=== PATIENT | male | born 1940 | race Hispanic/Latino ===

== ENCOUNTER 2017-01-18 06:10 | Day surgery (SDC) | payer BC, MEDICARE ==
[2017-01-18 06:11] VITALS: BMI 34.8
[2017-01-18] MEDS ORDERED: Phenylephrine 10 mg/ml Inj ONE (06:24)
[2017-01-18] MEDS ORDERED: Lidocaine 2% Inj (20ml) ONE (06:24)
[2017-01-18] MEDS ORDERED: Iodixanol 320 MG/ML 200 ML BOTTLE IV ONE ×2 (06:25→09:28)
[2017-01-18] MEDS ORDERED: Nitroglycerin 50mg in D5W 50 MG/250 ML BOTTLE IV ONE (06:25)
[2017-01-18] MEDS ORDERED: Iodixanol 320 MG/ML 100 ML BOTTLE IV ONE (06:25)
--- NOTE | 2017-01-18 06:29 | ED PDOC ---
Arrival/HPI - General Chief Complaint: Lower Extremity Problem/Injury Time Seen by Provider: 01/18/17 06:22 - History of Present Illness Narrative History of Present Illness (Text): 01/18/17 06:25 This is a 77 year old male with PMHx DM, ESRD on HD, PVD who came in sent by Dr. Womack for elective vascular procedure on his right lower extremity. Patient has been complaining of right leg pain for an unspecified amount of time. Patient currently denies subjective fevers, chills, chest pain, SOB, abdominal pain, dysuria. (Dayron Epps) Past Medical History - Provider Review Nursing Documentation Reviewed: Yes - Cardiac Hx Hypertension: Yes - Pulmonary Hx Chronic Obstructive Pulmonary Disease (COPD): Yes (IN THE PAST) - Neurological Hx Neurological Disorder: No - HEENT Hx HEENT Disorder: Yes Hx Cataracts: Yes Other/Comment: double vision to the left eye that is patched for saftey - Renal Hx Renal Disorder: Yes - Endocrine/Metabolic Hx Diabetes Mellitus Type 2: Yes - Hematological/Oncological Hx Blood Disorders: No - Integumentary Hx Dermatological Disorder: Yes (swollen left hand) - Musculoskeletal/Rheumatological Hx Musculoskeletal Disorders: Yes Hx Back Pain: Yes (LUMBAR) Hx Osteoarthritis: Yes - Gastrointestinal Hx Gastrointestinal Disorders: No - Genitourinary/Gynecological Hx Genitourinary Disorders: Yes Hx Prostate Problems: Yes - Psychiatric Hx Psychophysiologic Disorder: No Hx Substance Use: No - Surgical History Hx Cataract Extraction: Yes (RT.EYE) Hx Vascular Surgery: Yes (A/V FISTULA LEFT ARM) Hx Vascular Access Device: Yes (DIALYSIS ACCESS) - Anesthesia Hx Anesthesia: Yes Hx Anesthesia Reactions: No Hx Malignant Hyperthermia: No - Suicidal Assessment Feels Threatened In Home Enviroment: No Family/Social History - Physician Review Nursing Documentation Reviewed: Yes Family/Social History: No Known Family HX Smoking Status: Never Smoked Hx Alcohol Use: Yes (occasional) Hx Substance Use: No Allergies/Home Meds Allergies/Adverse Reactions: Allergies No Known Allergies Allergy (Verified 09/28/16 07:38) Home Medications: Home Meds Medication Instructions Recorded Confirmed Aspirin [Aspirin EC] 325 mg PO DAILY 01/18/17 01/18/17 Atorvastatin [Lipitor] 40 mg PO HS 01/18/17 01/18/17 Calcium Acetate [Phoslo] 667 mg PO TID 01/18/17 01/18/17 Carvedilol [Coreg] 25 mg PO BID 01/18/17 01/18/17 Cholecalciferol (Vitamin D3) 400 unit PO DAILY 01/18/17 01/18/17 [Vitamin D-400] Donepezil [Aricept] 10 mg PO HS 01/18/17 01/18/17 Hydralazine HCl 100 mg PO BID 01/18/17 01/18/17 Losartan [Cozaar] 100 mg PO DAILY 01/18/17 01/18/17 Memantine [Namenda] 5 mg PO DAILY 01/18/17 01/18/17 [place]-3 Fatty Acids/Fish Oil [Fish 1,000 mg PO BID 01/18/17 01/18/17 Oil 1,000 mg Capsule] Tamsulosin [Flomax] 0.4 mg PO DAILY 01/18/17 01/18/17 amLODIPine [Norvasc] 10 mg PO DAILY 01/18/17 01/18/17 Review of Systems - Review of Systems Constitutional: Normal. absent: Fevers Eyes: Normal ENT: Normal Respiratory: Normal. absent: SOB Cardiovascular: Normal. absent: Chest Pain Gastrointestinal: Normal. absent: Abdominal Pain Genitourinary Male: Normal. absent: Dysuria Musculoskeletal: Other (right leg pain) Skin: Normal Neurological: Normal Endocrine: Normal Hemo/Lymphatic: Normal Psychiatric: Normal Physical Exam Vital Signs Reviewed: Yes Temperature: Afebrile Blood Pressure: Normal Pulse: Bradycardic Respiratory Rate: Normal Appearance: Positive for: Comfortable Pain Distress: None Mental Status: Positive for: Alert and Oriented X 3 - Systems Exam Head: Present: Atraumatic, Normocephalic Pupils: Present: PERRL Extroacular Muscles: Present: EOMI Conjunctiva: Present: Normal Mouth: Present: Moist Mucous Membranes Neck: Present: Normal Range of Motion Respiratory/Chest: Present: Clear to Auscultation, Good Air Exchange. No: Accessory Muscle Use Cardiovascular: Present: Normal S1, S2 Abdomen: Present: Distention, Normal Bowel Sounds. No: Tenderness Upper Extremity: Present: Edema. No: NORMAL PULSES (diminished) Lower Extremity: Present: Edema (pitting), Other (amputation of left third toe) . No: CALF TENDERNESS, NORMAL PULSES (diminished) Neurological: Present: GCS=15, CN II-XII Intact Skin: Present: Warm, Dry. No: Rashes Medical Decision Making - EKG Interpretation Interpreted by ED Physician: Yes Type: 12 lead EKG ED Course and Treatment: 01/18/17 06:32 CBC, CMP, Coags, Portable CXR, EKG 01/18/17 06:52 EKG showed sinus bradycardia with rate 46 with prolonged VT interval and prolonged QTc 01/18/17 07:13 Dr. Womack contacted and requested admission to same day surgery. (Dayron Epps) - Lab Interpretations Lab Results: 01/18/17 06:30 01/18/17 06:30 Lab Results 01/18/17 06:30: Sodium 142, Potassium 4.3, Chloride 100, Carbon Dioxide 28, Anion Gap 18, BUN 59 H, Creatinine 6.1 H, Est GFR ( Amer) 11, Est GFR ( Non-Af Amer) 9, Random Glucose 140 H, Calcium 8.4, Total Bilirubin 0.6, AST 23, ALT 27, Alkaline Phosphatase 70, Total Protein 6.6, Albumin 3.8, Globulin 2.8, Albumin/Globulin Ratio 1.4 01/18/17 06:30: PT 11.7, INR 1.08, APTT 31.0 H 01/18/17 06:30: WBC 6.1 D, RBC 3.48 L, Hgb 9.8 L, Hct 30.7 L, MCV 88.2, MCH 28.2, MCHC 31.9, RDW 15.7 H, Plt Count 137, MPV 11.4 H, Gran % 64.1, Lymph % ( Auto) 23.7, [place] % (Auto) 9.7 H, Eos % (Auto) 2.0, Baso % (Auto) 0.5, Gran # 3.89, Lymph # 1.4, [place] # 0.6, Eos # 0.1, Baso # 0.03 - RAD Interpretation Radiology Orders: 01/18/17 06:23 CHEST PORTABLE [RAD] Stat 01/18/17 07:10 CAR PERIPHERAL VASCULAR ORDER [VASCULAR] Stat - Medication Orders Current Medication Orders: Ondansetron HCl (Zofran Inj) 4 mg IVP ONCE PRN PRN Reason: Nausea/Vomiting Oxycodone/Acetaminophen (Percocet 5/325 Mg Tab) 1 tab PO Q4H PRN PRN Reason: Pain, moderate (4-7) Stop: 01/21/17 12:20 Discontinued Medications Atropine Sulfate (Atropine) Confirm Administered Dose 1 mg .ROUTE .STK-MED ONE Stop: 01/18/17 06:25 Fentanyl (Fentanyl) Confirm Administered Dose 100 mcg .ROUTE .STK-MED ONE Stop: 01/18/17 07:08 Fentanyl (Fentanyl) Confirm Administered Dose 100 mcg .ROUTE .STK-MED ONE Stop: 01/18/17 07:39 Fentanyl (Fentanyl) Confirm Administered Dose 100 mcg .ROUTE .STK-MED ONE Stop: 01/18/17 09:37 Fentanyl (Fentanyl) Confirm Administered Dose 100 mcg .ROUTE .STK-MED ONE Stop: 01/18/17 11:25 Heparin Sodium (Porcine) (Heparin) Confirm Administered Dose 10,000 units .ROUTE .STK-MED ONE Stop: 01/18/17 06:25 Heparin Sodium (Porcine) (Heparin) Confirm Administered Dose 10,000 units .ROUTE .STK-MED ONE Stop: 01/18/17 10:55 Home Med (*Refrigerator Open) Confirm Administered Dose 1 unit XX .STK-MED ONE Stop: 01/18/17 13:25 Home Med (*Refrigerator Open) Confirm Administered Dose 1 unit XX .STK-MED ONE Stop: 01/18/17 13:28 Nitroglycerin/Dextrose (Nitroglycerin 50 Mg/250 Ml D5w) Confirm Administered Dose 50 mg in 250 mls @ ud IV .STK-MED ONE Stop: 01/18/17 06:26 Heparin Sodium (Porcine) (Heparin 1000 Units/500 Ml Ns) Confirm Administered Dose 1,500 mls @ ud IV .STK-MED ONE Stop: 01/18/17 06:26 Heparin Sodium (Porcine) (Heparin 1000 Units/500 Ml Ns) Confirm Administered Dose 500 mls @ ud IV .STK-MED ONE Stop: 01/18/17 08:24 Iodixanol (Visipaque 320 Mg/Ml 100 Ml) Confirm Administered Dose 200 ml IV .STK- MED ONE Stop: 01/18/17 06:26 Iodixanol (Visipaque 320 Mg/Ml 200 Ml) Confirm Administered Dose 200 ml IV .STK- MED ONE Stop: 01/18/17 06:26 Iodixanol (Visipaque 320 Mg/Ml 200 Ml) Confirm Administered Dose 200 ml IV .STK- MED ONE Stop: 01/18/17 09:29 Lidocaine HCl (Lidocaine 2% 20ml Vial) Confirm Administered Dose 20 ml .ROUTE .STK-MED ONE Stop: 01/18/17 06:25 Midazolam HCl (Versed Inj) Confirm Administered Dose 2 mg .ROUTE .STK-MED ONE Stop: 01/18/17 07:07 Midazolam HCl (Versed Inj) Confirm Administered Dose 2 mg .ROUTE .STK-MED ONE Stop: 01/18/17 07:38 Midazolam HCl (Versed Inj) Confirm Administered Dose 2 mg .ROUTE .STK-MED ONE Stop: 01/18/17 09:37 Phenylephrine HCl (Phenylephrine Inj) Confirm Administered Dose 10 mg .ROUTE .STK-MED ONE Stop: 01/18/17 06:25 Verapamil HCl (Verapamil Inj) Confirm Administered Dose 5 mg IVP .STK-MED ONE Stop: 01/18/17 11:32 Disposition/Present on Arrival - Present on Arrival Any Indicators Present on Arrival: No History of DVT/PE: No History of Uncontrolled Diabetes: Yes Urinary Catheter: No History of Decub. Ulcer: No History Surgical Site Infection Following: None - Disposition Have Diagnosis and Disposition been Completed?: Yes Disposition Time: 06:45 - Disposition Diagnosis: Peripheral vascular disease Disposition: HOME/ ROUTINE Patient Problems: Current Active Problems Problem Status Onset Peripheral vascular disease Acute Condition: FAIR
[2017-01-18] MEDS ORDERED: Sodium Chloride 0.9% 1,000 ML IV SCH (06:30)
[2017-01-18 06:59] LABS: INR 1.08 (0.93-1.08)
[2017-01-18 07:03] LABS: ALB/GLOB RATIO 1.4 (1.1-1.8); BILIRUBIN,TOTAL 0.6 mg/dL (0.2-1.3); CALCIUM 8.4 mg/dL (8.4-10.5); POTASSIUM 4.3 mmol/L (3.6-5.0); TOTAL PROTEIN 6.6 g/dL (5.8-8.3)
[2017-01-18] MEDS ORDERED: Midazolam 2 MG/2 ML VIAL ONE ×3 (07:06→09:36)
[2017-01-18 07:09] LABS: BASO # 0.03 K/mm3 (0.0-2.0); BASO % 0.5 % (0.0-3.0); EOS # 0.1 (0.0-0.7); GRAN # 3.89 (1.4-6.5); GRAN % 64.1 % (50.0-68.0); HEMATOCRIT 30.7 % (42.0-52.0); LYMPH # 1.4 (1.2-3.4); LYMPH % 23.7 % (22.0-35.0); MEAN CELL VOLUME 88.2 fl (80.0-105.0); MEAN CORPUSCULAR HEMOGLOBIN 28.2 pg (25.0-35.0); MEAN CORPUSCULAR HGB CONC 31.9 g/dl (31.0-37.0); MEAN PLATELET VOLUME 11.4 fl (7.0-11.0); MONO # 0.6 (0.1-0.6); MONO % 9.7 % (1.0-6.0); RED CELL DISTRIBUTION WIDTH 15.7 % (11.5-14.5); WHITE BLOOD COUNT 6.1 10^3/ul (4.5-11.0)
--- NOTE | 2017-01-18 08:47 | RAD ---
HISTORY: pre op COMPARISON: 05/12/2014 FINDINGS: LUNGS: No active pulmonary disease. PLEURA: No significant pleural effusion identified, no pneumothorax apparent. CARDIOVASCULAR: Mild cardiomegaly. Mild vascular congestion OSSEOUS STRUCTURES: No significant abnormalities. VISUALIZED UPPER ABDOMEN: Normal. OTHER FINDINGS: None. IMPRESSION: Mild vascular congestion
--- NOTE | 2017-01-18 10:48 | CARD ---
APPROVED REPORT EKG Measurement Heart [id number] <Conclusion> Sinus Rythm. Progressive Prolongation of [place] Interval with successive Beats Suggestive of [place] Type I Block. Septal infarct, age undetermined Prolonged QT
[2017-01-18] MEDS ORDERED: Oxycodone/Acetaminophen 5/325 mg Tab PO PRN (12:19)
[2017-01-18 14:46] VITALS: O2SAT 94
[2017-01-18 19:52] VITALS: BP 127/50; PULSE 60; RESP 20; TEMP 98
--- NOTE | 2017-01-18 21:40 | VASCULAR ---
PROCEDURE: 1. Abdominal aortogram and bilateral lower extremity runoff with right selective views. 2. Distal right posterior tibial artery angioplasty. HISTORY: Severe peripheral vascular disease. End-stage renal disease. Digital gangrene right foot. PHYSICIAN(S): Yong Womack M.D. TECHNIQUE: The relative risks and indications of the procedure were explained to the patient and consent obtained. The patient was placed supine on the arteriogram table and the left groin prepped and draped in the usual sterile fashion. Conscious sedation and monitoring were provided throughout the procedure by a nurse. Via a left common femoral artery approach, a 5 [place] sheath was placed in the left groin. Through the sheath and over a guidewire, a 5 [place] flush catheter was placed in the abdominal aorta at the level of the renal arteries and a PA DSA abdominal aortogram performed. The catheter was pulled down to the aortic bifurcation and bilateral oblique DSA pelvic arteriograms performed. Overlapping bilateral lower extremity DSA arteriograms were obtained from the inguinal ligaments to the ankles. A 0.035 angled Glidewire was advanced over the bifurcation and placed in the distal right SFA.. With some difficulty, a 6 [place] 65 cm sheath was placed in the proximal right SFA. Heparin 5000 units IV and nitroglycerin in 250 mcg aliquots were given. The short segment occlusion of the terminal right posterior tibial artery was crossed rather easily with an angled Glidewire. Unfortunately there was 2nd tandem lesion in the plantar arch that was very difficult across due to calcification and tortuosity. Various 0.014 and 0 0.018 guidewire were attempted. Finally a a 0.018 the- 18 guidewire was placed in the plantar arch. The distal left posterior tibial artery was dilated with 3.0 and 3.5 mm balloons. Plantar arch was dilated with 2.5 mm balloons. A good angiographic result was obtained and no stent was placed. Completion angiograms were obtained. The sheath was removed hemostasis obtained. The patient tolerated the procedure well. FINDINGS: Extensive vascular calcification is present. The main renal arteries are patent. The nephrograms are not opacified, consistent with the patient's history for dialysis. The infrarenal abdominal aorta is patent. Aortic bifurcation is patent. The common and external iliac arteries are very tortuous and widely patent. Slow antegrade flow is seen. The internal iliac arteries are patent bilaterally. Right lower extremity: The right common femoral artery is patent with posterior calcification.. The right profunda femoral artery is patent. The right superficial femoral artery is calcified and patent without a radiographically significant stenosis.. The right popliteal artery is calcified and patent. There is severe right trifurcation and tibial occlusive disease. The right anterior tibial and peroneal arteries are occluded proximally. The right posterior tibial artery is the predominant supply to the foot. Is a short segment occlusion of the distal right posterior tibial artery. There is severe right pedal occlusive disease. The dorsalis pedis artery is not opacified. Collaterals are present. Left lower extremity: Left common femoral artery is patent with posterior plaque.. The left profunda femoral artery is patent. The left superficial femoral artery is calcified and patent.. The left popliteal artery is patent. There is severe left tibial occlusive disease. There is a proximal take-off to the left anterior tibial artery. The left posterior tibial and peroneal arteries are occluded proximally. There is severe diffuse disease of the mid and distal left anterior tibial artery. IMPRESSION: 1.Severe bilateral tibial and pedal occlusive disease. 2. Successful terminal right posterior tibial artery angioplasty.
--- NOTE | 2017-01-19 22:19 | CON ---
DATE: 01/18/2017 REASON FOR CONSULTATION: End-stage renal disease, need for dialysis, status post angiogram requiring a lot of dye. HISTORY OF PRESENTING ILLNESS: A 77-year-old male, previously unknown to me, is seen in the same-day surgery section. The patient recently had an angiogram to evaluate for peripheral vascular disease, because of gangrene of his right toe. He was found to have severe bilateral tibial and pedal occlusive disease. He had successful terminal right posterior tibial artery angioplasty. The patient denies any chest pain, shortness of breath at present. He denies any abdominal pain. He denies any nausea, vomiting. He denies any chest tightness. His blood pressure is 145/85. He appears comfortable. PAST MEDICAL AND SURGICAL HISTORY: Longstanding hypertension; peripheral artery disease; end-stage renal disease, hemodialysis Sunday, and Sunday for the last 3 years; AV fistula, no history of diabetes. FAMILY HISTORY: Diabetes in both parents. SOCIAL HISTORY: Ex-smoker, no alcohol use, no IV drug abuse. ALLERGIES: NO KNOWN DRUG ALLERGIES. MEDICATIONS AT HOME: Hydralazine 100 b.i.d., PhosLo, losartan 100 daily, Coreg 25 b.i.d., amlodipine 10 mg daily, Namenda, Aricept, Lipitor, aspirin, Flomax. REVIEW OF SYSTEMS: All systems are reviewed, pertinent positives as mentioned in the history of presenting illness, rest unremarkable. PHYSICAL EXAMINATION: GENERAL EXAMINATION: Elderly male lying in bed in the same-day surgery. VITAL SIGNS: Blood pressure 145/54, heart rate 51, respiratory rate 18, temperature 97.2. HEENT: Normocephalic, atraumatic. NECK: Supple, no JVD. LUNGS: Bilateral equal entry, bilaterally equal expansion, no rales. CARDIAC: S1, S2, regular rhythm, no murmur, no rub. ABDOMEN: Obese, distended, soft, nontender, bowel sounds present. EXTREMITIES: Dressing of the right foot. LABORATORY DATA: WBC 6.1, hemoglobin 9.8, hematocrit 30.7, platelets 137. Sodium 142, potassium 4.3, chloride 100, CO2 of 28, BUN 59, creatinine 6.1, glucose 140, calcium 8.4, AST 23, ALT 27. ASSESSMENT AND PLAN: 1. Peripheral arterial disease, status post angiogram, status post angioplasty of the right foot. 2. Hypertension. 3. End-stage renal disease. 4. Anemia of chronic kidney disease. 5. Hypocalcemia. 6. Secondary hyperparathyroidism. PLAN: Dialysis today. The patient is on dialysis on Sunday, and Sunday. He has received a large dose of dye. Recommend dialysis prior to discharge, 4 hours, potassium 2, calcium 2.5. Ultrafiltration to drive rate. Case discussed with dialysis staff. Thank you for the courtesy of this consultation. Yadira Fox MD
== END 2017-01-18 21:30 | disposition home or self-care (01) ==
LOC: ED 06:10 → SDSVAS 07:12
PROVIDERS: ATTEND Radiology Vascular & Interventional Radiology
DX: E11.52 Type 2 diabetes mellitus with diabetic peripheral angiopathy with gangrene (principal); N18.6 End stage renal disease; I12.0 Hypertensive chronic kidney disease with stage 5 chronic kidney disease or end stage renal disease; E11.22 Type 2 diabetes mellitus with diabetic chronic kidney disease; Z99.2 Dependence on renal dialysis; Z79.82 Long term (current) use of aspirin; Z87.891 Personal history of nicotine dependence
CPT/HCPCS: 37228; 71010; 75625; 75716; 80053; 85025; 85610; 85730; 93005; 99152; 99153; 99283; C1725 ×9; C1760 ×3; C1769 ×10; C1887 ×2; C1894 ×2; J1644 ×2; J2250; J2405; J3010; J7030; Q9967

== ENCOUNTER 2017-07-04 14:22 | Inpatient (IN) | payer MEDICARE, BC ==
[2017-07-04 14:30] VITALS: BMI 40.7
--- NOTE | 2017-07-04 14:44 | ED PDOC ---
Arrival/HPI - General Chief Complaint: Shortness Of Breath Time Seen by Provider: 07/04/17 14:29 Historian: Patient, Spouse () - Critical Care Critical Care Minutes: 30 minutes - History of Present Illness Narrative History of Present Illness (Text): 07/04/17 14:25 A 77 year old male, whose past medical history includes renal failure (dialysis session T/Th/Sun, last session yesterday), diabetes, hypertension, and hyperlipidemia, is brought in by ambulance and accompanied by , presents to the emergency department for shortness of breath. Patient's reports yesterday patient began experiencing sore throat and throat pain. Due to these issues, patient had difficulty swallowing and was unable to takes his medications. Patient's states she called PMD and was directed to the ER. Patient denies any chest pain, fever, or any other complaints at this time. Patient at this time is currently unable to speak clearly. Patient on 88% room air. Respiratory team called for respiratory BiPAP. PMD: Dr. Itz Martines Symptom Onset: Sudden Symptom Course: Unchanged Past Medical History - Provider Review Nursing Documentation Reviewed: Yes - Infectious Disease Hx of Infectious Diseases: None - Cardiac Hx Cardiac Disorders: Yes Hx Hypertension: Yes - Pulmonary Hx Respiratory Disorders: Yes Hx Chronic Obstructive Pulmonary Disease (COPD): Yes (IN THE PAST) - Neurological Hx Neurological Disorder: No - HEENT Hx HEENT Disorder: Yes Hx Cataracts: Yes Other/Comment: double vision to the left eye that is patched for saftey - Renal Hx Renal Disorder: Yes Type of Dialysis Access: L upper arm Date of Last Dialysis Treatment: 07/03/17 - Endocrine/Metabolic Hx Endocrine Disorders: Yes Hx Diabetes Mellitus Type 2: Yes - Hematological/Oncological Hx Blood Disorders: No - Integumentary Hx Dermatological Disorder: Yes (swollen left hand) - Musculoskeletal/Rheumatological Hx Musculoskeletal Disorders: Yes Hx Back Pain: Yes (LUMBAR) Hx Osteoarthritis: Yes Other/Comment: neuropathy - Gastrointestinal Hx Gastrointestinal Disorders: No - Genitourinary/Gynecological Hx Genitourinary Disorders: Yes Hx Prostate Problems: Yes - Psychiatric Hx Psychophysiologic Disorder: No Hx Substance Use: No - Surgical History Hx Cataract Extraction: Yes (RT.EYE) Hx Vascular Surgery: Yes (A/V FISTULA LEFT ARM) Hx Vascular Access Device: Yes (DIALYSIS ACCESS) - Anesthesia Hx Anesthesia: Yes Hx Anesthesia Reactions: No Hx Malignant Hyperthermia: No - Suicidal Assessment Feels Threatened In Home Enviroment: No Family/Social History - Physician Review Nursing Documentation Reviewed: Yes Family/Social History: No Known Family HX Smoking Status: Never Smoked Hx Alcohol Use: Yes (occasional) Hx Substance Use: No Allergies/Home Meds Allergies/Adverse Reactions: Allergies No Known Allergies Allergy (Verified 07/04/17 14:29) Home Medications: Home Meds Medication Instructions Recorded Confirmed Aspirin [Aspirin EC] 325 mg PO DAILY 01/18/17 07/04/17 Atorvastatin [Lipitor] 40 mg PO HS 01/18/17 07/04/17 Calcium Acetate [Phoslo] 667 mg PO TID 01/18/17 07/04/17 Carvedilol [Coreg] 25 mg PO BID 01/18/17 07/04/17 Cholecalciferol (Vitamin D3) 400 unit PO DAILY 01/18/17 07/04/17 [Vitamin D-400] Donepezil [Aricept] 10 mg PO HS 01/18/17 07/04/17 Hydralazine HCl 100 mg PO BID 01/18/17 07/04/17 Losartan [Cozaar] 100 mg PO DAILY 01/18/17 07/04/17 Memantine [Namenda] 5 mg PO DAILY 01/18/17 07/04/17 [place]-3 Fatty Acids/Fish Oil [Fish 1,000 mg PO BID 01/18/17 07/04/17 Oil 1,000 mg Capsule] Tamsulosin [Flomax] 0.4 mg PO DAILY 01/18/17 07/04/17 amLODIPine [Norvasc] 10 mg PO DAILY 01/18/17 07/04/17 Insulin Glargine,Hum.rec.anlog 0 units SQ DAILY 07/04/17 07/04/17 [Luis Hilton] Review of Systems - Review of Systems Constitutional: absent: Fevers ENT: Sore Throat, Other (throat pain) Respiratory: SOB (patient's believes patient is experiencing shortness of breath) Cardiovascular: absent: Chest Pain (according to patient) Physical Exam Vital Signs Reviewed: Yes Vital Signs Temp Pulse Resp BP Pulse Ox 07/04/17 15:57 58 L 22 150/52 L 98 07/04/17 15:04 99.9 F H 07/04/17 14:37 178/100 H 07/04/17 14:32 81 20 170/100 H 88 L Blood Pressure: Hypertensive Pulse: Regular Respiratory Rate: Tachypneic Appearance: Positive for: Other (obese and drowsy) Pain Distress: None Mental Status: Positive for: Alert and Oriented X 3 - Systems Exam Mouth: Present: Normal Tounge (no tongue swelling noted) Pharnyx: Present: Normal. No: TONSILS ENLARGED, Peritonsilar Swelling, Other ( no visible swelling noted) Respiratory/Chest: Present: Rales (bilaterally), Rhonchi (bilaterally) Lower Extremity: No: Edema Skin: Present: Warm Medical Decision Making ED Course and Treatment: 07/04/17 14:30 Impression: 77 year old male brought in by ambulance for shortness of breath. Physical exam shows patient is tachypneic, obese and drowsy; rales and rhonchi bilaterally; negative lower extremity edema; normal throat exam (no visible swelling noted); normal tongue (no swelling noted). Differential Diagnosis included but are not limited to: CHF vs. Renal Fluid Overflow rule out Pneumonia vs. Influenza. Plan: -- EKG -- Chest X-ray -- Labs -- Lasix -- Venous Blood Gas -- Blood Culture -- Urine Culture -- Urinalysis -- Rapid Flu Test -- BiPAP Procedure -- Nasal Cannula O2 -- Reassess and disposition Prior Visits: Notes and results from previous visits were reviewed. Patient was last seen in the emergency department on Progress Notes: EKG: Ordered, reviewed, and independently interpreted the EKG. Rate : 69 BPM Rhythm : NSR Interpretation : PACs, Q-wave inferior leads. Comparison : No previous EKG for comparison. CXR Patient Name / ID : JULIENNE ANDERSON N / [id number] LUNGS: There is a dense alveolar infiltrate in the right lower lobe. There is also vascular congestion IMPRESSION: Right lower lobe pneumonia 07/04/17 16:00 Patient improving with BiPAP but still having symptoms. CXR showed RLL PNA and some vascular congestion. Treated with broad spectrum antibiotics with Zosyn and Vancomycin IV. Case discussed with Dr. Cleaning ICU, who will accept the patient to his service. CT head ordered that he will follow up. CT will be done prior to arrival to ICU. Case discussed with Dr. Whitman who recommended Dr. Duran for Cardiology. Dr. Fox was consulted for Renal as well. She came to evaluate patient and stated most likely will need DUF (dry ultra filtration). Family is at bedside and I explained plan for admission with them to the ICU. Patient was explained this as well. He is easily arousable to voice commands and tells me he is feeling better with BiPAP. - Critical Care Critical Care Minutes: 60 minutes - Lab Interpretations Lab Results: 07/04/17 14:30 07/04/17 14:30 Lab Results 07/04/17 15:45: pCO2 42, pO2 135.0 H, HCO3 30.6 H, ABG pH 7.47 H, ABG Total CO2 31.9 H, ABG O2 Saturation 97.9, ABG O2 Content 14.9 L, ABG Base Excess 6.3 H, ABG Hemoglobin 10.9 L, ABG Carboxyhemoglobin 1.5, POC ABG HHb (Measured) 2.1, ABG Methemoglobin 0.7, ABG O2 Capacity 15.2 L, Hgb O2 Saturation 95.7, FiO2 40.0 07/04/17 14:45: Influenza Typ A,B (EIA) Negative for flu a/b 07/04/17 14:32: POC Glucose (mg/dL) 85 07/04/17 14:30: Sodium 145, Chloride 99, Potassium 4.3, Carbon Dioxide 29, Anion Gap 21 H, BUN 42 H, Creatinine 5.7 H, Est GFR ( Amer) 12, Est GFR ( Non-Af Amer) 10, Random Glucose 100, Calcium 9.3, Phosphorus 3.5, Magnesium 2.1 , Total Bilirubin 0.9, AST 33, ALT 29, Alkaline Phosphatase 87, Lactate Dehydrogenase 592, Total Creatine Kinase 481 H, CK-MB (CK-2) 2.7, CK-MB (CK-2) % Cancelled, Troponin I 0.07 D, NT-Pro-B Natriuret Pep 24949 H, Total Protein 7.6, Albumin 4.3, Globulin 3.4, Albumin/Globulin Ratio 1.3 07/04/17 14:30: pO2 62 H, VBG pH 7.43, VBG pCO2 48.0, VBG HCO3 31.9 H, VBG Total CO2 33.4 H, VBG O2 Sat (Calc) 92.3 H, VBG Base Excess 6.4 H, VBG Potassium 4.3, Sodium 139.0, Chloride 102.0, Glucose 100, Lactate 1.2, FiO2 21.0 , Venous Blood Potassium 4.3 07/04/17 14:30: PT 13.3 H, INR 1.16 H, APTT 34.8 07/04/17 14:30: WBC 13.3 H D, RBC 4.33, Hgb 12.0 L D, Hct 38.5 L, MCV 88.9, MCH 27.7, MCHC 31.2, RDW 17.4 H, Plt Count 148, MPV 12.2 H, Gran % 85.9 H, Lymph % ( Auto) 7.4 L, [place] % (Auto) 6.5 H, Eos % (Auto) 0.0 L, Baso % (Auto) 0.2, Gran # 11.43 H, Lymph # (Auto) 1.0 L, [place] # (Auto) 0.9 H, Eos # (Auto) 0.0, Baso # ( Auto) 0.02 - RAD Interpretation Radiology Orders: 07/04/17 14:30 CHEST PORTABLE [RAD] Stat - Medication Orders Current Medication Orders: Acetylcysteine (Acetylcysteine 20%) 4 ml IH [id number] JERE Amlodipine Besylate (Norvasc) 10 mg PO DAILY JERE Aspirin (Ecotrin) 325 mg PO DAILY JERE Atorvastatin Calcium (Lipitor) 40 mg PO HS JERE Calcium Acetate (Phoslo) 667 mg PO TID JERE Carvedilol (Coreg) 25 mg PO BID JERE Donepezil HCl (Aricept) 10 mg PO HS JERE Heparin Sodium (Porcine) (Heparin) 5,000 units SC Q8H JERE PRN Reason: Protocol Last Admin: 07/04/17 16:58 Dose: 5,000 units Subcutaneous Administrations Document 07/04/17 16:58 [email or web address] (Rec: 07/04/17 16:58 [email or web address] [id number]) Injection Site MAR Injection Site Right Abdomen Charges for Administration # of Subcutaneous Administrations 1 Vancomycin HCl (Vancomycin 1gm) 1 gm in 250 mls @ 167 mls/hr IVPB STAT STA PRN Reason: Protocol Stop: 07/04/17 17:18 Nitroglycerin/Dextrose (Nitroglycerin 50 Mg/250 Ml D5w) 50 mg in 250 mls @ 1.5 mls/hr IV .Q24H PRN; Protocol; 5 MCG/MIN PRN Reason: BPS above 140 Doxycycline Hyclate 100 mg/ (Sodium Chloride) 100 mls @ 100 mls/hr IVPB Q12 JERE PRN Reason: Protocol Insulin Human Lispro (Humalog Low) 0 units SC AC JERE PRN Reason: Protocol Levalbuterol HCl (Xopenex) 0.63 mg IH [id number] JERE Losartan Potassium (Cozaar) 100 mg PO DAILY JERE Memantine (Namenda) 5 mg PO DAILY JERE Methylprednisolone (Solu-Medrol) 20 mg IVP Q12 JERE Non-Formulary Medication (Hydralazine Hcl [Hydralazine Hcl]) 100 mg PO BID JERE Non-Formulary Medication ([place]-3 Fatty Acids/Fish Oil [Fish Oil 1,000 Mg Capsule]) 1,000 mg PO BID JERE Pantoprazole Sodium (Protonix Inj) 40 mg IVP DAILY JERE Tamsulosin HCl (Flomax) 0.4 mg PO DAILY [facility] Vitamin D (Vitamin D 400 Intl Units Tab) intlu PO DAILY JERE Discontinued Medications Furosemide (Lasix) 40 mg IVP STAT STA Stop: 07/04/17 14:30 Last Admin: 07/04/17 14:37 Dose: 40 mg MAR Blood Pressure Document 07/04/17 14:37 [facility] (Rec: 07/04/17 14:38 [id number] Blood Pressure Blood Pressure (100/60-150/90) 178/100 IVP Administration Document 07/04/17 14:37 [facility] (Rec: 07/04/17 14:38 [id number]) Charges for Administration # of IVP Administrations 1 Piperacillin Sod/Tazobactam Sod (Zosyn 4.5 Gm In Ns 100ml) 4.5 gm in 100 mls @ 200 mls/hr IVPB STAT STA PRN Reason: Protocol Stop: 07/04/17 15:42 Last Admin: 07/04/17 16:58 Dose: 200 mls/hr eMAR Start Stop Document 07/04/17 16:58 [email or web address] (Rec: 07/04/17 16:58 [email or web address] [id number]) Intravenous Solution Start Date 02/28/18 Start Time 16:58 End Date 07/04/17 Nitroglycerin (Nitro-Bid 2% Oint) 1 ea TOP STAT STA Stop: 07/04/17 14:46 Last Admin: 07/04/17 14:50 Dose: 1 ea - Scribe Statement The provider has reviewed the documentation as recorded by the Jorgitoibe Yuli Patel Provider Scribe Attestation: All medical record entries made by the Scribe were at my direction and personally dictated by me. I have reviewed the chart and agree that the record accurately reflects my personal performance of the history, physical exam, medical decision making, and the department course for this patient. I have also personally directed, reviewed, and agree with the discharge instructions and disposition. Disposition/Present on Arrival - Present on Arrival Any Indicators Present on Arrival: Yes History of DVT/PE: No History of Uncontrolled Diabetes: Yes Urinary Catheter: No History of Decub. Ulcer: No History Surgical Site Infection Following: None - Disposition Have Diagnosis and Disposition been Completed?: Yes Diagnosis: End stage renal disease, Pneumonia, CHF (congestive heart failure) Disposition Time: 16:00 Patient Plan: Admission, ICU Condition: CRITICAL
[2017-07-04 14:45] LABS: BASO # 0.02 K/mm3 (0.0-2.0); BASO % 0.2 % (0.0-3.0); GRAN # 11.43 (1.4-6.5); GRAN % 85.9 % (50.0-68.0); LYMPH % 7.4 % (22.0-35.0); MEAN CELL VOLUME 88.9 fl (80.0-105.0); MEAN CORPUSCULAR HEMOGLOBIN 27.7 pg (25.0-35.0); MEAN CORPUSCULAR HGB CONC 31.2 g/dl (31.0-37.0); MEAN PLATELET VOLUME 12.2 fl (7.0-11.0); MONO # 0.9 (0.1-0.6); MONO % 6.5 % (1.0-6.0); RBC 4.33 10^6/uL (3.5-6.1); RED CELL DISTRIBUTION WIDTH 17.4 % (11.5-14.5); WHITE BLOOD COUNT 13.3 10^3/ul (4.5-11.0)
[2017-07-04] MEDS ORDERED: Nitroglycerin 2% Ointment Foilpak UD TOP STA (14:45)
[2017-07-04 14:46] LABS: VENOUS BLOOD GAS BASE EXCESS 6.4 mmol/L (0.0-2.0); VENOUS BLOOD GAS PO2 62 mm/Hg (30-55); VENOUS BLOOD PH 7.43 (7.32-7.43)
[2017-07-04 14:56] LABS: INR 1.16 (0.93-1.08); PARTIAL THROMBOPLASTIN TIME 34.8 Seconds (25.1-36.5); PROTHROMBIN TIME 13.3 SECONDS (9.4-12.5)
[2017-07-04 15:09] LABS: TROPONIN I 0.07 ng/mL
--- NOTE | 2017-07-04 15:10 | RAD ---
HISTORY: sob and cough r/o pna COMPARISON: 01/18/2017 FINDINGS: LUNGS: There is a dense alveolar infiltrate in the right lower lobe. There is also vascular congestion PLEURA: No significant pleural effusion identified, no pneumothorax apparent. CARDIOVASCULAR: Normal. OSSEOUS STRUCTURES: No significant abnormalities. VISUALIZED UPPER ABDOMEN: Normal. OTHER FINDINGS: None. IMPRESSION: Right lower lobe pneumonia
[2017-07-04] MEDS ORDERED: Piperacill/Tazo 4.5gm in NS 4.5 GM/100 ML BAG IVPB STA (15:13)
[2017-07-04 15:34] LABS: ALB/GLOB RATIO 1.3 (1.1-1.8); ALBUMIN 4.3 g/dL (3.0-4.8); CALCIUM 9.3 mg/dL (8.4-10.5); MAGNESIUM 2.1 mg/dL (1.7-2.2)
[2017-07-04 15:39] LABS: CK-MB 2.7 ng/mL (0.0-3.6)
[2017-07-04] MEDS ORDERED: Vancomycin 1gm in NS 250ml 1 GM/250 ML BAG IVPB STA (15:49)
[2017-07-04 15:51] LABS: ARTERIAL BLOOD GAS HCO3 30.6 mmol/L (21-28); ARTERIAL BLOOD GAS HEMOGLOBIN 10.9 g/dL (11.7-17.4); ARTERIAL BLOOD GAS O2 CAPACITY 15.2 mL/dl (16-24); ARTERIAL BLOOD GAS O2 CONTENT 14.9 ML/dl (15-23); ARTERIAL BLOOD GAS O2 SAT 97.9 % (95-98); ARTERIAL BLOOD GAS PCO2 42 mm/Hg (35-45); ARTERIAL BLOOD GAS PH 7.47 (7.35-7.45); ARTERIAL BLOOD GAS TCO2 31.9 mmol.L (22-28)
[2017-07-04] MEDS ORDERED: Nitroglycerin 50mg in D5W 50 MG/250 ML BOTTLE IV PRN (15:58)
[2017-07-04 17:02] LABS: ARTERIAL BLOOD GAS HCO3 30.5 mmol/L (21-28); ARTERIAL BLOOD GAS O2 SAT 96.7 % (95-98); ARTERIAL BLOOD GAS PCO2 40 mm/Hg (35-45); ARTERIAL BLOOD GAS PH 7.49 (7.35-7.45); ARTERIAL BLOOD GAS TCO2 31.7 mmol.L (22-28)
[2017-07-04] MEDS ORDERED: Non Formulary Medication (Hydralazine Hcl [Hydralazine Hcl] 100 MG) PO SCH (18:00)
[2017-07-04] MEDS ORDERED: Oseltamivir 6 MG/ML PO ONE (18:15)
--- NOTE | 2017-07-04 18:56 | CT ---
PROCEDURE: CT HEAD WITHOUT CONTRAST. HISTORY: ams r/o cva COMPARISON: None available. TECHNIQUE: Axial computed tomography images were obtained through the head/brain without intravenous contrast. Radiation dose: Total exam DLP = 1049.93 mGy-cm. This CT exam was performed using one or more of the following dose reduction techniques: Automated exposure control, adjustment of the mA and/or kV according to patient size, and/or use of iterative reconstruction technique. FINDINGS: HEMORRHAGE: No intracranial hemorrhage. BRAIN: No mass effect or edema. Probable old infarct involving left basal ganglia and will radiata. No evidence of acute infarct. Moderate periventricular white matter lucency consistent with chronic microvascular ischemic change. Mild diffuse atrophy VENTRICLES: Unremarkable. No hydrocephalus. CALVARIUM: Unremarkable. PARANASAL SINUSES: Unremarkable as visualized. No significant inflammatory changes. MASTOID AIR CELLS: Unremarkable as visualized. No inflammatory changes. OTHER FINDINGS: None. IMPRESSION: No evidence of acute infarct. No intracranial mass or hemorrhage. 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 Age related atrophy and chronic white matter ischemic change.
--- NOTE | 2017-07-04 19:06 | CT ---
PROCEDURE: CT Chest without contrast HISTORY: PNEUMONIA/CHF COMPARISON: None. TECHNIQUE: Contiguous axial images were obtained through the chest without intravenous contrast enhancement. Sagittal and coronal reconstructions were performed. Radiation dose (DLP): 852.54 mGy-cm. This CT exam was performed using one or more of the following dose reduction techniques: Automated exposure control, adjustment of the mA and/or kV according to patient size, and/or use of iterative reconstruction technique. FINDINGS: LUNGS: Extensive centrilobular pulmonary emphysema. Extensive right lower lobe consolidation. Patchy right middle lobe consolidation. There is probable subsegmental atelectasis in the left lower lobe. No pulmonary mass identified. MEDIASTINUM: Unremarkable thoracic aorta. No aneurysm. Cardiomegaly. Mitral annular calcification. No pericardial effusion. Dilated main pulmonary artery to approximately 3.4 cm diameter. No lymphadenopathy. PLEURA: Nonspecific dependent pleural thickening both lower lobes. No pleural effusion or pneumothorax. BONES: Mild thoracic dextroscoliosis. No acute fracture. UPPER ABDOMEN: Grossly unremarkable. OTHER FINDINGS: None. IMPRESSION: Multi lobar infiltrates, most extensive in the right lower lobe. Extensive centrilobular pulmonary emphysema. Cardiomegaly.
--- NOTE | 2017-07-04 19:19 | CP.PCM.HP ---
History of Present Illness - History of Present Illness History of Present Illness: Chief Complaint: Dysphagia, sore throat, cough HPI: Patient is a 77 yo man with PMH of ESRD on Sunday//Sunday hemodialysis, IDDM, CVA with mild expressive aphasia?, presenting to ED via EMS for respiratory distress. History obtained per the pts daughter secondary to respiratory distress. Patient was complaining of difficulty swallowing, sore throat, and cough worsening for two days. Yesterday evening, she stated patient said his throat was sore to the point he didn't want to eat dinner. He has a hx of mild chronic cough for years; however, 3 weeks ago he had a mild URI with productive cough. His was being treated for URI with antibiotics at that time. He took some cough syrup for this and had good resolution of symptoms 2 weeks ago. Patient's decided to leave work early to check on him, which is when she found him in bed shaking due to chills. She called EMS. EMS came to house, patient's O2 saturation was 77%, placed on nonrebreather, O2 sat went to 88% and was brought to the ED where he was placed on BiPAP which brought his O2 sat to ~94%. The pts daughter denies any recent issues with confusion, falls, headache, chest pain, dyspnea, or fever. No changes in his recent functional status. The pt has been on schedule with dialysis. 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 No EtOH. Lives with . FHx: hx of diabetes in mother and father. Daughter states that patient had kidney issues since he was a child. CT neck: Mild diffuse thickening of epiglottis and aryepiglottic folds, prominent pharyngeal vessel, cervical adenopathy, sinus disease CT chest:multi lobar infiltrates mainly in right lower lobe, extensive centrilobular pulmonary emphysema. cardiomegaly CT head:no acute infarct, probably old infarct of left basal ganglia/will radiata. Age related atrophy and chronic white matter ischemic change PEx: General: ill-appearing man with respiratory distress. On Bipap machine. HOB at 20 degrees. AOX3. Following commands. HEENT: normocephalic, atraumatic. No perioral cyanosis. Raspy voice. Mouth: tongue protrudes midline. Edentulous. No drooling noted. Marked marcoglossia. 1x3cm white plaque over L lateral aspect of tongue. Tongue hyperkeratotic in appearance. Pharynx: marked soft tissue swelling and hyperemia. Uvula swelling. Palette symmetrical. Unable to visualize posterior oropharynx. Neck: Trachea midline. Marked inspiratory and expiratory stridor on auscultation. Lungs: No accessory m. use. Transmitter breath sounds and stridor. Breath sounds diminished at bases bilaterally. Rhonchi present at R lung base. Diminished breath sounds at L lung base. Cardiac: Distant heart sounds. Abdomen: Abdominal diastasis noted. Abdomen soft, NT, ND. Normal active bowel sounds. Lower extremity: R DP pulse not palpable. Faint DP pulse palpated on L. 2+ pitting edema over LEs bilaterally. MSK: L foot s/p amputation of 3rd digit. Bandages present over chronic wounds 2nd and 4th digits. Neuro: pt follows commands. Moves extremities across midline spontaneously. Able to reposition himself in bed without difficulty. Present on Admission - Present on Admission Any Indicators Present on Admission: No Review of Systems - Review of Systems Review of Systems: Limited as patient is having difficult speaking Past Patient History - Infectious Disease Hx of Infectious Diseases: None - Past Medical History & Family History Past Medical History?: Yes - Past Social History Smoking Status: Never Smoked - CARDIAC Hx Cardiac Disorders: Yes Hx Hypertension: Yes - PULMONARY Hx Respiratory Disorders: Yes Hx Chronic Obstructive Pulmonary Disease (COPD): Yes (IN THE PAST) - NEUROLOGICAL Hx Neurological Disorder: No - HEENT Hx HEENT Problems: Yes Hx Cataracts: Yes Other/Comment: double vision to the left eye that is patched for saftey - RENAL Hx Chronic Kidney Disease: Yes Type of Dialysis Access: L upper arm Date of Last Dialysis Treatment: 07/03/17 - ENDOCRINE/METABOLIC Hx Endocrine Disorders: Yes Hx Diabetes Mellitus Type 2: Yes - HEMATOLOGICAL/ONCOLOGICAL Hx Blood Disorders: No - INTEGUMENTARY Hx Dermatological Problems: Yes (swollen left hand) - MUSCULOSKELETAL/RHEUMATOLOGICAL Hx Musculoskeletal Disorders: Yes Hx Back Pain: Yes (LUMBAR) Hx Osteoarthritis: Yes Other/Comment: neuropathy - GASTROINTESTINAL Hx Gastrointestinal Disorders: No - GENITOURINARY/GYNECOLOGICAL Hx Genitourinary Disorders: Yes Hx Prostate Problems: Yes - PSYCHIATRIC Hx Psychophysiologic Disorder: No Hx Substance Use: No - SURGICAL HISTORY Hx Cataract Extraction: Yes (RT.EYE) Hx Vascular Surgery: Yes (A/V FISTULA LEFT ARM) Hx Vascular Access Device: Yes (DIALYSIS ACCESS) - ANESTHESIA Hx Anesthesia: Yes Hx Anesthesia Reactions: No Hx Malignant Hyperthermia: No Meds Allergies/Adverse Reactions: Allergies Allergy/AdvReac Type Severity Reaction Status Date / Time No Known Allergies Allergy Verified 07/04/17 14:29 Results - Vital Signs Recent Vital Signs: Last Vital Signs Temp 99.9 F H 07/04/17 15:04 Pulse 62 07/04/17 18:20 Resp 18 07/04/17 18:20 BP 150/52 L 07/04/17 15:57 Pulse Ox 99 07/04/17 18:20 - Labs Result Diagrams: 07/05/17 05:30 07/04/17 14:30 Labs: Laboratory Results - last 24 hr 07/04/17 16:57 pCO2 40 pO2 82.0 HCO3 30.5 H ABG pH 7.49 H ABG Total CO2 31.7 H ABG O2 Saturation 96.7 ABG Base Excess 6.6 H ABG Potassium 4.0 Sodium 140.0 Chloride 106.0 Glucose 100 Lactate 0.8 FiO2 40.0 Pressure Support 5 Inspiratory BiPAP 10 Arterial Blood Potassium 4.0 Assessment & Plan - Assessment and Plan (Free Text) Assessment: Patient is a 77 yo man with PMH of ESRD on Sunday//Sunday hemodialysis, IDDM, CVA with mild expressive aphasia?, presenting to ED via EMS for respiratory distress found to have pneumonia and epiglottic/aryepiglottic swelling. Plan: Dyspnea secondary to epiglottic thickening -Patient currently on high flow oxygen with O2 sat ~95% -Xopenex, mucomyst -Admitted to ICU; doxycycline started as well as methlyprednisolone, nitroglycerin -Infectious disease consulted, merrem started -ENT consulted -Strep pneumo,legionella, ordered -MRSA screen -Urine, blood, sputum cultures ordered -Echocardiogram ordered -Aspiration precautions -Speech and swallow eval IDDM -Consistent carb diet -ISS-low -fingerstick qHS HTN -continue home Cozaar and norvasc -hydralazine Hyperlipidemia -continue lipitor ESRD -Nephrology consulted -continue calcium acetate Dementia -continue memantine, donepezil BPH -continue flomax DVT/GI ppx: Heparin/Protonix Case discussed and reviewed with Dr. Whitman
--- NOTE | 2017-07-04 19:54 | CT ---
EXAM: CT Neck Without Intravenous Contrast EXAM DATE/TIME: 07/04/2017 6:16 PM CLINICAL HISTORY: 77 years old, male; Signs and symptoms; Dysphagia / difficulty swallowing; Additional info: Dysphagia, hypoxia TECHNIQUE: Axial computed tomography images of the neck without intravenous contrast. All CT scans at this facility use one or more dose reduction techniques, viz.: automated exposure control; ma/kV adjustment per patient size (including targeted exams where dose is matched to indication; i.e. head); or iterative reconstruction technique. Coronal and sagittal reformatted images were created and reviewed. COMPARISON: There are no prior studies for comparison. FINDINGS: Brain: No acute abnormalities are seen in visualized portion of the brain. There are atrophic changes. Sinuses: There is partial opacification of the right maxillary sinus. There is minimal mucoperiosteal thickening in the left maxillary sinus. There is mucoperiosteal thickening in the frontal sinuses. Ears and mastoids: Middle ears and mastoids are unremarkable Orbits: There are no acute orbital abnormalities. Dental: There is streak artifact from dental fillings. Tonsils and adenoids: There is mild prominence of the pharyngeal tonsils. Adenoids and lingual tonsils are unremarkable. Deep facial spaces: Parapharyngeal spaces are symmetric. There is no retropharyngeal soft tissue swelling. Salivary glands: Parotid and submandibular glands are unremarkable. Airway: Motion limits evaluation of the airway. There is mucosal debris in the airway. There is no upper airway obstruction. There is thickening of the epiglottis and aryepiglottic folds. Subglottic trachea is unremarkable Thyroid: Thyroid is not optimally demonstrated. Vascular: There are vascular calcifications. Nodes: There is shotty cervical adenopathy bilaterally. Lung apices: There are centrilobular emphysematous changes at the lung apices. Motion limits evaluation. Bony structures: Bony structures are osteopenic. There degenerative changes in the spine. No acute fractures are visualized. IMPRESSION: Mild diffuse thickening of the epiglottis and aryepiglottic folds; prominent pharyngeal vessel; shotty cervical adenopathy; sinus disease Additional nonemergent findings as described above.
[2017-07-04] MEDS: Acetylcysteine 20% Inhal Soln (4ml) IH SCH (21:31)
[2017-07-04] MEDS: Levalbuterol 0.63 MG/3 ML Inhal Soln UD IH SCH (21:32)
[2017-07-04] MEDS ORDERED: Meropenem 500 MG in Sodium Chloride 0.9% 50 ML IVPB SCH (22:00)
[2017-07-04] MEDS: Aspirin 325 mg EC Tablets PO SCH (22:36)
[2017-07-04] MEDS: MethylPREDNISolone 40 mg Vial IVP SCH (22:36)
--- NOTE | 2017-07-05 02:44 | CON ---
DATE: 07/04/2017 HISTORY OF PRESENT ILLNESS: This is a 77-year-old gentleman with history of hypertension, diabetes, and end-stage renal disease on dialysis three times a week who presented with 2-day history of cough, chills, rigors, and increased difficulty breathing. As per , patient had some sputum with his cough which was [id number] amount and was beige in color. Even though patient did have some "shakiness," denies that the patient had a fever. Patient had dialysis session yesterday, which according to , he tolerated well in the morning. His mental status also continued to deteriorate and he was brought into ER for further management and evaluation. No fever, no chills, no sweats. No nausea, no vomiting, no constipation. PAST MEDICAL HISTORY: Hypertension, diabetes, end-stage renal disease on dialysis. ALLERGIES: NKDA. FAMILY HISTORY: Noncontributory. SOCIAL HISTORY: Patient is ex-smoker. He quit about 30 years ago, however, used to smoke for many years prior to that. No alcohol or illicit drug abuse. MEDICATION AT HOME: Norvasc, Flomax, Namenda, losartan, hydralazine, Aricept, vitamin D, Coreg, PhosLo, Lipitor, aspirin. REVIEW OF SYSTEMS: Review of 12-organ system other than mentioned in history of present illness is negative. PHYSICAL EXAMINATION: VITAL SIGNS: Blood pressure 150/52, heart rate 58 (beta-blockers were held), temperature 99.9, blood pressure initially 178/100 but then dropped down to 150/52. Patient is on BiPAP 10/5 with FiO2 40% with oxygen saturation 94%. HEENT: Head and neck atraumatic. LUNGS: Clear to auscultation bilaterally except for right basilar area where a few crackles were heard on auscultation. No wheezes, no rhonchi. ABDOMEN: Soft, nontender, nondistended. HEART: Regular rate and rhythm. S1, S2 distant. MUSCULOSKELETAL: Trace bilateral pedal and ankle edema. NEUROLOGICAL: Patient was seen moving all extremities spontaneously. SKIN: Moist. PSYCHIATRIC: Patient is lethargic, however, easily arousable. LABORATORY DATA: WBC 13.3, hemoglobin 12, platelet count 148. Sodium 145, potassium 4.3, chloride 99, carbon dioxide 29, BUN 42, creatinine 5.7, glucose 85. ProBNP 22,200. Troponin 0.07. CPK 481. AST 33, ALT 29, total bilirubin 0.9, phosphorus 3.5, magnesium 2.1. INR 1.16. Influenza rapid test is negative. ABG showed 7.47/42/135 (on FiO2 60%, since then FiO2 went down to 40%). Lactic acid 1.2, glucose 100. Chest x-ray showed dense right lower lobe infiltrate, mild vascular congestion, which appears to be at baseline compared with the chest x-ray performed in January last year. EKG, normal sinus rhythm. ASSESSMENT AND PLAN: This is a 77-year-old gentleman with what appears to be severe community-acquired pneumonia in the setting of underlying diabetes, hypertension, and end-stage renal disease and hypoxemic respiratory insufficiency (oxygen saturation 88% on room air). At present time, I will switch him from BiPAP to high-flow oxygen to maintain oxygen saturation more than 90% and I will continue with oxygen flow of 60 liters per minute. Patient on broad-spectrum antibiotics including vancomycin, doxycycline, and Zosyn. As the patient has severe community-acquired pneumonia, I will start him on low-dose steroids, Solu-Medrol 4 mg IV q.12. I will also order CRP. We will see if patient has some urine for Legionella and streptococcal urine antigen analysis. We will send blood culture and procalcitonin. Nephrology consult and ID consult were requested. We will continue with deep venous thrombosis and gastrointestinal prophylaxis. Head of bed elevated 135 degrees. Most likely, patient's altered mental status relates to toxic metabolic encephalopathy (septic encephalopathy). However, patient most likely has vasculopathy due to his hypertension and diabetes as well as history of previous stroke, so I will order CAT scan of the head to rule out acute intracranial pathology as well. Patient will be going to intensive care unit for further management and monitoring. Low threshold for intubation. Mo Cleaning MD
[2017-07-05] MEDS: Levalbuterol 0.63 MG/3 ML Inhal Soln UD IH SCH ×4 (03:11→20:13)
[2017-07-05] MEDS: Acetylcysteine 20% Inhal Soln (4ml) IH SCH ×4 (03:11→20:13)
--- NOTE | 2017-07-05 04:40 | HP ---
DATE OF EXAM: 07/04/2017 HISTORY OF PRESENT ILLNESS: The patient is a 77-year-old male brought into the [facility] emergency room by EMS, [facility], for shortness of breath for 2-3 days and cough and cold, congestion for 2-3 days according to the patient's . The patient was found to be hypoxic by the EMS on room air with O2 sat of 77%. The patient was placed on non-rebreather mask. Pulse ox went to 88% in the emergency room. The patient was complaining of shortness of breath and coughing for the last 2-3 days. According to the ER physician evaluation, the patient was brought into the [facility] emergency room by the ambulance, accompanied by the , complaining of shortness of breath with sore throat, cough, throat pain, difficulty swallowing, coughing and shortness of breath. REVIEW OF SYSTEMS: A 13-system review was done, pertinent positives and negatives dictated above. CODE STATUS: Full code. LIVING WILL ADVANCE DIRECTIVE: None. ALLERGIES: NONE. Height is 5 feet 7 inches. Weight is 260. BMI is 41. HOME MEDICATION: Norvasc 10 mg daily, Flomax 0.4 mg daily, omega 3 fatty acids 1000 mg twice a day, Namenda 5 mg daily, Cozaar 100 mg daily, Toujeo SoloStar subcu daily - dose unknown, hydralazine 100 mg twice a day, Aricept 10 mg daily, vitamin D 400 units daily, Coreg 25 mg twice a day, PhosLo 667 mg three times a day, Lipitor 40 mg daily, aspirin 325 mg daily. SOCIAL HISTORY: Positive for social alcohol use. Denies alcohol. Denies any communicable transmissible disease. OCCUPATIONAL HISTORY: Disabled male. FAMILY HISTORY: Positive for diabetes, hypertension. PAST MEDICAL AND SURGICAL HISTORY: History of hypertension, history of peripheral vascular disease, history of end-stage renal disease - hemodialysis dependent with left upper extremity AV fistula, history of hyperlipidemia, history of insulin-requiring diabetes mellitus, history of prostatic hypertrophy, history of bilateral cataract surgery, history of lumbar spine herniated disc, history of occasional alcohol use, history of chronic obstructive pulmonary disease, history of left foot third toe amputation, history of dementia, history of hypovitaminosis D, history of secondary hyperparathyroidism, history of hypercholesterolemia, nonhealing left foot diabetic ulceration, history of gangrene, history of anemia, history of uncontrolled diabetes mellitus with hyperglycemia, history of left foot Escherichia coli vancomycin-resistant Enterococcus faecium, coagulase-negative Staphylococcus left foot toes and possible osteomyelitis, history of Pseudomonas aeruginosa urinary tract infection, 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 Yong Womack in 01/2017, history of cardiomegaly, history of bilateral tibial occlusive disease, history of subtle bilateral superficial femoral artery occlusive disease, history of obesity with elevated body mass index, history of 69% proximal right internal carotid artery stenosis, history of less than 40% stenosis of the left carotid system, history of atherosclerotic calcified noncalcified plaque of the right proximal internal carotid artery, distal right posterior tibial artery angioplasty, history of severe peripheral vascular disease, history of severe bilateral tibial and pedal occlusive disease, history of Mobitz type 1 block, history of age indeterminate septal infarct, history of incomplete right bundle-branch block, history of hypertriglyceridemia, left foot fifth toe ischemic ulceration, history of left hand fifth finger ischemic ulceration, history of left upper extremity brachial to brachial artery bypass using reverse cephalic with cephalic vein, history of revision of the AV fistula of the left upper extremity, history of left upper extremity brachiobasilic fistula. REVIEW OF SYSTEMS: A 13-system review was positive for sore throat, coughing, shortness of breath, congestion. The patient was seen in the stretcher on BiPAP, tachypneic. The patient's blood pressure was elevated. The patient appears to be obese with elevated body mass index and drowsy, but arousable. PHYSICAL EXAMINATION: GENERAL: The patient is in the emergency room, bed 7. Upon arrival, the patient was placed on BiPAP by the EMS and by the ER physician. The patient was seen in the emergency room by the ER physician. The patient was seen lying in the stretcher. The patient is on BiPAP presently. The patient has a left eye patch for diplopia and cataract. The patient has a left upper extremity AV fistula. VITAL SIGNS: The patient's T-max is 99.9. Telemetry shows sinus rhythm, heart rate 81, 62, blood pressure initially 170/100, 178/100, 150/52, respirations 18-23, BiPAP O2 sat is 99%. HEENT: Head examination normocephalic, atraumatic. HEENT examination shows positive pharyngeal erythema, tonsillar enlargement noted. [place] conjunctivae, anicteric sclerae. No oropharyngeal lesion. Questionable soft carotid bruit. CHEST: Kyphosis. LUNGS: Shows positive crepitus, crackles, rhonchi, occasional wheezing. CARDIOVASCULAR: Shows S1, S2, regular rhythm. Positive systolic murmur, left sternal border, right second intercostal space, left second intercostal space. ABDOMEN: Soft. Positive bowel sound. GENITALIA: Male. EXTREMITIES: Shows positive left upper extremity AV fistula, positive thrill. Positive left eye patch noted. The patient has some swelling of the left hand. Lower extremity examination shows trace swelling, no pitting edema. Positive left foot third toe amputation noted. DIAGNOSTICS: WBC 13.3, hemoglobin/hematocrit 12 and 38.5, platelets 148. Granulocytes 86% segs. ESR 60. PT/PTT 13.3 and 38.4. ABG was done on 40% FIO2, pH of 7.47, pCO2 of 42, pO2 135, bicarb 31, saturation of 97% on 40%. Repeat ABG was done on 40% again; pH of 7.49, pCO2 40, pO2 82, bicarb 31, saturation 97%. VBG shows a lactic acid of 1.2. The patient was put on BiPAP 10/5. Sodium 145, potassium 4.3, chloride 99, CO2 29, anion gap 21, BUN 42, creatinine 5.7, GFR 10, glucose 85, calcium 9.3, phosphorus 3.5, magnesium 2.1. LFTs shows normal. CPK 481. Troponin is 0.07. BNP 22,200. Influenza was negative. The patient had a CT of the head done; official results are pending. Chest x-ray was done in the emergency room, a portable film, which shows right lower lobe, right middle lobe dense consolidation versus pneumonia and possible pleural effusion. The patient had a CAT scan of the head done, the results of which are pending. EKG was done, the results were not available. The patient was evaluated by Dr. Hodge. EKG shows sinus rhythm with inferior Q-waves, PACs. The patient was placed on BiPAP in the emergency room. The patient was given Lasix 40 mg IV by the ER physician. Nitro paste 1 inch was placed. The patient was given Tamiflu 30 mg. The patient was given vancomycin 1 g IV. The patient was given Zosyn 4.5 g IV in the emergency room and the patient was consulted. The patient was asked to be evaluated by apple turner by the ER physician. IMPRESSION: 1. Questionable and possible impending bilevel positive airway pressure-requiring and dependent respiratory failure with hypoxemia. 2. Possible healthcare-associated versus community-acquired right lower lobe consolidation, pneumonia, alveolar infiltrate with some congestive heart failure. 3. Uncontrolled accelerated hypertension. 4. End-stage renal disease, hemodialysis dependent, via the left upper extremity arteriovenous fistula. 5. Questionable possible sepsis. 6. Leukocytosis with granulocytosis. 7. Normocytic anemia. 8. Elevated erythrocyte sedimentation rate of 60. 9. Hypoxemia. 10. Elevated CPK, etiology undetermined. 11. Indeterminate troponin. 12. Questionable acute systolic versus diastolic congestive heart failure with elevated BNP. 13. History of hypertension. 14. History of prostate hypertrophy. 15. History of hyperlipidemia, hypertriglyceridemia. 16. History of dementia. 17. History of insulin-requiring diabetes mellitus. 18. History of hypovitaminosis D. 19. History of secondary hyperparathyroidism and hyperphosphatemia. PLAN: At this time, the patient was seen and evaluated in the emergency room by the ER physician and apple turner. The patient has been admitted to intensive care unit. The patient has been ordered serial labs in the morning. Serial cardiac enzymes ordered. Intact PTH ordered, CBC ordered. Blood, sputum cultures ordered. Consultations; Infectious Disease, Nephrology, Cardiology. The patient has been ordered Legionella titers. Procalcitonin level ordered. Current medications; Mucomyst nebulizer 20% 4 mL q.6h., hydralazine 100 mg twice a day, Aricept 10 mg at bedtime, Coreg 25 mg twice a day, Cozaar 100 mg daily, doxycycline 100 mg IV q. 12, aspirin 325 daily, Flomax 0.4 mg daily, heparin 5000 subcu q. 8, Humalog low-dose sliding scale coverage a.c., Lipitor 40 mg daily. The patient was started on meropenem 500 mg IV q. 12 after discussing the case with Infectious Diseases. Namenda 5 mg daily. The patient was started on nitroglycerin drip in the emergency room at 5 mcg/kg/min for uncontrolled hypertension. The patient is resumed on Norvasc 10 mg daily, omega 3 fish oil 1000 mg twice a day, PhosLo 667 mg three times a day, Protonix 40 mg IV daily. The patient is also started on Solu-Medrol 20 mg IV q. 12 for possible suspicion of acute exacerbation of chronic obstructive pulmonary disease. The patient was given Tamiflu suspension 30 mg. The patient was started on vitamin D 400 units daily. The patient was started on Xopenex nebulizer 0.63 mg every 6 hours. The patient was given vancomycin 1 g in the ER. Zosyn 4.5 g was ordered in the ER. The patient has been ordered a CAT scan of the chest. The patient was ordered a CAT scan of the head. The patient has been ordered echo with Doppler, EKG. The patient has been ordered physical therapy, occupational therapy, ambulation therapy. In addition, because of the patient's sore throat and tonsillar hypertrophy, we have ordered swallow evaluation and treatment. The patient was seen in stretcher #7 in the emergency room. At present, the patient's condition is critical. Prognosis is guarded. Family aware. Time spent in the entire management, more than 1 hour 55 minutes. Dictated and electronically signed, not read. Oleg Whitman MD
[2017-07-05 06:19] LABS: BASO # 0.01 K/mm3 (0.0-2.0); BASO % 0.1 % (0.0-3.0); GRAN # 9.21 (1.4-6.5); GRAN % 88.4 % (50.0-68.0); LYMPH # 0.7 (1.2-3.4); MEAN CELL VOLUME 88.9 fl (80.0-105.0); MEAN CORPUSCULAR HEMOGLOBIN 26.6 pg (25.0-35.0); MEAN PLATELET VOLUME 11.4 fl (7.0-11.0); MONO # 0.5 (0.1-0.6); MONO % 4.5 % (1.0-6.0); RBC 4.13 10^6/uL (3.5-6.1); RED CELL DISTRIBUTION WIDTH 17.5 % (11.5-14.5); WHITE BLOOD COUNT 10.4 10^3/ul (4.5-11.0)
--- NOTE | 2017-07-05 06:59 | CP.CCUPN ---
<MckenzieruthEsmer perez - Last Filed: 07/05/17 09:31> CCU Subjective - Physician Review Subjective (Free Text): 07/05/17 09:06 Patient is a 77 y/o admitted due to severe CAP, was hypoxeic on room air. Patient was stable all night on high flow on fio2 of 40%. This AM patient was saturating 95% off of the high flow. Patient states he's feeling much better. Denies cp, states the sob has improved. No nausea, vomiting or diarrhea. Critical Care Time Spent (in minutes): 45 CCU Objective - Vital Signs / Intake & Output Vital Signs (Last 4 hours): Vital Signs Temp Pulse Resp Pulse Ox 07/05/17 06:00 69 07/05/17 04:48 28 H 07/05/17 04:00 97.5 F L 69 28 H 95 Intake and Output (Last 8hrs): Intake & Output 07/04/17 07/04/17 07/05/17 14:59 22:59 06:59 Other: Voiding Method Urinal - Physical Exam Head: Positive for: Atraumatic, Normocephalic Pupils: Positive for: PERRL Extroacular Muscles: Positive for: EOMI Conjunctiva: Positive for: Normal Mouth: Positive for: Normal Tounge (no tongue swelling noted) Pharnyx: Positive for: Normal. Negative for: TONSILS ENLARGED, Peritonsilar Swelling, Other (no visible swelling noted) Respiratory/Chest: Positive for: Rhonchi (bilaterally). Negative for: Clear to Auscultation, Good Air Exchange, Respiratory Distress, Accessory Muscle Use, Wheezes, Decreased Breath Sounds, Rales, Retracting, Tachypneic Cardiovascular: Positive for: Regular Rate and Rhythm, Murmurs, Normal S1, S2. Negative for: Tachycardic, Bradycardic Abdomen: Positive for: Distention, Normal Bowel Sounds. Negative for: Tenderness, Peritoneal Signs, Rebound Back: Positive for: Normal Inspection Upper Extremity: Positive for: Normal Inspection Lower Extremity: Negative for: Edema Neurological: Positive for: GCS=15, CN II-XII Intact, Speech Normal Skin: Positive for: Warm, Dry, Normal Color Psychiatric: Positive for: Alert, Oriented x 3, Normal Insight, Normal Concentration - Medications Active Medications: Active Medications Generic Name Dose Route Start Last Admin Trade Name Freq PRN Reason Stop Dose Admin Acetylcysteine 4 ml 07/04/17 18:00 07/05/17 03:11 Acetylcysteine 20% IH 4 ml [id number] JERE Administration Amlodipine Besylate 10 mg 07/05/17 10:00 Norvasc PO DAILY JERE Aspirin 325 mg 07/04/17 17:15 07/04/17 22:36 Ecotrin PO 325 mg DAILY JERE Administration Atorvastatin Calcium 40 mg 07/04/17 22:00 07/04/17 22:37 Lipitor PO 40 mg HS JERE Administration Calcium Acetate 667 mg 07/04/17 18:00 07/04/17 23:41 Phoslo PO Not Given TID JERE Carvedilol 25 mg 07/04/17 18:00 07/05/17 06:17 Coreg PO Not Given BID JERE Donepezil HCl 10 mg 07/04/17 22:00 07/04/17 22:37 Aricept PO 10 mg HS JERE Administration Heparin Sodium (Porcine) 5,000 units 07/04/17 16:00 07/04/17 23:28 Heparin SC 5,000 units Q8H JERE Administration Protocol Hydralazine HCl 100 mg 07/04/17 18:00 07/04/17 23:42 Apresoline PO 100 mg BID JERE Administration Nitroglycerin/Dextrose 50 mg in 250 mls @ 1.5 mls/hr 07/04/17 15:58 Nitroglycerin 50 Mg/250 Ml D5w IV .Q24H PRN BPS above 140 Protocol 5 MCG/MIN Doxycycline Hyclate 100 mg/ 100 mls @ 100 mls/hr 07/04/17 22:00 07/04/17 22: 36 Sodium Chloride IVPB 100 mls/hr Q12 JERE Administration Protocol Meropenem 500 mg/ Sodium 50 mls @ 100 mls/hr 07/04/17 22:00 07/04/17 22:36 Chloride IVPB 07/11/17 22:01 100 mls/hr Q12 JERE Administration Protocol Insulin Human Lispro 0 units 07/05/17 07:30 Humalog Low SC AC JERE Protocol Levalbuterol HCl 0.63 mg 07/04/17 18:00 07/05/17 03:11 Xopenex IH 0.63 mg [id number] JERE Administration Losartan Potassium 100 mg 07/04/17 17:15 07/05/17 06:18 Cozaar PO Not Given DAILY JERE Memantine 5 mg 07/04/17 17:15 07/04/17 22:37 Namenda PO 5 mg DAILY JERE Administration Methylprednisolone 20 mg 07/04/17 22:00 07/04/17 22:36 Solu-Medrol IVP 20 mg Q12 JERE Administration Akcnl-7-Tsmy Ethyl Esters 1 gm 07/05/17 10:00 Lovaza PO BID JERE Pantoprazole Sodium 40 mg 07/05/17 10:00 Protonix Inj IVP DAILY JERE Tamsulosin HCl 0.4 mg 07/04/17 17:15 07/04/17 22:37 Flomax PO 0.4 mg DAILY JERE Administration Vitamin D 400 intlu 07/05/17 10:00 Vitamin D 400 Intl Units Tab PO DAILY JERE - Patient Studies Lab Studies: Lab Studies 07/05/17 07/05/17 07/04/17 Range/Units 05:30 02:15 22:10 WBC 10.4 D (4.5-11.0) 10^3/ul RBC 4.13 (3.5-6.1) 10^6/uL Hgb 11.0 L (14.0-18.0) g/dL Hct 36.7 L (42.0-52.0) % MCV 88.9 (80.0-105.0) fl MCH 26.6 (25.0-35.0) pg MCHC 30.0 L (31.0-37.0) g/dl RDW 17.5 H (11.5-14.5) % Plt Count 128 (120.0-450.0) 10^3/uL MPV 11.4 H (7.0-11.0) fl Gran % 88.4 H (50.0-68.0) % Lymph % (Auto) 7.0 L (22.0-35.0) % [place] % (Auto) 4.5 (1.0-6.0) % Eos % (Auto) 0.0 L (1.5-5.0) % Baso % (Auto) 0.1 (0.0-3.0) % Gran # 9.21 H (1.4-6.5) Lymph # (Auto) 0.7 L (1.2-3.4) [place] # (Auto) 0.5 (0.1-0.6) Eos # (Auto) 0.0 (0.0-0.7) Baso # (Auto) 0.01 (0.0-2.0) K/mm3 pCO2 (35-45) mm/Hg pO2 (80-100) mm/Hg HCO3 (21-28) mmol/L ABG pH (7.35-7.45) ABG Total CO2 (22-28) mmol.L ABG O2 Saturation (95-98) % ABG Base Excess (-2.0-3.0) mmol/L ABG Potassium (3.6-5.2) mmol/L Sodium (132-148) mmol/L Chloride (98-107) mmol/L Glucose (75-110) mg/dl Lactate (0.7-2.1) mmol/L FiO2 % Pressure Support Inspiratory BiPAP POC Glucose (mg/dL) (65-110) mg/dL Troponin I 0.11 0.11 D ng/mL Arterial Blood Potassium (3.6-5.2) mmol/L 07/04/17 07/04/17 Range/Units 21:53 16:57 WBC (4.5-11.0) 10^3/ul RBC (3.5-6.1) 10^6/uL Hgb (14.0-18.0) g/dL Hct (42.0-52.0) % MCV (80.0-105.0) fl MCH (25.0-35.0) pg MCHC (31.0-37.0) g/dl RDW (11.5-14.5) % Plt Count (120.0-450.0) 10^3/uL MPV (7.0-11.0) fl Gran % (50.0-68.0) % Lymph % (Auto) (22.0-35.0) % [place] % (Auto) (1.0-6.0) % Eos % (Auto) (1.5-5.0) % Baso % (Auto) (0.0-3.0) % Gran # (1.4-6.5) Lymph # (Auto) (1.2-3.4) [place] # (Auto) (0.1-0.6) Eos # (Auto) (0.0-0.7) Baso # (Auto) (0.0-2.0) K/mm3 pCO2 40 (35-45) mm/Hg pO2 82.0 (80-100) mm/Hg HCO3 30.5 H (21-28) mmol/L ABG pH 7.49 H (7.35-7.45) ABG Total CO2 31.7 H (22-28) mmol.L ABG O2 Saturation 96.7 (95-98) % ABG Base Excess 6.6 H (-2.0-3.0) mmol/L ABG Potassium 4.0 (3.6-5.2) mmol/L Sodium 140.0 (132-148) mmol/L Chloride 106.0 (98-107) mmol/L Glucose 100 (75-110) mg/dl Lactate 0.8 (0.7-2.1) mmol/L FiO2 40.0 % Pressure Support 5 Inspiratory BiPAP 10 POC Glucose (mg/dL) 92 (65-110) mg/dL Troponin I ng/mL Arterial Blood Potassium 4.0 (3.6-5.2) mmol/L Laboratory Results - last 24 hr 07/04/17 07/04/17 07/04/17 16:57 21:53 22:10 WBC RBC Hgb Hct MCV MCH MCHC RDW Plt Count MPV Gran % Lymph % (Auto) [place] % (Auto) Eos % (Auto) Baso % (Auto) Gran # Lymph # (Auto) [place] # (Auto) Eos # (Auto) Baso # (Auto) pCO2 40 pO2 82.0 HCO3 30.5 H ABG pH 7.49 H ABG Total CO2 31.7 H ABG O2 Saturation 96.7 ABG Base Excess 6.6 H ABG Potassium 4.0 Sodium 140.0 Chloride 106.0 Glucose 100 Lactate 0.8 FiO2 40.0 Pressure Support 5 Inspiratory BiPAP 10 POC Glucose (mg/dL) 92 Troponin I 0.11 D Arterial Blood Potassium 4.0 07/05/17 07/05/17 02:15 05:30 WBC 10.4 D RBC 4.13 Hgb 11.0 L Hct 36.7 L MCV 88.9 MCH 26.6 MCHC 30.0 L RDW 17.5 H Plt Count 128 MPV 11.4 H Gran % 88.4 H Lymph % (Auto) 7.0 L [place] % (Auto) 4.5 Eos % (Auto) 0.0 L Baso % (Auto) 0.1 Gran # 9.21 H Lymph # (Auto) 0.7 L [place] # (Auto) 0.5 Eos # (Auto) 0.0 Baso # (Auto) 0.01 pCO2 pO2 HCO3 ABG pH ABG Total CO2 ABG O2 Saturation ABG Base Excess ABG Potassium Sodium Chloride Glucose Lactate FiO2 Pressure Support Inspiratory BiPAP POC Glucose (mg/dL) Troponin I 0.11 Arterial Blood Potassium EKG/Cardiology Studies: Cardiology / EKG Studies 07/05/17 07:00 EKG [ELECTROCARDIOGRAM] DAILY Comment: Reason For Exam: CNF 07/06/17 07:00 EKG [ELECTROCARDIOGRAM] DAILY Comment: Reason For Exam: CNF Fingerstick Blood Sugar Results: 127 Results Reviewed to Date: Yes Critical Care Progress Note - Prophylaxis GI Prophylaxis GI: PPI - Prophylaxis DVT Prophylaxis DVT: Heparin SQ - Nutrition Nutrition: Nutrition Category Date Time Status Consistent Carbohydrate [DIET] Diets 07/04/17 Breakfast Ordered Assessment/Plan - Assessment and Plan (Free Text) Assessment: Patient is a 77 y/o with pmh of ESRD on Sunday//Sunday hemodialysis, IDDM, CVA with mild expressive aphasia? tobacco abuse, copd, admitted with severe community acquired pneumonia and epiglotitis. Patient was hypoxec on room air, was stable on high flow all night. Patient is currently on nasal cannula and is saturating above 90s. Plan: Neuro: stable at baseline, on namenda and aricept. Pulm: severe community acquired pneumonia with epiglottis with underlying emphysema - Continue with abx, tamiflu, and bronchodilators. - Continue with solu-medrol - head of bed elevation above 35 degrees. Cardio- keep map above 65%, on po bp meds for h/o htn. pro-bnp elevated likely underlying chf, pending echo, however, no clinical signs of fluid overload. On asa and Lipitor. ID: CAP- on doxy and merrem, and zyvox. leukocytosis trended down, and afebrile. pending cultures. Endo: h/o dm, on insulin sliding scale, and fingersticks achs. Maintain euglycemia Renal: ESRD- HD today, on phoslo, nephrology following. Heme: stable, continue to monitor. Gi: diabetic diet, ppi for gi prophylaxis. DVT prophylaxis: heparin sc. Patient seen, examined and case discussed with the iso coordinator. - Date & Time Date: 07/05/17 Time: 10:20 <AdrianPapito - Last Filed: 07/05/17 10:39> CCU Objective - Vital Signs / Intake & Output Vital Signs (Last 4 hours): Vital Signs Pulse Resp 07/05/17 10:26 59 L 07/05/17 07:44 28 H Intake and Output (Last 8hrs): Intake & Output 07/04/17 07/05/17 07/05/17 22:59 06:59 14:59 Intake Total 350 Balance 350 Intake: IV 200 Right Antecubital 200 Oral 150 Other: Voiding Method Urinal - Medications Active Medications: Active Medications Generic Name Dose Route Start Last Admin Trade Name Freq PRN Reason Stop Dose Admin Acetylcysteine 4 ml 07/04/17 18:00 07/05/17 07:36 Acetylcysteine 20% IH 4 ml [id number] JERE Administration Amlodipine Besylate 10 mg 07/05/17 10:00 07/05/17 10:26 Norvasc PO Not Given DAILY JERE Aspirin 325 mg 07/04/17 17:15 07/05/17 10:26 Ecotrin PO 325 mg DAILY JERE Administration Atorvastatin Calcium 40 mg 07/04/17 22:00 07/04/17 22:37 Lipitor PO 40 mg HS JERE Administration Calcium Acetate 667 mg 07/04/17 18:00 07/05/17 10:26 Phoslo PO 667 mg TID JERE Administration Carvedilol 25 mg 07/04/17 18:00 07/05/17 10:26 Coreg PO Not Given BID JERE Donepezil HCl 10 mg 07/04/17 22:00 07/04/17 22:37 Aricept PO 10 mg HS JERE Administration Heparin Sodium (Porcine) 5,000 units 07/04/17 16:00 07/05/17 10:29 Heparin SC 5,000 units Q8H JERE Administration Protocol Hydralazine HCl 100 mg 07/04/17 18:00 07/05/17 10:27 Apresoline PO Not Given BID JERE Nitroglycerin/Dextrose 50 mg in 250 mls @ 1.5 mls/hr 07/04/17 15:58 Nitroglycerin 50 Mg/250 Ml D5w IV .Q24H PRN BPS above 140 Protocol 5 MCG/MIN Doxycycline Hyclate 100 mg/ 100 mls @ 100 mls/hr 07/04/17 22:00 07/05/17 10: 24 Sodium Chloride IVPB 100 mls/hr Q12 JERE Administration Protocol Meropenem 500 mg/ Sodium 50 mls @ 100 mls/hr 07/05/17 18:00 Chloride IVPB 07/11/17 22:01 1800 JERE Protocol Linezolid 600 mg in 300 mls @ 200 mls/hr 07/05/17 10:00 07/05/17 10:23 Zyvox 600mg/300ml D5w IVPB 07/12/17 10:01 200 mls/hr Q12 JERE Administration Protocol Insulin Human Lispro 0 units 07/05/17 07:30 Humalog Low SC AC JERE Protocol Levalbuterol HCl 0.63 mg 07/04/17 18:00 07/05/17 07:37 Xopenex IH 0.63 mg [id number] JERE Administration Losartan Potassium 100 mg 07/04/17 17:15 07/05/17 10:24 Cozaar PO 100 mg DAILY JERE Administration Memantine 5 mg 07/04/17 17:15 07/05/17 10:25 Namenda PO 5 mg DAILY JERE Administration Methylprednisolone 20 mg 07/04/17 22:00 07/05/17 10:24 Solu-Medrol IVP 20 mg Q12 JERE Administration Ncevl-2-Nmbb Ethyl Esters 1 gm 07/05/17 10:00 07/05/17 10:27 Lovaza PO Not Given BID JERE Oseltamivir Phosphate 30 mg 07/05/17 10:00 Tamiflu Susp PO DAILY JERE Protocol Pantoprazole Sodium 40 mg 07/05/17 10:00 07/05/17 10:24 Protonix Inj IVP 40 mg DAILY JERE Administration Tamsulosin HCl 0.4 mg 07/04/17 17:15 07/05/17 10:26 Flomax PO 0.4 mg DAILY JERE Administration Vitamin D 400 intlu 07/05/17 10:00 07/05/17 10:26 Vitamin D 400 Intl Units Tab PO 400 intlu DAILY JERE Administration - Patient Studies Lab Studies: Lab Studies 07/05/17 07/05/17 07/05/17 Range/Units 05:30 05:30 02:15 WBC 10.4 D (4.5-11.0) 10^3/ul RBC 4.13 (3.5-6.1) 10^6/uL Hgb 11.0 L (14.0-18.0) g/dL Hct 36.7 L (42.0-52.0) % MCV 88.9 (80.0-105.0) fl MCH 26.6 (25.0-35.0) pg MCHC 30.0 L (31.0-37.0) g/dl RDW 17.5 H (11.5-14.5) % Plt Count 128 (120.0-450.0) 10^3/uL MPV 11.4 H (7.0-11.0) fl Gran % 88.4 H (50.0-68.0) % Lymph % (Auto) 7.0 L (22.0-35.0) % [place] % (Auto) 4.5 (1.0-6.0) % Eos % (Auto) 0.0 L (1.5-5.0) % Baso % (Auto) 0.1 (0.0-3.0) % Gran # 9.21 H (1.4-6.5) Lymph # (Auto) 0.7 L (1.2-3.4) [place] # (Auto) 0.5 (0.1-0.6) Eos # (Auto) 0.0 (0.0-0.7) Baso # (Auto) 0.01 (0.0-2.0) K/mm3 pCO2 (35-45) mm/Hg pO2 (80-100) mm/Hg HCO3 (21-28) mmol/L ABG pH (7.35-7.45) ABG Total CO2 (22-28) mmol.L ABG O2 Saturation (95-98) % ABG Base Excess (-2.0-3.0) mmol/L ABG Potassium (3.6-5.2) mmol/L Sodium 143 (132-148) mmol/L Chloride 100 (98-107) mmol/L Glucose (75-110) mg/dl Lactate (0.7-2.1) mmol/L FiO2 % Pressure Support Inspiratory BiPAP Potassium 4.6 (3.6-5.0) mmol/L Carbon Dioxide 29 (21-33) mmol/L Anion Gap 19 (10-20) BUN 58 H (7-21) mg/dL Creatinine 7.1 H (0.8-1.5) mg/dl Est GFR ( Amer) 9 Est GFR (Non-Af Amer) 8 POC Glucose (mg/dL) (65-110) mg/dL Random Glucose 180 H (70-110) mg/dL Calcium 8.9 (8.4-10.5) mg/dL Phosphorus 5.9 H (2.5-4.5) mg/dL Magnesium 2.2 (1.7-2.2) mg/dL Total Bilirubin 1.0 (0.2-1.3) mg/dL Direct Bilirubin 0.7 H (0.0-0.4) mg/dL AST 32 (17-59) U/L ALT 25 (7-56) U/L Alkaline Phosphatase 78 (38-126) U/L Troponin I 0.11 ng/mL Total Protein 7.0 (5.8-8.3) g/dL Albumin 3.6 (3.0-4.8) g/dL Globulin 3.4 gm/dL Albumin/Globulin Ratio 1.1 (1.1-1.8) Triglycerides 119 (35-160) mg/dL Cholesterol 104 L (130-200) mg/dL LDL Cholesterol Direct 37 (0-129) mg/dL HDL Cholesterol 30 (29-60) mg/dL Arterial Blood Potassium (3.6-5.2) mmol/L 07/04/17 07/04/17 07/04/17 Range/Units 22:10 21:53 16:57 WBC (4.5-11.0) 10^3/ul RBC (3.5-6.1) 10^6/uL Hgb (14.0-18.0) g/dL Hct (42.0-52.0) % MCV (80.0-105.0) fl MCH (25.0-35.0) pg MCHC (31.0-37.0) g/dl RDW (11.5-14.5) % Plt Count (120.0-450.0) 10^3/uL MPV (7.0-11.0) fl Gran % (50.0-68.0) % Lymph % (Auto) (22.0-35.0) % [place] % (Auto) (1.0-6.0) % Eos % (Auto) (1.5-5.0) % Baso % (Auto) (0.0-3.0) % Gran # (1.4-6.5) Lymph # (Auto) (1.2-3.4) [place] # (Auto) (0.1-0.6) Eos # (Auto) (0.0-0.7) Baso # (Auto) (0.0-2.0) K/mm3 pCO2 40 (35-45) mm/Hg pO2 82.0 (80-100) mm/Hg HCO3 30.5 H (21-28) mmol/L ABG pH 7.49 H (7.35-7.45) ABG Total CO2 31.7 H (22-28) mmol.L ABG O2 Saturation 96.7 (95-98) % ABG Base Excess 6.6 H (-2.0-3.0) mmol/L ABG Potassium 4.0 (3.6-5.2) mmol/L Sodium 140.0 (132-148) mmol/L Chloride 106.0 (98-107) mmol/L Glucose 100 (75-110) mg/dl Lactate 0.8 (0.7-2.1) mmol/L FiO2 40.0 % Pressure Support 5 Inspiratory BiPAP 10 Potassium (3.6-5.0) mmol/L Carbon Dioxide (21-33) mmol/L Anion Gap (10-20) BUN (7-21) mg/dL Creatinine (0.8-1.5) mg/dl Est GFR ( Amer) Est GFR (Non-Af Amer) POC Glucose (mg/dL) 92 (65-110) mg/dL Random Glucose (70-110) mg/dL Calcium (8.4-10.5) mg/dL Phosphorus (2.5-4.5) mg/dL Magnesium (1.7-2.2) mg/dL Total Bilirubin (0.2-1.3) mg/dL Direct Bilirubin (0.0-0.4) mg/dL AST (17-59) U/L ALT (7-56) U/L Alkaline Phosphatase (38-126) U/L Troponin I 0.11 D ng/mL Total Protein (5.8-8.3) g/dL Albumin (3.0-4.8) g/dL Globulin gm/dL Albumin/Globulin Ratio (1.1-1.8) Triglycerides (35-160) mg/dL Cholesterol (130-200) mg/dL LDL Cholesterol Direct (0-129) mg/dL HDL Cholesterol (29-60) mg/dL Arterial Blood Potassium 4.0 (3.6-5.2) mmol/L Laboratory Results - last 24 hr 07/04/17 07/04/17 07/04/17 16:57 21:53 22:10 WBC RBC Hgb Hct MCV MCH MCHC RDW Plt Count MPV Gran % Lymph % (Auto) [place] % (Auto) Eos % (Auto) Baso % (Auto) Gran # Lymph # (Auto) [place] # (Auto) Eos # (Auto) Baso # (Auto) pCO2 40 pO2 82.0 HCO3 30.5 H ABG pH 7.49 H ABG Total CO2 31.7 H ABG O2 Saturation 96.7 ABG Base Excess 6.6 H ABG Potassium 4.0 Sodium 140.0 Chloride 106.0 Glucose 100 Lactate 0.8 FiO2 40.0 Pressure Support 5 Inspiratory BiPAP 10 Potassium Carbon Dioxide Anion Gap BUN Creatinine Est GFR ( Amer) Est GFR (Non-Af Amer) POC Glucose (mg/dL) 92 Random Glucose Calcium Phosphorus Magnesium Total Bilirubin Direct Bilirubin AST ALT Alkaline Phosphatase Troponin I 0.11 D Total Protein Albumin Globulin Albumin/Globulin Ratio Triglycerides Cholesterol LDL Cholesterol Direct HDL Cholesterol Arterial Blood Potassium 4.0 07/05/17 07/05/17 07/05/17 02:15 05:30 05:30 WBC 10.4 D RBC 4.13 Hgb 11.0 L Hct 36.7 L MCV 88.9 MCH 26.6 MCHC 30.0 L RDW 17.5 H Plt Count 128 MPV 11.4 H Gran % 88.4 H Lymph % (Auto) 7.0 L [place] % (Auto) 4.5 Eos % (Auto) 0.0 L Baso % (Auto) 0.1 Gran # 9.21 H Lymph # (Auto) 0.7 L [place] # (Auto) 0.5 Eos # (Auto) 0.0 Baso # (Auto) 0.01 pCO2 pO2 HCO3 ABG pH ABG Total CO2 ABG O2 Saturation ABG Base Excess ABG Potassium Sodium 143 Chloride 100 Glucose Lactate FiO2 Pressure Support Inspiratory BiPAP Potassium 4.6 Carbon Dioxide 29 Anion Gap 19 BUN 58 H Creatinine 7.1 H Est GFR ( Amer) 9 Est GFR (Non-Af Amer) 8 POC Glucose (mg/dL) Random Glucose 180 H Calcium 8.9 Phosphorus 5.9 H Magnesium 2.2 Total Bilirubin 1.0 Direct Bilirubin 0.7 H AST 32 ALT 25 Alkaline Phosphatase 78 Troponin I 0.11 Total Protein 7.0 Albumin 3.6 Globulin 3.4 Albumin/Globulin Ratio 1.1 Triglycerides 119 Cholesterol 104 L LDL Cholesterol Direct 37 HDL Cholesterol 30 Arterial Blood Potassium EKG/Cardiology Studies: Cardiology / EKG Studies 07/05/17 07:00 EKG [ELECTROCARDIOGRAM] DAILY Comment: Reason For Exam: CNF 07/06/17 07:00 EKG [ELECTROCARDIOGRAM] DAILY Comment: Reason For Exam: F Critical Care Progress Note - Nutrition Nutrition: Nutrition Category Date Time Status Consistent Carbohydrate [DIET] Diets 07/04/17 Breakfast Ordered Assessment/Plan - Assessment and Plan (Free Text) Plan: Patient seen and examined on rounds with resident, agree with note with following additions/exceptions: Patient is 77yo male with PMhx of ESRD on HD, IDDM, CVA, COPD/Emphysema, former smoker, admitted with severe CAP, epiglotitis, and hypoxia, now titrated off high flow O2, on 3LNC, tolerating it well sat 93%. Currently afebrile, HD stable comfortable in NAD. CAP, severe Hypoxia ESRD COPD Dementia Recommend: - supp o2 as needed, goal sat >90%, duonebs PRN, monitor resp status closely - broad spectrum antibiotics as per ID - follow up UCx, BCx, Procal, Urine Lg/Strep - BP control - HD as per Renal - monitor HH - keep NPO for now - ENT eval - GI ppx - DVT ppx - Monitor in MICU
--- NOTE | 2017-07-05 07:06 | CP.PCM.CON ---
<Gavi Soriano - Last Filed: 07/05/17 06:50> History of Present Illness - History of Present Illness History of Present Illness: ENT consult note for Dr. Robles Consulted for: Upper airway swelling Patient is a 77M who was brought in to the ER by family for respiratory distress. Patient had a "cold" 2 weeks ago but did not receive antibiotics. 2 days ago patient had a sore throat and developed worsening hoarseness and dyspnea. Upon ER presentation he had stridor, was coughing up thick green- yellow secretions, and was satting 77% on RA. Exam in ER showed tongue and tonsilar swelling with concern for impending acute loss of airway patency. Patient was admitted to the ICU, placed on high-flow O2 and his saturation improved to 94-98%. Solumedrol and antibiotics were administered. ENT was consulted to be on standby for possible emergent airway intervention. CT of the neck showed soft tissue swelling and mild epiglottitis but airway was patent. Overnight patient has improved with decreased pharyngeal swelling, and is satting 95% on 50% FiO2 and 60LPM high flow. Denies any SOB, choking sensation, fevers or chills, or cough Review of Systems - Review of Systems All systems: reviewed and no additional remarkable complaints except (as per HPI ) Past Patient History - Infectious Disease Hx of Infectious Diseases: None - Past Medical History & Family History Past Medical History?: Yes Past Family History: Reviewed and not pertinent - Past Social History Smoking Status: Never Smoked Home Situation {Lives}: With Family - CARDIAC Hx Cardiac Disorders: Yes Hx Hypertension: Yes - PULMONARY Hx Respiratory Disorders: Yes Hx Chronic Obstructive Pulmonary Disease (COPD): Yes (IN THE PAST) - NEUROLOGICAL Hx Neurological Disorder: No - HEENT Hx HEENT Problems: Yes Hx Cataracts: Yes Other/Comment: double vision to the left eye that is patched for saftey - RENAL Hx Chronic Kidney Disease: Yes Type of Dialysis Access: L upper arm Date of Last Dialysis Treatment: 07/03/17 - ENDOCRINE/METABOLIC Hx Endocrine Disorders: Yes Hx Diabetes Mellitus Type 2: Yes - HEMATOLOGICAL/ONCOLOGICAL Hx Blood Disorders: No - INTEGUMENTARY Hx Dermatological Problems: Yes (swollen left hand) - MUSCULOSKELETAL/RHEUMATOLOGICAL Hx Musculoskeletal Disorders: Yes Hx Back Pain: Yes (LUMBAR) Hx Osteoarthritis: Yes Other/Comment: neuropathy - GASTROINTESTINAL Hx Gastrointestinal Disorders: No - GENITOURINARY/GYNECOLOGICAL Hx Genitourinary Disorders: Yes Hx Prostate Problems: Yes - PSYCHIATRIC Hx Psychophysiologic Disorder: No Hx Substance Use: No - SURGICAL HISTORY Hx Cataract Extraction: Yes (RT.EYE) Hx Vascular Surgery: Yes (A/V FISTULA LEFT ARM) Hx Vascular Access Device: Yes (DIALYSIS ACCESS) - ANESTHESIA Hx Anesthesia: Yes Hx Anesthesia Reactions: No Hx Malignant Hyperthermia: No Meds Allergies/Adverse Reactions: Allergies Allergy/AdvReac Type Severity Reaction Status Date / Time No Known Allergies Allergy Verified 07/04/17 14:29 - Medications Medications: Current Medications Acetylcysteine (Acetylcysteine 20%) 4 ml IH [id number] [facility] Last Admin: 07/05/17 03:11 Dose: 4 ml Amlodipine Besylate (Norvasc) 10 mg PO DAILY [facility] Aspirin (Ecotrin) 325 mg PO DAILY [facility] Last Admin: 07/04/17 22:36 Dose: 325 mg Atorvastatin Calcium (Lipitor) 40 mg PO HS [facility] Last Admin: 07/04/17 22:37 Dose: 40 mg Calcium Acetate (Phoslo) 667 mg PO TID [facility] Last Admin: 07/04/17 23:41 Dose: Not Given Carvedilol (Coreg) 25 mg PO BID [facility] Last Admin: 07/05/17 06:17 Dose: Not Given Donepezil HCl (Aricept) 10 mg PO HS [facility] Last Admin: 07/04/17 22:37 Dose: 10 mg Heparin Sodium (Porcine) (Heparin) 5,000 units SC Q8H [facility] PRN Reason: Protocol Last Admin: 07/04/17 23:28 Dose: 5,000 units Hydralazine HCl (Apresoline) 100 mg PO BID [facility] Last Admin: 07/04/17 23:42 Dose: 100 mg Nitroglycerin/Dextrose (Nitroglycerin 50 Mg/250 Ml D5w) 50 mg in 250 mls @ 1.5 mls/hr IV .Q24H PRN; Protocol; 5 MCG/MIN PRN Reason: BPS above 140 Doxycycline Hyclate 100 mg/ (Sodium Chloride) 100 mls @ 100 mls/hr IVPB Q12 [facility] PRN Reason: Protocol Last Admin: 07/04/17 22:36 Dose: 100 mls/hr Meropenem 500 mg/ Sodium (Chloride) 50 mls @ 100 mls/hr IVPB Q12 [facility] PRN Reason: Protocol Stop: 07/11/17 22:01 Last Admin: 07/04/17 22:36 Dose: 100 mls/hr Insulin Human Lispro (Humalog Low) 0 units SC AC [facility] PRN Reason: Protocol Levalbuterol HCl (Xopenex) 0.63 mg IH [id number] [facility] Last Admin: 07/05/17 03:11 Dose: 0.63 mg Losartan Potassium (Cozaar) 100 mg PO DAILY [facility] Last Admin: 07/05/17 06:18 Dose: Not Given Memantine (Namenda) 5 mg PO DAILY [facility] Last Admin: 07/04/17 22:37 Dose: 5 mg Methylprednisolone (Solu-Medrol) 20 mg IVP Q12 [facility] Last Admin: 07/04/17 22:36 Dose: 20 mg [id number] Ethyl Esters (Lovaza) 1 gm PO BID [facility] Pantoprazole Sodium (Protonix Inj) 40 mg IVP DAILY [facility] Tamsulosin HCl (Flomax) 0.4 mg PO DAILY [facility] Last Admin: 07/04/17 22:37 Dose: 0.4 mg Vitamin D (Vitamin D 400 Intl Units Tab) 400 intlu PO DAILY [facility] Physical Exam - Constitutional Appears: Non-toxic, No Acute Distress - Head Exam Head Exam: ATRAUMATIC, NORMOCEPHALIC - Eye Exam Eye Exam: Normal appearance. absent: Conjunctival injection, Scleral icterus - ENT Exam ENT Exam: Mucous Membranes Moist Additional comments: Multiple ulcers and thrush on the tongue, yellow plaque lesions on the posterior pharynx, moderate erythema of the pharyngeal soft tissues, patent airway with a mallampati score of I - Respiratory Exam Respiratory Exam: Rhonchi, Wheezes. absent: Accessory Muscle Use, Respiratory Distress - Cardiovascular Exam Cardiovascular Exam: RRR - GI/Abdominal Exam GI & Abdominal Exam: Soft. absent: Distended - Neurological Exam Neurological exam: Alert, Oriented x3 - Psychiatric Exam Psychiatric exam: Normal Affect, Normal Mood - Skin Skin Exam: Dry, Normal Color, Warm Results - Vital Signs Recent Vital Signs: Last Vital Signs Temp 97.5 F L 07/05/17 04:00 Pulse 69 07/05/17 06:00 Resp 28 H 07/05/17 04:48 BP 131/43 L 07/05/17 02:00 Pulse Ox 95 07/05/17 04:00 - Labs Result Diagrams: 07/05/17 05:30 07/04/17 14:30 Labs: Laboratory Results - last 24 hr 07/04/17 07/04/17 07/04/17 16:57 21:53 22:10 WBC RBC Hgb Hct MCV MCH MCHC RDW Plt Count MPV Gran % Lymph % (Auto) [place] % (Auto) Eos % (Auto) Baso % (Auto) Gran # Lymph # (Auto) [place] # (Auto) Eos # (Auto) Baso # (Auto) pCO2 40 pO2 82.0 HCO3 30.5 H ABG pH 7.49 H ABG Total CO2 31.7 H ABG O2 Saturation 96.7 ABG Base Excess 6.6 H ABG Potassium 4.0 Sodium 140.0 Chloride 106.0 Glucose 100 Lactate 0.8 FiO2 40.0 Pressure Support 5 Inspiratory BiPAP 10 POC Glucose (mg/dL) 92 Troponin I 0.11 D Arterial Blood Potassium 4.0 07/05/17 07/05/17 02:15 05:30 WBC 10.4 D RBC 4.13 Hgb 11.0 L Hct 36.7 L MCV 88.9 MCH 26.6 MCHC 30.0 L RDW 17.5 H Plt Count 128 MPV 11.4 H Gran % 88.4 H Lymph % (Auto) 7.0 L [place] % (Auto) 4.5 Eos % (Auto) 0.0 L Baso % (Auto) 0.1 Gran # 9.21 H Lymph # (Auto) 0.7 L [place] # (Auto) 0.5 Eos # (Auto) 0.0 Baso # (Auto) 0.01 pCO2 pO2 HCO3 ABG pH ABG Total CO2 ABG O2 Saturation ABG Base Excess ABG Potassium Sodium Chloride Glucose Lactate FiO2 Pressure Support Inspiratory BiPAP POC Glucose (mg/dL) Troponin I 0.11 Arterial Blood Potassium Assessment & Plan - Assessment and Plan (Free Text) Assessment: 77M with acute respiratory distress d/t epiglottitis vs URI vs pneumonia Plan: -No emergent ENT intervention indicated at this time--patient is satting well on high flow and physical exam improved since last night -Continue antibiotics and steroids per ID and ICU/primary care -F/U sputum culture -Continue to monitor closely Discussed with Dr. Robles, further recs per him Gavi Soriano, PGY2 <Geovanny Robles Chetan - Last Filed: 07/05/17 13:31> Review of Systems - Constitutional Constitutional: As Per HPI, Lethargy, Malaise - EENT Eyes: As Per HPI Ears: As Per HPI Nose/Mouth/Throat: As Per HPI - Cardiovascular Cardiovascular: As Per HPI - Respiratory Respiratory: As Per HPI - Gastrointestinal Gastrointestinal: As Per HPI - Genitourinary Genitourinary: As Per HPI - Integumentary Integumentary: As Per HPI - Neurological Neurological: As Per HPI - Psychiatric Psychiatric: As Per HPI - Endocrine Endocrine: As Per HPI - Hematologic/Lymphatic Hematologic: As Per HPI Past Patient History - Past Social History Smoking Status: Former Smoker Meds - Medications Medications: Current Medications Acetylcysteine (Acetylcysteine 20%) 4 ml IH [id number] [facility] Last Admin: 07/05/17 12:59 Dose: 4 ml Amlodipine Besylate (Norvasc) 10 mg PO DAILY [facility] Last Admin: 07/05/17 10:26 Dose: Not Given Aspirin (Ecotrin) 325 mg PO DAILY [facility] Last Admin: 07/05/17 10:26 Dose: 325 mg Atorvastatin Calcium (Lipitor) 40 mg PO HS [facility] Last Admin: 07/04/17 22:37 Dose: 40 mg Benzonatate (Tessalon Perles) 200 mg PO TID [facility] Last Admin: 07/05/17 11:24 Dose: 200 mg Calcium Acetate (Phoslo) 667 mg PO TID [facility] Last Admin: 07/05/17 10:26 Dose: 667 mg Carvedilol (Coreg) 25 mg PO BID [facility] Last Admin: 07/05/17 10:26 Dose: Not Given Donepezil HCl (Aricept) 10 mg PO HS [facility] Last Admin: 07/04/17 22:37 Dose: 10 mg Heparin Sodium (Porcine) (Heparin) 5,000 units SC Q8H [facility] PRN Reason: Protocol Last Admin: 07/05/17 10:29 Dose: 5,000 units Hydralazine HCl (Apresoline) 100 mg PO BID [facility] Last Admin: 07/05/17 10:27 Dose: Not Given Nitroglycerin/Dextrose (Nitroglycerin 50 Mg/250 Ml D5w) 50 mg in 250 mls @ 1.5 mls/hr IV .Q24H PRN; Protocol; 5 MCG/MIN PRN Reason: BPS above 140 Doxycycline Hyclate 100 mg/ (Sodium Chloride) 100 mls @ 100 mls/hr IVPB Q12 [facility] PRN Reason: Protocol Last Admin: 07/05/17 10:24 Dose: 100 mls/hr Meropenem 500 mg/ Sodium (Chloride) 50 mls @ 100 mls/hr IVPB 1800 [facility] PRN Reason: Protocol Stop: 07/11/17 22:01 Linezolid (Zyvox 600mg/300ml D5w) 600 mg in 300 mls @ 200 mls/hr IVPB Q12 [facility] PRN Reason: Protocol Stop: 07/12/17 10:01 Last Admin: 07/05/17 10:23 Dose: 200 mls/hr Insulin Human Lispro (Humalog Low) 0 units SC ACHS [facility] PRN Reason: Protocol Levalbuterol HCl (Xopenex) 0.63 mg IH [id number] [facility] Last Admin: 07/05/17 12:59 Dose: 0.63 mg Losartan Potassium (Cozaar) 100 mg PO DAILY [facility] Last Admin: 07/05/17 10:24 Dose: 100 mg Memantine (Namenda) 5 mg PO DAILY [facility] Last Admin: 07/05/17 10:25 Dose: 5 mg Methylprednisolone (Solu-Medrol) 20 mg IVP Q12 [facility] Last Admin: 07/05/17 10:24 Dose: 20 mg Nystatin (Nystatin Oral Susp) 5 ml PO QID [facility] [id number] Ethyl Esters (Lovaza) 1 gm PO BID [facility] Last Admin: 07/05/17 10:27 Dose: Not Given Oseltamivir Phosphate (Tamiflu Susp) 30 mg PO DAILY [facility] PRN Reason: Protocol Last Admin: 07/05/17 10:57 Dose: 30 mg Pantoprazole Sodium (Protonix Ec Tab) 40 mg PO ACB [facility] Tamsulosin HCl (Flomax) 0.4 mg PO DAILY [facility] Last Admin: 07/05/17 10:26 Dose: 0.4 mg Vitamin D (Vitamin D 400 Intl Units Tab) 400 intlu PO DAILY [facility] Last Admin: 07/05/17 10:26 Dose: 400 intlu Physical Exam - ENT Exam Additional comments: Tongue plaque thick white mcclure Flexible fiberoptic laryngoscopy Procedure performed. Exam indicated for patient's anatomy and gag reflex would not tolerate a mirror exam. The fiberoptic scope was inserted into the patient's left nasal passage and advanced to the nasopharynx and further into the supraglottic region: Findings are: Oropharynx: marked erythema with thick plaque back of tongue Supraglottis: marked erythema with thick plaque back of tongue Glottic: Maite and erythema with inflammation, normal vocal cord movement no paralysis Hypopharynx: moderate erythema with maite Airway patent and stable. No obstruction - Neck Exam Neck exam: Positive for: Tenderness. Negative for: Full Rom, Lymphadenopathy, Meningismus, Normal Inspection, Thyromegaly Results - Vital Signs Recent Vital Signs: Last Vital Signs Temp 97.5 F L 07/05/17 04:00 Pulse 55 L 07/05/17 11:50 Resp 47 H 07/05/17 11:50 BP 159/56 H 07/05/17 11:01 Pulse Ox 97 07/05/17 11:50 - Labs Result Diagrams: 07/05/17 05:30 07/05/17 05:30 Labs: Laboratory Results - last 24 hr 07/04/17 07/04/17 07/04/17 16:57 21:53 22:10 WBC RBC Hgb Hct MCV MCH MCHC RDW Plt Count MPV Gran % Lymph % (Auto) [place] % (Auto) Eos % (Auto) Baso % (Auto) Gran # Lymph # (Auto) [place] # (Auto) Eos # (Auto) Baso # (Auto) pCO2 40 pO2 82.0 HCO3 30.5 H ABG pH 7.49 H ABG Total CO2 31.7 H ABG O2 Saturation 96.7 ABG Base Excess 6.6 H ABG Potassium 4.0 Sodium 140.0 Chloride 106.0 Glucose 100 Lactate 0.8 FiO2 40.0 Pressure Support 5 Inspiratory BiPAP 10 Potassium Carbon Dioxide Anion Gap BUN Creatinine Est GFR ( Amer) Est GFR (Non-Af Amer) POC Glucose (mg/dL) 92 Random Glucose Hemoglobin A1c Calcium Phosphorus Magnesium Total Bilirubin Direct Bilirubin AST ALT Alkaline Phosphatase Troponin I 0.11 D Total Protein Albumin Globulin Albumin/Globulin Ratio Triglycerides Cholesterol LDL Cholesterol Direct HDL Cholesterol Arterial Blood Potassium 4.0 07/05/17 07/05/17 07/05/17 02:15 05:30 05:30 WBC 10.4 D RBC 4.13 Hgb 11.0 L Hct 36.7 L MCV 88.9 MCH 26.6 MCHC 30.0 L RDW 17.5 H Plt Count 128 MPV 11.4 H Gran % 88.4 H Lymph % (Auto) 7.0 L [place] % (Auto) 4.5 Eos % (Auto) 0.0 L Baso % (Auto) 0.1 Gran # 9.21 H Lymph # (Auto) 0.7 L [place] # (Auto) 0.5 Eos # (Auto) 0.0 Baso # (Auto) 0.01 pCO2 pO2 HCO3 ABG pH ABG Total CO2 ABG O2 Saturation ABG Base Excess ABG Potassium Sodium 143 Chloride 100 Glucose Lactate FiO2 Pressure Support Inspiratory BiPAP Potassium 4.6 Carbon Dioxide 29 Anion Gap 19 BUN 58 H Creatinine 7.1 H Est GFR ( Amer) 9 Est GFR (Non-Af Amer) 8 POC Glucose (mg/dL) Random Glucose 180 H Hemoglobin A1c Calcium 8.9 Phosphorus 5.9 H Magnesium 2.2 Total Bilirubin 1.0 Direct Bilirubin 0.7 H AST 32 ALT 25 Alkaline Phosphatase 78 Troponin I 0.11 Total Protein 7.0 Albumin 3.6 Globulin 3.4 Albumin/Globulin Ratio 1.1 Triglycerides 119 Cholesterol 104 L LDL Cholesterol Direct 37 HDL Cholesterol 30 Arterial Blood Potassium 07/05/17 07/05/17 07/05/17 05:30 07:58 11:20 WBC RBC Hgb Hct MCV MCH MCHC RDW Plt Count MPV Gran % Lymph % (Auto) [place] % (Auto) Eos % (Auto) Baso % (Auto) Gran # Lymph # (Auto) [place] # (Auto) Eos # (Auto) Baso # (Auto) pCO2 pO2 HCO3 ABG pH ABG Total CO2 ABG O2 Saturation ABG Base Excess ABG Potassium Sodium Chloride Glucose Lactate FiO2 Pressure Support Inspiratory BiPAP Potassium Carbon Dioxide Anion Gap BUN Creatinine Est GFR ( Amer) Est GFR (Non-Af Amer) POC Glucose (mg/dL) 184 H 222 H Random Glucose Hemoglobin A1c 6.6 H Calcium Phosphorus Magnesium Total Bilirubin Direct Bilirubin AST ALT Alkaline Phosphatase Troponin I Total Protein Albumin Globulin Albumin/Globulin Ratio Triglycerides Cholesterol LDL Cholesterol Direct HDL Cholesterol Arterial Blood Potassium Assessment & Plan (1) Oropharyngeal candidiasis Status: Acute (2) Other voice and resonance disorders Status: Acute (3) Oropharyngeal dysphagia Status: Acute (4) Acute pharyngitis due to other specified organisms Status: Acute (5) Pneumonia Status: Acute (6) Cough Status: Acute - Assessment and Plan (Free Text) Assessment: Patient seen and examined, Agree with resident exam, Impression and Plan. Fiberoptic laryngoscopy performed airway patent and stable.Note of Maite throughout mouth and larynx-treatment will be needed. Discussed with nurse to let ICU attending manage treatment. Your medical management of pneumonia ( antibiotic management) Further Diagnosis: oropharyngeal dysphagia laryngeal and oral candidiasis other voice and resonance disorders/dysphonia Acute laryngitis/pharyngitis throat pain pneumonia respiratory disorder Geovanny Robles DO Otolaryngology - Date & Time Date: 07/05/17 Time: 13:26
[2017-07-05 07:07] LABS: ALB/GLOB RATIO 1.1 (1.1-1.8); ALBUMIN 3.6 g/dL (3.0-4.8); BILIRUBIN,DIRECT 0.7 mg/dL (0.0-0.4); CALCIUM 8.9 mg/dL (8.4-10.5); MAGNESIUM 2.2 mg/dL (1.7-2.2)
[2017-07-05] MEDS ORDERED: Insulin Lispro (humaLOG) LOW Coverage SC SCH (07:30)
--- NOTE | 2017-07-05 09:26 | CP.PCM.CON ---
History of Present Illness - History of Present Illness History of Present Illness: 77 year old male with PMH of ESRD on HD, DM, HTN, morbid obesity with BMI 41, dyslipidemia, COPD, cataracts, chronic low back pain was brought in to [facility] because of worsening shortness of breath. He started having it about a week ago but it worsened a day prior to admission, accompanied by more cough, rhinorrhea , muscle aches in the arms. He was also complaining pain on swallowing and sore throat. He denies having fever or chills, no nausea or vomiting, no headache or dizziness, no chest pain, no abdominal pain, no diarrhea, no dysuria, no dysphagia. In the ED, CT chest was done which shows pneumonia, and CT neck was also done which shows sinus disease as well as inflammation of the epiglottis. Infectious diseases consult is requested to further evaluate and manage. Review of Systems - Review of Systems All systems: reviewed and no additional remarkable complaints except (as per HPI ) Past Patient History - Infectious Disease Hx of Infectious Diseases: None - Past Medical History & Family History Past Medical History?: Yes - Past Social History Smoking Status: Never Smoked - CARDIAC Hx Cardiac Disorders: Yes Hx Hypertension: Yes - PULMONARY Hx Respiratory Disorders: Yes Hx Chronic Obstructive Pulmonary Disease (COPD): Yes (IN THE PAST) - NEUROLOGICAL Hx Neurological Disorder: No - HEENT Hx HEENT Problems: Yes Hx Cataracts: Yes Other/Comment: double vision to the left eye that is patched for saftey - RENAL Hx Chronic Kidney Disease: Yes Type of Dialysis Access: L upper arm Date of Last Dialysis Treatment: 07/03/17 - ENDOCRINE/METABOLIC Hx Endocrine Disorders: Yes Hx Diabetes Mellitus Type 2: Yes - HEMATOLOGICAL/ONCOLOGICAL Hx Blood Disorders: No - INTEGUMENTARY Hx Dermatological Problems: Yes (swollen left hand) - MUSCULOSKELETAL/RHEUMATOLOGICAL Hx Musculoskeletal Disorders: Yes Hx Back Pain: Yes (LUMBAR) Hx Osteoarthritis: Yes Other/Comment: neuropathy - GASTROINTESTINAL Hx Gastrointestinal Disorders: No - GENITOURINARY/GYNECOLOGICAL Hx Genitourinary Disorders: Yes Hx Prostate Problems: Yes - PSYCHIATRIC Hx Psychophysiologic Disorder: No Hx Substance Use: No - SURGICAL HISTORY Hx Cataract Extraction: Yes (RT.EYE) Hx Vascular Surgery: Yes (A/V FISTULA LEFT ARM) Hx Vascular Access Device: Yes (DIALYSIS ACCESS) - ANESTHESIA Hx Anesthesia: Yes Hx Anesthesia Reactions: No Hx Malignant Hyperthermia: No Meds Allergies/Adverse Reactions: Allergies Allergy/AdvReac Type Severity Reaction Status Date / Time No Known Allergies Allergy Verified 07/04/17 14:29 - Medications Medications: Current Medications Acetylcysteine (Acetylcysteine 20%) 4 ml IH [id number] Amlodipine Besylate (Norvasc) 10 mg PO DAILY [facility] Aspirin (Ecotrin) 325 mg PO DAILY [facility] Atorvastatin Calcium (Lipitor) 40 mg PO HS [facility] Calcium Acetate (Phoslo) 667 mg PO TID [facility] Carvedilol (Coreg) 25 mg PO BID [facility] Donepezil HCl (Aricept) 10 mg PO HS [facility] Heparin Sodium (Porcine) (Heparin) 5,000 units SC Q8H [facility] PRN Reason: Protocol Last Admin: 07/04/17 16:58 Dose: 5,000 units Hydralazine HCl (Apresoline) 100 mg PO BID [facility] Nitroglycerin/Dextrose (Nitroglycerin 50 Mg/250 Ml D5w) 50 mg in 250 mls @ 1.5 mls/hr IV .Q24H PRN; Protocol; 5 MCG/MIN PRN Reason: BPS above 140 Doxycycline Hyclate 100 mg/ (Sodium Chloride) 100 mls @ 100 mls/hr IVPB Q12 [facility] PRN Reason: Protocol Insulin Human Lispro (Humalog Low) 0 units SC AC [facility] PRN Reason: Protocol Levalbuterol HCl (Xopenex) 0.63 mg IH [id number] [facility] Losartan Potassium (Cozaar) 100 mg PO DAILY [facility] Memantine (Namenda) 5 mg PO DAILY [facility] Methylprednisolone (Solu-Medrol) 20 mg IVP Q12 [facility] Non-Formulary Medication ([place]-3 Fatty Acids/Fish Oil [Fish Oil 1,000 Mg Capsule]) 1,000 mg PO BID [facility] Pantoprazole Sodium (Protonix Inj) 40 mg IVP DAILY [facility] Tamsulosin HCl (Flomax) 0.4 mg PO DAILY [facility] Vitamin D (Vitamin D 400 Intl Units Tab) 400 intlu PO DAILY [facility] Physical Exam - Constitutional Appears: Chronically Ill, Other (on high flow oxygen) - Head Exam Head Exam: NORMAL INSPECTION - ENT Exam ENT Exam: Mucous Membranes Moist - Neck Exam Neck exam: Negative for: Lymphadenopathy, Meningismus - Respiratory Exam Respiratory Exam: Decreased Breath Sounds, Rales (scattered) - Cardiovascular Exam Cardiovascular Exam: +S1, +S2 - GI/Abdominal Exam GI & Abdominal Exam: Soft. absent: Tenderness Results - Vital Signs Recent Vital Signs: Last Vital Signs Temp 99.9 F H 07/04/17 15:04 Pulse 62 07/04/17 18:20 Resp 18 07/04/17 18:20 BP 150/52 L 07/04/17 15:57 Pulse Ox 99 07/04/17 18:20 - Labs Result Diagrams: 07/05/17 05:30 07/05/17 05:30 Labs: Laboratory Results - last 24 hr 07/04/17 16:57 pCO2 40 pO2 82.0 HCO3 30.5 H ABG pH 7.49 H ABG Total CO2 31.7 H ABG O2 Saturation 96.7 ABG Base Excess 6.6 H ABG Potassium 4.0 Sodium 140.0 Chloride 106.0 Glucose 100 Lactate 0.8 FiO2 40.0 Pressure Support 5 Inspiratory BiPAP 10 Arterial Blood Potassium 4.0 Assessment & Plan - Assessment and Plan (Free Text) Plan: Assessment Severe sepsis due to healthcare-associated pneumonia as well as epiglottitis, R/ O Influenza in this patient also presenting with flu-like illness ESRD on HD DM HTN morbid obesity with BMI 41 dyslipidemia COPD cataracts chronic low back pain Plan Started the patient on Zyvox, Merrem, Doxycycline and started renally-adjusted Tamiflu (patient has negative rapid flu test but presented with flu-like illness ); follow up sputum cx, blood cx, PCT; reviewed CT neck, CXR will monitor clinically
--- NOTE | 2017-07-05 09:54 | CARD ---
APPROVED REPORT EKG Measurement Heart [id number] <Conclusion> Sinus rhythm with 1st degree AV block Prolonged QT Abnormal ECG
[2017-07-05] MEDS: Linezolid 600 mg in D5W 300 ml 600 MG/300 ML BAG IVPB SCH ×2 (10:23→21:59)
[2017-07-05] MEDS: MethylPREDNISolone 40 mg Vial IVP SCH ×2 (10:24→22:00)
[2017-07-05] MEDS: Cholecalciferol 400 Intl Units Tab PO SCH (10:26)
[2017-07-05] MEDS: Aspirin 325 mg EC Tablets PO SCH (10:26)
[2017-07-05] MEDS: Omega-3-Acid Ethyl Esters 1 GM Cap PO SCH ×2 (10:27→18:42)
[2017-07-05] MEDS: Oseltamivir 6 MG/ML PO SCH (10:57)
[2017-07-05] MEDS ORDERED: Insulin Lispro 1 UNITS/0.01 ML SC ONE (12:36)
--- NOTE | 2017-07-05 12:38 | CARD ---
APPROVED REPORT EKG Measurement Heart [id number] <Conclusion> Sinus rhythm with premature atrial complexes
[2017-07-05] MEDS: Nystatin 100,000 Units/ml Oral Susp 5 ml UD PO SCH ×3 (14:19→22:01)
--- NOTE | 2017-07-05 15:17 | CP.PCM.CON ---
History of Present Illness - History of Present Illness History of Present Illness: 77 year old male with PMHx of DM, HTN, ESRD on HD, dyslipidemia, COPD, cataracts , chronic low back pain admitted for worsening shortness of breathe. Podiatry was consulted for evaluation of the bilaterally LE. Patient is known to Dr. Maher and see her in the wound care clinic for continue treatment of right foot ulceration. Patient reports that he banged both of his foot on the side of the beds. Patient currently denies pain to his lower extremity. Patient denies n /v/cp/f/ or chills. Patient reports shortness of breathe. 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 SH: former smoker, denies drinking alcohol or illicit drug use ALL: NKDA MEDS: see meds list FH: mother and father- DM Past Patient History - Infectious Disease Hx of Infectious Diseases: None - Past Medical History & Family History Past Medical History?: Yes - Past Social History Smoking Status: Former Smoker - CARDIAC Hx Cardiac Disorders: Yes Hx Hypertension: Yes - PULMONARY Hx Respiratory Disorders: Yes Hx Chronic Obstructive Pulmonary Disease (COPD): Yes (IN THE PAST) - NEUROLOGICAL Hx Neurological Disorder: No - HEENT Hx HEENT Problems: Yes Hx Cataracts: Yes Other/Comment: double vision to the left eye that is patched for saftey - RENAL Hx Chronic Kidney Disease: Yes Type of Dialysis Access: L upper arm Date of Last Dialysis Treatment: 07/03/17 - ENDOCRINE/METABOLIC Hx Endocrine Disorders: Yes Hx Diabetes Mellitus Type 2: Yes - HEMATOLOGICAL/ONCOLOGICAL Hx Blood Disorders: No - INTEGUMENTARY Hx Dermatological Problems: Yes (swollen left hand) - MUSCULOSKELETAL/RHEUMATOLOGICAL Hx Musculoskeletal Disorders: Yes Hx Back Pain: Yes (LUMBAR) Hx Osteoarthritis: Yes Other/Comment: neuropathy - GASTROINTESTINAL Hx Gastrointestinal Disorders: No - GENITOURINARY/GYNECOLOGICAL Hx Genitourinary Disorders: Yes Hx Prostate Problems: Yes - PSYCHIATRIC Hx Psychophysiologic Disorder: No Hx Substance Use: No - SURGICAL HISTORY Hx Cataract Extraction: Yes (RT.EYE) Hx Vascular Surgery: Yes (A/V FISTULA LEFT ARM) Hx Vascular Access Device: Yes (DIALYSIS ACCESS) - ANESTHESIA Hx Anesthesia: Yes Hx Anesthesia Reactions: No Hx Malignant Hyperthermia: No Meds Allergies/Adverse Reactions: Allergies Allergy/AdvReac Type Severity Reaction Status Date / Time No Known Allergies Allergy Verified 07/04/17 14:29 - Medications Medications: Current Medications Acetylcysteine (Acetylcysteine 20%) 4 ml IH [id number] [facility] Last Admin: 07/05/17 12:59 Dose: 4 ml Amlodipine Besylate (Norvasc) 10 mg PO DAILY [facility] Last Admin: 07/05/17 10:26 Dose: Not Given Aspirin (Ecotrin) 325 mg PO DAILY [facility] Last Admin: 07/05/17 10:26 Dose: 325 mg Atorvastatin Calcium (Lipitor) 40 mg PO HS [facility] Last Admin: 07/04/17 22:37 Dose: 40 mg Benzonatate (Tessalon Perles) 200 mg PO TID [facility] Last Admin: 07/05/17 11:24 Dose: 200 mg Calcium Acetate (Phoslo) 667 mg PO TID [facility] Last Admin: 07/05/17 14:19 Dose: 667 mg Carvedilol (Coreg) 25 mg PO BID [facility] Last Admin: 07/05/17 10:26 Dose: Not Given Donepezil HCl (Aricept) 10 mg PO HS [facility] Last Admin: 07/04/17 22:37 Dose: 10 mg Heparin Sodium (Porcine) (Heparin) 5,000 units SC Q8H [facility] PRN Reason: Protocol Last Admin: 07/05/17 10:29 Dose: 5,000 units Hydralazine HCl (Apresoline) 100 mg PO BID [facility] Last Admin: 07/05/17 10:27 Dose: Not Given Doxycycline Hyclate 100 mg/ (Sodium Chloride) 100 mls @ 100 mls/hr IVPB Q12 [facility] PRN Reason: Protocol Last Admin: 07/05/17 10:24 Dose: 100 mls/hr Meropenem 500 mg/ Sodium (Chloride) 50 mls @ 100 mls/hr IVPB 1800 [facility] PRN Reason: Protocol Stop: 07/11/17 22:01 Linezolid (Zyvox 600mg/300ml D5w) 600 mg in 300 mls @ 200 mls/hr IVPB Q12 [facility] PRN Reason: Protocol Stop: 07/12/17 10:01 Last Admin: 07/05/17 10:23 Dose: 200 mls/hr Insulin Human Lispro (Humalog Low) 0 units SC ACHS [facility] PRN Reason: Protocol Levalbuterol HCl (Xopenex) 0.63 mg IH [id number] [facility] Last Admin: 07/05/17 12:59 Dose: 0.63 mg Losartan Potassium (Cozaar) 100 mg PO DAILY [facility] Last Admin: 07/05/17 10:24 Dose: 100 mg Memantine (Namenda) 5 mg PO DAILY [facility] Last Admin: 07/05/17 10:25 Dose: 5 mg Methylprednisolone (Solu-Medrol) 20 mg IVP Q12 [facility] Last Admin: 07/05/17 10:24 Dose: 20 mg Nystatin (Nystatin Oral Susp) 5 ml PO QID [facility] Last Admin: 07/05/17 14:19 Dose: 5 ml [id number] Ethyl Esters (Lovaza) 1 gm PO BID [facility] Last Admin: 07/05/17 10:27 Dose: Not Given Oseltamivir Phosphate (Tamiflu Susp) 30 mg PO DAILY [facility] PRN Reason: Protocol Last Admin: 07/05/17 10:57 Dose: 30 mg Pantoprazole Sodium (Protonix Ec Tab) 40 mg PO ACB [facility] Tamsulosin HCl (Flomax) 0.4 mg PO DAILY [facility] Last Admin: 07/05/17 10:26 Dose: 0.4 mg Vitamin D (Vitamin D 400 Intl Units Tab) 400 intlu PO DAILY [facility] Last Admin: 07/05/17 10:26 Dose: 400 intlu Physical Exam - Constitutional Appears: Well, Non-toxic, No Acute Distress - Extremities Exam Additional comments: VASCULAR: DP/PT pulses 1/4 bilaterally, ECOLOGY PROFESSOR< 3 seconds, skin temperature is WNL NEUROLOGIC: Protective sensation and gross sensation decreased ORTHOPEDIC: Negative pain on palpation to the left lower extremity DERMATOLOGICAL: Ulceration on medial aspect of the right hallux measuring approximately .5 x .5 x .1 cm with wound base mainly fibrotic, no erythema, no tunneling, no undermining, no probe to bone, no drainage, no odor noted. Tiny scab/necrotic ulceration noted to the dorsum of the 4th right digit measuring approximately .2 x .2 cm with no erythema, no tunneling, no undermining, no probe to bone, no drainage, no odor noted. Tiny scab noted to the dorsum of the 2nd left digit measuring approximately .1x .1 cm with no erythema, no tunneling, no undermining, no probe to bone, no drainage, no odor noted. - Neurological Exam Neurological exam: Alert - Psychiatric Exam Psychiatric exam: Normal Affect, Normal Mood Results - Vital Signs Recent Vital Signs: Last Vital Signs Temp 97.5 F L 07/05/17 04:00 Pulse 55 L 07/05/17 11:50 Resp 47 H 07/05/17 11:50 BP 159/56 H 07/05/17 11:01 Pulse Ox 97 07/05/17 11:50 - Labs Result Diagrams: 07/05/17 05:30 07/05/17 05:30 Labs: Laboratory Results - last 24 hr 07/04/17 07/04/17 07/04/17 16:57 21:53 22:10 WBC RBC Hgb Hct MCV MCH MCHC RDW Plt Count MPV Gran % Lymph % (Auto) [place] % (Auto) Eos % (Auto) Baso % (Auto) Gran # Lymph # (Auto) [place] # (Auto) Eos # (Auto) Baso # (Auto) pCO2 40 pO2 82.0 HCO3 30.5 H ABG pH 7.49 H ABG Total CO2 31.7 H ABG O2 Saturation 96.7 ABG Base Excess 6.6 H ABG Potassium 4.0 Sodium 140.0 Chloride 106.0 Glucose 100 Lactate 0.8 FiO2 40.0 Pressure Support 5 Inspiratory BiPAP 10 Potassium Carbon Dioxide Anion Gap BUN Creatinine Est GFR ( Amer) Est GFR (Non-Af Amer) POC Glucose (mg/dL) 92 Random Glucose Hemoglobin A1c Calcium Phosphorus Magnesium Total Bilirubin Direct Bilirubin AST ALT Alkaline Phosphatase Troponin I 0.11 D Total Protein Albumin Globulin Albumin/Globulin Ratio Triglycerides Cholesterol LDL Cholesterol Direct HDL Cholesterol Arterial Blood Potassium 4.0 07/05/17 07/05/17 07/05/17 02:15 05:30 05:30 WBC 10.4 D RBC 4.13 Hgb 11.0 L Hct 36.7 L MCV 88.9 MCH 26.6 MCHC 30.0 L RDW 17.5 H Plt Count 128 MPV 11.4 H Gran % 88.4 H Lymph % (Auto) 7.0 L [place] % (Auto) 4.5 Eos % (Auto) 0.0 L Baso % (Auto) 0.1 Gran # 9.21 H Lymph # (Auto) 0.7 L [place] # (Auto) 0.5 Eos # (Auto) 0.0 Baso # (Auto) 0.01 pCO2 pO2 HCO3 ABG pH ABG Total CO2 ABG O2 Saturation ABG Base Excess ABG Potassium Sodium 143 Chloride 100 Glucose Lactate FiO2 Pressure Support Inspiratory BiPAP Potassium 4.6 Carbon Dioxide 29 Anion Gap 19 BUN 58 H Creatinine 7.1 H Est GFR ( Amer) 9 Est GFR (Non-Af Amer) 8 POC Glucose (mg/dL) Random Glucose 180 H Hemoglobin A1c Calcium 8.9 Phosphorus 5.9 H Magnesium 2.2 Total Bilirubin 1.0 Direct Bilirubin 0.7 H AST 32 ALT 25 Alkaline Phosphatase 78 Troponin I 0.11 Total Protein 7.0 Albumin 3.6 Globulin 3.4 Albumin/Globulin Ratio 1.1 Triglycerides 119 Cholesterol 104 L LDL Cholesterol Direct 37 HDL Cholesterol 30 Arterial Blood Potassium 07/05/17 07/05/17 07/05/17 05:30 07:58 11:20 WBC RBC Hgb Hct MCV MCH MCHC RDW Plt Count MPV Gran % Lymph % (Auto) [place] % (Auto) Eos % (Auto) Baso % (Auto) Gran # Lymph # (Auto) [place] # (Auto) Eos # (Auto) Baso # (Auto) pCO2 pO2 HCO3 ABG pH ABG Total CO2 ABG O2 Saturation ABG Base Excess ABG Potassium Sodium Chloride Glucose Lactate FiO2 Pressure Support Inspiratory BiPAP Potassium Carbon Dioxide Anion Gap BUN Creatinine Est GFR ( Amer) Est GFR (Non-Af Amer) POC Glucose (mg/dL) 184 H 222 H Random Glucose Hemoglobin A1c 6.6 H Calcium Phosphorus Magnesium Total Bilirubin Direct Bilirubin AST ALT Alkaline Phosphatase Troponin I Total Protein Albumin Globulin Albumin/Globulin Ratio Triglycerides Cholesterol LDL Cholesterol Direct HDL Cholesterol Arterial Blood Potassium Assessment & Plan - Assessment and Plan (Free Text) Assessment: 77 year old male with PMHx of DM, HTN, ESRD on HD, dyslipidemia, COPD, cataracts , chronic low back pain for bilaterally foot wounds Plan: Patient examined and evaluated Discussed plan in detail with attending Dr. Maher Labs, chart, vitals reviewed- Cleansed ulceration with saline solution and optifoam applied Will continue to follow patient while in house Thank you for allowing us to take part in patient's care Upon discharge patient will continue to follow up with Dr. Maher in the wound care clinic within 1 week
--- NOTE | 2017-07-05 15:35 | CON ---
DATE: 07/04/2017 REASON FOR CONSULTATION: Shortness of breath, altered mental status, cough, elevated BNP. HISTORY OF PRESENTING ILLNESS: A 77-year-old male, previously known to me from a prior consultation in January. The patient was brought to the emergency room by family members because of cough and increasing shortness of breath. The patient had a full dialysis treatment yesterday. He has been having cough for 2-3 days prior to presentation. Some chills. Some rigors. Progressive shortness of breath, altered mental status, lethargy. Also reportedly, the patient had some moderate beige-color sputum. In the emergency room, he was found to be hypoxic. Lethargic. There is no history of fever. No history of nausea, vomiting or diarrhea. Initial vital signs showed blood pressure of 150/52, heart rate of 58 and a temperature of 99.9. His WBC count was 13.2. Elevated BNP of 22,000. Chest x-ray revealed a right lower lobe infiltrate. Consultation was requested for possible extra dialysis treatment. PAST MEDICAL AND SURGICAL HISTORY: NIDDM, hypertension, obesity, end-stage renal disease, dementia, anemia of chronic kidney disease. FAMILY HISTORY: Noncontributory. SOCIAL HISTORY: Ex-smoker, quit 30 years ago, no alcohol, no IV drug abuse. ALLERGIES: NO KNOWN DRUG ALLERGIES. MEDICATIONS AT HOME: Amlodipine, Flomax, Namenda, losartan, hydralazine, Aricept, vitamin D, Coreg, PhosLo, Lipitor, aspirin. REVIEW OF SYSTEMS: Currently, the patient is lethargic, but arousable. He is following simple commands. He denies any chest pain. He complains of cough. He complains of shortness of breath. He denies any abdominal pain, nausea, vomiting, diarrhea. All other systems are reviewed and unremarkable. PHYSICAL EXAMINATION: GENERAL: Obese elderly male lying in bed in the emergency room. VITAL SIGNS: Blood pressure 150/52, heart rate 58, respiratory rate 24, temperature 99.9. HEENT: Normocephalic, atraumatic, positive pallor, no icterus. NECK: Supple, no JVD. LUNGS: Bilateral equal air entry, left side clear to auscultation, right side decreased breath sounds, positive crackles. CARDIAC: S1 and S2, regular rate and rhythm, no murmur, no rub. ABDOMEN: Obese, distended, soft, nontender, bowel sounds present. EXTREMITIES: Trace lower extremity edema, no clubbing, no cyanosis. SKIN: Normal color, no rash. INTAKE AND OUTPUT: Not charted. LABORATORY DATA: WBC 13.3, hemoglobin 12, hematocrit 38.5, platelets 148, polys 86%. Blood gas ABG, pH of 7.47, pCO2 of 30, pO2 of 135. This is on 40% oxygen. Sodium 145, potassium 4.3, chloride 99, CO2 of 29, BUN 42, creatinine 5.7, glucose 100, calcium 9.3, phosphorus 3.5, magnesium 2.1, total CPK is 481. Troponin 0.07. BNP 22,000, albumin 4.3, globulin 3.4. Chest x-ray: Right lower lobe pneumonia. ASSESSMENT: 1. Respiratory distress, hypoxia, low-grade fever, leukocytosis, right lower lobe pneumonia. 2. Altered mental status. 3. Impending sepsis. 4. Mild volume overload. 5. History of kiv-nrafnuj-iybetvnmg diabetes mellitus. 6. History of hypertension. 7. History of end-stage renal disease. 8. No evidence of anemia at present. 9. No evidence of hyperphosphatemia. PLAN: 1. In light of the patient's respiratory distress, elevated BNP, we will arrange for urgent ultrafiltration. We will send him for DUF for 2 hours to remove 2 kg. 2. Panculture. 3. Start empiric antibiotics to cover for community-acquired pneumonia. 4. Close monitoring in the ICU. 5. Monitor fingersticks and continue insulin coverage. 6. Continue antihypertensives with parameters. 7. Case discussed with Dr. Cleaning at length. 8. Case discussed with ER physician. 9. Case discussed with dialysis staff. 10. More than 35 minutes was that in the care of this critically ill patient. Yadira Fox MD
--- NOTE | 2017-07-05 16:30 | PN ---
DATE: 07/05/2017 LOCATION: The patient is seen in ICU bed 6. SUBJECTIVE: The patient is out of bed to chair today. Overnight nurse's notes were reviewed. The patient was found to be alert, awake, responsive. The patient was not short of breath. The patient was given high-flow oxygen overnight. The patient has productive cough with suctioning required. The patient is seen sitting up in the chair in ICU bed 6. The patient is alert, awake, responsive. The patient appears to be comfortable. Overnight nurse's notes were reviewed, which mention difficulty expectoration, productive cough. OBJECTIVE: VITAL SIGNS: T-max in the last 24-12 hours 99.9. Telemetry shows heart rate averaging 55, 60, 64. Telemetry shows sinus rhythm. Blood pressure in the last 12-24 hours 160/61, 151/102 down to 163/78, 152/45, 130/49, 131/43. Respirations 28, 23, 26, 28. The patient is tachypneic. The patient was placed on FiO2 of 50%, 60 liters high-flow oxygen with oxygen saturation around low 90s. The patient was placed on high-flow oxygen, 50% FiO2 at 60 liters per minute. The patient was placed on high-flow oxygen continuous 50% FiO2, 60 liters per minute. HEENT: The patient's head examination normocephalic, atraumatic. HEENT examination shows pinkish pale conjunctivae. Dry oral mucosa. NECK: No neck rigidity. CHEST: Kyphosis. LUNGS: Shows positive rhonchi, creps, crackles in upper lung [place] anterior-posterior bilaterally. With questionable decreased breath sound at the bases. ABDOMEN: Slightly protuberant. Positive bowel sound. GENITALIA: Male. EXTREMITIES: Shows positive left upper extremity AV fistula, positive surgical scar. Trace swelling of the lower extremity noted. MUSCULOSKELETAL: Examination shows a body mass index of 40.7. Gait examination is not tested. DIAGNOSTICS: From today, WBC 10.4, hemoglobin/hematocrit 11 and 37, platelets 128. Granulocytes 88. ESR 60. PT/PTT 13.3/34.8. Sodium 143, potassium 4.6, chloride 100, CO2 of 29, anion gap 19, BUN 58, creatinine 7.1, GFR 9, glucose 180, uric acid was 5.1, calcium 8.9, phosphorus 5.9, magnesium 2.2. LFTs are normal. Troponin is 0.11, indeterminate range. Cholesterol is 104, triglyceride 119, LDL 37, HDL 30. Procalcitonin level is 1.51, which is elevated. Influenza serology negative. The patient had a CT of the soft tissue of the neck. CT chest, CT soft tissue of the neck, CT head, chest x-ray, and EKG all reviewed. IMPRESSION AND PLAN: 1. BiPAP requiring hypoxic respiratory failure, slow resolving. 2. Severe sepsis secondary to healthcare-associated bilateral multilobar pneumonia and epiglottitis. 3. Questionable tonsillar hypertrophy. 4. End-stage renal disease, hemodialysis dependent via the left upper extremity arteriovenous fistula three times a week. 5. Insulin-requiring diabetes mellitus. 6. Morbid obesity with elevated body mass index of 41. 7. Cough. 8. Acute exacerbation of chronic obstructive pulmonary disease. 9. 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 10. Chronic microvascular ischemic disease of the brain with cerebral cortical atrophy of the brain. 11. Extensive centrilobular pulmonary emphysema with right lower lobe consolidation and right middle lobe consolidation. 12. Left lower lobe atelectasis versus infiltrate. 13. Cardiomegaly. 14. Mitral annular calcification. 15. Dilated main pulmonary artery 3.4-cm diameter. 16. Thoracic dextroscoliosis. 17. Right maxillary sinus partial opacification and left maxillary sinus mucoperiosteal thickening and frontal sinus mucoperiosteal thickening. 18. . 19. Possible epiglottitis with diffuse thickening of the epiglottis and aryepiglottic fold and shotty cervical lymphadenopathy. 20. Centrilobular emphysema of the pulmonary apices. 21. Tachypnea. 22. Low grade fever. 23. Hypertension. 24. Hypoxemia. 25. Leukocytosis with granulocytosis. 26. Elevated erythrocyte sedimentation rate of 60. 27. Normocytic anemia. 28. Hyperprocalcitonemia. 29. Questionable systolic versus diastolic congestive heart failure with elevated BNP of greater than 22,000. 30. Hypoxemia with BiPAP requiring and high-flow oxygen requiring hypoxic respiratory failure. 31. Deconditioning. 32. History of peripheral vascular disease. 33. History of prostate hypertrophy, hyperlipidemia, hypertriglyceridemia, history of dementia, history of hypovitaminosis D, history of secondary hyperparathyroidism with hyperphosphatemia. PLAN: At this time, the patient has been ordered serial labs. The patient's strep pneumoniae is ordered, results pending. Blood, sputum, urine cultures are ordered, results pending. CURRENT CONSULTATIONS: 1. Infectious Disease. 2. Nephrology. 3. Cardiology. 4. Podiatry. The patient's case referred for diabetic education, TCU evaluation. Legionella antigen ordered, results pending. CURRENT MEDICATIONS: Mucomyst 20% nebulizer treatment 4 mL with Xopenex nebulizer treatment every 6 hours ordered. The patient is on hydralazine 100 mg twice a day. Aricept 10 mg h.s. Coreg 25 twice a day, Cozaar 100 mg daily. Doxycycline 100 mg IV q.12. Ecotrin 325 mg daily. Flomax 0.4 mg daily, heparin 5000 subcu q.8, low-dose Humalog sliding scale coverage a.c., Lipitor 40 mg daily, Lovaza 1 g twice a day, meropenem 500 IV daily, Namenda 5 mg daily. The patient is on nitroglycerin drip as per the [employer]) order. Norvasc 10 mg daily, PhosLo 667 mg three times a day, Protonix 40 mg IV daily, Solu-Medrol 20 mg IV q.12. The patient was started on Tamiflu 30 mg daily. The patient was started on Tessalon Perles 200 three times a day for coughing. Cholecalciferol 400 units daily, Xopenex 0.63 mg every 6 hours. The patient was started on Zyvox 600 mg IV q.12. Chest PT ordered. The patient was ordered repeat EKG, echo with Doppler ordered. Consistent carbohydrate diet ordered. The patient has been ordered out of bed, RAIZA stockings, SCDs, occupational therapy, speech therapy, swallow evaluation and therapy ordered. At present, the patient is to be continued on above therapeutic interventions and the patient will be considered for transfer out of the ICU when the patient is stable, not hypoxic and when the patient's overall cardiac, pulmonary status and clinical status is stable and after the patient is cleared by all subspecialty and when the patient is cleared by all subspecialty for transfer out of the ICU. Dictated and electronically signed, not read. Oleg Whitman MD
[2017-07-05] MEDS ORDERED: Meropenem 500 MG in Sodium Chloride 0.9% 50 ML IVPB SCH (18:00)
[2017-07-05] MEDS: Insulin Lispro (humaLOG) LOW Coverage SC SCH ×2 (18:50→22:05)
--- NOTE | 2017-07-05 19:57 | PN ---
DATE: 07/05/2017 SUBJECTIVE: The patient is seen in the ICU. He is sitting in chair. He is eating lunch. He still has bad cough. He is awake. He denies any fevers. He denies any chills. He denies any abdominal pain. He denies any nausea or vomiting. PHYSICAL EXAMINATION: GENERAL: Obese elderly male sitting in chair. VITAL SIGNS: Blood pressure 159/56, heart rate 47, respiratory rate , temperature 97.5, T-max 99.9. HEENT: Normocephalic, atraumatic, positive pallor. NECK: Supple, no JVD. LUNGS: Bilateral equal air entry, bilateral equal expansion, left side clear, right side crackles. CARDIAC: S1, S2. Regular rate and rhythm, no murmur, no rub. ABDOMEN: Obese, distended, soft, nontender, bowel sounds present. EXTREMITIES: Trace lower extremity edema. INTAKE AND OUTPUT: Not charted, but patient had ultrafiltration done yesterday and 3 kg was removed. LABORATORY DATA: WBC 10, hemoglobin 11, hematocrit 36.7, platelets 128. Sodium 143, potassium 4.6, chloride 100, CO2 of 29, BUN 58, creatinine 7.1, glucose 180, calcium 8.9, phosphorus 5.9, magnesium 2.2. Hemoglobin A1c 6.6. Albumin 3.6. Troponin 0.11. Blood cultures, no growth. Sputum culture no growth. Soft tissue of the neck CT, diffuse thickening of the epiglottis and aryepiglottic folds, prominent pharyngeal vessel, shotty cervical lymphadenopathy, sinus disease. CT of the chest, multilobar infiltrates, most extensive in the right lower lobe, extensive centrilobular pulmonary emphysema. CURRENT MEDICATIONS: Mucomyst 100 b.i.d., Aricept, Coreg 25 b.i.d., Cozaar 100, doxycycline 100 q. 12, Ecotrin 325, Flomax 0.4, heparin 5000, Lipitor 40, Lovaza, meropenem 500 q. 12, Namenda 5, amlodipine 10, nystatin, PhosLo, Protonix, Solu-Medrol 20 IV q. 12, Tamiflu, Tessalon Perles, vitamin D, Xopenex, Zyvox. ASSESSMENT: 1. Acute respiratory distress, stridor, airway compromise. 2. Multilobar pneumonia. 3. Status post hypoxemia. 4. Morbid obesity. 5. Iqx-dmguawj-mhvzovuae diabetes mellitus. 6. Hypertension. 7. End-stage renal disease. 8. Secondary hyperparathyroidism. 9. Anemia of chronic disease. PLAN: 1. The patient was urgently ultrafiltrated yesterday. He had 2 hours of ultrafiltration with removal of 3 kg. 2. Clinically, the patient is much improved today. He is on IV antibiotics, IV steroids, he was treated with high-flow oxygen. 3. The patient will receive dialysis again today, we will try to remove another 2 kg. 4. Continue antibiotics as per ID recommendations. 5. ENT followup. 6. Continue to follow up in the ICU. 7. Case discussed with ICU staff at length, case discussed with dialysis staff. More than 35 minutes was spent in the care of this critically ill patient. Yadira Fox MD
--- NOTE | 2017-07-05 22:34 | CON ---
DATE: 07/05/2017 CARDIOLOGY CONSULTATION HISTORY OF PRESENT ILLNESS: The patient is a 77-year-old male who presents with shortness of breath. PAST MEDICAL HISTORY: Includes end-stage renal disease in which he has been on dialysis for 4 years. He suffers from diabetes mellitus, hypertension and hyperlipidemia. He has documented peripheral vascular disease. He denies previous cardiac history. He may suffer from COPD from his former smoking. He denies chest pain. After dialysis yesterday, the patient's breathing is much improved. SOCIAL HISTORY: The patient stopped smoking several years ago. REVIEW OF SYSTEMS: Fourteen-point review of systems was reviewed in detail. Other than dyspnea, there is no chest pain, no edema, no cardiac symptomatology. PHYSICAL EXAMINATION: VITAL SIGNS: Blood pressure is 159/56, the heart rate is in the 50s. NECK: Negative JVD. LUNGS: Bilateral rhonchi. HEART: Reveals S1 and S2. EXTREMITIES: Without edema. EKG shows normal sinus rhythm with nonspecific ST-T changes. LABORATORY DATA: Hemoglobin is 11. Chemistries, glucose is 180. Troponins of 0.11 with a BUN and creatinine 58 and 7.1. IMPRESSION: 1. Acute systolic congestive heart failure. 2. End-stage renal disease. 3. Diabetes mellitus. 4. Hypertension. 5. Hypercholesterolemia. 6. Dyspnea. Given these findings, I have ordered an echocardiogram to evaluate his LV function. The patient's breathing is much improved. He will likely need another dialysis soon. Yong Duran MD
[2017-07-06] MEDS: Acetylcysteine 20% Inhal Soln (4ml) IH SCH ×4 (03:43→19:42)
[2017-07-06] MEDS: Levalbuterol 0.63 MG/3 ML Inhal Soln UD IH SCH ×4 (03:43→19:43)
[2017-07-06 05:53] LABS: BASO # 0.01 K/mm3 (0.0-2.0); BASO % 0.1 % (0.0-3.0); GRAN # 9.83 (1.4-6.5); GRAN % 89.8 % (50.0-68.0); HEMOGLOBIN 10.3 g/dL (14.0-18.0); LYMPH # 0.6 (1.2-3.4); LYMPH % 5.2 % (22.0-35.0); MEAN CELL VOLUME 87.8 fl (80.0-105.0); MEAN CORPUSCULAR HEMOGLOBIN 27.3 pg (25.0-35.0); MEAN CORPUSCULAR HGB CONC 31.1 g/dl (31.0-37.0); MONO # 0.5 (0.1-0.6); MONO % 4.9 % (1.0-6.0); RBC 3.77 10^6/uL (3.5-6.1); RED CELL DISTRIBUTION WIDTH 17.1 % (11.5-14.5)
[2017-07-06 06:33] LABS: ALB/GLOB RATIO 1.1 (1.1-1.8); BILIRUBIN,DIRECT 0.7 mg/dL (0.0-0.4); CALCIUM 7.9 mg/dL (8.4-10.5); MAGNESIUM 1.9 mg/dL (1.7-2.2)
[2017-07-06] MEDS: Insulin Lispro (humaLOG) LOW Coverage SC SCH ×4 (07:30→22:16)
[2017-07-06] MEDS: Pantoprazole 40 mg EC Tab PO SCH (08:00)
--- NOTE | 2017-07-06 08:01 | CP.CCUPN ---
<Esmer Willingham - Last Filed: 07/06/17 09:30> CCU Subjective - Physician Review Subjective (Free Text): 07/06/17 07:58 No acute overnight events. Patient stable all night, saturating 96-98 on nasal cannula. Patient with no complaints this morning, denies pain, denies cp, sob, nausea, vomiting or diarrhea. Critical Care Time Spent (in minutes): 45 CCU Objective - Vital Signs / Intake & Output Vital Signs (Last 4 hours): Vital Signs Temp Pulse Resp BP Pulse Ox 07/06/17 06:40 57 L 33 H 97 07/06/17 06:30 58 L 23 143/68 95 07/06/17 06:25 56 L 26 H 149/37 L 94 L 07/06/17 06:20 54 L 25 H 95 07/06/17 06:10 55 L 26 H 96 07/06/17 06:00 54 L 28 H 96 07/06/17 05:50 56 L 30 H 96 07/06/17 05:40 64 94 L 07/06/17 05:30 54 L 34 H 93 L 07/06/17 05:20 55 L 26 H 94 L 07/06/17 05:10 56 L 29 H 92 L 07/06/17 05:00 67 28 H 138/58 L 93 L 07/06/17 04:57 60 30 H 07/06/17 04:50 55 L 20 07/06/17 04:49 56 L 28 H 07/06/17 04:48 56 L 07/06/17 04:47 56 L 27 H 07/06/17 04:46 58 L 28 H 07/06/17 04:45 57 L 17 07/06/17 04:44 55 L 38 H 07/06/17 04:43 55 L 30 H 07/06/17 04:42 57 L 30 H 07/06/17 04:41 55 L 18 07/06/17 04:40 56 L 27 H 07/06/17 04:39 55 L 19 07/06/17 04:38 57 L 24 07/06/17 04:37 56 L 63 H 07/06/17 04:36 57 L 31 H 07/06/17 04:35 58 L 19 07/06/17 04:34 59 L 32 H 07/06/17 04:30 55 L 24 38 L 07/06/17 04:20 56 L 28 H 92 L 07/06/17 04:14 57 L 29 H 07/06/17 04:13 57 L 29 H 07/06/17 04:12 59 L 23 07/06/17 04:10 58 L 19 85 L 07/06/17 04:00 98.5 F 143/44 L 96 Intake and Output (Last 8hrs): Intake & Output 07/05/17 07/06/17 07/06/17 22:59 06:59 14:59 Intake Total 1228 400 Output Total 4000 Balance -2772 400 Intake: IV 420 400 Right Antecubital 420 400 Oral 808 Output: Other 4000 Other: # Bowel Movements 0 - Physical Exam Head: Positive for: Atraumatic, Normocephalic Pupils: Positive for: PERRL Extroacular Muscles: Positive for: EOMI Conjunctiva: Positive for: Normal Mouth: Positive for: Normal Tounge (no tongue swelling noted) Pharnyx: Positive for: Normal, EXUDATE, TONSILS ENLARGED, Peritonsilar Swelling Respiratory/Chest: Positive for: Rhonchi (bilaterally- improving.). Negative for: Clear to Auscultation, Good Air Exchange, Respiratory Distress, Accessory Muscle Use, Wheezes, Decreased Breath Sounds, Rales, Retracting, Tachypneic Cardiovascular: Positive for: Regular Rate and Rhythm, Murmurs, Normal S1, S2. Negative for: Tachycardic, Bradycardic Abdomen: Positive for: Normal Bowel Sounds. Negative for: Tenderness, Distention (obese), Peritoneal Signs, Rebound Back: Positive for: Normal Inspection Upper Extremity: Positive for: Normal Inspection Lower Extremity: Negative for: Edema Neurological: Positive for: GCS=15, CN II-XII Intact, Speech Normal Skin: Positive for: Warm, Dry, Normal Color Psychiatric: Positive for: Alert, Oriented x 3, Normal Insight, Normal Concentration - Medications Active Medications: Active Medications Generic Name Dose Route Start Last Admin Trade Name Freq PRN Reason Stop Dose Admin Acetylcysteine 4 ml 07/04/17 18:00 07/06/17 07:27 Acetylcysteine 20% IH 4 ml [id number] JERE Administration Amlodipine Besylate 10 mg 07/05/17 10:00 07/05/17 10:26 Norvasc PO Not Given DAILY JERE Aspirin 325 mg 07/04/17 17:15 07/05/17 10:26 Ecotrin PO 325 mg DAILY JERE Administration Atorvastatin Calcium 40 mg 07/04/17 22:00 07/05/17 22:00 Lipitor PO 40 mg HS JERE Administration Benzonatate 200 mg 07/05/17 11:00 07/05/17 18:46 Tessalon Perles PO 200 mg TID JERE Administration Calcium Acetate 667 mg 07/04/17 18:00 07/05/17 18:46 Phoslo PO 667 mg TID JERE Administration Carvedilol 25 mg 07/04/17 18:00 07/05/17 18:42 Coreg PO Not Given BID JERE Donepezil HCl 10 mg 07/04/17 22:00 07/05/17 22:01 Aricept PO 10 mg HS JERE Administration Heparin Sodium (Porcine) 5,000 units 07/04/17 16:00 07/06/17 01:00 Heparin SC 5,000 units Q8H JERE Administration Protocol Hydralazine HCl 100 mg 07/04/17 18:00 07/05/17 18:46 Apresoline PO 100 mg BID JERE Administration Doxycycline Hyclate 100 mg/ 100 mls @ 100 mls/hr 07/04/17 22:00 07/05/17 21: 59 Sodium Chloride IVPB 100 mls/hr Q12 JERE Administration Protocol Meropenem 500 mg/ Sodium 50 mls @ 100 mls/hr 07/05/17 18:00 07/05/17 18:43 Chloride IVPB 07/11/17 22:01 100 mls/hr 1800 JERE Administration Protocol Linezolid 600 mg in 300 mls @ 200 mls/hr 07/05/17 10:00 07/05/17 21:59 Zyvox 600mg/300ml D5w IVPB 07/12/17 10:01 200 mls/hr Q12 JERE Administration Protocol Insulin Human Lispro 0 units 07/05/17 16:30 07/05/17 22:05 Humalog Low SC 1 units ACHS JERE Administration Protocol Levalbuterol HCl 0.63 mg 07/04/17 18:00 07/06/17 07:26 Xopenex IH 0.63 mg [id number] JERE Administration Losartan Potassium 100 mg 07/04/17 17:15 03/01/18 10:24 Cozaar PO 100 mg DAILY JERE Administration Memantine 5 mg 07/04/17 17:15 07/05/17 10:25 Namenda PO 5 mg DAILY JERE Administration Methylprednisolone 20 mg 07/04/17 22:00 07/05/17 22:00 Solu-Medrol IVP 20 mg Q12 JERE Administration Nystatin 5 ml 07/05/17 14:00 07/05/17 22:01 Nystatin Oral Susp PO 5 ml QID JERE Administration [id number] Ethyl Esters 1 gm 07/05/17 10:00 07/05/17 18:42 Lovaza PO Not Given BID JERE Oseltamivir Phosphate 30 mg 07/05/17 10:00 07/05/17 10:57 Tamiflu Susp PO 30 mg DAILY JERE Administration Protocol Pantoprazole Sodium 40 mg 07/06/17 07:30 Protonix Ec Tab PO ACB JERE Tamsulosin HCl 0.4 mg 07/04/17 17:15 07/05/17 10:26 Flomax PO 0.4 mg DAILY JERE Administration Vitamin D 400 intlu 07/05/17 10:00 07/05/17 10:26 Vitamin D 400 Intl Units Tab PO 400 intlu DAILY JERE Administration - Patient Studies Lab Studies: Microbiology Studies 07/04/17 23:15 Gram Stain - Preliminary Sputum Lab Studies 07/06/17 07/06/17 07/06/17 Range/Units 07:30 05:29 04:50 WBC 11.0 (4.5-11.0) 10^3/ul RBC 3.77 (3.5-6.1) 10^6/uL Hgb 10.3 L (14.0-18.0) g/dL Hct 33.1 L (42.0-52.0) % MCV 87.8 (80.0-105.0) fl MCH 27.3 (25.0-35.0) pg MCHC 31.1 (31.0-37.0) g/dl RDW 17.1 H (11.5-14.5) % Plt Count 140 (120.0-450.0) 10^3/uL MPV 12.0 H (7.0-11.0) fl Gran % 89.8 H (50.0-68.0) % Lymph % (Auto) 5.2 L (22.0-35.0) % Marion % (Auto) 4.9 (1.0-6.0) % Eos % (Auto) 0.0 L (1.5-5.0) % Baso % (Auto) 0.1 (0.0-3.0) % Gran # 9.83 H (1.4-6.5) Lymph # (Auto) 0.6 L (1.2-3.4) Marion # (Auto) 0.5 (0.1-0.6) Eos # (Auto) 0.0 (0.0-0.7) Baso # (Auto) 0.01 (0.0-2.0) K/mm3 Sodium 138 (132-148) mmol/L Potassium 4.5 (3.6-5.0) mmol/L Chloride 101 (98-107) mmol/L Carbon Dioxide 25 (21-33) mmol/L Anion Gap 17 (10-20) BUN 49 H (7-21) mg/dL Creatinine 4.3 H (0.8-1.5) mg/dl Est GFR ( Amer) 16 Est GFR (Non-Af Amer) 13 POC Glucose (mg/dL) 214 H (65-110) mg/dL Random Glucose 202 H (70-110) mg/dL Hemoglobin A1c (4.2-6.5) % Calcium 7.9 L (8.4-10.5) mg/dL Phosphorus 4.8 H (2.5-4.5) mg/dL Magnesium 1.9 (1.7-2.2) mg/dL Total Bilirubin 0.8 (0.2-1.3) mg/dL Direct Bilirubin 0.7 H (0.0-0.4) mg/dL AST 30 (17-59) U/L ALT 23 (7-56) U/L Alkaline Phosphatase 62 (38-126) U/L Total Protein 5.7 L (5.8-8.3) g/dL Albumin 3.0 (3.0-4.8) g/dL Globulin 2.7 gm/dL Albumin/Globulin Ratio 1.1 (1.1-1.8) 07/05/17 07/05/17 07/05/17 Range/Units 21:50 16:01 11:20 WBC (4.5-11.0) 10^3/ul RBC (3.5-6.1) 10^6/uL Hgb (14.0-18.0) g/dL Hct (42.0-52.0) % MCV (80.0-105.0) fl MCH (25.0-35.0) pg MCHC (31.0-37.0) g/dl RDW (11.5-14.5) % Plt Count (120.0-450.0) 10^3/uL MPV (7.0-11.0) fl Gran % (50.0-68.0) % Lymph % (Auto) (22.0-35.0) % Marion % (Auto) (1.0-6.0) % Eos % (Auto) (1.5-5.0) % Baso % (Auto) (0.0-3.0) % Gran # (1.4-6.5) Lymph # (Auto) (1.2-3.4) Marion # (Auto) (0.1-0.6) Eos # (Auto) (0.0-0.7) Baso # (Auto) (0.0-2.0) K/mm3 Sodium (132-148) mmol/L Potassium (3.6-5.0) mmol/L Chloride (98-107) mmol/L Carbon Dioxide (21-33) mmol/L Anion Gap (10-20) BUN (7-21) mg/dL Creatinine (0.8-1.5) mg/dl Est GFR ( Amer) Est GFR (Non-Af Amer) POC Glucose (mg/dL) 197 H 223 H 222 H (65-110) mg/dL Random Glucose (70-110) mg/dL Hemoglobin A1c (4.2-6.5) % Calcium (8.4-10.5) mg/dL Phosphorus (2.5-4.5) mg/dL Magnesium (1.7-2.2) mg/dL Total Bilirubin (0.2-1.3) mg/dL Direct Bilirubin (0.0-0.4) mg/dL AST (17-59) U/L ALT (7-56) U/L Alkaline Phosphatase (38-126) U/L Total Protein (5.8-8.3) g/dL Albumin (3.0-4.8) g/dL Globulin gm/dL Albumin/Globulin Ratio (1.1-1.8) 07/05/17 07/05/17 Range/Units 07:58 05:30 WBC (4.5-11.0) 10^3/ul RBC (3.5-6.1) 10^6/uL Hgb (14.0-18.0) g/dL Hct (42.0-52.0) % MCV (80.0-105.0) fl MCH (25.0-35.0) pg MCHC (31.0-37.0) g/dl RDW (11.5-14.5) % Plt Count (120.0-450.0) 10^3/uL MPV (7.0-11.0) fl Gran % (50.0-68.0) % Lymph % (Auto) (22.0-35.0) % Marion % (Auto) (1.0-6.0) % Eos % (Auto) (1.5-5.0) % Baso % (Auto) (0.0-3.0) % Gran # (1.4-6.5) Lymph # (Auto) (1.2-3.4) Marion # (Auto) (0.1-0.6) Eos # (Auto) (0.0-0.7) Baso # (Auto) (0.0-2.0) K/mm3 Sodium (132-148) mmol/L Potassium (3.6-5.0) mmol/L Chloride (98-107) mmol/L Carbon Dioxide (21-33) mmol/L Anion Gap (10-20) BUN (7-21) mg/dL Creatinine (0.8-1.5) mg/dl Est GFR ( Amer) Est GFR (Non-Af Amer) POC Glucose (mg/dL) 184 H (65-110) mg/dL Random Glucose (70-110) mg/dL Hemoglobin A1c 6.6 H (4.2-6.5) % Calcium (8.4-10.5) mg/dL Phosphorus (2.5-4.5) mg/dL Magnesium (1.7-2.2) mg/dL Total Bilirubin (0.2-1.3) mg/dL Direct Bilirubin (0.0-0.4) mg/dL AST (17-59) U/L ALT (7-56) U/L Alkaline Phosphatase (38-126) U/L Total Protein (5.8-8.3) g/dL Albumin (3.0-4.8) g/dL Globulin gm/dL Albumin/Globulin Ratio (1.1-1.8) Laboratory Results - last 24 hr 07/05/17 07/05/17 07/05/17 05:30 07:58 11:20 WBC RBC Hgb Hct MCV MCH MCHC RDW Plt Count MPV Gran % Lymph % (Auto) Marion % (Auto) Eos % (Auto) Baso % (Auto) Gran # Lymph # (Auto) Marion # (Auto) Eos # (Auto) Baso # (Auto) Sodium Potassium Chloride Carbon Dioxide Anion Gap BUN Creatinine Est GFR ( Amer) Est GFR (Non-Af Amer) POC Glucose (mg/dL) 184 H 222 H Random Glucose Hemoglobin A1c 6.6 H Calcium Phosphorus Magnesium Total Bilirubin Direct Bilirubin AST ALT Alkaline Phosphatase Total Protein Albumin Globulin Albumin/Globulin Ratio 07/05/17 07/05/17 07/06/17 16:01 21:50 04:50 WBC 11.0 RBC 3.77 Hgb 10.3 L Hct 33.1 L MCV 87.8 MCH 27.3 MCHC 31.1 RDW 17.1 H Plt Count 140 MPV 12.0 H Gran % 89.8 H Lymph % (Auto) 5.2 L Marion % (Auto) 4.9 Eos % (Auto) 0.0 L Baso % (Auto) 0.1 Gran # 9.83 H Lymph # (Auto) 0.6 L Marion # (Auto) 0.5 Eos # (Auto) 0.0 Baso # (Auto) 0.01 Sodium Potassium Chloride Carbon Dioxide Anion Gap BUN Creatinine Est GFR ( Amer) Est GFR (Non-Af Amer) POC Glucose (mg/dL) 223 H 197 H Random Glucose Hemoglobin A1c Calcium Phosphorus Magnesium Total Bilirubin Direct Bilirubin AST ALT Alkaline Phosphatase Total Protein Albumin Globulin Albumin/Globulin Ratio 07/06/17 07/06/17 05:29 07:30 WBC RBC Hgb Hct MCV MCH MCHC RDW Plt Count MPV Gran % Lymph % (Auto) Marion % (Auto) Eos % (Auto) Baso % (Auto) Gran # Lymph # (Auto) Marion # (Auto) Eos # (Auto) Baso # (Auto) Sodium 138 Potassium 4.5 Chloride 101 Carbon Dioxide 25 Anion Gap 17 BUN 49 H Creatinine 4.3 H Est GFR ( Amer) 16 Est GFR (Non-Af Amer) 13 POC Glucose (mg/dL) 214 H Random Glucose 202 H Hemoglobin A1c Calcium 7.9 L Phosphorus 4.8 H Magnesium 1.9 Total Bilirubin 0.8 Direct Bilirubin 0.7 H AST 30 ALT 23 Alkaline Phosphatase 62 Total Protein 5.7 L Albumin 3.0 Globulin 2.7 Albumin/Globulin Ratio 1.1 EKG/Cardiology Studies: Cardiology / EKG Studies 07/05/17 07:00 EKG [ELECTROCARDIOGRAM] DAILY Comment: Reason For Exam: CNF 07/06/17 07:00 EKG [ELECTROCARDIOGRAM] DAILY Comment: Reason For Exam: CNF Fingerstick Blood Sugar Results: 197 Results Reviewed to Date: Yes Critical Care Progress Note - Nutrition Nutrition: Nutrition Category Date Time Status Consistent Carbohydrate [DIET] Diets 07/04/17 Breakfast Ordered Assessment/Plan - Assessment and Plan (Free Text) Assessment: Patient is a 77 y/o with pmh of ESRD on Sunday//Sunday hemodialysis, IDDM, CVA with mild expressive aphasia? tobacco abuse, copd, admitted with severe community acquired pneumonia and epiglotitis. Patient was hypoxic on room air, was stable on high flow all night. Patient is currently on nasal cannula and is saturating around 96-98%. Plan: Neuro: stable at baseline, on namenda and aricept. Pulm: severe community acquired pneumonia with epiglottis with underlying emphysema - Continue with abx, tamiflu, and bronchodilators. - Continue with solu-medrol tapering dose - head of bed elevation above 35 degrees. - ENT saw patient, no intervention at this time. Cardio-Underlying chf, echo ordered, cardiology following. keep map above 65%, on po bp meds for h/o htn. On asa and Lipitor. Episode of bradycardia on tele monitor- hold coreg. ID: CAP- on doxy and merrem, and zyvox. leukocytosis trended down, and afebrile. So far no growth on the cultures. Also on tamiflu for possible influenza. Endo: h/o dm, on insulin sliding scale, and fingersticks achs. Maintain euglycemia Renal: ESRD- s/p HD yesterday, on phoslo, nephrology following. Heme: stable, continue to monitor. Gi: diabetic diet, ppi for gi prophylaxis. DVT prophylaxis: heparin sc. Dispo- transfer patient to tele. Patient seen, examined and case discussed with the construction quality control manager. - Date & Time Date: 07/06/17 Time: 08:05 <Papito Campbell - Last Filed: 07/06/17 10:01> CCU Objective - Vital Signs / Intake & Output Vital Signs (Last 4 hours): Vital Signs Pulse Resp BP Pulse Ox 07/06/17 06:40 57 L 33 H 97 07/06/17 06:30 58 L 23 143/68 95 07/06/17 06:25 56 L 26 H 149/37 L 94 L 07/06/17 06:20 54 L 25 H 95 07/06/17 06:10 55 L 26 H 96 07/06/17 06:00 54 L 28 H 96 Intake and Output (Last 8hrs): Intake & Output 07/05/17 07/06/17 07/06/17 22:59 06:59 14:59 Intake Total 1228 400 Output Total 4000 Balance -2772 400 Intake: IV 420 400 Right Antecubital 420 400 Oral 808 Output: Other 4000 Other: # Bowel Movements 0 - Medications Active Medications: Active Medications Generic Name Dose Route Start Last Admin Trade Name Freq PRN Reason Stop Dose Admin Acetylcysteine 4 ml 07/04/17 18:00 07/06/17 07:27 Acetylcysteine 20% IH 4 ml [id number] JERE Administration Amlodipine Besylate 10 mg 07/05/17 10:00 07/05/17 10:26 Norvasc PO Not Given DAILY JERE Aspirin 325 mg 07/04/17 17:15 07/05/17 10:26 Ecotrin PO 325 mg DAILY JERE Administration Atorvastatin Calcium 40 mg 07/04/17 22:00 07/05/17 22:00 Lipitor PO 40 mg HS JERE Administration Benzonatate 200 mg 07/05/17 11:00 07/05/17 18:46 Tessalon Perles PO 200 mg TID JERE Administration Calcium Acetate 667 mg 07/04/17 18:00 07/05/17 18:46 Phoslo PO 667 mg TID JERE Administration Carvedilol 25 mg 07/04/17 18:00 07/05/17 18:42 Coreg PO Not Given BID JERE Donepezil HCl 10 mg 07/04/17 22:00 07/05/17 22:01 Aricept PO 10 mg HS JERE Administration Heparin Sodium (Porcine) 5,000 units 07/04/17 16:00 07/06/17 01:00 Heparin SC 5,000 units Q8H JERE Administration Protocol Hydralazine HCl 100 mg 07/04/17 18:00 07/05/17 18:46 Apresoline PO 100 mg BID JERE Administration Doxycycline Hyclate 100 mg/ 100 mls @ 100 mls/hr 07/04/17 22:00 07/05/17 21: 59 Sodium Chloride IVPB 100 mls/hr Q12 JERE Administration Protocol Linezolid 600 mg in 300 mls @ 200 mls/hr 07/05/17 10:00 07/05/17 21:59 Zyvox 600mg/300ml D5w IVPB 07/12/17 10:01 200 mls/hr Q12 JERE Administration Protocol Meropenem 500 mg/ Sodium 50 mls @ 100 mls/hr 07/06/17 10:00 Chloride IVPB 07/11/17 22:01 Q12 JERE Protocol Insulin Human Lispro 0 units 07/05/17 16:30 07/05/17 22:05 Humalog Low SC 1 units ACHS JERE Administration Protocol Levalbuterol HCl 0.63 mg 07/04/17 18:00 07/06/17 07:26 Xopenex IH 0.63 mg [id number] JERE Administration Losartan Potassium 100 mg 07/04/17 17:15 07/05/17 10:24 Cozaar PO 100 mg DAILY JERE Administration Memantine 5 mg 07/04/17 17:15 07/05/17 10:25 Namenda PO 5 mg DAILY JERE Administration Methylprednisolone 20 mg 07/06/17 10:00 Solu-Medrol IVP DAILY JERE Nystatin 5 ml 07/05/17 14:00 07/05/17 22:01 Nystatin Oral Susp PO 5 ml QID JERE Administration Ibcsu-8-Nrar Ethyl Esters 1 gm 07/05/17 10:00 07/05/17 18:42 Lovaza PO Not Given BID JERE Oseltamivir Phosphate 30 mg 07/05/17 10:00 07/05/17 10:57 Tamiflu Susp PO 30 mg DAILY JERE Administration Protocol Pantoprazole Sodium 40 mg 07/06/17 07:30 Protonix Ec Tab PO ACB JERE Tamsulosin HCl 0.4 mg 07/04/17 17:15 07/05/17 10:26 Flomax PO 0.4 mg DAILY JERE Administration Vitamin D 400 intlu 07/05/17 10:00 07/05/17 10:26 Vitamin D 400 Intl Units Tab PO 400 intlu DAILY JERE Administration - Patient Studies Lab Studies: Microbiology Studies 07/04/17 23:15 Gram Stain - Final Sputum Sputum Culture - Final NORMAL ORAL RYAN Lab Studies 07/06/17 07/06/17 07/06/17 Range/Units 07:30 05:29 04:50 WBC 11.0 (4.5-11.0) 10^3/ul RBC 3.77 (3.5-6.1) 10^6/uL Hgb 10.3 L (14.0-18.0) g/dL Hct 33.1 L (42.0-52.0) % MCV 87.8 (80.0-105.0) fl MCH 27.3 (25.0-35.0) pg MCHC 31.1 (31.0-37.0) g/dl RDW 17.1 H (11.5-14.5) % Plt Count 140 (120.0-450.0) 10^3/uL MPV 12.0 H (7.0-11.0) fl Gran % 89.8 H (50.0-68.0) % Lymph % (Auto) 5.2 L (22.0-35.0) % Marion % (Auto) 4.9 (1.0-6.0) % Eos % (Auto) 0.0 L (1.5-5.0) % Baso % (Auto) 0.1 (0.0-3.0) % Gran # 9.83 H (1.4-6.5) Lymph # (Auto) 0.6 L (1.2-3.4) Marion # (Auto) 0.5 (0.1-0.6) Eos # (Auto) 0.0 (0.0-0.7) Baso # (Auto) 0.01 (0.0-2.0) K/mm3 Sodium 138 (132-148) mmol/L Potassium 4.5 (3.6-5.0) mmol/L Chloride 101 (98-107) mmol/L Carbon Dioxide 25 (21-33) mmol/L Anion Gap 17 (10-20) BUN 49 H (7-21) mg/dL Creatinine 4.3 H (0.8-1.5) mg/dl Est GFR ( Amer) 16 Est GFR (Non-Af Amer) 13 POC Glucose (mg/dL) 214 H (65-110) mg/dL Random Glucose 202 H (70-110) mg/dL Hemoglobin A1c (4.2-6.5) % Calcium 7.9 L (8.4-10.5) mg/dL Phosphorus 4.8 H (2.5-4.5) mg/dL Magnesium 1.9 (1.7-2.2) mg/dL Total Bilirubin 0.8 (0.2-1.3) mg/dL Direct Bilirubin 0.7 H (0.0-0.4) mg/dL AST 30 (17-59) U/L ALT 23 (7-56) U/L Alkaline Phosphatase 62 (38-126) U/L Total Protein 5.7 L (5.8-8.3) g/dL Albumin 3.0 (3.0-4.8) g/dL Globulin 2.7 gm/dL Albumin/Globulin Ratio 1.1 (1.1-1.8) 07/05/17 07/05/17 07/05/17 Range/Units 21:50 16:01 11:20 WBC (4.5-11.0) 10^3/ul RBC (3.5-6.1) 10^6/uL Hgb (14.0-18.0) g/dL Hct (42.0-52.0) % MCV (80.0-105.0) fl MCH (25.0-35.0) pg MCHC (31.0-37.0) g/dl RDW (11.5-14.5) % Plt Count (120.0-450.0) 10^3/uL MPV (7.0-11.0) fl Gran % (50.0-68.0) % Lymph % (Auto) (22.0-35.0) % Marion % (Auto) (1.0-6.0) % Eos % (Auto) (1.5-5.0) % Baso % (Auto) (0.0-3.0) % Gran # (1.4-6.5) Lymph # (Auto) (1.2-3.4) Marion # (Auto) (0.1-0.6) Eos # (Auto) (0.0-0.7) Baso # (Auto) (0.0-2.0) K/mm3 Sodium (132-148) mmol/L Potassium (3.6-5.0) mmol/L Chloride (98-107) mmol/L Carbon Dioxide (21-33) mmol/L Anion Gap (10-20) BUN (7-21) mg/dL Creatinine (0.8-1.5) mg/dl Est GFR ( Amer) Est GFR (Non-Af Amer) POC Glucose (mg/dL) 197 H 223 H 222 H (65-110) mg/dL Random Glucose (70-110) mg/dL Hemoglobin A1c (4.2-6.5) % Calcium (8.4-10.5) mg/dL Phosphorus (2.5-4.5) mg/dL Magnesium (1.7-2.2) mg/dL Total Bilirubin (0.2-1.3) mg/dL Direct Bilirubin (0.0-0.4) mg/dL AST (17-59) U/L ALT (7-56) U/L Alkaline Phosphatase (38-126) U/L Total Protein (5.8-8.3) g/dL Albumin (3.0-4.8) g/dL Globulin gm/dL Albumin/Globulin Ratio (1.1-1.8) 07/05/17 07/05/17 Range/Units 07:58 05:30 WBC (4.5-11.0) 10^3/ul RBC (3.5-6.1) 10^6/uL Hgb (14.0-18.0) g/dL Hct (42.0-52.0) % MCV (80.0-105.0) fl MCH (25.0-35.0) pg MCHC (31.0-37.0) g/dl RDW (11.5-14.5) % Plt Count (120.0-450.0) 10^3/uL MPV (7.0-11.0) fl Gran % (50.0-68.0) % Lymph % (Auto) (22.0-35.0) % Marion % (Auto) (1.0-6.0) % Eos % (Auto) (1.5-5.0) % Baso % (Auto) (0.0-3.0) % Gran # (1.4-6.5) Lymph # (Auto) (1.2-3.4) Marion # (Auto) (0.1-0.6) Eos # (Auto) (0.0-0.7) Baso # (Auto) (0.0-2.0) K/mm3 Sodium (132-148) mmol/L Potassium (3.6-5.0) mmol/L Chloride (98-107) mmol/L Carbon Dioxide (21-33) mmol/L Anion Gap (10-20) BUN (7-21) mg/dL Creatinine (0.8-1.5) mg/dl Est GFR ( Amer) Est GFR (Non-Af Amer) POC Glucose (mg/dL) 184 H (65-110) mg/dL Random Glucose (70-110) mg/dL Hemoglobin A1c 6.6 H (4.2-6.5) % Calcium (8.4-10.5) mg/dL Phosphorus (2.5-4.5) mg/dL Magnesium (1.7-2.2) mg/dL Total Bilirubin (0.2-1.3) mg/dL Direct Bilirubin (0.0-0.4) mg/dL AST (17-59) U/L ALT (7-56) U/L Alkaline Phosphatase (38-126) U/L Total Protein (5.8-8.3) g/dL Albumin (3.0-4.8) g/dL Globulin gm/dL Albumin/Globulin Ratio (1.1-1.8) Laboratory Results - last 24 hr 07/05/17 07/05/17 07/05/17 05:30 07:58 11:20 WBC RBC Hgb Hct MCV MCH MCHC RDW Plt Count MPV Gran % Lymph % (Auto) Marion % (Auto) Eos % (Auto) Baso % (Auto) Gran # Lymph # (Auto) Marion # (Auto) Eos # (Auto) Baso # (Auto) Sodium Potassium Chloride Carbon Dioxide Anion Gap BUN Creatinine Est GFR ( Amer) Est GFR (Non-Af Amer) POC Glucose (mg/dL) 184 H 222 H Random Glucose Hemoglobin A1c 6.6 H Calcium Phosphorus Magnesium Total Bilirubin Direct Bilirubin AST ALT Alkaline Phosphatase Total Protein Albumin Globulin Albumin/Globulin Ratio 07/05/17 07/05/17 07/06/17 16:01 21:50 04:50 WBC 11.0 RBC 3.77 Hgb 10.3 L Hct 33.1 L MCV 87.8 MCH 27.3 MCHC 31.1 RDW 17.1 H Plt Count 140 MPV 12.0 H Gran % 89.8 H Lymph % (Auto) 5.2 L Marion % (Auto) 4.9 Eos % (Auto) 0.0 L Baso % (Auto) 0.1 Gran # 9.83 H Lymph # (Auto) 0.6 L Marion # (Auto) 0.5 Eos # (Auto) 0.0 Baso # (Auto) 0.01 Sodium Potassium Chloride Carbon Dioxide Anion Gap BUN Creatinine Est GFR ( Amer) Est GFR (Non-Af Amer) POC Glucose (mg/dL) 223 H 197 H Random Glucose Hemoglobin A1c Calcium Phosphorus Magnesium Total Bilirubin Direct Bilirubin AST ALT Alkaline Phosphatase Total Protein Albumin Globulin Albumin/Globulin Ratio 07/06/17 07/06/17 05:29 07:30 WBC RBC Hgb Hct MCV MCH MCHC RDW Plt Count MPV Gran % Lymph % (Auto) Marion % (Auto) Eos % (Auto) Baso % (Auto) Gran # Lymph # (Auto) Marion # (Auto) Eos # (Auto) Baso # (Auto) Sodium 138 Potassium 4.5 Chloride 101 Carbon Dioxide 25 Anion Gap 17 BUN 49 H Creatinine 4.3 H Est GFR ( Amer) 16 Est GFR (Non-Af Amer) 13 POC Glucose (mg/dL) 214 H Random Glucose 202 H Hemoglobin A1c Calcium 7.9 L Phosphorus 4.8 H Magnesium 1.9 Total Bilirubin 0.8 Direct Bilirubin 0.7 H AST 30 ALT 23 Alkaline Phosphatase 62 Total Protein 5.7 L Albumin 3.0 Globulin 2.7 Albumin/Globulin Ratio 1.1 EKG/Cardiology Studies: Cardiology / EKG Studies 07/06/17 07:00 EKG [ELECTROCARDIOGRAM] DAILY Comment: Reason For Exam: CNF Critical Care Progress Note - Nutrition Nutrition: Nutrition Category Date Time Status Consistent Carbohydrate [DIET] Diets 07/04/17 Breakfast Ordered Assessment/Plan - Assessment and Plan (Free Text) Plan: Patient seen and examined on rounds with resident, agree with note with following additions/exceptions: Patient is 77yo male with PMhx of ESRD on HD, IDDM, CVA, COPD/Emphysema, former smoker, admitted with severe CAP, epiglotitis, and hypoxia, now on 3LNC, tolerating it well sat 96%. Currently afebrile, HD stable comfortable in NAD. Had HD yesterday, tolerated it well. STABLE. CAP, severe Hypoxia, resolved ESRD COPD Dementia Recommend: - supp o2 as needed, goal sat >90%, duonebs PRN - broad spectrum antibiotics as per ID - follow up UCx, BCx, Procal, Urine Lg/Strep - BP control - HD as per Renal - monitor HH - GI ppx - DVT ppx - stable, transfer to telemetry
--- NOTE | 2017-07-06 08:39 | CP.PCM.PN ---
Subjective - Date & Time of Evaluation Date of Evaluation: 07/06/17 Time of Evaluation: 07:45 - Subjective Subjective: (covering for Dr. Whitman) Patient is seen this morning in the intensive care unit bed 6. He is awake and lying in bed. Objective - Vital Signs/Intake and Output Vital Signs (last 24 hours): Temp Pulse Resp BP Pulse Ox 98.5 F 57 L 33 H 143/68 97 07/06/17 04:00 07/06/17 06:40 07/06/17 06:40 07/06/17 06:30 07/06/17 06:40 Intake and Output: 07/06/17 07/06/17 06:59 18:59 Intake Total 400 Output Total 2000 Balance -1600 - Medications Medications: Current Medications Acetylcysteine (Acetylcysteine 20%) 4 ml IH [id number] [facility] Last Admin: 07/06/17 07:27 Dose: 4 ml Amlodipine Besylate (Norvasc) 10 mg PO DAILY [facility] Last Admin: 07/05/17 10:26 Dose: Not Given Aspirin (Ecotrin) 325 mg PO DAILY [facility] Last Admin: 07/05/17 10:26 Dose: 325 mg Atorvastatin Calcium (Lipitor) 40 mg PO HS [facility] Last Admin: 07/05/17 22:00 Dose: 40 mg Benzonatate (Tessalon Perles) 200 mg PO TID [facility] Last Admin: 07/05/17 18:46 Dose: 200 mg Calcium Acetate (Phoslo) 667 mg PO TID [facility] Last Admin: 07/05/17 18:46 Dose: 667 mg Carvedilol (Coreg) 25 mg PO BID [facility] Last Admin: 07/05/17 18:42 Dose: Not Given Donepezil HCl (Aricept) 10 mg PO HS [facility] Last Admin: 07/05/17 22:01 Dose: 10 mg Heparin Sodium (Porcine) (Heparin) 5,000 units SC Q8H [facility] PRN Reason: Protocol Last Admin: 07/06/17 01:00 Dose: 5,000 units Hydralazine HCl (Apresoline) 100 mg PO BID [facility] Last Admin: 07/05/17 18:46 Dose: 100 mg Doxycycline Hyclate 100 mg/ (Sodium Chloride) 100 mls @ 100 mls/hr IVPB Q12 [facility] PRN Reason: Protocol Last Admin: 07/05/17 21:59 Dose: 100 mls/hr Meropenem 500 mg/ Sodium (Chloride) 50 mls @ 100 mls/hr IVPB 1800 [facility] PRN Reason: Protocol Stop: 07/11/17 22:01 Last Admin: 07/05/17 18:43 Dose: 100 mls/hr Linezolid (Zyvox 600mg/300ml D5w) 600 mg in 300 mls @ 200 mls/hr IVPB Q12 [facility] PRN Reason: Protocol Stop: 07/12/17 10:01 Last Admin: 07/05/17 21:59 Dose: 200 mls/hr Insulin Human Lispro (Humalog Low) 0 units SC ACHS [facility] PRN Reason: Protocol Last Admin: 07/05/17 22:05 Dose: 1 units Levalbuterol HCl (Xopenex) 0.63 mg IH [id number] [facility] Last Admin: 07/06/17 07:26 Dose: 0.63 mg Losartan Potassium (Cozaar) 100 mg PO DAILY [facility] Last Admin: 07/05/17 10:24 Dose: 100 mg Memantine (Namenda) 5 mg PO DAILY [facility] Last Admin: 07/05/17 10:25 Dose: 5 mg Methylprednisolone (Solu-Medrol) 20 mg IVP Q12 [facility] Last Admin: 07/05/17 22:00 Dose: 20 mg Nystatin (Nystatin Oral Susp) 5 ml PO QID [facility] Last Admin: 07/05/17 22:01 Dose: 5 ml Gjdlb-8-[id number] Ethyl Esters (Lovaza) 1 gm PO BID [facility] Last Admin: 07/05/17 18:42 Dose: Not Given Oseltamivir Phosphate (Tamiflu Susp) 30 mg PO DAILY [facility] PRN Reason: Protocol Last Admin: 07/05/17 10:57 Dose: 30 mg Pantoprazole Sodium (Protonix Ec Tab) 40 mg PO ACB [facility] Tamsulosin HCl (Flomax) 0.4 mg PO DAILY [facility] Last Admin: 07/05/17 10:26 Dose: 0.4 mg Vitamin D (Vitamin D 400 Intl Units Tab) 400 intlu PO DAILY [facility] Last Admin: 07/05/17 10:26 Dose: 400 intlu - Labs Labs: 07/06/17 04:50 07/06/17 05:29 PT 13.3 SECONDS (9.4-12.5) H 07/04/17 14:30 INR 1.16 (0.93-1.08) H 07/04/17 14:30 APTT 34.8 Seconds (25.1-36.5) 07/04/17 14:30 - Constitutional Appears: No Acute Distress - Head Exam Head Exam: ATRAUMATIC, NORMOCEPHALIC - Respiratory Exam Respiratory Exam: Decreased Breath Sounds - Cardiovascular Exam Cardiovascular Exam: +S1, +S2 - GI/Abdominal Exam GI & Abdominal Exam: Soft, Normal Bowel Sounds - Neurological Exam Neurological Exam: Alert, Awake Assessment and Plan - Assessment and Plan (Free Text) Assessment: Hypoxic respiratory failure sepsis secondary to multilobar pneumonia end stage renal disease morbid obesity hypertension hyperlipidemia diabetes mellitus Plan: Patient is on IV antibiotics for pneumonia and nystatin for oral thrush. He is on dialysis as per nephrology. Nephrology, cardiology, infectious disease, ENT are on the case
--- NOTE | 2017-07-06 09:50 | CP.PCM.PN ---
<Carin Mcdowell - Last Filed: 07/06/17 09:46> Subjective - Date & Time of Evaluation Date of Evaluation: 07/06/17 Time of Evaluation: 09:47 - Subjective Subjective: ENT: not for Dr. Robles Patient doing well this am. Tolerating diet w/o tightness of pain in throat. Denies respiratory difficulty. Objective - Vital Signs/Intake and Output Vital Signs (last 24 hours): Temp Pulse Resp BP Pulse Ox 98.5 F 57 L 33 H 143/68 97 07/06/17 04:00 07/06/17 06:40 07/06/17 06:40 07/06/17 06:30 07/06/17 06:40 Intake and Output: 07/06/17 07/06/17 06:59 18:59 Intake Total 400 Output Total 2000 Balance -1600 - Medications Medications: Current Medications Acetylcysteine (Acetylcysteine 20%) 4 ml IH [id number] [facility] Last Admin: 07/06/17 07:27 Dose: 4 ml Amlodipine Besylate (Norvasc) 10 mg PO DAILY [facility] Last Admin: 07/05/17 10:26 Dose: Not Given Aspirin (Ecotrin) 325 mg PO DAILY [facility] Last Admin: 07/05/17 10:26 Dose: 325 mg Atorvastatin Calcium (Lipitor) 40 mg PO HS [facility] Last Admin: 07/05/17 22:00 Dose: 40 mg Benzonatate (Tessalon Perles) 200 mg PO TID [facility] Last Admin: 07/05/17 18:46 Dose: 200 mg Calcium Acetate (Phoslo) 667 mg PO TID [facility] Last Admin: 07/05/17 18:46 Dose: 667 mg Carvedilol (Coreg) 25 mg PO BID [facility] Last Admin: 07/05/17 18:42 Dose: Not Given Donepezil HCl (Aricept) 10 mg PO HS [facility] Last Admin: 07/05/17 22:01 Dose: 10 mg Heparin Sodium (Porcine) (Heparin) 5,000 units SC Q8H [facility] PRN Reason: Protocol Last Admin: 07/06/17 01:00 Dose: 5,000 units Hydralazine HCl (Apresoline) 100 mg PO BID [facility] Last Admin: 07/05/17 18:46 Dose: 100 mg Doxycycline Hyclate 100 mg/ (Sodium Chloride) 100 mls @ 100 mls/hr IVPB Q12 [facility] PRN Reason: Protocol Last Admin: 07/05/17 21:59 Dose: 100 mls/hr Linezolid (Zyvox 600mg/300ml D5w) 600 mg in 300 mls @ 200 mls/hr IVPB Q12 [facility] PRN Reason: Protocol Stop: 07/12/17 10:01 Last Admin: 07/05/17 21:59 Dose: 200 mls/hr Meropenem 500 mg/ Sodium (Chloride) 50 mls @ 100 mls/hr IVPB Q12 [facility] PRN Reason: Protocol Stop: 07/11/17 22:01 Insulin Human Lispro (Humalog Low) 0 units SC ACHS [facility] PRN Reason: Protocol Last Admin: 07/05/17 22:05 Dose: 1 units Levalbuterol HCl (Xopenex) 0.63 mg IH [id number] [facility] Last Admin: 07/06/17 07:26 Dose: 0.63 mg Losartan Potassium (Cozaar) 100 mg PO DAILY [facility] Last Admin: 07/05/17 10:24 Dose: 100 mg Memantine (Namenda) 5 mg PO DAILY [facility] Last Admin: 07/05/17 10:25 Dose: 5 mg Methylprednisolone (Solu-Medrol) 20 mg IVP DAILY [facility] Nystatin (Nystatin Oral Susp) 5 ml PO QID [facility] Last Admin: 07/05/17 22:01 Dose: 5 ml Whcnj-1-Nzcw Ethyl Esters (Lovaza) 1 gm PO BID [facility] Last Admin: 07/05/17 18:42 Dose: Not Given Oseltamivir Phosphate (Tamiflu Susp) 30 mg PO DAILY [facility] PRN Reason: Protocol Last Admin: 07/05/17 10:57 Dose: 30 mg Pantoprazole Sodium (Protonix Ec Tab) 40 mg PO ACB [facility] Tamsulosin HCl (Flomax) 0.4 mg PO DAILY [facility] Last Admin: 07/05/17 10:26 Dose: 0.4 mg Vitamin D (Vitamin D 400 Intl Units Tab) 400 intlu PO DAILY [facility] Last Admin: 07/05/17 10:26 Dose: 400 intlu - Labs Labs: 07/06/17 04:50 07/06/17 05:29 PT 13.3 SECONDS (9.4-12.5) H 02/28/18 14:30 INR 1.16 (0.93-1.08) H 07/04/17 14:30 APTT 34.8 Seconds (25.1-36.5) 07/04/17 14:30 - Constitutional Appears: No Acute Distress - Head Exam Head Exam: ATRAUMATIC, NORMOCEPHALIC - Eye Exam Eye Exam: EOMI, Normal appearance - ENT Exam ENT Exam: Mucous Membranes Moist Additional comments: white plaque in oropharynx. Tongue swelling significantly decreased - Respiratory Exam Respiratory Exam: NORMAL BREATHING PATTERN. absent: Accessory Muscle Use, Respiratory Distress - Cardiovascular Exam Cardiovascular Exam: REGULAR RHYTHM. absent: Tachycardia Assessment and Plan - Assessment and Plan (Free Text) Assessment: 77 y/o male w/ oral candidiasis Plan: -cont abx treatment -airway intact w/o evidence of obstruction -no further intervention from ENT at this time -further recs per Dr. Margaret Maciel PGY3 <Geovanny Robles F - Last Filed: 07/06/17 13:19> Objective - Vital Signs/Intake and Output Vital Signs (last 24 hours): Temp Pulse Resp BP Pulse Ox 98.5 F 58 L 33 H 149/59 L 97 07/06/17 04:00 07/06/17 11:07 07/06/17 06:40 07/06/17 11:07 07/06/17 06:40 Intake and Output: 07/06/17 07/06/17 06:59 18:59 Intake Total 400 Output Total 2000 Balance -1600 - Medications Medications: Current Medications Acetylcysteine (Acetylcysteine 20%) 4 ml IH [id number] [facility] Last Admin: 07/06/17 07:27 Dose: 4 ml Amlodipine Besylate (Norvasc) 10 mg PO DAILY [facility] Last Admin: 07/06/17 11:07 Dose: 10 mg Aspirin (Ecotrin) 325 mg PO DAILY [facility] Last Admin: 07/06/17 11:08 Dose: 325 mg Atorvastatin Calcium (Lipitor) 40 mg PO HS [facility] Last Admin: 07/05/17 22:00 Dose: 40 mg Benzonatate (Tessalon Perles) 200 mg PO TID [facility] Last Admin: 07/06/17 11:06 Dose: 200 mg Calcium Acetate (Phoslo) 667 mg PO TID [facility] Last Admin: 07/06/17 11:08 Dose: 667 mg Carvedilol (Coreg) 25 mg PO BID [facility] Last Admin: 07/05/17 18:42 Dose: Not Given Donepezil HCl (Aricept) 10 mg PO HS [facility] Last Admin: 07/05/17 22:01 Dose: 10 mg Heparin Sodium (Porcine) (Heparin) 5,000 units SC Q8H [facility] PRN Reason: Protocol Last Admin: 07/06/17 11:05 Dose: 5,000 units Hydralazine HCl (Apresoline) 100 mg PO BID [facility] Last Admin: 07/06/17 11:07 Dose: 100 mg Doxycycline Hyclate 100 mg/ (Sodium Chloride) 100 mls @ 100 mls/hr IVPB Q12 [facility] PRN Reason: Protocol Last Admin: 07/06/17 11:04 Dose: 100 mls/hr Linezolid (Zyvox 600mg/300ml D5w) 600 mg in 300 mls @ 200 mls/hr IVPB Q12 [facility] PRN Reason: Protocol Stop: 07/12/17 10:01 Last Admin: 07/06/17 11:09 Dose: 200 mls/hr Meropenem 500 mg/ Sodium (Chloride) 50 mls @ 100 mls/hr IVPB Q12 [facility] PRN Reason: Protocol Stop: 07/11/17 22:01 Last Admin: 07/06/17 11:04 Dose: 100 mls/hr Insulin Human Lispro (Humalog Low) 0 units SC ACHS [facility] PRN Reason: Protocol Last Admin: 07/06/17 11:38 Dose: 3 units Levalbuterol HCl (Xopenex) 0.63 mg IH [id number] [facility] Last Admin: 07/06/17 07:26 Dose: 0.63 mg Losartan Potassium (Cozaar) 100 mg PO DAILY [facility] Last Admin: 07/06/17 11:08 Dose: 100 mg Memantine (Namenda) 5 mg PO DAILY [facility] Last Admin: 07/06/17 11:06 Dose: 5 mg Methylprednisolone (Solu-Medrol) 20 mg IVP DAILY [facility] Last Admin: 07/06/17 11:05 Dose: 20 mg Nystatin (Nystatin Oral Susp) 5 ml PO QID [facility] Last Admin: 07/06/17 11:06 Dose: 5 ml Njoiu-7-Axou Ethyl Esters (Lovaza) 1 gm PO BID [facility] Last Admin: 07/06/17 11:07 Dose: 1 gm Oseltamivir Phosphate (Tamiflu Susp) 30 mg PO DAILY [facility] PRN Reason: Protocol Last Admin: 07/05/17 10:57 Dose: 30 mg Pantoprazole Sodium (Protonix Ec Tab) 40 mg PO ACB [facility] Last Admin: 07/06/17 08:00 Dose: 40 mg Tamsulosin HCl (Flomax) 0.4 mg PO DAILY [facility] Last Admin: 07/06/17 10:35 Dose: 0.4 mg Vitamin D (Vitamin D 400 Intl Units Tab) 400 intlu PO DAILY [facility] Last Admin: 07/06/17 11:07 Dose: 400 intlu - Labs Labs: 07/06/17 04:50 07/06/17 05:29 PT 13.3 SECONDS (9.4-12.5) H 07/04/17 14:30 INR 1.16 (0.93-1.08) H 07/04/17 14:30 APTT 34.8 Seconds (25.1-36.5) 07/04/17 14:30 Assessment and Plan (1) Oropharyngeal candidiasis Status: Acute (2) Other voice and resonance disorders Status: Acute (3) Oropharyngeal dysphagia Status: Acute (4) Acute pharyngitis due to other specified organisms Status: Acute (5) Pneumonia Status: Acute (6) Cough Status: Acute - Assessment and Plan (Free Text) Plan: Patient seen and examined by me. I agree with the resident assessment and plan. Dysphonia and dysphagia improving. Continue with medical treatment. Follow.
--- NOTE | 2017-07-06 09:51 | CARD ---
APPROVED REPORT EKG Measurement Heart [id number] <Conclusion> Sinus bradycardia Possible Left atrial enlargement Nonspecific T wave abnormality Prolonged QT Abnormal ECG
[2017-07-06] MEDS: Meropenem 500 MG in Sodium Chloride 0.9% 50 ML IVPB SCH ×2 (11:04→22:17)
[2017-07-06] MEDS: MethylPREDNISolone 40 mg Vial IVP SCH (11:05)
[2017-07-06] MEDS: Nystatin 100,000 Units/ml Oral Susp 5 ml UD PO SCH ×4 (11:06→22:17)
[2017-07-06] MEDS: Cholecalciferol 400 Intl Units Tab PO SCH (11:07)
[2017-07-06] MEDS: Omega-3-Acid Ethyl Esters 1 GM Cap PO SCH ×2 (11:07→17:11)
[2017-07-06] MEDS: Aspirin 325 mg EC Tablets PO SCH (11:08)
[2017-07-06] MEDS: Linezolid 600 mg in D5W 300 ml 600 MG/300 ML BAG IVPB SCH ×2 (11:09→22:20)
[2017-07-06] MEDS: Oseltamivir 6 MG/ML PO SCH (11:11)
--- NOTE | 2017-07-06 13:08 | CARD ---
APPROVED REPORT EXAM: Two-dimensional and M-mode echocardiogram with Doppler and color Doppler. INDICATION Congestive Heart Failure 2D DIMENSIONS Left Atrium (2D)5.5 (1.6-4.0cm)IVSd1.7 (0.7-1.1cm) LVDd5.4 (3.9-5.9cm)PWd1.7 (0.7-1.1cm) LVDs3.8 (2.5-4.0cm)FS (%) 30.9 % LVEF (%)58.0 (>50%) M-Mode DIMENSIONS Aortic Root3.70 (2.2-3.7cm)Aortic Cusp Exc.2.30 (1.5-2.0cm) Aortic Valve AoV Peak Miwkmell368.0cm/Sonia Peak GR.12mmHg Mitral Valve MV E Ouwudzto205.0cm/sMV A Deuknsnj397.0cm/sE/A ratio0.8 TDI Lateral E' Peak V7.90cm/sMedial E' Peak V4.78cm/sE/Lateral E'15.2 E/Medial E'25.1 Pulmonary Valve PV Peak Uajlsoys56.1cm/sPV Peak Grad.3mmHg Tricuspid Valve TR Peak Jobyrxbl010ni/sRAP [id number] Peak Gr.43mmHg [id number] LEFT VENTRICLE There is moderate concentric left ventricular hypertrophy. The left ventricular function is normal. The left ventricular ejection fraction is within the normal range. RIGHT VENTRICLE The right ventricle is normal size. ATRIA The left atrium is mildly dilated. The right atrium is mildly dilated. AORTIC VALVE The aortic valve is thickened but opens well. MITRAL VALVE The mitral valve is thickened but opens well. Mitral annular calcification is mild to moderate. TRICUSPID VALVE The tricuspid valve leaflets are thickened , but open well. There is mild tricuspid regurgitation. There is moderate pulmonary hypertension. PULMONIC VALVE The pulmonic valve is mildly thickened. PERICARDIAL EFFUSION There is no pericardial effusion. <Conclusion> LVH with good LV function Dilated LA and RA Mild TR Moderate pulmonary hypertension
--- NOTE | 2017-07-06 13:22 | CP.PCM.PN ---
<Johnie Stoner - Last Filed: 07/06/17 13:15> Subjective - Date & Time of Evaluation Date of Evaluation: 07/06/17 Time of Evaluation: 13:15 - Subjective Subjective: Podiatry Progress Note- Dr. Gleason 77 year old male with PMHx of DM, HTN, ESRD on HD, dyslipidemia, COPD, cataracts , chronic low back pain seen and evaluated for bilaterally foot ulceration. Patient is seen resting in bed, in NAD, and AA0x3. Patient denies acute overnight events. Patient denies n/v/sob/cp/chills or f. No other pedal complaints at this time. Objective - Vital Signs/Intake and Output Vital Signs (last 24 hours): Temp Pulse Resp BP Pulse Ox 98.5 F 58 L 33 H 149/59 L 97 07/06/17 04:00 07/06/17 11:07 07/06/17 06:40 07/06/17 11:07 07/06/17 06:40 Intake and Output: 07/06/17 07/06/17 06:59 18:59 Intake Total 400 Output Total 2000 Balance -1600 - Medications Medications: Current Medications Acetylcysteine (Acetylcysteine 20%) 4 ml IH [id number] [facility] Last Admin: 07/06/17 07:27 Dose: 4 ml Amlodipine Besylate (Norvasc) 10 mg PO DAILY [facility] Last Admin: 07/06/17 11:07 Dose: 10 mg Aspirin (Ecotrin) 325 mg PO DAILY [facility] Last Admin: 07/06/17 11:08 Dose: 325 mg Atorvastatin Calcium (Lipitor) 40 mg PO [facility] Last Admin: 07/05/17 22:00 Dose: 40 mg Benzonatate (Tessalon Perles) 200 mg PO TID [facility] Last Admin: 07/06/17 11:06 Dose: 200 mg Calcium Acetate (Phoslo) 667 mg PO TID [facility] Last Admin: 07/06/17 11:08 Dose: 667 mg Carvedilol (Coreg) 25 mg PO BID [facility] Last Admin: 07/05/17 18:42 Dose: Not Given Donepezil HCl (Aricept) 10 mg PO HS [facility] Last Admin: 07/05/17 22:01 Dose: 10 mg Heparin Sodium (Porcine) (Heparin) 5,000 units SC Q8H [facility] PRN Reason: Protocol Last Admin: 07/06/17 11:05 Dose: 5,000 units Hydralazine HCl (Apresoline) 100 mg PO BID [facility] Last Admin: 07/06/17 11:07 Dose: 100 mg Doxycycline Hyclate 100 mg/ (Sodium Chloride) 100 mls @ 100 mls/hr IVPB Q12 [facility] PRN Reason: Protocol Last Admin: 07/06/17 11:04 Dose: 100 mls/hr Linezolid (Zyvox 600mg/300ml D5w) 600 mg in 300 mls @ 200 mls/hr IVPB Q12 [facility] PRN Reason: Protocol Stop: 07/12/17 10:01 Last Admin: 07/06/17 11:09 Dose: 200 mls/hr Meropenem 500 mg/ Sodium (Chloride) 50 mls @ 100 mls/hr IVPB Q12 [facility] PRN Reason: Protocol Stop: 07/11/17 22:01 Last Admin: 07/06/17 11:04 Dose: 100 mls/hr Insulin Human Lispro (Humalog Low) 0 units SC ACHS [facility] PRN Reason: Protocol Last Admin: 07/06/17 11:38 Dose: 3 units Levalbuterol HCl (Xopenex) 0.63 mg IH [id number] [facility] Last Admin: 07/06/17 07:26 Dose: 0.63 mg Losartan Potassium (Cozaar) 100 mg PO DAILY [facility] Last Admin: 07/06/17 11:08 Dose: 100 mg Memantine (Namenda) 5 mg PO DAILY [facility] Last Admin: 07/06/17 11:06 Dose: 5 mg Methylprednisolone (Solu-Medrol) 20 mg IVP DAILY [facility] Last Admin: 07/06/17 11:05 Dose: 20 mg Nystatin (Nystatin Oral Susp) 5 ml PO QID [facility] Last Admin: 07/06/17 11:06 Dose: 5 ml Tuvhh-5-Yzwi Ethyl Esters (Lovaza) 1 gm PO BID [facility] Last Admin: 07/06/17 11:07 Dose: 1 gm Oseltamivir Phosphate (Tamiflu Susp) 30 mg PO DAILY [facility] PRN Reason: Protocol Last Admin: 07/05/17 10:57 Dose: 30 mg Pantoprazole Sodium (Protonix Ec Tab) 40 mg PO ACB [facility] Last Admin: 07/06/17 08:00 Dose: 40 mg Tamsulosin HCl (Flomax) 0.4 mg PO DAILY [facility] Last Admin: 07/06/17 10:35 Dose: 0.4 mg Vitamin D (Vitamin D 400 Intl Units Tab) 400 intlu PO DAILY [facility] Last Admin: 07/06/17 11:07 Dose: 400 intlu - Labs Labs: 07/06/17 04:50 07/06/17 05:29 PT 13.3 SECONDS (9.4-12.5) H 07/04/17 14:30 INR 1.16 (0.93-1.08) H 07/04/17 14:30 APTT 34.8 Seconds (25.1-36.5) 07/04/17 14:30 - Constitutional Appears: Well, Non-toxic, No Acute Distress - Extremities Exam Extremities Exam: absent: Calf Tenderness Additional comments: VASCULAR: DP/PT pulses 1/4 bilaterally, KIDNEY TRIMMER< 3 seconds, skin temperature is WNL NEUROLOGIC: Protective sensation and gross sensation decreased ORTHOPEDIC: Negative pain on palpation to the left lower extremity DERMATOLOGICAL: Ulceration on medial aspect of the right hallux measuring approximately .5 x .5 x .1 cm with wound base mainly fibrotic, no erythema, no tunneling, no undermining, no probe to bone, no drainage, no odor noted. Tiny scab/necrotic ulceration noted to the dorsum of the 4th right digit measuring approximately .2 x .2 cm with no erythema, no tunneling, no undermining, no probe to bone, no drainage, no odor noted. Tiny scab noted to the dorsum of the 2nd left digit measuring approximately .1x .1 cm with no erythema, no tunneling, no undermining, no probe to bone, no drainage, no odor noted. - Neurological Exam Neurological Exam: Alert, Awake, Oriented x3 - Psychiatric Exam Psychiatric exam: Normal Affect, Normal Mood Assessment and Plan - Assessment and Plan (Free Text) Assessment: 77 year old male with PMHx of DM, HTN, ESRD on HD, dyslipidemia, COPD, cataracts , chronic low back pain for bilaterally foot wounds Plan: Patient examined and evaluated Discussed plan in detail with attending Dr. Gleason Labs, chart, vitals reviewed Cleansed ulceration with saline solution Hydrogel applied to right hallux ulceration. Optifoam applied ulceration and abrasion Will continue to follow patient while in house Upon discharge patient will continue to follow up with Dr. Maher in the wound care clinic within 1 week <Jose Gleason - Last Filed: 07/06/17 16:51> Objective - Vital Signs/Intake and Output Vital Signs (last 24 hours): Temp Pulse Resp BP Pulse Ox 98.5 F 58 L 33 H 149/59 L 97 07/06/17 04:00 07/06/17 11:07 07/06/17 06:40 07/06/17 11:07 07/06/17 06:40 Intake and Output: 07/06/17 07/06/17 06:59 18:59 Intake Total 400 Output Total 2000 Balance -1600 - Medications Medications: Current Medications Acetylcysteine (Acetylcysteine 20%) 4 ml IH [id number] [facility] Last Admin: 07/06/17 13:35 Dose: 4 ml Amlodipine Besylate (Norvasc) 10 mg PO DAILY [facility] Last Admin: 07/06/17 11:07 Dose: 10 mg Aspirin (Ecotrin) 325 mg PO DAILY [facility] Last Admin: 07/06/17 11:08 Dose: 325 mg Atorvastatin Calcium (Lipitor) 40 mg PO HS [facility] Last Admin: 07/05/17 22:00 Dose: 40 mg Benzonatate (Tessalon Perles) 200 mg PO TID [facility] Last Admin: 07/06/17 15:08 Dose: 200 mg Calcium Acetate (Phoslo) 667 mg PO TID [facility] Last Admin: 07/06/17 15:08 Dose: 667 mg Carvedilol (Coreg) 25 mg PO BID [facility] Last Admin: 07/05/17 18:42 Dose: Not Given Donepezil HCl (Aricept) 10 mg PO HS [facility] Last Admin: 07/05/17 22:01 Dose: 10 mg Heparin Sodium (Porcine) (Heparin) 5,000 units SC Q8H [facility] PRN Reason: Protocol Last Admin: 07/06/17 11:05 Dose: 5,000 units Hydralazine HCl (Apresoline) 100 mg PO BID [facility] Last Admin: 07/06/17 11:07 Dose: 100 mg Doxycycline Hyclate 100 mg/ (Sodium Chloride) 100 mls @ 100 mls/hr IVPB Q12 [facility] PRN Reason: Protocol Last Admin: 07/06/17 11:04 Dose: 100 mls/hr Linezolid (Zyvox 600mg/300ml D5w) 600 mg in 300 mls @ 200 mls/hr IVPB Q12 [facility] PRN Reason: Protocol Stop: 07/12/17 10:01 Last Admin: 07/06/17 11:09 Dose: 200 mls/hr Meropenem 500 mg/ Sodium (Chloride) 50 mls @ 100 mls/hr IVPB Q12 [facility] PRN Reason: Protocol Stop: 07/11/17 22:01 Last Admin: 07/06/17 11:04 Dose: 100 mls/hr Insulin Human Lispro (Humalog Low) 0 units SC ACHS [facility] PRN Reason: Protocol Last Admin: 07/06/17 11:38 Dose: 3 units Levalbuterol HCl (Xopenex) 0.63 mg IH [id number] [facility] Last Admin: 07/06/17 13:35 Dose: 0.63 mg Losartan Potassium (Cozaar) 100 mg PO DAILY [facility] Last Admin: 07/06/17 11:08 Dose: 100 mg Memantine (Namenda) 5 mg PO DAILY [facility] Last Admin: 07/06/17 11:06 Dose: 5 mg Methylprednisolone (Solu-Medrol) 20 mg IVP DAILY [facility] Last Admin: 07/06/17 11:05 Dose: 20 mg Nystatin (Nystatin Oral Susp) 5 ml PO QID [facility] Last Admin: 07/06/17 15:08 Dose: 5 ml Aqwda-0-Mkhe Ethyl Esters (Lovaza) 1 gm PO BID [facility] Last Admin: 07/06/17 11:07 Dose: 1 gm Oseltamivir Phosphate (Tamiflu Susp) 30 mg PO DAILY [facility] PRN Reason: Protocol Last Admin: 07/06/17 11:11 Dose: 30 mg Pantoprazole Sodium (Protonix Ec Tab) 40 mg PO ACB [facility] Last Admin: 07/06/17 08:00 Dose: 40 mg Tamsulosin HCl (Flomax) 0.4 mg PO DAILY [facility] Last Admin: 07/06/17 10:35 Dose: 0.4 mg Vitamin D (Vitamin D 400 Intl Units Tab) 400 intlu PO DAILY [facility] Last Admin: 07/06/17 11:07 Dose: 400 intlu - Labs Labs: 07/06/17 04:50 07/06/17 05:29 PT 13.3 SECONDS (9.4-12.5) H 07/04/17 14:30 INR 1.16 (0.93-1.08) H 07/04/17 14:30 APTT 34.8 Seconds (25.1-36.5) 07/04/17 14:30 Attending/Attestation - Attestation I have personally seen and examined this patient.: Yes I have fully participated in the care of the patient.: Yes I have reviewed all pertinent clinical information, including history, physical exam and plan: Yes
--- NOTE | 2017-07-06 14:43 | PN ---
DATE: 07/06/2017 CARDIOLOGY FOLLOWUP SUBJECTIVE: The patient is in the ICU in a chair. He is comfortable with pulse oximetry is excellent. PHYSICAL EXAMINATION: VITAL SIGNS: Blood pressure is 149/60 with heart rates in the 50s. NECK: Negative JVD. LUNGS: Bilateral rhonchi. HEART: Reveals S1, S2. EXTREMITIES: Without edema. LABORATORY DATA: Hemoglobin is 10.3. Chemistries: BUN and creatinine are 49 and 4.3, glucose is 202. Echocardiogram reveals normal LV function with LVH. There is moderate pulmonary hypertension. IMPRESSION: 1. Status post congestive heart failure. 2. End-stage renal disease. 3. Anemia. 4. Peripheral vascular disease. 5. Left ventricular hypertrophy with good left ventricular systolic function. 6. Diabetes mellitus. 7. Pulmonary hypertension. PLAN: Given these findings, the patient is doing much improved. I agree with transferring the patient to telemetry and beginning physical therapy. Yong Duran MD
--- NOTE | 2017-07-06 17:42 | CP.PCM.PN ---
Subjective - Date & Time of Evaluation Date of Evaluation: 07/06/17 Time of Evaluation: 09:30 - Subjective Subjective: Feeling better, breathing better, no pain in the throat, no dysphagia, no diarrhea.. Objective - Vital Signs/Intake and Output Vital Signs (last 24 hours): Temp Pulse Resp BP Pulse Ox 97.5 F L 69 28 H 131/43 L 95 07/05/17 04:00 07/05/17 06:00 07/05/17 07:44 07/05/17 02:00 07/05/17 04:00 Intake and Output: 07/05/17 07/05/17 06:59 18:59 Intake Total 350 Balance 350 - Medications Medications: Current Medications Acetylcysteine (Acetylcysteine 20%) 4 ml IH [id number] [facility] Last Admin: 07/05/17 07:36 Dose: 4 ml Amlodipine Besylate (Norvasc) 10 mg PO DAILY [facility] Aspirin (Ecotrin) 325 mg PO DAILY [facility] Last Admin: 07/04/17 22:36 Dose: 325 mg Atorvastatin Calcium (Lipitor) 40 mg PO HS [facility] Last Admin: 07/04/17 22:37 Dose: 40 mg Calcium Acetate (Phoslo) 667 mg PO TID [facility] Last Admin: 07/04/17 23:41 Dose: Not Given Carvedilol (Coreg) 25 mg PO BID [facility] Last Admin: 07/05/17 06:17 Dose: Not Given Donepezil HCl (Aricept) 10 mg PO HS [facility] Last Admin: 07/04/17 22:37 Dose: 10 mg Heparin Sodium (Porcine) (Heparin) 5,000 units SC Q8H [facility] PRN Reason: Protocol Last Admin: 07/04/17 23:28 Dose: 5,000 units Hydralazine HCl (Apresoline) 100 mg PO BID [facility] Last Admin: 07/04/17 23:42 Dose: 100 mg Nitroglycerin/Dextrose (Nitroglycerin 50 Mg/250 Ml D5w) 50 mg in 250 mls @ 1.5 mls/hr IV .Q24H PRN; Protocol; 5 MCG/MIN PRN Reason: BPS above 140 Doxycycline Hyclate 100 mg/ (Sodium Chloride) 100 mls @ 100 mls/hr IVPB Q12 [facility] PRN Reason: Protocol Last Admin: 07/04/17 22:36 Dose: 100 mls/hr Meropenem 500 mg/ Sodium (Chloride) 50 mls @ 100 mls/hr IVPB 1800 [facility] PRN Reason: Protocol Stop: 07/11/17 22:01 Linezolid (Zyvox 600mg/300ml D5w) 600 mg in 300 mls @ 200 mls/hr IVPB Q12 [facility] PRN Reason: Protocol Stop: 07/12/17 10:01 Insulin Human Lispro (Humalog Low) 0 units SC AC [facility] PRN Reason: Protocol Levalbuterol HCl (Xopenex) 0.63 mg IH [id number] [facility] Last Admin: 07/05/17 07:37 Dose: 0.63 mg Losartan Potassium (Cozaar) 100 mg PO DAILY [facility] Last Admin: 07/05/17 06:18 Dose: Not Given Memantine (Namenda) 5 mg PO DAILY [facility] Last Admin: 07/04/17 22:37 Dose: 5 mg Methylprednisolone (Solu-Medrol) 20 mg IVP Q12 [facility] Last Admin: 07/04/17 22:36 Dose: 20 mg [id number] Ethyl Esters (Lovaza) 1 gm PO BID [facility] Oseltamivir Phosphate (Tamiflu Susp) 30 mg PO DAILY [facility] PRN Reason: Protocol Pantoprazole Sodium (Protonix Inj) 40 mg IVP DAILY [facility] Tamsulosin HCl (Flomax) 0.4 mg PO DAILY [facility] Last Admin: 07/04/17 22:37 Dose: 0.4 mg Vitamin D (Vitamin D 400 Intl Units Tab) 400 intlu PO DAILY [facility] - Labs Labs: 07/05/17 05:30 07/05/17 05:30 PT 13.3 SECONDS (9.4-12.5) H 07/04/17 14:30 INR 1.16 (0.93-1.08) H 07/04/17 14:30 APTT 34.8 Seconds (25.1-36.5) 07/04/17 14:30 - Constitutional Appears: Chronically Ill - Head Exam Head Exam: NORMAL INSPECTION - Neck Exam Neck Exam: absent: Meningismus - Respiratory Exam Respiratory Exam: Decreased Breath Sounds - Cardiovascular Exam Cardiovascular Exam: +S1, +S2 - GI/Abdominal Exam GI & Abdominal Exam: Soft. absent: Tenderness Assessment and Plan - Assessment and Plan (Free Text) Plan: Assessment Severe sepsis due to healthcare-associated pneumonia as well as epiglottitis, R/ O Influenza in this patient also presenting with flu-like illness ESRD on HD DM HTN morbid obesity with BMI 41 dyslipidemia COPD cataracts chronic low back pain Plan continue Zyvox, Merrem, Doxycycline day 2 and Tamiflu day 2; blood cx have been negative x [address] neck, CXR will continue to monitor clinically
--- NOTE | 2017-07-06 18:35 | PN ---
DATE: 07/06/2017 SUBJECTIVE: The patient is seen in the ICU. He is sitting in chair. He is receiving a nebulizer treatment. He is awake. He is alert. He is comfortable. He reports some cough. He complains of some shortness of breath. He denies any chest tightness. He denies any palpitations. PHYSICAL EXAMINATION: GENERAL: Obese, elderly male, sitting in chair. VITAL SIGNS: Blood pressure 149/59, heart rate 58, respiratory rate 33, temperature 98.5. HEENT: Normocephalic, atraumatic, positive pallor. NECK: Supple, no JVD. LUNGS: Bilateral equal air entry, bilateral equal expansion, crackles right side. CARDIAC: S1, S2, regular rate and rhythm. No murmur, no rub. ABDOMEN: Obese, distended, soft, nontender, bowel sounds present. EXTREMITIES: Trace lower extremity edema. INTAKE AND OUTPUT: 1620/4000, on dialysis yesterday. LABORATORY DATA: WBC 11, hemoglobin 10, hematocrit 33, platelets 140. Sodium 138, potassium 4.5, chloride 101, CO2 of 25 BUN 49, creatinine 4.3, glucose 202, calcium 7.9, phosphorus 4.8, magnesium 1.9, AST 30, ALT 23. Cultures no growth so far. Echocardiogram, left ventricular hypertrophy with good left ventricular function, dilated RA, mild TR, moderate pulmonary hypertension. CURRENT MEDICATIONS: Mucomyst, Apresoline 100 b.i.d.; Aricept; Coreg 25 b.i.d., on hold; Cozaar 100 daily; doxycycline 100 q. 12; aspirin; Flomax; insulin; Lipitor; Lovaza; meropenem; Namenda; amlodipine; nystatin; PhosLo; Protonix; Solu-Medrol; Tamiflu; Xopenex; Zyvox. ASSESSMENT: 1. Altered mental status in the setting of pneumonia, respiratory failure, sepsis, resolved. 2. Status post decompensated congestive heart failure. 3. Right lower lobe pneumonia. 4. Xlq-ptsynou-kqwavepkr diabetes mellitus. 5. Hypertension. 6. Left ventricular hypertrophy, moderate pulmonary hypertension. 7. End-stage renal disease. 8. Anemia of chronic disease. 9. Secondary hyperparathyroidism. PLAN: 1. Continue antibiotics to cover for community-acquired pneumonia. 2. Maintain euglycemia, continue to monitor fingersticks. 3. Taper steroids as feasible. 4. Continue phosphate binders. 5. Continue current antihypertensive regimen, avoid hypotension. 6. Advance diet. 7. Next dialysis tomorrow. 8. Case discussed with ICU staff, case discussed with ICU nurses, case discussed with dialysis staff. More than 35 minutes spent in the care of this critically ill patient. Yadira Fox MD
[2017-07-07] MEDS: Acetylcysteine 20% Inhal Soln (4ml) IH SCH ×4 (01:12→21:11)
[2017-07-07] MEDS: Levalbuterol 0.63 MG/3 ML Inhal Soln UD IH SCH ×4 (01:12→21:12)
[2017-07-07 07:13] LABS: GRAN # 7.6 (1.4-6.5); GRAN % 82.9 % (50.0-68.0); HEMOGLOBIN 10.4 g/dL (14.0-18.0); LYMPH # 0.9 (1.2-3.4); MEAN CELL VOLUME 85.1 fl (80.0-105.0); MEAN CORPUSCULAR HEMOGLOBIN 26.7 pg (25.0-35.0); MEAN CORPUSCULAR HGB CONC 31.3 g/dl (31.0-37.0); MEAN PLATELET VOLUME 11.8 fl (7.0-11.0); MONO # 0.7 (0.1-0.6); MONO % 7.1 % (1.0-6.0); RBC 3.9 10^6/uL (3.5-6.1); RED CELL DISTRIBUTION WIDTH 16.9 % (11.5-14.5); WHITE BLOOD COUNT 9.2 10^3/ul (4.5-11.0)
[2017-07-07 07:31] LABS: ALB/GLOB RATIO 1.1 (1.1-1.8); ALBUMIN 3.4 g/dL (3.0-4.8); BILIRUBIN,DIRECT 0.7 mg/dL (0.0-0.4); CALCIUM 8.7 mg/dL (8.4-10.5); MAGNESIUM 2.3 mg/dL (1.7-2.2)
[2017-07-07] MEDS: Insulin Lispro (humaLOG) LOW Coverage SC SCH ×4 (08:31→21:22)
[2017-07-07] MEDS: Pantoprazole 40 mg EC Tab PO SCH (08:31)
[2017-07-07] MEDS: Nystatin 100,000 Units/ml Oral Susp 5 ml UD PO SCH ×4 (10:10→21:23)
[2017-07-07] MEDS: Omega-3-Acid Ethyl Esters 1 GM Cap PO SCH ×2 (10:10→19:10)
[2017-07-07 11:06] LABS: GRAN # 8.24 (1.4-6.5); GRAN % 81.9 % (50.0-68.0); HEMOGLOBIN 10.4 g/dL (14.0-18.0); LYMPH # 0.9 (1.2-3.4); LYMPH % 9.2 % (22.0-35.0); MEAN CELL VOLUME 84.8 fl (80.0-105.0); MEAN CORPUSCULAR HEMOGLOBIN 27.2 pg (25.0-35.0); MEAN CORPUSCULAR HGB CONC 32.1 g/dl (31.0-37.0); MEAN PLATELET VOLUME 11.2 fl (7.0-11.0); MONO # 0.9 (0.1-0.6); MONO % 8.9 % (1.0-6.0); RBC 3.82 10^6/uL (3.5-6.1); RED CELL DISTRIBUTION WIDTH 16.9 % (11.5-14.5); WHITE BLOOD COUNT 10.1 10^3/ul (4.5-11.0)
[2017-07-07 11:13] LABS: ALB/GLOB RATIO 1.1 (1.1-1.8); ALBUMIN 3.5 g/dL (3.0-4.8); CALCIUM 8.7 mg/dL (8.4-10.5); MAGNESIUM 2.2 mg/dL (1.7-2.2)
--- NOTE | 2017-07-07 14:56 | PN ---
DATE: 07/07/2017 SUBJECTIVE: The patient is seen lying in bed in the dialysis unit. He is awake, he is alert, he is comfortable. PHYSICAL EXAMINATION: GENERAL: Obese, elderly male, seen in the dialysis unit. VITAL SIGNS: Blood pressure 144/70, heart rate 56, respiratory rate 20, temperature 97.7. HEENT: Normocephalic, atraumatic. NECK: Supple, no JVD. LUNGS: Bilateral equal air entry, no rales. CARDIAC: S1 and S2, regular rate and rhythm, no murmur, no rub. ABDOMEN: Obese, distended, soft, nontender, bowel sounds present. EXTREMITIES: Trace lower extremity edema. INTAKE AND OUTPUT: Not charted. LABORATORY DATA: WBC 9, hemoglobin 10, hematocrit 33, and platelets 174. Sodium 135, potassium 4.5, chloride 94, CO2 of 24. BUN 89, creatinine 6.9. Glucose 253. Calcium 8.7, phosphorus 5.7, magnesium 2.3. Albumin 3.4. CURRENT MEDICATIONS: Mucomyst, hydralazine, Aricept, Coreg, Cozaar 100, doxycycline 100 q.12., Ecotrin, Flomax, heparin, Lipitor, Lovaza, meropenem 500 q.12, Namenda 5, amlodipine 10, PhosLo 667 p.o. t.i.d. Solu-Medrol, Tamiflu, Tessalon Perles, Xopenex, and Zyvox. ASSESSMENT: 1. Altered mental status, resolved. 2. Respiratory failure, much improved. 3. Right lower lobe pneumonia. 4. Possible influenza. 5. Bxy-wgozfxx-oqmdjwxdd diabetes mellitus. 6. End-stage renal disease. 7. Hypertension. PLAN: 1. Continue Tamiflu empirically. 2. Continue antibiotics for pneumonia. 3. Stable dialysis. 4. Continue phosphate binders. 5. Continue to monitor in telemetry Yadira Fox MD
[2017-07-07] MEDS: Meropenem 500 MG in Sodium Chloride 0.9% 50 ML IVPB SCH ×2 (16:09→21:22)
[2017-07-07] MEDS: Oseltamivir 6 MG/ML PO SCH (16:10)
[2017-07-07] MEDS: Linezolid 600 mg in D5W 300 ml 600 MG/300 ML BAG IVPB SCH ×2 (16:12→21:21)
[2017-07-07] MEDS: MethylPREDNISolone 40 mg Vial IVP SCH (16:13)
[2017-07-07] MEDS: Cholecalciferol 400 Intl Units Tab PO SCH (16:18)
[2017-07-07] MEDS: Aspirin 325 mg EC Tablets PO SCH (16:20)
--- NOTE | 2017-07-07 17:05 | CP.PCM.PN ---
Subjective - Date & Time of Evaluation Date of Evaluation: 07/07/17 Time of Evaluation: 17:00 - Subjective Subjective: Patient continues to improve. Patient has improved voice quality and improved dysphagia. He still has a cough and thick mucus. Objective - Vital Signs/Intake and Output Vital Signs (last 24 hours): Temp Pulse Resp BP Pulse Ox 97.7 F 56 L 20 144/70 95 07/07/17 06:39 07/07/17 06:39 07/07/17 06:39 07/07/17 06:39 07/07/17 06:39 Intake and Output: 07/07/17 07/07/17 06:59 18:59 Intake Total 570 480 Output Total 0 Balance 570 480 - Medications Medications: Current Medications Acetylcysteine (Acetylcysteine 20%) 4 ml IH [id number] [facility] Last Admin: 07/07/17 13:28 Dose: Not Given Amlodipine Besylate (Norvasc) 10 mg PO DAILY [facility] Last Admin: 07/06/17 11:07 Dose: 10 mg Aspirin (Ecotrin) 325 mg PO DAILY [facility] Last Admin: 07/06/17 11:08 Dose: 325 mg Atorvastatin Calcium (Lipitor) 40 mg PO [facility] Last Admin: 07/06/17 22:17 Dose: 40 mg Benzonatate (Tessalon Perles) 200 mg PO TID [facility] Last Admin: 07/07/17 10:11 Dose: Not Given Calcium Acetate (Phoslo) 667 mg PO TID [facility] Last Admin: 07/07/17 10:11 Dose: Not Given Carvedilol (Coreg) 25 mg PO BID [facility] Last Admin: 07/05/17 18:42 Dose: Not Given Donepezil HCl (Aricept) 10 mg PO HS [facility] Last Admin: 07/06/17 22:17 Dose: 10 mg Heparin Sodium (Porcine) (Heparin) 5,000 units SC Q8H [facility] PRN Reason: Protocol Last Admin: 07/07/17 08:28 Dose: 5,000 units Hydralazine HCl (Apresoline) 100 mg PO BID [facility] Last Admin: 07/07/17 10:09 Dose: Not Given Doxycycline Hyclate 100 mg/ (Sodium Chloride) 100 mls @ 100 mls/hr IVPB Q12 [facility] PRN Reason: Protocol Last Admin: 07/06/17 22:19 Dose: 100 mls/hr Linezolid (Zyvox 600mg/300ml D5w) 600 mg in 300 mls @ 200 mls/hr IVPB Q12 [facility] PRN Reason: Protocol Stop: 07/12/17 10:01 Last Admin: 07/06/17 22:20 Dose: 200 mls/hr Meropenem 500 mg/ Sodium (Chloride) 50 mls @ 100 mls/hr IVPB Q12 [facility] PRN Reason: Protocol Stop: 07/11/17 22:01 Last Admin: 07/06/17 22:17 Dose: 100 mls/hr Insulin Human Lispro (Humalog Low) 0 units SC ACHS [facility] Last Admin: 07/07/17 08:31 Dose: 3 units Levalbuterol HCl (Xopenex) 0.63 mg IH [id number] [facility] Last Admin: 07/07/17 13:29 Dose: Not Given Losartan Potassium (Cozaar) 100 mg PO DAILY [facility] Last Admin: 07/06/17 11:08 Dose: 100 mg Memantine (Namenda) 5 mg PO DAILY [facility] Last Admin: 07/06/17 11:06 Dose: 5 mg Methylprednisolone (Solu-Medrol) 20 mg IVP DAILY [facility] Last Admin: 07/06/17 11:05 Dose: 20 mg Nystatin (Nystatin Oral Susp) 5 ml PO QID [facility] Last Admin: 07/07/17 10:10 Dose: Not Given [id number] Ethyl Esters (Lovaza) 1 gm PO BID [facility] Last Admin: 07/07/17 10:10 Dose: Not Given Oseltamivir Phosphate (Tamiflu Susp) 30 mg PO DAILY [facility] PRN Reason: Protocol Last Admin: 07/06/17 11:11 Dose: 30 mg Pantoprazole Sodium (Protonix Ec Tab) 40 mg PO ACB [facility] Last Admin: 07/07/17 08:31 Dose: 40 mg Tamsulosin HCl (Flomax) 0.4 mg PO DAILY [facility] Last Admin: 07/06/17 10:35 Dose: 0.4 mg Vitamin D (Vitamin D 400 Intl Units Tab) 400 intlu PO DAILY [facility] Last Admin: 07/06/17 11:07 Dose: 400 intlu - Labs Labs: 07/07/17 10:50 07/07/17 10:50 PT 13.3 SECONDS (9.4-12.5) H 07/04/17 14:30 INR 1.16 (0.93-1.08) H 07/04/17 14:30 APTT 34.8 Seconds (25.1-36.5) 07/04/17 14:30 - Constitutional Appears: Well, Non-toxic, No Acute Distress - Head Exam Head Exam: ATRAUMATIC, NORMAL INSPECTION, NORMOCEPHALIC - Eye Exam Eye Exam: EOMI, Normal appearance, PERRL - ENT Exam ENT Exam: Mucous Membranes Dry, Mucous Membranes Moist, Normal Exam, Normal External Ear Exam, Normal Oropharynx, TM's Normal Bilaterally Additional comments: Improved oral thrush and decreased erythema of throat - Respiratory Exam Respiratory Exam: NORMAL BREATHING PATTERN - Extremities Exam Extremities Exam: Normal Inspection - Neurological Exam Neurological Exam: Alert, Awake, Oriented x3 - Psychiatric Exam Psychiatric exam: Normal Affect, Normal Mood - Skin Skin Exam: Normal Color Assessment and Plan (1) Oropharyngeal candidiasis Status: Acute (2) Other voice and resonance disorders Status: Acute (3) Oropharyngeal dysphagia Status: Acute (4) Acute pharyngitis due to other specified organisms Status: Acute (5) Pneumonia Status: Acute (6) Cough Status: Acute - Assessment and Plan (Free Text) Assessment: above problems/assessment Plan: Continue your medical management (medical treatment). Agree with current therapy. Will monitor
--- NOTE | 2017-07-07 22:05 | CP.PCM.PN ---
Subjective - Date & Time of Evaluation Date of Evaluation: 07/07/17 Time of Evaluation: 08:30 - Subjective Subjective: (covering for Dr. Whitman) Patient has been transferred out of the ICU to the telemetry floor yesterday. His breathing has improved. Objective - Vital Signs/Intake and Output Vital Signs (last 24 hours): Temp Pulse Resp BP Pulse Ox 97.7 F 56 L 20 144/70 95 07/07/17 06:39 07/07/17 06:39 07/07/17 06:39 07/07/17 06:39 07/07/17 06:39 Intake and Output: 07/07/17 07/07/17 06:59 18:59 Intake Total 570 120 Output Total 0 Balance 570 120 - Medications Medications: Current Medications Acetylcysteine (Acetylcysteine 20%) 4 ml IH [id number] [facility] Last Admin: 07/07/17 07:31 Dose: 4 ml Amlodipine Besylate (Norvasc) 10 mg PO DAILY [facility] Last Admin: 07/06/17 11:07 Dose: 10 mg Aspirin (Ecotrin) 325 mg PO DAILY [facility] Last Admin: 07/06/17 11:08 Dose: 325 mg Atorvastatin Calcium (Lipitor) 40 mg PO HS [facility] Last Admin: 07/06/17 22:17 Dose: 40 mg Benzonatate (Tessalon Perles) 200 mg PO TID [facility] Last Admin: 07/06/17 17:11 Dose: 200 mg Calcium Acetate (Phoslo) 667 mg PO TID [facility] Last Admin: 07/06/17 17:12 Dose: 667 mg Carvedilol (Coreg) 25 mg PO BID [facility] Last Admin: 07/05/17 18:42 Dose: Not Given Donepezil HCl (Aricept) 10 mg PO HS [facility] Last Admin: 07/06/17 22:17 Dose: 10 mg Heparin Sodium (Porcine) (Heparin) 5,000 units SC Q8H [facility] PRN Reason: Protocol Last Admin: 07/07/17 08:28 Dose: 5,000 units Hydralazine HCl (Apresoline) 100 mg PO BID [facility] Last Admin: 07/06/17 17:12 Dose: 100 mg Doxycycline Hyclate 100 mg/ (Sodium Chloride) 100 mls @ 100 mls/hr IVPB Q12 [facility] PRN Reason: Protocol Last Admin: 07/06/17 22:19 Dose: 100 mls/hr Linezolid (Zyvox 600mg/300ml D5w) 600 mg in 300 mls @ 200 mls/hr IVPB Q12 [facility] PRN Reason: Protocol Stop: 07/12/17 10:01 Last Admin: 07/06/17 22:20 Dose: 200 mls/hr Meropenem 500 mg/ Sodium (Chloride) 50 mls @ 100 mls/hr IVPB Q12 [facility] PRN Reason: Protocol Stop: 07/11/17 22:01 Last Admin: 07/06/17 22:17 Dose: 100 mls/hr Insulin Human Lispro (Humalog Low) 0 units SC ACHS [facility] Last Admin: 07/07/17 08:31 Dose: 3 units Levalbuterol HCl (Xopenex) 0.63 mg IH [id number] [facility] Last Admin: 07/07/17 07:31 Dose: 0.63 mg Losartan Potassium (Cozaar) 100 mg PO DAILY [facility] Last Admin: 07/06/17 11:08 Dose: 100 mg Memantine (Namenda) 5 mg PO DAILY [facility] Last Admin: 07/06/17 11:06 Dose: 5 mg Methylprednisolone (Solu-Medrol) 20 mg IVP DAILY [facility] Last Admin: 07/06/17 11:05 Dose: 20 mg Nystatin (Nystatin Oral Susp) 5 ml PO QID [facility] Last Admin: 07/06/17 22:17 Dose: 5 ml Pjfsu-[id number] Ethyl Esters (Lovaza) 1 gm PO BID [facility] Last Admin: 07/06/17 17:11 Dose: 1 gm Oseltamivir Phosphate (Tamiflu Susp) 30 mg PO DAILY [facility] PRN Reason: Protocol Last Admin: 07/06/17 11:11 Dose: 30 mg Pantoprazole Sodium (Protonix Ec Tab) 40 mg PO ACB [facility] Last Admin: 07/07/17 08:31 Dose: 40 mg Tamsulosin HCl (Flomax) 0.4 mg PO DAILY [facility] Last Admin: 07/06/17 10:35 Dose: 0.4 mg Vitamin D (Vitamin D 400 Intl Units Tab) 400 intlu PO DAILY [facility] Last Admin: 07/06/17 11:07 Dose: 400 intlu - Labs Labs: 07/07/17 05:20 07/07/17 05:20 PT 13.3 SECONDS (9.4-12.5) H 07/04/17 14:30 INR 1.16 (0.93-1.08) H 07/04/17 14:30 APTT 34.8 Seconds (25.1-36.5) 07/04/17 14:30 - Constitutional Appears: No Acute Distress - Head Exam Head Exam: ATRAUMATIC, NORMOCEPHALIC - Cardiovascular Exam Cardiovascular Exam: +S1, +S2 - GI/Abdominal Exam GI & Abdominal Exam: Soft, Normal Bowel Sounds - Neurological Exam Neurological Exam: Alert, Awake Assessment and Plan - Assessment and Plan (Free Text) Assessment: Sepsis pneumonia HTN Diabetes mellitus ESRD on HD Plan: Patient has been transferred out of the ICU to the telemetry floor. He is on IV antibiotics as per infectious disease for pneumonia. Patient is receiving dialysis as per nephrology. Patient has history of heart failure. Fluid removed during dialysis.
[2017-07-08] MEDS: Acetylcysteine 20% Inhal Soln (4ml) IH SCH ×4 (04:09→21:10)
[2017-07-08] MEDS: Levalbuterol 0.63 MG/3 ML Inhal Soln UD IH SCH ×4 (04:10→21:10)
[2017-07-08 07:00] LABS: BASO # 0.01 K/mm3 (0.0-2.0); BASO % 0.1 % (0.0-3.0); GRAN # 5.72 (1.4-6.5); GRAN % 76.8 % (50.0-68.0); HEMOGLOBIN 10.6 g/dL (14.0-18.0); MEAN CELL VOLUME 86.4 fl (80.0-105.0); MEAN CORPUSCULAR HEMOGLOBIN 26.8 pg (25.0-35.0); MEAN PLATELET VOLUME 11.9 fl (7.0-11.0); MONO # 0.8 (0.1-0.6); MONO % 10.1 % (1.0-6.0); RBC 3.96 10^6/uL (3.5-6.1); RED CELL DISTRIBUTION WIDTH 16.6 % (11.5-14.5); WHITE BLOOD COUNT 7.5 10^3/ul (4.5-11.0)
[2017-07-08 07:31] LABS: ALBUMIN 3.2 g/dL (3.0-4.8); BILIRUBIN,DIRECT 0.6 mg/dL (0.0-0.4); CALCIUM 8.8 mg/dL (8.4-10.5); MAGNESIUM 2.2 mg/dL (1.7-2.2)
[2017-07-08] MEDS: Insulin Lispro (humaLOG) LOW Coverage SC SCH (08:06)
[2017-07-08] MEDS: Pantoprazole 40 mg EC Tab PO SCH (08:32)
--- NOTE | 2017-07-08 09:17 | CP.PCM.PN ---
Subjective - Date & Time of Evaluation Date of Evaluation: 07/08/17 Time of Evaluation: 08:45 - Subjective Subjective: (covering for Dr. Whitman) Patient is seen this morning. He is sitting up in bed and eating breakfast. He says he feels better. Denies shortness of breath. Objective - Vital Signs/Intake and Output Vital Signs (last 24 hours): Temp Pulse Resp BP Pulse Ox 99.0 F 59 L 20 148/50 L 95 07/08/17 06:00 07/08/17 06:00 07/08/17 06:00 07/08/17 06:00 07/08/17 06:00 Intake and Output: 07/08/17 07/08/17 06:59 18:59 Intake Total 570 Balance 570 - Medications Medications: Current Medications Acetylcysteine (Acetylcysteine 20%) 4 ml IH [id number] [facility] Last Admin: 07/08/17 07:40 Dose: 4 ml Amlodipine Besylate (Norvasc) 10 mg PO DAILY [facility] Last Admin: 07/07/17 16:19 Dose: 10 mg Aspirin (Ecotrin) 325 mg PO DAILY [facility] Last Admin: 07/07/17 16:20 Dose: 325 mg Atorvastatin Calcium (Lipitor) 40 mg PO HS [facility] Last Admin: 07/07/17 21:22 Dose: 40 mg Benzonatate (Tessalon Perles) 200 mg PO TID [facility] Last Admin: 07/07/17 19:10 Dose: 200 mg Calcium Acetate (Phoslo) 667 mg PO TID [facility] Last Admin: 07/07/17 19:10 Dose: 667 mg Carvedilol (Coreg) 25 mg PO BID [facility] Last Admin: 07/05/17 18:42 Dose: Not Given Donepezil HCl (Aricept) 10 mg PO HS [facility] Last Admin: 07/07/17 21:22 Dose: 10 mg Heparin Sodium (Porcine) (Heparin) 5,000 units SC Q8H [facility] PRN Reason: Protocol Last Admin: 07/08/17 08:06 Dose: 5,000 units Hydralazine HCl (Apresoline) 100 mg PO BID [facility] Last Admin: 07/07/17 19:09 Dose: 100 mg Doxycycline Hyclate 100 mg/ (Sodium Chloride) 100 mls @ 100 mls/hr IVPB Q12 [facility] PRN Reason: Protocol Last Admin: 07/07/17 21:21 Dose: 100 mls/hr Linezolid (Zyvox 600mg/300ml D5w) 600 mg in 300 mls @ 200 mls/hr IVPB Q12 [facility] PRN Reason: Protocol Stop: 07/12/17 10:01 Last Admin: 07/07/17 21:21 Dose: 200 mls/hr Meropenem 500 mg/ Sodium (Chloride) 50 mls @ 100 mls/hr IVPB Q12 [facility] PRN Reason: Protocol Stop: 07/11/17 22:01 Last Admin: 07/07/17 21:22 Dose: 100 mls/hr Insulin Human Lispro (Humalog Low) 0 units SC ACHS [facility] Last Admin: 07/08/17 08:06 Dose: 3 units Levalbuterol HCl (Xopenex) 0.63 mg IH [id number] [facility] Last Admin: 07/08/17 07:40 Dose: 0.63 mg Losartan Potassium (Cozaar) 100 mg PO DAILY [facility] Last Admin: 07/07/17 16:22 Dose: 100 mg Memantine (Namenda) 5 mg PO DAILY [facility] Last Admin: 07/07/17 16:20 Dose: 5 mg Methylprednisolone (Solu-Medrol) 20 mg IVP DAILY [facility] Last Admin: 07/07/17 16:13 Dose: 20 mg Nystatin (Nystatin Oral Susp) 5 ml PO QID [facility] Last Admin: 07/07/17 21:23 Dose: 5 ml Iztij-7-[id number] Ethyl Esters (Lovaza) 1 gm PO BID [facility] Last Admin: 07/07/17 19:10 Dose: 1 gm Oseltamivir Phosphate (Tamiflu Susp) 30 mg PO DAILY [facility] PRN Reason: Protocol Last Admin: 07/07/17 16:10 Dose: 30 mg Pantoprazole Sodium (Protonix Ec Tab) 40 mg PO ACB [facility] Last Admin: 07/08/17 08:32 Dose: 40 mg Tamsulosin HCl (Flomax) 0.4 mg PO DAILY [facility] Last Admin: 07/07/17 16:19 Dose: 0.4 mg Vitamin D (Vitamin D 400 Intl Units Tab) 400 intlu PO DAILY [facility] Last Admin: 07/07/17 16:18 Dose: 400 intlu - Labs Labs: 07/08/17 06:30 07/08/17 06:30 PT 13.3 SECONDS (9.4-12.5) H 07/04/17 14:30 INR 1.16 (0.93-1.08) H 07/04/17 14:30 APTT 34.8 Seconds (25.1-36.5) 07/04/17 14:30 - Constitutional Appears: No Acute Distress - Head Exam Head Exam: ATRAUMATIC, NORMOCEPHALIC - Respiratory Exam Respiratory Exam: Decreased Breath Sounds, NORMAL BREATHING PATTERN - Cardiovascular Exam Cardiovascular Exam: +S1, +S2 - GI/Abdominal Exam GI & Abdominal Exam: Soft, Normal Bowel Sounds. absent: Tenderness - Neurological Exam Neurological Exam: Alert, Awake Assessment and Plan - Assessment and Plan (Free Text) Assessment: s/p hypoxic respiratory failure Pneumonia ESRD on HD Diabetes mellitus COPD Plan: Patient is improving. Patient's blood sugars are running in the high 200s to 300s. We will increase his coverage to high dose. He is on Solumedrol, respiratory treatments and IV antibiotics for COPD with pneumonia. continue Meropenem and Doxycycline as per infectious disease.
[2017-07-08] MEDS: Nystatin 100,000 Units/ml Oral Susp 5 ml UD PO SCH ×4 (10:15→21:23)
[2017-07-08] MEDS: Oseltamivir 6 MG/ML PO SCH (10:15)
[2017-07-08] MEDS: MethylPREDNISolone 40 mg Vial IVP SCH (10:15)
[2017-07-08] MEDS: Omega-3-Acid Ethyl Esters 1 GM Cap PO SCH ×2 (10:16→17:22)
[2017-07-08] MEDS: Cholecalciferol 400 Intl Units Tab PO SCH (10:17)
[2017-07-08] MEDS: Meropenem 500 MG in Sodium Chloride 0.9% 50 ML IVPB SCH ×2 (10:17→21:27)
[2017-07-08] MEDS: Aspirin 325 mg EC Tablets PO SCH (10:17)
[2017-07-08] MEDS: Insulin Reg-HIGH-Coverage SC SCH ×3 (11:55→22:11)
[2017-07-08] MEDS: Linezolid 600 mg in D5W 300 ml 600 MG/300 ML BAG IVPB SCH ×2 (14:01→21:23)
--- NOTE | 2017-07-08 16:26 | CP.PCM.PN ---
Subjective - Date & Time of Evaluation Date of Evaluation: 07/08/17 Time of Evaluation: 09:50 - Subjective Subjective: Comfortable, no fevers. Objective - Vital Signs/Intake and Output Vital Signs (last 24 hours): Temp Pulse Resp BP Pulse Ox 98.5 F 84 33 H 152/73 H 97 07/06/17 04:00 07/06/17 17:12 07/06/17 06:40 07/06/17 17:12 07/06/17 06:40 Intake and Output: 07/06/17 07/06/17 06:59 18:59 Intake Total 400 Output Total 1999 Balance -1600 - Medications Medications: Current Medications Acetylcysteine (Acetylcysteine 20%) 4 ml IH [id number] [facility] Last Admin: 07/06/17 13:35 Dose: 4 ml Amlodipine Besylate (Norvasc) 10 mg PO DAILY [facility] Last Admin: 07/06/17 11:07 Dose: 10 mg Aspirin (Ecotrin) 325 mg PO DAILY [facility] Last Admin: 07/06/17 11:08 Dose: 325 mg Atorvastatin Calcium (Lipitor) 40 mg PO [facility] Last Admin: 07/05/17 22:00 Dose: 40 mg Benzonatate (Tessalon Perles) 200 mg PO TID [facility] Last Admin: 07/06/17 17:11 Dose: 200 mg Calcium Acetate (Phoslo) 667 mg PO TID [facility] Last Admin: 07/06/17 17:12 Dose: 667 mg Carvedilol (Coreg) 25 mg PO BID [facility] Last Admin: 07/05/17 18:42 Dose: Not Given Donepezil HCl (Aricept) 10 mg PO [facility] Last Admin: 07/05/17 22:01 Dose: 10 mg Heparin Sodium (Porcine) (Heparin) 5,000 units SC Q8H [facility] PRN Reason: Protocol Last Admin: 07/06/17 17:15 Dose: 5,000 units Hydralazine HCl (Apresoline) 100 mg PO BID [facility] Last Admin: 07/06/17 17:12 Dose: 100 mg Doxycycline Hyclate 100 mg/ (Sodium Chloride) 100 mls @ 100 mls/hr IVPB Q12 [facility] PRN Reason: Protocol Last Admin: 07/06/17 11:04 Dose: 100 mls/hr Linezolid (Zyvox 600mg/300ml D5w) 600 mg in 300 mls @ 200 mls/hr IVPB Q12 [facility] PRN Reason: Protocol Stop: 07/12/17 10:01 Last Admin: 07/06/17 11:09 Dose: 200 mls/hr Meropenem 500 mg/ Sodium (Chloride) 50 mls @ 100 mls/hr IVPB Q12 [facility] PRN Reason: Protocol Stop: 07/11/17 22:01 Last Admin: 07/06/17 11:04 Dose: 100 mls/hr Insulin Human Lispro (Humalog Low) 0 units SC ACHS [facility] PRN Reason: Protocol Last Admin: 07/06/17 17:22 Dose: 3 units Levalbuterol HCl (Xopenex) 0.63 mg IH [id number] [facility] Last Admin: 07/06/17 13:35 Dose: 0.63 mg Losartan Potassium (Cozaar) 100 mg PO DAILY [facility] Last Admin: 07/06/17 11:08 Dose: 100 mg Memantine (Namenda) 5 mg PO DAILY [facility] Last Admin: 07/06/17 11:06 Dose: 5 mg Methylprednisolone (Solu-Medrol) 20 mg IVP DAILY [facility] Last Admin: 07/06/17 11:05 Dose: 20 mg Nystatin (Nystatin Oral Susp) 5 ml PO QID [facility] Last Admin: 07/06/17 17:11 Dose: 5 ml Jxhpm-4-Ebig Ethyl Esters (Lovaza) 1 gm PO BID [facility] Last Admin: 07/06/17 17:11 Dose: 1 gm Oseltamivir Phosphate (Tamiflu Susp) 30 mg PO DAILY [facility] PRN Reason: Protocol Last Admin: 07/06/17 11:11 Dose: 30 mg Pantoprazole Sodium (Protonix Ec Tab) 40 mg PO ACB [facility] Last Admin: 07/06/17 08:00 Dose: 40 mg Tamsulosin HCl (Flomax) 0.4 mg PO DAILY [facility] Last Admin: 07/06/17 10:35 Dose: 0.4 mg Vitamin D (Vitamin D 400 Intl Units Tab) 400 intlu PO DAILY [facility] Last Admin: 07/06/17 11:07 Dose: 400 intlu - Labs Labs: 07/06/17 04:50 07/06/17 05:29 PT 13.3 SECONDS (9.4-12.5) H 07/04/17 14:30 INR 1.16 (0.93-1.08) H 07/04/17 14:30 APTT 34.8 Seconds (25.1-36.5) 07/04/17 14:30 - Constitutional Appears: Chronically Ill - Head Exam Head Exam: NORMAL INSPECTION - ENT Exam ENT Exam: Mucous Membranes Moist - Neck Exam Neck Exam: absent: Meningismus - Respiratory Exam Respiratory Exam: Decreased Breath Sounds - Cardiovascular Exam Cardiovascular Exam: +S1, +S2 - GI/Abdominal Exam GI & Abdominal Exam: Soft. absent: Tenderness Assessment and Plan - Assessment and Plan (Free Text) Plan: Assessment Severe sepsis due to healthcare-associated pneumonia as well as epiglottitis, R/ O Influenza in this patient also presenting with flu-like illness ESRD on HD DM HTN morbid obesity with BMI 41 dyslipidemia COPD cataracts chronic low back pain Plan continue Zyvox, Merrem, Doxycycline day 4 and Tamiflu day 4; blood cx have been negative reviewed CT neck, CXR will continue to monitor clinically
--- NOTE | 2017-07-08 17:06 | CP.PCM.PN ---
Subjective - Date & Time of Evaluation Date of Evaluation: 07/08/17 Time of Evaluation: 13:20 - Subjective Subjective: Podiatry Progress Note- Dr. Gleason 77 year old male with PMHx of DM, HTN, ESRD on HD, dyslipidemia, COPD, cataracts , chronic low back pain seen and evaluated for right hallux ulceration and bilaterally digital abrasions. Patient is seen resting in bed, with present. Patient denies acute overnight events. Patient denies n/v/sob/cp/ chills or f. No other pedal complaints at this time. Objective - Vital Signs/Intake and Output Vital Signs (last 24 hours): Temp Pulse Resp BP Pulse Ox 97.5 F L 59 L 16 125/83 95 07/08/17 12:00 07/08/17 12:00 07/08/17 12:00 07/08/17 12:00 07/08/17 06:00 Intake and Output: 07/08/17 07/08/17 06:59 18:59 Intake Total 570 Balance 570 - Medications Medications: Current Medications Acetylcysteine (Acetylcysteine 20%) 4 ml IH [id number] [facility] Last Admin: 07/08/17 13:38 Dose: 4 ml Amlodipine Besylate (Norvasc) 10 mg PO DAILY [facility] Last Admin: 07/08/17 10:16 Dose: 10 mg Aspirin (Ecotrin) 325 mg PO DAILY [facility] Last Admin: 07/08/17 10:17 Dose: 325 mg Atorvastatin Calcium (Lipitor) 40 mg PO HS [facility] Last Admin: 07/07/17 21:22 Dose: 40 mg Benzonatate (Tessalon Perles) 200 mg PO TID [facility] Last Admin: 07/08/17 14:01 Dose: 200 mg Calcium Acetate (Phoslo) 667 mg PO TID [facility] Last Admin: 07/08/17 14:01 Dose: 667 mg Carvedilol (Coreg) 25 mg PO BID [facility] Last Admin: 07/05/17 18:42 Dose: Not Given Donepezil HCl (Aricept) 10 mg PO HS [facility] Last Admin: 07/07/17 21:22 Dose: 10 mg Heparin Sodium (Porcine) (Heparin) 5,000 units SC Q8H [facility] PRN Reason: Protocol Last Admin: 07/08/17 08:06 Dose: 5,000 units Hydralazine HCl (Apresoline) 100 mg PO BID [facility] Last Admin: 07/08/17 10:16 Dose: 100 mg Doxycycline Hyclate 100 mg/ (Sodium Chloride) 100 mls @ 100 mls/hr IVPB Q12 [facility] PRN Reason: Protocol Last Admin: 07/08/17 10:20 Dose: 100 mls/hr Linezolid (Zyvox 600mg/300ml D5w) 600 mg in 300 mls @ 200 mls/hr IVPB Q12 [facility] PRN Reason: Protocol Stop: 07/12/17 10:01 Last Admin: 07/08/17 14:01 Dose: 200 mls/hr Meropenem 500 mg/ Sodium (Chloride) 50 mls @ 100 mls/hr IVPB Q12 [facility] PRN Reason: Protocol Stop: 07/11/17 22:01 Last Admin: 07/08/17 10:17 Dose: 100 mls/hr Insulin Human Regular (Humulin R High) 0 units SC ACHS [facility] PRN Reason: Protocol Last Admin: 07/08/17 11:55 Dose: 7 units Levalbuterol HCl (Xopenex) 0.63 mg IH [id number] [facility] Last Admin: 07/08/17 13:38 Dose: 0.63 mg Losartan Potassium (Cozaar) 100 mg PO DAILY [facility] Last Admin: 07/08/17 10:17 Dose: 100 mg Memantine (Namenda) 5 mg PO DAILY [facility] Last Admin: 07/08/17 10:16 Dose: 5 mg Methylprednisolone (Solu-Medrol) 20 mg IVP DAILY [facility] Last Admin: 07/08/17 10:15 Dose: 20 mg Nystatin (Nystatin Oral Susp) 5 ml PO QID [facility] Last Admin: 07/08/17 13:56 Dose: 5 ml [id number]-5-[id number] Ethyl Esters (Lovaza) 1 gm PO BID [facility] Last Admin: 07/08/17 10:16 Dose: 1 gm Oseltamivir Phosphate (Tamiflu Susp) 30 mg PO DAILY [facility] PRN Reason: Protocol Last Admin: 07/08/17 10:15 Dose: 30 mg Pantoprazole Sodium (Protonix Ec Tab) 40 mg PO ACB [facility] Last Admin: 07/08/17 08:32 Dose: 40 mg Tamsulosin HCl (Flomax) 0.4 mg PO DAILY [facility] Last Admin: 07/08/17 10:17 Dose: 0.4 mg Vitamin D (Vitamin D 400 Intl Units Tab) 400 intlu PO DAILY [facility] Last Admin: 07/08/17 10:17 Dose: 400 intlu - Labs Labs: 07/08/17 06:30 07/08/17 06:30 PT 13.3 SECONDS (9.4-12.5) H 07/04/17 14:30 INR 1.16 (0.93-1.08) H 07/04/17 14:30 APTT 34.8 Seconds (25.1-36.5) 07/04/17 14:30 - Constitutional Appears: Non-toxic, No Acute Distress - Extremities Exam Additional comments: VASCULAR: DP/PT pulses 1/4 bilaterally, HEEL GUMMER< 3 seconds, skin temperature is WNL NEUROLOGIC: Protective sensation and gross sensation decreased ORTHOPEDIC: Negative pain on palpation to the left lower extremity DERMATOLOGICAL: Superficial ulceration undergoing re-epithelialization on medial aspect of the right hallux measuring approximately .5 x .5 x .1 cm. No erythema, no tunneling , no undermining, no probe to bone, no drainage, no odor noted. Tiny scab/necrotic ulceration noted to the dorsum of the 4th right digit measuring approximately .2 x .2 cm with no erythema, no tunneling, no undermining, no probe to bone, no drainage, no odor noted. Tiny scab noted to the dorsum of the 2nd left digit measuring approximately .1x .1 cm with no erythema, no tunneling, no undermining, no probe to bone, no drainage, no odor noted. - Neurological Exam Neurological Exam: Alert, Awake, Oriented x3 - Psychiatric Exam Psychiatric exam: Normal Affect, Normal Mood Assessment and Plan - Assessment and Plan (Free Text) Assessment: 77 year old male with PMHx of DM, HTN, ESRD on HD, dyslipidemia, COPD, cataracts , chronic low back pain for bilaterally foot wounds Plan: Patient examined and evaluated Discussed plan in detail with attending Dr. Gleason Labs, chart, vitals reviewed Cleansed ulceration with saline solution Hydrogel applied to right hallux ulceration. Optifoam applied ulceration and abrasion Will continue to follow patient while in house Upon discharge patient will continue to follow up with Dr. Maher in the wound care clinic within 1 week
--- NOTE | 2017-07-08 17:45 | PN ---
DATE: 07/08/2017 SUBJECTIVE: Patient is seen lying in bed. He is awake, he is alert, he is comfortable. He denies any pain. Denies any shortness of breath. He does have some cough. He does have some phlegm. PHYSICAL EXAMINATION: GENERAL: Obese elderly male, lying in bed. VITAL SIGNS: Blood pressure 125/83, heart rate 59, respiratory rate 18, temperature 97.5. HEENT: Normocephalic, atraumatic, positive pallor. NECK: Supple, no JVD. LUNGS: Bilateral equal air entry, crackles right base. CARDIAC: S1, S2. Regular rate and rhythm. No murmur, no rub. ABDOMEN: Obese, distended, soft, nontender, bowel sounds present. EXTREMITIES: No lower extremity edema. INTAKE AND OUTPUT: Not charted. LABORATORY DATA: WBC 7.5, hemoglobin 10.6, hematocrit 34, platelets 173. Sodium 137, potassium 3.9, chloride 94, CO2 of 30, BUN 64, creatinine 5.2, glucose 59. Calcium, not checked. MEDICATIONS: List reviewed. ASSESSMENT: 1. Right lower lobe pneumonia. 2. Status post respiratory failure. 3. Status post decompensated congestive heart failure. 4. Morbid obesity. 5. End-stage renal disease. 6. Poorly controlled diabetes. 7. Hypertension. PLAN: 1. Continue antibiotics. 2. Next dialysis on Sunday. 3. Monitor fingersticks and try to maintain euglycemia. 4. Physical therapy. 5. Discharge planning. Yadira Fox MD
[2017-07-09] MEDS: Levalbuterol 0.63 MG/3 ML Inhal Soln UD IH SCH ×3 (02:35→13:22)
[2017-07-09] MEDS: Acetylcysteine 20% Inhal Soln (4ml) IH SCH ×3 (02:35→13:22)
[2017-07-09 08:20] LABS: BASO # 0.01 K/mm3 (0.0-2.0); BASO % 0.1 % (0.0-3.0); EOS % 0.4 % (1.5-5.0); GRAN # 6.55 (1.4-6.5); HEMOGLOBIN 10.6 g/dL (14.0-18.0); LYMPH # 1.8 (1.2-3.4); LYMPH % 19.2 % (22.0-35.0); MEAN CELL VOLUME 85.4 fl (80.0-105.0); MEAN CORPUSCULAR HEMOGLOBIN 26.7 pg (25.0-35.0); MEAN CORPUSCULAR HGB CONC 31.3 g/dl (31.0-37.0); MEAN PLATELET VOLUME 10.2 fl (7.0-11.0); MONO # 0.9 (0.1-0.6); MONO % 9.3 % (1.0-6.0); RBC 3.97 10^6/uL (3.5-6.1); RED CELL DISTRIBUTION WIDTH 16.6 % (11.5-14.5); WHITE BLOOD COUNT 9.2 10^3/ul (4.5-11.0)
[2017-07-09] MEDS: Pantoprazole 40 mg EC Tab PO SCH (08:23)
[2017-07-09] MEDS: Insulin Reg-HIGH-Coverage SC SCH ×3 (08:23→18:34)
[2017-07-09 08:30] LABS: ALB/GLOB RATIO 1.1 (1.1-1.8); ALBUMIN 3.2 g/dL (3.0-4.8); CALCIUM 8.5 mg/dL (8.4-10.5)
[2017-07-09] MEDS ORDERED: Fluconazole IV 200mg/100 ml NS 100 MG in Premixed IV 1 EA IVPB SCH (10:15)
[2017-07-09 10:23] LABS: MAGNESIUM 2.4 mg/dL (1.7-2.2)
--- NOTE | 2017-07-09 10:32 | CP.PCM.PN ---
Subjective - Date & Time of Evaluation Date of Evaluation: 07/09/17 Time of Evaluation: 10:29 - Subjective Subjective: Patient seen and examined at bedside. Patient states breathing is improved this morning. No acute events overnight. Denies chest pain, shortness of breath, nausea, vomiting, diarrhea, fever, chills. Objective - Vital Signs/Intake and Output Vital Signs (last 24 hours): Temp Pulse Resp BP Pulse Ox 98.2 F 58 L 18 119/43 L 90 L 07/08/17 23:54 07/09/17 05:47 07/08/17 23:54 07/08/17 23:54 07/08/17 23:54 Intake and Output: 07/09/17 07/09/17 06:59 18:59 Intake Total 450 240 Balance 450 240 - Medications Medications: Current Medications Acetylcysteine (Acetylcysteine 20%) 4 ml IH [id number] [facility] Last Admin: 07/09/17 08:11 Dose: 4 ml Amlodipine Besylate (Norvasc) 10 mg PO DAILY [facility] Last Admin: 07/08/17 10:16 Dose: 10 mg Aspirin (Ecotrin) 325 mg PO DAILY [facility] Last Admin: 07/08/17 10:17 Dose: 325 mg Atorvastatin Calcium (Lipitor) 40 mg PO HS [facility] Last Admin: 07/08/17 21:23 Dose: 40 mg Benzonatate (Tessalon Perles) 200 mg PO TID [facility] Last Admin: 07/08/17 17:22 Dose: 200 mg Calcium Acetate (Phoslo) 667 mg PO TID [facility] Last Admin: 07/08/17 17:22 Dose: 667 mg Carvedilol (Coreg) 25 mg PO BID [facility] Last Admin: 07/05/17 18:42 Dose: Not Given Donepezil HCl (Aricept) 10 mg PO HS [facility] Last Admin: 07/08/17 21:23 Dose: 10 mg Doxycycline Hyclate (Doryx) 100 mg PO Q12 [facility] Heparin Sodium (Porcine) (Heparin) 5,000 units SC Q8H [facility] PRN Reason: Protocol Last Admin: 07/09/17 08:23 Dose: 5,000 units Hydralazine HCl (Apresoline) 100 mg PO BID [facility] Last Admin: 07/08/17 17:22 Dose: 100 mg Linezolid (Zyvox 600mg/300ml D5w) 600 mg in 300 mls @ 200 mls/hr IVPB Q12 [facility] PRN Reason: Protocol Stop: 07/12/17 10:01 Last Admin: 07/08/17 21:23 Dose: 200 mls/hr Meropenem 500 mg/ Sodium (Chloride) 50 mls @ 100 mls/hr IVPB Q12 [facility] PRN Reason: Protocol Stop: 07/11/17 22:01 Last Admin: 07/08/17 21:27 Dose: 100 mls/hr Fluconazole 100 mg/ (Miscellaneous) 50 mls @ 100 mls/hr IVPB DAILY [facility] PRN Reason: Protocol Insulin Human Regular (Humulin R High) 0 units SC ACHS [facility] PRN Reason: Protocol Last Admin: 07/09/17 08:23 Dose: 4 units Levalbuterol HCl (Xopenex) 0.63 mg IH [id number] [facility] Last Admin: 07/09/17 08:11 Dose: 0.63 mg Losartan Potassium (Cozaar) 100 mg PO DAILY [facility] Last Admin: 07/08/17 10:17 Dose: 100 mg Memantine (Namenda) 5 mg PO DAILY [facility] Last Admin: 07/08/17 10:16 Dose: 5 mg Methylprednisolone (Solu-Medrol) 20 mg IVP DAILY [facility] Last Admin: 07/08/17 10:15 Dose: 20 mg Nystatin (Nystatin Oral Susp) 5 ml PO QID [facility] Last Admin: 07/08/17 21:23 Dose: 5 ml [id number]-5-[id number] Ethyl Esters (Lovaza) 1 gm PO BID [facility] Last Admin: 07/08/17 17:22 Dose: 1 gm Oseltamivir Phosphate (Tamiflu Susp) 30 mg PO DAILY [facility] PRN Reason: Protocol Last Admin: 07/08/17 10:15 Dose: 30 mg Pantoprazole Sodium (Protonix Ec Tab) 40 mg PO ACB [facility] Last Admin: 07/09/17 08:23 Dose: 40 mg Tamsulosin HCl (Flomax) 0.4 mg PO DAILY [facility] Last Admin: 07/08/17 10:17 Dose: 0.4 mg Vitamin D (Vitamin D 400 Intl Units Tab) 400 intlu PO DAILY [facility] Last Admin: 07/08/17 10:17 Dose: 400 intlu - Labs Labs: 07/09/17 08:00 07/09/17 08:00 PT 13.3 SECONDS (9.4-12.5) H 07/04/17 14:30 INR 1.16 (0.93-1.08) H 07/04/17 14:30 APTT 34.8 Seconds (25.1-36.5) 07/04/17 14:30 - Constitutional Appears: Non-toxic, No Acute Distress - Head Exam Head Exam: ATRAUMATIC, NORMAL INSPECTION, NORMOCEPHALIC - ENT Exam ENT Exam: Mucous Membranes Moist, Normal Exam - Respiratory Exam Respiratory Exam: Decreased Breath Sounds, NORMAL BREATHING PATTERN. absent: Rales, Rhonchi, Wheezes - Cardiovascular Exam Cardiovascular Exam: RRR, +S1, +S2 - GI/Abdominal Exam GI & Abdominal Exam: Soft, Normal Bowel Sounds. absent: Tenderness - Extremities Exam Extremities Exam: absent: Calf Tenderness, Pedal Edema Additional comments: Wounds bandaged - Neurological Exam Neurological Exam: Alert, Awake, Oriented x3 - Psychiatric Exam Psychiatric exam: Normal Affect, Normal Mood - Skin Skin Exam: Intact, Normal Color, Warm Assessment and Plan - Assessment and Plan (Free Text) Plan: 77 y/o with PMH of ESRD on Sunday//Sunday hemodialysis, IDDM, CVA, tobacco abuse, COPD, presents with severe community acquired pneumonia and epiglottitis. Patient currently stable and will be continued on Zyvox, Merrem, Doxycycline, and Tamiflu as per ID. No surgical intervention as per ENT. Will continue Dialysis, with next session tomorrow. He is also being followed by podiatry, who is treating his healing lower extremity wounds. Patient is currently being evaluated for TCU. Will continue to monitor closely. Bao, PGY-2
[2017-07-09] MEDS: Aspirin 325 mg EC Tablets PO SCH (10:45)
[2017-07-09] MEDS: MethylPREDNISolone 40 mg Vial IVP SCH (10:46)
[2017-07-09] MEDS: Oseltamivir 6 MG/ML PO SCH (10:46)
[2017-07-09] MEDS: Nystatin 100,000 Units/ml Oral Susp 5 ml UD PO SCH ×3 (10:46→18:35)
[2017-07-09] MEDS: Omega-3-Acid Ethyl Esters 1 GM Cap PO SCH ×2 (10:46→18:36)
[2017-07-09] MEDS: Meropenem 500 MG in Sodium Chloride 0.9% 50 ML IVPB SCH (10:46)
[2017-07-09] MEDS: Linezolid 600 mg in D5W 300 ml 600 MG/300 ML BAG IVPB SCH (10:47)
[2017-07-09] MEDS: Cholecalciferol 400 Intl Units Tab PO SCH (10:47)
--- NOTE | 2017-07-09 12:44 | PN ---
DATE: 07/09/2017 SUBJECTIVE: The patient is seen in the dialysis unit. He is awake, he is alert, he is comfortable. PHYSICAL EXAMINATION: VITAL SIGNS: Blood pressure 119/43, heart rate 57, respiratory rate 18 and temperature 98.2. HEENT: Normocephalic, atraumatic. No pallor. NECK: Supple. No JVD. LUNGS: Bilateral equal air entry, bilateral equal expansion. CARDIAC: S1, S2, regular rate and rhythm. No murmur, no rub. ABDOMEN: Obese, distended, soft, nontender, bowel sounds present. EXTREMITIES: No lower extremity edema. LABORATORY DATA: WBC 9.2, hemoglobin 10.6, hematocrit 34 and platelets 160. Sodium 139, potassium 3.9, chloride 96, CO2 of 26, BUN 93, creatinine 7.1, glucose 222, calcium 8.5, phosphorus 5.4, magnesium 2.4, albumin 3.2. Cultures all negative. MEDICATIONS: List reviewed. ASSESSMENT: 1. End-stage renal disease, dialysis today because patient is shifting his dialysis schedule. 2. Right lower lobe pneumonia. 3. Status post decompensated congestive heart failure, now compensated. 4. Severe hypertension. 5. Morbid obesity. 6. [id number] diabetes mellitus. PLAN: 1. Dialysis today. 2. Continue antibiotics for pneumonia. 3. Continue current antihypertensives. 4. Monitor fingerstick. 5. Continue phosphate binders. Yadira Fox MD
--- NOTE | 2017-07-09 14:48 | CP.PCM.PN ---
Subjective - Date & Time of Evaluation Date of Evaluation: 07/09/17 Time of Evaluation: 09:50 - Subjective Subjective: No fevers, not in distress. Objective - Vital Signs/Intake and Output Vital Signs (last 24 hours): Temp Pulse Resp BP Pulse Ox 97.5 F L 59 L 16 125/83 95 07/08/17 12:00 07/08/17 12:00 07/08/17 12:00 07/08/17 12:00 07/08/17 06:00 Intake and Output: 07/08/17 07/08/17 06:59 18:59 Intake Total 570 Balance 570 - Medications Medications: Current Medications Acetylcysteine (Acetylcysteine 20%) 4 ml IH [id number] [facility] Last Admin: 07/08/17 13:38 Dose: 4 ml Amlodipine Besylate (Norvasc) 10 mg PO DAILY [facility] Last Admin: 07/08/17 10:16 Dose: 10 mg Aspirin (Ecotrin) 325 mg PO DAILY [facility] Last Admin: 07/08/17 10:17 Dose: 325 mg Atorvastatin Calcium (Lipitor) 40 mg PO [facility] Last Admin: 07/07/17 21:22 Dose: 40 mg Benzonatate (Tessalon Perles) 200 mg PO TID [facility] Last Admin: 07/08/17 14:01 Dose: 200 mg Calcium Acetate (Phoslo) 667 mg PO TID [facility] Last Admin: 07/08/17 14:01 Dose: 667 mg Carvedilol (Coreg) 25 mg PO BID [facility] Last Admin: 07/05/17 18:42 Dose: Not Given Donepezil HCl (Aricept) 10 mg PO [facility] Last Admin: 07/07/17 21:22 Dose: 10 mg Heparin Sodium (Porcine) (Heparin) 5,000 units SC Q8H [facility] PRN Reason: Protocol Last Admin: 07/08/17 08:06 Dose: 5,000 units Hydralazine HCl (Apresoline) 100 mg PO BID [facility] Last Admin: 07/08/17 10:16 Dose: 100 mg Doxycycline Hyclate 100 mg/ (Sodium Chloride) 100 mls @ 100 mls/hr IVPB Q12 [facility] PRN Reason: Protocol Last Admin: 07/08/17 10:20 Dose: 100 mls/hr Linezolid (Zyvox 600mg/300ml D5w) 600 mg in 300 mls @ 200 mls/hr IVPB Q12 [facility] PRN Reason: Protocol Stop: 07/12/17 10:01 Last Admin: 07/08/17 14:01 Dose: 200 mls/hr Meropenem 500 mg/ Sodium (Chloride) 50 mls @ 100 mls/hr IVPB Q12 [facility] PRN Reason: Protocol Stop: 07/11/17 22:01 Last Admin: 07/08/17 10:17 Dose: 100 mls/hr Insulin Human Regular (Humulin R High) 0 units SC ACHS [facility] PRN Reason: Protocol Last Admin: 07/08/17 11:55 Dose: 7 units Levalbuterol HCl (Xopenex) 0.63 mg IH [id number] [facility] Last Admin: 07/08/17 13:38 Dose: 0.63 mg Losartan Potassium (Cozaar) 100 mg PO DAILY [facility] Last Admin: 07/08/17 10:17 Dose: 100 mg Memantine (Namenda) 5 mg PO DAILY [facility] Last Admin: 07/08/17 10:16 Dose: 5 mg Methylprednisolone (Solu-Medrol) 20 mg IVP DAILY [facility] Last Admin: 07/08/17 10:15 Dose: 20 mg Nystatin (Nystatin Oral Susp) 5 ml PO QID [facility] Last Admin: 07/08/17 13:56 Dose: 5 ml [id number]-6-Usmb Ethyl Esters (Lovaza) 1 gm PO BID [facility] Last Admin: 07/08/17 10:16 Dose: 1 gm Oseltamivir Phosphate (Tamiflu Susp) 30 mg PO DAILY [facility] PRN Reason: Protocol Last Admin: 07/08/17 10:15 Dose: 30 mg Pantoprazole Sodium (Protonix Ec Tab) 40 mg PO ACB [facility] Last Admin: 07/08/17 08:32 Dose: 40 mg Tamsulosin HCl (Flomax) 0.4 mg PO DAILY [facility] Last Admin: 07/08/17 10:17 Dose: 0.4 mg Vitamin D (Vitamin D 400 Intl Units Tab) 400 intlu PO DAILY [facility] Last Admin: 07/08/17 10:17 Dose: 400 intlu - Labs Labs: 07/08/17 06:30 07/08/17 06:30 PT 13.3 SECONDS (9.4-12.5) H 07/04/17 14:30 INR 1.16 (0.93-1.08) H 07/04/17 14:30 APTT 34.8 Seconds (25.1-36.5) 07/04/17 14:30 - Constitutional Appears: Chronically Ill - Head Exam Head Exam: NORMAL INSPECTION - Neck Exam Neck Exam: absent: Meningismus - Respiratory Exam Respiratory Exam: Decreased Breath Sounds - Cardiovascular Exam Cardiovascular Exam: +S1, +S2 - GI/Abdominal Exam GI & Abdominal Exam: Soft. absent: Tenderness Assessment and Plan - Assessment and Plan (Free Text) Plan: Assessment Severe sepsis due to healthcare-associated pneumonia as well as epiglottitis with oropahryngeal candidiasis, R/O Influenza in this patient also presenting with flu-like illness ESRD on HD DM HTN morbid obesity with BMI 41 dyslipidemia COPD cataracts chronic low back pain Plan on Zyvox, Merrem, Doxycycline day 6 as well as Diflucan - complete 7 days of therapy; blood cx have been negative; white plaques consistent with Elke noted on scoping of the epiglottis area by ENT reviewed CT neck, CXR will continue to monitor clinically
--- NOTE | 2017-07-09 14:49 | PN ---
DATE: 07/09/2017 CARDIOLOGY FOLLOWUP SUBJECTIVE: The patient is without shortness of breath, without chest pain. PHYSICAL EXAMINATION VITAL SIGNS: Blood pressure is 119/43, the heart rates in the 50s. NECK: Negative JVD. LUNGS: Without rales. HEART: Reveals S1 and S2. EXTREMITIES: Without change. LABORATORY DATA: Hemoglobin is 10.6. Chemistries: Potassium is 3.9. IMPRESSION: 1. Status post congestive heart failure. 2. End-stage renal disease. 3. Pulmonary hypertension. 4. Peripheral vascular disease. 5. Diabetes mellitus. 6. Left ventricular hypertrophy with good left ventricular systolic function. PLAN: Given these findings, the patient is going for dialysis today. He remains hemodynamically stable at this time. Yong Duran MD
[2017-07-09 16:19] VITALS: O2SAT 96
[2017-07-09 17:51] VITALS: PULSE 63; RESP 20; TEMP 98.2
[2017-07-09 18:44] VITALS: BP 129/59
--- NOTE | 2017-07-09 19:00 | RAD ---
HISTORY: CHF/PNEUMONIA COMPARISON: 07/04/2017 TECHNIQUE: Chest PA and lateral FINDINGS: LUNGS: Resolution of right lower lobe infiltrate. PLEURA: No significant pleural effusion identified. No pneumothorax apparent. CARDIOVASCULAR: No radiographic findings to suggest acute or significant cardiovascular disease. OSSEOUS STRUCTURES: No significant abnormalities. VISUALIZED UPPER ABDOMEN: Normal. OTHER FINDINGS: None. IMPRESSION: No active disease. Resolved extensive infiltrates primarily affecting right lower lobe
--- NOTE | 2017-07-10 07:55 | DS ---
FINAL PROGRESS NOTE AND DISCHARGE SUMMARY HISTORY OF PRESENT ILLNESS: Patient is seen in hemodialysis. Patient is seen lying in the bed. Patient is alert, awake, responsive. Overnight nurse's notes were reviewed. No adverse events were documented. Patient is seen undergoing dialysis at present. According to the social services aide, patient has been also accepted to TCU. PHYSICAL EXAMINATION: VITAL SIGNS: T-max 98.2. Heart rate 63 and 68. Telemetry shows sinus rhythm, sinus bradycardia. Blood pressure is 128/59, 130/55, 135/79. Respiration 20. O2 sat is 96, 95, 98. HEENT: Patient's head examination normocephalic, atraumatic. HEENT examination shows pinkish pale conjunctivae. Anicteric sclerae. No oropharyngeal lesion. No neck rigidity. Questionable soft carotid bruit. CHEST: Kyphosis. LUNGS: Shows occasional rhonchi upper lung [place]. CARDIOVASCULAR: Shows S1 and S2. Positive systolic murmur left sternal border, right second intercostal space, left second intercostal space. ABDOMEN: Soft. Positive bowel sound. GENITALIA: Male. RECTAL: Examination is deferred. EXTREMITIES: Shows positive left upper extremity AV fistula, positive dialysis catheter. Positive surgical scar healed of the left upper extremity. Lower extremity shows no pitting edema, no calf tenderness, no Homans' sign. NEUROLOGIC: Patient is alert, awake, responsive. MUSCULOSKELETAL: Shows a body mass index of 36. Gait examination is not tested. DIAGNOSTICS: On 07/09, WBC 9.2, hemoglobin/hematocrit 10.6 and 34, platelets 160. Granulocytes 71. Sodium 139, potassium 3.9, chloride 96, CO2 26, anion gap 21, BUN 93, creatinine 7.1, GFR 9, fingerstick blood sugar 222, 219, 152, 167, 213. Random glucose 222. Hemoglobin A1c 6.6, phosphorus 5.4, magnesium 2.4. Influenza, Legionella serologies negative. Blood cultures, sputum cultures, MRSA cultures nondetected. Patient underwent a repeat chest x-ray for evaluation of CHF and pneumonia. PA and lateral was done, which shows resolution of the right lower lobe pneumonia and infiltrate. Resolved right lower lobe pneumonia. Patient's echocardiogram, EKG all were reviewed. FINAL IMPRESSION, PLAN AND DISCHARGE DIAGNOSES: 1. Deconditioning. 2. Gait dysfunction. 3. Severe sepsis due to healthcare-associated pneumonia and epiglottitis with oropharyngeal candidiasis. 4. Resolving right lower lobe healthcare-associated pneumonia. 5. Morbid obesity. 6. End-stage renal disease, hemodialysis dependent three times a week via the left upper extremity AV fistula. 7. Obesity with elevated body mass index of 36. 8. Sinus bradycardia. 9. Low-grade fever. 10. History of hypertension. 11. Status post uncontrolled hypertension. 12. Normocytic anemia. 13. Granulocytosis. 14. Elevated erythrocyte sedimentation rate of 60. 15. Hypoxemia. 16. Insulin-requiring diabetes mellitus with hemoglobin A1c of 6.6. 17. Secondary hyperparathyroidism with elevated parathyroid hormone of 120. 18. Indeterminate troponin. 19. Elevated C-reactive protein of greater than 15. 20. Hyperprocalcitoninemia. 21. Increased anion gap metabolic acidosis. 22. Congestive heart failure with elevated brain natriuretic peptide. 23. Hyperglycemia. 24. Probable left basal ganglia left will radiata old chronic infarct. 25. 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 26. Resolved right lower lobe pneumonia. 27. Oral candidiasis. 28. Right maxillary sinus partial opacification and minimal left maxillary sinus mucoperiosteal thickening and frontal sinus mucoperiosteal thickening. 29. Tonsillar hypertrophy. 30. Shotty cervical lymphadenopathy, bilateral. 31. Osteopenia. 32. Degenerative joint disease. 33. Epiglottitis. 34. Extensive centrilobular pulmonary emphysema. 35. Right lower lobe extensive consolidation and right middle lobe consolidation and left lower lobe subsegmental atelectasis. 36. Possible pulmonary arterial hypertension with dilated main pulmonary artery. 37. Left ventricular ejection fraction of 58%. 38. Pulmonary arterial hypertension with right ventricular systolic pressure of 53 mmHg. 39. Left ventricular hypertrophy. 40. Moderate mitral annular calcification. 41. Tricuspid regurgitation with [id number] pulmonary arterial hypertension. 42. Mildly dilated left and right atrium. Patient is to be discharged to TCU. DISCHARGE MEDICATIONS: Patient's discharge medications will be: 1. Mucomyst nebulizer 20% 4 mL q. 6 hours with Xopenex nebulizer 0.63 mg every 6 hours. 2. Hydralazine 100 mg twice a day. 3. Aricept 10 mg daily. 4. Coreg decreased to 12.5 mg twice a day. 5. Cozaar 100 mg daily. 6. Doxycycline 100 mg p.o. q. 12. 7. Cozaar 100 mg daily. 8. Ecotrin 81 mg p.o. daily. 9. Flomax 0.4 mg daily. 10. Diflucan 100 mg IV daily. 11. Heparin 5000 units subcu q. 8. 12. Humulin regular insulin high-dose sliding scale coverage a.c. and at bedtime. 13. Lipitor 40 mg daily. 14. Lovaza 1 g twice a day. 15. Meropenem 500 mg IV q. 12. 16. Namenda 5 mg daily. 17. Norvasc 10 mg daily. 18. Mycelex Kami 10 mg five times a day swish and swallow. 19. PhosLo 667 mg three times a day. 20. Protonix 40 mg daily. 21. Prednisone 20 mg daily. 22. Tamiflu suspension 30 mg daily for total of 5 days. 23. Tessalon Perles 200 three times a day. 24. Vitamin D 400 International Units daily. 25. Zyvox 600 mg IV q. 12. The patient will be transferred to TCU under Dr. Whitman's service. Patient will be continued on above medications as dictated above. Patient will be continued on all the above medications, which are dictated above. Patient will be continued on IV antibiotics. Patient will be discharged to Transitional Care Unit with the above medications with continuation of the medical consults and subspecialty consults. Dictated and electronically signed, not read. Oleg Whitman MD
== END 2017-07-09 20:45 | DRG 871 ==
LOC: ED 14:22 → ERH 16:00 → ICU 18:50 → 2RNO 07-06 18:06
PROVIDERS: ADMIT Internal Medicine; ATTEND Internal Medicine
PROC: 5A1D70Z Performance of Urinary Filtration, Intermittent, Less than 6 Hours Per Day (ICD-10-PCS; principal; 2017-07-04)
PROC: 5A1D70Z Performance of Urinary Filtration, Intermittent, Less than 6 Hours Per Day (ICD-10-PCS; 2017-07-05)
PROC: 3E0F7GC Introduction of Other Therapeutic Substance into Respiratory Tract, Via Natural or Artificial Opening (ICD-10-PCS; 2017-07-05)
PROC: 5A1D70Z Performance of Urinary Filtration, Intermittent, Less than 6 Hours Per Day (ICD-10-PCS; 2017-07-06)
PROC: 5A1D70Z Performance of Urinary Filtration, Intermittent, Less than 6 Hours Per Day (ICD-10-PCS; 2017-07-09)
DX: A41.9 Sepsis, unspecified organism (principal); J18.9 Pneumonia, unspecified organism; J96.91 Respiratory failure, unspecified with hypoxia; I13.2 Hypertensive heart and chronic kidney disease with heart failure and with stage 5 chronic kidney disease, or end stage renal disease; N18.6 End stage renal disease; E11.22 Type 2 diabetes mellitus with diabetic chronic kidney disease; B37.0 Candidal stomatitis; E11.51 Type 2 diabetes mellitus with diabetic peripheral angiopathy without gangrene; E66.01 Morbid (severe) obesity due to excess calories; I27.21 Secondary pulmonary arterial hypertension; I50.21 Acute systolic (congestive) heart failure; J05.10 Acute epiglottitis without obstruction; J44.0 Chronic obstructive pulmonary disease with (acute) lower respiratory infection; N25.81 Secondary hyperparathyroidism of renal origin; J44.1 Chronic obstructive pulmonary disease with (acute) exacerbation; J98.11 Atelectasis; E87.2 Acidosis; M41.9 Scoliosis, unspecified; R13.12 Dysphagia, oropharyngeal phase; F03.90 Unspecified dementia, unspecified severity, without behavioral disturbance, psychotic disturbance, mood disturbance, and anxiety; R65.20 Severe sepsis without septic shock; Y95 Nosocomial condition; N40.0 Benign prostatic hyperplasia without lower urinary tract symptoms; E55.9 Vitamin D deficiency, unspecified; E78.1 Pure hyperglyceridemia; J35.1 Hypertrophy of tonsils; E11.36 Type 2 diabetes mellitus with diabetic cataract; D63.1 Anemia in chronic kidney disease; E78.00 Pure hypercholesterolemia, unspecified; E11.621 Type 2 diabetes mellitus with foot ulcer; G89.29 Other chronic pain; M54.5 Low back pain; Z99.2 Dependence on renal dialysis; R49.8 Other voice and resonance disorders; E11.65 Type 2 diabetes mellitus with hyperglycemia; R59.0 Localized enlarged lymph nodes; R26.9 Unspecified abnormalities of gait and mobility; I36.1 Nonrheumatic tricuspid (valve) insufficiency; L97.519 Non-pressure chronic ulcer of other part of right foot with unspecified severity; Z79.4 Long term (current) use of insulin; Z68.36 Body mass index [BMI] 36.0-36.9, adult; Z86.73 Personal history of transient ischemic attack (TIA), and cerebral infarction without residual deficits; Z87.891 Personal history of nicotine dependence

== ENCOUNTER 2017-07-09 20:45 | Inpatient (IN) | payer OTHER, BC ==
[2017-07-09 21:20] VITALS: BMI 34.9
[2017-07-09] MEDS: Insulin Reg-HIGH-Coverage SC SCH (22:43)
[2017-07-10] MEDS ORDERED: Influenza Vaccine 60 mcg/0.5 mL SYR (4YR UP) IM ONE (02:17)
[2017-07-10] MEDS ORDERED: Pneumococcal 23-Valent Vaccine IM ONE (02:17)
[2017-07-10] MEDS: Acetylcysteine 20% Inhal Soln (4ml) IH SCH ×5 (03:10→19:58)
[2017-07-10] MEDS: Levalbuterol 0.63 MG/3 ML Inhal Soln UD IH PRN ×2 (03:10→07:27)
[2017-07-10] MEDS: Pantoprazole 40 mg EC Tab PO SCH (05:15)
[2017-07-10] MEDS ORDERED: Meropenem 500 MG in Sodium Chloride 0.9% 50 ML IVPB SCH (06:00)
[2017-07-10] MEDS ORDERED: Linezolid 600 mg in D5W 300 ml 600 MG/300 ML BAG IVPB SCH (06:00)
[2017-07-10] MEDS: Insulin Reg-HIGH-Coverage SC SCH ×4 (06:30→22:20)
[2017-07-10 07:24] LABS: BASO # 0.01 K/mm3 (0.0-2.0); BASO % 0.1 % (0.0-3.0); EOS # 0.3 (0.0-0.7); EOS % 2.6 % (1.5-5.0); GRAN # 6.89 (1.4-6.5); GRAN % 67.6 % (50.0-68.0); LYMPH % 19.3 % (22.0-35.0); MEAN CELL VOLUME 85.8 fl (80.0-105.0); MEAN CORPUSCULAR HGB CONC 31.4 g/dl (31.0-37.0); MEAN PLATELET VOLUME 10.5 fl (7.0-11.0); MONO # 1.1 (0.1-0.6); MONO % 10.4 % (1.0-6.0); RBC 4.08 10^6/uL (3.5-6.1); RED CELL DISTRIBUTION WIDTH 17.1 % (11.5-14.5); WHITE BLOOD COUNT 10.2 10^3/ul (4.5-11.0)
[2017-07-10 07:43] LABS: ALB/GLOB RATIO 1.1 (1.1-1.8); ALBUMIN 3.2 g/dL (3.0-4.8); BILIRUBIN,DIRECT 0.6 mg/dL (0.0-0.4); CALCIUM 8.5 mg/dL (8.4-10.5)
[2017-07-10] MEDS: Aspirin 325 mg EC Tablets PO SCH (08:20)
[2017-07-10] MEDS: Fluconazole IV 200mg/100 ml NS 100 MG in Premixed IV 1 EA IVPB SCH (09:58)
[2017-07-10] MEDS: Omega-3-Acid Ethyl Esters 1 GM Cap PO SCH ×2 (09:59→17:22)
[2017-07-10] MEDS ORDERED: Cholecalciferol 400 Intl Units Tab PO SCH (10:00)
[2017-07-10] MEDS: Oseltamivir 6 MG/ML PO SCH (10:47)
--- NOTE | 2017-07-10 11:08 | CP.PCM.HP ---
History of Present Illness - History of Present Illness History of Present Illness: 77 y/o with PMH of ESRD on Sunday//Sunday hemodialysis, IDDM, CVA, tobacco abuse, COPD presented to the hospital with shortness of breath and dysphagia, found to have CAP and epiglottic swelling. Patient was treated on the floors with broad spectrum antibiotics for his pneumonia. Patient was evaluated by ENT and they determined patient was not a candidate for surgery at this time. Patient clinically improved and will be transferred to the TCU for care. Patient evaluated today and has no complaints, although he does admit to occasional bowel incontinence. Denies chest pain, shortness of breath, nausea, vomiting, fever, chills. 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 No EtOH. Lives with . FHx: DM with mother and father Medications: Reviewed, as per MAR Allergies: NKDA Present on Admission - Present on Admission Any Indicators Present on Admission: No Review of Systems - Review of Systems Review of Systems: 12 point ROS as per HPI, otherwise negative Past Patient History - Infectious Disease Hx of Infectious Diseases: None - Past Medical History & Family History Past Medical History?: Yes - Past Social History Smoking Status: Former Smoker - CARDIAC Hx Cardiac Disorders: Yes Hx Hypertension: Yes - PULMONARY Hx Respiratory Disorders: Yes Hx Chronic Obstructive Pulmonary Disease (COPD): Yes (IN THE PAST) - NEUROLOGICAL Hx Neurological Disorder: No - HEENT Hx HEENT Problems: Yes Hx Cataracts: Yes Other/Comment: double vision to the left eye that is patched for saftey - RENAL Hx Chronic Kidney Disease: Yes Date of Last Dialysis Treatment: 07/03/17 - ENDOCRINE/METABOLIC Hx Endocrine Disorders: Yes Hx Diabetes Mellitus Type 2: Yes - HEMATOLOGICAL/ONCOLOGICAL Hx Blood Disorders: No - INTEGUMENTARY Hx Dermatological Problems: Yes (swollen left hand) - MUSCULOSKELETAL/RHEUMATOLOGICAL Hx Falls: No - GASTROINTESTINAL Hx Gastrointestinal Disorders: No - GENITOURINARY/GYNECOLOGICAL Hx Genitourinary Disorders: Yes Hx Reproductive Disorders: No - PSYCHIATRIC Hx Psychophysiologic Disorder: No Hx Substance Use: No - SURGICAL HISTORY Hx Cataract Extraction: Yes (RT.EYE) Hx Vascular Surgery: Yes (A/V FISTULA LEFT ARM) Hx Vascular Access Device: Yes (DIALYSIS ACCESS) - ANESTHESIA Hx Anesthesia: Yes Hx Anesthesia Reactions: No Hx Malignant Hyperthermia: No Meds Allergies/Adverse Reactions: Allergies Allergy/AdvReac Type Severity Reaction Status Date / Time No Known Allergies Allergy Verified 07/09/17 21:18 Physical Exam - Constitutional Appears: Non-toxic, No Acute Distress - Head Exam Head Exam: ATRAUMATIC, NORMAL INSPECTION, NORMOCEPHALIC - ENT Exam ENT Exam: Mucous Membranes Moist, Normal Exam - Respiratory Exam Respiratory Exam: Clear to Auscultation Bilateral, NORMAL BREATHING PATTERN. absent: Rales, Rhonchi, Wheezes - Cardiovascular Exam Cardiovascular Exam: RRR, +S1, +S2 - GI/Abdominal Exam GI & Abdominal Exam: Normal Bowel Sounds, Soft. absent: Tenderness - Extremities Exam Extremities exam: Positive for: full ROM, normal inspection, pedal edema (Trace b/l). Negative for: calf tenderness - Neurological Exam Neurological exam: Alert, Oriented x3 - Psychiatric Exam Psychiatric exam: Normal Affect, Normal Mood - Skin Skin Exam: Intact, Normal Color, Warm Results - Vital Signs Recent Vital Signs: Last Vital Signs Temp 98.6 F 07/10/17 01:55 Pulse 74 07/10/17 09:57 Resp 18 07/10/17 01:55 BP 123/59 L 07/10/17 10:00 Pulse Ox - Labs Result Diagrams: 07/10/17 06:30 07/10/17 06:30 Labs: Laboratory Results - last 24 hr 07/10/17 07/10/17 07/10/17 06:15 06:30 06:30 WBC 10.2 RBC 4.08 Hgb 11.0 L Hct 35.0 L MCV 85.8 MCH 27.0 MCHC 31.4 RDW 17.1 H Plt Count 178 MPV 10.5 Gran % 67.6 Lymph % (Auto) 19.3 L Lawrence % (Auto) 10.4 H Eos % (Auto) 2.6 Baso % (Auto) 0.1 Gran # 6.89 H Lymph # (Auto) 2.0 Lawrence # (Auto) 1.1 H Eos # (Auto) 0.3 Baso # (Auto) 0.01 Sodium 138 Potassium 4.0 Chloride 99 Carbon Dioxide 27 Anion Gap 16 BUN 70 H Creatinine 6.4 H Est GFR ( Amer) 10 Est GFR (Non-Af Amer) 8 POC Glucose (mg/dL) 170 H Random Glucose 203 H Calcium 8.5 Total Bilirubin 0.6 Direct Bilirubin 0.6 H AST 28 ALT 35 Alkaline Phosphatase 69 Total Protein 6.2 Albumin 3.2 Globulin 3.0 Albumin/Globulin Ratio 1.1 Assessment & Plan - Assessment and Plan (Free Text) Plan: 77 y/o with PMH of ESRD on Sunday//Sunday hemodialysis, IDDM, CVA, tobacco abuse, COPD presents with severe community acquired pneumonia and epiglottitis. Patient has been transferred to TCU due to deconditioning and will continue to work with physical therapy. Patient currently stable and will be continued on Doxycycline, Flucanozole, and Tamiflu. No surgical intervention as per ENT. Patient is scheduled to undergo dialysis today. He is also being followed by podiatry, who is treating his healing lower extremity wounds. Awaiting c. diff stool studies. Will continue current medical regimen and monitor closely. Bao, PGY-2
[2017-07-10] MEDS: Levalbuterol 0.63 MG/3 ML Inhal Soln UD IH SCH ×3 (11:29→19:58)
--- NOTE | 2017-07-10 12:07 | CP.PCM.CON ---
<Johnie Stoner - Last Filed: 07/10/17 13:40> History of Present Illness - History of Present Illness History of Present Illness: Podiatry Consult Note- Dr. Gleason 77 year old male with PMHx of DM, HTN, ESRD on HD, dyslipidemia, COPD, cataracts , chronic low back pain seen and evaluated for bilaterally lower extremity ulcerations. Podiatry is continuing to see patient in TCU from the floors. Patient currently denies pain to his lower extremity. Patient denies n/v/cp/f/ or chills. Patient reports improved shortness of breathe. 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 SH: former smoker, denies drinking alcohol or illicit drug use ALL: NKDA MEDS: see meds list FH: mother and father- DM Past Patient History - Infectious Disease Hx of Infectious Diseases: None - Past Medical History & Family History Past Medical History?: Yes - Past Social History Smoking Status: Former Smoker - CARDIAC Hx Cardiac Disorders: Yes Hx Hypertension: Yes - PULMONARY Hx Respiratory Disorders: Yes Hx Chronic Obstructive Pulmonary Disease (COPD): Yes (IN THE PAST) - NEUROLOGICAL Hx Neurological Disorder: No - HEENT Hx HEENT Problems: Yes Hx Cataracts: Yes Other/Comment: double vision to the left eye that is patched for saftey - RENAL Hx Chronic Kidney Disease: Yes Date of Last Dialysis Treatment: 07/03/17 - ENDOCRINE/METABOLIC Hx Endocrine Disorders: Yes Hx Diabetes Mellitus Type 2: Yes - HEMATOLOGICAL/ONCOLOGICAL Hx Blood Disorders: No - INTEGUMENTARY Hx Dermatological Problems: Yes (swollen left hand) - MUSCULOSKELETAL/RHEUMATOLOGICAL Hx Falls: No - GASTROINTESTINAL Hx Gastrointestinal Disorders: No - GENITOURINARY/GYNECOLOGICAL Hx Genitourinary Disorders: Yes Hx Reproductive Disorders: No - PSYCHIATRIC Hx Psychophysiologic Disorder: No Hx Substance Use: No - SURGICAL HISTORY Hx Cataract Extraction: Yes (RT.EYE) Hx Vascular Surgery: Yes (A/V FISTULA LEFT ARM) Hx Vascular Access Device: Yes (DIALYSIS ACCESS) - ANESTHESIA Hx Anesthesia: Yes Hx Anesthesia Reactions: No Hx Malignant Hyperthermia: No Meds Allergies/Adverse Reactions: Allergies Allergy/AdvReac Type Severity Reaction Status Date / Time No Known Allergies Allergy Verified 07/09/17 21:18 - Medications Medications: Current Medications Acetylcysteine (Acetylcysteine 20%) 4 ml IH [id number] [facility] Last Admin: 07/10/17 11:29 Dose: 4 ml Amlodipine Besylate (Norvasc) 10 mg PO DAILY [facility] PRN Reason: Protocol Last Admin: 07/10/17 10:00 Dose: 10 mg Aspirin (Ecotrin) 325 mg PO 0800 [facility] PRN Reason: Protocol Last Admin: 07/10/17 08:20 Dose: 325 mg Atorvastatin Calcium (Lipitor) 40 mg PO HS [facility] PRN Reason: Protocol Last Admin: 07/09/17 22:44 Dose: 40 mg Benzonatate (Tessalon Perles) 200 mg PO TID [facility] Last Admin: 07/10/17 10:01 Dose: 200 mg Calcium Acetate (Phoslo) 667 mg PO WM [facility] PRN Reason: Protocol Last Admin: 07/10/17 11:57 Dose: 667 mg Carvedilol (Coreg) 12.5 mg PO 0800,1800 [facility] Last Admin: 07/10/17 08:20 Dose: 12.5 mg Clotrimazole (Mycelex Kami) 10 mg MT 5XD [facility] Last Admin: 07/10/17 09:59 Dose: 10 mg Donepezil HCl (Aricept) 10 mg PO HS [facility] Last Admin: 07/09/17 22:42 Dose: 10 mg Doxycycline Hyclate (Doryx) 100 mg PO Q12 [facility] PRN Reason: Protocol Last Admin: 07/10/17 09:58 Dose: 100 mg Heparin Sodium (Porcine) (Heparin) 5,000 units SC Q8 [facility] PRN Reason: Protocol Last Admin: 07/10/17 06:29 Dose: Not Given Hydralazine HCl (Apresoline) 100 mg PO BID [facility] Last Admin: 07/10/17 09:57 Dose: 100 mg Fluconazole 100 mg/ (Miscellaneous) 50 mls @ 100 mls/hr IVPB DAILY [facility] PRN Reason: Protocol Last Admin: 07/10/17 09:58 Dose: 100 mls/hr Insulin Human Regular (Humulin R High) 0 units SC ACHS [facility] PRN Reason: Protocol Last Admin: 07/10/17 11:58 Dose: 4 units Levalbuterol HCl (Xopenex) 0.63 mg IH [id number] [facility] Last Admin: 07/10/17 11:29 Dose: 0.63 mg Losartan Potassium (Cozaar) 100 mg PO DAILY [facility] Last Admin: 07/10/17 09:58 Dose: 100 mg Memantine (Namenda) 5 mg PO DAILY [facility] Last Admin: 07/10/17 10:00 Dose: 5 mg [id number]-[id number] Ethyl Esters (Lovaza) 1 gm PO BID [facility] Last Admin: 07/10/17 09:59 Dose: 1 gm Oseltamivir Phosphate (Tamiflu Susp) 30 mg PO DAILY [facility] PRN Reason: Protocol Last Admin: 07/10/17 10:47 Dose: 30 mg Pantoprazole Sodium (Protonix Ec Tab) 40 mg PO 0600 [facility] Last Admin: 07/10/17 05:15 Dose: 40 mg Prednisone (Prednisone Tab) 20 mg PO DAILY [facility] Last Admin: 07/10/17 10:00 Dose: 20 mg Tamsulosin HCl (Flomax) 0.4 mg PO QPM [facility] Vitamin D (Vitamin D 400 Intl Units Tab) 400 intlu PO DAILY [facility] PRN Reason: Protocol Last Admin: 07/10/17 10:01 Dose: 400 intlu Physical Exam - Constitutional Appears: Well, Non-toxic, No Acute Distress - Extremities Exam Extremities exam: Negative for: calf tenderness Additional comments: VASCULAR: DP/PT pulses 1/4 bilaterally, [employer]< 3 seconds, skin temperature is WNL NEUROLOGIC: Protective sensation and gross sensation decreased ORTHOPEDIC: Negative pain on palpation to the left lower extremity DERMATOLOGICAL: Ulceration on medial aspect of the right hallux measuring approximately .5 x .5 x .1 cm with wound base mainly fibrotic, no erythema, no tunneling, no undermining, no probe to bone, no drainage, no odor noted. Tiny scab/necrotic ulceration noted to the dorsum of the 4th right digit measuring approximately .2 x .2 cm with no erythema, no tunneling, no undermining, no probe to bone, no drainage, no odor noted. Tiny scab noted to the dorsum of the 2nd left digit measuring approximately .1x .1 cm with no erythema, no tunneling, no undermining, no probe to bone, no drainage, no odor noted. - Neurological Exam Neurological exam: Alert, Oriented x3 - Psychiatric Exam Psychiatric exam: Normal Affect, Normal Mood Results - Vital Signs Recent Vital Signs: Last Vital Signs Temp 98.6 F 07/10/17 01:55 Pulse 74 07/10/17 09:57 Resp 18 07/10/17 01:55 BP 123/59 L 07/10/17 10:00 Pulse Ox - Labs Result Diagrams: 07/10/17 06:30 07/10/17 06:30 Labs: Laboratory Results - last 24 hr 07/10/17 07/10/17 07/10/17 06:15 06:30 06:30 WBC 10.2 RBC 4.08 Hgb 11.0 L Hct 35.0 L MCV 85.8 MCH 27.0 MCHC 31.4 RDW 17.1 H Plt Count 178 MPV 10.5 Gran % 67.6 Lymph % (Auto) 19.3 L [place] % (Auto) 10.4 H Eos % (Auto) 2.6 Baso % (Auto) 0.1 Gran # 6.89 H Lymph # (Auto) 2.0 [place] # (Auto) 1.1 H Eos # (Auto) 0.3 Baso # (Auto) 0.01 Sodium 138 Potassium 4.0 Chloride 99 Carbon Dioxide 27 Anion Gap 16 BUN 70 H Creatinine 6.4 H Est GFR ( Amer) 10 Est GFR (Non-Af Amer) 8 POC Glucose (mg/dL) 170 H Random Glucose 203 H Calcium 8.5 Total Bilirubin 0.6 Direct Bilirubin 0.6 H AST 28 ALT 35 Alkaline Phosphatase 69 Total Protein 6.2 Albumin 3.2 Globulin 3.0 Albumin/Globulin Ratio 1.1 Prostate Specific Ag 07/10/17 07/10/17 06:30 11:33 WBC RBC Hgb Hct MCV MCH MCHC RDW Plt Count MPV Gran % Lymph % (Auto) [place] % (Auto) Eos % (Auto) Baso % (Auto) Gran # Lymph # (Auto) [place] # (Auto) Eos # (Auto) Baso # (Auto) Sodium Potassium Chloride Carbon Dioxide Anion Gap BUN Creatinine Est GFR ( Amer) Est GFR (Non-Af Amer) POC Glucose (mg/dL) 210 H Random Glucose Calcium Total Bilirubin Direct Bilirubin AST ALT Alkaline Phosphatase Total Protein Albumin Globulin Albumin/Globulin Ratio Prostate Specific Ag 0.8 Assessment & Plan - Assessment and Plan (Free Text) Assessment: 77 year old male with PMHx of DM, HTN, ESRD on HD, dyslipidemia, COPD, cataracts , chronic low back pain for bilaterally foot wounds Plan: Patient examined and evaluated Discussed plan in detail with attending Dr. Gleason Labs, chart, vitals reviewed- absent leukocytosis, afebrile Cleansed ulceration with saline solution and optifoam applied Will continue to follow patient while in house Thank you for allowing us to take part in patient's care Upon discharge patient will continue to follow up with Dr. Maher in the wound care clinic within 1 week <Jose Gleason - Last Filed: 07/10/17 16:21> Meds - Medications Medications: Current Medications Acetylcysteine (Acetylcysteine 20%) 4 ml IH [id number] [facility] Last Admin: 07/10/17 13:22 Dose: 4 ml Amlodipine Besylate (Norvasc) 10 mg PO DAILY [facility] PRN Reason: Protocol Last Admin: 07/10/17 10:00 Dose: 10 mg Aspirin (Ecotrin) 325 mg PO 0800 [facility] PRN Reason: Protocol Last Admin: 07/10/17 08:20 Dose: 325 mg Atorvastatin Calcium (Lipitor) 40 mg PO HS [facility] PRN Reason: Protocol Last Admin: 07/09/17 22:44 Dose: 40 mg Benzonatate (Tessalon Perles) 200 mg PO TID [facility] Last Admin: 07/10/17 14:21 Dose: 200 mg Calcium Acetate (Phoslo) 667 mg PO WM [facility] PRN Reason: Protocol Last Admin: 07/10/17 11:57 Dose: 667 mg Carvedilol (Coreg) 12.5 mg PO 0800,1800 [facility] Last Admin: 07/10/17 08:20 Dose: 12.5 mg Clotrimazole (Mycelex Kami) 10 mg MT 5XD [facility] Last Admin: 07/10/17 14:21 Dose: 10 mg Donepezil HCl (Aricept) 10 mg PO HS [facility] Last Admin: 07/09/17 22:42 Dose: 10 mg Doxycycline Hyclate (Doryx) 100 mg PO Q12 [facility] PRN Reason: Protocol Last Admin: 07/10/17 09:58 Dose: 100 mg Heparin Sodium (Porcine) (Heparin) 5,000 units SC Q8 [facility] PRN Reason: Protocol Last Admin: 07/10/17 14:21 Dose: 5,000 units Hydralazine HCl (Apresoline) 100 mg PO BID [facility] Last Admin: 07/10/17 09:57 Dose: 100 mg Fluconazole 100 mg/ (Miscellaneous) 50 mls @ 100 mls/hr IVPB DAILY [facility] PRN Reason: Protocol Last Admin: 07/10/17 09:58 Dose: 100 mls/hr Insulin Human Regular (Humulin R High) 0 units SC ACHS [facility] PRN Reason: Protocol Last Admin: 07/10/17 11:58 Dose: 4 units Levalbuterol HCl (Xopenex) 0.63 mg IH [id number] [facility] Last Admin: 07/10/17 13:22 Dose: 0.63 mg Losartan Potassium (Cozaar) 100 mg PO DAILY [facility] Last Admin: 07/10/17 09:58 Dose: 100 mg Memantine (Namenda) 5 mg PO DAILY [facility] Last Admin: 07/10/17 10:00 Dose: 5 mg [id number] Ethyl Esters (Lovaza) 1 gm PO BID [facility] Last Admin: 07/10/17 09:59 Dose: 1 gm Oseltamivir Phosphate (Tamiflu Susp) 30 mg PO DAILY [facility] PRN Reason: Protocol Last Admin: 07/10/17 10:47 Dose: 30 mg Pantoprazole Sodium (Protonix Ec Tab) 40 mg PO 0600 [facility] Last Admin: 07/10/17 05:15 Dose: 40 mg Prednisone (Prednisone Tab) 20 mg PO DAILY [facility] Last Admin: 07/10/17 10:00 Dose: 20 mg Tamsulosin HCl (Flomax) 0.4 mg PO QPM [facility] Vitamin D (Vitamin D 400 Intl Units Tab) 400 intlu PO DAILY [facility] PRN Reason: Protocol Last Admin: 07/10/17 10:01 Dose: 400 intlu Results - Vital Signs Recent Vital Signs: Last Vital Signs Temp 98.6 F 07/10/17 01:55 Pulse 74 07/10/17 09:57 Resp 18 07/10/17 01:55 BP 123/59 L 07/10/17 10:00 Pulse Ox - Labs Result Diagrams: 07/10/17 06:30 07/10/17 06:30 Labs: Laboratory Results - last 24 hr 07/10/17 07/10/17 07/10/17 06:15 06:30 06:30 WBC 10.2 RBC 4.08 Hgb 11.0 L Hct 35.0 L MCV 85.8 MCH 27.0 MCHC 31.4 RDW 17.1 H Plt Count 178 MPV 10.5 Gran % 67.6 Lymph % (Auto) 19.3 L [place] % (Auto) 10.4 H Eos % (Auto) 2.6 Baso % (Auto) 0.1 Gran # 6.89 H Lymph # (Auto) 2.0 [place] # (Auto) 1.1 H Eos # (Auto) 0.3 Baso # (Auto) 0.01 Sodium 138 Potassium 4.0 Chloride 99 Carbon Dioxide 27 Anion Gap 16 BUN 70 H Creatinine 6.4 H Est GFR ( Amer) 10 Est GFR (Non-Af Amer) 8 POC Glucose (mg/dL) 170 H Random Glucose 203 H Calcium 8.5 Total Bilirubin 0.6 Direct Bilirubin 0.6 H AST 28 ALT 35 Alkaline Phosphatase 69 Total Protein 6.2 Albumin 3.2 Globulin 3.0 Albumin/Globulin Ratio 1.1 Prostate Specific Ag 07/10/17 07/10/17 06:30 11:33 WBC RBC Hgb Hct MCV MCH MCHC RDW Plt Count MPV Gran % Lymph % (Auto) [place] % (Auto) Eos % (Auto) Baso % (Auto) Gran # Lymph # (Auto) [place] # (Auto) Eos # (Auto) Baso # (Auto) Sodium Potassium Chloride Carbon Dioxide Anion Gap BUN Creatinine Est GFR ( Amer) Est GFR (Non-Af Amer) POC Glucose (mg/dL) 210 H Random Glucose Calcium Total Bilirubin Direct Bilirubin AST ALT Alkaline Phosphatase Total Protein Albumin Globulin Albumin/Globulin Ratio Prostate Specific Ag 0.8 Attending/Attestation - Attestation I have personally seen and examined this patient.: Yes I have fully participated in the care of the patient.: Yes I have reviewed all pertinent clinical information: Yes
--- NOTE | 2017-07-10 17:15 | PN ---
DATE: 07/10/2017 SUBJECTIVE: The patient is a 77-year-old male who is presently n.p.o. He is sitting at his bedside comfortably without complaints. The ears, nose and throat within normal limits. Positive gag was noted. On exam, the patient is pending a swallow study, which is not seen in chart at this time. The patient will continue to be n.p.o. pending followup swallow study. Recommendation for GI consult as well. Rodo Carrillo DO MTDDorys
[2017-07-10] MEDS ORDERED: Ergocalciferol 50,000 Intl Units Cap PO SCH (17:45)
--- NOTE | 2017-07-10 20:12 | HP ---
HISTORY OF PRESENT ILLNESS: The patient is now admitted to Transitional Care Unit. Patient was admitted to acute care service from 07/04/2017 to 07/09/2017. Patient is now admitted to TCU. Patient is seen and examined in room 313, bed 2. Please refer to the history and physical examination and discharge summary for patient's further detail. Patient is seen lying in the bed in room 313. PHYSICAL EXAMINATION: VITAL SIGNS: T-max 98.6; heart rate 69, 74; blood pressure 118/56, 156/88, 123/59; respirations 18; O2 saturation not documented. HEENT: Head examination, normocephalic, atraumatic. HEENT examination shows pink conjunctivae. Anicteric sclerae. No oropharyngeal lesion. NECK: No neck rigidity. Questionable soft carotid bruit. CHEST: Kyphosis. LUNGS: Shows occasional rhonchi in the upper lung [place] anteriorly. CARDIOVASCULAR: S1, S2, regular rhythm. Questionable systolic murmur, left sternal border, right second intercostal space, left second intercostal space. ABDOMEN: Soft. Positive bowel sounds. GENITALIA: Male. RECTAL: Deferred. EXTREMITIES: Shows left upper extremity AV fistula, positive thrill. Positive left foot toe amputation. MUSCULOSKELETAL: Shows a body mass index of 35. NEUROLOGIC: Patient is alert, awake, responsive, is able to move upper and lower extremities without assistance. Gait examination not tested. DIAGNOSTICS: On 07/10/2017, WBC 10.2, hemoglobin and hematocrit 11 and 35.0, platelet 178. Sodium 138, potassium 4.0, chloride 99, CO2 of 27, anion gap 16, BUN 70, creatinine 6.4, GFR 10, glucose 170, calcium 8.5. LFTs are normal. IMPRESSION: 1. Deconditioning. 2. Gait dysfunction. 3. Severe sepsis secondary to healthcare associated pneumonia, epiglottitis and oropharyngeal candidiasis. 4. Resolving right lower lobe healthcare-associated pneumonia. 5. Morbid obesity. 6. End-stage renal disease, hemodialysis dependent, 3 times a week via the left upper extremity arteriovenous fistula. 7. Obesity with elevated body mass index of 35. 8. Sinus bradycardia. 9. Hypertension. 10. Anemia. 11. Hypoxemia. 12. Insulin requiring diabetes mellitus. 13. Secondary hyperparathyroidism. 14. Dementia. 15. Prostatic hypertrophy. 16. Hyperlipidemia. 17. Hypertriglyceridemia. 18. Hypovitaminosis D. CURRENT CONSULTATIONS: 1. Infectious Disease. 2. Nephrology. 3. Cardiology. 4. Podiatry with diabetic education. PLAN: At this time, patient is admitted to Transitional Care Unit. At this time, patient is to be resumed on 1. Mucomyst 20% 4 mL q. 6 hours. 2. Hydralazine 100 mg twice a day. 3. Aricept 10 mg at bedtime. 4. Coreg 12.5 twice a day. 5. Cozaar 100 mg daily. 6. Diflucan 200 mg IV daily. 7. Doxycycline 100 mg p.o. q. 12. 8. Aspirin 325 daily. 9. Flomax 0.4 mg daily. 10. Heparin 5000 subcu q. 8. 11. Regular insulin high-dose sliding scale coverage before meals and at bedtime. 12. Lipitor 40 mg daily. 13. Lovaza 1 g twice a day. 14. Mycelex Kami 10 mg 3 five times a day. 15. Namenda 5 mg daily. 16. Norvasc 10 mg daily. 17. PhosLo 667 mg with meals. 18. Prednisone 20 mg daily. 19. Protonix 40 mg daily. 20. Tamiflu suspension 30 mg daily. 21. Tessalon Perles 200 three times a day. 22. Vitamin D 400 International Unit daily. 23. Xopenex nebulizer 0.63 mg round the clock. Patient is to be continued on the above therapeutic intervention with physical therapy, occupational therapy, ambulation therapy, gait training. Patient will be continued on TCU stay. Patient has been ordered out of bed to chair. Physical therapy, Occupational therapy ordered. Dictated and electronically signed, not read. Oleg Whitman MD
--- NOTE | 2017-07-10 22:22 | PN ---
DATE: SUBJECTIVE: The patient is currently seen in the TCU. He is currently sitting up in a chair, eating dinner. He appears to be in no acute distress. The patient is scheduled for dialysis tomorrow. He is on a Sunday, Sunday, Sunday dialysis schedule. The [place] [facility] [facility]. MEDICATIONS: Medication list reviewed. The patient is currently on acetylcysteine, Apresoline, Aricept, Coreg, losartan, doxycycline, Ecotrin, Flomax, fluconazole, subcutaneous heparin, insulin, Lipitor, Lovaza, Mycelex Kami, Namenda, Norvasc, PhosLo, prednisone, Protonix, Tamiflu, Tessalon Perles, vitamin D, and Xopenex. PHYSICAL EXAMINATION: VITAL SIGNS: Blood pressure is 103/59, temperature 98.9, respiratory rate is 20 with a pulse of 59, pulse ox is 94%. HEENT: Shows him to be normocephalic, atraumatic. Conjunctivae are pink. Sclerae are nonicteric. NECK: Supple. No neck vein distention. CHEST: Clear to auscultation and percussion. No rales, rhonchi, or wheezing. CARDIOVASCULAR: Shows a regular rate and rhythm without audible murmurs, rubs, or gallops. ABDOMEN: Soft. Bowel sounds normal. Mild obesity. No rebound or guarding. EXTREMITIES: Show no lower extremity edema. No cyanosis or clubbing. Positive left upper extremity AV fistula. LABORATORY DATA: CBC showed a white blood cell count of 10.2, hemoglobin of 11.0 with a platelet count of 178,000. Chemistries today showed normal electrolytes, BUN 70 with a creatinine of 6.4, glucose is 203. Calcium is 8.5. No phosphorus available for comment. PSA is 0.8. Vitamin D 25-hydroxy level is low at 17.2. ASSESSMENT: 1. End-stage renal disease. The patient will continue three times a week dialysis as per schedule. The patient is scheduled for dialysis tomorrow morning. 2. Right lower lobe pneumonia. The patient is completing a course of antibiotic therapy. 3. Status post congestive heart failure. The patient appears to be euvolemic. No edema and chest exam is normal. 4. History of hypertension. Blood pressure controlled on present medication. 5. History of yhl-umhgtvy-atzygvozb diabetes mellitus, currently on insulin. 6. Past history of a cerebrovascular accident. 7. History of dementia, currently on medications. 8. History of secondary hyperparathyroidism with vitamin D deficiency. The patient will continue binder therapy. We will check a phosphorus level with dialysis tomorrow and the patient was started on ergocalciferol 50,000 units a week. PLAN: 1. Hemodialysis tomorrow as per schedule. 2. Continue antibiotic therapy. 3. Continue to monitor glucose in the TCU. 4. Continue rehabilitation in the TCU. The patient anticipates being in the TCU for another week. Dustin Thomas MD MTDD
[2017-07-11] MEDS: Acetylcysteine 20% Inhal Soln (4ml) IH SCH ×4 (01:29→21:00)
[2017-07-11] MEDS: Levalbuterol 0.63 MG/3 ML Inhal Soln UD IH SCH ×4 (01:29→21:00)
--- NOTE | 2017-07-11 02:27 | CON ---
DATE: 07/10/2017 LOCATION: The patient is seen in room 313. CHIEF COMPLAINT: Weakness for several days. HISTORY OF PRESENT ILLNESS: This is a 77-year-old male with a history of end-stage renal disease on hemodialysis, diabetes mellitus, hypertension, morbid obesity with a BMI of 41, COPD, history of chronic low back pain and history of cataract admitted to the Acute Care with severe sepsis with healthcare-associated pneumonia as well as epiglottitis. He has been treated on Zyvox, meropenem, doxycycline, Diflucan, today is day #7, transferred to Transitional Care. PAST MEDICAL HISTORY: Significant for diabetes, hypertension, COPD, cataracts, end-stage renal disease on hemodialysis, morbid obesity with a BMI of 41 and chronic obstructive lung disease. PAST SURGICAL HISTORY: Significant for right eye surgery, lumbar disk surgery, dialysis catheter access, vascular access. ALLERGIES: PATIENT HAS NO KNOWN ALLERGIES. MEDICATIONS: Reviewed which include Coreg, calcium, atorvastatin, aspirin, amlodipine, Flomax, omega-3, losartan, insulin, and hydralazine. REVIEW OF SYSTEMS: Reveals the patient has no fevers or chills. No nausea or vomiting. No chest pain. He is in room 313 comfortably. PHYSICAL EXAMINATION: GENERAL: Patient is seen earlier this morning in bed in no acute distress. VITAL SIGNS: Temperature of 98, blood pressure is 150/60, respiratory rate of 18, heart rate of 69. HEENT: Unremarkable. NECK: Supple. LUNGS: Have decreased breath sounds. HEART: Normal S1, S2. ABDOMEN: Soft. LABORATORY DATA: Reveals white count of 10,000, hemoglobin of 11, platelets of 178, coagulation is noted. Chemistry reveals the patient has a BUN of 70, creatinine of 6.4, PSA is 0.8, procalcitonin is 1.51. Serology reveals influenza is negative. Urine for Legionella antigen is negative. Microbiology reveals blood cultures are negative and MRSA is not detected. Flu cultures no Salmonella, no Shigella, no Campylobacter. Sputum cultures, normal oral wilfrid. Nasal MRSA is not detected. Blood cultures have been negative. ASSESSMENT AND PLAN: A 77-year-old male with end-stage renal disease on hemodialysis, diabetes, hypertension, morbid obesity with a BMI of 41, chronic obstructive lung disease, chronic low back pain, cataract, admitted to the Acute Care with severe sepsis, healthcare-associated pneumonia, epiglottitis and currently on Diflucan, doxycycline, prednisone, Tamiflu. Had completed seven days, today is day #7, had completed meropenem and Zyvox. Can discontinue doxycycline after today's last dose and the Diflucan. Patient had a chest x-ray yesterday, resolution of right lower lobe infiltrate, had an elevated procalcitonin and today's creatinine of 6.4. We will discontinue Diflucan and doxycycline after today's last dose. Review of the Tamiflu revealed the patient to have received it on 07/04, 07/05, and restarted on 07/10. We will follow with you. Long Lance MD
[2017-07-11] MEDS: Pantoprazole 40 mg EC Tab PO SCH (06:21)
[2017-07-11] MEDS: Insulin Reg-HIGH-Coverage SC SCH ×4 (06:45→22:57)
[2017-07-11] MEDS: Aspirin 325 mg EC Tablets PO SCH (08:27)
[2017-07-11] MEDS: Fluconazole IV 200mg/100 ml NS 100 MG in Premixed IV 1 EA IVPB SCH (11:02)
[2017-07-11] MEDS: Omega-3-Acid Ethyl Esters 1 GM Cap PO SCH ×2 (11:03→17:16)
[2017-07-11 12:02] LABS: BASO # 0.01 K/mm3 (0.0-2.0); BASO % 0.1 % (0.0-3.0); EOS # 0.1 (0.0-0.7); EOS % 1.6 % (1.5-5.0); GRAN # 4.85 (1.4-6.5); GRAN % 66.7 % (50.0-68.0); HEMOGLOBIN 10.4 g/dL (14.0-18.0); LYMPH # 1.7 (1.2-3.4); LYMPH % 22.9 % (22.0-35.0); MEAN CELL VOLUME 83.9 fl (80.0-105.0); MEAN CORPUSCULAR HEMOGLOBIN 27.4 pg (25.0-35.0); MEAN CORPUSCULAR HGB CONC 32.6 g/dl (31.0-37.0); MEAN PLATELET VOLUME 10.4 fl (7.0-11.0); MONO # 0.6 (0.1-0.6); MONO % 8.7 % (1.0-6.0); RBC 3.8 10^6/uL (3.5-6.1); WHITE BLOOD COUNT 7.3 10^3/ul (4.5-11.0)
[2017-07-11] MEDS: Oseltamivir 6 MG/ML PO SCH (12:10)
[2017-07-11 12:43] LABS: ALB/GLOB RATIO 1.1 (1.1-1.8); ALBUMIN 3.1 g/dL (3.0-4.8); CALCIUM 8.5 mg/dL (8.4-10.5)
--- NOTE | 2017-07-11 13:14 | PN ---
DATE: 07/11/2017 SUBJECTIVE: The patient is seen sitting in chair. He is awake. He is alert. He is comfortable. He does not appear to be in any kind of distress. PHYSICAL EXAMINATION: VITAL SIGNS: Blood pressure 132/51, heart rate 60, respiratory rate 20, temperature 98.9. HEENT: Normocephalic, atraumatic. NECK: Supple, no JVD. LUNGS: Bilateral equal air entry, no rales. CARDIAC: S1 and S2, regular rate and rhythm, no murmur, no rub. ABDOMEN: Obese, distended, soft, nontender, bowel sounds present. EXTREMITIES: No lower extremity edema. MEDICATIONS: List reviewed. ASSESSMENT: 1. Non-insulin dependent diabetes mellitus. 2. Hypertension. 3. End-stage renal disease. 4. Status post right lower lobe pneumonia. 5. Anemia of chronic kidney disease. PLAN: 1. Dialysis today. 2. Continue antihypertensives. 3. Monitor fingersticks and maintain euglycemia. 4. Physical therapy. Yadira Fox MD
--- NOTE | 2017-07-11 13:40 | PN ---
DATE: 07/11/2017 SUBJECTIVE: The patient was seen lying in the bed again in room 313, bed 1. The patient was made to sit up. Overnight nurse's notes were reviewed. The patient slept without any adverse events documented. PHYSICAL EXAMINATION: VITAL SIGNS: T-max 98.9; heart rate 59, 60, 74; blood pressure 132/51; respiration 20; O2 sat 94% on room air. HEENT: Head examination normocephalic, atraumatic. HEENT examination shows pinkish conjunctivae. Anicteric sclerae. No oropharyngeal lesion. No neck rigidity. Questionable soft carotid bruit. CHEST: Kyphosis. LUNGS: Shows occasional rhonchi, upper lung quezada. CARDIOVASCULAR: S1, S2. Regular rhythm. Positive systolic murmur, left sternal border, right second intercostal space, right second intercostal space. LUNGS: Shows positive rhonchi. Upper lung quezada. ABDOMEN: Soft. Positive bowel sounds. No hepatosplenomegaly noted. No guarding. No rigidity. No rebound tenderness. GENITALIA: Male. RECTAL: Deferred. EXTREMITY: Shows positive left upper extremity AV fistula, positive thrill. Lower extremity shows no pitting edema, no calf tenderness, no Homans' sign. MUSCULOSKELETAL: Shows a body weight of 223. BMI of 35. NEUROLOGIC: The patient is alert, awake, responsive. Is able to sit up from the lying position and stand up from the sitting position. DIAGNOSTICS: From 07/10/2017 reviewed. Fingerstick blood sugar 226, 318, 210. IMPRESSION AND PLAN: 1. Deconditioning. 2. Gait dysfunction. 3. Hypertension. 4. Bradycardia. 5. Normocytic anemia. 6. Status post bilevel positive airway pressure requiring respiratory failure with hypoxemia. 7. Healthcare versus community-acquired multilobar pneumonia. 8. Hypertension. 9. Normocytic anemia. 10. Insulin-requiring diabetes mellitus. 11. End-stage renal disease, hemodialysis dependent 3 times a week via the left upper extremity fistula. 12. Hypovitaminosis D. 13. History of dementia. 14. Secondary hyperparathyroidism. 15. End-stage renal disease, hemodialysis dependent. 16. Dementia. 17. Secondary hyperparathyroidism. 18. Hypovitaminosis D. 19. Severe sepsis. 20. Healthcare-associated pneumonia and epiglottitis. 21. Oral candidiasis. 22. Prostatic hypertrophy. 23. Hyperlipidemia. 24. Triglyceridemia. 25. Dementia. 26. Hypertension. Plan at this time, the patient is to be continued on above therapeutic intervention. The patient will be continued on TCU stay with physical therapy, occupational therapy, ambulation therapy, gait training. CURRENT CONSULTATION: 1. Infectious Disease. 2. Nephrology. 3. Cardiology. 4. Podiatry. The patient is on following medications: 1. Mucomyst nebulizer 20% 4 mL q. 6 hours. 2. Hydralazine 100 mg twice a day. 3. Aricept 10 mg at bedtime. 4. Coreg 12.5 twice a day. 5. Cozaar 100 mg daily. 6. Diflucan 200 mg IV daily. 7. Doxycycline 100 mg p.o. q. 12. 8. Drisdol 50,000 units weekly. 9. Ecotrin 325 mg daily. 10. Flomax 0.4 mg daily. 11. Heparin 5000 units subcu q. 8. 12. Humulin R high-dose sliding scale coverage before meals and at bedtime. 13. Lipitor 40 mg at bedtime. 14. Lovaza 1 g twice a day. 15. Mycelex Kami is 10 mg 5 times a day. 16. Namenda 5 mg daily. 17. Norvasc 10 mg daily. 18. PhosLo 667 mg with meals. 19. Prednisone 20 mg daily. 20. Protonix 40 mg daily. 21. Tamiflu 30 mg daily. 22. Tessalon Perles 200 three times a day. 23. Xopenex 0.63 mg every 6 hours. Chest PT q. 6 hours. Oxygen 2 L continuous. Consistent carbohydrate diet. Out of bed, fingerstick blood sugar, RAIZA stockings, SCDs, occupational therapy, physical therapy. Dictated and electronically signed, not read. Oleg Whitman MD
[2017-07-11] MEDS ORDERED: Fluconazole IV 200mg/100 ml NS 100 MG in Premixed IV 1 EA IVPB SCH (22:00)
--- NOTE | 2017-07-12 01:27 | PN ---
DATE: SUBJECTIVE: The patient is seen in bed, in no acute distress, nontoxic. Patient was seen early this morning in room 313. PHYSICAL EXAMINATION: VITAL SIGNS: Temperature is 97, blood pressure is 118/50, respiratory rate of 16. HEENT: Unremarkable. NECK: Supple. LUNGS: Have decreased breath sounds. HEART: Normal S1 and S2. ABDOMEN: Soft. LABORATORY DATA: Reveals the patient's white count of 7.3, hemoglobin of 10, BUN of 101, creatinine is 8.7. ASSESSMENT AND PLAN: A 77-year-old male with end-stage renal disease, on hemodialysis, diabetes, hypertension, morbid obesity, body mass index of 41, chronic obstructive lung disease, chronic low back pain, cataract, admitted to acute care with severe sepsis, healthcare-associated pneumonia, epiglottitis; currently on Diflucan, doxycycline, prednisone, Tamiflu; had completed 7 days of meropenem and Zyvox, and on the 7th day of doxycycline and Diflucan. We will discontinue both and discontinue the intravenous fluconazole fluconazole intravenously and p.o. is the same, just patient needs to be restarted p.o. Long Lance MD
[2017-07-12] MEDS: Acetylcysteine 20% Inhal Soln (4ml) IH SCH ×4 (01:51→20:31)
[2017-07-12] MEDS: Levalbuterol 0.63 MG/3 ML Inhal Soln UD IH SCH ×4 (01:51→20:31)
[2017-07-12] MEDS: Pantoprazole 40 mg EC Tab PO SCH (05:58)
[2017-07-12] MEDS: Insulin Reg-HIGH-Coverage SC SCH ×4 (06:50→21:19)
[2017-07-12] MEDS: Aspirin 325 mg EC Tablets PO SCH (08:38)
[2017-07-12] MEDS: Omega-3-Acid Ethyl Esters 1 GM Cap PO SCH ×2 (09:26→17:37)
[2017-07-12] MEDS: Oseltamivir 6 MG/ML PO SCH (09:26)
--- NOTE | 2017-07-12 11:18 | CP.PCM.PN ---
Subjective - Date & Time of Evaluation Date of Evaluation: 07/12/17 Time of Evaluation: 09:00 - Subjective Subjective: Medicine Note for Dr. Whitman Patient seen and examined at bedside. No acute event overnight. Patient states he is breathing much better. He is tolerating diet. He is having BMs. Denies fever/chills, chest pain, SOB, abdominal pain, nausea/vomiting, diarrhea. Objective - Vital Signs/Intake and Output Vital Signs (last 24 hours): Temp Pulse Resp BP Pulse Ox 97.9 F 56 L 20 127/57 L 93 L 07/11/17 16:00 07/12/17 09:24 07/11/17 16:00 07/12/17 09:26 07/11/17 16:00 Intake and Output: 07/12/17 07/12/17 06:59 18:59 Intake Total 320 Output Total 450 Balance -130 - Medications Medications: Current Medications Acetylcysteine (Acetylcysteine 20%) 4 ml IH [id number] [facility] Last Admin: 07/12/17 07:08 Dose: 4 ml Amlodipine Besylate (Norvasc) 10 mg PO DAILY [facility] PRN Reason: Protocol Last Admin: 07/12/17 09:26 Dose: 10 mg Aspirin (Ecotrin) 325 mg PO 0800 [facility] PRN Reason: Protocol Last Admin: 07/12/17 08:38 Dose: 325 mg Atorvastatin Calcium (Lipitor) 40 mg PO HS [facility] PRN Reason: Protocol Last Admin: 07/11/17 21:52 Dose: 40 mg Benzonatate (Tessalon Perles) 200 mg PO TID [facility] Last Admin: 07/12/17 09:27 Dose: 200 mg Calcium Acetate (Phoslo) 667 mg PO WM [facility] PRN Reason: Protocol Last Admin: 07/12/17 08:38 Dose: 667 mg Carvedilol (Coreg) 12.5 mg PO 0800,1800 [facility] Last Admin: 07/12/17 08:38 Dose: 12.5 mg Clotrimazole (Mycelex Kami) 10 mg MT 5XD [facility] Last Admin: 07/12/17 09:26 Dose: 10 mg Donepezil HCl (Aricept) 10 mg PO HS [facility] Last Admin: 07/11/17 21:53 Dose: 10 mg Ergocalciferol (Drisdol 50,000 Intl Units Cap) 1 cap PO Q7D [facility] Heparin Sodium (Porcine) (Heparin) 5,000 units SC Q8 [facility] PRN Reason: Protocol Last Admin: 07/12/17 05:58 Dose: 5,000 units Hydralazine HCl (Apresoline) 100 mg PO BID [facility] Last Admin: 07/12/17 09:24 Dose: 100 mg Insulin Human NPH (Humulin N) 5 units SC ACB [facility] Insulin Human NPH (Humulin N) 5 units SC DAILY@1745 [facility] Insulin Human Regular (Humulin R High) 0 units SC ACHS [facility] PRN Reason: Protocol Last Admin: 07/12/17 06:50 Dose: 7 units Levalbuterol HCl (Xopenex) 0.63 mg IH [id number] [facility] Last Admin: 07/12/17 07:08 Dose: 0.63 mg Losartan Potassium (Cozaar) 100 mg PO DAILY [facility] Last Admin: 07/12/17 09:25 Dose: 100 mg Memantine (Namenda) 5 mg PO DAILY [facility] Last Admin: 07/12/17 09:26 Dose: 5 mg Enzkq-7-[id number] Ethyl Esters (Lovaza) 1 gm PO BID [facility] Last Admin: 07/12/17 09:26 Dose: 1 gm Oseltamivir Phosphate (Tamiflu Susp) 30 mg PO DAILY [facility] PRN Reason: Protocol Last Admin: 07/12/17 09:26 Dose: 30 mg Pantoprazole Sodium (Protonix Ec Tab) 40 mg PO 0600 [facility] Last Admin: 07/12/17 05:58 Dose: 40 mg Prednisone (Prednisone Tab) 10 mg PO 0800 [facility] Tamsulosin HCl (Flomax) 0.4 mg PO QPM [facility] Last Admin: 07/11/17 17:16 Dose: 0.4 mg - Labs Labs: 07/11/17 11:40 07/11/17 11:40 - Constitutional Appears: No Acute Distress - Head Exam Head Exam: ATRAUMATIC, NORMOCEPHALIC - Eye Exam Eye Exam: Normal appearance - ENT Exam ENT Exam: Mucous Membranes Moist - Respiratory Exam Respiratory Exam: Decreased Breath Sounds (upper lung field). absent: Accessory Muscle Use, Respiratory Distress - Cardiovascular Exam Cardiovascular Exam: REGULAR RHYTHM, +S1, +S2 - GI/Abdominal Exam GI & Abdominal Exam: Distended, Soft. absent: Firm, Guarding, Rigid, Tenderness , Rebound - Extremities Exam Extremities Exam: Normal Capillary Refill - Neurological Exam Neurological Exam: Alert, Awake, CN II-XII Intact - Psychiatric Exam Psychiatric exam: Normal Affect, Normal Mood - Skin Skin Exam: Dry, Intact, Normal Color, Warm Assessment and Plan - Assessment and Plan (Free Text) Plan: 77 M with PMH of ESRD on HD Sunday//Sunday, IDDM, CVA, tobacco abuse , COPD presents with severe community acquired pneumonia and epiglottitis. Patient is in TCU due to deconditioning. Continue physical therapy. Patient currently stable and will be continued on Doxycycline, Flucanozole, and Tamiflu. No surgical intervention as per ENT. Dialysis as per Nephro. Followed by podiatry for healing lower extremity wounds. Awaiting c. diff stool studies.
--- NOTE | 2017-07-12 13:46 | PN ---
DATE: 07/12/2017 SUBJECTIVE: The patient is seen in room 313, bed 1. The patient is seen again lying in the bed. The patient was again encouraged to be out of bed to chair and be active, but the patient continues to be lying in the bed in the morning. PHYSICAL EXAMINATION: VITAL SIGNS: T-max 98.9-97.9; pulse 56, 56, 64, 81; blood pressure 127/57, 118/50; respiration is 20-18; O2 sat is 93%, 96%. HEENT: Head examination normocephalic, atraumatic. HEENT examination shows pinkish pale conjunctivae. Anicteric sclerae. No oropharyngeal lesion. No neck rigidity. CHEST: Kyphosis. LUNGS: Shows positive rhonchi, upper lung quezada bilaterally. Anteriorly. CARDIOVASCULAR: S1, S2. Regular rhythm. Positive systolic murmur, left sternal border, left second intercostal space. ABDOMEN: Soft. Positive bowel sounds. No hepatosplenomegaly noted. No guarding. No rigidity. No rebound tenderness. GENITALIA: Male. RECTAL: Deferred. EXTREMITY: Shows positive left upper extremity fistula, positive thrill. Lower extremity shows no pitting edema. No calf tenderness. No Homans' sign. NEUROLOGIC: The patient is alert, awake, responsive. Cranial nerves II through XII grossly intact. Gait examination is not tested. VASCULAR: Shows palpable pulses of the lower extremity. DIAGNOSTICS: On 07/11/2017, WBC 7.3, hemoglobin and hematocrit 10.4 and 32, platelets 148. Normal differential. Sodium 136, potassium 4.0, chloride 96, CO2 of 22, anion gap 22, BUN 101, creatinine 8.7, GFR 6, fingerstick blood sugar 273. Phosphorus 3.6, magnesium 2.3. IMPRESSION AND PLAN: 1. Deconditioning. 2. Gait dysfunction. 3. Questionable poor compliance. 4. Hypertension. 5. Asymptomatic bradycardia. 6. Normocytic anemia. 7. Anemia of chronic kidney disease. 8. End-stage renal disease, hemodialysis dependent. 9. Insulin-requiring diabetes mellitus. 10. Uncontrolled insulin-requiring diabetes mellitus with hyperglycemia. 11. Hyperphosphatemia. 12. Hypovitaminosis D. 13. Severe sepsis with multilobar healthcare-associated pneumonia with epiglottitis and oropharyngeal candidiasis. 14. Dementia. 15. Prostatic hypertrophy. 16. Hypertriglyceridemia. 17. Oropharyngeal candidiasis. 18. Hyperphosphatemia. Plan at this time, the patient has been ordered physical therapy, occupational therapy, ambulation therapy, gait training, out of bed to chair. The patient has current consultation; 1. Infectious Disease. 2. Nephrology. 3. Cardiology. 4. Podiatry. CURRENT MEDICATIONS: 1. Mucomyst nebulizer 20% 4 mL q. 6 hours. 2. Hydralazine 100 mg twice a day. 3. Aricept 10 mg at bedtime. 4. Coreg 12.5 mg twice a day. 5. Losartan/Cozaar 100 mg daily. 6. Drisdol 50,000 units weekly. 7. Aspirin 325 mg p.o. daily. 8. Flomax 0.4 mg daily. 9. Heparin 5000 subcu q. 8. 10. Regular insulin high-dose sliding scale coverage before meals and at bedtime. 11. Lipitor 40 mg at bedtime. 12. Lovaza 1 g twice a day. 13. Mycelex Troches 10 mg five times a day. 14. Namenda 5 mg daily. 15. Norvasc 10 mg daily. 16. PhosLo 667 mg with meals. 17. Prednisone 20 mg daily, which will be decreased. Prednisone is decreased to 10 mg daily slow tapering. 18. The patient is on Protonix 40 mg daily. 19. Tamiflu 30 mg daily. 20. Tessalon Perles 200 three times a day. 21. Xopenex nebulizer 0.63 mg every 6 hours. 22. Oxygen 2 L continuous nasal cannula, humidified continuous. The patient's fingerstick blood sugar has been averaging and running around mid to high 200s. The patient will be added basal insulin in addition to bolus insulin. The patient will be ordered basal insulin in addition to the bolus insulin. The patient will be continued on fingerstick blood sugar. The patient's case is also referred to special educator. special educator evaluation is still missing. The patient will be continued on the above therapeutic intervention and close followup. At present, the patient is to be continued on Transitional Care Unit with continuation of dialysis, continuation of physical therapy, occupational therapy, ambulation therapy, gait training. Dictated and electronically signed, not read. Oleg J Carlos, MD [facility] # [id number]
--- NOTE | 2017-07-12 13:58 | PN ---
DATE: SUBJECTIVE: The patient is currently seen sitting up in chair in the TCU, eating lunch. He appears to be in no acute distress. He remains on a Sunday, Sunday, Sunday dialysis schedule. The patient chronically dialyzes at [facility] on [facility]. MEDICATIONS: Medication list reviewed. The patient is currently on acetylcysteine, Apresoline, Aricept, Coreg, Cozaar, vitamin D, Ecotrin, Flomax, heparin, insulin, Lipitor, Lovaza, Mycelex Kami, Namenda, Norvasc, PhosLo, prednisone, Protonix, Tamiflu, Tessalon Perles and Xopenex. OBJECTIVE: VITAL SIGNS: Blood pressure 114/50, temperature 97.4, respiratory rate 18 with a pulse of 67. HEENT: Exam shows him to be normocephalic, atraumatic. Conjunctivae are pink. Sclerae are nonicteric. NECK: Supple. No neck vein distention. CHEST: Clear to auscultation and percussion. No rales, rhonchi or wheezing. CARDIOVASCULAR: Regular rate and rhythm without audible murmurs, rubs or gallops. ABDOMEN: Soft. Bowel sounds normal. Mild obesity. No rebound or guarding. EXTREMITIES: Show no lower extremity edema with the feet on the floor sitting in a chair. No cyanosis or clubbing. He does have a left upper extremity AV fistula. Positive thrill. Positive bruit. LABORATORY DATA AND IMAGING: Labs were done yesterday predialysis. CBC: White blood cell count 7.3, hemoglobin 10.4 with a platelet count of 148,000. Chemistries were acceptable. BUN 101 and creatinine 8.7, consistent with end-stage renal disease. Glucose was 284. Calcium was 8.5 with a phosphorus of 6.6. Magnesium is 2.3. Liver enzymes are normal. ASSESSMENT: 1. End-stage renal disease. The patient will continue Sunday, Sunday, Sunday dialysis. He will upon discharge transition back to [facility] on [facility]. 2. Right lower lobe pneumonia. The patient has completed a course of antibiotic therapy. 3. Status post congestive heart failure. He appears to be euvolemic. No edema in his lower extremity and chest exam is normal. 4. History of hypertension. Blood pressure is controlled on present medical therapy. 5. History of [id number]-[id number] diabetes mellitus, currently on insulin with plus/minus acceptable blood pressure control. 6. Past history of a cerebrovascular accident, currently stable. 7. History of dementia, on medication. 8. History of secondary hyperparathyroidism with vitamin D deficiency. The patient will continue on ergocalciferol and I will increase his PhosLo to 2 tablets with each meal because his phosphorus level was 6.6 on 3 tablets a day. PLAN: 1. Hemodialysis Sunday, Sunday and Sunday. 2. Completed a course of antibiotic therapy for pneumonia. 3. Continue rehabilitation and exercise in the TCU. 4. Continue to monitor glucose and adjust medications accordingly. 5. Increase PhosLo and continue all dietary restrictions. Dustin Thomas MD
--- NOTE | 2017-07-12 14:09 | CP.PCM.PN ---
Subjective - Date & Time of Evaluation Date of Evaluation: 07/12/17 Time of Evaluation: 12:30 - Subjective Subjective: Podiatry Progress Note- Dr. Maher 77 y.o male seen and evaluated for bilateral lower extremity ulcerations. Patient is seen resting comfortably in bed, in NAD, and AA0x3. Patient denies acute overnight events. Denies n/v/sob/cp/chills or f. Objective - Vital Signs/Intake and Output Vital Signs (last 24 hours): Temp Pulse Resp BP Pulse Ox 97.4 F L 67 18 114/50 L 93 L 07/12/17 11:42 07/12/17 11:42 07/12/17 11:42 07/12/17 11:42 07/12/17 11:42 Intake and Output: 07/12/17 07/12/17 06:59 18:59 Intake Total 320 Output Total 450 Balance -130 - Medications Medications: Current Medications Acetylcysteine (Acetylcysteine 20%) 4 ml IH [id number] [facility] Last Admin: 07/12/17 13:17 Dose: 4 ml Amlodipine Besylate (Norvasc) 10 mg PO DAILY [facility] PRN Reason: Protocol Last Admin: 07/12/17 09:26 Dose: 10 mg Aspirin (Ecotrin) 325 mg PO 0800 [facility] PRN Reason: Protocol Last Admin: 07/12/17 08:38 Dose: 325 mg Atorvastatin Calcium (Lipitor) 40 mg PO HS [facility] PRN Reason: Protocol Last Admin: 07/11/17 21:52 Dose: 40 mg Benzonatate (Tessalon Perles) 200 mg PO TID [facility] Last Admin: 07/12/17 13:52 Dose: 200 mg Calcium Acetate (Phoslo) 1,334 mg PO WM [facility] PRN Reason: Protocol Carvedilol (Coreg) 12.5 mg PO 0800,1800 [facility] Last Admin: 07/12/17 08:38 Dose: 12.5 mg Clotrimazole (Mycelex Kami) 10 mg MT 5XD [facility] Last Admin: 07/12/17 13:52 Dose: 10 mg Donepezil HCl (Aricept) 10 mg PO HS [facility] Last Admin: 07/11/17 21:53 Dose: 10 mg Ergocalciferol (Drisdol 50,000 Intl Units Cap) 1 cap PO Q7D [facility] Heparin Sodium (Porcine) (Heparin) 5,000 units SC Q8 [facility] PRN Reason: Protocol Last Admin: 07/12/17 13:52 Dose: 5,000 units Hydralazine HCl (Apresoline) 100 mg PO BID [facility] Last Admin: 07/12/17 09:24 Dose: 100 mg Insulin Human NPH (Humulin N) 5 units SC ACB [facility] Insulin Human NPH (Humulin N) 5 units SC DAILY@1745 [facility] Insulin Human Regular (Humulin R High) 0 units SC ACHS [facility] PRN Reason: Protocol Last Admin: 07/12/17 12:34 Dose: 7 units Levalbuterol HCl (Xopenex) 0.63 mg IH [id number] [facility] Last Admin: 07/12/17 13:16 Dose: 0.63 mg Losartan Potassium (Cozaar) 100 mg PO DAILY [facility] Last Admin: 07/12/17 09:25 Dose: 100 mg Memantine (Namenda) 5 mg PO DAILY [facility] Last Admin: 07/12/17 09:26 Dose: 5 mg [id number] Ethyl Esters (Lovaza) 1 gm PO BID [facility] Last Admin: 07/12/17 09:26 Dose: 1 gm Oseltamivir Phosphate (Tamiflu Susp) 30 mg PO DAILY [facility] PRN Reason: Protocol Last Admin: 07/12/17 09:26 Dose: 30 mg Pantoprazole Sodium (Protonix Ec Tab) 40 mg PO 0600 [facility] Last Admin: 07/12/17 05:58 Dose: 40 mg Prednisone (Prednisone Tab) 10 mg PO 0800 [facility] Tamsulosin HCl (Flomax) 0.4 mg PO QPM [facility] Last Admin: 07/11/17 17:16 Dose: 0.4 mg - Labs Labs: 07/11/17 11:40 07/11/17 11:40 - Constitutional Appears: Well, Non-toxic, No Acute Distress - Extremities Exam Extremities Exam: absent: Calf Tenderness Additional comments: VASCULAR: DP/PT pulses 1/4 bilaterally, DAYTIME BABYSITTER< 3 seconds, skin temperature is WNL NEUROLOGIC: Protective sensation and gross sensation decreased ORTHOPEDIC: Negative pain on palpation to the left lower extremity DERMATOLOGICAL: Ulceration on medial aspect of the right hallux measuring approximately .5 x .5 x .1 cm with wound base mainly fibrotic, no erythema, no tunneling, no undermining, no probe to bone, no drainage, no odor noted. Tiny scab/necrotic ulceration noted to the dorsum of the 4th right digit measuring approximately .2 x .2 cm with no erythema, no tunneling, no undermining, no probe to bone, no drainage, no odor noted. Tiny scab noted to the dorsum of the 2nd left digit measuring approximately .1x .1 cm with no erythema, no tunneling, no undermining, no probe to bone, no drainage, no odor noted. - Psychiatric Exam Psychiatric exam: Normal Affect, Normal Mood Assessment and Plan - Assessment and Plan (Free Text) Assessment: 77 year old male with PMHx of DM, HTN, ESRD on HD, dyslipidemia, COPD, cataracts , chronic low back pain for bilaterally foot wounds Plan: Patient examined and evaluated Discussed plan in detail with attending Dr. Maher Labs, chart, vitals reviewed- absent leukocytosis, afebrile Cleansed ulceration with saline and maxosorb with optifoam applied Will order iodosorb, will use tomorrow with dressing change Will order surgical shoe Patient may WBAT in surgical shoe Will continue to follow patient while in house Thank you for allowing us to take part in patient's care Upon discharge patient will continue to follow up with Dr. Maher in the wound care clinic within 1 week
[2017-07-12] MEDS: Insulin Human NPH 1 UNITS/0.01 ML SC SCH (18:15)
--- NOTE | 2017-07-12 21:43 | PN ---
DATE: 07/12/2017 SUBJECTIVE: The patient is in bed, no fevers and chills. PHYSICAL EXAMINATION: VITAL SIGNS: On exam, temperature is 97, blood pressure is 114/50, respiratory rate of 18, heart rate of 67. HEENT: Unremarkable. NECK: Supple. LUNGS: Have decreased breath sounds. HEART: Normal S1, S2. ABDOMEN: Soft. LABORATORY EXAMINATION: Reveals a white count of 7.3, hemoglobin of 10, platelets of 148. Chemistries reveal creatinine is 8.7. Review of orders reveals the patient to be off of antibiotics and the patient is on is still on Tamiflu. ASSESSMENT AND PLAN: This is a 77-year-old male with end-stage renal disease, on hemodialysis; diabetes; hypertension; morbid obesity; BMI of 41; chronic obstructive lung disease; chronic low back pain; cataract; admitted to the acute care with the diagnoses of severe sepsis, healthcare-associated pneumonia, epiglottitis, and has completed Diflucan therapy, doxycycline therapy, currently on Tamiflu, would complete 5 days of Tamiflu. The patient's influenza serology was negative. The patient is at risk for developing new nosocomial infections. Long Lance MD
[2017-07-13] MEDS: Acetylcysteine 20% Inhal Soln (4ml) IH SCH ×4 (02:00→19:59)
[2017-07-13] MEDS: Levalbuterol 0.63 MG/3 ML Inhal Soln UD IH SCH ×4 (02:00→20:00)
[2017-07-13] MEDS: Pantoprazole 40 mg EC Tab PO SCH (05:54)
[2017-07-13] MEDS: Aspirin 325 mg EC Tablets PO SCH (08:05)
[2017-07-13] MEDS: Insulin Reg-HIGH-Coverage SC SCH ×4 (08:06→21:50)
[2017-07-13] MEDS: Insulin Human NPH 1 UNITS/0.01 ML SC SCH ×2 (08:21→18:09)
[2017-07-13] MEDS: Omega-3-Acid Ethyl Esters 1 GM Cap PO SCH ×2 (09:14→18:11)
[2017-07-13] MEDS: Oseltamivir 6 MG/ML PO SCH (12:24)
--- NOTE | 2017-07-13 12:47 | PN ---
DATE: LOCATION: The patient is in the Transitional Care Unit, [facility] in [place], room 313, bed 1. SUBJECTIVE: The patient is seen this morning, sitting up in the bed and eating his breakfast. The patient was originally admitted to the hospital with a deconditioned state. The patient has history of getting renal dialysis for chronic renal failure. The patient also has a history of hypertension, diabetes mellitus, dementia. The patient has a history of gastric disorder, osteoporosis and chronic obstructive lung disease. PHYSICAL EXAMINATION: VITAL SIGNS: This morning, the patient's pulse is 56, blood pressure is 176/55, respirations 16, the patient's O2 sat is 97% on room air. HEENT: The patient's head is normocephalic. NECK: The thyroid is not enlarged clinically. The carotid pulses are present. LUNGS: Trachea central. Breath sounds are vesicular. Right-sided crepitations heard and rhonchi. HEART: Normal sinus rhythm. ABDOMEN: Soft. Liver and spleen not palpable. HOME HEALTH ASSISTANT: The patient has no focal deficits at this time. He is able to communicate and answering questions. LABORATORY DATA: The patient's blood work, the hemoglobin is 10.4. The patient's white count is within normal limits. Chemistry: The patient's blood sugar today is 280. The patient is on insulin coverage and medication to control the diabetes and diet. MEDICATIONS: The patient's list of medication is that the patient is on multiple medications. The list consists of hydralazine 100 mg b.i.d. for blood pressure. The patient is on Aricept for dementia, Namenda for dementia, Coreg 12.5 mg b.i.d. The patient is on losartan 100 mg daily, aspirin 325 mg daily, Flomax 0.4 mg daily, heparin subcutaneous for prophylaxis, insulin coverage for diabetes. The patient is on Lipitor 40 mg daily. The patient is on amlodipine 10 mg daily, prednisone 10 mg daily, pantoprazole 40 mg daily and the patient is also getting Lovaza, which he takes for cerebrocardiac condition and his coronary heart disease. ASSESSMENT AND PLAN: He will get physical therapy. He is here for deconditioning and we will give him all his medications and all the consultants will come and see the patient regarding their speciality. Renal dialysis will be on schedule. Edel Grewal MD [facility] # [phone] KRISTI
[2017-07-13 13:29] LABS: BASO # 0.01 K/mm3 (0.0-2.0); BASO % 0.1 % (0.0-3.0); EOS # 0.1 (0.0-0.7); EOS % 0.9 % (1.5-5.0); GRAN # 6.74 (1.4-6.5); HEMOGLOBIN 10.5 g/dL (14.0-18.0); LYMPH # 1.3 (1.2-3.4); LYMPH % 15.1 % (22.0-35.0); MEAN CELL VOLUME 83.7 fl (80.0-105.0); MEAN CORPUSCULAR HEMOGLOBIN 27.2 pg (25.0-35.0); MEAN CORPUSCULAR HGB CONC 32.5 g/dl (31.0-37.0); MEAN PLATELET VOLUME 10.2 fl (7.0-11.0); MONO # 0.3 (0.1-0.6); MONO % 3.9 % (1.0-6.0); RBC 3.86 10^6/uL (3.5-6.1); RED CELL DISTRIBUTION WIDTH 17.4 % (11.5-14.5); WHITE BLOOD COUNT 8.4 10^3/ul (4.5-11.0)
[2017-07-13 13:48] LABS: ALB/GLOB RATIO 1.1 (1.1-1.8); ALBUMIN 3.2 g/dL (3.0-4.8); CALCIUM 8.2 mg/dL (8.4-10.5)
[2017-07-13] MEDS ORDERED: CADEXOMER IODINE 0.9% GEL 10G TOP ONE (14:15)
--- NOTE | 2017-07-13 16:04 | CP.PCM.PN ---
Subjective - Date & Time of Evaluation Date of Evaluation: 07/13/17 Time of Evaluation: 11:40 - Subjective Subjective: Comfortable on a chair, no SOB at rest, no fevers, not in distress. Objective - Vital Signs/Intake and Output Vital Signs (last 24 hours): Temp Pulse Resp BP Pulse Ox 98.2 F 56 L 20 176/65 H 95 07/12/17 17:21 07/13/17 08:04 07/12/17 17:21 07/13/17 09:15 07/12/17 17:21 Intake and Output: 07/13/17 07/13/17 06:59 18:59 Intake Total 420 Output Total 500 Balance -80 - Medications Medications: Current Medications Acetylcysteine (Acetylcysteine 20%) 4 ml IH [id number] [facility] Last Admin: 07/13/17 07:15 Dose: 4 ml Amlodipine Besylate (Norvasc) 10 mg PO DAILY [facility] PRN Reason: Protocol Last Admin: 07/13/17 09:15 Dose: 10 mg Aspirin (Ecotrin) 325 mg PO 0800 [facility] PRN Reason: Protocol Last Admin: 07/13/17 08:05 Dose: 325 mg Atorvastatin Calcium (Lipitor) 40 mg PO HS [facility] PRN Reason: Protocol Last Admin: 07/12/17 21:14 Dose: 40 mg Benzonatate (Tessalon Perles) 200 mg PO TID [facility] Last Admin: 07/13/17 09:15 Dose: 200 mg Cadexomer Iodine (Iodosorb) 1 gm TOP ONCE ONE Stop: 07/13/17 14:16 Calcium Acetate (Phoslo) 1,334 mg PO WM [facility] PRN Reason: Protocol Last Admin: 07/13/17 08:08 Dose: 1,334 mg Carvedilol (Coreg) 12.5 mg PO 0800,1800 [facility] Last Admin: 07/13/17 08:04 Dose: 12.5 mg Clotrimazole (Mycelex Kami) 10 mg MT 5XD [facility] Last Admin: 07/13/17 09:14 Dose: 10 mg Donepezil HCl (Aricept) 10 mg PO HS [facility] Last Admin: 07/12/17 21:14 Dose: 10 mg Ergocalciferol (Drisdol 50,000 Intl Units Cap) 1 cap PO Q7D [facility] Heparin Sodium (Porcine) (Heparin) 5,000 units SC Q8 [facility] PRN Reason: Protocol Last Admin: 07/13/17 05:54 Dose: 5,000 units Hydralazine HCl (Apresoline) 100 mg PO BID [facility] Last Admin: 07/12/17 17:35 Dose: Not Given Insulin Human NPH (Humulin N) 5 units SC ACB [facility] Last Admin: 07/13/17 08:21 Dose: 5 units Insulin Human NPH (Humulin N) 5 units SC DAILY@1745 [facility] Last Admin: 07/12/17 18:15 Dose: 5 units Insulin Human Regular (Humulin R High) 0 units SC ACHS [facility] PRN Reason: Protocol Last Admin: 07/13/17 08:06 Dose: 7 units Levalbuterol HCl (Xopenex) 0.63 mg IH [id number] [facility] Last Admin: 07/13/17 07:15 Dose: 0.63 mg Losartan Potassium (Cozaar) 100 mg PO DAILY [facility] Last Admin: 07/13/17 09:14 Dose: 100 mg Memantine (Namenda) 5 mg PO DAILY [facility] Last Admin: 07/13/17 09:14 Dose: 5 mg Bemdv-5-Dzso Ethyl Esters (Lovaza) 1 gm PO BID [facility] Last Admin: 07/13/17 09:14 Dose: 1 gm Oseltamivir Phosphate (Tamiflu Susp) 30 mg PO DAILY [facility] PRN Reason: Protocol Last Admin: 07/12/17 09:26 Dose: 30 mg Pantoprazole Sodium (Protonix Ec Tab) 40 mg PO 0600 [facility] Last Admin: 07/13/17 05:54 Dose: 40 mg Prednisone (Prednisone Tab) 10 mg PO 0800 [facility] Last Admin: 07/13/17 08:09 Dose: 10 mg Tamsulosin HCl (Flomax) 0.4 mg PO QPM [facility] Last Admin: 07/12/17 17:37 Dose: 0.4 mg - Labs Labs: 07/11/17 11:40 07/11/17 11:40 - Constitutional Appears: Chronically Ill - Head Exam Head Exam: NORMAL INSPECTION - Neck Exam Neck Exam: absent: Meningismus - Respiratory Exam Respiratory Exam: Decreased Breath Sounds - Cardiovascular Exam Cardiovascular Exam: +S1, +S2 - GI/Abdominal Exam GI & Abdominal Exam: Soft. absent: Tenderness Assessment and Plan - Assessment and Plan (Free Text) Plan: Assessment S/P severe sepsis due to healthcare-associated pneumonia as well as epiglottitis with oropahryngeal candidiasis, R/O Influenza ESRD on HD DM HTN morbid obesity with BMI 41 dyslipidemia COPD cataracts chronic low back pain Plan on Tamiflu day 4 - complete 5 days
--- NOTE | 2017-07-13 16:31 | CP.PCM.PN ---
<Johnie Stoner - Last Filed: 07/13/17 16:28> Subjective - Date & Time of Evaluation Date of Evaluation: 07/13/17 Time of Evaluation: 12:00 - Subjective Subjective: Podiatry Progress Note- Dr. Gleason 77 y.o male seen and evaluated for bilateral lower extremity ulcerations. Patient is seen resting comfortably in bed, in NAD, and AA0x3. Patient denies acute overnight events. Denies n/v/sob/cp/chills or f. Objective - Vital Signs/Intake and Output Vital Signs (last 24 hours): Temp Pulse Resp BP Pulse Ox 98.1 F 58 L 18 148/56 L 94 L 07/13/17 12:00 07/13/17 12:03 07/13/17 12:00 07/13/17 12:00 07/13/17 12:03 Intake and Output: 07/13/17 07/13/17 06:59 18:59 Intake Total 420 Output Total 500 Balance -80 - Medications Medications: Current Medications Acetylcysteine (Acetylcysteine 20%) 4 ml IH [id number] [facility] Last Admin: 07/13/17 13:10 Dose: Not Given Amlodipine Besylate (Norvasc) 10 mg PO DAILY [facility] PRN Reason: Protocol Last Admin: 07/13/17 09:15 Dose: 10 mg Aspirin (Ecotrin) 325 mg PO 0800 [facility] PRN Reason: Protocol Last Admin: 07/13/17 08:05 Dose: 325 mg Atorvastatin Calcium (Lipitor) 40 mg PO HS [facility] PRN Reason: Protocol Last Admin: 07/12/17 21:14 Dose: 40 mg Benzonatate (Tessalon Perles) 200 mg PO TID [facility] Last Admin: 07/13/17 13:43 Dose: Not Given Calcium Acetate (Phoslo) 1,334 mg PO WM [facility] PRN Reason: Protocol Last Admin: 07/13/17 13:43 Dose: Not Given Carvedilol (Coreg) 12.5 mg PO 0800,1800 [facility] Last Admin: 07/13/17 08:04 Dose: 12.5 mg Clotrimazole (Mycelex Kami) 10 mg MT 5XD [facility] Last Admin: 07/13/17 13:42 Dose: Not Given Donepezil HCl (Aricept) 10 mg PO HS [facility] Last Admin: 07/12/17 21:14 Dose: 10 mg Ergocalciferol (Drisdol 50,000 Intl Units Cap) 1 cap PO Q7D [facility] Heparin Sodium (Porcine) (Heparin) 5,000 units SC Q8 [facility] PRN Reason: Protocol Last Admin: 07/13/17 13:42 Dose: Not Given Hydralazine HCl (Apresoline) 100 mg PO BID [facility] Last Admin: 07/13/17 10:22 Dose: Not Given Insulin Human NPH (Humulin N) 5 units SC ACB [facility] Last Admin: 07/13/17 08:21 Dose: 5 units Insulin Human NPH (Humulin N) 5 units SC DAILY@1745 [facility] Last Admin: 07/12/17 18:15 Dose: 5 units Insulin Human Regular (Humulin R High) 0 units SC ACHS [facility] PRN Reason: Protocol Last Admin: 07/13/17 12:25 Dose: 7 units Levalbuterol HCl (Xopenex) 0.63 mg IH [id number] [facility] Last Admin: 07/13/17 13:10 Dose: Not Given Losartan Potassium (Cozaar) 100 mg PO DAILY [facility] Last Admin: 07/13/17 09:14 Dose: 100 mg Memantine (Namenda) 5 mg PO DAILY [facility] Last Admin: 07/13/17 09:14 Dose: 5 mg Mlhwj-5-Yqha Ethyl Esters (Lovaza) 1 gm PO BID [facility] Last Admin: 07/13/17 09:14 Dose: 1 gm Oseltamivir Phosphate (Tamiflu Susp) 30 mg PO DAILY [facility] PRN Reason: Protocol Last Admin: 07/13/17 12:24 Dose: 30 mg Pantoprazole Sodium (Protonix Ec Tab) 40 mg PO 0600 [facility] Last Admin: 07/13/17 05:54 Dose: 40 mg Prednisone (Prednisone Tab) 10 mg PO 0800 [facility] Last Admin: 07/13/17 08:09 Dose: 10 mg Tamsulosin HCl (Flomax) 0.4 mg PO QPM [facility] Last Admin: 07/12/17 17:37 Dose: 0.4 mg - Labs Labs: 07/13/17 13:26 07/13/17 13:26 - Constitutional Appears: Well, Non-toxic, No Acute Distress - Extremities Exam Extremities Exam: absent: Calf Tenderness - Neurological Exam Neurological Exam: Alert, Awake, Oriented x3 - Psychiatric Exam Psychiatric exam: Normal Affect, Normal Mood Assessment and Plan - Assessment and Plan (Free Text) Assessment: 77 year old male with PMHx of DM, HTN, ESRD on HD, dyslipidemia, COPD, cataracts , chronic low back pain for bilaterally foot wounds Plan: Patient examined and evaluated Discussed plan in detail with attending Dr. Gleason Labs, chart, vitals reviewed- absent leukocytosis, afebrile Cleansed ulceration with saline and dressed with iodosorb Patient may WBAT in surgical shoe Will continue to follow patient while in house Upon discharge patient will continue to follow up with Dr. Gleason/Nika in the wound care clinic in 1 week <Jose Gleason - Last Filed: 07/13/17 17:55> Objective - Vital Signs/Intake and Output Vital Signs (last 24 hours): Temp Pulse Resp BP Pulse Ox 98.1 F 58 L 18 148/56 L 94 L 07/13/17 12:00 07/13/17 12:03 07/13/17 12:00 07/13/17 12:00 07/13/17 12:03 Intake and Output: 07/13/17 07/13/17 06:59 18:59 Intake Total 420 Output Total 500 Balance -80 - Medications Medications: Current Medications Acetylcysteine (Acetylcysteine 20%) 4 ml IH [id number] [facility] Last Admin: 07/13/17 13:10 Dose: Not Given Amlodipine Besylate (Norvasc) 10 mg PO DAILY [facility] PRN Reason: Protocol Last Admin: 07/13/17 09:15 Dose: 10 mg Aspirin (Ecotrin) 325 mg PO 0800 [facility] PRN Reason: Protocol Last Admin: 07/13/17 08:05 Dose: 325 mg Atorvastatin Calcium (Lipitor) 40 mg PO HS [facility] PRN Reason: Protocol Last Admin: 07/12/17 21:14 Dose: 40 mg Benzonatate (Tessalon Perles) 200 mg PO TID [facility] Last Admin: 07/13/17 13:43 Dose: Not Given Calcium Acetate (Phoslo) 1,334 mg PO WM [facility] PRN Reason: Protocol Last Admin: 07/13/17 13:43 Dose: Not Given Carvedilol (Coreg) 12.5 mg PO 0800,1800 [facility] Last Admin: 07/13/17 08:04 Dose: 12.5 mg Clotrimazole (Mycelex Kami) 10 mg MT 5XD [facility] Last Admin: 07/13/17 13:42 Dose: Not Given Donepezil HCl (Aricept) 10 mg PO HS [facility] Last Admin: 07/12/17 21:14 Dose: 10 mg Ergocalciferol (Drisdol 50,000 Intl Units Cap) 1 cap PO Q7D [facility] Heparin Sodium (Porcine) (Heparin) 5,000 units SC Q8 [facility] PRN Reason: Protocol Last Admin: 07/13/17 13:42 Dose: Not Given Hydralazine HCl (Apresoline) 100 mg PO BID [facility] Last Admin: 07/13/17 10:22 Dose: Not Given Insulin Human NPH (Humulin N) 5 units SC ACB [facility] Last Admin: 07/13/17 08:21 Dose: 5 units Insulin Human NPH (Humulin N) 5 units SC DAILY@1745 [facility] Last Admin: 07/12/17 18:15 Dose: 5 units Insulin Human Regular (Humulin R High) 0 units SC ACHS [facility] PRN Reason: Protocol Last Admin: 07/13/17 12:25 Dose: 7 units Levalbuterol HCl (Xopenex) 0.63 mg IH [id number] [facility] Last Admin: 07/13/17 13:10 Dose: Not Given Losartan Potassium (Cozaar) 100 mg PO DAILY [facility] Last Admin: 07/13/17 09:14 Dose: 100 mg Memantine (Namenda) 5 mg PO DAILY [facility] Last Admin: 07/13/17 09:14 Dose: 5 mg Kwdjf-4-Woyk Ethyl Esters (Lovaza) 1 gm PO BID [facility] Last Admin: 07/13/17 09:14 Dose: 1 gm Oseltamivir Phosphate (Tamiflu Susp) 30 mg PO DAILY [facility] PRN Reason: Protocol Last Admin: 07/13/17 12:24 Dose: 30 mg Pantoprazole Sodium (Protonix Ec Tab) 40 mg PO 0600 [facility] Last Admin: 07/13/17 05:54 Dose: 40 mg Prednisone (Prednisone Tab) 10 mg PO 0800 [facility] Last Admin: 07/13/17 08:09 Dose: 10 mg Tamsulosin HCl (Flomax) 0.4 mg PO QPM [facility] Last Admin: 07/12/17 17:37 Dose: 0.4 mg - Labs Labs: 07/13/17 13:26 07/13/17 13:26 Attending/Attestation - Attestation I have personally seen and examined this patient.: Yes I have fully participated in the care of the patient.: Yes I have reviewed all pertinent clinical information, including history, physical exam and plan: Yes
[2017-07-14] MEDS: Levalbuterol 0.63 MG/3 ML Inhal Soln UD IH SCH ×4 (01:37→19:51)
[2017-07-14] MEDS: Acetylcysteine 20% Inhal Soln (4ml) IH SCH ×4 (01:37→19:51)
[2017-07-14] MEDS: Pantoprazole 40 mg EC Tab PO SCH (05:40)
[2017-07-14] MEDS: Insulin Reg-HIGH-Coverage SC SCH ×4 (06:40→21:44)
[2017-07-14] MEDS: Insulin Human NPH 1 UNITS/0.01 ML SC SCH ×2 (06:41→17:07)
[2017-07-14] MEDS: Aspirin 325 mg EC Tablets PO SCH (08:29)
--- NOTE | 2017-07-14 09:57 | CP.PCM.PN ---
<Chris Howell - Last Filed: 07/14/17 09:53> Subjective - Date & Time of Evaluation Date of Evaluation: 07/14/17 Time of Evaluation: 09:53 - Subjective Subjective: Podiatry Progress Note- Dr. Gleason/Dr. Maher 77 y.o male seen and evaluated for bilateral lower extremity ulcerations. Patient is seen resting comfortably in bed, in NAD, and AA0x3. Patient denies acute overnight events. Denies n/v/sob/cp/chills or f. Denies of any other pedal complains at this time. Objective - Vital Signs/Intake and Output Vital Signs (last 24 hours): Temp Pulse Resp BP Pulse Ox 98.1 F 53 L 18 151/58 H 94 L 07/13/17 12:00 07/14/17 08:28 07/13/17 12:00 07/14/17 08:28 07/13/17 12:03 Intake and Output: 07/14/17 07/14/17 06:59 18:59 Intake Total 420 Output Total 150 Balance 270 - Medications Medications: Current Medications Acetylcysteine (Acetylcysteine 20%) 4 ml IH [id number] [facility] Last Admin: 07/14/17 07:17 Dose: 4 ml Amlodipine Besylate (Norvasc) 10 mg PO DAILY [facility] PRN Reason: Protocol Last Admin: 07/13/17 09:15 Dose: 10 mg Aspirin (Ecotrin) 325 mg PO 0800 [facility] PRN Reason: Protocol Last Admin: 07/14/17 08:29 Dose: 325 mg Atorvastatin Calcium (Lipitor) 40 mg PO HS [facility] PRN Reason: Protocol Last Admin: 07/13/17 22:45 Dose: 40 mg Benzonatate (Tessalon Perles) 200 mg PO TID [facility] Last Admin: 07/13/17 18:12 Dose: 200 mg Calcium Acetate (Phoslo) 1,334 mg PO WM [facility] PRN Reason: Protocol Last Admin: 07/14/17 08:29 Dose: 1,334 mg Carvedilol (Coreg) 12.5 mg PO 0800,1800 [facility] Last Admin: 07/14/17 08:28 Dose: 12.5 mg Clotrimazole (Mycelex Kami) 10 mg MT 5XD [facility] Last Admin: 07/14/17 05:40 Dose: 10 mg Donepezil HCl (Aricept) 10 mg PO HS [facility] Last Admin: 07/13/17 21:48 Dose: 10 mg Ergocalciferol (Drisdol 50,000 Intl Units Cap) 1 cap PO Q7D [facility] Heparin Sodium (Porcine) (Heparin) 5,000 units SC Q8 [facility] PRN Reason: Protocol Last Admin: 07/14/17 05:38 Dose: 5,000 units Hydralazine HCl (Apresoline) 100 mg PO BID [facility] Last Admin: 07/13/17 18:10 Dose: 100 mg Insulin Human NPH (Humulin N) 5 units SC ACB [facility] Last Admin: 07/14/17 06:41 Dose: 5 units Insulin Human NPH (Humulin N) 5 units SC DAILY@1745 [facility] Last Admin: 07/13/17 18:09 Dose: 5 units Insulin Human Regular (Humulin R High) 0 units SC ACHS [facility] PRN Reason: Protocol Last Admin: 07/14/17 06:40 Dose: 7 units Levalbuterol HCl (Xopenex) 0.63 mg IH [id number] [facility] Last Admin: 07/14/17 07:17 Dose: 0.63 mg Losartan Potassium (Cozaar) 100 mg PO DAILY [facility] Last Admin: 07/13/17 09:14 Dose: 100 mg Memantine (Namenda) 5 mg PO DAILY [facility] Last Admin: 07/13/17 09:14 Dose: 5 mg Uqkey-0-Tuls Ethyl Esters (Lovaza) 1 gm PO BID [facility] Last Admin: 07/13/17 18:11 Dose: 1 gm Oseltamivir Phosphate (Tamiflu Susp) 30 mg PO DAILY [facility] PRN Reason: Protocol Last Admin: 07/13/17 12:24 Dose: 30 mg Pantoprazole Sodium (Protonix Ec Tab) 40 mg PO 0600 [facility] Last Admin: 07/14/17 05:40 Dose: 40 mg Prednisone (Prednisone Tab) 10 mg PO 0800 [facility] Last Admin: 07/14/17 08:29 Dose: 10 mg Tamsulosin HCl (Flomax) 0.4 mg PO QPM [facility] Last Admin: 07/13/17 18:11 Dose: 0.4 mg - Labs Labs: 07/13/17 13:26 07/13/17 13:26 - Constitutional Appears: Well, Non-toxic, No Acute Distress - Extremities Exam Additional comments: VASCULAR: DP/PT pulses 1/4 bilaterally, PROCESS SPECIALIST< 3 seconds, skin temperature is WNL NEUROLOGIC: Protective sensation and gross sensation decreased ORTHOPEDIC: Negative pain on palpation to the left lower extremity DERMATOLOGICAL: Ulceration on medial aspect of the right hallux measuring approximately .5 x .5 x .1 cm with wound base mainly fibrotic, no erythema, no tunneling, no undermining, no probe to bone, no drainage, no odor noted. Tiny scab/necrotic ulceration noted to the dorsum of the 4th right digit measuring approximately .2 x .2 cm with no erythema, no tunneling, no undermining, no probe to bone, no drainage, no odor noted. Tiny scab noted to the dorsum of the 2nd left digit measuring approximately .1x .1 cm with no erythema, no tunneling, no undermining, no probe to bone, no drainage, no odor noted. - Neurological Exam Neurological Exam: Alert, Awake, Oriented x3 - Psychiatric Exam Psychiatric exam: Normal Affect, Normal Mood Assessment and Plan - Assessment and Plan (Free Text) Assessment: 77 year old male with PMHx of DM, HTN, ESRD on HD, dyslipidemia, COPD, cataracts , chronic low back pain for bilaterally foot wounds Plan: Patient examined and evaluated at bedside with attending Dr. Gleason Labs, chart, vitals reviewed- absent leukocytosis, afebrile Cleansed ulceration with saline and maxosorb with optifoam applied Will order iodosorb, will use tomorrow with dressing change Will order surgical shoe Patient may WBAT in surgical shoe Will continue to follow patient while in house Upon discharge patient will continue to follow up with Dr. Maher in the wound care clinic within 1 week <Jose Gleason - Last Filed: 07/14/17 10:20> Objective - Vital Signs/Intake and Output Vital Signs (last 24 hours): Temp Pulse Resp BP Pulse Ox 98.1 F 53 L 18 151/58 H 94 L 07/13/17 12:00 07/14/17 08:28 07/13/17 12:00 07/14/17 08:28 07/13/17 12:03 Intake and Output: 07/14/17 07/14/17 06:59 18:59 Intake Total 420 Output Total 150 Balance 270 - Medications Medications: Current Medications Acetylcysteine (Acetylcysteine 20%) 4 ml IH [id number] [facility] Last Admin: 07/14/17 07:17 Dose: 4 ml Amlodipine Besylate (Norvasc) 10 mg PO DAILY [facility] PRN Reason: Protocol Last Admin: 07/13/17 09:15 Dose: 10 mg Aspirin (Ecotrin) 325 mg PO 0800 [facility] PRN Reason: Protocol Last Admin: 07/14/17 08:29 Dose: 325 mg Atorvastatin Calcium (Lipitor) 40 mg PO HS [facility] PRN Reason: Protocol Last Admin: 07/13/17 22:45 Dose: 40 mg Benzonatate (Tessalon Perles) 200 mg PO TID [facility] Last Admin: 07/13/17 18:12 Dose: 200 mg Calcium Acetate (Phoslo) 1,334 mg PO WM [facility] PRN Reason: Protocol Last Admin: 07/14/17 08:29 Dose: 1,334 mg Carvedilol (Coreg) 12.5 mg PO 0800,1800 [facility] Last Admin: 07/14/17 08:28 Dose: 12.5 mg Clotrimazole (Mycelex Kami) 10 mg MT 5XD [facility] Last Admin: 07/14/17 05:40 Dose: 10 mg Donepezil HCl (Aricept) 10 mg PO HS [facility] Last Admin: 07/13/17 21:48 Dose: 10 mg Ergocalciferol (Drisdol 50,000 Intl Units Cap) 1 cap PO Q7D [facility] Heparin Sodium (Porcine) (Heparin) 5,000 units SC Q8 [facility] PRN Reason: Protocol Last Admin: 07/14/17 05:38 Dose: 5,000 units Hydralazine HCl (Apresoline) 100 mg PO BID [facility] Last Admin: 07/13/17 18:10 Dose: 100 mg Insulin Human NPH (Humulin N) 5 units SC ACB [facility] Last Admin: 07/14/17 06:41 Dose: 5 units Insulin Human NPH (Humulin N) 5 units SC DAILY@1745 [facility] Last Admin: 07/13/17 18:09 Dose: 5 units Insulin Human Regular (Humulin R High) 0 units SC ACHS [facility] PRN Reason: Protocol Last Admin: 07/14/17 06:40 Dose: 7 units Levalbuterol HCl (Xopenex) 0.63 mg IH [id number] [facility] Last Admin: 07/14/17 07:17 Dose: 0.63 mg Losartan Potassium (Cozaar) 100 mg PO DAILY [facility] Last Admin: 07/13/17 09:14 Dose: 100 mg Memantine (Namenda) 5 mg PO DAILY [facility] Last Admin: 07/13/17 09:14 Dose: 5 mg Eiher-9-Eiok Ethyl Esters (Lovaza) 1 gm PO BID [facility] Last Admin: 07/13/17 18:11 Dose: 1 gm Oseltamivir Phosphate (Tamiflu Susp) 30 mg PO DAILY [facility] PRN Reason: Protocol Last Admin: 07/13/17 12:24 Dose: 30 mg Pantoprazole Sodium (Protonix Ec Tab) 40 mg PO 0600 [facility] Last Admin: 07/14/17 05:40 Dose: 40 mg Prednisone (Prednisone Tab) 10 mg PO 0800 [facility] Last Admin: 07/14/17 08:29 Dose: 10 mg Tamsulosin HCl (Flomax) 0.4 mg PO QPM [facility] Last Admin: 07/13/17 18:11 Dose: 0.4 mg - Labs Labs: 07/13/17 13:26 07/13/17 13:26 Attending/Attestation - Attestation I have personally seen and examined this patient.: Yes I have fully participated in the care of the patient.: Yes I have reviewed all pertinent clinical information, including history, physical exam and plan: Yes
[2017-07-14] MEDS: Omega-3-Acid Ethyl Esters 1 GM Cap PO SCH ×2 (10:37→17:08)
[2017-07-14] MEDS: Oseltamivir 6 MG/ML PO SCH (10:40)
--- NOTE | 2017-07-14 11:01 | PN ---
DATE: SUBJECTIVE: The patient is currently seen comfortable, lying supine in bed in the TCU. He had an uneventful dialysis yesterday. The patient will likely return mid next week back to [facility] on [facility] for chronic dialysis. MEDICATIONS: Medication list reviewed. The patient is on acetylcysteine, hydralazine, Aricept, Coreg, losartan, vitamin D, Ecotrin, Flomax, heparin, insulin, Lipitor, Lovaza, Mycelex Kami, Namenda, Norvasc, PhosLo, prednisone, Protonix, Tamiflu, Tessalon Perles and Xopenex. OBJECTIVE: VITAL SIGNS: Blood pressure 151/58, pulse 53, temperature 98.1, respiratory rate is 18. HEENT: Exam shows him to be normocephalic, atraumatic. Conjunctivae are pink. Sclerae nonicteric. NECK: Supple. No neck vein distention. CHEST: Clear to auscultation and percussion. No rales, rhonchi or wheezing noted. CARDIOVASCULAR: Shows a regular rate and rhythm without audible murmurs, rubs or gallops. ABDOMEN: Soft. Bowel sounds are normal. Mild obesity. No rebound or guarding. EXTREMITIES: Show no lower extremity edema. No cyanosis or clubbing. The patient has a working left upper extremity AV fistula. Positive thrill. Positive bruit. LABORATORY DATA AND IMAGING: Done predialysis yesterday, CBC, white blood cell count was 8.4 with a hemoglobin of 10.5, platelet count is normal at 145,000. Chemistries: Electrolytes are normal. CO2 of 20. BUN 107 with a creatinine of 9.4. Random glucose is 277. Calcium is 8.2, phosphorus 6.4 with a magnesium of 2.2. ASSESSMENT: 1. End-stage renal disease. The patient will continue Sunday, Sunday, Sunday dialysis. He will likely be transferred back to [facility] (formerly [facility] mid next week to continue outpatient dialysis. 2. Right lower lobe pneumonia. The patient has completed a course of antibiotic therapy. 3. Status post congestive heart failure. He appears to be euvolemic. No edema of his lower extremity and chest exam is clear. 4. History of hypertension. Blood pressure controlled on present medical therapy. 5. History of pjv-origzew-lzqmxyjte diabetes mellitus, currently on insulin with fair glucose control. 6. Past history of a cerebrovascular accident, currently stable. 7. History of dementia, stable on medication. 8. History of secondary hyperparathyroidism with vitamin D deficiency. The patient will continue ergocalciferol and he will remain on a higher dose of PhosLo to help lower his phosphorus level. PLAN: 1. Hemodialysis Sunday, Sunday and Sunday. Next dialysis is scheduled for 07/16/2017. 2. Continue rehabilitation and exercise in the TCU. 3. Continue to monitor glucose and adjust medications accordingly. 4. Continue vitamin D supplement and PhosLo and the patient should adhere to all dietary restrictions. Dustin Thomas MD
--- NOTE | 2017-07-14 13:55 | PN ---
DATE: The patient is seen in Transitional Care Unit, [facility] in [place]. The patient is in room 313, bed 1. SUBJECTIVE: The patient was admitted to the Transitional Care Unit after being treated for respiratory infection and the patient was in the Intensive Care Unit. Subsequently, the patient was transferred to the medical floor and now, he is admitted to Transitional Care Unit for deconditioning, continued medical treatment. PAST MEDICAL HISTORY: The patient's past history is significant. The patient has coronary artery disease. The patient has history of diabetes mellitus, dementia. The patient has history of chronic lung disease. MEDICATIONS: Consist of DuoNeb. The patient gets Mucomyst with respiratory treatments on and off. The patient is on hydralazine 100 mg daily b.i.d. The patient is on donepezil, which is Aricept, 10 mg once daily; Coreg 12.5 mg b.i.d. The patient is on losartan 100 mg daily, aspirin 325 mg daily, Flomax 0.4 mg daily, heparin coverage for prevention of DVT and embolism. The patient is on insulin coverage for diabetes, Lipitor 40 mg daily. The patient is on Lovaza 1 g b.i.d. The patient is also on Namenda 5 mg daily, amlodipine 10 mg daily. The patient is on PhosLo, prednisone 10 mg daily. The patient is on pantoprazole 40 mg daily. Tamiflu will be discontinued. The patient had flu at the time of admission. The patient also gets Tessalon Perles for cough. PHYSICAL EXAMINATION: GENERAL: Patient is awake, seemed to be answering all questions even though the patient is getting Namenda and Aricept at this time; maybe the medications are helping his mental state. VITAL SIGNS: His pulse is 75, blood pressure 180/52. He has erratic blood pressure. The patient is also getting renal dialysis 3 times a week. LUNGS: Bilateral occasional crepitations seen. HEART: Normal sinus rhythm. ABDOMEN: Soft, distended. LABORATORY DATA: Blood work: Hemoglobin 10.5. Chemistry: The patient's creatinine is 9.4, BUN is 107. The patient's blood sugar is 286 today. His blood pressure is elevated. We will keep an eye on his blood pressure and also his sugar, which is covered with insulin. continue physical therapy. Edel Grewal MD [facility] # [id number] KRISTI
--- NOTE | 2017-07-14 17:41 | PN ---
DATE: 07/14/2017 SUBJECTIVE: The patient is in bed, in no acute distress, nontoxic. PHYSICAL EXAMINATION: VITAL SIGNS: Temperature is 98, blood pressure is 104/60, respiratory rate of 16. HEENT: Unremarkable. NECK: Supple. LUNGS: Have decreased breath sounds. HEART: Normal S1, S2. ABDOMEN: Soft, nontender. LABORATORY DATA: Reveals a white count of 8.4, hemoglobin of 10, and platelets of 145. Chemistries reveal a BUN of 107, creatinine of 9.4. Review of orders reveals the patient is off of antibiotics. ASSESSMENT AND PLAN: A 77-year-old male seen earlier this morning in room 313, status post severe sepsis due to healthcare-associated pneumonia as well as epiglottitis and oropharyngeal candidiasis; end-stage renal disease, on hemodialysis; diabetes; hypertension; morbid obesity with body mass index of 41; dyslipidemia; chronic obstructive lung disease; on day #5 of Tamiflu. We will discontinue Tamiflu after today's last dose. We will follow with you. Long Lance MD
[2017-07-15] MEDS: Levalbuterol 0.63 MG/3 ML Inhal Soln UD IH SCH ×4 (01:15→20:33)
[2017-07-15] MEDS: Acetylcysteine 20% Inhal Soln (4ml) IH SCH ×4 (01:15→20:33)
[2017-07-15] MEDS: Pantoprazole 40 mg EC Tab PO SCH (06:08)
[2017-07-15] MEDS: Insulin Human NPH 1 UNITS/0.01 ML SC SCH ×2 (07:01→17:04)
[2017-07-15] MEDS: Insulin Reg-HIGH-Coverage SC SCH ×4 (07:02→21:45)
[2017-07-15] MEDS: Aspirin 325 mg EC Tablets PO SCH (08:43)
[2017-07-15] MEDS: Omega-3-Acid Ethyl Esters 1 GM Cap PO SCH ×2 (10:20→17:02)
--- NOTE | 2017-07-15 11:55 | PN ---
DATE: SUBJECTIVE: The patient is in the Transitional Care Unit in [place]. The patient was admitted with respiratory infection and he was in the ICU for a short period of time. The patient has past history of hypertension, atherosclerotic heart disease, dementia. The patient has history of renal failure. He is on renal dialysis on Mondays, Wednesdays and Fridays. The patient is seen this morning, sitting up having his breakfast. The patient is comfortable and responds to all questions. PHYSICAL EXAMINATION VITAL SIGNS: Pulse is 68. Blood pressure apparently is not correct what is being recorded, we will have to follow up on that. The patient's blood pressure is always elevated. According to this chart, the patient's blood pressure is very low. I reviewed the patient's blood pressure, which has to be retaken. LUNGS: Clinically clear. HEART: Normal sinus rhythm. ABDOMEN: Soft, nontender. CENTRAL NERVOUS SYSTEM: The patient has mild dementia and he has no focal deficits. He is very noncompliant with diet. His family brings food for him. His blood sugar is fluctuating at high levels. MEDICATIONS: Consist of respiratory treatment with Mucomyst. The patient gets hydralazine 100 mg b.i.d., Aricept 10 mg daily. The patient gets Namenda 5 mg daily, Coreg 12.5 mg b.i.d., losartan 100 mg daily. The patient is on Flomax 0.4 mg daily, aspirin 325 mg daily. The patient is on heparin for prophylaxis, insulin coverage for diabetes and Lipitor 40 mg for atherosclerotic heart disease and the patient also has history of antifungal infection. Infectious Disease has been consulted and placed the patient on Mycelex troches for fungal infection. Patient is on Amlodipine 10 mg daily for blood pressure. The patient is on multiple medications for blood pressure. He has a cut-off on the number based on his systolic pressure. We will continue current management. His diet is diabetic, 2 g sodium, heart-healthy diet. Edel Grewal MD KRISTI
[2017-07-15] MEDS: Oseltamivir 6 MG/ML PO SCH (12:07)
--- NOTE | 2017-07-15 14:16 | CP.PCM.PN ---
Subjective - Date & Time of Evaluation Date of Evaluation: 07/15/17 Time of Evaluation: 14:12 - Subjective Subjective: Podiatry Progress Note- Dr. Gleason/Dr. Maher 77 y.o male seen and evaluated for bilateral lower extremity ulcerations. Patient is seen with his family at bedside. Patient is seen resting comfortably in a chair, in NAD, and AA0x3. Patient denies acute overnight events. Denies n/v /sob/cp/chills or f. Denies of any other pedal complains at this time. Objective - Vital Signs/Intake and Output Vital Signs (last 24 hours): Temp Pulse Resp BP Pulse Ox 97.7 F 54 L 16 129/54 L 100 07/14/17 17:31 07/15/17 10:19 07/14/17 17:31 07/15/17 10:20 07/14/17 17:31 - Medications Medications: Current Medications Acetylcysteine (Acetylcysteine 20%) 4 ml IH [id number] [facility] Last Admin: 07/15/17 13:20 Dose: 4 ml Amlodipine Besylate (Norvasc) 10 mg PO DAILY [facility] PRN Reason: Protocol Last Admin: 07/15/17 10:20 Dose: 10 mg Aspirin (Ecotrin) 325 mg PO 0800 [facility] PRN Reason: Protocol Last Admin: 07/15/17 08:43 Dose: 325 mg Atorvastatin Calcium (Lipitor) 40 mg PO HS [facility] PRN Reason: Protocol Last Admin: 07/14/17 21:43 Dose: 40 mg Benzonatate (Tessalon Perles) 200 mg PO TID [facility] Last Admin: 07/15/17 13:33 Dose: 200 mg Calcium Acetate (Phoslo) 1,334 mg PO WM [facility] PRN Reason: Protocol Last Admin: 07/15/17 12:07 Dose: 1,334 mg Carvedilol (Coreg) 12.5 mg PO 0800,1800 [facility] Last Admin: 07/15/17 08:42 Dose: 12.5 mg Clotrimazole (Mycelex Kami) 10 mg MT 5XD [facility] Last Admin: 07/15/17 13:33 Dose: 10 mg Donepezil HCl (Aricept) 10 mg PO HS [facility] Last Admin: 07/14/17 21:43 Dose: 10 mg Ergocalciferol (Drisdol 50,000 Intl Units Cap) 1 cap PO Q7D [facility] Heparin Sodium (Porcine) (Heparin) 5,000 units SC Q8 [facility] PRN Reason: Protocol Last Admin: 07/15/17 13:32 Dose: 5,000 units Hydralazine HCl (Apresoline) 100 mg PO BID [facility] Last Admin: 07/15/17 10:19 Dose: Not Given Insulin Human NPH (Humulin N) 5 units SC ACB [facility] Last Admin: 07/15/17 07:01 Dose: 5 units Insulin Human NPH (Humulin N) 5 units SC DAILY@1745 [facility] Last Admin: 07/14/17 17:07 Dose: 5 units Insulin Human Regular (Humulin R High) 0 units SC ACHS [facility] PRN Reason: Protocol Last Admin: 07/15/17 12:06 Dose: 4 units Levalbuterol HCl (Xopenex) 0.63 mg IH [id number] [facility] Last Admin: 07/15/17 13:20 Dose: 0.63 mg Losartan Potassium (Cozaar) 100 mg PO DAILY [facility] Last Admin: 07/15/17 10:20 Dose: 100 mg Memantine (Namenda) 5 mg PO DAILY [facility] Last Admin: 07/15/17 10:20 Dose: 5 mg Xbimn-1-Guqb Ethyl Esters (Lovaza) 1 gm PO BID [facility] Last Admin: 07/15/17 10:20 Dose: 1 gm Pantoprazole Sodium (Protonix Ec Tab) 40 mg PO 0600 [facility] Last Admin: 07/15/17 06:08 Dose: 40 mg Prednisone (Prednisone Tab) 10 mg PO 0800 [facility] Last Admin: 07/15/17 08:41 Dose: 10 mg Tamsulosin HCl (Flomax) 0.4 mg PO QPM [facility] Last Admin: 07/14/17 17:04 Dose: 0.4 mg - Labs Labs: 07/13/17 13:26 07/13/17 13:26 - Constitutional Appears: Well, Non-toxic, No Acute Distress - Extremities Exam Additional comments: VASCULAR: DP/PT pulses 1/4 bilaterally, OXYGEN THERAPY TECHNICIAN< 3 seconds, skin temperature is WNL NEUROLOGIC: Protective sensation and gross sensation decreased ORTHOPEDIC: Negative pain on palpation to the left lower extremity DERMATOLOGICAL: Ulceration on medial aspect of the right hallux measuring approximately .5 x .5 x .1 cm with wound base mainly fibrotic, no erythema, no tunneling, no undermining, no probe to bone, no drainage, no odor noted. Tiny scab/necrotic ulceration noted to the dorsum of the 4th right digit measuring approximately .2 x .2 cm with no erythema, no tunneling, no undermining, no probe to bone, no drainage, no odor noted. Tiny scab noted to the dorsum of the 2nd left digit measuring approximately .1x .1 cm with no erythema, no tunneling, no undermining, no probe to bone, no drainage, no odor noted. - Neurological Exam Neurological Exam: Alert, Awake, Oriented x3 - Psychiatric Exam Psychiatric exam: Normal Affect, Normal Mood Assessment and Plan - Assessment and Plan (Free Text) Assessment: 77 year old male with PMHx of DM, HTN, ESRD on HD, dyslipidemia, COPD, cataracts , chronic low back pain for bilaterally foot wounds Plan: Patient examined and evaluated at bedside Discussed plan with Dr. Maher Labs, chart, vitals reviewed- absent leukocytosis, afebrile Cleansed ulceration with saline and dressing applied using iodosorb with optifoam Patient may WBAT in surgical shoe Will continue to follow patient while in house Upon discharge patient will continue to follow up with Dr. Maher in the wound care clinic within 1 week
--- NOTE | 2017-07-15 16:23 | PN ---
DATE: 07/15/2017 SUBJECTIVE: The patient is in bed, in no acute distress, nontoxic. PHYSICAL EXAMINATION: VITAL SIGNS: Temperature is 97, blood pressure is 120/40, respiratory rate of 18. HEENT: Unremarkable. NECK: Supple. LUNGS: Have decreased breath sounds. HEART: Normal S1, S2. ABDOMEN: Soft, nontender. LABORATORY DATA: Reveals a white count of 8, hemoglobin of 10, platelets of 145. Chemistries reveals a BUN of 107, creatinine is 9.4. ASSESSMENT AND PLAN: A 77-year-old who was seen early this morning in room 313, status post severe sepsis with healthcare-associated pneumonia as well as epiglottitis and oropharyngeal candidiasis, end-stage renal disease, on hemodialysis, hypertension, morbid obesity, body mass index of 41, dyslipidemia, currently now off of antibiotics. The patient has completed 5 days of Tamiflu and patient is at risk for developing nosocomial infections, currently off of antibiotics. The patient is on prednisone. Will follow closely with you. . Long Lance MD
[2017-07-15] MEDS: Insulin Detemir 100 units/ml Vial (Levemir) SC SCH (21:46)
[2017-07-16] MEDS: Levalbuterol 0.63 MG/3 ML Inhal Soln UD IH SCH ×4 (01:17→20:10)
[2017-07-16] MEDS: Acetylcysteine 20% Inhal Soln (4ml) IH SCH ×4 (01:17→20:09)
[2017-07-16] MEDS: Pantoprazole 40 mg EC Tab PO SCH (05:42)
[2017-07-16] MEDS: Insulin Reg-HIGH-Coverage SC SCH ×4 (06:58→21:58)
[2017-07-16] MEDS: Insulin Human NPH 1 UNITS/0.01 ML SC SCH ×2 (07:02→18:00)
--- NOTE | 2017-07-16 07:53 | CP.PCM.PN ---
Subjective - Date & Time of Evaluation Date of Evaluation: 07/16/17 Time of Evaluation: 07:40 - Subjective Subjective: Medicine Note for Dr. Whitman Patient seen and examined at bedside. No acute event overnight. Patient has no complaints. He is tolerating diet and having BMs. Denies SOB, fever/chills, chest pain, abd pain, nausea/vomiting, diarrhea. Objective - Vital Signs/Intake and Output Vital Signs (last 24 hours): Temp Pulse Resp BP Pulse Ox 97.5 F L 51 L 20 143/53 L 95 07/15/17 17:32 07/15/17 17:32 07/15/17 17:32 07/15/17 17:32 07/15/17 17:32 - Medications Medications: Current Medications Acetylcysteine (Acetylcysteine 20%) 4 ml IH [id number] [facility] Last Admin: 07/16/17 07:13 Dose: 4 ml Amlodipine Besylate (Norvasc) 10 mg PO DAILY [facility] PRN Reason: Protocol Last Admin: 07/15/17 10:20 Dose: 10 mg Aspirin (Ecotrin) 325 mg PO 0800 [facility] PRN Reason: Protocol Last Admin: 07/15/17 08:43 Dose: 325 mg Atorvastatin Calcium (Lipitor) 40 mg PO HS [facility] PRN Reason: Protocol Last Admin: 07/15/17 21:26 Dose: 40 mg Benzonatate (Tessalon Perles) 200 mg PO TID [facility] Last Admin: 07/15/17 17:06 Dose: 200 mg Calcium Acetate (Phoslo) 1,334 mg PO WM [facility] PRN Reason: Protocol Last Admin: 07/15/17 17:06 Dose: 1,334 mg Carvedilol (Coreg) 12.5 mg PO 0800,1800 [facility] Last Admin: 07/15/17 17:02 Dose: 12.5 mg Clotrimazole (Mycelex Kami) 10 mg MT 5XD [facility] Last Admin: 07/16/17 05:42 Dose: 10 mg Donepezil HCl (Aricept) 10 mg PO HS [facility] Last Admin: 07/15/17 21:26 Dose: 10 mg Ergocalciferol (Drisdol 50,000 Intl Units Cap) 1 cap PO Q7D [facility] Heparin Sodium (Porcine) (Heparin) 5,000 units SC Q8 [facility] PRN Reason: Protocol Last Admin: 07/16/17 05:41 Dose: 5,000 units Hydralazine HCl (Apresoline) 100 mg PO BID [facility] Last Admin: 07/15/17 17:00 Dose: 100 mg Insulin Detemir (Levemir) 10 unit SC Q12 [facility] Last Admin: 07/15/17 21:46 Dose: 10 unit Insulin Human NPH (Humulin N) 5 units SC ACB [facility] Last Admin: 07/16/17 07:02 Dose: 5 units Insulin Human NPH (Humulin N) 5 units SC DAILY@1745 [facility] Last Admin: 07/15/17 17:04 Dose: 5 units Insulin Human Regular (Humulin R High) 0 units SC ACHS [facility] PRN Reason: Protocol Last Admin: 07/16/17 06:58 Dose: 2 units Levalbuterol HCl (Xopenex) 0.63 mg IH [id number] [facility] Last Admin: 07/16/17 07:13 Dose: 0.63 mg Losartan Potassium (Cozaar) 100 mg PO DAILY [facility] Last Admin: 07/15/17 10:20 Dose: 100 mg Memantine (Namenda) 5 mg PO DAILY [facility] Last Admin: 07/15/17 10:20 Dose: 5 mg Deoln-4-Xesr Ethyl Esters (Lovaza) 1 gm PO BID [facility] Last Admin: 07/15/17 17:02 Dose: 1 gm Pantoprazole Sodium (Protonix Ec Tab) 40 mg PO 0600 [facility] Last Admin: 07/16/17 05:42 Dose: 40 mg Prednisone (Prednisone Tab) 10 mg PO 0800 [facility] Last Admin: 07/15/17 08:41 Dose: 10 mg Tamsulosin HCl (Flomax) 0.4 mg PO QPM [facility] Last Admin: 07/15/17 17:03 Dose: 0.4 mg - Labs Labs: 07/13/17 13:26 07/13/17 13:26 - Constitutional Appears: No Acute Distress - Head Exam Head Exam: ATRAUMATIC, NORMOCEPHALIC - Eye Exam Eye Exam: Normal appearance - ENT Exam ENT Exam: Mucous Membranes Moist - Respiratory Exam Respiratory Exam: Decreased Breath Sounds, NORMAL BREATHING PATTERN - Cardiovascular Exam Cardiovascular Exam: REGULAR RHYTHM, +S1, +S2 - GI/Abdominal Exam GI & Abdominal Exam: Soft. absent: Tenderness - Neurological Exam Neurological Exam: Alert, Awake - Psychiatric Exam Psychiatric exam: Normal Affect, Normal Mood - Skin Skin Exam: Dry, Warm Assessment and Plan - Assessment and Plan (Free Text) Plan: 77 M with PMH of ESRD on HD Sunday//Sunday, IDDM, CVA, tobacco abuse , COPD presents with severe community acquired pneumonia and epiglottitis. Patient is still in TCU. Continuing physical therapy. Patient currently stable. IV ABX and Tamiflu have been discontinued. Dialysis as per Nephro. Will get CXR PA/lateral to evaluate lung quezada. Patient will likely be discharged tomorrow. Zuhair Cabral PGY1
[2017-07-16] MEDS: Aspirin 325 mg EC Tablets PO SCH (08:17)
[2017-07-16] MEDS: Omega-3-Acid Ethyl Esters 1 GM Cap PO SCH ×2 (10:32→18:00)
[2017-07-16] MEDS: Insulin Detemir 100 units/ml Vial (Levemir) SC SCH ×2 (10:38→21:36)
--- NOTE | 2017-07-16 10:51 | PN ---
DATE: 07/13/2017 SUBJECTIVE: The patient is seen in the dialysis unit. He is awake, he is alert, he is comfortable. He denies any pain. PHYSICAL EXAMINATION: GENERAL: Obese elderly male sitting in chair. VITAL SIGNS: Blood pressure 121/51, heart rate 58, respiratory rate 18, temperature 98. HEENT: Normocephalic and atraumatic. NECK: Supple, no JVD. LUNGS: Bilateral equal air entry. EXTREMITIES: No lower extremity edema. LABORATORY DATA: WBC 8.4, hemoglobin 10.5, hematocrit 32, platelets 145. Sodium 138, potassium 4.6, chloride 99, CO2 of 20, BUN 107, creatinine 9.4, glucose 277, calcium 8.2, phosphorus 6.4, magnesium 2.2. ASSESSMENT: 1. End-stage renal disease. 2. Hgo-hqtvrnl-mexhaldum diabetes mellitus. 3. Hypertension. 4. Status post pneumonia. 5. Anemia of chronic kidney disease. 6. Hyperphosphatemia. PLAN: 1. Stable dialysis. 2. Continue phosphate binders. 3. Follow a 2 g sodium renal diet. 4. Physical therapy. Yadira Fox MD
--- NOTE | 2017-07-16 13:02 | RAD ---
HISTORY: recent pneumonia, worsening exam COMPARISON: 07/09/2017 TECHNIQUE: Chest PA and lateral FINDINGS: LUNGS: No active pulmonary disease. PLEURA: No significant pleural effusion identified. No pneumothorax apparent. CARDIOVASCULAR: Mild vascular congestion unchanged OSSEOUS STRUCTURES: No significant abnormalities. VISUALIZED UPPER ABDOMEN: Normal. OTHER FINDINGS: None. IMPRESSION: No active disease.
--- NOTE | 2017-07-16 15:12 | PN ---
DATE: 07/16/2017 SUBJECTIVE: The patient was seen lying in the room 313, bed 1. The patient is very resistant to be out of bed to chair. The patient was encouraged to be out of bed to chair as much as possible and ambulate. Overnight nurse's notes were reviewed. The patient was found by the nurses to be alert, awake, oriented x3 without any adverse events. PHYSICAL EXAMINATION: VITAL SIGNS: T-max is 97.8; pulse 77; blood pressure 138/84, 159/56; respiration 18; O2 sat 95%. HEENT: Head examination normocephalic, atraumatic. HEENT examination shows pinkish pale conjunctivae. Anicteric sclerae. Questionable macroglossia. NECK: Short and supple. No jugular venous distention. CHEST: Kyphosis. LUNGS: Shows questionable rhonchi at the right base. CARDIOVASCULAR: S1, S2. Regular rhythm. Questionable soft systolic murmur, left sternal border, right second intercostal space, left second intercostal space. ABDOMEN: Slightly protuberant. Positive bowel sound. No hepatosplenomegaly noted. No costovertebral angle tenderness noted. GENITALIA: Male. RECTAL: Deferred. EXTREMITY: Shows positive left upper extremity AV fistula, positive thrill. Lower extremity shows toe amputation of the left foot. NEUROLOGIC: Gait examination is not tested. MUSCULOSKELETAL: shows a body mass index of 34. DIAGNOSTICS: None from today. Fingerstick blood sugar 238, 197, 289, 289, 230, 281, 433, 273, 286, 284. All of which have been elevated. The patient's last lab data from 07/13/2017 was reviewed. Blood cultures negative. The patient has been seen over the weekend by Dr. Grewal WHO has been covering me, Nephrology, Infectious Disease. Their recommendations were noted. IMPRESSION AND PLAN: 1. Deconditioning. 2. Gait dysfunction. 3. Severe sepsis secondary to healthcare-associated pneumonia with epiglottitis and oropharyngeal candidiasis. 4. End-stage renal disease, hemodialysis dependent three times a week via the left upper extremity fistula. 5. Morbid obesity with elevated body mass index of 34. 6. Questionable and possible sleep apnea. 7. History of snoring. 8. Normocytic anemia. 9. Granulocytosis. 10. Hypovitaminosis D. 11. Persistent hyperglycemia and uncontrolled insulin-requiring diabetes mellitus with hyperglycemia. 12. Hypertension. 13. Dementia. 14. Prostatic hypertrophy. 15. Dyslipidemia. 16. Hypertriglyceridemia. 17. Gastroesophageal reflux. Plan at this time, the patient is to be continued on Transitional Care Unit with aggressive physical therapy, occupational therapy, gait training, ambulation. The patient was encouraged to be out of bed to chair during the day most of the time. The patient is on Mucomyst 20% 4 mL q. 6 hours, hydralazine 100 mg twice a day, Aricept 10 mg daily, Coreg 12.5 mg twice a day, losartan or Cozaar 100 mg daily, Drisdol 50,000 weekly, Ecotrin 325 mg daily, Flomax 0.4 mg daily, heparin 5000 subcu q. 8, NPH 5 units with breakfast and 5 units with dinner. The patient is on Humulin R sliding scale coverage high-dose. The patient is started on Levemir 10 units q. 12 hours because the patient's Toujeo insulin is not available here, so the patient is started on Levemir 20 units q. 12 hours, Lipitor 40 mg daily, Lovaza 1 g twice a day, Mycelex Troches 10 mg five times a day, Namenda 5 mg daily, Norvasc 10 mg daily, PhosLo 34 mg with meals. Next, the patient's prednisone is discontinued. Protonix 40 mg daily, Tessalon Perles 200 three times a day, Xopenex 0.63 mg every 6 hours. The patient has been ordered a repeat chest x-ray PA and lateral because today's clinical examination shows some crepitations and crackles, right more than the left. The patient is on chest PT, oxygen, physical therapy, ambulation therapy. The patient will be continued on Transitional Care Unit till completion of the stay. The patient's case will be referred to Emergency Services Dispatcher upon discharge. Dictated and electronically signed, not read. Oleg Whitman MD
--- NOTE | 2017-07-16 18:24 | PN ---
DATE: SUBJECTIVE: The patient is currently seen sitting at the side of his bed. He is preparing to go to dialysis today. He has completed a course of antibiotic therapy for his right lower lobe pneumonia. The patient is scheduled for discharge from the TCU tomorrow. MEDICATIONS: Medication list reviewed. The patient is on acetylcysteine, Apresoline, Aricept, Coreg, losartan, vitamin D, Ecotrin, Flomax, heparin, insulin, Lipitor, Lovaza, Mycelex Kami, Namenda, Norvasc, PhosLo, Protonix, Tessalon Perles and Xopenex. OBJECTIVE: VITAL SIGNS: Blood pressure is 138/84, temperature 97.6, respiratory rate 18 with a pulse of 77. HEENT: Shows him to be normocephalic, atraumatic. Conjunctivae are pink. Sclerae are nonicteric. NECK: Supple. No neck vein distention. CHEST: Clear to auscultation and percussion. No rales, rhonchi or wheezing. CARDIOVASCULAR: Regular rate and rhythm without audible murmurs, rubs or gallops. ABDOMEN: Soft. Bowel sounds normal. Moderate obesity. No rebound or guarding. EXTREMITIES: Show a working left upper extremity AV fistula. No lower extremity edema. No cyanosis or clubbing. LABORATORY DATA AND IMAGING: No labs done over the weekend. His next set of labs will be with dialysis today. Last glucose was 238. ASSESSMENT: 1. End-stage renal disease. Patient will continue Sunday, Sunday and Sunday dialysis. He will likely be discharged tomorrow with transfer back to [facility] on [facility] for next Sunday. 2. Right lower lobe pneumonia, treated successfully with antibiotic therapy. 3. History of congestive heart failure. The patient appears to be euvolemic. No edema and chest is clear. 4. History of hypertension. Blood pressure controlled on current medical therapy. 5. History of kxr-bceterx-wqfizpecf diabetes mellitus, currently on insulin with fair control. 6. Past history of cerebrovascular accident. 7. History of dementia, currently stable on medication. 8. History of secondary hyperparathyroidism with vitamin D deficiency. The patient will continue vitamin D therapy along with PhosLo at the higher dose to lower his phosphorus level into the normal range. PLAN: 1. Hemodialysis today. The patient will be leaving shortly from the TCU. 2. Complete his course of rehabilitation and exercise in the TCU by tomorrow. 3. Continue to monitor sugars. 4. Continue all present medications for secondary hyperparathyroidism. Dustin Thomas MD
[2017-07-16 21:03] LABS: BASO # 0.02 K/mm3 (0.0-2.0); BASO % 0.2 % (0.0-3.0); EOS # 0.1 (0.0-0.7); EOS % 0.7 % (1.5-5.0); GRAN # 6.99 (1.4-6.5); GRAN % 77.3 % (50.0-68.0); HEMOGLOBIN 10.3 g/dL (14.0-18.0); LYMPH # 1.6 (1.2-3.4); LYMPH % 17.2 % (22.0-35.0); MEAN CORPUSCULAR HEMOGLOBIN 27.2 pg (25.0-35.0); MEAN PLATELET VOLUME 11.2 fl (7.0-11.0); MONO # 0.4 (0.1-0.6); MONO % 4.6 % (1.0-6.0); RBC 3.79 10^6/uL (3.5-6.1); WHITE BLOOD COUNT 9.1 10^3/ul (4.5-11.0)
[2017-07-16 21:27] LABS: ALB/GLOB RATIO 1.1 (1.1-1.8); CALCIUM 8.2 mg/dL (8.4-10.5)
[2017-07-17] MEDS: Levalbuterol 0.63 MG/3 ML Inhal Soln UD IH SCH ×3 (01:27→13:44)
[2017-07-17] MEDS: Acetylcysteine 20% Inhal Soln (4ml) IH SCH ×3 (01:27→13:44)
[2017-07-17] MEDS: Pantoprazole 40 mg EC Tab PO SCH (05:59)
[2017-07-17] MEDS: Insulin Reg-HIGH-Coverage SC SCH ×2 (06:36→12:13)
[2017-07-17] MEDS: Insulin Human NPH 1 UNITS/0.01 ML SC SCH (06:36)
[2017-07-17] MEDS: Aspirin 325 mg EC Tablets PO SCH (08:22)
[2017-07-17 10:10] VITALS: PULSE 53; RESP 20; TEMP 97.8; O2SAT 96
[2017-07-17] MEDS: Omega-3-Acid Ethyl Esters 1 GM Cap PO SCH (10:24)
[2017-07-17 10:55] VITALS: BP 174/54
[2017-07-17] MEDS: Insulin Detemir 100 units/ml Vial (Levemir) SC SCH (11:00)
--- NOTE | 2017-07-17 14:14 | PN ---
DATE: SUBJECTIVE: The patient is currently seen completing his lunch in the TCU. He will likely be discharged to home later today. He had an uneventful dialysis yesterday. He had completed a course of antibiotic therapy for his right lower lobe pneumonia. MEDICATIONS: The patient is currently on acetylcysteine inhalation therapy, Apresoline, Aricept, Coreg, losartan, vitamin D, Ecotrin, Flomax, heparin, insulin, Lipitor, Lovaza, Mycelex Kami, Namenda, Norvasc, PhosLo, Protonix, Tessalon Perles and Xopenex inhalation therapy. OBJECTIVE: VITAL SIGNS: Blood pressure is 174/54, temperature is 97.8, respiratory rate is 20 with pulse of 53. HEENT: Exam shows him to be normocephalic, atraumatic. Conjunctivae pink. Sclerae nonicteric. NECK: Supple. No neck vein distention. CHEST: Clear to auscultation and percussion. No rales, rhonchi or wheezing. CARDIOVASCULAR: Shows a regular rate and rhythm without audible murmurs, rubs or gallops. ABDOMEN: Soft. Bowel sounds normal. Moderate obesity. No distention. No rebound or guarding. EXTREMITIES: Show a working left upper extremity AV fistula. No lower extremity edema. No cyanosis or clubbing. LABORATORY DATA AND IMAGING: Predialysis labs done yesterday. CBC: White blood cell count 9.1, hemoglobin IS stable AT 10.3, platelet count is 117,000. Chemistry showed normal electrolytes. BUN 56, creatinine 5.8. Glucose is 197. Calcium 8.2, but IT corrects to normal for an albumin of 3.0. Phosphorus 3.7 with a magnesium of 1.9. ASSESSMENT: 1. End-stage renal disease. The patient will likely be discharged later today and resume dialysis at [facility] on [facility] tomorrow. 2. Right lower lobe pneumonia, successfully treated with the antibiotic therapy. 3. History of congestive heart failure. The patient appears to be euvolemic. No edema in his lower extremity and chest is clear. 4. History of hypertension. Blood pressure control is acceptable. Mild elevation of systolic blood pressure. The patient will continue current medications and as necessary will have medications adjusted and titrated in the outpatient setting. 5. History of Yis-eiyutie-lkdufblis diabetes mellitus. The patient has been treated with insulin. 6. Past history of a cerebrovascular accident. 7. History of dementia, currently stable on medication. 8. History of secondary hyperparathyroidism with a normal calcium and phosphorus level. The patient will continue vitamin D therapy along with PhosLo, binder therapy. PLAN: 1. Agree with discharge home today. 2. Cautioned the patient about all dietary restrictions. 3. Informed the patient that he might need adjustment of his blood pressure medication in the outpatient setting. 4. The patient encouraged to continue to monitor sugars in the outpatient setting. 5. Continue present dietary restrictions and current medications. Dustin Thomas MD
--- NOTE | 2017-07-17 16:45 | PN ---
DATE: SUBJECTIVE: A 77-year-old diabetic male seen at bedside for continued evaluation and management of a right hallux diabetic ulceration. The patient is resting comfortably, offers no new complaints, being discharged today. The patient is fully aware that he is going to be followed at the wound center weekly and we have arranged visiting nurses to come to his home twice weekly for dressing changes. PHYSICAL EXAMINATION: VITAL SIGNS: Reveal temperature of 97.8, pulse rate of 53, blood pressure of 146/59, respiratory rate of 20. EXTREMITIES: Weakly palpable pedal pulses noted bilaterally. Capillary filling time is delayed x10. Skin temperature is within normal limits bilaterally. The patient is unable to detect 5.07 g monofilament wire testing bilaterally. There is a full-thickness ulceration located at the medial aspect of the right hallux at the IPJ that measures approximately 0.5 x 0.5 x 0.1 cm. Base of the ulceration is primarily fibrotic, but there is some granulation tissue starting to emerge. There is no edema, no erythema. There is serous drainage only, no purulence to suggest underlying abscess formation. No probing to bone to suggest osteomyelitis. LABORATORY DATA: Reveal white count of 9.1, hemoglobin of 10.3, hematocrit to 32.2, platelet count of 117. ASSESSMENT: A 77-year-old diabetic male on hemodialysis 3 days a week with end-stage renal disease, seen for a now right hallux ulceration. PLAN: The patient's foot was examined. His wound was cleansed with normal sterile saline and application of Iodosorb and a dry sterile dressing was applied. The patient was reminded that he must follow up at the wound center weekly with Dr. Maher or myself and the patient agreed. He is to wear the surgical shoe at all times when ambulating. The patient will have visiting nurses come to his house to change his dressings. He was told to take the Iodosorb cream at bedside home with him, which he will do. Jose Gleason DPM [facility]ITAL[facility]ory[facility]
--- NOTE | 2017-07-18 07:19 | DS ---
FINAL PROGRESS NOTE AND DISCHARGE SUMMARY HISTORY OF PRESENT ILLNESS: Patient is seen in room 313, bed 1, today for the first time. Patient is seen sitting up in the bed. Patient is alert, awake, responsive. Patient appears to be comfortable. Patient was seen by the social work therapist. Patient's case was referred to the social work therapist. Patient's and the patient met with the social work therapist yesterday regarding the discharge planning. Patient's case was referred to [facility]. According to the social work therapist, patient was seen by the patient's nurse, patient was found to be alert, awake, responsive. No overnight adverse events documented. PHYSICAL EXAMINATION: VITAL SIGNS: T-max 97.8; pulse 53, 54, 58; blood pressure 174/54, 146/59, 152/54; respiration 20; O2 sat 96%. HEENT: Head: Examination normocephalic, atraumatic. HEENT examination shows pinkish pale conjunctivae. Anicteric sclerae. No oropharyngeal lesion. No neck rigidity. Macroglossia noted. No jugular venous distention. Soft carotid bruit. CHEST: Kyphosis. LUNGS: Shows occasional upper lung rhonchi. No rales, crackles or wheezing. Questionable decreased breath sound at the left base. CARDIOVASCULAR: S1, S2, regular rhythm. Positive systolic murmur left sternal border, right second intercostal space, left second intercostal space. ABDOMEN: Soft. Positive bowel sounds. No hepatosplenomegaly appreciated. GENITALIA: Male. RECTAL: Examination is deferred. No costovertebral angle tenderness. EXTREMITIES: Upper extremity shows positive left upper extremity AV fistula, positive thrill. Lower extremity shows positive toe amputation. No pitting edema, no calf tenderness, no Homans' sign. NEUROLOGIC: Patient is alert, awake, responsive, follows command. Moves upper and lower extremities without assistance. Gait examination is not tested. VASCULAR: Palpable pulses. DIAGNOSTICS: From 07/16, sodium 137; potassium 3.9; chloride 97; CO2 29; anion gap 15; BUN 56; creatinine 5.8; GFR 11; glucose 238, 139, 197, 218, 101; calcium 8.2; phosphorus 3.7; magnesium 1.9. LFTs are normal. Vitamin D 17.2. PSA is normal. WBC 9.1, hemoglobin/hematocrit 10.3 and 32.2, platelet 117. Microbiology, blood bank cultures are negative. Patient had a chest x-ray done yesterday, which shows no pneumonia, no congestive heart failure, no active disease. FINAL IMPRESSION, PLAN AND DISCHARGE DIAGNOSES: 1. Gait dysfunction. 2. Deconditioning. 3. Status post respiratory failure. 4. Obesity with elevated body mass index. 5. Macroglossia. 6. Oropharyngeal candidiasis. 7. Right hallux superficial ulceration. 8. End-stage renal disease, hemodialysis dependent via the left upper extremity arteriovenous fistula three times a week. 9. Hypertension. 10. Insulin-requiring diabetes mellitus. 11. Dementia. 12. Secondary hyperparathyroidism. 13. Hypovitaminosis D. 14. Prostatic hypertrophy. 15. Dyslipidemia. 16. Hypertriglyceridemia. 17. Normocytic anemia. 18. Granulocytosis. 19. Relative thrombocytopenia. Patient is to be discharged home today after completion of Transitional Care Unit. Patient is discharged home with referrals to [facility]. Patient will be discharged home. DISCHARGE MEDICATIONS: 1. Aspirin 325 mg daily. 2. Lipitor 40 mg daily. 3. Tessalon Perles 200 three times a day. 4. PhosLo 1334 mg three times a day. 5. Coreg decreased to 12.5 mg twice a day. 6. Mycelex Troches 10 mg five times a day. 7. Aricept 10 mg at bedtime. 8. Drisdol 50,000 units weekly. 9. Hydralazine 100 mg twice a day. 10 . Toujeo SoloStar 35 units subcu daily. 11. Xopenex nebulizer 0.63 mg every 6 hours. 12. Cozaar 100 mg daily. 13. Namenda 5 mg twice a day. 14. Lovaza 1000 mg twice a day. 15. Protonix 40 mg daily. 16. Flomax 0.4 mg daily. 17. Norvasc 10 mg daily. Patient is discharged home. Discharge followup with Dr. Maher, discharge followup with Dr. Whitman, discharge followup with Dr. Martines, discharge followup with Dr. Thomas. Patient is to be discharged home after completion of the TCU with discharge medications as per updated ambulatory list plus new script. No smoking, no driving. No alcohol was advised. Patient was advised to follow up with Dr. Whitman within 1 week. The patient's case referred to [facility] for discharge planning. Patient's home care referral was made to [facility], which was explained to the patient and the patient's . Time spent in the entire discharge process, more than 45 minutes. Dictated and electronically signed, not read. Oleg Whitman MD
== END 2017-07-17 16:58 | disposition home health service (06) | DRG 91 ==
LOC: TRCU 20:45
PROVIDERS: ADMIT Internal Medicine; ATTEND Internal Medicine
PROC: 3E03329 Introduction of Other Anti-infective into Peripheral Vein, Percutaneous Approach (ICD-10-PCS; 2017-07-09)
PROC: F07Z9FZ Gait Training/Functional Ambulation Treatment using Assistive, Adaptive, Supportive or Protective Equipment (ICD-10-PCS; principal; 2017-07-11)
PROC: F07Z5ZZ Bed Mobility Treatment (ICD-10-PCS; 2017-07-11)
PROC: F07L6ZZ Therapeutic Exercise Treatment of Musculoskeletal System - Lower Back / Lower Extremity (ICD-10-PCS; 2017-07-11)
PROC: 5A1D70Z Performance of Urinary Filtration, Intermittent, Less than 6 Hours Per Day (ICD-10-PCS; 2017-07-11)
PROC: F08Z1FZ Dressing Techniques Treatment using Assistive, Adaptive, Supportive or Protective Equipment (ICD-10-PCS; 2017-07-12)
PROC: 5A1D70Z Performance of Urinary Filtration, Intermittent, Less than 6 Hours Per Day (ICD-10-PCS; 2017-07-13)
PROC: 5A1D70Z Performance of Urinary Filtration, Intermittent, Less than 6 Hours Per Day (ICD-10-PCS; 2017-07-16)
DX: R26.9 Unspecified abnormalities of gait and mobility (principal); J18.9 Pneumonia, unspecified organism; N18.6 End stage renal disease; I13.2 Hypertensive heart and chronic kidney disease with heart failure and with stage 5 chronic kidney disease, or end stage renal disease; J44.0 Chronic obstructive pulmonary disease with (acute) lower respiratory infection; B37.0 Candidal stomatitis; J05.10 Acute epiglottitis without obstruction; Z68.41 Body mass index [BMI] 40.0-44.9, adult; N25.81 Secondary hyperparathyroidism of renal origin; E11.22 Type 2 diabetes mellitus with diabetic chronic kidney disease; D69.6 Thrombocytopenia, unspecified; E11.36 Type 2 diabetes mellitus with diabetic cataract; E11.621 Type 2 diabetes mellitus with foot ulcer; E11.65 Type 2 diabetes mellitus with hyperglycemia; F03.90 Unspecified dementia, unspecified severity, without behavioral disturbance, psychotic disturbance, mood disturbance, and anxiety; E55.9 Vitamin D deficiency, unspecified; N40.0 Benign prostatic hyperplasia without lower urinary tract symptoms; E78.1 Pure hyperglyceridemia; L97.519 Non-pressure chronic ulcer of other part of right foot with unspecified severity; I50.9 Heart failure, unspecified; D63.1 Anemia in chronic kidney disease; E83.39 Other disorders of phosphorus metabolism; M81.0 Age-related osteoporosis without current pathological fracture; I25.10 Atherosclerotic heart disease of native coronary artery without angina pectoris; E66.01 Morbid (severe) obesity due to excess calories; M54.5 Low back pain; K21.9 Gastro-esophageal reflux disease without esophagitis; Z79.2 Long term (current) use of antibiotics; Z79.4 Long term (current) use of insulin; Z91.11 Patient's noncompliance with dietary regimen; Z86.73 Personal history of transient ischemic attack (TIA), and cerebral infarction without residual deficits; Z87.891 Personal history of nicotine dependence

== ENCOUNTER 2017-11-08 12:54 | Emergency (ER) | payer MEDICARE, BC ==
[2017-11-08 12:55] VITALS: BMI 34.4
[2017-11-08] MEDS ORDERED: Vancomycin 1gm in NS 250ml 1 GM/250 ML BAG IVPB STA (14:42)
[2017-11-08] MEDS ORDERED: Morphine 2 mg/ml ISec IVP STA (14:43)
[2017-11-08 14:44] VITALS: RESP 20
--- NOTE | 2017-11-08 14:49 | ED PDOC ---
Arrival/HPI - General Chief Complaint: Lower Extremity Problem/Injury Time Seen by Provider: 11/08/17 14:37 - History of Present Illness Narrative History of Present Illness (Text): 77 y/o M c PMHx ESRD due tomorrow, DM p/w L foot infected ulcers with spreading erythema and pain. Patient went to [facility] today and was seen by Dr. Maher who recommended patient be admitted and sent to ED. Patient denies fever, chills, nausea, vomiting, dyspnea, chest pain, abdominal pain. Past Medical History - Infectious Disease Hx of Infectious Diseases: None - Cardiac Hx Congestive Heart Failure: Yes Hx Hypertension: Yes - Pulmonary Hx Chronic Obstructive Pulmonary Disease (COPD): Yes - Neurological HX Cerebrovascular Accident: Yes - HEENT Hx HEENT Disorder: Yes Hx Cataracts: Yes Other/Comment: double vision to the left eye that is patched for saftey - Renal Hx Renal Failure: Yes (ESRD/ hemo 3 days) - Endocrine/Metabolic Hx Diabetes Mellitus Type 2: Yes - Hematological/Oncological Hx Blood Disorders: No - Integumentary Hx Dermatological Disorder: Yes (swollen left hand) - Musculoskeletal/Rheumatological Hx Falls: No - Gastrointestinal Hx Gastrointestinal Disorders: No - Genitourinary/Gynecological Hx Genitourinary Disorders: Yes Hx Reproductive Disorders: No - Psychiatric Hx Psychophysiologic Disorder: No Hx Substance Use: No - Surgical History Hx Cataract Extraction: Yes (RT.EYE) Hx Vascular Surgery: Yes (A/V FISTULA LEFT ARM) Hx Vascular Access Device: Yes (DIALYSIS ACCESS) - Anesthesia Hx Anesthesia: Yes Hx Anesthesia Reactions: No Hx Malignant Hyperthermia: No - Suicidal Assessment Feels Threatened In Home Enviroment: No Family/Social History Family/Social History: No Known Family HX Smoking Status: Former Smoker Hx Alcohol Use: Yes (occasional) Hx Substance Use: No Allergies/Home Meds Allergies/Adverse Reactions: Allergies No Known Allergies Allergy (Verified 07/09/17 21:18) Review of Systems - Physician Review All systems were reviewed & negative as marked: Yes - Review of Systems Constitutional: absent: Fevers Respiratory: absent: SOB Cardiovascular: absent: Chest Pain Physical Exam Vital Signs Temp Pulse Resp BP Pulse Ox 11/08/17 16:05 97.0 F L 57 L 20 137/62 98 11/08/17 14:24 98.9 F 60 20 115/50 L 94 L - Systems Exam Head: Present: Normocephalic Pupils: Present: PERRL Mouth: Present: Moist Mucous Membranes Neck: No: MIDLINE TENDERNESS Respiratory/Chest: Present: Clear to Auscultation Cardiovascular: Present: Regular Rate and Rhythm Abdomen: No: Tenderness Back: No: CVA Tenderness Upper Extremity: Present: NORMAL PULSES Lower Extremity: Present: Tenderness (L foot, dressing C/D/I) Neurological: Present: GCS=15 Psychiatric: Present: Alert Medical Decision Making ED Course and Treatment: Vancomycin initiated for diabetic skin structure infection. Will require transfer to [facility] for further treatment while obtaining inpatient dialysis. 11/08/17 14:57 EKG reviewed, shows Sinus rhythm [address] elevations. No T wave inversions. 11/08/17 16:25 CXR reviewed, shows: LUNGS: The lungs are well inflated. There is moderate pulmonary venous congestion. No focal consolidation. PLEURA: No significant pleural effusion identified, no pneumothorax apparent. CARDIOVASCULAR: There is moderate cardiomegaly. Atherosclerotic aortic arch calcifications are present. OSSEOUS STRUCTURES: No significant abnormalities. VISUALIZED UPPER ABDOMEN: Normal. OTHER FINDINGS: None. IMPRESSION: Moderate cardiomegaly and pulmonary venous congestion. No acute findings. - Lab Interpretations Lab Results: 11/08/17 15:12 11/08/17 15:12 Lab Results 11/08/17 15:40: Blood Type O POSITIVE, Antibody Screen Negative, BBK History Checked Patient has bt 11/08/17 15:12: Sodium 146, Potassium 4.0, Chloride 96 L, Carbon Dioxide 35 H, Anion Gap 19, BUN 47 H, Creatinine 6.4 H, Est GFR ( Amer) 10, Est GFR ( Non-Af Amer) 8, Random Glucose 74, Calcium 8.4, Total Bilirubin 0.7, AST 26, ALT 29, Alkaline Phosphatase 84, Total Protein 6.6, Albumin 3.6, Globulin 3.0, Albumin/Globulin Ratio 1.2 11/08/17 15:12: PT 13.0 H, INR 1.14 H, APTT 38.1 H 11/08/17 15:12: WBC 7.4, RBC 2.83 L, Hgb 8.2 L D, Hct 25.6 L, MCV 90.5 D, MCH 29.0, MCHC 32.0, RDW 14.7 H, Plt Count 175, MPV 10.5, Gran % 60.2, Lymph % (Auto ) 29.6, Becker % (Auto) 7.5 H, Eos % (Auto) 2.4, Baso % (Auto) 0.3, Gran # 4.47, Lymph # (Auto) 2.2, Becker # (Auto) 0.6, Eos # (Auto) 0.2, Baso # (Auto) 0.02, ESR 87 H - RAD Interpretation Radiology Orders: 11/08/17 14:42 CHEST PORTABLE [RAD] Stat FOOT LEFT 3 VIEWS ROUTINE [RAD] Stat - Medication Orders Current Medication Orders: Discontinued Medications Vancomycin HCl (Vancomycin 1gm) 1 gm in 250 mls @ 167 mls/hr IVPB STAT STA PRN Reason: Protocol Stop: 11/08/17 16:11 Last Admin: 11/08/17 15:28 Dose: 167 mls/hr eMAR Start Stop Document 11/08/17 15:28 OCS (Rec: 11/08/17 15:28 [id number] Intravenous Solution Start Date 11/08/17 Start Time 15:28 End Date 11/08/17 End time 16:58 Total Infusion Time 90 Morphine Sulfate (Morphine) 2 mg IVP STAT STA Stop: 11/08/17 14:44 Last Admin: 11/08/17 15:28 Dose: 2 mg MAR Pain Assessment Document 11/08/17 15:28 OCS (Rec: 11/08/17 15:28 [id number]) Pain Reassessment Is this a pain reassessment? No Sleep Is patient sleeping during reassessment? No Presence of Pain Presence of Pain Yes Pain Scale Used Pain Scale Used Numeric Location Left, Right or Bilateral Left Pain Location Body Site Foot Description Description Constant Intensity of Pain at present 10 Pain Behavior Irritability Facial Grimacing Aggravating Factors ADL's IVP Administration Document 11/08/17 15:28 OCS (Rec: 11/08/17 15:28 [id number]) Charges for Administration # of IVP Administrations 1 Disposition/Present on Arrival - Present on Arrival Any Indicators Present on Arrival: Yes History of DVT/PE: No History of Uncontrolled Diabetes: Yes Urinary Catheter: No History of Decub. Ulcer: No History Surgical Site Infection Following: None - Disposition Have Diagnosis and Disposition been Completed?: Yes Diagnosis: Diabetic foot infection, ESRD (end stage renal disease) Disposition: Transfer [facility] Disposition Time: 15:56 Patient Plan: Transfer To Condition: [facility] Forms: [employer] (Austrian)
[2017-11-08 15:35] LABS: BASO # 0.02 K/mm3 (0.0-2.0); BASO % 0.3 % (0.0-3.0); EOS # 0.2 (0.0-0.7); EOS % 2.4 % (1.5-5.0); GRAN # 4.47 (1.4-6.5); GRAN % 60.2 % (50.0-68.0); HEMOGLOBIN 8.2 g/dL (14.0-18.0); LYMPH # 2.2 (1.2-3.4); LYMPH % 29.6 % (22.0-35.0); MEAN CELL VOLUME 90.5 fl (80.0-105.0); MEAN PLATELET VOLUME 10.5 fl (7.0-11.0); MONO # 0.6 (0.1-0.6); MONO % 7.5 % (1.0-6.0); RBC 2.83 10^6/uL (3.5-6.1); RED CELL DISTRIBUTION WIDTH 14.7 % (11.5-14.5); WHITE BLOOD COUNT 7.4 10^3/ul (4.5-11.0)
[2017-11-08 15:44] LABS: ALB/GLOB RATIO 1.2 (1.1-1.8); ALBUMIN 3.6 g/dL (3.0-4.8); CALCIUM 8.4 mg/dL (8.4-10.5)
[2017-11-08] MEDS ORDERED: Piperacill/Tazo 4.5gm in NS 4.5 GM/100 ML BAG IVPB STA (15:45)
[2017-11-08 15:48] LABS: INR 1.14 (0.93-1.08); PARTIAL THROMBOPLASTIN TIME 38.1 Seconds (25.1-36.5)
[2017-11-08 16:08] VITALS: BP 137/62; PULSE 57; TEMP 97; O2SAT 98
--- NOTE | 2017-11-08 16:23 | RAD ---
HISTORY: r/o PNA COMPARISON: 07/16/2017. FINDINGS: LUNGS: The lungs are well inflated. There is moderate pulmonary venous congestion. No focal consolidation. PLEURA: No significant pleural effusion identified, no pneumothorax apparent. CARDIOVASCULAR: There is moderate cardiomegaly. Atherosclerotic aortic arch calcifications are present. OSSEOUS STRUCTURES: No significant abnormalities. VISUALIZED UPPER ABDOMEN: Normal. OTHER FINDINGS: None. IMPRESSION: Moderate cardiomegaly and pulmonary venous congestion. No acute findings.
--- NOTE | 2017-11-09 09:00 | CARD ---
APPROVED REPORT EKG Measurement Heart [id number] [place] [id number] <Conclusion> Sinus bradycardia with 1st degree AV block Septal infarct, age undetermined NSSTW changes Prolonged QT
--- NOTE | 2017-11-09 12:37 | RAD ---
PROCEDURE: Left Foot Radiographs. HISTORY: toe ulcers/erythema COMPARISON: 10/25/2017 FINDINGS: BONES: Transverse fracture proximal 5th proximal phalangeal diaphysis is again noted. No definite callus appreciated. No other fracture identified. Status post amputation of 3rd digit at the level of the distal 3rd metatarsal diaphysis. No osseous erosion or periosteal reaction appreciated. JOINTS: Normal. SOFT TISSUES: Vascular calcification noted. OTHER FINDINGS: None. IMPRESSION: Fracture 5th proximal phalanx without definite callus formation. Amputation distal 3rd metatarsal.
== END 2017-11-08 16:51 | disposition short-term general hospital (02) ==
LOC: ED 12:54
DX: E11.621 Type 2 diabetes mellitus with foot ulcer (principal); L97.529 Non-pressure chronic ulcer of other part of left foot with unspecified severity; I12.0 Hypertensive chronic kidney disease with stage 5 chronic kidney disease or end stage renal disease; N18.6 End stage renal disease; Z99.2 Dependence on renal dialysis; I50.9 Heart failure, unspecified; Z87.891 Personal history of nicotine dependence
CPT/HCPCS: 71045; 73630; 80053; 82948; 85025; 85610; 85651; 85730; 86140; 86850; 86900; 87040; 93005; 96365; 96375; 99284; J2270

== ENCOUNTER 2017-11-25 08:17 | Inpatient (IN) | payer MEDICARE, BC ==
[2017-11-25] MEDS ORDERED: Piperacill/Tazo 4.5gm in NS 4.5 GM/100 ML BAG IVPB STA (08:20)
[2017-11-25] MEDS ORDERED: Sodium Chloride 0.9% 500 ML IV STA (08:23)
--- NOTE | 2017-11-25 08:34 | ED PDOC ---
Arrival/HPI - General Time Seen by Provider: 11/25/17 08:20 Historian: EMS - History of Present Illness Narrative History of Present Illness (Text): 11/25/17 08:06 80 year old male, with past medical history of CVA, insulin dependent diabetes, hypertension, hyperlipidemia, dementia, BPH and ESRD on hemodialysis (M/W/F), presents to the Emergency department via EMS for evaluation of tremors and lethargy since this morning. As per EMS, patient woke up with tremors and expressed worsening lethargy from baseline and was brought to the Emergency department for evaluation. EMS reports warm to touch skin but was unable to obtain any other history. Upon arrival to the Emergency department, patient appears lethargic and only responds to verbal stimuli. HPI and ROS limited due to patient's limited response. PMD: Dr. Martines Outpt cardio: Dr. Wilson Time/Duration: Prior to Arrival Symptom Onset: Gradual Activities at Onset: Light Context: Home Past Medical History - Provider Review Nursing Documentation Reviewed: Yes - Infectious Disease Hx of Infectious Diseases: None - Cardiac Hx Congestive Heart Failure: Yes Hx Hypertension: Yes - Pulmonary Hx Chronic Obstructive Pulmonary Disease (COPD): Yes - Neurological HX Cerebrovascular Accident: Yes - HEENT Hx HEENT Disorder: Yes Hx Cataracts: Yes Other/Comment: double vision/decreased vision to the left eye;decreased hearing - Renal Hx Renal Disorder: Yes - Endocrine/Metabolic Hx Diabetes Mellitus Type 2: Yes - Hematological/Oncological Hx Blood Disorders: No - Integumentary Hx Dermatological Disorder: Yes (swollen left hand) - Musculoskeletal/Rheumatological Hx Falls: No - Gastrointestinal Hx Gastrointestinal Disorders: No - Genitourinary/Gynecological Hx Genitourinary Disorders: Yes Hx Reproductive Disorders: No - Psychiatric Hx Substance Use: No - Surgical History Hx Cataract Extraction: Yes (RT.EYE) Hx Vascular Surgery: Yes (A/V FISTULA LEFT ARM) Hx Vascular Access Device: Yes (DIALYSIS ACCESS) - Anesthesia Hx Anesthesia: Yes Hx Anesthesia Reactions: No Hx Malignant Hyperthermia: No - Suicidal Assessment Feels Threatened In Home Enviroment: No Family/Social History - Physician Review Nursing Documentation Reviewed: Yes Family/Social History: No Known Family HX Smoking Status: Former Smoker Hx Alcohol Use: Yes Hx Substance Use: No Allergies/Home Meds Allergies/Adverse Reactions: Allergies No Known Allergies Allergy (Verified 11/08/17 17:26) Review of Systems - Review of Systems Systems not reviewed;Unavailable: Altered Mental Status Constitutional: Fevers, Other (Lethargy) Neurological: Other (Tremor) Physical Exam Vital Signs Reviewed: Yes Vital Signs Temp Pulse Resp BP Pulse Ox 11/25/17 08:18 100.9 F H 55 L 20 161/71 H 86 L Temperature: Febrile Blood Pressure: Hypertensive Pulse: Bradycardic Respiratory Rate: Normal Appearance: Positive for: Well-Appearing Pain Distress: None Mental Status: Positive for: Lethargic Finger Stick Blood Glucose: 155 - Systems Exam Head: Present: Atraumatic, Normocephalic Pupils: Present: Other (Reactive and 1mm ) Extroacular Muscles: Present: EOMI Conjunctiva: Present: Normal Mouth: Present: Dry Respiratory/Chest: Present: Clear to Auscultation, Good Air Exchange. No: Respiratory Distress, Accessory Muscle Use Cardiovascular: Present: Regular Rate and Rhythm, Normal S1, S2. No: Murmurs Abdomen: No: Tenderness, Distention, Peritoneal Signs Upper Extremity: Present: Normal Inspection, Other (left av graft intact, clean , no erythema or discharge). No: Cyanosis, Edema Lower Extremity: Present: Edema (lower extremity trace non-pitting edema ) Neurological: Present: GCS=15, CN II-XII Intact Skin: Present: Warm, Dry, Normal Color. No: Rashes Psychiatric: Present: Alert (responds to verbal stimuli), Lethargic Medical Decision Making ED Course and Treatment: 11/25/17 08:16 Impression: 80 year old male presents to the Emergency department for evaluation of lethargy and tremor. Differential Diagnosis included but are not limited to: AMS secondary to sepsis vs. electrolyte abnormality less likely CVA Plan: -- VBG -- CT of Head -- EKG -- Labs -- Chest X-ray -- IV Fluids -- Tylenol -- Blood Culture -- Urine Culture -- Urinalysis -- Reassess and disposition Prior Visits: Notes and results from previous visits were reviewed. Progress Notes: 11/25/17 08:16 EKG: Ordered, reviewed, and independently interpreted the EKG. Rate : 59 BPM Rhythm : Sinus bradycardia Interpretation : No ST-segment elevations or depressions, no T-wave inversions. Q waves V1 and V2. 11/25/17 08:54 and daughter present at bedside. As per family, patient is on IV antibiotics for left foot infection and receives vancomycin during dialysis. Family informs patient normally does not verbally express much secondary to history of CVA. Family informs patient is expressing increased somnolence from baseline and a cough. 11/25/17 08:[address] Espino, Podiatry Resident, who is aware and agrees with Emergency department management plan and will evaluate patient at bedside. 11/25/17 09:42 CT of head reviewed by radiologist, shows: No acute intracranial abnormality. Moderate chronic microangiopathic changes and mild age-related global parenchymal volume loss. Old lacunar infarctions in the left basal ganglia and will radiata. 11/25/17 09:42 Chest X-ray reviewed, shows bilateral infiltrate. Possible fluid overload versus pneumonia. 11/25/17 09:47 Patient treated empirically with broad spectrum antibiotics. Lactic Acid normal. Hemodynamically stable. He only received 100ml NS which was then discontinued while treating with antibiotics. He is more aware and talking at baseline as per family 11/25/17 09:[address] Meza, hospitalist vitreo retinal surgeon, who is aware and agrees with Emergency department management plan, accepts patient admission for further observation. - Lab Interpretations Lab Results: 11/25/17 08:15 11/25/17 08:15 Lab Results 11/25/17 08:15: TSH 3rd Generation 4.89 H 11/25/17 08:15: Sodium 144, Chloride 100, Potassium 4.0, Carbon Dioxide 30, Anion Gap 19, BUN 44 H, Creatinine 6.5 H, Est GFR ( Amer) 10, Est GFR ( Non-Af Amer) 8, Random Glucose 150 H, Calcium 8.3 L, Phosphorus 3.8, Magnesium 1.8, Total Bilirubin 0.6, AST 23, ALT 20, Alkaline Phosphatase 78, Troponin I 0.04 D, NT-Pro-B Natriuret Pep 48701 H, Total Protein 6.9, Albumin 3.9, Globulin 3.1, Albumin/Globulin Ratio 1.3 11/25/17 08:15: pO2 64 H, VBG pH 7.43, VBG pCO2 53.0, VBG HCO3 35.2 H, VBG Total CO2 36.8 H, VBG O2 Sat (Calc) 89.4 H, VBG Base Excess 9.1 H, VBG Potassium 4.0, Sodium 143.0, Chloride 105.0, Glucose 160 H, Lactate 1.7, FiO2 21.0, Venous Blood Potassium 4.0 11/25/17 08:15: PT 12.5, INR 1.09 H, APTT 35.1 11/25/17 08:15: WBC 15.3 H D, RBC 3.17 L, Hgb 9.0 L, Hct 29.3 L, MCV 92.4, MCH 28.4, MCHC 30.7 L, RDW 17.4 H, Plt Count 186, MPV 11.1 H, Gran % 87.6 H, Lymph % (Auto) 8.2 L, [place] % (Auto) 3.5, Eos % (Auto) 0.6 L, Baso % (Auto) 0.1, Gran # 13.42 H, Lymph # (Auto) 1.3, [place] # (Auto) 0.5, Eos # (Auto) 0.1, Baso # (Auto ) 0.02 - RAD Interpretation Radiology Orders: 11/25/17 08:20 CHEST PORTABLE [RAD] Stat 11/25/17 08:24 HEAD W/O CONTRAST [CT] Stat 11/25/17 09:10 FOOT LEFT 3 VIEWS ROUTINE [RAD] Stat Aircraft Restorer: Radiologist - EKG Interpretation Interpreted by ED Physician: Yes Type: 12 lead EKG - Medication Orders Current Medication Orders: Vancomycin HCl (Vancomycin 1gm) 1 gm in 250 mls @ 167 mls/hr IVPB STAT STA PRN Reason: Protocol Stop: 11/25/17 10:40 Last Admin: 11/25/17 09:43 Dose: 167 mls/hr eMAR Start Stop Document 11/25/17 09:43 CASSIE (Rec: 11/25/17 09:43 [id number]) Intravenous Solution Start Date 11/25/17 Start Time 09:43 Discontinued Medications Acetaminophen (Tylenol 650 Mg Supp) 650 mg RC STAT STA Stop: 11/25/17 08:24 Last Admin: 11/25/17 08:58 Dose: Sodium Chloride (Sodium Chloride 0.9%) 500 mls @ 999 mls/hr IV .Q31M STA Stop: 11/25/17 08:53 Last Admin: 11/25/17 08:46 Dose: 999 mls/hr eMAR Start Stop Document 11/25/17 08:46 CASSIE (Rec: 11/25/17 08:47 [email or web address] [id number]) Intravenous Solution Start Date 11/25/17 Start Time 08:46 End Date 11/25/17 End time 09:00 Total Infusion Time 14 Piperacillin Sod/Tazobactam Sod (Zosyn 4.5 Gm In Ns 100ml) 4.5 gm in 100 mls @ 200 mls/hr IVPB STAT STA PRN Reason: Protocol Stop: 11/25/17 08:49 Last Admin: 11/25/17 08:45 Dose: 200 mls/hr eMAR Start Stop Document 11/25/17 08:45 CASSIE (Rec: 11/25/17 08:58 [email or web address] [id number]) Intravenous Solution Start Date 11/25/17 Start Time 08:45 - Scribe Statement The provider has reviewed the documentation as recorded by the Scribe Fei Roe. All medical record entries made by the Scribe were at my direction and personally dictated by me. I have reviewed the chart and agree that the record accurately reflects my personal performance of the history, physical exam, medical decision making, and the department course for this patient. I have also personally directed, reviewed, and agree with the discharge instructions and disposition. Disposition/Present on Arrival - Present on Arrival Any Indicators Present on Arrival: No History of DVT/PE: No History of Uncontrolled Diabetes: No Urinary Catheter: No History Surgical Site Infection Following: None - Disposition Have Diagnosis and Disposition been Completed?: Yes Diagnosis: Diabetic foot infection, CHF (congestive heart failure), Pneumonia, Sepsis Disposition: HOSPITALIZED Disposition Time: 09:56 Patient Plan: Admission Condition: GUARDED Discharge Instructions (ExitCare): Heart Failure (ED), Sepsis (ED)
[2017-11-25 08:39] LABS: BASO # 0.02 K/mm3 (0.0-2.0); BASO % 0.1 % (0.0-3.0); EOS # 0.1 (0.0-0.7); EOS % 0.6 % (1.5-5.0); GRAN # 13.42 (1.4-6.5); GRAN % 87.6 % (50.0-68.0); LYMPH # 1.3 (1.2-3.4); LYMPH % 8.2 % (22.0-35.0); MEAN CELL VOLUME 92.4 fl (80.0-105.0); MEAN CORPUSCULAR HEMOGLOBIN 28.4 pg (25.0-35.0); MEAN CORPUSCULAR HGB CONC 30.7 g/dl (31.0-37.0); MEAN PLATELET VOLUME 11.1 fl (7.0-11.0); MONO # 0.5 (0.1-0.6); MONO % 3.5 % (1.0-6.0); RBC 3.17 10^6/uL (3.5-6.1); RED CELL DISTRIBUTION WIDTH 17.4 % (11.5-14.5); WHITE BLOOD COUNT 15.3 10^3/ul (4.5-11.0)
[2017-11-25 08:40] LABS: VENOUS BLOOD GAS BASE EXCESS 9.1 mmol/L (0.0-2.0); VENOUS BLOOD GAS PO2 64 mm/Hg (30-55); VENOUS BLOOD PH 7.43 (7.32-7.43)
[2017-11-25 08:49] LABS: INR 1.09 (0.93-1.08); PARTIAL THROMBOPLASTIN TIME 35.1 Seconds (25.1-36.5); PROTHROMBIN TIME 12.5 SECONDS (9.4-12.5)
[2017-11-25 08:59] LABS: TROPONIN I 0.04 ng/mL
[2017-11-25 09:01] LABS: ALB/GLOB RATIO 1.3 (1.1-1.8); ALBUMIN 3.9 g/dL (3.0-4.8); CALCIUM 8.3 mg/dL (8.4-10.5)
[2017-11-25] MEDS ORDERED: Vancomycin 1gm in NS 250ml 1 GM/250 ML BAG IVPB STA (09:11)
--- NOTE | 2017-11-25 09:35 | CT ---
Date of service: 11/25/2017 PROCEDURE: CT HEAD WITHOUT CONTRAST. HISTORY: Altered mental status COMPARISON: 07/04/2017. TECHNIQUE: Axial computed tomography images were obtained through the head/brain without intravenous contrast. Radiation dose: Total exam DLP = 932.45 mGy-cm. This CT exam was performed using one or more of the following dose reduction techniques: Automated exposure control, adjustment of the mA and/or kV according to patient size, and/or use of iterative reconstruction technique. FINDINGS: HEMORRHAGE: No intracranial hemorrhage. BRAIN: There are old lacunar infarctions in the left basal ganglia and will radiata. There are moderate chronic microangiopathic changes. There is no mass, mass effect or abnormal extra-axial fluid collection. There are coarse atherosclerotic calcifications in the cavernous carotid arteries. VENTRICLES: There is moderate age-related global parenchymal volume loss and proportionate enlargement of the ventricles and cortical sulci. CALVARIUM: The skull base and calvarium are normal. PARANASAL SINUSES: Chronic maxillary and left frontal sinusitis. Retention cyst/ polyp in the right maxillary sinus. MASTOID AIR CELLS: Predominantly clear. OTHER FINDINGS: None. IMPRESSION: No acute intracranial abnormality. Moderate chronic microangiopathic changes and mild age-related global parenchymal volume loss. Old lacunar infarctions in the left basal ganglia and will radiata.
--- NOTE | 2017-11-25 10:14 | RAD ---
Date of service: 11/25/2017 PROCEDURE: Left Foot Radiographs. HISTORY: r/o osteomyelitis COMPARISON: None. FINDINGS: BONES: Status post surgical amputation of the 3rd toe. There is an age indeterminate fracture in the base of the proximal phalanx of the little toe. There is diffuse bone demineralization. There is no bone destruction. JOINTS: There is mild degenerative osteoarthrosis in the 1st MTP joint. SOFT TISSUES: Normal. OTHER FINDINGS: There are atherosclerotic vascular calcifications. IMPRESSION: Status post surgical amputation of the 3rd toe. No radiographic evidence for osteomyelitis. Age indeterminate fracture in the base of the proximal phalanx of the 5th toe.
--- NOTE | 2017-11-25 10:25 | RAD ---
Date of service: 11/25/2017 HISTORY: Sepsis Patient COMPARISON: 11/08/2017 FINDINGS: LUNGS: There are low lung volumes. There is mild pulmonary venous congestion. There are reticular nodular opacities in both lower lobes. PLEURA: No significant pleural effusion identified, no pneumothorax apparent. CARDIOVASCULAR: Persistent mild cardiomegaly. OSSEOUS STRUCTURES: No significant abnormalities. VISUALIZED UPPER ABDOMEN: Normal. OTHER FINDINGS: None. IMPRESSION: Reticular nodular opacities in the lower lobes could represent atypical pneumonitis or interstitial edema. Also noted is mild pulmonary venous congestion.
--- NOTE | 2017-11-25 13:38 | CP.PCM.HP ---
<RlAbelino - Last Filed: 11/25/17 15:29> History of Present Illness - History of Present Illness History of Present Illness: Medicine H/P, Dr Susana Shine, PGY - 2, IM CC: Subjective fevers HPI: 77 year old male with PMHx significant ESRD on HD MWF, insulin dependent diabetes mellitus, HTN, who presents to the ED for fevers and generalized fatigue. Patient was recently seen at [facility] for Osteomyelitis and was told to get vanco at his MWF dialysis sessions for six weeks. Today, patient has been febrile and has had a mild cough but no shortness of breath. CXR in ED was positive for possible pneumonitis or pna. Patient himself denies any complaints besides cough, feeling sleepy and wanting to go home. Review of Systems: 12 point ROS Obtained and negative except as per HPI PMD: Dr. Martines Outpt cardio: Dr. Wilson Podiatry: Dr. Becker/ Dr. Maher Allergies: NKDA Social History: Quit smoking 40 years ago; social alcohol; denies illicits PMHx: ESRD on HD MWF, IDDM, HLD, Dementia, BPH, HTN, GERD PSHx: L UE AVF, L hand 5th digit amputation following ischemia from AVF complication, L 3rd toe amputation 2017 Home Meds: Reviewed, as per MAR Family History: Non-contributory Present on Admission - Present on Admission Any Indicators Present on Admission: No Past Patient History - Infectious Disease Hx of Infectious Diseases: None - Past Medical History & Family History Past Medical History?: Yes - Past Social History Smoking Status: Former Smoker - CARDIAC Hx Congestive Heart Failure: Yes Hx Hypertension: Yes - PULMONARY Hx Chronic Obstructive Pulmonary Disease (COPD): Yes - NEUROLOGICAL HX Cerebrovascular Accident: Yes - HEENT Hx HEENT Problems: Yes Hx Cataracts: Yes Other/Comment: double vision/decreased vision to the left eye;decreased hearing - RENAL Hx Chronic Kidney Disease: Yes - ENDOCRINE/METABOLIC Hx Diabetes Mellitus Type 2: Yes - HEMATOLOGICAL/ONCOLOGICAL Hx Blood Disorders: No - INTEGUMENTARY Hx Dermatological Problems: Yes (swollen left hand) - MUSCULOSKELETAL/RHEUMATOLOGICAL Hx Falls: No - GASTROINTESTINAL Hx Gastrointestinal Disorders: No - GENITOURINARY/GYNECOLOGICAL Hx Genitourinary Disorders: Yes Hx Reproductive Disorders: No - PSYCHIATRIC Hx Substance Use: No - SURGICAL HISTORY Hx Cataract Extraction: Yes (RT.EYE) Hx Vascular Surgery: Yes (A/V FISTULA LEFT ARM) Hx Vascular Access Device: Yes (DIALYSIS ACCESS) - ANESTHESIA Hx Anesthesia: Yes Hx Anesthesia Reactions: No Hx Malignant Hyperthermia: No Meds Allergies/Adverse Reactions: Allergies Allergy/AdvReac Type Severity Reaction Status Date / Time No Known Allergies Allergy Verified 11/25/17 12:06 Physical Exam - Constitutional Appears: Well (Dialysis catheter A/V fistula on left arm - c/d without erythema) - Head Exam Head Exam: ATRAUMATIC, NORMAL INSPECTION, NORMOCEPHALIC - Eye Exam Eye Exam: EOMI, Normal appearance, PERRL Pupil Exam: NORMAL ACCOMODATION, PERRL - ENT Exam ENT Exam: Mucous Membranes Moist, Normal Exam - Neck Exam Neck exam: Positive for: Normal Inspection - Respiratory Exam Respiratory Exam: Decreased Breath Sounds, Clear to Auscultation Bilateral, NORMAL BREATHING PATTERN - Cardiovascular Exam Cardiovascular Exam: REGULAR RHYTHM - GI/Abdominal Exam GI & Abdominal Exam: Normal Bowel Sounds, Soft. absent: Tenderness - Extremities Exam Extremities exam: Positive for: normal inspection - Back Exam Back exam: NORMAL INSPECTION - Neurological Exam Neurological exam: Alert, CN II-XII Intact, Normal Gait, Oriented x3, Reflexes Normal - Psychiatric Exam Psychiatric exam: Normal Affect, Normal Mood - Skin Skin Exam: Dry, Intact, Normal Color, Warm Results - Vital Signs Recent Vital Signs: Last Vital Signs Temp 98.9 F 11/25/17 12:00 Pulse 63 11/25/17 12:00 Resp 18 11/25/17 12:00 BP 156/56 H 11/25/17 12:00 Pulse Ox 94 L 11/25/17 10:34 - Labs Result Diagrams: 11/25/17 08:15 11/25/17 08:15 Assessment & Plan - Assessment and Plan (Free Text) Assessment: 77 year old male with pertinent medical history of recent osteomyelitis, ESRD on HD MWF, IDDM, HLD, Dementia, BPH, HTN, GERD is presenting for generalized fatigue and fevers. Patient is septic with leukocytosis, fever, and source of infection in foot and/or in lungs. Lactic acid is negative, and there are no signs of end organ damage reflecting severe sepsis. Plan Sepsis, likely 2/2 Osteomyelitis VS PNA VS Dialysis AV Fistula - ID Consult - Dr. Boghosian - Merrem renally dosed Left foot infected ulcers - Podiatry consulted - Patient getting vanc at dialysis MWF - Duplex checked at [facility], do not need repeat right now ESRD on HD, [facility] - Lars Coleman - Dr. Fox on consult Hx HTN - Continue home norvasc 10mg PO daily, carvedilol 25mg PO BID, Hydralazine 100mg BID on MWF (dialysis days) Hydralazine 100mg TID on Tues/Thurs/Sat/Sun ( NON-dialysis days), losartan 100mg daily NOT on dialysis days (Tu/Thurs/ Sat/ Sun) Hx Diabetes - Accuchecks ACHS - RISS low, Home lantus 10 U HS - Consistent carb/renal dialysis/HH diet Hx Diabetic neuropathy gabapentin 100mg HS Hx BPH flomax 0.4mg daily Hx HLD - Continue lovaza, home med atorvastatin 40mg HS, home ASA 325 Dementia memantine 5mg daily donepezil 10mg HS Prophylaxis protonix 40mg PO daily heparin 5000u sc q12h <Opal Meza - Last Filed: 11/25/17 18:34> Results - Vital Signs Recent Vital Signs: Last Vital Signs Temp 99.3 F 11/25/17 17:53 Pulse 58 L 11/25/17 17:53 Resp 18 11/25/17 17:53 BP 164/63 H 11/25/17 17:53 Pulse Ox 94 L 11/25/17 17:53 - Labs Result Diagrams: 11/25/17 08:15 11/25/17 08:15 Attending/Attestation - Attestation I have personally seen and examined this patient.: Yes I have fully participated in the care of the patient.: Yes I have reviewed all pertinent clinical information: Yes Notes (Text): 11/25/17 18:26 77 year old male with past medical history of ESRD on HD (MWF), hypertension, diabetes and recent osteomyelitis on vancomycin during dialysis who was brought in by family for weakness and subjective fevers. In ER he was found to have fever 100.9 and leukocytosis 15.3. CXR shows reticular nodular opacities in the lower lobes which could represent atypical pneumonitis or interstitial edema and mild pulmonary venous congestion. Foot xray shows s/p surgical amputation of the 3rd toe with no radiographic evidence of osteomyelitis. Will request podiatry and ID evaluation. Nephrology also requested for hemodialysis. Continue with antibiotics while awaiting cultures. UA/Ucx pending as well. Continue with home medications for hypertension except for coreg for now secondary to sinus bradycardia. He is on insulin ss and levemir for diabetes. Family is at bedside and questions were answered. Opal Meza MD Hospitalist.
[2017-11-25 14:24] VITALS: BMI 33.7
[2017-11-25] MEDS ORDERED: Pneumococcal 23-Valent Vaccine IM ONE (14:24)
--- NOTE | 2017-11-25 18:04 | CP.PCM.CON ---
History of Present Illness - History of Present Illness History of Present Illness: Podiatry Consult Note: Dr. Maher 77 year old male with PMHx of IDDM, HTN, HLD, BPH, Dementia, GERD and ESRD was evaluated at bedside for left foot superficial ulcerations on the dorsal aspect of the left toes x4. Patient is seen in the ED along with his and daughter. Patient presents to the ED for tremors and lethargy since the morning. Patient reports of subjective fever yesterday and had temperature reading around 100. States that ulcerations started in mid October. Reports that when he took his shoes off, he noticed blisters on his toes which popped by themselves. States he had just seen Dr. Maher last week and nurse has been coming to his house to do dressing changes. Denies of having any N/V/SOB/CP/ headache. Denies of any other pedal complains at this time. PMHx: ESRD, IDDM, HLD, Dementia, BPH, HTN, GERD PSHx: left UE AVF, left hand 5th digit amputation following ischemia from AVF complication, left third toe amputation 2016 Allergies: N.K.D.A Review of Systems - Constitutional Constitutional: As Per HPI Past Patient History - Infectious Disease Hx of Infectious Diseases: None - Past Medical History & Family History Past Medical History?: Yes - Past Social History Smoking Status: Former Smoker - CARDIAC Hx Congestive Heart Failure: Yes Hx Hypertension: Yes - PULMONARY Hx Chronic Obstructive Pulmonary Disease (COPD): Yes - NEUROLOGICAL HX Cerebrovascular Accident: Yes - HEENT Hx HEENT Problems: Yes Hx Cataracts: Yes Other/Comment: double vision/decreased vision to the left eye;decreased hearing - RENAL Hx Chronic Kidney Disease: Yes - ENDOCRINE/METABOLIC Hx Diabetes Mellitus Type 2: Yes - HEMATOLOGICAL/ONCOLOGICAL Hx Blood Disorders: No - INTEGUMENTARY Hx Dermatological Problems: Yes (swollen left hand) - MUSCULOSKELETAL/RHEUMATOLOGICAL Hx Falls: No - GASTROINTESTINAL Hx Gastrointestinal Disorders: No - GENITOURINARY/GYNECOLOGICAL Hx Genitourinary Disorders: Yes Hx Reproductive Disorders: No - PSYCHIATRIC Hx Substance Use: No - SURGICAL HISTORY Hx Cataract Extraction: Yes (RT.EYE) Hx Vascular Surgery: Yes (A/V FISTULA LEFT ARM) Hx Vascular Access Device: Yes (DIALYSIS ACCESS) - ANESTHESIA Hx Anesthesia: Yes Hx Anesthesia Reactions: No Hx Malignant Hyperthermia: No Meds Allergies/Adverse Reactions: Allergies Allergy/AdvReac Type Severity Reaction Status Date / Time No Known Allergies Allergy Verified 11/25/17 12:06 - Medications Medications: Current Medications Amlodipine Besylate (Norvasc) 10 mg PO DAILY [facility] Aspirin (Aspirin) 325 mg PO DAILY [facility] Atorvastatin Calcium (Lipitor) 40 mg PO HS [facility] Calcium Acetate (Phoslo) 667 mg PO TID [facility] Last Admin: 11/25/17 16:13 Dose: Not Given Calcium Acetate (Phoslo) 1,334 mg PO WM [facility] Carvedilol (Coreg) 25 mg PO 08,1999 [facility] Donepezil HCl (Aricept) 10 mg PO HS [facility] Doxazosin Mesylate (Cardura) 2 mg PO BID [facility] Gabapentin (Neurontin) 100 mg PO HS [facility] PRN Reason: Protocol Heparin Sodium (Porcine) (Heparin) 5,000 units SC Q12 [facility] PRN Reason: Protocol Hydralazine HCl (Apresoline) 100 mg PO BID [facility] Meropenem 250 mg/ Sodium (Chloride) 100 mls @ 100 mls/hr IVPB Q12H [facility] PRN Reason: Protocol Stop: 12/04/17 22:01 Insulin Detemir (Levemir) 5 unit SC ACBHS [facility] Insulin Human Regular (Humulin R Low) 0 units SC ACHS [facility] PRN Reason: Protocol Lactobacillus Acidophilus (Bacid Acidophilus) 1 cap PO BID [facility] Losartan Potassium (Cozaar) 100 mg PO DAILY [facility] Memantine (Namenda) 5 mg PO DAILY [facility] [id number] Ethyl Esters (Lovaza) 1 gm PO BID [facility] Pantoprazole Sodium (Protonix Ec Tab) 40 mg PO DAILY [facility] Tamsulosin HCl (Flomax) 0.4 mg PO DAILY [facility] Physical Exam - Constitutional Appears: Well, Non-toxic, No Acute Distress - Head Exam Head Exam: ATRAUMATIC, NORMOCEPHALIC - Extremities Exam Additional comments: Bilateral LE focused Exam: VASC: DP/PT pulses are very faintly palpable 1/4 bilaterally, Cap refill time slightly delayed > 3 sec, skin temperature: warm to cool from proximal to distal , mild non-pitting edema noted on the dorsum of the left foot DERM: Superficial epidermal lysis at the site of the previous bullae with hyperpigmented changes on the dorsum of the left 5th digit, wound bed is completely ischemic on the dorsum of the 5th digit - dry, no active drainage, no malodor, no tunneling or tracking, no purulent drainage, localized erythema noted at the dorsum of the left forefoot Macerated superficial ulceration noted on the left dorsal 4th digit measuring approx 1cm x 1cm, no tunneling, no undermining, no probe to bone, no drainage, no odor noted. Small superficial ulceration noted to the dorsum of the 2nd left digit measuring approximately .1x .1 cm with no erythema, no tunneling, no undermining , no probe to bone, no drainage, no odor noted. No clinical signs of infection noted on the left foot. NEURO: Protective sensation and gross sensation decreased ORTHO: Pain present during palpation of the digits particularly the 5th digit Results - Vital Signs Recent Vital Signs: Last Vital Signs Temp 99.3 F 11/25/17 17:53 Pulse 58 L 11/25/17 17:53 Resp 18 11/25/17 17:53 BP 164/63 H 11/25/17 17:53 Pulse Ox 94 L 11/25/17 17:53 - Labs Result Diagrams: 11/25/17 08:15 11/25/17 08:15 Assessment & Plan - Assessment and Plan (Free Text) Assessment: 77 year old male with PMHx of IDDM, HTN, HLD, BPH, Dementia, GERD and ESRD was evaluated in the ED for superficial non-infected ulcerations on the dorsal aspect of the digits of the left foot x4. Plan: Patient seen and evaluated Discussed plan with attending Dr. Maher Labs, vitals and charts reviewed - afebrile, 15.3 Wound cultures not taken as the ulcers are very superficial. X-rays of left foot ordered/reviewed - Periosteal reaction with cortical break at the proximal phalanx of the left 5th digit - no subcutaneous emphysema noted Foot cleansed with saline and dressed with xeroform and DSD Arterial duplex ordered Thank you for the podiatry consult and allowing to take part in patient care Podiatry to follow patient while in-house
[2017-11-25] MEDS: Insulin Reg-LOW-Coverage SC SCH ×2 (18:10→21:57)
[2017-11-25] MEDS: Lactobacillus Acidophilus 500 MU Cap PO SCH (18:22)
[2017-11-25] MEDS: Omega-3-Acid Ethyl Esters 1 GM Cap PO SCH (18:22)
[2017-11-25] MEDS: Insulin Detemir 100 units/ml Vial (Levemir) SC SCH (21:58)
--- NOTE | 2017-11-26 00:43 | CON ---
DATE: 11/25/2017 LOCATION: The patient was seen in room 272, bed 2. CHIEF COMPLAINT: Left foot infection times several days. HISTORY OF PRESENT ILLNESS: A 77-year-old male with obesity with a BMI of 33 with end-stage renal disease, on hemodialysis; hypertension; diabetes; history of morbid obesity with BMI of 41 with chronic obstructive lung disease; chronic low back pain; history of VRE in a bone culture in 2017; history of E. Coli, which is pansensitive; left foot infection in the past who is now admitted with diagnoses of sepsis and left foot infection. Infectious Disease consultation requested. REVIEW OF SYSTEMS: Reveals the patient has had fevers. He is short of breath. He has no cough. No abdominal pain, diarrhea or constipation. No bright red blood per rectum. No melena. A 12-point review of system is noted were negative with the exception of the HPI. PAST MEDICAL HISTORY: Significant for history of diabetes mellitus, hypertension, chronic obstructive lung disease, end-stage renal disease, on hemodialysis, chronic back pain, VRE in a bone culture in 2017, sensitive E. Coli and left foot infection. PAST SURGICAL HISTORY: Significant for left AV fistula, right eye surgery and a lumbar disc surgery. ALLERGIES: THE PATIENT HAS NO KNOWN ALLERGIES TO ANY ANTIBIOTICS. MEDICATIONS AT HOME: Include hydralazine, amlodipine, Flomax, omega, Protonix, losartan, atorvastatin, Lipitor and aspirin. PHYSICAL EXAMINATION: The patient is in bed, appearing weak and with a temperature of 100.9, heart rate of 67, blood pressure is 160/70, respiratory rate of 20. O2 saturation of 86% on room air and a BMI of 33. HEENT: Unremarkable. NECK: Supple. LUNGS: Have decreased breath sounds. HEART: Normal S1, S2. ABDOMEN: Soft, nontender. No organomegaly. No rebound or guarding. No masses. EXTREMITIES: Examination of the left foot reveals significant erythema and edema and the patient's left fifth toe is gangrenous. Rest of the foot is erythematous and hot. Pulses are intact. LABORATORY EXAMINATION: Reveals a white count of 15,300, hemoglobin of 9, platelets of 186. Coagulation is noted. Blood gases are reviewed. BUN of 44, creatinine of 6.5. The BNP is over 18,000 and microbiology is pending. The patient had an x-ray of the foot, which reveals surgical amputation of the third toe. No evidence of osteomyelitis. The patient had a CT scan of the head, which is reported to be negative and the patient also had a chest x-ray, which is consistent with congestion. Emergency room chart is reviewed. history and physical examination is reviewed. 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 We will treat the patient with intermittent vancomycin and meropenem and podiatric consultation, vascular evaluation. Procalcitonin has been ordered. Cultures have been ordered, blood in urine and no drainage from the left foot wound. I would be hesitant to use piperacillin/tazobactam in this patient because of a high sodium load and the patient with a history of congestive heart failure. We will make further recommendation, must rule out underlying peripheral vascular arterial disease and osteomyelitis. Should have imaging and we will follow closely with you. Long Lance MD
[2017-11-26] MEDS ORDERED: Albuterol-Ipratrop 3 mg / 0.5 (3 ml) UD IH STA (01:00)
[2017-11-26] MEDS ORDERED: Albuterol-Ipratrop 3 mg / 0.5 (3 ml) UD IH PRN (01:16)
[2017-11-26 01:20] LABS: ARTERIAL BLOOD GAS HCO3 29.8 mmol/L (21-28); ARTERIAL BLOOD GAS O2 SAT 93.3 % (95-98); ARTERIAL BLOOD GAS PCO2 41 mm/Hg (35-45); ARTERIAL BLOOD GAS PH 7.47 (7.35-7.45); ARTERIAL BLOOD GAS TCO2 31.1 mmol.L (22-28)
[2017-11-26] MEDS: Albuterol-Ipratrop 3 mg / 0.5 (3 ml) UD IH SCH ×4 (01:37→20:10)
[2017-11-26] MEDS ORDERED: Glucagon Recombinant 1 mg Inj IV STA (02:22)
[2017-11-26] MEDS ORDERED: DOPamine 400mg/250ml D5W 400 MG/250 ML BAG IV PRN (02:40)
--- NOTE | 2017-11-26 03:00 | CP.PCM.CON ---
<Yariel Varela - Last Filed: 11/26/17 02:29> History of Present Illness - History of Present Illness History of Present Illness: ICU Consult Note - Toni Varela, PGY2 CC: Frequent periods of asystole on monitor Patient is a 77 yo M with PMH of ESRD on HD MWF, CVA, IDDM, HTN, HLD, demential , BPH, and GERD [place] [facility] [place] of worsening tremors , fever, and lethargy. In the ED, patient was also found to have possible pneumonitis vs. pneumonia on imaging. Patient was admitted for sepsis 2/2 osteomyelitis vs. pneumonia. Of note, patient was recently treated at [facility] for osteomyelitis of the left foot and was eventually discharged and instructed to receive vancomycin during his MWF HD sessions for six weeks. ICU was consulted due to frequent periods of asystole noted on monitor. Frequent pauses were appreciated on rhythm strip, reaching a maximum of ~7 seconds and HR in the 30's. Prior EKG's were reviewed, many of which showed sinus bradycardia. Patient was asymptomatic on examination and offered no complaints at this time. Patient denied CP, palpitations, SOB, n/v/d, abdominal pain, fever , chills, BAEZA, or dizziness. PMD: Miqbel Cardio: Hupart PMH: ESRD on HD MWF, CVA, IDDM, HTN, HLD, demential, BPH, and GERD Surg: LUE AVF, L hand 5th digit amputation following ischemia from AVF complication, L 3rd toe amputation 2016 All: NKDA SH: Former smoker, quit 40 yrs ago; social EtOH use; denied illicit drug use FHx: Non-contributory Medications: reviewed as per [facility] Review of Systems - Review of Systems All systems: reviewed and no additional remarkable complaints except (12 point ROS reviewed and is negative other than what is stated in HPI.) Past Patient History - Infectious Disease Hx of Infectious Diseases: None - Past Medical History & Family History Past Medical History?: Yes - Past Social History Smoking Status: Former Smoker - CARDIAC Hx Congestive Heart Failure: Yes Hx Hypertension: Yes - PULMONARY Hx Chronic Obstructive Pulmonary Disease (COPD): Yes - NEUROLOGICAL HX Cerebrovascular Accident: Yes - HEENT Hx HEENT Problems: Yes Hx Cataracts: Yes Other/Comment: double vision/decreased vision to the left eye;decreased hearing - RENAL Hx Chronic Kidney Disease: Yes - ENDOCRINE/METABOLIC Hx Diabetes Mellitus Type 2: Yes - HEMATOLOGICAL/ONCOLOGICAL Hx Blood Disorders: No - INTEGUMENTARY Hx Dermatological Problems: Yes (swollen left hand) - MUSCULOSKELETAL/RHEUMATOLOGICAL Hx Falls: No - GASTROINTESTINAL Hx Gastrointestinal Disorders: No - GENITOURINARY/GYNECOLOGICAL Hx Genitourinary Disorders: Yes Hx Reproductive Disorders: No - PSYCHIATRIC Hx Substance Use: No - SURGICAL HISTORY Hx Cataract Extraction: Yes (RT.EYE) Hx Vascular Surgery: Yes (A/V FISTULA LEFT ARM) Hx Vascular Access Device: Yes (DIALYSIS ACCESS) - ANESTHESIA Hx Anesthesia: Yes Hx Anesthesia Reactions: No Hx Malignant Hyperthermia: No Meds Allergies/Adverse Reactions: Allergies Allergy/AdvReac Type Severity Reaction Status Date / Time No Known Allergies Allergy Verified 11/25/17 12:06 - Medications Medications: Current Medications Albuterol/Ipratropium (Duoneb 3 Mg/0.5 Mg (3 Ml) Ud) 3 ml IH [id number] [facility] Last Admin: 11/26/17 01:37 Dose: Not Given Albuterol/Ipratropium (Duoneb 3 Mg/0.5 Mg (3 Ml) Ud) 3 ml IH Q2H PRN PRN Reason: Wheezing Amlodipine Besylate (Norvasc) 10 mg PO DAILY [facility] Aspirin (Aspirin) 325 mg PO DAILY [facility] Last Admin: 11/25/17 18:22 Dose: 325 mg Atorvastatin Calcium (Lipitor) 40 mg PO HS [facility] Last Admin: 11/25/17 21:57 Dose: 40 mg Calcium Acetate (Phoslo) 667 mg PO TID [facility] Last Admin: 11/25/17 18:22 Dose: 667 mg Carvedilol (Coreg) 25 mg PO 0800,1999 [facility] Donepezil HCl (Aricept) 10 mg PO HS [facility] Last Admin: 11/25/17 21:57 Dose: 10 mg Doxazosin Mesylate (Cardura) 2 mg PO BID [facility] Last Admin: 11/25/17 18:26 Dose: 2 mg Gabapentin (Neurontin) 100 mg PO HS [facility] PRN Reason: Protocol Last Admin: 11/25/17 21:57 Dose: 100 mg Glucagon (Glucagen Diagnostic Kit) 1 mg IV STAT STA Stop: 11/26/17 02:23 Heparin Sodium (Porcine) (Heparin) 5,000 units SC Q12 [facility] PRN Reason: Protocol Last Admin: 11/25/17 21:57 Dose: 5,000 units Hydralazine HCl (Apresoline) 100 mg PO BID [facility] Last Admin: 11/25/17 20:09 Dose: 100 mg Meropenem 250 mg/ Sodium (Chloride) 100 mls @ 100 mls/hr IVPB Q12H [facility] PRN Reason: Protocol Stop: 12/04/17 22:01 Last Admin: 11/25/17 21:58 Dose: 100 mls/hr Dopamine HCl 800 mg/ Dextrose 270 mls @ 11.11 mls/hr IV .Q24H PRN; Protocol; 5 MCG/KG/MIN PRN Reason: TITRATE PER MD ORDER Insulin Detemir (Levemir) 5 unit SC ACBHS [facility] Last Admin: 11/25/17 21:58 Dose: 5 units Insulin Human Regular (Humulin R Low) 0 units SC ACHS [facility] PRN Reason: Protocol Last Admin: 11/25/17 21:57 Dose: Not Given Lactobacillus Acidophilus (Bacid Acidophilus) 1 cap PO BID [facility] Last Admin: 11/25/17 18:22 Dose: 1 cap Losartan Potassium (Cozaar) 100 mg PO DAILY [facility] Memantine (Namenda) 5 mg PO DAILY [facility] [id number] Ethyl Esters (Lovaza) 1 gm PO BID [facility] Last Admin: 11/25/17 18:22 Dose: 1 gm Pantoprazole Sodium (Protonix Ec Tab) 40 mg PO DAILY [facility] Tamsulosin HCl (Flomax) 0.4 mg PO DAILY [facility] Physical Exam - Constitutional Appears: No Acute Distress - Head Exam Head Exam: NORMAL INSPECTION - Eye Exam Eye Exam: Normal appearance Pupil Exam: NORMAL ACCOMODATION - ENT Exam ENT Exam: Mucous Membranes Moist - Neck Exam Neck exam: Positive for: Normal Inspection - Respiratory Exam Respiratory Exam: Clear to Auscultation Bilateral. absent: Rales, Wheezes - Cardiovascular Exam Cardiovascular Exam: Bradycardia, REGULAR RHYTHM, +S1, +S2. absent: Diastolic murmur, Gallop, Rubs, Systolic Murmur - GI/Abdominal Exam GI & Abdominal Exam: Soft. absent: Distended, Guarding, Rebound, Tenderness - Extremities Exam Extremities exam: Positive for: pedal pulses present (diminished b/l 1/4) Additional comments: AVF on LUE with palpable thrill and audible bruits; no erythema, discharge, or lesion. - Back Exam Back exam: NORMAL INSPECTION - Neurological Exam Neurological exam: Alert, CN II-XII Intact, Oriented x3 - Psychiatric Exam Psychiatric exam: Normal Affect, Normal Mood - Skin Skin Exam: Warm Additional comments: ulcer noted on left 5th toe, macerated ulcer on left dorsal 4th toe ~1 cm Results - Vital Signs Recent Vital Signs: Last Vital Signs Temp 99.2 F 11/26/17 00:01 Pulse 37 L 11/26/17 02:00 Resp 19 11/26/17 00:01 BP 153/54 H 11/26/17 01:18 Pulse Ox 96 11/26/17 00:01 - Labs Result Diagrams: 11/25/17 08:15 11/25/17 08:15 Labs: Laboratory Results - last 24 hr 11/26/17 11/26/17 01:10 01:15 pCO2 41 pO2 71.0 L HCO3 29.8 H ABG pH 7.47 H ABG Total CO2 31.1 H ABG O2 Saturation 93.3 L ABG Base Excess 5.6 H ABG Potassium 3.6 Sodium 142.0 Chloride 108.0 H Glucose 72 L Lactate 0.7 FiO2 28.0 Troponin I 0.07 D Arterial Blood Potassium 3.6 Assessment & Plan - Assessment and Plan (Free Text) Assessment: 77 yo M with PMH of ESRD on HD MWF, CVA, IDDM, HTN, HLD, demential, BPH, and GERD [place] [facility] [place] to sepsis likely 2/2 osteomyelitis vs pneumonia. Patient will be transferred to ICU for close monitoring and evaluation due to multiple periods of asystole noted on monitor. Plan: Neuro: - AOx3 - Head CT showed no acute intracranial abnormality - Cont Memantine and Donepezil due to h/o dementia - Maintain normothermia CV: - EKG showed sinus bradycardia with PAC's at rate of 50, QTc 486 - Echo on 11/12/17 showed EF of 65-70% - LE arterial duplex ordered - Dopamine gtt - Glucagon 1 gm IVP once - ASA ordered - Coreg held - Norvasc 10mg PO daily - Hydralazine 100mg BID on MWF - Hydralazine 100mg TID on TThSaSu - losartan on TThSaSu - Maintain MAP > 65 - Cardiology consulted Pulm: - CXR showed reticular nodular opacities in the lower lobes that could represent atypical pneumonitis or interstitial edema - Duoneb clara and prn ordered - Maintain O2 sat > 92% GI: - Protonix for GI ppx - Renal diet Nephro: - HD MWF - Cont Phoslo - Maintain euvolemia - Monitor electrolytes and replete as needed - Nephro consulted Heme: - LE venous duplex on 11/08/17 negative for DVT - Heparin for DVT ppx Endo: - Levemir 5 units ACBHS - Accuchecks ACHS - Gabapentin for diabetic neuropathy - Maintain euvolemia ID: - Cont Merrem, renally dosed - Cultures pending - ID consulted - Podiatry consulted Dispo: Patient will be transferred to ICU for close monitoring. Patient given glucagon to reverse effects of BB and placed on dopamine gtt. Patient seen and discussed in detail with Dr. Alexander. Toni Varela, PGY2 <Johann Alexander P - Last Filed: 11/26/17 06:21> Meds - Medications Medications: Current Medications Albuterol/Ipratropium (Duoneb 3 Mg/0.5 Mg (3 Ml) Ud) 3 ml IH [id number] [facility] Last Admin: 11/26/17 01:37 Dose: Not Given Albuterol/Ipratropium (Duoneb 3 Mg/0.5 Mg (3 Ml) Ud) 3 ml IH Q2H PRN PRN Reason: Wheezing Amlodipine Besylate (Norvasc) 10 mg PO DAILY [facility] Aspirin (Aspirin) 325 mg PO DAILY [facility] Last Admin: 11/25/17 18:22 Dose: 325 mg Atorvastatin Calcium (Lipitor) 40 mg PO HS [facility] Last Admin: 11/25/17 21:57 Dose: 40 mg Calcium Acetate (Phoslo) 667 mg PO TID [facility] Last Admin: 11/25/17 18:22 Dose: 667 mg Carvedilol (Coreg) 25 mg PO 0800,1999 [facility] Donepezil HCl (Aricept) 10 mg PO HS [facility] Last Admin: 11/25/17 21:57 Dose: 10 mg Doxazosin Mesylate (Cardura) 2 mg PO BID [facility] Last Admin: 11/25/17 18:26 Dose: 2 mg Gabapentin (Neurontin) 100 mg PO HS [facility] PRN Reason: Protocol Last Admin: 11/25/17 21:57 Dose: 100 mg Heparin Sodium (Porcine) (Heparin) 5,000 units SC Q12 [facility] PRN Reason: Protocol Last Admin: 11/25/17 21:57 Dose: 5,000 units Hydralazine HCl (Apresoline) 100 mg PO BID [facility] Last Admin: 11/25/17 20:09 Dose: 100 mg Meropenem 250 mg/ Sodium (Chloride) 100 mls @ 100 mls/hr IVPB Q12H [facility] PRN Reason: Protocol Stop: 12/04/17 22:01 Last Admin: 11/25/17 21:58 Dose: 100 mls/hr Dopamine HCl/Dextrose (Dopamine 400mg/250ml D5w) 400 mg in 250 mls @ 20.582 mls /hr IV .Q12H9M PRN; Protocol; 5 MCG/KG/MIN PRN Reason: TITRATE PER MD ORDER Last Admin: 11/26/17 03:00 Dose: 5 mcg/kg/min, 20.582 mls/hr Insulin Detemir (Levemir) 5 unit SC ACBHS [facility] Last Admin: 11/25/17 21:58 Dose: 5 units Insulin Human Regular (Humulin R Low) 0 units SC ACHS [facility] PRN Reason: Protocol Last Admin: 11/25/17 21:57 Dose: Not Given Lactobacillus Acidophilus (Bacid Acidophilus) 1 cap PO BID [facility] Last Admin: 11/25/17 18:22 Dose: 1 cap Losartan Potassium (Cozaar) 100 mg PO DAILY [facility] Memantine (Namenda) 5 mg PO DAILY [facility] [id number] Ethyl Esters (Lovaza) 1 gm PO BID [facility] Last Admin: 11/25/17 18:22 Dose: 1 gm Pantoprazole Sodium (Protonix Ec Tab) 40 mg PO DAILY [facility] Tamsulosin HCl (Flomax) 0.4 mg PO DAILY [facility] Results - Vital Signs Recent Vital Signs: Last Vital Signs Temp 97.4 F L 11/26/17 04:20 Pulse 54 L 11/26/17 04:20 Resp 48 H 11/26/17 04:10 BP 127/42 L 11/26/17 04:00 Pulse Ox 88 L 11/26/17 04:20 - Labs Result Diagrams: 11/26/17 01:15 11/25/17 08:15 Labs: Laboratory Results - last 24 hr 11/26/17 11/26/17 11/26/17 01:10 01:15 01:15 WBC RBC Hgb Hct MCV MCH MCHC RDW Plt Count MPV pCO2 41 pO2 71.0 L HCO3 29.8 H ABG pH 7.47 H ABG Total CO2 31.1 H ABG O2 Saturation 93.3 L ABG Base Excess 5.6 H ABG Potassium 3.6 Sodium 142.0 Chloride 108.0 H Glucose 72 L Lactate 0.7 FiO2 28.0 Troponin I 0.07 D Thyroxine (T4) 5.3 L Arterial Blood Potassium 3.6 11/26/17 01:15 WBC 10.7 D RBC 2.81 L Hgb 7.9 L Hct 26.5 L MCV 94.3 MCH 28.1 MCHC 29.8 L RDW 17.9 H Plt Count 161 MPV 10.9 pCO2 pO2 HCO3 ABG pH ABG Total CO2 ABG O2 Saturation ABG Base Excess ABG Potassium Sodium Chloride Glucose Lactate FiO2 Troponin I Thyroxine (T4) Arterial Blood Potassium Attending/Attestation - Attestation I have personally seen and examined this patient.: Yes I have fully participated in the care of the patient.: Yes I have reviewed all pertinent clinical information: Yes Notes (Text): 11/26/17 06:17 Bradycrdia and frequent pauses, while patient was a sleep, patient was not symptomatic, frequency every 2-3 min as long as 7.3 seconds, rhythm sinus dillon with 1st degree av block, some time IVR during pause. History of exposure beta june within a day. Admitted with OM, fever, wbc, h/o dm, pvd, left foot om/ ischemia, esrd on hd, maintaining spo2 on 2lit of nc. Plan Low dose dopamine labs If bradycardia persist few days then may be a candidate for assessing CAD/ pacemaker. See orders for detail.
[2017-11-26 05:48] LABS: HEMOGLOBIN 7.9 g/dL (14.0-18.0); MEAN CELL VOLUME 94.3 fl (80.0-105.0); MEAN CORPUSCULAR HEMOGLOBIN 28.1 pg (25.0-35.0); MEAN CORPUSCULAR HGB CONC 29.8 g/dl (31.0-37.0); MEAN PLATELET VOLUME 10.9 fl (7.0-11.0); RBC 2.81 10^6/uL (3.5-6.1); RED CELL DISTRIBUTION WIDTH 17.9 % (11.5-14.5); WHITE BLOOD COUNT 10.7 10^3/ul (4.5-11.0)
[2017-11-26 06:55] LABS: FREE T4 1.17 ng/dL (0.78-2.19)
[2017-11-26 07:18] LABS: ALB/GLOB RATIO 1.1 (1.1-1.8); ALBUMIN 3.1 g/dL (3.0-4.8); CALCIUM 7.8 mg/dL (8.4-10.5)
[2017-11-26 07:40] LABS: T3 0.55 ng/mL (0.97-1.69)
--- NOTE | 2017-11-26 07:58 | CARD ---
APPROVED REPORT Date of service: 11/25/2017 EKG Measurement Heart [id number] <Conclusion> Sinus bradycardia with premature atrial complexes Prolonged QT Abnormal ECG
[2017-11-26] MEDS: Insulin Detemir 100 units/ml Vial (Levemir) SC SCH ×2 (08:17→21:55)
[2017-11-26] MEDS: Insulin Reg-LOW-Coverage SC SCH ×4 (08:22→21:54)
--- NOTE | 2017-11-26 09:21 | CARD ---
APPROVED REPORT Date of service: 11/25/2017 EKG Measurement Heart [id number] <Conclusion> Sinus bradycardia with 1st degree AV block Nonspecific T wave abnormality Prolonged QT Abnormal ECG
[2017-11-26] MEDS: Lactobacillus Acidophilus 500 MU Cap PO SCH ×2 (09:36→19:53)
[2017-11-26] MEDS: Omega-3-Acid Ethyl Esters 1 GM Cap PO SCH ×2 (09:37→19:55)
--- NOTE | 2017-11-26 11:56 | CP.PCM.PN ---
Subjective - Date & Time of Evaluation Date of Evaluation: 11/26/17 Time of Evaluation: 11:00 - Subjective Subjective: Podiatry Progress Note- Dr. Maher 77 y.o male seen and evaluated at bedside with attending Dr. Maher for left foot ulcerations. Patient is seen resting comfortably in bed, in NAD, and AA0x3. Patient reports pain to the left foot. Denies nausea, fever, shortness of breath, chest pains or chills. Reports feeling the same as when he was admitted. Objective - Vital Signs/Intake and Output Vital Signs (last 24 hours): Temp Pulse Resp BP Pulse Ox 97.4 F L 69 17 134/38 L 95 11/26/17 04:20 11/26/17 09:34 11/26/17 09:30 11/26/17 09:34 11/26/17 09:30 Intake and Output: 11/26/17 11/26/17 06:59 18:59 Intake Total 80 Output Total 0 Balance 80 - Medications Medications: Current Medications Albuterol/Ipratropium (Duoneb 3 Mg/0.5 Mg (3 Ml) Ud) 3 ml IH [id number] [facility] Last Admin: 11/26/17 07:11 Dose: 3 ml Albuterol/Ipratropium (Duoneb 3 Mg/0.5 Mg (3 Ml) Ud) 3 ml IH Q2H PRN PRN Reason: Wheezing Amlodipine Besylate (Norvasc) 10 mg PO DAILY [facility] Aspirin (Aspirin) 325 mg PO DAILY [facility] Last Admin: 11/25/17 18:22 Dose: 325 mg Atorvastatin Calcium (Lipitor) 40 mg PO HS [facility] Last Admin: 11/25/17 21:57 Dose: 40 mg Calcium Acetate (Phoslo) 667 mg PO TID [facility] Last Admin: 11/26/17 09:37 Dose: Not Given Carvedilol (Coreg) 25 mg PO 0800,1999 [facility] Donepezil HCl (Aricept) 10 mg PO HS [facility] Last Admin: 11/25/17 21:57 Dose: 10 mg Doxazosin Mesylate (Cardura) 2 mg PO BID [facility] Last Admin: 11/26/17 09:36 Dose: Not Given Gabapentin (Neurontin) 100 mg PO HS [facility] PRN Reason: Protocol Last Admin: 11/25/17 21:57 Dose: 100 mg Heparin Sodium (Porcine) (Heparin) 5,000 units SC Q12 [facility] PRN Reason: Protocol Last Admin: 11/26/17 09:37 Dose: Not Given Hydralazine HCl (Apresoline) 100 mg PO BID [facility] Last Admin: 11/26/17 09:34 Dose: Not Given Meropenem 250 mg/ Sodium (Chloride) 100 mls @ 100 mls/hr IVPB Q12H [facility] PRN Reason: Protocol Stop: 12/04/17 22:01 Last Admin: 11/26/17 10:17 Dose: 100 mls/hr Dopamine HCl/Dextrose (Dopamine 400mg/250ml D5w) 400 mg in 250 mls @ 20.582 mls /hr IV .Q12H9M PRN; Protocol; 5 MCG/KG/MIN PRN Reason: TITRATE PER MD ORDER Last Admin: 11/26/17 03:00 Dose: 5 mcg/kg/min, 20.582 mls/hr Insulin Detemir (Levemir) 5 unit SC ACBHS [facility] Last Admin: 11/26/17 08:17 Dose: Not Given Insulin Human Regular (Humulin R Low) 0 units SC ACHS [facility] PRN Reason: Protocol Last Admin: 11/26/17 08:22 Dose: Not Given Lactobacillus Acidophilus (Bacid Acidophilus) 1 cap PO BID [facility] Last Admin: 11/26/17 09:36 Dose: Not Given Losartan Potassium (Cozaar) 100 mg PO DAILY [facility] Last Admin: 11/26/17 09:36 Dose: Not Given Memantine (Namenda) 5 mg PO DAILY [facility] [id number] Ethyl Esters (Lovaza) 1 gm PO BID [facility] Last Admin: 11/26/17 09:37 Dose: Not Given Pantoprazole Sodium (Protonix Ec Tab) 40 mg PO DAILY [facility] Tamsulosin HCl (Flomax) 0.4 mg PO DAILY [facility] - Labs Labs: 11/26/17 01:15 11/26/17 01:15 PT 12.5 SECONDS (9.4-12.5) 11/25/17 08:15 INR 1.09 (0.93-1.08) H 11/25/17 08:15 APTT 35.1 Seconds (25.1-36.5) 11/25/17 08:15 - Constitutional Appears: Well, Non-toxic, No Acute Distress - Extremities Exam Extremities Exam: absent: Calf Tenderness Additional comments: Bilateral LE focused Exam: VASC: DP/PT pulses are very faintly palpable 1/4 bilaterally, Cap refill time slightly delayed > 3 sec, skin temperature: warm to cool from proximal to distal , mild non-pitting edema noted on the dorsum of the left foot DERM: Ulceration on the dorsum of the 5th digi measuring approximately 2 cm x 3 cm with wound bed completely necrotic, unstageable depth dry, no active drainage , no malodor, no tunneling or tracking, no purulent drainage, localized erythema noted at the dorsum of the left forefoot, no clinical signs of infection Superficial ulcerations noted to dorsum of digits 1-4 with wound base being 100 % fibrotic. All wounds are negative for drainage, malodor, tunneling, tracking, undermining, erythema or clinical signs of infection NEURO: Protective sensation and gross sensation diminished ORTHO: Pain present during palpation of the digits particularly the 5th digit - Psychiatric Exam Psychiatric exam: Normal Affect, Normal Mood Assessment and Plan - Assessment and Plan (Free Text) Assessment: 77 year old male with PMHx of IDDM, HTN, HLD, BPH, Dementia, GERD and ESRD was evaluated in the ED for superficial non-infected ulcerations on the dorsal aspect of the digits 1-4, and unstageable necrotic ulceration to 5th digit- all left foot. Plan: Patient seen and evaluated Discussed plan with attending Dr. Mhaer Labs, vitals and charts reviewed - afebrile, WBC=10.7 trended down No wound cultures needed at this time- no clinical signs of infection to left foot X-rays of left foot ordered/reviewed - Periosteal reaction with cortical break at the proximal phalanx of the left 5th digit - no subcutaneous emphysema noted Foot cleansed with betadine, and dressed 5th digit necrotic tissue with dsd and paper toe -Necrotic ulceration of 5th digit will likely need debridement pending Arterial duplex/ABIs to assess blood flow to the digits Arterial duplex/ABIs cancelled at this time while in ICU -Will hold off on the debridement of left 5th digit Arterial doppler performed at bedside- posterior tibial artery, anterior tibial artery, and perforating artery at the level of ankle joint is strongly monophasic Please dispense multipodus boots, to be worn at all times while in bed Podiatry to follow patient while in-house
[2017-11-26] MEDS ORDERED: Lidocaine 2% Inj (20ml) ONE (12:28)
--- NOTE | 2017-11-26 12:40 | CP.CCUPN ---
<Dioni Godwin - Last Filed: 11/26/17 13:38> CCU Subjective - Physician Review Subjective (Free Text): Dioni Godwin, PGY1 Critical Care Progress Note for Dr. Sauceda Patient was examined at bedside this morning. He denied chest pain, shortness of breath, palpitations, abdominal pain, extremity pain, nausea, vomiting, diarrhea. Patient had spoke to network pricing consultant in regards to pacemaker placement this morning. Patient will also receive dialysis later this afternoon. A Full 12 point ROS was conducted and unremarkable except as stated above. CCU Objective - Vital Signs / Intake & Output Vital Signs (Last 4 hours): Vital Signs Pulse Resp BP Pulse Ox 11/26/17 09:34 69 134/38 L 11/26/17 09:30 54 L 17 95 11/26/17 09:20 54 L 32 H 92 L 11/26/17 09:10 67 37 H 94 L 11/26/17 09:00 81 43 H 134/38 L 96 11/26/17 08:50 59 L 61 H 97 11/26/17 08:40 54 L 22 93 L Intake and Output (Last 8hrs): Intake & Output 11/25/17 11/26/17 11/26/17 22:59 06:59 14:59 Intake Total 80 Output Total 0 Balance 80 Intake: IV 80 Right Antecubital 80 Output: Urine 0 Urine, Voided 0 - Physical Exam Head: Positive for: Atraumatic, Normocephalic Pupils: Positive for: Other (Reactive and 1mm ) Extroacular Muscles: Positive for: EOMI Conjunctiva: Positive for: Normal Mouth: Positive for: Dry. Negative for: Moist Mucous Membranes Respiratory/Chest: Positive for: Clear to Auscultation, Good Air Exchange. Negative for: Respiratory Distress, Accessory Muscle Use, Wheezes, Rales, Rhonchi Cardiovascular: Positive for: Regular Rate and Rhythm, Normal S1, S2. Negative for: Murmurs Abdomen: Positive for: Normal Bowel Sounds. Negative for: Tenderness, Distention, Peritoneal Signs, Rebound, Guarding Upper Extremity: Positive for: Normal Inspection, Normal ROM, NORMAL PULSES, Other (left AV graft intact). 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 Negative for: CALF TENDERNESS Neurological: Positive for: GCS=15 Skin: Positive for: Warm, Dry, Normal Color. Negative for: Rashes Psychiatric: Positive for: Alert, Oriented x 3 - Medications Active Medications: Active Medications Generic Name Dose Route Start Last Admin Trade Name Freq PRN Reason Stop Dose Admin Albuterol/Ipratropium 3 ml 11/26/17 02:00 11/26/17 07:11 Duoneb 3 Mg/0.5 Mg (3 Ml) Ud IH 3 ml [id number] JERE Administration Albuterol/Ipratropium 3 ml 11/26/17 01:16 Duoneb 3 Mg/0.5 Mg (3 Ml) Ud IH Q2H PRN Wheezing Amlodipine Besylate 10 mg 11/26/17 10:00 Norvasc PO DAILY JERE Aspirin 325 mg 11/25/17 11:15 11/25/17 18:22 Aspirin PO 325 mg DAILY JERE Administration Atorvastatin Calcium 40 mg 11/25/17 22:00 11/25/17 21:57 Lipitor PO 40 mg HS JERE Administration Calcium Acetate 667 mg 11/25/17 14:00 11/26/17 09:37 Phoslo PO Not Given TID JERE Carvedilol 25 mg 11/25/17 16:12 Coreg PO 08,1999 [facility] Donepezil HCl 10 mg 11/25/17 22:00 11/25/17 21:57 Aricept PO 10 mg HS JERE Administration Doxazosin Mesylate 2 mg 11/25/17 18:00 11/26/17 09:36 Cardura PO Not Given BID JERE Gabapentin 100 mg 11/25/17 22:00 11/25/17 21:57 Neurontin PO 100 mg HS JERE Administration Protocol Heparin Sodium (Porcine) 5,000 units 11/25/17 22:00 11/26/17 09:37 Heparin SC Not Given Q12 JERE Protocol Hydralazine HCl 100 mg 11/25/17 18:00 11/26/17 09:34 Apresoline PO Not Given BID JERE Meropenem 250 mg/ Sodium 100 mls @ 100 mls/hr 11/25/17 22:00 11/26/17 10:17 Chloride IVPB 12/04/17 22:01 100 mls/hr Q12H JERE Administration Protocol Dopamine HCl/Dextrose 400 mg in 250 mls @ 20.582 mls/hr 11/26/17 02:40 03:00 Dopamine 400mg/250ml D5w IV 5 mcg/kg/min .Q12H9M PRN 20.582 mls/hr TITRATE PER MD ORDER Administration Protocol 5 MCG/KG/MIN Insulin Detemir 5 unit 11/25/17 22:00 11/26/17 08:17 Levemir SC Not Given ACBHS [facility] Insulin Human Regular 0 units 11/25/17 16:30 11/26/17 08:22 Humulin R Low SC Not Given ACHS [facility] Protocol Lactobacillus Acidophilus 1 cap 11/25/17 18:00 11/26/17 09:36 Bacid Acidophilus PO Not Given BID JERE Losartan Potassium 100 mg 11/26/17 10:00 11/26/17 09:36 Cozaar PO Not Given DAILY JERE Memantine 5 mg 11/26/17 10:00 Namenda PO DAILY [facility] [id number] Ethyl Esters 1 gm 11/25/17 18:00 11/26/17 09:37 Lovaza PO Not Given BID JERE Pantoprazole Sodium 40 mg 11/26/17 10:00 Protonix Ec Tab PO DAILY [facility] Tamsulosin HCl 0.4 mg 11/26/17 10:00 Flomax PO DAILY JERE - Patient Studies Lab Studies: Lab Studies 11/26/17 11/26/17 11/26/17 Range/Units 11:18 08:00 07:30 WBC (4.5-11.0) 10^3/ul RBC (3.5-6.1) 10^6/uL Hgb (14.0-18.0) g/dL Hct (42.0-52.0) % MCV (80.0-105.0) fl MCH (25.0-35.0) pg MCHC (31.0-37.0) g/dl RDW (11.5-14.5) % Plt Count (120.0-450.0) 10^3/uL MPV (7.0-11.0) fl pCO2 (35-45) mm/Hg pO2 (80-100) mm/Hg HCO3 (21-28) mmol/L ABG pH (7.35-7.45) ABG Total CO2 (22-28) mmol.L ABG O2 Saturation (95-98) % ABG Base Excess (-2.0-3.0) mmol/L ABG Potassium (3.6-5.2) mmol/L Sodium (132-148) mmol/L Chloride (98-107) mmol/L Glucose (75-110) mg/dl Lactate (0.7-2.1) mmol/L FiO2 % Potassium (3.6-5.0) mmol/L Carbon Dioxide (21-33) mmol/L Anion Gap (10-20) BUN (7-21) mg/dL Creatinine (0.8-1.5) mg/dl Est GFR ( Amer) Est GFR (Non-Af Amer) POC Glucose (mg/dL) 112 H 107 (65-110) mg/dL Random Glucose (70-110) mg/dL Calcium (8.4-10.5) mg/dL Phosphorus (2.5-4.5) mg/dL Magnesium (1.7-2.2) mg/dL Total Bilirubin (0.2-1.3) mg/dL AST (17-59) U/L ALT (7-56) U/L Alkaline Phosphatase (38-126) U/L Troponin I ng/mL Total Protein (5.8-8.3) g/dL Albumin (3.0-4.8) g/dL Globulin gm/dL Albumin/Globulin Ratio (1.1-1.8) Free T4 (0.78-2.19) ng/dL Thyroxine (T4) (5.5-11.0) ug/dL Total T3 (0.97-1.69) ng/mL Arterial Blood Potassium (3.6-5.2) mmol/L Blood Type O POSITIVE Antibody Screen Negative BBK History Checked Patient has bt 11/26/17 11/26/17 11/26/17 Range/Units 01:15 01:15 01:15 WBC 10.7 D (4.5-11.0) 10^3/ul RBC 2.81 L (3.5-6.1) 10^6/uL Hgb 7.9 L (14.0-18.0) g/dL Hct 26.5 L (42.0-52.0) % MCV 94.3 (80.0-105.0) fl MCH 28.1 (25.0-35.0) pg MCHC 29.8 L (31.0-37.0) g/dl RDW 17.9 H (11.5-14.5) % Plt Count 161 (120.0-450.0) 10^3/uL MPV 10.9 (7.0-11.0) fl pCO2 (35-45) mm/Hg pO2 (80-100) mm/Hg HCO3 (21-28) mmol/L ABG pH (7.35-7.45) ABG Total CO2 (22-28) mmol.L ABG O2 Saturation (95-98) % ABG Base Excess (-2.0-3.0) mmol/L ABG Potassium (3.6-5.2) mmol/L Sodium 145 (132-148) mmol/L Chloride 102 (98-107) mmol/L Glucose (75-110) mg/dl Lactate (0.7-2.1) mmol/L FiO2 % Potassium 3.9 (3.6-5.0) mmol/L Carbon Dioxide 30 (21-33) mmol/L Anion Gap 17 (10-20) BUN 50 H (7-21) mg/dL Creatinine 7.7 H* (0.8-1.5) mg/dl Est GFR ( Amer) 8 Est GFR (Non-Af Amer) 7 POC Glucose (mg/dL) (65-110) mg/dL Random Glucose 74 (70-110) mg/dL Calcium 7.8 L (8.4-10.5) mg/dL Phosphorus 5.3 H (2.5-4.5) mg/dL Magnesium 1.8 (1.7-2.2) mg/dL Total Bilirubin 0.6 (0.2-1.3) mg/dL AST 21 (17-59) U/L ALT 21 (7-56) U/L Alkaline Phosphatase 63 (38-126) U/L Troponin I ng/mL Total Protein 5.8 (5.8-8.3) g/dL Albumin 3.1 (3.0-4.8) g/dL Globulin 2.7 gm/dL Albumin/Globulin Ratio 1.1 (1.1-1.8) Free T4 1.17 (0.78-2.19) ng/dL Thyroxine (T4) (5.5-11.0) ug/dL Total T3 0.55 L (0.97-1.69) ng/mL Arterial Blood Potassium (3.6-5.2) mmol/L Blood Type Antibody Screen BBK History Checked 11/26/17 11/26/17 11/26/17 Range/Units 01:15 01:15 01:10 WBC (4.5-11.0) 10^3/ul RBC (3.5-6.1) 10^6/uL Hgb (14.0-18.0) g/dL Hct (42.0-52.0) % MCV (80.0-105.0) fl MCH (25.0-35.0) pg MCHC (31.0-37.0) g/dl RDW (11.5-14.5) % Plt Count (120.0-450.0) 10^3/uL MPV (7.0-11.0) fl pCO2 41 (35-45) mm/Hg pO2 71.0 L (80-100) mm/Hg HCO3 29.8 H (21-28) mmol/L ABG pH 7.47 H (7.35-7.45) ABG Total CO2 31.1 H (22-28) mmol.L ABG O2 Saturation 93.3 L (95-98) % ABG Base Excess 5.6 H (-2.0-3.0) mmol/L ABG Potassium 3.6 (3.6-5.2) mmol/L Sodium 142.0 (132-148) mmol/L Chloride 108.0 H (98-107) mmol/L Glucose 72 L (75-110) mg/dl Lactate 0.7 (0.7-2.1) mmol/L FiO2 28.0 % Potassium (3.6-5.0) mmol/L Carbon Dioxide (21-33) mmol/L Anion Gap (10-20) BUN (7-21) mg/dL Creatinine (0.8-1.5) mg/dl Est GFR ( Amer) Est GFR (Non-Af Amer) POC Glucose (mg/dL) (65-110) mg/dL Random Glucose (70-110) mg/dL Calcium (8.4-10.5) mg/dL Phosphorus (2.5-4.5) mg/dL Magnesium (1.7-2.2) mg/dL Total Bilirubin (0.2-1.3) mg/dL AST (17-59) U/L ALT (7-56) U/L Alkaline Phosphatase (38-126) U/L Troponin I 0.07 D ng/mL Total Protein (5.8-8.3) g/dL Albumin (3.0-4.8) g/dL Globulin gm/dL Albumin/Globulin Ratio (1.1-1.8) Free T4 (0.78-2.19) ng/dL Thyroxine (T4) 5.3 L (5.5-11.0) ug/dL Total T3 (0.97-1.69) ng/mL Arterial Blood Potassium 3.6 (3.6-5.2) mmol/L Blood Type Antibody Screen BBK History Checked 11/25/17 11/25/17 Range/Units 21:30 18:09 WBC (4.5-11.0) 10^3/ul RBC (3.5-6.1) 10^6/uL Hgb (14.0-18.0) g/dL Hct (42.0-52.0) % MCV (80.0-105.0) fl MCH (25.0-35.0) pg MCHC (31.0-37.0) g/dl RDW (11.5-14.5) % Plt Count (120.0-450.0) 10^3/uL MPV (7.0-11.0) fl pCO2 (35-45) mm/Hg pO2 (80-100) mm/Hg HCO3 (21-28) mmol/L ABG pH (7.35-7.45) ABG Total CO2 (22-28) mmol.L ABG O2 Saturation (95-98) % ABG Base Excess (-2.0-3.0) mmol/L ABG Potassium (3.6-5.2) mmol/L Sodium (132-148) mmol/L Chloride (98-107) mmol/L Glucose (75-110) mg/dl Lactate (0.7-2.1) mmol/L FiO2 % Potassium (3.6-5.0) mmol/L Carbon Dioxide (21-33) mmol/L Anion Gap (10-20) BUN (7-21) mg/dL Creatinine (0.8-1.5) mg/dl Est GFR ( Amer) Est GFR (Non-Af Amer) POC Glucose (mg/dL) 121 H 126 H (65-110) mg/dL Random Glucose (70-110) mg/dL Calcium (8.4-10.5) mg/dL Phosphorus (2.5-4.5) mg/dL Magnesium (1.7-2.2) mg/dL Total Bilirubin (0.2-1.3) mg/dL AST (17-59) U/L ALT (7-56) U/L Alkaline Phosphatase (38-126) U/L Troponin I ng/mL Total Protein (5.8-8.3) g/dL Albumin (3.0-4.8) g/dL Globulin gm/dL Albumin/Globulin Ratio (1.1-1.8) Free T4 (0.78-2.19) ng/dL Thyroxine (T4) (5.5-11.0) ug/dL Total T3 (0.97-1.69) ng/mL Arterial Blood Potassium (3.6-5.2) mmol/L Blood Type Antibody Screen BBK History Checked Laboratory Results - last 24 hr 11/25/17 11/25/17 11/26/17 18:09 21:30 01:10 WBC RBC Hgb Hct MCV MCH MCHC RDW Plt Count MPV pCO2 41 pO2 71.0 L HCO3 29.8 H ABG pH 7.47 H ABG Total CO2 31.1 H ABG O2 Saturation 93.3 L ABG Base Excess 5.6 H ABG Potassium 3.6 Sodium 142.0 Chloride 108.0 H Glucose 72 L Lactate 0.7 FiO2 28.0 Potassium Carbon Dioxide Anion Gap BUN Creatinine Est GFR ( Amer) Est GFR (Non-Af Amer) POC Glucose (mg/dL) 126 H 121 H Random Glucose Calcium Phosphorus Magnesium Total Bilirubin AST ALT Alkaline Phosphatase Troponin I Total Protein Albumin Globulin Albumin/Globulin Ratio Free T4 Thyroxine (T4) Total T3 Arterial Blood Potassium 3.6 Blood Type Antibody Screen BBK History Checked 11/26/17 11/26/17 11/26/17 01:15 01:15 01:15 WBC 10.7 D RBC 2.81 L Hgb 7.9 L Hct 26.5 L MCV 94.3 MCH 28.1 MCHC 29.8 L RDW 17.9 H Plt Count 161 MPV 10.9 pCO2 pO2 HCO3 ABG pH ABG Total CO2 ABG O2 Saturation ABG Base Excess ABG Potassium Sodium Chloride Glucose Lactate FiO2 Potassium Carbon Dioxide Anion Gap BUN Creatinine Est GFR ( Amer) Est GFR (Non-Af Amer) POC Glucose (mg/dL) Random Glucose Calcium Phosphorus Magnesium Total Bilirubin AST ALT Alkaline Phosphatase Troponin I 0.07 D Total Protein Albumin Globulin Albumin/Globulin Ratio Free T4 Thyroxine (T4) 5.3 L Total T3 Arterial Blood Potassium Blood Type Antibody Screen BBK History Checked 11/26/17 11/26/17 11/26/17 01:15 01:15 07:30 WBC RBC Hgb Hct MCV MCH MCHC RDW Plt Count MPV pCO2 pO2 HCO3 ABG pH ABG Total CO2 ABG O2 Saturation ABG Base Excess ABG Potassium Sodium 145 Chloride 102 Glucose Lactate FiO2 Potassium 3.9 Carbon Dioxide 30 Anion Gap 17 BUN 50 H Creatinine 7.7 H* Est GFR ( Amer) 8 Est GFR (Non-Af Amer) 7 POC Glucose (mg/dL) 107 Random Glucose 74 Calcium 7.8 L Phosphorus 5.3 H Magnesium 1.8 Total Bilirubin 0.6 AST 21 ALT 21 Alkaline Phosphatase 63 Troponin I Total Protein 5.8 Albumin 3.1 Globulin 2.7 Albumin/Globulin Ratio 1.1 Free T4 1.17 Thyroxine (T4) Total T3 0.55 L Arterial Blood Potassium Blood Type Antibody Screen BBK History Checked 11/26/17 11/26/17 08:00 11:18 WBC RBC Hgb Hct MCV MCH MCHC RDW Plt Count MPV pCO2 pO2 HCO3 ABG pH ABG Total CO2 ABG O2 Saturation ABG Base Excess ABG Potassium Sodium Chloride Glucose Lactate FiO2 Potassium Carbon Dioxide Anion Gap BUN Creatinine Est GFR ( Amer) Est GFR (Non-Af Amer) POC Glucose (mg/dL) 112 H Random Glucose Calcium Phosphorus Magnesium Total Bilirubin AST ALT Alkaline Phosphatase Troponin I Total Protein Albumin Globulin Albumin/Globulin Ratio Free T4 Thyroxine (T4) Total T3 Arterial Blood Potassium Blood Type O POSITIVE Antibody Screen Negative BBK History Checked Patient has bt EKG/Cardiology Studies: Cardiology / EKG Studies 11/25/17 13:47 EKG [ELECTROCARDIOGRAM] Stat Comment: Reason For Exam: Multiple pauses and bradycardia 11/25/17 22:57 EKG [ELECTROCARDIOGRAM] Stat Comment: Reason For Exam: multiple pauses PRE OP:: N Does Patient Have a Pacemaker?: No Fingerstick Blood Sugar Results: 107 Review of Systems - Review of Systems All systems: reviewed and no additional remarkable complaints except (as per HPI ) Critical Care Progress Note - Extremities/Vascular Does the Patient have a Central Venous Catheter?: No Does the Patient need a Central Venous Catheter?: No Does the Patient have a Ariza Catheter?: No Does the Patient need a Ariza Catheter?: No - Prophylaxis GI Prophylaxis GI: PPI - Prophylaxis DVT Prophylaxis DVT: Heparin SQ - Nutrition Nutrition: Nutrition Category Date Time Status Renal Diet [DIET] Diets 11/25/17 Lunch Ordered Assessment/Plan - Assessment and Plan (Free Text) Assessment: Patient is a 77 y/o M with PMH of ESRD on HD (MWF), CVA, IDDM, HTN, HLD, dementia, BPH, and GERD who [place] [facility] of worsening tremors , fever, and lethargy. In the ED, patient was found to have possible pneumonitis vs. pneumonia. Patient was admitted for sepsis 2/2 osteomyelitis vs. pneumonia. Patient was recently treated for osteomyleitis at [facility]. During hospital course, patient was found to have frequent periods of asystole noted on monitor. Frequent pauses were present, with max of 7 seconds and bradycardia, HR in 30s. However, patient has been asymptomatic. Cardiology, ID, podiatry, and nephrology are following the case. ICU was consulted for monitoring of episodes of asystole. Plan: Neuro: - AAOx3 - Head CT (11/25): showed no acute intracranial abnormality - Maintain normothermia Cardio: - Plan for pacemaker today, as per cardiology; d/w family and patient - currently on dopamine gtt - d/c norvasc - ECHO (11/12/17): EG 65-70% - Cardiology consulted, appreciated recs Pulm: - Maintain SaO2 > 92% - CXR (11/25): reticular nodular opacities in lower lobes that could represent atypical pneumonitis or interstitial edema GI: - GI ppx - Renal diet Renal: - Plan for Hemodialysis this afternoon (Schedule is MWF) - Current BUN/Cr is 50/7.7 - replete lytes as needed - Nephro consulted Heme: - Heparin SC for DVT ppx - LE venous duplex on 11/08/17 negative for DVT Endo: - Maintain euglycemia - Malena ESCALERA ID: - f/u cultures - c/w antibiotics - ID consulted, recs appreciated - Podiatry consulted Dispo: Patient is being monitored in the ICU. Plan for Pacemaker today and HD later in the afternoon. Case was discussed and reviewed with Attending Physician Dr. Sauceda. <Tor Sauceda - Last Filed: 11/26/17 14:07> CCU Objective - Vital Signs / Intake & Output Vital Signs (Last 4 hours): Vital Signs Pulse Resp BP Pulse Ox 11/26/17 12:00 57 L 22 132/48 L 97 11/26/17 11:50 55 L 20 95 11/26/17 11:40 61 43 H 80 L 11/26/17 11:30 80 44 H 93 L 11/26/17 11:20 63 19 94 L 11/26/17 11:10 54 L 31 H 94 L 11/26/17 11:00 56 L 36 H 137/52 L 95 11/26/17 10:50 59 L 30 H 96 11/26/17 10:40 66 38 H 93 L 11/26/17 10:30 84 19 93 L 11/26/17 10:20 57 L 26 H 96 11/26/17 10:10 55 L 17 98 Intake and Output (Last 8hrs): Intake & Output 11/25/17 11/26/17 11/26/17 22:59 06:59 14:59 Intake Total 80 Output Total 0 Balance 80 Intake: IV 80 Right Antecubital 80 Output: Urine 0 Urine, Voided 0 - Medications Active Medications: Active Medications Generic Name Dose Route Start Last Admin Trade Name Freq PRN Reason Stop Dose Admin Albuterol/Ipratropium 3 ml 11/26/17 02:00 11/26/17 13:45 Duoneb 3 Mg/0.5 Mg (3 Ml) Ud IH Not Given [id number] JERE Albuterol/Ipratropium 3 ml 11/26/17 01:16 Duoneb 3 Mg/0.5 Mg (3 Ml) Ud IH Q2H PRN Wheezing Amlodipine Besylate 10 mg 11/26/17 10:00 Norvasc PO DAILY JERE Aspirin 325 mg 11/25/17 11:15 11/25/17 18:22 Aspirin PO 325 mg DAILY JERE Administration Atorvastatin Calcium 40 mg 11/25/17 22:00 11/25/17 21:57 Lipitor PO 40 mg HS JERE Administration Calcium Acetate 667 mg 11/25/17 14:00 11/26/17 09:37 Phoslo PO Not Given TID JERE Carvedilol 25 mg 11/25/17 16:12 Coreg PO 08,1999 [facility] Donepezil HCl 10 mg 11/25/17 22:00 11/25/17 21:57 Aricept PO 10 mg HS JERE Administration Doxazosin Mesylate 2 mg 11/25/17 18:00 11/26/17 09:36 Cardura PO Not Given BID [facility] Gabapentin 100 mg 11/25/17 22:00 11/25/17 21:57 Neurontin PO 100 mg HS JERE Administration Protocol Heparin Sodium (Porcine) 5,000 units 11/25/17 22:00 11/26/17 09:37 Heparin SC Not Given Q12 [facility] Protocol Hydralazine HCl 100 mg 11/25/17 18:00 11/26/17 09:34 Apresoline PO Not Given BID JERE Meropenem 250 mg/ Sodium 100 mls @ 100 mls/hr 11/25/17 22:00 11/26/17 10:17 Chloride IVPB 12/04/17 22:01 100 mls/hr Q12H JERE Administration Protocol Dopamine HCl/Dextrose 400 mg in 250 mls @ 20.582 mls/hr 11/26/17 02:40 03:00 Dopamine 400mg/250ml D5w IV 5 mcg/kg/min .Q12H9M PRN 20.582 mls/hr TITRATE PER MD ORDER Administration Protocol 5 MCG/KG/MIN Insulin Detemir 5 unit 11/25/17 22:00 11/26/17 08:17 Levemir SC Not Given ACBHS [facility] Insulin Human Regular 0 units 11/25/17 16:30 11/26/17 08:22 Humulin R Low SC Not Given ACHS [facility] Protocol Lactobacillus Acidophilus 1 cap 11/25/17 18:00 11/26/17 09:36 Bacid Acidophilus PO Not Given BID [facility] Losartan Potassium 100 mg 11/26/17 10:00 07/23/18 09:36 Cozaar PO Not Given DAILY JERE Memantine 5 mg 11/26/17 10:00 Namenda PO DAILY JERE Iuxet-0-Cmcj Ethyl Esters 1 gm 11/25/17 18:00 11/26/17 09:37 Lovaza PO Not Given BID JERE Pantoprazole Sodium 40 mg 11/26/17 10:00 Protonix Ec Tab PO DAILY JERE Tamsulosin HCl 0.4 mg 11/26/17 10:00 Flomax PO DAILY JERE - Patient Studies Lab Studies: Lab Studies 11/26/17 11/26/17 11/26/17 Range/Units 11:18 08:00 07:30 WBC (4.5-11.0) 10^3/ul RBC (3.5-6.1) 10^6/uL Hgb (14.0-18.0) g/dL Hct (42.0-52.0) % MCV (80.0-105.0) fl MCH (25.0-35.0) pg MCHC (31.0-37.0) g/dl RDW (11.5-14.5) % Plt Count (120.0-450.0) 10^3/uL MPV (7.0-11.0) fl pCO2 (35-45) mm/Hg pO2 (80-100) mm/Hg HCO3 (21-28) mmol/L ABG pH (7.35-7.45) ABG Total CO2 (22-28) mmol.L ABG O2 Saturation (95-98) % ABG Base Excess (-2.0-3.0) mmol/L ABG Potassium (3.6-5.2) mmol/L Sodium (132-148) mmol/L Chloride (98-107) mmol/L Glucose (75-110) mg/dl Lactate (0.7-2.1) mmol/L FiO2 % Potassium (3.6-5.0) mmol/L Carbon Dioxide (21-33) mmol/L Anion Gap (10-20) BUN (7-21) mg/dL Creatinine (0.8-1.5) mg/dl Est GFR ( Amer) Est GFR (Non-Af Amer) POC Glucose (mg/dL) 112 H 107 (65-110) mg/dL Random Glucose (70-110) mg/dL Calcium (8.4-10.5) mg/dL Phosphorus (2.5-4.5) mg/dL Magnesium (1.7-2.2) mg/dL Total Bilirubin (0.2-1.3) mg/dL AST (17-59) U/L ALT (7-56) U/L Alkaline Phosphatase (38-126) U/L Troponin I ng/mL Total Protein (5.8-8.3) g/dL Albumin (3.0-4.8) g/dL Globulin gm/dL Albumin/Globulin Ratio (1.1-1.8) Free T4 (0.78-2.19) ng/dL Thyroxine (T4) (5.5-11.0) ug/dL Total T3 (0.97-1.69) ng/mL Arterial Blood Potassium (3.6-5.2) mmol/L Blood Type O POSITIVE Antibody Screen Negative Crossmatch See Detail BBK History Checked Patient has bt 11/26/17 11/26/17 11/26/17 Range/Units 01:15 01:15 01:15 WBC 10.7 D (4.5-11.0) 10^3/ul RBC 2.81 L (3.5-6.1) 10^6/uL Hgb 7.9 L (14.0-18.0) g/dL Hct 26.5 L (42.0-52.0) % MCV 94.3 (80.0-105.0) fl MCH 28.1 (25.0-35.0) pg MCHC 29.8 L (31.0-37.0) g/dl RDW 17.9 H (11.5-14.5) % Plt Count 161 (120.0-450.0) 10^3/uL MPV 10.9 (7.0-11.0) fl pCO2 (35-45) mm/Hg pO2 (80-100) mm/Hg HCO3 (21-28) mmol/L ABG pH (7.35-7.45) ABG Total CO2 (22-28) mmol.L ABG O2 Saturation (95-98) % ABG Base Excess (-2.0-3.0) mmol/L ABG Potassium (3.6-5.2) mmol/L Sodium 145 (132-148) mmol/L Chloride 102 (98-107) mmol/L Glucose (75-110) mg/dl Lactate (0.7-2.1) mmol/L FiO2 % Potassium 3.9 (3.6-5.0) mmol/L Carbon Dioxide 30 (21-33) mmol/L Anion Gap 17 (10-20) BUN 50 H (7-21) mg/dL Creatinine 7.7 H* (0.8-1.5) mg/dl Est GFR ( Amer) 8 Est GFR (Non-Af Amer) 7 POC Glucose (mg/dL) (65-110) mg/dL Random Glucose 74 (70-110) mg/dL Calcium 7.8 L (8.4-10.5) mg/dL Phosphorus 5.3 H (2.5-4.5) mg/dL Magnesium 1.8 (1.7-2.2) mg/dL Total Bilirubin 0.6 (0.2-1.3) mg/dL AST 21 (17-59) U/L ALT 21 (7-56) U/L Alkaline Phosphatase 63 (38-126) U/L Troponin I ng/mL Total Protein 5.8 (5.8-8.3) g/dL Albumin 3.1 (3.0-4.8) g/dL Globulin 2.7 gm/dL Albumin/Globulin Ratio 1.1 (1.1-1.8) Free T4 1.17 (0.78-2.19) ng/dL Thyroxine (T4) (5.5-11.0) ug/dL Total T3 0.55 L (0.97-1.69) ng/mL Arterial Blood Potassium (3.6-5.2) mmol/L Blood Type Antibody Screen Crossmatch BBK History Checked 11/26/17 11/26/17 11/26/17 Range/Units 01:15 01:15 01:10 WBC (4.5-11.0) 10^3/ul RBC (3.5-6.1) 10^6/uL Hgb (14.0-18.0) g/dL Hct (42.0-52.0) % MCV (80.0-105.0) fl MCH (25.0-35.0) pg MCHC (31.0-37.0) g/dl RDW (11.5-14.5) % Plt Count (120.0-450.0) 10^3/uL MPV (7.0-11.0) fl pCO2 41 (35-45) mm/Hg pO2 71.0 L (80-100) mm/Hg HCO3 29.8 H (21-28) mmol/L ABG pH 7.47 H (7.35-7.45) ABG Total CO2 31.1 H (22-28) mmol.L ABG O2 Saturation 93.3 L (95-98) % ABG Base Excess 5.6 H (-2.0-3.0) mmol/L ABG Potassium 3.6 (3.6-5.2) mmol/L Sodium 142.0 (132-148) mmol/L Chloride 108.0 H (98-107) mmol/L Glucose 72 L (75-110) mg/dl Lactate 0.7 (0.7-2.1) mmol/L FiO2 28.0 % Potassium (3.6-5.0) mmol/L Carbon Dioxide (21-33) mmol/L Anion Gap (10-20) BUN (7-21) mg/dL Creatinine (0.8-1.5) mg/dl Est GFR ( Amer) Est GFR (Non-Af Amer) POC Glucose (mg/dL) (65-110) mg/dL Random Glucose (70-110) mg/dL Calcium (8.4-10.5) mg/dL Phosphorus (2.5-4.5) mg/dL Magnesium (1.7-2.2) mg/dL Total Bilirubin (0.2-1.3) mg/dL AST (17-59) U/L ALT (7-56) U/L Alkaline Phosphatase (38-126) U/L Troponin I 0.07 D ng/mL Total Protein (5.8-8.3) g/dL Albumin (3.0-4.8) g/dL Globulin gm/dL Albumin/Globulin Ratio (1.1-1.8) Free T4 (0.78-2.19) ng/dL Thyroxine (T4) 5.3 L (5.5-11.0) ug/dL Total T3 (0.97-1.69) ng/mL Arterial Blood Potassium 3.6 (3.6-5.2) mmol/L Blood Type Antibody Screen Crossmatch BBK History Checked 11/25/17 11/25/17 Range/Units 21:30 18:09 WBC (4.5-11.0) 10^3/ul RBC (3.5-6.1) 10^6/uL Hgb (14.0-18.0) g/dL Hct (42.0-52.0) % MCV (80.0-105.0) fl MCH (25.0-35.0) pg MCHC (31.0-37.0) g/dl RDW (11.5-14.5) % Plt Count (120.0-450.0) 10^3/uL MPV (7.0-11.0) fl pCO2 (35-45) mm/Hg pO2 (80-100) mm/Hg HCO3 (21-28) mmol/L ABG pH (7.35-7.45) ABG Total CO2 (22-28) mmol.L ABG O2 Saturation (95-98) % ABG Base Excess (-2.0-3.0) mmol/L ABG Potassium (3.6-5.2) mmol/L Sodium (132-148) mmol/L Chloride (98-107) mmol/L Glucose (75-110) mg/dl Lactate (0.7-2.1) mmol/L FiO2 % Potassium (3.6-5.0) mmol/L Carbon Dioxide (21-33) mmol/L Anion Gap (10-20) BUN (7-21) mg/dL Creatinine (0.8-1.5) mg/dl Est GFR ( Amer) Est GFR (Non-Af Amer) POC Glucose (mg/dL) 121 H 126 H (65-110) mg/dL Random Glucose (70-110) mg/dL Calcium (8.4-10.5) mg/dL Phosphorus (2.5-4.5) mg/dL Magnesium (1.7-2.2) mg/dL Total Bilirubin (0.2-1.3) mg/dL AST (17-59) U/L ALT (7-56) U/L Alkaline Phosphatase (38-126) U/L Troponin I ng/mL Total Protein (5.8-8.3) g/dL Albumin (3.0-4.8) g/dL Globulin gm/dL Albumin/Globulin Ratio (1.1-1.8) Free T4 (0.78-2.19) ng/dL Thyroxine (T4) (5.5-11.0) ug/dL Total T3 (0.97-1.69) ng/mL Arterial Blood Potassium (3.6-5.2) mmol/L Blood Type Antibody Screen Crossmatch BBK History Checked Laboratory Results - last 24 hr 11/25/17 11/25/17 11/26/17 18:09 21:30 01:10 WBC RBC Hgb Hct MCV MCH MCHC RDW Plt Count MPV pCO2 41 pO2 71.0 L HCO3 29.8 H ABG pH 7.47 H ABG Total CO2 31.1 H ABG O2 Saturation 93.3 L ABG Base Excess 5.6 H ABG Potassium 3.6 Sodium 142.0 Chloride 108.0 H Glucose 72 L Lactate 0.7 FiO2 28.0 Potassium Carbon Dioxide Anion Gap BUN Creatinine Est GFR ( Amer) Est GFR (Non-Af Amer) POC Glucose (mg/dL) 126 H 121 H Random Glucose Calcium Phosphorus Magnesium Total Bilirubin AST ALT Alkaline Phosphatase Troponin I Total Protein Albumin Globulin Albumin/Globulin Ratio Free T4 Thyroxine (T4) Total T3 Arterial Blood Potassium 3.6 Blood Type Antibody Screen Crossmatch BBK History Checked 11/26/17 11/26/17 11/26/17 01:15 01:15 01:15 WBC 10.7 D RBC 2.81 L Hgb 7.9 L Hct 26.5 L MCV 94.3 MCH 28.1 MCHC 29.8 L RDW 17.9 H Plt Count 161 MPV 10.9 pCO2 pO2 HCO3 ABG pH ABG Total CO2 ABG O2 Saturation ABG Base Excess ABG Potassium Sodium Chloride Glucose Lactate FiO2 Potassium Carbon Dioxide Anion Gap BUN Creatinine Est GFR ( Amer) Est GFR (Non-Af Amer) POC Glucose (mg/dL) Random Glucose Calcium Phosphorus Magnesium Total Bilirubin AST ALT Alkaline Phosphatase Troponin I 0.07 D Total Protein Albumin Globulin Albumin/Globulin Ratio Free T4 Thyroxine (T4) 5.3 L Total T3 Arterial Blood Potassium Blood Type Antibody Screen Crossmatch BBK History Checked 11/26/17 11/26/17 11/26/17 01:15 01:15 07:30 WBC RBC Hgb Hct MCV MCH MCHC RDW Plt Count MPV pCO2 pO2 HCO3 ABG pH ABG Total CO2 ABG O2 Saturation ABG Base Excess ABG Potassium Sodium 145 Chloride 102 Glucose Lactate FiO2 Potassium 3.9 Carbon Dioxide 30 Anion Gap 17 BUN 50 H Creatinine 7.7 H* Est GFR ( Amer) 8 Est GFR (Non-Af Amer) 7 POC Glucose (mg/dL) 107 Random Glucose 74 Calcium 7.8 L Phosphorus 5.3 H Magnesium 1.8 Total Bilirubin 0.6 AST 21 ALT 21 Alkaline Phosphatase 63 Troponin I Total Protein 5.8 Albumin 3.1 Globulin 2.7 Albumin/Globulin Ratio 1.1 Free T4 1.17 Thyroxine (T4) Total T3 0.55 L Arterial Blood Potassium Blood Type Antibody Screen Crossmatch BBK History Checked 11/26/17 11/26/17 08:00 11:18 WBC RBC Hgb Hct MCV MCH MCHC RDW Plt Count MPV pCO2 pO2 HCO3 ABG pH ABG Total CO2 ABG O2 Saturation ABG Base Excess ABG Potassium Sodium Chloride Glucose Lactate FiO2 Potassium Carbon Dioxide Anion Gap BUN Creatinine Est GFR ( Amer) Est GFR (Non-Af Amer) POC Glucose (mg/dL) 112 H Random Glucose Calcium Phosphorus Magnesium Total Bilirubin AST ALT Alkaline Phosphatase Troponin I Total Protein Albumin Globulin Albumin/Globulin Ratio Free T4 Thyroxine (T4) Total T3 Arterial Blood Potassium Blood Type O POSITIVE Antibody Screen Negative Crossmatch See Detail BBK History Checked Patient has bt EKG/Cardiology Studies: Cardiology / EKG Studies 11/25/17 13:47 EKG [ELECTROCARDIOGRAM] Stat Comment: Reason For Exam: Multiple pauses and bradycardia 11/25/17 22:57 EKG [ELECTROCARDIOGRAM] Stat Comment: Reason For Exam: multiple pauses PRE OP:: N Does Patient Have a Pacemaker?: No Critical Care Progress Note - Nutrition Nutrition: Nutrition Category Date Time Status Renal Diet [DIET] Diets 11/25/17 Lunch Ordered Attending/Attestation - Attestation I have personally seen and examined this patient.: Yes I have fully participated in the care of the patient.: Yes I have reviewed all pertinent clinical information: Yes Notes (Text): 11/26/17 14:03 The patient was seen and examined at the bedside. Patient care was discussed with resident Medical records, lab studies, and imaging were reviewed and management issues were discussed and formulated. Last 24H events reviewed. Agree with above treatment plans as outlined in 's note with addition of the following: Bradycardia with sinus pauses \ Sepsis \ OM \ Cellulitis \ ESRD on HD \ COPD \ DM 2 \ HTN \ -hemodynamic monitoring to maintain MAP>65 -on external pacing leads and dopamine drip -cardiology team to insert PPM today -hold all BBlockers and Ca+ blockers at this time -o2 supplementation to maintain Spo2>90 Pao2>60; currently comfortable on NC -nebs PRN -continue broad spectrum Abx as per ID team and f\u cultures -f\u Bun\Cr and U\o; HD and volume removal as per renal team -PO diet and aspiration precautions -ISS and BGM monitoring -podiatry team f\u -DVT \ PUD prophylaxis CCM time 31min
[2017-11-26] MEDS ORDERED: Midazolam 2 MG/2 ML VIAL ONE (12:47)
[2017-11-26] MEDS ORDERED: Iodixanol 320 MG/ML 100 ML BOTTLE IV ONE (13:10)
--- NOTE | 2017-11-26 13:41 | CP.PCM.PN ---
Subjective - Date & Time of Evaluation Date of Evaluation: 11/26/17 Time of Evaluation: 10:10 - Subjective Subjective: Patient is feeling better, no fevers, still with left foot pain, no diarrhea, no nausea. Objective - Vital Signs/Intake and Output Vital Signs (last 24 hours): Temp Pulse Resp BP Pulse Ox 97.4 F L 69 17 134/38 L 95 11/26/17 04:20 11/26/17 09:34 11/26/17 09:30 11/26/17 09:34 11/26/17 09:30 Intake and Output: 11/26/17 11/26/17 06:59 18:59 Intake Total 80 Output Total 0 Balance 80 - Medications Medications: Current Medications Albuterol/Ipratropium (Duoneb 3 Mg/0.5 Mg (3 Ml) Ud) 3 ml IH [id number] [facility] Last Admin: 11/26/17 07:11 Dose: 3 ml Albuterol/Ipratropium (Duoneb 3 Mg/0.5 Mg (3 Ml) Ud) 3 ml IH Q2H PRN PRN Reason: Wheezing Amlodipine Besylate (Norvasc) 10 mg PO DAILY [facility] Aspirin (Aspirin) 325 mg PO DAILY [facility] Last Admin: 11/25/17 18:22 Dose: 325 mg Atorvastatin Calcium (Lipitor) 40 mg PO HS [facility] Last Admin: 11/25/17 21:57 Dose: 40 mg Calcium Acetate (Phoslo) 667 mg PO TID [facility] Last Admin: 11/26/17 09:37 Dose: Not Given Carvedilol (Coreg) 25 mg PO 0800,1999 [facility] Donepezil HCl (Aricept) 10 mg PO HS [facility] Last Admin: 11/25/17 21:57 Dose: 10 mg Doxazosin Mesylate (Cardura) 2 mg PO BID [facility] Last Admin: 11/26/17 09:36 Dose: Not Given Gabapentin (Neurontin) 100 mg PO HS [facility] PRN Reason: Protocol Last Admin: 11/25/17 21:57 Dose: 100 mg Heparin Sodium (Porcine) (Heparin) 5,000 units SC Q12 [facility] PRN Reason: Protocol Last Admin: 11/26/17 09:37 Dose: Not Given Hydralazine HCl (Apresoline) 100 mg PO BID [facility] Last Admin: 11/26/17 09:34 Dose: Not Given Meropenem 250 mg/ Sodium (Chloride) 100 mls @ 100 mls/hr IVPB Q12H [facility] PRN Reason: Protocol Stop: 12/04/17 22:01 Last Admin: 11/25/17 21:58 Dose: 100 mls/hr Dopamine HCl/Dextrose (Dopamine 400mg/250ml D5w) 400 mg in 250 mls @ 20.582 mls /hr IV .Q12H9M PRN; Protocol; 5 MCG/KG/MIN PRN Reason: TITRATE PER MD ORDER Last Admin: 11/26/17 03:00 Dose: 5 mcg/kg/min, 20.582 mls/hr Insulin Detemir (Levemir) 5 unit SC ACBHS [facility] Last Admin: 11/26/17 08:17 Dose: Not Given Insulin Human Regular (Humulin R Low) 0 units SC ACHS [facility] PRN Reason: Protocol Last Admin: 11/26/17 08:22 Dose: Not Given Lactobacillus Acidophilus (Bacid Acidophilus) 1 cap PO BID [facility] Last Admin: 11/26/17 09:36 Dose: Not Given Losartan Potassium (Cozaar) 100 mg PO DAILY [facility] Last Admin: 11/26/17 09:36 Dose: Not Given Memantine (Namenda) 5 mg PO DAILY [facility] Oajug-1-Gpks Ethyl Esters (Lovaza) 1 gm PO BID [facility] Last Admin: 11/26/17 09:37 Dose: Not Given Pantoprazole Sodium (Protonix Ec Tab) 40 mg PO DAILY [facility] Tamsulosin HCl (Flomax) 0.4 mg PO DAILY [facility] - Labs Labs: 11/26/17 01:15 11/26/17 01:15 PT 12.5 SECONDS (9.4-12.5) 11/25/17 08:15 INR 1.09 (0.93-1.08) H 11/25/17 08:15 APTT 35.1 Seconds (25.1-36.5) 11/25/17 08:15 - Constitutional Appears: Chronically Ill - Head Exam Head Exam: NORMAL INSPECTION - Respiratory Exam Respiratory Exam: Decreased Breath Sounds - Cardiovascular Exam Cardiovascular Exam: +S1, +S2 - GI/Abdominal Exam GI & Abdominal Exam: Soft. absent: Tenderness - Extremities Exam Additional comments: left foot with dressings in place Assessment and Plan - Assessment and Plan (Free Text) Plan: Assessment severe sepsis due to left foot cellulitis with left 5th toe gangrene history of severe sepsis due to healthcare-associated pneumonia as well as epiglottitis with oropahryngeal candidiasis ESRD on HD DM HTN morbid obesity with BMI 41 dyslipidemia COPD cataracts chronic low back pain Plan continue intermittent Vancomycin and Merrem (day 2) pending wound cx and further plans of Podiatry
--- NOTE | 2017-11-26 14:57 | RAD ---
Date of service: 11/26/2017 HISTORY: Post Pacemaker, R/o Pneumothorax COMPARISON: No prior. FINDINGS: LUNGS: No active pulmonary disease. PLEURA: No significant pleural effusion identified, no pneumothorax apparent. CARDIOVASCULAR: Mild cardiomegaly. Single lead pacemaker OSSEOUS STRUCTURES: No significant abnormalities. VISUALIZED UPPER ABDOMEN: Normal. OTHER FINDINGS: None. IMPRESSION: No active disease.
--- NOTE | 2017-11-26 15:07 | CARD ---
APPROVED REPORT Date of service: 11/26/2017 HISTORY The Patient is a 77 year-old male with a history of HTN, ESRD, T2DM admitted to Telemetry with weakness , Lethargy, sepsis, and negative Blood C& S,and Multiple pauses from 12:20 Am to 3;30 am each 7-8 seconds PROCEDURES Insertion Single Chamber Ventricle Pacemaker INDICATIONS Sinus Arrest Multiple Pauses 7-8 seconds CONSCIOUS SEDATION AGENTS Versed Fentanyl IMPLANTED DEVICES Medtronic [id number]... Ventricular Lead ... MRI safe Pulse generator MICHELLE XT SR MRI safe OPERATIVE NOTE The patient was brought to the Cardiac Catheterization Laboratory in a fasting state and was prepped and draped in a sterile manner. The subcutaneous pocket was formed via blunt dissection, Percutaneous venous access was achieved and an introducer sheath was inserted into the Lt Subclavian vein. Through the introducer sheath, the ventricular lead wire was postitioned in the right ventricular apex utilizing fluoroscopic guidance. The ventricular was advanced over the wire under fluoroscopic guidance and positioned in the right ventricle. Capturing and sensing thresholds were verified. PPm was placed in Right pectoral region B/c pt has AV fistula in Left arm for dialysis THE VENTRICULAR ELECTRODE PARAMETERS R WAVE 6.0 THRESHOLD0.5 RESISTANCE 735 The ventricular lead was then secured using silk 0. The subcutaneous pocket was irrigated with Betadine. The ventricular lead was attached to the appropriate receptacle on the pulse generator and set screws firmly tightened to insure adequate contact and stability. The lead and pulse generator were placed into the subcutaneous pocket. Sharp and sponge counts were confirmed to be correct. At this time the pocket was closed subcutaneously with a vicryl 2.0 and the skin was closed with a Vicryl 4.0 .The operative site was dressed in sterile fashion. The patient tolerated the procedure well and was transferred to the floor in stable condition. COMPLICATIONS The patient tolerated the procedure well and there were no complications associated with the procedure. CONCLUSION Successful Implantation of VVIR ( MRI SAFE, pt can have MRI with this ppm), Arrangement has been made for F/u in ppm clinic in [facility]. CC; Dr. Driscoll
[2017-11-26] MEDS: Pantoprazole 40 mg EC Tab PO SCH (15:14)
--- NOTE | 2017-11-26 15:40 | CP.PCM.PN ---
<Ez Nuñez - Last Filed: 11/26/17 16:50> Subjective - Date & Time of Evaluation Date of Evaluation: 11/26/17 Time of Evaluation: 06:25 - Subjective Subjective: Ez Nuñez PGY-1 Progress Note for Hospitalist Service Patient seen and examined at bedside. Patient responded appropriately and denied any acute events overnight. Denies shortness of breath, CP and dizziness at this time. Objective - Vital Signs/Intake and Output Vital Signs (last 24 hours): Temp Pulse Resp BP Pulse Ox 97.5 F L 57 L 22 132/48 L 97 11/26/17 08:00 11/26/17 12:00 11/26/17 12:00 11/26/17 12:00 11/26/17 12:00 Intake and Output: 11/26/17 11/26/17 06:59 18:59 Intake Total 80 Output Total 0 Balance 80 - Medications Medications: Current Medications Albuterol/Ipratropium (Duoneb 3 Mg/0.5 Mg (3 Ml) Ud) 3 ml IH [id number] [facility] Last Admin: 11/26/17 13:45 Dose: Not Given Albuterol/Ipratropium (Duoneb 3 Mg/0.5 Mg (3 Ml) Ud) 3 ml IH Q2H PRN PRN Reason: Wheezing Amlodipine Besylate (Norvasc) 10 mg PO DAILY [facility] Aspirin (Aspirin) 325 mg PO DAILY [facility] Last Admin: 11/26/17 15:14 Dose: 325 mg Atorvastatin Calcium (Lipitor) 40 mg PO HS [facility] Last Admin: 11/25/17 21:57 Dose: 40 mg Calcium Acetate (Phoslo) 667 mg PO TID [facility] Last Admin: 11/26/17 15:14 Dose: 667 mg Carvedilol (Coreg) 6.25 mg PO 0800,1999 [facility] Cephalexin Monohydrate (Keflex) 250 mg PO TID [facility] PRN Reason: Protocol Stop: 11/30/17 23:59 Donepezil HCl (Aricept) 10 mg PO HS [facility] Last Admin: 11/25/17 21:57 Dose: 10 mg Doxazosin Mesylate (Cardura) 2 mg PO BID [facility] Last Admin: 11/26/17 09:36 Dose: Not Given Gabapentin (Neurontin) 100 mg PO [facility] PRN Reason: Protocol Last Admin: 11/25/17 21:57 Dose: 100 mg Heparin Sodium (Porcine) (Heparin) 5,000 units SC Q12 [facility] PRN Reason: Protocol Last Admin: 11/26/17 09:37 Dose: Not Given Hydralazine HCl (Apresoline) 100 mg PO BID [facility] Meropenem 250 mg/ Sodium (Chloride) 100 mls @ 100 mls/hr IVPB Q12H [facility] PRN Reason: Protocol Stop: 12/04/17 22:01 Last Admin: 11/26/17 10:17 Dose: 100 mls/hr Insulin Detemir (Levemir) 5 unit SC ACBHS [facility] Last Admin: 11/26/17 08:17 Dose: Not Given Insulin Human Regular (Humulin R Low) 0 units SC ACHS [facility] PRN Reason: Protocol Last Admin: 11/26/17 08:22 Dose: Not Given Lactobacillus Acidophilus (Bacid Acidophilus) 1 cap PO BID [facility] Last Admin: 11/26/17 09:36 Dose: Not Given Losartan Potassium (Cozaar) 100 mg PO DAILY [facility] Last Admin: 11/26/17 09:36 Dose: Not Given Memantine (Namenda) 5 mg PO DAILY [facility] Last Admin: 11/26/17 15:14 Dose: 5 mg Quhau-9-Csez Ethyl Esters (Lovaza) 1 gm PO BID [facility] Last Admin: 11/26/17 09:37 Dose: Not Given Pantoprazole Sodium (Protonix Ec Tab) 40 mg PO DAILY [facility] Last Admin: 11/26/17 15:14 Dose: 40 mg Tamsulosin HCl (Flomax) 0.4 mg PO DAILY [facility] Last Admin: 11/26/17 15:14 Dose: 0.4 mg - Labs Labs: 11/26/17 01:15 11/26/17 01:15 PT 12.5 SECONDS (9.4-12.5) 11/25/17 08:15 INR 1.09 (0.93-1.08) H 11/25/17 08:15 APTT 35.1 Seconds (25.1-36.5) 11/25/17 08:15 - Constitutional Appears: Well, Non-toxic, No Acute Distress - Head Exam Head Exam: ATRAUMATIC, NORMAL INSPECTION, NORMOCEPHALIC - Eye Exam Eye Exam: EOMI, Normal appearance - ENT Exam ENT Exam: Mucous Membranes Moist - Neck Exam Neck Exam: Full ROM - Respiratory Exam Respiratory Exam: Clear to Ausculation Bilateral, NORMAL BREATHING PATTERN. absent: Rales, Rhonchi, Wheezes - Cardiovascular Exam Cardiovascular Exam: RRR, +S1, +S2 Additional comments: cutaneously paced at 70 bpm - GI/Abdominal Exam GI & Abdominal Exam: Normal Bowel Sounds. absent: Guarding, Tenderness Additional comments: obese - Neurological Exam Neurological Exam: Alert, Awake, Oriented x3 - Psychiatric Exam Psychiatric exam: Normal Affect, Normal Mood - Skin Skin Exam: Dry, Intact, Normal Color, Warm Assessment and Plan - Assessment and Plan (Free Text) Assessment: Mr. Dangelo is a 77 year old male with pertinent medical history of recent osteomyelitis, ESRD on HD MWF, IDDM, HLD, Dementia, BPH, HTN, GERD who presented with generalized fatigue and subjective fevers. Patient was found to be septic with leukocytosis and fever of 100.9 on arrival. Patient was admitted for sepsis work up, ruling out foot vs. lung vs dialysis AV fistula as source of infection. Patient subsequently transferred to ICU after multiple episodes of several second pauses of asystole overnight. Carvedilol was discontinued, dopamine given. Plan is for single ventricle pacemaker placement today. Plan: SIRS of Unknown Source, likely 2/2 Osteomyelitis vs PNA vs Dialysis AV Fistula 2/4 Tachypnea, Febrile on admission, unknown source CXR significant for reticular nodular opacities in the lower lobes - ? atypical pneumonitis vs interstitial edema. Mild pulmonary venous congestion. Repeat CXR showed no active disease. ID Consult - Dr. Lance, f/u blood and urine cultures ordered Merrem renally dosed 250 mg BID Per ID, continue intermittent vanc and meropenem (day 2) pending wound culture. Appreciate further recommendations Asystole, possible 2/2 to beta june use vs heart block Patient had multiple episodes of asystole, lasting as long as 7 seconds last night Carvedilol discontinued, dopamine 5 drip administered Transferred to ICU, Cardiology consulted Patient to undergo cardiac cath with implantation of MRI safe single chamber ventricle pacemaker today, followed by HD Left foot infected ulcers Podiatry consulted (Dr. Espino), pt left foot cleansed with saline and dressed with xeroform and DSD Patient getting vanc after dialysis MWF Duplex checked at [facility] [place] Necrotic ulceration of 5th digit will likely need debridement but will currently hold off per podiatry will f/u on arterial duplex studies ESRD on HD, MWF Continue with [facility] Dr. on consult Hx Diabetes Cont Accuchecks ACHS RISS low, cont Home lantus 10 U HS Consistent carb/renal dialysis/HH diet f/u a1c Cont. gabapentin 100mg HS for neuropathy Hx BPH Cont. flomax 0.4mg daily Hx HLD Continue lovaza, home med atorvastatin 40mg HS, home ASA 325 f/u lipid panel Dementia Cont. memantine 5mg daily Cont. donepezil 10mg HS Prophylaxis Cont. protonix 40mg PO daily Cont. heparin 5000u sc q12h Patient seen, case reviewed, and plan agreed upon with Dr. Meza. Ez Nuñez, PGY-1 <Opal Meza - Last Filed: 11/26/17 17:35> Objective - Vital Signs/Intake and Output Vital Signs (last 24 hours): Temp Pulse Resp BP Pulse Ox 97 F L 60 20 129/80 97 11/26/17 17:04 11/26/17 17:04 11/26/17 17:04 11/26/17 17:04 11/26/17 12:00 Intake and Output: 11/26/17 11/26/17 06:59 18:59 Intake Total 80 300 Output Total 0 Balance 80 300 - Medications Medications: Current Medications Albuterol/Ipratropium (Duoneb 3 Mg/0.5 Mg (3 Ml) Ud) 3 ml IH [id number] [facility] Last Admin: 11/26/17 13:45 Dose: Not Given Albuterol/Ipratropium (Duoneb 3 Mg/0.5 Mg (3 Ml) Ud) 3 ml IH Q2H PRN PRN Reason: Wheezing Amlodipine Besylate (Norvasc) 10 mg PO DAILY [facility] Aspirin (Aspirin) 325 mg PO DAILY [facility] Last Admin: 11/26/17 15:14 Dose: 325 mg Atorvastatin Calcium (Lipitor) 40 mg PO HS [facility] Last Admin: 11/25/17 21:57 Dose: 40 mg Calcium Acetate (Phoslo) 667 mg PO TID [facility] Last Admin: 11/26/17 15:14 Dose: 667 mg Carvedilol (Coreg) 6.25 mg PO 0800,1999 [facility] Cephalexin Monohydrate (Keflex) 250 mg PO TID [facility] PRN Reason: Protocol Stop: 11/30/17 23:59 Donepezil HCl (Aricept) 10 mg PO HS [facility] Last Admin: 11/25/17 21:57 Dose: 10 mg Doxazosin Mesylate (Cardura) 2 mg PO BID [facility] Last Admin: 11/26/17 09:36 Dose: Not Given Gabapentin (Neurontin) 100 mg PO HS [facility] PRN Reason: Protocol Last Admin: 11/25/17 21:57 Dose: 100 mg Heparin Sodium (Porcine) (Heparin) 5,000 units SC Q12 [facility] PRN Reason: Protocol Last Admin: 11/26/17 09:37 Dose: Not Given Hydralazine HCl (Apresoline) 100 mg PO BID [facility] Meropenem 250 mg/ Sodium (Chloride) 100 mls @ 100 mls/hr IVPB Q12H [facility] PRN Reason: Protocol Stop: 12/04/17 22:01 Last Admin: 11/26/17 10:17 Dose: 100 mls/hr Insulin Detemir (Levemir) 5 unit SC [facility] Last Admin: 11/26/17 08:17 Dose: Not Given Insulin Human Regular (Humulin R Low) 0 units SC [facility] PRN Reason: Protocol Last Admin: 11/26/17 16:30 Dose: Not Given Lactobacillus Acidophilus (Bacid Acidophilus) 1 cap PO BID [facility] Last Admin: 11/26/17 09:36 Dose: Not Given Losartan Potassium (Cozaar) 100 mg PO DAILY [facility] Last Admin: 11/26/17 09:36 Dose: Not Given Memantine (Namenda) 5 mg PO DAILY [facility] Last Admin: 11/26/17 15:14 Dose: 5 mg [id number]-[id number] Ethyl Esters (Lovaza) 1 gm PO BID [facility] Last Admin: 11/26/17 09:37 Dose: Not Given Pantoprazole Sodium (Protonix Ec Tab) 40 mg PO DAILY [facility] Last Admin: 11/26/17 15:14 Dose: 40 mg Tamsulosin HCl (Flomax) 0.4 mg PO DAILY [facility] Last Admin: 11/26/17 15:14 Dose: 0.4 mg - Labs Labs: 11/26/17 01:15 11/26/17 01:15 PT 12.5 SECONDS (9.4-12.5) 11/25/17 08:15 INR 1.09 (0.93-1.08) H 11/25/17 08:15 APTT 35.1 Seconds (25.1-36.5) 11/25/17 08:15 Attending/Attestation - Attestation I have personally seen and examined this patient.: Yes I have fully participated in the care of the patient.: Yes I have reviewed all pertinent clinical information, including history, physical exam and plan: Yes Notes (Text): 11/26/17 17:31 77 year old male with past medical history of ESRD on HD (MWF), hypertension, diabetes and recent osteomyelitis on vancomycin during dialysis who was brought in by family for weakness and subjective fevers. In ER he was found to have fever 100.9 and leukocytosis 15.3. CXR shows reticular nodular opacities in the lower lobes which could represent atypical pneumonitis or interstitial edema and mild pulmonary venous congestion. Foot xray shows s/p surgical amputation of the 3rd toe with no radiographic evidence of osteomyelitis. He was started on iv antibiotics. ID and podiatry are following. Nephrology also following for hemodialysis. He is on insulin ss and levemir for diabetes. He was transferred to ICU overnight due to bradycardia and pauses. Metoprolol was held. Cardiology evaluation was appreciated and patient is s/p PPM. Opal Meza MD Hospitalist.
--- NOTE | 2017-11-26 19:07 | CARD ---
APPROVED REPORT Date of service: 11/26/2017 EKG Measurement Heart [id number] <Conclusion> Demand pacemaker, interpretation is based on intrinsic rhythm Sinus rhythm Left axis deviation Inferior infarct, age undetermined Abnormal ECG
--- NOTE | 2017-11-26 19:14 | CON ---
DATE: 11/26/2017 REASON FOR CONSULTATION: Bradycardia, severe anemia, ESRD. HISTORY OF PRESENTING ILLNESS: A 77-year-old male known to me from outpatient hemodialysis. The patient was admitted yesterday because he was not feeling right. He was feeling that he had a fever at home. He also complained of some cough. At the time of presentation to the emergency room, he had some cough, but no shortness of breath. Chest x-ray was done in the emergency room which showed possible pneumonia. The patient was admitted to the floor. On the floor, he became bradycardic. He was transferred to the ICU. Currently seen in the ICU. He is lying in bed. He is awake. He is alert. He is oriented x3. He denies any chest pain at present. He denies any shortness of breath. He denies any abdominal pain. He is scheduled for a pacemaker. He is currently receiving temporary pacing. 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 SOCIAL HISTORY: Ex-smoker, no alcohol use, no IV drug abuse. ALLERGIES: NO KNOWN DRUG ALLERGIES. MEDICATIONS AT HOME: Hydralazine, amlodipine, Flomax, losartan, Lipitor, aspirin, vancomycin on dialysis. REVIEW OF SYSTEMS: All systems are reviewed, pertinent positives as mentioned in history of presenting illness, rest unremarkable. PHYSICAL EXAMINATION: GENERAL: Obese elderly male, lying in bed in the ICU. VITAL SIGNS: Blood pressure 132/48, heart rate 57, respiratory rate 20, temperature 97.5, T-max is 100.9. HEENT: Normocephalic, atraumatic, positive pallor. NECK: Supple, no JVD. LUNGS: Bilateral equal air entry, bilateral equal expansion, no rales. CARDIAC: S1 and S2, regular rate and rhythm, no murmur, no rub. ABDOMEN: Obese, distended, soft, nontender, bowel sounds present. EXTREMITIES: Dressing of the right foot. INTAKE AND OUTPUT: Not charted. LABORATORY DATA: WBC 10.7, hemoglobin 7.9, hematocrit 27, platelets 161. Sodium 145, potassium 3.9, chloride 102, CO2 30, BUN 50, creatinine 7.7, glucose 74, calcium 7.8, phosphorus 5.3, magnesium 1.8, albumin 3.1, thyroxine 5.3. Blood cultures no growth. CURRENT MEDICATIONS: Hydralazine 100 b.i.d., Aricept, aspirin, Cardura 2 mg b.i.d., Coreg 6.25 b.i.d., Cozaar 100, DuoNeb, Flomax, insulin, Keflex 250 t.i.d., Levemir, meropenem 250 every 12, Namenda 5, gabapentin 100, amlodipine 10, PhosLo, Protonix. ASSESSMENT AND PLAN: 1. Fevers/pneumonia. 2. Severe anemia. 3. Symptomatic bradycardia. 4. Noninsulin-dependent diabetes mellitus. 5. Hypertension. 6. Osteomyelitis of the foot. 7. Phjeg-cy-bvwulfi anemia. 8. Chronic obstructive pulmonary disease. 9. (?) coronary artery disease. PLAN: 1. The patient is scheduled for permanent pacemaker placement. 2. The patient will receive dialysis post pacemaker placement. 3. Will arrange for 1 unit of blood transfusion on dialysis. 4. Check stool occults. 5. Check iron stores. 6. Consider GI evaluation. 7. Continue antibiotics as per ID recommendations. 8.. Case discussed with multiple consultants regarding this critically ill patient. More than 35 minutes spent in the care of this critically ill patient. Yadira Fox MD
--- NOTE | 2017-11-26 21:39 | CON ---
DATE: 11/26/2017 REASON FOR CONSULTATION AND FOLLOWUP: Multiple pauses started at 12 midnight from 7 to 8 seconds till 3:00 a.m. Patient is currently on external pacemaker and dopamine. BRIEF MEDICAL HISTORY AND HISTORY OF PRESENT ILLNESS: A 77-year-old male with past medical history significant for end-stage renal disease, on dialysis, Sunday, Sunday and Sunday; insulin-dependent diabetes; hypertension, presented with fever, generalized fatigue. Patient was recently seen in [facility] with osteomyelitis and was told to get vanco, Sunday, Sunday and Sunday during the dialysis for 6 weeks. Yesterday, the patient admitted to the floor 2R with shortness of breath, chest x-ray possible and pneumonia. Patient came yesterday with fever, weak, lethargic, maximum temperature of 100.9. So far, the blood cultures are negative after 24 hours. Last night, patient has mentioned a multiple pauses started at 12:30 a.m. until 3:30 with the patient moved to the ICU on dopamine and external pacemaker with multiple pauses. Patient was on the bed, remains asymptomatic. PAST MEDICAL HISTORY: History of diabetes, hypertension, hyperlipidemia, end-stage renal disease on dialysis, osteomyelitis of the foot and the patient was started on vancomycin Sunday, Sunday and Sunday and recently discharged from [facility]. SOCIAL HISTORY: Quit smoking 40 years ago. Drinks socially. Denies any history of substance abuse. Goes to Dr. Wilson, the ski topper. PREVIOUS CARDIAC WORKUP: As follows: Patient had echocardiography on 11/12/2017 at [facility] read by Dr. Villanueva, is mild concentric LVH, ventricular function is normal. Ejection fraction of 65%-70%. Tricuspid valve structure appears normal. No Doppler obtained. No mitral valve regurgitation noted or mitral valve prolapse noted. Dated 11/12/2017, read by Dr. Villanueva. REVIEW OF SYSTEMS: As per HPI. PHYSICAL EXAMINATION: VITAL SIGNS: Heart rate 69, external pacing, V paced rhythm, blood pressure 134/38. HEENT: PERRLA. Extraocular muscles intact. NECK: Supple. No carotid bruit or thyromegaly. CHEST: Clear to auscultation. HEART: S1 and S2 regular. ABDOMEN: Soft. EXTREMITIES: Clubbing and cyanosis negative. LABORATORY DATA: Blood workup as follows: WBC 10.7, hemoglobin 7.9, hematocrit 26.5, platelet count 161. Chemistries show sodium 145, potassium 3.9, chloride 102, carbon dioxide 30, anion gap 17, BUN 15, creatinine 7.7. IMPRESSION: Patient presented with fever, sepsis before. Blood culture so far is negative. Sinus multiple long pauses more than 7 to 8 seconds pause, started around at 12 to 12:30 a.m. until 4:00 a.m. Patient has an external pacer and on dopamine, hemodynamically stable. WBC count went down and blood culture remains negative for 24 hours, discussed with the family. We will proceed for pacemaker. Discussed with , Faizan Dangelo, telephone number [phone] as well as daughter, Alicia, [phone] Risks, benefits, alternatives were discussed. Agreeable to proceed for pacemaker. Further recommendation depending upon the pacemaker. Thank you, Dr. Meza, for providing us the opportunity in taking care of the patient, Shakeel Dangelo. Itz Whalen MD
[2017-11-27] MEDS: Albuterol-Ipratrop 3 mg / 0.5 (3 ml) UD IH SCH ×4 (01:05→19:14)
[2017-11-27 06:20] LABS: HEMOGLOBIN 9.2 g/dL (14.0-18.0); MEAN CORPUSCULAR HEMOGLOBIN 27.9 pg (25.0-35.0); MEAN CORPUSCULAR HGB CONC 30.9 g/dl (31.0-37.0); MEAN PLATELET VOLUME 10.9 fl (7.0-11.0); RBC 3.3 10^6/uL (3.5-6.1); RED CELL DISTRIBUTION WIDTH 17.3 % (11.5-14.5); WHITE BLOOD COUNT 7.8 10^3/ul (4.5-11.0)
[2017-11-27 06:35] LABS: MEAN CELL VOLUME 90.3 fl (80.0-105.0)
[2017-11-27 06:46] LABS: ALB/GLOB RATIO 1.2 (1.1-1.8); ALBUMIN 3.4 g/dL (3.0-4.8)
[2017-11-27 07:22] LABS: IRON 33 ug/dL (45-180)
[2017-11-27 07:32] LABS: % IRON SATURATION 16 % (20-55); TOTAL IRON BINDING CAPACITY 202 ug/dL (261-462)
[2017-11-27] MEDS: Insulin Reg-LOW-Coverage SC SCH ×3 (10:07→17:33)
[2017-11-27] MEDS: Pantoprazole 40 mg EC Tab PO SCH (10:23)
[2017-11-27] MEDS: Omega-3-Acid Ethyl Esters 1 GM Cap PO SCH ×2 (10:23→17:34)
[2017-11-27] MEDS: Insulin Detemir 100 units/ml Vial (Levemir) SC SCH ×2 (10:25→22:00)
[2017-11-27] MEDS: Lactobacillus Acidophilus 500 MU Cap PO SCH ×2 (10:29→17:34)
--- NOTE | 2017-11-27 11:05 | RAD ---
Date of service: 11/27/2017 HISTORY: S/p PPM R/o Pneumothorax COMPARISON: 11/26/2017 TECHNIQUE: Chest PA and lateral FINDINGS: LUNGS: Right basilar opacity new since prior. Possible pneumonia. Followup advised. PLEURA: Hazy opacity at both costophrenic angles may reflect small pleural effusions. CARDIOVASCULAR: Permanent pacemaker. No congestive change. OSSEOUS STRUCTURES: No significant abnormalities. VISUALIZED UPPER ABDOMEN: Normal. OTHER FINDINGS: None. IMPRESSION: Right basilar opacity. Possible pneumonia. Hazy opacity at both costophrenic angles may reflect small pleural effusions.
--- NOTE | 2017-11-27 14:05 | CP.PCM.PN ---
<Ez Nuñez - Last Filed: 11/27/17 16:09> Subjective - Date & Time of Evaluation Date of Evaluation: 11/27/17 Time of Evaluation: 06:00 - Subjective Subjective: Ez Nuñez PGY-1 Progress Note for Hospitalist Service Patient seen and evaluated at bedside. Patient denies shortness of breath and states no residual pain from pacemaker placement yesterday. Objective - Vital Signs/Intake and Output Vital Signs (last 24 hours): Temp Pulse Resp BP Pulse Ox 97.6 F 61 21 111/55 L 97 11/27/17 11:30 11/27/17 12:09 11/27/17 12:00 11/27/17 12:00 11/27/17 12:00 Intake and Output: 11/27/17 11/27/17 06:59 18:59 Intake Total 350 Output Total 270 Balance 80 - Medications Medications: Current Medications Albuterol/Ipratropium (Duoneb 3 Mg/0.5 Mg (3 Ml) Ud) 3 ml IH [id number] [facility] Last Admin: 11/27/17 07:27 Dose: 3 ml Albuterol/Ipratropium (Duoneb 3 Mg/0.5 Mg (3 Ml) Ud) 3 ml IH Q2H PRN PRN Reason: Wheezing Amlodipine Besylate (Norvasc) 10 mg PO DAILY [facility] Aspirin (Aspirin) 325 mg PO DAILY [facility] Last Admin: 11/27/17 10:23 Dose: 325 mg Atorvastatin Calcium (Lipitor) 40 mg PO HS [facility] Last Admin: 11/26/17 21:42 Dose: 40 mg Calcium Acetate (Phoslo) 667 mg PO TID [facility] Last Admin: 11/27/17 10:23 Dose: 667 mg Carvedilol (Coreg) 6.25 mg PO 0800,1999 [facility] Last Admin: 11/27/17 10:23 Dose: 6.25 mg Cephalexin Monohydrate (Keflex) 250 mg PO TID [facility] PRN Reason: Protocol Stop: 11/30/17 23:59 Last Admin: 11/27/17 10:26 Dose: 250 mg Clonidine HCl (Catapres) 0.1 mg PO BID PRN PRN Reason: For SBP>160 & OR diastolic>100 Darbepoetin Preet (Aranesp) 100 mcg IV ONCE ONE Stop: 11/28/17 06:01 Donepezil HCl (Aricept) 10 mg PO HS [facility] Last Admin: 11/26/17 21:42 Dose: 10 mg Doxazosin Mesylate (Cardura) 2 mg PO BID [facility] Last Admin: 11/27/17 10:23 Dose: 2 mg Gabapentin (Neurontin) 100 mg PO HS [facility] PRN Reason: Protocol Last Admin: 11/26/17 21:43 Dose: 100 mg Heparin Sodium (Porcine) (Heparin) 5,000 units SC Q12 [facility] PRN Reason: Protocol Last Admin: 11/27/17 10:23 Dose: 5,000 units Hydralazine HCl (Apresoline) 100 mg PO BID [facility] Last Admin: 11/27/17 10:26 Dose: 100 mg Meropenem 250 mg/ Sodium (Chloride) 100 mls @ 100 mls/hr IVPB Q12H [facility] PRN Reason: Protocol Stop: 12/04/17 22:01 Last Admin: 11/27/17 10:26 Dose: 100 mls/hr Iron Sucrose 100 mg/ Sodium (Chloride) 105 mls @ 210 mls/hr IVPB MWF ONE Stop: 11/28/17 06:29 Insulin Detemir (Levemir) 5 unit SC ACBHS [facility] Last Admin: 11/27/17 10:25 Dose: 5 units Insulin Human Regular (Humulin R Low) 0 units SC ACHS [facility] PRN Reason: Protocol Last Admin: 11/27/17 12:26 Dose: Not Given Lactobacillus Acidophilus (Bacid Acidophilus) 1 cap PO BID [facility] Last Admin: 11/27/17 10:29 Dose: 1 cap Losartan Potassium (Cozaar) 100 mg PO DAILY [facility] Last Admin: 11/27/17 10:23 Dose: 100 mg Memantine (Namenda) 5 mg PO DAILY [facility] Last Admin: 11/27/17 10:23 Dose: 5 mg Mylxo-2-Dhpr Ethyl Esters (Lovaza) 1 gm PO BID [facility] Last Admin: 11/27/17 10:23 Dose: 1 gm Pantoprazole Sodium (Protonix Ec Tab) 40 mg PO DAILY [facility] Last Admin: 11/27/17 10:23 Dose: 40 mg Tamsulosin HCl (Flomax) 0.4 mg PO DAILY [facility] Last Admin: 11/27/17 10:23 Dose: 0.4 mg - Labs Labs: 11/27/17 05:45 11/27/17 05:45 PT 12.5 SECONDS (9.4-12.5) 11/25/17 08:15 INR 1.09 (0.93-1.08) H 11/25/17 08:15 APTT 35.1 Seconds (25.1-36.5) 11/25/17 08:15 - Constitutional Appears: Well, Non-toxic - Head Exam Head Exam: ATRAUMATIC, NORMAL INSPECTION, NORMOCEPHALIC - Eye Exam Eye Exam: EOMI, Normal appearance, PERRL Pupil Exam: NORMAL ACCOMODATION - ENT Exam ENT Exam: Mucous Membranes Moist - Neck Exam Neck Exam: Full ROM, Normal Inspection - Respiratory Exam Respiratory Exam: Wheezes, NORMAL BREATHING PATTERN. absent: Rales, Rhonchi, Respiratory Distress - Cardiovascular Exam Cardiovascular Exam: RRR, +S1, +S2 Additional comments: Pacemaker in upper R chest without overlying erythema - GI/Abdominal Exam GI & Abdominal Exam: Soft. absent: Guarding, Tenderness, Rebound - Extremities Exam Additional comments: Left 5th toe eschar noted. No exudate. Wrapping dry. - Neurological Exam Neurological Exam: Alert, Awake, Oriented x3 - Psychiatric Exam Psychiatric exam: Normal Affect, Normal Mood - Skin Skin Exam: Normal Color, Warm Assessment and Plan - Assessment and Plan (Free Text) Assessment: Assessment: Mr. Dangelo is a 77 year old male with pertinent medical history of recent osteomyelitis, ESRD on HD MWF, IDDM, HLD, Dementia, BPH, HTN, GERD who presented with generalized fatigue and subjective fevers. Patient was found to be septic with leukocytosis and fever of 100.9 on arrival. Patient was admitted for sepsis work up, ruling out foot vs. lung vs dialysis AV fistula as source of infection. Patient subsequently transferred to ICU after multiple episodes of several second pauses of asystole overnight. Carvedilol was discontinued, dopamine given. Single ventricle pacemaker placement yesterday without issue, followed by HD. Plan: SIRS of Unknown Source, likely 2/2 Osteomyelitis vs PNA vs Dialysis AV Fistula 2/4 Tachypnea, Febrile on admission, unknown source CXR significant for reticular nodular opacities in the lower lobes - ? atypical pneumonitis vs interstitial edema. Mild pulmonary venous congestion. Repeat CXR today shows Right basilar opacity, possible PNA, and possible small pleural effusions at both costophrenic angles ID Consult - Dr. Lance, f/u blood and urine cultures Per ID, continue intermittent vanc and meropenem (day 3) pending wound culture. Currently on Merrem renally dosed 250 mg BID. Appreciate further recommendations regarding transitioning Meropenem to PO option based on bone scan Asystole, possible 2/2 to beta june use vs heart block - resolved Patient had multiple episodes of asystole, lasting as long as 7 seconds on . Pacemaker placed yesterday without issue. VSS. Carvedilol 6.25 resumed, dopamine drip discontinued. Cardiology consult - Dr. Whalen Left foot infected ulcers Podiatry consulted (Dr. Espino), pt left foot cleansed with saline and dressed with xeroform and DSD Patient getting vanc after dialysis MWF Necrotic ulceration of 5th digit will likely need debridement but will currently hold off per podiatry. F/U Bone scan to rule out active O/M No discharge noted today from left 5th toe. 1 unit PRBC transfused yesterday. Hgb stable today 9.2 Arterial duplex studies- posterior tibial artery, anterior tibial artery, and perforating artery at ankle level is strongly monophasic f/u physical therapy recommendations ESRD on HD, MWF Continue with Lars Coleman Dr. on consult Appreciate recommendations regarding intermittent Vancomycin use Hx Diabetes Cont Accuchecks ACHS RISS low, cont Home lantus 10 U HS Consistent carb/renal dialysis/HH diet f/u a1c Cont. gabapentin 100mg HS for neuropathy Hx BPH Cont. flomax 0.4mg daily Hx HLD Continue lovaza, home med atorvastatin 40mg HS, home ASA 325 f/u lipid panel Dementia Cont. memantine 5mg daily Cont. donepezil 10mg HS Prophylaxis Cont. protonix 40mg PO daily Cont. heparin 5000u sc q12h Disposition: Will consider downgrade to telemetry. Patient seen, case reviewed, and plan agreed upon with Dr. Zhong. Ez Nuñez, PGY-1 <Itz Zhong - Last Filed: 12/01/17 11:15> Objective - Vital Signs/Intake and Output Vital Signs (last 24 hours): Temp Pulse Resp BP Pulse Ox 97.3 F L 67 19 131/46 L 95 11/29/17 08:20 11/29/17 08:20 11/29/17 08:20 11/29/17 08:20 11/29/17 08:20 Intake and Output: 11/29/17 11/29/17 06:59 18:59 Intake Total 360 Balance 360 - Medications Medications: Current Medications Albuterol/Ipratropium (Duoneb 3 Mg/0.5 Mg (3 Ml) Ud) 3 ml IH [id number] [facility] Last Admin: 11/29/17 13:28 Dose: 3 ml Albuterol/Ipratropium (Duoneb 3 Mg/0.5 Mg (3 Ml) Ud) 3 ml IH Q2H PRN PRN Reason: Wheezing Amlodipine Besylate (Norvasc) 10 mg PO DAILY [facility] Aspirin (Aspirin) 325 mg PO DAILY [facility] Last Admin: 11/29/17 11:12 Dose: 325 mg Atorvastatin Calcium (Lipitor) 40 mg PO HS [facility] Last Admin: 11/28/17 22:12 Dose: 40 mg Calcium Acetate (Phoslo) 1,334 mg PO TID [facility] Last Admin: 11/29/17 11:12 Dose: 1,334 mg Carvedilol (Coreg) 6.25 mg PO 799,1999 [facility] Last Admin: 11/29/17 08:25 Dose: Not Given Clonidine HCl (Catapres) 0.1 mg PO BID PRN PRN Reason: For SBP>160 & OR diastolic>100 Collagenase (Santyl) 0 gm TOP DAILY [facility] Donepezil HCl (Aricept) 10 mg PO HS [facility] Last Admin: 11/28/17 22:12 Dose: 10 mg Doxazosin Mesylate (Cardura) 2 mg PO BID [facility] Last Admin: 11/29/17 11:13 Dose: 2 mg Gabapentin (Neurontin) 100 mg PO HS [facility] PRN Reason: Protocol Last Admin: 11/28/17 22:12 Dose: 100 mg Heparin Sodium (Porcine) (Heparin) 5,000 units SC Q12 [facility] PRN Reason: Protocol Last Admin: 11/29/17 11:11 Dose: 5,000 units Hydralazine HCl (Apresoline) 100 mg PO BID [facility] Last Admin: 11/29/17 11:13 Dose: 100 mg Meropenem 250 mg/ Sodium (Chloride) 100 mls @ 100 mls/hr IVPB Q12H [facility] PRN Reason: Protocol Stop: 12/04/17 22:01 Last Admin: 11/29/17 11:13 Dose: 100 mls/hr Vancomycin HCl (Vancomycin 1gm) 1 gm in 250 mls @ 167 mls/hr IVPB QOTHERDAY [facility] PRN Reason: Protocol Stop: 11/30/17 23:59 Last Admin: 11/28/17 12:02 Dose: 167 mls/hr Insulin Detemir (Levemir) 5 unit SC ACBHS [facility] Last Admin: 11/29/17 08:15 Dose: Not Given Insulin Human Regular (Humulin R Low) 0 units SC ACHS [facility] PRN Reason: Protocol Last Admin: 11/29/17 08:15 Dose: Not Given Lactobacillus Acidophilus (Bacid Acidophilus) 1 cap PO BID [facility] Last Admin: 11/29/17 11:12 Dose: 1 cap Losartan Potassium (Cozaar) 100 mg PO DAILY [facility] Last Admin: 11/29/17 11:13 Dose: 100 mg Memantine (Namenda) 5 mg PO DAILY [facility] Last Admin: 11/29/17 11:13 Dose: 5 mg [id number] Ethyl Esters (Lovaza) 1 gm PO BID [facility] Last Admin: 11/29/17 11:12 Dose: 1 gm Pantoprazole Sodium (Protonix Ec Tab) 40 mg PO DAILY [facility] Last Admin: 11/29/17 11:12 Dose: 40 mg Tamsulosin HCl (Flomax) 0.4 mg PO DAILY [facility] Last Admin: 11/29/17 11:12 Dose: 0.4 mg - Labs Labs: 11/29/17 07:30 11/29/17 07:30 PT 12.5 SECONDS (9.4-12.5) 11/25/17 08:15 INR 1.09 (0.93-1.08) H 11/25/17 08:15 APTT 35.1 Seconds (25.1-36.5) 11/25/17 08:15 Attending/Attestation - Attestation I have personally seen and examined this patient.: Yes I have fully participated in the care of the patient.: Yes I have reviewed all pertinent clinical information, including history, physical exam and plan: Yes Notes (Text): 12/01/17 11:13 Medical record note made by the resident after discussion with my direction and input after the patient was personally seen and examined by me. I have reviewed the chart and agree that the record accurately reflects by personal performance of the history, physical exam, data review, and medical decision-making, in the course for the patient. I have also personally directed the plan of care. 77 year old male with PMH of ESRD on HD , hypertension, diabetes and recent osteomyelitis on vancomycin during dialysis was admitted with weakness , fever 100.9 and leukocytosis 15.3. CXR shows reticular nodular opacities in the lower lobes which could represent atypical pneumonitis or interstitial edema and mild pulmonary venous congestion. Foot x-ray shows s/p surgical amputation of the 3rd toe with no radiographic evidence of osteomyelitis. He was started on iv antibiotics Meropenedm in addition to vancomycin. He was transferred to ICU due to bradycardia ,prolinged sinus pauses and is SP pacemaker. Patient bone scan is negative for osteomyelitis .Patient underwent debridement of wound on 11/29/17, on IV antibiotics as per ID.Patient is afebrile, will likely need to go [facility], ESRD on maintainace hemodialysis. Prognosis is guarded.
--- NOTE | 2017-11-27 14:32 | PN ---
DATE: 11/27/2017 REASON FOR CONSULTATION AND FOLLOWUP: Multiple pauses, started 12:00 at midnight, 7 to 8 seconds, until 3:00 a.m., status post permanent pacemaker. SUBJECTIVE: Patient denies chest pain, shortness of breath, or any palpitation. OBJECTIVE: GENERAL: Not in apparent distress. VITAL SIGNS: Temperature afebrile, heart rate 62, blood pressure 148/103. HEENT: PERRLA. Extraocular muscles intact. NECK: Supple. No carotid bruit or thyromegaly. CHEST: Clear to auscultation. HEART: S1, S2 regular. ABDOMEN: Soft. EXTREMITIES: Clubbing and cyanosis negative. LABORATORY DATA: WBC 7.8, hemoglobin 9.8, hematocrit 29.3, platelet count 153. Chemistry showed sodium 141, potassium 3.7, chloride 96, carbon dioxide 33, anion gap 16, BUN 37, creatinine 5.9. IMPRESSION: Sick sinus syndrome, sinusitis, multiple pauses, 7 to 8 seconds from 12:30 a.m. till 3:00 a.m., status post permanent pacemaker; history of end-stage renal disease on dialysis; hypertension. RECOMMENDATIONS: Continue right arm insulin for next 24 hours, continue dialysis, aggressive blood pressure control. We will put p.r.n. 100 mg of hydralazine, we will put 0.1 mg of clonidine for high blood pressure, continue atorvastatin, continue amlodipine. Patient had recently an echo on 11/12/2017 at [facility], read by Dr. Villanueva, mild concentric LVH, ejection fraction of 65%-70%. Tricuspid valve structure appears normal. No Doppler obtained. No mitral valve regurgitation noted. Dated 11/12/2017, read by Dr. Villanueva. Recommendation upon discharge. Patient will be followed by Dr. Wilson. Discussed with , Faizan. Thank you, Dr. Meza, for providing us the opportunity in taking care of the patient, Shakeel Dangelo. Patient is okayed to be transferred to telemetry. Itz Whalen MD
--- NOTE | 2017-11-27 16:24 | CP.PCM.PN ---
<Johnie Stoner - Last Filed: 11/27/17 16:21> Subjective - Date & Time of Evaluation Date of Evaluation: 11/27/17 Time of Evaluation: 16:21 - Subjective Subjective: Podiatry Progress Note- Dr. Gleason 77 y.o male seen and evaluated at bedside with attending Dr. Gleason for left foot ulcerations. Patient is seen resting comfortably in bed, in NAD. Family member seen at bedside during visitation. Patient appears to be asleep during visitation. Patient reports pain to the left foot. Denies nausea, fever, shortness of breath, chest pains or chills. Objective - Vital Signs/Intake and Output Vital Signs (last 24 hours): Temp Pulse Resp BP Pulse Ox 97.6 F 61 21 111/55 L 97 11/27/17 11:30 11/27/17 14:00 11/27/17 12:00 11/27/17 12:00 11/27/17 12:00 Intake and Output: 11/27/17 11/27/17 06:59 18:59 Intake Total 350 400 Output Total 270 Balance 80 400 - Medications Medications: Current Medications Albuterol/Ipratropium (Duoneb 3 Mg/0.5 Mg (3 Ml) Ud) 3 ml IH [id number] [facility] Last Admin: 11/27/17 14:11 Dose: 3 ml Albuterol/Ipratropium (Duoneb 3 Mg/0.5 Mg (3 Ml) Ud) 3 ml IH Q2H PRN PRN Reason: Wheezing Amlodipine Besylate (Norvasc) 10 mg PO DAILY [facility] Aspirin (Aspirin) 325 mg PO DAILY [facility] Last Admin: 11/27/17 10:23 Dose: 325 mg Atorvastatin Calcium (Lipitor) 40 mg PO HS [facility] Last Admin: 11/26/17 21:42 Dose: 40 mg Calcium Acetate (Phoslo) 667 mg PO TID [facility] Last Admin: 11/27/17 13:53 Dose: Not Given Carvedilol (Coreg) 6.25 mg PO 799,1999 [facility] Last Admin: 11/27/17 10:23 Dose: 6.25 mg Clonidine HCl (Catapres) 0.1 mg PO BID PRN PRN Reason: For SBP>160 & OR diastolic>100 Darbepoetin Preet (Aranesp) 100 mcg IV ONCE ONE Stop: 11/28/17 06:01 Donepezil HCl (Aricept) 10 mg PO HS [facility] Last Admin: 11/26/17 21:42 Dose: 10 mg Doxazosin Mesylate (Cardura) 2 mg PO BID [facility] Last Admin: 11/27/17 10:23 Dose: 2 mg Gabapentin (Neurontin) 100 mg PO HS [facility] PRN Reason: Protocol Last Admin: 11/26/17 21:43 Dose: 100 mg Heparin Sodium (Porcine) (Heparin) 5,000 units SC Q12 [facility] PRN Reason: Protocol Last Admin: 11/27/17 10:23 Dose: 5,000 units Hydralazine HCl (Apresoline) 100 mg PO BID [facility] Last Admin: 11/27/17 10:26 Dose: 100 mg Meropenem 250 mg/ Sodium (Chloride) 100 mls @ 100 mls/hr IVPB Q12H [facility] PRN Reason: Protocol Stop: 12/04/17 22:01 Last Admin: 11/27/17 10:26 Dose: 100 mls/hr Iron Sucrose 100 mg/ Sodium (Chloride) 105 mls @ 210 mls/hr IVPB MWF ONE Stop: 11/28/17 06:29 Insulin Detemir (Levemir) 5 unit SC ACBHS [facility] Last Admin: 11/27/17 10:25 Dose: 5 units Insulin Human Regular (Humulin R Low) 0 units SC ACHS [facility] PRN Reason: Protocol Last Admin: 11/27/17 12:26 Dose: Not Given Lactobacillus Acidophilus (Bacid Acidophilus) 1 cap PO BID [facility] Last Admin: 11/27/17 10:29 Dose: 1 cap Losartan Potassium (Cozaar) 100 mg PO DAILY [facility] Last Admin: 11/27/17 10:23 Dose: 100 mg Memantine (Namenda) 5 mg PO DAILY [facility] Last Admin: 11/27/17 10:23 Dose: 5 mg [id number] Ethyl Esters (Lovaza) 1 gm PO BID [facility] Last Admin: 11/27/17 10:23 Dose: 1 gm Pantoprazole Sodium (Protonix Ec Tab) 40 mg PO DAILY [facility] Last Admin: 11/27/17 10:23 Dose: 40 mg Tamsulosin HCl (Flomax) 0.4 mg PO DAILY [facility] Last Admin: 11/27/17 10:23 Dose: 0.4 mg - Labs Labs: 11/27/17 05:45 11/27/17 05:45 PT 12.5 SECONDS (9.4-12.5) 11/25/17 08:15 INR 1.09 (0.93-1.08) H 11/25/17 08:15 APTT 35.1 Seconds (25.1-36.5) 11/25/17 08:15 - Constitutional Appears: Well, Non-toxic, No Acute Distress - Extremities Exam Extremities Exam: absent: Calf Tenderness Additional comments: Bilateral LE focused Exam: VASC: DP/PT pulses are very faintly palpable 1/4 bilaterally, Cap refill time slightly delayed > 3 sec, skin temperature: warm to cool from proximal to distal , mild non-pitting edema noted on the dorsum of the left foot DERM: Ulceration on the dorsum of the 5th digi measuring approximately 2 cm x 3 cm with wound bed completely necrotic, unstageable depth dry, no active drainage , no malodor, no tunneling or tracking, no purulent drainage, localized erythema noted at the dorsum of the left forefoot, no clinical signs of infection Superficial ulcerations noted to dorsum of digits 1-4 with wound base being 100 % fibrotic. All wounds are negative for drainage, malodor, tunneling, tracking, undermining, erythema or clinical signs of infection Right foot blister noted to the dorsum of the 5th digit with serous drainage noted. No clinical signs of infection NEURO: Protective sensation and gross sensation diminished ORTHO: Pain present during palpation of the digits particularly the 5th digit - Psychiatric Exam Psychiatric exam: Normal Affect, Normal Mood Assessment and Plan - Assessment and Plan (Free Text) Assessment: 77 year old male with PMHx of IDDM, HTN, HLD, BPH, Dementia, GERD and ESRD was evaluated in the ED for superficial non-infected ulcerations on the dorsal aspect of the digits 1-4, and unstageable necrotic ulceration to 5th digit- all left foot. Right foot with 5th digit serous filled blister Plan: Patient seen and evaluated Discussed plan with attending Dr. Gleason Labs, vitals and charts reviewed - afebrile, WBC=7.8 No wound cultures needed at this time- no clinical signs of infection to left foot X-rays of left foot ordered/reviewed - Periosteal reaction with cortical break at the proximal phalanx of the left 5th digit - no subcutaneous emphysema noted Left foot painted with betadine, and forefoot with dsd and papertape -Necrotic ulceration of 5th digit will likely need debridement pending Arterial duplex/ABIs to assess blood flow to the digits Right foot 5th digit blister lanced after betadine prep, dressed with dsd and papertape Arterial duplex/ABIs ordered Arterial doppler performed at bedside- posterior tibial artery, anterior tibial artery, and perforating artery at the level of ankle joint is strongly monophasic Please dispense multipodus boots, to be worn at all times while in bed Podiatry to follow patient while in-house <Jose Gleason - Last Filed: 11/28/17 16:07> Objective - Vital Signs/Intake and Output Vital Signs (last 24 hours): Temp Pulse Resp BP Pulse Ox 98.4 F 60 20 146/60 96 11/28/17 06:00 11/28/17 13:50 11/28/17 06:00 11/28/17 13:50 11/28/17 06:00 Intake and Output: 11/28/17 11/28/17 06:59 18:59 Intake Total 480 Output Total 100 Balance 380 - Medications Medications: Current Medications Albuterol/Ipratropium (Duoneb 3 Mg/0.5 Mg (3 Ml) Ud) 3 ml IH [id number] [facility] Last Admin: 11/28/17 13:36 Dose: 3 ml Albuterol/Ipratropium (Duoneb 3 Mg/0.5 Mg (3 Ml) Ud) 3 ml IH Q2H PRN PRN Reason: Wheezing Amlodipine Besylate (Norvasc) 10 mg PO DAILY [facility] Aspirin (Aspirin) 325 mg PO DAILY [facility] Last Admin: 11/28/17 13:35 Dose: 325 mg Atorvastatin Calcium (Lipitor) 40 mg PO HS [facility] Last Admin: 11/27/17 21:57 Dose: 40 mg Calcium Acetate (Phoslo) 667 mg PO TID [facility] Last Admin: 11/28/17 13:47 Dose: Not Given Carvedilol (Coreg) 6.25 mg PO 0800,2000 [facility] Last Admin: 11/28/17 13:50 Dose: 6.25 mg Clonidine HCl (Catapres) 0.1 mg PO BID PRN PRN Reason: For SBP>160 & OR diastolic>100 Donepezil HCl (Aricept) 10 mg PO HS [facility] Last Admin: 11/27/17 21:59 Dose: 10 mg Doxazosin Mesylate (Cardura) 2 mg PO BID [facility] Last Admin: 11/28/17 13:48 Dose: 2 mg Gabapentin (Neurontin) 100 mg PO HS [facility] PRN Reason: Protocol Last Admin: 11/27/17 21:58 Dose: 100 mg Heparin Sodium (Porcine) (Heparin) 5,000 units SC Q12 [facility] PRN Reason: Protocol Last Admin: 11/28/17 13:36 Dose: 5,000 units Hydralazine HCl (Apresoline) 100 mg PO BID [facility] Last Admin: 11/28/17 13:35 Dose: 100 mg Meropenem 250 mg/ Sodium (Chloride) 100 mls @ 100 mls/hr IVPB Q12H [facility] PRN Reason: Protocol Stop: 12/04/17 22:01 Last Admin: 11/28/17 13:46 Dose: 100 mls/hr Vancomycin HCl (Vancomycin 1gm) 1 gm in 250 mls @ 167 mls/hr IVPB QOTHERDAY [facility] PRN Reason: Protocol Last Admin: 11/28/17 12:02 Dose: 167 mls/hr Insulin Detemir (Levemir) 5 unit SC ACBHS [facility] Last Admin: 11/28/17 07:30 Dose: Not Given Insulin Human Regular (Humulin R Low) 0 units SC ACHS [facility] PRN Reason: Protocol Last Admin: 11/28/17 11:30 Dose: Not Given Lactobacillus Acidophilus (Bacid Acidophilus) 1 cap PO BID [facility] Last Admin: 11/28/17 13:35 Dose: 1 cap Losartan Potassium (Cozaar) 100 mg PO DAILY [facility] Last Admin: 11/28/17 13:35 Dose: 100 mg Memantine (Namenda) 5 mg PO DAILY [facility] Last Admin: 11/28/17 13:35 Dose: 5 mg Fbkht-4-Vija Ethyl Esters (Lovaza) 1 gm PO BID [facility] Last Admin: 11/28/17 13:36 Dose: 1 gm Pantoprazole Sodium (Protonix Ec Tab) 40 mg PO DAILY [facility] Last Admin: 11/28/17 13:35 Dose: 40 mg Tamsulosin HCl (Flomax) 0.4 mg PO DAILY [facility] Last Admin: 11/28/17 13:35 Dose: 0.4 mg - Labs Labs: 11/28/17 06:40 11/28/17 06:40 PT 12.5 SECONDS (9.4-12.5) 11/25/17 08:15 INR 1.09 (0.93-1.08) H 11/25/17 08:15 APTT 35.1 Seconds (25.1-36.5) 11/25/17 08:15 Attending/Attestation - Attestation I have personally seen and examined this patient.: Yes I have fully participated in the care of the patient.: Yes I have reviewed all pertinent clinical information, including history, physical exam and plan: Yes
--- NOTE | 2017-11-27 17:17 | US ---
PROCEDURE: Lower extremity BEATRIZ exam HISTORY: Peripheral vascular disease. 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 Diabetes. Previous smoking. PHYSICIAN(S): Yong Womack MD. FINDINGS: The waveforms are somewhat limited by artifact The resting BEATRIZ's are likely inaccurate due to calcified vessels: Right, 1.12 and left, 1.2 The high thigh pressures and waveforms are relatively normal. The calf PVR waveforms augment normally. The calf PVR waveforms are relatively normal and symmetric The ankle and metatarsal waveforms are moderately blunted bilaterally. This is consistent with bilateral tibial disease. IMPRESSION: 1. Limited exam. 2. Bilateral tibial disease. 3. If clinically indicated, further evaluation with MRA with gadolinium runoff, CTA runoff, or conventional arteriography can be considered
[2017-11-28] MEDS: Albuterol-Ipratrop 3 mg / 0.5 (3 ml) UD IH SCH ×4 (05:06→20:15)
[2017-11-28] MEDS ORDERED: Darbepoetin Alfa 60 mcg/ml Inj IV ONE (06:00)
[2017-11-28 07:08] LABS: HEMOGLOBIN 9.7 g/dL (14.0-18.0); MEAN CELL VOLUME 89.7 fl (80.0-105.0); MEAN CORPUSCULAR HEMOGLOBIN 27.8 pg (25.0-35.0); MEAN PLATELET VOLUME 10.9 fl (7.0-11.0); RBC 3.49 10^6/uL (3.5-6.1); WHITE BLOOD COUNT 5.2 10^3/ul (4.5-11.0)
[2017-11-28] MEDS: Insulin Reg-LOW-Coverage SC SCH ×5 (07:20→22:13)
[2017-11-28 07:29] LABS: ALB/GLOB RATIO 1.1 (1.1-1.8); ALBUMIN 3.4 g/dL (3.0-4.8); CALCIUM 8.1 mg/dL (8.4-10.5)
[2017-11-28] MEDS: Insulin Detemir 100 units/ml Vial (Levemir) SC SCH ×2 (07:30→22:13)
--- NOTE | 2017-11-28 08:32 | PN ---
DATE: 11/27/2017 SUBJECTIVE: The patient is currently seen, having been transferred from the CCU to [facility]. He appears comfortable. He remains on IV antibiotic therapy for osteomyelitis of his foot and possible pneumonia. The patient was initially in the ICU for symptomatic bradycardia. He is status post placement of a permanent pacemaker done on 11/26/2017, by Dr. Whalen. MEDICATIONS: Medication list reviewed. The patient is currently on hydralazine, Aricept, aspirin, Bacid, Cardura, clonidine, Coreg, Cozaar, DuoNeb, Flomax, subcu heparin, sliding scale insulin, Keflex, Levemir, Lipitor, Lovaza, meropenem, Namenda, Neurontin, PhosLo, and Protonix. OBJECTIVE: INTAKE/OUTPUT: Intake is 1103, output is 2770. VITAL SIGNS: Blood pressure 111/55, pulse 61, temperature is 97.6 with a respiratory rate of 21, pulse ox is 97%. HEENT: Show him to be normocephalic, atraumatic. Conjunctivae are pale. Sclerae are nonicteric. NECK: Supple. No neck vein distention. CHEST: Clear to auscultation and percussion. No rales, rhonchi, or wheezing. CARDIOVASCULAR: Shows a permanent pacemaker in place. Normal S1, S2. No audible murmurs. No rubs or gallops. ABDOMEN: Soft. Mild distention. Bowel sounds present. No rebound or guarding. EXTREMITIES: Show dressing of his foot on the right side with a working AV fistula in the left upper extremity. LABORATORY DATA AND IMAGING: X-ray of the left foot showed amputation of the third toe with no radiographic evidence of osteomyelitis. He does have an age indeterminate fracture on the base of the proximal phalanx of the left fifth toe. No evidence for osteomyelitis. Labs: CBC: White blood cell count 7.8 down from 15.3, hemoglobin 9.2 with a platelet count of 153,000. Chemistries done today showed a BUN of 37 with a creatinine of 5.9. Calcium 8, phosphorus 5.1 with a magnesium of 1.9. Iron saturations were 16%. Ferritin was 245. Cholesterol was 126 with an albumin of 3.4. TSH level was mildly elevated at 4.89 with a normal free T4 level. Microbiology blood cultures are negative at 48 hours. The patient is status post transfusion of 1 unit of packed red blood cells. ASSESSMENT: 1. End-stage renal disease. The patient will continue Sunday, Sunday, and Sunday dialysis as per routine. He dialyzes normally at [facility] in [place]. 2. History of hypertension. Blood pressure controlled on present medical therapy. No change in current regimen. 3. History of [id number] diabetes mellitus, on sliding scale insulin. Glucose control is acceptable. 4. History of secondary hyperparathyroidism. Phosphorus level was 5.1 with a calcium of 8, corrects to a calcium level of 8.4. 5. Anemia. 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 6. History of symptomatic bradycardia, status post placement of permanent pacemaker. 7. Possible history of coronary artery disease. 8. Cellulitis of the left fifth toe with gangrenous changes, on antibiotic therapy. 9. Chronic obstructive pulmonary disease, currently stable. PLAN: 1. Continue antibiotic therapy as noted above. The patient is being treated for both a possible pneumonia and cellulitis of the left foot fifth toe. 2. If blood cultures remain negative, the patient may receive IV Venofer on dialysis with increase of Aranesp dose up to a maximum of 100 mcg a week. 3. Continue local wound care for his left fifth toe. 4. Continue sliding scale insulin with close monitoring of his sugar levels. 5. Hemodialysis tomorrow as per routine Sunday, Sunday, Sunday. Dustin Thomas MD
--- NOTE | 2017-11-28 10:30 | PN ---
DATE: 11/28/2017 REASON FOR THE CONSULTATION: Followup multiple pauses, status post permanent pacemaker, postop followup. PHYSICAL EXAMINATION: VITAL SIGNS: Temperature afebrile, heart rate 60, blood pressure 133/88. HEENT: PERRLA. Extraocular muscles intact. NECK: Supple. No carotid bruit. No thyromegaly. CHEST: Clear to auscultation. HEART: S1 and S2 regular. ABDOMEN: Soft. EXTREMITIES: Clubbing and cyanosis negative. LABORATORY DATA: Blood workup as follows; WBC is 5.8, hemoglobin , hematocrit 31.3, platelet count 162. Chemistry shows sodium 141, potassium 3.9, chloride 90, carbon dioxide 30, anion gap of 17, BUN 50, creatinine 7.7. IMPRESSION: A 77-year-old male with past medical history significant for end-stage renal disease, on dialysis; diabetes; hypertension; hyperlipidemia. Admitted with possible pneumonia, sepsis, found to be multiple pauses between 12:30 a.m. to 3:00 a.m., status post permanent pacemaker. So far, the blood culture remains negative. Peripheral artery disease, hypertension, hyperlipidemia, status post permanent pacemaker. RECOMMENDATION: Resume back Coreg, increase to 12.5 because of the hypertension; aspirin. Continue hydralazine p.r.n. Discontinue telemetry. Upon discharge, the patient would be followed up with Dr. Wilson. We will follow. Arrangement has been made for followup in the pacemaker clinic. We will send this report to Dr. Wilson. Itz Whalen MD
[2017-11-28] MEDS: Vancomycin 1gm in NS 250ml 1 GM/250 ML BAG IVPB SCH (12:02)
[2017-11-28] MEDS: Lactobacillus Acidophilus 500 MU Cap PO SCH ×2 (13:35→18:52)
[2017-11-28] MEDS: Pantoprazole 40 mg EC Tab PO SCH (13:35)
[2017-11-28] MEDS: Omega-3-Acid Ethyl Esters 1 GM Cap PO SCH ×2 (13:36→18:51)
[2017-11-28] MEDS ORDERED: Vancomycin 500mg in NS 500 MG/100 ML BAG IVPB SCH (14:00)
--- NOTE | 2017-11-28 14:50 | CP.PCM.PN ---
<Ez Nuñez - Last Filed: 11/28/17 16:30> Subjective - Date & Time of Evaluation Date of Evaluation: 11/28/17 Time of Evaluation: 06:45 - Subjective Subjective: Ez Nuñez PGY-1 Progress Note for Hospitalist Service Patient seen and evaluated at bedside. No acute events overnight. Denies pain in foot, chest pain, shortness of breath, and abdominal pain. Objective - Vital Signs/Intake and Output Vital Signs (last 24 hours): Temp Pulse Resp BP Pulse Ox 98.4 F 60 20 146/60 96 11/28/17 06:00 11/28/17 13:50 11/28/17 06:00 11/28/17 13:50 11/28/17 06:00 Intake and Output: 11/28/17 11/28/17 06:59 18:59 Intake Total 480 Output Total 100 Balance 380 - Medications Medications: Current Medications Albuterol/Ipratropium (Duoneb 3 Mg/0.5 Mg (3 Ml) Ud) 3 ml IH [id number] [facility] Last Admin: 11/28/17 13:36 Dose: 3 ml Albuterol/Ipratropium (Duoneb 3 Mg/0.5 Mg (3 Ml) Ud) 3 ml IH Q2H PRN PRN Reason: Wheezing Amlodipine Besylate (Norvasc) 10 mg PO DAILY [facility] Aspirin (Aspirin) 325 mg PO DAILY [facility] Last Admin: 11/28/17 13:35 Dose: 325 mg Atorvastatin Calcium (Lipitor) 40 mg PO HS [facility] Last Admin: 11/27/17 21:57 Dose: 40 mg Calcium Acetate (Phoslo) 667 mg PO TID [facility] Last Admin: 11/28/17 13:47 Dose: Not Given Carvedilol (Coreg) 6.25 mg PO 0800,1999 [facility] Last Admin: 11/28/17 13:50 Dose: 6.25 mg Clonidine HCl (Catapres) 0.1 mg PO BID PRN PRN Reason: For SBP>160 & OR diastolic>100 Donepezil HCl (Aricept) 10 mg PO HS [facility] Last Admin: 11/27/17 21:59 Dose: 10 mg Doxazosin Mesylate (Cardura) 2 mg PO BID [facility] Last Admin: 11/28/17 13:48 Dose: 2 mg Gabapentin (Neurontin) 100 mg PO HS [facility] PRN Reason: Protocol Last Admin: 11/27/17 21:58 Dose: 100 mg Heparin Sodium (Porcine) (Heparin) 5,000 units SC Q12 [facility] PRN Reason: Protocol Last Admin: 11/28/17 13:36 Dose: 5,000 units Hydralazine HCl (Apresoline) 100 mg PO BID [facility] Last Admin: 11/28/17 13:35 Dose: 100 mg Meropenem 250 mg/ Sodium (Chloride) 100 mls @ 100 mls/hr IVPB Q12H [facility] PRN Reason: Protocol Stop: 12/04/17 22:01 Last Admin: 11/28/17 13:46 Dose: 100 mls/hr Vancomycin HCl (Vancomycin 1gm) 1 gm in 250 mls @ 167 mls/hr IVPB QOTHERDAY [facility] PRN Reason: Protocol Last Admin: 11/28/17 12:02 Dose: 167 mls/hr Insulin Detemir (Levemir) 5 unit SC ACBHS [facility] Last Admin: 11/28/17 07:30 Dose: Not Given Insulin Human Regular (Humulin R Low) 0 units SC ACHS [facility] PRN Reason: Protocol Last Admin: 11/28/17 11:30 Dose: Not Given Lactobacillus Acidophilus (Bacid Acidophilus) 1 cap PO BID [facility] Last Admin: 11/28/17 13:35 Dose: 1 cap Losartan Potassium (Cozaar) 100 mg PO DAILY [facility] Last Admin: 11/28/17 13:35 Dose: 100 mg Memantine (Namenda) 5 mg PO DAILY [facility] Last Admin: 11/28/17 13:35 Dose: 5 mg Knaoo-5-Uydg Ethyl Esters (Lovaza) 1 gm PO BID [facility] Last Admin: 11/28/17 13:36 Dose: 1 gm Pantoprazole Sodium (Protonix Ec Tab) 40 mg PO DAILY [facility] Last Admin: 11/28/17 13:35 Dose: 40 mg Tamsulosin HCl (Flomax) 0.4 mg PO DAILY [facility] Last Admin: 11/28/17 13:35 Dose: 0.4 mg - Labs Labs: 11/28/17 06:40 11/28/17 06:40 PT 12.5 SECONDS (9.4-12.5) 11/25/17 08:15 INR 1.09 (0.93-1.08) H 11/25/17 08:15 APTT 35.1 Seconds (25.1-36.5) 11/25/17 08:15 - Constitutional Appears: Well, No Acute Distress - Head Exam Head Exam: ATRAUMATIC, NORMAL INSPECTION, NORMOCEPHALIC - Eye Exam Eye Exam: EOMI, Normal appearance, PERRL - ENT Exam ENT Exam: Mucous Membranes Moist - Neck Exam Neck Exam: Normal Inspection - Respiratory Exam Respiratory Exam: Decreased Breath Sounds, NORMAL BREATHING PATTERN. absent: Respiratory Distress - Cardiovascular Exam Cardiovascular Exam: RRR, +S1, +S2 Additional comments: Pacemaker in R upper chest. Overlying Skin intact. - Extremities Exam Additional comments: Bruit present in AV fistula in L upper arm - Neurological Exam Neurological Exam: Alert, Awake, Oriented x3 - Psychiatric Exam Psychiatric exam: Normal Affect, Normal Mood - Skin Skin Exam: Dry, Intact, Normal Color, Warm Assessment and Plan - Assessment and Plan (Free Text) Assessment: Assessment: Mr. Dangelo is a 77 year old male with pertinent medical history of recent osteomyelitis, ESRD on HD MWF, IDDM, HLD, Dementia, BPH, HTN, GERD who presented with generalized fatigue and subjective fevers. Patient was found to be septic with leukocytosis and fever of 100.9 on arrival. Patient was admitted for sepsis work up, ruling out foot vs. lung vs dialysis AV fistula as source of infection. Patient subsequently transferred to ICU after multiple episodes of several second pauses of asystole overnight. Carvedilol was discontinued, dopamine given. Single ventricle pacemaker placement without issue, followed by HD. Patient placed on telemetry. Plan: SIRS of Unknown Source, likely 2/2 Osteomyelitis vs PNA vs Dialysis AV Fistula 2/4 Tachypnea, Febrile on admission, unknown source CXR significant for reticular nodular opacities in the lower lobes - ? atypical pneumonitis vs interstitial edema. Mild pulmonary venous congestion. Repeat CXR today shows Right basilar opacity, possible PNA, and possible small pleural effusions at both costophrenic angles ID Consult - Dr. Lance, f/u blood and urine cultures Per ID, continue intermittent vanc and meropenem (day 4) pending wound culture. Currently on Merrem renally dosed 250 mg BID. Appreciate further recommendations regarding transitioning Meropenem to PO option based on bone scan Asystole, possible 2/2 to beta june use vs heart block - resolved Patient had multiple episodes of asystole, lasting as long as 7 seconds on . Pacemaker placed 11/26 without issue. VSS. Carvedilol increased to 12.5, and continue hydralazine 100 prn per cardio recs Cardiology consult - Dr. Whalen Left foot infected ulcers Podiatry consulted (Dr. Espino) Patient getting vanc after dialysis MWF Necrotic ulceration of 5th digit may need debridement - currently on hold per podiatry. No discharge noted today from left 5th toe. F/U Bone scan to rule out active O/M 1 unit PRBC transfused yesterday. Received darbopoeitin 100 mcg this morning. Hgb stable today 9.7 Arterial doppler studies- posterior tibial artery, anterior tibial artery, and perforating artery at ankle level is strongly monophasic Arterial duplex studies show bilateral tibial disease. Pulse palpable on posterior tibial and dorsalis pedis on Left foot. Will consider imaging study per podiatry recs f/u physical therapy recommendations ESRD on HD, MWF Continue with Lars Coleman Dr. on consult Received 1 gm Vancomycin with HD today Hx Diabetes Cont Accuchecks ACHS RISS low, cont Home lantus 10 U HS Consistent carb/renal dialysis/HH diet f/u a1c Cont. gabapentin 100mg HS for neuropathy Hx BPH Cont. flomax 0.4mg daily Hx HLD Continue lovaza, home med atorvastatin 40mg HS, home ASA 325 f/u lipid panel Dementia Cont. memantine 5mg daily Cont. donepezil 10mg HS Prophylaxis Cont. protonix 40mg PO daily Cont. heparin 5000u sc q12h Disposition: Cardio recommending off telemetry. Patient will f/u with Dr. Wilson in the pacemaker clinic upon discharge. F/u PT evaluation for placement once discharged. Patient seen, case reviewed, and plan agreed upon with Dr. Zhong. Ez Nuñez, PGY-1 <Itz Zhong - Last Filed: 12/01/17 11:16> Objective - Vital Signs/Intake and Output Vital Signs (last 24 hours): Temp Pulse Resp BP Pulse Ox 97.9 F 63 20 116/60 96 12/01/17 08:10 12/01/17 08:10 12/01/17 08:10 12/01/17 10:10 12/01/17 08:10 Intake and Output: 12/01/17 12/01/17 06:59 18:59 Intake Total 100 Output Total 250 Balance -150 - Medications Medications: Current Medications Albuterol/Ipratropium (Duoneb 3 Mg/0.5 Mg (3 Ml) Ud) 3 ml IH [id number] [facility] Last Admin: 12/01/17 08:17 Dose: 3 ml Albuterol/Ipratropium (Duoneb 3 Mg/0.5 Mg (3 Ml) Ud) 3 ml IH Q2H PRN PRN Reason: Wheezing Amlodipine Besylate (Norvasc) 10 mg PO DAILY [facility] Aspirin (Aspirin) 325 mg PO DAILY [facility] Last Admin: 12/01/17 10:04 Dose: 325 mg Atorvastatin Calcium (Lipitor) 40 mg PO HS [facility] Last Admin: 11/30/17 21:47 Dose: 40 mg Calcium Acetate (Phoslo) 1,334 mg PO TID [facility] Last Admin: 12/01/17 10:05 Dose: 1,334 mg Carvedilol (Coreg) 6.25 mg PO 799,1999 [facility] Last Admin: 12/01/17 10:10 Dose: 6.25 mg Clonidine HCl (Catapres) 0.1 mg PO BID PRN PRN Reason: For SBP>160 & OR diastolic>100 Collagenase (Santyl) 0 gm TOP DAILY [facility] Last Admin: 12/01/17 10:06 Dose: 1 applic Donepezil HCl (Aricept) 10 mg PO HS [facility] Last Admin: 11/30/17 21:47 Dose: 10 mg Doxazosin Mesylate (Cardura) 2 mg PO BID [facility] Last Admin: 12/01/17 10:10 Dose: 2 mg Gabapentin (Neurontin) 100 mg PO HS [facility] PRN Reason: Protocol Last Admin: 11/30/17 21:47 Dose: 100 mg Heparin Sodium (Porcine) (Heparin) 5,000 units SC Q12 [facility] PRN Reason: Protocol Last Admin: 12/01/17 10:09 Dose: 5,000 units Hydralazine HCl (Apresoline) 100 mg PO BID [facility] Last Admin: 12/01/17 10:04 Dose: Not Given Meropenem 250 mg/ Sodium (Chloride) 100 mls @ 100 mls/hr IVPB Q12H [facility] PRN Reason: Protocol Stop: 12/04/17 22:01 Last Admin: 12/01/17 10:07 Dose: 100 mls/hr Insulin Detemir (Levemir) 5 unit SC ACBHS [facility] Last Admin: 12/01/17 07:08 Dose: 5 units Insulin Human Regular (Humulin R Low) 0 units SC [facility] PRN Reason: Protocol Last Admin: 12/01/17 08:04 Dose: Not Given Lactobacillus Acidophilus (Bacid Acidophilus) 1 cap PO BID [facility] Last Admin: 12/01/17 10:11 Dose: 1 cap Losartan Potassium (Cozaar) 100 mg PO DAILY [facility] Last Admin: 12/01/17 10:14 Dose: 100 mg Memantine (Namenda) 5 mg PO DAILY [facility] Last Admin: 12/01/17 10:07 Dose: 5 mg [id number] Ethyl Esters (Lovaza) 1 gm PO BID [facility] Last Admin: 12/01/17 10:07 Dose: 1 gm Pantoprazole Sodium (Protonix Ec Tab) 40 mg PO DAILY [facility] Last Admin: 12/01/17 10:05 Dose: 40 mg Tamsulosin HCl (Flomax) 0.4 mg PO DAILY [facility] Last Admin: 12/01/17 10:09 Dose: 0.4 mg - Labs Labs: 11/30/17 06:00 11/30/17 06:00 PT 12.5 SECONDS (9.4-12.5) 11/25/17 08:15 INR 1.09 (0.93-1.08) H 11/25/17 08:15 APTT 35.1 Seconds (25.1-36.5) 11/25/17 08:15 Attending/Attestation - Attestation I have personally seen and examined this patient.: Yes I have fully participated in the care of the patient.: Yes I have reviewed all pertinent clinical information, including history, physical exam and plan: Yes Notes (Text): 12/01/17 11:15 Medical record note made by the resident after discussion with my direction and input after the patient was personally seen and examined by me. I have reviewed the chart and agree that the record accurately reflects by personal performance of the history, physical exam, data review, and medical decision-making, in the course for the patient. I have also personally directed the plan of care.
--- NOTE | 2017-11-28 17:18 | CP.PCM.PN ---
Subjective - Date & Time of Evaluation Date of Evaluation: 11/28/17 Time of Evaluation: 16:59 - Subjective Subjective: Podiatry Progress Note- Dr. Gleason/Dr. Maher 77 y.o male seen and evaluated at bedside with attending Dr. Maher for bilateral foot ulcerations including left 5th digit necrotic tissue. Patient is seen resting comfortably in bed, in NAD. Patient reports pain to the left foot. Denies nausea, fever, shortness of breath, chest pains or chills. Objective - Vital Signs/Intake and Output Vital Signs (last 24 hours): Temp Pulse Resp BP Pulse Ox 98.4 F 60 20 146/60 96 11/28/17 06:00 11/28/17 13:50 11/28/17 06:00 11/28/17 13:50 11/28/17 06:00 Intake and Output: 11/28/17 11/28/17 06:59 18:59 Intake Total 480 Output Total 100 Balance 380 - Medications Medications: Current Medications Albuterol/Ipratropium (Duoneb 3 Mg/0.5 Mg (3 Ml) Ud) 3 ml IH [id number] [facility] Last Admin: 11/28/17 13:36 Dose: 3 ml Albuterol/Ipratropium (Duoneb 3 Mg/0.5 Mg (3 Ml) Ud) 3 ml IH Q2H PRN PRN Reason: Wheezing Amlodipine Besylate (Norvasc) 10 mg PO DAILY [facility] Aspirin (Aspirin) 325 mg PO DAILY [facility] Last Admin: 11/28/17 13:35 Dose: 325 mg Atorvastatin Calcium (Lipitor) 40 mg PO HS [facility] Last Admin: 11/27/17 21:57 Dose: 40 mg Calcium Acetate (Phoslo) 1,334 mg PO TID [facility] Carvedilol (Coreg) 6.25 mg PO 0800,1999 [facility] Last Admin: 11/28/17 13:50 Dose: 6.25 mg Clonidine HCl (Catapres) 0.1 mg PO BID PRN PRN Reason: For SBP>160 & OR diastolic>100 Donepezil HCl (Aricept) 10 mg PO HS [facility] Last Admin: 11/27/17 21:59 Dose: 10 mg Doxazosin Mesylate (Cardura) 2 mg PO BID [facility] Last Admin: 11/28/17 13:48 Dose: 2 mg Gabapentin (Neurontin) 100 mg PO HS [facility] PRN Reason: Protocol Last Admin: 11/27/17 21:58 Dose: 100 mg Heparin Sodium (Porcine) (Heparin) 5,000 units SC Q12 [facility] PRN Reason: Protocol Last Admin: 11/28/17 13:36 Dose: 5,000 units Hydralazine HCl (Apresoline) 100 mg PO BID [facility] Last Admin: 11/28/17 13:35 Dose: 100 mg Meropenem 250 mg/ Sodium (Chloride) 100 mls @ 100 mls/hr IVPB Q12H [facility] PRN Reason: Protocol Stop: 12/04/17 22:01 Last Admin: 11/28/17 13:46 Dose: 100 mls/hr Vancomycin HCl (Vancomycin 1gm) 1 gm in 250 mls @ 167 mls/hr IVPB QOTHERDAY [facility] PRN Reason: Protocol Last Admin: 11/28/17 12:02 Dose: 167 mls/hr Insulin Detemir (Levemir) 5 unit SC ACBHS [facility] Last Admin: 11/28/17 07:30 Dose: Not Given Insulin Human Regular (Humulin R Low) 0 units SC ACHS [facility] PRN Reason: Protocol Last Admin: 11/28/17 16:36 Dose: Not Given Lactobacillus Acidophilus (Bacid Acidophilus) 1 cap PO BID [facility] Last Admin: 11/28/17 13:35 Dose: 1 cap Losartan Potassium (Cozaar) 100 mg PO DAILY [facility] Last Admin: 11/28/17 13:35 Dose: 100 mg Memantine (Namenda) 5 mg PO DAILY [facility] Last Admin: 11/28/17 13:35 Dose: 5 mg [id number] Ethyl Esters (Lovaza) 1 gm PO BID [facility] Last Admin: 11/28/17 13:36 Dose: 1 gm Pantoprazole Sodium (Protonix Ec Tab) 40 mg PO DAILY [facility] Last Admin: 11/28/17 13:35 Dose: 40 mg Tamsulosin HCl (Flomax) 0.4 mg PO DAILY [facility] Last Admin: 11/28/17 13:35 Dose: 0.4 mg - Labs Labs: 11/28/17 06:40 11/28/17 06:40 PT 12.5 SECONDS (9.4-12.5) 11/25/17 08:15 INR 1.09 (0.93-1.08) H 11/25/17 08:15 APTT 35.1 Seconds (25.1-36.5) 11/25/17 08:15 - Constitutional Appears: Well, Non-toxic, No Acute Distress - Extremities Exam Extremities Exam: absent: Calf Tenderness Additional comments: Bilateral LE focused Exam: VASC: DP/PT pulses are very faintly palpable 1/4 bilaterally, Cap refill time slightly delayed > 3 sec, skin temperature: warm to cool from proximal to distal , mild non-pitting edema noted on the dorsum of the left foot DERM: Ulceration on the dorsum of the 5th digi measuring approximately 2 cm x 3 cm with wound bed completely necrotic, unstageable depth dry, no active drainage , no malodor, no tunneling or tracking, no purulent drainage, localized erythema noted at the dorsum of the left forefoot, no clinical signs of infection Superficial ulcerations noted to dorsum of digits 1-4 with wound base being 100 % fibrotic. All wounds are negative for drainage, malodor, tunneling, tracking, undermining, erythema or clinical signs of infection Right foot blister noted to the dorsum of the 5th digit with serous drainage noted. No clinical signs of infection NEURO: Protective sensation and gross sensation diminished ORTHO: Pain present during palpation of the digits particularly the 5th digit - Neurological Exam Neurological Exam: Alert, Awake, Oriented x3 - Psychiatric Exam Psychiatric exam: Normal Affect, Normal Mood Assessment and Plan - Assessment and Plan (Free Text) Assessment: 77 year old male with PMHx of IDDM, HTN, HLD, BPH, Dementia, GERD and ESRD was evaluated in the ED for superficial non-infected ulcerations on the dorsal aspect of the digits 1-4, and unstageable necrotic ulceration to 5th digit- all left foot. Right foot with 5th digit serous filled blister Plan: Patient seen and evaluated Discussed plan with attending Dr. Maher Labs, vitals and charts reviewed - afebrile, WBC=5.2 No wound cultures needed at this time- no clinical signs of infection to left foot X-rays of left foot ordered/reviewed - Periosteal reaction with cortical break at the proximal phalanx of the left 5th digit - no subcutaneous emphysema noted Right foot 5th digit blister lanced after betadine prep, dressed with dsd and papertape Arterial duplex/ABIs- likely calcified vessels Right 1.12, Left 1.2 Left foot painted with betadine, and forefoot. Attempted to debride left 5th digit necrotic tissue however too painful for patient to tolerate. Patient request to be done tomorrow. Tomorrow will try to debride again in AM. Will order 1%lidocaine plain to give local anesthesia to site prior to debridement. Will give Dilaudid and Ativan prior to starting debridement as well Discussed the plan with patient. Explained all the benefits, risks, alternatives , and complications. Patient understands and agrees Please dispense multipodus boots, to be worn at all times while in bed Podiatry to follow patient while in-house
--- NOTE | 2017-11-28 18:33 | CARD ---
APPROVED REPORT Date of service: 11/28/2017 EKG Measurement Heart [id number] <Conclusion> Sinus rhythm with 1st degree AV block Possible Left atrial enlargement Anterior infarct, age undetermined Abnormal ECG
--- NOTE | 2017-11-28 20:52 | PN ---
DATE: 11/28/2017 SUBJECTIVE: The patient is seen lying in bed. He is awake, he is alert. He is just coming back from dialysis. He seems a little disoriented. PHYSICAL EXAMINATION: GENERAL: Elderly male lying in bed. VITAL SIGNS: Blood pressure 146/60, heart rate 60, respiratory rate 18, and temperature 98.6. HEENT: Normocephalic, atraumatic, positive pallor. NECK: Supple, no JVD. LUNGS: Bilateral equal air entry, bilateral equal expansion, no rales. CARDIAC: S1 and S2, regular rate and rhythm, no murmur, no rub. ABDOMEN: Obese, distended, soft, nontender, bowel sounds present. EXTREMITIES: Trace lower extremity edema. INTAKE AND OUTPUT: 1120/100 LABORATORY DATA: WBC 5, hemoglobin 9.7, hematocrit 31, and platelets 162. Sodium 141, potassium 3.9, chloride 98, CO2 of 30. BUN 50, creatinine 7.7. Glucose 79. Calcium 8.1, phosphorus 5.8 magnesium 2.1. AST 19, ALT 14. CURRENT MEDICATIONS: Hydralazine 100 b.i.d., Aricept 10, aspirin 325, Cardura 2 mg t.i.d., clonidine 0.1 b.i.d., Coreg 6.25 b.i.d., losartan 100, Flomax 0.4, Lipitor 40, Merrem 250 every 12 hours, Namenda 5, gabapentin, amlodipine 10, PhosLo 667 t.i.d. ASSESSMENT AND PLAN: 1. Symptomatic bradycardia/pauses, now status post permanent pacemaker. 2. Multilobar pneumonia. 3. End-stage renal disease. 4. Anemia of chronic kidney disease. 5. Dementia. 6. Yvh-vbzmlcg-pefacvhip diabetes mellitus. 7. Hypertension. 8. Hyperlipidemia. PLAN: 1. Stable dialysis. 2. Increase phosphate binders. 3. Continue Coreg 12.5 b.i.d. 4. Discharge plan. Yadira Fox MD
--- NOTE | 2017-11-28 22:40 | PN ---
DATE: 11/28/2017 SUBJECTIVE: The patient is seen early this morning. No fevers, no chills. No nausea, no vomiting. PHYSICAL EXAMINATION: VITAL SIGNS: Temperature is 98, blood pressure is 120/70, respiratory rate of 16. HEENT: Unremarkable. NECK: Supple. LUNGS: Have decreased breath sounds. HEART: Normal S1, S2. ABDOMEN: Soft, nontender. EXTREMITIES: Examination of foot is noted. LABORATORY DATA: Reveals the patient's white count of 3.6, hemoglobin of 9. Chemistries are noted. BUN of 50, creatinine of 7.1. Microbiology reveals the blood cultures are negative, nasal MRSA screen . The patient is scheduled for a bone scan. Medications include vancomycin and meropenem. ASSESSMENT AND PLAN: This is a 77-year-old male who was seen earlier today with severe sepsis, left foot cellulitis, left fifth toe gangrene, must rule out underlying osteomyelitis. The patient with underlying peripheral artery disease, diabetes, hypertension, morbid obesity, on intermittent vancomycin and meropenem, day #4. Awaiting for bone scan and podiatric input and vascular input. Long Lance MD
--- NOTE | 2017-11-29 01:30 | PN ---
DATE: 11/27/2017 SUBJECTIVE: The patient was seen. No fevers, no chills. No nausea, no vomiting. PHYSICAL EXAMINATION: VITAL SIGNS: Temperature 98, blood pressure 120/80, respiratory rate 18. HEENT: Unremarkable. NECK: Supple. LUNGS: Decreased breath sounds. HEART: Normal S1 and S2. ABDOMEN: Soft, nontender. LABORATORY DATA: Reviewed. Examination of foot is noted. ASSESSMENT AND PLAN: This is a 77-year-old male, who was seen on 11/27/2017, with severe sepsis, left foot cellulitis, left fifth toe gangrene. The patient with end-stage renal disease, on hemodialysis; diabetes, hypertension, on intermittent vancomycin, meropenem, day #3, we will continue with the present course. Long Lance MD
[2017-11-29] MEDS: Albuterol-Ipratrop 3 mg / 0.5 (3 ml) UD IH SCH ×4 (02:26→20:01)
[2017-11-29] MEDS ORDERED: Lidocaine 1% Inj (20ml) IJ ONE ×2 (06:00→11:45)
[2017-11-29 08:08] LABS: HEMOGLOBIN 9.5 g/dL (14.0-18.0); MEAN CELL VOLUME 89.3 fl (80.0-105.0); MEAN CORPUSCULAR HEMOGLOBIN 28.3 pg (25.0-35.0); MEAN CORPUSCULAR HGB CONC 31.7 g/dl (31.0-37.0); MEAN PLATELET VOLUME 10.7 fl (7.0-11.0); RBC 3.36 10^6/uL (3.5-6.1); RED CELL DISTRIBUTION WIDTH 16.5 % (11.5-14.5); WHITE BLOOD COUNT 4.5 10^3/ul (4.5-11.0)
[2017-11-29] MEDS: Insulin Detemir 100 units/ml Vial (Levemir) SC SCH ×2 (08:15→21:30)
[2017-11-29] MEDS: Insulin Reg-LOW-Coverage SC SCH ×4 (08:15→21:30)
[2017-11-29 08:16] LABS: ALB/GLOB RATIO 1.1 (1.1-1.8); ALBUMIN 3.3 g/dL (3.0-4.8); CALCIUM 8.1 mg/dL (8.4-10.5)
[2017-11-29] MEDS: Omega-3-Acid Ethyl Esters 1 GM Cap PO SCH ×2 (11:12→17:44)
[2017-11-29] MEDS: Pantoprazole 40 mg EC Tab PO SCH (11:12)
[2017-11-29] MEDS: Lactobacillus Acidophilus 500 MU Cap PO SCH ×2 (11:12→17:44)
--- NOTE | 2017-11-29 11:15 | CP.PCM.PN ---
Subjective - Date & Time of Evaluation Date of Evaluation: 11/29/17 Time of Evaluation: 06:50 - Subjective Subjective: Awake, denies chest pain, denies shortness of breath Reason for consultation and follow up: Status post pacemaker for multiple pauses , history of ESRD, hypertension, peripheral artery disease,hyperlipidemia. Seen and examined by me and Dr. Whalen Objective - Vital Signs/Intake and Output Vital Signs (last 24 hours): Temp Pulse Resp BP Pulse Ox 97.3 F L 67 19 131/46 L 95 11/29/17 08:20 11/29/17 08:20 11/29/17 08:20 11/29/17 08:20 11/29/17 08:20 Intake and Output: 11/29/17 11/29/17 06:59 18:59 Intake Total 360 Balance 360 - Medications Medications: Current Medications Albuterol/Ipratropium (Duoneb 3 Mg/0.5 Mg (3 Ml) Ud) 3 ml IH [id number] [facility] Last Admin: 11/29/17 07:38 Dose: 3 ml Albuterol/Ipratropium (Duoneb 3 Mg/0.5 Mg (3 Ml) Ud) 3 ml IH Q2H PRN PRN Reason: Wheezing Amlodipine Besylate (Norvasc) 10 mg PO DAILY [facility] Aspirin (Aspirin) 325 mg PO DAILY [facility] Last Admin: 11/28/17 13:35 Dose: 325 mg Atorvastatin Calcium (Lipitor) 40 mg PO HS [facility] Last Admin: 11/28/17 22:12 Dose: 40 mg Calcium Acetate (Phoslo) 1,334 mg PO TID [facility] Last Admin: 11/28/17 18:51 Dose: 1,334 mg Carvedilol (Coreg) 6.25 mg PO 799,1999 [facility] Last Admin: 11/28/17 22:21 Dose: 6.25 mg Clonidine HCl (Catapres) 0.1 mg PO BID PRN PRN Reason: For SBP>160 & OR diastolic>100 Donepezil HCl (Aricept) 10 mg PO HS [facility] Last Admin: 11/28/17 22:12 Dose: 10 mg Doxazosin Mesylate (Cardura) 2 mg PO BID [facility] Last Admin: 11/28/17 18:50 Dose: 2 mg Gabapentin (Neurontin) 100 mg PO [facility] PRN Reason: Protocol Last Admin: 11/28/17 22:12 Dose: 100 mg Heparin Sodium (Porcine) (Heparin) 5,000 units SC Q12 [facility] PRN Reason: Protocol Last Admin: 11/28/17 22:12 Dose: 5,000 units Hydralazine HCl (Apresoline) 100 mg PO BID [facility] Last Admin: 11/28/17 18:50 Dose: 100 mg Meropenem 250 mg/ Sodium (Chloride) 100 mls @ 100 mls/hr IVPB Q12H [facility] PRN Reason: Protocol Stop: 12/04/17 22:01 Last Admin: 11/28/17 22:12 Dose: 100 mls/hr Vancomycin HCl (Vancomycin 1gm) 1 gm in 250 mls @ 167 mls/hr IVPB QOTHERDAY [facility] PRN Reason: Protocol Stop: 11/30/17 23:59 Last Admin: 11/28/17 12:02 Dose: 167 mls/hr Insulin Detemir (Levemir) 5 unit SC ACBHS [facility] Last Admin: 11/28/17 22:13 Dose: Not Given Insulin Human Regular (Humulin R Low) 0 units SC ACHS [facility] PRN Reason: Protocol Last Admin: 11/28/17 22:13 Dose: Not Given Lactobacillus Acidophilus (Bacid Acidophilus) 1 cap PO BID [facility] Last Admin: 11/28/17 18:52 Dose: 1 cap Losartan Potassium (Cozaar) 100 mg PO DAILY [facility] Last Admin: 11/28/17 13:35 Dose: 100 mg Memantine (Namenda) 5 mg PO DAILY [facility] Last Admin: 11/28/17 13:35 Dose: 5 mg Llphg-4-Yjcg Ethyl Esters (Lovaza) 1 gm PO BID [facility] Last Admin: 11/28/17 18:51 Dose: 1 gm Pantoprazole Sodium (Protonix Ec Tab) 40 mg PO DAILY [facility] Last Admin: 11/28/17 13:35 Dose: 40 mg Tamsulosin HCl (Flomax) 0.4 mg PO DAILY [facility] Last Admin: 11/28/17 13:35 Dose: 0.4 mg - Labs Labs: 11/29/17 07:30 11/29/17 07:30 PT 12.5 SECONDS (9.4-12.5) 11/25/17 08:15 INR 1.09 (0.93-1.08) H 11/25/17 08:15 APTT 35.1 Seconds (25.1-36.5) 11/25/17 08:15 - Constitutional Appears: No Acute Distress - Eye Exam Eye Exam: Normal appearance - ENT Exam ENT Exam: Mucous Membranes Moist - Respiratory Exam Respiratory Exam: Decreased Breath Sounds, NORMAL BREATHING PATTERN - Cardiovascular Exam Cardiovascular Exam: +S1, +S2 Additional comments: Telemetry NSR PPM - GI/Abdominal Exam GI & Abdominal Exam: Soft, Normal Bowel Sounds - Exam Additional comments: ESRD,hemodialysis MWF - Extremities Exam Additional comments: Left arm AV shunt positive bruit - Neurological Exam Neurological Exam: Alert, Awake, Oriented x3 - Psychiatric Exam Psychiatric exam: Normal Affect - Skin Skin Exam: Intact, Warm Assessment and Plan - Assessment and Plan (Free Text) Assessment: A 77 year old male who came in to the ER due to generalized fatigue. History of hypertension, ESRD, on hemodialysis MWF. left AV shunt. 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 Cardiac consult was called due to multiple pauses on EKG. PPM was inserted. He was in ICU and now transferred to telemetry. Plan: Cardiac status stable Stable heart rate and blood pressure Will discontinue telemetry On ASa 325 mg daily,Norvasc 10 mg daily,Coreg 6.25 mg BID, Catapres 0.1 mg BID PRN, Cardura 2 mg BID, Heparin 5000 units SQ, Hydralazine 100mg BID, Cozaar 100 mg daily,Flomax 0.4 mg daily. On IV antibiotics per ID Continue current treatment Continue current medications Will follow up Plan and treatment discussed with Dr. Whalen
[2017-11-29] MEDS ORDERED: HYDROmorphone 1 mg/ml ISec IVP STA (11:34)
--- NOTE | 2017-11-29 12:18 | CP.PCM.PN ---
<Ez Nuñez - Last Filed: 11/29/17 16:38> Subjective - Date & Time of Evaluation Date of Evaluation: 11/29/17 Time of Evaluation: 07:00 - Subjective Subjective: Ez Nuñez PGY-1 Progress Note for Hospitalist Service Patient seen and evaluated at bedside. No acute events overnight. Patient underwent HD yesterday with one asymptomatic hypotensive episode that resolved. Admits to some pain in Left foot. Denies CP, SOB, Abdominal pain, dysuria and diarrhea. Objective - Vital Signs/Intake and Output Vital Signs (last 24 hours): Temp Pulse Resp BP Pulse Ox 97.3 F L 67 19 131/46 L 95 11/29/17 08:20 11/29/17 08:20 11/29/17 08:20 11/29/17 08:20 11/29/17 08:20 Intake and Output: 11/29/17 11/29/17 06:59 18:59 Intake Total 360 Balance 360 - Medications Medications: Current Medications Albuterol/Ipratropium (Duoneb 3 Mg/0.5 Mg (3 Ml) Ud) 3 ml IH [id number] [facility] Last Admin: 11/29/17 07:38 Dose: 3 ml Albuterol/Ipratropium (Duoneb 3 Mg/0.5 Mg (3 Ml) Ud) 3 ml IH Q2H PRN PRN Reason: Wheezing Amlodipine Besylate (Norvasc) 10 mg PO DAILY [facility] Aspirin (Aspirin) 325 mg PO DAILY [facility] Last Admin: 11/29/17 11:12 Dose: 325 mg Atorvastatin Calcium (Lipitor) 40 mg PO HS [facility] Last Admin: 11/28/17 22:12 Dose: 40 mg Calcium Acetate (Phoslo) 1,334 mg PO TID [facility] Last Admin: 11/29/17 11:12 Dose: 1,334 mg Carvedilol (Coreg) 6.25 mg PO 0800,1999 [facility] Last Admin: 11/29/17 08:25 Dose: Not Given Clonidine HCl (Catapres) 0.1 mg PO BID PRN PRN Reason: For SBP>160 & OR diastolic>100 Donepezil HCl (Aricept) 10 mg PO HS [facility] Last Admin: 11/28/17 22:12 Dose: 10 mg Doxazosin Mesylate (Cardura) 2 mg PO BID [facility] Last Admin: 11/29/17 11:13 Dose: 2 mg Gabapentin (Neurontin) 100 mg PO HS [facility] PRN Reason: Protocol Last Admin: 11/28/17 22:12 Dose: 100 mg Heparin Sodium (Porcine) (Heparin) 5,000 units SC Q12 [facility] PRN Reason: Protocol Last Admin: 11/29/17 11:11 Dose: 5,000 units Hydralazine HCl (Apresoline) 100 mg PO BID [facility] Last Admin: 11/29/17 11:13 Dose: 100 mg Meropenem 250 mg/ Sodium (Chloride) 100 mls @ 100 mls/hr IVPB Q12H [facility] PRN Reason: Protocol Stop: 12/04/17 22:01 Last Admin: 11/29/17 11:13 Dose: 100 mls/hr Vancomycin HCl (Vancomycin 1gm) 1 gm in 250 mls @ 167 mls/hr IVPB QOTHERDAY [facility] PRN Reason: Protocol Stop: 11/30/17 23:59 Last Admin: 11/28/17 12:02 Dose: 167 mls/hr Insulin Detemir (Levemir) 5 unit SC ACBHS [facility] Last Admin: 11/29/17 08:15 Dose: Not Given Insulin Human Regular (Humulin R Low) 0 units SC ACHS [facility] PRN Reason: Protocol Last Admin: 11/29/17 08:15 Dose: Not Given Lactobacillus Acidophilus (Bacid Acidophilus) 1 cap PO BID [facility] Last Admin: 11/29/17 11:12 Dose: 1 cap Losartan Potassium (Cozaar) 100 mg PO DAILY [facility] Last Admin: 11/29/17 11:13 Dose: 100 mg Memantine (Namenda) 5 mg PO DAILY [facility] Last Admin: 11/29/17 11:13 Dose: 5 mg Ramwy-5-Koao Ethyl Esters (Lovaza) 1 gm PO BID [facility] Last Admin: 11/29/17 11:12 Dose: 1 gm Pantoprazole Sodium (Protonix Ec Tab) 40 mg PO DAILY [facility] Last Admin: 11/29/17 11:12 Dose: 40 mg Tamsulosin HCl (Flomax) 0.4 mg PO DAILY [facility] Last Admin: 11/29/17 11:12 Dose: 0.4 mg - Labs Labs: 11/29/17 07:30 11/29/17 07:30 PT 12.5 SECONDS (9.4-12.5) 11/25/17 08:15 INR 1.09 (0.93-1.08) H 11/25/17 08:15 APTT 35.1 Seconds (25.1-36.5) 11/25/17 08:15 - Constitutional Appears: Well, No Acute Distress - Head Exam Head Exam: ATRAUMATIC, NORMAL INSPECTION, NORMOCEPHALIC - Eye Exam Eye Exam: EOMI, Normal appearance - ENT Exam ENT Exam: Mucous Membranes Moist - Respiratory Exam Respiratory Exam: Clear to Ausculation Bilateral, Wheezes, NORMAL BREATHING PATTERN. absent: Rales, Rhonchi, Respiratory Distress - Cardiovascular Exam Cardiovascular Exam: RRR, +S1, +S2 Additional comments: Pacemaker in place in R upper chest. Overlying skin dry and intact without discharge. - GI/Abdominal Exam GI & Abdominal Exam: Soft, Normal Bowel Sounds. absent: Guarding, Tenderness, Rebound - Extremities Exam Additional comments: L 5th toe unwrapped. 2+ Dorsalis pedis and anterior tibial pulses appreciated with ultrasound aid. - Neurological Exam Neurological Exam: Alert, Awake, Oriented x3 - Skin Skin Exam: Dry, Intact, Normal Color, Warm Assessment and Plan - Assessment and Plan (Free Text) Assessment: Assessment: Mr. Dangelo is a 77 year old male with pertinent medical history of recent osteomyelitis, ESRD on HD MWF, IDDM, HLD, Dementia, BPH, HTN, GERD who presented with generalized fatigue and subjective fevers. Patient was found to be septic with leukocytosis and fever of 100.9 on arrival. Patient was admitted for sepsis work up, ruling out foot vs. lung vs dialysis AV fistula as source of infection. Patient subsequently transferred to ICU after multiple episodes of several second pauses of asystole overnight. Carvedilol was discontinued, dopamine given. Single ventricle pacemaker placement without issue, followed by HD. Patient transferred from telemetry. Plan: SIRS of Unknown Source, likely 2/2 Osteomyelitis vs PNA vs Dialysis AV Fistula 2/4 Tachypnea, Febrile on admission, unknown source. VSS CXR significant for reticular nodular opacities in the lower lobes - ? atypical pneumonitis vs interstitial edema. Mild pulmonary venous congestion. Repeat CXR today shows Right basilar opacity, possible PNA, and possible small pleural effusions at both costophrenic angles ID Consult - Dr. Lance, f/u blood and urine cultures Per ID, continue intermittent vanc and meropenem (day 5) pending wound culture. Currently on Merrem renally dosed 250 mg BID. Appreciate further recommendations regarding antibiotics Asystole, possible 2/2 to beta june use vs heart block - resolved Patient had multiple episodes of asystole, lasting as long as 7 seconds on . Pacemaker placed 11/26 without issue. VSS. Carvedilol increased to 12.5, and continue hydralazine 100 prn per cardio recs Cardiology consult - Dr. Whalen Left foot infected ulcers Podiatry consulted (Dr. Espino) Patient getting vanc after dialysis MWF Necrotic ulceration of 5th digit debridement scheduled for today- will f/u podiatry recs Bone scan negative for O/M Arterial doppler studies- posterior tibial artery, anterior tibial artery, and perforating artery at ankle level is strongly monophasic Arterial duplex studies show bilateral tibial disease. Pulse palpable on posterior tibial and dorsalis pedis on Left foot. Will consider imaging study per podiatry recs ESRD on HD, MWF Continue with Lars Coleman Dr. on consult Received 1 gm Vancomycin with HD yesterday Continue coreg 12.[address] Fox Hx Diabetes Cont Accuchecks ACHS RISS low, cont Home lantus 10 U HS Consistent carb/renal dialysis/HH diet f/u a1c Cont. gabapentin 100mg HS for neuropathy Hx BPH Cont. flomax 0.4mg daily Hx HLD Continue lovaza, home med atorvastatin 40mg HS, home ASA 325 f/u lipid panel Dementia Cont. memantine 5mg daily Cont. donepezil 10mg HS Prophylaxis Cont. protonix 40mg PO daily Cont. heparin 5000u sc q12h Disposition: PT recommends TCU discharge with evaluation 3-5 times per week for 2 weeks. Patient will f/u with Dr. Wilson in the pacemaker clinic upon discharge. Patient seen, case reviewed, and plan agreed upon with Dr. Zhong. Ez Nuñez, PGY-1 <Itz Zhong - Last Filed: 12/01/17 11:17> Objective - Vital Signs/Intake and Output Vital Signs (last 24 hours): Temp Pulse Resp BP Pulse Ox 97.9 F 63 20 116/60 96 12/01/17 08:10 12/01/17 08:10 12/01/17 08:10 12/01/17 10:10 12/01/17 08:10 Intake and Output: 12/01/17 12/01/17 06:59 18:59 Intake Total 100 Output Total 250 Balance -150 - Medications Medications: Current Medications Albuterol/Ipratropium (Duoneb 3 Mg/0.5 Mg (3 Ml) Ud) 3 ml IH [id number] [facility] Last Admin: 12/01/17 08:17 Dose: 3 ml Albuterol/Ipratropium (Duoneb 3 Mg/0.5 Mg (3 Ml) Ud) 3 ml IH Q2H PRN PRN Reason: Wheezing Amlodipine Besylate (Norvasc) 10 mg PO DAILY [facility] Aspirin (Aspirin) 325 mg PO DAILY [facility] Last Admin: 12/01/17 10:04 Dose: 325 mg Atorvastatin Calcium (Lipitor) 40 mg PO HS [facility] Last Admin: 11/30/17 21:47 Dose: 40 mg Calcium Acetate (Phoslo) 1,334 mg PO TID [facility] Last Admin: 12/01/17 10:05 Dose: 1,334 mg Carvedilol (Coreg) 6.25 mg PO 08,1999 [facility] Last Admin: 12/01/17 10:10 Dose: 6.25 mg Clonidine HCl (Catapres) 0.1 mg PO BID PRN PRN Reason: For SBP>160 & OR diastolic>100 Collagenase (Santyl) 0 gm TOP DAILY [facility] Last Admin: 12/01/17 10:06 Dose: 1 applic Donepezil HCl (Aricept) 10 mg PO HS [facility] Last Admin: 11/30/17 21:47 Dose: 10 mg Doxazosin Mesylate (Cardura) 2 mg PO BID [facility] Last Admin: 12/01/17 10:10 Dose: 2 mg Gabapentin (Neurontin) 100 mg PO HS [facility] PRN Reason: Protocol Last Admin: 11/30/17 21:47 Dose: 100 mg Heparin Sodium (Porcine) (Heparin) 5,000 units SC Q12 [facility] PRN Reason: Protocol Last Admin: 12/01/17 10:09 Dose: 5,000 units Hydralazine HCl (Apresoline) 100 mg PO BID [facility] Last Admin: 12/01/17 10:04 Dose: Not Given Meropenem 250 mg/ Sodium (Chloride) 100 mls @ 100 mls/hr IVPB Q12H [facility] PRN Reason: Protocol Stop: 12/04/17 22:01 Last Admin: 12/01/17 10:07 Dose: 100 mls/hr Insulin Detemir (Levemir) 5 unit SC ACBHS [facility] Last Admin: 12/01/17 07:08 Dose: 5 units Insulin Human Regular (Humulin R Low) 0 units SC ACHS [facility] PRN Reason: Protocol Last Admin: 12/01/17 08:04 Dose: Not Given Lactobacillus Acidophilus (Bacid Acidophilus) 1 cap PO BID [facility] Last Admin: 12/01/17 10:11 Dose: 1 cap Losartan Potassium (Cozaar) 100 mg PO DAILY [facility] Last Admin: 12/01/17 10:14 Dose: 100 mg Memantine (Namenda) 5 mg PO DAILY [facility] Last Admin: 12/01/17 10:07 Dose: 5 mg Czqkr-1-Nktz Ethyl Esters (Lovaza) 1 gm PO BID [facility] Last Admin: 12/01/17 10:07 Dose: 1 gm Pantoprazole Sodium (Protonix Ec Tab) 40 mg PO DAILY [facility] Last Admin: 12/01/17 10:05 Dose: 40 mg Tamsulosin HCl (Flomax) 0.4 mg PO DAILY [facility] Last Admin: 12/01/17 10:09 Dose: 0.4 mg - Labs Labs: 11/30/17 06:00 11/30/17 06:00 PT 12.5 SECONDS (9.4-12.5) 11/25/17 08:15 INR 1.09 (0.93-1.08) H 11/25/17 08:15 APTT 35.1 Seconds (25.1-36.5) 11/25/17 08:15 Attending/Attestation - Attestation I have personally seen and examined this patient.: Yes I have fully participated in the care of the patient.: Yes I have reviewed all pertinent clinical information, including history, physical exam and plan: Yes Notes (Text): 12/01/17 11:16 Medical record note made by the resident after discussion with my direction and input after the patient was personally seen and examined by me. I have reviewed the chart and agree that the record accurately reflects by personal performance of the history, physical exam, data review, and medical decision-making, in the course for the patient. I have also personally directed the plan of care.
--- NOTE | 2017-11-29 12:33 | CP.PCM.PN ---
Subjective - Date & Time of Evaluation Date of Evaluation: 11/29/17 Time of Evaluation: 10:00 - Subjective Subjective: Comfortable, no fevers. Non-toxic. Objective - Vital Signs/Intake and Output Vital Signs (last 24 hours): Temp Pulse Resp BP Pulse Ox 97.3 F L 67 19 131/46 L 95 11/29/17 08:20 11/29/17 08:20 11/29/17 08:20 11/29/17 08:20 11/29/17 08:20 Intake and Output: 11/29/17 11/29/17 06:59 18:59 Intake Total 360 Balance 360 - Medications Medications: Current Medications Albuterol/Ipratropium (Duoneb 3 Mg/0.5 Mg (3 Ml) Ud) 3 ml IH [id number] [facility] Last Admin: 11/29/17 07:38 Dose: 3 ml Albuterol/Ipratropium (Duoneb 3 Mg/0.5 Mg (3 Ml) Ud) 3 ml IH Q2H PRN PRN Reason: Wheezing Amlodipine Besylate (Norvasc) 10 mg PO DAILY [facility] Aspirin (Aspirin) 325 mg PO DAILY [facility] Last Admin: 11/29/17 11:12 Dose: 325 mg Atorvastatin Calcium (Lipitor) 40 mg PO HS [facility] Last Admin: 11/28/17 22:12 Dose: 40 mg Calcium Acetate (Phoslo) 1,334 mg PO TID [facility] Last Admin: 11/29/17 11:12 Dose: 1,334 mg Carvedilol (Coreg) 6.25 mg PO 0800,1999 [facility] Last Admin: 11/29/17 08:25 Dose: Not Given Clonidine HCl (Catapres) 0.1 mg PO BID PRN PRN Reason: For SBP>160 & OR diastolic>100 Donepezil HCl (Aricept) 10 mg PO HS [facility] Last Admin: 11/28/17 22:12 Dose: 10 mg Doxazosin Mesylate (Cardura) 2 mg PO BID [facility] Last Admin: 11/29/17 11:13 Dose: 2 mg Gabapentin (Neurontin) 100 mg PO HS [facility] PRN Reason: Protocol Last Admin: 11/28/17 22:12 Dose: 100 mg Heparin Sodium (Porcine) (Heparin) 5,000 units SC Q12 [facility] PRN Reason: Protocol Last Admin: 11/29/17 11:11 Dose: 5,000 units Hydralazine HCl (Apresoline) 100 mg PO BID [facility] Last Admin: 11/29/17 11:13 Dose: 100 mg Meropenem 250 mg/ Sodium (Chloride) 100 mls @ 100 mls/hr IVPB Q12H [facility] PRN Reason: Protocol Stop: 12/04/17 22:01 Last Admin: 11/29/17 11:13 Dose: 100 mls/hr Vancomycin HCl (Vancomycin 1gm) 1 gm in 250 mls @ 167 mls/hr IVPB QOTHERDAY [facility] PRN Reason: Protocol Stop: 11/30/17 23:59 Last Admin: 11/28/17 12:02 Dose: 167 mls/hr Insulin Detemir (Levemir) 5 unit SC ACBHS [facility] Last Admin: 11/29/17 08:15 Dose: Not Given Insulin Human Regular (Humulin R Low) 0 units SC ACHS [facility] PRN Reason: Protocol Last Admin: 11/29/17 08:15 Dose: Not Given Lactobacillus Acidophilus (Bacid Acidophilus) 1 cap PO BID [facility] Last Admin: 11/29/17 11:12 Dose: 1 cap Losartan Potassium (Cozaar) 100 mg PO DAILY [facility] Last Admin: 11/29/17 11:13 Dose: 100 mg Memantine (Namenda) 5 mg PO DAILY [facility] Last Admin: 11/29/17 11:13 Dose: 5 mg Uduhc-4-Sbpl Ethyl Esters (Lovaza) 1 gm PO BID [facility] Last Admin: 11/29/17 11:12 Dose: 1 gm Pantoprazole Sodium (Protonix Ec Tab) 40 mg PO DAILY [facility] Last Admin: 11/29/17 11:12 Dose: 40 mg Tamsulosin HCl (Flomax) 0.4 mg PO DAILY [facility] Last Admin: 11/29/17 11:12 Dose: 0.4 mg - Labs Labs: 11/29/17 07:30 11/29/17 07:30 PT 12.5 SECONDS (9.4-12.5) 11/25/17 08:15 INR 1.09 (0.93-1.08) H 11/25/17 08:15 APTT 35.1 Seconds (25.1-36.5) 11/25/17 08:15 - Constitutional Appears: Chronically Ill - Head Exam Head Exam: NORMAL INSPECTION - Respiratory Exam Respiratory Exam: Decreased Breath Sounds - Cardiovascular Exam Cardiovascular Exam: +S1, +S2 - GI/Abdominal Exam GI & Abdominal Exam: Soft. absent: Tenderness Assessment and Plan - Assessment and Plan (Free Text) Plan: Assessment severe sepsis due to left foot cellulitis with left 5th toe gangrene history of severe sepsis due to healthcare-associated pneumonia as well as epiglottitis with oropahryngeal candidiasis ESRD on HD DM HTN morbid obesity with BMI 41 dyslipidemia COPD cataracts chronic low back pain Plan continue intermittent Vancomycin and Merrem (day 5) pending wound cx and further plans of Podiatry (for debridement tomorrow)
--- NOTE | 2017-11-29 12:51 | CP.PCM.PN ---
<Johnie Stoner - Last Filed: 11/29/17 12:41> Subjective - Date & Time of Evaluation Date of Evaluation: 11/29/17 Time of Evaluation: 12:30 - Subjective Subjective: Podiatry Progress Note- Dr. Gleason/Dr. Maher 77 y.o male seen and evaluated at bedside with attending Dr. Maher for bilateral foot ulcerations including left 5th digit necrotic tissue. Patient is seen resting comfortably in bed, in NAD. Patient reports pain to the left foot. Denies nausea, fever, shortness of breath, chest pains or chills. Objective - Vital Signs/Intake and Output Vital Signs (last 24 hours): Temp Pulse Resp BP Pulse Ox 97.3 F L 67 19 131/46 L 95 11/29/17 08:20 11/29/17 08:20 11/29/17 08:20 11/29/17 08:20 11/29/17 08:20 Intake and Output: 11/29/17 11/29/17 06:59 18:59 Intake Total 360 Balance 360 - Medications Medications: Current Medications Albuterol/Ipratropium (Duoneb 3 Mg/0.5 Mg (3 Ml) Ud) 3 ml IH [id number] [facility] Last Admin: 11/29/17 07:38 Dose: 3 ml Albuterol/Ipratropium (Duoneb 3 Mg/0.5 Mg (3 Ml) Ud) 3 ml IH Q2H PRN PRN Reason: Wheezing Amlodipine Besylate (Norvasc) 10 mg PO DAILY [facility] Aspirin (Aspirin) 325 mg PO DAILY [facility] Last Admin: 11/29/17 11:12 Dose: 325 mg Atorvastatin Calcium (Lipitor) 40 mg PO HS [facility] Last Admin: 11/28/17 22:12 Dose: 40 mg Calcium Acetate (Phoslo) 1,334 mg PO TID [facility] Last Admin: 11/29/17 11:12 Dose: 1,334 mg Carvedilol (Coreg) 6.25 mg PO 799,1999 [facility] Last Admin: 11/29/17 08:25 Dose: Not Given Clonidine HCl (Catapres) 0.1 mg PO BID PRN PRN Reason: For SBP>160 & OR diastolic>100 Donepezil HCl (Aricept) 10 mg PO HS [facility] Last Admin: 11/28/17 22:12 Dose: 10 mg Doxazosin Mesylate (Cardura) 2 mg PO BID [facility] Last Admin: 11/29/17 11:13 Dose: 2 mg Gabapentin (Neurontin) 100 mg PO HS [facility] PRN Reason: Protocol Last Admin: 11/28/17 22:12 Dose: 100 mg Heparin Sodium (Porcine) (Heparin) 5,000 units SC Q12 [facility] PRN Reason: Protocol Last Admin: 11/29/17 11:11 Dose: 5,000 units Hydralazine HCl (Apresoline) 100 mg PO BID [facility] Last Admin: 11/29/17 11:13 Dose: 100 mg Meropenem 250 mg/ Sodium (Chloride) 100 mls @ 100 mls/hr IVPB Q12H [facility] PRN Reason: Protocol Stop: 12/04/17 22:01 Last Admin: 11/29/17 11:13 Dose: 100 mls/hr Vancomycin HCl (Vancomycin 1gm) 1 gm in 250 mls @ 167 mls/hr IVPB QOTHERDAY [facility] PRN Reason: Protocol Stop: 11/30/17 23:59 Last Admin: 11/28/17 12:02 Dose: 167 mls/hr Insulin Detemir (Levemir) 5 unit SC ACBHS [facility] Last Admin: 11/29/17 08:15 Dose: Not Given Insulin Human Regular (Humulin R Low) 0 units SC ACHS [facility] PRN Reason: Protocol Last Admin: 11/29/17 08:15 Dose: Not Given Lactobacillus Acidophilus (Bacid Acidophilus) 1 cap PO BID [facility] Last Admin: 11/29/17 11:12 Dose: 1 cap Losartan Potassium (Cozaar) 100 mg PO DAILY [facility] Last Admin: 11/29/17 11:13 Dose: 100 mg Memantine (Namenda) 5 mg PO DAILY [facility] Last Admin: 11/29/17 11:13 Dose: 5 mg [id number]-3-[id number] Ethyl Esters (Lovaza) 1 gm PO BID [facility] Last Admin: 11/29/17 11:12 Dose: 1 gm Pantoprazole Sodium (Protonix Ec Tab) 40 mg PO DAILY [facility] Last Admin: 11/29/17 11:12 Dose: 40 mg Tamsulosin HCl (Flomax) 0.4 mg PO DAILY [facility] Last Admin: 11/29/17 11:12 Dose: 0.4 mg - Labs Labs: 11/29/17 07:30 11/29/17 07:30 PT 12.5 SECONDS (9.4-12.5) 11/25/17 08:15 INR 1.09 (0.93-1.08) H 11/25/17 08:15 APTT 35.1 Seconds (25.1-36.5) 11/25/17 08:15 - Constitutional Appears: Well, Non-toxic, No Acute Distress - Extremities Exam Extremities Exam: absent: Calf Tenderness Additional comments: Bilateral LE focused Exam: VASC: DP/PT pulses are very faintly palpable 1/4 bilaterally, Cap refill time slightly delayed > 3 sec, skin temperature: warm to cool from proximal to distal , mild non-pitting edema noted on the dorsum of the left foot DERM: Ulceration on the dorsum of the 5th digi measuring approximately 2 cm x 3 cm with wound bed completely necrotic, unstageable depth dry, no active drainage , no malodor, no tunneling or tracking, no purulent drainage, localized erythema noted at the dorsum of the left forefoot, no clinical signs of infection Superficial ulcerations noted to dorsum of digits 1,2, and 4 with wound base being 100% fibrotic. All wounds are negative for drainage, malodor, tunneling, tracking, undermining, erythema or clinical signs of infection Right foot blister noted to the dorsum of the 5th digit with serous drainage noted. No clinical signs of infection NEURO: Protective sensation and gross sensation diminished ORTHO: Pain present during palpation of the digits particularly the 5th digit - Neurological Exam Neurological Exam: Alert, Awake, Oriented x3 - Psychiatric Exam Psychiatric exam: Normal Affect, Normal Mood Assessment and Plan - Assessment and Plan (Free Text) Assessment: 77 year old male with PMHx of IDDM, HTN, HLD, BPH, Dementia, GERD and ESRD was evaluated for 1) s/p excisional debridement of 5th digit necrotic tissue probe to bone with clinical diagnosis of osteomyelitis of left 5th digit 2) superficial non-infected ulcerations on the dorsal aspect of the digits 1,2,4 left foot 3) right foot with 5th digit superficial ulceration Plan: Patient seen and evaluated Discussed plan with attending Dr. Maher Labs, vitals and charts reviewed - afebrile, WBC=4.5 X-rays of left foot ordered/reviewed - Periosteal reaction with cortical break at the proximal phalanx of the left 5th digit - no subcutaneous emphysema noted Arterial duplex/ABIs- likely calcified vessels Right 1.12, Left 1.2 Discussed the plan with patient. Explained all the benefits, risks, alternatives , and complications. Patient understands and consented to debridement of all nonviable soft tissue to the left foot including necrotic soft tissue. All questions/concerns addressed. Patient given 1mg Dilaudid IV prior to procedure. Left foot painted with betadine in a sterile fashion to the left forefoot. Total of 3cc of 1% lidocaine plain give in a local block fashion to the left 5th digit. After local anesthesia is achieved, next using a #15 blade and a pickup, the necrotic tissue located on the dorsum of the left 5th digit was excisionally debrided through skin, down to the level of subcutaneous layer. Majority of the necrotic and fibrotic tissue removed from the wound base until healthier granular and fibrotic tissue appeared. It was noted that there is minimal soft tissue coverage with probing to bone noted to the central wound. During this time, decision was made that patient clinically has osteomyelitis of left 5th digit. Will need 4-6 weeks of abx. Abx per ID recommendations. Cleanse ulceration with saline solution, dressed with xeroform, dsd, and kerlix. Patient tolerated the prodecure well. Neurovascular status intact to the left foot s/p debridement. Post debridement measurements 2.5 cm x 3 cm x .2 cm. Patient may WBAT in surgical shoe Will order Santyl to be applied tomorrow. Please dispense multipodus boots, to be worn at all times while in bed Podiatry to follow patient while in-house <Lizbeth Maher - Last Filed: 12/01/17 16:46> Objective - Vital Signs/Intake and Output Vital Signs (last 24 hours): Temp Pulse Resp BP Pulse Ox 97.9 F 63 20 116/60 96 12/01/17 08:10 12/01/17 08:10 12/01/17 08:10 12/01/17 10:10 12/01/17 08:10 Intake and Output: 12/01/17 12/01/17 06:59 18:59 Intake Total 100 Output Total 250 Balance -150 - Medications Medications: Current Medications Albuterol/Ipratropium (Duoneb 3 Mg/0.5 Mg (3 Ml) Ud) 3 ml IH [id number] [facility] Last Admin: 12/01/17 14:10 Dose: 3 ml Albuterol/Ipratropium (Duoneb 3 Mg/0.5 Mg (3 Ml) Ud) 3 ml IH Q2H PRN PRN Reason: Wheezing Amlodipine Besylate (Norvasc) 10 mg PO DAILY [facility] Aspirin (Aspirin) 325 mg PO DAILY [facility] Last Admin: 12/01/17 10:04 Dose: 325 mg Atorvastatin Calcium (Lipitor) 40 mg PO HS [facility] Last Admin: 11/30/17 21:47 Dose: 40 mg Calcium Acetate (Phoslo) 1,334 mg PO TID [facility] Last Admin: 12/01/17 13:25 Dose: 1,334 mg Carvedilol (Coreg) 6.25 mg PO 799,1999 [facility] Last Admin: 12/01/17 10:10 Dose: 6.25 mg Clonidine HCl (Catapres) 0.1 mg PO BID PRN PRN Reason: For SBP>160 & OR diastolic>100 Collagenase (Santyl) 0 gm TOP DAILY [facility] Last Admin: 12/01/17 10:06 Dose: 1 applic Donepezil HCl (Aricept) 10 mg PO HS [facility] Last Admin: 11/30/17 21:47 Dose: 10 mg Gabapentin (Neurontin) 100 mg PO HS [facility] PRN Reason: Protocol Last Admin: 11/30/17 21:47 Dose: 100 mg Heparin Sodium (Porcine) (Heparin) 5,000 units SC Q12 [facility] PRN Reason: Protocol Last Admin: 12/01/17 10:09 Dose: 5,000 units Hydralazine HCl (Apresoline) 100 mg PO BID [facility] Last Admin: 12/01/17 10:04 Dose: Not Given Meropenem 250 mg/ Sodium (Chloride) 100 mls @ 100 mls/hr IVPB Q12H [facility] PRN Reason: Protocol Stop: 12/04/17 22:01 Last Admin: 12/01/17 10:07 Dose: 100 mls/hr Insulin Detemir (Levemir) [facility] Last Admin: 12/01/17 07:08 Dose: 5 units Insulin Human Regular (Humulin R Low) 0 units SC ACHS [facility] PRN Reason: Protocol Last Admin: 12/01/17 08:04 Dose: Not Given Lactobacillus Acidophilus (Bacid Acidophilus) 1 cap PO BID [facility] Last Admin: 12/01/17 10:11 Dose: 1 cap Losartan Potassium (Cozaar) 100 mg PO DAILY [facility] Last Admin: 12/01/17 10:14 Dose: 100 mg Memantine (Namenda) 5 mg PO DAILY [facility] Last Admin: 12/01/17 10:07 Dose: 5 mg Hlyxi-6-[id number] Ethyl Esters (Lovaza) 1 gm PO BID [facility] Last Admin: 12/01/17 10:07 Dose: 1 gm Pantoprazole Sodium (Protonix Ec Tab) 40 mg PO DAILY [facility] Last Admin: 12/01/17 10:05 Dose: 40 mg Tamsulosin HCl (Flomax) 0.4 mg PO DAILY [facility] Last Admin: 12/01/17 10:09 Dose: 0.4 mg - Labs Labs: 11/30/17 06:00 11/30/17 06:00 PT 12.5 SECONDS (9.4-12.5) 11/25/17 08:15 INR 1.09 (0.93-1.08) H 11/25/17 08:15 APTT 35.1 Seconds (25.1-36.5) 11/25/17 08:15 Attending/Attestation - Attestation I have personally seen and examined this patient.: Yes I have fully participated in the care of the patient.: Yes I have reviewed all pertinent clinical information, including history, physical exam and plan: Yes
--- NOTE | 2017-11-29 15:39 | NM ---
Date of service: 11/29/2017 PROCEDURE: Three-phase bone scan HISTORY: Osteomyelitis suspected left foot COMPARISON: 11/25/2017 left foot radiographs. Summary of findings on the comparison examination: Surgical amputation 3rd toe. Age indeterminate fracture 5th digit. TECHNIQUE: Following administration of 22.6 miCu of Tc MDP multiplanar whole body images were obtained. FINDINGS: Flow component: Increase flow with tube both 8. Findings are more diffuse in the right foot and more focal lateral aspect left foot. Blood pool component: Vague increased accumulation of lateral aspect left foot at the level of the 4th and 5th digits. Delayed images at 3:00: No significant retention of radionuclide left foot. Other findings: Extensive degenerative changes right foot. IMPRESSION: Negative study for acute osseous process. Findings consistent with lower extremity cellulitis noted bilaterally. Posttraumatic/degenerative changes more prominent ankle and foot than the left.
--- NOTE | 2017-11-29 18:01 | PN ---
DATE: 11/29/2017 SUBJECTIVE: The patient is seen sitting in bed. He is awake, he is alert, and he is comfortable. He denies any pain. He denies any shortness of breath. PHYSICAL EXAMINATION: GENERAL: Elderly male sitting in bed. VITAL SIGNS: Blood pressure 131/46, heart rate 67, respiratory rate 19, and temperature 97.3. HEENT: Normocephalic, atraumatic, positive pallor. NECK: Supple, no JVD. LUNGS: Bilateral equal air entry, bilateral equal expansion. CARDIAC: S1 and S2, regular rate and rhythm, no murmur, no rub. ABDOMEN: Obese, distended, soft, nontender, bowel sounds present. EXTREMITIES: No lower extremity edema. INTAKE AND OUTPUT: Not charted. LABORATORY DATA: Hemoglobin 9.5. Sodium 139, potassium 4.2, chloride 97, CO2 of 30. BUN 30, creatinine 5.6. Glucose 103. Calcium 8.1, phosphorus 4.3, and magnesium 2. CURRENT MEDICATIONS: Hydralazine 100 b.i.d., Aricept, aspirin, Cardura 2 mg b.i.d., clonidine, Coreg 6.25 b.i.d., losartan 100, Flomax 0.4, heparin, Lipitor, meropenem 250 every 12 hours, Namenda 5, amlodipine 10, PhosLo 2 tablets t.i.d., Protonix, and vancomycin 1 g every other day. ASSESSMENT: 1. Multilobar pneumonia. 2. Symptomatic bradycardia with pauses, status post pacemaker placement. 3. Bilateral lower extremity cellulitis. 4. Negative bone scan for osteomyelitis. 5. End-stage renal disease. 6. Anemia of chronic kidney disease. 7. Ila-pfovxlz-pctjslprs diabetes mellitus. 8. Hypertension. 9. Secondary hyperparathyroidism. PLAN: 1. Continue antibiotics. 2. Dialysis tomorrow. 3. Continue cardiac medications as per Cardiology. 4. Discharge planning? Yadira Fox MD
[2017-11-30] MEDS: Albuterol-Ipratrop 3 mg / 0.5 (3 ml) UD IH SCH ×4 (02:00→20:10)
[2017-11-30 06:38] LABS: HEMOGLOBIN 9.9 g/dL (14.0-18.0); MEAN CELL VOLUME 89.7 fl (80.0-105.0); MEAN CORPUSCULAR HEMOGLOBIN 27.5 pg (25.0-35.0); MEAN CORPUSCULAR HGB CONC 30.7 g/dl (31.0-37.0); RBC 3.6 10^6/uL (3.5-6.1); RED CELL DISTRIBUTION WIDTH 16.7 % (11.5-14.5)
[2017-11-30 06:49] LABS: ALB/GLOB RATIO 1.2 (1.1-1.8); ALBUMIN 3.3 g/dL (3.0-4.8); CALCIUM 8.3 mg/dL (8.4-10.5)
--- NOTE | 2017-11-30 07:11 | CP.PCM.PN ---
Subjective - Date & Time of Evaluation Date of Evaluation: 11/30/17 Time of Evaluation: 06:10 - Subjective Subjective: Easily awaken, sleeping, denies chest pain, denies shortness of breath Reason for consultation and follow up: Status post pacemaker for multiple pauses , history of ESRD, hypertension, peripheral artery disease,hyperlipidemia. Seen and examined by me and Dr. Whalen Objective - Vital Signs/Intake and Output Vital Signs (last 24 hours): Temp Pulse Resp BP Pulse Ox 97.9 F 64 20 125/58 L 94 L 11/30/17 06:00 11/30/17 06:00 11/30/17 06:00 11/30/17 06:00 11/30/17 06:00 Intake and Output: 11/30/17 11/30/17 06:59 18:59 Intake Total 340 Output Total 1 Balance 339 - Medications Medications: Current Medications Albuterol/Ipratropium (Duoneb 3 Mg/0.5 Mg (3 Ml) Ud) 3 ml IH [id number] [facility] Last Admin: 11/29/17 20:01 Dose: 3 ml Albuterol/Ipratropium (Duoneb 3 Mg/0.5 Mg (3 Ml) Ud) 3 ml IH Q2H PRN PRN Reason: Wheezing Amlodipine Besylate (Norvasc) 10 mg PO DAILY [facility] Aspirin (Aspirin) 325 mg PO DAILY [facility] Last Admin: 11/29/17 11:12 Dose: 325 mg Atorvastatin Calcium (Lipitor) 40 mg PO HS [facility] Last Admin: 11/29/17 21:45 Dose: 40 mg Calcium Acetate (Phoslo) 1,334 mg PO TID [facility] Last Admin: 11/29/17 17:48 Dose: 1,334 mg Carvedilol (Coreg) 6.25 mg PO 799,1999 [facility] Last Admin: 11/29/17 21:45 Dose: Not Given Clonidine HCl (Catapres) 0.1 mg PO BID PRN PRN Reason: For SBP>160 & OR diastolic>100 Collagenase (Santyl) 0 gm TOP DAILY [facility] Donepezil HCl (Aricept) 10 mg PO HS [facility] Last Admin: 11/29/17 21:45 Dose: 10 mg Doxazosin Mesylate (Cardura) 2 mg PO BID [facility] Last Admin: 11/29/17 17:48 Dose: 2 mg Gabapentin (Neurontin) 100 mg PO HS [facility] PRN Reason: Protocol Last Admin: 11/29/17 21:45 Dose: 100 mg Heparin Sodium (Porcine) (Heparin) 5,000 units SC Q12 [facility] PRN Reason: Protocol Last Admin: 11/29/17 21:44 Dose: 5,000 units Hydralazine HCl (Apresoline) 100 mg PO BID [facility] Last Admin: 11/29/17 17:44 Dose: 100 mg Meropenem 250 mg/ Sodium (Chloride) 100 mls @ 100 mls/hr IVPB Q12H [facility] PRN Reason: Protocol Stop: 12/04/17 22:01 Last Admin: 11/29/17 21:44 Dose: 100 mls/hr Vancomycin HCl (Vancomycin 1gm) 1 gm in 250 mls @ 167 mls/hr IVPB QOTHERDAY [facility] PRN Reason: Protocol Stop: 11/30/17 23:59 Last Admin: 11/28/17 12:02 Dose: 167 mls/hr Insulin Detemir (Levemir) 5 unit SC ACBHS [facility] Last Admin: 11/29/17 21:30 Dose: Not Given Insulin Human Regular (Humulin R Low) 0 units SC ACHS [facility] PRN Reason: Protocol Last Admin: 11/29/17 21:30 Dose: Not Given Lactobacillus Acidophilus (Bacid Acidophilus) 1 cap PO BID [facility] Last Admin: 11/29/17 17:44 Dose: 1 cap Losartan Potassium (Cozaar) 100 mg PO DAILY [facility] Last Admin: 11/29/17 11:13 Dose: 100 mg Memantine (Namenda) 5 mg PO DAILY [facility] Last Admin: 11/29/17 11:13 Dose: 5 mg [id number]-7-[id number] Ethyl Esters (Lovaza) 1 gm PO BID [facility] Last Admin: 11/29/17 17:44 Dose: 1 gm Pantoprazole Sodium (Protonix Ec Tab) 40 mg PO DAILY [facility] Last Admin: 11/29/17 11:12 Dose: 40 mg Tamsulosin HCl (Flomax) 0.4 mg PO DAILY [facility] Last Admin: 11/29/17 11:12 Dose: 0.4 mg - Labs Labs: 11/30/17 06:00 11/30/17 06:00 PT 12.5 SECONDS (9.4-12.5) 11/25/17 08:15 INR 1.09 (0.93-1.08) H 11/25/17 08:15 APTT 35.1 Seconds (25.1-36.5) 11/25/17 08:15 - Constitutional Appears: No Acute Distress - Head Exam Head Exam: NORMOCEPHALIC - ENT Exam ENT Exam: Mucous Membranes Moist - Respiratory Exam Respiratory Exam: Decreased Breath Sounds, NORMAL BREATHING PATTERN Additional comments: nasal cannula - Cardiovascular Exam Cardiovascular Exam: REGULAR RHYTHM, +S1, +S2 Additional comments: PPM - GI/Abdominal Exam GI & Abdominal Exam: Soft, Normal Bowel Sounds - Exam Additional comments: Hemodialysis 3x a week (MWF) - Extremities Exam Extremities Exam: Normal Capillary Refill Additional comments: Left AV shunt positive bruit - Neurological Exam Neurological Exam: Alert, Awake, Oriented x3 Additional comments: periods of confusion - Psychiatric Exam Psychiatric exam: Normal Affect - Skin Skin Exam: Intact, Warm Assessment and Plan - Assessment and Plan (Free Text) Assessment: 77 year old male who came in to the ER due to generalized fatigue. History of hypertension, ESRD, on hemodialysis MWF. left AV shunt. 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 Cardiac consult was called due to multiple pauses on EKG. PPM was inserted. He was in ICU and now transferred to telemetry. Plan: Periods of confusion For hemodialysis today Cardiac status stable Stable heart rate and blood pressure On ASA 325 mg daily,Norvasc 10 mg daily,Coreg 6.25 mg BID, Catapres 0.1 mg BID PRN, Cardura 2 mg BID, Heparin 5000 units SQ, Hydralazine 100mg BID, Cozaar 100 mg daily,Flomax 0.4 mg daily. On IV antibiotics per ID Continue current treatment Continue current medications Will follow up Plan and treatment discussed with Dr. Whalen
[2017-11-30] MEDS: Insulin Reg-LOW-Coverage SC SCH ×4 (07:38→22:05)
[2017-11-30] MEDS: Insulin Detemir 100 units/ml Vial (Levemir) SC SCH ×2 (07:39→22:06)
--- NOTE | 2017-11-30 10:00 | PN ---
DATE: 11/30/2017 SUBJECTIVE: The patient is seen lying in bed. He is awake, he is alert, he is comfortable. He does not appear to be in any kind of distress. PHYSICAL EXAMINATION: VITAL SIGNS: Blood pressure 125/58, heart rate 64, respiratory rate 20, temperature 97.9. HEENT: Normocephalic, atraumatic, positive pallor. NECK: Supple, no JVD. LUNGS: Bilateral equal air entry, bilateral equal expansion, no rales. CARDIAC: S1, S2, regular rate and rhythm, no murmur, no rub. ABDOMEN: Obese, distended, soft, nontender, bowel sounds present. EXTREMITIES: No lower extremity edema. INTAKE AND OUTPUT: Not charted. LABORATORY DATA: WBC 6, hemoglobin 9.9, hematocrit 32, platelets 172. Sodium 139, potassium 4.2, chloride 96, CO2 of 30, BUN 40, creatinine 7.5, glucose 182, calcium 8.3, phosphorus 5.7, magnesium 2.1. CURRENT MEDICATIONS: Hydralazine 100 b.i.d., Aricept, aspirin, Cardura 2 mg b.i.d., clonidine 0.1 b.i.d., Coreg 6.25 b.i.d., losartan 100, Flomax, insulin, vancomycin 1 g every other day. ASSESSMENT AND PLAN: 1. Symptomatic bradycardia with multiple pauses, status post pacemaker placement. 2. Non-insulin dependent diabetes mellitus. 3. Hypertension. 4. End-stage renal disease. 5. Peripheral arterial disease. 6. Hyperlipidemia. 7. Cellulitis of the lower extremities. PLAN 1. Dialysis today. 2. Continue antibiotics for cellulitis. 3. Discharge planning. 4. Subacute rehab?. Yadira Fox MD
[2017-11-30] MEDS: Lactobacillus Acidophilus 500 MU Cap PO SCH ×2 (10:05→17:44)
[2017-11-30] MEDS: Omega-3-Acid Ethyl Esters 1 GM Cap PO SCH ×2 (10:05→17:44)
--- NOTE | 2017-11-30 12:58 | CP.PCM.PN ---
<Ez Nuñez - Last Filed: 11/30/17 12:55> Subjective - Date & Time of Evaluation Date of Evaluation: 11/30/17 Time of Evaluation: 07:00 - Subjective Subjective: Ez Nuñez PGY-1 Progress Note for Hospitalist Service Patient seen and evaluated at bedside. No acute complaints overnight. Reports minimal foot pain after debridement yesterday. Denies CP, SOB, abdominal pain, and changes in bowel habits. Objective - Vital Signs/Intake and Output Vital Signs (last 24 hours): Temp Pulse Resp BP Pulse Ox 97.9 F 64 20 125/58 L 94 L 11/30/17 06:00 11/30/17 06:00 11/30/17 06:00 11/30/17 06:00 11/30/17 06:00 Intake and Output: 11/30/17 11/30/17 06:59 18:59 Intake Total 340 Output Total 1 Balance 339 - Medications Medications: Current Medications Albuterol/Ipratropium (Duoneb 3 Mg/0.5 Mg (3 Ml) Ud) 3 ml IH [id number] [facility] Last Admin: 11/30/17 07:29 Dose: 3 ml Albuterol/Ipratropium (Duoneb 3 Mg/0.5 Mg (3 Ml) Ud) 3 ml IH Q2H PRN PRN Reason: Wheezing Amlodipine Besylate (Norvasc) 10 mg PO DAILY [facility] Aspirin (Aspirin) 325 mg PO DAILY [facility] Last Admin: 11/29/17 11:12 Dose: 325 mg Atorvastatin Calcium (Lipitor) 40 mg PO HS [facility] Last Admin: 11/29/17 21:45 Dose: 40 mg Calcium Acetate (Phoslo) 1,334 mg PO TID [facility] Last Admin: 11/30/17 10:06 Dose: Not Given Carvedilol (Coreg) 6.25 mg PO 0800,1999 [facility] Last Admin: 11/30/17 10:05 Dose: Not Given Clonidine HCl (Catapres) 0.1 mg PO BID PRN PRN Reason: For SBP>160 & OR diastolic>100 Collagenase (Santyl) 0 gm TOP DAILY [facility] Donepezil HCl (Aricept) 10 mg PO HS [facility] Last Admin: 11/29/17 21:45 Dose: 10 mg Doxazosin Mesylate (Cardura) 2 mg PO BID [facility] Last Admin: 11/30/17 10:05 Dose: Not Given Gabapentin (Neurontin) 100 mg PO HS [facility]ERE PRN Reason: Protocol Last Admin: 11/29/17 21:45 Dose: 100 mg Heparin Sodium (Porcine) (Heparin) 5,000 units SC Q12 JERE PRN Reason: Protocol Last Admin: 11/30/17 10:05 Dose: Not Given Hydralazine HCl (Apresoline) 100 mg PO BID [facility] Last Admin: 11/30/17 10:04 Dose: Not Given Meropenem 250 mg/ Sodium (Chloride) 100 mls @ 100 mls/hr IVPB Q12H [facility]ERE PRN Reason: Protocol Stop: 12/04/17 22:01 Last Admin: 11/29/17 21:44 Dose: 100 mls/hr Vancomycin HCl (Vancomycin 1gm) 1 gm in 250 mls @ 167 mls/hr IVPB QOTHERDAY JERE PRN Reason: Protocol Stop: 11/30/17 23:59 Last Admin: 11/28/17 12:02 Dose: 167 mls/hr Insulin Detemir (Levemir) 5 unit SC ACBHS [facility] Last Admin: 11/30/17 07:39 Dose: Not Given Insulin Human Regular (Humulin R Low) 0 units SC ACHS JERE PRN Reason: Protocol Last Admin: 11/30/17 07:38 Dose: Not Given Lactobacillus Acidophilus (Bacid Acidophilus) 1 cap PO BID [facility] Last Admin: 11/30/17 10:05 Dose: Not Given Losartan Potassium (Cozaar) 100 mg PO DAILY [facility] Last Admin: 11/29/17 11:13 Dose: 100 mg Memantine (Namenda) 5 mg PO DAILY [facility] Last Admin: 11/29/17 11:13 Dose: 5 mg [id number]-[id number] Ethyl Esters (Lovaza) 1 gm PO BID [facility] Last Admin: 11/30/17 10:05 Dose: Not Given Pantoprazole Sodium (Protonix Ec Tab) 40 mg PO DAILY [facility] Last Admin: 11/29/17 11:12 Dose: 40 mg Tamsulosin HCl (Flomax) 0.4 mg PO DAILY [facility] Last Admin: 11/29/17 11:12 Dose: 0.4 mg - Labs Labs: 11/30/17 06:00 11/30/17 06:00 PT 12.5 SECONDS (9.4-12.5) 11/25/17 08:15 INR 1.09 (0.93-1.08) H 11/25/17 08:15 APTT 35.1 Seconds (25.1-36.5) 11/25/17 08:15 - Constitutional Appears: Well, No Acute Distress - Head Exam Head Exam: ATRAUMATIC, NORMAL INSPECTION, NORMOCEPHALIC - Eye Exam Eye Exam: EOMI, Normal appearance - ENT Exam ENT Exam: Mucous Membranes Moist - Respiratory Exam Respiratory Exam: Clear to Ausculation Bilateral, Wheezes, NORMAL BREATHING PATTERN. absent: Rales, Rhonchi, Respiratory Distress - Cardiovascular Exam Cardiovascular Exam: RRR, +S1, +S2 Additional comments: Pacemaker in place in R upper chest. Overlying skin dry and intact without discharge. - GI/Abdominal Exam GI & Abdominal Exam: Soft, Normal Bowel Sounds. absent: Guarding, Tenderness, Rebound - Extremities Exam Additional comments: L 5th toe wrapped. 1+ Dorsalis pedis and anterior tibial pulses appreciated with ultrasound aid. - Neurological Exam Neurological Exam: Alert, Awake, Oriented x3 - Skin Skin Exam: Dry, Intact, Normal Color, Warm Assessment and Plan - Assessment and Plan (Free Text) Assessment: Assessment: Mr. Dangelo is a 77 year old male with pertinent medical history of recent osteomyelitis, ESRD on HD MWF, IDDM, HLD, Dementia, BPH, HTN, GERD who presented with generalized fatigue and subjective fevers. Patient was found to be septic with leukocytosis and fever of 100.9 on arrival. Patient was admitted for sepsis work up, ruling out foot vs. lung vs dialysis AV fistula as source of infection. Patient subsequently transferred to ICU after multiple episodes of several second pauses of asystole overnight. Single ventricle pacemaker placement without issue, followed by HD. Patient transferred from telemetry. Plan: SIRS of Unknown Source, likely 2/2 Osteomyelitis vs PNA vs Dialysis AV Fistula 2/4 Tachypnea, Febrile on admission, unknown source. VSS CXR significant for reticular nodular opacities in the lower lobes - ? atypical pneumonitis vs interstitial edema. Mild pulmonary venous congestion. Repeat CXR today shows Right basilar opacity, possible PNA, and possible small pleural effusions at both costophrenic angles ID Consult - Dr. Lance, f/u blood and urine cultures Per ID, continue intermittent vanc and meropenem (day 6) pending wound culture. Currently on Merrem renally dosed 250 mg BID. Appreciate further recommendations regarding antibiotics per podiatry recommendations Asystole, possible 2/2 to beta june use vs heart block - resolved Patient had multiple episodes of asystole, lasting as long as 7 seconds on . Pacemaker placed 11/26 without issue. VSS. Carvedilol at 6.25, and continue hydralazine 100 prn per cardio recs Cardiology consult - Dr. Whalen Left foot infected ulcers Podiatry consulted (Dr. Espino) Patient getting vanc after dialysis MWF Necrotic ulceration of 5th digit debridement scheduled for today- will f/u podiatry recs Bone scan negative for O/M Arterial doppler studies- posterior tibial artery, anterior tibial artery, and perforating artery at ankle level is strongly monophasic Arterial duplex studies show bilateral tibial disease. Pulse palpable on posterior tibial and dorsalis pedis on Left foot. Will consider imaging study per podiatry recs ESRD on HD, MWF Continue with Phosziyad Fxo on consult Received 1 gm Vancomycin with HD today Continue coreg 12.[address] Fox Hx Diabetes Cont Accuchecks ACHS RISS low, cont Home lantus 10 U HS Consistent carb/renal dialysis/HH diet f/u a1c Cont. gabapentin 100mg HS for neuropathy Hx BPH Cont. flomax 0.4mg daily Hx HLD Continue lovaza, home med atorvastatin 40mg HS, home ASA 325 f/u lipid panel Dementia Cont. memantine 5mg daily Cont. donepezil 10mg HS Prophylaxis Cont. protonix 40mg PO daily Cont. heparin 5000u sc q12h Disposition: PT recommends TCU discharge with evaluation 3-5 times per week for 2 weeks. Would appreciate onsite case manager input regarding further care. Patient will f/u with Dr. Wilson in the pacemaker clinic upon discharge. Patient seen, case reviewed, and plan agreed upon with Dr. Zhong. Ez Nuñez, PGY-1 <Itz Zhong - Last Filed: 12/01/17 11:12> Objective - Vital Signs/Intake and Output Vital Signs (last 24 hours): Temp Pulse Resp BP Pulse Ox 97.9 F 63 20 116/60 96 12/01/17 08:10 12/01/17 08:10 12/01/17 08:10 12/01/17 10:10 12/01/17 08:10 Intake and Output: 12/01/17 12/01/17 06:59 18:59 Intake Total 100 Output Total 250 Balance -150 - Medications Medications: Current Medications Albuterol/Ipratropium (Duoneb 3 Mg/0.5 Mg (3 Ml) Ud) 3 ml IH [id number] [facility] Last Admin: 12/01/17 08:17 Dose: 3 ml Albuterol/Ipratropium (Duoneb 3 Mg/0.5 Mg (3 Ml) Ud) 3 ml IH Q2H PRN PRN Reason: Wheezing Amlodipine Besylate (Norvasc) 10 mg PO DAILY [facility] Aspirin (Aspirin) 325 mg PO DAILY [facility] Last Admin: 12/01/17 10:04 Dose: 325 mg Atorvastatin Calcium (Lipitor) 40 mg PO HS [facility] Last Admin: 11/30/17 21:47 Dose: 40 mg Calcium Acetate (Phoslo) 1,334 mg PO TID [facility] Last Admin: 12/01/17 10:05 Dose: 1,334 mg Carvedilol (Coreg) 6.25 mg PO 799,1999 [facility] Last Admin: 12/01/17 10:10 Dose: 6.25 mg Clonidine HCl (Catapres) 0.1 mg PO BID PRN PRN Reason: For SBP>160 & OR diastolic>100 Collagenase (Santyl) 0 gm TOP DAILY [facility] Last Admin: 12/01/17 10:06 Dose: 1 applic Donepezil HCl (Aricept) 10 mg PO HS [facility] Last Admin: 11/30/17 21:47 Dose: 10 mg Doxazosin Mesylate (Cardura) 2 mg PO BID [facility] Last Admin: 12/01/17 10:10 Dose: 2 mg Gabapentin (Neurontin) 100 mg PO HS [facility] PRN Reason: Protocol Last Admin: 11/30/17 21:47 Dose: 100 mg Heparin Sodium (Porcine) (Heparin) 5,000 units SC Q12 JERE PRN Reason: Protocol Last Admin: 12/01/17 10:09 Dose: 5,000 units Hydralazine HCl (Apresoline) 100 mg PO BID [facility] Last Admin: 12/01/17 10:04 Dose: Not Given Meropenem 250 mg/ Sodium (Chloride) 100 mls @ 100 mls/hr IVPB Q12H [facility] PRN Reason: Protocol Stop: 12/04/17 22:01 Last Admin: 12/01/17 10:07 Dose: 100 mls/hr Insulin Detemir (Levemir) 5 unit SC ACBHS [facility] Last Admin: 12/01/17 07:08 Dose: 5 units Insulin Human Regular (Humulin R Low) 0 units SC ACHS JERE PRN Reason: Protocol Last Admin: 12/01/17 08:04 Dose: Not Given Lactobacillus Acidophilus (Bacid Acidophilus) 1 cap PO BID [facility] Last Admin: 12/01/17 10:11 Dose: 1 cap Losartan Potassium (Cozaar) 100 mg PO DAILY [facility] Last Admin: 12/01/17 10:14 Dose: 100 mg Memantine (Namenda) 5 mg PO DAILY [facility] Last Admin: 12/01/17 10:07 Dose: 5 mg [id number] Ethyl Esters (Lovaza) 1 gm PO BID [facility] Last Admin: 12/01/17 10:07 Dose: 1 gm Pantoprazole Sodium (Protonix Ec Tab) 40 mg PO DAILY [facility] Last Admin: 12/01/17 10:05 Dose: 40 mg Tamsulosin HCl (Flomax) 0.4 mg PO DAILY [facility] Last Admin: 12/01/17 10:09 Dose: 0.4 mg - Labs Labs: 11/30/17 06:00 11/30/17 06:00 PT 12.5 SECONDS (9.4-12.5) 11/25/17 08:15 INR 1.09 (0.93-1.08) H 11/25/17 08:15 APTT 35.1 Seconds (25.1-36.5) 11/25/17 08:15 Attending/Attestation - Attestation I have personally seen and examined this patient.: Yes I have fully participated in the care of the patient.: Yes I have reviewed all pertinent clinical information, including history, physical exam and plan: Yes Notes (Text): 12/01/17 11:11 Medical record note made by the resident after discussion with my direction and input after the patient was personally seen and examined by me. I have reviewed the chart and agree that the record accurately reflects by personal performance of the history, physical exam, data review, and medical decision-making, in the course for the patient. I have also personally directed the plan of care. 77 year old male with past medical history of ESRD on HD , hypertension, diabetes and recent osteomyelitis on vancomycin during dialysis was admitted with weakness , fever 100.9 and leukocytosis 15.3. CXR shows reticular nodular opacities in the lower lobes which could represent atypical pneumonitis or interstitial edema and mild pulmonary venous congestion. Foot x-ray shows s/ p surgical amputation of the 3rd toe with no radiographic evidence of osteomyelitis. He was started on iv antibiotics. He was transferred to ICU due to bradycardia ,prolinged sinus pauses and is SP pacemaker. Patient bone scan is negative for osteomyelitis .Patient underwent debridement of wound on , on IV antibiotics as per ID.Patient is afebrile, will likely need to go [facility] , Prognosis is guarded.
[2017-11-30] MEDS: Vancomycin 1gm in NS 250ml 1 GM/250 ML BAG IVPB SCH (13:18)
[2017-11-30] MEDS: Pantoprazole 40 mg EC Tab PO SCH (14:13)
[2017-11-30] MEDS: Collagenase 250 Units/gm Ointment(30 gm) TOP SCH (14:15)
--- NOTE | 2017-11-30 15:09 | CP.PCM.PN ---
Subjective - Date & Time of Evaluation Date of Evaluation: 11/30/17 Time of Evaluation: 10:00 - Subjective Subjective: For dialysis today, no fevers. Objective - Vital Signs/Intake and Output Vital Signs (last 24 hours): Temp Pulse Resp BP Pulse Ox 97.9 F 64 20 125/58 L 94 L 11/30/17 06:00 11/30/17 06:00 11/30/17 06:00 11/30/17 06:00 11/30/17 06:00 Intake and Output: 11/30/17 11/30/17 06:59 18:59 Intake Total 340 Output Total 1 Balance 339 - Medications Medications: Current Medications Albuterol/Ipratropium (Duoneb 3 Mg/0.5 Mg (3 Ml) Ud) 3 ml IH [id number] [facility] Last Admin: 11/30/17 07:29 Dose: 3 ml Albuterol/Ipratropium (Duoneb 3 Mg/0.5 Mg (3 Ml) Ud) 3 ml IH Q2H PRN PRN Reason: Wheezing Amlodipine Besylate (Norvasc) 10 mg PO DAILY [facility] Aspirin (Aspirin) 325 mg PO DAILY [facility] Last Admin: 11/29/17 11:12 Dose: 325 mg Atorvastatin Calcium (Lipitor) 40 mg PO HS [facility] Last Admin: 11/29/17 21:45 Dose: 40 mg Calcium Acetate (Phoslo) 1,334 mg PO TID [facility] Last Admin: 11/30/17 10:06 Dose: Not Given Carvedilol (Coreg) 6.25 mg PO 0800,1999 [facility] Last Admin: 11/30/17 10:05 Dose: Not Given Clonidine HCl (Catapres) 0.1 mg PO BID PRN PRN Reason: For SBP>160 & OR diastolic>100 Collagenase (Santyl) 0 gm TOP DAILY [facility] Donepezil HCl (Aricept) 10 mg PO HS [facility] Last Admin: 11/29/17 21:45 Dose: 10 mg Doxazosin Mesylate (Cardura) 2 mg PO BID [facility] Last Admin: 11/30/17 10:05 Dose: Not Given Gabapentin (Neurontin) 100 mg PO HS [facility] PRN Reason: Protocol Last Admin: 11/29/17 21:45 Dose: 100 mg Heparin Sodium (Porcine) (Heparin) 5,000 units SC Q12 [facility]ERE PRN Reason: Protocol Last Admin: 11/30/17 10:05 Dose: Not Given Hydralazine HCl (Apresoline) 100 mg PO BID [facility] Last Admin: 11/30/17 10:04 Dose: Not Given Meropenem 250 mg/ Sodium (Chloride) 100 mls @ 100 mls/hr IVPB Q12H [facility] PRN Reason: Protocol Stop: 12/04/17 22:01 Last Admin: 11/29/17 21:44 Dose: 100 mls/hr Vancomycin HCl (Vancomycin 1gm) 1 gm in 250 mls @ 167 mls/hr IVPB QOTHERDAY [facility] PRN Reason: Protocol Stop: 11/30/17 23:59 Last Admin: 11/28/17 12:02 Dose: 167 mls/hr Insulin Detemir (Levemir) 5 unit SC ACBHS [facility] Last Admin: 11/30/17 07:39 Dose: Not Given Insulin Human Regular (Humulin R Low) 0 units SC ACHS [facility] PRN Reason: Protocol Last Admin: 11/30/17 07:38 Dose: Not Given Lactobacillus Acidophilus (Bacid Acidophilus) 1 cap PO BID [facility] Last Admin: 11/30/17 10:05 Dose: Not Given Losartan Potassium (Cozaar) 100 mg PO DAILY [facility] Last Admin: 11/29/17 11:13 Dose: 100 mg Memantine (Namenda) 5 mg PO DAILY [facility] Last Admin: 11/29/17 11:13 Dose: 5 mg [id number] Ethyl Esters (Lovaza) 1 gm PO BID [facility] Last Admin: 11/30/17 10:05 Dose: Not Given Pantoprazole Sodium (Protonix Ec Tab) 40 mg PO DAILY [facility] Last Admin: 11/29/17 11:12 Dose: 40 mg Tamsulosin HCl (Flomax) 0.4 mg PO DAILY [facility] Last Admin: 11/29/17 11:12 Dose: 0.4 mg - Labs Labs: 11/30/17 06:00 11/30/17 06:00 PT 12.5 SECONDS (9.4-12.5) 11/25/17 08:15 INR 1.09 (0.93-1.08) H 11/25/17 08:15 APTT 35.1 Seconds (25.1-36.5) 11/25/17 08:15 - Constitutional Appears: Chronically Ill - Head Exam Head Exam: NORMAL INSPECTION - Respiratory Exam Respiratory Exam: Decreased Breath Sounds - Cardiovascular Exam Cardiovascular Exam: +S1, +S2 - GI/Abdominal Exam GI & Abdominal Exam: Soft. absent: Tenderness Assessment and Plan - Assessment and Plan (Free Text) Plan: Assessment severe sepsis due to left foot cellulitis with left 5th toe gangrene history of severe sepsis due to healthcare-associated pneumonia as well as epiglottitis with oropahryngeal candidiasis ESRD on HD DM HTN morbid obesity with BMI 41 dyslipidemia COPD cataracts chronic low back pain Plan continue intermittent Vancomycin and Merrem (day 6) pending wound cx and further plans of Podiatry (planned for debridement) - bone scan does not show osteomyelitis
--- NOTE | 2017-12-01 00:11 | CP.PCM.PN ---
<Johnie Stoner - Last Filed: 12/01/17 00:22> Subjective - Date & Time of Evaluation Date of Evaluation: 11/30/17 Time of Evaluation: 15:30 - Subjective Subjective: Podiatry Progress Note- Dr. Gleason/Dr. Maher 77 y.o male seen and evaluated at bedside with for bilateral foot ulcerations including left 5th digit necrotic tissue. Patient is seen resting comfortably in bed, in NAD, AA0x3. Patient reports pain to the left foot. Worse with pressure. Reports he is tolerating pain well. Denies any increase in pain after debridement of necrotic 5th digit ulceration yesterday at bedside. Patient reports he worked with physical therapy too and was able to ambulate. Denies nausea, fever, shortness of breath, chest pains or chills. No other pedal complains Objective - Vital Signs/Intake and Output Vital Signs (last 24 hours): Temp Pulse Resp BP Pulse Ox 98.0 F 60 19 121/69 94 L 11/30/17 17:25 11/30/17 21:48 11/30/17 17:25 11/30/17 21:48 11/30/17 17:25 Intake and Output: 11/30/17 12/01/17 18:59 06:59 Intake Total 0 Output Total 250 Balance -250 - Medications Medications: Current Medications Albuterol/Ipratropium (Duoneb 3 Mg/0.5 Mg (3 Ml) Ud) 3 ml IH [id number] [facility] Last Admin: 11/30/17 20:10 Dose: 3 ml Albuterol/Ipratropium (Duoneb 3 Mg/0.5 Mg (3 Ml) Ud) 3 ml IH Q2H PRN PRN Reason: Wheezing Amlodipine Besylate (Norvasc) 10 mg PO DAILY [facility] Aspirin (Aspirin) 325 mg PO DAILY [facility] Last Admin: 11/30/17 14:12 Dose: 325 mg Atorvastatin Calcium (Lipitor) 40 mg PO HS [facility] Last Admin: 11/30/17 21:47 Dose: 40 mg Calcium Acetate (Phoslo) 1,334 mg PO TID [facility] Last Admin: 11/30/17 17:44 Dose: 1,334 mg Carvedilol (Coreg) 6.25 mg PO 0800,1999 [facility] Last Admin: 11/30/17 21:48 Dose: Not Given Clonidine HCl (Catapres) 0.1 mg PO BID PRN PRN Reason: For SBP>160 & OR diastolic>100 Collagenase (Santyl) 0 gm TOP DAILY [facility] Last Admin: 11/30/17 14:15 Dose: Not Given Donepezil HCl (Aricept) 10 mg PO HS [facility] Last Admin: 11/30/17 21:47 Dose: 10 mg Doxazosin Mesylate (Cardura) 2 mg PO BID [facility] Last Admin: 11/30/17 17:44 Dose: 2 mg Gabapentin (Neurontin) 100 mg PO HS [facility] PRN Reason: Protocol Last Admin: 11/30/17 21:47 Dose: 100 mg Heparin Sodium (Porcine) (Heparin) 5,000 units SC Q12 [facility] PRN Reason: Protocol Last Admin: 11/30/17 21:49 Dose: 5,000 units Hydralazine HCl (Apresoline) 100 mg PO BID [facility] Last Admin: 11/30/17 17:44 Dose: 100 mg Meropenem 250 mg/ Sodium (Chloride) 100 mls @ 100 mls/hr IVPB Q12H [facility] PRN Reason: Protocol Stop: 12/04/17 22:01 Last Admin: 11/30/17 21:47 Dose: 100 mls/hr Insulin Detemir (Levemir) 5 unit SC ACBHS [facility] Last Admin: 11/30/17 22:06 Dose: Not Given Insulin Human Regular (Humulin R Low) 0 units SC ACHS [facility] PRN Reason: Protocol Last Admin: 11/30/17 22:05 Dose: Not Given Lactobacillus Acidophilus (Bacid Acidophilus) 1 cap PO BID [facility] Last Admin: 11/30/17 17:44 Dose: 1 cap Losartan Potassium (Cozaar) 100 mg PO DAILY [facility] Last Admin: 11/30/17 14:13 Dose: 100 mg Memantine (Namenda) 5 mg PO DAILY [facility] Last Admin: 11/30/17 14:13 Dose: 5 mg [id number] Ethyl Esters (Lovaza) 1 gm PO BID [facility] Last Admin: 11/30/17 17:44 Dose: 1 gm Pantoprazole Sodium (Protonix Ec Tab) 40 mg PO DAILY [facility] Last Admin: 11/30/17 14:13 Dose: 40 mg Tamsulosin HCl (Flomax) 0.4 mg PO DAILY [facility] Last Admin: 11/30/17 14:13 Dose: 0.4 mg - Labs Labs: 11/30/17 06:00 11/30/17 06:00 PT 12.5 SECONDS (9.4-12.5) 11/25/17 08:15 INR 1.09 (0.93-1.08) H 11/25/17 08:15 APTT 35.1 Seconds (25.1-36.5) 11/25/17 08:15 - Constitutional Appears: Well, Non-toxic, No Acute Distress - Extremities Exam Extremities Exam: absent: Calf Tenderness Additional comments: Bilateral LE focused Exam: VASC: DP/PT pulses are very faintly palpable 1/4 bilaterally, Cap refill time slightly delayed > 3 sec, skin temperature: warm to cool from proximal to distal , mild non-pitting edema noted on the dorsum of the left foot DERM: Ulceration on the dorsum of the 5th digit measuring approximately 2 cm x 3 cm x .2 with wound bed mixture of fibrotic and granular tissue, mild serous sangious drainage, localized erythema noted at the dorsum of the left forefoot, probe to bone with likely osteomyelitis of 5th digit, no malodor, no tunneling or tracking, no purulent drainage, Superficial ulcerations noted to dorsum of digits 1,2, and 4 with wound base being 100% fibrotic. All wounds are negative for drainage, malodor, tunneling, tracking, undermining, erythema or clinical signs of infection Right foot ulceration noted to the dorsum of the 5th digit measuring approximately .5 cm x .5cm x .1, superficial, wound base granular, no clinical signs of infection NEURO: Protective sensation and gross sensation diminished ORTHO: Pain present during palpation of the digits particularly the 5th digit - Neurological Exam Neurological Exam: Alert, Awake, Oriented x3 - Psychiatric Exam Psychiatric exam: Normal Affect, Normal Mood Assessment and Plan - Assessment and Plan (Free Text) Assessment: 77 year old male with PMHx of IDDM, HTN, HLD, BPH, Dementia, GERD and ESRD was evaluated for 1) s/p excisional debridement of 5th digit necrotic tissue probe to bone with clinical diagnosis of osteomyelitis of left 5th digit 2) superficial non-infected ulcerations on the dorsal aspect of the digits 1,2,4 left foot 3) right foot with 5th digit superficial ulceration Plan: Patient seen and evaluated Discussed plan with attendings and Dr. Maher Labs, vitals and charts reviewed - afebrile, WBC=6.0 X-rays of left foot reviewed - Periosteal reaction with cortical break at the proximal phalanx of the left 5th digit, no subcutaneous emphysema noted Arterial duplex/ABIs- likely calcified vessels Right 1.12, Left 1.2 Patient clinically has osteomyelitis of left 5th digit Will need 4-6 weeks of abx. Abx per ID recommendations. Wound culture taken of left 5th digit- pending Cleanse ulceration with saline solution, dressed with xeroform, dsd, and kerlix. Santyl not a bedside. Will apply Santyl tomorrow to ulceration. Patient may WBAT in surgical shoe c/w physical therapy c/w multipodus boots, to be worn at all times while in bed Podiatry to follow patient while in-house <Jose Gleason - Last Filed: 12/01/17 08:15> Objective - Vital Signs/Intake and Output Vital Signs (last 24 hours): Temp Pulse Resp BP Pulse Ox 97.9 F 63 20 116/62 96 12/01/17 08:10 12/01/17 08:10 12/01/17 08:10 12/01/17 08:10 12/01/17 08:10 Intake and Output: 12/01/17 12/01/17 06:59 18:59 Intake Total 100 Output Total 250 Balance -150 - Medications Medications: Current Medications Albuterol/Ipratropium (Duoneb 3 Mg/0.5 Mg (3 Ml) Ud) 3 ml IH [id number] [facility] Last Admin: 12/01/17 01:50 Dose: 3 ml Albuterol/Ipratropium (Duoneb 3 Mg/0.5 Mg (3 Ml) Ud) 3 ml IH Q2H PRN PRN Reason: Wheezing Amlodipine Besylate (Norvasc) 10 mg PO DAILY [facility] Aspirin (Aspirin) 325 mg PO DAILY [facility] Last Admin: 11/30/17 14:12 Dose: 325 mg Atorvastatin Calcium (Lipitor) 40 mg PO HS [facility] Last Admin: 11/30/17 21:47 Dose: 40 mg Calcium Acetate (Phoslo) 1,334 mg PO TID [facility] Last Admin: 11/30/17 17:44 Dose: 1,334 mg Carvedilol (Coreg) 6.25 mg PO 799,1999 [facility] Last Admin: 11/30/17 21:48 Dose: Not Given Clonidine HCl (Catapres) 0.1 mg PO BID PRN PRN Reason: For SBP>160 & OR diastolic>100 Collagenase (Santyl) 0 gm TOP DAILY [facility] Last Admin: 11/30/17 14:15 Dose: Not Given Donepezil HCl (Aricept) 10 mg PO HS [facility] Last Admin: 11/30/17 21:47 Dose: 10 mg Doxazosin Mesylate (Cardura) 2 mg PO BID [facility] Last Admin: 11/30/17 17:44 Dose: 2 mg Gabapentin (Neurontin) 100 mg PO HS [facility] PRN Reason: Protocol Last Admin: 11/30/17 21:47 Dose: 100 mg Heparin Sodium (Porcine) (Heparin) 5,000 units SC Q12 [facility] PRN Reason: Protocol Last Admin: 11/30/17 21:49 Dose: 5,000 units Hydralazine HCl (Apresoline) 100 mg PO BID [facility] Last Admin: 11/30/17 17:44 Dose: 100 mg Meropenem 250 mg/ Sodium (Chloride) 100 mls @ 100 mls/hr IVPB Q12H [facility] PRN Reason: Protocol Stop: 12/04/17 22:01 Last Admin: 11/30/17 21:47 Dose: 100 mls/hr Insulin Detemir (Levemir) 5 unit SC ACBHS [facility] Last Admin: 11/30/17 22:06 Dose: Not Given Insulin Human Regular (Humulin R Low) 0 units SC ACHS [facility] PRN Reason: Protocol Last Admin: 12/01/17 08:04 Dose: Not Given Lactobacillus Acidophilus (Bacid Acidophilus) 1 cap PO BID [facility] Last Admin: 11/30/17 17:44 Dose: 1 cap Losartan Potassium (Cozaar) 100 mg PO DAILY [facility] Last Admin: 11/30/17 14:13 Dose: 100 mg Memantine (Namenda) 5 mg PO DAILY [facility] Last Admin: 11/30/17 14:13 Dose: 5 mg [id number] Ethyl Esters (Lovaza) 1 gm PO BID [facility] Last Admin: 11/30/17 17:44 Dose: 1 gm Pantoprazole Sodium (Protonix Ec Tab) 40 mg PO DAILY [facility] Last Admin: 11/30/17 14:13 Dose: 40 mg Tamsulosin HCl (Flomax) 0.4 mg PO DAILY [facility] Last Admin: 11/30/17 14:13 Dose: 0.4 mg - Labs Labs: 11/30/17 06:00 11/30/17 06:00 PT 12.5 SECONDS (9.4-12.5) 11/25/17 08:15 INR 1.09 (0.93-1.08) H 11/25/17 08:15 APTT 35.1 Seconds (25.1-36.5) 11/25/17 08:15 Attending/Attestation - Attestation I have personally seen and examined this patient.: Yes I have fully participated in the care of the patient.: Yes I have reviewed all pertinent clinical information, including history, physical exam and plan: Yes
[2017-12-01] MEDS: Albuterol-Ipratrop 3 mg / 0.5 (3 ml) UD IH SCH ×4 (01:50→20:43)
[2017-12-01] MEDS: Insulin Detemir 100 units/ml Vial (Levemir) SC SCH ×2 (07:08→21:48)
--- NOTE | 2017-12-01 07:38 | CP.PCM.PN ---
Subjective - Date & Time of Evaluation Date of Evaluation: 12/01/17 Time of Evaluation: 07:10 - Subjective Subjective: Awake,lying in bed, denies chest pain, denies shortness of breath Reason for consultation and follow up: Status post pacemaker for multiple pauses , history of ESRD, hypertension, peripheral artery disease,hyperlipidemia. Seen and examined by me and Dr. Mckeon Objective - Vital Signs/Intake and Output Vital Signs (last 24 hours): Temp Pulse Resp BP Pulse Ox 98.0 F 60 19 121/69 94 L 11/30/17 17:25 11/30/17 21:48 11/30/17 17:25 11/30/17 21:48 11/30/17 17:25 Intake and Output: 12/01/17 12/01/17 06:59 18:59 Intake Total 100 Output Total 250 Balance -150 - Medications Medications: Current Medications Albuterol/Ipratropium (Duoneb 3 Mg/0.5 Mg (3 Ml) Ud) 3 ml IH [id number] [facility] Last Admin: 12/01/17 01:50 Dose: 3 ml Albuterol/Ipratropium (Duoneb 3 Mg/0.5 Mg (3 Ml) Ud) 3 ml IH Q2H PRN PRN Reason: Wheezing Amlodipine Besylate (Norvasc) 10 mg PO DAILY [facility] Aspirin (Aspirin) 325 mg PO DAILY [facility] Last Admin: 11/30/17 14:12 Dose: 325 mg Atorvastatin Calcium (Lipitor) 40 mg PO HS [facility] Last Admin: 11/30/17 21:47 Dose: 40 mg Calcium Acetate (Phoslo) 1,334 mg PO TID [facility] Last Admin: 11/30/17 17:44 Dose: 1,334 mg Carvedilol (Coreg) 6.25 mg PO 799,1999 [facility] Last Admin: 11/30/17 21:48 Dose: Not Given Clonidine HCl (Catapres) 0.1 mg PO BID PRN PRN Reason: For SBP>160 & OR diastolic>100 Collagenase (Santyl) 0 gm TOP DAILY [facility] Last Admin: 11/30/17 14:15 Dose: Not Given Donepezil HCl (Aricept) 10 mg PO HS [facility] Last Admin: 11/30/17 21:47 Dose: 10 mg Doxazosin Mesylate (Cardura) 2 mg PO BID [facility] Last Admin: 11/30/17 17:44 Dose: 2 mg Gabapentin (Neurontin) 100 mg PO HS [facility] PRN Reason: Protocol Last Admin: 11/30/17 21:47 Dose: 100 mg Heparin Sodium (Porcine) (Heparin) 5,000 units SC Q12 [facility] PRN Reason: Protocol Last Admin: 11/30/17 21:49 Dose: 5,000 units Hydralazine HCl (Apresoline) 100 mg PO BID [facility] Last Admin: 11/30/17 17:44 Dose: 100 mg Meropenem 250 mg/ Sodium (Chloride) 100 mls @ 100 mls/hr IVPB Q12H [facility] PRN Reason: Protocol Stop: 12/04/17 22:01 Last Admin: 11/30/17 21:47 Dose: 100 mls/hr Insulin Detemir (Levemir) 5 unit SC ACBHS [facility] Last Admin: 11/30/17 22:06 Dose: Not Given Insulin Human Regular (Humulin R Low) 0 units SC ACHS [facility] PRN Reason: Protocol Last Admin: 11/30/17 22:05 Dose: Not Given Lactobacillus Acidophilus (Bacid Acidophilus) 1 cap PO BID [facility] Last Admin: 11/30/17 17:44 Dose: 1 cap Losartan Potassium (Cozaar) 100 mg PO DAILY [facility] Last Admin: 11/30/17 14:13 Dose: 100 mg Memantine (Namenda) 5 mg PO DAILY [facility] Last Admin: 11/30/17 14:13 Dose: 5 mg [id number] Ethyl Esters (Lovaza) 1 gm PO BID [facility] Last Admin: 11/30/17 17:44 Dose: 1 gm Pantoprazole Sodium (Protonix Ec Tab) 40 mg PO DAILY [facility] Last Admin: 11/30/17 14:13 Dose: 40 mg Tamsulosin HCl (Flomax) 0.4 mg PO DAILY [facility] Last Admin: 11/30/17 14:13 Dose: 0.4 mg - Labs Labs: 11/30/17 06:00 11/30/17 06:00 PT 12.5 SECONDS (9.4-12.5) 11/25/17 08:15 INR 1.09 (0.93-1.08) H 11/25/17 08:15 APTT 35.1 Seconds (25.1-36.5) 11/25/17 08:15 - Constitutional Appears: No Acute Distress - Eye Exam Eye Exam: Normal appearance - ENT Exam ENT Exam: Mucous Membranes Moist - Respiratory Exam Respiratory Exam: Decreased Breath Sounds, NORMAL BREATHING PATTERN - Cardiovascular Exam Cardiovascular Exam: +S1, +S2 Additional comments: PPM - GI/Abdominal Exam GI & Abdominal Exam: Soft, Normal Bowel Sounds - Exam Additional comments: Hemodialysis 3x a week (MWF) - Extremities Exam Additional comments: left AV shunt + bruit/thrill left foot wrapped kerlix - Neurological Exam Neurological Exam: Alert, Awake, Oriented x3 - Psychiatric Exam Psychiatric exam: Normal Affect - Skin Skin Exam: Intact, Warm Assessment and Plan - Assessment and Plan (Free Text) Assessment: 77 year old male who came in to the ER due to generalized fatigue. History of hypertension, ESRD, on hemodialysis MWF. left AV shunt. 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 Cardiac consult was called due to multiple pauses on EKG. PPM was inserted. He was in ICU and now transferred to telemetry. Plan: Cardiac status stable Stable heart rate and blood pressure On ASA 325 mg daily,Norvasc 10 mg daily,Coreg 6.25 mg BID, Catapres 0.1 mg BID PRN, Cardura 2 mg BID, Heparin 5000 units SQ, Hydralazine 100mg BID, Cozaar 100 mg daily,Flomax 0.4 mg daily. On IV antibiotics per ID (leg cellulitis Continue current treatment Continue current medications On hemodialysis (MWF) Will follow up Plan and treatment discussed with Dr. Mckeon
[2017-12-01] MEDS: Insulin Reg-LOW-Coverage SC SCH ×4 (08:04→22:00)
[2017-12-01] MEDS: Pantoprazole 40 mg EC Tab PO SCH (10:05)
[2017-12-01] MEDS: Collagenase 250 Units/gm Ointment(30 gm) TOP SCH (10:06)
[2017-12-01] MEDS: Omega-3-Acid Ethyl Esters 1 GM Cap PO SCH ×2 (10:07→17:59)
[2017-12-01] MEDS: Lactobacillus Acidophilus 500 MU Cap PO SCH ×2 (10:11→17:58)
--- NOTE | 2017-12-01 11:07 | CP.PCM.PN ---
<Marisa Eng - Last Filed: 12/01/17 11:17> Subjective - Date & Time of Evaluation Date of Evaluation: 12/01/17 Time of Evaluation: 11:03 - Subjective Subjective: Podiatry Progress Note for Dr. Gleason 77 yo male seen and evaluated for left superficial ulcerations on the dorsal aspect of the digits 1,2,4 and ulceration to left 5th digit with (+) probe to bone. Patient reports pain to the left foot and is worse when there is pressure on it. Denies any other pedal complaints at this time. Denies N/V/F/SOB/CP/C. Objective - Vital Signs/Intake and Output Vital Signs (last 24 hours): Temp Pulse Resp BP Pulse Ox 97.9 F 63 20 116/60 96 12/01/17 08:10 12/01/17 08:10 12/01/17 08:10 12/01/17 10:10 12/01/17 08:10 Intake and Output: 12/01/17 12/01/17 06:59 18:59 Intake Total 100 Output Total 250 Balance -150 - Medications Medications: Current Medications Albuterol/Ipratropium (Duoneb 3 Mg/0.5 Mg (3 Ml) Ud) 3 ml IH [id number] [facility] Last Admin: 12/01/17 08:17 Dose: 3 ml Albuterol/Ipratropium (Duoneb 3 Mg/0.5 Mg (3 Ml) Ud) 3 ml IH Q2H PRN PRN Reason: Wheezing Amlodipine Besylate (Norvasc) 10 mg PO DAILY [facility] Aspirin (Aspirin) 325 mg PO DAILY [facility] Last Admin: 12/01/17 10:04 Dose: 325 mg Atorvastatin Calcium (Lipitor) 40 mg PO HS [facility] Last Admin: 11/30/17 21:47 Dose: 40 mg Calcium Acetate (Phoslo) 1,334 mg PO TID [facility] Last Admin: 12/01/17 10:05 Dose: 1,334 mg Carvedilol (Coreg) 6.25 mg PO 0800,1999 [facility] Last Admin: 12/01/17 10:10 Dose: 6.25 mg Clonidine HCl (Catapres) 0.1 mg PO BID PRN PRN Reason: For SBP>160 & OR diastolic>100 Collagenase (Santyl) 0 gm TOP DAILY [facility] Last Admin: 12/01/17 10:06 Dose: 1 applic Donepezil HCl (Aricept) 10 mg PO HS [facility] Last Admin: 11/30/17 21:47 Dose: 10 mg Doxazosin Mesylate (Cardura) 2 mg PO BID [facility] Last Admin: 12/01/17 10:10 Dose: 2 mg Gabapentin (Neurontin) 100 mg PO HS [facility] PRN Reason: Protocol Last Admin: 11/30/17 21:47 Dose: 100 mg Heparin Sodium (Porcine) (Heparin) 5,000 units SC Q12 [facility] PRN Reason: Protocol Last Admin: 12/01/17 10:09 Dose: 5,000 units Hydralazine HCl (Apresoline) 100 mg PO BID [facility] Last Admin: 12/01/17 10:04 Dose: Not Given Meropenem 250 mg/ Sodium (Chloride) 100 mls @ 100 mls/hr IVPB Q12H [facility] PRN Reason: Protocol Stop: 12/04/17 22:01 Last Admin: 12/01/17 10:07 Dose: 100 mls/hr Insulin Detemir (Levemir) 5 unit SC ACBHS [facility] Last Admin: 12/01/17 07:08 Dose: 5 units Insulin Human Regular (Humulin R Low) 0 units SC ACHS [facility] PRN Reason: Protocol Last Admin: 12/01/17 08:04 Dose: Not Given Lactobacillus Acidophilus (Bacid Acidophilus) 1 cap PO BID [facility] Last Admin: 12/01/17 10:11 Dose: 1 cap Losartan Potassium (Cozaar) 100 mg PO DAILY [facility] Last Admin: 12/01/17 10:14 Dose: 100 mg Memantine (Namenda) 5 mg PO DAILY [facility] Last Admin: 12/01/17 10:07 Dose: 5 mg Zohpo-4-Hgtw Ethyl Esters (Lovaza) 1 gm PO BID [facility] Last Admin: 12/01/17 10:07 Dose: 1 gm Pantoprazole Sodium (Protonix Ec Tab) 40 mg PO DAILY [facility] Last Admin: 12/01/17 10:05 Dose: 40 mg Tamsulosin HCl (Flomax) 0.4 mg PO DAILY [facility] Last Admin: 12/01/17 10:09 Dose: 0.4 mg - Labs Labs: 11/30/17 06:00 11/30/17 06:00 PT 12.5 SECONDS (9.4-12.5) 11/25/17 08:15 INR 1.09 (0.93-1.08) H 11/25/17 08:15 APTT 35.1 Seconds (25.1-36.5) 11/25/17 08:15 - Constitutional Appears: Well, Non-toxic, No Acute Distress - Head Exam Head Exam: ATRAUMATIC, NORMOCEPHALIC - Extremities Exam Additional comments: VASC: DP/PT pulses 1/4 bilaterally, Capillary refill time > 3 sec, skin temperature warm to cool bilaterally, mild brawny edema noted on the dorsum of the left foot ORTHO: Pain upon palpation of the dorsal apsect of left digits. Pain upon palpation greatest to the left 5th digit. 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 NEURO: Gross and protective sensation diminished DERM: Ulceration on the dorsum of the left 5th digit measuring approximately 2 cm x 3 cm x .2 with fibrotic and granular base, mild serous drainage, localized erythema noted at the dorsum of the left forefoot, probe to bone of 5th digit, no malodor, no tunneling or tracking, no purulent drainage. Additional superficial ulcerations noted to dorsum of digits 1, 2,and 4 with fibrotic base ; negative for drainage, malodor, tunneling, tracking, undermining, erythema or any clinical signs of infection. Right foot ulceration noted to the dorsum of the 5th digit measuring approximately .5 cm x .5cm x .1, superficial, wound base granular, no clinical signs of infection - Neurological Exam Neurological Exam: Alert, Awake, Oriented x3 - Psychiatric Exam Psychiatric exam: Normal Affect, Normal Mood Assessment and Plan - Assessment and Plan (Free Text) Assessment: 77 year old male seen and evaluated for left superficial ulcerations on the dorsal aspect of the digits 1,2,4 and ulceration to left 5th digit with (+) probe to bone. Plan: Patient seen and evaluated with Dr. Gleason Labs, vitals and charts reviewed X-rays of left foot reviewed; Periosteal reaction with cortical break at the proximal phalanx of the left 5th digit, no subcutaneous emphysema noted Arterial duplex/BEATRIZ; Right 1.12, Left 1.2 Nuclear Bone Scan reviewed: negative for acute osseous process (12/01/17) Wound culture taken of left 5th digit- negative for MRSA Cleansed left foot ulcerations with saline solution. Dressed left 5th digit with santyl, DSD, and Kerlix. Patient may WBAT in surgical shoe Patient to continue with physical therapy Patient to wear multipodus boots at all times while in bed Podiatry to follow patient while in-house <Jose Gleason - Last Filed: 12/04/17 12:12> Objective - Vital Signs/Intake and Output Vital Signs (last 24 hours): Temp Pulse Resp BP Pulse Ox 98.9 F 79 20 180/65 H 91 L 12/04/17 08:10 12/04/17 11:07 12/04/17 08:10 12/04/17 11:07 12/04/17 08:10 Intake and Output: 12/04/17 12/04/17 06:59 18:59 Intake Total 0 Balance 0 - Medications Medications: Current Medications Albuterol/Ipratropium (Duoneb 3 Mg/0.5 Mg (3 Ml) Ud) 3 ml IH [id number] [facility] Last Admin: 12/04/17 07:26 Dose: 3 ml Albuterol/Ipratropium (Duoneb 3 Mg/0.5 Mg (3 Ml) Ud) 3 ml IH Q2H PRN PRN Reason: Wheezing Amlodipine Besylate (Norvasc) 10 mg PO DAILY [facility] Aspirin (Aspirin) 325 mg PO DAILY [facility] Last Admin: 12/04/17 11:06 Dose: 325 mg Atorvastatin Calcium (Lipitor) 40 mg PO HS [facility] Last Admin: 12/03/17 22:02 Dose: 40 mg Calcium Acetate (Phoslo) 1,334 mg PO TID [facility] Last Admin: 12/04/17 11:06 Dose: 1,334 mg Carvedilol (Coreg) 6.25 mg PO 0800,1999 [facility] Last Admin: 12/04/17 11:07 Dose: 6.25 mg Clonidine HCl (Catapres) 0.1 mg PO BID PRN PRN Reason: For SBP>160 & OR diastolic>100 Collagenase (Santyl) 0 gm TOP DAILY [facility] Last Admin: 12/04/17 11:31 Dose: 1 applic Donepezil HCl (Aricept) 10 mg PO HS [facility] Last Admin: 12/03/17 22:03 Dose: 10 mg Gabapentin (Neurontin) 100 mg PO HS [facility] PRN Reason: Protocol Last Admin: 12/03/17 22:04 Dose: 100 mg Heparin Sodium (Porcine) (Heparin) 5,000 units SC Q12 [facility] PRN Reason: Protocol Last Admin: 12/04/17 11:09 Dose: 5,000 units Hydralazine HCl (Apresoline) 100 mg PO BID [facility] Last Admin: 12/04/17 11:07 Dose: 100 mg Meropenem 250 mg/ Sodium (Chloride) 100 mls @ 100 mls/hr IVPB Q12H [facility] PRN Reason: Protocol Stop: 12/04/17 22:01 Last Admin: 12/04/17 11:22 Dose: 100 mls/hr Insulin Detemir (Levemir) 5 unit SC ACBHS [facility] Last Admin: 12/04/17 11:09 Dose: 5 units Insulin Human Regular (Humulin R Low) 0 units SC ACHS [facility] PRN Reason: Protocol Last Admin: 12/04/17 08:28 Dose: Not Given Lactobacillus Acidophilus (Bacid Acidophilus) 1 cap PO BID [facility] Last Admin: 12/04/17 11:07 Dose: 1 cap Losartan Potassium (Cozaar) 100 mg PO DAILY [facility] Last Admin: 12/04/17 11:06 Dose: 100 mg Memantine (Namenda) 5 mg PO DAILY [facility] Last Admin: 12/04/17 11:07 Dose: 5 mg Tdrwd-1-Mlfl Ethyl Esters (Lovaza) 1 gm PO BID [facility] Last Admin: 12/04/17 11:07 Dose: 1 gm Pantoprazole Sodium (Protonix Ec Tab) 40 mg PO DAILY [facility] Last Admin: 12/04/17 11:07 Dose: 40 mg Tamsulosin HCl (Flomax) 0.4 mg PO DAILY [facility] Last Admin: 12/04/17 11:07 Dose: 0.4 mg - Labs Labs: 12/04/17 06:00 12/04/17 06:00 PT 12.5 SECONDS (9.4-12.5) 11/25/17 08:15 INR 1.09 (0.93-1.08) H 11/25/17 08:15 APTT 35.1 Seconds (25.1-36.5) 11/25/17 08:15 Attending/Attestation - Attestation I have personally seen and examined this patient.: Yes I have fully participated in the care of the patient.: Yes I have reviewed all pertinent clinical information, including history, physical exam and plan: Yes
--- NOTE | 2017-12-01 12:41 | CP.PCM.PN ---
<Grayson Wilson - Last Filed: 12/01/17 12:38> Subjective - Date & Time of Evaluation Date of Evaluation: 12/01/17 Time of Evaluation: 08:50 - Subjective Subjective: Grayson Wilson DO PGY-1, [employer] Medicine Progress Note Pt seen and examined at bedside, denies any acute complaints currently. Pain only with moving L foot s/p debridement. Objective - Vital Signs/Intake and Output Vital Signs (last 24 hours): Temp Pulse Resp BP Pulse Ox 97.9 F 63 20 116/60 96 12/01/17 08:10 12/01/17 08:10 12/01/17 08:10 12/01/17 10:10 12/01/17 08:10 Intake and Output: 12/01/17 12/01/17 06:59 18:59 Intake Total 100 Output Total 250 Balance -150 - Medications Medications: Current Medications Albuterol/Ipratropium (Duoneb 3 Mg/0.5 Mg (3 Ml) Ud) 3 ml IH [id number] [facility] Last Admin: 12/01/17 08:17 Dose: 3 ml Albuterol/Ipratropium (Duoneb 3 Mg/0.5 Mg (3 Ml) Ud) 3 ml IH Q2H PRN PRN Reason: Wheezing Amlodipine Besylate (Norvasc) 10 mg PO DAILY [facility] Aspirin (Aspirin) 325 mg PO DAILY [facility] Last Admin: 12/01/17 10:04 Dose: 325 mg Atorvastatin Calcium (Lipitor) 40 mg PO HS [facility] Last Admin: 11/30/17 21:47 Dose: 40 mg Calcium Acetate (Phoslo) 1,334 mg PO TID [facility] Last Admin: 12/01/17 10:05 Dose: 1,334 mg Carvedilol (Coreg) 6.25 mg PO 0800,1999 [facility] Last Admin: 12/01/17 10:10 Dose: 6.25 mg Clonidine HCl (Catapres) 0.1 mg PO BID PRN PRN Reason: For SBP>160 & OR diastolic>100 Collagenase (Santyl) 0 gm TOP DAILY [facility] Last Admin: 12/01/17 10:06 Dose: 1 applic Donepezil HCl (Aricept) 10 mg PO HS [facility] Last Admin: 11/30/17 21:47 Dose: 10 mg Doxazosin Mesylate (Cardura) 2 mg PO BID [facility] Last Admin: 12/01/17 10:10 Dose: 2 mg Gabapentin (Neurontin) 100 mg PO HS [facility] PRN Reason: Protocol Last Admin: 11/30/17 21:47 Dose: 100 mg Heparin Sodium (Porcine) (Heparin) 5,000 units SC Q12 [facility] PRN Reason: Protocol Last Admin: 12/01/17 10:09 Dose: 5,000 units Hydralazine HCl (Apresoline) 100 mg PO BID [facility] Last Admin: 12/01/17 10:04 Dose: Not Given Meropenem 250 mg/ Sodium (Chloride) 100 mls @ 100 mls/hr IVPB Q12H [facility] PRN Reason: Protocol Stop: 12/04/17 22:01 Last Admin: 12/01/17 10:07 Dose: 100 mls/hr Insulin Detemir (Levemir) 5 unit SC ACBHS [facility] Last Admin: 12/01/17 07:08 Dose: 5 units Insulin Human Regular (Humulin R Low) 0 units SC ACHS [facility] PRN Reason: Protocol Last Admin: 12/01/17 08:04 Dose: Not Given Lactobacillus Acidophilus (Bacid Acidophilus) 1 cap PO BID [facility] Last Admin: 12/01/17 10:11 Dose: 1 cap Losartan Potassium (Cozaar) 100 mg PO DAILY [facility] Last Admin: 12/01/17 10:14 Dose: 100 mg Memantine (Namenda) 5 mg PO DAILY [facility] Last Admin: 12/01/17 10:07 Dose: 5 mg Pzlng-4-Oybh Ethyl Esters (Lovaza) 1 gm PO BID [facility] Last Admin: 12/01/17 10:07 Dose: 1 gm Pantoprazole Sodium (Protonix Ec Tab) 40 mg PO DAILY [facility] Last Admin: 12/01/17 10:05 Dose: 40 mg Tamsulosin HCl (Flomax) 0.4 mg PO DAILY [facility] Last Admin: 12/01/17 10:09 Dose: 0.4 mg - Labs Labs: 11/30/17 06:00 11/30/17 06:00 PT 12.5 SECONDS (9.4-12.5) 11/25/17 08:15 INR 1.09 (0.93-1.08) H 11/25/17 08:15 APTT 35.1 Seconds (25.1-36.5) 11/25/17 08:15 - Constitutional Appears: Non-toxic, No Acute Distress - Head Exam Head Exam: ATRAUMATIC, NORMAL INSPECTION, NORMOCEPHALIC - Eye Exam Eye Exam: EOMI, Normal appearance, PERRL - ENT Exam ENT Exam: Mucous Membranes Moist, Normal Oropharynx - Neck Exam Neck Exam: Full ROM, Normal Inspection - Respiratory Exam Respiratory Exam: Clear to Ausculation Bilateral, NORMAL BREATHING PATTERN - Cardiovascular Exam Cardiovascular Exam: REGULAR RHYTHM, +S1, +S2 - GI/Abdominal Exam GI & Abdominal Exam: Soft, Normal Bowel Sounds - Extremities Exam Extremities Exam: Normal Capillary Refill Additional comments: L fifth toe wrapped in gauze dressing - Back Exam Back Exam: NORMAL INSPECTION - Neurological Exam Neurological Exam: Alert, Awake, CN II-XII Intact - Psychiatric Exam Psychiatric exam: Normal Affect, Normal Mood - Skin Skin Exam: Dry, Intact, Normal Color, Warm Assessment and Plan - Assessment and Plan (Free Text) Assessment: 77 year old male with pertinent medical history of recent osteomyelitis, ESRD on HD MWF, IDDM, HLD, Dementia, BPH, HTN, GERD who presented with generalized fatigue and subjective fevers. Patient was found to be septic with leukocytosis and fever of 100.9 on arrival. Patient was admitted for sepsis work up, ruling out foot vs. lung vs dialysis AV fistula as source of infection. Patient subsequently transferred to ICU after multiple episodes of several second pauses of asystole overnight. Single ventricle pacemaker placement without issue, followed by HD. Patient transferred from telemetry. Plan: SIRS of Unknown Source, likely 2/2 Osteomyelitis vs PNA vs Dialysis AV Fistula 2/4 Tachypnea, Febrile on admission, unknown source. VSS CXR significant for reticular nodular opacities in the lower lobes - ? atypical pneumonitis vs interstitial edema. Mild pulmonary venous congestion. Repeat CXR today shows Right basilar opacity, possible PNA, and possible small pleural effusions at both costophrenic angles ID Consult - Dr. Lance, f/u blood and urine cultures Per ID, continue intermittent vanc and meropenem (day 7) pending wound culture. Currently on Merrem renally dosed 250 mg BID. Appreciate further recommendations regarding antibiotics per podiatry recommendations Asystole, possible 2/2 to beta june use vs heart block - resolved Patient had multiple episodes of asystole, lasting as long as 7 seconds on . Pacemaker placed 11/26 without issue. VSS. Carvedilol at 6.25, and continue hydralazine 100 prn per cardio recs Cardiology consult - Dr. Whalen Left foot infected ulcers Podiatry consulted (Dr. Espino) Patient getting vanc after dialysis MWF S/p debridement of Necrotic ulceration of 5th digit POD#2 - will f/u podiatry recs Bone scan negative for O/M Arterial doppler studies- posterior tibial artery, anterior tibial artery, and perforating artery at ankle level is strongly monophasic Arterial duplex studies show bilateral tibial disease. Pulse palpable on posterior tibial and dorsalis pedis on Left foot. Will consider imaging study per podiatry recs ESRD on HD, MWF Continue with Lars Fox on consult Continue coreg 12.[address] Fox Hx Diabetes Cont Accuchecks ACHS RISS low, cont Home lantus 10 U HS Consistent carb/renal dialysis/HH diet f/u a1c Cont. gabapentin 100mg HS for neuropathy Hx BPH Cont. flomax 0.4mg daily Hx HLD Continue lovaza, home med atorvastatin 40mg HS, home ASA 325 f/u lipid panel Dementia Cont. memantine 5mg daily Cont. donepezil 10mg HS Prophylaxis Cont. protonix 40mg PO daily Cont. heparin 5000u sc q12h Disposition: PT recommends TCU discharge with evaluation 3-5 times per week for 2 weeks. Would appreciate case maker input regarding further care. Patient will f/u with Dr. Wilson in the pacemaker clinic upon discharge. Grayson Wilson DO PGY-1, [employer] Pager #[phone] <Itz Zhong - Last Filed: 12/01/17 14:18> Objective - Vital Signs/Intake and Output Vital Signs (last 24 hours): Temp Pulse Resp BP Pulse Ox 97.9 F 63 20 116/60 96 12/01/17 08:10 12/01/17 08:10 12/01/17 08:10 12/01/17 10:10 12/01/17 08:10 Intake and Output: 12/01/17 12/01/17 06:59 18:59 Intake Total 100 Output Total 250 Balance -150 - Medications Medications: Current Medications Albuterol/Ipratropium (Duoneb 3 Mg/0.5 Mg (3 Ml) Ud) 3 ml IH [id number] [facility] Last Admin: 12/01/17 14:10 Dose: 3 ml Albuterol/Ipratropium (Duoneb 3 Mg/0.5 Mg (3 Ml) Ud) 3 ml IH Q2H PRN PRN Reason: Wheezing Amlodipine Besylate (Norvasc) 10 mg PO DAILY [facility] Aspirin (Aspirin) 325 mg PO DAILY [facility] Last Admin: 12/01/17 10:04 Dose: 325 mg Atorvastatin Calcium (Lipitor) 40 mg PO HS [facility] Last Admin: 11/30/17 21:47 Dose: 40 mg Calcium Acetate (Phoslo) 1,334 mg PO TID [facility] Last Admin: 12/01/17 13:25 Dose: 1,334 mg Carvedilol (Coreg) 6.25 mg PO 799,1999 [facility] Last Admin: 12/01/17 10:10 Dose: 6.25 mg Clonidine HCl (Catapres) 0.1 mg PO BID PRN PRN Reason: For SBP>160 & OR diastolic>100 Collagenase (Santyl) 0 gm TOP DAILY [facility] Last Admin: 12/01/17 10:06 Dose: 1 applic Donepezil HCl (Aricept) 10 mg PO HS [facility] Last Admin: 11/30/17 21:47 Dose: 10 mg Doxazosin Mesylate (Cardura) 2 mg PO BID [facility] Last Admin: 12/01/17 10:10 Dose: 2 mg Gabapentin (Neurontin) 100 mg PO HS [facility] PRN Reason: Protocol Last Admin: 11/30/17 21:47 Dose: 100 mg Heparin Sodium (Porcine) (Heparin) 5,000 units SC Q12 [facility] PRN Reason: Protocol Last Admin: 12/01/17 10:09 Dose: 5,000 units Hydralazine HCl (Apresoline) 100 mg PO BID [facility] Last Admin: 12/01/17 10:04 Dose: Not Given Meropenem 250 mg/ Sodium (Chloride) 100 mls @ 100 mls/hr IVPB Q12H [facility] PRN Reason: Protocol Stop: 12/04/17 22:01 Last Admin: 12/01/17 10:07 Dose: 100 mls/hr Insulin Detemir (Levemir) 5 unit SC ACBHS [facility] Last Admin: 12/01/17 07:08 Dose: 5 units Insulin Human Regular (Humulin R Low) 0 units SC ACHS [facility] PRN Reason: Protocol Last Admin: 12/01/17 08:04 Dose: Not Given Lactobacillus Acidophilus (Bacid Acidophilus) 1 cap PO BID [facility] Last Admin: 12/01/17 10:11 Dose: 1 cap Losartan Potassium (Cozaar) 100 mg PO DAILY [facility] Last Admin: 12/01/17 10:14 Dose: 100 mg Memantine (Namenda) 5 mg PO DAILY [facility] Last Admin: 12/01/17 10:07 Dose: 5 mg Jqqmz-3-Ktho Ethyl Esters (Lovaza) 1 gm PO BID [facility] Last Admin: 12/01/17 10:07 Dose: 1 gm Pantoprazole Sodium (Protonix Ec Tab) 40 mg PO DAILY [facility] Last Admin: 12/01/17 10:05 Dose: 40 mg Tamsulosin HCl (Flomax) 0.4 mg PO DAILY [facility] Last Admin: 12/01/17 10:09 Dose: 0.4 mg - Labs Labs: 11/30/17 06:00 11/30/17 06:00 PT 12.5 SECONDS (9.4-12.5) 11/25/17 08:15 INR 1.09 (0.93-1.08) H 11/25/17 08:15 APTT 35.1 Seconds (25.1-36.5) 11/25/17 08:15 Attending/Attestation - Attestation I have personally seen and examined this patient.: Yes I have fully participated in the care of the patient.: Yes I have reviewed all pertinent clinical information, including history, physical exam and plan: Yes Notes (Text): 12/01/17 14:18 Medical record note made by the resident after discussion with my direction and input after the patient was personally seen and examined by me. I have reviewed the chart and agree that the record accurately reflects by personal performance of the history, physical exam, data review, and medical decision-making, in the course for the patient. I have also personally directed the plan of care.
--- NOTE | 2017-12-01 14:00 | PN ---
DATE: 12/01/2017 SUBJECTIVE: The patient is in bed, in no acute distress, nontoxic. He was seen earlier this morning in room 367, bed 1. No fevers and chills. PHYSICAL EXAMINATION: VITAL SIGNS: Temperature is 98, blood pressure is 116/60, respiratory rate of 20, and heart rate of 63. HEENT: Unremarkable. NECK: Supple. LUNGS: Decreased breath sounds. HEART: Normal S1, S2. ABDOMEN: Soft, nontender. LABORATORY EXAMINATION: Reveals a white count of 6, hemoglobin of 9, hematocrit of 29, and platelets of 172. The chemistries are BUN of 40, creatinine of 7.5. Microbiology reveals the blood cultures had no growth. ASSESSMENT AND PLAN: A 77-year-old male with severe sepsis due to left foot cellulitis and left fifth toe gangrene; also history of severe sepsis with healthcare-associated pneumonia; esophagitis; end-stage renal disease, on hemodialysis; diabetes mellitus; morbid obesity with a body mass index of 41; dyslipidemia; chronic obstructive pulmonary disease; cataract; chronic pain; on intermittent vancomycin day #7 of antibiotics and cultures were negative. Bone scan is reported to be negative for osteomyelitis. Dr. Gleason's note is reviewed from today and probable necrotic tissue probe to bone with clinical diagnosis of osteomyelitis and recommend 4 to 6 weeks of antibiotics because of clinical diagnosis of osteomyelitis. We will follow with you. Long Lance MD
--- NOTE | 2017-12-01 18:17 | PN ---
DATE: 12/01/2017 SUBJECTIVE: The patient is seen lying in bed. He is awake, he is alert, he is comfortable. He denies any pain. He denies any shortness of breath. PHYSICAL EXAMINATION: GENERAL: Elderly male lying in bed. VITAL SIGNS: Blood pressure 116/60, heart rate 63, respiratory rate 20, and temperature 97.9. HEENT: Normocephalic, atraumatic. NECK: Supple, no JVD. LUNGS: Bilateral equal air entry, bilateral equal expansion. CARDIAC: S1 and S2, regular rate and rhythm, no murmur, no rub. ABDOMEN: Obese, distended, soft, nontender, bowel sounds present. EXTREMITIES: No lower extremity edema. INTAKE AND OUTPUT: 100/250 LABORATORY DATA WBC 6, hemoglobin 9.9, hematocrit 32, and platelets 172. No new chemistry. MEDICATIONS: List reviewed including hydralazine, Aricept, Cardura, Catapres, Coreg, and Cozaar. ASSESSMENT: 1. Status post bradycardia/pauses, pacemaker placement. 2. Cellulitis of the lower extremities. 3. Tlj-nsrdugn-[id number] diabetes mellitus. 4. Hypertension. 5. End-stage renal disease. 6. Anemia of chronic kidney disease. PLAN: 1. Blood pressure is running low, we will discontinue Cardura. 2. Continue Cozaar. 3. Continue Coreg. 4. Monitor fingerstick. 5. Discharge planning. Yadira Fox MD
[2017-12-02] MEDS: Albuterol-Ipratrop 3 mg / 0.5 (3 ml) UD IH SCH ×4 (01:06→20:35)
[2017-12-02 08:02] VITALS: RESP 20
[2017-12-02] MEDS: Insulin Reg-LOW-Coverage SC SCH ×4 (08:06→22:25)
--- NOTE | 2017-12-02 08:20 | CP.PCM.PN ---
Subjective - Date & Time of Evaluation Date of Evaluation: 12/02/17 Time of Evaluation: 08:18 - Subjective Subjective: Podiatry Progress Note for Dr. Maher 77 yo male seen and evaluated at bedside for left superficial ulcerations on the dorsal aspect of the digits 1,2,4 and ulceration to left 5th digit. He is s /p 3 days for debridement of left 5th digit. He is resting comfortably and denies any acute overnight events. He denies any pain today, yet does experience pain when anything rubs against his left foot. Denies any other pedal complaints at this time. Denies N/V/F/SOB/CP/C. Objective - Vital Signs/Intake and Output Vital Signs (last 24 hours): Temp Pulse Resp BP Pulse Ox 98.4 F 69 20 146/64 95 12/02/17 08:01 12/02/17 08:01 12/02/17 08:01 12/02/17 08:01 12/02/17 08:01 Intake and Output: 12/02/17 12/02/17 06:59 18:59 Intake Total 480 Output Total 250 Balance 230 - Medications Medications: Current Medications Albuterol/Ipratropium (Duoneb 3 Mg/0.5 Mg (3 Ml) Ud) 3 ml IH [id number] [facility] Last Admin: 12/02/17 07:49 Dose: 3 ml Albuterol/Ipratropium (Duoneb 3 Mg/0.5 Mg (3 Ml) Ud) 3 ml IH Q2H PRN PRN Reason: Wheezing Amlodipine Besylate (Norvasc) 10 mg PO DAILY [facility] Aspirin (Aspirin) 325 mg PO DAILY [facility] Last Admin: 12/01/17 10:04 Dose: 325 mg Atorvastatin Calcium (Lipitor) 40 mg PO HS [facility] Last Admin: 12/01/17 21:36 Dose: 40 mg Calcium Acetate (Phoslo) 1,334 mg PO TID [facility] Last Admin: 12/01/17 17:59 Dose: 1,334 mg Carvedilol (Coreg) 6.25 mg PO 799,1999 [facility] Last Admin: 12/01/17 21:36 Dose: 6.25 mg Clonidine HCl (Catapres) 0.1 mg PO BID PRN PRN Reason: For SBP>160 & OR diastolic>100 Collagenase (Santyl) 0 gm TOP DAILY [facility] Last Admin: 12/01/17 10:06 Dose: 1 applic Donepezil HCl (Aricept) 10 mg PO HS [facility] Last Admin: 12/01/17 21:36 Dose: 10 mg Gabapentin (Neurontin) 100 mg PO HS [facility] PRN Reason: Protocol Last Admin: 12/01/17 21:36 Dose: 100 mg Heparin Sodium (Porcine) (Heparin) 5,000 units SC Q12 [facility] PRN Reason: Protocol Last Admin: 12/01/17 21:37 Dose: 5,000 units Hydralazine HCl (Apresoline) 100 mg PO BID [facility] Last Admin: 12/01/17 17:58 Dose: 100 mg Meropenem 250 mg/ Sodium (Chloride) 100 mls @ 100 mls/hr IVPB Q12H [facility] PRN Reason: Protocol Stop: 12/04/17 22:01 Last Admin: 12/01/17 21:37 Dose: 100 mls/hr Insulin Detemir (Levemir) 5 unit SC ACBHS [facility] Last Admin: 12/01/17 21:48 Dose: 5 units Insulin Human Regular (Humulin R Low) 0 units SC ACHS [facility] PRN Reason: Protocol Last Admin: 12/01/17 22:00 Dose: Not Given Lactobacillus Acidophilus (Bacid Acidophilus) 1 cap PO BID [facility] Last Admin: 12/01/17 17:58 Dose: 1 cap Losartan Potassium (Cozaar) 100 mg PO DAILY [facility] Last Admin: 12/01/17 10:14 Dose: 100 mg Memantine (Namenda) 5 mg PO DAILY [facility] Last Admin: 12/01/17 10:07 Dose: 5 mg [id number] Ethyl Esters (Lovaza) 1 gm PO BID [facility] Last Admin: 12/01/17 17:59 Dose: 1 gm Pantoprazole Sodium (Protonix Ec Tab) 40 mg PO DAILY [facility] Last Admin: 12/01/17 10:05 Dose: 40 mg Tamsulosin HCl (Flomax) 0.4 mg PO DAILY [facility] Last Admin: 12/01/17 10:09 Dose: 0.4 mg - Labs Labs: 11/30/17 06:00 11/30/17 06:00 PT 12.5 SECONDS (9.4-12.5) 11/25/17 08:15 INR 1.09 (0.93-1.08) H 11/25/17 08:15 APTT 35.1 Seconds (25.1-36.5) 11/25/17 08:15 - Constitutional Appears: Well, Non-toxic, No Acute Distress - Head Exam Head Exam: ATRAUMATIC, NORMOCEPHALIC - Extremities Exam Additional comments: Left lower extremity focused exam: VASC: DP/PT pulses 1/4, Capillary refill time > 3 sec, skin temperature warm to cool, mild brawny edema noted on the dorsum of the left foot ORTHO: Pain upon palpation of the dorsal apsect of left digits. Pain upon palpation greatest to the left 5th digit. 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 MMT 5 /5 to left. NEURO: Gross and protective sensation diminished DERM: Ulceration on the dorsum of the left 5th digit measuring approximately 2 cm x 3 cm x .2 with fibrotic and granular base, mild serous drainage, localized erythema noted at the dorsum of the left forefoot, probe to bone of 5th digit, no malodor, no tunneling or tracking, no purulent drainage. Additional superficial ulcerations noted to dorsum of digits 1, 2,and 4 with fibrotic base ; negative for drainage, malodor, tunneling, tracking, undermining, erythema or any clinical signs of infection. Right foot ulceration noted to the dorsum of the 5th digit measuring approximately .5 cm x .5cm x .1, superficial, wound base granular, no clinical signs of infection - Neurological Exam Neurological Exam: Alert, Awake, Oriented x3 - Psychiatric Exam Psychiatric exam: Normal Affect, Normal Mood Assessment and Plan - Assessment and Plan (Free Text) Assessment: 77 yo male seen and evaluated for left superficial ulcerations on the dorsal aspect of the digits 1,2,4 and ulceration to left 5th digit. Plan: Patient seen and evaluated at bedside Discussed with Dr. Maher Labs, vitals and charts reviewed; afebrile (12/02/17), absent leukocytosis () X-rays of left foot reviewed; Periosteal reaction with cortical break at the proximal phalanx of the left 5th digit, no subcutaneous emphysema noted Arterial duplex/BEATRIZ; Right 1.12, Left 1.2 Nuclear Bone Scan reviewed: negative for acute osseous process (12/01/17) Wound culture taken of left 5th digit- negative for MRSA Left foot ulcerations cleansed with saline solution Dressed left 5th digit with santyl, xeroform, DSD, and Kerlix. Patient may WBAT in surgical shoe Patient to continue with physical therapy Patient to wear multipodus boots at all times while in bed Podiatry to follow patient while in-house
--- NOTE | 2017-12-02 08:40 | CP.PCM.PN ---
Subjective - Date & Time of Evaluation Date of Evaluation: 12/02/17 Time of Evaluation: 06:35 - Subjective Subjective: lying in bed,awake, denies chest pain, denies shortness of breath,wanted to go home Reason for consultation and follow up: Status post pacemaker for multiple pauses , history of ESRD, hypertension, peripheral artery disease,hyperlipidemia. Seen and examined by me and Dr. Mckeon Objective - Vital Signs/Intake and Output Vital Signs (last 24 hours): Temp Pulse Resp BP Pulse Ox 98.4 F 69 20 146/64 95 12/02/17 08:01 12/02/17 08:01 12/02/17 08:01 12/02/17 08:01 12/02/17 08:01 Intake and Output: 12/02/17 12/02/17 06:59 18:59 Intake Total 480 Output Total 250 Balance 230 - Medications Medications: Current Medications Albuterol/Ipratropium (Duoneb 3 Mg/0.5 Mg (3 Ml) Ud) 3 ml IH [id number] [facility] Last Admin: 12/02/17 07:49 Dose: 3 ml Albuterol/Ipratropium (Duoneb 3 Mg/0.5 Mg (3 Ml) Ud) 3 ml IH Q2H PRN PRN Reason: Wheezing Amlodipine Besylate (Norvasc) 10 mg PO DAILY [facility] Aspirin (Aspirin) 325 mg PO DAILY [facility] Last Admin: 12/01/17 10:04 Dose: 325 mg Atorvastatin Calcium (Lipitor) 40 mg PO HS [facility] Last Admin: 12/01/17 21:36 Dose: 40 mg Calcium Acetate (Phoslo) 1,334 mg PO TID [facility] Last Admin: 12/01/17 17:59 Dose: 1,334 mg Carvedilol (Coreg) 6.25 mg PO 0800,1999 [facility] Last Admin: 12/01/17 21:36 Dose: 6.25 mg Clonidine HCl (Catapres) 0.1 mg PO BID PRN PRN Reason: For SBP>160 & OR diastolic>100 Collagenase (Santyl) 0 gm TOP DAILY [facility] Last Admin: 12/01/17 10:06 Dose: 1 applic Donepezil HCl (Aricept) 10 mg PO HS [facility] Last Admin: 12/01/17 21:36 Dose: 10 mg Gabapentin (Neurontin) 100 mg PO [facility] PRN Reason: Protocol Last Admin: 12/01/17 21:36 Dose: 100 mg Heparin Sodium (Porcine) (Heparin) 5,000 units SC Q12 [facility] PRN Reason: Protocol Last Admin: 12/01/17 21:37 Dose: 5,000 units Hydralazine HCl (Apresoline) 100 mg PO BID [facility] Last Admin: 12/01/17 17:58 Dose: 100 mg Meropenem 250 mg/ Sodium (Chloride) 100 mls @ 100 mls/hr IVPB Q12H [facility] PRN Reason: Protocol Stop: 12/04/17 22:01 Last Admin: 12/01/17 21:37 Dose: 100 mls/hr Insulin Detemir (Levemir) 5 unit SC ACBHS [facility] Last Admin: 12/01/17 21:48 Dose: 5 units Insulin Human Regular (Humulin R Low) 0 units SC ACHS [facility] PRN Reason: Protocol Last Admin: 12/01/17 22:00 Dose: Not Given Lactobacillus Acidophilus (Bacid Acidophilus) 1 cap PO BID [facility] Last Admin: 12/01/17 17:58 Dose: 1 cap Losartan Potassium (Cozaar) 100 mg PO DAILY [facility] Last Admin: 12/01/17 10:14 Dose: 100 mg Memantine (Namenda) 5 mg PO DAILY [facility] Last Admin: 12/01/17 10:07 Dose: 5 mg [id number]-[id number] Ethyl Esters (Lovaza) 1 gm PO BID [facility] Last Admin: 12/01/17 17:59 Dose: 1 gm Pantoprazole Sodium (Protonix Ec Tab) 40 mg PO DAILY [facility] Last Admin: 12/01/17 10:05 Dose: 40 mg Tamsulosin HCl (Flomax) 0.4 mg PO DAILY [facility] Last Admin: 12/01/17 10:09 Dose: 0.4 mg - Labs Labs: 11/30/17 06:00 11/30/17 06:00 PT 12.5 SECONDS (9.4-12.5) 11/25/17 08:15 INR 1.09 (0.93-1.08) H 11/25/17 08:15 APTT 35.1 Seconds (25.1-36.5) 11/25/17 08:15 - Constitutional Appears: No Acute Distress - Eye Exam Eye Exam: Normal appearance - ENT Exam ENT Exam: Mucous Membranes Moist - Respiratory Exam Respiratory Exam: Decreased Breath Sounds, Clear to Ausculation Bilateral, NORMAL BREATHING PATTERN - Cardiovascular Exam Cardiovascular Exam: +S1, +S2 Additional comments: PPM - GI/Abdominal Exam GI & Abdominal Exam: Soft, Normal Bowel Sounds - Exam Additional comments: hemodialysis three times a week - Extremities Exam Extremities Exam: Normal Capillary Refill Additional comments: Left AV shunt- positive bruit/thrill - Neurological Exam Neurological Exam: Alert, Awake, Oriented x3 - Psychiatric Exam Psychiatric exam: Normal Affect - Skin Skin Exam: Dry, Warm Assessment and Plan - Assessment and Plan (Free Text) Assessment: 77 year old male who came in to the ER due to generalized fatigue. History of hypertension, ESRD, on hemodialysis MWF. left AV shunt. 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 Cardiac consult was called due to multiple pauses on EKG. PPM was inserted. He was in ICU and now transferred to telemetry. Plan: Wanted to go home Cardiac status stable Stable heart rate and blood pressure On ASA 325 mg daily,Norvasc 10 mg daily,Coreg 6.25 mg BID, Catapres 0.1 mg BID PRN, Cardura 2 mg BID, Heparin 5000 units SQ, Hydralazine 100mg BID, Cozaar 100 mg daily,Flomax 0.4 mg daily. On IV antibiotics per ID (leg cellulitis) On hemodialysis (MWF) Continue current treatment Continue current medications Will follow up Plan and treatment discussed with Dr. Mckeon
[2017-12-02] MEDS ORDERED: Vancomycin 1gm in NS 250ml 1 GM/250 ML BAG IVPB STA (09:26)
[2017-12-02] MEDS: Lactobacillus Acidophilus 500 MU Cap PO SCH ×2 (10:03→17:33)
[2017-12-02] MEDS: Omega-3-Acid Ethyl Esters 1 GM Cap PO SCH ×2 (10:07→17:34)
[2017-12-02] MEDS: Pantoprazole 40 mg EC Tab PO SCH (10:10)
[2017-12-02] MEDS: Collagenase 250 Units/gm Ointment(30 gm) TOP SCH (10:11)
[2017-12-02] MEDS: Insulin Detemir 100 units/ml Vial (Levemir) SC SCH ×2 (11:07→22:14)
--- NOTE | 2017-12-02 11:33 | PN ---
DATE: 12/02/2017 SUBJECTIVE: The patient is in bed, in no acute distress, nontoxic. PHYSICAL EXAMINATION VITAL SIGNS: Temperature is 98, blood pressure is 120/70, respiratory rate of 16. HEENT: Unremarkable. NECK: Supple. LUNGS: Have decreased breath sounds. HEART: Normal S1 and S2. ABDOMEN: Soft. LABORATORY DATA: Reveals a white count of 6, hemoglobin of 9. Chemistries revealed a creatinine of 7.5 and microbiology reveals the left foot culture is a gram-positive cocci, further identification and sensitivity is pending, it is a light growth. Review of orders reveals the patient to be on meropenem. The patient is also on intermittent vancomycin. ASSESSMENT AND PLAN: A 77-year-old male with severe sepsis due to left foot cellulitis, left fifth toe gangrene, also with a history of severe sepsis and healthcare-associated pneumonia, esophagitis, end-stage renal disease on hemodialysis and the patient with diabetes mellitus and morbid obesity with a body mass index of 41 and dyslipidemia, chronic obstructive lung disease and cataract. We will give another dose of vancomycin, today is day #8 of vancomycin and meropenem since the bone scan is negative; however, Dr. Gleason's note that this is a necrotic tissue probing to bone by definition of clinical diagnosis of osteomyelitis. We will need 4-6 weeks of antibiotics and weekly CBC, SMA-18, sed rate, C-reactive protein and vancomycin random levels. Awaiting for the identification of gram-positive cocci from the left foot. Long Lance MD
--- NOTE | 2017-12-02 11:49 | CP.PCM.PN ---
<Ez Nuñez - Last Filed: 12/02/17 11:44> Subjective - Date & Time of Evaluation Date of Evaluation: 12/02/17 Time of Evaluation: 08:00 - Subjective Subjective: Ez Nuñez PGY-1 Progress Note for Hospitalist Service Patient seen and evaluated at bedside. Patient reported no acute events overnight. Slept well. Denies CP, palpitations, shortness of breath, abdominal pain, and foot pain at this time. Last BM yesterday. Objective - Vital Signs/Intake and Output Vital Signs (last 24 hours): Temp Pulse Resp BP Pulse Ox 98.4 F 69 20 146/64 95 12/02/17 08:01 12/02/17 08:01 12/02/17 08:01 12/02/17 10:01 12/02/17 08:01 Intake and Output: 12/02/17 12/02/17 06:59 18:59 Intake Total 480 Output Total 250 Balance 230 - Medications Medications: Current Medications Albuterol/Ipratropium (Duoneb 3 Mg/0.5 Mg (3 Ml) Ud) 3 ml IH [id number] [facility] Last Admin: 12/02/17 07:49 Dose: 3 ml Albuterol/Ipratropium (Duoneb 3 Mg/0.5 Mg (3 Ml) Ud) 3 ml IH Q2H PRN PRN Reason: Wheezing Amlodipine Besylate (Norvasc) 10 mg PO DAILY [facility] Aspirin (Aspirin) 325 mg PO DAILY [facility] Last Admin: 12/02/17 10:03 Dose: 325 mg Atorvastatin Calcium (Lipitor) 40 mg PO HS [facility] Last Admin: 12/01/17 21:36 Dose: 40 mg Calcium Acetate (Phoslo) 1,334 mg PO TID [facility] Last Admin: 12/02/17 10:09 Dose: 1,334 mg Carvedilol (Coreg) 6.25 mg PO 0800,1999 [facility] Last Admin: 12/02/17 08:04 Dose: 6.25 mg Clonidine HCl (Catapres) 0.1 mg PO BID PRN PRN Reason: For SBP>160 & OR diastolic>100 Collagenase (Santyl) 0 gm TOP DAILY [facility] Last Admin: 12/02/17 10:11 Dose: 1 applic Donepezil HCl (Aricept) 10 mg PO [facility] Last Admin: 12/01/17 21:36 Dose: 10 mg Gabapentin (Neurontin) 100 mg PO HS [facility] PRN Reason: Protocol Last Admin: 12/01/17 21:36 Dose: 100 mg Heparin Sodium (Porcine) (Heparin) 5,000 units SC Q12 [facility] PRN Reason: Protocol Last Admin: 12/02/17 10:05 Dose: 5,000 units Hydralazine HCl (Apresoline) 100 mg PO BID [facility] Last Admin: 12/02/17 10:01 Dose: 100 mg Meropenem 250 mg/ Sodium (Chloride) 100 mls @ 100 mls/hr IVPB Q12H [facility] PRN Reason: Protocol Stop: 12/04/17 22:01 Last Admin: 12/02/17 10:08 Dose: 100 mls/hr Insulin Detemir (Levemir) 5 unit SC ACBHS [facility] Last Admin: 12/02/17 11:07 Dose: 5 units Insulin Human Regular (Humulin R Low) 0 units SC ACHS [facility] PRN Reason: Protocol Last Admin: 12/02/17 08:06 Dose: Not Given Lactobacillus Acidophilus (Bacid Acidophilus) 1 cap PO BID [facility] Last Admin: 12/02/17 10:03 Dose: 1 cap Losartan Potassium (Cozaar) 100 mg PO DAILY [facility] Last Admin: 12/02/17 10:05 Dose: 100 mg Memantine (Namenda) 5 mg PO DAILY [facility] Last Admin: 12/02/17 10:08 Dose: 5 mg [id number] Ethyl Esters (Lovaza) 1 gm PO BID [facility] Last Admin: 12/02/17 10:07 Dose: 1 gm Pantoprazole Sodium (Protonix Ec Tab) 40 mg PO DAILY [facility] Last Admin: 12/02/17 10:10 Dose: 40 mg Tamsulosin HCl (Flomax) 0.4 mg PO DAILY [facility] Last Admin: 12/02/17 10:05 Dose: 0.4 mg - Labs Labs: 11/30/17 06:00 11/30/17 06:00 PT 12.5 SECONDS (9.4-12.5) 11/25/17 08:15 INR 1.09 (0.93-1.08) H 11/25/17 08:15 APTT 35.1 Seconds (25.1-36.5) 11/25/17 08:15 - Constitutional Appears: Non-toxic, No Acute Distress - Head Exam Head Exam: ATRAUMATIC, NORMAL INSPECTION, NORMOCEPHALIC - Eye Exam Eye Exam: EOMI, Normal appearance, PERRL - ENT Exam ENT Exam: Mucous Membranes Moist, Normal Oropharynx - Neck Exam Neck Exam: Full ROM, Normal Inspection - Respiratory Exam Respiratory Exam: Clear to Ausculation Bilateral, NORMAL BREATHING PATTERN - Cardiovascular Exam Cardiovascular Exam: REGULAR RHYTHM, +S1, +S2 A[address]. - GI/Abdominal Exam GI & Abdominal Exam: Soft, Normal Bowel Sounds - Extremities Exam Extremities Exam: Normal Capillary Refill Additional comments: L foot wrapped in gauze dressing. No discharge appreciated through dressing - Back Exam Back Exam: NORMAL INSPECTION - Neurological Exam Neurological Exam: Alert, Awake, CN II-XII Intact - Psychiatric Exam Psychiatric exam: Normal Affect, Normal Mood - Skin Skin Exam: Dry, Intact, Normal Color, Warm Assessment and Plan - Assessment and Plan (Free Text) Assessment: Assessment: 77 year old male with pertinent medical history of recent osteomyelitis, ESRD on HD MWF, IDDM, HLD, Dementia, BPH, HTN, GERD who presented with generalized fatigue and subjective fevers. Patient was found to be septic with leukocytosis and fever of 100.9 on arrival. Patient was admitted for sepsis work up, ruling out foot vs. lung vs dialysis AV fistula as source of infection. Patient subsequently transferred to ICU after multiple episodes of several second pauses of asystole overnight. Single ventricle pacemaker placement without issue, followed by HD. Patient transferred from ICU and currently on med-surg floors. Plan: SIRS of Unknown Source, likely 2/2 Osteomyelitis vs PNA vs Dialysis AV Fistula 2/4 Tachypnea, Febrile on admission, unknown source. VSS CXR significant for reticular nodular opacities in the lower lobes - ? atypical pneumonitis vs interstitial edema. Mild pulmonary venous congestion. Repeat CXR showed Right basilar opacity, possible PNA, and possible small pleural effusions at both costophrenic angles ID Consult - Dr. Lance wound culture positive for gram + cocci (prelim) f/u final read blood culture 2/2 neg day 8 Currently on Merrem renally dosed 250 mg BID. Vanc 1 gm given this AM. Awaiting ID recs regarding continuing merem and/or vanc ID Recommends 4-6 weeks of ABx with weekly CBC, CMP, sed rate, CRP and vanc levels. F/u results in AM Asystole, possible 2/2 to beta june use vs heart block - resolved Patient had multiple episodes of asystole, lasting as long as 7 seconds on . Pacemaker placed 11/26 without issue. VSS. Carvedilol at 6.25, and continue hydralazine 100 prn per cardio recs Cardiology consult - Dr. Whalen Left foot infected ulcers Podiatry consulted (Dr. Espino) Patient getting vanc after dialysis MWF S/p debridement of Necrotic ulceration of 5th digit POD#4 - will f/u podiatry recs Bone scan negative for O/M Arterial doppler studies- posterior tibial artery, anterior tibial artery, and perforating artery at ankle level is strongly monophasic Arterial duplex studies show bilateral tibial disease. Pulse palpable on posterior tibial and dorsalis pedis on Left foot. ESRD on HD, MWF Continue with Lars Fox on consult Continue coreg 12.[address] Fox Hx Diabetes Cont Accuchecks ACHS RISS low, cont Home lantus 10 U HS Consistent carb/renal dialysis/HH diet f/u a1c Cont. gabapentin 100mg HS for neuropathy Hx BPH Cont. flomax 0.4mg daily Hx HLD Continue lovaza, home med atorvastatin 40mg HS, home ASA 325 f/u lipid panel Dementia Cont. memantine 5mg daily Cont. donepezil 10mg HS Prophylaxis Cont. protonix 40mg PO daily Cont. heparin 5000u sc q12h Disposition: Not candidate for TCU. F/u case management regarding [facility] vs home placement. Appreciate PT recs since no longer candidate for TCU Patient will f/u with Dr. Wilson in the pacemaker clinic upon discharge. Patient seen, case reviewed and plan discussed with Dr. Zhong. Ez Nuñez, PGY-1 <Itz Zhong - Last Filed: 12/02/17 14:38> Objective - Vital Signs/Intake and Output Vital Signs (last 24 hours): Temp Pulse Resp BP Pulse Ox 98.4 F 69 20 146/64 95 12/02/17 08:01 12/02/17 08:01 12/02/17 08:01 12/02/17 10:01 12/02/17 08:01 Intake and Output: 12/02/17 12/02/17 06:59 18:59 Intake Total 480 Output Total 250 Balance 230 - Medications Medications: Current Medications Albuterol/Ipratropium (Duoneb 3 Mg/0.5 Mg (3 Ml) Ud) 3 ml IH [id number] [facility] Last Admin: 12/02/17 13:20 Dose: 3 ml Albuterol/Ipratropium (Duoneb 3 Mg/0.5 Mg (3 Ml) Ud) 3 ml IH Q2H PRN PRN Reason: Wheezing Amlodipine Besylate (Norvasc) 10 mg PO DAILY [facility] Aspirin (Aspirin) 325 mg PO DAILY [facility] Last Admin: 12/02/17 10:03 Dose: 325 mg Atorvastatin Calcium (Lipitor) 40 mg PO HS [facility] Last Admin: 12/01/17 21:36 Dose: 40 mg Calcium Acetate (Phoslo) 1,334 mg PO TID [facility] Last Admin: 12/02/17 14:17 Dose: 1,334 mg Carvedilol (Coreg) 6.25 mg PO 799,1999 [facility] Last Admin: 12/02/17 08:04 Dose: 6.25 mg Clonidine HCl (Catapres) 0.1 mg PO BID PRN PRN Reason: For SBP>160 & OR diastolic>100 Collagenase (Santyl) 0 gm TOP DAILY [facility] Last Admin: 12/02/17 10:11 Dose: 1 applic Donepezil HCl (Aricept) 10 mg PO HS [facility] Last Admin: 12/01/17 21:36 Dose: 10 mg Gabapentin (Neurontin) 100 mg PO HS [facility] PRN Reason: Protocol Last Admin: 12/01/17 21:36 Dose: 100 mg Heparin Sodium (Porcine) (Heparin) 5,000 units SC Q12 [facility] PRN Reason: Protocol Last Admin: 12/02/17 10:05 Dose: 5,000 units Hydralazine HCl (Apresoline) 100 mg PO BID [facility] Last Admin: 12/02/17 10:01 Dose: 100 mg Meropenem 250 mg/ Sodium (Chloride) 100 mls @ 100 mls/hr IVPB Q12H [facility] PRN Reason: Protocol Stop: 12/04/17 22:01 Last Admin: 12/02/17 10:08 Dose: 100 mls/hr Insulin Detemir (Levemir) 5 unit SC ACBHS [facility] Last Admin: 12/02/17 11:07 Dose: 5 units Insulin Human Regular (Humulin R Low) 0 units SC ACHS [facility] PRN Reason: Protocol Last Admin: 12/02/17 08:06 Dose: Not Given Lactobacillus Acidophilus (Bacid Acidophilus) 1 cap PO BID [facility] Last Admin: 12/02/17 10:03 Dose: 1 cap Losartan Potassium (Cozaar) 100 mg PO DAILY [facility] Last Admin: 12/02/17 10:05 Dose: 100 mg Memantine (Namenda) 5 mg PO DAILY [facility] Last Admin: 12/02/17 10:08 Dose: 5 mg [id number]-6-[id number] Ethyl Esters (Lovaza) 1 gm PO BID [facility] Last Admin: 12/02/17 10:07 Dose: 1 gm Pantoprazole Sodium (Protonix Ec Tab) 40 mg PO DAILY [facility] Last Admin: 12/02/17 10:10 Dose: 40 mg Tamsulosin HCl (Flomax) 0.4 mg PO DAILY [facility] Last Admin: 12/02/17 10:05 Dose: 0.4 mg - Labs Labs: 11/30/17 06:00 11/30/17 06:00 PT 12.5 SECONDS (9.4-12.5) 11/25/17 08:15 INR 1.09 (0.93-1.08) H 11/25/17 08:15 APTT 35.1 Seconds (25.1-36.5) 11/25/17 08:15 Attending/Attestation - Attestation I have personally seen and examined this patient.: Yes I have fully participated in the care of the patient.: Yes I have reviewed all pertinent clinical information, including history, physical exam and plan: Yes Notes (Text): 12/02/17 14:36 Medical record note made by the resident after discussion with my direction and input after the patient was personally seen and examined by me. I have reviewed the chart and agree that the record accurately reflects by personal performance of the history, physical exam, data review, and medical decision-making, in the course for the patient. I have also personally directed the plan of care. 77 year old male with past medical history of ESRD on HD , hypertension, diabetes and recent osteomyelitis on vancomycin during dialysis was admitted with weakness , fever 100.9 and leukocytosis 15.3. CXR shows reticular nodular opacities in the lower lobes which could represent atypical pneumonitis or interstitial edema and mild pulmonary venous congestion. Foot x-ray shows s/ p surgical amputation of the 3rd toe with no radiographic evidence of osteomyelitis. He was started on iv antibiotics. He was transferred to ICU due to bradycardia ,prolonged sinus pauses and is SP pacemaker. Patient bone scan is negative for osteomyelitis .Patient underwent debridement of wound on 11/29/17, on IV antibiotics as per ID.Patient is afebrile, Wound cultures are growing gram positive cocci. Patient was evaluated by Physical therapy and has recommended TCU but patient has been refused by TCU, will consult case management regarding disposition. Prognosis is guarded.
--- NOTE | 2017-12-02 14:24 | PN ---
DATE: 12/02/2017 SUBJECTIVE: The patient is seen lying in bed. He is awake, he is alert, he is comfortable. PHYSICAL EXAMINATION: GENERAL: Obese elderly male, lying in bed. VITAL SIGNS: Blood pressure 146/64, heart rate 69, respiratory rate 18, and temperature 98.4. HEENT: Normocephalic, atraumatic, positive pallor. NECK: Supple, no JVD. LUNGS: Bilateral equal air entry, bilateral equal expansion. CARDIAC: S1 and S2, regular rate and rhythm, no murmur, no rub. ABDOMEN: Obese, distended, soft, nontender, bowel sounds present. EXTREMITIES: No lower extremity edema. INTAKE AND OUTPUT: Not charted. LABORATORY DATA: WBC 6, hemoglobin 9.9, hematocrit 32, and platelets 172. Sodium 139, potassium 4.2, chloride 96, CO2 of 30. BUN 40, creatinine 7.5. Glucose 182. MEDICATIONS: List reviewed. ASSESSMENT: 1. Status post bradycardia/pauses, permanent pacemaker placement. 2. Lower extremity cellulitis. 3. Multilobar pneumonia. 4. [id number] diabetes mellitus. 5. Hypertension. 6. End-stage renal disease. PLAN: 1. Continue antibiotics as per ID recommendations. 2. Dialysis tomorrow. 3. Continue fingerstick monitoring and insulin coverage. 4. Continue current antihypertensives. 5. Discharge . Yadira Fox MD
[2017-12-03] MEDS: Albuterol-Ipratrop 3 mg / 0.5 (3 ml) UD IH SCH ×4 (02:00→19:57)
[2017-12-03 06:24] LABS: BASO # 0.01 K/mm3 (0.0-2.0); BASO % 0.2 % (0.0-3.0); EOS # 0.2 (0.0-0.7); EOS % 3.4 % (1.5-5.0); GRAN # 3.8 (1.4-6.5); HEMOGLOBIN 9.3 g/dL (14.0-18.0); LYMPH # 1.5 (1.2-3.4); LYMPH % 25.5 % (22.0-35.0); MEAN CELL VOLUME 89.9 fl (80.0-105.0); MEAN CORPUSCULAR HEMOGLOBIN 27.5 pg (25.0-35.0); MEAN CORPUSCULAR HGB CONC 30.6 g/dl (31.0-37.0); MEAN PLATELET VOLUME 10.7 fl (7.0-11.0); MONO # 0.4 (0.1-0.6); MONO % 6.9 % (1.0-6.0); RBC 3.38 10^6/uL (3.5-6.1); RED CELL DISTRIBUTION WIDTH 16.8 % (11.5-14.5); WHITE BLOOD COUNT 5.9 10^3/ul (4.5-11.0)
--- NOTE | 2017-12-03 07:18 | CP.PCM.PN ---
Subjective - Date & Time of Evaluation Date of Evaluation: 12/03/17 Time of Evaluation: 06:25 - Subjective Subjective: Awake, denies chest pain, denies shortness of breath Reason for consultation and follow up: Status post pacemaker for multiple pauses , history of ESRD, hypertension, peripheral artery disease,hyperlipidemia. Seen and examined by me and Dr. Whalen Objective - Vital Signs/Intake and Output Vital Signs (last 24 hours): Temp Pulse Resp BP Pulse Ox 97.8 F 73 20 147/62 93 L 12/02/17 18:00 12/02/17 20:48 12/02/17 18:00 12/02/17 20:48 12/02/17 18:00 Intake and Output: 12/03/17 12/03/17 06:59 18:59 Intake Total 120 Output Total 850 Balance -730 - Medications Medications: Current Medications Albuterol/Ipratropium (Duoneb 3 Mg/0.5 Mg (3 Ml) Ud) 3 ml IH [id number] [facility] Last Admin: 12/03/17 02:00 Dose: 3 ml Albuterol/Ipratropium (Duoneb 3 Mg/0.5 Mg (3 Ml) Ud) 3 ml IH Q2H PRN PRN Reason: Wheezing Amlodipine Besylate (Norvasc) 10 mg PO DAILY [facility] Aspirin (Aspirin) 325 mg PO DAILY [facility] Last Admin: 12/02/17 10:03 Dose: 325 mg Atorvastatin Calcium (Lipitor) 40 mg PO HS [facility] Last Admin: 12/02/17 22:14 Dose: 40 mg Calcium Acetate (Phoslo) 1,334 mg PO TID [facility] Last Admin: 12/02/17 17:34 Dose: 1,334 mg Carvedilol (Coreg) 6.25 mg PO 799,1999 [facility] Last Admin: 12/02/17 20:48 Dose: 6.25 mg Clonidine HCl (Catapres) 0.1 mg PO BID PRN PRN Reason: For SBP>160 & OR diastolic>100 Collagenase (Santyl) 0 gm TOP DAILY [facility] Last Admin: 12/02/17 10:11 Dose: 1 applic Donepezil HCl (Aricept) 10 mg PO HS [facility] Last Admin: 12/02/17 22:13 Dose: 10 mg Gabapentin (Neurontin) 100 mg PO [facility] PRN Reason: Protocol Last Admin: 12/02/17 22:14 Dose: 100 mg Heparin Sodium (Porcine) (Heparin) 5,000 units SC Q12 [facility] PRN Reason: Protocol Last Admin: 12/02/17 22:14 Dose: 5,000 units Hydralazine HCl (Apresoline) 100 mg PO BID [facility] Last Admin: 12/02/17 17:33 Dose: 100 mg Meropenem 250 mg/ Sodium (Chloride) 100 mls @ 100 mls/hr IVPB Q12H [facility] PRN Reason: Protocol Stop: 12/04/17 22:01 Last Admin: 12/02/17 22:37 Dose: 100 mls/hr Insulin Detemir (Levemir) 5 unit SC ACBHS [facility] Last Admin: 12/02/17 22:14 Dose: 5 units Insulin Human Regular (Humulin R Low) 0 units SC ACHS [facility] PRN Reason: Protocol Last Admin: 12/02/17 22:25 Dose: Not Given Lactobacillus Acidophilus (Bacid Acidophilus) 1 cap PO BID [facility] Last Admin: 12/02/17 17:33 Dose: 1 cap Losartan Potassium (Cozaar) 100 mg PO DAILY [facility] Last Admin: 12/02/17 10:05 Dose: 100 mg Memantine (Namenda) 5 mg PO DAILY [facility] Last Admin: 12/02/17 10:08 Dose: 5 mg Bzxie-5-Rfmq Ethyl Esters (Lovaza) 1 gm PO BID [facility] Last Admin: 12/02/17 17:34 Dose: 1 gm Pantoprazole Sodium (Protonix Ec Tab) 40 mg PO DAILY [facility] Last Admin: 12/02/17 10:10 Dose: 40 mg Tamsulosin HCl (Flomax) 0.4 mg PO DAILY [facility] Last Admin: 12/02/17 10:05 Dose: 0.4 mg - Labs Labs: 11/30/17 06:00 11/30/17 06:00 PT 12.5 SECONDS (9.4-12.5) 11/25/17 08:15 INR 1.09 (0.93-1.08) H 11/25/17 08:15 APTT 35.1 Seconds (25.1-36.5) 11/25/17 08:15 - Constitutional Appears: No Acute Distress - Eye Exam Eye Exam: Normal appearance - Respiratory Exam Respiratory Exam: Decreased Breath Sounds, NORMAL BREATHING PATTERN - Cardiovascular Exam Cardiovascular Exam: +S1, +S2 Additional comments: PPM - GI/Abdominal Exam GI & Abdominal Exam: Soft, Normal Bowel Sounds - Exam Additional comments: hemodialysis 3x a week - Extremities Exam Additional comments: left foot cellulitis left AV shunt +bruit/thrill - Neurological Exam Neurological Exam: Alert, Awake, Oriented x3 - Psychiatric Exam Psychiatric exam: Normal Affect - Skin Skin Exam: Dry, Warm Assessment and Plan - Assessment and Plan (Free Text) Assessment: 77 year old male who came in to the ER due to generalized fatigue. History of hypertension, ESRD, on hemodialysis MWF. left AV shunt. 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 Cardiac consult was called due to multiple pauses on EKG. PPM was inserted. He was in ICU and now transferred to telemetry.On IV antibiotics per ID (leg cellulitis). Plan: Clinically improved from baseline Cardiac status stable Stable heart rate and blood pressure On ASA 325 mg daily,Norvasc 10 mg daily,Coreg 6.25 mg BID, Catapres 0.1 mg BID PRN, Cardura 2 mg BID, Heparin 5000 units SQ, Hydralazine 100mg BID, Cozaar 100 mg daily,Flomax 0.4 mg daily. On IV antibiotics per ID (left foot cellulitis) On hemodialysis (MWF) Continue current treatment Continue current medications Will follow up Plan and treatment discussed with Dr. Whalen
[2017-12-03 07:27] LABS: ALB/GLOB RATIO 1.2 (1.1-1.8); ALBUMIN 3.5 g/dL (3.0-4.8); CALCIUM 8.5 mg/dL (8.4-10.5)
[2017-12-03] MEDS: Insulin Reg-LOW-Coverage SC SCH ×3 (08:34→15:39)
[2017-12-03] MEDS: Insulin Detemir 100 units/ml Vial (Levemir) SC SCH ×2 (09:16→22:02)
[2017-12-03] MEDS: Collagenase 250 Units/gm Ointment(30 gm) TOP SCH (10:23)
[2017-12-03] MEDS: Pantoprazole 40 mg EC Tab PO SCH (10:24)
[2017-12-03] MEDS: Lactobacillus Acidophilus 500 MU Cap PO SCH ×2 (10:46→18:00)
[2017-12-03] MEDS: Omega-3-Acid Ethyl Esters 1 GM Cap PO SCH ×2 (10:47→18:00)
--- NOTE | 2017-12-03 11:12 | CARD ---
APPROVED REPORT Date of service: 11/25/2017 EKG Measurement Heart [id number] <Conclusion> Sinus bradycardia Septal infarct, age undetermined Abnormal ECG
--- NOTE | 2017-12-03 13:02 | CP.PCM.PN ---
<Ez Nuñez - Last Filed: 12/03/17 13:53> Subjective - Date & Time of Evaluation Date of Evaluation: 12/03/17 Time of Evaluation: 08:00 - Subjective Subjective: Ez Nuñez PGY-1 Progress Note for Hospitalist Service Patient seen and evaluated at bedside. No acute complaints overnight. Patient denies chest pain, palpitations, shortness of breath, abdominal pain, and changes in bowel habits. Objective - Vital Signs/Intake and Output Vital Signs (last 24 hours): Temp Pulse Resp BP Pulse Ox 98 F 67 20 172/68 H 93 L 12/03/17 08:03 12/03/17 09:18 12/03/17 08:03 12/03/17 09:18 12/03/17 08:03 Intake and Output: 12/03/17 12/03/17 06:59 18:59 Intake Total 120 Output Total 850 Balance -730 - Medications Medications: Current Medications Albuterol/Ipratropium (Duoneb 3 Mg/0.5 Mg (3 Ml) Ud) 3 ml IH [id number] Last Admin: 12/03/17 07:43 Dose: 3 ml Albuterol/Ipratropium (Duoneb 3 Mg/0.5 Mg (3 Ml) Ud) 3 ml IH Q2H PRN PRN Reason: Wheezing Amlodipine Besylate (Norvasc) 10 mg PO DAILY [facility] Aspirin (Aspirin) 325 mg PO DAILY [facility] Last Admin: 12/02/17 10:03 Dose: 325 mg Atorvastatin Calcium (Lipitor) 40 mg PO HS [facility] Last Admin: 12/02/17 22:14 Dose: 40 mg Calcium Acetate (Phoslo) 1,334 mg PO TID [facility] Last Admin: 12/03/17 10:24 Dose: 1,334 mg Carvedilol (Coreg) 6.25 mg PO 08,1999 [facility] Last Admin: 12/03/17 09:18 Dose: 6.25 mg Clonidine HCl (Catapres) 0.1 mg PO BID PRN PRN Reason: For SBP>160 & OR diastolic>100 Collagenase (Santyl) 0 gm TOP DAILY [facility] Last Admin: 12/03/17 10:23 Dose: 1 applic Donepezil HCl (Aricept) 10 mg PO HS [facility] Last Admin: 12/02/17 22:13 Dose: 10 mg Gabapentin (Neurontin) 100 mg PO HS [facility] PRN Reason: Protocol Last Admin: 12/02/17 22:14 Dose: 100 mg Heparin Sodium (Porcine) (Heparin) 5,000 units SC Q12 [facility] PRN Reason: Protocol Last Admin: 12/03/17 09:18 Dose: 5,000 units Hydralazine HCl (Apresoline) 100 mg PO BID [facility] Last Admin: 12/03/17 10:45 Dose: Not Given Meropenem 250 mg/ Sodium (Chloride) 100 mls @ 100 mls/hr IVPB Q12H [facility] PRN Reason: Protocol Stop: 12/04/17 22:01 Last Admin: 12/03/17 10:17 Dose: 100 mls/hr Insulin Detemir (Levemir) 5 unit SC [facility] Last Admin: 12/03/17 09:16 Dose: 5 units Insulin Human Regular (Humulin R Low) 0 units SC ACHS [facility] PRN Reason: Protocol Last Admin: 12/03/17 11:44 Dose: Not Given Lactobacillus Acidophilus (Bacid Acidophilus) 1 cap PO BID [facility] Last Admin: 12/03/17 10:46 Dose: 1 cap Losartan Potassium (Cozaar) 100 mg PO DAILY [facility] Last Admin: 12/03/17 10:46 Dose: Not Given Memantine (Namenda) 5 mg PO DAILY [facility] Last Admin: 12/03/17 10:17 Dose: 5 mg Lpbtj-9-Rrzl Ethyl Esters (Lovaza) 1 gm PO BID [facility] Last Admin: 12/03/17 10:47 Dose: Not Given Pantoprazole Sodium (Protonix Ec Tab) 40 mg PO DAILY [facility] Last Admin: 12/03/17 10:24 Dose: 40 mg Tamsulosin HCl (Flomax) 0.4 mg PO DAILY [facility] Last Admin: 12/03/17 10:46 Dose: 0.4 mg - Labs Labs: 12/03/17 05:50 12/03/17 05:50 PT 12.5 SECONDS (9.4-12.5) 11/25/17 08:15 INR 1.09 (0.93-1.08) H 11/25/17 08:15 APTT 35.1 Seconds (25.1-36.5) 11/25/17 08:15 - Constitutional Appears: Non-toxic, No Acute Distress - Head Exam Head Exam: ATRAUMATIC, NORMAL INSPECTION, NORMOCEPHALIC - Eye Exam Eye Exam: EOMI, Normal appearance, PERRL - ENT Exam ENT Exam: Mucous Membranes Moist, Normal Oropharynx - Neck Exam Neck Exam: Full ROM, Normal Inspection - Respiratory Exam Respiratory Exam: Clear to Ausculation Bilateral, NORMAL BREATHING PATTERN - Cardiovascular Exam Cardiovascular Exam: REGULAR RHYTHM, +S1, +S2 A[address]. - GI/Abdominal Exam GI & Abdominal Exam: Soft, Normal Bowel Sounds - Extremities Exam Extremities Exam: Normal Capillary Refill Additional comments: L foot wrapped in gauze dressing. No discharge appreciated through dressing - Back Exam Back Exam: NORMAL INSPECTION - Neurological Exam Neurological Exam: Alert, Awake, CN II-XII Intact - Psychiatric Exam Psychiatric exam: Normal Affect, Normal Mood - Skin Skin Exam: Dry, Intact, Normal Color, Warm Assessment and Plan - Assessment and Plan (Free Text) Assessment: Assessment: 77 year old male with pertinent medical history of recent osteomyelitis, ESRD on HD MWF, IDDM, HLD, Dementia, BPH, HTN, GERD who presented with generalized fatigue and subjective fevers. Patient was found to be septic with leukocytosis and fever of 100.9 on arrival. Patient was admitted for sepsis work up, ruling out foot vs. lung vs dialysis AV fistula as source of infection. Patient subsequently transferred to ICU after multiple episodes of several second pauses of asystole. Single ventricle pacemaker placement without issue, followed by HD. Patient transferred from ICU and currently on med-surg floors. Plan: SIRS of Unknown Source, likely 2/2 Osteomyelitis vs PNA vs Dialysis AV Fistula 2/4 Tachypnea, Febrile on admission, unknown source. VSS currently CXR significant for reticular nodular opacities in the lower lobes - ? atypical pneumonitis vs interstitial edema. Mild pulmonary venous congestion. Repeat CXR showed Right basilar opacity, possible PNA, and possible small pleural effusions at both costophrenic angles ID Consult - Dr. Lance wound culture positive for MSSA. Appreciate ABx recs blood culture 2/2 neg after 5 days Currently on Merrem renally dosed 250 mg BID. Vanc 1 gm given yesterday. ID Recommends 4-6 weeks of Vanc and meropenem with weekly CBC, CMP, esr, CRP and vanc levels. F/u PICC line placement Asystole, possible 2/2 to beta june use vs heart block - resolved Patient had multiple episodes of asystole, lasting as long as 7 seconds on . Pacemaker placed 11/26 without issue. VSS. Carvedilol at 6.25, and continue hydralazine 100 prn per cardio recs Cardiology consult - Dr. Whalen Left foot infected ulcers Podiatry consulted (Dr. Espino) Patient getting vanc during dialysis MWF S/p debridement of Necrotic ulceration of 5th digit - will f/u podiatry recs Bone scan negative for O/M Arterial doppler studies- posterior tibial artery, anterior tibial artery, and perforating artery at ankle level is strongly monophasic Arterial duplex studies show bilateral tibial disease. Pulse palpable on posterior tibial and dorsalis pedis on Left foot. ESRD on HD, MWF Continue with Lars Fox on consult HD to be done this afternoon Continue coreg 12.[address] Fox Hx Diabetes Cont Accuchecks ACHS RISS low, cont Home lantus 10 U HS Consistent carb/renal dialysis/HH diet f/u a1c Cont. gabapentin 100mg HS for neuropathy Hx BPH Cont. flomax 0.4mg daily Hx HLD Continue lovaza, home med atorvastatin 40mg HS, home ASA 325 f/u lipid panel Dementia Cont. memantine 5mg daily Cont. donepezil 10mg HS Prophylaxis Cont. protonix 40mg PO daily Cont. heparin 5000u sc q12h Disposition: Not candidate for TCU. F/u case management regarding [facility] vs home placement. Appreciate PT recs since no longer candidate for TCU Patient will f/u with Dr. Wilson in the pacemaker clinic upon discharge. Patient seen, case reviewed and plan discussed with Dr. Meza. Ez Nuñez, PGY-1 <Opal Meza - Last Filed: 12/03/17 17:29> Objective - Vital Signs/Intake and Output Vital Signs (last 24 hours): Temp Pulse Resp BP Pulse Ox 98 F 77 20 161/69 H 93 L 12/03/17 08:03 12/03/17 12:09 12/03/17 08:03 12/03/17 12:09 12/03/17 08:03 Intake and Output: 12/03/17 12/03/17 06:59 18:59 Intake Total 120 Output Total 850 Balance -730 - Medications Medications: Current Medications Albuterol/Ipratropium (Duoneb 3 Mg/0.5 Mg (3 Ml) Ud) 3 ml IH [id number] Last Admin: 12/03/17 13:29 Dose: 3 ml Albuterol/Ipratropium (Duoneb 3 Mg/0.5 Mg (3 Ml) Ud) 3 ml IH Q2H PRN PRN Reason: Wheezing Amlodipine Besylate (Norvasc) 10 mg PO DAILY [facility] Aspirin (Aspirin) 325 mg PO DAILY [facility] Last Admin: 12/03/17 14:18 Dose: Not Given Atorvastatin Calcium (Lipitor) 40 mg PO HS [facility] Last Admin: 12/02/17 22:14 Dose: 40 mg Calcium Acetate (Phoslo) 1,334 mg PO TID [facility] Last Admin: 12/03/17 14:08 Dose: 1,334 mg Carvedilol (Coreg) 6.25 mg PO 0800,1999 [facility] Last Admin: 12/03/17 09:18 Dose: 6.25 mg Clonidine HCl (Catapres) 0.1 mg PO BID PRN PRN Reason: For SBP>160 & OR diastolic>100 Collagenase (Santyl) 0 gm TOP DAILY [facility] Last Admin: 12/03/17 10:23 Dose: 1 applic Donepezil HCl (Aricept) 10 mg PO HS [facility] Last Admin: 12/02/17 22:13 Dose: 10 mg Gabapentin (Neurontin) 100 mg PO HS [facility] PRN Reason: Protocol Last Admin: 12/02/17 22:14 Dose: 100 mg Heparin Sodium (Porcine) (Heparin) 5,000 units SC Q12 [facility] PRN Reason: Protocol Last Admin: 12/03/17 09:18 Dose: 5,000 units Hydralazine HCl (Apresoline) 100 mg PO BID [facility] Last Admin: 12/03/17 10:45 Dose: Not Given Meropenem 250 mg/ Sodium (Chloride) 100 mls @ 100 mls/hr IVPB Q12H [facility] PRN Reason: Protocol Stop: 12/04/17 22:01 Last Admin: 12/03/17 10:17 Dose: 100 mls/hr Insulin Detemir (Levemir) 5 unit SC [facility] Last Admin: 12/03/17 09:16 Dose: 5 units Insulin Human Regular (Humulin R Low) 0 units SC ACHS [facility] PRN Reason: Protocol Last Admin: 12/03/17 15:39 Dose: Not Given Lactobacillus Acidophilus (Bacid Acidophilus) 1 cap PO BID [facility] Last Admin: 12/03/17 10:46 Dose: 1 cap Losartan Potassium (Cozaar) 100 mg PO DAILY [facility] Last Admin: 12/03/17 10:46 Dose: Not Given Memantine (Namenda) 5 mg PO DAILY [facility] Last Admin: 12/03/17 10:17 Dose: 5 mg Lounx-8-[id number] Ethyl Esters (Lovaza) 1 gm PO BID [facility] Last Admin: 12/03/17 10:47 Dose: Not Given Pantoprazole Sodium (Protonix Ec Tab) 40 mg PO DAILY [facility] Last Admin: 12/03/17 10:24 Dose: 40 mg Tamsulosin HCl (Flomax) 0.4 mg PO DAILY [facility] Last Admin: 12/03/17 10:46 Dose: 0.4 mg - Labs Labs: 12/03/17 05:50 12/03/17 05:50 PT 12.5 SECONDS (9.4-12.5) 11/25/17 08:15 INR 1.09 (0.93-1.08) H 11/25/17 08:15 APTT 35.1 Seconds (25.1-36.5) 11/25/17 08:15 Attending/Attestation - Attestation I have personally seen and examined this patient.: Yes I have fully participated in the care of the patient.: Yes I have reviewed all pertinent clinical information, including history, physical exam and plan: Yes Notes (Text): 12/03/17 17:21 77 year old male with past medical history of ESRD on HD, hypertension, diabetes and recent osteomyelitis on vancomycin during dialysis who presented with fever and leukocytosis. CXR showed reticular nodular opacities in the lower lobes which could represent atypical pneumonitis or interstitial edema and mild pulmonary venous congestion. Foot xray and bone scan was negative for osteomyelitis, however clinical suspicioun for osteomyelitis per podiatry. Continue with iv antibiotics per ID and wound care as per podiatry. Patient is s/p debridement last week. Wound culture is growing Staph Aureus. Will request for picc line as patient will need 4-6 weeks of antibiotics as per ID. D/c planning to [facility] vs home with home services. He also had pacemaker placement since admission due to bradycardia with prolonged sinus pauses. Opal Meza MD Hospitalist.
[2017-12-03] MEDS ORDERED: Darbepoetin Alfa 60 mcg/ml Inj IVP ONE (13:57)
--- NOTE | 2017-12-03 14:08 | CP.PCM.PN ---
Subjective - Date & Time of Evaluation Date of Evaluation: 12/03/17 Time of Evaluation: 14:04 - Subjective Subjective: Podiatry Progress Note for Dr. Maher 77 yo male seen and evaluated at bedside for left superficial ulcerations on the dorsal aspect of the digits 1,2,4 and ulceration to left 5th digit. He is 3 days s/p debridement of left 5th digit. He is resting comfortably and denies any acute overnight events. He states that he is only in pain when his left fourth and fifth digits are touched. Denies any other pedal complaints at this time. Denies N/V/F/C/CP/SOB/D/posterior calf pain when squeezed. Objective - Vital Signs/Intake and Output Vital Signs (last 24 hours): Temp Pulse Resp BP Pulse Ox 98 F 77 20 161/69 H 93 L 12/03/17 08:03 12/03/17 12:09 12/03/17 08:03 12/03/17 12:09 12/03/17 08:03 Intake and Output: 12/03/17 12/03/17 06:59 18:59 Intake Total 120 Output Total 850 Balance -730 - Medications Medications: Current Medications Albuterol/Ipratropium (Duoneb 3 Mg/0.5 Mg (3 Ml) Ud) 3 ml IH [id number] [facility] Last Admin: 12/03/17 13:29 Dose: 3 ml Albuterol/Ipratropium (Duoneb 3 Mg/0.5 Mg (3 Ml) Ud) 3 ml IH Q2H PRN PRN Reason: Wheezing Amlodipine Besylate (Norvasc) 10 mg PO DAILY [facility] Aspirin (Aspirin) 325 mg PO DAILY [facility] Last Admin: 12/02/17 10:03 Dose: 325 mg Atorvastatin Calcium (Lipitor) 40 mg PO HS [facility] Last Admin: 12/02/17 22:14 Dose: 40 mg Calcium Acetate (Phoslo) 1,334 mg PO TID [facility] Last Admin: 12/03/17 10:24 Dose: 1,334 mg Carvedilol (Coreg) 6.25 mg PO 08,1999 [facility] Last Admin: 12/03/17 09:18 Dose: 6.25 mg Clonidine HCl (Catapres) 0.1 mg PO BID PRN PRN Reason: For SBP>160 & OR diastolic>100 Collagenase (Santyl) 0 gm TOP DAILY [facility] Last Admin: 12/03/17 10:23 Dose: 1 applic Donepezil HCl (Aricept) 10 mg PO HS [facility] Last Admin: 12/02/17 22:13 Dose: 10 mg Gabapentin (Neurontin) 100 mg PO HS [facility] PRN Reason: Protocol Last Admin: 12/02/17 22:14 Dose: 100 mg Heparin Sodium (Porcine) (Heparin) 5,000 units SC Q12 [facility] PRN Reason: Protocol Last Admin: 12/03/17 09:18 Dose: 5,000 units Hydralazine HCl (Apresoline) 100 mg PO BID [facility] Last Admin: 12/03/17 10:45 Dose: Not Given Meropenem 250 mg/ Sodium (Chloride) 100 mls @ 100 mls/hr IVPB Q12H [facility] PRN Reason: Protocol Stop: 12/04/17 22:01 Last Admin: 12/03/17 10:17 Dose: 100 mls/hr Insulin Detemir (Levemir) 5 unit SC ACBHS [facility] Last Admin: 12/03/17 09:16 Dose: 5 units Insulin Human Regular (Humulin R Low) 0 units SC ACHS [facility] PRN Reason: Protocol Last Admin: 12/03/17 11:44 Dose: Not Given Lactobacillus Acidophilus (Bacid Acidophilus) 1 cap PO BID [facility] Last Admin: 12/03/17 10:46 Dose: 1 cap Losartan Potassium (Cozaar) 100 mg PO DAILY [facility] Last Admin: 12/03/17 10:46 Dose: Not Given Memantine (Namenda) 5 mg PO DAILY [facility] Last Admin: 12/03/17 10:17 Dose: 5 mg [id number]-6-Mdjg Ethyl Esters (Lovaza) 1 gm PO BID [facility] Last Admin: 12/03/17 10:47 Dose: Not Given Pantoprazole Sodium (Protonix Ec Tab) 40 mg PO DAILY [facility] Last Admin: 12/03/17 10:24 Dose: 40 mg Tamsulosin HCl (Flomax) 0.4 mg PO DAILY [facility] Last Admin: 12/03/17 10:46 Dose: 0.4 mg - Labs Labs: 12/03/17 05:50 12/03/17 05:50 PT 12.5 SECONDS (9.4-12.5) 11/25/17 08:15 INR 1.09 (0.93-1.08) H 11/25/17 08:15 APTT 35.1 Seconds (25.1-36.5) 11/25/17 08:15 - Constitutional Appears: Well, Non-toxic, No Acute Distress - Extremities Exam Additional comments: Left lower extremity focused exam: VASC: DP/PT pulses 1/4, Capillary refill time > 3 sec, skin temperature warm to cool, mild brawny edema noted on the dorsum of the left foot ORTHO: Pain upon palpation of the dorsal apsect of left digits, worst at fifth digit. 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 MMT 5/5 to left. NEURO: Gross and protective sensation grossly diminished b/l DERM: Ulceration on the dorsum of the left 5th digit measuring approximately 2 cm x 3 cm x .2 with fibrotic and granular base, mild serous drainage, localized erythema noted at the dorsum of the left forefoot, probe to bone of 5th digit, no malodor, no tunneling or tracking, no purulent drainage. Additional superficial ulcerations noted to dorsum of digits 1, 2,and 4 with fibrotic base ; negative for drainage, malodor, tunneling, tracking, undermining, erythema or any clinical signs of infection. Right foot ulceration noted to the dorsum of the 5th digit measuring approximately .5 cm x .5cm x .1, superficial, wound base granular, no clinical signs of infection - Neurological Exam Neurological Exam: Alert, Awake, Oriented x3 - Psychiatric Exam Psychiatric exam: Normal Affect, Normal Mood Assessment and Plan - Assessment and Plan (Free Text) Assessment: 77 yo male seen and evaluated for left superficial ulcerations on the dorsal aspect of the digits 1,2,4 and ulceration to left 5th digit. Plan: Patient seen and evaluated with attending Dr. Maher Afebrile, absent leukocytosis L foot wound cx: GP Cocci Continue IV abx per ID Bone scan negative for OM of left foot Wounds on second and third digit left open to air Wounds on fourth and fifth digits dressed with xeroform, gauze, and kerlix No plan for surgical intervention at this time Podiatry will continue to follow while patient in house
--- NOTE | 2017-12-03 16:34 | PN ---
DATE: 12/03/2017 SUBJECTIVE: The patient is seen lying in bed. He is awake, he is alert, he is comfortable. He denies any pain. He denies any shortness of breath. PHYSICAL EXAMINATION GENERAL: Obese elderly male lying in bed. VITAL SIGNS: Blood pressure 161/69, heart rate 77, respiratory rate 20, temperature 98. HEENT: Normocephalic, atraumatic, positive pallor. NECK: Supple, no JVD. LUNGS: Bilateral equal air entry, no rales. CARDIAC: S1 and S2. Regular rate and rhythm. No murmur, no rub. ABDOMEN: Obese, distended, soft, nontender, bowel sounds present. EXTREMITIES: Dressing of the left foot. INTAKE AND OUTPUT: 1360/1250. LABORATORY DATA: WBC 5.9, hemoglobin 9.3. Sodium 141, potassium 4.7, chloride 99, CO2 of 28, BUN 51, creatinine 8.4, glucose 122, calcium 8.5, phosphorus 6, magnesium 2.1. C-reactive protein 20. Left foot gram stain staph aureus. CURRENT MEDICATIONS: Hydralazine 100 b.i.d., Aricept, aspirin, Catapres, Coreg 6.25 b.i.d., Cozaar 100, DuoNeb, Flomax, heparin, insulin, meropenem 250 every 12 hours, Namenda, Neurontin, amlodipine, PhosLo, Protonix. ASSESSMENT: 1. Status post bradycardia/pauses, pacemaker placement. 2. Cellulitis. 3. End-stage renal disease. 4. Hypertension. 5. Hyperlipidemia. 6. Non-insulin dependant diabetes mellitus. 7. Peripheral arterial disease. PLAN: 1. Dialysis today. 2. Continue antibiotics as per ID recommendations. 3. Aranesp 60 mcg on dialysis today. Wound care. Yadira Fox MD
--- NOTE | 2017-12-03 17:15 | CP.PCM.PN ---
Subjective - Date & Time of Evaluation Date of Evaluation: 12/03/17 Time of Evaluation: 12:45 - Subjective Subjective: No fevers, not in distress. Improved pain in the left foot, no nausea. Objective - Vital Signs/Intake and Output Vital Signs (last 24 hours): Temp Pulse Resp BP Pulse Ox 98 F 67 20 172/68 H 93 L 12/03/17 08:03 12/03/17 09:18 12/03/17 08:03 12/03/17 09:18 12/03/17 08:03 Intake and Output: 12/03/17 12/03/17 06:59 18:59 Intake Total 120 Output Total 850 Balance -730 - Medications Medications: Current Medications Albuterol/Ipratropium (Duoneb 3 Mg/0.5 Mg (3 Ml) Ud) 3 ml IH [id number] [facility] Last Admin: 12/03/17 07:43 Dose: 3 ml Albuterol/Ipratropium (Duoneb 3 Mg/0.5 Mg (3 Ml) Ud) 3 ml IH Q2H PRN PRN Reason: Wheezing Amlodipine Besylate (Norvasc) 10 mg PO DAILY [facility] Aspirin (Aspirin) 325 mg PO DAILY [facility] Last Admin: 12/02/17 10:03 Dose: 325 mg Atorvastatin Calcium (Lipitor) 40 mg PO HS [facility] Last Admin: 12/02/17 22:14 Dose: 40 mg Calcium Acetate (Phoslo) 1,334 mg PO TID [facility] Last Admin: 12/03/17 10:24 Dose: 1,334 mg Carvedilol (Coreg) 6.25 mg PO 0800,1999 [facility] Last Admin: 12/03/17 09:18 Dose: 6.25 mg Clonidine HCl (Catapres) 0.1 mg PO BID PRN PRN Reason: For SBP>160 & OR diastolic>100 Collagenase (Santyl) 0 gm TOP DAILY [facility] Last Admin: 12/03/17 10:23 Dose: 1 applic Donepezil HCl (Aricept) 10 mg PO HS [facility] Last Admin: 12/02/17 22:13 Dose: 10 mg Gabapentin (Neurontin) 100 mg PO HS [facility] PRN Reason: Protocol Last Admin: 12/02/17 22:14 Dose: 100 mg Heparin Sodium (Porcine) (Heparin) 5,000 units SC Q12 [facility] PRN Reason: Protocol Last Admin: 12/03/17 09:18 Dose: 5,000 units Hydralazine HCl (Apresoline) 100 mg PO BID [facility] Last Admin: 12/03/17 10:45 Dose: Not Given Meropenem 250 mg/ Sodium (Chloride) 100 mls @ 100 mls/hr IVPB Q12H [facility] PRN Reason: Protocol Stop: 12/04/17 22:01 Last Admin: 12/03/17 10:17 Dose: 100 mls/hr Insulin Detemir (Levemir) 5 unit SC ACBHS [facility] Last Admin: 12/03/17 09:16 Dose: 5 units Insulin Human Regular (Humulin R Low) 0 units SC ACHS [facility] PRN Reason: Protocol Last Admin: 12/03/17 08:34 Dose: Not Given Lactobacillus Acidophilus (Bacid Acidophilus) 1 cap PO BID [facility] Last Admin: 12/03/17 10:46 Dose: 1 cap Losartan Potassium (Cozaar) 100 mg PO DAILY [facility] Last Admin: 12/03/17 10:46 Dose: Not Given Memantine (Namenda) 5 mg PO DAILY [facility] Last Admin: 12/02/17 10:08 Dose: 5 mg Xcufm-7-Tspa Ethyl Esters (Lovaza) 1 gm PO BID [facility] Last Admin: 12/03/17 10:47 Dose: Not Given Pantoprazole Sodium (Protonix Ec Tab) 40 mg PO DAILY [facility] Last Admin: 12/03/17 10:24 Dose: 40 mg Tamsulosin HCl (Flomax) 0.4 mg PO DAILY [facility] Last Admin: 12/03/17 10:46 Dose: 0.4 mg - Labs Labs: 12/03/17 05:50 12/03/17 05:50 PT 12.5 SECONDS (9.4-12.5) 11/25/17 08:15 INR 1.09 (0.93-1.08) H 11/25/17 08:15 APTT 35.1 Seconds (25.1-36.5) 11/25/17 08:15 - Constitutional Appears: Chronically Ill - Head Exam Head Exam: NORMAL INSPECTION - Respiratory Exam Respiratory Exam: Decreased Breath Sounds - Cardiovascular Exam Cardiovascular Exam: +S1, +S2 - GI/Abdominal Exam GI & Abdominal Exam: Soft. absent: Tenderness - Extremities Exam Additional comments: left foot with dressings in place Assessment and Plan - Assessment and Plan (Free Text) Plan: Assessment severe sepsis due to left foot cellulitis with left 5th toe gangrene and clinical osteomyelitis history of severe sepsis due to healthcare-associated pneumonia as well as epiglottitis with oropahryngeal candidiasis ESRD on HD DM HTN morbid obesity with BMI 41 dyslipidemia COPD cataracts chronic low back pain Plan continue intermittent Vancomycin and Merrem (day 9) - will need 4-6 weeks of antibiotics with weekly ESR, CRP, CBC, CMP with outpatient follow up with Podiatry will monitor clinically
[2017-12-04] MEDS: Albuterol-Ipratrop 3 mg / 0.5 (3 ml) UD IH SCH ×3 (01:05→13:44)
[2017-12-04] MEDS: Insulin Reg-LOW-Coverage SC SCH ×4 (05:45→17:29)
--- NOTE | 2017-12-04 06:39 | CP.PCM.PN ---
Subjective - Date & Time of Evaluation Date of Evaluation: 12/04/17 Time of Evaluation: 06:15 - Subjective Subjective: Awake, alert, hungry, no distress,denies chest pain, denies shortness of breath Reason for consultation and follow up: Status post pacemaker for multiple pauses , history of ESRD, hypertension, peripheral artery disease,hyperlipidemia. Seen and examined by me and Dr. Whalen Objective - Vital Signs/Intake and Output Vital Signs (last 24 hours): Temp Pulse Resp BP Pulse Ox 98 F 77 20 161/69 H 93 L 12/03/17 08:03 12/03/17 12:09 12/03/17 08:03 12/03/17 12:09 12/03/17 08:03 Intake and Output: 12/03/17 12/04/17 18:59 06:59 Intake Total 980 Output Total 200 Balance 780 - Medications Medications: Current Medications Albuterol/Ipratropium (Duoneb 3 Mg/0.5 Mg (3 Ml) Ud) 3 ml IH [id number] [facility] Last Admin: 12/04/17 01:05 Dose: 3 ml Albuterol/Ipratropium (Duoneb 3 Mg/0.5 Mg (3 Ml) Ud) 3 ml IH Q2H PRN PRN Reason: Wheezing Amlodipine Besylate (Norvasc) 10 mg PO DAILY [facility] Aspirin (Aspirin) 325 mg PO DAILY [facility] Last Admin: 12/03/17 14:18 Dose: Not Given Atorvastatin Calcium (Lipitor) 40 mg PO HS [facility] Last Admin: 12/03/17 22:02 Dose: 40 mg Calcium Acetate (Phoslo) 1,334 mg PO TID [facility] Last Admin: 12/03/17 18:00 Dose: Not Given Carvedilol (Coreg) 6.25 mg PO 0800,1999 [facility] Last Admin: 12/03/17 22:03 Dose: 6.25 mg Clonidine HCl (Catapres) 0.1 mg PO BID PRN PRN Reason: For SBP>160 & OR diastolic>100 Collagenase (Santyl) 0 gm TOP DAILY [facility] Last Admin: 12/03/17 10:23 Dose: 1 applic Donepezil HCl (Aricept) 10 mg PO HS [facility] Last Admin: 12/03/17 22:03 Dose: 10 mg Gabapentin (Neurontin) 100 mg PO [facility] PRN Reason: Protocol Last Admin: 12/03/17 22:04 Dose: 100 mg Heparin Sodium (Porcine) (Heparin) 5,000 units SC Q12 [facility] PRN Reason: Protocol Last Admin: 12/03/17 22:00 Dose: 5,000 units Hydralazine HCl (Apresoline) 100 mg PO BID [facility] Last Admin: 12/03/17 18:00 Dose: Not Given Meropenem 250 mg/ Sodium (Chloride) 100 mls @ 100 mls/hr IVPB Q12H [facility] PRN Reason: Protocol Stop: 12/04/17 22:01 Last Admin: 12/03/17 22:04 Dose: 100 mls/hr Insulin Detemir (Levemir) 5 unit SC ACBHS [facility] Last Admin: 12/03/17 22:02 Dose: 5 units Insulin Human Regular (Humulin R Low) 0 units SC ACHS [facility] PRN Reason: Protocol Last Admin: 12/04/17 05:45 Dose: Not Given Lactobacillus Acidophilus (Bacid Acidophilus) 1 cap PO BID [facility] Last Admin: 12/03/17 18:00 Dose: Not Given Losartan Potassium (Cozaar) 100 mg PO DAILY [facility] Last Admin: 12/03/17 10:46 Dose: Not Given Memantine (Namenda) 5 mg PO DAILY [facility] Last Admin: 12/03/17 10:17 Dose: 5 mg [id number] Ethyl Esters (Lovaza) 1 gm PO BID [facility] Last Admin: 12/03/17 18:00 Dose: Not Given Pantoprazole Sodium (Protonix Ec Tab) 40 mg PO DAILY [facility] Last Admin: 12/03/17 10:24 Dose: 40 mg Tamsulosin HCl (Flomax) 0.4 mg PO DAILY [facility] Last Admin: 12/03/17 10:46 Dose: 0.4 mg - Labs Labs: 12/03/17 05:50 12/03/17 05:50 PT 12.5 SECONDS (9.4-12.5) 11/25/17 08:15 INR 1.09 (0.93-1.08) H 11/25/17 08:15 APTT 35.1 Seconds (25.1-36.5) 11/25/17 08:15 - Constitutional Appears: No Acute Distress - Eye Exam Eye Exam: Normal appearance - ENT Exam ENT Exam: Mucous Membranes Moist - Respiratory Exam Respiratory Exam: Decreased Breath Sounds, Clear to Ausculation Bilateral, NORMAL BREATHING PATTERN - Cardiovascular Exam Cardiovascular Exam: REGULAR RHYTHM, +S1, +S2 Additional comments: PPM - GI/Abdominal Exam GI & Abdominal Exam: Soft, Normal Bowel Sounds - Exam Additional comments: hemodialysis 3 x a week - Extremities Exam Additional comments: left AV shunt positive bruit/thrill left foot with wrapped with kerlix - Neurological Exam Neurological Exam: Alert, Awake, Oriented x3 - Psychiatric Exam Psychiatric exam: Normal Affect - Skin Skin Exam: Dry, Warm Assessment and Plan - Assessment and Plan (Free Text) Assessment: 77 year old male who came in to the ER due to generalized fatigue. History of hypertension, ESRD, on hemodialysis MWF. left AV shunt. 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 Cardiac consult was called due to multiple pauses on EKG. PPM was inserted. He was in ICU and now transferred to telemetry.On IV antibiotics per ID (leg cellulitis). Plan: Cardiac status stable Stable heart rate and blood pressure On ASA 325 mg daily,Norvasc 10 mg daily,Coreg 6.25 mg BID, Catapres 0.1 mg BID PRN, Cardura 2 mg BID, Heparin 5000 units SQ, Hydralazine 100mg BID, Cozaar 100 mg daily,Flomax 0.4 mg daily. On IV antibiotics per ID (left foot cellulitis) Podiatry on consult On hemodialysis (MWF) Continue current treatment Continue current medications Will follow up Plan and treatment discussed with Dr. Whalen
[2017-12-04 06:46] LABS: BASO # 0.02 K/mm3 (0.0-2.0); BASO % 0.4 % (0.0-3.0); EOS # 0.2 (0.0-0.7); EOS % 3.9 % (1.5-5.0); GRAN # 3.2 (1.4-6.5); GRAN % 59.6 % (50.0-68.0); HEMOGLOBIN 9.7 g/dL (14.0-18.0); LYMPH # 1.5 (1.2-3.4); LYMPH % 27.9 % (22.0-35.0); MEAN CELL VOLUME 89.5 fl (80.0-105.0); MEAN CORPUSCULAR HEMOGLOBIN 27.5 pg (25.0-35.0); MEAN CORPUSCULAR HGB CONC 30.7 g/dl (31.0-37.0); MEAN PLATELET VOLUME 10.6 fl (7.0-11.0); MONO # 0.4 (0.1-0.6); MONO % 8.2 % (1.0-6.0); RBC 3.53 10^6/uL (3.5-6.1); RED CELL DISTRIBUTION WIDTH 16.8 % (11.5-14.5); WHITE BLOOD COUNT 5.4 10^3/ul (4.5-11.0)
[2017-12-04 07:12] LABS: ALB/GLOB RATIO 1.2 (1.1-1.8); ALBUMIN 3.5 g/dL (3.0-4.8); CALCIUM 8.8 mg/dL (8.4-10.5)
[2017-12-04 08:11] VITALS: TEMP 98.9
[2017-12-04] MEDS: Lactobacillus Acidophilus 500 MU Cap PO SCH ×2 (11:07→18:07)
[2017-12-04] MEDS: Pantoprazole 40 mg EC Tab PO SCH (11:07)
[2017-12-04] MEDS: Omega-3-Acid Ethyl Esters 1 GM Cap PO SCH ×2 (11:07→18:08)
[2017-12-04] MEDS: Insulin Detemir 100 units/ml Vial (Levemir) SC SCH (11:09)
[2017-12-04] MEDS: Collagenase 250 Units/gm Ointment(30 gm) TOP SCH (11:31)
--- NOTE | 2017-12-04 13:47 | PN ---
Copied To: Dustin Thomas MD Attending MD: DATE: 12/04/2017 SUBJECTIVE: The patient is currently seen lying comfortable in bed on 3R. He was found to have a line placed for outpatient antibiotics. 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 He has only received 9 days of meropenem. He will also continue receiving IV vancomycin post dialysis. The patient was also treated for a possible pneumonia. The patient is scheduled for discharge today. He has been seen by the liaison planner, the visiting nurse and he is all set for home antibiotic therapy. MEDICATIONS: Medication list reviewed. The patient is currently on Apresoline, Aricept, aspirin, Lactobacillus, clonidine, Coreg, losartan, DuoNeb, Flomax, heparin, insulin, Lipitor, Lovaza, meropenem, Namenda, Neurontin, Norvasc, PhosLo, Protonix, Santyl and IV vancomycin post dialysis. INTAKE/OUTPUT: Intake is 1360, output is 1250 plus dialysis. OBJECTIVE: VITAL SIGNS: Blood pressure is ranging from 161-180 systolic, diastolics ranging from 65-69. Temperature 98.9, respiratory rate 20 with a pulse of 79. HEENT: Shows him to be normocephalic, atraumatic. Conjunctivae are pale. Sclerae are nonicteric. NECK: Supple. No neck vein distention. CHEST: Clear to auscultation and percussion with no rales, rhonchi or wheezing. CARDIOVASCULAR: Shows a permanent pacemaker in place. Normal S1, S2. No audible murmurs, rubs or gallops. ABDOMEN: Soft. No distention. Bowel sounds normal. No rebound or guarding. EXTREMITIES: Working AV fistula in left upper extremity. The patient will have a line placed in his right upper extremity. He has a dressing over his right foot . LABORATORY DATA AND IMAGING: CBC from today, white blood cell count is 5.4, hemoglobin 9.7, stable. Platelet count is 156,000. Chemistries showed normal electrolytes. Today's BUN is 24 with a creatinine of 5.5. Last calcium was 8.8. Last phosphorus was 3.7 with a magnesium of 2. Liver enzymes are normal. Albumin is 3.5 and stable. Microbiology, left foot is positive for Staph aureus. MSSA. Blood cultures are negative at 5 days. Blood bank, the patient is status post transfusion of 1 unit of packed red blood cells. ASSESSMENT AND PLAN: 1. End-stage renal disease. The patient will continue Sunday, Sunday, Sunday dialysis. He will return to [facility] for continued dialysis and receive IV vancomycin post dialysis as per Infectious Disease. 2. History of hypertension. Blood pressure control is suboptimal. We will continue to adjust medications in the outpatient setting and continue to bring the patient down to his dry weight. 3. History of non-insulin dependent diabetes mellitus on sliding scale insulin. Glucose control is acceptable. 4. History of secondary hyperparathyroidism. Calcium, phosphorus levels are acceptable. 5. History of anemia. Hemoglobin stable in the 9-10 range. 6. Status post symptomatic bradycardia, status post placement of a permanent pacemaker. 7. History of coronary artery disease, currently stable. 8. History of cellulitis of the left fifth toe with gangrenous changes, continuing on antibiotic therapy for possible clinical osteomyelitis. 9. History of chronic obstructive pulmonary disease, currently stable. PLAN: 1. From a renal standpoint, the patient is okay for discharge. 2. The patient will be followed by my partner, Dr. Fox. He returns for Sunday, Sunday, Sunday dialysis at [facility] at [facility], [facility]. 3. Continue duration of antibiotics as per Infectious Disease. 4. Continue local wound care. 5. Continue to monitor sugars closely. 6. Continue medications for secondary hyperparathyroidism. Dustin Thomas MD
--- NOTE | 2017-12-04 16:03 | CP.PCM.PN ---
<Ry Almendarez - Last Filed: 12/04/17 15:59> Subjective - Date & Time of Evaluation Date of Evaluation: 12/04/17 Time of Evaluation: 16:00 - Subjective Subjective: Podiatry Progress Note for Dr. Gleason 77 yo male seen and evaluated at bedside for left superficial ulcerations on the dorsal aspect of the digits 1,2,4 and ulceration to left 5th digit. He is 5 days s/p debridement of left 5th digit. He is resting comfortably and denies any acute overnight events. He states that he is only in pain when his left fourth and fifth digits are touched and overall his level of comfort is improving. Denies any other pedal complaints at this time. Denies N/V/F/C/CP/SOB /D/posterior calf pain when squeezed. Objective - Vital Signs/Intake and Output Vital Signs (last 24 hours): Temp Pulse Resp BP Pulse Ox 98.9 F 79 20 180/65 H 91 L 12/04/17 08:10 12/04/17 11:07 12/04/17 08:10 12/04/17 11:07 12/04/17 08:10 Intake and Output: 12/04/17 12/04/17 06:59 18:59 Intake Total 0 Balance 0 - Medications Medications: Current Medications Albuterol/Ipratropium (Duoneb 3 Mg/0.5 Mg (3 Ml) Ud) 3 ml IH [id number] [facility] Last Admin: 12/04/17 13:44 Dose: 3 ml Albuterol/Ipratropium (Duoneb 3 Mg/0.5 Mg (3 Ml) Ud) 3 ml IH Q2H PRN PRN Reason: Wheezing Amlodipine Besylate (Norvasc) 10 mg PO DAILY [facility] Aspirin (Aspirin) 325 mg PO DAILY [facility] Last Admin: 12/04/17 11:06 Dose: 325 mg Atorvastatin Calcium (Lipitor) 40 mg PO HS [facility] Last Admin: 12/03/17 22:02 Dose: 40 mg Calcium Acetate (Phoslo) 1,334 mg PO TID [facility] Last Admin: 12/04/17 15:13 Dose: 1,334 mg Carvedilol (Coreg) 6.25 mg PO 0800,1999 [facility] Last Admin: 12/04/17 11:07 Dose: 6.25 mg Clonidine HCl (Catapres) 0.1 mg PO BID PRN PRN Reason: For SBP>160 & OR diastolic>100 Collagenase (Santyl) 0 gm TOP DAILY [facility] Last Admin: 12/04/17 11:31 Dose: 1 applic Donepezil HCl (Aricept) 10 mg PO HS [facility] Last Admin: 12/03/17 22:03 Dose: 10 mg Gabapentin (Neurontin) 100 mg PO HS [facility] PRN Reason: Protocol Last Admin: 12/03/17 22:04 Dose: 100 mg Heparin Sodium (Porcine) (Heparin) 5,000 units SC Q12 [facility] PRN Reason: Protocol Last Admin: 12/04/17 11:09 Dose: 5,000 units Hydralazine HCl (Apresoline) 100 mg PO BID [facility] Last Admin: 12/04/17 11:07 Dose: 100 mg Meropenem 250 mg/ Sodium (Chloride) 100 mls @ 100 mls/hr IVPB Q12H [facility] PRN Reason: Protocol Stop: 12/04/17 22:01 Last Admin: 12/04/17 11:22 Dose: 100 mls/hr Insulin Detemir (Levemir) 5 unit SC ACBHS [facility] Last Admin: 12/04/17 11:09 Dose: 5 units Insulin Human Regular (Humulin R Low) 0 units SC ACHS [facility] PRN Reason: Protocol Last Admin: 12/04/17 08:28 Dose: Not Given Lactobacillus Acidophilus (Bacid Acidophilus) 1 cap PO BID [facility] Last Admin: 12/04/17 11:07 Dose: 1 cap Losartan Potassium (Cozaar) 100 mg PO DAILY [facility] Last Admin: 12/04/17 11:06 Dose: 100 mg Memantine (Namenda) 5 mg PO DAILY [facility] Last Admin: 12/04/17 11:07 Dose: 5 mg [id number] Ethyl Esters (Lovaza) 1 gm PO BID [facility] Last Admin: 12/04/17 11:07 Dose: 1 gm Pantoprazole Sodium (Protonix Ec Tab) 40 mg PO DAILY [facility] Last Admin: 12/04/17 11:07 Dose: 40 mg Tamsulosin HCl (Flomax) 0.4 mg PO DAILY [facility] Last Admin: 12/04/17 11:07 Dose: 0.4 mg - Labs Labs: 12/04/17 06:00 12/04/17 06:00 PT 12.5 SECONDS (9.4-12.5) 11/25/17 08:15 INR 1.09 (0.93-1.08) H 11/25/17 08:15 APTT 35.1 Seconds (25.1-36.5) 11/25/17 08:15 - Constitutional Appears: Well, Non-toxic, No Acute Distress - Extremities Exam Additional comments: Left lower extremity focused exam: VASC: DP/PT pulses 1/4, Capillary refill time > 3 sec, skin temperature warm to cool, mild brawny edema noted on the dorsum of the left foot ORTHO: Pain upon palpation of the dorsal apsect of left digits, worst at fifth digit. 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 MMT 5/5 to left. NEURO: Epicritic and protective sensation grossly diminished b/l DERM: Ulceration on the dorsum of the left 5th digit measuring approximately 2 cm x 3 cm x .2 with fibrotic and granular base, mild serous drainage, localized erythema noted at the dorsum of the left forefoot, probe to bone of 5th digit, no malodor, no tunneling or tracking, no purulent drainage. Additional superficial ulcerations noted to dorsum of digits 1, 2,and 4 with fibrotic base ; negative for drainage, malodor, tunneling, tracking, undermining, erythema or any clinical signs of infection. Right foot ulceration noted to the dorsum of the 5th digit measuring approximately .5 cm x .5cm x .1, superficial, wound base granular, no clinical signs of infection noted to any ulceration site - Neurological Exam Neurological Exam: Alert, Awake, Oriented x3 - Psychiatric Exam Psychiatric exam: Normal Affect, Normal Mood Assessment and Plan - Assessment and Plan (Free Text) Assessment: 77 yo male seen and evaluated at bedside for left superficial ulcerations on the dorsal aspect of the digits 1,2,4 and ulceration to left 5th digit. Plan: Patient seen and evaluated with attending Dr. Gleason Afebrile, absent leukocytosis L foot wound cx: GP Cocci Continue IV abx per ID Bone scan negative for OM of left foot Wounds on second and third digit left open to air Wounds on fourth and fifth digits dressed with xeroform, gauze, and kerlix No plan for surgical intervention at this time Podiatry will continue to follow while patient in house <Jose Gleason - Last Filed: 12/05/17 19:04> Objective - Vital Signs/Intake and Output Vital Signs (last 24 hours): Temp Pulse Resp BP Pulse Ox 98.9 F 80 20 182/70 H 92 L 12/04/17 17:30 12/04/17 17:30 12/04/17 17:30 12/04/17 18:08 12/04/17 17:30 - Labs Labs: 12/04/17 06:00 12/04/17 06:00 PT 12.5 SECONDS (9.4-12.5) 11/25/17 08:15 INR 1.09 (0.93-1.08) H 11/25/17 08:15 APTT 35.1 Seconds (25.1-36.5) 11/25/17 08:15 Attending/Attestation - Attestation I have personally seen and examined this patient.: Yes I have fully participated in the care of the patient.: Yes I have reviewed all pertinent clinical information, including history, physical exam and plan: Yes
--- NOTE | 2017-12-04 16:32 | PN ---
Copied To: Long Lance MD Attending MD: Long Lance MD. DATE: 12/04/2017 SUBJECTIVE: The patient is in bed, in no acute distress, nontoxic. PHYSICAL EXAMINATION: VITAL SIGNS: Temperature is 98, blood pressure is 180/60, respiratory rate of 20, heart rate of 88. HEENT: Examination of HEENT is unremarkable. NECK: Supple. LUNGS: Decreased breath sounds. HEART: Normal S1, S2. ABDOMEN: Soft, nontender. No rebound or guarding. No masses. LABORATORY DATA: Laboratory examination reveals the patient has white count of 5.4, hemoglobin of 9, platelets of 156. Chemistries are noted. Creatinine is 5.5. Microbiology is noted with a left foot Staph aureus is pansensitive. ASSESSMENT AND PLAN: A 77-year-old male with severe sepsis due to left foot cellulitis and a left fifth toe gangrene, clinical osteomyelitis. The patient with end-stage renal disease, on hemodialysis; diabetes mellitus and with morbid obesity and hypertension and BMI of 41, chronic obstructive lung disease, dyslipidemia with vancomycin and meropenem day #10. Will need 4-6 weeks of antibiotics with CBC, SMA-18, sed rate, C-reactive protein once weekly. Long Lance MD
[2017-12-04 17:30] VITALS: BP 182/70; PULSE 80; O2SAT 92
--- NOTE | 2017-12-04 18:05 | CP.PCM.DIS ---
Provider - Provider Date of Admission: 11/25/17 09:54 Attending physician: Opal Meza MD Primary care physician: Dr. Martines Consults: Cardio: Koby Nephro: Fox [facility]: [facility] Course - Lab Results Lab Results: Micro Results 11/30/17 22:17 Foot - Left Gram Stain - Final 11/30/17 22:17 Foot - Left Wound Culture - Final Staphylococcus Aureus 11/26/17 03:00 Naris MRSA Culture (Admit) - Final MRSA NOT DETECTED Most Recent Lab Values WBC 5.4 10^3/ul (4.5-11.0) 12/04/17 06:00 RBC 3.53 10^6/uL (3.5-6.1) 12/04/17 06:00 Hgb 9.7 g/dL (14.0-18.0) L 12/04/17 06:00 Hct 31.6 % (42.0-52.0) L 12/04/17 06:00 MCV 89.5 fl (80.0-105.0) 12/04/17 06:00 MCH 27.5 pg (25.0-35.0) 12/04/17 06:00 MCHC 30.7 g/dl (31.0-37.0) L 12/04/17 06:00 RDW 16.8 % (11.5-14.5) H 12/04/17 06:00 Plt Count 156 10^3/uL (120.0-450.0) 12/04/17 06:00 MPV 10.6 fl (7.0-11.0) 12/04/17 06:00 Gran % 59.6 % (50.0-68.0) 12/04/17 06:00 Lymph % (Auto) 27.9 % (22.0-35.0) 12/04/17 06:00 [place] % (Auto) 8.2 % (1.0-6.0) H 12/04/17 06:00 Eos % (Auto) 3.9 % (1.5-5.0) 12/04/17 06:00 Baso % (Auto) 0.4 % (0.0-3.0) 12/04/17 06:00 Gran # 3.20 (1.4-6.5) 12/04/17 06:00 Lymph # (Auto) 1.5 (1.2-3.4) 12/04/17 06:00 [place] # (Auto) 0.4 (0.1-0.6) 12/04/17 06:00 Eos # (Auto) 0.2 (0.0-0.7) 12/04/17 06:00 Baso # (Auto) 0.02 K/mm3 (0.0-2.0) 12/04/17 06:00 ESR 45 mm/hr (0.00-15.0) H 12/03/17 05:50 Retic Count 3.56 % (0.5-1.5) H 11/27/17 05:30 PT 12.5 SECONDS (9.4-12.5) 11/25/17 08:15 INR 1.09 (0.93-1.08) H 11/25/17 08:15 APTT 35.1 Seconds (25.1-36.5) 11/25/17 08:15 pCO2 41 mm/Hg (35-45) 11/26/17 01:10 pO2 71.0 mm/Hg (80-100) L 11/26/17 01:10 HCO3 29.8 mmol/L (21-28) H 11/26/17 01:10 ABG pH 7.47 (7.35-7.45) H 11/26/17 01:10 ABG Total CO2 31.1 mmol.L (22-28) H 11/26/17 01:10 ABG O2 Saturation 93.3 % (95-98) L 11/26/17 01:10 ABG Base Excess 5.6 mmol/L (-2.0-3.0) H 11/26/17 01:10 ABG Potassium 3.6 mmol/L (3.6-5.2) 11/26/17 01:10 VBG pH 7.43 (7.32-7.43) 11/25/17 08:15 VBG pCO2 53.0 (40-60) 11/25/17 08:15 VBG HCO3 35.2 mmol/l (21-28) H 11/25/17 08:15 VBG Total CO2 36.8 mmol.L (22-28) H 11/25/17 08:15 VBG O2 Sat (Calc) 89.4 % (40-65) H 11/25/17 08:15 VBG Base Excess 9.1 mmol/L (0.0-2.0) H 11/25/17 08:15 VBG Potassium 4.0 mmol/L (3.6-5.2) 11/25/17 08:15 Sodium 142.0 mmol/L (132-148) 11/26/17 01:10 Chloride 108.0 mmol/L (98-107) H 11/26/17 01:10 Glucose 72 mg/dl (75-110) L 11/26/17 01:10 Lactate 0.7 mmol/L (0.7-2.1) 11/26/17 01:10 FiO2 28.0 % 11/26/17 01:10 Sodium 142 mmol/L (132-148) 12/04/17 06:00 Potassium 4.0 mmol/L (3.6-5.0) 12/04/17 06:00 Chloride 98 mmol/L (98-107) 12/04/17 06:00 Carbon Dioxide 32 mmol/L (21-33) 12/04/17 06:00 Anion Gap 15 (10-20) 12/04/17 06:00 BUN 24 mg/dL (7-21) H 12/04/17 06:00 Creatinine 5.5 mg/dl (0.8-1.5) H 12/04/17 06:00 Est GFR ( Amer) 12 12/04/17 06:00 Est GFR (Non-Af Amer) 10 12/04/17 06:00 POC Glucose (mg/dL) 128 mg/dL (65-110) H 12/04/17 16:53 Random Glucose 94 mg/dL (70-110) 12/04/17 06:00 Hemoglobin A1c 5.8 % (4.2-6.5) 11/26/17 10:00 Calcium 8.8 mg/dL (8.4-10.5) 12/04/17 06:00 Phosphorus 3.7 mg/dL (2.5-4.5) 12/04/17 09:00 Magnesium 2.0 mg/dL (1.7-2.2) 12/04/17 09:00 Iron 33 ug/dL (45-180) L 11/27/17 05:30 TIBC 202 ug/dL (261-462) L 11/27/17 05:30 % Saturation 16 % (20-55) L 11/27/17 05:30 Ferritin 245.0 ng/mL 11/27/17 05:30 Total Bilirubin 0.4 mg/dL (0.2-1.3) 12/04/17 06:00 AST 22 U/L (17-59) 12/04/17 06:00 ALT 14 U/L (7-56) 12/04/17 06:00 Alkaline Phosphatase 79 U/L (38-126) 12/04/17 06:00 Troponin I 0.07 ng/mL D 11/26/17 01:15 C-Reactive Protein 20.70 mg/L (0.0-9.9) H 12/03/17 05:50 NT-Pro-B Natriuret Pep 42719 pg/mL (0-450) H 11/25/17 08:15 Total Protein 6.4 g/dL (5.8-8.3) 12/04/17 06:00 Albumin 3.5 g/dL (3.0-4.8) 12/04/17 06:00 Globulin 2.9 gm/dL 12/04/17 06:00 Albumin/Globulin Ratio 1.2 (1.1-1.8) 12/04/17 06:00 Triglycerides 127 mg/dL (35-160) 11/27/17 05:45 Cholesterol 126 mg/dL (130-200) L 11/27/17 05:45 LDL Cholesterol Direct 51 mg/dL (0-129) 11/27/17 05:45 HDL Cholesterol 26 mg/dL (29-60) L 11/27/17 05:45 Procalcitonin 0.58 NG/ML (0.19-0.49) H 11/25/17 08:15 Free T4 1.17 ng/dL (0.78-2.19) 11/26/17 01:15 Thyroxine (T4) 5.3 ug/dL (5.5-11.0) L 11/26/17 01:15 Total T3 0.55 ng/mL (0.97-1.69) L 11/26/17 01:15 TSH 3rd Generation 4.89 mIU/mL (0.46-4.68) H 11/25/17 08:15 Arterial Blood Potassium 3.6 mmol/L (3.6-5.2) 11/26/17 01:10 Venous Blood Potassium 4.0 mmol/L (3.6-5.2) 11/25/17 08:15 Stool Occult Blood Negative (NEGATIVE) 12/01/17 17:45 Random Vancomycin 20.1 ug/mL (20-40) 12/03/17 05:50 Blood Type O POSITIVE 11/26/17 08:00 Antibody Screen Negative 11/26/17 08:00 Crossmatch See Detail 11/26/17 08:00 BBK History Checked Patient has bt 11/26/17 08:00 - Hospital Course Hospital Course: This is a 77 year old male with PMH of ESRD (HD MWF), insulin dependent diabetes mellitus, HTN, HLD, Dementia, BPH, and GERD who presented to [facility] for fevers and generalized fatigue, and was found to be septic. He also developed arrhythmic episodes of telemetry concerning for possible asystole (Cardio had already been consulted prior to this). While here, he was also seen by Cardio, Podiatry, ID, and Nephro. As per Cardio, likely sick sinus syndrome, s/p Permanent Pacer, continue current cardiac meds (Aspirin 325mg daily, Norvasc 10mg daily, Coreg 6.25mg BID, Lipitor 40mg, Cardura 2mg BID, Hydralazine 100mg BID, Cozaar 100mg daily), and patient to follow up with his outpatient [facility] (Dr. Wilson). As per Podiatry, likely osteomyelitis, will need prolonged abx, which as per ID was ordered as 1g Vanco qMWF (with dialysis) and Merrem IV BID, both x28 days. Midline for outpatient IV antibiotics was placed as patient refusing KAELA placement, will receive abx at home. To follow up with PMD (Dr. Martines) within 1 week of discharge, to follow up with outpatient EP as above, to continue MWF HD here at [facility]. Prescriptions for home Vanco and Merrem provided, as well as for weekly labs ( ESR, CRP, CBC, CMP, Vanco trough) x4 week as per ID's recs. Reviewed discharge instructions and followup with patient, who expressed understanding and agreement. He was given an opportunity to ask any questions, which were answered to his satisfaction. Patient then discharged to home. Seen, reviewed, and discussed with attending, Dr. Meza. Discharge Exam - Head Exam Head Exam: NORMAL INSPECTION Discharge Plan - Discharge Medications Prescriptions: Meropenem [Merrem IV] 250 mg IVPB Q12H #60 vial Vancomycin/0.9 % Sod Chloride [Vanco 1 Gram/150 ml-0.9% NaCl] 1 gm IV MWF #12 plast..bag - Follow Up Plan Condition: GUARDED Disposition: HOME/ ROUTINE
--- NOTE | 2017-12-04 19:07 | CP.PCM.DIS ---
<zE Nuñez - Last Filed: 12/04/17 19:04> Provider - Provider Date of Admission: 11/25/17 09:54 Attending physician: Opal Meza MD Primary care physician: Dr. Martines Consults: Cardio: Koby Nephro: Dominique ID: Natalio Podiatry: Nika Time Spent in preparation of Discharge (in minutes): 45 Hospital Course - Lab Results Lab Results: Micro Results 11/30/17 22:17 Foot - Left Gram Stain - Final 11/30/17 22:17 Foot - Left Wound Culture - Final Staphylococcus Aureus 11/26/17 03:00 Naris MRSA Culture (Admit) - Final MRSA NOT DETECTED Most Recent Lab Values WBC 5.4 10^3/ul (4.5-11.0) 12/04/17 06:00 RBC 3.53 10^6/uL (3.5-6.1) 12/04/17 06:00 Hgb 9.7 g/dL (14.0-18.0) L 12/04/17 06:00 Hct 31.6 % (42.0-52.0) L 12/04/17 06:00 MCV 89.5 fl (80.0-105.0) 12/04/17 06:00 MCH 27.5 pg (25.0-35.0) 12/04/17 06:00 MCHC 30.7 g/dl (31.0-37.0) L 12/04/17 06:00 RDW 16.8 % (11.5-14.5) H 12/04/17 06:00 Plt Count 156 10^3/uL (120.0-450.0) 12/04/17 06:00 MPV 10.6 fl (7.0-11.0) 12/04/17 06:00 Gran % 59.6 % (50.0-68.0) 12/04/17 06:00 Lymph % (Auto) 27.9 % (22.0-35.0) 12/04/17 06:00 [place] % (Auto) 8.2 % (1.0-6.0) H 12/04/17 06:00 Eos % (Auto) 3.9 % (1.5-5.0) 12/04/17 06:00 Baso % (Auto) 0.4 % (0.0-3.0) 12/04/17 06:00 Gran # 3.20 (1.4-6.5) 12/04/17 06:00 Lymph # (Auto) 1.5 (1.2-3.4) 12/04/17 06:00 [place] # (Auto) 0.4 (0.1-0.6) 12/04/17 06:00 Eos # (Auto) 0.2 (0.0-0.7) 12/04/17 06:00 Baso # (Auto) 0.02 K/mm3 (0.0-2.0) 12/04/17 06:00 ESR 45 mm/hr (0.00-15.0) H 12/03/17 05:50 Retic Count 3.56 % (0.5-1.5) H 11/27/17 05:30 PT 12.5 SECONDS (9.4-12.5) 11/25/17 08:15 INR 1.09 (0.93-1.08) H 11/25/17 08:15 APTT 35.1 Seconds (25.1-36.5) 11/25/17 08:15 pCO2 41 mm/Hg (35-45) 11/26/17 01:10 pO2 71.0 mm/Hg (80-100) L 11/26/17 01:10 HCO3 29.8 mmol/L (21-28) H 11/26/17 01:10 ABG pH 7.47 (7.35-7.45) H 11/26/17 01:10 ABG Total CO2 31.1 mmol.L (22-28) H 11/26/17 01:10 ABG O2 Saturation 93.3 % (95-98) L 11/26/17 01:10 ABG Base Excess 5.6 mmol/L (-2.0-3.0) H 11/26/17 01:10 ABG Potassium 3.6 mmol/L (3.6-5.2) 11/26/17 01:10 VBG pH 7.43 (7.32-7.43) 11/25/17 08:15 VBG pCO2 53.0 (40-60) 11/25/17 08:15 VBG HCO3 35.2 mmol/l (21-28) H 11/25/17 08:15 VBG Total CO2 36.8 mmol.L (22-28) H 11/25/17 08:15 VBG O2 Sat (Calc) 89.4 % (40-65) H 11/25/17 08:15 VBG Base Excess 9.1 mmol/L (0.0-2.0) H 11/25/17 08:15 VBG Potassium 4.0 mmol/L (3.6-5.2) 11/25/17 08:15 Sodium 142.0 mmol/L (132-148) 11/26/17 01:10 Chloride 108.0 mmol/L (98-107) H 11/26/17 01:10 Glucose 72 mg/dl (75-110) L 11/26/17 01:10 Lactate 0.7 mmol/L (0.7-2.1) 11/26/17 01:10 FiO2 28.0 % 11/26/17 01:10 Sodium 142 mmol/L (132-148) 12/04/17 06:00 Potassium 4.0 mmol/L (3.6-5.0) 12/04/17 06:00 Chloride 98 mmol/L (98-107) 12/04/17 06:00 Carbon Dioxide 32 mmol/L (21-33) 12/04/17 06:00 Anion Gap 15 (10-20) 12/04/17 06:00 BUN 24 mg/dL (7-21) H 12/04/17 06:00 Creatinine 5.5 mg/dl (0.8-1.5) H 12/04/17 06:00 Est GFR ( Amer) 12 12/04/17 06:00 Est GFR (Non-Af Amer) 10 12/04/17 06:00 POC Glucose (mg/dL) 128 mg/dL (65-110) H 12/04/17 16:53 Random Glucose 94 mg/dL (70-110) 12/04/17 06:00 Hemoglobin A1c 5.8 % (4.2-6.5) 11/26/17 10:00 Calcium 8.8 mg/dL (8.4-10.5) 12/04/17 06:00 Phosphorus 3.7 mg/dL (2.5-4.5) 12/04/17 09:00 Magnesium 2.0 mg/dL (1.7-2.2) 12/04/17 09:00 Iron 33 ug/dL (45-180) L 11/27/17 05:30 TIBC 202 ug/dL (261-462) L 11/27/17 05:30 % Saturation 16 % (20-55) L 11/27/17 05:30 Ferritin 245.0 ng/mL 11/27/17 05:30 Total Bilirubin 0.4 mg/dL (0.2-1.3) 12/04/17 06:00 AST 22 U/L (17-59) 12/04/17 06:00 ALT 14 U/L (7-56) 12/04/17 06:00 Alkaline Phosphatase 79 U/L (38-126) 12/04/17 06:00 Troponin I 0.07 ng/mL D 11/26/17 01:15 C-Reactive Protein 20.70 mg/L (0.0-9.9) H 12/03/17 05:50 NT-Pro-B Natriuret Pep 29209 pg/mL (0-450) H 11/25/17 08:15 Total Protein 6.4 g/dL (5.8-8.3) 12/04/17 06:00 Albumin 3.5 g/dL (3.0-4.8) 12/04/17 06:00 Globulin 2.9 gm/dL 12/04/17 06:00 Albumin/Globulin Ratio 1.2 (1.1-1.8) 12/04/17 06:00 Triglycerides 127 mg/dL (35-160) 11/27/17 05:45 Cholesterol 126 mg/dL (130-200) L 11/27/17 05:45 LDL Cholesterol Direct 51 mg/dL (0-129) 11/27/17 05:45 HDL Cholesterol 26 mg/dL (29-60) L 11/27/17 05:45 Procalcitonin 0.58 NG/ML (0.19-0.49) H 11/25/17 08:15 Free T4 1.17 ng/dL (0.78-2.19) 11/26/17 01:15 Thyroxine (T4) 5.3 ug/dL (5.5-11.0) L 11/26/17 01:15 Total T3 0.55 ng/mL (0.97-1.69) L 11/26/17 01:15 TSH 3rd Generation 4.89 mIU/mL (0.46-4.68) H 11/25/17 08:15 Arterial Blood Potassium 3.6 mmol/L (3.6-5.2) 11/26/17 01:10 Venous Blood Potassium 4.0 mmol/L (3.6-5.2) 11/25/17 08:15 Stool Occult Blood Negative (NEGATIVE) 12/01/17 17:45 Random Vancomycin 20.1 ug/mL (20-40) 12/03/17 05:50 Blood Type O POSITIVE 11/26/17 08:00 Antibody Screen Negative 11/26/17 08:00 Crossmatch See Detail 11/26/17 08:00 BBK History Checked Patient has bt 11/26/17 08:00 - Hospital Course Hospital Course: Ez Nuñez, PGY-1 Discharge Summary for Hospitalist Service This is a 77 year old male with PMH of ESRD (HD MWF), insulin dependent diabetes mellitus, HTN, HLD, Dementia, BPH, and GERD who presented to [facility] for fevers and generalized fatigue, and was found to be septic. He also developed arrhythmic episodes of telemetry concerning for possible asystole (Cardio had already been consulted prior to this). While here, he was also seen by Cardio, Podiatry, ID, and Nephro. As per Cardio, likely sick sinus syndrome, s/p Permanent Pacer, continue current cardiac meds (Aspirin 325mg daily, Norvasc 10mg daily, Coreg 6.25mg BID, Lipitor 40mg, Cardura 2mg BID, Hydralazine 100mg BID, Cozaar 100mg daily), and patient to follow up with his outpatient [facility] (Dr. Wilson). As per Podiatry, likely osteomyelitis, will need prolonged abx, which as per ID was ordered as 1g Vanco qMWF (with dialysis) and Merrem IV BID, both x28 days. Midline for outpatient IV antibiotics was placed as patient refusing KAELA placement, will receive abx at home. To follow up with PMD (Dr. Martines) within 1 week of discharge, to follow up with outpatient EP as above, to continue MWF HD here at [facility]. Prescriptions for home Vanco and Merrem provided, as well as for weekly labs ( ESR, CRP, CBC, CMP, Vanco trough) x4 week as per ID's recs. Reviewed discharge instructions and followup with patient, who expressed understanding and agreement. He was given an opportunity to ask any questions, which were answered to his satisfaction. Patient then discharged to home. Patient seen, case reviewed, and plan discussed with attending, Dr. Meza. Discharge Exam - Head Exam Head Exam: ATRAUMATIC, NORMAL INSPECTION, NORMOCEPHALIC - Eye Exam Eye Exam: EOMI, Normal appearance Pupil Exam: PERRL - ENT Exam ENT Exam: Mucous Membranes Moist - Neck Exam Neck exam: Normal Inspection - Respiratory Exam Respiratory Exam: Decreased Breath Sounds, NORMAL BREATHING PATTERN. absent: Chest Wall Tenderness, Rales, Rhonchi, Wheezes, Respiratory Distress Additional comments: mild - Cardiovascular Exam Cardiovascular Exam: Tachycardia, RRR, +S1, +S2 Additional comments: permanent pacemaker in place - GI/Abdominal Exam GI & Abdominal Exam: Normal Bowel Sounds, Soft. absent: Guarding, Organomegaly , Rebound, Tenderness - Extremities Exam Extremities exam: pedal edema (trace) Additional comments: L upper arm fistula patent with bruit appreciated L foot wrapped. No erythema or discharge from 5th toe - Neurological Exam Neurological exam: Alert, Oriented x3 - Psychiatric Exam Psychiatric exam: Normal Affect, Normal Mood - Skin Skin Exam: Dry, Intact, Normal Color Discharge Plan - Discharge Medications Prescriptions: Meropenem [Merrem IV] 250 mg IVPB Q12H #60 vial Vancomycin/0.9 % Sod Chloride [Vanco 1 Gram/150 ml-0.9% NaCl] 1 gm IV MWF #12 plast..bag - Follow Up Plan Condition: FAIR Disposition: HOME/ ROUTINE Instructions: Diabetic Foot Ulcer (DC), Pneumonia, Adult (DC), Foot Care for Diabetics, Diabetes in Older Adults, Heart Failure (DC), Heart Failure (GEN), Pacemaker (DC), Pacemaker (GEN), Pulmonary Edema (DC), Pulmonary Edema (GEN), Renal Failure Diet (DC), Sepsis (DC), Ascites (DC), Ascites (GEN) Additional Instructions: 1. Please follow all medications as prescribed. 2. Please follow up with Dr. Martines within one week for follow up. 3. Please follow up with Dr. Wilson in his clinic for pacemaker maintenance. 4. Should symptoms reoccur or worsen, please come to your nearest emergency department. <Opal Meza - Last Filed: 12/05/17 07:47> Provider - Provider Date of Admission: 11/25/17 09:54 Attending physician: Opal Meza MD Hospital Course - Lab Results Lab Results: Micro Results 11/30/17 22:17 Foot - Left Gram Stain - Final 11/30/17 22:17 Foot - Left Wound Culture - Final Staphylococcus Aureus 11/26/17 03:00 Naris MRSA Culture (Admit) - Final MRSA NOT DETECTED Most Recent Lab Values WBC 5.4 10^3/ul (4.5-11.0) 12/04/17 06:00 RBC 3.53 10^6/uL (3.5-6.1) 12/04/17 06:00 Hgb 9.7 g/dL (14.0-18.0) L 12/04/17 06:00 Hct 31.6 % (42.0-52.0) L 12/04/17 06:00 MCV 89.5 fl (80.0-105.0) 12/04/17 06:00 MCH 27.5 pg (25.0-35.0) 12/04/17 06:00 MCHC 30.7 g/dl (31.0-37.0) L 12/04/17 06:00 RDW 16.8 % (11.5-14.5) H 12/04/17 06:00 Plt Count 156 10^3/uL (120.0-450.0) 12/04/17 06:00 MPV 10.6 fl (7.0-11.0) 12/04/17 06:00 Gran % 59.6 % (50.0-68.0) 12/04/17 06:00 Lymph % (Auto) 27.9 % (22.0-35.0) 12/04/17 06:00 [place] % (Auto) 8.2 % (1.0-6.0) H 12/04/17 06:00 Eos % (Auto) 3.9 % (1.5-5.0) 12/04/17 06:00 Baso % (Auto) 0.4 % (0.0-3.0) 12/04/17 06:00 Gran # 3.20 (1.4-6.5) 12/04/17 06:00 Lymph # (Auto) 1.5 (1.2-3.4) 12/04/17 06:00 [place] # (Auto) 0.4 (0.1-0.6) 12/04/17 06:00 Eos # (Auto) 0.2 (0.0-0.7) 12/04/17 06:00 Baso # (Auto) 0.02 K/mm3 (0.0-2.0) 12/04/17 06:00 ESR 45 mm/hr (0.00-15.0) H 12/03/17 05:50 Retic Count 3.56 % (0.5-1.5) H 11/27/17 05:30 PT 12.5 SECONDS (9.4-12.5) 11/25/17 08:15 INR 1.09 (0.93-1.08) H 11/25/17 08:15 APTT 35.1 Seconds (25.1-36.5) 11/25/17 08:15 pCO2 41 mm/Hg (35-45) 11/26/17 01:10 pO2 71.0 mm/Hg (80-100) L 11/26/17 01:10 HCO3 29.8 mmol/L (21-28) H 11/26/17 01:10 ABG pH 7.47 (7.35-7.45) H 11/26/17 01:10 ABG Total CO2 31.1 mmol.L (22-28) H 11/26/17 01:10 ABG O2 Saturation 93.3 % (95-98) L 11/26/17 01:10 ABG Base Excess 5.6 mmol/L (-2.0-3.0) H 11/26/17 01:10 ABG Potassium 3.6 mmol/L (3.6-5.2) 11/26/17 01:10 VBG pH 7.43 (7.32-7.43) 11/25/17 08:15 VBG pCO2 53.0 (40-60) 11/25/17 08:15 VBG HCO3 35.2 mmol/l (21-28) H 11/25/17 08:15 VBG Total CO2 36.8 mmol.L (22-28) H 11/25/17 08:15 VBG O2 Sat (Calc) 89.4 % (40-65) H 11/25/17 08:15 VBG Base Excess 9.1 mmol/L (0.0-2.0) H 11/25/17 08:15 VBG Potassium 4.0 mmol/L (3.6-5.2) 11/25/17 08:15 Sodium 142.0 mmol/L (132-148) 11/26/17 01:10 Chloride 108.0 mmol/L (98-107) H 11/26/17 01:10 Glucose 72 mg/dl (75-110) L 11/26/17 01:10 Lactate 0.7 mmol/L (0.7-2.1) 11/26/17 01:10 FiO2 28.0 % 11/26/17 01:10 Sodium 142 mmol/L (132-148) 12/04/17 06:00 Potassium 4.0 mmol/L (3.6-5.0) 12/04/17 06:00 Chloride 98 mmol/L (98-107) 12/04/17 06:00 Carbon Dioxide 32 mmol/L (21-33) 12/04/17 06:00 Anion Gap 15 (10-20) 12/04/17 06:00 BUN 24 mg/dL (7-21) H 12/04/17 06:00 Creatinine 5.5 mg/dl (0.8-1.5) H 12/04/17 06:00 Est GFR ( Amer) 12 12/04/17 06:00 Est GFR (Non-Af Amer) 10 12/04/17 06:00 POC Glucose (mg/dL) 128 mg/dL (65-110) H 12/04/17 16:53 Random Glucose 94 mg/dL (70-110) 12/04/17 06:00 Hemoglobin A1c 5.8 % (4.2-6.5) 11/26/17 10:00 Calcium 8.8 mg/dL (8.4-10.5) 12/04/17 06:00 Phosphorus 3.7 mg/dL (2.5-4.5) 12/04/17 09:00 Magnesium 2.0 mg/dL (1.7-2.2) 12/04/17 09:00 Iron 33 ug/dL (45-180) L 11/27/17 05:30 TIBC 202 ug/dL (261-462) L 11/27/17 05:30 % Saturation 16 % (20-55) L 11/27/17 05:30 Ferritin 245.0 ng/mL 11/27/17 05:30 Total Bilirubin 0.4 mg/dL (0.2-1.3) 12/04/17 06:00 AST 22 U/L (17-59) 12/04/17 06:00 ALT 14 U/L (7-56) 12/04/17 06:00 Alkaline Phosphatase 79 U/L (38-126) 12/04/17 06:00 Troponin I 0.07 ng/mL D 11/26/17 01:15 C-Reactive Protein 20.70 mg/L (0.0-9.9) H 12/03/17 05:50 NT-Pro-B Natriuret Pep 95365 pg/mL (0-450) H 11/25/17 08:15 Total Protein 6.4 g/dL (5.8-8.3) 12/04/17 06:00 Albumin 3.5 g/dL (3.0-4.8) 12/04/17 06:00 Globulin 2.9 gm/dL 12/04/17 06:00 Albumin/Globulin Ratio 1.2 (1.1-1.8) 12/04/17 06:00 Triglycerides 127 mg/dL (35-160) 11/27/17 05:45 Cholesterol 126 mg/dL (130-200) L 11/27/17 05:45 LDL Cholesterol Direct 51 mg/dL (0-129) 11/27/17 05:45 HDL Cholesterol 26 mg/dL (29-60) L 11/27/17 05:45 Procalcitonin 0.58 NG/ML (0.19-0.49) H 11/25/17 08:15 Free T4 1.17 ng/dL (0.78-2.19) 11/26/17 01:15 Thyroxine (T4) 5.3 ug/dL (5.5-11.0) L 11/26/17 01:15 Total T3 0.55 ng/mL (0.97-1.69) L 11/26/17 01:15 TSH 3rd Generation 4.89 mIU/mL (0.46-4.68) H 11/25/17 08:15 Arterial Blood Potassium 3.6 mmol/L (3.6-5.2) 11/26/17 01:10 Venous Blood Potassium 4.0 mmol/L (3.6-5.2) 11/25/17 08:15 Stool Occult Blood Negative (NEGATIVE) 12/01/17 17:45 Random Vancomycin 20.1 ug/mL (20-40) 12/03/17 05:50 Blood Type O POSITIVE 11/26/17 08:00 Antibody Screen Negative 11/26/17 08:00 Crossmatch See Detail 11/26/17 08:00 BBK History Checked Patient has bt 11/26/17 08:00 Attending/Attestation - Attestation I have personally seen and examined this patient.: Yes I have fully participated in the care of the patient.: Yes I have reviewed all pertinent clinical information, including history, physical exam and plan: Yes Notes (Text): 12/04/17 77 year old male with past medical history of ESRD on HD, hypertension, diabetes and recent osteomyelitis on vancomycin during dialysis who presented with fever and leukocytosis. CXR showed reticular nodular opacities in the lower lobes which could represent atypical pneumonitis or interstitial edema and mild pulmonary venous congestion. Foot xray and bone scan was negative for osteomyelitis, however clinical suspicioun for osteomyelitis per podiatry. He was on iv antibiotics as per ID and wound care as per podiatry. Patient is s/p debridement last week. Wound culture was growing Staph Aureus. ID recommended 4-6 weeks of iv antibiotics so midline was placed today. While in hospital patient was also seen by cardiology and had PPM placement due to bradycardia with prolonged sinus pauses. Patient is discharged home to continue with home infusion iv antibiotics. Recommended to check weekly labs (ESR, CRP, CBC, CMP). Follow up with pmd and podiatry. Follow up with EP/cardiology. Follow up with nephrology for HD. Opal Meza MD Hospitalist.
== END 2017-12-04 18:11 | disposition home or self-care (01) | DRG 853 ==
LOC: ED 08:17 → ERH 09:54 → 2RSO 11:10 → CCU 11-26 02:51 → 2RSO 11-27 13:59 → 3RNO 11-28 17:38
PROVIDERS: ADMIT Internal Medicine; ATTEND Internal Medicine
PROC: 0JH604Z Insertion of Pacemaker, Single Chamber into Chest Subcutaneous Tissue and Fascia, Open Approach (ICD-10-PCS; principal; 2017-11-26)
PROC: 02HK3JZ Insertion of Pacemaker Lead into Right Ventricle, Percutaneous Approach (ICD-10-PCS; 2017-11-26)
PROC: 30233N1 Transfusion of Nonautologous Red Blood Cells into Peripheral Vein, Percutaneous Approach (ICD-10-PCS; 2017-11-26)
PROC: 5A1D70Z Performance of Urinary Filtration, Intermittent, Less than 6 Hours Per Day (ICD-10-PCS; 2017-11-28)
PROC: 0JBR0ZZ Excision of Left Foot Subcutaneous Tissue and Fascia, Open Approach (ICD-10-PCS; 2017-11-29)
PROC: 5A1D70Z Performance of Urinary Filtration, Intermittent, Less than 6 Hours Per Day (ICD-10-PCS; 2017-11-30)
PROC: 5A1D70Z Performance of Urinary Filtration, Intermittent, Less than 6 Hours Per Day (ICD-10-PCS; 2017-12-03)
PROC: 05H533Z Insertion of Infusion Device into Right Subclavian Vein, Percutaneous Approach (ICD-10-PCS; 2017-12-04)
PROC: B54MZZA Ultrasonography of Right Upper Extremity Veins, Guidance (ICD-10-PCS; 2017-12-04)
DX: A41.9 Sepsis, unspecified organism (principal); J18.9 Pneumonia, unspecified organism; N18.6 End stage renal disease; I46.9 Cardiac arrest, cause unspecified; E11.52 Type 2 diabetes mellitus with diabetic peripheral angiopathy with gangrene; I13.2 Hypertensive heart and chronic kidney disease with heart failure and with stage 5 chronic kidney disease, or end stage renal disease; J44.0 Chronic obstructive pulmonary disease with (acute) lower respiratory infection; N25.81 Secondary hyperparathyroidism of renal origin; B37.0 Candidal stomatitis; M86.8X7 Other osteomyelitis, ankle and foot; L03.115 Cellulitis of right lower limb; L03.116 Cellulitis of left lower limb; I45.5 Other specified heart block; E11.22 Type 2 diabetes mellitus with diabetic chronic kidney disease; E11.621 Type 2 diabetes mellitus with foot ulcer; L97.529 Non-pressure chronic ulcer of other part of left foot with unspecified severity; E11.69 Type 2 diabetes mellitus with other specified complication; E11.36 Type 2 diabetes mellitus with diabetic cataract; E11.40 Type 2 diabetes mellitus with diabetic neuropathy, unspecified; L03.032 Cellulitis of left toe; R65.20 Severe sepsis without septic shock; I25.10 Atherosclerotic heart disease of native coronary artery without angina pectoris; I50.9 Heart failure, unspecified; N40.0 Benign prostatic hyperplasia without lower urinary tract symptoms; K21.9 Gastro-esophageal reflux disease without esophagitis; E78.5 Hyperlipidemia, unspecified; D63.1 Anemia in chronic kidney disease; E66.01 Morbid (severe) obesity due to excess calories; F03.90 Unspecified dementia, unspecified severity, without behavioral disturbance, psychotic disturbance, mood disturbance, and anxiety; M54.5 Low back pain; G89.29 Other chronic pain; Z87.891 Personal history of nicotine dependence; Z99.2 Dependence on renal dialysis; Z86.73 Personal history of transient ischemic attack (TIA), and cerebral infarction without residual deficits; Z79.4 Long term (current) use of insulin; Z79.82 Long term (current) use of aspirin; Z89.422 Acquired absence of other left toe(s); Z68.33 Body mass index [BMI] 33.0-33.9, adult

== ENCOUNTER 2018-01-23 10:00 | Inpatient (IN) | payer MEDICARE, BC ==
[2018-01-23] MEDS ORDERED: Sodium Chloride 0.9% 500 ML IV STA (10:23)
[2018-01-23] MEDS ORDERED: Vancomycin 1gm in NS 250ml 1 GM/250 ML BAG IVPB STA ×2 (10:42→10:47)
[2018-01-23] MEDS ORDERED: Piperacillin/Tazobact 3.375 gm 100 ML IVPB STA ×2 (10:42→11:47)
[2018-01-23] MEDS ORDERED: Vancomycin 500 mg Inj IVPB STA (10:50)
--- NOTE | 2018-01-23 10:52 | RAD ---
Date of service: 01/23/2018 HISTORY: Sepsis Patient COMPARISON: 11/27/2017 FINDINGS: LUNGS: No active pulmonary disease. PLEURA: No significant pleural effusion identified, no pneumothorax apparent. CARDIOVASCULAR: Mild cardiomegaly and mild vascular congestion OSSEOUS STRUCTURES: No significant abnormalities. VISUALIZED UPPER ABDOMEN: Normal. OTHER FINDINGS: None. IMPRESSION: Mild cardiomegaly and mild vascular congestion
[2018-01-23 11:10] LABS: BASO # 0.02 K/mm3 (0.0-2.0); BASO % 0.3 % (0.0-3.0); EOS # 0.1 (0.0-0.7); EOS % 1.6 % (1.5-5.0); GRAN # 5.84 (1.4-6.5); GRAN % 73.1 % (50.0-68.0); LYMPH # 1.3 (1.2-3.4); LYMPH % 15.9 % (22.0-35.0); MEAN CELL VOLUME 86.9 fl (80.0-105.0); MEAN CORPUSCULAR HEMOGLOBIN 26.9 pg (25.0-35.0); MEAN CORPUSCULAR HGB CONC 30.9 g/dl (31.0-37.0); MEAN PLATELET VOLUME 10.7 fl (7.0-11.0); MONO # 0.7 (0.1-0.6); MONO % 9.1 % (1.0-6.0); RBC 3.35 10^6/uL (3.5-6.1); RED CELL DISTRIBUTION WIDTH 17.8 % (11.5-14.5)
[2018-01-23 11:13] LABS: VENOUS BLOOD GAS BASE EXCESS 7.2 mmol/L (0.0-2.0); VENOUS BLOOD GAS PO2 67 mm/Hg (30-55); VENOUS BLOOD PH 7.42 (7.32-7.43)
--- NOTE | 2018-01-23 11:16 | ED PDOC ---
Arrival/HPI - General Chief Complaint: Abnormal Skin Integrity Time Seen by Provider: 01/23/18 10:14 Historian: Patient - History of Present Illness Narrative History of Present Illness (Text): 01/23/18 16:26 78-year-old male with a history of CHF diabetes and end-stage renal disease on dialysis presents today sent in by the wound care center for hypotension and a necrotic wound to the left fifth toe. Patient denies any pain. Patient states he is just feeling tired. Patient denies chest pain or shortness of breath. No abdominal pain. No fevers or chills. Patient states he was due for dialysis today but did not have dialysis. Past Medical History - Provider Review Nursing Documentation Reviewed: Yes - Travel History Have you recently traveled outside [place] w/in the past 3 mons?: No - Infectious Disease Hx of Infectious Diseases: None - Cardiac Hx Pacemaker: Yes - Pulmonary Hx Chronic Obstructive Pulmonary Disease (COPD): Yes - Neurological HX Cerebrovascular Accident: Yes - HEENT Hx HEENT Disorder: Yes Hx Cataracts: Yes Other/Comment: double vision/decreased vision to the left eye;decreased hearing - Renal Date of Last Dialysis Treatment: 01/21/18 Hx Renal Failure: Yes (On HD ( MWF)) - Endocrine/Metabolic Hx Diabetes Mellitus Type 2: Yes - Hematological/Oncological Hx Cancer: No - Integumentary Hx Dermatological Disorder: Yes (swollen left hand) - Musculoskeletal/Rheumatological Hx Falls: No - Gastrointestinal Hx Gastrointestinal Disorders: No - Genitourinary/Gynecological Hx Genitourinary Disorders: Yes Hx Reproductive Disorders: No - Psychiatric Hx Psychophysiologic Disorder: No Hx Substance Use: No - Surgical History Hx Mastectomy: No - Anesthesia Hx Anesthesia: Yes Hx Anesthesia Reactions: No Hx Malignant Hyperthermia: No - Suicidal Assessment Feels Threatened In Home Enviroment: No Family/Social History - Physician Review Nursing Documentation Reviewed: Yes Family/Social History: Unknown Family HX Smoking Status: Former Smoker Hx Alcohol Use: No Hx Substance Use: No Allergies/Home Meds Allergies/Adverse Reactions: Allergies No Known Allergies Allergy (Verified 01/23/18 10:11) Review of Systems - Review of Systems Constitutional: Fatigue. absent: Fevers Respiratory: absent: SOB, Cough Cardiovascular: absent: Chest Pain, Palpitations Gastrointestinal: absent: Abdominal Pain, Nausea, Vomiting Musculoskeletal: absent: Arthralgias, Back Pain, Neck Pain Skin: Skin Lesions Neurological: absent: Headache, Dizziness Physical Exam Vital Signs Reviewed: Yes Vital Signs Temp Pulse Resp BP Pulse Ox 01/23/18 13:56 78 18 104/49 L 98 01/23/18 12:31 60 18 98/54 L 95 01/23/18 11:41 70 18 101/54 L 95 01/23/18 11:18 61 20 86/40 L 97 01/23/18 10:02 98.4 F 78 18 104/44 L 95 Temperature: Afebrile Blood Pressure: Hypotensive Pulse: Regular Respiratory Rate: Normal Appearance: Positive for: Well-Appearing, Non-Toxic, Comfortable Pain Distress: None Mental Status: Positive for: Alert and Oriented X 3, Lethargic Finger Stick Blood Glucose: 112 - Systems Exam Head: Present: Atraumatic Mouth: Present: Moist Mucous Membranes Neck: Present: Normal Range of Motion Respiratory/Chest: Present: Good Air Exchange, Rales (at bases bilaterally). No : Respiratory Distress, Accessory Muscle Use, Tachypneic Cardiovascular: Present: Regular Rate and Rhythm. No: Rub, Muffled Abdomen: No: Tenderness, Rebound, Guarding Upper Extremity: Present: Normal ROM Lower Extremity: Present: Other (left foot; there is an superficial ulceration noted to left great toe; there is blueish discoloration to the left 5th toe with dime sized necrotic ulceration to the 5th toe. no erythema to foot or leg. ). No: CALF TENDERNESS, NORMAL PULSES ( no palpable pulses felt in dorasal pedis or posterior tibial bilaterally. ), Normal ROM, Tenderness Neurological: Present: GCS=15 Skin: Present: Warm, Dry, Normal Color Psychiatric: Present: Alert, Oriented x 3 Medical Decision Making ED Course and Treatment: 78-year-old male sent in from wound center with hypotension and left foot infection. pt seen and evaluated by dr. sorenson at [facility]. cbc: wbc; 8.0 Cmp: bun/cr elevated - patient is dialysis patient. Patient was found to be hypotensive with a blood pressure 100/42 in the emergency room the blood pressure decreased to 86/40. Patient was given a 250 mL bolus of fluid which improve the blood pressure to 101/42. Shortly afterwards the blood pressure again decreased to 87/35. An additional 250 mL bolus was given. Given the patient's history of left foot infection the concern would be septic shock although the patient does not have sepsis criteria at this time. Patient was treated with vancomycin and Zosyn IV due to concern for sepsis/ left 5th toe infection. bedside ultrasound does not show pericardial effusion. Recent Echocardiogram was reviewed which showed EF of 65% Patient was not given the 30 mg/kg bolus of fluid as the patient has CHF, renal failure requiring dialysis and has a chest x-ray that shows vascular congestion with rales at the bases bilaterally. 01/23/18 12:[address] 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; accepts admission to ICU for refractory hypotension, shock, left foot infection impression: refractory hypotension, Shock, left foot infection admit to ICU - Lab Interpretations Lab Results: 01/23/18 11:00 01/23/18 11:00 Lab Results 01/23/18 11:45: Total Creatine Kinase 139, Troponin I 0.03 01/23/18 11:00: pO2 67 H, VBG pH 7.42, VBG pCO2 51.0, VBG HCO3 33.1 H, VBG Total CO2 34.7 H, VBG O2 Sat (Calc) 94.1 H, VBG Base Excess 7.2 H, VBG Potassium 4.0, Sodium 138.0, Chloride 102.0, Glucose 105, Lactate 1.4, FiO2 21.0 , Venous Blood Potassium 4.0 01/23/18 11:00: WBC 8.0 D, RBC 3.35 L, Hgb 9.0 L, Hct 29.1 L, MCV 86.9, MCH 26.9, MCHC 30.9 L, RDW 17.8 H, Plt Count 191, MPV 10.7, Gran % 73.1 H, Lymph % ( Auto) 15.9 L, [place] % (Auto) 9.1 H, Eos % (Auto) 1.6, Baso % (Auto) 0.3, Gran # 5.84, Lymph # (Auto) 1.3, [place] # (Auto) 0.7 H, Eos # (Auto) 0.1, Baso # (Auto) 0.02 01/23/18 11:00: Sodium 140, Chloride 98, Potassium 4.0, Carbon Dioxide 27, Anion Gap 19, BUN 62 H, Creatinine 8.2 H* D, Est GFR ( Amer) 8, Est GFR ( Non-Af Amer) 6, Random Glucose 109, Calcium 7.8 L, Phosphorus 5.6 H, Magnesium 1.9, Total Bilirubin 0.8, AST 18, ALT 10, Alkaline Phosphatase 87, Lactate Dehydrogenase 444, Total Creatine Kinase 159, Troponin I 0.03 D, Total Protein 6.6, Albumin 3.6, Globulin 3.0, Albumin/Globulin Ratio 1.2 01/23/18 11:00: PT 13.3 H, INR 1.15, APTT 36.6 H 01/23/18 10:23: POC Glucose (mg/dL) 112 H - RAD Interpretation Radiology Orders: 01/23/18 10:22 CHEST PORTABLE [RAD] Stat 01/23/18 11:55 DUPLEX LOWER EXTRM VEIN BILAT [US] Stat LOWER EXT ART NON-INV COMPL [US] Stat - Medication Orders Current Medication Orders: Acetaminophen (Tylenol 325mg Tab) 650 mg PO Q6 PRN PRN Reason: TEMP>=99.5F Acetaminophen (Tylenol 650 Mg Supp) 650 mg RC Q6H PRN PRN Reason: TEMP>=99.5F Aspirin (Ecotrin) 81 mg PO DAILY [facility] Benzonatate (Tessalon Perles) 200 mg PO TID [facility] Dextrose (Dextrose 50% Inj) 25 ml IV STAT PRN; Protocol PRN Reason: Hypoglycemia Protocol Docusate Sodium (Colace) 100 mg PO TID [facility] Heparin Sodium (Porcine) (Heparin) 5,000 units SC Q8 [facility] PRN Reason: Protocol Doxycycline Hyclate 100 mg/ (Sodium Chloride) 100 mls @ 100 mls/hr IVPB Q12 [facility] PRN Reason: Protocol Dextrose (Dextrose 5% In Water 1000 Ml) 1,000 mls @ 0 mls/hr IV .Q0M PRN; Protocol; Per Protocol PRN Reason: Hypoglycemia Protocol Insulin Human Regular (Humulin R Med) 0 units SC ACHS [facility] PRN Reason: Protocol Levalbuterol HCl (Xopenex) 0.63 mg IH [id number] [facility] Last Admin: 01/23/18 15:02 Dose: 0.63 mg Ondansetron HCl (Zofran Inj) 4 mg IVP Q4H PRN PRN Reason: Nausea/Vomiting Pantoprazole Sodium (Protonix Ec Tab) 40 mg PO 0600 [facility] Discontinued Medications Sodium Chloride (Sodium Chloride 0.9%) 500 mls @ 999 mls/hr IV .Q31M STA Stop: 01/23/18 10:53 Last Admin: 01/23/18 10:23 Dose: 999 mls/hr eMAR Start Stop Document 01/23/18 10:23 GMD (Rec: 01/23/18 12:08 GMD [id number]) Intravenous Solution Start Date 01/23/18 Start Time 10:23 End Date 01/23/18 End time 10:53 Total Infusion Time 30 Vancomycin HCl 1.25 gm/ Sodium (Chloride) 250 mls @ 166.667 mls/hr IVPB ONCE ONE Stop: 01/23/18 12:29 Last Admin: 01/23/18 12:21 Dose: 166.667 mls/hr eMAR Start Stop Document 01/23/18 12:21 GMD (Rec: 01/23/18 12:21 GMD [id number]) Intravenous Solution Start Date 01/23/18 Start Time 12:21 End Date 01/23/18 End time 13:51 Total Infusion Time 90 Piperacillin Sod/Tazobactam Sod (Zosyn 2.25 Gm In 0.9% 100 Ml) 2.25 gm in 100 mls @ 100 mls/hr IVPB STAT STA PRN Reason: Protocol Stop: 01/23/18 12:48 Vancomycin HCl (Vancomycin Inj) 1,250 mg IVPB STAT STA PRN Reason: Protocol Stop: 01/23/18 10:51 Disposition/Present on Arrival - Present on Arrival Any Indicators Present on Arrival: No History of DVT/PE: No History of Uncontrolled Diabetes: No Urinary Catheter: No History of Decub. Ulcer: No History Surgical Site Infection Following: None - Disposition Have Diagnosis and Disposition been Completed?: Yes Diagnosis: Toe gangrene, End stage renal disease, Diabetic foot infection, CKD (chronic kidney disease) requiring chronic dialysis, Shock Disposition: HOSPITALIZED Disposition Time: 12:08 Patient Plan: Admission Patient Problems: Current Active Problems Problem Status Onset CKD (chronic kidney disease) requiring chronic dialysis Acute Diabetic foot infection Acute End stage renal disease Acute Shock Acute Toe gangrene Acute Condition: CRITICAL
[2018-01-23 11:20] LABS: INR 1.15; PARTIAL THROMBOPLASTIN TIME 36.6 Seconds (25.1-36.5); PROTHROMBIN TIME 13.3 SECONDS (9.4-12.5)
[2018-01-23] MEDS ORDERED: Sodium Chloride 0.9% 1,000 ML IV STA (11:20)
[2018-01-23 11:33] LABS: TROPONIN I 0.03 ng/mL
[2018-01-23 11:41] LABS: ALB/GLOB RATIO 1.2 (1.1-1.8); ALBUMIN 3.6 g/dL (3.0-4.8); CALCIUM 7.8 mg/dL (8.4-10.5)
[2018-01-23] MEDS ORDERED: Piperacillin/Tazobact 2.25gm 2.25 GM/100 ML BAG IVPB STA (11:49)
--- NOTE | 2018-01-23 12:51 | CP.PCM.CON ---
<Loir Ledezma - Last Filed: 01/23/18 15:42> History of Present Illness - History of Present Illness History of Present Illness: ICU consult note for Dr. Deluca Consulted for refractory hypotension and shock (unknown cause) Mr. Dangelo is an 78y/o M w/ PMH HTN, COPD, DM, neuropathy, diabetic foot wounds, CHF who presents to [facility] ER from wound care center with hypotension and left foot infection. Patient was previously discharged from [facility] 12/04 to home where he received IV Vanc and Merrem x 28 days per ID recommendations for treatment of osteomyelitis in his left foot. Patient was given 500cc total in ER with minimal blood pressure improvement. Patient otherwise denies BAEZA, CP, SOB , abdominal pain. He does endorse non radiating, constant, dull pain in his left foot. 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, left third toe amputation, denies otherwise Code status: Full code Social: former smoker, denies illicit drugs Review of Systems - Review of Systems All systems: reviewed and no additional remarkable complaints except Review of Systems: as per HPI Past Patient History - Infectious Disease Hx of Infectious Diseases: None - Past Medical History & Family History Past Medical History?: Yes - Past Social History Smoking Status: Former Smoker - CARDIAC Hx Pacemaker: Yes - PULMONARY Hx Chronic Obstructive Pulmonary Disease (COPD): Yes - NEUROLOGICAL HX Cerebrovascular Accident: Yes - HEENT Hx HEENT Problems: Yes Hx Cataracts: Yes Other/Comment: double vision/decreased vision to the left eye;decreased hearing - RENAL Date of Last Dialysis Treatment: 01/21/18 Hx Renal Failure: Yes (On HD ( MWF)) - ENDOCRINE/METABOLIC Hx Diabetes Mellitus Type 2: Yes - HEMATOLOGICAL/ONCOLOGICAL Hx Cancer: No - INTEGUMENTARY Hx Dermatological Problems: Yes (swollen left hand) - MUSCULOSKELETAL/RHEUMATOLOGICAL Hx Falls: No - GASTROINTESTINAL Hx Gastrointestinal Disorders: No - GENITOURINARY/GYNECOLOGICAL Hx Genitourinary Disorders: Yes Hx Reproductive Disorders: No - PSYCHIATRIC Hx Psychophysiologic Disorder: No Hx Substance Use: No - SURGICAL HISTORY Hx Mastectomy: No - ANESTHESIA Hx Anesthesia: Yes Hx Anesthesia Reactions: No Hx Malignant Hyperthermia: No Meds Allergies/Adverse Reactions: Allergies Allergy/AdvReac Type Severity Reaction Status Date / Time No Known Allergies Allergy Verified 01/23/18 10:11 - Medications Medications: Current Medications Acetaminophen (Tylenol 325mg Tab) 650 mg PO Q6 PRN PRN Reason: TEMP>=99.5F Acetaminophen (Tylenol 650 Mg Supp) 650 mg RC Q6H PRN PRN Reason: TEMP>=99.5F Aspirin (Ecotrin) 81 mg PO DAILY [facility] Benzonatate (Tessalon Perles) 200 mg PO TID [facility] Docusate Sodium (Colace) 100 mg PO TID [facility] Doxycycline Hyclate 100 mg/ (Sodium Chloride) 100 mls @ 100 mls/hr IVPB Q12 [facility] PRN Reason: Protocol Levalbuterol HCl (Xopenex) 0.63 mg IH [id number] [facility] Ondansetron HCl (Zofran Inj) 4 mg IVP Q4H PRN PRN Reason: Nausea/Vomiting Pantoprazole Sodium (Protonix Ec Tab) 40 mg PO 0600 [facility] Physical Exam - Constitutional Appears: Non-toxic - Head Exam Head Exam: ATRAUMATIC, NORMOCEPHALIC - Eye Exam Eye Exam: EOMI, Normal appearance Pupil Exam: PERRL - ENT Exam ENT Exam: Mucous Membranes Moist - Respiratory Exam Respiratory Exam: Rales (inferior lobes bilaterally). absent: Accessory Muscle Use, Wheezes, Respiratory Distress - Cardiovascular Exam Cardiovascular Exam: REGULAR RHYTHM - GI/Abdominal Exam GI & Abdominal Exam: Distended, Soft. absent: Guarding, Rigid, Tenderness - Extremities Exam Extremities exam: Positive for: tenderness. Negative for: calf tenderness, pedal edema Additional comments: left foot wound inspected; left fifth toe is erythematous and swollen with a 1cm x 0.5 cm black eschar, left 4th toe has a small superficial injury to the superior aspect of the toe near the nail, third toe has been amputated, well healed scar noted, second toe erythematous and scaling skin, first toe erythematous with superficial injury to the skin just proximal to the nail bed, lateral edge of foot is erythematous and tender - Neurological Exam Neurological exam: Alert, CN II-XII Intact, Oriented x3 - Psychiatric Exam Psychiatric exam: Normal Affect, Normal Mood - Skin Additional comments: left foot wound inspected; left fifth toe is erythematous and swollen with a 1cm x 0.5 cm black eschar, left 4th toe has a small superficial injury to the superior aspect of the toe near the nail, third toe has been amputated, well healed scar noted, second toe erythematous and scaling skin, first toe erythematous with superficial injury to the skin just proximal to the nail bed, lateral edge of foot is erythematous and tender Results - Vital Signs Recent Vital Signs: Last Vital Signs Temp 98.4 F 01/23/18 10:02 Pulse 60 01/23/18 12:31 Resp 18 01/23/18 12:31 BP 98/54 L 01/23/18 12:31 Pulse Ox 95 01/23/18 12:31 - Labs Result Diagrams: 01/23/18 11:00 01/23/18 11:00 Assessment & Plan - Assessment and Plan (Free Text) Assessment: 78 yr old male PMH HTN, CHF, ESRD (HHD), recent admission for osteomyelitis ( treated with IV merrem and Vanc) with hypotension and left toe wound. Patient received 500 cc bolus in ED with minimal improvement of his BP. He is alert and oriented on interview in the ED. Blood, urine and wound cultures ordered. Sepsis is considered due to left foot wound and history of osteomyelitis. CXR shows cardiomegaly and vascular congestion but no pulmonary effusion. EF on ECHO in November 61%. BNP >03505. Patient to have dialysis today, will remove additional fluid. No source of Hemorrhage identified no gross bleeding. Patient on numerous BP meds at home may consider poor clearance of home meds for cause of hypotension. patient neuro-intact with no falls; neurogenic shock unlikely. LE US negative and no right heart strain on EKG makes obstructive shock 2/2 PE unlikely. Patient to be admitted to the ICU. Plan: Neuro: - AOx3 - moves all extremities spontaneously past midline - no gross deficits, no aphasia or dysarthria - denies falls or head injury - continue to monitor Cardio: - BNP 44860, previous [id number] - PMH CHF, PAD EF 65% - Will need pressors if unable to maintain BP for dialysis - Hold home BP meds in setting of hypotension - hypotension persistent despite 500cc bolus in ED - remove additional fluid during dialysis decrease CHF exacerbation - cxr shows vascular congestion and mild cardiomegaly, no pulmonary edema or effusion noted Pulm: - hx of CHF - mild bilateral rales inferiorly - CXR shows no signs of pna/infiltrate - EKG shows no right heart strain - sat >90% on RA, maintain O2>90% GI: - denies abdominal pain - abdomen soft nontender, no guarding - LFTS show no abnormalities - GI ppx protonix Renal: -ESRD on dialysis - fistula in left hand, palpable thrill - K 4, Phos 5.6 - BUN/Cr 62/8.2, baseline Cr approximately 6 - receiving dialysis today Endo: - maintain normoglycemia - ACHS BS checks - sliding scale insulin - continue to monitor Heme: - hgb/hct 02/02 - no signs of active bleeding - will continue to monitor ID - patient completed 28 days IV Merrem and vanc last month at home after admission in November - given Vanc and Zosyn in ED - blood cx (2), urine cx (1), wound cx (1); will follow results - WBC 8, mild Granulocytosis 73% - cxr negative for infectious signs - UA pending - ID Dr. Lance consulted, recs appreciated - no leukocystosis, afebrile - left foot wound inspected; left fifth toe is erythematous and swollen with a 1cm x 0.5 cm black eschar, left 4th toe has a small superficial injury to the superior aspect of the toe near the nail, third toe has been amputated, well healed scar noted, second toe erythematous and scaling skin, first toe erythematous with superficial injury to the skin just proximal to the nail bed, lateral edge of foot is erythematous and tender GI ppx: Protonix DVT ppx: SCDs and heparin - Date & Time Date: 01/23/18 Time: 12:30 <Wilton Deluca - Last Filed: 01/23/18 17:13> Meds - Medications Medications: Current Medications Acetaminophen (Tylenol 325mg Tab) 650 mg PO Q6 PRN PRN Reason: TEMP>=99.5F Acetaminophen (Tylenol 650 Mg Supp) 650 mg RC Q6H PRN PRN Reason: TEMP>=99.5F Aspirin (Ecotrin) 81 mg PO DAILY [facility] Benzonatate (Tessalon Perles) 200 mg PO TID [facility] Darbepoetin Preet (Aranesp) 100 mcg IVP ONCE ONE Stop: 01/24/18 06:01 Dextrose (Dextrose 50% Inj) 25 ml IV STAT PRN; Protocol PRN Reason: Hypoglycemia Protocol Docusate Sodium (Colace) 100 mg PO TID [facility] Heparin Sodium (Porcine) (Heparin) 5,000 units SC Q8 [facility] PRN Reason: Protocol Doxycycline Hyclate 100 mg/ (Sodium Chloride) 100 mls @ 100 mls/hr IVPB Q12 [facility] PRN Reason: Protocol Dextrose (Dextrose 5% In Water 1000 Ml) 1,000 mls @ 0 mls/hr IV .Q0M PRN; Protocol; Per Protocol PRN Reason: Hypoglycemia Protocol Meropenem 500 mg/ Sodium (Chloride) 50 mls @ 100 mls/hr IVPB Q12 [facility] PRN Reason: Protocol Stop: 01/30/18 22:01 Insulin Human Regular (Humulin R Med) 0 units SC ACHS [facility] PRN Reason: Protocol Levalbuterol HCl (Xopenex) 0.63 mg IH [id number] [facility] Last Admin: 01/23/18 15:02 Dose: 0.63 mg Ondansetron HCl (Zofran Inj) 4 mg IVP Q4H PRN PRN Reason: Nausea/Vomiting Pantoprazole Sodium (Protonix Ec Tab) 40 mg PO 0600 [facility] Results - Vital Signs Recent Vital Signs: Last Vital Signs Temp 97.8 F 01/23/18 16:29 Pulse 60 01/23/18 16:29 Resp 20 01/23/18 16:29 BP 104/37 L 01/23/18 16:29 Pulse Ox 99 01/23/18 15:22 - Labs Result Diagrams: 01/23/18 11:00 01/23/18 11:00 Labs: Laboratory Results - last 24 hr 01/23/18 01/23/18 01/23/18 12:30 13:20 16:10 Total Creatine Kinase 135 Troponin I 0.03 C-React Prot High Sens > 15.00 H NT-Pro-B Natriuret Pep 17014 H Addendum Addendum: 01/23/18 17:13 ICU Attending Addendum: Patient seen and examined. Case reviewed on round with housestaff. Agree with resident note above with the following additions/exceptions: 78M with hx of HTN, CHF, ESRD (HD), recent admission for osteomyelitis (treated with IV merrem and Vanc) admitted with hypotension. Unclear why his BP is low. He is on several anti-HTN meds at home, possibly med induced. No signs of shock (normal lac, no end organ damage). No leukocytosis. Possible source would be toe. Will empirically tx for sepsis while awaiting cultures abx as per ID He may be volume overloaded however I would expect some more pulm edema on CXR and more pulm symptoms which he does not have He did not get worse with gentle hydration, in face BP slightly improved For HD today hold home anti-hypertensives if BP drops, start levophed as pressor rest of care above Wilton Deluca MD Director Of Quality Control Crtical Care TIme: 30 mins
--- NOTE | 2018-01-23 14:23 | CP.PCM.HP ---
<Ry Faria - Last Filed: 01/23/18 21:43> History of Present Illness - History of Present Illness History of Present Illness: Ry Faria PGY2 IM H&P Note for Dr. Whitman cc: hypotension noted in wound clinic Mr. Dangelo is an 78-year-old male with a PMH of ESRD on HD (MWF), DM 2 (on insulin), HTN, multiple sinus arrest pauses (7-8 seconds) s/p ventricular permanent pacemaker placement (11/2017), severe occlusive PVD s/p amputation of third toe of left foot, diabetic foot ulcer, osteomyelitis of the left fifth toe , obesity, COPD, and HLD who presents to the ED from the wound clinic for hypotension. The patient follows up closely with Dr. Maher for his foot ulcers and PVD, and during an appointment for his diabetic ulcer on the left fifth toe, the patient was noted to be hypotensive per ED triage note. Patient has multiple prior admissions for PVD/diabetic infected foot ulcers. The patient denies feeling ill over the past few weeks, and denies any fever/chills , nausea/vomiting/diarrhea, chest pain or shortness of breath, headaches, dizziness, changes in vision/hearing, weakness, changes in appetite. 12 point ROS was reviewed and is otherwise unremarkable. In ED, BP was in range of 86-104/40-54, and the patient was given 500 cc bolus, vancomycin and Zosyn. Patient is afebrile with no leukocytosis or bandemia and does not meet criteria for sepsis. Echocardiogram from 11/2017 showed EF 65%, with mild concentric LVH. PMD: Dr. Martines Outpt cardio: Dr. Wilson Podiatry: Dr. Becker/ Dr. Maher PMH: as above PSH: left UE AVF, left hand 5th digit amputation following ischemia from AVF complication, left third toe amputation 2016 Meds: as per MAR Allergies: NKDA SHx: former tobacco user, denies EtOH or illicit drug use FHx: non-contributory Present on Admission - Present on Admission Any Indicators Present on Admission: No Review of Systems - Review of Systems All systems: reviewed and no additional remarkable complaints except (as per HPI ) Past Patient History - Infectious Disease Hx of Infectious Diseases: None - Past Medical History & Family History Past Medical History?: Yes Past Family History: Reviewed and not pertinent - Past Social History Smoking Status: Former Smoker Alcohol: None Drugs: Denies Home Situation {Lives}: With Family - CARDIAC Hx Cardia Arrhythmia: Yes (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) Hx Circulatory Problems: Yes (PVD) Hx Congestive Heart Failure: No Hx Heart Attack: No Hx Pacemaker: Yes Hx Peripheral Vascular Disease: Yes - PULMONARY Hx Chronic Obstructive Pulmonary Disease (COPD): Yes - NEUROLOGICAL Hx Neurological Disorder: No - HEENT Hx HEENT Problems: Yes Hx Cataracts: Yes Other/Comment: double vision/decreased vision to the left eye;decreased hearing - RENAL Hx Dialysis: Yes Date of Last Dialysis Treatment: 01/21/18 Hx Renal Failure: Yes (On HD ( MWF)) - ENDOCRINE/METABOLIC Hx Diabetes Mellitus Type 2: Yes - HEMATOLOGICAL/ONCOLOGICAL Hx Anemia: Yes Hx Cancer: No - INTEGUMENTARY Hx Cellulitis: Yes - MUSCULOSKELETAL/RHEUMATOLOGICAL Hx Falls: No Hx Osteomyelitis: Yes - GASTROINTESTINAL Hx Gastrointestinal Disorders: No - GENITOURINARY/GYNECOLOGICAL Hx Genitourinary Disorders: No Hx Reproductive Disorders: No - PSYCHIATRIC Hx Psychophysiologic Disorder: No Hx Substance Use: No - SURGICAL HISTORY Hx Amputation: Yes Hx Mastectomy: No - ANESTHESIA Hx Anesthesia: Yes Hx Anesthesia Reactions: No Hx Malignant Hyperthermia: No Meds Allergies/Adverse Reactions: Allergies Allergy/AdvReac Type Severity Reaction Status Date / Time No Known Allergies Allergy Verified 01/23/18 10:11 Physical Exam - Constitutional Appears: Well, Non-toxic, No Acute Distress - Head Exam Head Exam: ATRAUMATIC, NORMAL INSPECTION - Eye Exam Eye Exam: EOMI, Normal appearance, PERRL - ENT Exam ENT Exam: Mucous Membranes Moist, Normal Exam - Respiratory Exam Respiratory Exam: Wheezes (mild), NORMAL BREATHING PATTERN. absent: Rales, Rhonchi, Respiratory Distress - Cardiovascular Exam Cardiovascular Exam: RRR, +S1, +S2 - GI/Abdominal Exam GI & Abdominal Exam: Normal Bowel Sounds, Soft. absent: Distended, Tenderness - Extremities Exam Extremities exam: Positive for: full ROM, pedal pulses present (DP: 1+ LLE, 2+ RLE; PT: 1+ LLE, 2+ RLE manually). Negative for: pedal edema Additional comments: left fifth toe lesion s/p amputation third toe - Back Exam Back exam: NORMAL INSPECTION - Neurological Exam Neurological exam: Alert, Oriented x3 - Psychiatric Exam Psychiatric exam: Normal Mood - Skin Skin Exam: Warm Additional comments: as above Results - Vital Signs Recent Vital Signs: Last Vital Signs Temp 98.4 F 01/23/18 10:02 Pulse 78 01/23/18 13:56 Resp 18 01/23/18 13:56 BP 104/49 L 01/23/18 13:56 Pulse Ox 98 01/23/18 13:56 - Labs Result Diagrams: 01/23/18 11:00 01/23/18 11:00 Labs: Laboratory Results - last 24 hr 01/23/18 13:20 NT-Pro-B Natriuret Pep 80150 H Assessment & Plan - Assessment and Plan (Free Text) Assessment: 78-year-old male with a PMH of ESRD on HD (MWF), DM 2 (on insulin), HTN, 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 Vitals from prior visits were reviewed, the patient's current BP is lower than baseline. Patient does not currently meet criteria for sepsis. CXR showed mild cardiomegaly and mild vascular congestion but no evidence of obstructive cause of shock. EKG was done and the patient is being paced, with no ST segment or T-wave changes as cause of possible cardiogenic [place] [address], and Cr is also elevated, however patient has not received dialysis today yet. Plan: 1. Hypotension, r/o sepsis due to infected L 5th toe - Transferred to ICU for close monitoring - Monitor fluid status given elevated BNP - Blood cultures 2, urine and wound cultures ordered to r/o infectious cause - Procalcitonin ordered - Started on doxycycline empirically - LE bilateral arterial and venous duplex ordered - Trend troponin to r/o cardiogenic cause - Cardiology consulted, recs appreciated - ID consulted, recs appreciated - Podiatry clinical science consultant, recs appreciated 2. History of sinus arrest, S/P pacemaker - Cardiology consulted 3. History of DM 2 - Consistent carbohydrate diet - Start ISS - Accucheck ACHS 4. History of ESRD on HD - Nephrology consulted for dialysis (MWF) - Monitor electrolytes and manage appropriately 5. History of COPD - Xopenex - Teswillon Ruma 6. PPX - Protonix for GI ppx - SCD's for DVT ppx Case was reviewed and discussed with attending, Dr. J Carlos Faria PGY2 <J CarlosOleg U - Last Filed: 01/24/18 17:04> Results - Vital Signs Recent Vital Signs: Last Vital Signs Temp 98.3 F 01/24/18 12:00 Pulse 63 01/24/18 14:45 Resp 12 01/24/18 14:45 BP 112/39 L 01/24/18 14:45 Pulse Ox 79 L 01/24/18 14:45 - Labs Result Diagrams: 01/24/18 05:45 01/24/18 05:45 Labs: Laboratory Results - last 24 hr 01/23/18 01/23/18 01/23/18 12:30 17:20 20:23 WBC RBC Hgb Hct MCV MCH MCHC RDW Plt Count MPV Gran % Lymph % (Auto) Coles % (Auto) Eos % (Auto) Baso % (Auto) Gran # Lymph # (Auto) Coles # (Auto) Eos # (Auto) Baso # (Auto) ESR APTT Sodium Potassium Chloride Carbon Dioxide Anion Gap BUN Creatinine Est GFR ( Amer) Est GFR (Non-Af Amer) POC Glucose (mg/dL) 87 Random Glucose Hemoglobin A1c Calcium Phosphorus Magnesium Total Bilirubin Direct Bilirubin AST ALT Alkaline Phosphatase Total Creatine Kinase 118 Troponin I 0.03 C-React Prot High Sens Total Protein Albumin Globulin Albumin/Globulin Ratio Triglycerides Cholesterol LDL Cholesterol Direct HDL Cholesterol Procalcitonin 0.30 01/23/18 01/24/18 01/24/18 22:12 05:45 05:45 WBC 7.5 RBC 3.44 L Hgb 9.1 L Hct 29.8 L MCV 86.6 MCH 26.5 MCHC 30.5 L RDW 17.9 H Plt Count 199 MPV 11.2 H Gran % 78.0 H Lymph % (Auto) 15.1 L Coles % (Auto) 4.9 Eos % (Auto) 1.7 Baso % (Auto) 0.3 Gran # 5.87 Lymph # (Auto) 1.1 L Coles # (Auto) 0.4 Eos # (Auto) 0.1 Baso # (Auto) 0.02 ESR APTT Sodium 143 Potassium 4.1 Chloride 100 Carbon Dioxide 26 Anion Gap 21 H BUN 60 H Creatinine 8.1 H* Est GFR ( Amer) 8 Est GFR (Non-Af Amer) 6 POC Glucose (mg/dL) 114 H Random Glucose 76 Hemoglobin A1c Calcium 7.8 L Phosphorus 6.0 H Magnesium 1.8 Total Bilirubin 0.4 Direct Bilirubin 0.4 AST 19 ALT 16 Alkaline Phosphatase 89 Total Creatine Kinase Troponin I C-React Prot High Sens Total Protein 6.5 Albumin 3.4 Globulin 3.2 Albumin/Globulin Ratio 1.1 Triglycerides 101 Cholesterol 92 L LDL Cholesterol Direct 42 HDL Cholesterol 17 L Procalcitonin 01/24/18 01/24/18 01/24/18 05:45 05:45 07:34 WBC RBC Hgb Hct MCV MCH MCHC RDW Plt Count MPV Gran % Lymph % (Auto) Coles % (Auto) Eos % (Auto) Baso % (Auto) Gran # Lymph # (Auto) Coles # (Auto) Eos # (Auto) Baso # (Auto) ESR APTT 35.9 Sodium Potassium Chloride Carbon Dioxide Anion Gap BUN Creatinine Est GFR ( Amer) Est GFR (Non-Af Amer) POC Glucose (mg/dL) 64 L Random Glucose Hemoglobin A1c 6.0 Calcium Phosphorus Magnesium Total Bilirubin Direct Bilirubin AST ALT Alkaline Phosphatase Total Creatine Kinase Troponin I C-React Prot High Sens Total Protein Albumin Globulin Albumin/Globulin Ratio Triglycerides Cholesterol LDL Cholesterol Direct HDL Cholesterol Procalcitonin 01/24/18 01/24/18 01/24/18 09:00 09:00 11:30 WBC RBC Hgb Hct MCV MCH MCHC RDW Plt Count MPV Gran % Lymph % (Auto) Coles % (Auto) Eos % (Auto) Baso % (Auto) Gran # Lymph # (Auto) Coles # (Auto) Eos # (Auto) Baso # (Auto) ESR 57 H APTT Sodium Potassium Chloride Carbon Dioxide Anion Gap BUN Creatinine Est GFR ( Amer) Est GFR (Non-Af Amer) POC Glucose (mg/dL) 137 H Random Glucose Hemoglobin A1c Calcium Phosphorus Magnesium Total Bilirubin Direct Bilirubin AST ALT Alkaline Phosphatase Total Creatine Kinase Troponin I C-React Prot High Sens > 15.00 H Total Protein Albumin Globulin Albumin/Globulin Ratio Triglycerides Cholesterol LDL Cholesterol Direct HDL Cholesterol Procalcitonin Attending/Attestation - Attestation I have personally seen and examined this patient.: Yes I have fully participated in the care of the patient.: Yes I have reviewed all pertinent clinical information: Yes Notes (Text): Please see/read my dictated notes.
[2018-01-23 14:41] LABS: TROPONIN I 0.03 ng/mL
[2018-01-23] MEDS: Levalbuterol 1.25 MG/3 ML Inhal Soln UD IH SCH ×2 (15:02→20:00)
[2018-01-23] MEDS ORDERED: Dextrose 50% SYRINGE Inj (50 ml) IV PRN (15:48)
[2018-01-23 16:51] LABS: TROPONIN I 0.03 ng/mL
[2018-01-23 16:55] VITALS: BMI 32.8
[2018-01-23] MEDS: Insulin Reg-MEDIUM-Coverage SC SCH ×2 (17:26→22:14)
--- NOTE | 2018-01-23 19:16 | CP.PCM.CON ---
<Lico Matias - Last Filed: 01/23/18 19:21> History of Present Illness - History of Present Illness History of Present Illness: Podiatry consult notes for attending Dr. Maher 78 Y/O male Patient with PMHx of IDDM, HTN, HLD, BPH, Dementia, GERD and ESRD, multiple sinus arrests and pacemaker placement November 2017 was evaluated at bedside for an ulcer of the left 5th digit . Patient was sitting in his bed at the visit time. Patient states that today he was at the wound care center for f ollowing up his left 5th toe ulcer. Patient states that he was hypotensive and was sent to the ED. Patient states that he was treated for his left foot ulcer since long time. he states that he had left 3rd toe amputation in 2016. Patient denies any recent F/N/V/C or SOB. Patient denies any other pedal complaint at this time. PMHx: ESRD, IDDM, HLD, Dementia, BPH, HTN, GERD, multiple sinus arrests and pacemaker placement November 2017 PSHx: left UE AVF, left hand 5th digit amputation following ischemia from AVF complication, left third toe amputation 2016. Pacemaker placement November 2017. Allergies: N.K.D.A Social Hx: former tobacco user, denies EtOH or illicit drug use Review of Systems - Review of Systems Review of Systems: As Per HPI Past Patient History - Infectious Disease Hx of Infectious Diseases: None - Past Medical History & Family History Past Medical History?: Yes - Past Social History Smoking Status: Former Smoker - CARDIAC Hx Cardiac Disorders: Yes Hx Congestive Heart Failure: Yes Hx Peripheral Vascular Disease: Yes Other/Comment: Pacemaker - PULMONARY Hx Respiratory Disorders: Yes Other/Comment: COPD - NEUROLOGICAL Hx Neurological Disorder: Yes - HEENT Other/Comment: double vision/decreased vision to the left eye;decreased hearing - RENAL Hx Dialysis: Yes Date of Last Dialysis Treatment: 01/21/18 Hx Renal Failure: Yes (On HD ( MWF)) - ENDOCRINE/METABOLIC Hx Endocrine Disorders: Yes Hx Diabetes Mellitus Type 2: Yes - HEMATOLOGICAL/ONCOLOGICAL Hx Blood Disorders: Yes Hx Anemia: Yes Hx Cancer: No - INTEGUMENTARY Hx Cellulitis: Yes - MUSCULOSKELETAL/RHEUMATOLOGICAL Hx Musculoskeletal Disorders: Yes Hx Osteomyelitis: Yes (Left foot) - GASTROINTESTINAL Hx Gastrointestinal Disorders: No - GENITOURINARY/GYNECOLOGICAL Hx Genitourinary Disorders: Yes Hx Reproductive Disorders: No - PSYCHIATRIC Hx Psychophysiologic Disorder: No - SURGICAL HISTORY Hx Surgeries: Yes Other/Comment: amputation left foot, 3rd digit. Left Arm AV shunt - ANESTHESIA Hx Anesthesia: Yes Hx Anesthesia Reactions: No Hx Malignant Hyperthermia: No Meds Allergies/Adverse Reactions: Allergies Allergy/AdvReac Type Severity Reaction Status Date / Time No Known Allergies Allergy Verified 01/23/18 10:11 - Medications Medications: Current Medications Acetaminophen (Tylenol 325mg Tab) 650 mg PO Q6 PRN PRN Reason: TEMP>=99.5F Acetaminophen (Tylenol 650 Mg Supp) 650 mg RC Q6H PRN PRN Reason: TEMP>=99.5F Aspirin (Ecotrin) 81 mg PO DAILY [facility] Last Admin: 01/23/18 17:25 Dose: 81 mg Benzonatate (Tessalon Perles) 200 mg PO TID [facility] Last Admin: 01/23/18 18:17 Dose: Not Given Darbepoetin Preet (Aranesp) 100 mcg IVP ONCE ONE Stop: 01/24/18 06:01 Dextrose (Dextrose 50% Inj) 25 ml IV STAT PRN; Protocol PRN Reason: Hypoglycemia Protocol Docusate Sodium (Colace) 100 mg PO TID [facility] Last Admin: 01/23/18 17:28 Dose: 100 mg Heparin Sodium (Porcine) (Heparin) 5,000 units SC Q8 [facility] PRN Reason: Protocol Last Admin: 01/23/18 17:25 Dose: 5,000 units Doxycycline Hyclate 100 mg/ (Sodium Chloride) 100 mls @ 100 mls/hr IVPB Q12 [facility] PRN Reason: Protocol Last Admin: 01/23/18 18:04 Dose: 100 mls/hr Dextrose (Dextrose 5% In Water 1000 Ml) 1,000 mls @ 0 mls/hr IV .Q0M PRN; Protocol; Per Protocol PRN Reason: Hypoglycemia Protocol Meropenem 500 mg/ Sodium (Chloride) 50 mls @ 100 mls/hr IVPB Q12 [facility] PRN Reason: Protocol Stop: 01/30/18 22:01 Insulin Human Regular (Humulin R Med) 0 units SC ACHS [facility] PRN Reason: Protocol Last Admin: 01/23/18 17:26 Dose: Not Given Levalbuterol HCl (Xopenex) 0.63 mg IH [id number] [facility] Last Admin: 01/23/18 15:02 Dose: 0.63 mg Ondansetron HCl (Zofran Inj) 4 mg IVP Q4H PRN PRN Reason: Nausea/Vomiting Pantoprazole Sodium (Protonix Ec Tab) 40 mg PO 0600 [facility] Physical Exam - Constitutional Appears: Non-toxic - Head Exam Head Exam: ATRAUMATIC, NORMOCEPHALIC - Extremities Exam Additional comments: Bilateral LE focused Exam: Vasc: DP/PT pulses are faintly palpable 1/4 bilaterally, Cap refill time < 3 sec in all digits, skin temperature gradient: warm to cool from proximal to distal. Neuro: Protective sensation diminished. Gross sensation intact b/l. DERM: Ulceration on the dorsum of the 5th digit measuring approximately 1.5 cm x 3 cm with wound bed completely necrotic, covered by dry black eschar, no active drainage, no malodor, no tunneling or tracking, no purulent drainage, No erythema noted at the dorsum of the left forefoot, no clinical signs of infection. An area of ecchymosis noted on the dorsum of the 1st left digit. MSK: Painon palpation of the digits particularly the 5th digit. Muscle power intact 5/5 in all groups. - Neurological Exam Neurological exam: Alert, Oriented x3 - Psychiatric Exam Psychiatric exam: Normal Affect Results - Vital Signs Recent Vital Signs: Last Vital Signs Temp 97.8 F 01/23/18 16:29 Pulse 64 01/23/18 18:10 Resp 25 H 01/23/18 18:10 BP 112/38 L 01/23/18 18:00 Pulse Ox 93 L 01/23/18 18:10 - Labs Result Diagrams: 01/23/18 11:00 01/23/18 11:00 Labs: Laboratory Results - last 24 hr 01/23/18 01/23/18 01/23/18 12:30 13:20 16:10 Total Creatine Kinase 135 Troponin I 0.03 C-React Prot High Sens > 15.00 H NT-Pro-B Natriuret Pep 32480 H Assessment & Plan - Assessment and Plan (Free Text) Assessment: 78 Y/O M patient seen and evaluated at the bedside for gangrenous left 5th digit Plan: Patient seen and evaluated at the bed side with Dr. Maher Plan discussed in detials with attending Dr. Maher Chart, Labs and vitals reviewed; Afebrile, WBCs 8.0 LE arterial duplex: BEATRIZ R 1.14. Left foot x-ray ordered. Ulcer dressed using DSD Wound culture collected and sent to the lab. ID is on board. Podiatry will follow up the patient while in house. - Date & Time Date: 01/23/18 Time: 18:58 <BryanjenniferisaiasLizbeth Brooks - Last Filed: 02/03/18 17:55> Meds - Medications Medications: Current Medications Acetaminophen (Tylenol 325mg Tab) 650 mg PO Q6 PRN PRN Reason: TEMP>=99.5F Last Admin: 01/29/18 21:21 Dose: 650 mg Acetaminophen (Tylenol 650 Mg Supp) 650 mg RC Q6H PRN PRN Reason: TEMP>=99.5F Amlodipine Besylate (Norvasc) 10 mg PO DAILY [facility] Last Admin: 02/03/18 10:31 Dose: 10 mg Aspirin (Aspirin) 325 mg PO DAILY [facility] Last Admin: 02/02/18 15:56 Dose: Not Given Atorvastatin Calcium (Lipitor) 40 mg PO HS [facility] Last Admin: 02/02/18 21:49 Dose: 40 mg Benzonatate (Tessalon Perles) 200 mg PO TID [facility] Last Admin: 02/03/18 15:29 Dose: 200 mg Calcium Acetate (Phoslo) 667 mg PO TID [facility] Last Admin: 02/03/18 15:29 Dose: 667 mg Carvedilol (Coreg) 25 mg PO BID [facility] Last Admin: 02/03/18 10:32 Dose: 25 mg Darbepoetin Preet (Aranesp) 40 mcg IVP ONCE ONE Stop: 02/04/18 06:01 Dextrose (Dextrose 50% Inj) 25 ml IV STAT PRN; Protocol PRN Reason: Hypoglycemia Protocol Docusate Sodium (Colace) 100 mg PO TID [facility] Last Admin: 02/03/18 15:29 Dose: 100 mg Donepezil HCl (Aricept) 10 mg PO HS [facility] Last Admin: 02/02/18 21:48 Dose: 10 mg Doxazosin Mesylate (Cardura) 2 mg PO BID [facility] Last Admin: 02/03/18 10:32 Dose: 2 mg Gabapentin (Neurontin) 100 mg PO HS [facility]; Protocol Last Admin: 02/02/18 21:48 Dose: 100 mg Hydralazine HCl (Apresoline) 100 mg PO BID [facility] Last Admin: 02/03/18 10:30 Dose: 100 mg Dextrose (Dextrose 5% In Water 1000 Ml) 1,000 mls @ 0 mls/hr IV .Q0M PRN; Protocol PRN Reason: Hypoglycemia Protocol Meropenem 250 mg/ Sodium (Chloride) 100 mls @ 100 mls/hr IVPB Q12H [facility]; Protocol Stop: 02/08/18 19:31 Last Admin: 02/03/18 10:34 Dose: 100 mls/hr Insulin Human Regular (Humulin R Med) 0 units SC ACHS [facility]; Protocol Last Admin: 02/03/18 17:21 Dose: Not Given Levalbuterol HCl (Xopenex) 0.63 mg IH [id number] [facility] Last Admin: 02/03/18 16:27 Dose: 0.63 mg Lidocaine (Lidoderm) 1 ea TD DAILY [facility] Last Admin: 02/03/18 10:34 Dose: 1 ea Losartan Potassium (Cozaar) 100 mg PO DAILY [facility] Last Admin: 02/03/18 10:31 Dose: 100 mg Memantine (Namenda) 5 mg PO BID [facility] Last Admin: 02/03/18 10:31 Dose: 5 mg [id number] Ethyl Esters (Lovaza) 1 gm PO BID [facility] Last Admin: 02/03/18 10:31 Dose: 1 gm Ondansetron HCl (Zofran Inj) 4 mg IVP Q4H PRN PRN Reason: Nausea/Vomiting Pantoprazole Sodium (Protonix Ec Tab) 40 mg PO 0600 [facility] Last Admin: 02/03/18 05:48 Dose: 40 mg Tamsulosin HCl (Flomax) 0.4 mg PO DAILY [facility] Last Admin: 02/03/18 10:31 Dose: 0.4 mg Tramadol HCl (Ultram) 50 mg PO TID PRN PRN Reason: Pain, moderate (4-7) Last Admin: 02/03/18 10:31 Dose: 50 mg Results - Vital Signs Recent Vital Signs: Last Vital Signs Temp 98 F 02/03/18 14:24 Pulse 66 02/03/18 14:24 Resp 20 02/03/18 14:24 BP 128/56 L 02/03/18 14:24 Pulse Ox 94 L 02/03/18 14:24 - Labs Result Diagrams: 02/02/18 10:00 02/02/18 10:00 Labs: Laboratory Results - last 24 hr 02/02/18 02/03/18 02/03/18 21:27 07:16 11:27 POC Glucose (mg/dL) 159 H 189 H 186 H 02/03/18 16:10 POC Glucose (mg/dL) 149 H Attending/Attestation - Attestation I have personally seen and examined this patient.: Yes I have fully participated in the care of the patient.: Yes I have reviewed all pertinent clinical information: Yes
--- NOTE | 2018-01-23 19:39 | US ---
PROCEDURE: Lower extremity BEATRIZ exam HISTORY: Severe peripheral vascular disease. Left 5th toe gangrene. End-stage renal disease. Diabetes. Previous smoker. PHYSICIAN(S): Yong Womack MD. FINDINGS: The resting ABIs are inaccurate due to calcification. The high thigh pressures and waveforms are relatively normal. The calf PVR waveforms augment normally. No significant gradients are noted across the thighs. The ankle and metatarsal waveforms are moderately to severely blunted, greater on the left than the right. The findings are consistent with bilateral trifurcation and tibial occlusive disease IMPRESSION: 1. Bilateral tibial occlusive disease, greater on the left than the right.
--- NOTE | 2018-01-23 19:42 | US ---
HISTORY: Leg pain and swelling. Evaluate for DVT PHYSICIAN(S): Yong Womack MD. TECHNIQUE: Duplex sonography and color-flow Doppler with graded compression were used to evaluate the deep venous systems of both lower extremities. FINDINGS: The visualized deep venous systems of both lower extremities are sonographically normal and compressible. Normal wave forms and augmentation are seen. There is no sonographic evidence for deep venous thrombosis in the visualized segments of both lower extremities. IMPRESSION: No sonographic evidence for deep venous thrombosis in the visualized segments of both lower extremities.
--- NOTE | 2018-01-23 20:48 | CON ---
DATE: 01/23/2018 REASON FOR CONSULTATION: Low blood pressure, fatigue, ESRD. HISTORY OF PRESENT ILLNESS: An 78-year-old male known to me from outpatient hemodialysis. The patient was presented to the Emergency Room this morning with complaints of fatigue, weakness.. He also reported a nonhealing ulcer on his left fifth toe. In the Emergency Room, he was found to be hypotensive. Initial blood pressure was 104/44. Repeat blood pressure was 86/40. The patient was found to be afebrile. He was found to be somewhat lethargic. The patient received a bolus of 250 mL of normal saline in the Emergency Room. There was no improvement in the blood pressure. He got another bolus of 250 mL of saline, but the blood pressure was 87/35. The patient was evaluated by ICU. He has been accepted to the ICU. So, he is currently going to the ICU. He is awake, he is alert, but he is lethargic. He denies any chest pain. He denies any shortness of breath. He denies any pain in his foot. 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 FAMILY HISTORY: Hypertension and diabetes. SOCIAL HISTORY: Ex-smoker, no alcohol use, no IV drug abuse. ALLERGIES: NO KNOWN DRUG ALLERGIES. MEDICATIONS: Hydralazine 100 b.i.d., amlodipine 10, vancomycin 1 g Sunday, Sunday and Sunday, Flomax, Protonix 40, Namenda 5, losartan 100, insulin, gabapentin, Cardura, Aricept, Coreg, PhosLo, Lipitor, and aspirin. REVIEW OF SYSTEMS: All systems are reviewed, pertinent positives as mentioned in the history presenting illness, rest unremarkable. PHYSICAL EXAMINATION: GENERAL: Elderly male, lying in bed, in no acute distress. VITAL SIGNS: Blood pressure 104/49, heart rate 64, respiratory rate 18, temperature 98.4. HEENT: Normocephalic, atraumatic, positive pallor. NECK: Supple, no JVD. LUNGS: Bilateral equal air entry, bilateral distant breath sounds, bilateral rhonchi, no rales appreciated. CARDIAC: S1 and S2, regular rate and rhythm, positive murmur, no rub. ABDOMEN: Obese, distended, soft, nontender, bowel sounds present. EXTREMITIES: Nonhealing ulcer on the left lateral aspect of the fifth toe, ulcer at the medial aspect of the first toe of the left foot, dry skin, 1+ pitting edema. LABORATORY DATA: WBC 8, hemoglobin 9, hematocrit 29, platelets 191. Sodium 140, potassium 4, chloride 98, CO2 of 27, BUN 62, creatinine 8.2, glucose 109, calcium 7.8, phosphorus 5.6, magnesium 1.9. BNP 56,300, albumin 3.6, globulin 3. Chest x-ray. She has mild cardiomegaly and mild vascular congestion. CURRENT MEDICATIONS: Colace 100, doxycycline 100 every 12 inches, Protonix 40, aspirin 81, Tylenol, Xopenex, Zofran, normal saline, vancomycin 1.25 g IV piggyback given in the ER, Zosyn 2.25 g x1 dose given in the ER. ASSESSMENT: 1. Severe sepsis, hypotension. 2. Nonhealing ulcer, diabetic foot ulcer, left fifth toe. 3. Severe peripheral vascular disease. 4. History of osteomyelitis. 5. Hdy-cygqstc-hrmnbyold diabetes mellitus. 6. Coronary artery disease. 7. End-stage renal disease. 8. Anemia of chronic kidney disease. 9. Secondary hyperparathyroidism. 10. Decompensated congestive heart failure? PLAN: 1. Agree with admission to the ICU. Panculture. 2. Agree with empiric antibiotics to cover for possible osteomyelitis. 3. Monitor fingersticks and cover with insulin. 4. Will attempt dry ultrafiltration today and try to remove 1.5 kg. 5. Case is discussed with ICU staff at length, case is discussed with dialysis staff at length, case discussed with ICU residents. More than 35 minutes was spent in the care of this critically ill patient. Yadira Fox MD
[2018-01-23 20:50] LABS: TROPONIN I 0.03 ng/mL
--- NOTE | 2018-01-23 20:52 | CARD ---
APPROVED REPORT Date of service: 01/23/2018 EKG Measurement Heart [id number] <Conclusion> Electronic ventricular pacemaker
[2018-01-23] MEDS: Meropenem 500 MG in Sodium Chloride 0.9% 50 ML IVPB SCH (22:16)
[2018-01-24] MEDS: Levalbuterol 1.25 MG/3 ML Inhal Soln UD IH SCH ×2 (01:56→07:41)
[2018-01-24] MEDS: Pantoprazole 40 mg EC Tab PO SCH (05:16)
[2018-01-24] MEDS ORDERED: Darbepoetin Alfa 100 mcg/ml Inj IVP ONE (06:00)
[2018-01-24 07:06] LABS: ALB/GLOB RATIO 1.1 (1.1-1.8); ALBUMIN 3.4 g/dL (3.0-4.8); BILIRUBIN,DIRECT 0.4 mg/dL (0.0-0.4); CALCIUM 7.8 mg/dL (8.4-10.5)
[2018-01-24 07:10] LABS: BASO # 0.02 K/mm3 (0.0-2.0); BASO % 0.3 % (0.0-3.0); EOS # 0.1 (0.0-0.7); EOS % 1.7 % (1.5-5.0); GRAN # 5.87 (1.4-6.5); HEMOGLOBIN 9.1 g/dL (14.0-18.0); LYMPH # 1.1 (1.2-3.4); LYMPH % 15.1 % (22.0-35.0); MEAN CELL VOLUME 86.6 fl (80.0-105.0); MEAN CORPUSCULAR HEMOGLOBIN 26.5 pg (25.0-35.0); MEAN CORPUSCULAR HGB CONC 30.5 g/dl (31.0-37.0); MEAN PLATELET VOLUME 11.2 fl (7.0-11.0); MONO # 0.4 (0.1-0.6); MONO % 4.9 % (1.0-6.0); RBC 3.44 10^6/uL (3.5-6.1); RED CELL DISTRIBUTION WIDTH 17.9 % (11.5-14.5); WHITE BLOOD COUNT 7.5 10^3/ul (4.5-11.0)
--- NOTE | 2018-01-24 07:34 | CP.CCUPN ---
<Lori Ledezma - Last Filed: 01/24/18 12:08> CCU Subjective - Physician Review Subjective (Free Text): ICU Progress note for Dr. Adrian Ledezma, PGY 1 Patient seen and examined this morning at bedside. NAOE per nursing. Patient is resting comfortably in bed. BP has been stable overnight and he tolerated dialysis last night. 01/24/18 07:32 CCU Objective - Vital Signs / Intake & Output Vital Signs (Last 4 hours): Vital Signs Temp Pulse Resp BP Pulse Ox 01/24/18 07:15 66 103/35 L 81 L 01/24/18 07:10 65 34 H 123/52 L 95 01/24/18 07:00 61 25 H 94 L 01/24/18 06:00 62 25 H 94 L 01/24/18 05:15 53 L 19 129/50 L 92 L 01/24/18 05:00 61 25 H 123/47 L 93 L 01/24/18 04:45 62 24 116/47 L 93 L 01/24/18 04:31 61 26 H 122/50 L 91 L 01/24/18 04:15 97.9 F 67 26 H 117/44 L 91 L 01/24/18 04:00 60 25 H 132/51 L 93 L 01/24/18 03:45 60 24 111/47 L 93 L Intake and Output (Last 8hrs): Intake & Output 01/23/18 01/24/18 01/24/18 22:59 06:59 14:59 Intake Total 200 150 Output Total 1000 Balance 200 -850 Weight 210 lb 261 lb 5.76 oz Intake: IV 200 150 IVPB 200 150 Right Antecubital 0 Oral 0 Tube Feeding 0 TPN/PPN 0 Blood Product 0 Lipid 0 Albumin 0 Other 0 Output: Urine 0 Urine, Voided 0 Stool 0 Urine/Stool Mix 0 Emesis 0 Oral Regurgitation 0 Other 1000 Other: # Voids Urine, Voided 0 # Bowel Movements 0 - Physical Exam Head: Positive for: Atraumatic Mouth: Positive for: Moist Mucous Membranes Neck: Positive for: Normal Range of Motion Respiratory/Chest: Positive for: Good Air Exchange, Rales (at bases bilaterally) . Negative for: Respiratory Distress, Accessory Muscle Use, Tachypneic Cardiovascular: Positive for: Regular Rate and Rhythm. Negative for: Rub, Muffled Abdomen: Negative for: Tenderness, Rebound, Guarding Upper Extremity: Positive for: Normal ROM Lower Extremity: Positive for: Other (left foot; there is an superficial ulceration noted to left great toe; there is blueish discoloration to the left 5th toe with dime sized necrotic ulceration to the 5th toe. no erythema to foot or leg. ). Negative for: CALF TENDERNESS, NORMAL PULSES ( no palpable pulses felt in dorasal pedis or posterior tibial bilaterally. ), Normal ROM, Tenderness Neurological: Positive for: GCS=15 Skin: Positive for: Warm, Dry, Normal Color Psychiatric: Positive for: Alert, Oriented x 3 - Medications Active Medications: Active Medications Generic Name Dose Route Start Last Admin Trade Name Freq PRN Reason Stop Dose Admin Acetaminophen 650 mg 01/23/18 11:44 Tylenol 325mg Tab PO Q6 PRN TEMP>=99.5F Acetaminophen 650 mg 01/23/18 11:44 Tylenol 650 Mg Supp RC Q6H PRN TEMP>=99.5F Aspirin 81 mg 01/23/18 11:45 01/23/18 17:25 Ecotrin PO 81 mg DAILY JERE Administration Benzonatate 200 mg 01/23/18 14:00 01/23/18 18:17 Tessalon Perles PO Not Given TID JERE Dextrose 25 ml 01/23/18 15:48 Dextrose 50% Inj IV STAT PRN Hypoglycemia Protocol Protocol Docusate Sodium 100 mg 01/23/18 14:00 01/23/18 17:28 Colace PO 100 mg TID JEER Administration Heparin Sodium (Porcine) 5,000 units 01/23/18 16:00 01/24/18 05:00 Heparin SC Not Given Q8 JERE Protocol Doxycycline Hyclate 100 mg/ 100 mls @ 100 mls/hr 01/23/18 11:45 01/23/18 22: 16 Sodium Chloride IVPB 100 mls/hr Q12 JERE Administration Protocol Dextrose 1,000 mls @ 0 mls/hr 01/23/18 15:48 Dextrose 5% In Water 1000 Ml IV .Q0M PRN Hypoglycemia Protocol Protocol Per Protocol Meropenem 500 mg/ Sodium 50 mls @ 100 mls/hr 01/23/18 22:00 01/23/18 22:16 Chloride IVPB 01/30/18 22:01 100 mls/hr Q12 JERE Administration Protocol Insulin Human Regular 0 units 01/23/18 16:30 01/23/18 22:14 Humulin R Med SC Not Given ACHS [facility] Protocol Levalbuterol HCl 0.63 mg 01/23/18 14:00 01/24/18 01:56 Xopenex IH 0.63 mg [id number] JERE Administration Ondansetron HCl 4 mg 01/23/18 11:44 Zofran Inj IVP Q4H PRN Nausea/Vomiting Pantoprazole Sodium 40 mg 01/24/18 06:00 01/24/18 05:16 Protonix Ec Tab PO 40 mg 0600 JERE Administration - Patient Studies Lab Studies: Lab Studies 01/24/18 01/24/18 01/24/18 Range/Units 05:45 05:45 05:45 WBC 7.5 (4.5-11.0) 10^3/ul RBC 3.44 L (3.5-6.1) 10^6/uL Hgb 9.1 L (14.0-18.0) g/dL Hct 29.8 L (42.0-52.0) % MCV 86.6 (80.0-105.0) fl MCH 26.5 (25.0-35.0) pg MCHC 30.5 L (31.0-37.0) g/dl RDW 17.9 H (11.5-14.5) % Plt Count 199 (120.0-450.0) 10^3/uL MPV 11.2 H (7.0-11.0) fl Gran % 78.0 H (50.0-68.0) % Lymph % (Auto) 15.1 L (22.0-35.0) % [place] % (Auto) 4.9 (1.0-6.0) % Eos % (Auto) 1.7 (1.5-5.0) % Baso % (Auto) 0.3 (0.0-3.0) % Gran # 5.87 (1.4-6.5) Lymph # (Auto) 1.1 L (1.2-3.4) [place] # (Auto) 0.4 (0.1-0.6) Eos # (Auto) 0.1 (0.0-0.7) Baso # (Auto) 0.02 (0.0-2.0) K/mm3 APTT 35.9 (25.1-36.5) Seconds Sodium 143 (132-148) mmol/L Potassium 4.1 (3.6-5.0) mmol/L Chloride 100 (98-107) mmol/L Carbon Dioxide 26 (21-33) mmol/L Anion Gap 21 H (10-20) BUN 60 H (7-21) mg/dL Creatinine 8.1 H* (0.8-1.5) mg/dl Est GFR ( Amer) 8 Est GFR (Non-Af Amer) 6 POC Glucose (mg/dL) (65-110) mg/dL Random Glucose 76 (70-110) mg/dL Calcium 7.8 L (8.4-10.5) mg/dL Phosphorus 6.0 H (2.5-4.5) mg/dL Magnesium 1.8 (1.7-2.2) mg/dL Total Bilirubin 0.4 (0.2-1.3) mg/dL Direct Bilirubin 0.4 (0.0-0.4) mg/dL AST 19 (17-59) U/L ALT 16 (7-56) U/L Alkaline Phosphatase 89 (38-126) U/L Total Creatine Kinase (35-230) U/L Troponin I ng/mL C-React Prot High Sens (1.00-3.00) mg/L NT-Pro-B Natriuret Pep (0-450) pg/mL Total Protein 6.5 (5.8-8.3) g/dL Albumin 3.4 (3.0-4.8) g/dL Globulin 3.2 gm/dL Albumin/Globulin Ratio 1.1 (1.1-1.8) Triglycerides 101 (35-160) mg/dL Cholesterol 92 L (130-200) mg/dL LDL Cholesterol Direct 42 (0-129) mg/dL HDL Cholesterol 17 L (29-60) mg/dL Procalcitonin (0.19-0.49) NG/ML 01/23/18 01/23/18 01/23/18 Range/Units 22:12 20:23 17:20 WBC (4.5-11.0) 10^3/ul RBC (3.5-6.1) 10^6/uL Hgb (14.0-18.0) g/dL Hct (42.0-52.0) % MCV (80.0-105.0) fl MCH (25.0-35.0) pg MCHC (31.0-37.0) g/dl RDW (11.5-14.5) % Plt Count (120.0-450.0) 10^3/uL MPV (7.0-11.0) fl Gran % (50.0-68.0) % Lymph % (Auto) (22.0-35.0) % [place] % (Auto) (1.0-6.0) % Eos % (Auto) (1.5-5.0) % Baso % (Auto) (0.0-3.0) % Gran # (1.4-6.5) Lymph # (Auto) (1.2-3.4) [place] # (Auto) (0.1-0.6) Eos # (Auto) (0.0-0.7) Baso # (Auto) (0.0-2.0) K/mm3 APTT (25.1-36.5) Seconds Sodium (132-148) mmol/L Potassium (3.6-5.0) mmol/L Chloride (98-107) mmol/L Carbon Dioxide (21-33) mmol/L Anion Gap (10-20) BUN (7-21) mg/dL Creatinine (0.8-1.5) mg/dl Est GFR ( Amer) Est GFR (Non-Af Amer) POC Glucose (mg/dL) 114 H 87 (65-110) mg/dL Random Glucose (70-110) mg/dL Calcium (8.4-10.5) mg/dL Phosphorus (2.5-4.5) mg/dL Magnesium (1.7-2.2) mg/dL Total Bilirubin (0.2-1.3) mg/dL Direct Bilirubin (0.0-0.4) mg/dL AST (17-59) U/L ALT (7-56) U/L Alkaline Phosphatase (38-126) U/L Total Creatine Kinase 118 (35-230) U/L Troponin I 0.03 ng/mL C-React Prot High Sens (1.00-3.00) mg/L NT-Pro-B Natriuret Pep (0-450) pg/mL Total Protein (5.8-8.3) g/dL Albumin (3.0-4.8) g/dL Globulin gm/dL Albumin/Globulin Ratio (1.1-1.8) Triglycerides (35-160) mg/dL Cholesterol (130-200) mg/dL LDL Cholesterol Direct (0-129) mg/dL HDL Cholesterol (29-60) mg/dL Procalcitonin (0.19-0.49) NG/ML 01/23/18 01/23/18 01/23/18 Range/Units 16:10 13:20 12:30 WBC (4.5-11.0) 10^3/ul RBC (3.5-6.1) 10^6/uL Hgb (14.0-18.0) g/dL Hct (42.0-52.0) % MCV (80.0-105.0) fl MCH (25.0-35.0) pg MCHC (31.0-37.0) g/dl RDW (11.5-14.5) % Plt Count (120.0-450.0) 10^3/uL MPV (7.0-11.0) fl Gran % (50.0-68.0) % Lymph % (Auto) (22.0-35.0) % [place] % (Auto) (1.0-6.0) % Eos % (Auto) (1.5-5.0) % Baso % (Auto) (0.0-3.0) % Gran # (1.4-6.5) Lymph # (Auto) (1.2-3.4) [place] # (Auto) (0.1-0.6) Eos # (Auto) (0.0-0.7) Baso # (Auto) (0.0-2.0) K/mm3 APTT (25.1-36.5) Seconds Sodium (132-148) mmol/L Potassium (3.6-5.0) mmol/L Chloride (98-107) mmol/L Carbon Dioxide (21-33) mmol/L Anion Gap (10-20) BUN (7-21) mg/dL Creatinine (0.8-1.5) mg/dl Est GFR ( Amer) Est GFR (Non-Af Amer) POC Glucose (mg/dL) (65-110) mg/dL Random Glucose (70-110) mg/dL Calcium (8.4-10.5) mg/dL Phosphorus (2.5-4.5) mg/dL Magnesium (1.7-2.2) mg/dL Total Bilirubin (0.2-1.3) mg/dL Direct Bilirubin (0.0-0.4) mg/dL AST (17-59) U/L ALT (7-56) U/L Alkaline Phosphatase (38-126) U/L Total Creatine Kinase 135 (35-230) U/L Troponin I 0.03 ng/mL C-React Prot High Sens (1.00-3.00) mg/L NT-Pro-B Natriuret Pep 40362 H (0-450) pg/mL Total Protein (5.8-8.3) g/dL Albumin (3.0-4.8) g/dL Globulin gm/dL Albumin/Globulin Ratio (1.1-1.8) Triglycerides (35-160) mg/dL Cholesterol (130-200) mg/dL LDL Cholesterol Direct (0-129) mg/dL HDL Cholesterol (29-60) mg/dL Procalcitonin 0.30 (0.19-0.49) NG/ML 01/23/18 Range/Units 12:30 WBC (4.5-11.0) 10^3/ul RBC (3.5-6.1) 10^6/uL Hgb (14.0-18.0) g/dL Hct (42.0-52.0) % MCV (80.0-105.0) fl MCH (25.0-35.0) pg MCHC (31.0-37.0) g/dl RDW (11.5-14.5) % Plt Count (120.0-450.0) 10^3/uL MPV (7.0-11.0) fl Gran % (50.0-68.0) % Lymph % (Auto) (22.0-35.0) % [place] % (Auto) (1.0-6.0) % Eos % (Auto) (1.5-5.0) % Baso % (Auto) (0.0-3.0) % Gran # (1.4-6.5) Lymph # (Auto) (1.2-3.4) [place] # (Auto) (0.1-0.6) Eos # (Auto) (0.0-0.7) Baso # (Auto) (0.0-2.0) K/mm3 APTT (25.1-36.5) Seconds Sodium (132-148) mmol/L Potassium (3.6-5.0) mmol/L Chloride (98-107) mmol/L Carbon Dioxide (21-33) mmol/L Anion Gap (10-20) BUN (7-21) mg/dL Creatinine (0.8-1.5) mg/dl Est GFR ( Amer) Est GFR (Non-Af Amer) POC Glucose (mg/dL) (65-110) mg/dL Random Glucose (70-110) mg/dL Calcium (8.4-10.5) mg/dL Phosphorus (2.5-4.5) mg/dL Magnesium (1.7-2.2) mg/dL Total Bilirubin (0.2-1.3) mg/dL Direct Bilirubin (0.0-0.4) mg/dL AST (17-59) U/L ALT (7-56) U/L Alkaline Phosphatase (38-126) U/L Total Creatine Kinase (35-230) U/L Troponin I ng/mL C-React Prot High Sens > 15.00 H (1.00-3.00) mg/L NT-Pro-B Natriuret Pep (0-450) pg/mL Total Protein (5.8-8.3) g/dL Albumin (3.0-4.8) g/dL Globulin gm/dL Albumin/Globulin Ratio (1.1-1.8) Triglycerides (35-160) mg/dL Cholesterol (130-200) mg/dL LDL Cholesterol Direct (0-129) mg/dL HDL Cholesterol (29-60) mg/dL Procalcitonin (0.19-0.49) NG/ML Laboratory Results - last 24 hr 01/23/18 01/23/18 01/23/18 12:30 12:30 13:20 WBC RBC Hgb Hct MCV MCH MCHC RDW Plt Count MPV Gran % Lymph % (Auto) [place] % (Auto) Eos % (Auto) Baso % (Auto) Gran # Lymph # (Auto) [place] # (Auto) Eos # (Auto) Baso # (Auto) APTT Sodium Potassium Chloride Carbon Dioxide Anion Gap BUN Creatinine Est GFR ( Amer) Est GFR (Non-Af Amer) POC Glucose (mg/dL) Random Glucose Calcium Phosphorus Magnesium Total Bilirubin Direct Bilirubin AST ALT Alkaline Phosphatase Total Creatine Kinase Troponin I C-React Prot High Sens > 15.00 H NT-Pro-B Natriuret Pep 40308 H Total Protein Albumin Globulin Albumin/Globulin Ratio Triglycerides Cholesterol LDL Cholesterol Direct HDL Cholesterol Procalcitonin 0.30 01/23/18 01/23/18 01/23/18 16:10 17:20 20:23 WBC RBC Hgb Hct MCV MCH MCHC RDW Plt Count MPV Gran % Lymph % (Auto) [place] % (Auto) Eos % (Auto) Baso % (Auto) Gran # Lymph # (Auto) [place] # (Auto) Eos # (Auto) Baso # (Auto) APTT Sodium Potassium Chloride Carbon Dioxide Anion Gap BUN Creatinine Est GFR ( Amer) Est GFR (Non-Af Amer) POC Glucose (mg/dL) 87 Random Glucose Calcium Phosphorus Magnesium Total Bilirubin Direct Bilirubin AST ALT Alkaline Phosphatase Total Creatine Kinase 135 118 Troponin I 0.03 0.03 C-React Prot High Sens NT-Pro-B Natriuret Pep Total Protein Albumin Globulin Albumin/Globulin Ratio Triglycerides Cholesterol LDL Cholesterol Direct HDL Cholesterol Procalcitonin 01/23/18 01/24/18 01/24/18 22:12 05:45 05:45 WBC 7.5 RBC 3.44 L Hgb 9.1 L Hct 29.8 L MCV 86.6 MCH 26.5 MCHC 30.5 L RDW 17.9 H Plt Count 199 MPV 11.2 H Gran % 78.0 H Lymph % (Auto) 15.1 L [place] % (Auto) 4.9 Eos % (Auto) 1.7 Baso % (Auto) 0.3 Gran # 5.87 Lymph # (Auto) 1.1 L [place] # (Auto) 0.4 Eos # (Auto) 0.1 Baso # (Auto) 0.02 APTT Sodium 143 Potassium 4.1 Chloride 100 Carbon Dioxide 26 Anion Gap 21 H BUN 60 H Creatinine 8.1 H* Est GFR ( Amer) 8 Est GFR (Non-Af Amer) 6 POC Glucose (mg/dL) 114 H Random Glucose 76 Calcium 7.8 L Phosphorus 6.0 H Magnesium 1.8 Total Bilirubin 0.4 Direct Bilirubin 0.4 AST 19 ALT 16 Alkaline Phosphatase 89 Total Creatine Kinase Troponin I C-React Prot High Sens NT-Pro-B Natriuret Pep Total Protein 6.5 Albumin 3.4 Globulin 3.2 Albumin/Globulin Ratio 1.1 Triglycerides 101 Cholesterol 92 L LDL Cholesterol Direct 42 HDL Cholesterol 17 L Procalcitonin 01/24/18 05:45 WBC RBC Hgb Hct MCV MCH MCHC RDW Plt Count MPV Gran % Lymph % (Auto) [place] % (Auto) Eos % (Auto) Baso % (Auto) Gran # Lymph # (Auto) [place] # (Auto) Eos # (Auto) Baso # (Auto) APTT 35.9 Sodium Potassium Chloride Carbon Dioxide Anion Gap BUN Creatinine Est GFR ( Amer) Est GFR (Non-Af Amer) POC Glucose (mg/dL) Random Glucose Calcium Phosphorus Magnesium Total Bilirubin Direct Bilirubin AST ALT Alkaline Phosphatase Total Creatine Kinase Troponin I C-React Prot High Sens NT-Pro-B Natriuret Pep Total Protein Albumin Globulin Albumin/Globulin Ratio Triglycerides Cholesterol LDL Cholesterol Direct HDL Cholesterol Procalcitonin Fingerstick Blood Sugar Results: 114 Assessment/Plan - Assessment and Plan (Free Text) Assessment: 78 yr old male PMH HTN, CHF, ESRD (HHD), recent admission for osteomyelitis ( treated with IV merrem and Vanc) with hypotension and left toe wound. Patient received 500 cc bolus in ED with minimal improvement of his BP. He is alert and oriented on interview in the ED. Blood, urine and wound cultures ordered. Sepsis is considered due to left foot wound and history of osteomyelitis. CXR shows cardiomegaly and vascular congestion but no pulmonary effusion. EF on ECHO in November 61%. BNP >11197. Patient to have dialysis today, will remove additional fluid. No source of Hemorrhage identified no gross bleeding. Patient on numerous BP meds at home may consider poor clearance of home meds for cause of hypotension. patient neuro-intact with no falls; neurogenic shock unlikely. LE US negative and no right heart strain on EKG makes obstructive shock 2/2 PE unlikely. Patient admitted to the ICU. Patient normotensive overnight, mild hypotension during dialysis, did not require pressors. Patient will recieve dialysis again this morning and will be cleared for transfer out of ICU pending CT results. Plan: Neuro: - AOx3 - moves all extremities spontaneously past midline - no gross deficits, no aphasia or dysarthria - denies falls or head injury - continue to monitor Cardio: - BNP 58395, previous [id number] - PMH CHF, PAD EF 65% - Will need pressors if unable to maintain BP for dialysis - Hold home BP meds in setting of hypotension - remove additional fluid during dialysis decrease CHF exacerbation - cxr shows vascular congestion and mild cardiomegaly, no pulmonary edema or effusion noted Pulm: - hx of CHF - lungs cta on exam - CXR shows no signs of pna/infiltrate - EKG shows no right heart strain - sat >90% on RA, maintain O2>90% GI: - denies abdominal pain - abdomen soft nontender, no guarding - LFTS show no abnormalities - GI ppx protonix Renal: - ESRD on dialysis - fistula in left hand, palpable thrill - K 4.1, Phos 6 - BUN/Cr 60/8.1, baseline Cr approximately 6 - receiving dialysis again today Endo: - maintain normoglycemia - ACHS BS checks - sliding scale insulin - continue to monitor Heme: - hgb/hct 9.1/29.8 - no signs of active bleeding - will continue to monitor ID - patient completed 28 days IV Merrem and vanc last month at home after admission in November - given Vanc and Zosyn in ED - blood cx (2), urine cx (1), wound cx (1); will follow results - WBC 7.5, mild Granulocytosis 78% - cxr negative for infectious signs - UA pending - ID Dr. 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 Adrian Ledezma, PGY 1 - Date & Time Date: 01/24/18 Time: 07:15 <Papito Campbell - Last Filed: 01/24/18 14:10> CCU Objective - Vital Signs / Intake & Output Vital Signs (Last 4 hours): Vital Signs Temp 01/24/18 12:00 98.3 F Intake and Output (Last 8hrs): Intake & Output 01/23/18 01/24/18 01/24/18 22:59 06:59 14:59 Intake Total 200 150 Output Total 1000 Balance 200 -850 Weight 210 lb 261 lb 5.76 oz Intake: IV 200 150 IVPB 200 150 Right Antecubital 0 Oral 0 Tube Feeding 0 TPN/PPN 0 Blood Product 0 Lipid 0 Albumin 0 Other 0 Output: Urine 0 Urine, Voided 0 Stool 0 Urine/Stool Mix 0 Emesis 0 Oral Regurgitation 0 Other 1000 Other: # Voids Urine, Voided 0 # Bowel Movements 0 - Medications Active Medications: Active Medications Generic Name Dose Route Start Last Admin Trade Name Freq PRN Reason Stop Dose Admin Acetaminophen 650 mg 01/23/18 11:44 Tylenol 325mg Tab PO Q6 PRN TEMP>=99.5F Acetaminophen 650 mg 01/23/18 11:44 Tylenol 650 Mg Supp RC Q6H PRN TEMP>=99.5F Aspirin 81 mg 01/23/18 11:45 01/24/18 09:46 Ecotrin PO 81 mg DAILY JERE Administration Benzonatate 200 mg 01/23/18 14:00 01/24/18 13:05 Tessalon Perles PO Not Given TID JERE Dextrose 25 ml 01/23/18 15:48 Dextrose 50% Inj IV STAT PRN Hypoglycemia Protocol Protocol Docusate Sodium 100 mg 01/23/18 14:00 01/24/18 13:04 Colace PO Not Given TID JERE Heparin Sodium (Porcine) 5,000 units 01/23/18 16:00 01/24/18 05:00 Heparin SC Not Given Q8 JERE Protocol Doxycycline Hyclate 100 mg/ 100 mls @ 100 mls/hr 01/23/18 11:45 01/24/18 09: 44 Sodium Chloride IVPB 100 mls/hr Q12 JERE Administration Protocol Dextrose 1,000 mls @ 0 mls/hr 01/23/18 15:48 Dextrose 5% In Water 1000 Ml IV .Q0M PRN Hypoglycemia Protocol Protocol Per Protocol Meropenem 500 mg/ Sodium 50 mls @ 100 mls/hr 01/23/18 22:00 01/24/18 09:44 Chloride IVPB 01/30/18 22:01 100 mls/hr Q12 JERE Administration Protocol Insulin Human Regular 0 units 01/23/18 16:30 01/24/18 11:39 Humulin R Med SC Not Given ACHS JERE Protocol Levalbuterol HCl 0.63 mg 01/24/18 13:29 01/24/18 13:32 Xopenex IH 0.63 mg [id number] JERE Administration Ondansetron HCl 4 mg 01/23/18 11:44 Zofran Inj IVP Q4H PRN Nausea/Vomiting Pantoprazole Sodium 40 mg 01/24/18 06:00 01/24/18 05:16 Protonix Ec Tab PO 40 mg 0600 JERE Administration - Patient Studies Lab Studies: Lab Studies 01/24/18 01/24/18 01/24/18 Range/Units 11:30 09:00 09:00 WBC (4.5-11.0) 10^3/ul RBC (3.5-6.1) 10^6/uL Hgb (14.0-18.0) g/dL Hct (42.0-52.0) % MCV (80.0-105.0) fl MCH (25.0-35.0) pg MCHC (31.0-37.0) g/dl RDW (11.5-14.5) % Plt Count (120.0-450.0) 10^3/uL MPV (7.0-11.0) fl Gran % (50.0-68.0) % Lymph % (Auto) (22.0-35.0) % [place] % (Auto) (1.0-6.0) % Eos % (Auto) (1.5-5.0) % Baso % (Auto) (0.0-3.0) % Gran # (1.4-6.5) Lymph # (Auto) (1.2-3.4) [place] # (Auto) (0.1-0.6) Eos # (Auto) (0.0-0.7) Baso # (Auto) (0.0-2.0) K/mm3 ESR 57 H (0.00-15.0) mm/hr APTT (25.1-36.5) Seconds Sodium (132-148) mmol/L Potassium (3.6-5.0) mmol/L Chloride (98-107) mmol/L Carbon Dioxide (21-33) mmol/L Anion Gap (10-20) BUN (7-21) mg/dL Creatinine (0.8-1.5) mg/dl Est GFR ( Amer) Est GFR (Non-Af Amer) POC Glucose (mg/dL) 137 H (65-110) mg/dL Random Glucose (70-110) mg/dL Hemoglobin A1c (4.2-6.5) % Calcium (8.4-10.5) mg/dL Phosphorus (2.5-4.5) mg/dL Magnesium (1.7-2.2) mg/dL Total Bilirubin (0.2-1.3) mg/dL Direct Bilirubin (0.0-0.4) mg/dL AST (17-59) U/L ALT (7-56) U/L Alkaline Phosphatase (38-126) U/L Total Creatine Kinase (35-230) U/L Troponin I ng/mL C-React Prot High Sens > 15.00 H (1.00-3.00) mg/L NT-Pro-B Natriuret Pep (0-450) pg/mL Total Protein (5.8-8.3) g/dL Albumin (3.0-4.8) g/dL Globulin gm/dL Albumin/Globulin Ratio (1.1-1.8) Triglycerides (35-160) mg/dL Cholesterol (130-200) mg/dL LDL Cholesterol Direct (0-129) mg/dL HDL Cholesterol (29-60) mg/dL Procalcitonin (0.19-0.49) NG/ML 01/24/18 01/24/18 01/24/18 Range/Units 07:34 05:45 05:45 WBC (4.5-11.0) 10^3/ul RBC (3.5-6.1) 10^6/uL Hgb (14.0-18.0) g/dL Hct (42.0-52.0) % MCV (80.0-105.0) fl MCH (25.0-35.0) pg MCHC (31.0-37.0) g/dl RDW (11.5-14.5) % Plt Count (120.0-450.0) 10^3/uL MPV (7.0-11.0) fl Gran % (50.0-68.0) % Lymph % (Auto) (22.0-35.0) % [place] % (Auto) (1.0-6.0) % Eos % (Auto) (1.5-5.0) % Baso % (Auto) (0.0-3.0) % Gran # (1.4-6.5) Lymph # (Auto) (1.2-3.4) [place] # (Auto) (0.1-0.6) Eos # (Auto) (0.0-0.7) Baso # (Auto) (0.0-2.0) K/mm3 ESR (0.00-15.0) mm/hr APTT 35.9 (25.1-36.5) Seconds Sodium (132-148) mmol/L Potassium (3.6-5.0) mmol/L Chloride (98-107) mmol/L Carbon Dioxide (21-33) mmol/L Anion Gap (10-20) BUN (7-21) mg/dL Creatinine (0.8-1.5) mg/dl Est GFR ( Amer) Est GFR (Non-Af Amer) POC Glucose (mg/dL) 64 L (65-110) mg/dL Random Glucose (70-110) mg/dL Hemoglobin A1c 6.0 (4.2-6.5) % Calcium (8.4-10.5) mg/dL Phosphorus (2.5-4.5) mg/dL Magnesium (1.7-2.2) mg/dL Total Bilirubin (0.2-1.3) mg/dL Direct Bilirubin (0.0-0.4) mg/dL AST (17-59) U/L ALT (7-56) U/L Alkaline Phosphatase (38-126) U/L Total Creatine Kinase (35-230) U/L Troponin I ng/mL C-React Prot High Sens (1.00-3.00) mg/L NT-Pro-B Natriuret Pep (0-450) pg/mL Total Protein (5.8-8.3) g/dL Albumin (3.0-4.8) g/dL Globulin gm/dL Albumin/Globulin Ratio (1.1-1.8) Triglycerides (35-160) mg/dL Cholesterol (130-200) mg/dL LDL Cholesterol Direct (0-129) mg/dL HDL Cholesterol (29-60) mg/dL Procalcitonin (0.19-0.49) NG/ML 01/24/18 01/24/18 01/23/18 Range/Units 05:45 05:45 22:12 WBC 7.5 (4.5-11.0) 10^3/ul RBC 3.44 L (3.5-6.1) 10^6/uL Hgb 9.1 L (14.0-18.0) g/dL Hct 29.8 L (42.0-52.0) % MCV 86.6 (80.0-105.0) fl MCH 26.5 (25.0-35.0) pg MCHC 30.5 L (31.0-37.0) g/dl RDW 17.9 H (11.5-14.5) % Plt Count 199 (120.0-450.0) 10^3/uL MPV 11.2 H (7.0-11.0) fl Gran % 78.0 H (50.0-68.0) % Lymph % (Auto) 15.1 L (22.0-35.0) % [place] % (Auto) 4.9 (1.0-6.0) % Eos % (Auto) 1.7 (1.5-5.0) % Baso % (Auto) 0.3 (0.0-3.0) % Gran # 5.87 (1.4-6.5) Lymph # (Auto) 1.1 L (1.2-3.4) [place] # (Auto) 0.4 (0.1-0.6) Eos # (Auto) 0.1 (0.0-0.7) Baso # (Auto) 0.02 (0.0-2.0) K/mm3 ESR (0.00-15.0) mm/hr APTT (25.1-36.5) Seconds Sodium 143 (132-148) mmol/L Potassium 4.1 (3.6-5.0) mmol/L Chloride 100 (98-107) mmol/L Carbon Dioxide 26 (21-33) mmol/L Anion Gap 21 H (10-20) BUN 60 H (7-21) mg/dL Creatinine 8.1 H* (0.8-1.5) mg/dl Est GFR ( Amer) 8 Est GFR (Non-Af Amer) 6 POC Glucose (mg/dL) 114 H (65-110) mg/dL Random Glucose 76 (70-110) mg/dL Hemoglobin A1c (4.2-6.5) % Calcium 7.8 L (8.4-10.5) mg/dL Phosphorus 6.0 H (2.5-4.5) mg/dL Magnesium 1.8 (1.7-2.2) mg/dL Total Bilirubin 0.4 (0.2-1.3) mg/dL Direct Bilirubin 0.4 (0.0-0.4) mg/dL AST 19 (17-59) U/L ALT 16 (7-56) U/L Alkaline Phosphatase 89 (38-126) U/L Total Creatine Kinase (35-230) U/L Troponin I ng/mL C-React Prot High Sens (1.00-3.00) mg/L NT-Pro-B Natriuret Pep (0-450) pg/mL Total Protein 6.5 (5.8-8.3) g/dL Albumin 3.4 (3.0-4.8) g/dL Globulin 3.2 gm/dL Albumin/Globulin Ratio 1.1 (1.1-1.8) Triglycerides 101 (35-160) mg/dL Cholesterol 92 L (130-200) mg/dL LDL Cholesterol Direct 42 (0-129) mg/dL HDL Cholesterol 17 L (29-60) mg/dL Procalcitonin (0.19-0.49) NG/ML 01/23/18 01/23/18 01/23/18 Range/Units 20:23 17:20 16:10 WBC (4.5-11.0) 10^3/ul RBC (3.5-6.1) 10^6/uL Hgb (14.0-18.0) g/dL Hct (42.0-52.0) % MCV (80.0-105.0) fl MCH (25.0-35.0) pg MCHC (31.0-37.0) g/dl RDW (11.5-14.5) % Plt Count (120.0-450.0) 10^3/uL MPV (7.0-11.0) fl Gran % (50.0-68.0) % Lymph % (Auto) (22.0-35.0) % [place] % (Auto) (1.0-6.0) % Eos % (Auto) (1.5-5.0) % Baso % (Auto) (0.0-3.0) % Gran # (1.4-6.5) Lymph # (Auto) (1.2-3.4) [place] # (Auto) (0.1-0.6) Eos # (Auto) (0.0-0.7) Baso # (Auto) (0.0-2.0) K/mm3 ESR (0.00-15.0) mm/hr APTT (25.1-36.5) Seconds Sodium (132-148) mmol/L Potassium (3.6-5.0) mmol/L Chloride (98-107) mmol/L Carbon Dioxide (21-33) mmol/L Anion Gap (10-20) BUN (7-21) mg/dL Creatinine (0.8-1.5) mg/dl Est GFR ( Amer) Est GFR (Non-Af Amer) POC Glucose (mg/dL) 87 (65-110) mg/dL Random Glucose (70-110) mg/dL Hemoglobin A1c (4.2-6.5) % Calcium (8.4-10.5) mg/dL Phosphorus (2.5-4.5) mg/dL Magnesium (1.7-2.2) mg/dL Total Bilirubin (0.2-1.3) mg/dL Direct Bilirubin (0.0-0.4) mg/dL AST (17-59) U/L ALT (7-56) U/L Alkaline Phosphatase (38-126) U/L Total Creatine Kinase 118 135 (35-230) U/L Troponin I 0.03 0.03 ng/mL C-React Prot High Sens (1.00-3.00) mg/L NT-Pro-B Natriuret Pep (0-450) pg/mL Total Protein (5.8-8.3) g/dL Albumin (3.0-4.8) g/dL Globulin gm/dL Albumin/Globulin Ratio (1.1-1.8) Triglycerides (35-160) mg/dL Cholesterol (130-200) mg/dL LDL Cholesterol Direct (0-129) mg/dL HDL Cholesterol (29-60) mg/dL Procalcitonin (0.19-0.49) NG/ML 01/23/18 01/23/18 01/23/18 Range/Units 13:20 12:30 12:30 WBC (4.5-11.0) 10^3/ul RBC (3.5-6.1) 10^6/uL Hgb (14.0-18.0) g/dL Hct (42.0-52.0) % MCV (80.0-105.0) fl MCH (25.0-35.0) pg MCHC (31.0-37.0) g/dl RDW (11.5-14.5) % Plt Count (120.0-450.0) 10^3/uL MPV (7.0-11.0) fl Gran % (50.0-68.0) % Lymph % (Auto) (22.0-35.0) % [place] % (Auto) (1.0-6.0) % Eos % (Auto) (1.5-5.0) % Baso % (Auto) (0.0-3.0) % Gran # (1.4-6.5) Lymph # (Auto) (1.2-3.4) [place] # (Auto) (0.1-0.6) Eos # (Auto) (0.0-0.7) Baso # (Auto) (0.0-2.0) K/mm3 ESR (0.00-15.0) mm/hr APTT (25.1-36.5) Seconds Sodium (132-148) mmol/L Potassium (3.6-5.0) mmol/L Chloride (98-107) mmol/L Carbon Dioxide (21-33) mmol/L Anion Gap (10-20) BUN (7-21) mg/dL Creatinine (0.8-1.5) mg/dl Est GFR ( Amer) Est GFR (Non-Af Amer) POC Glucose (mg/dL) (65-110) mg/dL Random Glucose (70-110) mg/dL Hemoglobin A1c (4.2-6.5) % Calcium (8.4-10.5) mg/dL Phosphorus (2.5-4.5) mg/dL Magnesium (1.7-2.2) mg/dL Total Bilirubin (0.2-1.3) mg/dL Direct Bilirubin (0.0-0.4) mg/dL AST (17-59) U/L ALT (7-56) U/L Alkaline Phosphatase (38-126) U/L Total Creatine Kinase (35-230) U/L Troponin I ng/mL C-React Prot High Sens > 15.00 H (1.00-3.00) mg/L NT-Pro-B Natriuret Pep 42290 H (0-450) pg/mL Total Protein (5.8-8.3) g/dL Albumin (3.0-4.8) g/dL Globulin gm/dL Albumin/Globulin Ratio (1.1-1.8) Triglycerides (35-160) mg/dL Cholesterol (130-200) mg/dL LDL Cholesterol Direct (0-129) mg/dL HDL Cholesterol (29-60) mg/dL Procalcitonin 0.30 (0.19-0.49) NG/ML Laboratory Results - last 24 hr 01/23/18 01/23/18 01/23/18 12:30 12:30 13:20 WBC RBC Hgb Hct MCV MCH MCHC RDW Plt Count MPV Gran % Lymph % (Auto) [place] % (Auto) Eos % (Auto) Baso % (Auto) Gran # Lymph # (Auto) [place] # (Auto) Eos # (Auto) Baso # (Auto) ESR APTT Sodium Potassium Chloride Carbon Dioxide Anion Gap BUN Creatinine Est GFR ( Amer) Est GFR (Non-Af Amer) POC Glucose (mg/dL) Random Glucose Hemoglobin A1c Calcium Phosphorus Magnesium Total Bilirubin Direct Bilirubin AST ALT Alkaline Phosphatase Total Creatine Kinase Troponin I C-React Prot High Sens > 15.00 H NT-Pro-B Natriuret Pep 13738 H Total Protein Albumin Globulin Albumin/Globulin Ratio Triglycerides Cholesterol LDL Cholesterol Direct HDL Cholesterol Procalcitonin 0.30 01/23/18 01/23/18 01/23/18 16:10 17:20 20:23 WBC RBC Hgb Hct MCV MCH MCHC RDW Plt Count MPV Gran % Lymph % (Auto) [place] % (Auto) Eos % (Auto) Baso % (Auto) Gran # Lymph # (Auto) [place] # (Auto) Eos # (Auto) Baso # (Auto) ESR APTT Sodium Potassium Chloride Carbon Dioxide Anion Gap BUN Creatinine Est GFR ( Amer) Est GFR (Non-Af Amer) POC Glucose (mg/dL) 87 Random Glucose Hemoglobin A1c Calcium Phosphorus Magnesium Total Bilirubin Direct Bilirubin AST ALT Alkaline Phosphatase Total Creatine Kinase 135 118 Troponin I 0.03 0.03 C-React Prot High Sens NT-Pro-B Natriuret Pep Total Protein Albumin Globulin Albumin/Globulin Ratio Triglycerides Cholesterol LDL Cholesterol Direct HDL Cholesterol Procalcitonin 01/23/18 01/24/18 01/24/18 22:12 05:45 05:45 WBC 7.5 RBC 3.44 L Hgb 9.1 L Hct 29.8 L MCV 86.6 MCH 26.5 MCHC 30.5 L RDW 17.9 H Plt Count 199 MPV 11.2 H Gran % 78.0 H Lymph % (Auto) 15.1 L [place] % (Auto) 4.9 Eos % (Auto) 1.7 Baso % (Auto) 0.3 Gran # 5.87 Lymph # (Auto) 1.1 L [place] # (Auto) 0.4 Eos # (Auto) 0.1 Baso # (Auto) 0.02 ESR APTT Sodium 143 Potassium 4.1 Chloride 100 Carbon Dioxide 26 Anion Gap 21 H BUN 60 H Creatinine 8.1 H* Est GFR ( Amer) 8 Est GFR (Non-Af Amer) 6 POC Glucose (mg/dL) 114 H Random Glucose 76 Hemoglobin A1c Calcium 7.8 L Phosphorus 6.0 H Magnesium 1.8 Total Bilirubin 0.4 Direct Bilirubin 0.4 AST 19 ALT 16 Alkaline Phosphatase 89 Total Creatine Kinase Troponin I C-React Prot High Sens NT-Pro-B Natriuret Pep Total Protein 6.5 Albumin 3.4 Globulin 3.2 Albumin/Globulin Ratio 1.1 Triglycerides 101 Cholesterol 92 L LDL Cholesterol Direct 42 HDL Cholesterol 17 L Procalcitonin 01/24/18 01/24/18 01/24/18 05:45 05:45 07:34 WBC RBC Hgb Hct MCV MCH MCHC RDW Plt Count MPV Gran % Lymph % (Auto) [place] % (Auto) Eos % (Auto) Baso % (Auto) Gran # Lymph # (Auto) [place] # (Auto) Eos # (Auto) Baso # (Auto) ESR APTT 35.9 Sodium Potassium Chloride Carbon Dioxide Anion Gap BUN Creatinine Est GFR ( Amer) Est GFR (Non-Af Amer) POC Glucose (mg/dL) 64 L Random Glucose Hemoglobin A1c 6.0 Calcium Phosphorus Magnesium Total Bilirubin Direct Bilirubin AST ALT Alkaline Phosphatase Total Creatine Kinase Troponin I C-React Prot High Sens NT-Pro-B Natriuret Pep Total Protein Albumin Globulin Albumin/Globulin Ratio Triglycerides Cholesterol LDL Cholesterol Direct HDL Cholesterol Procalcitonin 01/24/18 01/24/18 01/24/18 09:00 09:00 11:30 WBC RBC Hgb Hct MCV MCH MCHC RDW Plt Count MPV Gran % Lymph % (Auto) [place] % (Auto) Eos % (Auto) Baso % (Auto) Gran # Lymph # (Auto) [place] # (Auto) Eos # (Auto) Baso # (Auto) ESR 57 H APTT Sodium Potassium Chloride Carbon Dioxide Anion Gap BUN Creatinine Est GFR ( Amer) Est GFR (Non-Af Amer) POC Glucose (mg/dL) 137 H Random Glucose Hemoglobin A1c Calcium Phosphorus Magnesium Total Bilirubin Direct Bilirubin AST ALT Alkaline Phosphatase Total Creatine Kinase Troponin I C-React Prot High Sens > 15.00 H NT-Pro-B Natriuret Pep Total Protein Albumin Globulin Albumin/Globulin Ratio Triglycerides Cholesterol LDL Cholesterol Direct HDL Cholesterol Procalcitonin Critical Care Progress Note - Nutrition Nutrition: Nutrition Category Date Time Status Liquid Diet [DIET] Diets 01/24/18 Lunch Ordered Assessment/Plan - Assessment and Plan (Free Text) Plan: Patient seen and examined on rounds with resident, agree with note with following additions/exceptions: Patient is 78yo male w/PMH HTN, CHF, ESRD on HD, recent admission for osteomyelitis presented with hypotension and left toe wound. Never required pressors. Currently afebrile, BP stable, comfortable in NAD, SBP 137, doing well, tolerating HD. No overt source of infection on CT C/A/P, possible left lower extremity infection on broad spectrum abx, ID following. No major complaints. Hypotnesion possibly due to poor clearance of BP meds, which have been stopped, and patient has currently stable BP Hypotension, resolved ESRD on HD CHF HTN Recommend: - supp o2 as needed, duonebs PRN - follow up cultures, ID - cont with abx as per ID - hold BP meds - HD as per renal - FS control - GI ppx - DVT ppx - Follow up podiatry - transfer to telemetry, stable
[2018-01-24] MEDS: Insulin Reg-MEDIUM-Coverage SC SCH ×3 (07:36→18:00)
--- NOTE | 2018-01-24 07:43 | HP ---
HISTORY OF PRESENT ILLNESS: The patient is an 78-year-old who was brought to the [facility] Emergency Room from the wound care center where the patient was found to be hypotensive. The patient has been under care in the wound care center for his left foot osteomyelitis, where the patient has been receiving IV meropenem. The patient was brought to the emergency room from the wound care center for evaluation of hypotension. The patient was seen in stretcher #5 in the emergency room. Please refer to the detailed history and physical examination by the medical doctor and the forge hand. The patient was seen and evaluated in stretcher #5. Vital signs, lab data, and diagnostic test results were reviewed. Case management discussed with the medical doctor and the ER staff. IMPRESSION: 1. History of left foot osteomyelitis, status post intravenous antibiotic treatment. 2. End-stage renal disease, hemodialysis dependent. 3. History of hypertension. 4. Persistent refractory hypotension, etiology undetermined. 5. Hypoxemia. 6. Normocytic anemia with granulocytosis. 7. Elevated BNP, etiology undetermined. 8. Elevated C-reactive protein. 9. Peripheral vascular disease of the lower extremity. 10. Bilateral lower extremity venous stasis. 11. Gait dysfunction. 12. Deconditioning. 13. Cardiomegaly with mild pulmonary vascular congestion. 14. History of dementia. 15. History of permanent pacemaker implant. 16. History of prostatic hypertrophy, history of hypertriglyceridemia, history of secondary hyperparathyroidism. 17. Insulin-requiring diabetes mellitus. 18. Sick sinus syndrome. 19. History of left foot toe amputation. 20. Diabetic foot ulcer. 21. Left upper extremity arteriovenous fistula. 22. Left hand finger amputation. 23. History of nicotine dependence. 24. Sepsis. 25. Pneumonia. 26. Pulmonary hypertension with moderate concentric left ventricular hypertrophy. 27. Moderate mitral annular calcification. 28. Moderate pulmonary hypertension with right ventricular systolic pressure of 53 mmHg. 29. History of respiratory failure. 30. Oropharyngeal candidiasis. 31. Macroglossia. 32. Hypovitaminosis D. 33. History of sepsis secondary to healthcare-associated pneumonia, epiglottitis, and oropharyngeal candidiasis. 34. Uncontrolled diabetes mellitus. 35. History of BiPAP-requiring respiratory failure. 36. Obesity. 37. Hyperprocalcitoninemia . 38. Sinusitis. 39. History of chronic obstructive pulmonary disease exacerbation. 40. 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 41. Pulmonary emphysema. PLAN: At this time, the patient will be admitted to [facility] Intensive Care Unit. The patient was seen and examined in the emergency room. The patient was seen and evaluated. The patient's management was extensively discussed with the medical doctor. The patient has been ordered repeat serial labs, hemoglobin A1c, lipid panel, troponin. Repeat CBC, blood cultures, wound cultures have been ordered. CURRENT CONSULTATIONS: 1. Cardiology. 2. Infectious Disease. 3. Nephrology. 4. Podiatry. The patient has been started on broads; the patient was given IV antibiotic, vancomycin, and Zosyn in the emergency room. The patient was given IV fluid boluses. The patient was started on aspirin and meropenem 500 IV every 12 hours. GI prophylaxis and DVT prophylaxis. Nebulizer treatment. Antihypertensive has been held. Noninvasive venous and arterial Doppler ordered. CT of the head, chest, abdomen, and pelvis ordered. Chest PT, oxygen 2 L ordered. The patient will be admitted to intensive care unit. At present, the patient was also seen by the forge hand, Dr. Deluca. Recommendations were noted. At present, further management will be dependent upon the patient's clinical condition, hemodynamic status, and as per the patient's response to therapeutic and diagnostic intervention. The patient may require IV pressor support for hypotension. Time spent in the entire management, treatment, evaluation, and case management discussion is more than 1 hour 55 minutes. Please refer to the detailed history and physical examination by the medical doctor also for other details. Dictated and electronically signed, not read. Oleg Whitman MD [facility]
--- NOTE | 2018-01-24 08:12 | CP.PCM.CON ---
<Sarah Talley - Last Filed: 01/24/18 15:22> History of Present Illness - History of Present Illness History of Present Illness: [id number] ID Consult note for Dr. Singh Reason for consult: hypotension 78yo male PMHx ESRD on HD (MWF), DM 2 (on insulin), HTN, 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 ID consulted for possible sepsis. This AM patient was seen and examined sitting up in chair. Overnight he had received HD which he tolerated and BP was stable. Patient denied acute complaints of fever, chills, headache, dizziness, chest pain, palpitations, SOB , cough, abd pain, nausea, vomiting, bowel/bladder complaints, pain/swelling in his legs b/l. PMHx: ESRD on HD (MWF), DM 2 (on insulin), HTN, multiple sinus arrest pauses (7- 8 seconds) s/p ventricular permanent pacemaker placement (11/2017), severe occlusive PVD s/p amputation of third toe of left foot, diabetic foot ulcer, osteomyelitis of the left fifth toe, obesity, COPD, and HLD PSurgHx: left UE AVF, left hand 5th digit amputation following ischemia from AVF complication, left third toe amputation 2016 Meds: pls see chart ALL: NKDA SocHx: former tobacco user, denies EtOH or illicit drug use FamHx: noncontributory Review of Systems - Review of Systems All systems: reviewed and no additional remarkable complaints except Review of Systems: as per HPI Past Patient History - Infectious Disease Hx of Infectious Diseases: None - Past Medical History & Family History Past Medical History?: Yes Past Family History: Reviewed and not pertinent - Past Social History Smoking Status: Former Smoker Alcohol: None Drugs: Denies Home Situation {Lives}: With Family - CARDIAC Hx Cardia Arrhythmia: Yes (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) Hx Circulatory Problems: Yes (PVD) Hx Congestive Heart Failure: No Hx Heart Attack: No Hx Pacemaker: Yes Hx Peripheral Vascular Disease: Yes - PULMONARY Hx Chronic Obstructive Pulmonary Disease (COPD): Yes - NEUROLOGICAL Hx Neurological Disorder: No - HEENT Hx HEENT Problems: Yes Hx Cataracts: Yes Other/Comment: double vision/decreased vision to the left eye;decreased hearing - RENAL Hx Dialysis: Yes Date of Last Dialysis Treatment: 01/21/18 Hx Renal Failure: Yes (On HD ( MWF)) - ENDOCRINE/METABOLIC Hx Diabetes Mellitus Type 2: Yes - HEMATOLOGICAL/ONCOLOGICAL Hx Anemia: Yes Hx Cancer: No - INTEGUMENTARY Hx Cellulitis: Yes - MUSCULOSKELETAL/RHEUMATOLOGICAL Hx Falls: No Hx Osteomyelitis: Yes - GASTROINTESTINAL Hx Gastrointestinal Disorders: No - GENITOURINARY/GYNECOLOGICAL Hx Genitourinary Disorders: No Hx Reproductive Disorders: No - PSYCHIATRIC Hx Psychophysiologic Disorder: No Hx Substance Use: No - SURGICAL HISTORY Hx Amputation: Yes Hx Mastectomy: No - ANESTHESIA Hx Anesthesia: Yes Hx Anesthesia Reactions: No Hx Malignant Hyperthermia: No Meds Allergies/Adverse Reactions: Allergies Allergy/AdvReac Type Severity Reaction Status Date / Time No Known Allergies Allergy Verified 01/23/18 10:11 - Medications Medications: Current Medications Acetaminophen (Tylenol 325mg Tab) 650 mg PO Q6 PRN PRN Reason: TEMP>=99.5F Acetaminophen (Tylenol 650 Mg Supp) 650 mg RC Q6H PRN PRN Reason: TEMP>=99.5F Aspirin (Ecotrin) [address] [facility] Last Admin: 01/23/18 17:25 Dose: 81 mg Benzonatate (Tessalon Perles) [address] [facility] Last Admin: 01/23/18 18:17 Dose: Not Given Dextrose (Dextrose 50% Inj) 25 ml IV STAT PRN; Protocol PRN Reason: Hypoglycemia Protocol Docusate Sodium (Colace) [address] [facility] Last Admin: 01/23/18 17:28 Dose: 100 mg Heparin Sodium (Porcine) (Heparin) 5,[address] [facility] PRN Reason: Protocol Last Admin: 01/24/18 05:00 Dose: Not Given Doxycycline Hyclate 100 mg/ (Sodium Chloride) 100 mls @ 100 mls/hr IVPB Q12 [facility] PRN Reason: Protocol Last Admin: 01/23/18 22:16 Dose: 100 mls/hr Dextrose (Dextrose 5% In Water 1000 Ml) 1,000 mls @ 0 mls/hr IV .Q0M PRN; Protocol; Per Protocol PRN Reason: Hypoglycemia Protocol Meropenem 500 mg/ Sodium (Chloride) 50 mls @ 100 mls/hr IVPB Q12 [facility] PRN Reason: Protocol Stop: 01/30/18 22:01 Last Admin: 01/23/18 22:16 Dose: 100 mls/hr Insulin Human Regular (Humulin R Med) 0 units SC ACHS [facility] PRN Reason: Protocol Last Admin: 01/24/18 07:36 Dose: Not Given Levalbuterol HCl (Xopenex) 0.[id number] [facility] Last Admin: 01/24/18 07:41 Dose: 0.63 mg Ondansetron HCl (Zofran Inj) 4 mg IVP Q4H PRN PRN Reason: Nausea/Vomiting Pantoprazole Sodium (Protonix Ec Tab) [address] [facility] Last Admin: 01/24/18 05:16 Dose: 40 mg Physical Exam - Constitutional Appears: Non-toxic, No Acute Distress - Head Exam Head Exam: ATRAUMATIC, NORMAL INSPECTION, NORMOCEPHALIC - Eye Exam Eye Exam: EOMI, Normal appearance. absent: Conjunctival injection, Scleral icterus - ENT Exam ENT Exam: Mucous Membranes Moist - Respiratory Exam Respiratory Exam: Wheezes, NORMAL BREATHING PATTERN. absent: Accessory Muscle Use, Rales, Rhonchi, Respiratory Distress - Cardiovascular Exam Cardiovascular Exam: +S1, +S2 - GI/Abdominal Exam GI & Abdominal Exam: Normal Bowel Sounds, Soft. absent: Tenderness - Rectal Exam Rectal Exam: Deferred - Extremities Exam Extremities exam: Negative for: pedal pulses present Additional comments: left 5th toe lesion noted left 3rd toe s/p amputation noted - Neurological Exam Neurological exam: Alert, Oriented x3 - Psychiatric Exam Psychiatric exam: Normal Affect, Normal Mood Results - Vital Signs Recent Vital Signs: Last Vital Signs Temp 97.9 F 01/24/18 04:15 Pulse 66 01/24/18 07:15 Resp 34 H 01/24/18 07:10 BP 103/35 L 01/24/18 07:15 Pulse Ox 81 L 01/24/18 07:15 - Labs Result Diagrams: 01/24/18 05:45 01/24/18 05:45 Labs: Laboratory Results - last 24 hr 01/23/18 01/23/18 01/23/18 12:30 12:30 13:20 WBC RBC Hgb Hct MCV MCH MCHC RDW Plt Count MPV Gran % Lymph % (Auto) Taylor % (Auto) Eos % (Auto) Baso % (Auto) Gran # Lymph # (Auto) Taylor # (Auto) Eos # (Auto) Baso # (Auto) APTT Sodium Potassium Chloride Carbon Dioxide Anion Gap BUN Creatinine Est GFR ( Amer) Est GFR (Non-Af Amer) POC Glucose (mg/dL) Random Glucose Calcium Phosphorus Magnesium Total Bilirubin Direct Bilirubin AST ALT Alkaline Phosphatase Total Creatine Kinase Troponin I C-React Prot High Sens > 15.00 H NT-Pro-B Natriuret Pep 85482 H Total Protein Albumin Globulin Albumin/Globulin Ratio Triglycerides Cholesterol LDL Cholesterol Direct HDL Cholesterol Procalcitonin 0.30 01/23/18 01/23/18 01/23/18 16:10 17:20 20:23 WBC RBC Hgb Hct MCV MCH MCHC RDW Plt Count MPV Gran % Lymph % (Auto) Taylor % (Auto) Eos % (Auto) Baso % (Auto) Gran # Lymph # (Auto) Taylor # (Auto) Eos # (Auto) Baso # (Auto) APTT Sodium Potassium Chloride Carbon Dioxide Anion Gap BUN Creatinine Est GFR ( Amer) Est GFR (Non-Af Amer) POC Glucose (mg/dL) 87 Random Glucose Calcium Phosphorus Magnesium Total Bilirubin Direct Bilirubin AST ALT Alkaline Phosphatase Total Creatine Kinase 135 118 Troponin I 0.03 0.03 C-React Prot High Sens NT-Pro-B Natriuret Pep Total Protein Albumin Globulin Albumin/Globulin Ratio Triglycerides Cholesterol LDL Cholesterol Direct HDL Cholesterol Procalcitonin 01/23/18 01/24/18 01/24/18 22:12 05:45 05:45 WBC 7.5 RBC 3.44 L Hgb 9.1 L Hct 29.8 L MCV 86.6 MCH 26.5 MCHC 30.5 L RDW 17.9 H Plt Count 199 MPV 11.2 H Gran % 78.0 H Lymph % (Auto) 15.1 L Taylor % (Auto) 4.9 Eos % (Auto) 1.7 Baso % (Auto) 0.3 Gran # 5.87 Lymph # (Auto) 1.1 L Taylor # (Auto) 0.4 Eos # (Auto) 0.1 Baso # (Auto) 0.02 APTT Sodium 143 Potassium 4.1 Chloride 100 Carbon Dioxide 26 Anion Gap 21 H BUN 60 H Creatinine 8.1 H* Est GFR ( Amer) 8 Est GFR (Non-Af Amer) 6 POC Glucose (mg/dL) 114 H Random Glucose 76 Calcium 7.8 L Phosphorus 6.0 H Magnesium 1.8 Total Bilirubin 0.4 Direct Bilirubin 0.4 AST 19 ALT 16 Alkaline Phosphatase 89 Total Creatine Kinase Troponin I C-React Prot High Sens NT-Pro-B Natriuret Pep Total Protein 6.5 Albumin 3.4 Globulin 3.2 Albumin/Globulin Ratio 1.1 Triglycerides 101 Cholesterol 92 L LDL Cholesterol Direct 42 HDL Cholesterol 17 L Procalcitonin 01/24/18 01/24/18 05:45 07:34 WBC RBC Hgb Hct MCV MCH MCHC RDW Plt Count MPV Gran % Lymph % (Auto) Taylor % (Auto) Eos % (Auto) Baso % (Auto) Gran # Lymph # (Auto) Taylor # (Auto) Eos # (Auto) Baso # (Auto) APTT 35.9 Sodium Potassium Chloride Carbon Dioxide Anion Gap BUN Creatinine Est GFR ( Amer) Est GFR (Non-Af Amer) POC Glucose (mg/dL) 64 L Random Glucose Calcium Phosphorus Magnesium Total Bilirubin Direct Bilirubin AST ALT Alkaline Phosphatase Total Creatine Kinase Troponin I C-React Prot High Sens NT-Pro-B Natriuret Pep Total Protein Albumin Globulin Albumin/Globulin Ratio Triglycerides Cholesterol LDL Cholesterol Direct HDL Cholesterol Procalcitonin Assessment & Plan - Assessment and Plan (Free Text) Assessment: 78yo male PMHx ESRD on HD (MWF), DM 2 (on insulin), HTN, 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 ID consulted for possible sepsis. Plan: -blood cultrue prelim negative x 2 -f/u wound culture -procalcitonin 0.3 -ESR 57, CRP > 15 -f/u foot x-ray and r/o osteo -continue Doxycycline and Merrem and monitor clinically -continue management as per primary ID will continue to follow Discussed with Dr. Samantha Talley PGY3 <Dameon Singh - Last Filed: 01/24/18 17:39> Meds - Medications Medications: Current Medications Acetaminophen (Tylenol 325mg Tab) 650 mg PO Q6 PRN PRN Reason: TEMP>=99.5F Acetaminophen (Tylenol 650 Mg Supp) 650 mg RC Q6H PRN PRN Reason: TEMP>=99.5F Aspirin (Ecotrin) [address] [facility] Last Admin: 01/24/18 09:46 Dose: 81 mg Benzonatate (Tessalon Perles) [address] [facility] Last Admin: 01/24/18 13:05 Dose: Not Given Dextrose (Dextrose 50% Inj) 25 ml IV STAT PRN; Protocol PRN Reason: Hypoglycemia Protocol Docusate Sodium (Colace) [address] [facility] Last Admin: 01/24/18 13:04 Dose: Not Given Heparin Sodium (Porcine) (Heparin) 5,000 units SC Q8 [facility] PRN Reason: Protocol Last Admin: 01/24/18 05:00 Dose: Not Given Doxycycline Hyclate 100 mg/ (Sodium Chloride) 100 mls @ 100 mls/hr IVPB Q12 [facility] PRN Reason: Protocol Last Admin: 01/24/18 09:44 Dose: 100 mls/hr Dextrose (Dextrose 5% In Water 1000 Ml) 1,000 mls @ 0 mls/hr IV .Q0M PRN; Protocol; Per Protocol PRN Reason: Hypoglycemia Protocol Meropenem 500 mg/ Sodium (Chloride) 50 mls @ 100 mls/hr IVPB Q12 [facility] PRN Reason: Protocol Stop: 01/30/18 22:01 Last Admin: 01/24/18 09:44 Dose: 100 mls/hr Heparin Sodium/Sodium Chloride (Heparin 80109 Units/250ml 1/2 Normal Saline) 25 ,000 units in 250 mls @ 21.339 mls/hr IV .[id number] PRN; Protocol; 18 UNITS/KG/HR PRN Reason: ADJUST RATE PER PROTOCOL Insulin Human Regular (Humulin R Med) [address] [facility] PRN Reason: Protocol Last Admin: 01/24/18 11:39 Dose: Not Given Levalbuterol HCl (Xopenex) 0.[id number] [facility] Last Admin: 01/24/18 13:32 Dose: 0.63 mg Ondansetron HCl (Zofran Inj) 4 mg IVP Q4H PRN PRN Reason: Nausea/Vomiting Pantoprazole Sodium (Protonix Ec Tab) 40 mg PO 0600 [facility] Last Admin: 01/24/18 05:16 Dose: 40 mg Results - Vital Signs Recent Vital Signs: Last Vital Signs Temp 98.3 F 01/24/18 12:00 Pulse 63 01/24/18 14:45 Resp 12 01/24/18 14:45 BP 112/39 L 01/24/18 14:45 Pulse Ox 79 L 01/24/18 14:45 - Labs Result Diagrams: 01/24/18 05:45 01/24/18 05:45 Labs: Laboratory Results - last 24 hr 01/23/18 01/23/18 01/23/18 12:30 17:20 20:23 WBC RBC Hgb Hct MCV MCH MCHC RDW Plt Count MPV Gran % Lymph % (Auto) Taylor % (Auto) Eos % (Auto) Baso % (Auto) Gran # Lymph # (Auto) Taylor # (Auto) Eos # (Auto) Baso # (Auto) ESR APTT Sodium Potassium Chloride Carbon Dioxide Anion Gap BUN Creatinine Est GFR ( Amer) Est GFR (Non-Af Amer) POC Glucose (mg/dL) 87 Random Glucose Hemoglobin A1c Calcium Phosphorus Magnesium Total Bilirubin Direct Bilirubin AST ALT Alkaline Phosphatase Total Creatine Kinase 118 Troponin I 0.03 C-React Prot High Sens Total Protein Albumin Globulin Albumin/Globulin Ratio Triglycerides Cholesterol LDL Cholesterol Direct HDL Cholesterol Procalcitonin 0.30 01/23/18 01/24/18 01/24/18 22:12 05:45 05:45 WBC 7.5 RBC 3.44 L Hgb 9.1 L Hct 29.8 L MCV 86.6 MCH 26.5 MCHC 30.5 L RDW 17.9 H Plt Count 199 MPV 11.2 H Gran % 78.0 H Lymph % (Auto) 15.1 L Taylor % (Auto) 4.9 Eos % (Auto) 1.7 Baso % (Auto) 0.3 Gran # 5.87 Lymph # (Auto) 1.1 L Taylor # (Auto) 0.4 Eos # (Auto) 0.1 Baso # (Auto) 0.02 ESR APTT Sodium 143 Potassium 4.1 Chloride 100 Carbon Dioxide 26 Anion Gap 21 H BUN 60 H Creatinine 8.1 H* Est GFR ( Amer) 8 Est GFR (Non-Af Amer) 6 POC Glucose (mg/dL) 114 H Random Glucose 76 Hemoglobin A1c Calcium 7.8 L Phosphorus 6.0 H Magnesium 1.8 Total Bilirubin 0.4 Direct Bilirubin 0.4 AST 19 ALT 16 Alkaline Phosphatase 89 Total Creatine Kinase Troponin I C-React Prot High Sens Total Protein 6.5 Albumin 3.4 Globulin 3.2 Albumin/Globulin Ratio 1.1 Triglycerides 101 Cholesterol 92 L LDL Cholesterol Direct 42 HDL Cholesterol 17 L Procalcitonin 01/24/18 01/24/18 01/24/18 05:45 05:45 07:34 WBC RBC Hgb Hct MCV MCH MCHC RDW Plt Count MPV Gran % Lymph % (Auto) Taylor % (Auto) Eos % (Auto) Baso % (Auto) Gran # Lymph # (Auto) Taylor # (Auto) Eos # (Auto) Baso # (Auto) ESR APTT 35.9 Sodium Potassium Chloride Carbon Dioxide Anion Gap BUN Creatinine Est GFR ( Amer) Est GFR (Non-Af Amer) POC Glucose (mg/dL) 64 L Random Glucose Hemoglobin A1c 6.0 Calcium Phosphorus Magnesium Total Bilirubin Direct Bilirubin AST ALT Alkaline Phosphatase Total Creatine Kinase Troponin I C-React Prot High Sens Total Protein Albumin Globulin Albumin/Globulin Ratio Triglycerides Cholesterol LDL Cholesterol Direct HDL Cholesterol Procalcitonin 01/24/18 01/24/18 01/24/18 09:00 09:00 11:30 WBC RBC Hgb Hct MCV MCH MCHC RDW Plt Count MPV Gran % Lymph % (Auto) Taylor % (Auto) Eos % (Auto) Baso % (Auto) Gran # Lymph # (Auto) Taylor # (Auto) Eos # (Auto) Baso # (Auto) ESR 57 H APTT Sodium Potassium Chloride Carbon Dioxide Anion Gap BUN Creatinine Est GFR ( Amer) Est GFR (Non-Af Amer) POC Glucose (mg/dL) 137 H Random Glucose Hemoglobin A1c Calcium Phosphorus Magnesium Total Bilirubin Direct Bilirubin AST ALT Alkaline Phosphatase Total Creatine Kinase Troponin I C-React Prot High Sens > 15.00 H Total Protein Albumin Globulin Albumin/Globulin Ratio Triglycerides Cholesterol LDL Cholesterol Direct HDL Cholesterol Procalcitonin Assessment & Plan - Assessment and Plan (Free Text) Plan: Infectious Diseases Attending Physician Addendum Patient seen and examined, discussed with pediatric medical assistant. I have reviewed the pertinent clinical information for the patient, including history of present illness, medical, personal and social histories, lab results and imaging findings. I agree with the above findings, assessment and plan. In addition, we have started the patient on a dose of IV Vancomycin, and started Merrem and Doxycycline for SIRS R/O sepsis. Follow up blood and urine cx. Will discuss with Podiatry regarding his previous foot osteomyelitis.
--- NOTE | 2018-01-24 09:33 | CT ---
Date of service: 01/24/2018 PROCEDURE: CT HEAD WITHOUT CONTRAST. HISTORY: lethargy COMPARISON: 11/25/2017 TECHNIQUE: Axial computed tomography images were obtained through the head/brain without intravenous contrast. Radiation dose: Total exam DLP = 873 mGy-cm. This CT exam was performed using one or more of the following dose reduction techniques: Automated exposure control, adjustment of the mA and/or kV according to patient size, and/or use of iterative reconstruction technique. FINDINGS: HEMORRHAGE: No intracranial hemorrhage. BRAIN: No mass effect or edema. Severe chronic microvascular changes in the periventricular white matter and basal ganglia. Moderate atrophy There are no acute findings VENTRICLES: Unremarkable. No hydrocephalus. CALVARIUM: Unremarkable. PARANASAL SINUSES: Unremarkable as visualized. No significant inflammatory changes. MASTOID AIR CELLS: Unremarkable as visualized. No inflammatory changes. OTHER FINDINGS: None. IMPRESSION: No acute intracranial findings
--- NOTE | 2018-01-24 09:34 | CON ---
DATE: 01/24/2018 CARDIOLOGY CONSULTATION HISTORY: The patient is a 78-year-old male who presented to the Emergency Room for necrotic wound in his lower extremity. He was hypotensive and admitted to the ICU. He denies chest pain. The patient states he sees a tank house operator in [place] and was told he has a very weak heart. PAST MEDICAL HISTORY: Includes diabetes mellitus, CHF as well as end-stage renal disease, treated with dialysis. He suffers from peripheral vascular disease. His last echocardiogram which was done in July of this year revealed good LV function with pulmonary hypertension. He denies chest pain. SOCIAL HISTORY Denies smoking. REVIEW OF SYSTEMS: The 14-point review of systems was reviewed in detail. The patient complains of marked fatigue and intermittent shortness of breath. No angina, no edema in the lower extremities. PHYSICAL EXAMINATION: VITAL SIGNS: Blood pressure is 103/35, heart rate is in the 60s. NECK: Negative JVD. LUNGS: Without rales. HEART: Reveals S1, S2. EXTREMITIES: Without edema. DATA: Laboratories includes an EKG that shows a paced rhythm. Hemoglobin is 9.1. Chemistries: Potassium is 4.1. BUN and creatinine is 80 and 8.1. Troponins are negative. IMPRESSION: 1. Transient hypotension likely due to volume status. 2. End-stage renal disease. 3. Diabetes mellitus. 4. Anemia. 5. Marked fatigue. 6. History of pacemaker placement. 7. The patient has a history of a cardiomyopathy, but none documented here. 7. Pulmonary hypertension. Given these findings, we will obtain an echocardiogram to reevaluate his heart function, which may contribute to his fatigue. The patient is for dialysis today. Yong Duran MD
[2018-01-24] MEDS: Meropenem 500 MG in Sodium Chloride 0.9% 50 ML IVPB SCH ×2 (09:44→23:00)
--- NOTE | 2018-01-24 10:54 | CT ---
Date of service: 01/24/2018 PROCEDURE: CT Chest, Abdomen and Pelvis without intravenous contrast HISTORY: hypotension COMPARISON: 07/04/2017 TECHNIQUE: Radiation dose: Total exam DLP = 1480 mGy-cm. This CT exam was performed using one or more of the following dose reduction techniques: Automated exposure control, adjustment of the mA and/or kV according to patient size, and/or use of iterative reconstruction technique. FINDINGS: CT CHEST WITHOUT CONTRAST: LUNGS: Extensive emphysema seen especially in the upper lobes. Minimal consolidation or atelectasis at the right lung base adjacent to a small effusion MEDIASTINUM: Unremarkable. Normal caliber aorta and pulmonary arterial trunk. Normal size heart. Mitral valve calcification and coronary artery calcification LYMPH NODES: Unremarkable. PLEURA: Unremarkable. No pneumothorax. No pleural fluid. BONES: Unremarkable. OTHER FINDINGS: None. CT ABDOMEN AND PELVIS: LIVER: Unremarkable. No gross lesion or ductal dilatation. GALLBLADDER AND BILE DUCTS: Unremarkable. PANCREAS: Unremarkable. No gross lesion or ductal dilatation. SPLEEN: Unremarkable. ADRENALS: Unremarkable. No mass. KIDNEYS AND URETERS: Unremarkable. No hydronephrosis. No solid mass. VASCULATURE: Unremarkable. No aortic aneurysm. BOWEL: Unremarkable. No obstruction. No gross mural thickening. APPENDIX: Normal appendix. PERITONEUM: Unremarkable. No free fluid. No free air. LYMPH NODES: Unremarkable. No enlarged lymph nodes. BLADDER: Unremarkable. REPRODUCTIVE: Unremarkable. BONES: No acute fracture. OTHER FINDINGS: None. IMPRESSION: No acute findings
--- NOTE | 2018-01-24 11:34 | PN ---
DATE: 01/24/2018 SUBJECTIVE: The patient is seen lying in the stretcher and having CAT scan and x-rays done. The patient is awake, responsive, much more awake and responsive today. The patient does not offer any specific complaint. The patient denies any chest pain, shortness of breath, nausea, diarrhea, constipation. Overnight nurse's notes were reviewed. PHYSICAL EXAMINATION: VITAL SIGNS: T-max is 98.4, 97.9. The patient's telemetry shows ventricular paced rhythm. Respiration 26, 24, 32, 25. Blood pressure has improved in the last 12 hours. The patient's blood pressure has been running around low 100 systolic, 110 systolic, 120 systolic, diastolic has been in 40s and 50s. O2 sat is ranging from 93-91% to 96%. HEENT: The patient's head examination normocephalic, atraumatic. HEENT examination shows pinkish pale conjunctivae. Anicteric sclerae. No oropharyngeal lesion. No neck rigidity. CHEST: Kyphosis. Pacemaker noted, upper chest. CARDIOVASCULAR: S1, S2. Positive systolic murmur, left sternal border, left second intercostal space, right second intercostal space. ABDOMEN: Soft. Protuberant abdomen noted. GENITALIA: Male. Positive left upper extremity AV fistula. Lower extremity shows no pitting edema. MUSCULOSKELETAL: Shows a body mass index of 41. NEUROLOGIC: Gait examination is not tested as the patient is lying in the stretcher. DIAGNOSTICS: On 01/24/2018, WBC 7.5, hemoglobin and hematocrit 9.1 and 29.8, platelet 199, granulocytes 78% segs. ESR is 57. Sodium 143, potassium 4.1, chloride 100, CO2 of 26, anion gap 21, BUN 60, creatinine 8.1, GFR 6, glucose 114 and 76, calcium 7.8, phosphorus 6, magnesium 1.8. LFTs are normal. Troponin all three sets are negative. BNP yesterday was 56,300. C-reactive protein is greater than 15. Procalcitonin level was negative as 0.30. Cholesterol is 92, LDL 42, HDL 17. The patient had a foot x-ray and CT abdomen and pelvis, the results of which are pending. The patient had a CT of the head. The results of which are available. Ultrasound of the lower extremity was done, which was reviewed. The patient had a chest x-ray done yesterday, which was reviewed. EKG shows paced rhythm. IMPRESSION AND PLAN: 1. Severe symptomatic hypotension. 2. Left foot osteomyelitis, status post intravenous antibiotic treatment. 3. Tachypnea. 4. Hypoxemia. 5. Normocytic anemia. 6. Granulocytosis. 7. Elevated erythrocyte sedimentation rate of 57. 8. End-stage renal disease, hemodialysis dependent three times a week via left upper extremity arteriovenous fistula. 9. Hyperphosphatemia and secondary hyperparathyroidism. 10. Elevated C-reactive protein of greater than 15. 11. Questionable congestive heart failure with elevated BNP versus volume overload and fluid overload. 12. 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 13. Bilateral lower extremity peripheral arterial disease with bilateral tibial occlusive disease, left greater than the right. 14. Bilateral lower extremity venous stasis. 15. Questionable congestive heart failure with pulmonary vascular congestion and cardiomegaly. 16. Insulin-requiring diabetes mellitus. 17. Permanent pacemaker implant. 18. Left foot fifth toe diabetic ulceration versus osteomyelitis. 19. Left foot fifth digit gangrene and gangrenous ulcer. 20. Severe peripheral vascular disease. 21. Secondary hyperparathyroidism. 22. History of hypertension, chronic obstructive pulmonary disease. 23. History of questionable poor healing left foot diabetic ulceration and gangrenous diabetic ulceration and osteomyelitis. 24. Status post left foot third toe amputation. 25. Severe emphysema of the upper lobes and right lower lobe atelectasis, consolidation and small pleural effusion. 26. Mitral valve calcification. 27. Deconditioning. 28. Constipation. 1. History of left foot osteomyelitis, status post intravenous antibiotic treatment. 2. End-stage renal disease, hemodialysis dependent. 3. History of hypertension. 4. Persistent refractory hypotension, etiology undetermined. 5. Hypoxemia. 6. Normocytic anemia with granulocytosis. 7. Elevated BNP, etiology undetermined. 8. Elevated C-reactive protein. 9. Peripheral vascular disease of the lower extremity. 10. Bilateral lower extremity venous stasis. 11. Gait dysfunction. 12. Deconditioning. 13. Cardiomegaly with mild pulmonary vascular congestion. 14. History of dementia. 15. History of permanent pacemaker implant. 16. History of prostatic hypertrophy, history of hypertriglyceridemia, history of secondary hyperparathyroidism. 17. Insulin-requiring diabetes mellitus. 18. Sick sinus syndrome. 19. History of left foot toe amputation. 20. Diabetic foot ulcer. 21. Left upper extremity arteriovenous fistula. 22. Left hand finger amputation. 23. History of nicotine dependence. 24. Sepsis. 25. Pneumonia. 26. Pulmonary hypertension with moderate concentric left ventricular hypertrophy. 27. Moderate mitral annular calcification. 28. Moderate pulmonary hypertension with right ventricular systolic pressure of 53 mmHg. 29. History of respiratory failure. 30. Oropharyngeal candidiasis. 31. Macroglossia. 32. Hypovitaminosis D. 33. History of sepsis secondary to healthcare-associated pneumonia, epiglottitis, and oropharyngeal candidiasis. 34. Uncontrolled diabetes mellitus. 35. History of BiPAP-requiring respiratory failure. 36. Obesity. 37. Hyperprocalcitoninemia . 38. Sinusitis. 39. History of chronic obstructive pulmonary disease exacerbation. 40. 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 41. Pulmonary emphysema. Plan at this time, if the patient stays stable and hemodynamic stay stable, the patient will be considered to be transferred out of ICU. The patient has been ordered repeat labs for the morning. Blood cultures, wound cultures, MRSA cultures pending. X-ray was ordered for the left foot by Podiatry. CURRENT CONSULTATION: 1. Cardiology. 2. Infectious Disease. 3. Nephrology. 4. Podiatry. The patient has been ordered TCU evaluation. CURRENT MEDICATIONS: Colace 100 mg three times a day, doxycycline 100 mg IV every 12, Ecotrin 81 mg daily, heparin 5000 subcu every eight, DVT prophylaxis, regular insulin sliding scale coverage before meals and at bedtime, meropenem 500 mg IV every 12, Protonix 40 mg daily, Tessalon Perles 200 three times a day, Tylenol 650 p.o. suppository every 6. The patient received vancomycin 1.25 g in the emergency room yesterday. Xopenex nebulizer is there. The patient is on Zofran 4 IV every 4. The patient received Zosyn 2.25 g yesterday in the ER. The patient is on chest PT, oxygen treatment. Echo with Doppler ordered by Dr. Yong Duran. The patient is on liquid diet for evaluation of femoral angiogram by Dr. Yong Womack. The patient has been ordered fingerstick blood sugar, out of bed. The patient has been seen by Dr. Yong Womack from Interventional Radiology for left lower extremity arteriogram. The patient will be continued on the above therapeutic intervention. The patient's overall prognosis is guarded. Dictated and electronically signed, not read. Oleg Whitman MD MTDDorys
--- NOTE | 2018-01-24 13:06 | CP.PCM.PN ---
Addendum entered and electronically signed by Lico Matias DPM 01/24/18 13:48: Plan: MRI to be considered after patient stabilization. No plans for surgical intervention except after successful revascularization. Original Note: <Lico Matias - Last Filed: 01/24/18 12:57> Subjective - Date & Time of Evaluation Date of Evaluation: 01/24/18 Time of Evaluation: 12:57 - Subjective Subjective: Podiatry consult notes for attending Dr. Maher 78 Y/O male Patient seen and evaluated at bedside for an ulcer of the left 5th digit . Patient was sitting in his bed at the visit time. Patient states that he still doesn't feel well since yesterday. Patient states that he has episodes of pain in his left foot. Patient denies any recent F/N/V/C or SOB. Patient denies any other pedal complaint at this time. Objective - Vital Signs/Intake and Output Vital Signs (last 24 hours): Temp Pulse Resp BP Pulse Ox 98.4 F 62 24 152/52 H 93 L 01/24/18 08:00 01/24/18 10:00 01/24/18 10:00 01/24/18 10:00 01/24/18 10:00 Intake and Output: 01/24/18 01/24/18 06:59 18:59 Intake Total 150 Output Total 1000 Balance -850 - Medications Medications: Current Medications Acetaminophen (Tylenol 325mg Tab) 650 mg PO Q6 PRN PRN Reason: TEMP>=99.5F Acetaminophen (Tylenol 650 Mg Supp) 650 mg RC Q6H PRN PRN Reason: TEMP>=99.5F Aspirin (Ecotrin) 81 mg PO DAILY [facility] Last Admin: 01/24/18 09:46 Dose: 81 mg Benzonatate (Tessalon Perles) 200 mg PO TID [facility] Last Admin: 01/24/18 09:46 Dose: 200 mg Dextrose (Dextrose 50% Inj) 25 ml IV STAT PRN; Protocol PRN Reason: Hypoglycemia Protocol Docusate Sodium (Colace) 100 mg PO TID [facility] Last Admin: 01/24/18 09:46 Dose: 100 mg Heparin Sodium (Porcine) (Heparin) 5,000 units SC Q8 [facility] PRN Reason: Protocol Last Admin: 01/24/18 05:00 Dose: Not Given Doxycycline Hyclate 100 mg/ (Sodium Chloride) 100 mls @ 100 mls/hr IVPB Q12 [facility] PRN Reason: Protocol Last Admin: 01/24/18 09:44 Dose: 100 mls/hr Dextrose (Dextrose 5% In Water 1000 Ml) 1,000 mls @ 0 mls/hr IV .Q0M PRN; Protocol; Per Protocol PRN Reason: Hypoglycemia Protocol Meropenem 500 mg/ Sodium (Chloride) 50 mls @ 100 mls/hr IVPB Q12 [facility] PRN Reason: Protocol Stop: 01/30/18 22:01 Last Admin: 01/24/18 09:44 Dose: 100 mls/hr Insulin Human Regular (Humulin R Med) 0 units SC ACHS [facility] PRN Reason: Protocol Last Admin: 01/24/18 11:39 Dose: Not Given Levalbuterol HCl (Xopenex) 0.63 mg IH [id number] [facility] Last Admin: 01/24/18 07:41 Dose: 0.63 mg Ondansetron HCl (Zofran Inj) 4 mg IVP Q4H PRN PRN Reason: Nausea/Vomiting Pantoprazole Sodium (Protonix Ec Tab) 40 mg PO 0600 [facility] Last Admin: 01/24/18 05:16 Dose: 40 mg - Labs Labs: 01/24/18 05:45 01/24/18 05:45 PT 13.3 SECONDS (9.4-12.5) H 01/23/18 11:00 INR 1.15 01/23/18 11:00 APTT 35.9 Seconds (25.1-36.5) 01/24/18 05:45 - Constitutional Appears: Non-toxic - Head Exam Head Exam: ATRAUMATIC, NORMOCEPHALIC - Extremities Exam Additional comments: Left LE focused Exam: Vasc: DP/PT pulses are not palpable, Cap refill time < 3 sec in all digits, skin temperature gradient: warm to cool from proximal to distal. L 5th digit became dark bluish in color. Dark discoloration noted in all the digits up to the level of the met. shafts. Neuro: Protective sensation diminished. Gross sensation intact. DERM: Ulceration on the dorsum of the 5th digit measuring approximately 1.5 cm x 3 cm with wound bed completely necrotic, covered by dry black eschar, no active drainage, no malodor, no tunneling or tracking, no purulent drainage, No erythema noted at the dorsum of the left forefoot, no clinical signs of infection. An area of ecchymosis noted on the dorsum of the 1st left digit. color changes appears in all the digits (it become darker up to the level of the met. shafts) MSK: Pain on palpation of the digits particularly the 5th digit. Muscle power intact 5/5 in all groups. - Neurological Exam Neurological Exam: Alert, Awake, Oriented x3 Assessment and Plan - Assessment and Plan (Free Text) Assessment: 78 Y/O M patient seen and evaluated at the bedside for gangrenous left 5th digit Plan: Patient seen and evaluated at the bed side with Dr. Maher Plan discussed in details with attending Dr. Maher Chart, Labs and vitals reviewed; Afebrile, WBCs 4.8 LE arterial duplex: BEATRIZ R 1.14. Bilatera sever tibial occlusive disease L > R B/L LE venous Duplex; No DVT. Left foot x-ray ordered. Ulcer dressed using DSD Wound culture collected and sent to the lab. ID is on board. Vascular surgery is on board. Podiatry will continue to follow up the patient while in house. <Lizbeth Maher - Last Filed: 02/03/18 17:51> Objective - Vital Signs/Intake and Output Vital Signs (last 24 hours): Temp Pulse Resp BP Pulse Ox 98 F 66 20 128/56 L 94 L 02/03/18 14:24 02/03/18 14:24 02/03/18 14:24 02/03/18 14:24 02/03/18 14:24 Intake and Output: 02/03/18 02/03/18 06:59 18:59 Intake Total 300 240 Balance 300 240 - Medications Medications: Current Medications Acetaminophen (Tylenol 325mg Tab) 650 mg PO Q6 PRN PRN Reason: TEMP>=99.5F Last Admin: 01/29/18 21:21 Dose: 650 mg Acetaminophen (Tylenol 650 Mg Supp) 650 mg RC Q6H PRN PRN Reason: TEMP>=99.5F Amlodipine Besylate (Norvasc) 10 mg PO DAILY [facility] Last Admin: 02/03/18 10:31 Dose: 10 mg Aspirin (Aspirin) 325 mg PO DAILY [facility] Last Admin: 02/02/18 15:56 Dose: Not Given Atorvastatin Calcium (Lipitor) 40 mg PO HS [facility] Last Admin: 02/02/18 21:49 Dose: 40 mg Benzonatate (Tessalon Perles) 200 mg PO TID [facility] Last Admin: 02/03/18 15:29 Dose: 200 mg Calcium Acetate (Phoslo) 667 mg PO TID [facility] Last Admin: 02/03/18 15:29 Dose: 667 mg Carvedilol (Coreg) 25 mg PO BID [facility] Last Admin: 02/03/18 10:32 Dose: 25 mg Darbepoetin Preet (Aranesp) 40 mcg IVP ONCE ONE Stop: 02/04/18 06:01 Dextrose (Dextrose 50% Inj) 25 ml IV STAT PRN; Protocol PRN Reason: Hypoglycemia Protocol Docusate Sodium (Colace) 100 mg PO TID [facility] Last Admin: 02/03/18 15:29 Dose: 100 mg Donepezil HCl (Aricept) 10 mg PO [facility] Last Admin: 02/02/18 21:48 Dose: 10 mg Doxazosin Mesylate (Cardura) 2 mg PO BID [facility] Last Admin: 02/03/18 10:32 Dose: 2 mg Gabapentin (Neurontin) 100 mg PO HS [facility]; Protocol Last Admin: 02/02/18 21:48 Dose: 100 mg Hydralazine HCl (Apresoline) 100 mg PO BID [facility] Last Admin: 02/03/18 10:30 Dose: 100 mg Dextrose (Dextrose 5% In Water 1000 Ml) 1,000 mls @ 0 mls/hr IV .Q0M PRN; Protocol PRN Reason: Hypoglycemia Protocol Meropenem 250 mg/ Sodium (Chloride) 100 mls @ 100 mls/hr IVPB Q12H [facility]; Protocol Stop: 02/08/18 19:31 Last Admin: 02/03/18 10:34 Dose: 100 mls/hr Insulin Human Regular (Humulin R Med) 0 units SC ACHS [facility]; Protocol Last Admin: 02/03/18 17:21 Dose: Not Given Levalbuterol HCl (Xopenex) 0.63 mg IH [id number] [facility] Last Admin: 02/03/18 16:27 Dose: 0.63 mg Lidocaine (Lidoderm) 1 ea TD DAILY [facility] Last Admin: 09/30/18 10:34 Dose: 1 ea Losartan Potassium (Cozaar) 100 mg PO DAILY [facility] Last Admin: 02/03/18 10:31 Dose: 100 mg Memantine (Namenda) 5 mg PO BID [facility] Last Admin: 02/03/18 10:31 Dose: 5 mg Ahzhg-2-Srip Ethyl Esters (Lovaza) 1 gm PO BID [facility] Last Admin: 02/03/18 10:31 Dose: 1 gm Ondansetron HCl (Zofran Inj) 4 mg IVP Q4H PRN PRN Reason: Nausea/Vomiting Pantoprazole Sodium (Protonix Ec Tab) 40 mg PO 0600 [facility] Last Admin: 02/03/18 05:48 Dose: 40 mg Tamsulosin HCl (Flomax) 0.4 mg PO DAILY [facility] Last Admin: 02/03/18 10:31 Dose: 0.4 mg Tramadol HCl (Ultram) 50 mg PO TID PRN PRN Reason: Pain, moderate (4-7) Last Admin: 02/03/18 10:31 Dose: 50 mg - Labs Labs: 02/02/18 10:00 02/02/18 10:00 PT 12.9 SECONDS (9.4-12.5) H 02/02/18 10:00 INR 1.12 02/02/18 10:00 APTT 37.0 Seconds (25.1-36.5) H 02/02/18 10:00 Attending/Attestation - Attestation I have personally seen and examined this patient.: Yes I have fully participated in the care of the patient.: Yes I have reviewed all pertinent clinical information, including history, physical exam and plan: Yes
[2018-01-24] MEDS: Levalbuterol 0.63 MG/3 ML Inhal Soln UD IH SCH ×2 (13:32→18:35)
[2018-01-24] MEDS ORDERED: Lidocaine PF 2% (5 ml) Inj (For Cardiac Arrhy) ONE (14:54)
[2018-01-24] MEDS ORDERED: Nitroglycerin 50mg in D5W 50 MG/250 ML BOTTLE IV ONE (14:55)
[2018-01-24] MEDS ORDERED: Iodixanol 320 MG/ML 200 ML BOTTLE IV ONE (14:55)
[2018-01-24] MEDS ORDERED: Iodixanol 320 MG/ML 100 ML BOTTLE IV ONE ×2 (14:55→16:51)
[2018-01-24] MEDS ORDERED: Midazolam 2 MG/2 ML VIAL ONE ×2 (15:19→15:45)
[2018-01-24] MEDS ORDERED: DiphenhydrAMINE 50 mg/ml Inj ONE (16:05)
[2018-01-24] MEDS ORDERED: Verapamil 2 ML ONE (16:09)
--- NOTE | 2018-01-24 16:21 | RAD ---
Date of service: 01/24/2018 PROCEDURE: Left Foot Radiographs. HISTORY: To R/O left 5th digit OM COMPARISON: 11/25/2017 FINDINGS: BONES: There is a chronic fracture of the base of the 5th proximal phalanx. No evidence of osteomyelitis JOINTS: Amputation of the 3rd toe SOFT TISSUES: Normal. OTHER FINDINGS: None. IMPRESSION: There is a chronic fracture of the base of the 5th proximal phalanx. No evidence of osteomyelitis
[2018-01-24] MEDS ORDERED: Heparin25000 units/250ml 1/2NS 25,000 UNITS/250 ML BAG IV ONE (17:08)
[2018-01-24] MEDS: Heparin25000 units/250ml 1/2NS 25,000 UNITS/250 ML BAG IV PRN (18:00)
--- NOTE | 2018-01-24 18:40 | VASCULAR ---
PROCEDURE: 1. Abdominal aortogram and bilateral lower extremity runoff with left selective views. 2. Left peroneal artery CS I atherectomy and balloon angioplasty 3. Left anterior tibial artery angioplasty HISTORY: Severe peripheral vascular disease. Gangrene left foot. End-stage renal disease. Diabetes. PHYSICIAN(S): Yong Womack M.D. TECHNIQUE: The relative risks and indications of the procedure were explained to the patient and consent obtained. The patient was placed supine on the arteriogram table and the right groin prepped and draped in the usual sterile fashion. Conscious sedation and monitoring were provided throughout the procedure by a nurse. Via a right common femoral artery approach, a 5 Tajik sheath was placed in the right groin. Through the sheath and over a guidewire, a 5 Tajik flush catheter was placed in the abdominal aorta at the level of the renal arteries and a PA DSA abdominal aortogram performed. The catheter was pulled down to the aortic bifurcation and bilateral oblique DSA pelvic arteriograms performed. Overlapping bilateral lower extremity DSA arteriograms were obtained from the inguinal ligaments to the ankles. A 0.035 angled Glidewire was advanced over the bifurcation and placed in the distal left SFA. A 6 Tajik 90 cm Raabe sheath was placed in the distal left SFA. Heparin 6000 units IV and nitroglycerin in 250 mcg aliquots were given. With some difficulty, the calcified diffuse stenosis in the left peroneal artery were crossed with 0.035 glidewire. Exchange was made for a 0.017 Viper support wire. CS I atherectomy of the left peroneal artery was performed with a 1.25 mm micro jocelyn. Left peroneal artery was then dilated with 3.0/2 0.5 x 210 angioplasty balloon. No stent was required. The guidewire was redirected into the proximal take-off of the left anterior tibial artery. The diffuse severe disease in the left anterior tibial artery was crossed with a 0.035 angled Glidewire and 0.014 confluence a wire. Left anterior tibial artery was dilated with 3.5/3 0.0 x 210 balloon its mid to distal portion and a 3.5 x 120 balloon proximally. A good angiographic result was obtained. No stents were required.. The sheath was removed hemostasis obtained with a Perclose device. The patient tolerated the procedure well. FINDINGS: The renal arteries are atretic consistent with the patient's history for dialysis. There is diffuse vascular calcification noted. The abdominal aorta is widely patent. Aortic bifurcation is patent. The common external iliac arteries are very tortuous but widely patent without radiographically significant stenosis. The infrarenal runoff is normal to the knees bilaterally. The vessels are calcified. There is no radiographically significant stenosis. There is severe bilateral trifurcation and tibial occlusive disease. On the left the posterior tibial artery is chronically occluded. The left peroneal artery is small and calcified with diffuse disease. The left anterior tibial artery is dominant with severe disease in its mid to distal segments. There is severe left pedal occlusive disease. IMPRESSION: 1.Successful left peroneal artery CS I atherectomy and balloon angioplasty 2. Successful left anterior tibial artery angioplasty. 3. Severe left pedal occlusive disease.
--- NOTE | 2018-01-24 20:31 | PN ---
DATE: 01/24/2018 SUBJECTIVE: The patient is seen in the ICU. He is lying in bed. He is awake, he is much more alert today. He had ultrafiltration done yesterday for 1 hour, 1 kilo of fluid was removed. He is currently receiving dialysis. He denies any chest pain. He denies any shortness of breath. He denies any abdominal pain. He does have some pain in his left foot. He is scheduled to go for an arteriogram. PHYSICAL EXAMINATION: GENERAL: Morbidly obese elderly male lying in bed in the ICU. VITAL SIGNS: Blood pressure 112/39, heart rate 60, respiratory rate 20, temperature 98.3. HEENT: Normocephalic, atraumatic, positive pallor. NECK: Supple, no JVD. LUNGS: Bilateral equal air entry, bilateral rhonchi, basilar rales, no other added sounds. CARDIAC: S1 and S2, regular rate and rhythm, no murmur, no rub. ABDOMEN: Obese, distended, soft, nontender, bowel sounds present. EXTREMITIES: A 1+ pitting edema, nonhealing ulcer on the lateral aspect of the left fifth toe, ulcer on the left first toe, dry, scaly skin which is hairless. INTAKE AND OUTPUT: 350/1000 LABORATORY DATA: WBC 7.5, hemoglobin 9.1, hematocrit 29.8, platelets 199. Sodium 143, potassium 4.1, chloride 100, CO2 of 26, BUN 60, creatinine 8.1, glucose 76, A1c 6, calcium 7.8, phosphorus 6, magnesium 1.8. C-reactive protein greater than 15, albumin 3.4, globulin 3.2. Blood cultures, no growth so far. Left foot culture pending. CT of the abdomen, pelvis, and chest showed extensive emphysema in the upper lobes, unremarkable mediastinum, no other findings. No enlarged lymph nodes. No acute findings in the abdomen. Extremity ultrasound: Bilateral tibial disease, greater on the left, no DVT. CURRENT MEDICATIONS: Doxycycline 100 every 12 hours, Ecotrin 81, insulin, meropenem 500 every 12 hours, Protonix, Tylenol, Xopenex, and Zofran. ASSESSMENT: 1. Severe sepsis/profound hypotension, improving, blood pressure is much better today. 2. Severe peripheral vascular disease, bilateral tibial occlusive disease, nonhealing ulcer of the left foot. 3. Iqw-xqlywzn-ftyxowbbz diabetes. 4. History of hypertension. 5. End-stage renal disease. 6. Anemia of chronic kidney disease. 7. Hyperphosphatemia. 8. Coronary artery disease, congestive heart failure. 9. Chronic obstructive pulmonary disease. PLAN: 1. The patient is currently receiving dialysis. He is stable. Blood pressure is holding. We will ultrafiltrate about 1 kg. 2. The patient will receive Aranesp on dialysis. 3. Unable to get iron because of infection. 4. Agree with antibiotics to cover for osteomyelitis. 5. Follow up cultures. 6. Continue to monitor hemodynamic status. 7. ID followup. 8. Case discussed with Dr. Duff clinical radiologist, case discussed with ICU nursing staff, case discussed with ICU residents, case discussed with dialysis staff. More than 35 minutes was spent in the care of this critically ill patient. Yadira Fox MD
--- NOTE | 2018-01-25 03:36 | CP.PCM.PCO ---
<Ry Faria - Last Filed: 01/25/18 03:25> Addendum Addendum: Resident hand alterations seamstress was paged regarding patient having no peripheral IV access and requiring heparin gtt. Multiple nurses from floors have attempted with no success. LUE cannot be utilized due to limb alert. RUE showed multiple prior attempts with no clear vessels seen. LE vessels were also difficult. Right EJ was successfully inserted, but the patient pulled it out again. Right EJ was again attempted twice but patient became agitated and would not agree to further punctures and refused our attempts. The medical team explained to the patient the importance of venous access. Will attempt again later. Ry Faria PGY2 <Omero Syed - Last Filed: 01/25/18 05:39> Attending/Attestation - Attestation I have personally seen and examined this patient.: No I have fully participated in the care of the patient.: No I have reviewed all pertinent clinical information: No
[2018-01-25 06:26] LABS: BASO # 0.02 K/mm3 (0.0-2.0); BASO % 0.3 % (0.0-3.0); EOS # 0.2 (0.0-0.7); EOS % 3.1 % (1.5-5.0); GRAN % 68.4 % (50.0-68.0); HEMOGLOBIN 8.9 g/dL (14.0-18.0); LYMPH % 17.4 % (22.0-35.0); MEAN CELL VOLUME 85.5 fl (80.0-105.0); MEAN CORPUSCULAR HEMOGLOBIN 25.7 pg (25.0-35.0); MEAN CORPUSCULAR HGB CONC 30.1 g/dl (31.0-37.0); MEAN PLATELET VOLUME 10.7 fl (7.0-11.0); MONO # 0.6 (0.1-0.6); MONO % 10.8 % (1.0-6.0); RBC 3.46 10^6/uL (3.5-6.1); RED CELL DISTRIBUTION WIDTH 17.5 % (11.5-14.5); WHITE BLOOD COUNT 5.9 10^3/ul (4.5-11.0)
[2018-01-25] MEDS: Pantoprazole 40 mg EC Tab PO SCH (07:00)
[2018-01-25 07:15] LABS: ALB/GLOB RATIO 1.1 (1.1-1.8); ALBUMIN 3.4 g/dL (3.0-4.8); BILIRUBIN,DIRECT 0.5 mg/dL (0.0-0.4); CALCIUM 7.9 mg/dL (8.4-10.5)
[2018-01-25] MEDS: Insulin Reg-MEDIUM-Coverage SC SCH ×4 (07:30→22:00)
--- NOTE | 2018-01-25 07:59 | CP.PCM.PN ---
<Sarah Talley - Last Filed: 01/25/18 14:21> Subjective - Date & Time of Evaluation Date of Evaluation: 01/25/18 Time of Evaluation: 08:28 - Subjective Subjective: [id number] ID Progress note for Dr. Singh Patient seen and examined at bedside during HD. No acute events overnight as per nursing. Patient denied acute complaints of fever, chills, headache, dizziness, chest pain, palpitations, SOB, cough, abd pain, nausea, vomiting, bowel/bladder complaints, pain/swelling in legs b/l. Objective - Vital Signs/Intake and Output Vital Signs (last 24 hours): Temp Pulse Resp BP Pulse Ox 98 F 64 32 H 114/48 L 93 L 01/25/18 04:00 01/25/18 07:44 01/25/18 07:16 01/25/18 07:16 01/25/18 07:16 Intake and Output: 01/25/18 01/25/18 06:59 18:59 Intake Total 610 150 Output Total 1000 Balance -390 150 - Medications Medications: Current Medications Acetaminophen (Tylenol 325mg Tab) 650 mg PO Q6 PRN PRN Reason: TEMP>=99.5F Acetaminophen (Tylenol 650 Mg Supp) 650 mg RC Q6H PRN PRN Reason: TEMP>=99.5F Aspirin (Ecotrin) 81 mg PO DAILY [facility] Last Admin: 01/24/18 09:46 Dose: 81 mg Benzonatate (Tessalon Perles) 200 mg PO TID [facility] Last Admin: 01/24/18 18:31 Dose: 200 mg Dextrose (Dextrose 50% Inj) 25 ml IV STAT PRN; Protocol PRN Reason: Hypoglycemia Protocol Docusate Sodium (Colace) 100 mg PO TID [facility] Last Admin: 01/24/18 18:31 Dose: 100 mg Heparin Sodium (Porcine) (Heparin) 5,000 units SC Q8 JERE PRN Reason: Protocol Last Admin: 01/24/18 05:00 Dose: Not Given Doxycycline Hyclate 100 mg/ (Sodium Chloride) 100 mls @ 100 mls/hr IVPB Q12 JERE PRN Reason: Protocol Last Admin: 01/24/18 23:00 Dose: 100 mls/hr Dextrose (Dextrose 5% In Water 1000 Ml) 1,000 mls @ 0 mls/hr IV .Q0M PRN; Protocol; Per Protocol PRN Reason: Hypoglycemia Protocol Meropenem 500 mg/ Sodium (Chloride) 50 mls @ 100 mls/hr IVPB Q12 JERE PRN Reason: Protocol Stop: 01/30/18 22:01 Last Admin: 01/24/18 23:00 Dose: 100 mls/hr Heparin Sodium/Sodium Chloride (Heparin 07001 Units/250ml 1/2 Normal Saline) 25 ,000 units in 250 mls @ 21.339 mls/hr IV .[id number] PRN; Protocol; 18 UNITS/KG/HR PRN Reason: ADJUST RATE PER PROTOCOL Last Titration: 01/25/18 07:30 Dose: 18 units/kg/hr, 21.339 mls/hr Insulin Human Regular (Humulin R Med) 0 units SC ACHS JERE PRN Reason: Protocol Last Admin: 01/24/18 18:00 Dose: Not Given Levalbuterol HCl (Xopenex) 0.63 mg IH [id number] [facility] Last Admin: 01/24/18 18:35 Dose: 0.63 mg Ondansetron HCl (Zofran Inj) 4 mg IVP Q4H PRN PRN Reason: Nausea/Vomiting Pantoprazole Sodium (Protonix Ec Tab) 40 mg PO 0600 [facility] Last Admin: 01/25/18 07:00 Dose: 40 mg - Labs Labs: 01/25/18 05:25 01/25/18 05:25 PT 13.3 SECONDS (9.4-12.5) H 01/23/18 11:00 INR 1.15 01/23/18 11:00 APTT 36.2 Seconds (25.1-36.5) 01/25/18 05:25 - Constitutional Appears: Non-toxic, No Acute Distress - Head Exam Head Exam: ATRAUMATIC, NORMAL INSPECTION, NORMOCEPHALIC - Eye Exam Eye Exam: EOMI, Normal appearance, PERRL. absent: Conjunctival injection, Scleral icterus - ENT Exam ENT Exam: Mucous Membranes Moist - Respiratory Exam Respiratory Exam: Clear to Ausculation Bilateral, NORMAL BREATHING PATTERN. absent: Accessory Muscle Use, Rales, Rhonchi, Wheezes, Respiratory Distress - Cardiovascular Exam Cardiovascular Exam: RRR, +S1, +S2 - GI/Abdominal Exam GI & Abdominal Exam: Soft, Normal Bowel Sounds. absent: Tenderness - Rectal Exam Rectal Exam: Deferred - Extremities Exam Extremities Exam: absent: Pedal Edema Additional comments: left 5th toe lesion noted left 3rd toe s/p amputation noted - Neurological Exam Neurological Exam: Alert, Awake, CN II-XII Intact, Oriented x3 - Psychiatric Exam Psychiatric exam: Normal Affect, Normal Mood - Skin Skin Exam: Dry, Warm Assessment and Plan - Assessment and Plan (Free Text) Assessment: 78yo male PMHx ESRD on HD (MWF), DM 2 (on insulin), HTN, 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 ID consulted for possible sepsis Plan: -blood cultrue prelim negative x 2 -Wound culture: gram(-) hailey and gram(+) cocci prelim- f/u final -procalcitonin 0.3 -ESR 57, CRP > 15 -foot x-ray reviewed- no signs of osteo -continue Doxycycline and Merrem and monitor clinically -podiatry reccs noted -continue management as per primary and podiatry -recommend f/u outpatient with podiatry Discussed with Dr. Samantha Talley PGY3 <Dameon Singh - Last Filed: 01/25/18 16:35> Objective - Vital Signs/Intake and Output Vital Signs (last 24 hours): Temp Pulse Resp BP Pulse Ox 98.2 F 67 24 135/55 L 96 01/25/18 11:39 01/25/18 16:01 01/25/18 16:01 01/25/18 16:01 01/25/18 15:00 Intake and Output: 01/25/18 01/25/18 06:59 18:59 Intake Total 610 730 Output Total 1000 Balance -390 730 - Medications Medications: Current Medications Acetaminophen (Tylenol 325mg Tab) 650 mg PO Q6 PRN PRN Reason: TEMP>=99.5F Acetaminophen (Tylenol 650 Mg Supp) 650 mg RC Q6H PRN PRN Reason: TEMP>=99.5F Aspirin (Ecotrin) 81 mg PO DAILY [facility] Last Admin: 01/25/18 08:59 Dose: 81 mg Benzonatate (Tessalon Perles) 200 mg PO TID [facility] Last Admin: 01/25/18 14:28 Dose: 200 mg Clonidine HCl (Catapres) 0.1 mg PO BID [facility] Last Admin: 01/25/18 09:42 Dose: Not Given Dextrose (Dextrose 50% Inj) 25 ml IV STAT PRN; Protocol PRN Reason: Hypoglycemia Protocol Docusate Sodium (Colace) 100 mg PO TID [facility] Last Admin: 01/25/18 14:28 Dose: 100 mg Heparin Sodium (Porcine) (Heparin) 5,000 units SC Q8 JERE PRN Reason: Protocol Last Admin: 01/24/18 05:00 Dose: Not Given Doxycycline Hyclate 100 mg/ (Sodium Chloride) 100 mls @ 100 mls/hr IVPB Q12 JERE PRN Reason: Protocol Last Admin: 01/25/18 08:59 Dose: 100 mls/hr Dextrose (Dextrose 5% In Water 1000 Ml) 1,000 mls @ 0 mls/hr IV .Q0M PRN; Protocol; Per Protocol PRN Reason: Hypoglycemia Protocol Meropenem 500 mg/ Sodium (Chloride) 50 mls @ 100 mls/hr IVPB Q12 JERE PRN Reason: Protocol Stop: 01/30/18 22:01 Last Admin: 01/25/18 08:59 Dose: 100 mls/hr Heparin Sodium/Sodium Chloride (Heparin 15513 Units/250ml 1/2 Normal Saline) 25 ,000 units in 250 mls @ 21.339 mls/hr IV .[id number] PRN; Protocol; 18 UNITS/KG/HR PRN Reason: ADJUST RATE PER PROTOCOL Last Titration: 01/25/18 16:04 Dose: 15 units/kg/hr, 17.783 mls/hr Insulin Human Regular (Humulin R Med) 0 units SC ACHS [facility] PRN Reason: Protocol Last Admin: 01/25/18 11:31 Dose: Not Given Levalbuterol HCl (Xopenex) 0.63 mg IH [id number] [facility] Last Admin: 01/25/18 13:22 Dose: Not Given Ondansetron HCl (Zofran Inj) 4 mg IVP Q4H PRN PRN Reason: Nausea/Vomiting Pantoprazole Sodium (Protonix Ec Tab) 40 mg PO 0600 [facility] Last Admin: 01/25/18 07:00 Dose: 40 mg - Labs Labs: 01/25/18 05:25 01/25/18 05:25 PT 13.3 SECONDS (9.4-12.5) H 01/23/18 11:00 INR 1.15 01/23/18 11:00 APTT 150.4 Seconds (25.1-36.5) H* 01/25/18 14:20 Assessment and Plan - Assessment and Plan (Free Text) Plan: Infectious Diseases Attending Physician Addendum Patient seen and examined, discussed with medical coding manager. I have reviewed the pertinent clinical information for the patient, including history of present illness, medical, personal and social histories, lab results and imaging findings. I agree with the above findings, assessment and plan. In addition, will continue Merrem and Doxycycline day 2 for SIRS probably from overdialysis, no obvious signs of sepsis. Patient does have necrotic left foot toe - will follow up plans of Podiatry especially in light of peripheral arterial disease. Patient completed 4 weeks of antibiotics for osteomyelitis of this toe a month ago.
[2018-01-25] MEDS: Levalbuterol 0.63 MG/3 ML Inhal Soln UD IH SCH ×3 (08:28→20:10)
[2018-01-25] MEDS: Meropenem 500 MG in Sodium Chloride 0.9% 50 ML IVPB SCH ×2 (08:59→21:01)
--- NOTE | 2018-01-25 10:13 | PN ---
DATE: 01/25/2018 CARDIOLOGY FOLLOWUP SUBJECTIVE: The patient is without distress in bed. PHYSICAL EXAMINATION: VITAL SIGNS: Blood pressure varies from 126 to the last reading of 190, heart rate is in the 70s. NECK: Negative JVD. LUNGS: Without rales. HEART: Reveals S1, S2. EXTREMITIES: Without change. LABORATORY DATA: Hemoglobin is 8.9. Chemistries: Potassium is 3.8. IMPRESSION: 1. Transient hypotension. 2. End-stage renal disease. 3. Peripheral vascular disease. 4. Status post anterior tibial angioplasty. 5. Hypertension. 6. Diabetes mellitus. PLAN: Given these findings, if the patient's blood pressure stays elevated, we will start the patient on clonidine. Yong Duran MD
--- NOTE | 2018-01-25 10:20 | CP.CCUPN ---
<Lori Ledezma - Last Filed: 01/25/18 11:21> CCU Subjective - Physician Review Subjective (Free Text): ICU Progress note for Dr. Adrian Ledezma, PGY 1 Patient seen and examined this morning at bedside. Overnight patient lost IV access, numerous people weer unable to obtain peripheral IV and a central line was placed. Patient removed the central line and another attempt was made to place central line to continue heparin drip. Patient was combative and attempt was unsuccessful. Patient refused further intervention and did not recieve Heparin between 3 am and 7:30 am. Risks of not recieving Heparin were clearly explained to the patient who indicated that he understood. This morning a peripheral line was obtained and the patient was restarted on heparin drip. Patient is resting comfortably in bed. BP has been stable overnight and is stable currently while receiving dialysis. DP and PT pulses and dopplerable bilaterally. Patient otherwise denies BAEZA, CP, SOB, abdominal pain, nausea vomiting. 01/25/18 07:13 CCU Objective - Vital Signs / Intake & Output Vital Signs (Last 4 hours): Vital Signs Temp Pulse Resp BP Pulse Ox 01/25/18 09:42 64 111/83 01/25/18 08:00 98.2 F 77 22 126/54 L 94 L 01/25/18 07:44 64 01/25/18 07:16 73 32 H 114/48 L 93 L 01/25/18 07:00 68 25 H 160/53 H 93 L 01/25/18 06:46 64 24 138/119 H 94 L 01/25/18 06:30 65 22 123/34 L 84 L 01/25/18 06:15 88 31 H 127/69 Intake and Output (Last 8hrs): Intake & Output 01/24/18 01/25/18 01/25/18 22:59 06:59 14:59 Intake Total 531 610 620 Output Total 1000 Balance 531 -390 620 Intake: IV 171 210 300 IVPB 150 150 150 heparin 21 60 Oral 360 400 320 Output: Emesis 0 Oral Regurgitation 0 Other 1000 Other: # Bowel Movements 0 0 - Physical Exam Head: Positive for: Atraumatic, Normocephalic Mouth: Positive for: Moist Mucous Membranes Neck: Positive for: Normal Range of Motion Respiratory/Chest: Positive for: Good Air Exchange, Rales (RLL). Negative for: Respiratory Distress, Accessory Muscle Use, Tachypneic Cardiovascular: Positive for: Regular Rate and Rhythm. Negative for: Rub, Muffled Abdomen: Negative for: Tenderness, Peritoneal Signs, Rebound, Guarding Upper Extremity: Positive for: Normal ROM Lower Extremity: Positive for: Other (left foot; there is an superficial ulceration noted to left great toe; there is blueish discoloration to the left 5th toe with dime sized necrotic ulceration to the 5th toe. no erythema to foot or leg. ). Negative for: CALF TENDERNESS, NORMAL PULSES ( no palpable pulses felt in dorasal pedis or posterior tibial bilaterally. ), Normal ROM, Tenderness Neurological: Positive for: GCS=15, Speech Normal Skin: Positive for: Warm, Dry, Normal Color Psychiatric: Positive for: Alert, Oriented x 3 - Medications Active Medications: Active Medications Generic Name Dose Route Start Last Admin Trade Name Freq PRN Reason Stop Dose Admin Acetaminophen 650 mg 01/23/18 11:44 Tylenol 325mg Tab PO Q6 PRN TEMP>=99.5F Acetaminophen 650 mg 01/23/18 11:44 Tylenol 650 Mg Supp RC Q6H PRN TEMP>=99.5F Aspirin 81 mg 01/23/18 11:45 01/25/18 08:59 Ecotrin PO 81 mg DAILY JERE Administration Benzonatate 200 mg 01/23/18 14:00 01/25/18 08:59 Tessalon Perles PO 200 mg TID JERE Administration Clonidine HCl 0.1 mg 01/25/18 10:00 01/25/18 09:42 Catapres PO Not Given BID JERE Dextrose 25 ml 01/23/18 15:48 Dextrose 50% Inj IV STAT PRN Hypoglycemia Protocol Protocol Docusate Sodium 100 mg 01/23/18 14:00 01/25/18 08:59 Colace PO 100 mg TID JERE Administration Heparin Sodium (Porcine) 5,000 units 01/23/18 16:00 01/24/18 05:00 Heparin SC Not Given Q8 JERE Protocol Doxycycline Hyclate 100 mg/ 100 mls @ 100 mls/hr 01/23/18 11:45 01/25/18 08: 59 Sodium Chloride IVPB 100 mls/hr Q12 JERE Administration Protocol Dextrose 1,000 mls @ 0 mls/hr 01/23/18 15:48 Dextrose 5% In Water 1000 Ml IV .Q0M PRN Hypoglycemia Protocol Protocol Per Protocol Meropenem 500 mg/ Sodium 50 mls @ 100 mls/hr 01/23/18 22:00 01/25/18 08:59 Chloride IVPB 01/30/18 22:01 100 mls/hr Q12 JERE Administration Protocol Heparin Sodium/Sodium Chloride 25,000 units in 250 mls @ 21.339 mls/hr 17:35 01/25/18 07:30 Heparin 80601 Units/250ml 1/2 Normal Saline IV 18 units/kg/hr .[id number] PRN 21.339 mls/hr ADJUST RATE PER PROTOCOL Titration Protocol 18 UNITS/KG/HR Insulin Human Regular 0 units 01/23/18 16:30 01/25/18 07:30 Humulin R Med SC Not Given ACHS JERE Protocol Levalbuterol HCl 0.63 mg 01/24/18 13:29 01/25/18 08:28 Xopenex IH 0.63 mg [id number] JERE Administration Ondansetron HCl 4 mg 01/23/18 11:44 Zofran Inj IVP Q4H PRN Nausea/Vomiting Pantoprazole Sodium 40 mg 01/24/18 06:00 01/25/18 07:00 Protonix Ec Tab PO 40 mg 0600 [facility] Administration - Patient Studies Lab Studies: Microbiology Studies 01/23/18 18:34 Gram Stain - Preliminary Calf - Foot-Left Lab Studies 01/25/18 01/25/18 01/25/18 Range/Units 05:25 05:25 05:25 WBC 5.9 D (4.5-11.0) 10^3/ul RBC 3.46 L (3.5-6.1) 10^6/uL Hgb 8.9 L (14.0-18.0) g/dL Hct 29.6 L (42.0-52.0) % MCV 85.5 (80.0-105.0) fl MCH 25.7 (25.0-35.0) pg MCHC 30.1 L (31.0-37.0) g/dl RDW 17.5 H (11.5-14.5) % Plt Count 187 (120.0-450.0) 10^3/uL MPV 10.7 (7.0-11.0) fl Gran % 68.4 H (50.0-68.0) % Lymph % (Auto) 17.4 L (22.0-35.0) % Bennett % (Auto) 10.8 H (1.0-6.0) % Eos % (Auto) 3.1 (1.5-5.0) % Baso % (Auto) 0.3 (0.0-3.0) % Gran # 4.00 (1.4-6.5) Lymph # (Auto) 1.0 L (1.2-3.4) Bennett # (Auto) 0.6 (0.1-0.6) Eos # (Auto) 0.2 (0.0-0.7) Baso # (Auto) 0.02 (0.0-2.0) K/mm3 ESR (0.00-15.0) mm/hr APTT 36.2 (25.1-36.5) Seconds Sodium 139 (132-148) mmol/L Potassium 3.8 (3.6-5.0) mmol/L Chloride 99 (98-107) mmol/L Carbon Dioxide 27 (21-33) mmol/L Anion Gap 17 (10-20) BUN 43 H (7-21) mg/dL Creatinine 6.7 H (0.8-1.5) mg/dl Est GFR ( Amer) 10 Est GFR (Non-Af Amer) 8 POC Glucose (mg/dL) (65-110) mg/dL Random Glucose 77 (70-110) mg/dL Hemoglobin A1c (4.2-6.5) % Calcium 7.9 L (8.4-10.5) mg/dL Phosphorus 5.5 H (2.5-4.5) mg/dL Magnesium 1.7 (1.7-2.2) mg/dL Total Bilirubin 0.6 (0.2-1.3) mg/dL Direct Bilirubin 0.5 H (0.0-0.4) mg/dL AST 30 (17-59) U/L ALT 13 (7-56) U/L Alkaline Phosphatase 88 (38-126) U/L C-React Prot High Sens (1.00-3.00) mg/L Total Protein 6.5 (5.8-8.3) g/dL Albumin 3.4 (3.0-4.8) g/dL Globulin 3.1 gm/dL Albumin/Globulin Ratio 1.1 (1.1-1.8) 01/24/18 01/24/18 01/24/18 Range/Units 23:12 22:28 18:05 WBC (4.5-11.0) 10^3/ul RBC (3.5-6.1) 10^6/uL Hgb (14.0-18.0) g/dL Hct (42.0-52.0) % MCV (80.0-105.0) fl MCH (25.0-35.0) pg MCHC (31.0-37.0) g/dl RDW (11.5-14.5) % Plt Count (120.0-450.0) 10^3/uL MPV (7.0-11.0) fl Gran % (50.0-68.0) % Lymph % (Auto) (22.0-35.0) % Bennett % (Auto) (1.0-6.0) % Eos % (Auto) (1.5-5.0) % Baso % (Auto) (0.0-3.0) % Gran # (1.4-6.5) Lymph # (Auto) (1.2-3.4) Bennett # (Auto) (0.1-0.6) Eos # (Auto) (0.0-0.7) Baso # (Auto) (0.0-2.0) K/mm3 ESR (0.00-15.0) mm/hr APTT 42.1 H (25.1-36.5) Seconds Sodium (132-148) mmol/L Potassium (3.6-5.0) mmol/L Chloride (98-107) mmol/L Carbon Dioxide (21-33) mmol/L Anion Gap (10-20) BUN (7-21) mg/dL Creatinine (0.8-1.5) mg/dl Est GFR ( Amer) Est GFR (Non-Af Amer) POC Glucose (mg/dL) 85 95 (65-110) mg/dL Random Glucose (70-110) mg/dL Hemoglobin A1c (4.2-6.5) % Calcium (8.4-10.5) mg/dL Phosphorus (2.5-4.5) mg/dL Magnesium (1.7-2.2) mg/dL Total Bilirubin (0.2-1.3) mg/dL Direct Bilirubin (0.0-0.4) mg/dL AST (17-59) U/L ALT (7-56) U/L Alkaline Phosphatase (38-126) U/L C-React Prot High Sens (1.00-3.00) mg/L Total Protein (5.8-8.3) g/dL Albumin (3.0-4.8) g/dL Globulin gm/dL Albumin/Globulin Ratio (1.1-1.8) 01/24/18 01/24/18 01/24/18 Range/Units 11:30 09:00 09:00 WBC (4.5-11.0) 10^3/ul RBC (3.5-6.1) 10^6/uL Hgb (14.0-18.0) g/dL Hct (42.0-52.0) % MCV (80.0-105.0) fl MCH (25.0-35.0) pg MCHC (31.0-37.0) g/dl RDW (11.5-14.5) % Plt Count (120.0-450.0) 10^3/uL MPV (7.0-11.0) fl Gran % (50.0-68.0) % Lymph % (Auto) (22.0-35.0) % Bennett % (Auto) (1.0-6.0) % Eos % (Auto) (1.5-5.0) % Baso % (Auto) (0.0-3.0) % Gran # (1.4-6.5) Lymph # (Auto) (1.2-3.4) Bennett # (Auto) (0.1-0.6) Eos # (Auto) (0.0-0.7) Baso # (Auto) (0.0-2.0) K/mm3 ESR 57 H (0.00-15.0) mm/hr APTT (25.1-36.5) Seconds Sodium (132-148) mmol/L Potassium (3.6-5.0) mmol/L Chloride (98-107) mmol/L Carbon Dioxide (21-33) mmol/L Anion Gap (10-20) BUN (7-21) mg/dL Creatinine (0.8-1.5) mg/dl Est GFR ( Amer) Est GFR (Non-Af Amer) POC Glucose (mg/dL) 137 H (65-110) mg/dL Random Glucose (70-110) mg/dL Hemoglobin A1c (4.2-6.5) % Calcium (8.4-10.5) mg/dL Phosphorus (2.5-4.5) mg/dL Magnesium (1.7-2.2) mg/dL Total Bilirubin (0.2-1.3) mg/dL Direct Bilirubin (0.0-0.4) mg/dL AST (17-59) U/L ALT (7-56) U/L Alkaline Phosphatase (38-126) U/L C-React Prot High Sens > 15.00 H (1.00-3.00) mg/L Total Protein (5.8-8.3) g/dL Albumin (3.0-4.8) g/dL Globulin gm/dL Albumin/Globulin Ratio (1.1-1.8) 01/24/18 Range/Units 05:45 WBC (4.5-11.0) 10^3/ul RBC (3.5-6.1) 10^6/uL Hgb (14.0-18.0) g/dL Hct (42.0-52.0) % MCV (80.0-105.0) fl MCH (25.0-35.0) pg MCHC (31.0-37.0) g/dl RDW (11.5-14.5) % Plt Count (120.0-450.0) 10^3/uL MPV (7.0-11.0) fl Gran % (50.0-68.0) % Lymph % (Auto) (22.0-35.0) % Bennett % (Auto) (1.0-6.0) % Eos % (Auto) (1.5-5.0) % Baso % (Auto) (0.0-3.0) % Gran # (1.4-6.5) Lymph # (Auto) (1.2-3.4) Bennett # (Auto) (0.1-0.6) Eos # (Auto) (0.0-0.7) Baso # (Auto) (0.0-2.0) K/mm3 ESR (0.00-15.0) mm/hr APTT (25.1-36.5) Seconds Sodium (132-148) mmol/L Potassium (3.6-5.0) mmol/L Chloride (98-107) mmol/L Carbon Dioxide (21-33) mmol/L Anion Gap (10-20) BUN (7-21) mg/dL Creatinine (0.8-1.5) mg/dl Est GFR ( Amer) Est GFR (Non-Af Amer) POC Glucose (mg/dL) (65-110) mg/dL Random Glucose (70-110) mg/dL Hemoglobin A1c 6.0 (4.2-6.5) % Calcium (8.4-10.5) mg/dL Phosphorus (2.5-4.5) mg/dL Magnesium (1.7-2.2) mg/dL Total Bilirubin (0.2-1.3) mg/dL Direct Bilirubin (0.0-0.4) mg/dL AST (17-59) U/L ALT (7-56) U/L Alkaline Phosphatase (38-126) U/L C-React Prot High Sens (1.00-3.00) mg/L Total Protein (5.8-8.3) g/dL Albumin (3.0-4.8) g/dL Globulin gm/dL Albumin/Globulin Ratio (1.1-1.8) Laboratory Results - last 24 hr 01/24/18 01/24/18 01/24/18 05:45 09:00 09:00 WBC RBC Hgb Hct MCV MCH MCHC RDW Plt Count MPV Gran % Lymph % (Auto) Bennett % (Auto) Eos % (Auto) Baso % (Auto) Gran # Lymph # (Auto) Bennett # (Auto) Eos # (Auto) Baso # (Auto) ESR 57 H APTT Sodium Potassium Chloride Carbon Dioxide Anion Gap BUN Creatinine Est GFR ( Amer) Est GFR (Non-Af Amer) POC Glucose (mg/dL) Random Glucose Hemoglobin A1c 6.0 Calcium Phosphorus Magnesium Total Bilirubin Direct Bilirubin AST ALT Alkaline Phosphatase C-React Prot High Sens > 15.00 H Total Protein Albumin Globulin Albumin/Globulin Ratio 01/24/18 01/24/18 01/24/18 11:30 18:05 22:28 WBC RBC Hgb Hct MCV MCH MCHC RDW Plt Count MPV Gran % Lymph % (Auto) Bennett % (Auto) Eos % (Auto) Baso % (Auto) Gran # Lymph # (Auto) Bennett # (Auto) Eos # (Auto) Baso # (Auto) ESR APTT Sodium Potassium Chloride Carbon Dioxide Anion Gap BUN Creatinine Est GFR ( Amer) Est GFR (Non-Af Amer) POC Glucose (mg/dL) 137 H 95 85 Random Glucose Hemoglobin A1c Calcium Phosphorus Magnesium Total Bilirubin Direct Bilirubin AST ALT Alkaline Phosphatase C-React Prot High Sens Total Protein Albumin Globulin Albumin/Globulin Ratio 01/24/18 01/25/18 01/25/18 23:12 05:25 05:25 WBC 5.9 D RBC 3.46 L Hgb 8.9 L Hct 29.6 L MCV 85.5 MCH 25.7 MCHC 30.1 L RDW 17.5 H Plt Count 187 MPV 10.7 Gran % 68.4 H Lymph % (Auto) 17.4 L Bennett % (Auto) 10.8 H Eos % (Auto) 3.1 Baso % (Auto) 0.3 Gran # 4.00 Lymph # (Auto) 1.0 L Bennett # (Auto) 0.6 Eos # (Auto) 0.2 Baso # (Auto) 0.02 ESR APTT 42.1 H Sodium 139 Potassium 3.8 Chloride 99 Carbon Dioxide 27 Anion Gap 17 BUN 43 H Creatinine 6.7 H Est GFR ( Amer) 10 Est GFR (Non-Af Amer) 8 POC Glucose (mg/dL) Random Glucose 77 Hemoglobin A1c Calcium 7.9 L Phosphorus 5.5 H Magnesium 1.7 Total Bilirubin 0.6 Direct Bilirubin 0.5 H AST 30 ALT 13 Alkaline Phosphatase 88 C-React Prot High Sens Total Protein 6.5 Albumin 3.4 Globulin 3.1 Albumin/Globulin Ratio 1.1 01/25/18 05:25 WBC RBC Hgb Hct MCV MCH MCHC RDW Plt Count MPV Gran % Lymph % (Auto) Bennett % (Auto) Eos % (Auto) Baso % (Auto) Gran # Lymph # (Auto) Bennett # (Auto) Eos # (Auto) Baso # (Auto) ESR APTT 36.2 Sodium Potassium Chloride Carbon Dioxide Anion Gap BUN Creatinine Est GFR ( Amer) Est GFR (Non-Af Amer) POC Glucose (mg/dL) Random Glucose Hemoglobin A1c Calcium Phosphorus Magnesium Total Bilirubin Direct Bilirubin AST ALT Alkaline Phosphatase C-React Prot High Sens Total Protein Albumin Globulin Albumin/Globulin Ratio Fingerstick Blood Sugar Results: 72 Review of Systems - Review of Systems All systems: reviewed and no additional remarkable complaints except Review of Systems: as per HPI Critical Care Progress Note - Prophylaxis GI Prophylaxis GI: PPI - Prophylaxis DVT Prophylaxis DVT: SCDs - Nutrition Nutrition: Nutrition Category Date Time Status Renal Diet [DIET] Diets 01/24/18 Dinner Ordered Assessment/Plan - Assessment and Plan (Free Text) Assessment: 78 yr old male PMH HTN, CHF, ESRD (HHD), recent admission for osteomyelitis ( treated with IV merrem and Vanc) with hypotension and left toe wound. Patient received 500 cc bolus in ED with minimal improvement of his BP. He is alert and oriented on interview in the ED. Blood, urine and wound cultures ordered. Sepsis is considered due to left foot wound and history of osteomyelitis. CXR shows cardiomegaly and vascular congestion but no pulmonary effusion. EF on ECHO in November 61%. BNP >58415. Patient to have dialysis today, will remove additional fluid. No source of Hemorrhage identified no gross bleeding. Patient on numerous BP meds at home may consider poor clearance of home meds for cause of hypotension. patient neuro-intact with no falls; neurogenic shock unlikely. LE US negative and no right heart strain on EKG makes obstructive shock 2/2 PE unlikely. Patient admitted to the ICU. overnight patient lost peripheral IV access, central line was placed, patient forcby removed central line, second line was attempted but unsuccessful d/t patient combativeness, patient refused further lines and was not given heparin between 3am and 7:30 am , peripheral IV was reestablished this am and heparin restarted. patient is recieving dialysis now and is clear for transfer to telemetry after dialysis per IR. Plan: Neuro: - AOx3 - moves all extremities spontaneously past midline - no gross deficits, no aphasia or dysarthria - denies falls or head injury - continue to monitor Cardio: - BNP 40451, previous [id number] - PMH CHF, PAD EF 65% - Hold home BP meds in setting of hypotension/ normotension - cxr shows vascular congestion and mild cardiomegaly, no pulmonary edema or effusion noted - Angiogram 01/[address] Womack, Left posterior tibial arthrectomy, DP and PT easily dopplerable pulses left foot - maintain on heparin drip over weekend - imperative that IV [id number] is maintained for Heparin drip Pulm: - hx of CHF - lungs mild crackles RLL on exam - CXR shows no signs of pna/infiltrate - EKG shows no right heart strain - sat >90% on RA, maintain O2>90% GI: - denies abdominal pain - abdomen soft nontender, no guarding - LFTS show no abnormalities - GI ppx protonix Renal: - ESRD on dialysis - fistula in left hand, palpable thrill - K 3.8, Phos 5.5 - BUN/Cr 43/6.7, baseline Cr approximately 6 - receiving dialysis again today Endo: - maintain normoglycemia - ACHS BS checks - sliding scale insulin - continue to monitor Heme: - hgb/hct 9.1/29.8 - no signs of active bleeding - will continue to monitor ID - patient completed 28 days IV Merrem and vanc last month at home after admission in November - given Vanc and Zosyn in ED - blood cx (2), urine cx (1), wound cx (1); will follow results - WBC 7.5, mild Granulocytosis 78% - cxr negative for infectious signs - Foot XR shows chronic 5th toe fx but no signs of Osteo - ID Dr. 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 Adrian Ledezma, PGY 1 - Date & Time Date: 01/25/18 Time: 07:13 <Papito Campbell - Last Filed: 01/25/18 12:29> CCU Objective - Vital Signs / Intake & Output Vital Signs (Last 4 hours): Vital Signs Temp Pulse Resp BP Pulse Ox 01/25/18 11:39 98.2 F 64 22 97 01/25/18 10:31 61 24 161/68 H 94 L 01/25/18 10:16 63 21 156/44 H 95 01/25/18 10:00 63 18 91/69 L 93 L 01/25/18 09:45 63 18 65/25 L 94 L 01/25/18 09:42 64 111/83 01/25/18 09:33 65 24 111/83 92 L 01/25/18 09:17 64 25 H 178/115 H 93 L 01/25/18 09:01 69 16 198/88 H 93 L 01/25/18 09:00 64 25 H 92 L Intake and Output (Last 8hrs): Intake & Output 01/24/18 01/25/18 01/25/18 22:59 06:59 14:59 Intake Total 531 610 720 Output Total 1000 Balance 531 -390 720 Intake: IV 171 210 400 IVPB 150 150 150 heparin 21 60 Oral 360 400 320 Output: Emesis 0 Oral Regurgitation 0 Other 1000 Other: # Bowel Movements 0 0 - Medications Active Medications: Active Medications Generic Name Dose Route Start Last Admin Trade Name Freq PRN Reason Stop Dose Admin Acetaminophen 650 mg 01/23/18 11:44 Tylenol 325mg Tab PO Q6 PRN TEMP>=99.5F Acetaminophen 650 mg 01/23/18 11:44 Tylenol 650 Mg Supp RC Q6H PRN TEMP>=99.5F Aspirin 81 mg 01/23/18 11:45 01/25/18 08:59 Ecotrin PO 81 mg DAILY JERE Administration Benzonatate 200 mg 01/23/18 14:00 01/25/18 08:59 Tessalon Perles PO 200 mg TID JERE Administration Clonidine HCl 0.1 mg 01/25/18 10:00 01/25/18 09:42 Catapres PO Not Given BID JERE Dextrose 25 ml 01/23/18 15:48 Dextrose 50% Inj IV STAT PRN Hypoglycemia Protocol Protocol Docusate Sodium 100 mg 01/23/18 14:00 01/25/18 08:59 Colace PO 100 mg TID JERE Administration Heparin Sodium (Porcine) 5,000 units 01/23/18 16:00 01/24/18 05:00 Heparin SC Not Given Q8 [facility] Protocol Doxycycline Hyclate 100 mg/ 100 mls @ 100 mls/hr 01/23/18 11:45 01/25/18 08: 59 Sodium Chloride IVPB 100 mls/hr Q12 JERE Administration Protocol Dextrose 1,000 mls @ 0 mls/hr 01/23/18 15:48 Dextrose 5% In Water 1000 Ml IV .Q0M PRN Hypoglycemia Protocol Protocol Per Protocol Meropenem 500 mg/ Sodium 50 mls @ 100 mls/hr 01/23/18 22:00 01/25/18 08:59 Chloride IVPB 01/30/18 22:01 100 mls/hr Q12 JERE Administration Protocol Heparin Sodium/Sodium Chloride 25,000 units in 250 mls @ 21.339 mls/hr 17:35 01/25/18 12:13 Heparin 51558 Units/250ml 1/2 Normal Saline IV 18 units/kg/hr .[id number] PRN 21.339 mls/hr ADJUST RATE PER PROTOCOL Administration Protocol 18 UNITS/KG/HR Insulin Human Regular 0 units 01/23/18 16:30 01/25/18 11:31 Humulin R Med SC Not Given ACHS [facility] Protocol Levalbuterol HCl 0.63 mg 01/24/18 13:29 01/25/18 08:28 Xopenex IH 0.63 mg [id number] JERE Administration Ondansetron HCl 4 mg 01/23/18 11:44 Zofran Inj IVP Q4H PRN Nausea/Vomiting Pantoprazole Sodium 40 mg 01/24/18 06:00 01/25/18 07:00 Protonix Ec Tab PO 40 mg 0600 [facility] Administration - Patient Studies Lab Studies: Microbiology Studies 01/23/18 18:34 Gram Stain - Preliminary Calf - Foot-Left Wound Culture - Preliminary Gram Negative Wallace Gram Positive Cocci Lab Studies 01/25/18 01/25/18 01/25/18 Range/Units 11:10 07:58 05:25 WBC (4.5-11.0) 10^3/ul RBC (3.5-6.1) 10^6/uL Hgb (14.0-18.0) g/dL Hct (42.0-52.0) % MCV (80.0-105.0) fl MCH (25.0-35.0) pg MCHC (31.0-37.0) g/dl RDW (11.5-14.5) % Plt Count (120.0-450.0) 10^3/uL MPV (7.0-11.0) fl Gran % (50.0-68.0) % Lymph % (Auto) (22.0-35.0) % Bennett % (Auto) (1.0-6.0) % Eos % (Auto) (1.5-5.0) % Baso % (Auto) (0.0-3.0) % Gran # (1.4-6.5) Lymph # (Auto) (1.2-3.4) Bennett # (Auto) (0.1-0.6) Eos # (Auto) (0.0-0.7) Baso # (Auto) (0.0-2.0) K/mm3 APTT 36.2 (25.1-36.5) Seconds Sodium (132-148) mmol/L Potassium (3.6-5.0) mmol/L Chloride (98-107) mmol/L Carbon Dioxide (21-33) mmol/L Anion Gap (10-20) BUN (7-21) mg/dL Creatinine (0.8-1.5) mg/dl Est GFR ( Amer) Est GFR (Non-Af Amer) POC Glucose (mg/dL) 95 72 (65-110) mg/dL Random Glucose (70-110) mg/dL Hemoglobin A1c (4.2-6.5) % Calcium (8.4-10.5) mg/dL Phosphorus (2.5-4.5) mg/dL Magnesium (1.7-2.2) mg/dL Total Bilirubin (0.2-1.3) mg/dL Direct Bilirubin (0.0-0.4) mg/dL AST (17-59) U/L ALT (7-56) U/L Alkaline Phosphatase (38-126) U/L C-React Prot High Sens (1.00-3.00) mg/L Total Protein (5.8-8.3) g/dL Albumin (3.0-4.8) g/dL Globulin gm/dL Albumin/Globulin Ratio (1.1-1.8) 01/25/18 01/25/18 01/24/18 Range/Units 05:25 05:25 23:12 WBC 5.9 D (4.5-11.0) 10^3/ul RBC 3.46 L (3.5-6.1) 10^6/uL Hgb 8.9 L (14.0-18.0) g/dL Hct 29.6 L (42.0-52.0) % MCV 85.5 (80.0-105.0) fl MCH 25.7 (25.0-35.0) pg MCHC 30.1 L (31.0-37.0) g/dl RDW 17.5 H (11.5-14.5) % Plt Count 187 (120.0-450.0) 10^3/uL MPV 10.7 (7.0-11.0) fl Gran % 68.4 H (50.0-68.0) % Lymph % (Auto) 17.4 L (22.0-35.0) % Bennett % (Auto) 10.8 H (1.0-6.0) % Eos % (Auto) 3.1 (1.5-5.0) % Baso % (Auto) 0.3 (0.0-3.0) % Gran # 4.00 (1.4-6.5) Lymph # (Auto) 1.0 L (1.2-3.4) Bennett # (Auto) 0.6 (0.1-0.6) Eos # (Auto) 0.2 (0.0-0.7) Baso # (Auto) 0.02 (0.0-2.0) K/mm3 APTT 42.1 H (25.1-36.5) Seconds Sodium 139 (132-148) mmol/L Potassium 3.8 (3.6-5.0) mmol/L Chloride 99 (98-107) mmol/L Carbon Dioxide 27 (21-33) mmol/L Anion Gap 17 (10-20) BUN 43 H (7-21) mg/dL Creatinine 6.7 H (0.8-1.5) mg/dl Est GFR ( Amer) 10 Est GFR (Non-Af Amer) 8 POC Glucose (mg/dL) (65-110) mg/dL Random Glucose 77 (70-110) mg/dL Hemoglobin A1c (4.2-6.5) % Calcium 7.9 L (8.4-10.5) mg/dL Phosphorus 5.5 H (2.5-4.5) mg/dL Magnesium 1.7 (1.7-2.2) mg/dL Total Bilirubin 0.6 (0.2-1.3) mg/dL Direct Bilirubin 0.5 H (0.0-0.4) mg/dL AST 30 (17-59) U/L ALT 13 (7-56) U/L Alkaline Phosphatase 88 (38-126) U/L C-React Prot High Sens (1.00-3.00) mg/L Total Protein 6.5 (5.8-8.3) g/dL Albumin 3.4 (3.0-4.8) g/dL Globulin 3.1 gm/dL Albumin/Globulin Ratio 1.1 (1.1-1.8) 01/24/18 01/24/18 01/24/18 Range/Units 22:28 18:05 09:00 WBC (4.5-11.0) 10^3/ul RBC (3.5-6.1) 10^6/uL Hgb (14.0-18.0) g/dL Hct (42.0-52.0) % MCV (80.0-105.0) fl MCH (25.0-35.0) pg MCHC (31.0-37.0) g/dl RDW (11.5-14.5) % Plt Count (120.0-450.0) 10^3/uL MPV (7.0-11.0) fl Gran % (50.0-68.0) % Lymph % (Auto) (22.0-35.0) % Bennett % (Auto) (1.0-6.0) % Eos % (Auto) (1.5-5.0) % Baso % (Auto) (0.0-3.0) % Gran # (1.4-6.5) Lymph # (Auto) (1.2-3.4) Bennett # (Auto) (0.1-0.6) Eos # (Auto) (0.0-0.7) Baso # (Auto) (0.0-2.0) K/mm3 APTT (25.1-36.5) Seconds Sodium (132-148) mmol/L Potassium (3.6-5.0) mmol/L Chloride (98-107) mmol/L Carbon Dioxide (21-33) mmol/L Anion Gap (10-20) BUN (7-21) mg/dL Creatinine (0.8-1.5) mg/dl Est GFR ( Amer) Est GFR (Non-Af Amer) POC Glucose (mg/dL) 85 95 (65-110) mg/dL Random Glucose (70-110) mg/dL Hemoglobin A1c (4.2-6.5) % Calcium (8.4-10.5) mg/dL Phosphorus (2.5-4.5) mg/dL Magnesium (1.7-2.2) mg/dL Total Bilirubin (0.2-1.3) mg/dL Direct Bilirubin (0.0-0.4) mg/dL AST (17-59) U/L ALT (7-56) U/L Alkaline Phosphatase (38-126) U/L C-React Prot High Sens > 15.00 H (1.00-3.00) mg/L Total Protein (5.8-8.3) g/dL Albumin (3.0-4.8) g/dL Globulin gm/dL Albumin/Globulin Ratio (1.1-1.8) 01/24/18 Range/Units 05:45 WBC (4.5-11.0) 10^3/ul RBC (3.5-6.1) 10^6/uL Hgb (14.0-18.0) g/dL Hct (42.0-52.0) % MCV (80.0-105.0) fl MCH (25.0-35.0) pg MCHC (31.0-37.0) g/dl RDW (11.5-14.5) % Plt Count (120.0-450.0) 10^3/uL MPV (7.0-11.0) fl Gran % (50.0-68.0) % Lymph % (Auto) (22.0-35.0) % Bennett % (Auto) (1.0-6.0) % Eos % (Auto) (1.5-5.0) % Baso % (Auto) (0.0-3.0) % Gran # (1.4-6.5) Lymph # (Auto) (1.2-3.4) Bennett # (Auto) (0.1-0.6) Eos # (Auto) (0.0-0.7) Baso # (Auto) (0.0-2.0) K/mm3 APTT (25.1-36.5) Seconds Sodium (132-148) mmol/L Potassium (3.6-5.0) mmol/L Chloride (98-107) mmol/L Carbon Dioxide (21-33) mmol/L Anion Gap (10-20) BUN (7-21) mg/dL Creatinine (0.8-1.5) mg/dl Est GFR ( Amer) Est GFR (Non-Af Amer) POC Glucose (mg/dL) (65-110) mg/dL Random Glucose (70-110) mg/dL Hemoglobin A1c 6.0 (4.2-6.5) % Calcium (8.4-10.5) mg/dL Phosphorus (2.5-4.5) mg/dL Magnesium (1.7-2.2) mg/dL Total Bilirubin (0.2-1.3) mg/dL Direct Bilirubin (0.0-0.4) mg/dL AST (17-59) U/L ALT (7-56) U/L Alkaline Phosphatase (38-126) U/L C-React Prot High Sens (1.00-3.00) mg/L Total Protein (5.8-8.3) g/dL Albumin (3.0-4.8) g/dL Globulin gm/dL Albumin/Globulin Ratio (1.1-1.8) Laboratory Results - last 24 hr 01/24/18 01/24/18 01/24/18 05:45 09:00 18:05 WBC RBC Hgb Hct MCV MCH MCHC RDW Plt Count MPV Gran % Lymph % (Auto) Bennett % (Auto) Eos % (Auto) Baso % (Auto) Gran # Lymph # (Auto) Bennett # (Auto) Eos # (Auto) Baso # (Auto) APTT Sodium Potassium Chloride Carbon Dioxide Anion Gap BUN Creatinine Est GFR ( Amer) Est GFR (Non-Af Amer) POC Glucose (mg/dL) 95 Random Glucose Hemoglobin A1c 6.0 Calcium Phosphorus Magnesium Total Bilirubin Direct Bilirubin AST ALT Alkaline Phosphatase C-React Prot High Sens > 15.00 H Total Protein Albumin Globulin Albumin/Globulin Ratio 01/24/18 01/24/18 01/25/18 22:28 23:12 05:25 WBC 5.9 D RBC 3.46 L Hgb 8.9 L Hct 29.6 L MCV 85.5 MCH 25.7 MCHC 30.1 L RDW 17.5 H Plt Count 187 MPV 10.7 Gran % 68.4 H Lymph % (Auto) 17.4 L Bennett % (Auto) 10.8 H Eos % (Auto) 3.1 Baso % (Auto) 0.3 Gran # 4.00 Lymph # (Auto) 1.0 L Bennett # (Auto) 0.6 Eos # (Auto) 0.2 Baso # (Auto) 0.02 APTT 42.1 H Sodium Potassium Chloride Carbon Dioxide Anion Gap BUN Creatinine Est GFR ( Amer) Est GFR (Non-Af Amer) POC Glucose (mg/dL) 85 Random Glucose Hemoglobin A1c Calcium Phosphorus Magnesium Total Bilirubin Direct Bilirubin AST ALT Alkaline Phosphatase C-React Prot High Sens Total Protein Albumin Globulin Albumin/Globulin Ratio 01/25/18 01/25/18 01/25/18 05:25 05:25 07:58 WBC RBC Hgb Hct MCV MCH MCHC RDW Plt Count MPV Gran % Lymph % (Auto) Bennett % (Auto) Eos % (Auto) Baso % (Auto) Gran # Lymph # (Auto) Bennett # (Auto) Eos # (Auto) Baso # (Auto) APTT 36.2 Sodium 139 Potassium 3.8 Chloride 99 Carbon Dioxide 27 Anion Gap 17 BUN 43 H Creatinine 6.7 H Est GFR ( Amer) 10 Est GFR (Non-Af Amer) 8 POC Glucose (mg/dL) 72 Random Glucose 77 Hemoglobin A1c Calcium 7.9 L Phosphorus 5.5 H Magnesium 1.7 Total Bilirubin 0.6 Direct Bilirubin 0.5 H AST 30 ALT 13 Alkaline Phosphatase 88 C-React Prot High Sens Total Protein 6.5 Albumin 3.4 Globulin 3.1 Albumin/Globulin Ratio 1.1 01/25/18 11:10 WBC RBC Hgb Hct MCV MCH MCHC RDW Plt Count MPV Gran % Lymph % (Auto) Bennett % (Auto) Eos % (Auto) Baso % (Auto) Gran # Lymph # (Auto) Bennett # (Auto) Eos # (Auto) Baso # (Auto) APTT Sodium Potassium Chloride Carbon Dioxide Anion Gap BUN Creatinine Est GFR ( Amer) Est GFR (Non-Af Amer) POC Glucose (mg/dL) 95 Random Glucose Hemoglobin A1c Calcium Phosphorus Magnesium Total Bilirubin Direct Bilirubin AST ALT Alkaline Phosphatase C-React Prot High Sens Total Protein Albumin Globulin Albumin/Globulin Ratio Critical Care Progress Note - Nutrition Nutrition: Nutrition Category Date Time Status Renal Diet [DIET] Diets 01/24/18 Dinner Ordered Assessment/Plan - Assessment and Plan (Free Text) Plan: Patient seen and examined on rounds with resident, agree with note with following additions/exceptions: Patient is 78yo male w/PMH HTN, CHF, ESRD on HD, recent admission for osteomyelitis presented with hypotension and left toe wound. Never required pressors. Currently afebrile, BP stable, comfortable in NAD, doing well, tolerating HD. No overt source of infection on CT C/A/P, possible left lower extremity infection on broad spectrum abx, ID following. No major complaints. Patient s/p angiogram 01/[address] Womack, Left posterior tibial arthrectomy, DP and PT easily dopplerable pulses left foot, on Heparin drip Hypotension, resolved ESRD on HD CHF HTN Recommend: - supp o2 as needed, duonebs PRN - follow up cultures, ID - cont with abx as per ID - hold BP meds - HD as per renal - Heparin drip as per IR - FS control - GI ppx - DVT ppx - Follow up podiatry - transfer to telemetry, stable
--- NOTE | 2018-01-25 10:51 | CP.PCM.PN ---
<Ry Faria - Last Filed: 01/25/18 10:48> Subjective - Date & Time of Evaluation Date of Evaluation: 01/25/18 Time of Evaluation: 09:48 - Subjective Subjective: Ry Faria PGY2 IM Progress Note for Dr. Whitman Patient was seen and examined at bedside in ICU. Overnight, the patient lost IV access, and pulled the reinserted Heplock. Due to this the patient did not receive heparin for approximately 3 hours overnight, and PTT was noted to be subtherapeutic. In AM, a nurse reinserted Heplock and patient was restarted on heparin drip. When seen, the patient is receiving dialysis. He is arousable but providing no history or ROS. Objective - Vital Signs/Intake and Output Vital Signs (last 24 hours): Temp Pulse Resp BP Pulse Ox 98.2 F 61 24 161/68 H 94 L 01/25/18 08:00 01/25/18 10:31 01/25/18 10:31 01/25/18 10:31 01/25/18 10:31 Intake and Output: 01/25/18 01/25/18 06:59 18:59 Intake Total 610 620 Output Total 1000 Balance -390 620 - Medications Medications: Current Medications Acetaminophen (Tylenol 325mg Tab) 650 mg PO Q6 PRN PRN Reason: TEMP>=99.5F Acetaminophen (Tylenol 650 Mg Supp) 650 mg RC Q6H PRN PRN Reason: TEMP>=99.5F Aspirin (Ecotrin) 81 mg PO DAILY [facility] Last Admin: 01/25/18 08:59 Dose: 81 mg Benzonatate (Tessalon Perles) 200 mg PO TID [facility] Last Admin: 01/25/18 08:59 Dose: 200 mg Clonidine HCl (Catapres) 0.1 mg PO BID [facility] Last Admin: 01/25/18 09:42 Dose: Not Given Dextrose (Dextrose 50% Inj) 25 ml IV STAT PRN; Protocol PRN Reason: Hypoglycemia Protocol Docusate Sodium (Colace) 100 mg PO TID [facility] Last Admin: 01/25/18 08:59 Dose: 100 mg Heparin Sodium (Porcine) (Heparin) 5,000 units SC Q8 [facility] PRN Reason: Protocol Last Admin: 01/24/18 05:00 Dose: Not Given Doxycycline Hyclate 100 mg/ (Sodium Chloride) 100 mls @ 100 mls/hr IVPB Q12 [facility] PRN Reason: Protocol Last Admin: 01/25/18 08:59 Dose: 100 mls/hr Dextrose (Dextrose 5% In Water 1000 Ml) 1,000 mls @ 0 mls/hr IV .Q0M PRN; Protocol; Per Protocol PRN Reason: Hypoglycemia Protocol Meropenem 500 mg/ Sodium (Chloride) 50 mls @ 100 mls/hr IVPB Q12 [facility] PRN Reason: Protocol Stop: 01/30/18 22:01 Last Admin: 01/25/18 08:59 Dose: 100 mls/hr Heparin Sodium/Sodium Chloride (Heparin 18613 Units/250ml 1/2 Normal Saline) 25 ,000 units in 250 mls @ 21.339 mls/hr IV .[id number] PRN; Protocol; 18 UNITS/KG/HR PRN Reason: ADJUST RATE PER PROTOCOL Last Titration: 01/25/18 07:30 Dose: 18 units/kg/hr, 21.339 mls/hr Insulin Human Regular (Humulin R Med) 0 units SC ACHS [facility]ERE PRN Reason: Protocol Last Admin: 01/25/18 07:30 Dose: Not Given Levalbuterol HCl (Xopenex) 0.63 mg IH [id number] [facility] Last Admin: 01/25/18 08:28 Dose: 0.63 mg Ondansetron HCl (Zofran Inj) 4 mg IVP Q4H PRN PRN Reason: Nausea/Vomiting Pantoprazole Sodium (Protonix Ec Tab) 40 mg PO 0600 [facility] Last Admin: 01/25/18 07:00 Dose: 40 mg - Labs Labs: 01/25/18 05:25 01/25/18 05:25 PT 13.3 SECONDS (9.4-12.5) H 01/23/18 11:00 INR 1.15 01/23/18 11:00 APTT 36.2 Seconds (25.1-36.5) 01/25/18 05:25 - Constitutional Appears: Well, Non-toxic, No Acute Distress, Chronically Ill - Head Exam Head Exam: NORMAL INSPECTION - Eye Exam Eye Exam: Normal appearance - ENT Exam ENT Exam: Mucous Membranes Dry - Neck Exam Neck Exam: Normal Inspection - Respiratory Exam Respiratory Exam: Decreased Breath Sounds, NORMAL BREATHING PATTERN. absent: Rales, Rhonchi, Wheezes, Respiratory Distress - Cardiovascular Exam Cardiovascular Exam: RRR, +S1, +S2 - GI/Abdominal Exam GI & Abdominal Exam: Soft. 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 Patient did not meet criteria for sepsis on admission. X-ray of left foot showed chronic fracture of base of fifth proximal phalanx with no evidence of osteomyelitis. Due to severe PVD, patient underwent left peroneal artery arthrectomy and balloon angioplasty, left anterior tibial artery angioplasty and severe left pedal occlusive disease was noted during aortogram with LE runoff by Dr. Womack on 01/24/18. CT head, chest, abdomen and pelvis were unremarkable for other causes of hypotension. Patient currently on heparin drip being managed by ICU team and IR recommendations. Plan: 1. Left fifth phalanx cellulitis, rule out osteomyelitis with underlying uncontrolled DM 2 and PVD - Continue heparin drip per IR recommendations, maintain therapeutic PTT - Continue aspirin - Continue doxycycline and meropenem empirically - Blood and wound cultures are pending - Podiatry consulted, recs appreciated - ID consulted, recs appreciated - Transfer out of ICU once cleared by IR and ICU team to telemetry 2. History of sinus arrest, S/P pacemaker - Cardiology consulted, recs appreciated 3. History of DM 2 - Consistent carbohydrate diet - Start ISS - Accucheck ACHS 4. History of ESRD on HD - Nephrology consulted for dialysis (MWF) - Monitor electrolytes and manage appropriately 5. History of COPD - Xopenex - Tessalon Perles 6. PPX - Protonix for GI ppx - Heparin/SCD's for DVT ppx Case was reviewed and discussed with attending, Dr. J Carlos Faria PGY2 <Oleg Whitman U - Last Filed: 01/26/18 13:45> Objective - Vital Signs/Intake and Output Vital Signs (last 24 hours): Temp Pulse Resp BP Pulse Ox 98 F 62 21 158/57 H 94 L 01/26/18 08:00 01/26/18 13:01 01/26/18 13:01 01/26/18 13:01 01/26/18 13:01 Intake and Output: 01/26/18 01/26/18 06:59 18:59 Intake Total 760 Balance 760 - Medications Medications: Current Medications Acetaminophen (Tylenol 325mg Tab) 650 mg PO Q6 PRN PRN Reason: TEMP>=99.5F Acetaminophen (Tylenol 650 Mg Supp) 650 mg RC Q6H PRN PRN Reason: TEMP>=99.5F Aspirin (Ecotrin) 81 mg PO DAILY [facility] Last Admin: 01/26/18 12:03 Dose: Not Given Benzonatate (Tessalon Perles) 200 mg PO TID [facility] Last Admin: 01/26/18 13:15 Dose: Not Given Clonidine HCl (Catapres) 0.1 mg PO BID [facility] Last Admin: 01/26/18 12:02 Dose: Not Given Dextrose (Dextrose 50% Inj) 25 ml IV STAT PRN; Protocol PRN Reason: Hypoglycemia Protocol Docusate Sodium (Colace) 100 mg PO TID [facility] Last Admin: 01/26/18 13:14 Dose: Not Given Heparin Sodium (Porcine) (Heparin) 5,000 units SC Q8 [facility]ERE PRN Reason: Protocol Last Admin: 01/24/18 05:00 Dose: Not Given Doxycycline Hyclate 100 mg/ (Sodium Chloride) 100 mls @ 100 mls/hr IVPB Q12 [facility] PRN Reason: Protocol Last Admin: 01/26/18 09:40 Dose: 100 mls/hr Dextrose (Dextrose 5% In Water 1000 Ml) 1,000 mls @ 0 mls/hr IV .Q0M PRN; Protocol; Per Protocol PRN Reason: Hypoglycemia Protocol Meropenem 500 mg/ Sodium (Chloride) 50 mls @ 100 mls/hr IVPB Q12 [facility]ERE PRN Reason: Protocol Stop: 01/30/18 22:01 Last Admin: 01/26/18 09:41 Dose: 100 mls/hr Heparin Sodium/Sodium Chloride (Heparin 76430 Units/250ml 1/2 Normal Saline) 25 ,000 units in 250 mls @ 21.339 mls/hr IV .[id number] PRN; Protocol; 18 UNITS/KG/HR PRN Reason: ADJUST RATE PER PROTOCOL Last Admin: 01/26/18 03:35 Dose: 15 units/kg/hr, 17.783 mls/hr Insulin Human Regular (Humulin R Med) 0 units SC ACHS [facility] PRN Reason: Protocol Last Admin: 01/26/18 12:03 Dose: Not Given Levalbuterol HCl (Xopenex) 0.63 mg IH [id number] [facility] Last Admin: 01/26/18 13:21 Dose: 0.63 mg Ondansetron HCl (Zofran Inj) 4 mg IVP Q4H PRN PRN Reason: Nausea/Vomiting Pantoprazole Sodium (Protonix Ec Tab) 40 mg PO 0600 [facility] Last Admin: 01/26/18 05:18 Dose: 40 mg - Labs Labs: 01/26/18 05:00 01/26/18 05:00 PT 13.3 SECONDS (9.4-12.5) H 01/23/18 11:00 INR 1.15 01/23/18 11:00 APTT 66.9 Seconds (25.1-36.5) H 01/26/18 08:00 Attending/Attestation - Attestation I have personally seen and examined this patient.: Yes I have fully participated in the care of the patient.: Yes I have reviewed all pertinent clinical information, including history, physical exam and plan: Yes Notes (Text): Please see/read my dictated notes.
[2018-01-25] MEDS: Heparin25000 units/250ml 1/2NS 25,000 UNITS/250 ML BAG IV PRN (12:13)
--- NOTE | 2018-01-25 14:47 | CP.PCM.PN ---
<Lico Matias - Last Filed: 01/25/18 14:35> Subjective - Date & Time of Evaluation Date of Evaluation: 01/25/18 Time of Evaluation: 14:35 - Subjective Subjective: Podiatry consult notes for attending Dr. Maher 78 Y/O male Patient seen and evaluated at bedside for an ulcer of the left 5th digit . Patient was sleeping in his bed at the visit time doing his dialysis session. Patient looks distressed and his chest has audible crepitations at the visit time. Patient states that he still has episodes of pain in his left foot. Patient denies any recent F/N/V/C. Patient denies any other pedal complaint at this time. Objective - Vital Signs/Intake and Output Vital Signs (last 24 hours): Temp Pulse Resp BP Pulse Ox 98.2 F 74 28 H 117/71 88 L 01/25/18 11:39 01/25/18 14:00 01/25/18 14:00 01/25/18 13:47 01/25/18 12:46 Intake and Output: 01/25/18 01/25/18 06:59 18:59 Intake Total 610 720 Output Total 1000 Balance -390 720 - Medications Medications: Current Medications Acetaminophen (Tylenol 325mg Tab) 650 mg PO Q6 PRN PRN Reason: TEMP>=99.5F Acetaminophen (Tylenol 650 Mg Supp) 650 mg RC Q6H PRN PRN Reason: TEMP>=99.5F Aspirin (Ecotrin) 81 mg PO DAILY [facility] Last Admin: 01/25/18 08:59 Dose: 81 mg Benzonatate (Tessalon Perles) 200 mg PO TID [facility] Last Admin: 01/25/18 14:28 Dose: 200 mg Clonidine HCl (Catapres) 0.1 mg PO BID [facility] Last Admin: 01/25/18 09:42 Dose: Not Given Dextrose (Dextrose 50% Inj) 25 ml IV STAT PRN; Protocol PRN Reason: Hypoglycemia Protocol Docusate Sodium (Colace) 100 mg PO TID [facility] Last Admin: 01/25/18 14:28 Dose: 100 mg Heparin Sodium (Porcine) (Heparin) 5,000 units SC Q8 JERE PRN Reason: Protocol Last Admin: 01/24/18 05:00 Dose: Not Given Doxycycline Hyclate 100 mg/ (Sodium Chloride) 100 mls @ 100 mls/hr IVPB Q12 JERE PRN Reason: Protocol Last Admin: 01/25/18 08:59 Dose: 100 mls/hr Dextrose (Dextrose 5% In Water 1000 Ml) 1,000 mls @ 0 mls/hr IV .Q0M PRN; Protocol; Per Protocol PRN Reason: Hypoglycemia Protocol Meropenem 500 mg/ Sodium (Chloride) 50 mls @ 100 mls/hr IVPB Q12 [facility]ERE PRN Reason: Protocol Stop: 01/30/18 22:01 Last Admin: 01/25/18 08:59 Dose: 100 mls/hr Heparin Sodium/Sodium Chloride (Heparin 56666 Units/250ml 1/2 Normal Saline) 25,000 units in 250 mls @ 21.339 mls/hr IV .[id number] PRN; Protocol; 18 UNITS/KG/HR PRN Reason: ADJUST RATE PER PROTOCOL Last Admin: 01/25/18 12:13 Dose: 18 units/kg/hr, 21.339 mls/hr Insulin Human Regular (Humulin R Med) 0 units SC ACHS JERE PRN Reason: Protocol Last Admin: 01/25/18 11:31 Dose: Not Given Levalbuterol HCl (Xopenex) 0.63 mg IH [id number] [facility] Last Admin: 01/25/18 13:22 Dose: Not Given Ondansetron HCl (Zofran Inj) 4 mg IVP Q4H PRN PRN Reason: Nausea/Vomiting Pantoprazole Sodium (Protonix Ec Tab) 40 mg PO 0600 [facility] Last Admin: 01/25/18 07:00 Dose: 40 mg - Labs Labs: 01/25/18 05:25 01/25/18 05:25 PT 13.3 SECONDS (9.4-12.5) H 01/23/18 11:00 INR 1.15 01/23/18 11:00 APTT 36.2 Seconds (25.1-36.5) 01/25/18 05:25 - Head Exam Head Exam: ATRAUMATIC, NORMOCEPHALIC - Extremities Exam Additional comments: Left LE focused Exam: Vasc: DP/PT pulses are not palpable, Cap refill time < 3 sec in all digits, skin temperature gradient: warm to cool from proximal to distal. L 5th digit became dark black in color. Dark discoloration noted in all the digits up to the level of the distal met. shafts. Neuro: Protective sensation diminished. Gross sensation intact. DERM: Ulceration on the dorsum of the 5th digit measuring approximately 1.5 cm x 3 cm with wound bed completely necrotic, covered by dry black eschar, the whole left 5th toe beccomes black in color, no active drainage, no malodor, no tunneling or tracking, no purulent drainage, No erythema noted at the dorsum of the left forefoot, no clinical signs of infection. An area of ecchymosis noted on the dorsum of the 1st, 2nd and 4th left digits which is covered partially by dry scab. color changes appears in all the digits (it become darker up to the level of the met. shafts) MSK: Pain on palpation of the digits particularly the 5th digit. Muscle power intact 5/5 in all groups. - Neurological Exam Neurological Exam: Awake, Oriented x3 - Psychiatric Exam Psychiatric exam: Normal Affect Assessment and Plan - Assessment and Plan (Free Text) Assessment: 78 Y/O M patient seen and evaluated at the bedside for gangrenous left 5th digit Plan: Patient seen and evaluated at the bed side with Dr. Maher Plan discussed in details with attending Dr. Maher Chart, Labs and vitals reviewed; Afebrile, WBCs 5.9 LE arterial duplex: BEATRIZ R 1.14. Bilateral sever tibial occlusive disease L > R B/L LE venous Duplex; No DVT. Left foot x-ray: Chronic fracture in the base of the 5th proximal phalanx. Distal phalanx erosions. Ulcer dressed using DSD Wound culture collected and sent to the lab. ID is on board. Vascular surgery is on board. MRI to be considered after patient stabilization. No plans for surgical intervention except after successful revascularization. Podiatry will continue to follow up the patient while in house. <Lizbeth Maher - Last Filed: 02/03/18 17:48> Objective - Vital Signs/Intake and Output Vital Signs (last 24 hours): Temp Pulse Resp BP Pulse Ox 98 F 66 20 128/56 L 94 L 02/03/18 14:24 02/03/18 14:24 02/03/18 14:24 02/03/18 14:24 02/03/18 14:24 Intake and Output: 02/03/18 02/03/18 06:59 18:59 Intake Total 300 240 Balance 300 240 - Medications Medications: Current Medications Acetaminophen (Tylenol 325mg Tab) 650 mg PO Q6 PRN PRN Reason: TEMP>=99.5F Last Admin: 01/29/18 21:21 Dose: 650 mg Acetaminophen (Tylenol 650 Mg Supp) 650 mg RC Q6H PRN PRN Reason: TEMP>=99.5F Amlodipine Besylate (Norvasc) 10 mg PO DAILY [facility] Last Admin: 02/03/18 10:31 Dose: 10 mg Aspirin (Aspirin) 325 mg PO DAILY [facility] Last Admin: 02/02/18 15:56 Dose: Not Given Atorvastatin Calcium (Lipitor) 40 mg PO HS [facility] Last Admin: 02/02/18 21:49 Dose: 40 mg Benzonatate (Tessalon Perles) 200 mg PO TID [facility] Last Admin: 02/03/18 15:29 Dose: 200 mg Calcium Acetate (Phoslo) 667 mg PO TID [facility] Last Admin: 02/03/18 15:29 Dose: 667 mg Carvedilol (Coreg) 25 mg PO BID [facility] Last Admin: 02/03/18 10:32 Dose: 25 mg Darbepoetin Preet (Aranesp) 40 mcg IVP ONCE ONE Stop: 02/04/18 06:01 Dextrose (Dextrose 50% Inj) 25 ml IV STAT PRN; Protocol PRN Reason: Hypoglycemia Protocol Docusate Sodium (Colace) 100 mg PO TID [facility] Last Admin: 02/03/18 15:29 Dose: 100 mg Donepezil HCl (Aricept) 10 mg PO [facility] Last Admin: 02/02/18 21:48 Dose: 10 mg Doxazosin Mesylate (Cardura) 2 mg PO BID [facility] Last Admin: 02/03/18 10:32 Dose: 2 mg Gabapentin (Neurontin) 100 mg PO HS [facility]; Protocol Last Admin: 02/02/18 21:48 Dose: 100 mg Hydralazine HCl (Apresoline) 100 mg PO BID [facility] Last Admin: 02/03/18 10:30 Dose: 100 mg Dextrose (Dextrose 5% In Water 1000 Ml) 1,000 mls @ 0 mls/hr IV .Q0M PRN; Protocol PRN Reason: Hypoglycemia Protocol Meropenem 250 mg/ Sodium (Chloride) 100 mls @ 100 mls/hr IVPB Q12H [facility]; Protocol Stop: 02/08/18 19:31 Last Admin: 02/03/18 10:34 Dose: 100 mls/hr Insulin Human Regular (Humulin R Med) 0 units SC ACHS [facility]; Protocol Last Admin: 02/03/18 17:21 Dose: Not Given Levalbuterol HCl (Xopenex) 0.63 mg IH [id number] [facility] Last Admin: 02/03/18 16:27 Dose: 0.63 mg Lidocaine (Lidoderm) 1 ea TD DAILY [facility] Last Admin: 02/03/18 10:34 Dose: 1 ea Losartan Potassium (Cozaar) 100 mg PO DAILY [facility] Last Admin: 02/03/18 10:31 Dose: 100 mg Memantine (Namenda) 5 mg PO BID [facility] Last Admin: 02/03/18 10:31 Dose: 5 mg [id number]-[id number] Ethyl Esters (Lovaza) 1 gm PO BID [facility] Last Admin: 02/03/18 10:31 Dose: 1 gm Ondansetron HCl (Zofran Inj) 4 mg IVP Q4H PRN PRN Reason: Nausea/Vomiting Pantoprazole Sodium (Protonix Ec Tab) 40 mg PO 0600 [facility] Last Admin: 02/03/18 05:48 Dose: 40 mg Tamsulosin HCl (Flomax) 0.4 mg PO DAILY [facility] Last Admin: 02/03/18 10:31 Dose: 0.4 mg Tramadol HCl (Ultram) 50 mg PO TID PRN PRN Reason: Pain, moderate (4-7) Last Admin: 02/03/18 10:31 Dose: 50 mg - Labs Labs: 02/02/18 10:00 02/02/18 10:00 PT 12.9 SECONDS (9.4-12.5) H 02/02/18 10:00 INR 1.12 02/02/18 10:00 APTT 37.0 Seconds (25.1-36.5) H 02/02/18 10:00 Attending/Attestation - Attestation I have personally seen and examined this patient.: Yes I have fully participated in the care of the patient.: Yes I have reviewed all pertinent clinical information, including history, physical exam and plan: Yes
--- NOTE | 2018-01-25 17:31 | CARD ---
APPROVED REPORT Date of service: 01/25/2018 EXAM: Two-dimensional and M-mode echocardiogram with Doppler and color Doppler. INDICATION HYPOTENSION 2D DIMENSIONS Left Atrium (2D)5.4 (1.6-4.0cm)IVSd1.5 (0.7-1.1cm) LVDd5.8 (3.9-5.9cm)PWd1.6 (0.7-1.1cm) LVDs4.1 (2.5-4.0cm)FS (%) 29.5 % LVEF (%)55.8 (>50%) M-Mode DIMENSIONS Aortic Root4.20 (2.2-3.7cm)Aortic Cusp Exc.2.20 (1.5-2.0cm) Aortic Valve AoV Peak Ektmxmfl890.0cm/Sonia Peak GR.15mmHg Mitral Valve MV E Ceccprfw096.0cm/sMV A Skzuoyzd543.0cm/sE/A ratio0.8 TDI Lateral E' Peak V7.21cm/sMedial E' Peak V6.73cm/sE/Lateral E'17.3 E/Medial E'18.6 Pulmonary Valve PV Peak Atxzwzyy30.9cm/sPV Peak Grad.3mmHg Tricuspid Valve TR Peak [id number]/sRAP [id number] Peak Gr.44mmHg [id number] LEFT VENTRICLE The left ventricle is normal size. There is mild concentric left ventricular hypertrophy. The left ventricular function is normal. The left ventricular ejection fraction is within the normal range. There is normal LV segmental wall motion. Transmitral Doppler flow pattern is Grade I-abnormal relaxation pattern. RIGHT VENTRICLE The right ventricle is normal size. There is normal right ventricular wall thickness. The right ventricular systolic function is normal. There is a pacemaker lead in the right ventricle. ATRIA The left atrium is moderately dilated. The right atrium is moderately dilated. AORTIC VALVE The aortic valve is mildly sclerotic. No aortic regurgitation is present. There is no aortic valvular stenosis. MITRAL VALVE Mitral annular calcification is moderate. Mitral regurgitation is mild. There is no mitral valve stenosis. TRICUSPID VALVE The tricuspid valve is normal in structure. There is mild tricuspid regurgitation. There is moderate pulmonary hypertension. PULMONIC VALVE The pulmonary valve is normal in structure. There is mild pulmonic valvular regurgitation. GREAT VESSELS The aortic root is mildly enlarged. The IVC is normal in size and collapses >50% with inspiration. PERICARDIAL EFFUSION There is a trace loculated anterior pericardial effusion. <Conclusion> The left ventricle is normal size. There is mild concentric left ventricular hypertrophy. The left ventricular function is normal. The left ventricular ejection fraction is within the normal range. There is normal LV segmental wall motion. Transmitral Doppler flow pattern is Grade I-abnormal relaxation pattern. Mitral regurgitation is mild. There is moderate pulmonary hypertension.
--- NOTE | 2018-01-25 20:26 | PN ---
Copied To: Yadira Fox MD Attending MD: Yadira Fox MD DATE: 01/25/2018 SUBJECTIVE: The patient is seen in the ICU, he is lying in bed. He is somewhat lethargic and slow to mentate. He denies any pain at present. He denies any shortness of breath. He denies any chest tightness. He is currently receiving an echocardiogram. He had dialysis earlier today. He also had an angiogram done yesterday. He had a left peroneal artery atherectomy and balloon angioplasty, and left anterior tibial angioplasty. He had a CT of the abdomen, chest, and pelvis showing extensive emphysema, otherwise no acute findings. Echocardiogram done this morning showed normal-sized left ventricle, mild concentric left ventricular hypertrophy, normal ejection fraction, mitral regurgitation, [id number] pulmonary hypertension. PHYSICAL EXAMINATION: GENERAL: Obese elderly male, lying in bed in the ICU. VITAL SIGNS: Blood pressure 135/55, heart rate 67, respiratory rate 20 to 22, and temperature 98.5. HEENT: Normocephalic, atraumatic, positive pallor. NECK: Supple, no JVD. LUNGS: Bilateral equal air entry, bilateral rhonchi, distant breath sounds. CARDIAC: S1 and S2, regular rate and rhythm, no murmur, no rub. ABDOMEN: Obese, distended, soft, nontender, bowel sounds present. EXTREMITIES: Ulcer on the lateral aspect of the left fifth toe, ulcer on the first toe. INTAKE AND OUTPUT: 1141/1000 LABORATORY DATA: WBC 5.9, hemoglobin 8.9, hematocrit 29.6, and platelets 187. Sodium 139, potassium 3.8, chloride 99, CO2 of 27. BUN 43, creatinine 6.7. Glucose 77. Calcium 7.9, phosphorus 5.5, magnesium 1.7. Albumin 3.4. Wound culture, gram-negative hailey and gram-positive cocci. CURRENT MEDICATIONS: Doxycycline 100 every 12 hours, aspirin, heparin, meropenem 500 every 12 hours, Protonix, Tylenol, Xopenex, and Zofran. ASSESSMENT: 1. Severe peripheral vascular disease, bilateral tibial occlusive disease, status post angiogram, status post left tibial artery angioplasty, left peroneal artery angioplasty. 2. Status post severe hypotension, sepsis. 3. Moderate pulmonary hypertension, preserved left ventricular function. 4. End-stage renal disease. 5. Anemia of chronic kidney disease. 6. Nonhealing ulcer/wound infection. 7. Hyperphosphatemia. 8. History of osteomyelitis. PLAN: 1. Stable dialysis earlier today. 2. Continue antibiotics as per ID recommendations. 3. Monitor blood pressure closely. 4. Monitor fingerstick. 5. Next dialysis will be on Sunday. 6. Case discussed with the patient at bedside, case discussed with dialysis staff, case discussed with ICU staff at length. More than 35 minutes spent in the care of this critically ill patient. Yadira Fox MD
--- NOTE | 2018-01-26 01:47 | PN ---
DATE: 01/25/2018 SUBJECTIVE: The patient is still in ICU, bed 1. The patient yesterday underwent interventional radiology procedure. The patient also overnight was attempted to have an IV access placed because of the poor IV access. The patient was uncooperative and pulled out the external jugular intravenous access. The patient later on had a right upper extremity IV access placed since the patient was started on heparin drip after the interventional radiology procedure. Last 24 hours, nursing notes were reviewed. The patient is in the process of getting hemodialysis done. PHYSICAL EXAMINATION: VITAL SIGNS: Vital signs in the last 24 hours, T-max 98.2. Telemetry shows paced rhythm. Heart rate 74, 66, 73, blood pressure in the last 24 hours has been 114, 148, 126, 178, 111, dropping to 95, 156, 161 systolic, 170 systolic, 153 systolic, diastolic averaging around 60s and 50s. The patient was seen by Nephrology. The patient was seen by Cardiology. The patient was seen by Podiatry. A DIAGNOSTIC DATA: The patient's diagnostic data from 01/25/2018, hemoglobin/hematocrit 8.9/29.6, platelet 187. Granulocytes 68% segs. PTT on heparin drip 68.2. Chemistry, LFT shows BUN of 43, creatinine 6.7. Fingerstick blood sugar 165, 127, 95. Hemoglobin A1c 6, calcium 7.9, phosphorus 5.1. LFTs are negative. PTH is 193. Left foot and left lower extremity wound cultures, gram-negative rods, gram-positive cocci. The patient's CAT scan of the chest and foot x-ray was reviewed and echocardiogram was reviewed. IMPRESSION: 1. Status post severe symptomatic hypotension. 2. Severe peripheral vascular disease with bilateral tibial occlusive disease, status post angiogram. status post left tibial artery angioplasty, left peroneal artery angioplasty. 3. End-stage renal disease, hemodialysis dependent. 4. Tachypnea. 5. Normocytic anemia with granulocytosis 6. Elevated erythrocyte sedimentation rate of 57. 7. Hypocalcemia, hyperphosphatemia. 8. Elevated C-reactive protein of greater than 15. 9. Secondary hyperparathyroidism. 10. Well-controlled insulin-requiring diabetes mellitus with hemoglobin A1c of 6. 11. Left foot and left lower extremity gram-negative hailey, gram-positive cocci, left foot, left lower extremity cellulitis, diabetic ulceration and possible osteomyelitis. 12. Status post abdominal aortogram, bilateral lower extremity runoff with non-selective view. 13. Status post left peroneal artery atherectomy and balloon angioplasty. 14. Left anterior tibial artery angioplasty. 15. Severe left lower extremity pedal occlusive disease. 16. Deconditioning. 17. Gait dysfunction. 18. Poor intravenous access. 19. Upper lobe extensive emphysema with right lower lobe consolidation with effusion. 20. Mitral valve calcification. 21. Left fifth proximal phalanx chronic fracture of the base. 22. Left foot third toe amputation. 23. Left ventricle ejection fraction of 55% with pulmonary hypertension and right ventricular systolic pressure of 54 mmHg. 24. Concentric left ventricular hypertrophy with grade 1 abnormal relaxation pattern. 25. Permanent pacemaker implant. 26. Moderately dilated right and left atrium. 27. Mild aortic valve sclerosis. 28. Moderate mitral annular calcification with mild mitral regurgitation. 29. Mild tricuspid regurgitation with moderate pulmonary hypertension with right ventricular systolic pressure of 54 mmHg. 30. Anemia of chronic disease. 31. Left fifth digit gangrene and diabetic ulceration and gangrene. 32. Chronic obstructive pulmonary disease. 33. Poor intravenous access. 34. Systemic inflammatory response syndrome. 35. Hypotension probably secondary to over hemodialysis. 36. Left fifth toe necrotic. 1. Severe symptomatic hypotension. 2. Left foot osteomyelitis, status post intravenous antibiotic treatment. 3. Tachypnea. 4. Hypoxemia. 5. Normocytic anemia. 6. Granulocytosis. 7. Elevated erythrocyte sedimentation rate of 57. 8. End-stage renal disease, hemodialysis dependent three times a week via left upper extremity arteriovenous fistula. 9. Hyperphosphatemia and secondary hyperparathyroidism. 10. Elevated C-reactive protein of greater than 15. 11. Questionable congestive heart failure with elevated BNP versus volume overload and fluid overload. 12. 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 13. Bilateral lower extremity peripheral arterial disease with bilateral tibial occlusive disease, left greater than the right. 14. Bilateral lower extremity venous stasis. 15. Questionable congestive heart failure with pulmonary vascular congestion and cardiomegaly. 16. Insulin-requiring diabetes mellitus. 17. Permanent pacemaker implant. 18. Left foot fifth toe diabetic ulceration versus osteomyelitis. 19. Left foot fifth digit gangrene and gangrenous ulcer. 20. Severe peripheral vascular disease. 21. Secondary hyperparathyroidism. 22. History of hypertension, chronic obstructive pulmonary disease. 23. History of questionable poor healing left foot diabetic ulceration and gangrenous diabetic ulceration and osteomyelitis. 24. Status post left foot third toe amputation. 25. Severe emphysema of the upper lobes and right lower lobe atelectasis, consolidation and small pleural effusion. 26. Mitral valve calcification. 27. Deconditioning. 28. Constipation. 1. History of left foot osteomyelitis, status post intravenous antibiotic treatment. 2. End-stage renal disease, hemodialysis dependent. 3. History of hypertension. 4. Persistent refractory hypotension, etiology undetermined. 5. Hypoxemia. 6. Normocytic anemia with granulocytosis. 7. Elevated BNP, etiology undetermined. 8. Elevated C-reactive protein. 9. Peripheral vascular disease of the lower extremity. 10. Bilateral lower extremity venous stasis. 11. Gait dysfunction. 12. Deconditioning. 13. Cardiomegaly with mild pulmonary vascular congestion. 14. History of dementia. 15. History of permanent pacemaker implant. 16. History of prostatic hypertrophy, history of hypertriglyceridemia, history of secondary hyperparathyroidism. 17. Insulin-requiring diabetes mellitus. 18. Sick sinus syndrome. 19. History of left foot toe amputation. 20. Diabetic foot ulcer. 21. Left upper extremity arteriovenous fistula. 22. Left hand finger amputation. 23. History of nicotine dependence. 24. Sepsis. 25. Pneumonia. 26. Pulmonary hypertension with moderate concentric left ventricular hypertrophy. 27. Moderate mitral annular calcification. 28. Moderate pulmonary hypertension with right ventricular systolic pressure of 53 mmHg. 29. History of respiratory failure. 30. Oropharyngeal candidiasis. 31. Macroglossia. 32. Hypovitaminosis D. 33. History of sepsis secondary to healthcare-associated pneumonia, epiglottitis, and oropharyngeal candidiasis. 34. Uncontrolled diabetes mellitus. 35. History of BiPAP-requiring respiratory failure. 36. Obesity. 37. Hyperprocalcitoninemia . 38. Sinusitis. 39. History of chronic obstructive pulmonary disease exacerbation. 40. 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 41. Pulmonary emphysema. PLAN: At this time, the patient is to be continued on serial labs. The patient has been ordered transfer out of the ICU since the patient's hemodynamics has improved. Consultation with Cardiology, Infectious Disease, Nephrology, Podiatry, Interventional Radiology. Current medications, clonidine 0.1 mg twice a day ordered by Dr. Yong Duran, Colace 100 three times a day, doxycycline 100 mg IV every 12 hours, Ecotrin 81 daily, heparin drip is ordered by Dr. Yong Womack, insulin sliding scale medium dose coverage, meropenem 500 IV every 12 hours, Protonix 40 daily, Tessalon 200 three times a day, Tylenol p.r.n., Xopenex nebulizer and Zofran 4 IV every 4 hours. The patient has been ordered physical therapy, occupational therapy all ordered. The patient's overall prognosis is guarded to poor secondary to multiple comorbidities and complicated medical condition. Dictated and electronically signed, not read. Oleg Whitman MD MTDDorys
[2018-01-26] MEDS: Levalbuterol 0.63 MG/3 ML Inhal Soln UD IH SCH ×3 (02:30→13:21)
[2018-01-26] MEDS: Heparin25000 units/250ml 1/2NS 25,000 UNITS/250 ML BAG IV PRN ×2 (03:35→17:01)
[2018-01-26] MEDS: Pantoprazole 40 mg EC Tab PO SCH (05:18)
[2018-01-26 06:13] LABS: BASO # 0.02 K/mm3 (0.0-2.0); BASO % 0.3 % (0.0-3.0); EOS # 0.2 (0.0-0.7); EOS % 3.1 % (1.5-5.0); GRAN # 3.58 (1.4-6.5); GRAN % 62.6 % (50.0-68.0); HEMOGLOBIN 9.2 g/dL (14.0-18.0); LYMPH # 1.3 (1.2-3.4); LYMPH % 22.5 % (22.0-35.0); MEAN CELL VOLUME 85.1 fl (80.0-105.0); MEAN CORPUSCULAR HEMOGLOBIN 25.9 pg (25.0-35.0); MEAN CORPUSCULAR HGB CONC 30.5 g/dl (31.0-37.0); MEAN PLATELET VOLUME 10.6 fl (7.0-11.0); MONO # 0.7 (0.1-0.6); MONO % 11.5 % (1.0-6.0); RBC 3.55 10^6/uL (3.5-6.1); RED CELL DISTRIBUTION WIDTH 17.2 % (11.5-14.5); WHITE BLOOD COUNT 5.7 10^3/ul (4.5-11.0)
[2018-01-26 06:37] LABS: ALB/GLOB RATIO 1.1 (1.1-1.8); ALBUMIN 3.5 g/dL (3.0-4.8); BILIRUBIN,DIRECT 0.6 mg/dL (0.0-0.4); CALCIUM 8.3 mg/dL (8.4-10.5)
--- NOTE | 2018-01-26 09:33 | PN ---
DATE: 01/26/2018 SUBJECTIVE: The patient is in bed, in no acute distress, nontoxic. No fevers. Seen earlier in [facility], bed 1. OBJECTIVE: VITAL SIGNS: On exam, the patient's temperature is 98, blood pressure is 160/80, respiratory rate of 22, heart rate of 66. HEENT: Examination is unremarkable. NECK: Supple. LUNGS: Have decreased breath sounds. HEART: Normal S1, S2. ABDOMEN: Soft, nontender. No rebound, no guarding. No mass. DATA: Laboratory examination reveals a white count of 5.7, hemoglobin of 9, platelets of 220. Coagulation is noted. Chemistries are reviewed. Creatinine is 5.6. Microbiology reveals Enterobacter cloacae and subspecies of cloacae with Staph aureus and wound culture, light growth of Enterobacter cloacae and moderate growth of staph aureus, Enterobacter will also be sensitive to ceftriaxone, Bactrim, ertapenem, Cipro, cefepime.. The Staph aureus is also sensitive to oxacillin. Review of orders reveals the patient to be on doxycycline IV and meropenem and intermittent vancomycin. The blood cultures are negative. ASSESSMENT AND PLAN: This is a 78-year-old male seen earlier today in the ICU with end-stage renal disease, on hemodialysis on Mondays, Wednesdays and Fridays also with diabetes mellitus, hypertension, pacemaker, severe peripheral vascular disease and amputation of the third toe of the left foot, diabetic foot ulcer, osteomyelitis of the left fifth toe, obesity with chronic obstructive lung disease, hyperlipidemia. Currently on meropenem and doxycycline with a sensitive Staph aureus and Enterobacter from the wound. The blood cultures are negative. The nasal MRSA screen is negative. We will follow with you. Long Lance MD
[2018-01-26] MEDS: Meropenem 500 MG in Sodium Chloride 0.9% 50 ML IVPB SCH ×2 (09:41→21:00)
[2018-01-26] MEDS: Insulin Reg-MEDIUM-Coverage SC SCH ×4 (09:49→22:00)
--- NOTE | 2018-01-26 12:48 | CARD ---
APPROVED REPORT Date of service: 01/26/2018 EKG Measurement Heart [id number] <Conclusion> Atrial sensed, ventricular paced rhythm
[2018-01-26 15:56] LABS: URINE APPEARANCE SLIGHT-CLOUDY (CLEAR); URINE BILIRUBIN SMALL (NEGATIVE); URINE BLOOD TRACE-INTACT (NEGATIVE); URINE COLOR DARK YELLOW (YELLOW); URINE GLUCOSE (UA) 100 mg/dL (NEGATIVE); URINE LEUKOCYTE ESTERASE MODERATE Leu/uL (NEGATIVE); URINE PROTEIN 100 mg/dL (<30 mg/dL)
[2018-01-26 16:15] LABS: URINE BACTERIA TRACE (NEG); URINE EPITHELIAL CELLS 0 - 2 /hpf (0-5); URINE WBC 25 - 30 /hpf (0-6)
--- NOTE | 2018-01-26 16:18 | CP.PCM.PN ---
<Ry Almendarez - Last Filed: 01/26/18 16:14> Subjective - Date & Time of Evaluation Date of Evaluation: 01/26/18 Time of Evaluation: 16:15 - Subjective Subjective: Podiatry progress note for Dr. Maher 78M seen at bedside for gangrenous changes to left fifth digit. Patient is AAO x 3 and eating lunch. Denies any new pedal complaints Objective - Vital Signs/Intake and Output Vital Signs (last 24 hours): Temp Pulse Resp BP Pulse Ox 98 F 70 21 158/57 H 94 L 01/26/18 08:00 01/26/18 15:31 01/26/18 13:01 01/26/18 15:31 01/26/18 13:01 Intake and Output: 01/26/18 01/26/18 06:59 18:59 Intake Total 760 Balance 760 - Medications Medications: Current Medications Acetaminophen (Tylenol 325mg Tab) 650 mg PO Q6 PRN PRN Reason: TEMP>=99.5F Acetaminophen (Tylenol 650 Mg Supp) 650 mg RC Q6H PRN PRN Reason: TEMP>=99.5F Aspirin (Ecotrin) 81 mg PO DAILY [facility] Last Admin: 01/26/18 15:33 Dose: 81 mg Benzonatate (Tessalon Perles) 200 mg PO TID [facility] Last Admin: 01/26/18 15:33 Dose: 200 mg Clonidine HCl (Catapres) 0.1 mg PO BID [facility] Last Admin: 01/26/18 15:31 Dose: 0.1 mg Dextrose (Dextrose 50% Inj) 25 ml IV STAT PRN; Protocol PRN Reason: Hypoglycemia Protocol Docusate Sodium (Colace) 100 mg PO TID [facility] Last Admin: 01/26/18 15:32 Dose: 100 mg Heparin Sodium (Porcine) (Heparin) 5,000 units SC Q8 [facility] PRN Reason: Protocol Last Admin: 01/24/18 05:00 Dose: Not Given Doxycycline Hyclate 100 mg/ (Sodium Chloride) 100 mls @ 100 mls/hr IVPB Q12 [facility] PRN Reason: Protocol Last Admin: 01/26/18 09:40 Dose: 100 mls/hr Dextrose (Dextrose 5% In Water 1000 Ml) 1,000 mls @ 0 mls/hr IV .Q0M PRN; Protocol; Per Protocol PRN Reason: Hypoglycemia Protocol Meropenem 500 mg/ Sodium (Chloride) 50 mls @ 100 mls/hr IVPB Q12 JERE PRN Reason: Protocol Stop: 01/30/18 22:01 Last Admin: 01/26/18 09:41 Dose: 100 mls/hr Heparin Sodium/Sodium Chloride (Heparin 99540 Units/250ml 1/2 Normal Saline) 25,000 units in 250 mls @ 21.339 mls/hr IV .[id number] PRN; Protocol; 18 UNITS/KG/HR PRN Reason: ADJUST RATE PER PROTOCOL Last Admin: 01/26/18 03:35 Dose: 15 units/kg/hr, 17.783 mls/hr Insulin Human Regular (Humulin R Med) 0 units SC ACHS JERE PRN Reason: Protocol Last Admin: 01/26/18 12:03 Dose: Not Given Levalbuterol HCl (Xopenex) 0.63 mg IH [id number] [facility] Last Admin: 01/26/18 13:21 Dose: 0.63 mg Ondansetron HCl (Zofran Inj) 4 mg IVP Q4H PRN PRN Reason: Nausea/Vomiting Pantoprazole Sodium (Protonix Ec Tab) 40 mg PO 0600 [facility] Last Admin: 01/26/18 05:18 Dose: 40 mg - Labs Labs: 01/26/18 05:00 01/26/18 05:00 PT 13.3 SECONDS (9.4-12.5) H 01/23/18 11:00 INR 1.15 01/23/18 11:00 APTT 66.9 Seconds (25.1-36.5) H 01/26/18 08:00 - Constitutional Appears: Well, Non-toxic, No Acute Distress - Extremities Exam Additional comments: Left LE focused Exam: Vasc: DP/PT pulses are not palpable, Cap refill time < 3 sec in all digits, skin temperature gradient: warm to cool from proximal to distal. L 5th digit became dark black in color. Dark discoloration noted in all the digits up to the level of the distal met. shafts. Neuro: Protective sensation diminished. Gross sensation intact. DERM: Ulceration on the dorsum of the 5th digit measuring approximately 1.5 cm x 3 cm with wound bed completely necrotic, covered by dry black eschar, the whole left 5th toe beccomes black in color, no active drainage, no malodor, no tunn eling or tracking, no purulent drainage, No erythema noted at the dorsum of the left forefoot, no clinical signs of infection. An area of ecchymosis noted on the dorsum of the 1st, 2nd and 4th left digits which is covered partially by dry scab. color changes appears in all the digits (it become darker up to the level of the met. shafts) MSK: Pain on palpation of the digits particularly the 5th digit. Muscle power intact 5/5 in all groups. - Neurological Exam Neurological Exam: Alert, Awake, Oriented x3 - Psychiatric Exam Psychiatric exam: Normal Affect, Normal Mood Assessment and Plan - Assessment and Plan (Free Text) Assessment: 78M seen at bedside for gangrenous changes to left fifth digit Plan: Patient seen and evaluated Plan discussed with Dr. Maher Afebrile, WBCs 5.7 WOund cx: Enterobacter Cloacae, Staph Aureus Continue abx per ID LE arterial duplex: BEATRIZ R 1.14. Bilateral sever tibial occlusive disease L > R B/L LE venous Duplex; No DVT. Left foot x-ray: Chronic fracture in the base of the 5th proximal phalanx. Distal phalanx erosions. Ulceration left open to air Vascular surgery is on board. MRI to be considered after patient stabilization. No plans for surgical intervention except after successful revascularization. Podiatry will continue to follow up the patient while in house. <Lizbeth Maher - Last Filed: 02/03/18 17:04> Objective - Vital Signs/Intake and Output Vital Signs (last 24 hours): Temp Pulse Resp BP Pulse Ox 98 F 66 20 128/56 L 94 L 02/03/18 14:24 02/03/18 14:24 02/03/18 14:24 02/03/18 14:24 02/03/18 14:24 Intake and Output: 02/03/18 02/03/18 06:59 18:59 Intake Total 300 240 Balance 300 240 - Medications Medications: Current Medications Acetaminophen (Tylenol 325mg Tab) 650 mg PO Q6 PRN PRN Reason: TEMP>=99.5F Last Admin: 01/29/18 21:21 Dose: 650 mg Acetaminophen (Tylenol 650 Mg Supp) 650 mg RC Q6H PRN PRN Reason: TEMP>=99.5F Amlodipine Besylate (Norvasc) 10 mg PO DAILY [facility] Last Admin: 02/03/18 10:31 Dose: 10 mg Aspirin (Aspirin) 325 mg PO DAILY [facility] Last Admin: 02/02/18 15:56 Dose: Not Given Atorvastatin Calcium (Lipitor) 40 mg PO HS [facility] Last Admin: 02/02/18 21:49 Dose: 40 mg Benzonatate (Tessalon Perles) 200 mg PO TID [facility] Last Admin: 02/03/18 15:29 Dose: 200 mg Calcium Acetate (Phoslo) 667 mg PO TID [facility] Last Admin: 02/03/18 15:29 Dose: 667 mg Carvedilol (Coreg) 25 mg PO BID [facility] Last Admin: 02/03/18 10:32 Dose: 25 mg Darbepoetin Preet (Aranesp) 40 mcg IVP ONCE ONE Stop: 02/04/18 06:01 Dextrose (Dextrose 50% Inj) 25 ml IV STAT PRN; Protocol PRN Reason: Hypoglycemia Protocol Docusate Sodium (Colace) 100 mg PO TID [facility] Last Admin: 02/03/18 15:29 Dose: 100 mg Donepezil HCl (Aricept) 10 mg PO [facility] Last Admin: 02/02/18 21:48 Dose: 10 mg Doxazosin Mesylate (Cardura) 2 mg PO BID [facility] Last Admin: 02/03/18 10:32 Dose: 2 mg Gabapentin (Neurontin) 100 mg PO HS [facility]; Protocol Last Admin: 02/02/18 21:48 Dose: 100 mg Hydralazine HCl (Apresoline) 100 mg PO BID [facility] Last Admin: 02/03/18 10:30 Dose: 100 mg Dextrose (Dextrose 5% In Water 1000 Ml) 1,000 mls @ 0 mls/hr IV .Q0M PRN; Protocol PRN Reason: Hypoglycemia Protocol Meropenem 250 mg/ Sodium (Chloride) 100 mls @ 100 mls/hr IVPB Q12H [facility]; Protocol Stop: 02/08/18 19:31 Last Admin: 02/03/18 10:34 Dose: 100 mls/hr Insulin Human Regular (Humulin R Med) 0 units SC ACHS [facility]; Protocol Last Admin: 02/03/18 10:32 Dose: 1 unit Levalbuterol HCl (Xopenex) 0.63 mg IH [id number] [facility] Last Admin: 02/03/18 16:27 Dose: 0.63 mg Lidocaine (Lidoderm) 1 ea TD DAILY [facility] Last Admin: 02/03/18 10:34 Dose: 1 ea Losartan Potassium (Cozaar) 100 mg PO DAILY [facility] Last Admin: 02/03/18 10:31 Dose: 100 mg Memantine (Namenda) 5 mg PO BID [facility] Last Admin: 02/03/18 10:31 Dose: 5 mg [id number] Ethyl Esters (Lovaza) 1 gm PO BID [facility] Last Admin: 02/03/18 10:31 Dose: 1 gm Ondansetron HCl (Zofran Inj) 4 mg IVP Q4H PRN PRN Reason: Nausea/Vomiting Pantoprazole Sodium (Protonix Ec Tab) 40 mg PO 0600 [facility] Last Admin: 02/03/18 05:48 Dose: 40 mg Tamsulosin HCl (Flomax) 0.4 mg PO DAILY [facility] Last Admin: 02/03/18 10:31 Dose: 0.4 mg Tramadol HCl (Ultram) 50 mg PO TID PRN PRN Reason: Pain, moderate (4-7) Last Admin: 02/03/18 10:31 Dose: 50 mg - Labs Labs: 02/02/18 10:00 02/02/18 10:00 PT 12.9 SECONDS (9.4-12.5) H 02/02/18 10:00 INR 1.12 02/02/18 10:00 APTT 37.0 Seconds (25.1-36.5) H 02/02/18 10:00 Attending/Attestation - Attestation I have personally seen and examined this patient.: Yes I have fully participated in the care of the patient.: Yes I have reviewed all pertinent clinical information, including history, physical exam and plan: Yes
--- NOTE | 2018-01-26 22:04 | PN ---
DATE: 01/26/2018 SUBJECTIVE: The patient is seen in ICU, bed 1. The patient is lying in the bed. The patient is alert, awake, responsive. Denies chest pain or shortness of breath. The patient was found to be episodically confused. PHYSICAL EXAMINATION: VITAL SIGNS: T-max is 98.2. Telemetry shows heart rate 60s, 70s. Ventricular paced rhythm, intermittent sinus rhythm. Blood pressure is 158/57, 141/51, 150/58, 133/63, 160/84. Respirations 21 to 28, O2 sat is 93% to 98%. HEAD: Normocephalic, atraumatic. HEENT: Shows pinkish pale conjunctivae. Anicteric sclerae. No oropharyngeal lesion. NECK: No neck rigidity. CHEST: Kyphosis. Positive pacemaker upper chest noted. Positive left upper extremity AV fistula. Positive right upper extremity IV access. CARDIOVASCULAR: S1, S2. Positive systolic murmur, left sternal border, right second intercostal space. ABDOMEN: Soft, slightly protuberant. GENITALIA: Male. RECTAL: Deferred. EXTREMITIES: Shows chronic positive skin changes of the lower extremity. Positive foot ulceration of the left foot dressing. MUSCULOSKELETAL: Shows a body mass index of 41. DIAGNOSTICS: 01/26/2018, WBC 5.7, hemoglobin and hematocrit 9.2 and 30.2, platelet 220. PTT is 67. The patient is still on heparin drip. Sodium 139, potassium 3.6, BUN 32, creatinine 5.6, calcium 8.3, phosphorus 4.7. LFTs are normal. C-reactive protein is greater than 15. Left foot cultures are growing Enterobacter cloacae and Staphylococcus aureus. EKG done today shows ventricular paced rhythm. Heart rate was noted. IMPRESSION: 1. Systemic inflammatory response syndrome. 2. Left foot toes osteomyelitis secondary to Enterobacter cloacae and Staphylococcus aureus, left foot toe diabetic ulceration and osteomyelitis. 3. Status post hypotension. 4. Hypertension. 5. Elevated erythrocyte sedimentation rate of 57. 6. Anemia of chronic disease. 7. Hypocalcemia. 9. Insulin-requiring diabetes mellitus with hemoglobin A1c of 6. 10. Hyperphosphatemia. 11. Elevated C-reactive protein. 12. Gait dysfunction. 13. Deconditioning. 14. End-stage renal disease, hemodialysis dependent via the left upper extremity AV fistula. 15. Proteinuria, glycosuria, microscopic hematuria, pyuria, bacteriuria. 1. Status post severe symptomatic hypotension. 2. Severe peripheral vascular disease with bilateral tibial occlusive disease, status post angiogram. status post left tibial artery angioplasty, left peroneal artery angioplasty. 3. End-stage renal disease, hemodialysis dependent. 4. Tachypnea. 5. Normocytic anemia with granulocytosis 6. Elevated erythrocyte sedimentation rate of 57. 7. Hypocalcemia, hyperphosphatemia. 8. Elevated C-reactive protein of greater than 15. 9. Secondary hyperparathyroidism. 10. Well-controlled insulin-requiring diabetes mellitus with hemoglobin A1c of 6. 11. Left foot and left lower extremity gram-negative hailey, gram-positive cocci, left foot, left lower extremity cellulitis, diabetic ulceration and possible osteomyelitis. 12. Status post abdominal aortogram, bilateral lower extremity runoff with non-selective view. 13. Status post left peroneal artery atherectomy and balloon angioplasty. 14. Left anterior tibial artery angioplasty. 15. Severe left lower extremity pedal occlusive disease. 16. Deconditioning. 17. Gait dysfunction. 18. Poor intravenous access. 19. Upper lobe extensive emphysema with right lower lobe consolidation with effusion. 20. Mitral valve calcification. 21. Left fifth proximal phalanx chronic fracture of the base. 22. Left foot third toe amputation. 23. Left ventricle ejection fraction of 55% with pulmonary hypertension and right ventricular systolic pressure of 54 mmHg. 24. Concentric left ventricular hypertrophy with grade 1 abnormal relaxation pattern. 25. Permanent pacemaker implant. 26. Moderately dilated right and left atrium. 27. Mild aortic valve sclerosis. 28. Moderate mitral annular calcification with mild mitral regurgitation. 29. Mild tricuspid regurgitation with moderate pulmonary hypertension with right ventricular systolic pressure of 54 mmHg. 30. Anemia of chronic disease. 31. Left fifth digit gangrene and diabetic ulceration and gangrene. 32. Chronic obstructive pulmonary disease. 33. Poor intravenous access. 34. Systemic inflammatory response syndrome. 35. Hypotension probably secondary to over hemodialysis. 36. Left fifth toe necrotic. 1. Severe symptomatic hypotension. 2. Left foot osteomyelitis, status post intravenous antibiotic treatment. 3. Tachypnea. 4. Hypoxemia. 5. Normocytic anemia. 6. Granulocytosis. 7. Elevated erythrocyte sedimentation rate of 57. 8. End-stage renal disease, hemodialysis dependent three times a week via left upper extremity arteriovenous fistula. 9. Hyperphosphatemia and secondary hyperparathyroidism. 10. Elevated C-reactive protein of greater than 15. 11. Questionable congestive heart failure with elevated BNP versus volume overload and fluid overload. 12. 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 13. Bilateral lower extremity peripheral arterial disease with bilateral tibial occlusive disease, left greater than the right. 14. Bilateral lower extremity venous stasis. 15. Questionable congestive heart failure with pulmonary vascular congestion and cardiomegaly. 16. Insulin-requiring diabetes mellitus. 17. Permanent pacemaker implant. 18. Left foot fifth toe diabetic ulceration versus osteomyelitis. 19. Left foot fifth digit gangrene and gangrenous ulcer. 20. Severe peripheral vascular disease. 21. Secondary hyperparathyroidism. 22. History of hypertension, chronic obstructive pulmonary disease. 23. History of questionable poor healing left foot diabetic ulceration and gangrenous diabetic ulceration and osteomyelitis. 24. Status post left foot third toe amputation. 25. Severe emphysema of the upper lobes and right lower lobe atelectasis, consolidation and small pleural effusion. 26. Mitral valve calcification. 27. Deconditioning. 28. Constipation. 1. History of left foot osteomyelitis, status post intravenous antibiotic treatment. 2. End-stage renal disease, hemodialysis dependent. 3. History of hypertension. 4. Persistent refractory hypotension, etiology undetermined. 5. Hypoxemia. 6. Normocytic anemia with granulocytosis. 7. Elevated BNP, etiology undetermined. 8. Elevated C-reactive protein. 9. Peripheral vascular disease of the lower extremity. 10. Bilateral lower extremity venous stasis. 11. Gait dysfunction. 12. Deconditioning. 13. Cardiomegaly with mild pulmonary vascular congestion. 14. History of dementia. 15. History of permanent pacemaker implant. 16. History of prostatic hypertrophy, history of hypertriglyceridemia, history of secondary hyperparathyroidism. 17. Insulin-requiring diabetes mellitus. 18. Sick sinus syndrome. 19. History of left foot toe amputation. 20. Diabetic foot ulcer. 21. Left upper extremity arteriovenous fistula. 22. Left hand finger amputation. 23. History of nicotine dependence. 24. Sepsis. 25. Pneumonia. 26. Pulmonary hypertension with moderate concentric left ventricular hypertrophy. 27. Moderate mitral annular calcification. 28. Moderate pulmonary hypertension with right ventricular systolic pressure of 53 mmHg. 29. History of respiratory failure. 30. Oropharyngeal candidiasis. 31. Macroglossia. 32. Hypovitaminosis D. 33. History of sepsis secondary to healthcare-associated pneumonia, epiglottitis, and oropharyngeal candidiasis. 34. Uncontrolled diabetes mellitus. 35. History of BiPAP-requiring respiratory failure. 36. Obesity. 37. Hyperprocalcitoninemia . 38. Sinusitis. 39. History of chronic obstructive pulmonary disease exacerbation. 40. 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 41. Pulmonary emphysema. PLAN: At this time, the patient has been ordered transfer out of the ICU. The patient has been ordered repeat labs. Current consultation Cardiology, Infectious Disease, Nephrology, Podiatry. CURRENT MEDICATIONS: The patient is started on clonidine 0.1 mg twice a day by Cardiology, Colace 100 three times a day, doxycycline 100 mg IV every 12, Ecotrin 81 mg daily, heparin drip as per Cardiology, regular medium-dose sliding scale coverage, meropenem 500 IV every 12, Protonix 40 daily, Tessalon 200 three times a day, Tylenol p.r.n., Xopenex nebulizer 0.63 mg every 6 hours, Zofran 4 mg IV every 4. Chest PT, out of bed, physical therapy, occupational therapy noted. At present, the patient's continuation of the IV heparin drip and continuation of the IV antibiotic will be at the discretion of the Infectious Disease and Cardiology. We will await Infectious Disease's further recommendations regarding the duration of the IV antibiotics. We will defer the decision above to the concerned subspecialty. Dictated and electronically signed, not read. Oleg Whitman MD MTDDorys
[2018-01-27] MEDS: Levalbuterol 0.63 MG/3 ML Inhal Soln UD IH SCH ×6 (01:30→20:34)
[2018-01-27] MEDS: Pantoprazole 40 mg EC Tab PO SCH (05:31)
[2018-01-27 06:33] LABS: BASO # 0.01 K/mm3 (0.0-2.0); BASO % 0.2 % (0.0-3.0); EOS # 0.2 (0.0-0.7); EOS % 3.1 % (1.5-5.0); GRAN # 3.69 (1.4-6.5); HEMOGLOBIN 8.9 g/dL (14.0-18.0); LYMPH % 18.1 % (22.0-35.0); MEAN CELL VOLUME 85.1 fl (80.0-105.0); MEAN CORPUSCULAR HGB CONC 30.6 g/dl (31.0-37.0); MEAN PLATELET VOLUME 10.6 fl (7.0-11.0); MONO # 0.6 (0.1-0.6); MONO % 11.6 % (1.0-6.0); RBC 3.42 10^6/uL (3.5-6.1); RED CELL DISTRIBUTION WIDTH 17.4 % (11.5-14.5); WHITE BLOOD COUNT 5.5 10^3/ul (4.5-11.0)
[2018-01-27 07:18] LABS: ALBUMIN 3.2 g/dL (3.0-4.8); BILIRUBIN,DIRECT 0.4 mg/dL (0.0-0.4); CALCIUM 8.1 mg/dL (8.4-10.5)
[2018-01-27] MEDS: Heparin25000 units/250ml 1/2NS 25,000 UNITS/250 ML BAG IV PRN ×2 (07:56→21:12)
[2018-01-27] MEDS: Insulin Reg-MEDIUM-Coverage SC SCH ×3 (08:54→16:05)
[2018-01-27] MEDS: Meropenem 500 MG in Sodium Chloride 0.9% 50 ML IVPB SCH ×2 (10:44→21:13)
--- NOTE | 2018-01-27 11:29 | PN ---
DATE: 01/27/2018 SUBJECTIVE: The patient seen in the ICU 128, bed 1. The patient has no fevers and no chills. Had an uneventful night. OBJECTIVE: VITAL SIGNS: On exam, temperature of 98, blood pressure is 165/70, respiratory rate 24, heart rate of 66. HEENT: Examination is unremarkable. NECK: Supple. LUNGS: Have decreased breath sounds. HEART: Normal S1, S2. ABDOMEN: Soft, nontender. DATA: Laboratory examination reveals a white count of 5.5, hemoglobin of 8 and the platelets of 207. Chemistries reveals BUN of 44, creatinine of 7.4. Urinalysis is noted and the patient's procalcitonin is 0.30. Microbiology reveals the foot culture has Enterobacter cloacae and a sensitive Staph aureus. The Enterobacter cloacae is also sensitive to ceftriaxone as Staph aureus is oxacillin sensitive, sensitive to Cipro and Bactrim. The CARLIE of vancomycin is 1. The patient had an EKG which is noted. ASSESSMENT AND PLAN: This is an 78-year-old male, was seen in 128, bed 1 with end-stage renal disease, on hemodialysis on Sunday, Sunday and Fridays. Also, the patient has diabetes mellitus, hypertension, pacemaker, severe peripheral vascular disease and amputation of third toe of the left foot, diabetic foot ulcer, osteomyelitis of left fifth toe, obesity, chronic obstructive lung disease, hyperlipidemia, on meropenem and doxycycline. The blood cultures are reported to be negative. We will discontinue the doxycycline IV. Review of pathology and the pathology in the OR cultures are pending. We will follow closely with you. We will change the doxy to p.o. and continue the meropenem, pending OR cultures and pathology. Long Lance MD
--- NOTE | 2018-01-27 11:40 | CP.PCM.PN ---
<Ry Almendarez - Last Filed: 01/27/18 11:37> Subjective - Date & Time of Evaluation Date of Evaluation: 01/27/18 Time of Evaluation: 11:38 - Subjective Subjective: Podiatry progress note for Dr. Maher 78M seen at bedside for gangrenous changes to left fifth digit. Patient is AAO x 3 resting comfortably in bed at time of visit. Denies any new pedal complaints Objective - Vital Signs/Intake and Output Vital Signs (last 24 hours): Temp Pulse Resp BP Pulse Ox 98.1 F 65 24 165/65 H 88 L 01/27/18 08:00 01/27/18 10:41 01/27/18 10:00 01/27/18 10:41 01/27/18 11:04 Intake and Output: 01/27/18 01/27/18 06:59 18:59 Intake Total 362 250 Balance 362 250 - Medications Medications: Current Medications Acetaminophen (Tylenol 325mg Tab) 650 mg PO Q6 PRN PRN Reason: TEMP>=99.5F Acetaminophen (Tylenol 650 Mg Supp) 650 mg RC Q6H PRN PRN Reason: TEMP>=99.5F Aspirin (Ecotrin) 81 mg PO DAILY [facility] Last Admin: 01/26/18 15:33 Dose: 81 mg Benzonatate (Tessalon Perles) 200 mg PO TID [facility] Last Admin: 01/27/18 10:43 Dose: 200 mg Clonidine HCl (Catapres) 0.1 mg PO BID [facility] Last Admin: 01/27/18 10:41 Dose: 0.1 mg Dextrose (Dextrose 50% Inj) 25 ml IV STAT PRN; Protocol PRN Reason: Hypoglycemia Protocol Docusate Sodium (Colace) 100 mg PO TID [facility] Last Admin: 01/27/18 10:42 Dose: 100 mg Dextrose (Dextrose 5% In Water 1000 Ml) 1,000 mls @ 0 mls/hr IV .Q0M PRN; Protocol; Per Protocol PRN Reason: Hypoglycemia Protocol Meropenem 500 mg/ Sodium (Chloride) 50 mls @ 100 mls/hr IVPB Q12 [facility] PRN Reason: Protocol Stop: 01/30/18 22:01 Last Admin: 01/27/18 10:44 Dose: 100 mls/hr Heparin Sodium/Sodium Chloride (Heparin 63080 Units/250ml 1/2 Normal Saline) 25,000 units in 250 mls @ 21.339 mls/hr IV .[id number] PRN; Protocol; 18 UNITS/KG/HR PRN Reason: ADJUST RATE PER PROTOCOL Last Admin: 01/27/18 07:56 Dose: 15 units/kg/hr, 17.783 mls/hr Insulin Human Regular (Humulin R Med) 0 units SC ACHS [facility]ERE PRN Reason: Protocol Last Admin: 01/27/18 08:54 Dose: Not Given Levalbuterol HCl (Xopenex) 0.63 mg IH [id number] [facility] Last Admin: 01/27/18 07:56 Dose: 0.63 mg Ondansetron HCl (Zofran Inj) 4 mg IVP Q4H PRN PRN Reason: Nausea/Vomiting Pantoprazole Sodium (Protonix Ec Tab) 40 mg PO 0600 [facility] Last Admin: 01/27/18 05:31 Dose: 40 mg - Labs Labs: 01/27/18 05:00 01/27/18 05:00 PT 13.3 SECONDS (9.4-12.5) H 01/23/18 11:00 INR 1.15 01/23/18 11:00 APTT 60.7 Seconds (25.1-36.5) H 01/27/18 05:00 - Constitutional Appears: Well, Non-toxic, No Acute Distress - Extremities Exam Additional comments: Left LE focused Exam: Vasc: DP/PT pulses are not palpable, Cap refill time < 3 sec in all digits, skin temperature gradient: warm to cool from proximal to distal. L 5th digit became dark black in color. Dark discoloration noted in all the digits up to the level of the distal met. shafts. Neuro: Protective sensation diminished. Gross sensation intact. DERM: Ulceration on the dorsum of the 5th digit measuring approximately 1.5 cm x 3 cm with wound bed completely necrotic, covered by dry black eschar, the whole left 5th toe beccomes black in color, no active drainage, no malodor, no tunneling or tracking, no purulent drainage, No erythema noted at the dorsum of the left forefoot, no clinical signs of infection. An area of ecchymosis noted on the dorsum of the 1st, 2nd and 4th left digits which is covered partially by dry scab. color changes appears in all the digits (it become darker up to the level of the met. shafts) MSK: Pain on palpation of the digits particularly the 5th digit. Muscle power intact 5/5 in all groups. - Neurological Exam Neurological Exam: Alert, Awake, Oriented x3 - Psychiatric Exam Psychiatric exam: Normal Affect, Normal Mood Assessment and Plan - Assessment and Plan (Free Text) Assessment: 78M seen at bedside for gangrenous changes to left fifth digit Plan: Patient seen and evaluated Plan discussed with Dr. Maher Afebrile, absent leukocytosis WOund cx: Enterobacter Cloacae, Staph Aureus Continue abx per ID LE arterial duplex: BEATRIZ R 1.14. Bilateral sever tibial occlusive disease L > R B/L LE venous Duplex; No DVT. Left foot x-ray: Chronic fracture in the base of the 5th proximal phalanx. Distal phalanx erosions. Ulceration left open to air MRI to be considered after patient is more stable No plans for surgical intervention except after successful revascularization. Podiatry will continue to follow up the patient while in house. <Lizbeth Maher - Last Filed: 02/03/18 17:01> Objective - Vital Signs/Intake and Output Vital Signs (last 24 hours): Temp Pulse Resp BP Pulse Ox 98 F 66 20 128/56 L 94 L 02/03/18 14:24 02/03/18 14:24 02/03/18 14:24 02/03/18 14:24 02/03/18 14:24 Intake and Output: 02/03/18 02/03/18 06:59 18:59 Intake Total 300 240 Balance 300 240 - Medications Medications: Current Medications Acetaminophen (Tylenol 325mg Tab) 650 mg PO Q6 PRN PRN Reason: TEMP>=99.5F Last Admin: 01/29/18 21:21 Dose: 650 mg Acetaminophen (Tylenol 650 Mg Supp) 650 mg RC Q6H PRN PRN Reason: TEMP>=99.5F Amlodipine Besylate (Norvasc) 10 mg PO DAILY [facility] Last Admin: 02/03/18 10:31 Dose: 10 mg Aspirin (Aspirin) 325 mg PO DAILY [facility] Last Admin: 02/02/18 15:56 Dose: Not Given Atorvastatin Calcium (Lipitor) 40 mg PO HS [facility] Last Admin: 02/02/18 21:49 Dose: 40 mg Benzonatate (Tessalon Perles) 200 mg PO TID [facility] Last Admin: 02/03/18 15:29 Dose: 200 mg Calcium Acetate (Phoslo) 667 mg PO TID [facility] Last Admin: 02/03/18 15:29 Dose: 667 mg Carvedilol (Coreg) 25 mg PO BID [facility] Last Admin: 02/03/18 10:32 Dose: 25 mg Darbepoetin Preet (Aranesp) 40 mcg IVP ONCE ONE Stop: 02/04/18 06:01 Dextrose (Dextrose 50% Inj) 25 ml IV STAT PRN; Protocol PRN Reason: Hypoglycemia Protocol Docusate Sodium (Colace) 100 mg PO TID [facility] Last Admin: 02/03/18 15:29 Dose: 100 mg Donepezil HCl (Aricept) 10 mg PO HS [facility] Last Admin: 02/02/18 21:48 Dose: 10 mg Doxazosin Mesylate (Cardura) 2 mg PO BID [facility] Last Admin: 02/03/18 10:32 Dose: 2 mg Gabapentin (Neurontin) 100 mg PO HS [facility]ERE; Protocol Last Admin: 02/02/18 21:48 Dose: 100 mg Hydralazine HCl (Apresoline) 100 mg PO BID [facility] Last Admin: 02/03/18 10:30 Dose: 100 mg Dextrose (Dextrose 5% In Water 1000 Ml) 1,000 mls @ 0 mls/hr IV .Q0M PRN; P rotocol PRN Reason: Hypoglycemia Protocol Meropenem 250 mg/ Sodium (Chloride) 100 mls @ 100 mls/hr IVPB Q12H [facility]; Protocol Stop: 02/08/18 19:31 Last Admin: 02/03/18 10:34 Dose: 100 mls/hr Insulin Human Regular (Humulin R Med) 0 units SC ACHS [facility]ERE; Protocol Last Admin: 02/03/18 10:32 Dose: 1 unit Levalbuterol HCl (Xopenex) 0.63 mg IH [id number] [facility] Last Admin: 02/03/18 16:27 Dose: 0.63 mg Lidocaine (Lidoderm) 1 ea TD DAILY [facility] Last Admin: 02/03/18 10:34 Dose: 1 ea Losartan Potassium (Cozaar) 100 mg PO DAILY [facility] Last Admin: 02/03/18 10:31 Dose: 100 mg Memantine (Namenda) 5 mg PO BID [facility] Last Admin: 02/03/18 10:31 Dose: 5 mg [id number] Ethyl Esters (Lovaza) 1 gm PO BID [facility] Last Admin: 02/03/18 10:31 Dose: 1 gm Ondansetron HCl (Zofran Inj) 4 mg IVP Q4H PRN PRN Reason: Nausea/Vomiting Pantoprazole Sodium (Protonix Ec Tab) 40 mg PO 0600 [facility] Last Admin: 02/03/18 05:48 Dose: 40 mg Tamsulosin HCl (Flomax) 0.4 mg PO DAILY [facility] Last Admin: 02/03/18 10:31 Dose: 0.4 mg Tramadol HCl (Ultram) 50 mg PO TID PRN PRN Reason: Pain, moderate (4-7) Last Admin: 02/03/18 10:31 Dose: 50 mg - Labs Labs: 02/02/18 10:00 02/02/18 10:00 PT 12.9 SECONDS (9.4-12.5) H 02/02/18 10:00 INR 1.12 02/02/18 10:00 APTT 37.0 Seconds (25.1-36.5) H 02/02/18 10:00 Attending/Attestation - Attestation I have personally seen and examined this patient.: Yes I have fully participated in the care of the patient.: Yes I have reviewed all pertinent clinical information, including history, physical exam and plan: Yes
--- NOTE | 2018-01-27 13:49 | PQF ---
PROVIDER RESPONSE TEXT: DEFER TO CARDIOLOGY REVIEWER QUERY TEXT: CHF Acuity and Type Congestive Heart Failure is documented in the Medical Record. Please document the type and acuity (in cludes probable or suspected) Such as: Type: -- Systolic -- Diastolic -- Combined -- Other, please specify Acuity: -- Acute -- Chronic -- Acute on chronic -- Other, please specify Also please document the underlying cause of the CHF (includes probable or suspected) The patient's Clinical Indicators include: Query created by: Maricruz Stock on 01/25/2018 2:32 PM Electronically signed by: lOeg Whitman MD 01/27/2018 1:46 PM
--- NOTE | 2018-01-27 18:28 | PN ---
DATE: 01/26/2018 SUBJECTIVE: The patient is seen in the ICU. He is arousable. He is groggy,, he is somewhat aggravated. Irritable. PHYSICAL EXAMINATION: GENERAL: Morbidly obese elderly male lying in bed in the ICU. VITAL SIGNS: Blood pressure is 158/57, heart rate 70, respiratory rate 22, afebrile. HEENT: Normocephalic, atraumatic, positive pallor. NECK: Supple, no JVD. LUNGS: Bilateral rhonchi, bilateral distant breath sounds, no rales appreciated. CARDIAC: S1, S2, regular rate and rhythm, no murmur, no rub. ABDOMEN: Obese, distended, soft, nontender, bowel sounds present. EXTREMITIES: Ulcer on the lateral aspect of the fifth left toe. INTAKE AND OUTPUT: 1894/1200. LABORATORY DATA: WBC 5.7, hemoglobin 9.2, hematocrit 30, platelets 220. Sodium 139, potassium 3.8, chloride 99, CO2 of 28, BUN 32, creatinine 5.6, glucose 93, calcium 8.3, phosphorus 4.7, magnesium 1.8, albumin 3.5. CURRENT MEDICATIONS: Clonidine 0.1 b.i.d., Colace, heparin drip, insulin, meropenem 500 every 12 hours, Protonix, Tylenol, Xopenex, Zofran, doxycycline 100 every 12 hours. ASSESSMENT: 1. Status post severe sepsis/shock. 2. Enterococcal wound infection. 3. Peripheral vascular disease. 4. Geg-[id number] diabetes mellitus. 5. Hypertension. 6. End-stage renal disease. 7. Anemia of chronic kidney disease. PLAN: 1. Continue antibiotics as per ID recommendations. 2. Continue anticoagulation. 3. Stable dialysis yesterday. 4. Next dialysis will be on Sunday. Yadira Fox MD
--- NOTE | 2018-01-27 18:50 | PN ---
DATE: 01/27/2018 SUBJECTIVE: the patient is seen in ICU, bed 1. The patient is out of bed to recliner. The patient's family is at bedside. The patient is alert, awake, responsive. The patient denies any chest pain, shortness of breath. Denies nausea, vomiting, diarrhea. Denies constipation. Overnight nurse's notes were reviewed. According to the nurses, the patient was found alert, awake, oriented x2. The patient is still on heparin drip. No communication or clearance by the Interventional Radiology regarding the duration of the heparin drip. The patient is continued to be on the heparin drip. The patient is out of bed to chair. The patient is alert, awake, responsive. The patient does not offer a specific complaint. PHYSICAL EXAMINATION: VITAL SIGNS: T-max 98.3, telemetry shows sinus rhythm, overriding paced rhythm, heart rate 62, 67; blood pressure in the last 24 hours 157/63, 160/84, 141/51, 102/57, 122/52, 148/57, 165/65, 150/61; respirations 26, 25, 22, 24, 26, 29, 28; O2 sat is 88%, 93%, 95%, 97%, 100%. Intake, output not documented. HEENT: Head examination normocephalic, atraumatic. HEENT examination shows pinkish pale conjunctivae. Anicteric sclerae. No oropharyngeal lesion. No neck rigidity. CHEST: Positive kyphosis. LUNGS: Shows occasional rhonchi. CARDIOVASCULAR: S1, S2. Regular rhythm. Questionable soft systolic murmur, left sternal border, right second intercostal space, left second intercostal space. ABDOMEN: Soft. Less protuberant. Positive bowel sound. GENITALIA: Male. RECTAL: Examination is deferred. EXTREMITY: Shows positive dressing in the lower extremity. No pitting edema. Positive left upper extremity AV fistula. Positive right upper extremity IV access. Positive swelling of the right upper extremity. MUSCULOSKELETAL: Shows a body mass index of greater than 41. DIAGNOSTICS: On 01/27/2018, hemoglobin and hematocrit 8.9 and 29.1, platelet 207. Normal granulocytes, PTT 61. Fingerstick blood sugar 199, 98, 105, 149, 172, 147. Sodium 140, potassium 3.8, chloride 100, CO2 of 25, anion gap 19, BUN 44, creatinine 7.4, glucose 105, calcium 8.1, phosphorus 6. LFTs are normal. Left foot wound cultures are growing Staph and Enterobacter cloacae. IMPRESSION AND PLAN: 1. Systemic inflammatory response syndrome with hypotension. 2. Severe peripheral vascular disease. 3. Left fifth toe osteomyelitis with Enterobacter cloacae and Staphylococcus aureus on left fifth toe osteomyelitis. 4. Status post hypotension. 5. Tachypnea. 6. Hypoxemia. 7. Normocytic anemia with granulocytosis and elevated C-reactive protein. 8. End-stage renal disease, hemodialysis dependent three times a week via the left upper extremity arteriovenous fistula. 9. Elevated C-reactive protein. 10. Insulin-requiring diabetes mellitus with hemoglobin A1c of 6. 11. Elevated C-reactive protein of greater than 15. 12. Diastolic right-sided congestive heart failure with elevated right ventricular systolic pressure of 54 mmHg. 13. Left ventricular ejection fraction of 56%. 14. Grade 1 abnormal relaxation pattern. 15. Moderately dilated left and right atrium. 16. Mildly sclerotic aortic valve. 17. Moderate mitral annular calcification. 18. Mild mitral regurgitation. 19. Mild tricuspid regurgitation with moderate pulmonary hypertension and right ventricular systolic pressure of 54 mmHg with right-sided diastolic congestive heart failure. 20. Left foot base of the fifth proximal phalanx chronic fracture. 21. Extensive emphysema. 22. Right lower lobe consolidation, atelectasis with small pleural effusion. 23. Mitral valve calcification. 24. Status post abdominal aortogram and bilateral lower extremity runoff with left selective view. 25. Status post left peroneal artery atherectomy and balloon angioplasty. 26. Left anterior tibial artery angioplasty. 27. Severe peripheral vascular disease. 28. Left foot osteomyelitis and gangrene. 29. End-stage renal disease. 30. Deconditioning. 31. Gait dysfunction. 32. Left foot fifth digit gangrenous osteomyelitis. 33. Right upper extremity swelling, etiology undetermined. 34. [id number] oropharyngeal dysphagia with moderate risk for aspiration due to missing upper full dentures. Immediate cough with bite size and mixed consistency solid, liquid food with delayed swallowing initiation and slow oral transit. 1. Systemic inflammatory response syndrome. 2. Left foot toes osteomyelitis secondary to Enterobacter cloacae and Staphylococcus aureus, left foot toe diabetic ulceration and osteomyelitis. 3. Status post hypotension. 4. Hypertension. 5. Elevated erythrocyte sedimentation rate of 57. 6. Anemia of chronic disease. 7. Hypocalcemia. 9. Insulin-requiring diabetes mellitus with hemoglobin A1c of 6. 10. Hyperphosphatemia. 11. Elevated C-reactive protein. 12. Gait dysfunction. 13. Deconditioning. 14. End-stage renal disease, hemodialysis dependent via the left upper extremity AV fistula. 15. Proteinuria, glycosuria, microscopic hematuria, pyuria, bacteriuria. 1. Status post severe symptomatic hypotension. 2. Severe peripheral vascular disease with bilateral tibial occlusive disease, status post angiogram. status post left tibial artery angioplasty, left peroneal artery angioplasty. 3. End-stage renal disease, hemodialysis dependent. 4. Tachypnea. 5. Normocytic anemia with granulocytosis 6. Elevated erythrocyte sedimentation rate of 57. 7. Hypocalcemia, hyperphosphatemia. 8. Elevated C-reactive protein of greater than 15. 9. Secondary hyperparathyroidism. 10. Well-controlled insulin-requiring diabetes mellitus with hemoglobin A1c of 6. 11. Left foot and left lower extremity gram-negative hailey, gram-positive cocci, left foot, left lower extremity cellulitis, diabetic ulceration and possible osteomyelitis. 12. Status post abdominal aortogram, bilateral lower extremity runoff with non-selective view. 13. Status post left peroneal artery atherectomy and balloon angioplasty. 14. Left anterior tibial artery angioplasty. 15. Severe left lower extremity pedal occlusive disease. 16. Deconditioning. 17. Gait dysfunction. 18. Poor intravenous access. 19. Upper lobe extensive emphysema with right lower lobe consolidation with effusion. 20. Mitral valve calcification. 21. Left fifth proximal phalanx chronic fracture of the base. 22. Left foot third toe amputation. 23. Left ventricle ejection fraction of 55% with pulmonary hypertension and right ventricular systolic pressure of 54 mmHg. 24. Concentric left ventricular hypertrophy with grade 1 abnormal relaxation pattern. 25. Permanent pacemaker implant. 26. Moderately dilated right and left atrium. 27. Mild aortic valve sclerosis. 28. Moderate mitral annular calcification with mild mitral regurgitation. 29. Mild tricuspid regurgitation with moderate pulmonary hypertension with right ventricular systolic pressure of 54 mmHg. 30. Anemia of chronic disease. 31. Left fifth digit gangrene and diabetic ulceration and gangrene. 32. Chronic obstructive pulmonary disease. 33. Poor intravenous access. 34. Systemic inflammatory response syndrome. 35. Hypotension probably secondary to over hemodialysis. 36. Left fifth toe necrotic. 1. Severe symptomatic hypotension. 2. Left foot osteomyelitis, status post intravenous antibiotic treatment. 3. Tachypnea. 4. Hypoxemia. 5. Normocytic anemia. 6. Granulocytosis. 7. Elevated erythrocyte sedimentation rate of 57. 8. End-stage renal disease, hemodialysis dependent three times a week via left upper extremity arteriovenous fistula. 9. Hyperphosphatemia and secondary hyperparathyroidism. 10. Elevated C-reactive protein of greater than 15. 11. Questionable congestive heart failure with elevated BNP versus volume overload and fluid overload. 12. 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 13. Bilateral lower extremity peripheral arterial disease with bilateral tibial occlusive disease, left greater than the right. 14. Bilateral lower extremity venous stasis. 15. Questionable congestive heart failure with pulmonary vascular congestion and cardiomegaly. 16. Insulin-requiring diabetes mellitus. 17. Permanent pacemaker implant. 18. Left foot fifth toe diabetic ulceration versus osteomyelitis. 19. Left foot fifth digit gangrene and gangrenous ulcer. 20. Severe peripheral vascular disease. 21. Secondary hyperparathyroidism. 22. History of hypertension, chronic obstructive pulmonary disease. 23. History of questionable poor healing left foot diabetic ulceration and gangrenous diabetic ulceration and osteomyelitis. 24. Status post left foot third toe amputation. 25. Severe emphysema of the upper lobes and right lower lobe atelectasis, consolidation and small pleural effusion. 26. Mitral valve calcification. 27. Deconditioning. 28. Constipation. 1. History of left foot osteomyelitis, status post intravenous antibiotic treatment. 2. End-stage renal disease, hemodialysis dependent. 3. History of hypertension. 4. Persistent refractory hypotension, etiology undetermined. 5. Hypoxemia. 6. Normocytic anemia with granulocytosis. 7. Elevated BNP, etiology undetermined. 8. Elevated C-reactive protein. 9. Peripheral vascular disease of the lower extremity. 10. Bilateral lower extremity venous stasis. 11. Gait dysfunction. 12. Deconditioning. 13. Cardiomegaly with mild pulmonary vascular congestion. 14. History of dementia. 15. History of permanent pacemaker implant. 16. History of prostatic hypertrophy, history of hypertriglyceridemia, history of secondary hyperparathyroidism. 17. Insulin-requiring diabetes mellitus. 18. Sick sinus syndrome. 19. History of left foot toe amputation. 20. Diabetic foot ulcer. 21. Left upper extremity arteriovenous fistula. 22. Left hand finger amputation. 23. History of nicotine dependence. 24. Sepsis. 25. Pneumonia. 26. Pulmonary hypertension with moderate concentric left ventricular hypertrophy. 27. Moderate mitral annular calcification. 28. Moderate pulmonary hypertension with right ventricular systolic pressure of 53 mmHg. 29. History of respiratory failure. 30. Oropharyngeal candidiasis. 31. Macroglossia. 32. Hypovitaminosis D. 33. History of sepsis secondary to healthcare-associated pneumonia, epiglottitis, and oropharyngeal candidiasis. 34. Uncontrolled diabetes mellitus. 35. History of BiPAP-requiring respiratory failure. 36. Obesity. 37. Hyperprocalcitoninemia . 38. Sinusitis. 39. History of chronic obstructive pulmonary disease exacerbation. 40. 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 41. Pulmonary emphysema. Plan at this time, the patient has been ordered a venous Doppler of the right upper extremity stat. CURRENT CONSULTATION: Cardiology, Infectious Disease, Nephrology, Podiatry, Interventional Radiology. Case referred to [employer] Supervisor, software educator, TCU evaluation. CURRENT MEDICATIONS: Clonidine 0.1 twice a day, Colace 100 mg three times a day, aspirin 81 mg daily, heparin drip as per Dr. Yong Womack, Humulin medium-dose sliding scale coverage before meals and at bedtime, meropenem 500 mg IV every 12, Protonix 40 daily for GI prophylaxis, Tessalon Perles 200 three times a day, Tylenol p.r.n., Xopenex nebulizer 0.63 mg every 6 hours, Zofran 4 mg IV every 4 p.r.n. Venous Doppler of the right upper extremity ordered stat. Chest PT, oxygen 2 L nasal cannula. Plan at this time, the patient has been ordered transfer of the patient out of the ICU. The patient's blood pressure has stabilized in the last 24-48 hours. The patient updated about his condition, diagnoses, treatment plan, management plan at length. All questions concerned answered. Dictated and electronically signed, not read. Oleg Whitman MD [facility]TD[facility]ory[facility]
[2018-01-28] MEDS: Levalbuterol 0.63 MG/3 ML Inhal Soln UD IH SCH ×5 (02:10→19:41)
[2018-01-28] MEDS: Insulin Reg-MEDIUM-Coverage SC SCH ×4 (04:48→17:11)
[2018-01-28] MEDS: Pantoprazole 40 mg EC Tab PO SCH (05:31)
[2018-01-28] MEDS: Meropenem 500 MG in Sodium Chloride 0.9% 50 ML IVPB SCH (09:15)
--- NOTE | 2018-01-28 09:38 | US ---
PROCEDURE: Right upper extremity venous US CLINICAL HISTORY: Arm pain and swelling Evaluate for deep venous thrombosis. PHYSICIAN(S): Yong Womack M.D FINDINGS: The visualized rightinternal jugular vein is sonographically normal and compressible. No evidence of obstruction or thrombus is seen. The visualized segments of the right subclavian vein are patent with normal waveforms. No sonographic evidence of obstruction or thrombosis is seen. The visualized deep venous system of the proximal right upper extremity is sonographically normal and compressible. IMPRESSION: 1. No sonographic evidence for deep venous thrombosis in the visualized segments of the right upper extremity.
--- NOTE | 2018-01-28 11:43 | PN ---
DATE: 01/28/2018 SUBJECTIVE: The patient is lying in bed in no acute distress. OBJECTIVE: VITAL SIGNS: Blood pressure is 135/65, heart rate is paced in the 60s. NECK: Negative JVD. LUNGS: Decreased breath sounds. HEART: Reveal S1, S2. EXTREMITIES: Without change. DATA: Hemoglobin is 8.9. Chemistries: Potassium is 3.8, glucose is 143. IMPRESSION: 1. End-stage renal disease. 2. Resolution of hypotension. 3. Status post angioplasty of the distal lower extremities. 4. Diabetes mellitus. 5. Peripheral vascular disease. 6. Moderate pulmonary hypertension. Given these findings, the patient is hemodynamically stable. No recurrence of hypotension, which is likely due to his volume status. Yong Duran MD
--- NOTE | 2018-01-28 12:12 | CP.PCM.PN ---
Subjective - Date & Time of Evaluation Date of Evaluation: 01/28/18 Time of Evaluation: 09:30 - Subjective Subjective: Comfortable in bed, no fevers, no pain in the left foot or leg, no diarrhea or nausea. Objective - Vital Signs/Intake and Output Vital Signs (last 24 hours): Temp Pulse Resp BP Pulse Ox 98.4 F 63 23 129/39 L 97 01/27/18 16:00 01/27/18 18:10 01/27/18 17:00 01/27/18 18:10 01/27/18 18:00 Intake and Output: 01/27/18 01/28/18 18:59 06:59 Intake Total 880 250 Balance 880 250 - Medications Medications: Current Medications Acetaminophen (Tylenol 325mg Tab) 650 mg PO Q6 PRN PRN Reason: TEMP>=99.5F Acetaminophen (Tylenol 650 Mg Supp) 650 mg RC Q6H PRN PRN Reason: TEMP>=99.5F Aspirin (Ecotrin) 81 mg PO DAILY [facility] Last Admin: 01/27/18 10:00 Dose: 81 mg Benzonatate (Tessalon Perles) 200 mg PO TID [facility] Last Admin: 01/27/18 18:11 Dose: 200 mg Clonidine HCl (Catapres) 0.1 mg PO BID [facility] Last Admin: 01/27/18 18:10 Dose: 0.1 mg Dextrose (Dextrose 50% Inj) 25 ml IV STAT PRN; Protocol PRN Reason: Hypoglycemia Protocol Docusate Sodium (Colace) 100 mg PO TID [facility] Last Admin: 01/27/18 18:10 Dose: 100 mg Dextrose (Dextrose 5% In Water 1000 Ml) 1,000 mls @ 0 mls/hr IV .Q0M PRN; Protocol; Per Protocol PRN Reason: Hypoglycemia Protocol Meropenem 500 mg/ Sodium (Chloride) 50 mls @ 100 mls/hr IVPB Q12 JERE PRN Reason: Protocol Stop: 01/30/18 22:01 Last Admin: 01/27/18 21:13 Dose: 100 mls/hr Heparin Sodium/Sodium Chloride (Heparin 63473 Units/250ml 1/2 Normal Saline) 25 ,000 units in 250 mls @ 21.339 mls/hr IV .[id number] PRN; Protocol; 18 UNITS/KG/HR PRN Reason: ADJUST RATE PER PROTOCOL Last Admin: 01/27/18 21:12 Dose: 15 units/kg/hr, 17.783 mls/hr Insulin Human Regular (Humulin R Med) 0 units SC ACHS JERE PRN Reason: Protocol Last Admin: 01/27/18 16:05 Dose: 3 unit Levalbuterol HCl (Xopenex) 0.63 mg IH [id number] [facility] Last Admin: 01/27/18 20:34 Dose: 0.63 mg Ondansetron HCl (Zofran Inj) 4 mg IVP Q4H PRN PRN Reason: Nausea/Vomiting Pantoprazole Sodium (Protonix Ec Tab) 40 mg PO 0600 [facility] Last Admin: 01/27/18 05:31 Dose: 40 mg - Labs Labs: 01/27/18 05:00 01/27/18 05:00 PT 13.3 SECONDS (9.4-12.5) H 01/23/18 11:00 INR 1.15 01/23/18 11:00 APTT 60.7 Seconds (25.1-36.5) H 01/27/18 05:00 - Constitutional Appears: Chronically Ill - Head Exam Head Exam: NORMAL INSPECTION - Neck Exam Neck Exam: absent: Meningismus - Respiratory Exam Respiratory Exam: Decreased Breath Sounds - Cardiovascular Exam Cardiovascular Exam: +S1, +S2 - GI/Abdominal Exam GI & Abdominal Exam: Soft. absent: Tenderness - Extremities Exam Additional comments: left foot with amputated 3rd toe, necrotic dry gangrenous lesions on the toes Assessment and Plan - Assessment and Plan (Free Text) Plan: Assessment consider dry gangrene of the left foot toes with MSSA and Enterobacter in this patient with peripheral arterial disease history of severe sepsis due to left foot cellulitis with left 5th toe gangrene and clinical osteomyelitis history of severe sepsis due to healthcare-associated pneumonia as well as epiglottitis with oropahryngeal candidiasis ESRD on HD DM HTN morbid obesity with BMI 41 dyslipidemia COPD cataracts chronic low back pain Plan continue Merrem day 5 and follow up further plans for revascularization and further plans of Podiatry will continue to monitor clinically
[2018-01-28] MEDS: Heparin25000 units/250ml 1/2NS 25,000 UNITS/250 ML BAG IV PRN (12:40)
--- NOTE | 2018-01-28 14:55 | PN ---
DATE: 01/28/2018 SUBJECTIVE: The patient is seen lying in bed in the ICU. He is awake, he is alert. He denies any chest pain. Denies any palpitations. Denies any abdominal pain. PHYSICAL EXAMINATION: GENERAL: Obese elderly man lying in bed. VITAL SIGNS: Blood pressure 135/65, heart rate 66, respiratory rate 18, temperature 98.7. HEENT: Normocephalic, atraumatic, positive pallor. NECK: Supple, no JVD. LUNGS: Bilateral equal entry, bilateral equal expansion, no rhonchi, no rales, distant breath sounds. CARDIAC: S1, S2, regular rate and rhythm, no murmur, no rub. ABDOMEN: Obese, distended, soft, nontender, bowel sounds present. EXTREMITIES: Cyanosis of multiple toes of the left foot, ulcer on the lateral aspect of the left fifth toe. LABORATORY DATA. No new labs. CURRENT MEDICATIONS: List reviewed. ASSESSMENT AND PLAN: 1. Severe peripheral vascular disease, status post angioplasty of the left lower extremity. 2. Nonhealing ulcer of the left foot. 3. End-stage renal disease. 4. Status post septic shock/profound hypotension. 5. Non-insulin dependent diabetes mellitus. 6. History of osteomyelitis. PLAN: 1. Continue antibiotics as per ID recommendations. 2. Dialysis today. 3. Continue heparin IV. 4. Continue phosphate binders. Yadira Fox MD
--- NOTE | 2018-01-28 19:25 | CP.PCM.PN ---
<Lico Matias - Last Filed: 01/28/18 19:11> Subjective - Date & Time of Evaluation Date of Evaluation: 01/28/18 Time of Evaluation: 19:11 - Subjective Subjective: Podiatry progress note for Dr. Maher 78M seen at bedside for gangrenous changes to left fifth digit. Patient is AAO x 3 resting comfortably in bed at time of visit and not in acute distress. Patient denies any new pedal complaints. Patient denies any overnight acute events. Patient denies any overnight F/N/V/C or SOB. Objective - Vital Signs/Intake and Output Vital Signs (last 24 hours): Temp Pulse Resp BP Pulse Ox 98.7 F 66 22 154/51 H 80 L 01/28/18 16:00 01/28/18 17:32 01/28/18 16:00 01/28/18 17:32 01/28/18 08:00 Intake and Output: 01/28/18 01/29/18 18:59 06:59 Intake Total 250 Balance 250 - Medications Medications: Current Medications Acetaminophen (Tylenol 325mg Tab) 650 mg PO Q6 PRN PRN Reason: TEMP>=99.5F Acetaminophen (Tylenol 650 Mg Supp) 650 mg RC Q6H PRN PRN Reason: TEMP>=99.5F Aspirin (Ecotrin) 81 mg PO DAILY [facility] [place] Last Admin: 01/28/18 09:14 Dose: 81 mg Benzonatate (Tessalon Perles) 200 mg PO TID [facility] [place] Last Admin: 01/28/18 17:12 Dose: 200 mg Clonidine HCl (Catapres) 0.1 mg PO BID [facility] [place] Last Admin: 01/28/18 17:32 Dose: 0.1 mg Dextrose (Dextrose 50% Inj) 25 ml IV STAT PRN; Protocol PRN Reason: Hypoglycemia Protocol Docusate Sodium (Colace) 100 mg PO TID [facility] [place] Last Admin: 01/28/18 17:33 Dose: 100 mg Dextrose (Dextrose 5% In Water 1000 Ml) 1,000 mls @ 0 mls/hr IV .Q0M PRN; Protocol; Per Protocol PRN Reason: Hypoglycemia Protocol Meropenem 500 mg/ Sodium (Chloride) 50 mls @ 100 mls/hr IVPB Q12 JERE PRN Reason: Protocol Stop: 01/30/18 22:01 Last Admin: 01/28/18 09:15 Dose: 100 mls/hr Heparin Sodium/Sodium Chloride (Heparin 71142 Units/250ml 1/2 Normal Saline) 25,000 units in 250 mls @ 21.339 mls/hr IV .[id number] PRN; Protocol; 18 UNI TS/KG/HR PRN Reason: ADJUST RATE PER PROTOCOL Last Admin: 01/28/18 12:40 Dose: 15 units/kg/hr, 17.783 mls/hr Insulin Human Regular (Humulin R Med) 0 units SC [facility] [place] PRN Reason: Protocol Last Admin: 01/28/18 17:11 Dose: Not Given Levalbuterol HCl (Xopenex) 0.63 mg IH [id number] [facility] [place] Last Admin: 01/28/18 14:02 Dose: 0.63 mg Ondansetron HCl (Zofran Inj) 4 mg IVP Q4H PRN PRN Reason: Nausea/Vomiting Pantoprazole Sodium (Protonix Ec Tab) 40 mg PO 0600 [facility] [place] Last Admin: 01/28/18 05:31 Dose: 40 mg - Labs Labs: 01/27/18 05:00 01/27/18 05:00 PT 13.3 SECONDS (9.4-12.5) H 01/23/18 11:00 INR 1.15 01/23/18 11:00 APTT 68.7 Seconds (25.1-36.5) H 01/28/18 08:50 - Constitutional Appears: Well, Non-toxic, No Acute Distress - Head Exam Head Exam: ATRAUMATIC, NORMOCEPHALIC - Extremities Exam Additional comments: Left LE focused Exam: Vasc: DP/PT pulses are palpable 1/4, bed side doppler audiable monophasic interdigital arteries 1-3. Cap refill time < 3 sec in all digits, skin temperature gradient: warm to cool from proximal to distal. L 5th digit became dark black in color. Dark discoloration noted in all the digits up to the level of the distal met. shafts. Neuro: Protective sensation diminished. Gross sensation intact. DERM: Ulceration on the dorsum of the 5th digit measuring approximately 1.5 cm x 3 cm with wound bed completely necrotic, covered by dry black eschar, the whole left 5th toe becomes black in color, no active drainage, no malodor, no tunneling or tracking, no purulent drainage, No erythema noted at the dorsum of the left forefoot, no clinical signs of infection. An area of ecchymosis noted on the dorsum of the 1st, 2nd and 4th left digits which is covered partially by dry scab. color changes appears in all the digits (it become darker up to the level of the met. shafts) MSK: Pain on palpation of the digits particularly the 5th digit. Muscle power intact 5/5 in all groups. - Neurological Exam Neurological Exam: Alert, Awake, Oriented x3 - Psychiatric Exam Psychiatric exam: Normal Affect, Normal Mood Assessment and Plan - Assessment and Plan (Free Text) Assessment: 78 y/o M patient seen and evaluated at the bedside for gangrenous changes to left fifth digit Plan: Patient seen and evaluated at the bed side with attening Dr. Maher Plan discussed with Dr. Maher Chart, labs and vitals reviewed; Afebrile, absent leukocytosis Wound cx: Enterobacter Cloacae, Staph Aureus Continue abx per ID LE arterial duplex: BEATRIZ R 1.14. Bilateral sever tibial occlusive disease L > R B/L LE venous Duplex; No DVT. Left foot x-ray: Chronic fracture in the base of the 5th proximal phalanx. Distal phalanx erosions. Ulceration left open to air. no dressing MRI to be considered after patient is more stable Patient underwent succeful revascularization of his Left LE Discussed with the patient all the surgical possibilities (Left 5th digit amputation vs left TMA). Benefits, risks, alternatives and possible complications for surgery discussed with the patient. Patient expressed verbal understanding. Will speak with him and his upon his own desire tomorrow for the final decision. Podiatry will continue to follow up the patient while in house. <Lizbeth Maher - Last Filed: 01/30/18 13:21> Objective - Vital Signs/Intake and Output Vital Signs (last 24 hours): Temp Pulse Resp BP Pulse Ox 97.8 F 69 20 177/74 H 93 L 01/30/18 06:00 01/30/18 06:00 01/30/18 06:00 01/30/18 06:00 01/30/18 06:00 Intake and Output: 01/30/18 01/30/18 06:59 18:59 Intake Total 924 Output Total 1200 Balance -276 - Medications Medications: Current Medications Acetaminophen (Tylenol 325mg Tab) 650 mg PO Q6 PRN PRN Reason: TEMP>=99.5F Last Admin: 01/29/18 21:21 Dose: 650 mg Acetaminophen (Tylenol 650 Mg Supp) 650 mg RC Q6H PRN PRN Reason: TEMP>=99.5F Aspirin (Ecotrin) 81 mg PO DAILY [facility] [place] Last Admin: 01/29/18 12:42 Dose: 81 mg Benzonatate (Tessalon Perles) 200 mg PO TID [facility] [place] Last Admin: 01/29/18 18:23 Dose: 200 mg Clonidine HCl (Catapres) 0.1 mg PO BID [facility] [place] Last Admin: 01/29/18 18:26 Dose: Not Given Dextrose (Dextrose 50% Inj) 25 ml IV STAT PRN; Protocol PRN Reason: Hypoglycemia Protocol Docusate Sodium (Colace) 100 mg PO TID [facility] [place] Last Admin: 01/29/18 18:23 Dose: 100 mg Dextrose (Dextrose 5% In Water 1000 Ml) 1,000 mls @ 0 mls/hr IV .Q0M PRN; Protocol PRN Reason: Hypoglycemia Protocol Meropenem 500 mg/ Sodium (Chloride) 50 mls @ 100 mls/hr IVPB Q12 JERE; Protocol Stop: 01/30/18 22:01 Last Admin: 01/29/18 12:49 Dose: 100 mls/hr Heparin Sodium/Sodium Chloride (Heparin 53226 Units/250ml 1/2 Normal Saline) 25,000 units in 250 mls @ 21.339 mls/hr IV .[id number] PRN; Protocol PRN Reason: ADJUST RATE PER PROTOCOL Last Admin: 01/29/18 18:43 Dose: 10 units/kg/hr, 11.855 mls/hr Insulin Human Regular (Humulin R Med) 0 units SC ACHS [facility] [place]; Protocol Last Admin: 01/30/18 08:32 Dose: Not Given Levalbuterol HCl (Xopenex) 0.63 mg IH [id number] [facility] [place] Last Admin: 01/30/18 07:24 Dose: Not Given Ondansetron HCl (Zofran Inj) 4 mg IVP Q4H PRN PRN Reason: Nausea/Vomiting Pantoprazole Sodium (Protonix Ec Tab) 40 mg PO 0600 [facility] [place] Last Admin: 01/30/18 06:22 Dose: 40 mg - Labs Labs: 01/30/18 06:15 01/30/18 06:15 PT 12.7 SECONDS (9.4-12.5) H 01/30/18 06:15 INR 1.10 01/30/18 06:15 APTT 37.7 Seconds (25.1-36.5) H 01/30/18 06:15 Attending/Attestation - Attestation I have personally seen and examined this patient.: Yes I have fully participated in the care of the patient.: Yes I have reviewed all pertinent clinical information, including history, physical exam and plan: Yes
--- NOTE | 2018-01-28 21:43 | CP.PCM.PN ---
Subjective - Date & Time of Evaluation Date of Evaluation: 01/28/18 Time of Evaluation: 09:10 - Subjective Subjective: PGY-[address] Whitman No acute events noted overnight. Patient did not offer any complaints. He said his left foot is numb but he occasionally feels pain in his muñoz. He denied sob , cp, f/c, n/v. Objective - Vital Signs/Intake and Output Vital Signs (last 24 hours): Temp Pulse Resp BP Pulse Ox 98.5 F 62 20 133/61 95 01/28/18 18:25 01/28/18 18:25 01/28/18 18:25 01/28/18 18:25 01/28/18 19:15 Intake and Output: 01/28/18 01/29/18 18:59 06:59 Intake Total 754 Output Total 451 Balance 303 - Medications Medications: Current Medications Acetaminophen (Tylenol 325mg Tab) 650 mg PO Q6 PRN PRN Reason: TEMP>=99.5F Acetaminophen (Tylenol 650 Mg Supp) 650 mg RC Q6H PRN PRN Reason: TEMP>=99.5F Aspirin (Ecotrin) 81 mg PO DAILY [facility] Last Admin: 01/28/18 09:14 Dose: 81 mg Benzonatate (Tessalon Perles) 200 mg PO TID [facility] Last Admin: 01/28/18 17:12 Dose: 200 mg Clonidine HCl (Catapres) 0.1 mg PO BID [facility] Last Admin: 01/28/18 17:32 Dose: 0.1 mg Dextrose (Dextrose 50% Inj) 25 ml IV STAT PRN; Protocol PRN Reason: Hypoglycemia Protocol Docusate Sodium (Colace) 100 mg PO TID [facility] Last Admin: 01/28/18 17:33 Dose: 100 mg Dextrose (Dextrose 5% In Water 1000 Ml) 1,000 mls @ 0 mls/hr IV .Q0M PRN; Protocol; Per Protocol PRN Reason: Hypoglycemia Protocol Meropenem 500 mg/ Sodium (Chloride) 50 mls @ 100 mls/hr IVPB Q12 [facility] PRN Reason: Protocol Stop: 01/30/18 22:01 Last Admin: 01/28/18 09:15 Dose: 100 mls/hr Heparin Sodium/Sodium Chloride (Heparin 41239 Units/250ml 1/2 Normal Saline) 25 ,000 units in 250 mls @ 21.339 mls/hr IV .[id number] PRN; Protocol; 18 UNITS/KG/HR PRN Reason: ADJUST RATE PER PROTOCOL Last Admin: 01/28/18 12:40 Dose: 15 units/kg/hr, 17.783 mls/hr Insulin Human Regular (Humulin R Med) 0 units SC ACHS JERE PRN Reason: Protocol Last Admin: 01/28/18 17:11 Dose: Not Given Levalbuterol HCl (Xopenex) 0.63 mg IH [id number] [facility] Last Admin: 01/28/18 19:41 Dose: 0.63 mg Ondansetron HCl (Zofran Inj) 4 mg IVP Q4H PRN PRN Reason: Nausea/Vomiting Pantoprazole Sodium (Protonix Ec Tab) 40 mg PO 0600 [facility] Last Admin: 01/28/18 05:31 Dose: 40 mg - Labs Labs: 01/27/18 05:00 01/27/18 05:00 PT 13.3 SECONDS (9.4-12.5) H 01/23/18 11:00 INR 1.15 01/23/18 11:00 APTT 68.7 Seconds (25.1-36.5) H 01/28/18 08:50 - Additional Findings Additional findings: - Constitutional Appears: Well, Non-toxic, No Acute Distress, Chronically Ill - Head Exam Head Exam: NORMAL INSPECTION - Eye Exam Eye Exam: Normal appearance - ENT Exam ENT Exam: Mucous Membranes Dry - Neck Exam Neck Exam: Normal Inspection - Respiratory Exam Respiratory Exam: Decreased Breath Sounds, NORMAL BREATHING PATTERN. absent: Rales, Rhonchi, Wheezes, Respiratory Distress - Cardiovascular Exam Cardiovascular Exam: RRR, +S1, +S2 - GI/Abdominal Exam GI & Abdominal Exam: Soft. 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 Patient did not meet criteria for sepsis on admission. X-ray of left foot showed chronic fracture of base of fifth proximal phalanx with no evidence of osteomyelitis. Due to severe PVD, patient underwent left peroneal artery arthrectomy and balloon angioplasty, left anterior tibial artery angioplasty and severe left pedal occlusive disease was noted during aortogram with LE runoff by Dr. Womack on 01/24/18. CT head, chest, abdomen and pelvis were unremarkable for other causes of hypotension. Patient currently on heparin drip being managed by ICU team and IR recommendations. 1. Left fifth phalanx cellulitis, rule out osteomyelitis with underlying uncontrolled DM 2 and PVD - Continue heparin drip per IR recommendations, maintain therapeutic PTT - Continue aspirin - Continue doxycycline and meropenem empirically - Blood and wound cultures are pending - Podiatry consulted, recs appreciated - ID consulted, recs appreciated - Transfer out of ICU once cleared by IR and ICU team to telemetry 2. History of sinus arrest, S/P pacemaker - Cardiology consulted, recs appreciated 3. History of DM 2 - Consistent carbohydrate diet - Start ISS - Accucheck ACHS 4. History of ESRD on HD - Nephrology consulted for dialysis (MWF) - Monitor electrolytes and manage appropriately 5. History of COPD - Xopenex - Yoana Hendrix 6. PPX - Protonix for GI ppx - Heparin/SCD's for DVT ppx Case was reviewed and discussed with attending, Dr. Whitman
[2018-01-29] MEDS: Meropenem 500 MG in Sodium Chloride 0.9% 50 ML IVPB SCH ×2 (01:42→12:49)
[2018-01-29] MEDS: Insulin Reg-MEDIUM-Coverage SC SCH ×4 (01:42→16:37)
[2018-01-29] MEDS: Levalbuterol 0.63 MG/3 ML Inhal Soln UD IH SCH ×4 (01:50→20:50)
[2018-01-29] MEDS: Heparin25000 units/250ml 1/2NS 25,000 UNITS/250 ML BAG IV PRN ×3 (08:03→18:43)
--- NOTE | 2018-01-29 08:54 | PN ---
DATE: 01/28/2018 SUBJECTIVE: The patient is seen in ICU, bed 1. The patient is seen lying in the bed. The patient is alert, awake, responsive; does not appear to be in any distress. Overnight nurse's notes were reviewed. The patient was again found to be alert, awake, oriented x2. This morning, the patient was found to be alert, awake, oriented x2 to 3. PHYSICAL EXAMINATION: VITAL SIGNS: T-max 98.7. Telemetry shows 64 pulse, blood pressure was in the last 24 hours 165/65, 129/39, 142/53, 135/65. Respirations 19. O2 sat is 90%, 87%, 79%, 93%. HEENT: Head: Normocephalic, atraumatic. HEENT examination shows pinkish pale conjunctivae. Anicteric sclerae. No oropharyngeal lesion. No neck rigidity. CHEST: Kyphosis. Positive left upper chest pacemaker. LUNGS: Shows questionable rhonchi in upper lung [place], questionable decreased breath sounds. CARDIOVASCULAR: S1, S2 regular rhythm. Positive systolic murmur, left sternal border, right second intercostal space, left second intercostal space. ABDOMEN: Soft. Positive bowel sounds. GENITALIA: Male. EXTREMITIES: Positive swelling of the right upper extremity. Positive left upper extremity AV fistula. No pitting edema of the lower extremity noted. MUSCULOSKELETAL: Shows a body mass index of 41.3. DIAGNOSTICS: No CBC done today. PTT is 68. CMP, none from today. Fingerstick blood sugar 111, 93, 143, 221, 199. Left calf cultures, Enterobacter cloacae and Staphylococcus aureus. Venous Doppler of the right upper extremity was negative for DVT. IMPRESSION: 1. Status post hypotension. 2. End-stage renal disease, hemodialysis dependent. 3. Severe peripheral vascular disease, status post angioplasty. 4. Left foot diabetic nonhealing ulcer with history of osteomyelitis. 5. Status post hypotension versus shock. 6. Systemic inflammatory response syndrome. 7. Methicillin-sensitive Staphylococcus aureus and Enterobacter cloacae, dry gangrene of the left foot toes. 8. Deconditioning. 9. Gait dysfunction. 10. Moderate oropharyngeal dysphagia with moderate risk for aspiration. 11. Insulin-requiring diabetes mellitus with hemoglobin A1c of 6. 12. Pulmonary hypertension with right ventricular systolic pressure of 54 mmHg. 13. Left ventricular hypertrophy of 56%. 14. Grade 1 abnormal relaxation pattern. 15. Moderately dilated left and right atrium. 16. Mildly sclerotic aortic valve. 17. Moderate mitral annular calcification. 18. Mild tricuspid and mild mitral regurgitation. 19. Left peroneal artery atherectomy and balloon angioplasty. 20. Left anterior tibial artery angioplasty. 1. Systemic inflammatory response syndrome with hypotension. 2. Severe peripheral vascular disease. 3. Left fifth toe osteomyelitis with Enterobacter cloacae and Staphylococcus aureus on left fifth toe osteomyelitis. 4. Status post hypotension. 5. Tachypnea. 6. Hypoxemia. 7. Normocytic anemia with granulocytosis and elevated C-reactive protein. 8. End-stage renal disease, hemodialysis dependent three times a week via the left upper extremity arteriovenous fistula. 9. Elevated C-reactive protein. 10. Insulin-requiring diabetes mellitus with hemoglobin A1c of 6. 11. Elevated C-reactive protein of greater than 15. 12. Diastolic right-sided congestive heart failure with elevated right ventricular systolic pressure of 54 mmHg. 13. Left ventricular ejection fraction of 56%. 14. Grade 1 abnormal relaxation pattern. 15. Moderately dilated left and right atrium. 16. Mildly sclerotic aortic valve. 17. Moderate mitral annular calcification. 18. Mild mitral regurgitation. 19. Mild tricuspid regurgitation with moderate pulmonary hypertension and right ventricular systolic pressure of 54 mmHg with right-sided diastolic congestive heart failure. 20. Left foot base of the fifth proximal phalanx chronic fracture. 21. Extensive emphysema. 22. Right lower lobe consolidation, atelectasis with small pleural effusion. 23. Mitral valve calcification. 24. Status post abdominal aortogram and bilateral lower extremity runoff with left selective view. 25. Status post left peroneal artery atherectomy and balloon angioplasty. 26. Left anterior tibial artery angioplasty. 27. Severe peripheral vascular disease. 28. Left foot osteomyelitis and gangrene. 29. End-stage renal disease. 30. Deconditioning. 31. Gait dysfunction. 32. Left foot fifth digit gangrenous osteomyelitis. 33. Right upper extremity swelling, etiology undetermined. 34. [id number] oropharyngeal dysphagia with moderate risk for aspiration due to missing upper full dentures. Immediate cough with bite size and mixed consistency solid, liquid food with delayed swallowing initiation and slow oral transit. 1. Systemic inflammatory response syndrome. 2. Left foot toes osteomyelitis secondary to Enterobacter cloacae and Staphylococcus aureus, left foot toe diabetic ulceration and osteomyelitis. 3. Status post hypotension. 4. Hypertension. 5. Elevated erythrocyte sedimentation rate of 57. 6. Anemia of chronic disease. 7. Hypocalcemia. 9. Insulin-requiring diabetes mellitus with hemoglobin A1c of 6. 10. Hyperphosphatemia. 11. Elevated C-reactive protein. 12. Gait dysfunction. 13. Deconditioning. 14. End-stage renal disease, hemodialysis dependent via the left upper extremity AV fistula. 15. Proteinuria, glycosuria, microscopic hematuria, pyuria, bacteriuria. 1. Status post severe symptomatic hypotension. 2. Severe peripheral vascular disease with bilateral tibial occlusive disease, status post angiogram. status post left tibial artery angioplasty, left peroneal artery angioplasty. 3. End-stage renal disease, hemodialysis dependent. 4. Tachypnea. 5. Normocytic anemia with granulocytosis 6. Elevated erythrocyte sedimentation rate of 57. 7. Hypocalcemia, hyperphosphatemia. 8. Elevated C-reactive protein of greater than 15. 9. Secondary hyperparathyroidism. 10. Well-controlled insulin-requiring diabetes mellitus with hemoglobin A1c of 6. 11. Left foot and left lower extremity gram-negative hailey, gram-positive cocci, left foot, left lower extremity cellulitis, diabetic ulceration and possible osteomyelitis. 12. Status post abdominal aortogram, bilateral lower extremity runoff with non-selective view. 13. Status post left peroneal artery atherectomy and balloon angioplasty. 14. Left anterior tibial artery angioplasty. 15. Severe left lower extremity pedal occlusive disease. 16. Deconditioning. 17. Gait dysfunction. 18. Poor intravenous access. 19. Upper lobe extensive emphysema with right lower lobe consolidation with effusion. 20. Mitral valve calcification. 21. Left fifth proximal phalanx chronic fracture of the base. 22. Left foot third toe amputation. 23. Left ventricle ejection fraction of 55% with pulmonary hypertension and right ventricular systolic pressure of 54 mmHg. 24. Concentric left ventricular hypertrophy with grade 1 abnormal relaxation pattern. 25. Permanent pacemaker implant. 26. Moderately dilated right and left atrium. 27. Mild aortic valve sclerosis. 28. Moderate mitral annular calcification with mild mitral regurgitation. 29. Mild tricuspid regurgitation with moderate pulmonary hypertension with right ventricular systolic pressure of 54 mmHg. 30. Anemia of chronic disease. 31. Left fifth digit gangrene and diabetic ulceration and gangrene. 32. Chronic obstructive pulmonary disease. 33. Poor intravenous access. 34. Systemic inflammatory response syndrome. 35. Hypotension probably secondary to over hemodialysis. 36. Left fifth toe necrotic. 1. Severe symptomatic hypotension. 2. Left foot osteomyelitis, status post intravenous antibiotic treatment. 3. Tachypnea. 4. Hypoxemia. 5. Normocytic anemia. 6. Granulocytosis. 7. Elevated erythrocyte sedimentation rate of 57. 8. End-stage renal disease, hemodialysis dependent three times a week via left upper extremity arteriovenous fistula. 9. Hyperphosphatemia and secondary hyperparathyroidism. 10. Elevated C-reactive protein of greater than 15. 11. Questionable congestive heart failure with elevated BNP versus volume overload and fluid overload. 12. 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 13. Bilateral lower extremity peripheral arterial disease with bilateral tibial occlusive disease, left greater than the right. 14. Bilateral lower extremity venous stasis. 15. Questionable congestive heart failure with pulmonary vascular congestion and cardiomegaly. 16. Insulin-requiring diabetes mellitus. 17. Permanent pacemaker implant. 18. Left foot fifth toe diabetic ulceration versus osteomyelitis. 19. Left foot fifth digit gangrene and gangrenous ulcer. 20. Severe peripheral vascular disease. 21. Secondary hyperparathyroidism. 22. History of hypertension, chronic obstructive pulmonary disease. 23. History of questionable poor healing left foot diabetic ulceration and gangrenous diabetic ulceration and osteomyelitis. 24. Status post left foot third toe amputation. 25. Severe emphysema of the upper lobes and right lower lobe atelectasis, consolidation and small pleural effusion. 26. Mitral valve calcification. 27. Deconditioning. 28. Constipation. 1. History of left foot osteomyelitis, status post intravenous antibiotic treatment. 2. End-stage renal disease, hemodialysis dependent. 3. History of hypertension. 4. Persistent refractory hypotension, etiology undetermined. 5. Hypoxemia. 6. Normocytic anemia with granulocytosis. 7. Elevated BNP, etiology undetermined. 8. Elevated C-reactive protein. 9. Peripheral vascular disease of the lower extremity. 10. Bilateral lower extremity venous stasis. 11. Gait dysfunction. 12. Deconditioning. 13. Cardiomegaly with mild pulmonary vascular congestion. 14. History of dementia. 15. History of permanent pacemaker implant. 16. History of prostatic hypertrophy, history of hypertriglyceridemia, history of secondary hyperparathyroidism. 17. Insulin-requiring diabetes mellitus. 18. Sick sinus syndrome. 19. History of left foot toe amputation. 20. Diabetic foot ulcer. 21. Left upper extremity arteriovenous fistula. 22. Left hand finger amputation. 23. History of nicotine dependence. 24. Sepsis. 25. Pneumonia. 26. Pulmonary hypertension with moderate concentric left ventricular hypertrophy. 27. Moderate mitral annular calcification. 28. Moderate pulmonary hypertension with right ventricular systolic pressure of 53 mmHg. 29. History of respiratory failure. 30. Oropharyngeal candidiasis. 31. Macroglossia. 32. Hypovitaminosis D. 33. History of sepsis secondary to healthcare-associated pneumonia, epiglottitis, and oropharyngeal candidiasis. 34. Uncontrolled diabetes mellitus. 35. History of BiPAP-requiring respiratory failure. 36. Obesity. 37. Hyperprocalcitoninemia . 38. Sinusitis. 39. History of chronic obstructive pulmonary disease exacerbation. 40. 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 41. Pulmonary emphysema. PLAN: At this time, the patient has been ordered transfer out of the ICU. The patient's current consultation is with Cardiology, Infectious Disease, Nephrology, Podiatry, Interventional Radiology. Case referred to [facility] for discharge planning. servicer coin machines referred. TCU evaluation ordered. CURRENT MEDICATIONS: Clonidine 0.1 twice a day, Colace 100 three times a day, aspirin 81 mg daily, the patient's heparin drip has to be decided by Dr. Yong Womack regarding the duration, Humulin medium-dose sliding scale coverage before meals and at bedtime, meropenem 500 IV every 12 with the duration of which needs to be decided by the Infectious Disease. The patient is yet to be seen by the Infectious Disease today. The patient is to be continued on meropenem 500 IV every 12 as per Infectious Disease recommendation, Protonix 40 daily t.i.d. for GI prophylaxis, Tessalon 200 , Tylenol 650 p.o. suppository every 6 p.r.n., Xopenex nebulizer, Zofran 4 IV every 4. Chest PT, incentive spirometry, oxygen nasal cannula, out of bed to chair. Occupational, physical therapy ordered. The patient was seen by physical therapist yesterday in ICU, recommend continue physical therapy and subacute rehab. Overall prognosis is guarded. Condition improved. Dictated and electronically signed, not read. Oleg Whitman MD K[facility]ST[facility]
--- NOTE | 2018-01-29 11:42 | CP.PCM.PN ---
<Lico Matias - Last Filed: 01/29/18 13:24> Subjective - Date & Time of Evaluation Date of Evaluation: 01/29/18 Time of Evaluation: 13:24 - Subjective Subjective: Podiatry progress note for Dr. Gleason; 78M seen at bedside for gangrenous changes to left fifth digit. Patient is AAO x 3 resting comfortably in bed at time of visit and not in acute distress. Patient denies any new pedal complaints. Patient denies any overnight acute events. Patient denies any overnight F/N/V/C or SOB. Objective - Vital Signs/Intake and Output Vital Signs (last 24 hours): Temp Pulse Resp BP Pulse Ox 98.9 F 62 20 186/70 H 95 01/28/18 20:00 01/28/18 22:00 01/29/18 00:00 01/29/18 00:00 01/29/18 00:00 Intake and Output: 01/29/18 01/29/18 06:59 18:59 Intake Total 754 Output Total 1651 Balance -897 - Medications Medications: Current Medications Acetaminophen (Tylenol 325mg Tab) 650 mg PO Q6 PRN PRN Reason: TEMP>=99.5F Acetaminophen (Tylenol 650 Mg Supp) 650 mg RC Q6H PRN PRN Reason: TEMP>=99.5F Aspirin (Ecotrin) 81 mg PO DAILY [facility] Last Admin: 01/28/18 09:14 Dose: 81 mg Benzonatate (Tessalon Perles) 200 mg PO TID [facility] Last Admin: 01/28/18 17:12 Dose: 200 mg Clonidine HCl (Catapres) 0.1 mg PO BID [facility] Last Admin: 01/28/18 17:32 Dose: 0.1 mg Dextrose (Dextrose 50% Inj) 25 ml IV STAT PRN; Protocol PRN Reason: Hypoglycemia Protocol Docusate Sodium (Colace) 100 mg PO TID [facility] Last Admin: 01/28/18 17:33 Dose: 100 mg Dextrose (Dextrose 5% In Water 1000 Ml) 1,000 mls @ 0 mls/hr IV .Q0M PRN; Protocol PRN Reason: Hypoglycemia Protocol Meropenem 500 mg/ Sodium (Chloride) 50 mls @ 100 mls/hr IVPB Q12 [facility]; Protocol Stop: 01/30/18 22:01 Last Admin: 01/29/18 01:42 Dose: 100 mls/hr Heparin Sodium/Sodium Chloride (Heparin 13041 Units/250ml 1/2 Normal Saline) 25,000 units in 250 mls @ 21.339 mls/hr IV .[id number] PRN; Protocol PRN Reason: ADJUST RATE PER PROTOCOL Last Admin: 01/29/18 08:03 Dose: 15 units/kg/hr, 17.783 mls/hr Insulin Human Regular (Humulin R Med) 0 units SC [facility]; Protocol Last Admin: 01/29/18 08:46 Dose: Not Given Levalbuterol HCl (Xopenex) 0.63 mg IH [id number] [facility] Last Admin: 01/29/18 07:12 Dose: 0.63 mg Ondansetron HCl (Zofran Inj) 4 mg IVP Q4H PRN PRN Reason: Nausea/Vomiting Pantoprazole Sodium (Protonix Ec Tab) 40 mg PO 0600 [facility] Last Admin: 01/28/18 05:31 Dose: 40 mg - Labs Labs: 01/27/18 05:00 01/27/18 05:00 PT 13.3 SECONDS (9.4-12.5) H 01/23/18 11:00 INR 1.15 01/23/18 11:00 APTT 109.0 Seconds (25.1-36.5) H* 01/29/18 06:20 - Constitutional Appears: Well, Non-toxic, No Acute Distress - Head Exam Head Exam: ATRAUMATIC, NORMOCEPHALIC - Extremities Exam Additional comments: Left LE focused Exam: Vasc: DP/PT pulses are palpable 1/4, bed side doppler audiable monophasic interdigital arteries 1-3. Cap refill time < 3 sec in all digits, skin temperature gradient: warm to cool from proximal to distal. L 5th digit became dark black in color. Dark discoloration noted in all the digits up to the level of the distal met. shafts. Neuro: Protective sensation diminished. Gross sensation intact. DERM: Ulceration on the dorsum of the 5th digit measuring approximately 1.5 cm x 3 cm with wound bed completely necrotic, covered by dry black eschar, the whole left 5th toe becomes black in color, no active drainage, no malodor, no tunneling or tracking, no purulent drainage, No erythema noted at the dorsum of the left forefoot, no clinical signs of infection. An area of ecchymosis noted on the dorsum of the 1st, 2nd and 4th left digits which is covered partially by dry scab. color changes appears in all the digits (it become darker up to the level of the met. shafts) MSK: Pain on palpation of the digits particularly the 5th digit. Muscle power intact 5/5 in all groups. - Neurological Exam Neurological Exam: Alert, Awake, Oriented x3 - Psychiatric Exam Psychiatric exam: Normal Affect, Normal Mood Assessment and Plan - Assessment and Plan (Free Text) Assessment: 78 y/o M patient seen and evaluated at the bedside for gangrenous changes to l eft fifth digit Plan: Patient seen and evaluated at the bed side with attening Dr. Gleason Plan discussed with Dr. Gleason Chart, labs and vitals reviewed; Afebrile, absent leukocytosis Wound cx: Enterobacter Cloacae, Staph Aureus Continue abx per ID LE arterial duplex: BEATRIZ R 1.14. Bilateral sever tibial occlusive disease L > R B/L LE venous Duplex; No DVT. Left foot x-ray: Chronic fracture in the base of the 5th proximal phalanx. Distal phalanx erosions. Left toe dressed using betadine and DSD Spoke with the patient renal doctor for the arrangements of his dyalisis schedule before the surgery. Patient underwent successful revascularization of his Left LE Discussed with the patient all the surgical possibilities (Left 5th digit amputation vs left TMA). Benefits, risks, alternatives and possible complications for surgery discussed with the patient. Patient expressed verbal understanding. Spoke to the patient and his again today about the surgery. Patient accepts to do left 5th toe amputation. Patient scheduled for Left 5th toe amputation this 01/31/2018. Pending medical clearance for the surgery. Podiatry will continue to follow up the patient while in house. <Jose Gleason - Last Filed: 01/29/18 15:50> Objective - Vital Signs/Intake and Output Vital Signs (last 24 hours): Temp Pulse Resp BP Pulse Ox 98.9 F 69 20 173/68 H 95 01/28/18 20:00 01/29/18 12:41 01/29/18 00:00 01/29/18 12:41 01/29/18 00:00 Intake and Output: 01/29/18 01/29/18 06:59 18:59 Intake Total 754 600 Output Total 1651 Balance -897 600 - Medications Medications: Current Medications Acetaminophen (Tylenol 325mg Tab) 650 mg PO Q6 PRN PRN Reason: TEMP>=99.5F Acetaminophen (Tylenol 650 Mg Supp) 650 mg RC Q6H PRN PRN Reason: TEMP>=99.5F Aspirin (Ecotrin) 81 mg PO DAILY [facility] Last Admin: 01/29/18 12:42 Dose: 81 mg Benzonatate (Tessalon Perles) 200 mg PO TID [facility] Last Admin: 01/29/18 14:49 Dose: 200 mg Clonidine HCl (Catapres) 0.1 mg PO BID [facility] Last Admin: 01/29/18 12:41 Dose: 0.1 mg Dextrose (Dextrose 50% Inj) 25 ml IV STAT PRN; Protocol PRN Reason: Hypoglycemia Protocol Docusate Sodium (Colace) 100 mg PO TID [facility] Last Admin: 01/29/18 14:48 Dose: 100 mg Dextrose (Dextrose 5% In Water 1000 Ml) 1,000 mls @ 0 mls/hr IV .Q0M PRN; Protocol PRN Reason: Hypoglycemia Protocol Meropenem 500 mg/ Sodium (Chloride) 50 mls @ 100 mls/hr IVPB Q12 [facility]; Protocol Stop: 01/30/18 22:01 Last Admin: 01/29/18 12:49 Dose: 100 mls/hr Heparin Sodium/Sodium Chloride (Heparin 89867 Units/250ml 1/2 Normal Saline) 25,000 units in 250 mls @ 21.339 mls/hr IV .[id number] PRN; Protocol PRN Reason: ADJUST RATE PER PROTOCOL Last Admin: 01/29/18 08:03 Dose: 15 units/kg/hr, 17.783 mls/hr Insulin Human Regular (Humulin R Med) 0 units SC ACHS [facility]; Protocol Last Admin: 01/29/18 14:43 Dose: Not Given Levalbuterol HCl (Xopenex) 0.63 mg IH [id number] [facility] Last Admin: 01/29/18 07:12 Dose: 0.63 mg Ondansetron HCl (Zofran Inj) 4 mg IVP Q4H PRN PRN Reason: Nausea/Vomiting Pantoprazole Sodium (Protonix Ec Tab) 40 mg PO 0600 [facility] Last Admin: 01/29/18 12:51 Dose: Not Given - Labs Labs: 01/27/18 05:00 01/27/18 05:00 PT 13.3 SECONDS (9.4-12.5) H 01/23/18 11:00 INR 1.15 01/23/18 11:00 APTT 109.0 Seconds (25.1-36.5) H* 01/29/18 06:20 Attending/Attestation - Attestation I have personally seen and examined this patient.: Yes I have fully participated in the care of the patient.: Yes I have reviewed all pertinent clinical information, including history, physical exam and plan: Yes
[2018-01-29] MEDS: Pantoprazole 40 mg EC Tab PO SCH (12:51)
--- NOTE | 2018-01-29 13:01 | PN ---
Copied To: Yong Duran MD Attending MD: Yong Duran MD DATE: 01/29/2018 CARDIOLOGY FOLLOWUP SUBJECTIVE: The patient is resting comfortably. PHYSICAL EXAMINATION: VITAL SIGNS: The blood pressure varies from 130 to 180 systolic, heart rate is in the 60s. NECK: Negative JVD. LUNGS: No rales noted. HEART: Reveals S1, S2. EXTREMITIES: Without change. LABORATORY DATA: Hemoglobin is 8.9. Glucose is 134. IMPRESSION: 1. End-stage renal disease. 2. No resolution of hypotension. 3. Status post percutaneous transluminal angioplasty of the distal lower extremities. 4. Diabetes mellitus. 5. Moderate pulmonary hypertension. 6. Peripheral vascular disease. Given these findings, the patient is hemodynamically stable. We will continue to monitor blood pressure. Yong Duran MD
--- NOTE | 2018-01-29 13:54 | PN ---
DATE: 01/29/2018 SUBJECTIVE: The patient is seen lying in bed. He is awake, he is alert. He complains of some pain in his foot. He denies any chest pain. Denies any shortness of breath. PHYSICAL EXAMINATION: GENERAL: Obese elderly male, lying in bed. VITAL SIGNS: Blood pressure 186/70, heart rate 62, respiratory rate 20, temperature 98.9. HEENT: Normocephalic, atraumatic, positive pallor. NECK: Supple, no JVD. LUNGS: Bilateral equal air entry, bilateral equal expansion, no rales, no rhonchi. CARDIAC: S1 and S2, regular rate and rhythm, no murmur, no rub. ABDOMEN: Obese, distended, soft, nontender, bowel sounds present. EXTREMITIES: Dressing of the right foot, no edema. INTAKE AND OUTPUT: Not charted. LABORATORY DATA: WBC 5.5. No new labs. MEDICATIONS: List reviewed. Catapres, Colace, aspirin, heparin, meropenem, Protonix, Tylenol, and Zofran. ASSESSMENT AND PLAN: 1. Status post sepsis/hypotension. 2. Gmc-[id number]-ewdoieqdx diabetes mellitus. 3. Hypertension. 4. End-stage renal disease. 5. Anemia of chronic kidney disease. PLAN: 1. Stable dialysis yesterday. 2. Resolved hypotension. 3. Continue antibiotics. 4. Physical therapy. 5. Wound care. Yadira Fox MD
[2018-01-29] MEDS ORDERED: Morphine 2 mg/ml ISec IVP ONE (19:30)
--- NOTE | 2018-01-29 20:34 | CP.PCM.PN ---
Subjective - Date & Time of Evaluation Date of Evaluation: 01/29/18 Time of Evaluation: 11:05 - Subjective Subjective: No fevers, not in distress, no left foot pain. Objective - Vital Signs/Intake and Output Vital Signs (last 24 hours): Temp Pulse Resp BP Pulse Ox 98.9 F 60 20 135/54 L 92 L 01/28/18 20:00 01/29/18 18:26 01/29/18 00:00 01/29/18 18:26 01/29/18 16:04 Intake and Output: 01/29/18 01/30/18 18:59 06:59 Intake Total 1100 480 Balance 1100 480 - Medications Medications: Current Medications Acetaminophen (Tylenol 325mg Tab) 650 mg PO Q6 PRN PRN Reason: TEMP>=99.5F Acetaminophen (Tylenol 650 Mg Supp) 650 mg RC Q6H PRN PRN Reason: TEMP>=99.5F Aspirin (Ecotrin) 81 mg PO DAILY PENDING SALE TO [facility] Last Admin: 01/29/18 12:42 Dose: 81 mg Benzonatate (Tessalon Perles) 200 mg PO TID PENDING SALE TO [facility] Last Admin: 01/29/18 18:23 Dose: 200 mg Clonidine HCl (Catapres) 0.1 mg PO BID PENDING SALE TO [facility] Last Admin: 01/29/18 18:26 Dose: Not Given Dextrose (Dextrose 50% Inj) 25 ml IV STAT PRN; Protocol PRN Reason: Hypoglycemia Protocol Docusate Sodium (Colace) 100 mg PO TID PENDING SALE TO [facility] Last Admin: 01/29/18 18:23 Dose: 100 mg Dextrose (Dextrose 5% In Water 1000 Ml) 1,000 mls @ 0 mls/hr IV .Q0M PRN; Protocol PRN Reason: Hypoglycemia Protocol Meropenem 500 mg/ Sodium (Chloride) 50 mls @ 100 mls/hr IVPB Q12 JERE; Protocol Stop: 01/30/18 22:01 Last Admin: 01/29/18 12:49 Dose: 100 mls/hr Heparin Sodium/Sodium Chloride (Heparin 47050 Units/250ml 1/2 Normal Saline) 25,000 units in 250 mls @ 21.339 mls/hr IV .[id number] PRN; Protocol PRN Reason: ADJUST RATE PER PROTOCOL Last Admin: 01/29/18 18:43 Dose: 10 units/kg/hr, 11.855 mls/hr Insulin Human Regular (Humulin R Med) 0 units SC ACHS PENDING SALE TO [facility]; Protocol Last Admin: 01/29/18 16:37 Dose: Not Given Levalbuterol HCl (Xopenex) 0.63 mg IH [id number] PENDING SALE TO [facility] Last Admin: 01/29/18 07:12 Dose: 0.63 mg Ondansetron HCl (Zofran Inj) 4 mg IVP Q4H PRN PRN Reason: Nausea/Vomiting Pantoprazole Sodium (Protonix Ec Tab) 40 mg PO 0600 PENDING SALE TO [facility] Last Admin: 01/28/18 05:31 Dose: 40 mg - Labs Labs: 01/27/18 05:00 01/27/18 05:00 PT 13.3 SECONDS (9.4-12.5) H 01/23/18 11:00 INR 1.15 01/23/18 11:00 APTT 89.4 Seconds (25.1-36.5) H 01/29/18 17:30 - Constitutional Appears: Chronically Ill - Head Exam Head Exam: NORMAL INSPECTION - Respiratory Exam Respiratory Exam: Decreased Breath Sounds - Cardiovascular Exam Cardiovascular Exam: +S1, +S2 - GI/Abdominal Exam GI & Abdominal Exam: Soft. absent: Tenderness Assessment and Plan - Assessment and Plan (Free Text) Plan: Assessment consider dry gangrene of the left foot toes with MSSA and Enterobacter in this patient with peripheral arterial disease history of severe sepsis due to left foot cellulitis with left 5th toe gangrene and clinical osteomyelitis history of severe sepsis due to healthcare-associated pneumonia as well as epiglottitis with oropahryngeal candidiasis ESRD on HD DM HTN morbid obesity with BMI 41 dyslipidemia COPD cataracts chronic low back pain Plan continue Merrem day 6 and follow up further plans for revascularization and further plans of Podiatry will continue to monitor clinically discussed with Dr. Whitman
--- NOTE | 2018-01-29 23:35 | PN ---
DATE: 01/29/2018 SUBJECTIVE: The patient is seen in room 565, bed 1. The patient is seen sitting up in the bed. Patient is alert, awake, responsive. Overnight nurse's notes were reviewed. The patient was found to be confused and cooperative, refused IV insertion. The patient refused vital signs. The patient has intermittent episodes of alert, awake, oriented x2 and 3. PHYSICAL EXAMINATION: VITAL SIGNS: T-max is 98.9; heart rate 60, 70, 79; blood pressure is now 133/61, 186/70, 173/68, 135/64; respirations 20; O2 sat 92%, 95%. HEENT: Head examination, normocephalic, atraumatic. HEENT examination shows pinkish pale conjunctivae. Anicteric sclerae. No oropharyngeal lesion. No neck rigidity. CHEST: Kyphosis. Positive right upper chest pacemaker noted. Positive kyphosis noted. CARDIOVASCULAR: S1, S2, regular rhythm. Positive systolic murmur at left sternal border, left second intercostal space, right second intercostal space. ABDOMEN: Soft, protuberant. Positive bowel sound. GENITALIA: Male. EXTREMITIES: Positive left upper extremity AV fistula, positive right upper extremity IV line. Lower extremity examination shows positive dressing of the left foot, positive swelling of the lower extremity, trace swelling of the lower extremity. MUSCULOSKELETAL: Examination shows a body mass index of greater than 41. NEUROLOGIC: The patient is alert, awake, responsive, does not appear to be in any distress. DIAGNOSTICS: None from 01/29. Fingerstick blood sugar 141, 135, 134, 124, 111, 93, 143, 221. Left foot calf cultures, Enterobacter cloacae and Staphylococcus aureus. The patient seen by Cardiology, Podiatry and Nephrology. Their recommendations noted. IMPRESSION: 1. Status post hypotension. 2. Left foot Enterobacter cloacae and Staphylococcus aureus diabetic foot ulceration versus osteomyelitis versus diabetic foot ulceration. 3. Left fifth toe gangrenous diabetic foot ulceration. 4. Peripheral vascular disease. 5. Bilateral lower extremity peripheral vascular disease with bilateral severe tibial occlusive disease, left more than the right. 6. Chronic fracture of the base of the fifth proximal phalanx with distal phalanx erosion. 7. Possible hypotensive versus questionable septic shock with hypotension. 8. End-stage renal disease, hemodialysis dependent three times a week via the left upper extremity AV fistula. 9. Peripheral vascular disease. 10. Transient hypoxemia. 11. Normocytic anemia. 12. Elevated erythrocyte sedimentation rate. 13. Granulocytosis. 14. Elevated C-reactive protein of greater than 15. 15. Secondary hyperparathyroidism. 16. Insulin-requiring diabetes mellitus with hemoglobin A1c of 6. 17. Proteinuria, glycosuria, microscopic hematuria, pyuria, bacteriuria. 18. Status post successful left peroneal artery atherectomy and balloon angioplasty and successful left anterior tibial artery angioplasty with severe left pedal occlusive disease. 19. Concentric left ventricular hypertrophy with grade 1 abnormal relaxation pattern. 20. Moderately dilated left and right atrium. 21. Permanent pacemaker implant. 22. Moderate mitral annular calcification. 23. Moderate pulmonary hypertension with right ventricular systolic pressure of 54 mmHg. 24. Gait dysfunction. 25. Deconditioning. 26. Constipation. 1. Status post hypotension. 2. End-stage renal disease, hemodialysis dependent. 3. Severe peripheral vascular disease, status post angioplasty. 4. Left foot diabetic nonhealing ulcer with history of osteomyelitis. 5. Status post hypotension versus shock. 6. Systemic inflammatory response syndrome. 7. Methicillin-sensitive Staphylococcus aureus and Enterobacter cloacae, dry gangrene of the left foot toes. 8. Deconditioning. 9. Gait dysfunction. 10. Moderate oropharyngeal dysphagia with moderate risk for aspiration. 11. Insulin-requiring diabetes mellitus with hemoglobin A1c of 6. 12. Pulmonary hypertension with right ventricular systolic pressure of 54 mmHg. 13. Left ventricular hypertrophy of 56%. 14. Grade 1 abnormal relaxation pattern. 15. Moderately dilated left and right atrium. 16. Mildly sclerotic aortic valve. 17. Moderate mitral annular calcification. 18. Mild tricuspid and mild mitral regurgitation. 19. Left peroneal artery atherectomy and balloon angioplasty. 20. Left anterior tibial artery angioplasty. 1. Systemic inflammatory response syndrome with hypotension. 2. Severe peripheral vascular disease. 3. Left fifth toe osteomyelitis with Enterobacter cloacae and Staphylococcus aureus on left fifth toe osteomyelitis. 4. Status post hypotension. 5. Tachypnea. 6. Hypoxemia. 7. Normocytic anemia with granulocytosis and elevated C-reactive protein. 8. End-stage renal disease, hemodialysis dependent three times a week via the left upper extremity arteriovenous fistula. 9. Elevated C-reactive protein. 10. Insulin-requiring diabetes mellitus with hemoglobin A1c of 6. 11. Elevated C-reactive protein of greater than 15. 12. Diastolic right-sided congestive heart failure with elevated right ventricular systolic pressure of 54 mmHg. 13. Left ventricular ejection fraction of 56%. 14. Grade 1 abnormal relaxation pattern. 15. Moderately dilated left and right atrium. 16. Mildly sclerotic aortic valve. 17. Moderate mitral annular calcification. 18. Mild mitral regurgitation. 19. Mild tricuspid regurgitation with moderate pulmonary hypertension and right ventricular systolic pressure of 54 mmHg with right-sided diastolic congestive heart failure. 20. Left foot base of the fifth proximal phalanx chronic fracture. 21. Extensive emphysema. 22. Right lower lobe consolidation, atelectasis with small pleural effusion. 23. Mitral valve calcification. 24. Status post abdominal aortogram and bilateral lower extremity runoff with left selective view. 25. Status post left peroneal artery atherectomy and balloon angioplasty. 26. Left anterior tibial artery angioplasty. 27. Severe peripheral vascular disease. 28. Left foot osteomyelitis and gangrene. 29. End-stage renal disease. 30. Deconditioning. 31. Gait dysfunction. 32. Left foot fifth digit gangrenous osteomyelitis. 33. Right upper extremity swelling, etiology undetermined. 34. [id number] oropharyngeal dysphagia with moderate risk for aspiration due to missing upper full dentures. Immediate cough with bite size and mixed consistency solid, liquid food with delayed swallowing initiation and slow oral transit. 1. Systemic inflammatory response syndrome. 2. Left foot toes osteomyelitis secondary to Enterobacter cloacae and Staphylococcus aureus, left foot toe diabetic ulceration and osteomyelitis. 3. Status post hypotension. 4. Hypertension. 5. Elevated erythrocyte sedimentation rate of 57. 6. Anemia of chronic disease. 7. Hypocalcemia. 9. Insulin-requiring diabetes mellitus with hemoglobin A1c of 6. 10. Hyperphosphatemia. 11. Elevated C-reactive protein. 12. Gait dysfunction. 13. Deconditioning. 14. End-stage renal disease, hemodialysis dependent via the left upper extremity AV fistula. 15. Proteinuria, glycosuria, microscopic hematuria, pyuria, bacteriuria. 1. Status post severe symptomatic hypotension. 2. Severe peripheral vascular disease with bilateral tibial occlusive disease, status post angiogram. status post left tibial artery angioplasty, left peroneal artery angioplasty. 3. End-stage renal disease, hemodialysis dependent. 4. Tachypnea. 5. Normocytic anemia with granulocytosis 6. Elevated erythrocyte sedimentation rate of 57. 7. Hypocalcemia, hyperphosphatemia. 8. Elevated C-reactive protein of greater than 15. 9. Secondary hyperparathyroidism. 10. Well-controlled insulin-requiring diabetes mellitus with hemoglobin A1c of 6. 11. Left foot and left lower extremity gram-negative hailey, gram-positive cocci, left foot, left lower extremity cellulitis, diabetic ulceration and possible osteomyelitis. 12. Status post abdominal aortogram, bilateral lower extremity runoff with non-selective view. 13. Status post left peroneal artery atherectomy and balloon angioplasty. 14. Left anterior tibial artery angioplasty. 15. Severe left lower extremity pedal occlusive disease. 16. Deconditioning. 17. Gait dysfunction. 18. Poor intravenous access. 19. Upper lobe extensive emphysema with right lower lobe consolidation with effusion. 20. Mitral valve calcification. 21. Left fifth proximal phalanx chronic fracture of the base. 22. Left foot third toe amputation. 23. Left ventricle ejection fraction of 55% with pulmonary hypertension and right ventricular systolic pressure of 54 mmHg. 24. Concentric left ventricular hypertrophy with grade 1 abnormal relaxation pattern. 25. Permanent pacemaker implant. 26. Moderately dilated right and left atrium. 27. Mild aortic valve sclerosis. 28. Moderate mitral annular calcification with mild mitral regurgitation. 29. Mild tricuspid regurgitation with moderate pulmonary hypertension with right ventricular systolic pressure of 54 mmHg. 30. Anemia of chronic disease. 31. Left fifth digit gangrene and diabetic ulceration and gangrene. 32. Chronic obstructive pulmonary disease. 33. Poor intravenous access. 34. Systemic inflammatory response syndrome. 35. Hypotension probably secondary to over hemodialysis. 36. Left fifth toe necrotic. 1. Severe symptomatic hypotension. 2. Left foot osteomyelitis, status post intravenous antibiotic treatment. 3. Tachypnea. 4. Hypoxemia. 5. Normocytic anemia. 6. Granulocytosis. 7. Elevated erythrocyte sedimentation rate of 57. 8. End-stage renal disease, hemodialysis dependent three times a week via left upper extremity arteriovenous fistula. 9. Hyperphosphatemia and secondary hyperparathyroidism. 10. Elevated C-reactive protein of greater than 15. 11. Questionable congestive heart failure with elevated BNP versus volume overload and fluid overload. 12. 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 13. Bilateral lower extremity peripheral arterial disease with bilateral tibial occlusive disease, left greater than the right. 14. Bilateral lower extremity venous stasis. 15. Questionable congestive heart failure with pulmonary vascular congestion and cardiomegaly. 16. Insulin-requiring diabetes mellitus. 17. Permanent pacemaker implant. 18. Left foot fifth toe diabetic ulceration versus osteomyelitis. 19. Left foot fifth digit gangrene and gangrenous ulcer. 20. Severe peripheral vascular disease. 21. Secondary hyperparathyroidism. 22. History of hypertension, chronic obstructive pulmonary disease. 23. History of questionable poor healing left foot diabetic ulceration and gangrenous diabetic ulceration and osteomyelitis. 24. Status post left foot third toe amputation. 25. Severe emphysema of the upper lobes and right lower lobe atelectasis, consolidation and small pleural effusion. 26. Mitral valve calcification. 27. Deconditioning. 28. Constipation. 1. History of left foot osteomyelitis, status post intravenous antibiotic treatment. 2. End-stage renal disease, hemodialysis dependent. 3. History of hypertension. 4. Persistent refractory hypotension, etiology undetermined. 5. Hypoxemia. 6. Normocytic anemia with granulocytosis. 7. Elevated BNP, etiology undetermined. 8. Elevated C-reactive protein. 9. Peripheral vascular disease of the lower extremity. 10. Bilateral lower extremity venous stasis. 11. Gait dysfunction. 12. Deconditioning. 13. Cardiomegaly with mild pulmonary vascular congestion. 14. History of dementia. 15. History of permanent pacemaker implant. 16. History of prostatic hypertrophy, history of hypertriglyceridemia, history of secondary hyperparathyroidism. 17. Insulin-requiring diabetes mellitus. 18. Sick sinus syndrome. 19. History of left foot toe amputation. 20. Diabetic foot ulcer. 21. Left upper extremity arteriovenous fistula. 22. Left hand finger amputation. 23. History of nicotine dependence. 24. Sepsis. 25. Pneumonia. 26. Pulmonary hypertension with moderate concentric left ventricular hypertrophy. 27. Moderate mitral annular calcification. 28. Moderate pulmonary hypertension with right ventricular systolic pressure of 53 mmHg. 29. History of respiratory failure. 30. Oropharyngeal candidiasis. 31. Macroglossia. 32. Hypovitaminosis D. 33. History of sepsis secondary to healthcare-associated pneumonia, epiglottitis, and oropharyngeal candidiasis. 34. Uncontrolled diabetes mellitus. 35. History of BiPAP-requiring respiratory failure. 36. Obesity. 37. Hyperprocalcitoninemia . 38. Sinusitis. 39. History of chronic obstructive pulmonary disease exacerbation. 40. 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 41. Pulmonary emphysema. PLAN: At this time, the patient seen by Podiatry, recommend either left foot left toe amputation versus left transmetatarsal amputation, but the patient and the patient's family chose left foot fifth toe amputation. The patient's family has decided to proceed with left fifth toe amputation for 01/31. The patient will be continued to be followed by Dr. Duran from Cardiology for preop clearance, Infectious Disease, Nephrology, Podiatry, Interventional Radiology. Referral to social media senior associate, health educator, TCU ordered. Current medications are clonidine 0.1 mg twice a day, Colace 100 mg three times a day, Ecotrin 81 mg daily, heparin drip as per Dr. Yong Womack's order, Humulin medium-dose sliding scale coverage before meals and at bedtime, meropenem 500 IV every 12, Protonix 40 mg daily, Tessalon Perles 200 three times a day, Tylenol 650 p.o. suppository every 6 p.r.n., Xopenex 0.63 mg every 6 hours [id number] nebulizer, Zofran 4 IV every 4 p.r.n., chest PT, oxygen nasal cannula. Out of bed, hemodialysis, occupational therapy, physical therapy ordered. At present, the patient's further management will be dependent upon the patient's clinical condition, hemodynamic status and as per the patient's response to therapeutic intervention, as per the patient's diagnostic test results. At present, patient is at least [id number] risk for surgical intervention secondary to multiple comorbidities and complicated medical condition. Dictated and electronically signed, not read. Oleg Whitman MD MTDD
[2018-01-30] MEDS: Levalbuterol 0.63 MG/3 ML Inhal Soln UD IH SCH ×4 (02:19→20:05)
[2018-01-30] MEDS: Pantoprazole 40 mg EC Tab PO SCH ×2 (06:00→06:22)
[2018-01-30 07:04] LABS: INR 1.1; PARTIAL THROMBOPLASTIN TIME 37.7 Seconds (25.1-36.5); PROTHROMBIN TIME 12.7 SECONDS (9.4-12.5)
[2018-01-30 07:05] LABS: ALB/GLOB RATIO 1.1 (1.1-1.8); ALBUMIN 3.3 g/dL (3.0-4.8); BASO # 0.02 K/mm3 (0.0-2.0); BASO % 0.3 % (0.0-3.0); BILIRUBIN,DIRECT 0.5 mg/dL (0.0-0.4); CALCIUM 8.5 mg/dL (8.4-10.5); EOS # 0.1 (0.0-0.7); EOS % 2.4 % (1.5-5.0); GRAN # 3.45 (1.4-6.5); GRAN % 59.9 % (50.0-68.0); HEMOGLOBIN 8.3 g/dL (14.0-18.0); LYMPH # 1.5 (1.2-3.4); LYMPH % 25.2 % (22.0-35.0); MEAN CORPUSCULAR HGB CONC 30.6 g/dl (31.0-37.0); MEAN PLATELET VOLUME 10.2 fl (7.0-11.0); MONO # 0.7 (0.1-0.6); MONO % 12.2 % (1.0-6.0); RBC 3.19 10^6/uL (3.5-6.1); RED CELL DISTRIBUTION WIDTH 17.6 % (11.5-14.5); WHITE BLOOD COUNT 5.8 10^3/ul (4.5-11.0)
[2018-01-30] MEDS: Insulin Reg-MEDIUM-Coverage SC SCH ×3 (08:32→16:10)
--- NOTE | 2018-01-30 08:51 | CT ---
Date of service: 01/30/2018 PROCEDURE: CT HEAD WITHOUT CONTRAST. HISTORY: AMS COMPARISON: 01/24/2018 CT head TECHNIQUE: Axial computed tomography images were obtained through the head/brain without intravenous contrast. Supplemental Coronal and Sagittal projectections created and reviewed. Radiation dose: Total exam DLP = 948.57 mGy-cm. This CT exam was performed using one or more of the following dose reduction techniques: Automated exposure control, adjustment of the mA and/or kV according to patient size, and/or use of iterative reconstruction technique. FINDINGS: HEMORRHAGE: No intracranial hemorrhage. BRAIN: No mass effect or edema. Cortical and cerebellar atrophy, periventricular small vessel disease. VENTRICLES: Unremarkable. No hydrocephalus. CALVARIUM: Unremarkable. PARANASAL SINUSES: Chronic ethmoid and maxillary sinus disease. MASTOID AIR CELLS: Unremarkable as visualized. No inflammatory changes. OTHER FINDINGS: None. IMPRESSION: No acute intracranial abnormalities. No significant findings to account for the clinical presentation. No significant interval change compared to the prior examination(s). Concordant results (preliminary interpretation) provided by [facility]. Procedure Completed: 19:43 Preliminary ([facility]) Report: Dictated and Authenticated: 19:57 Final Interpretation: 08:29. January 30, 2018.
--- NOTE | 2018-01-30 10:19 | CP.PCM.PN ---
<Lico Matias - Last Filed: 01/30/18 15:29> Subjective - Date & Time of Evaluation Date of Evaluation: 01/30/18 Time of Evaluation: 15:29 - Subjective Subjective: Podiatry progress note for Dr. Maher; 78M seen at bedside for gangrenous changes to left fifth digit. Patient is AAO x 3 and resting in bed at time of visit and not in acute distress. Patient was seen immediately after he came back from the dialysis session. Patient states that he has episodes of pain in his left 5th toe since last night Patient denies any new pedal complaints. Patient denies any overnight acute events. Patient de nies any overnight F/N/V/C or SOB. Objective - Vital Signs/Intake and Output Vital Signs (last 24 hours): Temp Pulse Resp BP Pulse Ox 97.8 F 69 20 177/74 H 93 L 01/30/18 06:00 01/30/18 06:00 01/30/18 06:00 01/30/18 06:00 01/30/18 06:00 Intake and Output: 01/30/18 01/30/18 06:59 18:59 Intake Total 924 Output Total 1200 Balance -276 - Medications Medications: Current Medications Acetaminophen (Tylenol 325mg Tab) 650 mg PO Q6 PRN PRN Reason: TEMP>=99.5F Last Admin: 01/29/18 21:21 Dose: 650 mg Acetaminophen (Tylenol 650 Mg Supp) 650 mg RC Q6H PRN PRN Reason: TEMP>=99.5F Aspirin (Ecotrin) 81 mg PO DAILY [facility] Last Admin: 01/29/18 12:42 Dose: 81 mg Benzonatate (Tessalon Perles) 200 mg PO TID [facility] Last Admin: 01/29/18 18:23 Dose: 200 mg Clonidine HCl (Catapres) 0.1 mg PO BID [facility] Last Admin: 01/29/18 18:26 Dose: Not Given Dextrose (Dextrose 50% Inj) 25 ml IV STAT PRN; Protocol PRN Reason: Hypoglycemia Protocol Docusate Sodium (Colace) 100 mg PO TID [facility] Last Admin: 01/29/18 18:23 Dose: 100 mg Dextrose (Dextrose 5% In Water 1000 Ml) 1,000 mls @ 0 mls/hr IV .Q0M PRN; P rotocol PRN Reason: Hypoglycemia Protocol Meropenem 500 mg/ Sodium (Chloride) 50 mls @ 100 mls/hr IVPB Q12 [facility]; Protocol Stop: 01/30/18 22:01 Last Admin: 01/29/18 12:49 Dose: 100 mls/hr Heparin Sodium/Sodium Chloride (Heparin 10779 Units/250ml 1/2 Normal Saline) 25,000 units in 250 mls @ 21.339 mls/hr IV .[id number] PRN; Protocol PRN Reason: ADJUST RATE PER PROTOCOL Last Admin: 01/29/18 18:43 Dose: 10 units/kg/hr, 11.855 mls/hr Insulin Human Regular (Humulin R Med) 0 units SC ACHS [facility]; Protocol Last Admin: 01/30/18 08:32 Dose: Not Given Levalbuterol HCl (Xopenex) 0.63 mg IH [id number] [facility] Last Admin: 01/30/18 07:24 Dose: Not Given Ondansetron HCl (Zofran Inj) 4 mg IVP Q4H PRN PRN Reason: Nausea/Vomiting Pantoprazole Sodium (Protonix Ec Tab) 40 mg PO 0600 [facility] Last Admin: 01/30/18 06:22 Dose: 40 mg - Labs Labs: 01/30/18 06:15 01/30/18 06:15 PT 12.7 SECONDS (9.4-12.5) H 01/30/18 06:15 INR 1.10 01/30/18 06:15 APTT 37.7 Seconds (25.1-36.5) H 01/30/18 06:15 - Constitutional Appears: Non-toxic, No Acute Distress - Head Exam Head Exam: ATRAUMATIC, NORMOCEPHALIC - Extremities Exam Additional comments: Left LE focused Exam: Vasc: DP/PT pulses are palpable 1/4. Cap refill time < 3 sec in all digits, skin temperature gradient: warm to cool from proximal to distal. L 5th digit became dark black in color. Neuro: Protective sensation diminished. Gross sensation intact. DERM: Ulceration on the dorsum of the 5th digit measuring approximately 1.5 cm x 3 cm with wound bed completely necrotic, covered by dry black eschar, the whole left 5th toe becomes black in color, no active drainage, no malodor, no tunnelin g or tracking, no purulent drainage, No erythema noted at the dorsum of the left forefoot, no clinical signs of infection. Hard, dry scabs noted on the dorsum of the 1st, 2nd and 4th left digits . color changes appears in all the digits (it become darker up to the level of the met. shafts) MSK: Pain on palpation of the digits particularly the 5th digit. Pain with the left 5th digit ROM. Muscle power intact 5/5 in all groups. - Neurological Exam Neurological Exam: Alert, Awake, Oriented x3 - Psychiatric Exam Psychiatric exam: Normal Affect Assessment and Plan - Assessment and Plan (Free Text) Assessment: 78 y/o M patient seen and evaluated at the bedside for gangrenous changes to left fifth digit Plan: Patient seen and evaluated at the bed side with attening Dr. Hilton. Plan discussed with Dr. Hilton. Chart, labs and vitals reviewed; Afebrile, absent leukocytosis. Wound cx: Enterobacter Cloacae, Staph Aureus. Continue abx per ID. LE arterial duplex: BEATRIZ R 1.14. Bilateral sever tibial occlusive disease L > R. B/L LE venous Duplex; No DVT. Left foot x-ray: Chronic fracture in the base of the 5th proximal phalanx. Distal phalanx erosions. Left toe dressed using betadine and DSD. Patient is going for dialysis today. Spoke to Dr. Fox who is the atient renal doctor. She cleared him for surgery. Patient underwent successful revascularization of his Left LE (01/24). Patient scheduled for Left 5th toe amputation tomorrow 01/31/2018. Podiatry will continue to follow up the patient while in house. <Lizbeth Maher - Last Filed: 02/03/18 16:58> Objective - Vital Signs/Intake and Output Vital Signs (last 24 hours): Temp Pulse Resp BP Pulse Ox 98 F 66 20 128/56 L 94 L 02/03/18 14:24 02/03/18 14:24 02/03/18 14:24 02/03/18 14:24 02/03/18 14:24 Intake and Output: 02/03/18 02/03/18 06:59 18:59 Intake Total 300 240 Balance 300 240 - Medications Medications: Current Medications Acetaminophen (Tylenol 325mg Tab) 650 mg PO Q6 PRN PRN Reason: TEMP>=99.5F Last Admin: 01/29/18 21:21 Dose: 650 mg Acetaminophen (Tylenol 650 Mg Supp) 650 mg RC Q6H PRN PRN Reason: TEMP>=99.5F Amlodipine Besylate (Norvasc) 10 mg PO DAILY [facility] Last Admin: 02/03/18 10:31 Dose: 10 mg Aspirin (Aspirin) 325 mg PO DAILY [facility] Last Admin: 02/02/18 15:56 Dose: Not Given Atorvastatin Calcium (Lipitor) 40 mg PO [facility] Last Admin: 02/02/18 21:49 Dose: 40 mg Benzonatate (Tessalon Perles) 200 mg PO TID [facility] Last Admin: 02/03/18 15:29 Dose: 200 mg Calcium Acetate (Phoslo) 667 mg PO TID [facility] Last Admin: 02/03/18 15:29 Dose: 667 mg Carvedilol (Coreg) 25 mg PO BID [facility] Last Admin: 02/03/18 10:32 Dose: 25 mg Darbepoetin Preet (Aranesp) 40 mcg IVP ONCE ONE Stop: 02/04/18 06:01 Dextrose (Dextrose 50% Inj) 25 ml IV STAT PRN; Protocol PRN Reason: Hypoglycemia Protocol Docusate Sodium (Colace) 100 mg PO TID [facility] Last Admin: 02/03/18 15:29 Dose: 100 mg Donepezil HCl (Aricept) 10 mg PO [facility] Last Admin: 02/02/18 21:48 Dose: 10 mg Doxazosin Mesylate (Cardura) 2 mg PO BID [facility] Last Admin: 02/03/18 10:32 Dose: 2 mg Gabapentin (Neurontin) 100 mg PO [facility]; Protocol Last Admin: 02/02/18 21:48 Dose: 100 mg Hydralazine HCl (Apresoline) 100 mg PO BID [facility] Last Admin: 02/03/18 10:30 Dose: 100 mg Dextrose (Dextrose 5% In Water 1000 Ml) 1,000 mls @ 0 mls/hr IV .Q0M PRN; Protocol PRN Reason: Hypoglycemia Protocol Meropenem 250 mg/ Sodium (Chloride) 100 mls @ 100 mls/hr IVPB Q12H [facility]; Protocol Stop: 02/08/18 19:31 Last Admin: 02/03/18 10:34 Dose: 100 mls/hr Insulin Human Regular (Humulin R Med) 0 units SC ACHS [facility]; Protocol Last Admin: 02/03/18 10:32 Dose: 1 unit Levalbuterol HCl (Xopenex) 0.63 mg IH [id number] [facility] Last Admin: 02/03/18 16:27 Dose: 0.63 mg Lidocaine (Lidoderm) 1 ea TD DAILY [facility] Last Admin: 02/03/18 10:34 Dose: 1 ea Losartan Potassium (Cozaar) 100 mg PO DAILY [facility] Last Admin: 02/03/18 10:31 Dose: 100 mg Memantine (Namenda) 5 mg PO BID [facility] Last Admin: 02/03/18 10:31 Dose: 5 mg [id number] Ethyl Esters (Lovaza) 1 gm PO BID [facility] Last Admin: 02/03/18 10:31 Dose: 1 gm Ondansetron HCl (Zofran Inj) 4 mg IVP Q4H PRN PRN Reason: Nausea/Vomiting Pantoprazole Sodium (Protonix Ec Tab) 40 mg PO 0600 [facility] Last Admin: 02/03/18 05:48 Dose: 40 mg Tamsulosin HCl (Flomax) 0.4 mg PO DAILY [facility] Last Admin: 02/03/18 10:31 Dose: 0.4 mg Tramadol HCl (Ultram) 50 mg PO TID PRN PRN Reason: Pain, moderate (4-7) Last Admin: 02/03/18 10:31 Dose: 50 mg - Labs Labs: 02/02/18 10:00 02/02/18 10:00 PT 12.9 SECONDS (9.4-12.5) H 02/02/18 10:00 INR 1.12 02/02/18 10:00 APTT 37.0 Seconds (25.1-36.5) H 02/02/18 10:00 Attending/Attestation - Attestation I have personally seen and examined this patient.: Yes I have fully participated in the care of the patient.: Yes I have reviewed all pertinent clinical information, including history, physical exam and plan: Yes
--- NOTE | 2018-01-30 12:47 | CP.PCM.PN ---
Subjective - Date & Time of Evaluation Date of Evaluation: 01/30/18 Time of Evaluation: 12:28 - Subjective Subjective: PGY-2 medicine progress note for Dr Whitman Overnight patient was agitated and confused - he pulled out his IV. Today he appears lethargic and still somewhat agitated. He was AAOx3 today and able to sign for blood consent. Denied pain or discomfort. Wanted to be left alone. Dialysis later today. Objective - Vital Signs/Intake and Output Vital Signs (last 24 hours): Temp Pulse Resp BP Pulse Ox 97.8 F 69 20 177/74 H 93 L 01/30/18 06:00 01/30/18 06:00 01/30/18 06:00 01/30/18 06:00 01/30/18 06:00 Intake and Output: 01/30/18 01/30/18 06:59 18:59 Intake Total 924 Output Total 1200 Balance -276 - Medications Medications: Current Medications Acetaminophen (Tylenol 325mg Tab) 650 mg PO Q6 PRN PRN Reason: TEMP>=99.5F Last Admin: 01/29/18 21:21 Dose: 650 mg Acetaminophen (Tylenol 650 Mg Supp) 650 mg RC Q6H PRN PRN Reason: TEMP>=99.5F Aspirin (Ecotrin) 81 mg PO DAILY [facility] Last Admin: 01/29/18 12:42 Dose: 81 mg Benzonatate (Tessalon Perles) 200 mg PO TID [facility] Last Admin: 01/29/18 18:23 Dose: 200 mg Clonidine HCl (Catapres) 0.1 mg PO BID [facility] Last Admin: 01/29/18 18:26 Dose: Not Given Dextrose (Dextrose 50% Inj) 25 ml IV STAT PRN; Protocol PRN Reason: Hypoglycemia Protocol Docusate Sodium (Colace) 100 mg PO TID [facility] Last Admin: 01/29/18 18:23 Dose: 100 mg Dextrose (Dextrose 5% In Water 1000 Ml) 1,000 mls @ 0 mls/hr IV .Q0M PRN; Prot ocol PRN Reason: Hypoglycemia Protocol Meropenem 500 mg/ Sodium (Chloride) 50 mls @ 100 mls/hr IVPB Q12 [facility]; Protocol Stop: 01/30/18 22:01 Last Admin: 01/29/18 12:49 Dose: 100 mls/hr Heparin Sodium/Sodium Chloride (Heparin 66858 Units/250ml 1/2 Normal Saline) 25,000 units in 250 mls @ 21.339 mls/hr IV .[id number] PRN; Protocol PRN Reason: ADJUST RATE PER PROTOCOL Last Admin: 01/29/18 18:43 Dose: 10 units/kg/hr, 11.855 mls/hr Insulin Human Regular (Humulin R Med) 0 units SC ACHS [facility]; Protocol Last Admin: 01/30/18 08:32 Dose: Not Given Levalbuterol HCl (Xopenex) 0.63 mg IH [id number] [facility] Last Admin: 01/30/18 07:24 Dose: Not Given Ondansetron HCl (Zofran Inj) 4 mg IVP Q4H PRN PRN Reason: Nausea/Vomiting Pantoprazole Sodium (Protonix Ec Tab) 40 mg PO 0600 [facility] Last Admin: 01/30/18 06:22 Dose: 40 mg - Labs Labs: 01/30/18 06:15 01/30/18 06:15 PT 12.7 SECONDS (9.4-12.5) H 01/30/18 06:15 INR 1.10 01/30/18 06:15 APTT 37.7 Seconds (25.1-36.5) H 01/30/18 06:15 - Additional Findings Additional findings: - Constitutional Appears: Well, Non-toxic, No Acute Distress, Chronically Ill - Head Exam Head Exam: NORMAL INSPECTION - Eye Exam Eye Exam: Normal appearance - ENT Exam ENT Exam: Mucous Membranes Dry - Neck Exam Neck Exam: Normal Inspection - Respiratory Exam Respiratory Exam: Decreased Breath Sounds, NORMAL BREATHING PATTERN. absent: Rales, Rhonchi, Wheezes, Respiratory Distress - Cardiovascular Exam Cardiovascular Exam: RRR, +S1, +S2 - GI/Abdominal Exam GI & Abdominal Exam: Soft. 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 Left fifth phalanx cellulitis - Podiatry consulted, recs appreciated * Scheduled for left big toe amputation 01/31 - ID consulted, alia Díaz appreciated - Left foot x-ray: Chronic fracture in the base of the 5th proximal phalanx. Distal phalanx erosions. - Continue meropenem 500mg ivp q12h empirically (renal dose) - Blood Cx negative up to date - Wound Cx shows enterobacter and staph aureus Severe PVD -Due to severe PVD, patient underwent left peroneal artery arthrectomy and balloon angioplasty, left anterior tibial artery angioplasty and severe left pedal occlusive disease was noted during aortogram with LE runoff by Dr. Womack on 01/24/18 - LE arterial duplex: BEATRIZ R 1.14. Bilateral sever tibial occlusive disease L > R - Continue aspirin 81mg po qd - Continue heparin drip per IR recommendations (started after PVD surgical intervention), maintain therapeutic PTT * Drip to be discontinued 6 hours prior to podiatry surgical intervention scheduled for 01/31 LVH - Echo showed LVH with EF 55% - Cardiology consulted, alia Hines appreciated History of sinus arrest, S/P pacemaker - Cardiology consulted, alia Hines appreciated Anemia - Likely anemia of chronic kidney disease - Transfuse 1u pRBC w/ HD 01/30 History of IDDM2 - Consistent carbohydrate diet - Start ISS - Accucheck ACHS History of ESRD on HD - Nephrology consulted, Dr Fox, for dialysis ([facility]) - Monitor electrolytes and manage appropriately History of COPD - Xopenex - Tessalon Perles Agitation - Combative and agitated overnight 01/30 - CT head 01/30 * No acute intracranial abnormalities. No significant findings to account for the clinical presentation Hypotension, Resolved - Cardiology consulted, alia Hines appreciated - Hold home antihypertensives at this time - Clonidine 0.1mg po bid PPX - Protonix for GI ppx - Heparin/SCD's for DVT ppx Dispo: [facility] as they have HD capability Case was reviewed and discussed with attending, Dr. Whitman
[2018-01-30] MEDS: Meropenem 500 MG in Sodium Chloride 0.9% 50 ML IVPB SCH ×2 (14:54→23:28)
--- NOTE | 2018-01-30 17:23 | CON ---
DATE: 01/30/2018 HISTORY OF PRESENT ILLNESS: This is an 78-year-old man with past medical history of end-stage renal disease, on hemodialysis Sunday, Sunday and Sunday; type 2 diabetes mellitus; hypertension; multiple sinus arrests 7-8 seconds, status post ventricular permanent pacemaker placement in 11/2017; severe occlusive PVD; status post amputation of third toe of the left foot; diabetic foot ulcer; osteomyelitis of the left foot toe; obesity; COPD; hyperlipidemia; presented to the ER from the ED from the Wound Clinic for hypotension and was found to be intermittently confused. Currently, he is no longer confused, but he is alert and oriented to person, place, month and year. Recall after 5 minutes is 0/3. Poor attention span, slow thought process. Moving all extremities. CAT scan of the head showed no acute intracranial abnormalities. SOCIAL HISTORY: No illicit drug use, smoking or EtOH abuse. REVIEW OF SYSTEMS: Fourteen-point review of systems is negative except as per the HPI. FAMILY HISTORY: Noncontributory. MEDICATIONS: Reviewed by nurses' reconciliation sheet. PHYSICAL EXAMINATION: VITAL SIGNS: Temperature 97.8, pulse rate 69, blood pressure 177/74, respiratory rate of 20, oxygen saturation 93% by room air. GENERAL: The patient is sitting up in bed, in no acute distress. HEENT: Atraumatic, normocephalic. PERRLA. Extraocular muscles intact. NECK: Supple. No JVD, no adenopathy noted. LUNGS: Clear to auscultation. No adventitious sounds. HEART: S1 and S2. Normal rate and rhythm. No murmurs, rubs or gallops. ABDOMEN: Soft, nontender and nondistended. Bowel sounds are present. EXTREMITIES: No clubbing. No cyanosis. Peripheral pulses are 1+ felt bilaterally in the lower extremities. His left fifth digit is dark and necrotic appearing. NEUROLOGIC: The patient is alert and oriented to person, place and year. Recall after 5 minutes is 0/3. Poor attention span. Slow thought process. Cranial nerves II through XII are intact. Motor exam: Moves all extremities equally. No pronator drift seen. Sensory exam: Decreased light touch and pinprick up to the calves bilaterally. Decreased vibration of the toes. Deep tendon reflexes 2+ throughout and 1 at both knees and absent in the ankles. Coordination: [id number] is intact. No dysmetria noted. Gait is deferred for now. LABORATORY DATA: Sodium is 141, potassium 4.2, chloride 100, carbon dioxide 30, BUN of 45, creatinine of 7.3, random glucose of 124. ASSESSMENT AND PLAN: This is an 78-year-old man with past medical history of end-stage renal disease, on hemodialysis Sunday, Sunday and Sunday; type 2 diabetes mellitus, on insulin; hypertension; multiple sinus arrests and pause of 7-8 seconds, status post ventricular permanent pacemaker placement in 11/2017; severe occlusive peripheral vascular disease, status post amputation of the third toe of the left foot; diabetic foot ulcer; osteomyelitis of the left fifth toe; obesity; chronic obstructive pulmonary disease; hyperlipidemia; who presented from the Wound Clinic for hypertension, was found to be intermittently confused, which is secondary to transient delirium from underlying chronic medical conditions. At this time, recommend, 1. Due to his severe peripheral vascular disease, the patient will undergo an elective peroneal artery atherectomy and balloon angioplasty of left anterior and tibial angioplasty with severe left pedal occlusive disease aortogram on the lower extremity on 01/24/2018. He is currently on heparin drip. His drip has been maintained. 2. Follow his hemoglobin to make sure there is no drop in his hemoglobin. 3. Keep his blood pressures between 130s-140s systolic and diastolic 70-80s. 4. Delirium precautions. 5. Aspirin 81 mg for stroke prevention. 6. Keep his blood sugars between 140-180. 7. Avoid any sedative medications and avoid hypotensive episodes. Once again, thank you for this consult. Recommend subacute rehab. Oscar Aggarwal MD
[2018-01-30] MEDS ORDERED: Darbepoetin Alfa 60 mcg/ml Inj SC ONE (19:35)
--- NOTE | 2018-01-30 21:00 | PN ---
DATE: 01/30/2018 SUBJECTIVE: The patient is seen lying in bed. He is seen in the dialysis unit. He seemed to be resting comfortably. PHYSICAL EXAMINATION: GENERAL: Obese elderly male lying in bed. VITAL SIGNS: Blood pressure 170/73, heart rate 70, respiratory rate 18-20, temperature 97.4. HEENT: Normocephalic, atraumatic. NECK: Supple, no JVD. LUNGS: Bilateral equal air entry, equal expansion. CARDIAC: S1 and S2, regular rate and rhythm, no murmur, no rub. ABDOMEN: Obese, distended, soft, nontender, bowel sounds present. EXTREMITIES: No lower extremity edema. LABORATORY DATA: WBC 5.8, hemoglobin 8.3, hematocrit 27, platelets 188. Sodium 141, potassium 4.2, chloride 100, CO2 of 30, BUN 45, creatinine 7.3, glucose 124, calcium 8.5, phosphorus 5.2, magnesium 1.9. AST 23, ALT 18. CURRENT MEDICATIONS: List reviewed. ASSESSMENT: 1. Severe anemia. Aranesp x1 dose now. 2. End-stage renal disease, stable dialysis. 3. Severe peripheral vascular disease. 4.. Bef-neyldbk-aquovqmxz diabetes mellitus. 5. Hypertension. 6. History of osteomyelitis. PLAN: 1. Aranesp now. 2. The patient is scheduled for fifth left toe amputation. 3. Stable dialysis. 4. Monitor fingersticks. 5. Monitor H and H. Yadira Fox MD
--- NOTE | 2018-01-30 22:35 | PN ---
DATE: 01/30/2018 SUBJECTIVE: Patient is in bed, in no acute distress, was seen early this morning. No fevers. PHYSICAL EXAMINATION: VITAL SIGNS: On exam, temperature is 97, blood pressure is 169/60, respiratory rate of 18. HEENT: Examination of HEENT is unremarkable. NECK: Supple. LUNGS: Have decreased breath sounds. HEART: Normal S1, S2. ABDOMEN: Soft, nontender. LABORATORY DATA: Laboratory examination reveals a white count of 5.8, hemoglobin of 8, platelets of 188. Coagulation is noted. Chemistries reveals a BUN of 45, creatinine of 7.3. Urinalysis is noted. Microbiology reveals a left foot, left calf ulcer cultures and Enterobacter and staph aureus, Enterobacter cloacae sensitivity is noted. Light growth with a relatively sensitive organism including ceftriaxone, Bactrim, ertapenem, Cipro. The staph aureus is also sensitive to oxacillin. Review of orders reveals the patient to be on meropenem. ASSESSMENT AND PLAN: An 78-year-old male who was seen early this morning at room 565 with dry gangrene of left foot with sensitive Staphylococcus aureus and Enterobacter. The patient with peripheral arterial disease, hypertension, end-stage renal disease, diabetes, morbid obesity, body mass index of 41, dyslipidemia, on meropenem day #7 and we will discuss with Vascular and Podiatry and we will follow with you. Long Lance MD
--- NOTE | 2018-01-30 22:45 | PN ---
DATE: 01/30/2018 SUBJECTIVE: The patient seen in dialysis area. Overnight nurse's notes and events were noted. The patient became very agitated this morning, pulled out IVs and the patient refused IV access, became combative. The patient was found to be confused and combative according to the nurses early this morning and last night. PHYSICAL EXAMINATION: GENERAL: The patient was seen lying in the dialysis. The patient is awake, responsive. VITAL SIGNS: T max is 98.8; pulse 70, 74; blood pressure 169/75, 134/60, 177/74; respirations 20; O2 sat 92%-94%. HEAD: Normocephalic, atraumatic. HEENT: Shows pinkish pale conjunctivae. Anicteric sclerae. No oropharyngeal lesion. NECK: No neck rigidity. CHEST: Kyphosis. Positive upper chest pacemaker noted. LUNGS: Shows positive rhonchi in upper lung field. CARDIOVASCULAR: S1, S2. Positive systolic murmur, left sternal border, left second intercostal space, right second intercostal space. ABDOMEN: Protuberant, positive bowel sounds. GENITALIA: Male. RECTAL: Deferred. EXTREMITIES: Shows positive left upper extremity AV fistula. Positive swelling of the right upper extremity. Positive dressing of the left foot. MUSCULOSKELETAL: Shows a body mass index of 41. NEUROLOGIC: The patient is alert, awake, responsive x1 to 2. The patient is responsive to person. The patient is able to follow simple commands. GAIT: Not tested. VASCULAR: As per vascular examination. DIAGNOSTICS: On 01/30/2018, WBC 5.8, hemoglobin and hematocrit 8.3 and 27, platelet 188. PT and PTT 12.7 and 37.7. Sodium 141, potassium 4.2, chloride 100, CO2 30, anion gap 15, BUN 45, creatinine 7.3, GFR 7, glucose 124, calcium 8.5, phosphorus 5.2. LFTs are normal. The patient was sent for a stat CT of the head for evaluation of combativeness and agitation. As the patient has been on heparin drip. CAT scan of the head was negative for any bleed or any acute findings. The patient was consulted with Psychiatry and Neurology. The patient was evaluated by Neurology, their recommendation was noted. IMPRESSION AND PLAN: 1. 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 2. Poor compliance. 3. Intermittent confusional state. 4. Severe peripheral vascular disease of the lower extremity. 5. Transient delirium. 6. Cerebellar and cerebral cortical atrophy. 7 Periventricular small-vessel ischemic disease of the brain. 8. Chronic ethmoid and maxillary sinusitis. 9. Moderate oropharyngeal dysphagia. 10. Hypertension. 11. Status post hypotension. 12. Normocytic anemia with decreasing hemoglobin and hematocrit. 13. Elevated erythrocyte sedimentation rate. 14. End-stage renal disease, hemodialysis dependent three times a week via the left upper extremity AV fistula. 15. Enterobacter cloacae and Staphylococcus aureus, left foot diabetic foot ulceration and left fifth toe gangrenous diabetic foot ulceration. 16. Permanent pacemaker implant. 1. Status post hypotension. 2. Left foot Enterobacter cloacae and Staphylococcus aureus diabetic foot ulceration versus osteomyelitis versus diabetic foot ulceration. 3. Left fifth toe gangrenous diabetic foot ulceration. 4. Peripheral vascular disease. 5. Bilateral lower extremity peripheral vascular disease with bilateral severe tibial occlusive disease, left more than the right. 6. Chronic fracture of the base of the fifth proximal phalanx with distal phalanx erosion. 7. Possible hypotensive versus questionable septic shock with hypotension. 8. End-stage renal disease, hemodialysis dependent three times a week via the left upper extremity AV fistula. 9. Peripheral vascular disease. 10. Transient hypoxemia. 11. Normocytic anemia. 12. Elevated erythrocyte sedimentation rate. 13. Granulocytosis. 14. Elevated C-reactive protein of greater than 15. 15. Secondary hyperparathyroidism. 16. Insulin-requiring diabetes mellitus with hemoglobin A1c of 6. 17. Proteinuria, glycosuria, microscopic hematuria, pyuria, bacteriuria. 18. Status post successful left peroneal artery atherectomy and balloon angioplasty and successful left anterior tibial artery angioplasty with severe left pedal occlusive disease. 19. Concentric left ventricular hypertrophy with grade 1 abnormal relaxation pattern. 20. Moderately dilated left and right atrium. 21. Permanent pacemaker implant. 22. Moderate mitral annular calcification. 23. Moderate pulmonary hypertension with right ventricular systolic pressure of 54 mmHg. 24. Gait dysfunction. 25. Deconditioning. 26. Constipation. 1. Status post hypotension. 2. End-stage renal disease, hemodialysis dependent. 3. Severe peripheral vascular disease, status post angioplasty. 4. Left foot diabetic nonhealing ulcer with history of osteomyelitis. 5. Status post hypotension versus shock. 6. Systemic inflammatory response syndrome. 7. Methicillin-sensitive Staphylococcus aureus and Enterobacter cloacae, dry gangrene of the left foot toes. 8. Deconditioning. 9. Gait dysfunction. 10. Moderate oropharyngeal dysphagia with moderate risk for aspiration. 11. Insulin-requiring diabetes mellitus with hemoglobin A1c of 6. 12. Pulmonary hypertension with right ventricular systolic pressure of 54 mmHg. 13. Left ventricular hypertrophy of 56%. 14. Grade 1 abnormal relaxation pattern. 15. Moderately dilated left and right atrium. 16. Mildly sclerotic aortic valve. 17. Moderate mitral annular calcification. 18. Mild tricuspid and mild mitral regurgitation. 19. Left peroneal artery atherectomy and balloon angioplasty. 20. Left anterior tibial artery angioplasty. 1. Systemic inflammatory response syndrome with hypotension. 2. Severe peripheral vascular disease. 3. Left fifth toe osteomyelitis with Enterobacter cloacae and Staphylococcus aureus on left fifth toe osteomyelitis. 4. Status post hypotension. 5. Tachypnea. 6. Hypoxemia. 7. Normocytic anemia with granulocytosis and elevated C-reactive protein. 8. End-stage renal disease, hemodialysis dependent three times a week via the left upper extremity arteriovenous fistula. 9. Elevated C-reactive protein. 10. Insulin-requiring diabetes mellitus with hemoglobin A1c of 6. 11. Elevated C-reactive protein of greater than 15. 12. Diastolic right-sided congestive heart failure with elevated right ventricular systolic pressure of 54 mmHg. 13. Left ventricular ejection fraction of 56%. 14. Grade 1 abnormal relaxation pattern. 15. Moderately dilated left and right atrium. 16. Mildly sclerotic aortic valve. 17. Moderate mitral annular calcification. 18. Mild mitral regurgitation. 19. Mild tricuspid regurgitation with moderate pulmonary hypertension and right ventricular systolic pressure of 54 mmHg with right-sided diastolic congestive heart failure. 20. Left foot base of the fifth proximal phalanx chronic fracture. 21. Extensive emphysema. 22. Right lower lobe consolidation, atelectasis with small pleural effusion. 23. Mitral valve calcification. 24. Status post abdominal aortogram and bilateral lower extremity runoff with left selective view. 25. Status post left peroneal artery atherectomy and balloon angioplasty. 26. Left anterior tibial artery angioplasty. 27. Severe peripheral vascular disease. 28. Left foot osteomyelitis and gangrene. 29. End-stage renal disease. 30. Deconditioning. 31. Gait dysfunction. 32. Left foot fifth digit gangrenous osteomyelitis. 33. Right upper extremity swelling, etiology undetermined. 34. [id number] oropharyngeal dysphagia with moderate risk for aspiration due to missing upper full dentures. Immediate cough with bite size and mixed consistency solid, liquid food with delayed swallowing initiation and slow oral transit. 1. Systemic inflammatory response syndrome. 2. Left foot toes osteomyelitis secondary to Enterobacter cloacae and Staphylococcus aureus, left foot toe diabetic ulceration and osteomyelitis. 3. Status post hypotension. 4. Hypertension. 5. Elevated erythrocyte sedimentation rate of 57. 6. Anemia of chronic disease. 7. Hypocalcemia. 9. Insulin-requiring diabetes mellitus with hemoglobin A1c of 6. 10. Hyperphosphatemia. 11. Elevated C-reactive protein. 12. Gait dysfunction. 13. Deconditioning. 14. End-stage renal disease, hemodialysis dependent via the left upper extremity AV fistula. 15. Proteinuria, glycosuria, microscopic hematuria, pyuria, bacteriuria. 1. Status post severe symptomatic hypotension. 2. Severe peripheral vascular disease with bilateral tibial occlusive disease, status post angiogram. status post left tibial artery angioplasty, left peroneal artery angioplasty. 3. End-stage renal disease, hemodialysis dependent. 4. Tachypnea. 5. Normocytic anemia with granulocytosis 6. Elevated erythrocyte sedimentation rate of 57. 7. Hypocalcemia, hyperphosphatemia. 8. Elevated C-reactive protein of greater than 15. 9. Secondary hyperparathyroidism. 10. Well-controlled insulin-requiring diabetes mellitus with hemoglobin A1c of 6. 11. Left foot and left lower extremity gram-negative hailey, gram-positive cocci, left foot, left lower extremity cellulitis, diabetic ulceration and possible osteomyelitis. 12. Status post abdominal aortogram, bilateral lower extremity runoff with non-selective view. 13. Status post left peroneal artery atherectomy and balloon angioplasty. 14. Left anterior tibial artery angioplasty. 15. Severe left lower extremity pedal occlusive disease. 16. Deconditioning. 17. Gait dysfunction. 18. Poor intravenous access. 19. Upper lobe extensive emphysema with right lower lobe consolidation with effusion. 20. Mitral valve calcification. 21. Left fifth proximal phalanx chronic fracture of the base. 22. Left foot third toe amputation. 23. Left ventricle ejection fraction of 55% with pulmonary hypertension and right ventricular systolic pressure of 54 mmHg. 24. Concentric left ventricular hypertrophy with grade 1 abnormal relaxation pattern. 25. Permanent pacemaker implant. 26. Moderately dilated right and left atrium. 27. Mild aortic valve sclerosis. 28. Moderate mitral annular calcification with mild mitral regurgitation. 29. Mild tricuspid regurgitation with moderate pulmonary hypertension with right ventricular systolic pressure of 54 mmHg. 30. Anemia of chronic disease. 31. Left fifth digit gangrene and diabetic ulceration and gangrene. 32. Chronic obstructive pulmonary disease. 33. Poor intravenous access. 34. Systemic inflammatory response syndrome. 35. Hypotension probably secondary to over hemodialysis. 36. Left fifth toe necrotic. 1. Severe symptomatic hypotension. 2. Left foot osteomyelitis, status post intravenous antibiotic treatment. 3. Tachypnea. 4. Hypoxemia. 5. Normocytic anemia. 6. Granulocytosis. 7. Elevated erythrocyte sedimentation rate of 57. 8. End-stage renal disease, hemodialysis dependent three times a week via left upper extremity arteriovenous fistula. 9. Hyperphosphatemia and secondary hyperparathyroidism. 10. Elevated C-reactive protein of greater than 15. 11. Questionable congestive heart failure with elevated BNP versus volume overload and fluid overload. 12. 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 13. Bilateral lower extremity peripheral arterial disease with bilateral tibial occlusive disease, left greater than the right. 14. Bilateral lower extremity venous stasis. 15. Questionable congestive heart failure with pulmonary vascular congestion and cardiomegaly. 16. Insulin-requiring diabetes mellitus. 17. Permanent pacemaker implant. 18. Left foot fifth toe diabetic ulceration versus osteomyelitis. 19. Left foot fifth digit gangrene and gangrenous ulcer. 20. Severe peripheral vascular disease. 21. Secondary hyperparathyroidism. 22. History of hypertension, chronic obstructive pulmonary disease. 23. History of questionable poor healing left foot diabetic ulceration and gangrenous diabetic ulceration and osteomyelitis. 24. Status post left foot third toe amputation. 25. Severe emphysema of the upper lobes and right lower lobe atelectasis, consolidation and small pleural effusion. 26. Mitral valve calcification. 27. Deconditioning. 28. Constipation. 1. History of left foot osteomyelitis, status post intravenous antibiotic treatment. 2. End-stage renal disease, hemodialysis dependent. 3. History of hypertension. 4. Persistent refractory hypotension, etiology undetermined. 5. Hypoxemia. 6. Normocytic anemia with granulocytosis. 7. Elevated BNP, etiology undetermined. 8. Elevated C-reactive protein. 9. Peripheral vascular disease of the lower extremity. 10. Bilateral lower extremity venous stasis. 11. Gait dysfunction. 12. Deconditioning. 13. Cardiomegaly with mild pulmonary vascular congestion. 14. History of dementia. 15. History of permanent pacemaker implant. 16. History of prostatic hypertrophy, history of hypertriglyceridemia, history of secondary hyperparathyroidism. 17. Insulin-requiring diabetes mellitus. 18. Sick sinus syndrome. 19. History of left foot toe amputation. 20. Diabetic foot ulcer. 21. Left upper extremity arteriovenous fistula. 22. Left hand finger amputation. 23. History of nicotine dependence. 24. Sepsis. 25. Pneumonia. 26. Pulmonary hypertension with moderate concentric left ventricular hypertrophy. 27. Moderate mitral annular calcification. 28. Moderate pulmonary hypertension with right ventricular systolic pressure of 53 mmHg. 29. History of respiratory failure. 30. Oropharyngeal candidiasis. 31. Macroglossia. 32. Hypovitaminosis D. 33. History of sepsis secondary to healthcare-associated pneumonia, epiglottitis, and oropharyngeal candidiasis. 34. Uncontrolled diabetes mellitus. 35. History of BiPAP-requiring respiratory failure. 36. Obesity. 37. Hyperprocalcitoninemia . 38. Sinusitis. 39. History of chronic obstructive pulmonary disease exacerbation. 40. 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 41. Pulmonary emphysema. PLAN: At this time, the patient is scheduled for left foot toe amputation tomorrow. The patient is at least [id number] risk for surgical intervention. Case discussed with Cardiology. The patient has been ordered repeat labs. Current consultation Cardiology, Infectious Disease, Nephrology, Podiatry, Interventional Radiology. Psychiatry has been requested to evaluate the patient. CURRENT MEDICATIONS: The patient received Aranesp 60 mcg x1 today. The patient received Ativan 0.5 IV today. The patient is on clonidine 0.1 mg twice a day, Colace 100 mg three times a day, aspirin 81 mg daily, heparin drip as per Dr. Yong Womack. Meropenem 500 IV every 12, Protonix 40 daily, Tessalon Perles 200 three times a day, Tylenol 650 every 6 p.r.n., Xopenex nebulizer 0.63 mg every 6 hours, Zofran 4 mg IV every 4 hours p.r.n. The patient will now be resumed on his antihypertensive. The patient also has history of dementia for which the patient will be resumed on Aricept. The patient will be resumed on his Coreg, Carvedilol, PhosLo, Lipitor, Lovaza, Namenda. The patient is also on Neurontin, Protonix, all of which will be resumed on the patient at present. The patient's clonidine will be discontinued after resumption of all the above medications and antihypertensive. At present, the patient's overall prognosis is guarded to poor because of multiple comorbidities and multiple complicated medical condition. In view of the patient's multiple comorbidities and multiple complicated medical condition, the patient is at least [id number] surgical risk for surgical intervention, which has been explained to the patient and the family at length. Now the patient's current updated medications will be after the patient's resumption of home medications, which the patient has been taking at home. The patient's current medications as per revised and updated and reconciled medication list as of today. The patient is currently on hydralazine 100 mg twice a day, Aricept started at 10 mg at bedtime, aspirin 325 mg p.o. daily, Cardura 2 mg twice a day, Colace 100 mg three times a day, Coreg 25 mg twice a day, Cozaar 100 mg daily. Ecotrin 325 mg daily to be started tomorrow after surgery. Flomax 0.4 mg daily. Heparin drip to be held. Lipitor 40 mg daily, Lovaza 1 g twice a day, meropenem 500 IV every 12, Namenda increased to 5 mg twice a day, Neurontin 100 mg at bedtime, Norvasc 10 mg daily, PhosLo 667 mg three times a day, Protonix 40 mg daily, Tessalon Perles 200 three times a day for cough.. At present, the patient will be continued and resumed on all his home medications with close followup. The patient will require surgical intervention by Podiatry tomorrow. After the surgical intervention, upon which the IV antibiotic duration will be determined and the patient's placement will be determined. Dictated and electronically signed, not read. Oleg Whitman MD [facility]
[2018-01-31] MEDS: Levalbuterol 0.63 MG/3 ML Inhal Soln UD IH SCH ×4 (02:50→19:28)
[2018-01-31 06:55] LABS: BASO # 0.02 K/mm3 (0.0-2.0); BASO % 0.4 % (0.0-3.0); EOS # 0.2 (0.0-0.7); EOS % 2.7 % (1.5-5.0); GRAN # 3.37 (1.4-6.5); HEMOGLOBIN 8.7 g/dL (14.0-18.0); LYMPH # 1.3 (1.2-3.4); LYMPH % 22.6 % (22.0-35.0); MEAN CELL VOLUME 85.7 fl (80.0-105.0); MEAN CORPUSCULAR HEMOGLOBIN 26.5 pg (25.0-35.0); MEAN PLATELET VOLUME 9.8 fl (7.0-11.0); MONO # 0.8 (0.1-0.6); MONO % 14.3 % (1.0-6.0); RBC 3.28 10^6/uL (3.5-6.1); RED CELL DISTRIBUTION WIDTH 16.9 % (11.5-14.5); WHITE BLOOD COUNT 5.6 10^3/ul (4.5-11.0)
[2018-01-31 07:00] LABS: INR 1.08; PARTIAL THROMBOPLASTIN TIME 33.3 Seconds (25.1-36.5); PROTHROMBIN TIME 12.4 SECONDS (9.4-12.5)
[2018-01-31 07:01] LABS: ALB/GLOB RATIO 1.1 (1.1-1.8); ALBUMIN 3.2 g/dL (3.0-4.8); BILIRUBIN,DIRECT 0.3 mg/dL (0.0-0.4); CALCIUM 8.3 mg/dL (8.4-10.5)
--- NOTE | 2018-01-31 07:17 | CP.PCM.PN ---
Addendum entered and electronically signed by Lico Matias DPM 01/31/18 08:54: Patient did surgery (left 5th toe amputation). Patient tolerated the procedure well with no complications. Patient escorted to the PACU. Patient is vitally stable and NVS intact to his left LE. patient medications to be reconciled by the primary team. Hold heparin for today. Patient to bear weight as tolerated in a surgical shoe to the left LE. Patient will be followed up by the podiatry team while in house. Original Note: Subjective - Date & Time of Evaluation Date of Evaluation: 01/31/18 Time of Evaluation: 07:12 - Subjective Subjective: Podiatry progress note for Dr. Maher; 78M seen at bedside for gangrenous changes to left fifth digit. Patient is AAO x 3 and resting in bed at time of visit and not in acute distress. Patient states that he has still has episodes of pain in his left 5th toe since last night Patient denies any new pedal complaints. Patient is aware of his surgery today for left 5th toe amputation. Patient confirmed his NPO status since yesterday. Patient denies any overnight acute events. Patient denies any overnight F/N/V/C or SOB. Objective - Vital Signs/Intake and Output Vital Signs (last 24 hours): Temp Pulse Resp BP Pulse Ox 98.9 F 67 20 171/59 H 96 01/30/18 22:00 01/31/18 06:48 01/30/18 22:00 01/31/18 06:48 01/30/18 22:00 Intake and Output: 01/31/18 01/31/18 06:59 18:59 Intake Total 480 Balance 480 - Medications Medications: Current Medications Acetaminophen (Tylenol 325mg Tab) 650 mg PO Q6 PRN PRN Reason: TEMP>=99.5F Last Admin: 01/29/18 21:21 Dose: 650 mg Acetaminophen (Tylenol 650 Mg Supp) 650 mg RC Q6H PRN PRN Reason: TEMP>=99.5F Amlodipine Besylate (Norvasc) 10 mg PO DAILY [facility] Aspirin (Aspirin) 325 mg PO DAILY [facility] Atorvastatin Calcium (Lipitor) 40 mg PO HS [facility] Last Admin: 01/30/18 23:27 Dose: 40 mg Benzonatate (Tessalon Perles) 200 mg PO TID [facility] Last Admin: 01/30/18 18:26 Dose: 200 mg Calcium Acetate (Phoslo) 667 mg PO TID [facility] Carvedilol (Coreg) 25 mg PO BID [facility] Last Admin: 01/31/18 06:48 Dose: 25 mg Dextrose (Dextrose 50% Inj) 25 ml IV STAT PRN; Protocol PRN Reason: Hypoglycemia Protocol Docusate Sodium (Colace) 100 mg PO TID [facility] Last Admin: 01/30/18 18:26 Dose: 100 mg Donepezil HCl (Aricept) 10 mg PO HS [facility] Last Admin: 01/30/18 23:27 Dose: 10 mg Doxazosin Mesylate (Cardura) 2 mg PO BID [facility] Gabapentin (Neurontin) 100 mg PO HS [facility]; Protocol Last Admin: 01/30/18 23:27 Dose: 100 mg Hydralazine HCl (Apresoline) 100 mg PO BID [facility] Dextrose (Dextrose 5% In Water 1000 Ml) 1,000 mls @ 0 mls/hr IV .Q0M PRN; Protocol PRN Reason: Hypoglycemia Protocol Heparin Sodium/Sodium Chloride (Heparin 56140 Units/250ml 1/2 Normal Saline) 25,000 units in 250 mls @ 21.339 mls/hr IV .Q11Q10L PRN; Protocol PRN Reason: ADJUST RATE PER PROTOCOL Last Admin: 01/29/18 18:43 Dose: 10 units/kg/hr, 11.855 mls/hr Insulin Human Regular (Humulin R Med) 0 units SC ACHS [facility]; Protocol Last Admin: 01/30/18 16:10 Dose: Not Given Levalbuterol HCl (Xopenex) 0.63 mg IH [id number] [facility] Last Admin: 01/31/18 07:09 Dose: Not Given Losartan Potassium (Cozaar) 100 mg PO DAILY [facility] Memantine (Namenda) 5 mg PO BID [facility] [id number] Ethyl Esters (Lovaza) 1 gm PO BID [facility] Ondansetron HCl (Zofran Inj) 4 mg IVP Q4H PRN PRN Reason: Nausea/Vomiting Pantoprazole Sodium (Protonix Ec Tab) 40 mg PO 0600 [facility] Last Admin: 01/30/18 06:22 Dose: 40 mg Tamsulosin HCl (Flomax) 0.4 mg PO DAILY [facility] - Labs Labs: 01/31/18 06:20 09/27/18 06:20 PT 12.4 SECONDS (9.4-12.5) 01/31/18 06:20 INR 1.08 01/31/18 06:20 APTT 33.3 Seconds (25.1-36.5) 01/31/18 06:20 - Constitutional Appears: Well, Non-toxic, No Acute Distress - Head Exam Head Exam: ATRAUMATIC, NORMOCEPHALIC - Extremities Exam Additional comments: Left LE focused Exam: Vasc: DP/PT pulses are palpable 1/4. Cap refill time < 3 sec in all digits, skin temperature gradient: warm to cool from proximal to distal. L 5th digit became dark black in color. Neuro: Protective sensation diminished. Gross sensation intact. DERM: Ulceration on the dorsum of the 5th digit measuring approximately 1.5 cm x 3 cm with wound bed completely necrotic, covered by dry black eschar, the whole left 5th toe becomes black in color, no active drainage, no malodor, no tunneling or tracking, no purulent drainage, No erythema noted at the dorsum of the left forefoot, no clinical signs of infection. Hard, dry scabs noted on the dorsum of the 1st, 2nd and 4th left digits . color changes appears in all the digits (it become darker up to the level of the met. shafts) MSK: Pain on palpation of the digits particularly the 5th digit. Pain with the left 5th digit ROM. Muscle power intact 5/5 in all groups. - Neurological Exam Neurological Exam: Alert, Awake, Oriented x3 - Psychiatric Exam Psychiatric exam: Normal Affect, Normal Mood Assessment and Plan - Assessment and Plan (Free Text) Assessment: 78 y/o M patient seen and evaluated at the bedside for gangrenous changes to left fifth digit Plan: Patient seen and evaluated at the bed side. Plan discussed with Dr. Hilton. Chart, labs and vitals reviewed; Afebrile, absent leukocytosis. Wound cx: Enterobacter Cloacae, Staph Aureus. Continue abx per ID. LE arterial duplex: BEATRIZ R 1.14. Bilateral sever tibial occlusive disease L > R. B/L LE venous Duplex; No DVT. Left foot x-ray: Chronic fracture in the base of the 5th proximal phalanx. Distal phalanx erosions. Left toe left undressed. Patient underwent successful revascularization of his Left LE (9/20). Confirmed medical clearance for surgery from Dr. Fox. Confirmed NPO status from the patient. Patient was explained procedure and post-operative course All patient's questions were answered to satisfaction No guarantees were made Patient understands all risks, benefits and complications of procedure Patient will go to the OR today for Left 5th toe amputation. podiatry will continue to follow up the patient while in house.
[2018-01-31] MEDS ORDERED: Lidocaine 2% Inj (20ml) IJ STA (07:18)
[2018-01-31] MEDS ORDERED: Lidocaine 1% 5ml Abboject ONE (07:26)
[2018-01-31] MEDS ORDERED: Lidocaine PF 2% (5 ml) Inj (For Cardiac Arrhy) ONE ×3 (07:30→07:43)
[2018-01-31] MEDS ORDERED: Etomidate 20 mg/10ml Inj IV ONE (07:43)
[2018-01-31] MEDS ORDERED: Propofol 10 mg/ml Inj (20 ML) ONE (07:44)
[2018-01-31] MEDS ORDERED: CeFAZolin 1 gm in NS 100ml IVPB ONE (08:00)
[2018-01-31] MEDS ORDERED: Lidocaine 2% Inj (20ml) IJ ONE (08:02)
[2018-01-31] MEDS ORDERED: HYDROmorphone 0.5 mg/0.5 ml ISec IVP PRN (08:48)
--- NOTE | 2018-01-31 08:52 | PCM.SURG1 ---
Surgeon's Initial Post Op Note - Surgeon's Notes Surgeon: Dr. Lizbeth Maher. DPM Chemical Operations Specialist: Dr. Lico Matias. DPM, PGY1 Type of Anesthesia: IV Sedation, Local Anesthesia Administered By: Dr. Page Pre-Operative Diagnosis: Left 5th toe gangrene Operative Findings: See Dictation. Injectables: 8 cc of lidocaine plain 2%. Materials: 2-0 Vicryl and 3-0 Nylon Post-Operative Diagnosis: Same Operation Performed: Left 5th toe amputation with excision of all , necrotic tissues. Specimen/Specimens Removed: -Left 5th amputated toe. -Left 5th metatarsal bone head cartilage and subchondral bone as a clean margin. Estimated Blood Loss: EBL {In ML}: 3 Blood Products Given: N/A Drains Used: No Drains Post-Op Condition: Good Date of Surgery/Procedure: 01/31/18 Time of Surgery/Procedure: 08:52
[2018-01-31] MEDS ORDERED: Pantoprazole 40 mg EC Tab PO SCH (10:00)
--- NOTE | 2018-01-31 10:20 | OP ---
PROCEDURE DATE: 01/31/2018 PREOPERATIVE DIAGNOSIS: Left fifth toe gangrene. POSTOPERATIVE DIAGNOSIS: Left fifth toe gangrene. NAME OF THE PROCEDURE: Left fifth toe amputation with excision of old necrotic tissue. SURGEON: Lizbeth Maher DPM. STATIONARY ENGINEER: Dania Matias DPM, PGY1. TYPE OF ANESTHESIA: IV sedation plus local anesthesia. ANESTHESIA ADMINISTERED BY: Dr. Page. INDICATION: The patient is an 78-year-old male patient with above diagnosis. The patient had exhausted all the conservative treatments at this time and now requests surgical intervention. The patient signed the consent after careful explanation of risks, benefits, complications and alternatives for surgical procedure. The patient's consented over the phone for the patient's surgery after careful explanation of risks, benefits, complications and alternatives for surgery. No guarantees were given nor implied. PREPARATION: The patient was brought to the Operating Room and placed on operating table in a supine position. Time out was performed for identification of the correct patient and procedure. Tourniquet was not used or indicated for this procedure. After induction of IV sedation, the patient received a total of 8 mL of 2% lidocaine plain to the left foot in fifth toe V block fashion. Once local anesthesia was achieved, the left foot was then prepped and draped in a normal sterile manner and the procedure began. Attention was then drawn to the left fifth digit where racket-type incision was made circumferentially at the level of the left fifth metatarsophalangeal joint using a sterile 15 blade. The incision was then extended down through the subcutaneous layer down to the level of the bone, using the bone clamp to stabilize the toe, the left fifth digit was then disarticulated from the foot at the level of the left fifth metatarsophalangeal joint. This specimen was then passed from the operative field and sent to Pathology. Then using a bone cutter, the fifth met head cartilage and the underlying part of subchondral bone was excised and sent to the Pathology as a clean margin. Using a fresh #15 blade, debulking of the subcutaneous fat was done. Flushing of the surgical site done using a copious amount of sterile saline. Closure of amputation site using 2-0 Vicryl suture for subcutaneous tissue and 3-0 nylon for skin in the horizontal mattress and simple suture fashion. The surgical site was then dressed with Xeroform, sterile 4 x 4 gauze, Kerlix and an Jeremi bandage. POSTOPERATIVE CONDITION: The patient tolerated the procedure and the anesthesia well and was escorted to the Recovery Room with vital signs stable and neurovascular strength intact to the left lower extremity. Podiatry will follow up the patient while in-house and the patient will follow up with Dr. Lizbeth Maher at the [facility] upon discharge. DANIA MATIAS DPM PGY1 Lizbeth Maher DPM MTDD
--- NOTE | 2018-01-31 10:54 | CP.PCM.PCO ---
Physician Communication Note - Physician Communication Note Physician Communication Note: pt was in OR while round,will f/u tomorrow or earlier if needed.
[2018-01-31] MEDS: Insulin Reg-MEDIUM-Coverage SC SCH ×4 (11:11→22:18)
[2018-01-31] MEDS: Pantoprazole 40 mg EC Tab PO SCH (11:12)
--- NOTE | 2018-01-31 14:51 | CP.PCM.PN ---
Subjective - Date & Time of Evaluation Date of Evaluation: 01/31/18 Time of Evaluation: 09:20 - Subjective Subjective: PGY-2 medicine progress note for Dr Whitman Last night patient refused resumption of HD, he completed 3:30 of 4 hour treatment. Overnight he attempted to get out of bed multiple times. He went for 5th left digit amputation with podiatry today which he tolerated well. He did not complain of pain or discomfort. Objective - Vital Signs/Intake and Output Vital Signs (last 24 hours): Temp Pulse Resp BP Pulse Ox 98.2 F 61 20 198/80 H 97 01/31/18 11:00 01/31/18 11:00 01/31/18 11:00 01/31/18 11:00 01/31/18 11:00 Intake and Output: 01/31/18 01/31/18 06:59 18:59 Intake Total 480 Balance 480 - Medications Medications: Current Medications Acetaminophen (Tylenol 325mg Tab) 650 mg PO Q6 PRN PRN Reason: TEMP>=99.5F Last Admin: 01/29/18 21:21 Dose: 650 mg Acetaminophen (Tylenol 650 Mg Supp) 650 mg RC Q6H PRN PRN Reason: TEMP>=99.5F Amlodipine Besylate (Norvasc) 10 mg PO DAILY [facility] Aspirin (Aspirin) 325 mg PO DAILY [facility] Atorvastatin Calcium (Lipitor) 40 mg PO HS [facility] Last Admin: 01/30/18 23:27 Dose: 40 mg Benzonatate (Tessalon Perles) 200 mg PO TID [facility] Last Admin: 01/30/18 18:26 Dose: 200 mg Calcium Acetate (Phoslo) 667 mg PO TID [facility] Last Admin: 01/31/18 13:39 Dose: 667 mg Carvedilol (Coreg) 25 mg PO BID [facility] Last Admin: 01/31/18 06:48 Dose: 25 mg Dextrose (Dextrose 50% Inj) 25 ml IV STAT PRN; Protocol PRN Reason: Hypoglycemia Protocol Docusate Sodium (Colace) 100 mg PO TID [facility] Last Admin: 01/31/18 13:35 Dose: 100 mg Donepezil HCl (Aricept) 10 mg PO [facility] Last Admin: 01/30/18 23:27 Dose: 10 mg Doxazosin Mesylate (Cardura) 2 mg PO BID [facility] Gabapentin (Neurontin) 100 mg PO [facility]; Protocol Last Admin: 01/30/18 23:27 Dose: 100 mg Hydralazine HCl (Apresoline) 100 mg PO BID [facility] Dextrose (Dextrose 5% In Water 1000 Ml) 1,000 mls @ 0 mls/hr IV .Q0M PRN; Protocol PRN Reason: Hypoglycemia Protocol Heparin Sodium/Sodium Chloride (Heparin 09123 Units/250ml 1/2 Normal Saline) 25,000 units in 250 mls @ 21.339 mls/hr IV .[id number] PRN; Protocol PRN Reason: ADJUST RATE PER PROTOCOL Last Admin: 01/29/18 18:43 Dose: 10 units/kg/hr, 11.855 mls/hr Insulin Human Regular (Humulin R Med) 0 units SC [facility]; Protocol Last Admin: 01/31/18 13:06 Dose: Not Given Levalbuterol HCl (Xopenex) 0.63 mg IH [id number] [facility] Last Admin: 01/31/18 13:00 Dose: 0.63 mg Losartan Potassium (Cozaar) 100 mg PO DAILY [facility] Memantine (Namenda) 5 mg PO BID [facility] [id number] Ethyl Esters (Lovaza) 1 gm PO BID [facility] Ondansetron HCl (Zofran Inj) 4 mg IVP Q4H PRN PRN Reason: Nausea/Vomiting Pantoprazole Sodium (Protonix Ec Tab) 40 mg PO 0600 [facility] Last Admin: 01/31/18 11:12 Dose: Not Given Tamsulosin HCl (Flomax) 0.4 mg PO DAILY [facility] - Labs Labs: 01/31/18 06:20 01/31/18 06:20 PT 12.4 SECONDS (9.4-12.5) 01/31/18 06:20 INR 1.08 01/31/18 06:20 APTT 33.3 Seconds (25.1-36.5) 01/31/18 06:20 - Additional Findings Additional findings: - Constitutional Appears: Well, Non-toxic, No Acute Distress, Chronically Ill - Head Exam Head Exam: NORMAL INSPECTION - Eye Exam Eye Exam: Normal appearance - ENT Exam ENT Exam: Mucous Membranes Dry - Neck Exam Neck Exam: Normal Inspection - Respiratory Exam Respiratory Exam: Decreased Breath Sounds, NORMAL BREATHING PATTERN. absent: Rales, Rhonchi, Wheezes, Respiratory Distress - Cardiovascular Exam Cardiovascular Exam: RRR, +S1, +S2 - GI/Abdominal Exam GI & Abdominal Exam: Soft. absent: Distended, Tenderness - Extremities Exam Additional comments: left foot with abdelrahman wrap over kerlex dsg clean, dry and intact - Back Exam Back Exam: absent: CVA tenderness (L), CVA tenderness (R) - Neurological Exam Neurological Exam: Alert, Awake - Psychiatric Exam Psychiatric exam: Normal Mood - Skin Additional comments: as above Assessment and Plan - Assessment and Plan (Free Text) Plan: 78-year-old male with a PMH of ESRD on HD (MWF), DM 2 (on insulin), HTN, mu ltiple sinus arrest pauses (7-8 seconds) s/p ventricular permanent pacemaker placement (11/2017), severe occlusive PVD s/p amputation of third toe of left foot, diabetic foot ulcer, osteomyelitis of the left fifth toe, obesity, COPD, and HLD who presents to the ED from the wound clinic for hypotension. Left fifth phalanx cellulitis - Podiatry consulted, reclyle appreciated * performed Left 5th toe amputation with excision of all , necrotic tissues 01/31 - ID consulted, alia Díaz appreciated - Left foot x-ray: Chronic fracture in the base of the 5th proximal phalanx. Distal phalanx erosions. - Continue meropenem 500mg ivp q12h empirically (renal dose) - Blood Cx negative up to date - Wound Cx shows enterobacter and staph aureus Severe PVD -Due to severe PVD, patient underwent left peroneal artery arthrectomy and balloon angioplasty, left anterior tibial artery angioplasty and severe left pedal occlusive disease was noted during aortogram with LE runoff by Dr. Womack on 01/24/18 - LE arterial duplex: BEATRIZ R 1.14. Bilateral sever tibial occlusive disease L > R - Continue aspirin 325mg po qd - Continue heparin drip per IR recommendations (started after PVD surgical intervention), maintain therapeutic PTT * Drip to be discontinued 6 hours prior to podiatry surgical intervention scheduled for 01/31 LVH - Echo showed LVH with EF 55% - Cardiology consulted, alia Hines appreciated - coreg 25mg po bid History of sinus arrest, S/P pacemaker - Cardiology consulted, alia Hines appreciated Anemia - Likely anemia of chronic kidney disease - Transfuse 1u pRBC w/ HD 01/30 History of IDDM2 - Consistent carbohydrate diet - Start ISS - Accucheck ACHS - Continue home med gabapentin 100mg po hs HTN - amlodipine 10mg po qd - Hydralazine 100mg po bid - Losartan 100mg po qd History of ESRD on HD - Nephrology consulted, Dr Fox, for dialysis (MW) - Monitor electrolytes and manage appropriately - Calcium acetate 667mg po tid History of COPD - Xopenex - Tessalon [place] Agitation - Combative and agitated especially at night - Psychiatry consulted, Dr Russ - CT head 01/30 * No acute intracranial abnormalities. No significant findings to account for the clinical presentation - Continue home med donepezil 10mg po hs - Continue home med memantine 5mg po bid Hypotension, Resolved - Cardiology consulted, Dr Duran, reclyle appreciated - Hold home antihypertensives at this time - Clonidine 0.1mg po bid PPX - Protonix for GI ppx - SCD's for DVT ppx - Will start anticoagulation tomorrow (had left 5th digit amputation today) - Continue home med tamsulosin 0.4mg po qd Dispo: [facility] as [facility] have HD capability Case was reviewed and discussed with attending, Dr. Whitman
[2018-01-31] MEDS ORDERED: Morphine 2 mg/ml ISec IVP STA (16:28)
[2018-01-31] MEDS: Omega-3-Acid Ethyl Esters 1 GM Cap PO SCH (17:22)
[2018-01-31] MEDS ORDERED: Morphine 2 mg/ml ISec IVP PRN (18:15)
--- NOTE | 2018-01-31 18:26 | PN ---
DATE: 01/31/2018 SUBJECTIVE: The patient is seen lying in bed. He is awake. He is alert. He is complaining of pain in his left foot. He is denying any chest pain. He denies any shortness of breath. PHYSICAL EXAMINATION: GENERAL: Obese elderly male lying in bed. VITAL SIGNS: Blood pressure 119/55, heart rate 60, respiratory rate 20, temperature 98. HEENT: Normocephalic, atraumatic, positive pallor. NECK: Supple, no JVD. LUNGS: Bilateral equal air entry, bilateral equal expansion. CARDIAC: S1 and S2, regular rate and rhythm, no murmur, no rub. ABDOMEN: Obese, distended, soft, nontender. Bowel sounds present. EXTREMITIES: Dressing of the left foot. LABORATORY DATA: WBC 5.6, hemoglobin 8.7, hematocrit 28, platelets 158. Sodium 142, potassium 4.1, chloride 104, CO2 27, BUN 38, creatinine 5.7, glucose 147, calcium 8.3, phosphorus 4.5, magnesium 1.9, AST 26, ALT 20. CURRENT MEDICATIONS: Apresoline 100 b.i.d., Aricept, aspirin, Cardura, Coreg 25 b.i.d., Cozaar 100, Flomax, Lipitor, Namenda, Neurontin, amlodipine, PhosLo, Xopenex. ASSESSMENT: 1. Severe peripheral vascular disease, tibial occlusive disease, status post angioplasty, now status post amputation of the fifth toe, postop day #1. 2. Severe hypertension. 3. Noninsulin-dependent diabetes mellitus. 4. End-stage renal disease. 5. History of osteomyelitis. 6. Severe anemia. PLAN: 1. Dialysis tomorrow. 2. Increase the Aranesp to 100 mcg once a week in HD. 3. Hectorol 4 mcg. 4. Continue pain management. 5. Continue empiric antibiotics. Yadira Fox MD
--- NOTE | 2018-01-31 23:33 | PN ---
DATE: 01/31/2018 SUBJECTIVE: Patient is in bed, in no acute distress, nontoxic. PHYSICAL EXAMINATION: GENERAL: The patient was seen earlier this morning in room 565, bed 1. VITAL SIGNS: Temperature is 98, blood pressure is 119/50, respiratory rate of 20. HEENT: Unremarkable. NECK: Supple. LUNGS: Have decreased breath sounds. HEART: Normal S1, S2. ABDOMEN: Soft. LABORATORY EXAMINATION: Reveals a white count of 5.6, hemoglobin of 8.7. Coagulation is noted. Chemistries reveals BUN of 38, creatinine of 5.7. Urinalysis is noted. Microbiology reveals Enterobacter cloacae species, Staph aureus. The patient referred to OR today. Operative note is reviewed. The patient is for left fifth toe amputation and excision of the old necrotic tissue by Dr. Maher. ASSESSMENT AND PLAN: An 78-year-old male in room 565 with dry gangrene of left toe and sensitive Staphylococcus aureus, Enterobacter, peripheral arterial disease, hypertension, end-stage renal disease, diabetes, morbid obesity, body mass index of 41, dyslipidemia, on meropenem, status post amputation today, currently on meropenem. We will check the OR cultures and the pathology to determine the duration of antibiotics. We will follow closely with you. Long Lance MD
--- NOTE | 2018-02-01 01:13 | PN ---
DATE: 01/31/2018 SUBJECTIVE: The patient is seen lying in the in the recovery room. The patient underwent a left foot fifth toe amputation and debridement of the necrotic left fifth toe. The patient is seen lying in the bed. The patient is in the recovery room. OBJECTIVE: GENERAL: The patient is alert, awake, responsive, in no distress. Telemetry monitoring shows sinus rhythm with intermittent pacing. VITAL SIGNS: Blood pressure 153/87, O2 sat 97%. HEENT: The patient's head examination normocephalic, atraumatic. HEENT examination shows pinkish pale conjunctivae. Anicteric sclerae. No oropharyngeal lesion. No neck rigidity. CHEST: Positive upper chest pacemaker noted. Chest examination, kyphosis. Occasional rhonchi on upper lung field noted. CARDIOVASCULAR: Shows S1, S2, regular rhythm. Positive systolic murmur in the left sternal border, right second intercostal space, left second intercostal space. ABDOMEN: Protuberant, obese. Positive bowel sounds. GENITALIA: Male. RECTAL: Deferred. EXTREMITIES: Shows positive dressing of the left foot. Trace swelling of the lower extremity noted. Positive left upper extremity AV fistula, positive thrill of the AV fistula noted, positive swelling of the right upper extremity noted. MUSCULOSKELETAL: Shows an elevated body mass index. NEUROLOGIC: The patient is alert, awake, responsive. DIAGNOSTIC DATA: The patient's CBC was reviewed. Hemoglobin/hematocrit is still 8.3 and 28. BUN and creatinine were elevated on CMP, and LFTs was reviewed. The BUN, creatinine is still elevated. Rest of the CMP and LFTs are within normal limit. IMPRESSION: 1. Status post left fifth toe amputation. 2. Severe peripheral vascular disease, status post angioplasty of the left lower extremity. 3. Delirium. 4. Encephalopathy with episodic confusional state. 5. Status post hypotension. 6. Systemic inflammatory response syndrome. 7. Normocytic anemia. 8. Status post packed red blood cell transfusion. 9. Left foot diabetic ulceration secondary to severe peripheral vascular disease. 10. Gait dysfunction. 11. Deconditioning. 12. History of hypertension. 13. Status post permanent pacemaker implant. 14. Pulmonary hypertension. 15. Dementia. 16. History of dementia. 17. History of hypertension, hyperlipidemia, hypertriglyceridemia. 18. History of prostate hypertrophy. 19. End-stage renal disease, hemodialysis dependent three times a week via the left upper extremity AV fistula. 1. 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 2. Poor compliance. 3. Intermittent confusional state. 4. Severe peripheral vascular disease of the lower extremity. 5. Transient delirium. 6. Cerebellar and cerebral cortical atrophy. 7 Periventricular small-vessel ischemic disease of the brain. 8. Chronic ethmoid and maxillary sinusitis. 9. Moderate oropharyngeal dysphagia. 10. Hypertension. 11. Status post hypotension. 12. Normocytic anemia with decreasing hemoglobin and hematocrit. 13. Elevated erythrocyte sedimentation rate. 14. End-stage renal disease, hemodialysis dependent three times a week via the left upper extremity AV fistula. 15. Enterobacter cloacae and Staphylococcus aureus, left foot diabetic foot ulceration and left fifth toe gangrenous diabetic foot ulceration. 16. Permanent pacemaker implant. 1. Status post hypotension. 2. Left foot Enterobacter cloacae and Staphylococcus aureus diabetic foot ulceration versus osteomyelitis versus diabetic foot ulceration. 3. Left fifth toe gangrenous diabetic foot ulceration. 4. Peripheral vascular disease. 5. Bilateral lower extremity peripheral vascular disease with bilateral severe tibial occlusive disease, left more than the right. 6. Chronic fracture of the base of the fifth proximal phalanx with distal phalanx erosion. 7. Possible hypotensive versus questionable septic shock with hypotension. 8. End-stage renal disease, hemodialysis dependent three times a week via the left upper extremity AV fistula. 9. Peripheral vascular disease. 10. Transient hypoxemia. 11. Normocytic anemia. 12. Elevated erythrocyte sedimentation rate. 13. Granulocytosis. 14. Elevated C-reactive protein of greater than 15. 15. Secondary hyperparathyroidism. 16. Insulin-requiring diabetes mellitus with hemoglobin A1c of 6. 17. Proteinuria, glycosuria, microscopic hematuria, pyuria, bacteriuria. 18. Status post successful left peroneal artery atherectomy and balloon angioplasty and successful left anterior tibial artery angioplasty with severe left pedal occlusive disease. 19. Concentric left ventricular hypertrophy with grade 1 abnormal relaxation pattern. 20. Moderately dilated left and right atrium. 21. Permanent pacemaker implant. 22. Moderate mitral annular calcification. 23. Moderate pulmonary hypertension with right ventricular systolic pressure of 54 mmHg. 24. Gait dysfunction. 25. Deconditioning. 26. Constipation. 1. Status post hypotension. 2. End-stage renal disease, hemodialysis dependent. 3. Severe peripheral vascular disease, status post angioplasty. 4. Left foot diabetic nonhealing ulcer with history of osteomyelitis. 5. Status post hypotension versus shock. 6. Systemic inflammatory response syndrome. 7. Methicillin-sensitive Staphylococcus aureus and Enterobacter cloacae, dry gangrene of the left foot toes. 8. Deconditioning. 9. Gait dysfunction. 10. Moderate oropharyngeal dysphagia with moderate risk for aspiration. 11. Insulin-requiring diabetes mellitus with hemoglobin A1c of 6. 12. Pulmonary hypertension with right ventricular systolic pressure of 54 mmHg. 13. Left ventricular hypertrophy of 56%. 14. Grade 1 abnormal relaxation pattern. 15. Moderately dilated left and right atrium. 16. Mildly sclerotic aortic valve. 17. Moderate mitral annular calcification. 18. Mild tricuspid and mild mitral regurgitation. 19. Left peroneal artery atherectomy and balloon angioplasty. 20. Left anterior tibial artery angioplasty. 1. Systemic inflammatory response syndrome with hypotension. 2. Severe peripheral vascular disease. 3. Left fifth toe osteomyelitis with Enterobacter cloacae and Staphylococcus aureus on left fifth toe osteomyelitis. 4. Status post hypotension. 5. Tachypnea. 6. Hypoxemia. 7. Normocytic anemia with granulocytosis and elevated C-reactive protein. 8. End-stage renal disease, hemodialysis dependent three times a week via the left upper extremity arteriovenous fistula. 9. Elevated C-reactive protein. 10. Insulin-requiring diabetes mellitus with hemoglobin A1c of 6. 11. Elevated C-reactive protein of greater than 15. 12. Diastolic right-sided congestive heart failure with elevated right ventricular systolic pressure of 54 mmHg. 13. Left ventricular ejection fraction of 56%. 14. Grade 1 abnormal relaxation pattern. 15. Moderately dilated left and right atrium. 16. Mildly sclerotic aortic valve. 17. Moderate mitral annular calcification. 18. Mild mitral regurgitation. 19. Mild tricuspid regurgitation with moderate pulmonary hypertension and right ventricular systolic pressure of 54 mmHg with right-sided diastolic congestive heart failure. 20. Left foot base of the fifth proximal phalanx chronic fracture. 21. Extensive emphysema. 22. Right lower lobe consolidation, atelectasis with small pleural effusion. 23. Mitral valve calcification. 24. Status post abdominal aortogram and bilateral lower extremity runoff with left selective view. 25. Status post left peroneal artery atherectomy and balloon angioplasty. 26. Left anterior tibial artery angioplasty. 27. Severe peripheral vascular disease. 28. Left foot osteomyelitis and gangrene. 29. End-stage renal disease. 30. Deconditioning. 31. Gait dysfunction. 32. Left foot fifth digit gangrenous osteomyelitis. 33. Right upper extremity swelling, etiology undetermined. 34. [id number] oropharyngeal dysphagia with moderate risk for aspiration due to missing upper full dentures. Immediate cough with bite size and mixed consistency solid, liquid food with delayed swallowing initiation and slow oral transit. 1. Systemic inflammatory response syndrome. 2. Left foot toes osteomyelitis secondary to Enterobacter cloacae and Staphylococcus aureus, left foot toe diabetic ulceration and osteomyelitis. 3. Status post hypotension. 4. Hypertension. 5. Elevated erythrocyte sedimentation rate of 57. 6. Anemia of chronic disease. 7. Hypocalcemia. 9. Insulin-requiring diabetes mellitus with hemoglobin A1c of 6. 10. Hyperphosphatemia. 11. Elevated C-reactive protein. 12. Gait dysfunction. 13. Deconditioning. 14. End-stage renal disease, hemodialysis dependent via the left upper extremity AV fistula. 15. Proteinuria, glycosuria, microscopic hematuria, pyuria, bacteriuria. 1. Status post severe symptomatic hypotension. 2. Severe peripheral vascular disease with bilateral tibial occlusive disease, status post angiogram. status post left tibial artery angioplasty, left peroneal artery angioplasty. 3. End-stage renal disease, hemodialysis dependent. 4. Tachypnea. 5. Normocytic anemia with granulocytosis 6. Elevated erythrocyte sedimentation rate of 57. 7. Hypocalcemia, hyperphosphatemia. 8. Elevated C-reactive protein of greater than 15. 9. Secondary hyperparathyroidism. 10. Well-controlled insulin-requiring diabetes mellitus with hemoglobin A1c of 6. 11. Left foot and left lower extremity gram-negative hailey, gram-positive cocci, left foot, left lower extremity cellulitis, diabetic ulceration and possible osteomyelitis. 12. Status post abdominal aortogram, bilateral lower extremity runoff with non-selective view. 13. Status post left peroneal artery atherectomy and balloon angioplasty. 14. Left anterior tibial artery angioplasty. 15. Severe left lower extremity pedal occlusive disease. 16. Deconditioning. 17. Gait dysfunction. 18. Poor intravenous access. 19. Upper lobe extensive emphysema with right lower lobe consolidation with effusion. 20. Mitral valve calcification. 21. Left fifth proximal phalanx chronic fracture of the base. 22. Left foot third toe amputation. 23. Left ventricle ejection fraction of 55% with pulmonary hypertension and right ventricular systolic pressure of 54 mmHg. 24. Concentric left ventricular hypertrophy with grade 1 abnormal relaxation pattern. 25. Permanent pacemaker implant. 26. Moderately dilated right and left atrium. 27. Mild aortic valve sclerosis. 28. Moderate mitral annular calcification with mild mitral regurgitation. 29. Mild tricuspid regurgitation with moderate pulmonary hypertension with right ventricular systolic pressure of 54 mmHg. 30. Anemia of chronic disease. 31. Left fifth digit gangrene and diabetic ulceration and gangrene. 32. Chronic obstructive pulmonary disease. 33. Poor intravenous access. 34. Systemic inflammatory response syndrome. 35. Hypotension probably secondary to over hemodialysis. 36. Left fifth toe necrotic. 1. Severe symptomatic hypotension. 2. Left foot osteomyelitis, status post intravenous antibiotic treatment. 3. Tachypnea. 4. Hypoxemia. 5. Normocytic anemia. 6. Granulocytosis. 7. Elevated erythrocyte sedimentation rate of 57. 8. End-stage renal disease, hemodialysis dependent three times a week via left upper extremity arteriovenous fistula. 9. Hyperphosphatemia and secondary hyperparathyroidism. 10. Elevated C-reactive protein of greater than 15. 11. Questionable congestive heart failure with elevated BNP versus volume overload and fluid overload. 12. 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 13. Bilateral lower extremity peripheral arterial disease with bilateral tibial occlusive disease, left greater than the right. 14. Bilateral lower extremity venous stasis. 15. Questionable congestive heart failure with pulmonary vascular congestion and cardiomegaly. 16. Insulin-requiring diabetes mellitus. 17. Permanent pacemaker implant. 18. Left foot fifth toe diabetic ulceration versus osteomyelitis. 19. Left foot fifth digit gangrene and gangrenous ulcer. 20. Severe peripheral vascular disease. 21. Secondary hyperparathyroidism. 22. History of hypertension, chronic obstructive pulmonary disease. 23. History of questionable poor healing left foot diabetic ulceration and gangrenous diabetic ulceration and osteomyelitis. 24. Status post left foot third toe amputation. 25. Severe emphysema of the upper lobes and right lower lobe atelectasis, consolidation and small pleural effusion. 26. Mitral valve calcification. 27. Deconditioning. 28. Constipation. 1. History of left foot osteomyelitis, status post intravenous antibiotic treatment. 2. End-stage renal disease, hemodialysis dependent. 3. History of hypertension. 4. Persistent refractory hypotension, etiology undetermined. 5. Hypoxemia. 6. Normocytic anemia with granulocytosis. 7. Elevated BNP, etiology undetermined. 8. Elevated C-reactive protein. 9. Peripheral vascular disease of the lower extremity. 10. Bilateral lower extremity venous stasis. 11. Gait dysfunction. 12. Deconditioning. 13. Cardiomegaly with mild pulmonary vascular congestion. 14. History of dementia. 15. History of permanent pacemaker implant. 16. History of prostatic hypertrophy, history of hypertriglyceridemia, history of secondary hyperparathyroidism. 17. Insulin-requiring diabetes mellitus. 18. Sick sinus syndrome. 19. History of left foot toe amputation. 20. Diabetic foot ulcer. 21. Left upper extremity arteriovenous fistula. 22. Left hand finger amputation. 23. History of nicotine dependence. 24. Sepsis. 25. Pneumonia. 26. Pulmonary hypertension with moderate concentric left ventricular hypertrophy. 27. Moderate mitral annular calcification. 28. Moderate pulmonary hypertension with right ventricular systolic pressure of 53 mmHg. 29. History of respiratory failure. 30. Oropharyngeal candidiasis. 31. Macroglossia. 32. Hypovitaminosis D. 33. History of sepsis secondary to healthcare-associated pneumonia, epiglottitis, and oropharyngeal candidiasis. 34. Uncontrolled diabetes mellitus. 35. History of BiPAP-requiring respiratory failure. 36. Obesity. 37. Hyperprocalcitoninemia . 38. Sinusitis. 39. History of chronic obstructive pulmonary disease exacerbation. 40. 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 41. Pulmonary emphysema. PLAN: At this time, the patient is to be stabilized in the recovery room. Then the patient will be transferred back to the fifth floor. The patient will be continued on close followup with podiatry, infectious disease, vascular surgery, cardiology and nephrology. The patient will be continued on the IV antibiotics and medications as per the MAR, which was reviewed and revised. The patient will be continued on routine physical therapy, occupational therapy, ambulation therapy, gait training as per physical therapy after postop stabilization. The patient's heparin drip will be continued or discontinued as per the recommendation and discussion of the interventional radiology, Dr. Yong Womack. We will await the cultures from the left toe amputation to evaluate the resection margins if they are clean, which will determine the duration of IV antibiotics. Dictated and electronically signed, not read. Oleg Whitman MD [facility]
[2018-02-01] MEDS: Levalbuterol 0.63 MG/3 ML Inhal Soln UD IH SCH ×4 (01:42→19:36)
[2018-02-01] MEDS: Pantoprazole 40 mg EC Tab PO SCH (05:44)
[2018-02-01] MEDS ORDERED: Darbepoetin Alfa 100 mcg/ml Inj IVP ONE (06:00)
[2018-02-01] MEDS ORDERED: Doxercalciferol 4 mcg/2 ml Inj IV ONE (06:00)
[2018-02-01 06:38] LABS: BASO # 0.01 K/mm3 (0.0-2.0); BASO % 0.2 % (0.0-3.0); EOS # 0.2 (0.0-0.7); EOS % 2.9 % (1.5-5.0); GRAN # 3.35 (1.4-6.5); GRAN % 61.5 % (50.0-68.0); HEMOGLOBIN 8.4 g/dL (14.0-18.0); LYMPH # 1.4 (1.2-3.4); LYMPH % 25.7 % (22.0-35.0); MEAN CELL VOLUME 85.5 fl (80.0-105.0); MEAN CORPUSCULAR HEMOGLOBIN 26.4 pg (25.0-35.0); MEAN CORPUSCULAR HGB CONC 30.9 g/dl (31.0-37.0); MEAN PLATELET VOLUME 11.1 fl (7.0-11.0); MONO # 0.5 (0.1-0.6); MONO % 9.7 % (1.0-6.0); RBC 3.18 10^6/uL (3.5-6.1); RED CELL DISTRIBUTION WIDTH 17.2 % (11.5-14.5); WHITE BLOOD COUNT 5.5 10^3/ul (4.5-11.0)
[2018-02-01 06:40] LABS: INR 1.13; PARTIAL THROMBOPLASTIN TIME 35.8 Seconds (25.1-36.5)
[2018-02-01 06:58] LABS: ALBUMIN 3.2 g/dL (3.0-4.8); BILIRUBIN,DIRECT 0.4 mg/dL (0.0-0.4); CALCIUM 8.4 mg/dL (8.4-10.5)
[2018-02-01] MEDS: Insulin Reg-MEDIUM-Coverage SC SCH ×3 (07:30→16:05)
--- NOTE | 2018-02-01 08:21 | CP.PCM.PN ---
<Lico Matias - Last Filed: 02/01/18 20:04> Subjective - Date & Time of Evaluation Date of Evaluation: 02/01/18 Time of Evaluation: 17:20 - Subjective Subjective: Podiatry progress note for Dr. Gleason; 78 y/o M seen at bedside 1 day S/P left 5th toe amputation. Patient is AAO x 3 and resting in bed at time of visit and not in acute distress. Patient states that has no pain since he received the pain medication the night before.. Patient denies any overnight acute events. Patient denies any overnight F/N/V/C or SOB. Objective - Vital Signs/Intake and Output Vital Signs (last 24 hours): Temp Pulse Resp BP Pulse Ox 98.4 F 68 22 121/49 L 95 01/31/18 21:37 01/31/18 21:37 01/31/18 21:37 01/31/18 21:37 01/31/18 21:37 Intake and Output: 02/01/18 02/01/18 06:59 18:59 Intake Total 560 Balance 560 - Medications Medications: Current Medications Acetaminophen (Tylenol 325mg Tab) 650 mg PO Q6 PRN PRN Reason: TEMP>=99.5F Last Admin: 01/29/18 21:21 Dose: 650 mg Acetaminophen (Tylenol 650 Mg Supp) 650 mg RC Q6H PRN PRN Reason: TEMP>=99.5F Amlodipine Besylate (Norvasc) 10 mg PO DAILY [facility] Aspirin (Aspirin) 325 mg PO DAILY [facility] Atorvastatin Calcium (Lipitor) 40 mg PO HS [facility] Last Admin: 01/31/18 21:12 Dose: 40 mg Benzonatate (Tessalon Perles) 200 mg PO TID [facility] Last Admin: 01/31/18 17:23 Dose: 200 mg Calcium Acetate (Phoslo) 667 mg PO TID [facility] Last Admin: 01/31/18 17:22 Dose: 667 mg Carvedilol (Coreg) 25 mg PO BID [facility] Last Admin: 01/31/18 18:23 Dose: 25 mg Dextrose (Dextrose 50% Inj) 25 ml IV STAT PRN; Protocol PRN Reason: Hypoglycemia Protocol Docusate Sodium (Colace) 100 mg PO TID [facility] Last Admin: 01/31/18 17:22 Dose: 100 mg Donepezil HCl (Aricept) 10 mg PO HS [facility] Last Admin: 01/31/18 21:12 Dose: 10 mg Doxazosin Mesylate (Cardura) 2 mg PO BID [facility] Last Admin: 01/31/18 17:23 Dose: 2 mg Gabapentin (Neurontin) 100 mg PO HS [facility]; Protocol Last Admin: 01/31/18 21:12 Dose: 100 mg Hydralazine HCl (Apresoline) 100 mg PO BID [facility] Last Admin: 01/31/18 17:22 Dose: 100 mg Dextrose (Dextrose 5% In Water 1000 Ml) 1,000 mls @ 0 mls/hr IV .Q0M PRN; Protocol PRN Reason: Hypoglycemia Protocol Meropenem 250 mg/ Sodium (Chloride) 100 mls @ 100 mls/hr IVPB Q12H [facility]; Protocol Stop: 02/08/18 19:31 Last Admin: 01/31/18 21:12 Dose: 100 mls/hr Insulin Human Regular (Humulin R Med) 0 units SC ACHS [facility]; Protocol Last Admin: 02/01/18 07:30 Dose: Not Given Levalbuterol HCl (Xopenex) 0.63 mg IH [id number] [facility] Last Admin: 02/01/18 07:23 Dose: 0.63 mg Losartan Potassium (Cozaar) 100 mg PO DAILY [facility] Memantine (Namenda) 5 mg PO BID [facility] Last Admin: 01/31/18 17:23 Dose: 5 mg Morphine Sulfate (Morphine) 2 mg IVP Q6H PRN PRN Reason: Pain, severe (8-10) Last Admin: 02/01/18 02:45 Dose: 2 mg [id number] Ethyl Esters (Lovaza) 1 gm PO BID [facility] Last Admin: 01/31/18 17:22 Dose: 1 gm Ondansetron HCl (Zofran Inj) 4 mg IVP Q4H PRN PRN Reason: Nausea/Vomiting Pantoprazole Sodium (Protonix Ec Tab) 40 mg PO 0600 [facility] Last Admin: 02/01/18 05:44 Dose: 40 mg Tamsulosin HCl (Flomax) 0.4 mg PO DAILY [facility] - Labs Labs: 02/01/18 06:00 02/01/18 06:00 PT 13.0 SECONDS (9.4-12.5) H 02/01/18 06:00 INR 1.13 02/01/18 06:00 APTT 35.8 Seconds (25.1-36.5) 02/01/18 06:00 - Constitutional Appears: Well, Non-toxic, No Acute Distress - Head Exam Head Exam: ATRAUMATIC, NORMOCEPHALIC - Extremities Exam Additional comments: Left LE focused Exam: patient surgery dressing left intact, It was clean, dry and intact with no strike through. Vasc: Cap refill time < 3 sec in all digits. Neuro: Protective sensation diminished. Gross sensation intact. DERM: Dressing left intact MSK: Patient can perform Ative ROM with his toes. - Neurological Exam Neurological Exam: Alert, Awake, Oriented x3 - Psychiatric Exam Psychiatric exam: Normal Affect, Normal Mood Assessment and Plan - Assessment and Plan (Free Text) Assessment: 78 y/o M patient seen and evaluated at the bedside 1 day S/P left fifth digit amputation Plan: Patient seen and evaluated at the bed side. Plan discussed with Chart, labs and vitals reviewed; Afebrile, absent leukocytosis. Wound cx: Enterobacter Cloacae, Staph Aureus. Patient underwent successful revascularization of his Left LE (01/24). Deep wound culture from the surgery; Pending. Pathology report; pending. Continue abx per ID. LE arterial duplex: BEATRIZ R 1.14. Bilateral sever tibial occlusive disease L > R. B/L LE venous Duplex; No DVT. Left foot x-ray: Chronic fracture in the base of the 5th proximal phalanx. Distal phalanx erosions. Surgery dressing left intact, It was clean, dry and intact with no strike through. podiatry will continue to follow up the patient while in house. <Jose Gleason - Last Filed: 02/02/18 08:14> Objective - Vital Signs/Intake and Output Vital Signs (last 24 hours): Temp Pulse Resp BP Pulse Ox 97.9 F 82 18 148/87 98 02/02/18 06:00 02/02/18 06:00 02/02/18 06:00 02/02/18 06:00 02/02/18 06:00 Intake and Output: 02/02/18 02/02/18 06:59 18:59 Intake Total 360 Balance 360 - Medications Medications: Current Medications Acetaminophen (Tylenol 325mg Tab) 650 mg PO Q6 PRN PRN Reason: TEMP>=99.5F Last Admin: 01/29/18 21:21 Dose: 650 mg Acetaminophen (Tylenol 650 Mg Supp) 650 mg RC Q6H PRN PRN Reason: TEMP>=99.5F Amlodipine Besylate (Norvasc) 10 mg PO DAILY [facility] Last Admin: 02/01/18 10:20 Dose: Not Given Aspirin (Aspirin) 325 mg PO DAILY [facility] Last Admin: 02/01/18 10:19 Dose: Not Given Atorvastatin Calcium (Lipitor) 40 mg PO [facility] Last Admin: 02/01/18 22:03 Dose: 40 mg Benzonatate (Tessalon Perles) 200 mg PO TID [facility] Last Admin: 02/01/18 17:15 Dose: 200 mg Calcium Acetate (Phoslo) 667 mg PO TID [facility] Last Admin: 02/01/18 17:17 Dose: 667 mg Carvedilol (Coreg) 25 mg PO BID [facility] Last Admin: 02/01/18 17:15 Dose: 25 mg Dextrose (Dextrose 50% Inj) 25 ml IV STAT PRN; Protocol PRN Reason: Hypoglycemia Protocol Docusate Sodium (Colace) 100 mg PO TID [facility] Last Admin: 02/01/18 17:14 Dose: 100 mg Donepezil HCl (Aricept) 10 mg PO [facility] Last Admin: 02/01/18 22:03 Dose: 10 mg Doxazosin Mesylate (Cardura) 2 mg PO BID [facility] Last Admin: 02/01/18 17:14 Dose: 2 mg Gabapentin (Neurontin) 100 mg PO [facility]; Protocol Last Admin: 02/01/18 22:03 Dose: 100 mg Hydralazine HCl (Apresoline) 100 mg PO BID [facility] Last Admin: 02/01/18 17:13 Dose: 100 mg Dextrose (Dextrose 5% In Water 1000 Ml) 1,000 mls @ 0 mls/hr IV .Q0M PRN; Protocol PRN Reason: Hypoglycemia Protocol Meropenem 250 mg/ Sodium (Chloride) 100 mls @ 100 mls/hr IVPB Q12H [facility]; Protocol Stop: 02/08/18 19:31 Last Admin: 02/01/18 18:38 Dose: Not Given Insulin Human Regular (Humulin R Med) 0 units SC [facility]; Protocol Last Admin: 02/02/18 03:28 Dose: Not Given Levalbuterol HCl (Xopenex) 0.63 mg IH Q2UFETI [facility] Last Admin: 02/02/18 01:07 Dose: 0.63 mg Lidocaine (Lidoderm) 1 ea TD DAILY [facility] Losartan Potassium (Cozaar) 100 mg PO DAILY [facility] Last Admin: 02/01/18 10:20 Dose: Not Given Memantine (Namenda) 5 mg PO BID [facility] Last Admin: 02/01/18 17:17 Dose: 5 mg [id number] Ethyl Esters (Lovaza) 1 gm PO BID [facility] Last Admin: 02/01/18 17:20 Dose: 1 gm Ondansetron HCl (Zofran Inj) 4 mg IVP Q4H PRN PRN Reason: Nausea/Vomiting Pantoprazole Sodium (Protonix Ec Tab) 40 mg PO 0600 [facility] Last Admin: 02/02/18 05:51 Dose: 40 mg Tamsulosin HCl (Flomax) 0.4 mg PO DAILY [facility] Last Admin: 02/01/18 10:20 Dose: Not Given Tramadol HCl (Ultram) 50 mg PO TID PRN PRN Reason: Pain, moderate (4-7) Last Admin: 02/01/18 17:22 Dose: 50 mg - Labs Labs: 02/01/18 06:00 02/01/18 06:00 PT 13.0 SECONDS (9.4-12.5) H 02/01/18 06:00 INR 1.13 02/01/18 06:00 APTT 35.8 Seconds (25.1-36.5) 02/01/18 06:00 Attending/Attestation - Attestation I have personally seen and examined this patient.: Yes I have fully participated in the care of the patient.: Yes I have reviewed all pertinent clinical information, including history, physical exam and plan: Yes
[2018-02-01] MEDS: Omega-3-Acid Ethyl Esters 1 GM Cap PO SCH ×2 (10:21→17:20)
--- NOTE | 2018-02-01 18:02 | CP.PCM.PN ---
Subjective - Date & Time of Evaluation Date of Evaluation: 02/01/18 Time of Evaluation: 11:05 - Subjective Subjective: Afebrile, not in distress. Objective - Vital Signs/Intake and Output Vital Signs (last 24 hours): Temp Pulse Resp BP Pulse Ox 98.4 F 68 22 121/49 L 95 01/31/18 21:37 01/31/18 21:37 01/31/18 21:37 01/31/18 21:37 01/31/18 21:37 Intake and Output: 01/31/18 02/01/18 18:59 06:59 Intake Total 240 560 Balance 240 560 - Medications Medications: Current Medications Acetaminophen (Tylenol 325mg Tab) 650 mg PO Q6 PRN PRN Reason: TEMP>=99.5F Last Admin: 01/29/18 21:21 Dose: 650 mg Acetaminophen (Tylenol 650 Mg Supp) 650 mg RC Q6H PRN PRN Reason: TEMP>=99.5F Amlodipine Besylate (Norvasc) 10 mg PO DAILY [facility] Aspirin (Aspirin) 325 mg PO DAILY [facility] Atorvastatin Calcium (Lipitor) 40 mg PO HS [facility] Last Admin: 01/31/18 21:12 Dose: 40 mg Benzonatate (Tessalon Perles) 200 mg PO TID [facility] Last Admin: 01/31/18 17:23 Dose: 200 mg Calcium Acetate (Phoslo) 667 mg PO TID [facility] Last Admin: 01/31/18 17:22 Dose: 667 mg Carvedilol (Coreg) 25 mg PO BID [facility] Last Admin: 01/31/18 18:23 Dose: 25 mg Dextrose (Dextrose 50% Inj) 25 ml IV STAT PRN; Protocol PRN Reason: Hypoglycemia Protocol Docusate Sodium (Colace) 100 mg PO TID [facility] Last Admin: 01/31/18 17:22 Dose: 100 mg Donepezil HCl (Aricept) 10 mg PO HS [facility] Last Admin: 01/31/18 21:12 Dose: 10 mg Doxazosin Mesylate (Cardura) 2 mg PO BID [facility] Last Admin: 01/31/18 17:23 Dose: 2 mg Gabapentin (Neurontin) 100 mg PO HS [facility]; Protocol Last Admin: 01/31/18 21:12 Dose: 100 mg Hydralazine HCl (Apresoline) 100 mg PO BID [facility] Last Admin: 01/31/18 17:22 Dose: 100 mg Dextrose (Dextrose 5% In Water 1000 Ml) 1,000 mls @ 0 mls/hr IV .Q0M PRN; Protocol PRN Reason: Hypoglycemia Protocol Meropenem 250 mg/ Sodium (Chloride) 100 mls @ 100 mls/hr IVPB Q12H [facility]; Protocol Stop: 02/08/18 19:31 Last Admin: 01/31/18 21:12 Dose: 100 mls/hr Insulin Human Regular (Humulin R Med) 0 units SC ACHS [facility]; Protocol Last Admin: 01/31/18 22:18 Dose: Not Given Levalbuterol HCl (Xopenex) 0.63 mg IH [id number] [facility] Last Admin: 02/01/18 01:42 Dose: 0.63 mg Losartan Potassium (Cozaar) 100 mg PO DAILY [facility] Memantine (Namenda) 5 mg PO BID [facility] Last Admin: 01/31/18 17:23 Dose: 5 mg Morphine Sulfate (Morphine) 2 mg IVP Q6H PRN PRN Reason: Pain, severe (8-10) Last Admin: 02/01/18 02:45 Dose: 2 mg Ctezg-5-Xmiy Ethyl Esters (Lovaza) 1 gm PO BID [facility] Last Admin: 01/31/18 17:22 Dose: 1 gm Ondansetron HCl (Zofran Inj) 4 mg IVP Q4H PRN PRN Reason: Nausea/Vomiting Pantoprazole Sodium (Protonix Ec Tab) 40 mg PO 0600 [facility] Last Admin: 02/01/18 05:44 Dose: 40 mg Tamsulosin HCl (Flomax) 0.4 mg PO DAILY [facility] - Labs Labs: 01/31/18 06:20 01/31/18 06:20 PT 12.4 SECONDS (9.4-12.5) 01/31/18 06:20 INR 1.08 01/31/18 06:20 APTT 33.3 Seconds (25.1-36.5) 01/31/18 06:20 - Constitutional Appears: Chronically Ill - Head Exam Head Exam: NORMAL INSPECTION - Respiratory Exam Respiratory Exam: Decreased Breath Sounds - Cardiovascular Exam Cardiovascular Exam: +S1, +S2 - GI/Abdominal Exam GI & Abdominal Exam: Soft. absent: Tenderness - Extremities Exam Additional comments: left foot with dressings in place Assessment and Plan - Assessment and Plan (Free Text) Plan: Assessment consider dry gangrene of the left foot toes with MSSA and Enterobacter in this patient with peripheral arterial disease S/P left fifth digit amputation history of severe sepsis due to left foot cellulitis with left 5th toe gangrene and clinical osteomyelitis history of severe sepsis due to healthcare-associated pneumonia as well as epiglottitis with oropahryngeal candidiasis ESRD on HD DM HTN morbid obesity with BMI 41 dyslipidemia COPD cataracts chronic low back pain Plan continue Merrem day 9 and follow up OR cultures and pathology will continue to monitor clinically
--- NOTE | 2018-02-01 21:03 | PN ---
DATE: 02/01/2018 SUBJECTIVE: The patient is seen lying in bed. He is somewhat groggy. He had dialysis earlier today. He denies any chest pain. He complains of pain in his left foot. PHYSICAL EXAMINATION: GENERAL: Elderly male lying in bed. VITAL SIGNS: Blood pressure 180/60, heart rate 80, respiratory rate 18, temperature 98.2. HEENT: Normocephalic, atraumatic. NECK: Supple, no JVD. LUNGS: Bilateral equal air entry, bilateral equal expansion. CARDIAC: S1 and S2, regular rate and rhythm, no murmur, no rub. ABDOMEN: Obese, distended, soft, nontender, bowel sounds present. EXTREMITIES: Dressing of the left foot. LABORATORY DATA: WBC 5.5, hemoglobin 8.4, hematocrit 27, platelets 153. Sodium 142, potassium 3.9, chloride 105, CO2 of 28, BUN 50, creatinine 7.2, glucose 104, calcium 8.4, phosphorus 5, magnesium 1.8. MEDICATIONS: List reviewed. ASSESSMENT: 1. End-stage renal disease. 2. Peripheral vascular disease, status post left fifth toe amputation. 3. Coronary artery disease/congestive heart failure. 4. Anemia of chronic kidney disease. 5. History of osteomyelitis. PLAN: 1. Stable dialysis. 2. Continue antibiotics. 3. Continue wound care. 4. Discharge planning. Yadira Fox MD
[2018-02-02] MEDS: Levalbuterol 0.63 MG/3 ML Inhal Soln UD IH SCH ×4 (01:07→20:54)
[2018-02-02] MEDS: Insulin Reg-MEDIUM-Coverage SC SCH ×4 (03:28→18:51)
[2018-02-02] MEDS: Pantoprazole 40 mg EC Tab PO SCH (05:51)
[2018-02-02] MEDS: Omega-3-Acid Ethyl Esters 1 GM Cap PO SCH ×2 (09:29→18:51)
[2018-02-02 10:18] LABS: BASO # 0.03 K/mm3 (0.0-2.0); BASO % 0.5 % (0.0-3.0); EOS # 0.3 (0.0-0.7); GRAN # 3.83 (1.4-6.5); GRAN % 61.8 % (50.0-68.0); HEMOGLOBIN 9.9 g/dL (14.0-18.0); LYMPH # 1.7 (1.2-3.4); LYMPH % 26.6 % (22.0-35.0); MEAN CELL VOLUME 85.7 fl (80.0-105.0); MEAN CORPUSCULAR HEMOGLOBIN 26.7 pg (25.0-35.0); MEAN CORPUSCULAR HGB CONC 31.1 g/dl (31.0-37.0); MONO # 0.4 (0.1-0.6); MONO % 7.1 % (1.0-6.0); RBC 3.71 10^6/uL (3.5-6.1); RED CELL DISTRIBUTION WIDTH 17.1 % (11.5-14.5); WHITE BLOOD COUNT 6.2 10^3/ul (4.5-11.0)
[2018-02-02 10:21] LABS: INR 1.12; PROTHROMBIN TIME 12.9 SECONDS (9.4-12.5)
[2018-02-02 10:31] LABS: ALB/GLOB RATIO 1.1 (1.1-1.8); ALBUMIN 3.2 g/dL (3.0-4.8); BILIRUBIN,DIRECT 0.4 mg/dL (0.0-0.4); CALCIUM 8.6 mg/dL (8.4-10.5)
--- NOTE | 2018-02-02 10:58 | CP.PCM.PN ---
<Dalton Cesar - Last Filed: 02/02/18 10:55> Subjective - Date & Time of Evaluation Date of Evaluation: 02/02/18 Time of Evaluation: 10:55 - Subjective Subjective: Podiatry progress note for Dr. Gleason; 78 y/o M seen at bedside 2 days S/P left 5th toe amputation. Patient is AAO x 3 and resting in bed at time of visit and not in acute distress. Patient states that has no pain since he received the pain medication the night before.. Patient denies any overnight acute events. Patient denies any overnight F/N/V/C or SOB. Objective - Vital Signs/Intake and Output Vital Signs (last 24 hours): Temp Pulse Resp BP Pulse Ox 97.9 F 82 18 150/88 98 02/02/18 06:00 02/02/18 06:00 02/02/18 06:00 02/02/18 09:27 02/02/18 06:00 Intake and Output: 02/02/18 02/02/18 06:59 18:59 Intake Total 360 Balance 360 - Medications Medications: Current Medications Acetaminophen (Tylenol 325mg Tab) 650 mg PO Q6 PRN PRN Reason: TEMP>=99.5F Last Admin: 01/29/18 21:21 Dose: 650 mg Acetaminophen (Tylenol 650 Mg Supp) 650 mg RC Q6H PRN PRN Reason: TEMP>=99.5F Amlodipine Besylate (Norvasc) 10 mg PO DAILY [facility] Last Admin: 02/02/18 09:27 Dose: 10 mg Aspirin (Aspirin) 325 mg PO DAILY [facility] Last Admin: 02/01/18 10:19 Dose: Not Given Atorvastatin Calcium (Lipitor) 40 mg PO HS [facility] Last Admin: 02/01/18 22:03 Dose: 40 mg Benzonatate (Tessalon Perles) 200 mg PO TID [facility] Last Admin: 02/02/18 09:27 Dose: 200 mg Calcium Acetate (Phoslo) 667 mg PO TID [facility] Last Admin: 02/02/18 09:30 Dose: 667 mg Carvedilol (Coreg) 25 mg PO BID [facility] Last Admin: 02/01/18 17:15 Dose: 25 mg Dextrose (Dextrose 50% Inj) 25 ml IV STAT PRN; Protocol PRN Reason: Hypoglycemia Protocol Docusate Sodium (Colace) 100 mg PO TID [facility] Last Admin: 02/02/18 09:27 Dose: 100 mg Donepezil HCl (Aricept) 10 mg PO [facility] Last Admin: 02/01/18 22:03 Dose: 10 mg Doxazosin Mesylate (Cardura) 2 mg PO BID [facility] Last Admin: 02/02/18 09:27 Dose: 2 mg Gabapentin (Neurontin) 100 mg PO HS [facility]; Protocol Last Admin: 02/01/18 22:03 Dose: 100 mg Hydralazine HCl (Apresoline) 100 mg PO BID [facility] Last Admin: 02/02/18 09:27 Dose: 100 mg Dextrose (Dextrose 5% In Water 1000 Ml) 1,000 mls @ 0 mls/hr IV .Q0M PRN; Protocol PRN Reason: Hypoglycemia Protocol Meropenem 250 mg/ Sodium (Chloride) 100 mls @ 100 mls/hr IVPB Q12H [facility]; Protocol Stop: 02/08/18 19:31 Last Admin: 02/02/18 09:28 Dose: 100 mls/hr Insulin Human Regular (Humulin R Med) 0 units SC [facility]; Protocol Last Admin: 02/02/18 08:00 Dose: Not Given Levalbuterol HCl (Xopenex) 0.63 mg IH [id number] [facility] Last Admin: 02/02/18 09:21 Dose: 0.63 mg Lidocaine (Lidoderm) 1 ea TD DAILY [facility] Losartan Potassium (Cozaar) 100 mg PO DAILY [facility] Last Admin: 02/02/18 09:27 Dose: 100 mg Memantine (Namenda) 5 mg PO BID [facility] Last Admin: 02/02/18 09:27 Dose: 5 mg Uuqpi-0-Dabk Ethyl Esters (Lovaza) 1 gm PO BID [facility] Last Admin: 02/02/18 09:29 Dose: 1 gm Ondansetron HCl (Zofran Inj) 4 mg IVP Q4H PRN PRN Reason: Nausea/Vomiting Pantoprazole Sodium (Protonix Ec Tab) 40 mg PO 0600 [facility] Last Admin: 02/02/18 05:51 Dose: 40 mg Tamsulosin HCl (Flomax) 0.4 mg PO DAILY [facility] Last Admin: 02/02/18 09:29 Dose: 0.4 mg Tramadol HCl (Ultram) 50 mg PO TID PRN PRN Reason: Pain, moderate (4-7) Last Admin: 02/01/18 17:22 Dose: 50 mg - Labs Labs: 02/02/18 10:00 02/02/18 10:00 PT 12.9 SECONDS (9.4-12.5) H 02/02/18 10:00 INR 1.12 02/02/18 10:00 APTT 37.0 Seconds (25.1-36.5) H 02/02/18 10:00 - Constitutional Appears: Well, Non-toxic, No Acute Distress - Head Exam Head Exam: ATRAUMATIC, NORMOCEPHALIC - Extremities Exam Additional comments: Left LE focused Exam: patient surgery dressing left intact, It was clean, dry and intact with no strike through. Vasc: Cap refill time < 3 sec in all digits. Neuro: Protective sensation diminished. Gross sensation intact. DERM: Dressing taken down, mild drainage appreciated, sutures still intact, no pus or purulent drainage, no streaking, no clinical signs of infection MSK: Patient can perform Ative ROM with his toes. - Neurological Exam Neurological Exam: Alert, Awake, Oriented x3 - Psychiatric Exam Psychiatric exam: Normal Affect, Normal Mood Assessment and Plan - Assessment and Plan (Free Text) Assessment: 78 y/o M patient seen and evaluated at the bedside 2 day S/P left fifth digit amputation Plan: Patient seen and evaluated at the bed side with Dr. Gleason Chart, labs and vitals reviewed; Afebrile, absent leukocytosis. Wound cx: Enterobacter Cloacae, Staph Aureus. Patient underwent successful revascularization of his Left LE (01/24). Deep wound culture from the surgery; Pending. Pathology report; pending. Continue abx per ID. LE arterial duplex: BEATRIZ R 1.14. Bilateral sever tibial occlusive disease L > R. B/L LE venous Duplex; No DVT. Left foot x-ray: Chronic fracture in the base of the 5th proximal phalanx. Distal phalanx erosions. Surgical dressing taken down, mild drainage noted, no clinical signs of infection, dressing reapplied, will change again on Sunday. podiatry will continue to follow up the patient while in house. <Jose Gleason - Last Filed: 02/05/18 12:09> Objective - Vital Signs/Intake and Output Vital Signs (last 24 hours): Temp Pulse Resp BP Pulse Ox 98 F 74 18 130/62 94 L 02/05/18 07:57 02/05/18 07:57 02/05/18 07:57 02/05/18 10:31 02/05/18 07:57 Intake and Output: 02/05/18 02/05/18 06:59 18:59 Intake Total 420 Balance 420 - Medications Medications: Current Medications Acetaminophen (Tylenol 325mg Tab) 650 mg PO Q6 PRN PRN Reason: TEMP>=99.5F Last Admin: 01/29/18 21:21 Dose: 650 mg Acetaminophen (Tylenol 650 Mg Supp) 650 mg RC Q6H PRN PRN Reason: TEMP>=99.5F Amlodipine Besylate (Norvasc) 10 mg PO DAILY [facility] Last Admin: 02/05/18 10:30 Dose: 10 mg Aspirin (Aspirin) 325 mg PO DAILY [facility] Last Admin: 02/05/18 10:36 Dose: Not Given Atorvastatin Calcium (Lipitor) 40 mg PO HS [facility] Last Admin: 02/04/18 22:41 Dose: 40 mg Benzonatate (Tessalon Perles) 200 mg PO TID [facility] Last Admin: 02/05/18 10:30 Dose: 200 mg Calcium Acetate (Phoslo) 667 mg PO TID [facility] Last Admin: 02/05/18 10:30 Dose: 667 mg Carvedilol (Coreg) 25 mg PO BID [facility] Last Admin: 02/05/18 10:31 Dose: 25 mg Dextrose (Dextrose 50% Inj) 25 ml IV STAT PRN; Protocol PRN Reason: Hypoglycemia Protocol Docusate Sodium (Colace) 100 mg PO TID [facility] Last Admin: 02/05/18 10:30 Dose: 100 mg Donepezil HCl (Aricept) 10 mg PO HS [facility] Last Admin: 02/04/18 22:41 Dose: 10 mg Doxazosin Mesylate (Cardura) 2 mg PO BID [facility] Last Admin: 02/05/18 10:31 Dose: 2 mg Gabapentin (Neurontin) 100 mg PO HS [facility]; Protocol Last Admin: 02/04/18 22:41 Dose: 100 mg Hydralazine HCl (Apresoline) 50 mg PO 0700,1800 [facility] Last Admin: 02/05/18 10:31 Dose: 50 mg Dextrose (Dextrose 5% In Water 1000 Ml) 1,000 mls @ 0 mls/hr IV .Q0M PRN; Baljit col PRN Reason: Hypoglycemia Protocol Insulin Human Regular (Humulin R Med) 0 units SC ACHS [facility]; Protocol Last Admin: 02/05/18 08:00 Dose: Not Given Levalbuterol HCl (Xopenex) 0.63 mg IH [id number] [facility] Last Admin: 02/05/18 07:21 Dose: 0.63 mg Lidocaine (Lidoderm) 1 ea TD DAILY [facility] Last Admin: 02/05/18 10:40 Dose: 1 ea Losartan Potassium (Cozaar) 100 mg PO DAILY [facility] Last Admin: 02/05/18 10:35 Dose: 100 mg Memantine (Namenda) 5 mg PO BID [facility] Last Admin: 02/05/18 10:31 Dose: 5 mg Xsirx-6-Xtmr Ethyl Esters (Lovaza) 1 gm PO BID [facility] Last Admin: 02/05/18 10:29 Dose: 1 gm Ondansetron HCl (Zofran Inj) 4 mg IVP Q4H PRN PRN Reason: Nausea/Vomiting Pantoprazole Sodium (Protonix Ec Tab) 40 mg PO 0600 [facility] Last Admin: 02/05/18 05:56 Dose: 40 mg Tamsulosin HCl (Flomax) 0.4 mg PO DAILY [facility] Last Admin: 02/05/18 10:36 Dose: 0.4 mg Tramadol HCl (Ultram) 50 mg PO TID PRN PRN Reason: Pain, moderate (4-7) Last Admin: 02/03/18 10:31 Dose: 50 mg - Labs Labs: 02/02/18 10:00 02/02/18 10:00 PT 12.9 SECONDS (9.4-12.5) H 02/02/18 10:00 INR 1.12 02/02/18 10:00 APTT 37.0 Seconds (25.1-36.5) H 02/02/18 10:00 Attending/Attestation - Attestation I have personally seen and examined this patient.: Yes I have fully participated in the care of the patient.: Yes I have reviewed all pertinent clinical information, including history, physical exam and plan: Yes
--- NOTE | 2018-02-02 15:24 | CP.PCM.PN ---
Subjective - Date & Time of Evaluation Date of Evaluation: 02/02/18 Time of Evaluation: 14:40 - Subjective Subjective: No fevers, not in distress. Objective - Vital Signs/Intake and Output Vital Signs (last 24 hours): Temp Pulse Resp BP Pulse Ox 97.9 F 82 18 150/88 98 02/02/18 06:00 02/02/18 06:00 02/02/18 06:00 02/02/18 09:27 02/02/18 06:00 Intake and Output: 02/02/18 02/02/18 06:59 18:59 Intake Total 360 Balance 360 - Medications Medications: Current Medications Acetaminophen (Tylenol 325mg Tab) 650 mg PO Q6 PRN PRN Reason: TEMP>=99.5F Last Admin: 01/29/18 21:21 Dose: 650 mg Acetaminophen (Tylenol 650 Mg Supp) 650 mg RC Q6H PRN PRN Reason: TEMP>=99.5F Amlodipine Besylate (Norvasc) 10 mg PO DAILY [facility] Last Admin: 02/02/18 09:27 Dose: 10 mg Aspirin (Aspirin) 325 mg PO DAILY [facility] Last Admin: 02/01/18 10:19 Dose: Not Given Atorvastatin Calcium (Lipitor) 40 mg PO [facility] Last Admin: 02/01/18 22:03 Dose: 40 mg Benzonatate (Tessalon Perles) 200 mg PO TID [facility] Last Admin: 02/02/18 09:27 Dose: 200 mg Calcium Acetate (Phoslo) 667 mg PO TID [facility] Last Admin: 02/02/18 09:30 Dose: 667 mg Carvedilol (Coreg) 25 mg PO BID [facility] Last Admin: 02/01/18 17:15 Dose: 25 mg Dextrose (Dextrose 50% Inj) 25 ml IV STAT PRN; Protocol PRN Reason: Hypoglycemia Protocol Docusate Sodium (Colace) 100 mg PO TID [facility] Last Admin: 02/02/18 09:27 Dose: 100 mg Donepezil HCl (Aricept) 10 mg PO [facility] Last Admin: 02/01/18 22:03 Dose: 10 mg Doxazosin Mesylate (Cardura) 2 mg PO BID [facility] Last Admin: 02/02/18 09:27 Dose: 2 mg Gabapentin (Neurontin) 100 mg PO [facility]; Protocol Last Admin: 02/01/18 22:03 Dose: 100 mg Hydralazine HCl (Apresoline) 100 mg PO BID [facility] Last Admin: 02/02/18 09:27 Dose: 100 mg Dextrose (Dextrose 5% In Water 1000 Ml) 1,000 mls @ 0 mls/hr IV .Q0M PRN; Protocol PRN Reason: Hypoglycemia Protocol Meropenem 250 mg/ Sodium (Chloride) 100 mls @ 100 mls/hr IVPB Q12H [facility]; Protocol Stop: 02/08/18 19:31 Last Admin: 02/02/18 09:28 Dose: 100 mls/hr Insulin Human Regular (Humulin R Med) 0 units SC ACHS [facility]; Protocol Last Admin: 02/02/18 08:00 Dose: Not Given Levalbuterol HCl (Xopenex) 0.63 mg IH [id number] [facility] Last Admin: 02/02/18 09:21 Dose: 0.63 mg Lidocaine (Lidoderm) 1 ea TD DAILY [facility] Losartan Potassium (Cozaar) 100 mg PO DAILY [facility] Last Admin: 02/02/18 09:27 Dose: 100 mg Memantine (Namenda) 5 mg PO BID [facility] Last Admin: 02/02/18 09:27 Dose: 5 mg Onaiw-4-Opkf Ethyl Esters (Lovaza) 1 gm PO BID [facility] Last Admin: 02/02/18 09:29 Dose: 1 gm Ondansetron HCl (Zofran Inj) 4 mg IVP Q4H PRN PRN Reason: Nausea/Vomiting Pantoprazole Sodium (Protonix Ec Tab) 40 mg PO 0600 [facility] Last Admin: 02/02/18 05:51 Dose: 40 mg Tamsulosin HCl (Flomax) 0.4 mg PO DAILY [facility] Last Admin: 02/02/18 09:29 Dose: 0.4 mg Tramadol HCl (Ultram) 50 mg PO TID PRN PRN Reason: Pain, moderate (4-7) Last Admin: 02/01/18 17:22 Dose: 50 mg - Labs Labs: 02/02/18 10:00 02/02/18 10:00 PT 12.9 SECONDS (9.4-12.5) H 02/02/18 10:00 INR 1.12 02/02/18 10:00 APTT 37.0 Seconds (25.1-36.5) H 02/02/18 10:00 - Constitutional Appears: Chronically Ill - Head Exam Head Exam: NORMAL INSPECTION - Respiratory Exam Respiratory Exam: Decreased Breath Sounds - Cardiovascular Exam Cardiovascular Exam: +S1, +S2 - GI/Abdominal Exam GI & Abdominal Exam: Soft. absent: Tenderness Assessment and Plan - Assessment and Plan (Free Text) Plan: Assessment consider dry gangrene of the left foot toes with MSSA and Enterobacter in this patient with peripheral arterial disease S/P left fifth digit amputation history of severe sepsis due to left foot cellulitis with left 5th toe gangrene and clinical osteomyelitis history of severe sepsis due to healthcare-associated pneumonia as well as epiglottitis with oropahryngeal candidiasis ESRD on HD DM HTN morbid obesity with BMI 41 dyslipidemia COPD cataracts chronic low back pain Plan continue Merrem day 10 and follow up OR cultures and pathology will continue to monitor clinically
[2018-02-02] MEDS: Lidocaine 5% Patch TD SCH (15:50)
[2018-02-03] MEDS: Levalbuterol 0.63 MG/3 ML Inhal Soln UD IH SCH ×4 (03:30→19:57)
[2018-02-03] MEDS: Pantoprazole 40 mg EC Tab PO SCH (05:48)
[2018-02-03] MEDS: Omega-3-Acid Ethyl Esters 1 GM Cap PO SCH ×2 (10:31→17:52)
[2018-02-03] MEDS: Insulin Reg-MEDIUM-Coverage SC SCH ×2 (10:32→17:21)
[2018-02-03] MEDS: Lidocaine 5% Patch TD SCH (10:34)
--- NOTE | 2018-02-03 15:40 | PN ---
DATE: 02/03/2018 SUBJECTIVE: The patient is seen lying in bed. He is awake. He is alert. He is resting in bed. PHYSICAL EXAMINATION VITAL SIGNS: Blood pressure 123/50, heart rate 69, respiratory rate 18, temperature 97.9. HEENT: Normocephalic, atraumatic, positive pallor. NECK: Supple, no JVD. LUNGS: Bilateral equal air entry, bilateral equal expansion, no rales. CARDIAC: S1 and S2, regular rate and rhythm, no murmur, no rub. ABDOMEN: Obese, distended, soft, nontender, bowel sounds present. EXTREMITIES: Dressing of the left foot. LABORATORY DATA: Hemoglobin 9.9. Sodium 139, potassium 3.7, chloride 98, CO2 of 29, BUN 37, creatinine 5.6, glucose 176, calcium 8.6, phosphorus 4.9, magnesium 1.9, albumin 3.2. MEDICATIONS: List reviewed including hydralazine 100 b.i.d., Aricept, aspirin, Cardura 2 mg b.i.d., Colace, Carvedilol 25 b.i.d., losartan 100, Flomax, insulin, Lidoderm, Lipitor, omega-3, meropenem 250 every 12 hours, Namenda, Neurontin, amlodipine 10, PhosLo, Protonix, Tessalon Perles, Ultram, Zofran. ASSESSMENT: 1. Peripheral vascular disease. 2. Status post amputation of left fifth toe. 3. Non-insulin dependant diabetes mellitus. 4. Hypertension. 5. End-stage renal disease. 6. Anemia of chronic kidney disease. PLAN: 1. Dialysis tomorrow. 2. Continue antibiotics. 3. Physical therapy. 4. Continue phosphate binders. 5. Renal diet. Yadira Fox MD
--- NOTE | 2018-02-04 01:51 | PN ---
DATE: 02/03/2018 SUBJECTIVE: The patient is seen lying in the bed in room 561, bed 1. The patient's is at bedside. Overnight nurse's notes were reviewed. The patient overnight was found to be calm and controlled. The patient was resting comfortably without any adverse events documented. PHYSICAL EXAMINATION: VITAL SIGNS: T-max is 98.9 degrees. Heart rate is 66, 82, 69, 68; blood pressure 123/50, 128/56, 123/50, 123/50, 150/88; respirations 20; O2 sat is 94%, 95%, 98%, 92%. Intake/output not documented. HEENT: Head examination normocephalic, atraumatic. HEENT examination shows pinkish, pale conjunctivae. Anicteric sclerae. No oropharyngeal lesion. No neck rigidity. CHEST: Kyphosis. Positive upper chest pacemaker noted. Positive kyphosis. Positive occasional rhonchi, upper lung [place] anteriorly. CARDIOVASCULAR: S1, S2. Regular rhythm. Positive systolic murmur, left sternal border, right second intercostal space, left second intercostal space. ABDOMEN: Soft, protuberant, obese. Positive bowel sound. No hepatosplenomegaly palpable. No organomegaly palpable. GENITALIA: Male. RECTAL: Deferred. EXTREMITIES: Lower extremity shows no pitting edema, no calf tenderness, no Homans' sign. Positive left upper extremity AV fistula, positive thrill. MUSCULOSKELETAL: Shows a body mass index of 41.3. NEUROLOGICAL: The patient is alert, awake, responsive, is able to move upper and lower extremity without assistance. Gait examination is not tested. LABORATORY DATA: The patient did not get any lab drawn today despite my orders. IMPRESSION AND PLAN: 1. Episodic hypotension. 2. Enterobacter cloacae and Staphylococcus aureus left foot diabetic foot ulceration. 3. Left foot toe methicillin-sensitive Staphylococcus aureus and Enterobacter cloacae left foot toe dry gangrene, diabetic foot ulceration. 4. Severe peripheral vascular disease of the lower extremity with status post left peroneal artery atherectomy and balloon angioplasty and left anterior tibial artery angioplasty. 5. Severe peripheral vascular disease with left foot gangrene. 6. End-stage renal disease, hemodialysis dependent. 7. Severe left pedal occlusive disease. 8. Delirium. 9. History of hypertension with episodic hypotension. 10. Normocytic anemia. 11. Anemia of chronic kidney disease. 12. Status post packed red blood cell transfusion x2. 13. Elevated erythrocyte sedimentation rate. 14. Insulin-requiring diabetes mellitus with hemoglobin A1c of 6 with hyperglycemia. 15. End-stage renal disease, hemodialysis dependent. 16. Secondary hyperparathyroidism with elevated PTH. 17. Status post packed red blood cell transfusion x2. 18. Deconditioning. 19. Gait dysfunction. 20. Pulmonary hypertension with right ventricular systolic pressure of 54 mmHg and tricuspid regurgitation. 21. Left ventricular hypertrophy with left ventricle ejection fraction of 56%. 22. Grade 1 abnormal relaxation pattern. 23. Moderately dilated right and left atrium. 24. Mildly sclerotic aortic valve. 25. Moderate mitral annular calcification with mild mitral regurgitation. 26. Mild pulmonic regurgitation. 27. Status post left fifth toe and digit amputation. 1. Status post persistent refractory hypotension, etiology undetermined. 2. History of hypertension. 3. History of dementia and delirium. 4. Left foot toes methicillin-sensitive Staphylococcus aureus and Enterobacter cloacae. Left foot toes gangrene and diabetic foot ulceration. 5. Hypertension. 6. Normocytic anemia, status post packed red blood cell transfusion x2. 7. Elevated erythrocyte sedimentation rate of 57. 8. End-stage renal disease, hemodialysis dependent three times a week via the left upper extremity fistula. 9. Elevated C-reactive protein of greater than 15. 10. Status post left fifth toe amputation. 11. Permanent pacemaker implant. 12. Status post left peroneal artery atherectomy and balloon angioplasty and left tibial artery angioplasty. 13. Severe left pedal occlusive disease. 14. Moderate oropharyngeal dysphagia (resolved or resolving). 1. Postoperative left foot, left toe pain. 2. Status post left hip toe amputation, left hip toe diabetic foot ulcer and gangrene. 3. Severe peripheral vascular disease. 4. Hypertension. 5. Status post hypotension. 6. Hypoxemia. 7. Tachypnea. 8. Severe deconditioning and gait dysfunction. 9. Left fifth toe Enterobacter cloacae and Staphylococcus aureus diabetic foot ulceration and gangrene. 10. Peripheral vascular disease. 11. Normocytic anemia and anemia of chronic kidney disease. 12. Status post packed red blood cell transfusion. 13. End stage renal disease, hemodialysis dependent via the left upper extremity arteriovenous fistula three times a week. 14. Elevated C-reactive protein. 15. Secondary hyperparathyroidism with elevated parathyroid hormone and hyperphosphatemia. 16. Proteinuria, glycosuria, microscopic hematuria, pyuria, bacteruria. 17. Status post two units of packed red blood cells transfusion. 18. Permanent pacemaker implant. 19. Left foot toes dry gangrene with methicillin sensitive Staphylococcus aureus and Enterobacter cloacae. 20. None at this time. 21. [id number] oropharyngeal dysphagia. 1. Status post left fifth toe amputation. 2. Severe peripheral vascular disease, status post angioplasty of the left lower extremity. 3. Delirium. 4. Encephalopathy with episodic confusional state. 5. Status post hypotension. 6. Systemic inflammatory response syndrome. 7. Normocytic anemia. 8. Status post packed red blood cell transfusion. 9. Left foot diabetic ulceration secondary to severe peripheral vascular disease. 10. Gait dysfunction. 11. Deconditioning. 12. History of hypertension. 13. Status post permanent pacemaker implant. 14. Pulmonary hypertension. 15. Dementia. 16. History of dementia. 17. History of hypertension, hyperlipidemia, hypertriglyceridemia. 18. History of prostate hypertrophy. 19. End-stage renal disease, hemodialysis dependent three times a week via the left upper extremity AV fistula. 1. 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 2. Poor compliance. 3. Intermittent confusional state. 4. Severe peripheral vascular disease of the lower extremity. 5. Transient delirium. 6. Cerebellar and cerebral cortical atrophy. 7 Periventricular small-vessel ischemic disease of the brain. 8. Chronic ethmoid and maxillary sinusitis. 9. Moderate oropharyngeal dysphagia. 10. Hypertension. 11. Status post hypotension. 12. Normocytic anemia with decreasing hemoglobin and hematocrit. 13. Elevated erythrocyte sedimentation rate. 14. End-stage renal disease, hemodialysis dependent three times a week via the left upper extremity AV fistula. 15. Enterobacter cloacae and Staphylococcus aureus, left foot diabetic foot ulceration and left fifth toe gangrenous diabetic foot ulceration. 16. Permanent pacemaker implant. 1. Status post hypotension. 2. Left foot Enterobacter cloacae and Staphylococcus aureus diabetic foot ulceration versus osteomyelitis versus diabetic foot ulceration. 3. Left fifth toe gangrenous diabetic foot ulceration. 4. Peripheral vascular disease. 5. Bilateral lower extremity peripheral vascular disease with bilateral severe tibial occlusive disease, left more than the right. 6. Chronic fracture of the base of the fifth proximal phalanx with distal phalanx erosion. 7. Possible hypotensive versus questionable septic shock with hypotension. 8. End-stage renal disease, hemodialysis dependent three times a week via the left upper extremity AV fistula. 9. Peripheral vascular disease. 10. Transient hypoxemia. 11. Normocytic anemia. 12. Elevated erythrocyte sedimentation rate. 13. Granulocytosis. 14. Elevated C-reactive protein of greater than 15. 15. Secondary hyperparathyroidism. 16. Insulin-requiring diabetes mellitus with hemoglobin A1c of 6. 17. Proteinuria, glycosuria, microscopic hematuria, pyuria, bacteriuria. 18. Status post successful left peroneal artery atherectomy and balloon angioplasty and successful left anterior tibial artery angioplasty with severe left pedal occlusive disease. 19. Concentric left ventricular hypertrophy with grade 1 abnormal relaxation pattern. 20. Moderately dilated left and right atrium. 21. Permanent pacemaker implant. 22. Moderate mitral annular calcification. 23. Moderate pulmonary hypertension with right ventricular systolic pressure of 54 mmHg. 24. Gait dysfunction. 25. Deconditioning. 26. Constipation. 1. Status post hypotension. 2. End-stage renal disease, hemodialysis dependent. 3. Severe peripheral vascular disease, status post angioplasty. 4. Left foot diabetic nonhealing ulcer with history of osteomyelitis. 5. Status post hypotension versus shock. 6. Systemic inflammatory response syndrome. 7. Methicillin-sensitive Staphylococcus aureus and Enterobacter cloacae, dry gangrene of the left foot toes. 8. Deconditioning. 9. Gait dysfunction. 10. Moderate oropharyngeal dysphagia with moderate risk for aspiration. 11. Insulin-requiring diabetes mellitus with hemoglobin A1c of 6. 12. Pulmonary hypertension with right ventricular systolic pressure of 54 mmHg. 13. Left ventricular hypertrophy of 56%. 14. Grade 1 abnormal relaxation pattern. 15. Moderately dilated left and right atrium. 16. Mildly sclerotic aortic valve. 17. Moderate mitral annular calcification. 18. Mild tricuspid and mild mitral regurgitation. 19. Left peroneal artery atherectomy and balloon angioplasty. 20. Left anterior tibial artery angioplasty. 1. Systemic inflammatory response syndrome with hypotension. 2. Severe peripheral vascular disease. 3. Left fifth toe osteomyelitis with Enterobacter cloacae and Staphylococcus aureus on left fifth toe osteomyelitis. 4. Status post hypotension. 5. Tachypnea. 6. Hypoxemia. 7. Normocytic anemia with granulocytosis and elevated C-reactive protein. 8. End-stage renal disease, hemodialysis dependent three times a week via the left upper extremity arteriovenous fistula. 9. Elevated C-reactive protein. 10. Insulin-requiring diabetes mellitus with hemoglobin A1c of 6. 11. Elevated C-reactive protein of greater than 15. 12. Diastolic right-sided congestive heart failure with elevated right ventricular systolic pressure of 54 mmHg. 13. Left ventricular ejection fraction of 56%. 14. Grade 1 abnormal relaxation pattern. 15. Moderately dilated left and right atrium. 16. Mildly sclerotic aortic valve. 17. Moderate mitral annular calcification. 18. Mild mitral regurgitation. 19. Mild tricuspid regurgitation with moderate pulmonary hypertension and right ventricular systolic pressure of 54 mmHg with right-sided diastolic congestive heart failure. 20. Left foot base of the fifth proximal phalanx chronic fracture. 21. Extensive emphysema. 22. Right lower lobe consolidation, atelectasis with small pleural effusion. 23. Mitral valve calcification. 24. Status post abdominal aortogram and bilateral lower extremity runoff with left selective view. 25. Status post left peroneal artery atherectomy and balloon angioplasty. 26. Left anterior tibial artery angioplasty. 27. Severe peripheral vascular disease. 28. Left foot osteomyelitis and gangrene. 29. End-stage renal disease. 30. Deconditioning. 31. Gait dysfunction. 32. Left foot fifth digit gangrenous osteomyelitis. 33. Right upper extremity swelling, etiology undetermined. 34. [id number] oropharyngeal dysphagia with moderate risk for aspiration due to missing upper full dentures. Immediate cough with bite size and mixed consistency solid, liquid food with delayed swallowing initiation and slow oral transit. 1. Systemic inflammatory response syndrome. 2. Left foot toes osteomyelitis secondary to Enterobacter cloacae and Staphylococcus aureus, left foot toe diabetic ulceration and osteomyelitis. 3. Status post hypotension. 4. Hypertension. 5. Elevated erythrocyte sedimentation rate of 57. 6. Anemia of chronic disease. 7. Hypocalcemia. 9. Insulin-requiring diabetes mellitus with hemoglobin A1c of 6. 10. Hyperphosphatemia. 11. Elevated C-reactive protein. 12. Gait dysfunction. 13. Deconditioning. 14. End-stage renal disease, hemodialysis dependent via the left upper extremity AV fistula. 15. Proteinuria, glycosuria, microscopic hematuria, pyuria, bacteriuria. 1. Status post severe symptomatic hypotension. 2. Severe peripheral vascular disease with bilateral tibial occlusive disease, status post angiogram. status post left tibial artery angioplasty, left peroneal artery angioplasty. 3. End-stage renal disease, hemodialysis dependent. 4. Tachypnea. 5. Normocytic anemia with granulocytosis 6. Elevated erythrocyte sedimentation rate of 57. 7. Hypocalcemia, hyperphosphatemia. 8. Elevated C-reactive protein of greater than 15. 9. Secondary hyperparathyroidism. 10. Well-controlled insulin-requiring diabetes mellitus with hemoglobin A1c of 6. 11. Left foot and left lower extremity gram-negative hailey, gram-positive cocci, left foot, left lower extremity cellulitis, diabetic ulceration and possible osteomyelitis. 12. Status post abdominal aortogram, bilateral lower extremity runoff with non-selective view. 13. Status post left peroneal artery atherectomy and balloon angioplasty. 14. Left anterior tibial artery angioplasty. 15. Severe left lower extremity pedal occlusive disease. 16. Deconditioning. 17. Gait dysfunction. 18. Poor intravenous access. 19. Upper lobe extensive emphysema with right lower lobe consolidation with effusion. 20. Mitral valve calcification. 21. Left fifth proximal phalanx chronic fracture of the base. 22. Left foot third toe amputation. 23. Left ventricle ejection fraction of 55% with pulmonary hypertension and right ventricular systolic pressure of 54 mmHg. 24. Concentric left ventricular hypertrophy with grade 1 abnormal relaxation pattern. 25. Permanent pacemaker implant. 26. Moderately dilated right and left atrium. 27. Mild aortic valve sclerosis. 28. Moderate mitral annular calcification with mild mitral regurgitation. 29. Mild tricuspid regurgitation with moderate pulmonary hypertension with right ventricular systolic pressure of 54 mmHg. 30. Anemia of chronic disease. 31. Left fifth digit gangrene and diabetic ulceration and gangrene. 32. Chronic obstructive pulmonary disease. 33. Poor intravenous access. 34. Systemic inflammatory response syndrome. 35. Hypotension probably secondary to over hemodialysis. 36. Left fifth toe necrotic. 1. Severe symptomatic hypotension. 2. Left foot osteomyelitis, status post intravenous antibiotic treatment. 3. Tachypnea. 4. Hypoxemia. 5. Normocytic anemia. 6. Granulocytosis. 7. Elevated erythrocyte sedimentation rate of 57. 8. End-stage renal disease, hemodialysis dependent three times a week via left upper extremity arteriovenous fistula. 9. Hyperphosphatemia and secondary hyperparathyroidism. 10. Elevated C-reactive protein of greater than 15. 11. Questionable congestive heart failure with elevated BNP versus volume overload and fluid overload. 12. 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 13. Bilateral lower extremity peripheral arterial disease with bilateral tibial occlusive disease, left greater than the right. 14. Bilateral lower extremity venous stasis. 15. Questionable congestive heart failure with pulmonary vascular congestion and cardiomegaly. 16. Insulin-requiring diabetes mellitus. 17. Permanent pacemaker implant. 18. Left foot fifth toe diabetic ulceration versus osteomyelitis. 19. Left foot fifth digit gangrene and gangrenous ulcer. 20. Severe peripheral vascular disease. 21. Secondary hyperparathyroidism. 22. History of hypertension, chronic obstructive pulmonary disease. 23. History of questionable poor healing left foot diabetic ulceration and gangrenous diabetic ulceration and osteomyelitis. 24. Status post left foot third toe amputation. 25. Severe emphysema of the upper lobes and right lower lobe atelectasis, consolidation and small pleural effusion. 26. Mitral valve calcification. 27. Deconditioning. 28. Constipation. 1. History of left foot osteomyelitis, status post intravenous antibiotic treatment. 2. End-stage renal disease, hemodialysis dependent. 3. History of hypertension. 4. Persistent refractory hypotension, etiology undetermined. 5. Hypoxemia. 6. Normocytic anemia with granulocytosis. 7. Elevated BNP, etiology undetermined. 8. Elevated C-reactive protein. 9. Peripheral vascular disease of the lower extremity. 10. Bilateral lower extremity venous stasis. 11. Gait dysfunction. 12. Deconditioning. 13. Cardiomegaly with mild pulmonary vascular congestion. 14. History of dementia. 15. History of permanent pacemaker implant. 16. History of prostatic hypertrophy, history of hypertriglyceridemia, history of secondary hyperparathyroidism. 17. Insulin-requiring diabetes mellitus. 18. Sick sinus syndrome. 19. History of left foot toe amputation. 20. Diabetic foot ulcer. 21. Left upper extremity arteriovenous fistula. 22. Left hand finger amputation. 23. History of nicotine dependence. 24. Sepsis. 25. Pneumonia. 26. Pulmonary hypertension with moderate concentric left ventricular hypertrophy. 27. Moderate mitral annular calcification. 28. Moderate pulmonary hypertension with right ventricular systolic pressure of 53 mmHg. 29. History of respiratory failure. 30. Oropharyngeal candidiasis. 31. Macroglossia. 32. Hypovitaminosis D. 33. History of sepsis secondary to healthcare-associated pneumonia, epiglottitis, and oropharyngeal candidiasis. 34. Uncontrolled diabetes mellitus. 35. History of BiPAP-requiring respiratory failure. 36. Obesity. 37. Hyperprocalcitoninemia . 38. Sinusitis. 39. History of chronic obstructive pulmonary disease exacerbation. 40. 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 41. Pulmonary emphysema. Plan at this time, the patient has been ordered hemodialysis for tomorrow. The patient's current consultation, Cardiology, Infectious Disease, Nephrology, Podiatry, Interventional Radiology, Neurology, Psychiatry. Referral to Clinical Research Technician, public health educator, TCU. The patient's medications have been revised. Hydralazine is decreased to 50 mg twice a day for episodic hypotension noted in the last 12-24 hours, Aricept 10 mg at bedtime, aspirin 325 mg daily, Cardura 2 mg twice a day, Colace 100 mg three times a day, Coreg 25 mg twice a day, Cozaar 100 mg daily, Flomax 0.4 mg daily, Humulin medium-dose sliding scale coverage before meals and at bedtime, Lidoderm 5% patch to the affected area of pain, Lipitor 40 mg daily, Lovaza 1 g twice a day, meropenem 250 mg IV every 12, Namenda 5 mg twice a day, Neurontin 100 mg at bedtime, Norvasc 10 mg daily, PhosLo 667 mg three times a day, Protonix 40 mg daily, Tessalon Perles 200 three times a day, Tylenol 650 mg p.o. suppository every 6 p.r.n., Ultram 50 mg t.i.d. p.r.n., Xopenex nebulizer 0.63 mg every 6 hours, Zofran 4 mg IV every 4 p.r.n. Chest PT, oxygen nasal cannula, altered GI diet, out of bed, physical therapy, occupational therapy all ordered. The patient has been ordered out of bed to chair. The patient has been ordered occupational therapy, physical therapy. At present, the patient was seen by therapist. Their impression was moderate oropharyngeal dysphagia. The patient was followed up by the speech therapist. The patient was seen by physical therapist. Recommendation by physical therapy is to continue PT, subacute rehab. The patient has not been seen by physical therapist since 02/01/2018. The patient was only seen by physical therapy on 01/28/2018 and 02/01/2018. After that, there is no physical therapy evaluation and treatment. At present, the patient was seen by the social problems specialist. I have spoken to the patient's and the patient today at length. At present, we are waiting for the patient's disposition to appropriate level of care if the patient accepted to TCU versus the patient accepted to subacute rehab. At present, the patient's IV antibiotic duration will be determined by the cultures which are done at the time of the amputation of the left fifth toe, which is still pending. Dictated and electronically signed, not read. Oleg Whitman MD [facility]
[2018-02-04] MEDS: Insulin Reg-MEDIUM-Coverage SC SCH ×5 (02:17→22:20)
[2018-02-04] MEDS: Levalbuterol 0.63 MG/3 ML Inhal Soln UD IH SCH ×5 (04:50→20:41)
[2018-02-04] MEDS: Pantoprazole 40 mg EC Tab PO SCH (05:54)
[2018-02-04] MEDS ORDERED: Darbepoetin Alfa 40 mcg/ml Inj IVP ONE (06:00)
--- NOTE | 2018-02-04 08:23 | PN ---
DATE: 02/01/2018 SUBJECTIVE: Patient is seen in dialysis. Patient was lying in the bed. Patient is complaining of left foot pain, post surgery pain. Patient denies any chest pain or shortness of breath. Denies any nausea, vomiting, diarrhea or constipation. Denies hemoptysis, hematemesis, melena. Patient was seen lying in the stretcher. Patient was comfortable, alert, awake, responsive. Overnight nurses notes were reviewed. PHYSICAL EXAMINATION: VITAL SIGNS: T-max is 98.4, 99 yesterday; heart rate is 76, 68, 65, 78; blood pressure is , 182/56; respirations 18; O2 sat is 93 to 96 to 98%. HEENT: Head examination normocephalic, atraumatic. HEENT examination shows pinkish pale conjunctivae. Anicteric sclerae. No oropharyngeal lesion. No neck rigidity. CHEST: Kyphosis. Positive upper chest pacemaker. LUNGS: Positive rhonchi upper lung [place], questionable decreased breath sounds at the bases. Left more than the right. CARDIOVASCULAR: S1, S2, regular rhythm. ABDOMEN: Soft, slightly protuberant. GENITALIA: Male. RECTAL: Deferred. EXTREMITIES: Positive left upper dressing. MUSCULOSKELETAL: Body mass index is 41.3. NEUROLOGIC: The patient is alert, awake, responsive, was able to move upper and lower extremities without assistance. Gait examination is not tested. DIAGNOSTICS: 02/01/2018, WBC 5.5, hemoglobin and hematocrit 8.4 and 27.2, platelet 153. PT and PTT 13 and 35.8. Sodium 142, potassium 3.9, chloride 105, CO2 28, anion gap 14, BUN 50, creatinine 7.3, GFR 7, glucose 111, 117, 97, 104, 152, 175; calcium 8.4, phosphorus 5. Magnesium 1.8. LFTs are within normal limits. Left foot cultures are growing Staphylococcus aureus and Enterobacter cloacae. Patient has been transfused 2 units of PRBC in the last few days. IMPRESSION: 1. Postoperative left foot, left toe pain. 2. Status post left hip toe amputation, left hip toe diabetic foot ulcer and gangrene. 3. Severe peripheral vascular disease. 4. Hypertension. 5. Status post hypotension. 6. Hypoxemia. 7. Tachypnea. 8. Severe deconditioning and gait dysfunction. 9. Left fifth toe Enterobacter cloacae and Staphylococcus aureus diabetic foot ulceration and gangrene. 10. Peripheral vascular disease. 11. Normocytic anemia and anemia of chronic kidney disease. 12. Status post packed red blood cell transfusion. 13. End stage renal disease, hemodialysis dependent via the left upper extremity arteriovenous fistula three times a week. 14. Elevated C-reactive protein. 15. Secondary hyperparathyroidism with elevated parathyroid hormone and hyperphosphatemia. 16. Proteinuria, glycosuria, microscopic hematuria, pyuria, bacteruria. 17. Status post two units of packed red blood cells transfusion. 18. Permanent pacemaker implant. 19. Left foot toes dry gangrene with methicillin sensitive Staphylococcus aureus and Enterobacter cloacae. 20. None at this time. 21. [id number] oropharyngeal dysphagia. 1. Status post left fifth toe amputation. 2. Severe peripheral vascular disease, status post angioplasty of the left lower extremity. 3. Delirium. 4. Encephalopathy with episodic confusional state. 5. Status post hypotension. 6. Systemic inflammatory response syndrome. 7. Normocytic anemia. 8. Status post packed red blood cell transfusion. 9. Left foot diabetic ulceration secondary to severe peripheral vascular disease. 10. Gait dysfunction. 11. Deconditioning. 12. History of hypertension. 13. Status post permanent pacemaker implant. 14. Pulmonary hypertension. 15. Dementia. 16. History of dementia. 17. History of hypertension, hyperlipidemia, hypertriglyceridemia. 18. History of prostate hypertrophy. 19. End-stage renal disease, hemodialysis dependent three times a week via the left upper extremity AV fistula. 1. 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 2. Poor compliance. 3. Intermittent confusional state. 4. Severe peripheral vascular disease of the lower extremity. 5. Transient delirium. 6. Cerebellar and cerebral cortical atrophy. 7 Periventricular small-vessel ischemic disease of the brain. 8. Chronic ethmoid and maxillary sinusitis. 9. Moderate oropharyngeal dysphagia. 10. Hypertension. 11. Status post hypotension. 12. Normocytic anemia with decreasing hemoglobin and hematocrit. 13. Elevated erythrocyte sedimentation rate. 14. End-stage renal disease, hemodialysis dependent three times a week via the left upper extremity AV fistula. 15. Enterobacter cloacae and Staphylococcus aureus, left foot diabetic foot ulceration and left fifth toe gangrenous diabetic foot ulceration. 16. Permanent pacemaker implant. 1. Status post hypotension. 2. Left foot Enterobacter cloacae and Staphylococcus aureus diabetic foot ulceration versus osteomyelitis versus diabetic foot ulceration. 3. Left fifth toe gangrenous diabetic foot ulceration. 4. Peripheral vascular disease. 5. Bilateral lower extremity peripheral vascular disease with bilateral severe tibial occlusive disease, left more than the right. 6. Chronic fracture of the base of the fifth proximal phalanx with distal phalanx erosion. 7. Possible hypotensive versus questionable septic shock with hypotension. 8. End-stage renal disease, hemodialysis dependent three times a week via the left upper extremity AV fistula. 9. Peripheral vascular disease. 10. Transient hypoxemia. 11. Normocytic anemia. 12. Elevated erythrocyte sedimentation rate. 13. Granulocytosis. 14. Elevated C-reactive protein of greater than 15. 15. Secondary hyperparathyroidism. 16. Insulin-requiring diabetes mellitus with hemoglobin A1c of 6. 17. Proteinuria, glycosuria, microscopic hematuria, pyuria, bacteriuria. 18. Status post successful left peroneal artery atherectomy and balloon angioplasty and successful left anterior tibial artery angioplasty with severe left pedal occlusive disease. 19. Concentric left ventricular hypertrophy with grade 1 abnormal relaxation pattern. 20. Moderately dilated left and right atrium. 21. Permanent pacemaker implant. 22. Moderate mitral annular calcification. 23. Moderate pulmonary hypertension with right ventricular systolic pressure of 54 mmHg. 24. Gait dysfunction. 25. Deconditioning. 26. Constipation. 1. Status post hypotension. 2. End-stage renal disease, hemodialysis dependent. 3. Severe peripheral vascular disease, status post angioplasty. 4. Left foot diabetic nonhealing ulcer with history of osteomyelitis. 5. Status post hypotension versus shock. 6. Systemic inflammatory response syndrome. 7. Methicillin-sensitive Staphylococcus aureus and Enterobacter cloacae, dry gangrene of the left foot toes. 8. Deconditioning. 9. Gait dysfunction. 10. Moderate oropharyngeal dysphagia with moderate risk for aspiration. 11. Insulin-requiring diabetes mellitus with hemoglobin A1c of 6. 12. Pulmonary hypertension with right ventricular systolic pressure of 54 mmHg. 13. Left ventricular hypertrophy of 56%. 14. Grade 1 abnormal relaxation pattern. 15. Moderately dilated left and right atrium. 16. Mildly sclerotic aortic valve. 17. Moderate mitral annular calcification. 18. Mild tricuspid and mild mitral regurgitation. 19. Left peroneal artery atherectomy and balloon angioplasty. 20. Left anterior tibial artery angioplasty. 1. Systemic inflammatory response syndrome with hypotension. 2. Severe peripheral vascular disease. 3. Left fifth toe osteomyelitis with Enterobacter cloacae and Staphylococcus aureus on left fifth toe osteomyelitis. 4. Status post hypotension. 5. Tachypnea. 6. Hypoxemia. 7. Normocytic anemia with granulocytosis and elevated C-reactive protein. 8. End-stage renal disease, hemodialysis dependent three times a week via the left upper extremity arteriovenous fistula. 9. Elevated C-reactive protein. 10. Insulin-requiring diabetes mellitus with hemoglobin A1c of 6. 11. Elevated C-reactive protein of greater than 15. 12. Diastolic right-sided congestive heart failure with elevated right ventricular systolic pressure of 54 mmHg. 13. Left ventricular ejection fraction of 56%. 14. Grade 1 abnormal relaxation pattern. 15. Moderately dilated left and right atrium. 16. Mildly sclerotic aortic valve. 17. Moderate mitral annular calcification. 18. Mild mitral regurgitation. 19. Mild tricuspid regurgitation with moderate pulmonary hypertension and right ventricular systolic pressure of 54 mmHg with right-sided diastolic congestive heart failure. 20. Left foot base of the fifth proximal phalanx chronic fracture. 21. Extensive emphysema. 22. Right lower lobe consolidation, atelectasis with small pleural effusion. 23. Mitral valve calcification. 24. Status post abdominal aortogram and bilateral lower extremity runoff with left selective view. 25. Status post left peroneal artery atherectomy and balloon angioplasty. 26. Left anterior tibial artery angioplasty. 27. Severe peripheral vascular disease. 28. Left foot osteomyelitis and gangrene. 29. End-stage renal disease. 30. Deconditioning. 31. Gait dysfunction. 32. Left foot fifth digit gangrenous osteomyelitis. 33. Right upper extremity swelling, etiology undetermined. 34. [id number] oropharyngeal dysphagia with moderate risk for aspiration due to missing upper full dentures. Immediate cough with bite size and mixed consistency solid, liquid food with delayed swallowing initiation and slow oral transit. 1. Systemic inflammatory response syndrome. 2. Left foot toes osteomyelitis secondary to Enterobacter cloacae and Staphylococcus aureus, left foot toe diabetic ulceration and osteomyelitis. 3. Status post hypotension. 4. Hypertension. 5. Elevated erythrocyte sedimentation rate of 57. 6. Anemia of chronic disease. 7. Hypocalcemia. 9. Insulin-requiring diabetes mellitus with hemoglobin A1c of 6. 10. Hyperphosphatemia. 11. Elevated C-reactive protein. 12. Gait dysfunction. 13. Deconditioning. 14. End-stage renal disease, hemodialysis dependent via the left upper extremity AV fistula. 15. Proteinuria, glycosuria, microscopic hematuria, pyuria, bacteriuria. 1. Status post severe symptomatic hypotension. 2. Severe peripheral vascular disease with bilateral tibial occlusive disease, status post angiogram. status post left tibial artery angioplasty, left peroneal artery angioplasty. 3. End-stage renal disease, hemodialysis dependent. 4. Tachypnea. 5. Normocytic anemia with granulocytosis 6. Elevated erythrocyte sedimentation rate of 57. 7. Hypocalcemia, hyperphosphatemia. 8. Elevated C-reactive protein of greater than 15. 9. Secondary hyperparathyroidism. 10. Well-controlled insulin-requiring diabetes mellitus with hemoglobin A1c of 6. 11. Left foot and left lower extremity gram-negative hailey, gram-positive cocci, left foot, left lower extremity cellulitis, diabetic ulceration and possible osteomyelitis. 12. Status post abdominal aortogram, bilateral lower extremity runoff with non-selective view. 13. Status post left peroneal artery atherectomy and balloon angioplasty. 14. Left anterior tibial artery angioplasty. 15. Severe left lower extremity pedal occlusive disease. 16. Deconditioning. 17. Gait dysfunction. 18. Poor intravenous access. 19. Upper lobe extensive emphysema with right lower lobe consolidation with effusion. 20. Mitral valve calcification. 21. Left fifth proximal phalanx chronic fracture of the base. 22. Left foot third toe amputation. 23. Left ventricle ejection fraction of 55% with pulmonary hypertension and right ventricular systolic pressure of 54 mmHg. 24. Concentric left ventricular hypertrophy with grade 1 abnormal relaxation pattern. 25. Permanent pacemaker implant. 26. Moderately dilated right and left atrium. 27. Mild aortic valve sclerosis. 28. Moderate mitral annular calcification with mild mitral regurgitation. 29. Mild tricuspid regurgitation with moderate pulmonary hypertension with right ventricular systolic pressure of 54 mmHg. 30. Anemia of chronic disease. 31. Left fifth digit gangrene and diabetic ulceration and gangrene. 32. Chronic obstructive pulmonary disease. 33. Poor intravenous access. 34. Systemic inflammatory response syndrome. 35. Hypotension probably secondary to over hemodialysis. 36. Left fifth toe necrotic. 1. Severe symptomatic hypotension. 2. Left foot osteomyelitis, status post intravenous antibiotic treatment. 3. Tachypnea. 4. Hypoxemia. 5. Normocytic anemia. 6. Granulocytosis. 7. Elevated erythrocyte sedimentation rate of 57. 8. End-stage renal disease, hemodialysis dependent three times a week via left upper extremity arteriovenous fistula. 9. Hyperphosphatemia and secondary hyperparathyroidism. 10. Elevated C-reactive protein of greater than 15. 11. Questionable congestive heart failure with elevated BNP versus volume overload and fluid overload. 12. 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 13. Bilateral lower extremity peripheral arterial disease with bilateral tibial occlusive disease, left greater than the right. 14. Bilateral lower extremity venous stasis. 15. Questionable congestive heart failure with pulmonary vascular congestion and cardiomegaly. 16. Insulin-requiring diabetes mellitus. 17. Permanent pacemaker implant. 18. Left foot fifth toe diabetic ulceration versus osteomyelitis. 19. Left foot fifth digit gangrene and gangrenous ulcer. 20. Severe peripheral vascular disease. 21. Secondary hyperparathyroidism. 22. History of hypertension, chronic obstructive pulmonary disease. 23. History of questionable poor healing left foot diabetic ulceration and gangrenous diabetic ulceration and osteomyelitis. 24. Status post left foot third toe amputation. 25. Severe emphysema of the upper lobes and right lower lobe atelectasis, consolidation and small pleural effusion. 26. Mitral valve calcification. 27. Deconditioning. 28. Constipation. 1. History of left foot osteomyelitis, status post intravenous antibiotic treatment. 2. End-stage renal disease, hemodialysis dependent. 3. History of hypertension. 4. Persistent refractory hypotension, etiology undetermined. 5. Hypoxemia. 6. Normocytic anemia with granulocytosis. 7. Elevated BNP, etiology undetermined. 8. Elevated C-reactive protein. 9. Peripheral vascular disease of the lower extremity. 10. Bilateral lower extremity venous stasis. 11. Gait dysfunction. 12. Deconditioning. 13. Cardiomegaly with mild pulmonary vascular congestion. 14. History of dementia. 15. History of permanent pacemaker implant. 16. History of prostatic hypertrophy, history of hypertriglyceridemia, history of secondary hyperparathyroidism. 17. Insulin-requiring diabetes mellitus. 18. Sick sinus syndrome. 19. History of left foot toe amputation. 20. Diabetic foot ulcer. 21. Left upper extremity arteriovenous fistula. 22. Left hand finger amputation. 23. History of nicotine dependence. 24. Sepsis. 25. Pneumonia. 26. Pulmonary hypertension with moderate concentric left ventricular hypertrophy. 27. Moderate mitral annular calcification. 28. Moderate pulmonary hypertension with right ventricular systolic pressure of 53 mmHg. 29. History of respiratory failure. 30. Oropharyngeal candidiasis. 31. Macroglossia. 32. Hypovitaminosis D. 33. History of sepsis secondary to healthcare-associated pneumonia, epiglottitis, and oropharyngeal candidiasis. 34. Uncontrolled diabetes mellitus. 35. History of BiPAP-requiring respiratory failure. 36. Obesity. 37. Hyperprocalcitoninemia . 38. Sinusitis. 39. History of chronic obstructive pulmonary disease exacerbation. 40. 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 41. Pulmonary emphysema. PLAN: Patient was seen by Podiatry and Infections disease. Recommendations were noted. Patient has been ordered repeat labs for the morning. Patient's current consultation Cardiology, Infectious Disease, Nephrology, Podiatry, Interventional Radiology. CURRENT MEDICATIONS: Hydralazine 100 mg twice a day, Aricept 10 mg at bedtime, Ecotrin 325 daily, Cardura 2 mg twice a day, Colace 100 mg three times a day, Coreg 25 twice a day, Cozaar 100 mg daily, Flomax 0.4 mg daily, regular insulin sliding scale coverage before meals and at bedtime, Lipitor 40 mg daily, Lovaza 1 g twice a day, meropenem 250 IV every 12, Namenda 5 mg twice a day, Neurontin 100 mg at bedtime, Norvasc 10 mg daily, PhosLo 667 mg three times a day, Protonix 40 mg daily, Tessalon Perles 200 three times a day, Tylenol PO suppository every 6 p.r.n., tramadol, Ultram 50 mg three times a day p.r.n., Xopenex nebulizer 0.63 mg every 6 hours four times a day and Zofran 4 mg IV every 4 hours p.r.n. Patient is on chest PT, oxygen 2 liters. Patient is seen by physical therapist. RECOMMENDATIONS: Start physical therapy, continue PT, subacute rehab, patient's case referred to social services counselor. Family is in contact with social services counselor regarding discharging planning options. Dictated and electronically signed, not read. Oleg Whitman MD K[facility]
--- NOTE | 2018-02-04 08:23 | PN ---
DATE: 02/02/2018 SUBJECTIVE: The patient is seen sitting up in the bed in room 561, bed 1. The patient is having breakfast. The patient is alert, awake, responsive. The patient does not offer any specific complaint. Overnight nurse's notes were reviewed. The patient tolerated dialysis yesterday. PHYSICAL EXAMINATION: VITAL SIGNS: T-max 98.3; heart rate 69, 82; blood pressure 148/87; respiration 18; O2 sat 98%. HEENT: Head examination normocephalic, atraumatic. HEENT examination shows pinkish pale conjunctivae. Anicteric sclerae. No oropharyngeal lesion. No neck rigidity. CHEST: Kyphosis. Positive upper chest pacemaker. LUNGS: Shows possible rhonchi, right more than the left. CARDIOVASCULAR: S1, S2. Irregular rhythm. Positive systolic murmur, left sternal border, left second intercostal space, right second intercostal space. ABDOMEN: Protuberant, obese. Positive bowel sound. GENITALIA: Male. EXTREMITY: Shows positive left upper extremity AV fistula, positive dressing of the left foot with Jeremi wraps. MUSCULOSKELETAL: Shows a body mass index of 42. Gait examination is not tested. DIAGNOSTICS: From 02/02/2018 is still pending. Fingerstick blood sugar 108, 154, 111, 117, 97. Left foot toe cultures are methicillin-sensitive Staphylococcus aureus and Enterobacter cloacae. The patient received 2 units of PRBC during this hospitalization. IMPRESSION AND PLAN: 1. Status post persistent refractory hypotension, etiology undetermined. 2. History of hypertension. 3. History of dementia and delirium. 4. Left foot toes methicillin-sensitive Staphylococcus aureus and Enterobacter cloacae. Left foot toes gangrene and diabetic foot ulceration. 5. Hypertension. 6. Normocytic anemia, status post packed red blood cell transfusion x2. 7. Elevated erythrocyte sedimentation rate of 57. 8. End-stage renal disease, hemodialysis dependent three times a week via the left upper extremity fistula. 9. Elevated C-reactive protein of greater than 15. 10. Status post left fifth toe amputation. 11. Permanent pacemaker implant. 12. Status post left peroneal artery atherectomy and balloon angioplasty and left tibial artery angioplasty. 13. Severe left pedal occlusive disease. 14. Moderate oropharyngeal dysphagia (resolved or resolving). 1. Postoperative left foot, left toe pain. 2. Status post left hip toe amputation, left hip toe diabetic foot ulcer and gangrene. 3. Severe peripheral vascular disease. 4. Hypertension. 5. Status post hypotension. 6. Hypoxemia. 7. Tachypnea. 8. Severe deconditioning and gait dysfunction. 9. Left fifth toe Enterobacter cloacae and Staphylococcus aureus diabetic foot ulceration and gangrene. 10. Peripheral vascular disease. 11. Normocytic anemia and anemia of chronic kidney disease. 12. Status post packed red blood cell transfusion. 13. End stage renal disease, hemodialysis dependent via the left upper extremity arteriovenous fistula three times a week. 14. Elevated C-reactive protein. 15. Secondary hyperparathyroidism with elevated parathyroid hormone and hyperphosphatemia. 16. Proteinuria, glycosuria, microscopic hematuria, pyuria, bacteruria. 17. Status post two units of packed red blood cells transfusion. 18. Permanent pacemaker implant. 19. Left foot toes dry gangrene with methicillin sensitive Staphylococcus aureus and Enterobacter cloacae. 20. None at this time. 21. [id number] oropharyngeal dysphagia. 1. Status post left fifth toe amputation. 2. Severe peripheral vascular disease, status post angioplasty of the left lower extremity. 3. Delirium. 4. Encephalopathy with episodic confusional state. 5. Status post hypotension. 6. Systemic inflammatory response syndrome. 7. Normocytic anemia. 8. Status post packed red blood cell transfusion. 9. Left foot diabetic ulceration secondary to severe peripheral vascular disease. 10. Gait dysfunction. 11. Deconditioning. 12. History of hypertension. 13. Status post permanent pacemaker implant. 14. Pulmonary hypertension. 15. Dementia. 16. History of dementia. 17. History of hypertension, hyperlipidemia, hypertriglyceridemia. 18. History of prostate hypertrophy. 19. End-stage renal disease, hemodialysis dependent three times a week via the left upper extremity AV fistula. 1. 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 2. Poor compliance. 3. Intermittent confusional state. 4. Severe peripheral vascular disease of the lower extremity. 5. Transient delirium. 6. Cerebellar and cerebral cortical atrophy. 7 Periventricular small-vessel ischemic disease of the brain. 8. Chronic ethmoid and maxillary sinusitis. 9. Moderate oropharyngeal dysphagia. 10. Hypertension. 11. Status post hypotension. 12. Normocytic anemia with decreasing hemoglobin and hematocrit. 13. Elevated erythrocyte sedimentation rate. 14. End-stage renal disease, hemodialysis dependent three times a week via the left upper extremity AV fistula. 15. Enterobacter cloacae and Staphylococcus aureus, left foot diabetic foot ulceration and left fifth toe gangrenous diabetic foot ulceration. 16. Permanent pacemaker implant. 1. Status post hypotension. 2. Left foot Enterobacter cloacae and Staphylococcus aureus diabetic foot ulceration versus osteomyelitis versus diabetic foot ulceration. 3. Left fifth toe gangrenous diabetic foot ulceration. 4. Peripheral vascular disease. 5. Bilateral lower extremity peripheral vascular disease with bilateral severe tibial occlusive disease, left more than the right. 6. Chronic fracture of the base of the fifth proximal phalanx with distal phalanx erosion. 7. Possible hypotensive versus questionable septic shock with hypotension. 8. End-stage renal disease, hemodialysis dependent three times a week via the left upper extremity AV fistula. 9. Peripheral vascular disease. 10. Transient hypoxemia. 11. Normocytic anemia. 12. Elevated erythrocyte sedimentation rate. 13. Granulocytosis. 14. Elevated C-reactive protein of greater than 15. 15. Secondary hyperparathyroidism. 16. Insulin-requiring diabetes mellitus with hemoglobin A1c of 6. 17. Proteinuria, glycosuria, microscopic hematuria, pyuria, bacteriuria. 18. Status post successful left peroneal artery atherectomy and balloon angioplasty and successful left anterior tibial artery angioplasty with severe left pedal occlusive disease. 19. Concentric left ventricular hypertrophy with grade 1 abnormal relaxation pattern. 20. Moderately dilated left and right atrium. 21. Permanent pacemaker implant. 22. Moderate mitral annular calcification. 23. Moderate pulmonary hypertension with right ventricular systolic pressure of 54 mmHg. 24. Gait dysfunction. 25. Deconditioning. 26. Constipation. 1. Status post hypotension. 2. End-stage renal disease, hemodialysis dependent. 3. Severe peripheral vascular disease, status post angioplasty. 4. Left foot diabetic nonhealing ulcer with history of osteomyelitis. 5. Status post hypotension versus shock. 6. Systemic inflammatory response syndrome. 7. Methicillin-sensitive Staphylococcus aureus and Enterobacter cloacae, dry gangrene of the left foot toes. 8. Deconditioning. 9. Gait dysfunction. 10. Moderate oropharyngeal dysphagia with moderate risk for aspiration. 11. Insulin-requiring diabetes mellitus with hemoglobin A1c of 6. 12. Pulmonary hypertension with right ventricular systolic pressure of 54 mmHg. 13. Left ventricular hypertrophy of 56%. 14. Grade 1 abnormal relaxation pattern. 15. Moderately dilated left and right atrium. 16. Mildly sclerotic aortic valve. 17. Moderate mitral annular calcification. 18. Mild tricuspid and mild mitral regurgitation. 19. Left peroneal artery atherectomy and balloon angioplasty. 20. Left anterior tibial artery angioplasty. 1. Systemic inflammatory response syndrome with hypotension. 2. Severe peripheral vascular disease. 3. Left fifth toe osteomyelitis with Enterobacter cloacae and Staphylococcus aureus on left fifth toe osteomyelitis. 4. Status post hypotension. 5. Tachypnea. 6. Hypoxemia. 7. Normocytic anemia with granulocytosis and elevated C-reactive protein. 8. End-stage renal disease, hemodialysis dependent three times a week via the left upper extremity arteriovenous fistula. 9. Elevated C-reactive protein. 10. Insulin-requiring diabetes mellitus with hemoglobin A1c of 6. 11. Elevated C-reactive protein of greater than 15. 12. Diastolic right-sided congestive heart failure with elevated right ventricular systolic pressure of 54 mmHg. 13. Left ventricular ejection fraction of 56%. 14. Grade 1 abnormal relaxation pattern. 15. Moderately dilated left and right atrium. 16. Mildly sclerotic aortic valve. 17. Moderate mitral annular calcification. 18. Mild mitral regurgitation. 19. Mild tricuspid regurgitation with moderate pulmonary hypertension and right ventricular systolic pressure of 54 mmHg with right-sided diastolic congestive heart failure. 20. Left foot base of the fifth proximal phalanx chronic fracture. 21. Extensive emphysema. 22. Right lower lobe consolidation, atelectasis with small pleural effusion. 23. Mitral valve calcification. 24. Status post abdominal aortogram and bilateral lower extremity runoff with left selective view. 25. Status post left peroneal artery atherectomy and balloon angioplasty. 26. Left anterior tibial artery angioplasty. 27. Severe peripheral vascular disease. 28. Left foot osteomyelitis and gangrene. 29. End-stage renal disease. 30. Deconditioning. 31. Gait dysfunction. 32. Left foot fifth digit gangrenous osteomyelitis. 33. Right upper extremity swelling, etiology undetermined. 34. [id number] oropharyngeal dysphagia with moderate risk for aspiration due to missing upper full dentures. Immediate cough with bite size and mixed consistency solid, liquid food with delayed swallowing initiation and slow oral transit. 1. Systemic inflammatory response syndrome. 2. Left foot toes osteomyelitis secondary to Enterobacter cloacae and Staphylococcus aureus, left foot toe diabetic ulceration and osteomyelitis. 3. Status post hypotension. 4. Hypertension. 5. Elevated erythrocyte sedimentation rate of 57. 6. Anemia of chronic disease. 7. Hypocalcemia. 9. Insulin-requiring diabetes mellitus with hemoglobin A1c of 6. 10. Hyperphosphatemia. 11. Elevated C-reactive protein. 12. Gait dysfunction. 13. Deconditioning. 14. End-stage renal disease, hemodialysis dependent via the left upper extremity AV fistula. 15. Proteinuria, glycosuria, microscopic hematuria, pyuria, bacteriuria. 1. Status post severe symptomatic hypotension. 2. Severe peripheral vascular disease with bilateral tibial occlusive disease, status post angiogram. status post left tibial artery angioplasty, left peroneal artery angioplasty. 3. End-stage renal disease, hemodialysis dependent. 4. Tachypnea. 5. Normocytic anemia with granulocytosis 6. Elevated erythrocyte sedimentation rate of 57. 7. Hypocalcemia, hyperphosphatemia. 8. Elevated C-reactive protein of greater than 15. 9. Secondary hyperparathyroidism. 10. Well-controlled insulin-requiring diabetes mellitus with hemoglobin A1c of 6. 11. Left foot and left lower extremity gram-negative hailey, gram-positive cocci, left foot, left lower extremity cellulitis, diabetic ulceration and possible osteomyelitis. 12. Status post abdominal aortogram, bilateral lower extremity runoff with non-selective view. 13. Status post left peroneal artery atherectomy and balloon angioplasty. 14. Left anterior tibial artery angioplasty. 15. Severe left lower extremity pedal occlusive disease. 16. Deconditioning. 17. Gait dysfunction. 18. Poor intravenous access. 19. Upper lobe extensive emphysema with right lower lobe consolidation with effusion. 20. Mitral valve calcification. 21. Left fifth proximal phalanx chronic fracture of the base. 22. Left foot third toe amputation. 23. Left ventricle ejection fraction of 55% with pulmonary hypertension and right ventricular systolic pressure of 54 mmHg. 24. Concentric left ventricular hypertrophy with grade 1 abnormal relaxation pattern. 25. Permanent pacemaker implant. 26. Moderately dilated right and left atrium. 27. Mild aortic valve sclerosis. 28. Moderate mitral annular calcification with mild mitral regurgitation. 29. Mild tricuspid regurgitation with moderate pulmonary hypertension with right ventricular systolic pressure of 54 mmHg. 30. Anemia of chronic disease. 31. Left fifth digit gangrene and diabetic ulceration and gangrene. 32. Chronic obstructive pulmonary disease. 33. Poor intravenous access. 34. Systemic inflammatory response syndrome. 35. Hypotension probably secondary to over hemodialysis. 36. Left fifth toe necrotic. 1. Severe symptomatic hypotension. 2. Left foot osteomyelitis, status post intravenous antibiotic treatment. 3. Tachypnea. 4. Hypoxemia. 5. Normocytic anemia. 6. Granulocytosis. 7. Elevated erythrocyte sedimentation rate of 57. 8. End-stage renal disease, hemodialysis dependent three times a week via left upper extremity arteriovenous fistula. 9. Hyperphosphatemia and secondary hyperparathyroidism. 10. Elevated C-reactive protein of greater than 15. 11. Questionable congestive heart failure with elevated BNP versus volume overload and fluid overload. 12. 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 13. Bilateral lower extremity peripheral arterial disease with bilateral tibial occlusive disease, left greater than the right. 14. Bilateral lower extremity venous stasis. 15. Questionable congestive heart failure with pulmonary vascular congestion and cardiomegaly. 16. Insulin-requiring diabetes mellitus. 17. Permanent pacemaker implant. 18. Left foot fifth toe diabetic ulceration versus osteomyelitis. 19. Left foot fifth digit gangrene and gangrenous ulcer. 20. Severe peripheral vascular disease. 21. Secondary hyperparathyroidism. 22. History of hypertension, chronic obstructive pulmonary disease. 23. History of questionable poor healing left foot diabetic ulceration and gangrenous diabetic ulceration and osteomyelitis. 24. Status post left foot third toe amputation. 25. Severe emphysema of the upper lobes and right lower lobe atelectasis, consolidation and small pleural effusion. 26. Mitral valve calcification. 27. Deconditioning. 28. Constipation. 1. History of left foot osteomyelitis, status post intravenous antibiotic treatment. 2. End-stage renal disease, hemodialysis dependent. 3. History of hypertension. 4. Persistent refractory hypotension, etiology undetermined. 5. Hypoxemia. 6. Normocytic anemia with granulocytosis. 7. Elevated BNP, etiology undetermined. 8. Elevated C-reactive protein. 9. Peripheral vascular disease of the lower extremity. 10. Bilateral lower extremity venous stasis. 11. Gait dysfunction. 12. Deconditioning. 13. Cardiomegaly with mild pulmonary vascular congestion. 14. History of dementia. 15. History of permanent pacemaker implant. 16. History of prostatic hypertrophy, history of hypertriglyceridemia, history of secondary hyperparathyroidism. 17. Insulin-requiring diabetes mellitus. 18. Sick sinus syndrome. 19. History of left foot toe amputation. 20. Diabetic foot ulcer. 21. Left upper extremity arteriovenous fistula. 22. Left hand finger amputation. 23. History of nicotine dependence. 24. Sepsis. 25. Pneumonia. 26. Pulmonary hypertension with moderate concentric left ventricular hypertrophy. 27. Moderate mitral annular calcification. 28. Moderate pulmonary hypertension with right ventricular systolic pressure of 53 mmHg. 29. History of respiratory failure. 30. Oropharyngeal candidiasis. 31. Macroglossia. 32. Hypovitaminosis D. 33. History of sepsis secondary to healthcare-associated pneumonia, epiglottitis, and oropharyngeal candidiasis. 34. Uncontrolled diabetes mellitus. 35. History of BiPAP-requiring respiratory failure. 36. Obesity. 37. Hyperprocalcitoninemia . 38. Sinusitis. 39. History of chronic obstructive pulmonary disease exacerbation. 40. 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 41. Pulmonary emphysema. Plan at this time, the patient has been ordered repeat labs. The results are still pending. CONSULTATION: Cardiology, Infectious Disease, Nephrology, Podiatry, Interventional Radiology, Neurology. Referral to [facility], [facility], TCU. CURRENT MEDICATIONS: Hydralazine 100 mg twice a day, Aricept 10 mg daily, Ecotrin 325 mg daily, Cardura 2 mg twice a day, Colace 100 mg three times a day, Coreg 25 mg twice a day, Cozaar 100 mg daily, Flomax 0.4 mg daily, insulin medium-dose sliding scale coverage, Lidoderm 5% patch to the affected area of pain, Lipitor 40 mg daily, Lovaza 1 g twice a day, meropenem 250 IV every 12, Namenda 5 mg twice a day, Neurontin 100 mg at bedtime, Norvasc 10 mg daily, PhosLo 667 mg with meals, Protonix 40 mg daily, Tessalon Perles 200 three times a day, Tylenol 650 p.o. suppository every 6 p.r.n., Ultram 50 mg t.i.d. p.r.n. for left foot pain, Xopenex nebulizer 0.63 mg every 6 hours, Zofran 4 mg IV every 4 p.r.n. At present, the patient will be continued on present therapeutic intervention including Infectious Disease recommendation regarding the duration of the IV antibiotics. It seems like the patient will require intravenous antibiotics as per Infectious Disease recommendation and IV meropenem will be continued as per the Infectious Disease recommendation pending operating room cultures and pathology. The patient will be continued on the above therapeutic intervention. The patient's case is referred for discharge planning. Dictated and electronically signed, not read. Oleg Whitman MD [facility] # [id number] KRISTI
[2018-02-04] MEDS: Lidocaine 5% Patch TD SCH (09:00)
[2018-02-04] MEDS: Omega-3-Acid Ethyl Esters 1 GM Cap PO SCH ×2 (09:51→17:11)
--- NOTE | 2018-02-04 23:22 | CP.PCM.PN ---
Subjective - Date & Time of Evaluation Date of Evaluation: 02/03/18 Time of Evaluation: 12:00 - Subjective Subjective: Afebrile, not in distress. Objective - Vital Signs/Intake and Output Vital Signs (last 24 hours): Temp Pulse Resp BP Pulse Ox 97.9 F 69 18 123/50 L 95 02/03/18 06:00 02/03/18 06:00 02/03/18 06:00 02/03/18 06:00 02/03/18 06:00 Intake and Output: 02/03/18 02/03/18 06:59 18:59 Intake Total 300 Balance 300 - Medications Medications: Current Medications Acetaminophen (Tylenol 325mg Tab) 650 mg PO Q6 PRN PRN Reason: TEMP>=99.5F Last Admin: 01/29/18 21:21 Dose: 650 mg Acetaminophen (Tylenol 650 Mg Supp) 650 mg RC Q6H PRN PRN Reason: TEMP>=99.5F Amlodipine Besylate (Norvasc) 10 mg PO DAILY [facility] Last Admin: 02/02/18 09:27 Dose: 10 mg Aspirin (Aspirin) 325 mg PO DAILY [facility] Last Admin: 02/02/18 15:56 Dose: Not Given Atorvastatin Calcium (Lipitor) 40 mg PO [facility] Last Admin: 02/02/18 21:49 Dose: 40 mg Benzonatate (Tessalon Perles) 200 mg PO TID [facility] Last Admin: 02/02/18 18:47 Dose: 200 mg Calcium Acetate (Phoslo) 667 mg PO TID [facility] Last Admin: 02/02/18 18:47 Dose: 667 mg Carvedilol (Coreg) 25 mg PO BID [facility] Last Admin: 02/02/18 18:46 Dose: Not Given Dextrose (Dextrose 50% Inj) 25 ml IV STAT PRN; Protocol PRN Reason: Hypoglycemia Protocol Docusate Sodium (Colace) 100 mg PO TID [facility] Last Admin: 02/02/18 18:46 Dose: 100 mg Donepezil HCl (Aricept) 10 mg PO [facility] Last Admin: 02/02/18 21:48 Dose: 10 mg Doxazosin Mesylate (Cardura) 2 mg PO BID [facility] Last Admin: 02/02/18 18:46 Dose: Not Given Gabapentin (Neurontin) 100 mg PO [facility]; Protocol Last Admin: 02/02/18 21:48 Dose: 100 mg Hydralazine HCl (Apresoline) 100 mg PO BID [facility] Last Admin: 02/02/18 18:45 Dose: Not Given Dextrose (Dextrose 5% In Water 1000 Ml) 1,000 mls @ 0 mls/hr IV .Q0M PRN; Protocol PRN Reason: Hypoglycemia Protocol Meropenem 250 mg/ Sodium (Chloride) 100 mls @ 100 mls/hr IVPB Q12H [facility]ERE; Protocol Stop: 02/08/18 19:31 Last Admin: 02/02/18 20:28 Dose: 100 mls/hr Insulin Human Regular (Humulin R Med) 0 units SC ACHS JERE; Protocol Last Admin: 02/02/18 18:51 Dose: 1 unit Levalbuterol HCl (Xopenex) 0.63 mg IH [id number] [facility] Last Admin: 02/03/18 07:54 Dose: 0.63 mg Lidocaine (Lidoderm) 1 ea TD DAILY [facility] Last Admin: 02/02/18 15:50 Dose: 1 ea Losartan Potassium (Cozaar) 100 mg PO DAILY [facility] Last Admin: 02/02/18 09:27 Dose: 100 mg Memantine (Namenda) 5 mg PO BID [facility] Last Admin: 02/02/18 18:51 Dose: 5 mg [id number] Ethyl Esters (Lovaza) 1 gm PO BID [facility] Last Admin: 02/02/18 18:51 Dose: 1 gm Ondansetron HCl (Zofran Inj) 4 mg IVP Q4H PRN PRN Reason: Nausea/Vomiting Pantoprazole Sodium (Protonix Ec Tab) 40 mg PO 0600 [facility] Last Admin: 02/03/18 05:48 Dose: 40 mg Tamsulosin HCl (Flomax) 0.4 mg PO DAILY [facility] Last Admin: 02/02/18 09:29 Dose: 0.4 mg Tramadol HCl (Ultram) 50 mg PO TID PRN PRN Reason: Pain, moderate (4-7) Last Admin: 02/03/18 00:08 Dose: 50 mg - Labs Labs: 02/02/18 10:00 02/02/18 10:00 PT 12.9 SECONDS (9.4-12.5) H 02/02/18 10:00 INR 1.12 02/02/18 10:00 APTT 37.0 Seconds (25.1-36.5) H 02/02/18 10:00 - Constitutional Appears: Chronically Ill - Head Exam Head Exam: NORMAL INSPECTION - Respiratory Exam Respiratory Exam: Decreased Breath Sounds - Cardiovascular Exam Cardiovascular Exam: +S1, +S2 - GI/Abdominal Exam GI & Abdominal Exam: Soft. absent: Tenderness - Extremities Exam Additional comments: left foot with dressings in place Assessment and Plan - Assessment and Plan (Free Text) Plan: Assessment consider dry gangrene of the left foot toes with MSSA and Enterobacter with osteomyelitis in this patient with peripheral arterial disease S/P left fifth digit amputation - pathology shows bone resection margin is clear history of severe sepsis due to left foot cellulitis with left 5th toe gangrene and clinical osteomyelitis history of severe sepsis due to healthcare-associated pneumonia as well as epiglottitis with oropahryngeal candidiasis ESRD on HD DM HTN morbid obesity with BMI 41 dyslipidemia COPD cataracts chronic low back pain Plan completed 10 days of Merrem day 10 - will d/c and observe will continue to monitor clinically
--- NOTE | 2018-02-05 02:28 | PN ---
DATE: 02/04/2018 SUBJECTIVE: The patient is seen in the dialysis unit. He is groggy, but arousable. PHYSICAL EXAMINATION: GENERAL: Elderly male seen in the dialysis unit. VITAL SIGNS: Blood pressure 124/78, heart rate 69, respiratory rate 18, temperature 97.6. HEENT: Normocephalic, atraumatic, positive pallor. NECK: Supple, no JVD. LUNGS: Bilateral equal air entry, no rales. CARDIAC: S1 and S2, regular rate and rhythm, no murmur, no rub. ABDOMEN: Obese, distended, soft, nontender, bowel sounds present. EXTREMITIES: No lower extremity edema, dressing of the left foot. LABORATORY DATA: No new labs. MEDICATIONS: List reviewed. ASSESSMENT: 1. End-stage renal disease. 2. Peripheral vascular disease. 3. Nonhealing ulcer of the left fifth toe, status post amputation. 4. Xrj-haksuza-bgcxougig diabetes mellitus. 5. Anemia of chronic kidney disease. 6. Wound infection. PLAN: 1. Stable dialysis. 2. Continue antibiotics. 3. Wound care. 4. Physical therapy. Yadira Fox MD
[2018-02-05] MEDS: Levalbuterol 0.63 MG/3 ML Inhal Soln UD IH SCH ×4 (04:36→19:24)
[2018-02-05] MEDS: Pantoprazole 40 mg EC Tab PO SCH (05:56)
[2018-02-05] MEDS: Insulin Reg-MEDIUM-Coverage SC SCH ×4 (08:00→22:20)
--- NOTE | 2018-02-05 10:06 | PN ---
DATE: 02/04/2018 SUBJECTIVE: The patient is seen in dialysis today. The patient is comfortable. Overnight nurse's notes were reviewed. The patient was found to be alert, awake, responsive. PHYSICAL EXAMINATION: VITAL SIGNS: T-max is 98.8, 97.6; heart rate 69; blood pressure in the last 24 hours dropped to 94/60, 133/61, 124/78; respiration 18; O2 sat 98%. The patient was seen lying in the dialysis. HEENT: Head examination normocephalic, atraumatic. HEENT examination shows pinkish conjunctivae. Anicteric sclerae. No oropharyngeal lesion. No neck rigidity. CHEST: Shows upper chest pacemaker. LUNGS: Shows upper lung [place] anterior lung field rhonchi. No rales, crackles or wheezing. CARDIOVASCULAR: S1, S2. Positive systolic murmur, left sternal border, right second intercostal space, left second intercostal space. ABDOMEN: Protuberant, obese. Positive bowel sound. GENITALIA: Male. RECTAL: Deferred. EXTREMITY: Shows no pitting edema of the lower extremity. Positive dressing of the left foot noted. Positive left upper extremity AV fistula. Positive thrill noted. MUSCULOSKELETAL: Shows a body mass index of 42. Gait examination is not tested. DIAGNOSTICS: None from today. Fingerstick blood sugar 189, 186, 149, 163, 108. Left fifth toe amputation with acute ulcer, gangrenous necrosis, marked acute inflammation of the soft tissue with acute osteomyelitis. Resection margin is viable. Bone at the resection margin shows no evidence of osteomyelitis. Left foot fifth toe clean margin with no evidence of acute osteomyelitis. IMPRESSION AND PLAN: 1. Methicillin-sensitive Staphylococcus aureus and Enterobacter cloacae left foot fifth toe diabetic foot ulceration, dry gangrene with acute osteomyelitis. 2. Acute gangrenous necrosis with acute osteomyelitis of the left fifth toe with resection margins negative for osteomyelitis. 3. End-stage renal disease, hemodialysis dependent three times a week via the left upper extremity arteriovenous fistula. 4. Episodic hypotension. 5. Insulin-requiring diabetes mellitus. 6. Severe deconditioning and gait dysfunction. 7. Moderate oropharyngeal dysphagia. 8. Left peroneal artery atherectomy and balloon angioplasty. 9. Left anterior tibial artery angioplasty. 10. Gait dysfunction. 11. Deconditioning. 12. Pulmonary hypertension with right ventricular systolic pressure of 54 mmHg. 13. Grade 1 abnormal relaxation pattern. 14. Moderately dilated left and right atrium. 15. Mild aortic sclerosis. 16. Moderate mitral annular calcification. 17. Mild tricuspid regurgitation, mild mitral regurgitation. 18. Moderate pulmonary hypertension. 19. History of dementia. 20. History of hypertension. 21. History of prostatic hypertrophy. 22. Hyperlipidemia, hypertriglyceridemia. 23. Secondary hyperparathyroidism. 1. Episodic hypotension. 2. Enterobacter cloacae and Staphylococcus aureus left foot diabetic foot ulceration. 3. Left foot toe methicillin-sensitive Staphylococcus aureus and Enterobacter cloacae left foot toe dry gangrene, diabetic foot ulceration. 4. Severe peripheral vascular disease of the lower extremity with status post left peroneal artery atherectomy and balloon angioplasty and left anterior tibial artery angioplasty. 5. Severe peripheral vascular disease with left foot gangrene. 6. End-stage renal disease, hemodialysis dependent. 7. Severe left pedal occlusive disease. 8. Delirium. 9. History of hypertension with episodic hypotension. 10. Normocytic anemia. 11. Anemia of chronic kidney disease. 12. Status post packed red blood cell transfusion x2. 13. Elevated erythrocyte sedimentation rate. 14. Insulin-requiring diabetes mellitus with hemoglobin A1c of 6 with hyperglycemia. 15. End-stage renal disease, hemodialysis dependent. 16. Secondary hyperparathyroidism with elevated PTH. 17. Status post packed red blood cell transfusion x2. 18. Deconditioning. 19. Gait dysfunction. 20. Pulmonary hypertension with right ventricular systolic pressure of 54 mmHg and tricuspid regurgitation. 21. Left ventricular hypertrophy with left ventricle ejection fraction of 56%. 22. Grade 1 abnormal relaxation pattern. 23. Moderately dilated right and left atrium. 24. Mildly sclerotic aortic valve. 25. Moderate mitral annular calcification with mild mitral regurgitation. 26. Mild pulmonic regurgitation. 27. Status post left fifth toe and digit amputation. 1. Status post persistent refractory hypotension, etiology undetermined. 2. History of hypertension. 3. History of dementia and delirium. 4. Left foot toes methicillin-sensitive Staphylococcus aureus and Enterobacter cloacae. Left foot toes gangrene and diabetic foot ulceration. 5. Hypertension. 6. Normocytic anemia, status post packed red blood cell transfusion x2. 7. Elevated erythrocyte sedimentation rate of 57. 8. End-stage renal disease, hemodialysis dependent three times a week via the left upper extremity fistula. 9. Elevated C-reactive protein of greater than 15. 10. Status post left fifth toe amputation. 11. Permanent pacemaker implant. 12. Status post left peroneal artery atherectomy and balloon angioplasty and left tibial artery angioplasty. 13. Severe left pedal occlusive disease. 14. Moderate oropharyngeal dysphagia (resolved or resolving). 1. Postoperative left foot, left toe pain. 2. Status post left hip toe amputation, left hip toe diabetic foot ulcer and gangrene. 3. Severe peripheral vascular disease. 4. Hypertension. 5. Status post hypotension. 6. Hypoxemia. 7. Tachypnea. 8. Severe deconditioning and gait dysfunction. 9. Left fifth toe Enterobacter cloacae and Staphylococcus aureus diabetic foot ulceration and gangrene. 10. Peripheral vascular disease. 11. Normocytic anemia and anemia of chronic kidney disease. 12. Status post packed red blood cell transfusion. 13. End stage renal disease, hemodialysis dependent via the left upper extremity arteriovenous fistula three times a week. 14. Elevated C-reactive protein. 15. Secondary hyperparathyroidism with elevated parathyroid hormone and hyperphosphatemia. 16. Proteinuria, glycosuria, microscopic hematuria, pyuria, bacteruria. 17. Status post two units of packed red blood cells transfusion. 18. Permanent pacemaker implant. 19. Left foot toes dry gangrene with methicillin sensitive Staphylococcus aureus and Enterobacter cloacae. 20. None at this time. 21. [id number] oropharyngeal dysphagia. 1. Status post left fifth toe amputation. 2. Severe peripheral vascular disease, status post angioplasty of the left lower extremity. 3. Delirium. 4. Encephalopathy with episodic confusional state. 5. Status post hypotension. 6. Systemic inflammatory response syndrome. 7. Normocytic anemia. 8. Status post packed red blood cell transfusion. 9. Left foot diabetic ulceration secondary to severe peripheral vascular disease. 10. Gait dysfunction. 11. Deconditioning. 12. History of hypertension. 13. Status post permanent pacemaker implant. 14. Pulmonary hypertension. 15. Dementia. 16. History of dementia. 17. History of hypertension, hyperlipidemia, hypertriglyceridemia. 18. History of prostate hypertrophy. 19. End-stage renal disease, hemodialysis dependent three times a week via the left upper extremity AV fistula. 1. 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 2. Poor compliance. 3. Intermittent confusional state. 4. Severe peripheral vascular disease of the lower extremity. 5. Transient delirium. 6. Cerebellar and cerebral cortical atrophy. 7 Periventricular small-vessel ischemic disease of the brain. 8. Chronic ethmoid and maxillary sinusitis. 9. Moderate oropharyngeal dysphagia. 10. Hypertension. 11. Status post hypotension. 12. Normocytic anemia with decreasing hemoglobin and hematocrit. 13. Elevated erythrocyte sedimentation rate. 14. End-stage renal disease, hemodialysis dependent three times a week via the left upper extremity AV fistula. 15. Enterobacter cloacae and Staphylococcus aureus, left foot diabetic foot ulceration and left fifth toe gangrenous diabetic foot ulceration. 16. Permanent pacemaker implant. 1. Status post hypotension. 2. Left foot Enterobacter cloacae and Staphylococcus aureus diabetic foot ulceration versus osteomyelitis versus diabetic foot ulceration. 3. Left fifth toe gangrenous diabetic foot ulceration. 4. Peripheral vascular disease. 5. Bilateral lower extremity peripheral vascular disease with bilateral severe tibial occlusive disease, left more than the right. 6. Chronic fracture of the base of the fifth proximal phalanx with distal phalanx erosion. 7. Possible hypotensive versus questionable septic shock with hypotension. 8. End-stage renal disease, hemodialysis dependent three times a week via the left upper extremity AV fistula. 9. Peripheral vascular disease. 10. Transient hypoxemia. 11. Normocytic anemia. 12. Elevated erythrocyte sedimentation rate. 13. Granulocytosis. 14. Elevated C-reactive protein of greater than 15. 15. Secondary hyperparathyroidism. 16. Insulin-requiring diabetes mellitus with hemoglobin A1c of 6. 17. Proteinuria, glycosuria, microscopic hematuria, pyuria, bacteriuria. 18. Status post successful left peroneal artery atherectomy and balloon angioplasty and successful left anterior tibial artery angioplasty with severe left pedal occlusive disease. 19. Concentric left ventricular hypertrophy with grade 1 abnormal relaxation pattern. 20. Moderately dilated left and right atrium. 21. Permanent pacemaker implant. 22. Moderate mitral annular calcification. 23. Moderate pulmonary hypertension with right ventricular systolic pressure of 54 mmHg. 24. Gait dysfunction. 25. Deconditioning. 26. Constipation. 1. Status post hypotension. 2. End-stage renal disease, hemodialysis dependent. 3. Severe peripheral vascular disease, status post angioplasty. 4. Left foot diabetic nonhealing ulcer with history of osteomyelitis. 5. Status post hypotension versus shock. 6. Systemic inflammatory response syndrome. 7. Methicillin-sensitive Staphylococcus aureus and Enterobacter cloacae, dry gangrene of the left foot toes. 8. Deconditioning. 9. Gait dysfunction. 10. Moderate oropharyngeal dysphagia with moderate risk for aspiration. 11. Insulin-requiring diabetes mellitus with hemoglobin A1c of 6. 12. Pulmonary hypertension with right ventricular systolic pressure of 54 mmHg. 13. Left ventricular hypertrophy of 56%. 14. Grade 1 abnormal relaxation pattern. 15. Moderately dilated left and right atrium. 16. Mildly sclerotic aortic valve. 17. Moderate mitral annular calcification. 18. Mild tricuspid and mild mitral regurgitation. 19. Left peroneal artery atherectomy and balloon angioplasty. 20. Left anterior tibial artery angioplasty. 1. Systemic inflammatory response syndrome with hypotension. 2. Severe peripheral vascular disease. 3. Left fifth toe osteomyelitis with Enterobacter cloacae and Staphylococcus aureus on left fifth toe osteomyelitis. 4. Status post hypotension. 5. Tachypnea. 6. Hypoxemia. 7. Normocytic anemia with granulocytosis and elevated C-reactive protein. 8. End-stage renal disease, hemodialysis dependent three times a week via the left upper extremity arteriovenous fistula. 9. Elevated C-reactive protein. 10. Insulin-requiring diabetes mellitus with hemoglobin A1c of 6. 11. Elevated C-reactive protein of greater than 15. 12. Diastolic right-sided congestive heart failure with elevated right ventricular systolic pressure of 54 mmHg. 13. Left ventricular ejection fraction of 56%. 14. Grade 1 abnormal relaxation pattern. 15. Moderately dilated left and right atrium. 16. Mildly sclerotic aortic valve. 17. Moderate mitral annular calcification. 18. Mild mitral regurgitation. 19. Mild tricuspid regurgitation with moderate pulmonary hypertension and right ventricular systolic pressure of 54 mmHg with right-sided diastolic congestive heart failure. 20. Left foot base of the fifth proximal phalanx chronic fracture. 21. Extensive emphysema. 22. Right lower lobe consolidation, atelectasis with small pleural effusion. 23. Mitral valve calcification. 24. Status post abdominal aortogram and bilateral lower extremity runoff with left selective view. 25. Status post left peroneal artery atherectomy and balloon angioplasty. 26. Left anterior tibial artery angioplasty. 27. Severe peripheral vascular disease. 28. Left foot osteomyelitis and gangrene. 29. End-stage renal disease. 30. Deconditioning. 31. Gait dysfunction. 32. Left foot fifth digit gangrenous osteomyelitis. 33. Right upper extremity swelling, etiology undetermined. 34. [id number]-ohnaltxc oropharyngeal dysphagia with moderate risk for aspiration due to missing upper full dentures. Immediate cough with bite size and mixed consistency solid, liquid food with delayed swallowing initiation and slow oral transit. 1. Systemic inflammatory response syndrome. 2. Left foot toes osteomyelitis secondary to Enterobacter cloacae and Staphylococcus aureus, left foot toe diabetic ulceration and osteomyelitis. 3. Status post hypotension. 4. Hypertension. 5. Elevated erythrocyte sedimentation rate of 57. 6. Anemia of chronic disease. 7. Hypocalcemia. 9. Insulin-requiring diabetes mellitus with hemoglobin A1c of 6. 10. Hyperphosphatemia. 11. Elevated C-reactive protein. 12. Gait dysfunction. 13. Deconditioning. 14. End-stage renal disease, hemodialysis dependent via the left upper extremity AV fistula. 15. Proteinuria, glycosuria, microscopic hematuria, pyuria, bacteriuria. 1. Status post severe symptomatic hypotension. 2. Severe peripheral vascular disease with bilateral tibial occlusive disease, status post angiogram. status post left tibial artery angioplasty, left peroneal artery angioplasty. 3. End-stage renal disease, hemodialysis dependent. 4. Tachypnea. 5. Normocytic anemia with granulocytosis 6. Elevated erythrocyte sedimentation rate of 57. 7. Hypocalcemia, hyperphosphatemia. 8. Elevated C-reactive protein of greater than 15. 9. Secondary hyperparathyroidism. 10. Well-controlled insulin-requiring diabetes mellitus with hemoglobin A1c of 6. 11. Left foot and left lower extremity gram-negative hailey, gram-positive cocci, left foot, left lower extremity cellulitis, diabetic ulceration and possible osteomyelitis. 12. Status post abdominal aortogram, bilateral lower extremity runoff with non-selective view. 13. Status post left peroneal artery atherectomy and balloon angioplasty. 14. Left anterior tibial artery angioplasty. 15. Severe left lower extremity pedal occlusive disease. 16. Deconditioning. 17. Gait dysfunction. 18. Poor intravenous access. 19. Upper lobe extensive emphysema with right lower lobe consolidation with effusion. 20. Mitral valve calcification. 21. Left fifth proximal phalanx chronic fracture of the base. 22. Left foot third toe amputation. 23. Left ventricle ejection fraction of 55% with pulmonary hypertension and right ventricular systolic pressure of 54 mmHg. 24. Concentric left ventricular hypertrophy with grade 1 abnormal relaxation pattern. 25. Permanent pacemaker implant. 26. Moderately dilated right and left atrium. 27. Mild aortic valve sclerosis. 28. Moderate mitral annular calcification with mild mitral regurgitation. 29. Mild tricuspid regurgitation with moderate pulmonary hypertension with right ventricular systolic pressure of 54 mmHg. 30. Anemia of chronic disease. 31. Left fifth digit gangrene and diabetic ulceration and gangrene. 32. Chronic obstructive pulmonary disease. 33. Poor intravenous access. 34. Systemic inflammatory response syndrome. 35. Hypotension probably secondary to over hemodialysis. 36. Left fifth toe necrotic. 1. Severe symptomatic hypotension. 2. Left foot osteomyelitis, status post intravenous antibiotic treatment. 3. Tachypnea. 4. Hypoxemia. 5. Normocytic anemia. 6. Granulocytosis. 7. Elevated erythrocyte sedimentation rate of 57. 8. End-stage renal disease, hemodialysis dependent three times a week via left upper extremity arteriovenous fistula. 9. Hyperphosphatemia and secondary hyperparathyroidism. 10. Elevated C-reactive protein of greater than 15. 11. Questionable congestive heart failure with elevated BNP versus volume overload and fluid overload. 12. 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 13. Bilateral lower extremity peripheral arterial disease with bilateral tibial occlusive disease, left greater than the right. 14. Bilateral lower extremity venous stasis. 15. Questionable congestive heart failure with pulmonary vascular congestion and cardiomegaly. 16. Insulin-requiring diabetes mellitus. 17. Permanent pacemaker implant. 18. Left foot fifth toe diabetic ulceration versus osteomyelitis. 19. Left foot fifth digit gangrene and gangrenous ulcer. 20. Severe peripheral vascular disease. 21. Secondary hyperparathyroidism. 22. History of hypertension, chronic obstructive pulmonary disease. 23. History of questionable poor healing left foot diabetic ulceration and gangrenous diabetic ulceration and osteomyelitis. 24. Status post left foot third toe amputation. 25. Severe emphysema of the upper lobes and right lower lobe atelectasis, consolidation and small pleural effusion. 26. Mitral valve calcification. 27. Deconditioning. 28. Constipation. 1. History of left foot osteomyelitis, status post intravenous antibiotic treatment. 2. End-stage renal disease, hemodialysis dependent. 3. History of hypertension. 4. Persistent refractory hypotension, etiology undetermined. 5. Hypoxemia. 6. Normocytic anemia with granulocytosis. 7. Elevated BNP, etiology undetermined. 8. Elevated C-reactive protein. 9. Peripheral vascular disease of the lower extremity. 10. Bilateral lower extremity venous stasis. 11. Gait dysfunction. 12. Deconditioning. 13. Cardiomegaly with mild pulmonary vascular congestion. 14. History of dementia. 15. History of permanent pacemaker implant. 16. History of prostatic hypertrophy, history of hypertriglyceridemia, history of secondary hyperparathyroidism. 17. Insulin-requiring diabetes mellitus. 18. Sick sinus syndrome. 19. History of left foot toe amputation. 20. Diabetic foot ulcer. 21. Left upper extremity arteriovenous fistula. 22. Left hand finger amputation. 23. History of nicotine dependence. 24. Sepsis. 25. Pneumonia. 26. Pulmonary hypertension with moderate concentric left ventricular hypertrophy. 27. Moderate mitral annular calcification. 28. Moderate pulmonary hypertension with right ventricular systolic pressure of 53 mmHg. 29. History of respiratory failure. 30. Oropharyngeal candidiasis. 31. Macroglossia. 32. Hypovitaminosis D. 33. History of sepsis secondary to healthcare-associated pneumonia, epiglottitis, and oropharyngeal candidiasis. 34. Uncontrolled diabetes mellitus. 35. History of BiPAP-requiring respiratory failure. 36. Obesity. 37. Hyperprocalcitoninemia . 38. Sinusitis. 39. History of chronic obstructive pulmonary disease exacerbation. 40. 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 41. Pulmonary emphysema. Plan at this time, the patient's lab work which was ordered yesterday was not done. The patient is still waiting for Infectious Disease clearance regarding IV antibiotic duration. The patient has been ordered current consultation, Cardiology, Infectious Disease, Nephrology, Podiatry, Interventional Radiology, Psychiatry. Current medications are hydralazine 50 mg twice a day, Aricept 10 mg at bedtime, Ecotrin 325 mg daily, Cardura 2 mg twice a day, Colace 100 mg three times a day, Coreg 25 mg twice a day, Cozaar 100 mg daily, Flomax 0.4 mg daily, Humulin medium-dose sliding scale coverage before meals and at bedtime, Lidoderm 5% patch to the affected area, Lipitor 40 mg daily, Lovaza 1 g twice a day, Namenda 5 mg twice a day, Neurontin 100 mg at bedtime, Norvasc 10 mg daily, PhosLo 667 mg three times a day, Protonix 40 mg daily, Tessalon Perles 200 three times a day, Tylenol 650 mg p.o. suppository every 6 p.r.n., Ultram 50 mg t.i.d. p.r.n., Xopenex 0.63 mg every 6 hours, Zofran 4 mg IV every 4 hours p.r.n. Chest PT, oxygen 2 L, altered GI diet, out of bed to chair, ambulation, gait training, occupational therapy, physical therapy ordered. We are still waiting for Infectious Disease recommendation about duration of IV antibiotic needed. The patient is also waiting for discharge to subacute rehab where the patient is accepted. Dictated and electronically signed, not read. Oleg Whitman MD [facility]
[2018-02-05] MEDS: Omega-3-Acid Ethyl Esters 1 GM Cap PO SCH ×2 (10:29→18:13)
[2018-02-05] MEDS: Lidocaine 5% Patch TD SCH (10:40)
--- NOTE | 2018-02-05 15:27 | CP.PCM.PN ---
Subjective - Date & Time of Evaluation Date of Evaluation: 02/05/18 Time of Evaluation: 15:24 - Subjective Subjective: Podiatry progress note for Dr. Gleason: 78 yo male patient seen at bedside 5 days s/p L 5th toe amputation. Patient is sleeping comfortably in bed and in NAD. He denies any acute overnight events. Denies any other pedal complaints at this time. Denies any N/V/F/SOB/CP. Objective - Vital Signs/Intake and Output Vital Signs (last 24 hours): Temp Pulse Resp BP Pulse Ox 98 F 74 18 130/62 94 L 02/05/18 07:57 02/05/18 07:57 02/05/18 07:57 02/05/18 10:31 02/05/18 07:57 Intake and Output: 02/05/18 02/05/18 06:59 18:59 Intake Total 420 Balance 420 - Medications Medications: Current Medications Acetaminophen (Tylenol 325mg Tab) 650 mg PO Q6 PRN PRN Reason: TEMP>=99.5F Last Admin: 01/29/18 21:21 Dose: 650 mg Acetaminophen (Tylenol 650 Mg Supp) 650 mg RC Q6H PRN PRN Reason: TEMP>=99.5F Amlodipine Besylate (Norvasc) 10 mg PO DAILY [facility] Last Admin: 02/05/18 10:30 Dose: 10 mg Aspirin (Aspirin) 325 mg PO DAILY [facility] Last Admin: 02/05/18 10:36 Dose: Not Given Atorvastatin Calcium (Lipitor) 40 mg PO [facility] Last Admin: 02/04/18 22:41 Dose: 40 mg Benzonatate (Tessalon Perles) 200 mg PO TID [facility] Last Admin: 02/05/18 13:58 Dose: 200 mg Calcium Acetate (Phoslo) 667 mg PO TID [facility] Last Admin: 02/05/18 13:58 Dose: 667 mg Carvedilol (Coreg) 25 mg PO BID [facility] Last Admin: 02/05/18 10:31 Dose: 25 mg Dextrose (Dextrose 50% Inj) 25 ml IV STAT PRN; Protocol PRN Reason: Hypoglycemia Protocol Docusate Sodium (Colace) 100 mg PO TID [facility] Last Admin: 02/05/18 13:59 Dose: 100 mg Donepezil HCl (Aricept) 10 mg PO HS [facility] Last Admin: 02/04/18 22:41 Dose: 10 mg Doxazosin Mesylate (Cardura) 2 mg PO BID [facility] Last Admin: 02/05/18 10:31 Dose: 2 mg Gabapentin (Neurontin) 100 mg PO HS JERE; Protocol Last Admin: 02/04/18 22:41 Dose: 100 mg Hydralazine HCl (Apresoline) 50 mg PO 0700,1800 [facility] Last Admin: 02/05/18 10:31 Dose: 50 mg Dextrose (Dextrose 5% In Water 1000 Ml) 1,000 mls @ 0 mls/hr IV .Q0M PRN; Protocol PRN Reason: Hypoglycemia Protocol Insulin Human Regular (Humulin R Med) 0 units SC ACHS JERE; Protocol Last Admin: 02/05/18 14:01 Dose: Not Given Levalbuterol HCl (Xopenex) 0.63 mg IH [id number] [facility] Last Admin: 02/05/18 14:15 Dose: 0.63 mg Lidocaine (Lidoderm) 1 ea TD DAILY [facility] Last Admin: 02/05/18 10:40 Dose: 1 ea Losartan Potassium (Cozaar) 100 mg PO DAILY [facility] Last Admin: 02/05/18 10:35 Dose: 100 mg Memantine (Namenda) 5 mg PO BID [facility] Last Admin: 02/05/18 10:31 Dose: 5 mg [id number] Ethyl Esters (Lovaza) 1 gm PO BID [facility] Last Admin: 02/05/18 10:29 Dose: 1 gm Ondansetron HCl (Zofran Inj) 4 mg IVP Q4H PRN PRN Reason: Nausea/Vomiting Pantoprazole Sodium (Protonix Ec Tab) 40 mg PO 0600 [facility] Last Admin: 02/05/18 05:56 Dose: 40 mg Tamsulosin HCl (Flomax) 0.4 mg PO DAILY [facility] Last Admin: 02/05/18 10:36 Dose: 0.4 mg Tramadol HCl (Ultram) 50 mg PO TID PRN PRN Reason: Pain, moderate (4-7) Last Admin: 02/03/18 10:31 Dose: 50 mg - Labs Labs: 02/02/18 10:00 02/02/18 10:00 PT 12.9 SECONDS (9.4-12.5) H 02/02/18 10:00 INR 1.12 02/02/18 10:00 APTT 37.0 Seconds (25.1-36.5) H 02/02/18 10:00 - Constitutional Appears: Well, Non-toxic, No Acute Distress - Head Exam Head Exam: ATRAUMATIC, NORMOCEPHALIC - Extremities Exam Additional comments: LLE focused exam: Vasc: PT, DP pulses palpable, Cap refill time < 3 sec in all digits, no edema noted to the left foot Ortho: No tenderness to palpation to surgical site, patient able to move toes, no pain upon calf compression Neuro: Protective sensation diminished, gross sensation intact bilaterally Derm: Surgical site intact with skin edges well coapted, sutures intact, no evidence of dehiscence, no erythema, no cellulitis, no purulence, no malodor, no drainage noted, no clinical signs of infection - Neurological Exam Neurological Exam: Alert, Awake, Oriented x3 - Psychiatric Exam Psychiatric exam: Normal Affect, Normal Mood Assessment and Plan - Assessment and Plan (Free Text) Assessment: 78 yo male patient seen at bedside 5 days s/p L 5th toe amputation. Plan: Patient seen and evaluated at the bed side with Dr. Gleason Chart, labs and vitals reviewed; Afebrile, no new labs L surgical site dressed with betadine, adaptic, DSD Pathology report clean margin of bone (01/31); L foot, 5th toe clean margin; bone with no evidence of acute OM Continue abx per ID Patient underwent successful revascularization of his Left LE (01/24) Patient stable from podiatry point of view, patient to follow up in wound care clinic after discharge for continued care of L 5th digit amputation site
[2018-02-05 16:47] LABS: HEPATITIS B SURFACE AG Negative (NEGATIVE)
[2018-02-05 16:53] LABS: HEPATITIS B CORE AB NEGATIVE (NEGATIVE)
[2018-02-05 17:05] LABS: HEPATITIS C ANTIBODY NEGATIVE (NEGATIVE)
--- NOTE | 2018-02-05 21:18 | PN ---
DATE: 02/05/2018 SUBJECTIVE: The patient is seen today in room 565, bed 1. The patient is seen lying in the bed. The patient's last 12-24 hours events was discussed with the patient's nurse. According to the patient's nurse, the patient was out of bed to chair. The patient is lying in the bed comfortable, sleeping. The patient was awakened. The patient is slightly less cooperative today and angry for being in the hospital and the patient is expressing interest in going home. The patient's overnight nurse's notes were reviewed. The patient was found to be episodically agitated and uncooperative. PHYSICAL EXAMINATION: VITAL SIGNS: T-max afebrile, heart rate 68, 74, 83 per minute, respiration 18-20, O2 sat between low 90s to mid 90s and high 90% oxygen saturation. The patient's blood pressure is 123/78, 134/84. GENERAL: The patient is seen lying in the bed. HEAD: Normocephalic, atraumatic. HEENT: Shows pinkish pale conjunctivae. Anicteric sclerae. No oropharyngeal lesion. No neck rigidity. CHEST: Shows upper chest pacemaker. LUNGS: Shows occasional rhonchi in upper lung [place] anteriorly. No crackles, rales or wheezing. CARDIOVASCULAR: S1, S2. Positive systolic murmur in left sternal border, right second intercostal space, left second intercostal space. ABDOMEN: Protuberant. Positive bowel sounds. No palpable hepatosplenomegaly noted. GENITALIA: Male. RECTAL: Deferred. EXTREMITIES: Shows no pitting edema, trace swelling of the lower extremity. Positive dressing of the left foot and toes noted. MUSCULOSKELETA: As per the body mass index which is elevated. PSYCHIATRIC: Negative for auditory, visual hallucination. Negative for suicidal, homicidal ideation. Negative for anxiety, depression. DIAGNOSTICS: The patient has not had any labs done since last 2-3 days despite the orders. The patient was seen by the consultants in the last 24 hours. Their recommendations were noted. IMPRESSION AND PLAN: 1. Systemic inflammatory response syndrome. 2. Methicillin-sensitive Staphylococcus aureus and Enterobacter cloacae, left fifth toe osteomyelitis versus dry gangrene versus diabetic foot ulcer. 3. Status post IV meropenem treatment. 4. Status post left fifth toe and digit amputation. 5. Severe peripheral vascular disease, status post angioplasty of the left lower extremity peripheral vascular disease. 6. Insulin-requiring diabetes mellitus. 7. Status post hypotension. 8. Hypoxemia. 9. Tachypnea. 10. Systemic inflammatory response syndrome. 11. Status post permanent pacemaker implant. 12. Right-sided diastolic congestive heart failure. 13. Obesity with elevated body mass index. 14. Constipation. 15. History of dementia, history of hypertension, hypertriglyceridemia, hyperlipidemia, prostatic hypertrophy. 1. Methicillin-sensitive Staphylococcus aureus and Enterobacter cloacae left foot fifth toe diabetic foot ulceration, dry gangrene with acute osteomyelitis. 2. Acute gangrenous necrosis with acute osteomyelitis of the left fifth toe with resection margins negative for osteomyelitis. 3. End-stage renal disease, hemodialysis dependent three times a week via the left upper extremity arteriovenous fistula. 4. Episodic hypotension. 5. Insulin-requiring diabetes mellitus. 6. Severe deconditioning and gait dysfunction. 7. Moderate oropharyngeal dysphagia. 8. Left peroneal artery atherectomy and balloon angioplasty. 9. Left anterior tibial artery angioplasty. 10. Gait dysfunction. 11. Deconditioning. 12. Pulmonary hypertension with right ventricular systolic pressure of 54 mmHg. 13. Grade 1 abnormal relaxation pattern. 14. Moderately dilated left and right atrium. 15. Mild aortic sclerosis. 16. Moderate mitral annular calcification. 17. Mild tricuspid regurgitation, mild mitral regurgitation. 18. Moderate pulmonary hypertension. 19. History of dementia. 20. History of hypertension. 21. History of prostatic hypertrophy. 22. Hyperlipidemia, hypertriglyceridemia. 23. Secondary hyperparathyroidism. 1. Episodic hypotension. 2. Enterobacter cloacae and Staphylococcus aureus left foot diabetic foot ulceration. 3. Left foot toe methicillin-sensitive Staphylococcus aureus and Enterobacter cloacae left foot toe dry gangrene, diabetic foot ulceration. 4. Severe peripheral vascular disease of the lower extremity with status post left peroneal artery atherectomy and balloon angioplasty and left anterior tibial artery angioplasty. 5. Severe peripheral vascular disease with left foot gangrene. 6. End-stage renal disease, hemodialysis dependent. 7. Severe left pedal occlusive disease. 8. Delirium. 9. History of hypertension with episodic hypotension. 10. Normocytic anemia. 11. Anemia of chronic kidney disease. 12. Status post packed red blood cell transfusion x2. 13. Elevated erythrocyte sedimentation rate. 14. Insulin-requiring diabetes mellitus with hemoglobin A1c of 6 with hyperglycemia. 15. End-stage renal disease, hemodialysis dependent. 16. Secondary hyperparathyroidism with elevated PTH. 17. Status post packed red blood cell transfusion x2. 18. Deconditioning. 19. Gait dysfunction. 20. Pulmonary hypertension with right ventricular systolic pressure of 54 mmHg and tricuspid regurgitation. 21. Left ventricular hypertrophy with left ventricle ejection fraction of 56%. 22. Grade 1 abnormal relaxation pattern. 23. Moderately dilated right and left atrium. 24. Mildly sclerotic aortic valve. 25. Moderate mitral annular calcification with mild mitral regurgitation. 26. Mild pulmonic regurgitation. 27. Status post left fifth toe and digit amputation. 1. Status post persistent refractory hypotension, etiology undetermined. 2. History of hypertension. 3. History of dementia and delirium. 4. Left foot toes methicillin-sensitive Staphylococcus aureus and Enterobacter cloacae. Left foot toes gangrene and diabetic foot ulceration. 5. Hypertension. 6. Normocytic anemia, status post packed red blood cell transfusion x2. 7. Elevated erythrocyte sedimentation rate of 57. 8. End-stage renal disease, hemodialysis dependent three times a week via the left upper extremity fistula. 9. Elevated C-reactive protein of greater than 15. 10. Status post left fifth toe amputation. 11. Permanent pacemaker implant. 12. Status post left peroneal artery atherectomy and balloon angioplasty and left tibial artery angioplasty. 13. Severe left pedal occlusive disease. 14. Moderate oropharyngeal dysphagia (resolved or resolving). 1. Postoperative left foot, left toe pain. 2. Status post left hip toe amputation, left hip toe diabetic foot ulcer and gangrene. 3. Severe peripheral vascular disease. 4. Hypertension. 5. Status post hypotension. 6. Hypoxemia. 7. Tachypnea. 8. Severe deconditioning and gait dysfunction. 9. Left fifth toe Enterobacter cloacae and Staphylococcus aureus diabetic foot ulceration and gangrene. 10. Peripheral vascular disease. 11. Normocytic anemia and anemia of chronic kidney disease. 12. Status post packed red blood cell transfusion. 13. End stage renal disease, hemodialysis dependent via the left upper extremity arteriovenous fistula three times a week. 14. Elevated C-reactive protein. 15. Secondary hyperparathyroidism with elevated parathyroid hormone and hyperphosphatemia. 16. Proteinuria, glycosuria, microscopic hematuria, pyuria, bacteruria. 17. Status post two units of packed red blood cells transfusion. 18. Permanent pacemaker implant. 19. Left foot toes dry gangrene with methicillin sensitive Staphylococcus aureus and Enterobacter cloacae. 20. None at this time. 21. [id number] oropharyngeal dysphagia. 1. Status post left fifth toe amputation. 2. Severe peripheral vascular disease, status post angioplasty of the left lower extremity. 3. Delirium. 4. Encephalopathy with episodic confusional state. 5. Status post hypotension. 6. Systemic inflammatory response syndrome. 7. Normocytic anemia. 8. Status post packed red blood cell transfusion. 9. Left foot diabetic ulceration secondary to severe peripheral vascular disease. 10. Gait dysfunction. 11. Deconditioning. 12. History of hypertension. 13. Status post permanent pacemaker implant. 14. Pulmonary hypertension. 15. Dementia. 16. History of dementia. 17. History of hypertension, hyperlipidemia, hypertriglyceridemia. 18. History of prostate hypertrophy. 19. End-stage renal disease, hemodialysis dependent three times a week via the left upper extremity AV fistula. 1. 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 2. Poor compliance. 3. Intermittent confusional state. 4. Severe peripheral vascular disease of the lower extremity. 5. Transient delirium. 6. Cerebellar and cerebral cortical atrophy. 7 Periventricular small-vessel ischemic disease of the brain. 8. Chronic ethmoid and maxillary sinusitis. 9. Moderate oropharyngeal dysphagia. 10. Hypertension. 11. Status post hypotension. 12. Normocytic anemia with decreasing hemoglobin and hematocrit. 13. Elevated erythrocyte sedimentation rate. 14. End-stage renal disease, hemodialysis dependent three times a week via the left upper extremity AV fistula. 15. Enterobacter cloacae and Staphylococcus aureus, left foot diabetic foot ulceration and left fifth toe gangrenous diabetic foot ulceration. 16. Permanent pacemaker implant. 1. Status post hypotension. 2. Left foot Enterobacter cloacae and Staphylococcus aureus diabetic foot ulceration versus osteomyelitis versus diabetic foot ulceration. 3. Left fifth toe gangrenous diabetic foot ulceration. 4. Peripheral vascular disease. 5. Bilateral lower extremity peripheral vascular disease with bilateral severe tibial occlusive disease, left more than the right. 6. Chronic fracture of the base of the fifth proximal phalanx with distal phalanx erosion. 7. Possible hypotensive versus questionable septic shock with hypotension. 8. End-stage renal disease, hemodialysis dependent three times a week via the left upper extremity AV fistula. 9. Peripheral vascular disease. 10. Transient hypoxemia. 11. Normocytic anemia. 12. Elevated erythrocyte sedimentation rate. 13. Granulocytosis. 14. Elevated C-reactive protein of greater than 15. 15. Secondary hyperparathyroidism. 16. Insulin-requiring diabetes mellitus with hemoglobin A1c of 6. 17. Proteinuria, glycosuria, microscopic hematuria, pyuria, bacteriuria. 18. Status post successful left peroneal artery atherectomy and balloon angioplasty and successful left anterior tibial artery angioplasty with severe left pedal occlusive disease. 19. Concentric left ventricular hypertrophy with grade 1 abnormal relaxation pattern. 20. Moderately dilated left and right atrium. 21. Permanent pacemaker implant. 22. Moderate mitral annular calcification. 23. Moderate pulmonary hypertension with right ventricular systolic pressure of 54 mmHg. 24. Gait dysfunction. 25. Deconditioning. 26. Constipation. 1. Status post hypotension. 2. End-stage renal disease, hemodialysis dependent. 3. Severe peripheral vascular disease, status post angioplasty. 4. Left foot diabetic nonhealing ulcer with history of osteomyelitis. 5. Status post hypotension versus shock. 6. Systemic inflammatory response syndrome. 7. Methicillin-sensitive Staphylococcus aureus and Enterobacter cloacae, dry gangrene of the left foot toes. 8. Deconditioning. 9. Gait dysfunction. 10. Moderate oropharyngeal dysphagia with moderate risk for aspiration. 11. Insulin-requiring diabetes mellitus with hemoglobin A1c of 6. 12. Pulmonary hypertension with right ventricular systolic pressure of 54 mmHg. 13. Left ventricular hypertrophy of 56%. 14. Grade 1 abnormal relaxation pattern. 15. Moderately dilated left and right atrium. 16. Mildly sclerotic aortic valve. 17. Moderate mitral annular calcification. 18. Mild tricuspid and mild mitral regurgitation. 19. Left peroneal artery atherectomy and balloon angioplasty. 20. Left anterior tibial artery angioplasty. 1. Systemic inflammatory response syndrome with hypotension. 2. Severe peripheral vascular disease. 3. Left fifth toe osteomyelitis with Enterobacter cloacae and Staphylococcus aureus on left fifth toe osteomyelitis. 4. Status post hypotension. 5. Tachypnea. 6. Hypoxemia. 7. Normocytic anemia with granulocytosis and elevated C-reactive protein. 8. End-stage renal disease, hemodialysis dependent three times a week via the left upper extremity arteriovenous fistula. 9. Elevated C-reactive protein. 10. Insulin-requiring diabetes mellitus with hemoglobin A1c of 6. 11. Elevated C-reactive protein of greater than 15. 12. Diastolic right-sided congestive heart failure with elevated right ventricular systolic pressure of 54 mmHg. 13. Left ventricular ejection fraction of 56%. 14. Grade 1 abnormal relaxation pattern. 15. Moderately dilated left and right atrium. 16. Mildly sclerotic aortic valve. 17. Moderate mitral annular calcification. 18. Mild mitral regurgitation. 19. Mild tricuspid regurgitation with moderate pulmonary hypertension and right ventricular systolic pressure of 54 mmHg with right-sided diastolic congestive heart failure. 20. Left foot base of the fifth proximal phalanx chronic fracture. 21. Extensive emphysema. 22. Right lower lobe consolidation, atelectasis with small pleural effusion. 23. Mitral valve calcification. 24. Status post abdominal aortogram and bilateral lower extremity runoff with left selective view. 25. Status post left peroneal artery atherectomy and balloon angioplasty. 26. Left anterior tibial artery angioplasty. 27. Severe peripheral vascular disease. 28. Left foot osteomyelitis and gangrene. 29. End-stage renal disease. 30. Deconditioning. 31. Gait dysfunction. 32. Left foot fifth digit gangrenous osteomyelitis. 33. Right upper extremity swelling, etiology undetermined. 34. [id number] oropharyngeal dysphagia with moderate risk for aspiration due to missing upper full dentures. Immediate cough with bite size and mixed consistency solid, liquid food with delayed swallowing initiation and slow oral transit. 1. Systemic inflammatory response syndrome. 2. Left foot toes osteomyelitis secondary to Enterobacter cloacae and Staphylococcus aureus, left foot toe diabetic ulceration and osteomyelitis. 3. Status post hypotension. 4. Hypertension. 5. Elevated erythrocyte sedimentation rate of 57. 6. Anemia of chronic disease. 7. Hypocalcemia. 9. Insulin-requiring diabetes mellitus with hemoglobin A1c of 6. 10. Hyperphosphatemia. 11. Elevated C-reactive protein. 12. Gait dysfunction. 13. Deconditioning. 14. End-stage renal disease, hemodialysis dependent via the left upper extremity AV fistula. 15. Proteinuria, glycosuria, microscopic hematuria, pyuria, bacteriuria. 1. Status post severe symptomatic hypotension. 2. Severe peripheral vascular disease with bilateral tibial occlusive disease, status post angiogram. status post left tibial artery angioplasty, left peroneal artery angioplasty. 3. End-stage renal disease, hemodialysis dependent. 4. Tachypnea. 5. Normocytic anemia with granulocytosis 6. Elevated erythrocyte sedimentation rate of 57. 7. Hypocalcemia, hyperphosphatemia. 8. Elevated C-reactive protein of greater than 15. 9. Secondary hyperparathyroidism. 10. Well-controlled insulin-requiring diabetes mellitus with hemoglobin A1c of 6. 11. Left foot and left lower extremity gram-negative hailey, gram-positive cocci, left foot, left lower extremity cellulitis, diabetic ulceration and possible osteomyelitis. 12. Status post abdominal aortogram, bilateral lower extremity runoff with non-selective view. 13. Status post left peroneal artery atherectomy and balloon angioplasty. 14. Left anterior tibial artery angioplasty. 15. Severe left lower extremity pedal occlusive disease. 16. Deconditioning. 17. Gait dysfunction. 18. Poor intravenous access. 19. Upper lobe extensive emphysema with right lower lobe consolidation with effusion. 20. Mitral valve calcification. 21. Left fifth proximal phalanx chronic fracture of the base. 22. Left foot third toe amputation. 23. Left ventricle ejection fraction of 55% with pulmonary hypertension and right ventricular systolic pressure of 54 mmHg. 24. Concentric left ventricular hypertrophy with grade 1 abnormal relaxation pattern. 25. Permanent pacemaker implant. 26. Moderately dilated right and left atrium. 27. Mild aortic valve sclerosis. 28. Moderate mitral annular calcification with mild mitral regurgitation. 29. Mild tricuspid regurgitation with moderate pulmonary hypertension with right ventricular systolic pressure of 54 mmHg. 30. Anemia of chronic disease. 31. Left fifth digit gangrene and diabetic ulceration and gangrene. 32. Chronic obstructive pulmonary disease. 33. Poor intravenous access. 34. Systemic inflammatory response syndrome. 35. Hypotension probably secondary to over hemodialysis. 36. Left fifth toe necrotic. 1. Severe symptomatic hypotension. 2. Left foot osteomyelitis, status post intravenous antibiotic treatment. 3. Tachypnea. 4. Hypoxemia. 5. Normocytic anemia. 6. Granulocytosis. 7. Elevated erythrocyte sedimentation rate of 57. 8. End-stage renal disease, hemodialysis dependent three times a week via left upper extremity arteriovenous fistula. 9. Hyperphosphatemia and secondary hyperparathyroidism. 10. Elevated C-reactive protein of greater than 15. 11. Questionable congestive heart failure with elevated BNP versus volume overload and fluid overload. 12. 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 13. Bilateral lower extremity peripheral arterial disease with bilateral tibial occlusive disease, left greater than the right. 14. Bilateral lower extremity venous stasis. 15. Questionable congestive heart failure with pulmonary vascular congestion and cardiomegaly. 16. Insulin-requiring diabetes mellitus. 17. Permanent pacemaker implant. 18. Left foot fifth toe diabetic ulceration versus osteomyelitis. 19. Left foot fifth digit gangrene and gangrenous ulcer. 20. Severe peripheral vascular disease. 21. Secondary hyperparathyroidism. 22. History of hypertension, chronic obstructive pulmonary disease. 23. History of questionable poor healing left foot diabetic ulceration and gangrenous diabetic ulceration and osteomyelitis. 24. Status post left foot third toe amputation. 25. Severe emphysema of the upper lobes and right lower lobe atelectasis, consolidation and small pleural effusion. 26. Mitral valve calcification. 27. Deconditioning. 28. Constipation. 1. History of left foot osteomyelitis, status post intravenous antibiotic treatment. 2. End-stage renal disease, hemodialysis dependent. 3. History of hypertension. 4. Persistent refractory hypotension, etiology undetermined. 5. Hypoxemia. 6. Normocytic anemia with granulocytosis. 7. Elevated BNP, etiology undetermined. 8. Elevated C-reactive protein. 9. Peripheral vascular disease of the lower extremity. 10. Bilateral lower extremity venous stasis. 11. Gait dysfunction. 12. Deconditioning. 13. Cardiomegaly with mild pulmonary vascular congestion. 14. History of dementia. 15. History of permanent pacemaker implant. 16. History of prostatic hypertrophy, history of hypertriglyceridemia, history of secondary hyperparathyroidism. 17. Insulin-requiring diabetes mellitus. 18. Sick sinus syndrome. 19. History of left foot toe amputation. 20. Diabetic foot ulcer. 21. Left upper extremity arteriovenous fistula. 22. Left hand finger amputation. 23. History of nicotine dependence. 24. Sepsis. 25. Pneumonia. 26. Pulmonary hypertension with moderate concentric left ventricular hypertrophy. 27. Moderate mitral annular calcification. 28. Moderate pulmonary hypertension with right ventricular systolic pressure of 53 mmHg. 29. History of respiratory failure. 30. Oropharyngeal candidiasis. 31. Macroglossia. 32. Hypovitaminosis D. 33. History of sepsis secondary to healthcare-associated pneumonia, epiglottitis, and oropharyngeal candidiasis. 34. Uncontrolled diabetes mellitus. 35. History of BiPAP-requiring respiratory failure. 36. Obesity. 37. Hyperprocalcitoninemia . 38. Sinusitis. 39. History of chronic obstructive pulmonary disease exacerbation. 40. 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 41. Pulmonary emphysema. PLAN: At this time, the patient is to be continued on physical therapy, ambulation therapy, occupational therapy, gait training. The patient has been ordered out of bed to chair. We are awaiting. The patient's IV antibiotics has been stopped by Dr. Singh yesterday. As the patient has completed 10 days of IV meropenem, which was completed yesterday. At present, the patient is off the IV antibiotic. Depending upon the above situation, the patient's discharge options need to be explored and determined. Whether the patient will be eligible for subacute rehab versus home with services depending upon the patient's insurance approval and recommendation by Physical Therapy, Occupational Therapy and acceptance and approval by the patient's insurance and the rehab facility. The patient's condition, diagnosis, diagnostic test results all the details of her present hospitalization has been updated and discussed with the patient and the patient's on multiple occasions during this hospitalization and I have also explained to the patient and the patient's to work in collaboration with the social media marketing analyst case management with discharge planning options. The patient's will be continued on the therapeutic intervention and medications as per the MAR of today which has been reviewed and updated. In addition, the patient has been ordered out of bed to recliner and chair every day. Dictated and electronically signed, not read. Oleg Whitman MD MTDD
[2018-02-06] MEDS: Levalbuterol 0.63 MG/3 ML Inhal Soln UD IH SCH ×3 (01:19→13:21)
--- NOTE | 2018-02-06 02:09 | PN ---
DATE: 02/05/2018 SUBJECTIVE: The patient is in bed, was seen earlier this morning in 565, bed 1. No fevers, no chills, no nausea. PHYSICAL EXAMINATION: VITAL SIGNS: On exam, temperature is 98, blood pressure is a 120/60, respiratory rate of 18. HEENT: Examination of HEENT is unremarkable. NECK: Supple. LUNGS: Have decreased breath sounds. HEART: Normal S1 and S2. ABDOMEN: Soft, nontender. LABORATORY DATA: Laboratory examination reveals a white count of 6.2, hemoglobin of 9, platelets of 153. Chemistries reveals creatinine is 5.6. Urinalysis is noted. Serology is noted. Microbiology reveals the left foot and calf muscles cultures are Enterobacter and Staph aureus. The nasal MRSA screen is negative. The blood cultures are no growth. Enterobacter cloacae and Staph aureus. The Staph aureus is pansensitive. Enterobacter cloacae is also sensitive. ASSESSMENT AND PLAN: AN 78-year-old male with a dry gangrene of left foot with sensitive Staphylococcus aureus, Enterobacter and osteomyelitis, peripheral artery disease, status post left fifth digit amputation bone resection margin is clear. The patient has received 10 days of antibiotics of meropenem with end-stage renal disease, on hemodialysis, diabetic. Review of orders reveals the patient is off of antibiotics at this point. The patient is at risk for developing nosocomial infections. Long Lance MD
[2018-02-06] MEDS: Pantoprazole 40 mg EC Tab PO SCH (05:44)
[2018-02-06 07:48] VITALS: PULSE 66; RESP 20; TEMP 97.9; O2SAT 98
[2018-02-06 08:19] VITALS: BP 147/63
--- NOTE | 2018-02-06 08:41 | CP.PCM.PN ---
Subjective - Date & Time of Evaluation Date of Evaluation: 02/06/18 Time of Evaluation: 08:37 - Subjective Subjective: Podiatry progress note for Dr. Maher: 78 yo male patient seen at bedside 6 days s/p L 5th toe amputation. Patient is resting comfortably and denies any pain to the area. He denies any other pedal complaints at this time. Denies N/V/F/SOB. Objective - Vital Signs/Intake and Output Vital Signs (last 24 hours): Temp Pulse Resp BP Pulse Ox 97.9 F 66 20 147/63 98 02/06/18 06:00 02/06/18 06:00 02/06/18 06:00 02/06/18 08:15 02/06/18 06:00 Intake and Output: 02/06/18 02/06/18 06:59 18:59 Intake Total 240 Balance 240 - Medications Medications: Current Medications Acetaminophen (Tylenol 325mg Tab) 650 mg PO Q6 PRN PRN Reason: TEMP>=99.5F Last Admin: 01/29/18 21:21 Dose: 650 mg Acetaminophen (Tylenol 650 Mg Supp) 650 mg RC Q6H PRN PRN Reason: TEMP>=99.5F Amlodipine Besylate (Norvasc) 10 mg PO DAILY [facility] Last Admin: 02/06/18 08:09 Dose: 10 mg Aspirin (Aspirin) 325 mg PO DAILY [facility] Last Admin: 02/05/18 10:36 Dose: Not Given Atorvastatin Calcium (Lipitor) 40 mg PO [facility] Last Admin: 02/05/18 22:25 Dose: 40 mg Benzonatate (Tessalon Perles) 200 mg PO TID [facility] Last Admin: 02/05/18 18:13 Dose: 200 mg Calcium Acetate (Phoslo) 667 mg PO TID [facility] Last Admin: 02/06/18 08:10 Dose: 667 mg Carvedilol (Coreg) 25 mg PO BID [facility] Last Admin: 02/05/18 18:31 Dose: 25 mg Dextrose (Dextrose 50% Inj) 25 ml IV STAT PRN; Protocol PRN Reason: Hypoglycemia Protocol Docusate Sodium (Colace) 100 mg PO TID [facility] Last Admin: 02/05/18 18:24 Dose: 100 mg Donepezil HCl (Aricept) 10 mg PO [facility] Last Admin: 02/05/18 22:25 Dose: 10 mg Doxazosin Mesylate (Cardura) 2 mg PO BID [facility] Last Admin: 02/05/18 18:23 Dose: 2 mg Gabapentin (Neurontin) 100 mg PO HS [facility]; Protocol Last Admin: 02/05/18 22:24 Dose: 100 mg Hydralazine HCl (Apresoline) 50 mg PO 0700,1800 [facility] Last Admin: 02/06/18 08:09 Dose: 50 mg Dextrose (Dextrose 5% In Water 1000 Ml) 1,000 mls @ 0 mls/hr IV .Q0M PRN; Protocol PRN Reason: Hypoglycemia Protocol Insulin Human Regular (Humulin R Med) 0 units SC ACHS [facility]; Protocol Last Admin: 02/05/18 22:20 Dose: Not Given Levalbuterol HCl (Xopenex) 0.63 mg IH [id number] [facility] Last Admin: 02/06/18 07:29 Dose: 0.63 mg Lidocaine (Lidoderm) 1 ea TD DAILY [facility] Last Admin: 02/05/18 10:40 Dose: 1 ea Losartan Potassium (Cozaar) 100 mg PO DAILY [facility] Last Admin: 02/05/18 10:35 Dose: 100 mg Memantine (Namenda) 5 mg PO BID [facility] Last Admin: 02/05/18 18:13 Dose: 5 mg [id number] Ethyl Esters (Lovaza) 1 gm PO BID [facility] Last Admin: 02/05/18 18:13 Dose: 1 gm Ondansetron HCl (Zofran Inj) 4 mg IVP Q4H PRN PRN Reason: Nausea/Vomiting Pantoprazole Sodium (Protonix Ec Tab) 40 mg PO 0600 [facility] Last Admin: 02/06/18 05:44 Dose: 40 mg Tamsulosin HCl (Flomax) 0.4 mg PO DAILY [facility] Last Admin: 02/05/18 10:36 Dose: 0.4 mg Tramadol HCl (Ultram) 50 mg PO TID PRN PRN Reason: Pain, moderate (4-7) Last Admin: 02/03/18 10:31 Dose: 50 mg - Labs Labs: 02/02/18 10:00 02/02/18 10:00 PT 12.9 SECONDS (9.4-12.5) H 02/02/18 10:00 INR 1.12 02/02/18 10:00 APTT 37.0 Seconds (25.1-36.5) H 02/02/18 10:00 - Constitutional Appears: Well, Non-toxic, No Acute Distress - Head Exam Head Exam: ATRAUMATIC, NORMOCEPHALIC - Extremities Exam Additional comments: LLE focused exam: Vasc: PT, DP pulses palpable, Cap refill time < 3 sec in all remaining digits, no edema noted to the left foot Ortho: No tenderness to palpation to surgical site Neuro: Protective sensation diminished, gross sensation intact bilaterally Derm: Surgical site intact with skin edges well coapted, sutures intact, no evidence of dehiscence, no erythema, no cellulitis, no purulence, no malodor, no drainage noted, no clinical signs of infection - Neurological Exam Neurological Exam: Alert, Awake, Oriented x3 - Psychiatric Exam Psychiatric exam: Normal Affect, Normal Mood Assessment and Plan - Assessment and Plan (Free Text) Assessment: 78 yo male patient seen at bedside 6 days s/p L 5th toe amputation. Plan: Patient seen and evaluated with Dr. Maher Plan discussed in detail with Dr. Maher Chart, labs and vitals reviewed; no new labs L surgical site dressed with Silvercel, adaptic, DSD; dressing may be left intact for 1 week Patient to ambulate in surgical shoe Pathology report clean margin of bone (01/31); L foot, 5th toe clean margin; bone with no evidence of acute OM Patient stable from podiatry point of view, patient to follow up in wound care clinic after discharge for continued care of L 5th digit amputation site
[2018-02-06] MEDS: Insulin Reg-MEDIUM-Coverage SC SCH ×2 (11:30→17:00)
[2018-02-06] MEDS: Lidocaine 5% Patch TD SCH (14:20)
[2018-02-06] MEDS: Omega-3-Acid Ethyl Esters 1 GM Cap PO SCH ×2 (14:23→18:35)
--- NOTE | 2018-02-06 14:25 | PN ---
DATE: 02/05/2018 SUBJECTIVE: The patient is seen lying in bed. He seems to be sleeping. He does not appear to be in any kind of distress. PHYSICAL EXAMINATION: VITAL SIGNS: Blood pressure 130/62, heart rate 74, respiratory rate 18, temperature 97.9. HEENT: Normocephalic, atraumatic, positive pallor. NECK: Supple, no JVD. LUNGS: Bilateral equal air entry, bilateral equal expansion. CARDIAC: S1 and S2, regular rate and rhythm, no murmur, no rub. ABDOMEN: Obese, distended, soft, nontender, bowel sounds present. EXTREMITIES: Dressing of the left foot, chronic stasis changes. INTAKE AND OUTPUT: Not charted. LABORATORY DATA: No new labs. MEDICATIONS: Apresoline, Aricept, Cardura, aspirin, Colace, Coreg, Cozaar, Flomax, Lipitor, Namenda, gabapentin, amlodipine, PhosLo, Protonix, Zofran. ASSESSMENT: 1. Dry gangrene left foot, status post left fifth toe amputation. 2. Status post severe sepsis, hypotension. 3. Noninsulin-dependent diabetes mellitus. 4. Hypertension. 5. End-stage renal disease. 6. Peripheral vascular disease. PLAN: 1. Stable dialysis yesterday. 2. Continue antibiotics as per ID recommendations. 3. Continue current antihypertensives. 4. Next dialysis will be tomorrow. Yadira Fox MD
--- NOTE | 2018-02-06 16:36 | PN ---
DATE: 02/06/2018 SUBJECTIVE: The patient is seen in the dialysis unit. He is awake, he is alert. Somewhat groggy. PHYSICAL EXAMINATION: GENERAL: Elderly male lying in bed. VITAL SIGNS: Blood pressure 147/63, heart rate 66, respiratory rate 18 to 20, temperature 97.9. HEENT: Normocephalic, atraumatic, positive pallor. NECK: Supple, no JVD. LUNGS: Bilateral equal air entry, bilateral equal expansion. CARDIAC: S1 and S2, regular rate and rhythm, no murmur, no rub. ABDOMEN: Obese, distended, soft, nontender, bowel sounds present. EXTREMITIES: Dressing of the left foot, chronic stasis changes, dry skin. LABORATORY DATA: Not charted. MEDICATIONS: Apresoline 50 b.i.d., Aricept, aspirin, Cardura 2 mg b.i.d., Colace 100 t.i.d., Coreg 25 b.i.d., losartan 100, Flomax 0.4, insulin, Lidoderm, Lipitor 40, Lovaza, Namenda, gabapentin 100 at bedtime, amlodipine 10, PhosLo 667 t.i.d., Protonix 40, Tylenol, Xopenex, and Zofran. ASSESSMENT: 1. Dry gangrene in the left foot, status post amputation of left fifth toe. 2. Peripheral vascular disease. 3. Status post sepsis/hypotension. 4. Bow-fpmrwgv-xhbiwlaab diabetes. 5. Severe hypertension. 6. End-stage renal disease. 7. Anemia of chronic disease. PLAN: 1. Stable dialysis today. 2. Continue antibiotics as per ID recommendations. 3. Wound care as per Podiatry. 4. Monitor fingersticks and continue insulin coverage. 5. Physical therapy. Yadira Fox MD
--- NOTE | 2018-02-06 22:28 | PN ---
DATE: 02/06/2018 SUBJECTIVE: The patient was seen early this morning in room 565, bed 1. The patient has no fevers, no chills. No nausea, is comfortable. PHYSICAL EXAMINATION: VITAL SIGNS: On exam, temperature is 98, blood pressure is 180/90, respiratory rate of 18, heart rate of 66. HEENT: Examination of HEENT is unremarkable. NECK: Supple. LUNGS: Have decreased breath sounds. HEART: Normal S1, S2. ABDOMEN: Soft, nontender. No rebound or guarding. LABORATORY DATA: Laboratory examination reveals a white count of 6.2, hemoglobin of 9. Chemistries are noted and urinalysis is noted and microbiology is reviewed with Enterobacter and Staph aureus. ASSESSMENT AND PLAN: An 78-year-old male with right gangrene of left foot, sensitive Staphylococcus aureus, Enterobacter, osteomyelitis, peripheral artery disease, status post left fifth digit amputation, bone resection, margin clear, has received 10 days of meropenem, end-stage renal disease, hemodialysis, off of antibiotics. Risk for developing nosocomial infections. Long Lance MD
--- NOTE | 2018-02-07 05:25 | DS ---
SUMMARY: The patient is seen in dialysis. The patient is seen lying in the bed. The patient is alert, awake, responsive, oriented. Overnight nurse's notes were reviewed. The patient was found to be alert, awake, oriented x3, cooperative. No adverse events noted. PHYSICAL EXAMINATION: VITAL SIGNS: T-max 97.9, pulse 66, blood pressure 147/63, respirations 20, O2 sat 98%. GENERAL: The patient is seen lying in the stretcher in the dialysis. The patient in the process of getting dialysis. The patient is alert, awake, oriented x3. HEAD: Normocephalic, atraumatic. HEENT examination shows pinkish conjunctivae. Anicteric sclerae. No oropharyngeal lesion. No neck rigidity. CHEST: Kyphosis. Positive upper chest pacemaker noted. CARDIOVASCULAR: S1, S2, regular rhythm. No audible murmur, gallop or rub at this time. ABDOMEN: Soft, slightly protuberant. No hepatosplenomegaly noted. GENITALIA: Male. RECTAL: Deferred. EXTREMITIES: Shows positive left upper extremity AV fistula, positive thrill. Lower extremity shows no pitting edema. Positive left foot dressing. MUSCULOSKELETAL: Shows a body mass index of almost 42. NEUROLOGIC: The patient is alert, awake, oriented x3. Cranial nerves II-XII intact and limited. Gait examination not tested. PSYCHIATRIC: Negative. DIAGNOSTIC DATA: None from today. The patient has refused lab work in the last couple of days. Fingerstick blood sugar, 109, 115, 151, 104, 98. FINAL IMPRESSION, PLAN AND DISCHARGE DIAGNOSES: 1. Systemic inflammatory response syndrome with hypotension, tachycardia. 2. Left foot fifth toe Enterobacter cloacae and methicillin-sensitive Staphylococcus aureus diabetic foot ulcer, osteomyelitis. 3. Status post left fifth toe amputation. 4. Status post hypotension. 5. History of hypertension. 6. Anemia. 7. Status post packed red blood cell transfusion x2. 8. End-stage renal disease, hemodialysis dependent 3 times a week via the left upper extremity arteriovenous fistula. 9. Insulin-requiring diabetes mellitus. 10. Elevated C-reactive protein of greater than 15. 11. Secondary hyperparathyroidism with elevated PTH of 193. 12. Proteinuria, glycosuria, hematuria, pyuria, bacteriuria. 13. Dementia. 14. Encephalopathy with episodic confusion and disorientation. 15. Cortical and cerebellar atrophy and periventricular small-vessel ischemic disease of the brain. 16. Chronic ethmoid and maxillary sinus disease. 17. Left upper extremity arteriovenous fistula. 18. Peripheral vascular disease. 19. Bilateral upper lobe extensive emphysema with right lower lobe consolidation, atelectasis with small effusion. 20. Left fifth toe diabetic ulcer, gangrenous necrosis and acute osteomyelitis with resection margin negative for osteomyelitis. 21. Status post angioplasty and atherectomy of the left peroneal artery and left anterior tibial artery angioplasty. 22. Severe peripheral vascular disease of the lower extremity with severe left pedal occlusive disease. 23. Constipation. 24. Hypertension. 25. Prostatic hypertrophy. 26. Hyperlipidemia, hypertriglyceridemia. 27. Diabetic neuropathy. 28. Secondary hyperparathyroidism. PLAN: At this time as mentioned above, the patient has categorically refused to go to rehab or TCU and the patient repeatedly more than 3 times has clearly stated that the patient wishes to go home. The patient was seen and examined with the manager medical affairs and the patient persisted that he wants to go home and not to rehab or Transitional Care Unit. At present, in view of the above situation, the patient's case will be referred for discharge planning to discharge home with VNA, Home Health aide, home PT. Follow up with Dr. Whitman within 1 week. Follow up with Dr. Maher within 1 week. The patient's discharge medications and updated discharge medications are as follows: The patient is discharged on Norvasc 10 mg daily, aspirin 325 mg daily, Lipitor 40 mg daily PhosLo 667 mg 3 times a day, Coreg 25 mg twice a day, Colace 100 mg 3 times a day, Aricept 10 mg daily, Cardura 2 mg twice a day, Neurontin 100 mg at bedtime, hydralazine 100 mg twice a day, Toujeo SoloSTAR 10 units at bedtime, Lidoderm 5% patch to the affected area, Cozaar 100 mg daily, Namenda 5 mg twice a day, Lovaza 1-2 g twice a day, Protonix 40 mg daily, Flomax 0.4 mg daily. At present, the patient has categorically declined to go to subacute rehab or TCU and has expressed multiple times that he wants to go home, so in view of the above patient's decision, the patient will be considered for discharge home if the patient's family agrees. The patient's family will be notified that the patient wishes to go home. Dictated and electronically signed, not read. Oleg Whitman MD
== END 2018-02-06 21:52 | disposition home or self-care (01) | DRG 270 ==
LOC: ED 10:00 → OBSVTOIN 12:05 → ERH 12:05 → ICU 14:43 → 5RNO 01-28 18:43
PROVIDERS: ADMIT Internal Medicine; ATTEND Internal Medicine
PROC: 5A1D70Z Performance of Urinary Filtration, Intermittent, Less than 6 Hours Per Day (ICD-10-PCS; 2018-01-23)
PROC: [UNRECOGNIZED PROCEDURE] (2018-01-24)
PROC: 04CQ3ZZ Extirpation of Matter from Left Anterior Tibial Artery, Percutaneous Approach (ICD-10-PCS; 2018-01-24)
PROC: 047U3ZZ Dilation of Left Peroneal Artery, Percutaneous Approach (ICD-10-PCS; 2018-01-24)
PROC: 5A1D70Z Performance of Urinary Filtration, Intermittent, Less than 6 Hours Per Day (ICD-10-PCS; 2018-01-28)
PROC: 5A1D70Z Performance of Urinary Filtration, Intermittent, Less than 6 Hours Per Day (ICD-10-PCS; 2018-01-30)
PROC: 0Y6Y0Z0 Detachment at Left 5th Toe, Complete, Open Approach (ICD-10-PCS; principal; 2018-01-31 07:30)
PROC: 5A1D70Z Performance of Urinary Filtration, Intermittent, Less than 6 Hours Per Day (ICD-10-PCS; 2018-02-01)
PROC: 5A1D70Z Performance of Urinary Filtration, Intermittent, Less than 6 Hours Per Day (ICD-10-PCS; 2018-02-04)
PROC: 5A1D70Z Performance of Urinary Filtration, Intermittent, Less than 6 Hours Per Day (ICD-10-PCS; 2018-02-06)
DX: E11.52 Type 2 diabetes mellitus with diabetic peripheral angiopathy with gangrene (principal); N18.6 End stage renal disease; A41.9 Sepsis, unspecified organism; R65.21 Severe sepsis with septic shock; G93.40 Encephalopathy, unspecified; I13.2 Hypertensive heart and chronic kidney disease with heart failure and with stage 5 chronic kidney disease, or end stage renal disease; Z68.41 Body mass index [BMI] 40.0-44.9, adult; L97.229 Non-pressure chronic ulcer of left calf with unspecified severity; I42.9 Cardiomyopathy, unspecified; I50.40 Unspecified combined systolic (congestive) and diastolic (congestive) heart failure; L03.116 Cellulitis of left lower limb; B37.0 Candidal stomatitis; B37.89 Other sites of candidiasis; J44.0 Chronic obstructive pulmonary disease with (acute) lower respiratory infection; J98.11 Atelectasis; M86.172 Other acute osteomyelitis, left ankle and foot; N25.81 Secondary hyperparathyroidism of renal origin; N39.0 Urinary tract infection, site not specified; Z99.2 Dependence on renal dialysis; E11.22 Type 2 diabetes mellitus with diabetic chronic kidney disease; I50.9 Heart failure, unspecified; E11.40 Type 2 diabetes mellitus with diabetic neuropathy, unspecified; E11.621 Type 2 diabetes mellitus with foot ulcer; E11.628 Type 2 diabetes mellitus with other skin complications; E11.65 Type 2 diabetes mellitus with hyperglycemia; L97.529 Non-pressure chronic ulcer of other part of left foot with unspecified severity; E11.69 Type 2 diabetes mellitus with other specified complication; I27.20 Pulmonary hypertension, unspecified; E66.9 Obesity, unspecified; D63.1 Anemia in chronic kidney disease; Z87.891 Personal history of nicotine dependence; Z86.73 Personal history of transient ischemic attack (TIA), and cerebral infarction without residual deficits; R09.02 Hypoxemia; I25.10 Atherosclerotic heart disease of native coronary artery without angina pectoris; E11.622 Type 2 diabetes mellitus with other skin ulcer; I95.3 Hypotension of hemodialysis; E66.01 Morbid (severe) obesity due to excess calories; G89.29 Other chronic pain; M54.5 Low back pain; E11.36 Type 2 diabetes mellitus with diabetic cataract; E55.9 Vitamin D deficiency, unspecified; E78.1 Pure hyperglyceridemia; E78.5 Hyperlipidemia, unspecified; E83.39 Other disorders of phosphorus metabolism; E83.51 Hypocalcemia; F03.90 Unspecified dementia, unspecified severity, without behavioral disturbance, psychotic disturbance, mood disturbance, and anxiety; H53.2 Diplopia; I08.3 Combined rheumatic disorders of mitral, aortic and tricuspid valves; I49.5 Sick sinus syndrome; I70.0 Atherosclerosis of aorta; I87.8 Other specified disorders of veins; J32.0 Chronic maxillary sinusitis; J32.2 Chronic ethmoidal sinusitis; K21.9 Gastro-esophageal reflux disease without esophagitis; K59.00 Constipation, unspecified; N40.0 Benign prostatic hyperplasia without lower urinary tract symptoms; Q38.2 Macroglossia; R13.12 Dysphagia, oropharyngeal phase; R31.29 Other microscopic hematuria; Z79.4 Long term (current) use of insulin; Z79.899 Other long term (current) drug therapy; Z89.022 Acquired absence of left finger(s)

== ENCOUNTER 2018-02-08 09:23 | Inpatient (IN) | payer MEDICARE, BC ==
[2018-02-08 09:23] VITALS: BMI 32.8
--- NOTE | 2018-02-08 09:42 | ED PDOC ---
Arrival/HPI - General Chief Complaint: Altered Mental Status Time Seen by Provider: 02/08/18 09:29 Historian: Spouse EM Caveat: Altered Mental Status - History of Present Illness Narrative History of Present Illness (Text): 02/08/18 9:41 78 year old male whose past medical history includes hyperlipidemia , hypertension, hypoparathryoidism, and diabetes, who presents to the Emergency department for AMS. Patient was recently discharged from here and his states that since that time has been acting differently and not himself. He has occasional twitches in his left or right arms. states patient appears confused and drinks and eats ok. Patient has been continuing antibiotic treatment and has no reports of fevers. Patient has a history of hemodialysis, which he receives every Sunday, Sunday, and Sunday. 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 Time/Duration: < week Past Medical History - Provider Review Nursing Documentation Reviewed: Yes - Infectious Disease Hx of Infectious Diseases: None - Cardiac Hx Pacemaker: Yes - Pulmonary Hx Chronic Obstructive Pulmonary Disease (COPD): Yes - Neurological Hx Neurological Disorder: No - HEENT Hx HEENT Disorder: Yes Hx Cataracts: Yes Other/Comment: double vision/decreased vision to the left eye;decreased hearing - Renal Hx Renal Failure: Yes (on HD MWF) - Endocrine/Metabolic Hx Diabetes Mellitus Type 2: Yes - Hematological/Oncological Hx Cancer: No - Integumentary Hx Cellulitis: Yes - Musculoskeletal/Rheumatological Hx Falls: No Hx Osteomyelitis: Yes - Gastrointestinal Hx Gastrointestinal Disorders: No - Genitourinary/Gynecological Hx Genitourinary Disorders: No Hx Reproductive Disorders: No - Psychiatric Hx Psychophysiologic Disorder: No Hx Substance Use: No - Surgical History Hx Mastectomy: No - Anesthesia Hx Anesthesia Reactions: No Hx Malignant Hyperthermia: No - Suicidal Assessment Feels Threatened In Home Enviroment: No Family/Social History - Physician Review Nursing Documentation Reviewed: Yes Family/Social History: No Known Family HX Smoking Status: Former Smoker Hx Alcohol Use: No Hx Substance Use: No Allergies/Home Meds Allergies/Adverse Reactions: Allergies No Known Allergies Allergy (Verified 01/23/18 10:11) Review of Systems - Review of Systems Systems not reviewed;Unavailable: Altered Mental Status Constitutional: absent: Fevers Respiratory: absent: SOB Cardiovascular: absent: Chest Pain Gastrointestinal: absent: Abdominal Pain Musculoskeletal: Other (left foot post surgical pain). absent: Myalgias Physical Exam Vital Signs Reviewed: Yes Temperature: Afebrile Blood Pressure: Hypotensive Pulse: Regular Respiratory Rate: Normal Mental Status: Positive for: other (Alert and orientedx2) - Systems Exam Head: Present: Atraumatic, Normocephalic Pupils: Present: PERRL Extroacular Muscles: Present: EOMI Conjunctiva: Present: Normal Mouth: Present: Dry Neck: Present: Normal Range of Motion Respiratory/Chest: Present: Clear to Auscultation, Good Air Exchange. No: Respiratory Distress, Accessory Muscle Use Cardiovascular: Present: Regular Rate and Rhythm, Normal S1, S2. No: Murmurs Abdomen: No: Tenderness, Distention, Peritoneal Signs Back: Present: Normal Inspection Upper Extremity: Present: Normal Inspection. No: Cyanosis, Edema Lower Extremity: Present: Other (Left foot 5th toe amputated with sutures in place. No reddness, no Warmth, no pus.). No: Edema Neurological: Present: GCS=15, CN II-XII Intact, Speech Normal Skin: Present: Warm, Dry, Normal Color. No: Rashes Psychiatric: Present: Alert, Normal Insight, Normal Concentration Medical Decision Making ED Course and Treatment: 02/08/18 09:41 Impression: 78 year old male who presents to the Emergency department with his for AMS. Differential Diagnosis included but are not limited to: Altered mental status, rule out sepsis, rule out seizure. Plan: -- Head CT without contrast -- EKG -- IV fluids -- Blood and urine culture -- Urinalysis -- Reassess and disposition Prior Visits: Notes and results from previous visits were reviewed. Progress Notes: 02/08/18 09:41 EKG shows paced at 73 bpm, paced rhythm. Interpreted by me. 02/08/18 12:48 Procedure: Head CT without contrast Impression: Generalized atrophy. Moderate nonspecific white matter changes. Small chronic appearing left basal ganglia lacunar infarcts. Partial opacification of the right maxillary sinus with increased attenuation of some contents which may indicate proteinaceous material or fungal colonization. Dictator: Lorena Chi MD 02/08/18 13:08 Patient is noted in the ED to have intermittent hypotension 91/43 which improved to 116/45 but then back to 90's/50's. He was noted to have twitching episodes of his right arm and then left but while having these would talk to me saying he was fine. As per he has these at home and almost falls every time. He is a high fall risk. Dr. Aggarwal evaluated patient in the hospital for similar symptoms. Patient is due for dialysis today. Lungs are clear and he denies any shortness of breathe. No emergent need at this time for dialysis. After 500mL of NS he still has clear lungs and no acute respiratory symptoms. Case discussed with Dr. Whitman who agrees with patient admission to telemetry for intermittent hypotension and confusion. He advises consult with Dr. Aggarwal. Consult was places. - Critical Care Critical Care Minutes: 30 minutes - Lab Interpretations I have reviewed the lab results: Yes - EKG Interpretation Interpreted by ED Physician: Yes Type: 12 lead EKG - Scribe Statement The provider has reviewed the documentation as recorded by the Scribe Ry Hernandez Provider Scribe Attestation: All medical record entries made by the Scribe were at my direction and personally dictated by me. I have reviewed the chart and agree that the record accurately reflects my personal performance of the history, physical exam, medical decision making, and the department course for this patient. I have also personally directed, reviewed, and agree with the discharge instructions and disposition. Disposition/Present on Arrival - Present on Arrival Any Indicators Present on Arrival: No History of DVT/PE: No History of Uncontrolled Diabetes: No Urinary Catheter: No History Surgical Site Infection Following: None - Disposition Have Diagnosis and Disposition been Completed?: Yes Diagnosis: Hypotension, Altered mental status, Twitching Disposition: HOSPITALIZED Disposition Time: 13:18 Patient Plan: Observation Condition: FAIR Forms: [employer] ([place]ux[place]ish)
[2018-02-08] MEDS ORDERED: Sodium Chloride 0.9% 500 ML IV STA (10:21)
[2018-02-08 10:48] LABS: BASO # 0.04 K/mm3 (0.0-2.0); BASO % 0.4 % (0.0-3.0); EOS # 0.2 (0.0-0.7); EOS % 2.2 % (1.5-5.0); GRAN # 6.99 (1.4-6.5); GRAN % 69.4 % (50.0-68.0); HEMOGLOBIN 11.1 g/dL (14.0-18.0); LYMPH # 1.9 (1.2-3.4); LYMPH % 19.1 % (22.0-35.0); MEAN CELL VOLUME 86.2 fl (80.0-105.0); MEAN CORPUSCULAR HEMOGLOBIN 26.9 pg (25.0-35.0); MEAN CORPUSCULAR HGB CONC 31.3 g/dl (31.0-37.0); MEAN PLATELET VOLUME 10.9 fl (7.0-11.0); MONO # 0.9 (0.1-0.6); MONO % 8.9 % (1.0-6.0); RBC 4.12 10^6/uL (3.5-6.1); WHITE BLOOD COUNT 10.1 10^3/ul (4.5-11.0)
[2018-02-08 10:58] LABS: INR 1.11; PROTHROMBIN TIME 12.8 SECONDS (9.4-12.5)
[2018-02-08 11:09] LABS: ALB/GLOB RATIO 1.1 (1.1-1.8); ALBUMIN 3.7 g/dL (3.0-4.8)
[2018-02-08 11:14] LABS: TROPONIN I 0.03 ng/mL
--- NOTE | 2018-02-08 12:14 | CT ---
Date of service: 02/08/2018 PROCEDURE: CT HEAD WITHOUT CONTRAST. HISTORY: alted mental status COMPARISON: Noncontrast head CT performed 01/30/18 TECHNIQUE: Axial computed tomography images were obtained through the head/brain without intravenous contrast. Radiation dose: Total exam DLP = 952.94 mGy-cm. This CT exam was performed using one or more of the following dose reduction techniques: Automated exposure control, adjustment of the mA and/or kV according to patient size, and/or use of iterative reconstruction technique. FINDINGS: HEMORRHAGE: No intracranial hemorrhage. BRAIN: Diffuse atrophy with prominence of the ventricles and sulci noted. No mass effect or edema. Intracranial atherosclerotic calcifications. Scattered periventricular and subcortical white matter hypodensities, which are nonspecific, but often seen with chronic microvascular ischemic disease. Small chronic appearing left basal ganglia lacunar infarcts. Please note that MRI with diffusion imaging is more sensitive in the detection of acute ischemic event. VENTRICLES: No hydrocephalus. CALVARIUM: Unremarkable. PARANASAL SINUSES: Partial opacification of the right maxillary sinus including hyperdense material. Mild mucosal thickening of the left maxillary sinus. MASTOID AIR CELLS: Unremarkable as visualized. No inflammatory changes. OTHER FINDINGS: None. IMPRESSION: Generalized atrophy. Moderate nonspecific white matter changes. Small chronic appearing left basal ganglia lacunar infarcts. Partial opacification of the right maxillary sinus with increased attenuation of some contents which may indicate proteinaceous material or fungal colonization.
--- NOTE | 2018-02-08 14:39 | CARD ---
APPROVED REPORT Date of service: 02/08/2018 EKG Measurement Heart [id number] <Conclusion> Electronic ventricular pacemaker
[2018-02-08] MEDS: Omega-3-Acid Ethyl Esters 1 GM Cap PO SCH (20:54)
[2018-02-08] MEDS: Insulin Detemir 100 units/ml Vial (Levemir) SC SCH (22:31)
[2018-02-08] MEDS: Insulin Lispro (humaLOG) MEDIUM Coverage SC SCH (22:32)
[2018-02-08] MEDS ORDERED: Pneumococcal 23-Valent Vaccine IM ONE (22:56)
[2018-02-08] MEDS ORDERED: Influenza Vaccine 60 mcg/0.5 mL SYR (4YR UP) IM ONE (22:56)
[2018-02-08 23:01] LABS: TROPONIN I 0.03 ng/mL
[2018-02-08 23:07] LABS: FREE T4 1.18 ng/dL (0.78-2.19); T4 7.2 ug/dL (5.5-11.0)
--- NOTE | 2018-02-09 09:22 | PN ---
DATE: 02/09/2018 SUBJECTIVE: The patient is currently seen lying comfortable in bed on telemetry. He appears to be back to baseline. He had an uneventful dialysis yesterday with removal of no fluid. The patient was to have gone to [facility] for subacute rehab post his discharge mid last week but the patient went home instead and was brought back because of an altered mental status, low blood pressure. MEDICATIONS: Medication list reviewed. Patient is on Aricept, aspirin, Colace, Coreg, Cozaar, Flomax, sliding scale insulin, long-acting insulin, Lidoderm, Lipitor, Lovaza, Namenda, Neurontin, Norvasc, PhosLo and Protonix. OBJECTIVE: INTAKE AND OUTPUT: Intake is 240, output is 0 and no ultrafiltration with yesterday's dialysis. VITAL SIGNS: Blood pressure presently is ranging from 93-112 systolic, diastolics ranging from 54-62. Pulse of 65, temperature is 98.3. Respiratory rate is 20. Pulse ox 93%. HEENT: Exam shows him to be normocephalic, atraumatic. Conjunctivae are pink. Sclerae are nonicteric. NECK: Supple. No neck vein distention. CHEST: Clear to auscultation and percussion with no rales, rhonchi or wheezing. CARDIOVASCULAR: Shows a regular rate and rhythm without audible murmurs, rubs or gallops. ABDOMEN: Mildly obese. No distention. Bowel sounds normal. No rebound, guarding or masses. EXTREMITIES: She has a dressing over his left foot. He is status post amputation of his left fifth toe for dry gangrene. Positive left upper extremity AV fistula, positive thrill, positive bruit. NEUROLOGIC: Shows him to be alert, oriented and apparently back to baseline. LABORATORY DATA AND IMAGING: Head CT scan done on admission shows chronic left basal ganglia infarcts with cerebral atrophy. No acute findings. Labs: CBC, white blood cell count 10.1, hemoglobin 11.1, platelet count is 221,000, this is predialysis yesterday. Chemistries from yesterday showed a BUN of 61, creatinine of 8.4, again predialysis. Electrolytes were acceptable. Glucose 154. Calcium 9, phosphorus 4.8. Ammonia level was less than 9. Liver enzymes are normal. Troponins were negative. Albumin is 3.7. Thyroid function tests are normal. B12 level was pending. Toxicology screen for alcohol was negative. Microbiology, no cultures available for comment. ASSESSMENT: 1. Status post altered mental status and hypotension. This apparently has resolved. The patient's blood pressure does remain in the low normal range. The patient does have a past history of hypertension. The patient's blood pressure medications to be used with parameters only. 2. History of end-stage renal disease. The patient will continue Sunday, Sunday, Sunday dialysis while on the hospital. 3. History of peripheral vascular disease with dry gangrene of the toes of the left foot status post amputation of the left fifth toe. This appears to be stable. 4. Insulin-dependent diabetes mellitus. The patient's glucose control is acceptable and continue sliding scale insulin and long-acting insulin. 5. History of anemia secondary to chronic kidney disease. Hemoglobin is stable at 11.1. Aranesp per protocol with dialysis. 6. History of secondary hyperparathyroidism. Phosphorus level was mildly elevated at 4.8. The patient will continue binder therapy, he remains on PhosLo. 7. History of dementia. The patient will continue Aricept and Namenda. PLAN: 1. Continue Sunday, Sunday and Sunday dialysis. Next dialysis is scheduled for 02/11. 2. Continue to monitor the patient on telemetry in light of his hypotension and altered mental status. This situation is improving. 3. Adjust blood pressure medications to avoid hypotension. 4. Continue renal diet and binder therapy. 5. Continue wound care for his recent toe amputation. Dustin Thomas MD
--- NOTE | 2018-02-09 09:23 | HP ---
DATE OF EXAM: 02/08/2018 HISTORY OF PRESENT ILLNESS: The patient is an 78-year-old male who was brought to the [facility] Emergency Room by the [facility]. According to the patient's , the patient was found to be very weak, confused, disoriented with increasing altered mental status and upper extremity tremors, which the patient is started having yesterday according to the ER physician evaluation. The patient was brought to the Emergency Room. The patient was not acting himself and had upper extremity tremors. The patient was found to be confused. Appetite was found to be within normal limit according to the and the family. The patient was seen and examined in stretcher #8 in the Emergency Room. The patient at present is awake, alert, oriented x2 to person, place. Disoriented to year, date, month. CODE STATUS: Full code. LIVING WILL ADVANCE DIRECTIVE: None. ALLERGIES: NONE. HEIGHT: 5 feet 7 inches. WEIGHT: 210. BODY MASS INDEX: 33. HOME MEDICATIONS: Hydralazine 100 mg twice a day, Aricept 10 mg at bedtime, aspirin 325 daily, Cardura 2 mg twice a day, Colace 100 mg three times a day, Coreg 25 mg twice a day, Cozaar 100 mg daily, Flomax 0.4 mg daily, Lidoderm 5% patch to the affected area, Lipitor 40 mg at bedtime, Lovaza 1 g twice a day, Namenda 5 mg twice a day, Neurontin 100 mg at bedtime, Norvasc 10 mg daily, PhosLo 667 mg three times a day, Protonix 40 mg daily, and Toujeo insulin 10 units at bedtime. SOCIAL HISTORY: Positive for former smoking. Denies alcohol or drug abuse. FAMILY HISTORY: Positive for diabetes and hypertension. OCCUPATIONAL HISTORY: Disabled. PAST MEDICAL AND SURGICAL HISTORY: 1. History of pneumonia. 2. History of hypoxic respiratory failure. 3, History of hypertension. 4. History of dementia. 5. History of delirium. 6. History of constipation. 7. History of prostatic hypertrophy. 8. History of hyperlipidemia. 9. Hypertriglyceridemia. 10. History of diabetic neuropathy. 11. History of insulin-requiring diabetes mellitus. 12. History of osteomyelitis. 13. History of peripheral vascular disease of the lower extremity. 14. History of severe deconditioning. 15. History of gait dysfunction. 16. History of left upper extremity AV fistula. 17. History of end-stage renal disease, hemodialysis dependent via the left upper extremity AV fistula. 18. History of permanent pacemaker implant. 19. History of sinus arrest. 20. History of renal failure. 21. History of cataract surgery. 22. History of lumbar disk disease. 23. History of left fifth toe amputation. 24. History of cerebral infarct. 25. History of transient ischemic infarct. 26. Significant for discharge from [facility] couple of days ago. 27. Significant for history of systemic inflammatory response syndrome. 28. History of left fifth toe Enterobacter cloacae and methicillin-sensitive Staphylococcus aureus diabetic foot ulceration and osteomyelitis. 29. History of intermittent transfusion requiring anemia. 30. History encephalopathy. 31. History of cortical and cerebral atrophy with periventricular small-vessel ischemic disease of the brain. 32. History of chronic ethmoid maxillary sinusitis. 33. History of emphysema, atelectasis, and consolidation. 34. History of status post angioplasty, atherectomy of the left peroneal artery, left tibial artery angioplasty. 35. History of severe left pedal occlusive disease. 36. History of secondary hyperparathyroidism. 37. History of hypotension. 38. History of hypoxemia. 39. History of congestive heart failure. 40. History of sick sinus syndrome. 41. History of left hand finger amputation. 42. History of sepsis secondary to pneumonia. 43. History of pulmonary hypertension with left ventricular hypertrophy. 44. History of moderate mitral annular calcification. 45. History of moderate pulmonary hypertension with right ventricular systolic pressure of 53 mmHg. 46. History of oropharyngeal candidiasis. 47. History of macroglossia. 48. History of hypovitaminosis D. 49. History of BiPAP requiring respiratory failure. 50. History of obesity. 51. History of hyperprolactinemia. 52. 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 53. History of episodic agitation. 54. History of diabetic foot ulceration of the left foot. 55. History of poor compliance in the past. 56. History of snoring and possible sleep apnea. 57. History of asymptomatic bradycardia. 58. History of increased anion gap metabolic acidosis. 59. History of tonsil epiglottitis, history of tonsillar hypertrophy. 60. History of osteopenia. 61. History of extensive centrilobular pulmonary emphysema the pulmonary apices. 62. History of COPD exacerbation. 63. History of dextroscoliosis. 64. 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 65. History of bilateral tibial occlusive disease. 66. History of bilateral superficial femoral artery occlusive disease. 67. History of proximal right internal carotid artery 69% stenosis and 40% stenosis of the left carotid system. 68. History of angioplasty of the lower extremity. 69. History of Mobitz type 1 AV block. 70. History of incomplete right bundle-branch block. 71. History of healthcare-associated pneumonia. PHYSICAL EXAMINATION: GENERAL: At present, the patient is seen in stretcher #8. The patient is awake, alert, responsive. The patient's at bedside. The patient is oriented x2. VITAL SIGNS: T-max 98-98.3. Telemetry shows paced rhythm, heart rate in 60s and 80s. The patient's blood pressure initially was 88/43, 97/45, 116/46, 96/48; respiration 18-20; O2 sat is 93%-94%. HEAD: Normocephalic, atraumatic. EENT: Shows pinkish conjunctivae. Anicteric sclerae. No oropharyngeal lesion. No neck rigidity. CHEST: Kyphosis. Positive upper chest pacemaker. Positive rhonchi upper lung [place], anteriorly and posteriorly. CARDIOVASCULAR: S1, S2, regular rhythm. Positive systolic murmur, right second intercostal space, left second intercostal space. ABDOMEN: Soft. No palpable hepatosplenomegaly noted. Abdomen is distended, protuberant. GENITALIA: Male. EXTREMITY: Shows positive left upper extremity AV fistula, positive thrill. Lower extremity shows positive dressing of the left foot and toes. VASCULAR: Decreased palpable pulses. MUSCULOSKELETAL: Shows a body mass index of 33. NEUROLOGIC: The patient is alert, awake, oriented x2. Disoriented to year, date, month. DIAGNOSTIC DATA: CBC: Hemoglobin and hematocrit 11.1 and 35.5, platelet 221, granulocytes 69. PT/PTT is 12.8, 38. CMP: LFT shows a BUN of 61, creatinine 8.4, glucose 154, calcium 9, phosphorus 4.8, ammonia level is less than 9. Troponin is negative. Alcohol level is less than 10. The patient seen and evaluated in the Emergency Room by the ER physician. CT head was done. EKG was done. EKG shows paced rhythm. CAT scan shows diffuse cerebral cortical atrophy with chronic left basal ganglia lacunar infarct and ventriculomegaly and microvascular ischemic disease of the brain and chronic microvascular ischemic disease of the left basal ganglia. The patient was treated and stabilized in the Emergency Room. The patient was given IV fluid 500 mL by the ER physician. The patient's blood pressure was stabilized and the patient was admitted to observation telemetry. IMPRESSION: 1. Altered mental status versus acute exacerbation of toxic metabolic encephalopathy versus acute exacerbation of dementia and delirium. 2. Hypotension. 3. Hypoxemia. 4. Severe gait dysfunction and deconditioning. 5. Questionable upper extremity tremors, etiology undetermined. 6. Normocytic anemia. 7. Anemia of chronic disease. 8. Granulocytosis. 9. End-stage renal disease, hemodialysis dependent. 10. Insulin-requiring diabetes mellitus with hyperglycemia. 11. Permanent pacemaker implant. 12. Vasculopathy of the lower extremity. 13. Diffuse cerebral cortical atrophy of the brain with ventriculomegaly. 14. Chronic microvascular ischemic disease of the brain with subcortical white matter hypodensities and chronic left basal ganglia lacunar infarct. 15. Chronic right maxillary sinusitis with partial opacification and left maxillary sinus mucosal thickening. 16. Possible proteinaceous versus fungal colonization of the right and left maxillary sinus with partial opacification. 17. History of hypertension but hypotension at present. 18. Prostatic hypertrophy. 19. Hypertriglyceridemia, hyperlipidemia. 20. Severe peripheral vascular disease. 21. Diabetic neuropathy. 22. Constipation. 23. Secondary hyperparathyroidism. PLAN: At this time, the patient has been placed on telemetry observation by the ER physician. The patient's current consultation, Neurology and Nephrology. Current medications: Aricept 10 mg at bedtime, aspirin 325 daily, Colace 100 mg three times a day, Coreg 25 twice a day, Cozaar 100 mg daily, Flomax 0.4 mg daily, Humalog medium-dose sliding scale coverage before meals and at nighttime, Levemir is ordered 5 units twice a day, Lidoderm 5% patch daily, Lipitor 40 mg daily, Lovaza 1 g twice a day, Namenda 5 mg twice a day, Neurontin 100 mg at bedtime, Norvasc 10 mg daily, PhosLo 667 mg three times a day, Protonix 40 mg daily for GI prophylaxis. The patient has been ordered incentive spirometer, oxygen 2 liters continuous, renal diet, SCDs, RAIZA stockings, neuro checks, seizure precaution. Fingerstick blood sugar before meals and at bedtime. Physical therapy, occupational therapy ordered. The patient has been ordered lipid panel, thyroid profile, RPR, Lyme titers. The patient has been ordered above diagnostic intervention. The patient's further management will be dependent upon the patient's clinical condition, hemodynamic status, as the patient's response to therapeutic intervention, as per the patient's diagnostic test results, and as per recommendation by Neurology and Cardiology. At present, the patient will be continued on the above therapeutic intervention as ordered.. The patient is also in addition has been ordered out of bed, physical therapy, occupational therapy. I have discussed the patient's condition, need for hospitalization, need for further diagnostic therapeutic intervention as requested by the ER physician that the patient needs to be placed on observation. The patient's was also explained about the patient's need for hospitalization as per the ER recommendation. The patient will be undergoing further diagnostic therapeutic intervention. Dictated and electronically signed, not read. Oleg Whitman MD
[2018-02-09] MEDS: Insulin Lispro (humaLOG) MEDIUM Coverage SC SCH ×5 (10:21→23:03)
[2018-02-09] MEDS: Insulin Detemir 100 units/ml Vial (Levemir) SC SCH ×2 (10:21→22:42)
[2018-02-09] MEDS: Lidocaine 5% Patch TD SCH (10:22)
[2018-02-09] MEDS: Pantoprazole 40 mg EC Tab PO SCH (10:23)
[2018-02-09] MEDS: Omega-3-Acid Ethyl Esters 1 GM Cap PO SCH ×2 (10:23→18:04)
--- NOTE | 2018-02-09 12:46 | CON ---
DATE: 02/08/2018 REASON FOR CONSULTATION: Hypotension, altered mental status. HISTORY OF PRESENTING ILLNESS: An 78-year-old male known to me from outpatient hemodialysis and recent evaluation. The patient went home on Sunday. The patient was admitted to the hospital with hypotension, altered mental status, found to have sepsis, wound infection. The patient underwent left fifth toe amputation. The patient was treated with antibiotics. He was advised to go to subacute rehab. The patient insisted on going home. As per the , the patient took all his medications yesterday. He is on 5 antihypertensives. This morning, he was supposed to go for dialysis, but then she thought he was altered, less responsive, hence, he was brought to the Emergency Room. Currently in the Emergency Room his blood pressure is 88/43. He is awake. He is somewhat altered, but responsive. He received 500 mL of IV fluids in the Emergency Room. His hemoglobin is 11. His potassium is 4.2, BUN 61, creatinine 8.4. Consultation is requested for low blood pressure, need for dialysis. PAST MEDICAL HISTORY: NIDDM, hypertension, peripheral vascular disease, recent fifth left toe amputation, ESRD, anemia of chronic kidney disease, secondary hyperparathyroidism, history of osteomyelitis, dementia. FAMILY HISTORY: Noncontributory. SOCIAL HISTORY: Ex-smoker, no alcohol use, no IV drug abuse. ALLERGIES: NO KNOWN DRUG ALLERGIES. MEDICATIONS AT HOME: Flomax, Protonix, Namenda, losartan 100, gabapentin, carvedilol 25 b.i.d., PhosLo, Lipitor, aspirin, amlodipine 10 mg. REVIEW OF SYSTEMS: All systems are reviewed, pertinent positives as mentioned in history of presenting illness, rest unremarkable. PHYSICAL EXAMINATION: GENERAL: Obese elderly male lying in bed in the Emergency Room in no acute distress. VITAL SIGNS: Blood pressure 97/45, heart rate 65, respiratory rate 18, temperature 98.2. HEENT: Normocephalic, atraumatic, positive pallor. NECK: Supple, no JVD. LUNGS: Bilateral equal air entry, bilateral equal expansion, no rales. CARDIAC: S1 and S2, regular rate and rhythm, no murmur, no rub. ABDOMEN: Obese, distended, soft, nontender. Bowel sounds present. EXTREMITIES: Dressing of the left foot. LABORATORY DATA: Hemoglobin 11, potassium 4.2, creatinine 8.4. ASSESSMENT: 1. Hypotension (?) related to medications. 2. Noninsulin-dependent diabetes mellitus. 3. End-stage renal disease. 4. Anemia of chronic disease. 5. Peripheral vascular disease. 6. Recent left fifth toe amputation for gangrene. PLAN: 1. Monitor blood pressure, discontinue amlodipine. 2. Change Coreg to lower dose. 3. Dialysis today without ultrafiltration. 4. Podiatry evaluation. 5. IDD evaluation. Yadira Fox MD
[2018-02-09 13:53] LABS: FOLATE 5.2 ng/mL
[2018-02-09] MEDS ORDERED: Sodium Chloride 0.9% 250 ML IV STA (21:32)
--- NOTE | 2018-02-10 01:02 | DS ---
FINAL PROGRESS NOTE AND DISCHARGE SUMMARY HISTORY OF PRESENT ILLNESS: The patient is seen lying in the bed in room 263, bed 1. The patient is alert, awake, responsive. Oriented to person and place. Disoriented to year, date, month. According to the nurses' notes, the patient was found to be calm. The patient was found to be compliant with medication. PHYSICAL EXAMINATION: VITAL SIGNS: T-max 98.3. Telemetry shows paced rhythm, heart rate 60, 95, 65; blood pressure is 100/65, initially in the morning it was 169/71, 93/54, 100/65; respiration is 18-20. O2 sat is 93-95%. HEENT: Head examination normocephalic, atraumatic. HEENT examination shows pinkish pale conjunctivae. Anicteric sclerae. No oropharyngeal lesion. No neck rigidity. CHEST: Kyphosis. Positive upper chest pacemaker. LUNGS: Shows occasional rhonchi, upper lung field. CARDIOVASCULAR: S1, S2. Regular rhythm. Positive systolic murmur, left sternal border, right second intercostal space, left second intercostal space. ABDOMEN: Soft, slightly protuberant. GENITALIA: Male. RECTAL: Deferred. EXTREMITY: Shows positive left foot dressing. MUSCULOSKELETAL: Shows a body mass index of 33. Cranial nerves II through XII limited. Gait examination is not tested. DIAGNOSTICS: Fingerstick blood sugar 125, 142, 159. Vitamin D 25-hydroxy 27. Thyroid profile is within normal limit. Cholesterol is 147, LDL 57, HDL 23. is 450. Ammonia level is negative. Cardiac enzymes are negative. Blood cultures, no growth. IMPRESSION AND PLAN: 1. Altered mental status with encephalopathy (resolved). 2. Hypotension. 3. Type 1 insulin-requiring diabetes mellitus. 4. End-stage renal disease, hemodialysis dependent. 5. History of advanced dementia and delirium. 6. Peripheral vascular disease. 7. Secondary hyperparathyroidism. 8. Anemia. 9. Granulocytosis. 10. End-stage renal disease, hemodialysis dependent. 11. Hypovitaminosis D. 12. Hypertriglyceridemia. 13. Deconditioning. 14. Peripheral vascular disease. 15. Status post left fifth toe amputation. 16. Hypotension, probably drug-induced. 17. Prostatic hypertrophy. 18. Hyperlipidemia, hypertriglyceridemia. 19. Advanced dementia. 20. Diabetic neuropathy. Plan at this time, the patient is awaiting Neurology evaluation. The patient's clinical and mental status have improved since yesterday. The patient appears to be at his baseline. The patient's Lyme titers are pending. The patient's hydralazine and Cardura have been stopped. The patient current medications are Aricept 10 mg at bedtime, Ecotrin 325 mg daily, Colace 100 mg three times a day, Coreg decreased to 12.5 mg b.i.d. as per Nephrology recommendation, Cozaar is decreased to 50 mg daily, Flomax 0.4 mg daily, Humalog medium-dose sliding scale coverage before meals and at bedtime, Levemir 5 units twice a day, Lidoderm patch 5% to the affected area, Lipitor 40 mg daily, Lovaza 1 g twice a day, Namenda 5 mg twice a day, Neurontin 100 mg at bedtime, PhosLo 667 mg three times a day, Protonix 40 mg daily. In addition, the patient's hydralazine, Cardura and Norvasc and amlodipine have been stopped. The patient's Coreg has been titrated down as per the recommendations of Nephrology. The patient has been ordered incentive spirometry, renal diet, neuro checks, seizure precaution, out of bed, physical therapy, occupational therapy all ordered. At this time, the patient has been ordered to be ordered to have Neurology clearance for discharge. If the patient is cleared by Neurology, the patient will be considered for discharge home after cleared by Neurology with referral to [facility], Home health aide, home PT with discharge followup with Dr. Whitman within 1 week and resume home medications as per the revised and updated ambulatory orders with stopping hydralazine, Cardura and Norvasc. In addition, the patient's case was referred a few days ago for subacute rehab placement, but the patient's family declined rehab placement at [facility], which is the only facility which can accommodate patient with dialysis, which the patient and the family declined and refused to go to [facility]. The patient and the family was advised that [facility] is the only subacute rehab, which takes patients with dialysis. But the patient and the patient's family declined subacute rehab and the patient was discharged home a few days ago. The patient's discharge medications have been modified and revised. DISCHARGE MEDICATIONS: Aspirin 325 mg daily, Lipitor 40 mg daily, PhosLo 667 mg three times a day, Colace 100 mg three times a day, Aricept 10 mg at bedtime, Neurontin 100 mg at bedtime. The patient is to resume Toujeo 10 units at bedtime, Lidoderm 5% patch to the affected area, Namenda 5 mg twice a day, Lovaza 1 g twice a day, Protonix 40 mg daily, Flomax 0.4 mg daily. In addition, the patient is on Aricept 10 mg at bedtime, Coreg decreased to 12.5 mg twice a day, Cozaar decreased to 50 mg daily. The patient is to be discharged after cleared by Neurology with above discharge instructions. Time spent is 45 minutes. Dictated and electronically signed, not read. Oleg Whitman MD
[2018-02-10] MEDS: Insulin Lispro (humaLOG) MEDIUM Coverage SC SCH ×4 (08:00→22:26)
--- NOTE | 2018-02-10 08:08 | CP.PCM.PN ---
Subjective - Date & Time of Evaluation Date of Evaluation: 02/10/18 Time of Evaluation: 07:30 - Subjective Subjective: (covering for Dr. Whitman) Patient is seen this mroning in room 572 bed 1. He is lying in bed confused. Objective - Vital Signs/Intake and Output Vital Signs (last 24 hours): Temp Pulse Resp BP Pulse Ox 97.7 F 60 18 85/42 L 95 02/09/18 22:00 02/09/18 22:00 02/09/18 22:00 02/09/18 22:00 02/09/18 22:00 - Medications Medications: Current Medications Aspirin (Aspirin) 325 mg PO DAILY [facility] Last Admin: 02/09/18 10:20 Dose: 325 mg Atorvastatin Calcium (Lipitor) 40 mg PO HS [facility] Last Admin: 02/09/18 22:44 Dose: 40 mg Calcium Acetate (Phoslo) 667 mg PO TID [facility] Last Admin: 02/09/18 18:04 Dose: 667 mg Carvedilol (Coreg) 12.5 mg PO BID [facility] Docusate Sodium (Colace) 100 mg PO TID [facility] Last Admin: 02/09/18 18:04 Dose: 100 mg Donepezil HCl (Aricept) 10 mg PO HS [facility] Last Admin: 02/09/18 22:44 Dose: 10 mg Gabapentin (Neurontin) 100 mg PO HS [facility]; Protocol Last Admin: 02/09/18 22:43 Dose: 100 mg Insulin Detemir (Levemir) 5 unit SC Q12 [facility] Last Admin: 02/09/18 22:42 Dose: 5 units Insulin Human Lispro (Humalog Med) 0 units SC ACHS [facility]; Protocol Last Admin: 02/09/18 23:03 Dose: Not Given Lidocaine (Lidoderm) 1 ea TD DAILY [facility] Last Admin: 02/09/18 10:22 Dose: 1 ea Losartan Potassium (Cozaar) 50 mg PO DAILY [facility] Memantine (Namenda) 5 mg PO BID [facility] Last Admin: 02/09/18 18:04 Dose: 5 mg [id number] Ethyl Esters (Lovaza) 1 gm PO BID [facility] Last Admin: 02/09/18 18:04 Dose: 1 gm Pantoprazole Sodium (Protonix Ec Tab) 40 mg PO DAILY [facility] Last Admin: 02/09/18 10:23 Dose: 40 mg Tamsulosin HCl (Flomax) 0.4 mg PO DAILY [facility] Last Admin: 02/09/18 10:20 Dose: 0.4 mg - Labs Labs: 02/08/18 10:30 02/08/18 10:30 PT 12.8 SECONDS (9.4-12.5) H 02/08/18 10:30 INR 1.11 02/08/18 10:30 APTT 38.0 Seconds (25.1-36.5) H 02/08/18 10:30 - Constitutional Appears: No Acute Distress - Respiratory Exam Respiratory Exam: Decreased Breath Sounds, NORMAL BREATHING PATTERN - Cardiovascular Exam Cardiovascular Exam: +S1, +S2 - GI/Abdominal Exam GI & Abdominal Exam: Soft, Normal Bowel Sounds. absent: Tenderness - Extremities Exam Additional comments: Left foot wrapped with gauze Assessment and Plan - Assessment and Plan (Free Text) Assessment: AMS with encephalopathy Hypotension Diabetes mellitus ESRD on HD History of dementia Left 5th toe amputation Plan: Patient is to continue his current medications. He is awaiting neurological evaluation. If patient is cleared by neurology, he may be discharged. Patient's medications for blood pressure have been adjusted. continue to monitor blood pressure.
[2018-02-10] MEDS: Omega-3-Acid Ethyl Esters 1 GM Cap PO SCH ×2 (10:00→17:07)
[2018-02-10] MEDS: Insulin Detemir 100 units/ml Vial (Levemir) SC SCH ×2 (11:12→21:24)
--- NOTE | 2018-02-10 12:26 | PN ---
DATE: 02/10/2018 SUBJECTIVE: The patient is currently seen on 5R. He appears sleepy this morning. His vital signs have been stable. He is awaiting a neuro evaluation prior to possible discharge home later today. His mental status appears to have improved and his blood pressures have stabilized. He continues to remain borderline hypotensive, but that is his baseline. MEDICATIONS: Medication list reviewed. The patient is currently on Aricept, aspirin, Colace, Coreg, losartan, Flomax, Humalog, Levemir, Lidoderm, Lipitor, Lovaza, Namenda, Neurontin, PhosLo, and Protonix. He is currently off Norvasc. PHYSICAL EXAMINATION: INTAKE AND OUTPUT: Intake 1060, output zero. VITAL SIGNS: Last blood pressure was 101/61, temperature 97.4, respiratory rate 16 with a pulse of 62. HEENT: Shows him to be normocephalic, atraumatic. Conjunctivae are pink. Sclerae nonicteric. NECK: Supple. No neck vein distention. CHEST: Clear to auscultation and percussion. No rales, rhonchi, or wheezing. CARDIOVASCULAR: Shows a regular rate and rhythm without audible murmurs, rubs, or gallops. ABDOMEN: Soft. Mild obesity. No distention. Bowel sounds are normal. No rebound, guarding, or masses. EXTREMITIES: Show dressing over his left foot. He is status post amputation of his left fifth toe. Positive left upper extremity AV fistula. Positive thrill. Positive bruit. NEUROLOGIC: Shows him to be alert, sleeping in bed. No acute deficits noted. LABORATORY DATA AND IMAGING: No repeat labs were done over the last 24 hours. Last white blood cell count 10.1, hemoglobin 11.1, platelet count of 221,000. Chemistries, morning glucose was 99. Last full set of chemistries were done on 02/08/2018, showing a BUN of 61 and creatinine of 8.4. Microbiology: All cultures are negative at 24 hours. The patient's B12 level was normal at 450. Vitamin D level was borderline low at 27.3. Thyroid function tests were normal. ASSESSMENT: 1. Status post altered mental status and hypotension. For the most part, this has resolved. Blood pressure medications have been adjusted by Dr. Whitman. He is currently off calcium-channel june therapy. Losartan should be given with parameters. The patient may remain on a beta-june therapy with parameters. 2. History of end-stage renal disease. The patient's next dialysis is scheduled for tomorrow. If the patient is discharged home, this will take place in the outpatient unit. 3. History of peripheral vascular disease with dry gangrene of the toes of the left foot, amputation of his left fifth toe. This appears to be stable. 4. History of insulin-dependent diabetes mellitus. The patient's glucose control is acceptable. He remains on both long-acting and sliding scale insulin. 5. History of anemia secondary to chronic kidney disease. Last hemoglobin was acceptable at 11.1 pre-dialysis on 02/08/2018. 6. History of secondary hyperparathyroidism. Calcium, phosphorus levels remain acceptable. Phosphorus is 4.8 with a calcium of 9. Vitamin D level was borderline low. The patient will receive vitamin D with dialysis. 7. History of dementia. The patient will continue Aricept, Namenda. PLAN: 1. Next dialysis tomorrow, 02/11/2018. If the patient is discharged home, dialysis will take place in the outpatient unit. 2. Continue wound care, status post amputation of his toe. 3. Continue all dietary restrictions and binder therapy. The patient will receive vitamin D on dialysis. 4. Continue to adjust blood pressure medications in order to prevent the patient from further episodes of hypotension. Dustin Thomas MD
[2018-02-10] MEDS: Lidocaine 5% Patch TD SCH (13:42)
[2018-02-10] MEDS: Pantoprazole 40 mg EC Tab PO SCH (13:43)
[2018-02-10] MEDS: Sodium Chloride 0.45% 1,000 ML IV SCH (17:08)
--- NOTE | 2018-02-11 00:25 | CON ---
DATE: 02/10/2018 HISTORY OF PRESENT ILLNESS: In short, the patient is an 78-year-old male with not known previous psychiatric history, multiple medical issues including hyperlipidemia, hypertension, hyperparathyroidism, diabetes. The patient was admitted on the medical site for altered mental status. Psych consult was called for the same reason. This health science writer attempted to talk to the patient, but the patient was medicated overnight time with Ativan. This health science writer was not able to wake the patient up. The patient presented to be lethargic. Opening his eyes, but closing them back again. As per reports from the nursing staff, the patient had episodes of confusion, agitation, restless behavior. This health science writer reviewed previous history. The patient has never been evaluated by psychiatrist in the past, never been admitted to the Psychiatric Inpatient Unit. Vital signs seems to be stable. Temperature 97.4, pulse is 80, blood pressure 130/80, respirations 16. Medications reviewed. The patient is on aspirin, Lipitor, PhosLo, Coreg, Colace, Aricept, Neurontin, Levemir, Humalog, Lidoderm. Cozaar, Namenda, Lovaza, Protonix, Flomax. This health science writer will add 25 mg of Seroquel as needed for agitation. Labs reviewed, most recent was from 02/08/2018. MENTAL STATUS EXAMINATION: Not physically possible because the patient is deeply sedated. IMPRESSION: Most likely, the patient is in delirium stage. Medical team needs to find the cause of that delirium. The patient has history of dementia. PLAN: Continue current management. Continue current medications. This health science writer implemented Seroquel at the nighttime as needed for agitation. Tomorrow, Dr. Shea is covering. He will follow up on this patient. Should you have any questions, give me a call back. Thank you very much for letting me participate in the care of your patient. Petrona Hameed MD
[2018-02-11] MEDS: Insulin Lispro (humaLOG) MEDIUM Coverage SC SCH ×4 (06:35→21:49)
--- NOTE | 2018-02-11 08:18 | CON ---
DATE: 02/08/2018 CHIEF COMPLAINT: Transient mental status change and jerking of the upper extremities. HISTORY OF PRESENT ILLNESS: This is an 78-year-old man with past medical history of hyperlipidemia, hyperparathyroidism, diabetes who came into the hospital for change in mental status. The patient was recently discharged from here and his notes that he was not acting himself. He has been having twitches of the bilateral arms and appeared confused. He is on hemodialysis for end-stage renal disease on Sunday, Sunday and Sunday. He came in and noticed to have low systolic and diastolic blood pressures from 97/45 to 98/55 and was given IV fluids. Currently, he is no longer having any jerking movements. He is due for his dialysis and currently he is undergoing dialysis. Ammonia level has been ordered. No focal weakness of the extremities. No pronator drift seen. CAT scan of the head shows no acute intracranial abnormalities, just some chronic ischemic changes. PAST MEDICAL HISTORY: As above. ALLERGIES: NO KNOWN DRUG ALLERGIES. SOCIAL HISTORY: No illicit drug use, smoking, or EtOH abuse. REVIEW OF SYSTEMS: A 14-point review of systems is negative except as per the HPI. LABORATORY DATA: Sodium is 139, potassium 4.2, chloride of 99, carbon dioxide of 27, BUN of 61, creatinine 8.4, random glucose of 154. PHYSICAL EXAMINATION VITAL SIGNS: Temperature of 98.3, pulse rate of 79, blood pressure 98/55, respiratory rate of 18, and oxygen saturation 98% by room air. GENERAL: The patient is mildly lethargic, but follows simple commands. HEENT: Atraumatic, normocephalic. PERRLA. Extraocular muscles intact. NECK: Supple. No JVD. No adenopathy noted. LUNGS: Clear to auscultation. No adventitious sounds. HEART: S1 and S2. Normal rate and rhythm. No murmur, rubs, or gallops. ABDOMEN: Soft, nontender, and nondistended. Bowel sounds are present. EXTREMITIES: No clubbing, no cyanosis. Peripheral pulses 2+ felt bilaterally. His left foot toe is amputated with sutures in place. NEUROLOGIC: The patient is alert and oriented to person, place, not much of month or year. Recall after 5 minutes is 0/3. Poor attention span and slow thought process. Mildly lethargic. Cranial nerves II through XII intact. Motor exam: Slight increased tone throughout. Moves all extremities equally. Sensory exam: Decreased light touch and pinprick up to the calves bilaterally, decreased vibration of the toes. DTRs are 2+ throughout, 1 at both knees and ankles. Coordination: [id number]-br-[id number] intact. No dysmetria noted. No asterixis noted on examination when hands are outstretched. Gait is deferred for now. IMPRESSION AND RECOMMENDATION: Altered mental status with intermittent jerking movements of the upper extremities secondary to transient cerebral hypoperfusion to the brain given that he has low systolic and diastolic blood pressures, this is not a seizure at all. His CAT scan of the head showed no acute intracranial abnormalities. At this time, we will recommend; 1. IV fluids. 2. Blood and urine cultures . 3. Monitor electrolytes and correct accordingly. 4. Could consider an MRI of the brain to see of any central pathology causing jerks movements. 5. Ammonia level. At this time, continue to monitor blood sugars between 140-180 and continue current present medical management. Thank you for this consultation. Oscar Aggarwal MD
[2018-02-11 09:18] LABS: BASO # 0.02 K/mm3 (0.0-2.0); BASO % 0.3 % (0.0-3.0); EOS # 0.2 (0.0-0.7); EOS % 3.2 % (1.5-5.0); GRAN # 4.04 (1.4-6.5); GRAN % 62.5 % (50.0-68.0); HEMOGLOBIN 10.3 g/dL (14.0-18.0); LYMPH # 1.8 (1.2-3.4); LYMPH % 27.8 % (22.0-35.0); MEAN CELL VOLUME 84.9 fl (80.0-105.0); MEAN CORPUSCULAR HEMOGLOBIN 26.4 pg (25.0-35.0); MEAN CORPUSCULAR HGB CONC 31.1 g/dl (31.0-37.0); MEAN PLATELET VOLUME 11.5 fl (7.0-11.0); MONO # 0.4 (0.1-0.6); MONO % 6.2 % (1.0-6.0); RBC 3.9 10^6/uL (3.5-6.1); RED CELL DISTRIBUTION WIDTH 18.2 % (11.5-14.5); WHITE BLOOD COUNT 6.5 10^3/ul (4.5-11.0)
[2018-02-11 09:26] LABS: CALCIUM 7.8 mg/dL (8.4-10.5)
[2018-02-11] MEDS: Pantoprazole 40 mg EC Tab PO SCH (12:48)
[2018-02-11] MEDS: Lidocaine 5% Patch TD SCH (12:48)
[2018-02-11] MEDS: Omega-3-Acid Ethyl Esters 1 GM Cap PO SCH ×2 (12:49→17:13)
[2018-02-11] MEDS: Insulin Detemir 100 units/ml Vial (Levemir) SC SCH ×2 (12:51→21:09)
[2018-02-11 13:09] LABS: 23 KD (IGG) BAND Nonreactive
--- NOTE | 2018-02-11 13:38 | CP.PCM.PN ---
Subjective - Date & Time of Evaluation Date of Evaluation: 02/11/18 Time of Evaluation: 11:40 - Subjective Subjective: Follow Up: DATE: 02/11/2018 CHIEF COMPLAINT: Transient mental status change and jerking of the upper extremities. Subjective: Intermitent delirium episodes. No further jerks of the extremities. ammonia level is normal. PAST MEDICAL HISTORY: As above. ALLERGIES: NO KNOWN DRUG ALLERGIES. SOCIAL HISTORY: No illicit drug use, smoking, or EtOH abuse. REVIEW OF SYSTEMS: A 14-point review of systems is negative except as per the HPI. LABORATORY DATA: Reviewed via chart. PHYSICAL EXAMINATION VITAL SIGNS: Reviewed via chart. GENERAL: The patient is mildly lethargic, but follows simple commands. HEENT: Atraumatic, normocephalic. PERRLA. Extraocular muscles intact. NECK: Supple. No JVD. No adenopathy noted. LUNGS: Clear to auscultation. No adventitious sounds. HEART: S1 and S2. Normal rate and rhythm. No murmur, rubs, or gallops. ABDOMEN: Soft, nontender, and nondistended. Bowel sounds are present. EXTREMITIES: No clubbing, no cyanosis. Peripheral pulses 2+ felt bilaterally. His left foot toe is amputated with sutures in place. NEUROLOGIC: The patient is alert and oriented to person, place, not much of month or year. Recall after 5 minutes is 0/3. Poor attention span and slow thought process. Mildly lethargic. Cranial nerves II through XII intact. Motor exam: Slight increased tone throughout. Moves all extremities equally. Sensory exam: Decreased light touch and pinprick up to the calves bilaterally, decreased vibration of the toes. DTRs are 2+ throughout, 1 at both knees and ankles. Coordination: [id number]-[id number] intact. No dysmetria noted. No asterixis noted on examination when hands are outstretched. Gait is deferred for now. IMPRESSION AND RECOMMENDATION: Altered mental status with intermittent jerking movements of the upper extremities secondary to transient cerebral hypoperfusion to the brain given that he has low systolic and diastolic blood pressures, this is not a seizure at all. His CAT scan of the head showed no acute intracranial abnormalities. At this time, we will recommend; 1. Monitor electrolytes and correct accordingly. 2. Delirium precautions. 3. Continue to monitor blood sugars between 140-180 and continue current present medical management. 4. Clinically stable. Thank you Oscar Aggarwal MD Objective - Vital Signs/Intake and Output Vital Signs (last 24 hours): Temp Pulse Resp BP Pulse Ox 97.3 F L 76 20 108/63 95 02/11/18 08:06 02/11/18 08:06 02/11/18 08:06 02/11/18 08:06 02/11/18 08:06 - Medications Medications: Current Medications Aspirin (Aspirin) 325 mg PO DAILY [facility] Last Admin: 02/11/18 12:53 Dose: 325 mg Atorvastatin Calcium (Lipitor) 40 mg PO [facility] Last Admin: 02/10/18 21:24 Dose: 40 mg Calcium Acetate (Phoslo) 667 mg PO TID [facility] Last Admin: 02/11/18 13:05 Dose: Not Given Carvedilol (Coreg) 12.5 mg PO BID [facility] Last Admin: 02/11/18 12:50 Dose: Not Given Docusate Sodium (Colace) 100 mg PO TID [facility] Last Admin: 02/11/18 13:05 Dose: Not Given Donepezil HCl (Aricept) 10 mg PO [facility] Last Admin: 02/10/18 21:24 Dose: 10 mg Gabapentin (Neurontin) 100 mg PO HS [facility]; Protocol Last Admin: 02/10/18 21:24 Dose: 100 mg Insulin Detemir (Levemir) 5 unit SC Q12 [facility] Last Admin: 02/11/18 12:51 Dose: Not Given Insulin Human Lispro (Humalog Med) 0 units SC ACHS [facility]; Protocol Last Admin: 02/11/18 12:49 Dose: Not Given Lidocaine (Lidoderm) 1 ea TD DAILY [facility] Last Admin: 02/11/18 12:48 Dose: 1 ea Memantine (Namenda) 5 mg PO BID [facility] Last Admin: 02/11/18 12:49 Dose: 5 mg Ygviu-1-Pmyf Ethyl Esters (Lovaza) 1 gm PO BID [facility] Last Admin: 02/11/18 12:49 Dose: 1 gm Pantoprazole Sodium (Protonix Ec Tab) 40 mg PO DAILY [facility] Last Admin: 02/11/18 12:48 Dose: 40 mg Quetiapine Fumarate (Seroquel) 25 mg PO HS [facility]; Protocol PRN Reason: agitation/aggression Tamsulosin HCl (Flomax) 0.4 mg PO DAILY [facility] Last Admin: 02/11/18 12:49 Dose: 0.4 mg - Labs Labs: 02/11/18 08:35 02/11/18 08:35 PT 12.8 SECONDS (9.4-12.5) H 02/08/18 10:30 INR 1.11 02/08/18 10:30 APTT 38.0 Seconds (25.1-36.5) H 02/08/18 10:30
--- NOTE | 2018-02-11 16:21 | PN ---
DATE: 02/11/2018 SUBJECTIVE: The patient is just returned from dialysis. 2000 mL were removed. Dialysis treatment was uneventful. The patient expects to be discharged home later today. His mental status has improved and his blood pressure has stabilized. The patient was evaluated by Neurology and by Psychiatry. MEDICATIONS: Medication list reviewed. The patient is currently on Aricept, aspirin, Colace, Coreg, Flomax, insulin, Lidoderm, Lipitor, Lovaza, Namenda, Neurontin, PhosLo, Protonix and Seroquel. OBJECTIVE: INTAKE/OUTPUT: Intake 520, output 50. VITAL SIGNS: Blood pressure is 108/63, temperature 97.3, respiratory rate is 20 with a pulse of 76. HEENT: Shows him to be normocephalic, atraumatic. Conjunctivae remain pink. Sclerae are nonicteric. NECK: Supple. No neck vein distention. CHEST: Clear to auscultation and percussion. No rales, rhonchi or wheezing. CARDIOVASCULAR: Shows a regular rate and rhythm without audible murmurs, rubs or gallops. ABDOMEN: Soft. Bowel sounds normal. No distention. No rebound, guarding or masses. EXTREMITIES: Show dressing over his left foot. He is status post amputation of his left fifth toe for dry gangrene. Positive left upper extremity AV fistula. Positive thrill. Positive bruit. NEURO: Shows him to be alert, oriented with no acute deficits noted. LABORATORY DATA AND IMAGING: CBC: White blood cell count today 6.5, hemoglobin is stable at 10.3, platelet count is 191,000. Chemistry showed potassium of 3.5 with normal electrolytes otherwise. BUN 46 with a creatinine of 6.9. Calcium level was 7.8. Phosphorus level was not done. Microbiology: All cultures are negative in 72 hours. ASSESSMENT: 1. Status post altered mental status and hypotension. This has resolved. The patient's blood pressure medication has been adjusted. He is currently off calcium-channel june therapy and remains on Coreg alone. Blood pressure control remains in the low range of normal. Losartan had been discontinued. 2. History of end-stage renal disease. The patient will continue Sunday, Sunday and Sunday dialysis. His next dialysis will be in the outpatient unit should the patient be discharged later today as planned. 3. History of peripheral vascular disease with dry gangrene of the toes of the left foot, status post amputation of his left fifth toe. This wound appears to be stable. 4. History of insulin-dependent diabetes mellitus. Glucose control is acceptable. He remains on both long-acting and short-acting insulin. 5. History of anemia secondary to chronic kidney disease. Hemoglobin level is acceptable at 10.3. The patient will receive Aranesp/Mircera per protocol. 6. History of secondary hyperparathyroidism. The patient will continue binder therapy. His last phosphorus level was 4.8. 7. History of dementia. The patient will continue Aricept and Namenda. PLAN: 1. Okay from renal standpoint for discharge home. 2. The patient to continue outpatient dialysis Sunday, Sunday and Sunday at [facility].. 3. Continue to hold blood pressure medications in light of his hypotension, but the patient may remain on Coreg. Dustin Thomas MD MTDD
[2018-02-11 16:59] LABS: LYME IGG NEGATIVE (NEGATIVE)
[2018-02-11 17:02] LABS: LYME IGM NEGATIVE (NEGATIVE)
[2018-02-11] MEDS: Sodium Chloride 0.45% 1,000 ML IV SCH (22:36)
--- NOTE | 2018-02-12 06:52 | DS ---
FINAL PROGRESS NOTE AND DISCHARGE SUMMARY HISTORY OF PRESENT ILLNESS: The patient is seen lying in the stretcher in the dialysis. The patient is seen in the stretcher getting dialysis. The patient is lying in the bed, alert, awake, responsive. The patient does not appear to be agitated or restless. Overnight nurse's notes were reviewed. The patient had no adverse events documented and the patient slept without any adverse events. PHYSICAL EXAMINATION: VITAL SIGNS: T-max 97.7; heart rate 62, 76; blood pressure in the last 24 hours have improved to 130/80, 127/67, 108/63; respiration 20; O2 sat 95% on room air. HEENT: Head: Normocephalic, atraumatic. HEENT examination shows pinkish pale conjunctivae. Anicteric sclerae. No oropharyngeal lesion. No neck rigidity. CHEST: Positive upper chest pacemaker. Positive kyphosis. LUNGS: Examination shows upper lung field anterior rhonchi. CARDIOVASCULAR: S1, S2, regular rhythm. Positive systolic murmur at right second intercostal space, left second intercostal space. ABDOMEN: Soft. Positive bowel sounds. GENITALIA: Male. RECTAL: Examination is deferred. EXTREMITIES: Upper extremity shows positive left upper extremity AV fistula, positive thrill. Lower extremity shows positive dressing of the left foot. MUSCULOSKELETAL: Examination shows a body mass index of 33. DIAGNOSTICS: 02/11, WBC 6.5, hemoglobin/hematocrit 10.3/33, platelets 191. Sodium 138, potassium 3.5, chloride 99, CO2 of 26, anion gap 16, BUN 46, creatinine 6.9, glucose 190, 183, 163, random glucose 91, calcium 7.8. Alcohol level negative. RPR negative. Blood cultures both sets negative. FINAL IMPRESSION AND PLAN: 1. Altered mental status versus acute exacerbation of toxic metabolic encephalopathy versus acute exacerbation of dementia and delirium. 2. End-stage renal disease, hemodialysis dependent. 3. Delirium. 4. Insulin-requiring diabetes mellitus. 5. Hypertension. 6. Hypotension with transient cerebral hypoperfusion. 7. Normocytic anemia of chronic disease. 8. Mild hypokalemia and end-stage renal disease dialysis patient. 9. Hypertriglyceridemia. 10. Hypovitaminosis D. 11. Permanent pacemaker implant. 12. Dementia. 13. Peripheral vascular disease. 14. Prostatic hypertrophy. 15. Hyperlipidemia, hypertriglyceridemia. 16. Advanced dementia. 17. Diabetic neuropathy. 18. Secondary hyperparathyroidism. 19. Gait dysfunction. 20. Deconditioning. PLAN: At this time, I have met with the patient in the dialysis unit. The patient at present is alert, awake, oriented x3 and I have asked the patient about discharge options and I have mentioned that the only place only subacute rehab, which has dialysis options and facilities is [facility] and upon hearing name of the [facility], the patient became very angry and started to verbalize curse words, but at that time I told the patient that he needs to discuss with the family about discharge options. The patient wants to go home instead of going to subacute rehab. At present, the patient will be considered for discharge with following discharge options if the patient and the family agrees and if the patient is cleared by Neurology and if the MRI of the brain is negative, the patient can be discharged to subacute rehab with the dialysis facility, otherwise the patient needs to be discharged home after cleared by Neurology. If the patient is discharged home then the patient will be referred to [facility] Home Health aide, home PT with followup with Dr. Whitman within 1 week. The patient's discharge medications will be as per the updated and revised ambulatory orders and new scripts . The patient's following medications has been stopped including hydralazine, Cardura, Norvasc and Cozaar. The patient's discharge medication will be aspirin 325 daily, Lipitor 40 mg daily, PhosLo 667 mg three times a day, Colace 100 mg three times a day, Aricept 10 mg at bedtime, Neurontin 100 mg at bedtime, Toujeo SoloStar 10 units at bedtime, Lidoderm 5% patch to the affected area, Namenda 5 mg twice a day, Lovaza 1 g twice a day, Protonix 40 mg daily, Flomax 0.4 mg daily. If the patient is discharged home, on the discharge instruction the patient has been advised to follow up with Dr. Whitman within 1 week. Dictated and electronically signed, not read. Oleg Whitman MD
[2018-02-12] MEDS: Insulin Lispro (humaLOG) MEDIUM Coverage SC SCH ×2 (06:58→15:32)
[2018-02-12 10:38] VITALS: O2SAT 95
[2018-02-12] MEDS: Pantoprazole 40 mg EC Tab PO SCH (11:17)
--- NOTE | 2018-02-12 14:13 | PN ---
DATE: 02/12/2018 SUBJECTIVE: The patient is currently seen lying comfortable in bed on 5R. He was scheduled for possible discharge home on 02/11/2018. However, it was decided that he would once again try going to [facility] where he could receive wound care and dialysis. The patient appears to be agreeable with this disposition choice. He had dialysis yesterday. He is scheduled for dialysis tomorrow on 02/13/2018. 2000 mL of fluid removed with dialysis yesterday. MEDICATIONS: Medication list reviewed. The patient is on Aricept, aspirin, Colace, Coreg, Flomax, insulin, Lidoderm, Lipitor, Lovaza, Namenda, Neurontin, PhosLo, ProAmatine, Protonix and Seroquel. OBJECTIVE: INTAKE/OUTPUT: Intake 120, output 2000 mL with dialysis. VITAL SIGNS: Blood pressure 114/53, pulse of 64, temperature 98, respiratory rate of 20. HEENT: Normocephalic, atraumatic. Conjunctivae are pink. Sclerae are nonicteric. NECK: Supple. No neck vein distention. CHEST: Clear to auscultation and percussion. No rales, rhonchi or wheezing. CARDIOVASCULAR: Shows a regular rate and rhythm without audible murmurs, rubs or gallops. ABDOMEN: Soft. Bowel sounds are normal. No distention. No rebound or guarding or masses. EXTREMITIES: Show dressing over his left foot. He is status post amputation of his left fifth toe for dry gangrene. Positive left upper extremity AV fistula. Positive thrill. Positive bruit. NEURO: Shows him to be alert, oriented with no acute deficits. LABORATORY DATA AND IMAGING: No labs done today. Yesterday's labs were predialysis, white blood cell count 6.5, hemoglobin 10.3. Chemistries were acceptable. Potassium was 3.5, BUN 46 with a creatinine of 6.9. Microbiology: All cultures are negative at 4 days. ASSESSMENT: 1. Status post altered mental status and hypotension. This has resolved. The patient is currently off all blood pressure medicine with the exception of Coreg. He does remain on ProAmatine for blood pressures support. 2. History of end-stage renal disease. The patient is on a Sunday, Sunday, Sunday dialysis schedule. The patient will likely receive his next dialysis tomorrow if he is not discharged and transferred to [facility]. 3. History of peripheral vascular disease with dry gangrene of the toes of the left foot, status post amputation of his left fifth toe. Wound appears to be stable. At [facility], the patient will receive wound care therapy. 4. History of insulin-dependent diabetes mellitus. Glucose control is acceptable. He remains on both long-acting and short-acting insulin. 5. History of anemia secondary to chronic kidney disease. Hemoglobin stable in the 10-11 range. The patient will continue receiving Aranesp/Mircera per protocol. 6. History of secondary hyperparathyroidism. Phosphorus levels have been acceptable in the 4.8 range. I will continue binder therapy, continue a renal diet. 7. History of dementia and perhaps mild psychosis. The patient will continue on Aricept, Namenda and Seroquel. PLAN: 1. We will discuss with the discharge plan with Poultry Pinner. From my standpoint, it is okay for the patient to be transferred to [facility]. We will continue to monitor the patient at [facility]. In [facility], the patient will likely be on a Sunday, , Sunday schedule, so we will attempt to coordinate this as he is on a Sunday, Sunday and Sunday schedule in the hospital. 2. Continue wound care. 3. Continue to monitor vital signs, blood pressure. Continue to hold blood pressure medications other than Coreg in light of his relative hypotension. Dustin Thomas MD
[2018-02-12 15:56] VITALS: PULSE 72; RESP 16; TEMP 97.9
[2018-02-12 15:59] VITALS: BP 102/58
--- NOTE | 2018-02-12 19:16 | PN ---
DATE: 02/12/2018 SUBJECTIVE: The patient was followed up today. The patient appears to be alert, oriented, pleasant, cooperative. There is no agitation or aggression noted by staff. The patient reported that he feels better. The patient knows that he is in [facility]. VITAL SIGNS: Reviewed. MEDICATIONS: Reviewed. LABORATORY DATA: Reviewed. Discussed with nursing staff, the patient is improving. The patient deemed to be ready for discharge to subacute rehab at [facility]. MENTAL STATUS EXAMINATION: The patient appears to be alert, oriented to place and self. Mood described as good. Affect was reactive. Mood congruent. Thought process was more coherent and goal directed. Thought content, the patient denied thoughts of harming himself or others. Denied intent or plan. Insight and judgment seems to be improving. Impulses are well controlled. IMPRESSION: Most likely, the patient was in delirium stage. He was improving. PLAN: The patient was ready for discharge to subacute rehab. No psychotropic medication will be given to him over. The patient did not even tried that medications. The patient needs to be followed up with outpatient psychiatrist at subacute rehab to make sure that the patient has stable improvement. Meanwhile, the patient presented to be not depressed, not agitated, not psychotic. This content writer will sign off. The patient pose no imminent danger to self or others. Should you have any questions give me a call back. Petrona Hameed MD
--- NOTE | 2018-02-13 06:29 | DS ---
PROGRESS NOTE AND DISCHARGE SUMMARY HISTORY OF PRESENT ILLNESS: The patient is seen in room 572, bed 1. The patient is out of bed to chair. Patient is finally agreed to go to subacute rehab at [facility]. As mentioned in my yesterday's note, the patient was very reluctant to go to [facility] for subacute rehab and started getting agitated and started cursing but today after the patient spoke to the family and everybody else, the patient is now agreeable to go to [facility] for subacute rehab and continuation of the dialysis. The patient is seen sitting up in the chair in room 572, bed 1. The patient is alert, awake, responsive. Overnight nurse's notes were reviewed. The patient slept well. No distress and no adverse events noted. PHYSICAL EXAMINATION: VITAL SIGNS: T-max 98-97.9; heart rate 64, 72; blood pressure 114/53, 114/53, 102/58; respiration 16-20; O2 sat 95%. HEENT: Head: Normocephalic, atraumatic. HEENT examination shows pinkish pale conjunctivae. Anicteric sclerae. No oropharyngeal lesion. No neck rigidity. CHEST: Kyphosis. Positive upper chest pacemaker noted. LUNGS: Examination shows occasional rhonchi upper lung field anteriorly. CARDIOVASCULAR: S1, S2, regular rhythm. Positive systolic murmur at left sternal border, right second intercostal space, left second intercostal space. ABDOMEN: Soft. Positive bowel sounds. No hepatosplenomegaly noted. GENITALIA: Male. RECTAL: Examination is deferred. EXTREMITIES: Shows no pitting edema, no calf tenderness, no Homans' sign. NEUROLOGICALLY: The patient is alert, awake, responsive. The patient's motor strength is 5/5. The patient is able to stand up from the sitting position with minimal assistance. Gait examination is not tested. MUSCULOSKELETAL: Examination shows a body mass index of 33. DIAGNOSTIC DATA: None. Fingerstick blood sugar 301, 116, 132, 150, 119. The patient seen by filling technician and psychiatrist, their recommendation was noted. The patient is seen by neurologist yesterday. The patient was seen by filling technician today. FINAL IMPRESSION, PLAN AND DISCHARGE DIAGNOSES: 1. Altered mental status with acute exacerbation of toxic metabolic encephalopathy with acute exacerbation of dementia and delirium. 2. Refractory hypotension. 3. Hypoxemia. 4. Advanced dementia. 5. Normocytic anemia. 6. End-stage renal disease, hemodialysis dependent. 7. Hypokalemia. 8. Insulin-requiring diabetes mellitus. 9. Hypertriglyceridemia. 10. Hypovitaminosis D. 11. Gait dysfunction. 12. Deconditioning. 13. Diffuse cerebral cortical atrophy of the brain with ventriculomegaly and intracranial atherosclerotic calcification. 14. 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 16. Partial opacification of the right maxillary sinus with hyperdense material and mucosal thickening of the left maxillary sinus. 17. Permanent pacemaker implant. 18. Delirium. 19. Acute exacerbation of delirium. 20. End-stage renal disease, hemodialysis dependent three times a week via the left upper extremity arteriovenous fistula. 21. Peripheral vascular disease with left fifth toe osteomyelitis and status post left fifth toe amputation. 22. Secondary hyperparathyroidism. 23. Hypotension. PLAN: At this time, according to the Media Coordinator, the patient has been accepted for [facility] at [facility]. The patient and the family is in agreement with the plan. The patient will continue with subacute rehab and dialysis at [facility]. DISCHARGE MEDICATIONS: Aricept 10 mg at bedtime, Ecotrin 325 mg daily, Colace 100 mg three times a day, Coreg 12.5 twice a day, Flomax 0.4 mg daily, Humalog before meals and at bedtime sliding scale, Levemir 5 units twice a day, Lidoderm 5% patch to the affected area, Lipitor 40 mg at bedtime, Hurt 3 (Lovaza) 1 g twice a day, Namenda 5 mg twice a day, Neurontin 100 mg at bedtime, PhosLo 667 mg three times a day, ProAmatine 2.5 mg twice a day, Protonix 40 mg daily, Seroquel 25 mg at bedtime p.r.n. At present, the patient is to be discharged to subacute rehab after the patient and the family agreed to it. Dictated and electronically signed, not read. Oleg Whitman MD
== END 2018-02-12 16:27 | DRG 312 ==
LOC: ED 09:23 → ERH 13:09 → 2RNO 19:16 → 5RSO 02-09 20:11 → OBSVTOIN 02-10 08:00
PROVIDERS: ADMIT Internal Medicine; ATTEND Internal Medicine
PROC: 5A1D70Z Performance of Urinary Filtration, Intermittent, Less than 6 Hours Per Day (ICD-10-PCS; 2018-02-08)
PROC: 5A1D70Z Performance of Urinary Filtration, Intermittent, Less than 6 Hours Per Day (ICD-10-PCS; principal; 2018-02-11)
DX: I95.2 Hypotension due to drugs (principal); G92 Toxic encephalopathy; N18.6 End stage renal disease; F05 Delirium due to known physiological condition; I13.2 Hypertensive heart and chronic kidney disease with heart failure and with stage 5 chronic kidney disease, or end stage renal disease; N25.81 Secondary hyperparathyroidism of renal origin; F03.90 Unspecified dementia, unspecified severity, without behavioral disturbance, psychotic disturbance, mood disturbance, and anxiety; I50.9 Heart failure, unspecified; N40.0 Benign prostatic hyperplasia without lower urinary tract symptoms; J44.9 Chronic obstructive pulmonary disease, unspecified; E11.40 Type 2 diabetes mellitus with diabetic neuropathy, unspecified; E11.51 Type 2 diabetes mellitus with diabetic peripheral angiopathy without gangrene; D63.1 Anemia in chronic kidney disease; E11.22 Type 2 diabetes mellitus with diabetic chronic kidney disease; E55.9 Vitamin D deficiency, unspecified; E11.65 Type 2 diabetes mellitus with hyperglycemia; E87.6 Hypokalemia; I27.20 Pulmonary hypertension, unspecified; E78.1 Pure hyperglyceridemia; K59.00 Constipation, unspecified; J32.0 Chronic maxillary sinusitis; J32.2 Chronic ethmoidal sinusitis; G31.9 Degenerative disease of nervous system, unspecified; I67.2 Cerebral atherosclerosis; Z99.2 Dependence on renal dialysis; Z86.73 Personal history of transient ischemic attack (TIA), and cerebral infarction without residual deficits; Z87.01 Personal history of pneumonia (recurrent); Z79.82 Long term (current) use of aspirin; Z79.4 Long term (current) use of insulin; Z95.0 Presence of cardiac pacemaker; Z87.891 Personal history of nicotine dependence; Z89.422 Acquired absence of other left toe(s)

== ENCOUNTER 2018-03-10 21:48 | Emergency (ER) | payer MEDICARE, BC ==
[2018-03-10 22:00] VITALS: BMI 24.9
[2018-03-10 22:02] VITALS: RESP 18
--- NOTE | 2018-03-10 22:09 | ED PDOC ---
Arrival/HPI - General Time Seen by Provider: 03/10/18 21:52 Historian: Patient, Correction - History of Present Illness Narrative History of Present Illness (Text): 03/10/18 22:05 Shakeel Dangelo is an 78 year old male, hypertension, hyperlipidemia, dementia, BPH, IDDM, diabetic neuropathy, PVD, ESRD on hemodialysis, pacemaker, TIA, CHF, and COPD, who presents to the Emergency department sent from group home status post fall. Patient states he fell out of bed trying to get in to his wheelchair. As per group home documentation, patient fell on to his hands and knees, note patient has also fallen twice over the past 2 weeks. Patient denies any chest pain, abdominal pain, headache, extremity pain, or any other complaints. PMD: Dr. Whitman Symptom Onset: Gradual Symptom Course: Unchanged Activities at Onset: Light Context: Home ([facility]) Past Medical History - Provider Review Nursing Documentation Reviewed: Yes - Infectious Disease Hx of Infectious Diseases: None - Cardiac Hx Cardiac Arrhythmia: Yes Hx Congestive Heart Failure: Yes Hx Hypertension: Yes (and hypotension) Other/Comment: 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 - Pulmonary Hx Respiratory Disorders: Yes (respiratory distress) Hx Pneumonia: Yes - Neurological Hx Neurological Disorder: No - HEENT Hx HEENT Disorder: Yes (eyeglasses) - Renal Hx Renal Disorder: Yes (esrd) Hx Dialysis: Yes ([facility] m [facility] ) Date of Last Dialysis Treatment: 02/08/18 - Endocrine/Metabolic Hx Endocrine Disorders: Yes (hypoparathyroidism) - Hematological/Oncological Hx Blood Disorders: Yes (sepsis) Hx Anemia: Yes (blood transfusion) - Integumentary Hx Dermatological Disorder: Yes Other/Comment: diabetic foot ulcers multiple left foot, amputation and debridement of necrotic tissue 02/01/18, left 5th toe sutures intact, left foot al 4 toes have dry wounds anterior toes,and thick dry toenails dry flakey skin, skin discolorations both arms, small 0.3cm round scab rle, lle below knee old scar for "when I was a teenager." swelling and pain left foot with geoffrey dressing to foot - Musculoskeletal/Rheumatological Hx Back Pain: Yes Hx Herniated Disk: Yes (lumbar spine) Hx Unsteady Gait: Yes (walker) - Gastrointestinal Hx Gastrointestinal Disorders: Yes (obese) - Genitourinary/Gynecological Hx Genitourinary Disorders: Yes (oliguria) - Psychiatric Hx Psychophysiologic Disorder: No Hx Substance Use: No - Surgical History Hx Amputation: Yes (left ft 5th toe 02/01/18) Other/Comment: sriram av shunt - Anesthesia Hx Anesthesia Reactions: No Hx Malignant Hyperthermia: No - Suicidal Assessment Feels Threatened In Home Enviroment: No Family/Social History - Physician Review Nursing Documentation Reviewed: Yes Family/Social History: Unknown Family HX Smoking Status: Former Smoker Hx Alcohol Use: No Hx Substance Use: No Allergies/Home Meds Allergies/Adverse Reactions: Allergies No Known Allergies Allergy (Verified 01/23/18 10:11) Review of Systems - Physician Review All systems were reviewed & negative as marked: Yes - Review of Systems Constitutional: Other (+fall) Cardiovascular: absent: Chest Pain Gastrointestinal: absent: Abdominal Pain Neurological: absent: Headache, Dizziness Physical Exam Vital Signs Reviewed: Yes Vital Signs Pulse Resp BP Pulse Ox 03/10/18 22:00 68 18 117/45 L 97 Temperature: Afebrile Blood Pressure: Normal Pulse: Regular Respiratory Rate: Normal Appearance: Positive for: Well-Appearing, Non-Toxic, Comfortable Pain Distress: None Mental Status: Positive for: other (Awake, slightly drowsy but arousable) - Systems Exam Head: Present: Atraumatic, Normocephalic Pupils: Present: PERRL Extroacular Muscles: Present: EOMI Conjunctiva: Present: Normal Mouth: Present: Moist Mucous Membranes Neck: Present: Normal Range of Motion Respiratory/Chest: Present: Clear to Auscultation, Good Air Exchange. No: Respiratory Distress, Accessory Muscle Use Cardiovascular: Present: Regular Rate and Rhythm, Normal S1, S2. No: Murmurs Abdomen: No: Tenderness, Distention, Peritoneal Signs Back: Present: Normal Inspection Upper Extremity: Present: Normal Inspection. No: Cyanosis, Edema Lower Extremity: Present: Normal Inspection. No: Edema Neurological: Present: GCS=15, CN II-XII Intact, Speech Normal Skin: Present: Warm, Dry, Normal Color. No: Rashes Medical Decision Making ED Course and Treatment: 03/10/18 22:05 Impression: 78 year old male sent from group home s/p fall tonight. Plan: -- CT Head w/o contrast -- EKG -- Chest X-ray -- Labs -- Reassess and disposition Prior Visits: Notes and results from previous visits were reviewed. On 02/08/2018, pt was seen in the Emergency department for altered mental status. Pt was admitted to the hospital for further evaluation. Progress Notes: 03/10/18 22:44 Reviewed EKG, NSR at 62 bpm. T wave changes inferiorly and anterolaterally. 03/10/18 23:39 Chest X-ray reviewed, shows no acute processes. 03/11/18 00:30 CT Head reviewed, shows: BRAIN Chronic periventricular and subcortical microvascular disease is seen. VENTRICLES: There is generalized parenchymal atrophy noted as demonstrated by symmetrical dilatation of ventricles and sulci. ORBITS: The orbits are unremarkable. SINUSES AND MASTOIDS: The paranasal sinuses and mastoid air cells are clear. BONES: No fracture. SOFT TISSUES: Unremarkable. MISCELLANEOUS: Several small old lacunar infarcts left will radiata. No acute intracranial pathology. IMPRESSION: 1. There is generalized parenchymal atrophy noted as demonstrated by symmetrical dilatation of ventricles and sulci. 2. Chronic periventricular and subcortical microvascular disease is seen. 3. Several small old lacunar infarcts left will radiata. 4. No acute intracranial pathology. Electronically signed on Mar 11, 2018 12:09:15 AM EST by: Tor Leonard M.D., NAVIN Certified By [facility] [employer] [facility] Fellowship Trained MRI and CT Specialist 03/11/18 00:[address] Whitman, who states patient can be sent back to group home, pending results of XR Hips/Pelvis. 03/11/18 04:59 XR Hips/Pelvis reviewed, show no acute processes. - Lab Interpretations I have reviewed the lab results: Yes - RAD Interpretation Director Of Leadership Development: ED Physician, Radiologist - EKG Interpretation Interpreted by ED Physician: Yes Type: 12 lead EKG - Scribe Statement The provider has reviewed the documentation as recorded by the Jorgitoibpedro luis Chery Provider Scribe Attestation: All medical record entries made by the Scribe were at my direction and personally dictated by me. I have reviewed the chart and agree that the record accurately reflects my personal performance of the history, physical exam, medical decision making, and the department course for this patient. I have also personally directed, reviewed, and agree with the discharge instructions and disposition. Disposition/Present on Arrival - Present on Arrival Any Indicators Present on Arrival: No History of DVT/PE: No History of Uncontrolled Diabetes: No Urinary Catheter: No History of Decub. Ulcer: No History Surgical Site Infection Following: None - Disposition Have Diagnosis and Disposition been Completed?: Yes Diagnosis: Fall Disposition: TRANSF TO SNF Disposition Time: 05:01 Patient Plan: Discharge Patient Problems: Current Active Problems Problem Status Onset Fall Acute Condition: STABLE Additional Instructions: Follow up with your doctor this week() Referrals: Oleg Whitman MD [Primary Care Provider] - Follow up with primary
[2018-03-10 22:53] LABS: HEMOGLOBIN 7.9 g/dL (14.0-18.0); MEAN CELL VOLUME 89.7 fl (80.0-105.0); MEAN CORPUSCULAR HEMOGLOBIN 27.2 pg (25.0-35.0); MEAN CORPUSCULAR HGB CONC 30.4 g/dl (31.0-37.0); MEAN PLATELET VOLUME 10.5 fl (7.0-11.0); RBC 2.9 10^6/uL (3.5-6.1); RED CELL DISTRIBUTION WIDTH 19.1 % (11.5-14.5); WHITE BLOOD COUNT 7.7 10^3/uL (4.5-11.0)
[2018-03-10 22:55] LABS: INR 1.09; PARTIAL THROMBOPLASTIN TIME 35.1 Seconds (25.1-36.5); PROTHROMBIN TIME 12.5 SECONDS (9.4-12.5)
[2018-03-10 23:04] LABS: ALB/GLOB RATIO 0.9 (1.1-1.8); ALBUMIN 3.2 g/dL (3.0-4.8); CALCIUM 8.2 mg/dL (8.4-10.5)
[2018-03-10 23:18] LABS: TROPONIN I 0.07 ng/mL
[2018-03-11 06:10] VITALS: BP 106/59; PULSE 62
[2018-03-11 06:19] VITALS: O2SAT 97
--- NOTE | 2018-03-11 09:50 | CT ---
Date of service: 03/10/2018 PROCEDURE: CT HEAD WITHOUT CONTRAST. HISTORY: medical clearance COMPARISON: 02/08/2018 TECHNIQUE: Axial computed tomography images were obtained through the head/brain without intravenous contrast. Radiation dose: Total exam DLP = 1810.54 mGy-cm. This CT exam was performed using one or more of the following dose reduction techniques: Automated exposure control, adjustment of the mA and/or kV according to patient size, and/or use of iterative reconstruction technique. FINDINGS: HEMORRHAGE: No intracranial hemorrhage. BRAIN: No mass effect or edema. Mild diffuse generalized cerebral atrophy. Moderate patchy and confluent periventricular/deep/subcortical white matter lucency consistent with microvascular white matter ischemic change. Old left lentiform nucleus lacunar infarct. No evidence of acute infarct. VENTRICLES: Unremarkable. No hydrocephalus. CALVARIUM: Unremarkable. PARANASAL SINUSES: Chronic frontal and bilateral maxillary sinusitis. Right maxillary retention cyst/polyp. No evidence of acute sinusitis. MASTOID AIR CELLS: Unremarkable as visualized. No inflammatory changes. OTHER FINDINGS: None. IMPRESSION: No intracranial mass, hemorrhage or evidence of acute infarct. Chronic white matter ischemic change. Atrophy. Old left lentiform nucleus lacunar infarct. Chronic paranasal sinusitis.
--- NOTE | 2018-03-11 11:11 | RAD ---
Date of service: 03/10/2018 PROCEDURE: CHEST RADIOGRAPH, 1 VIEW HISTORY: fell COMPARISON: 01/23/2018 FINDINGS: LUNGS: Peribronchial thickening. No focal consolidation PLEURA: No pneumothorax or pleural fluid seen. CARDIOVASCULAR: Mild cardiomegaly. Single lead pacemaker. Aortic calcification OSSEOUS STRUCTURES: No significant abnormalities. VISUALIZED UPPER ABDOMEN: Normal. OTHER FINDINGS: None. IMPRESSION: No active disease.
--- NOTE | 2018-03-11 11:27 | RAD ---
PROCEDURE: Radiographs of the pelvis and bilateral hips HISTORY: fall COMPARISON: None. FINDINGS: BONES: Pelvis: Unremarkable. Right hip:Unremarkable. Left hip:Unremarkable. JOINTS: Right hip: Mild superior osteoarthritis. No articular erosions. Left hip: Mild superior osteoarthritis. No articular erosions. Sacroiliac Joints: Unremarkable. Pubic symphysis: Unremarkable. SOFT TISSUES: Normal. OTHER FINDINGS: None. 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 No acute fracture.
--- NOTE | 2018-03-11 14:38 | CARD ---
APPROVED REPORT Date of service: 03/10/2018 EKG Measurement Heart [id number] [id number] <Conclusion> Normal sinus rhythm T wave abnormality, consider inferior ischemia T wave abnormality, consider anterolateral ischemia Prolonged QT Abnormal ECG
== END 2018-03-11 06:17 ==
LOC: ED 21:48
DX: Z04.89 Encounter for examination and observation for other specified reasons (principal); W05.0XXA Fall from non-moving wheelchair, initial encounter; Y92.129 Unspecified place in nursing home as the place of occurrence of the external cause; I12.0 Hypertensive chronic kidney disease with stage 5 chronic kidney disease or end stage renal disease; N18.6 End stage renal disease; E78.5 Hyperlipidemia, unspecified; F03.90 Unspecified dementia, unspecified severity, without behavioral disturbance, psychotic disturbance, mood disturbance, and anxiety; I50.9 Heart failure, unspecified; J44.9 Chronic obstructive pulmonary disease, unspecified; Z86.73 Personal history of transient ischemic attack (TIA), and cerebral infarction without residual deficits; Z99.2 Dependence on renal dialysis; Z87.891 Personal history of nicotine dependence
CPT/HCPCS: 70450; 71045; 73521; 80053; 82550; 83615; 84484; 85027; 85610; 85730; 93005; 96374; 99284; J2060

== ENCOUNTER 2018-05-04 06:08 | Inpatient (IN) | payer MEDICARE, BC ==
[2018-05-04 06:13] VITALS: BMI 29.5
--- NOTE | 2018-05-04 07:25 | ED PDOC ---
Arrival/HPI - General Chief Complaint: Trauma Time Seen by Provider: 05/04/18 07:12 Historian: Patient, Custodial - History of Present Illness Narrative History of Present Illness (Text): 05/04/18 07:15 Shakeel Dangelo is an 78 year old male, hypertension, hyperlipidemia, advanced dementia, BPH, IDDM, diabetic neuropathy, PVD, ESRD on hemodialysis, pacemaker, TIA, CHF, and COPD, who presents to the Emergency department sent from [facility] status post reported fall. Limited history is provided. Patient has advanced dementia, but denies any complaints. Patient noted to have sustained an abrasion to the right elbow, otherwise is in no acute distress. Patient denies any fever or any other complaints. 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 - Pulmonary Hx Respiratory Disorders: Yes (respiratory distress) Hx Pneumonia: Yes - Neurological Hx Neurological Disorder: No - HEENT Hx HEENT Disorder: Yes (eyeglasses) - Renal Hx Renal Disorder: Yes (esrd) Hx Dialysis: Yes ([facility]) Date of Last Dialysis Treatment: 02/08/18 - Endocrine/Metabolic Hx Endocrine Disorders: Yes (hypoparathyroidism) - Hematological/Oncological Hx Blood Disorders: Yes (sepsis) Hx Anemia: Yes (blood transfusion) - Integumentary Hx Dermatological Disorder: Yes Other/Comment: diabetic foot ulcers multiple left foot, amputation and debridement of necrotic tissue 02/01/18, left 5th toe sutures intact, left foot al 4 toes have dry wounds anterior toes,and thick dry toenails dry flakey skin, skin discolorations both arms, small 0.3cm round scab rle, lle below knee old scar for "when I was a teenager." swelling and pain left foot with geoffrey dressing to foot - Musculoskeletal/Rheumatological Hx Back Pain: Yes Hx Herniated Disk: Yes (lumbar spine) Hx Unsteady Gait: Yes (walker) - Gastrointestinal Hx Gastrointestinal Disorders: Yes (obese) - Genitourinary/Gynecological Hx Genitourinary Disorders: Yes (oliguria) - Psychiatric Hx Psychophysiologic Disorder: No Hx Substance Use: No - Surgical History Hx Amputation: Yes (left ft 5th toe 02/01/18) Other/Comment: sriram av shunt - Anesthesia Hx Anesthesia Reactions: No Hx Malignant Hyperthermia: No - Suicidal Assessment Feels Threatened In Home Enviroment: No Family/Social History - Physician Review Nursing Documentation Reviewed: Yes Family/Social History: Unknown Family HX Smoking Status: Former Smoker Hx Alcohol Use: No Hx Substance Use: No Allergies/Home Meds Allergies/Adverse Reactions: Allergies No Known Allergies Allergy (Verified 05/04/18 06:13) Review of Systems - Review of Systems Systems not reviewed;Unavailable: Dementia Constitutional: Other (+fall). absent: Fevers Respiratory: absent: SOB Cardiovascular: absent: Chest Pain Gastrointestinal: absent: Abdominal Pain Musculoskeletal: absent: Back Pain, Neck Pain Skin: Other (+right elbow abrasion) Neurological: absent: Headache Physical Exam Vital Signs Reviewed: Yes Vital Signs Temp Pulse Resp BP Pulse Ox 05/04/18 06:19 98.2 F 77 16 112/61 92 L Temperature: Afebrile Blood Pressure: Normal Pulse: Regular Respiratory Rate: Normal Appearance: Positive for: Well-Appearing, Non-Toxic, Comfortable Pain Distress: None Mental Status: Positive for: other (Alert) - Systems Exam Head: Present: Atraumatic, Normocephalic Pupils: Present: PERRL Extroacular Muscles: Present: EOMI Conjunctiva: Present: Normal Mouth: Present: Moist Mucous Membranes Neck: Present: Normal Range of Motion Respiratory/Chest: Present: Clear to Auscultation, Good Air Exchange. No: Respiratory Distress, Accessory Muscle Use Cardiovascular: Present: Regular Rate and Rhythm, Normal S1, S2. No: Murmurs Abdomen: No: Tenderness, Distention, Peritoneal Signs Back: Present: Normal Inspection Upper Extremity: Present: Normal ROM, NORMAL PULSES, Neurovascularly Intact, Other (Right elbow abrasion). No: Cyanosis, Edema Lower Extremity: Present: Normal Inspection. No: Edema Neurological: Present: GCS=15, CN II-XII Intact Skin: Present: Warm, Dry, Normal Color. No: Rashes Psychiatric: Present: Alert Medical Decision Making ED Course and Treatment: 05/04/18 07:15 Impression: 78 year old male transferred from [facility] status post fall. Plan: -- CT Head w/o contrast -- EKG -- Chest X-ray -- XR Right Elbow -- XR Pelvis -- Labs, cardiac enzymes -- Urinalysis -- Reassess and disposition Prior Visits: Notes and results from previous visits were reviewed. On 03/10/2018, pt was seen in the Emergency department status post fall. Pt was discharged back to [facility]. Progress Notes: 05/04/18 08:01 Reviewed EKG, paced at 60 bpm. 05/04/18 09:05 Radiology reviewed, Chest X-ray shows no acute processes. XR Right Elbow shows no acute processes, no fracture. CT Head: HEMORRHAGE: No intracranial hemorrhage. BRAIN: No mass effect or edema. Atrophy. Chronic microvascular ischemic changes. Chronic left basal ganglia lacunar infarctions. VENTRICLES: Unremarkable. No hydrocephalus. CALVARIUM: Unremarkable. PARANASAL SINUSES: Trace frontal and bilateral maxillary sinus mucosal thickening. MASTOID AIR CELLS: Unremarkable as visualized. No inflammatory changes. OTHER FINDINGS: None. IMPRESSION: No acute intracranial pathology. Age-related changes. No significant interval change. 05/04/18 09:[address] Whitman, PMD. States pt is due for hemodialysis today. Paged nephrology. 05/04/18 10:03 XR Pelvis IMPRESSION: Diffuse osteopenia limits evaluation. Questionable sclerosis and linear lucency within the left S1 sacral ala for which acute fracture cannot be entirely excluded. If there is strong concern for sacral fracture, CT scan of the pelvis can be obtained further evaluation as clinically warranted. Pt sleeping comfortably, in no acute distress. Case discussed with Dr. Ren, behaviorist covering for Dr. Fox. Arrangements made for dialysis at [facility]. 05/04/18 10:[address] Marvin, radiology, states XR Pelvis findings may be due to overlying bowel gas. Pt is non-tender over the area, in no acute distress. 05/04/18 10:55 CT Pelvis: BLADDER: Unremarkable. No mass. REPRODUCTIVE ORGANS: Unremarkable. VISUALIZED BOWEL: Colonic diverticulosis. PERITONEUM: Fat containing umbilical hernia. Small right fat containing inguinal hernia.. No free fluid. No free air. LYMPH NODES: Unremarkable. No enlarged lymph nodes. BONES: Nondisplaced superior and inferior pubic rami fractures. No sacral fracture. Spinal degenerative changes. VASCULATURE: Aortic atherosclerotic calcification and mural plaque present. OTHER FINDINGS: None. IMPRESSION: Nondisplaced left superior and inferior pubic rami fractures. No sacral fracture. 05/04/18 11:[address] Whitman, regarding CT scan findings. Call placed to orthopedist business info consultant. 05/04/18 11:[address] Pacheco, orthopedist, who will consult on case 05/04/18 11:[address] Whitman, who accepts pt in to his service. Pt will be admitted to [facility] for pelvic fracture and ESRD. Requests Dr. Thomas and Dr. Pacheco. - Lab Interpretations I have reviewed the lab results: Yes - RAD Interpretation Customer Experience Retail Clerk: Radiologist - EKG Interpretation Interpreted by ED Physician: Yes Type: 12 lead EKG - Scribe Statement The provider has reviewed the documentation as recorded by the Marco Antonio Chery Provider Scribe Attestation: All medical record entries made by the Scribe were at my direction and personally dictated by me. I have reviewed the chart and agree that the record accurately reflects my personal performance of the history, physical exam, medical decision making, and the department course for this patient. I have also personally directed, reviewed, and agree with the discharge instructions and disposition. Disposition/Present on Arrival - Present on Arrival Any Indicators Present on Arrival: No History of DVT/PE: No History of Uncontrolled Diabetes: No Urinary Catheter: No History of Decub. Ulcer: No History Surgical Site Infection Following: None - Disposition Have Diagnosis and Disposition been Completed?: Yes Diagnosis: Fall, Pelvic fracture Disposition: HOME/ ROUTINE Disposition Time: 09:55 Patient Problems: Current Active Problems Problem Status Onset Fall Acute Condition: STABLE
[2018-05-04 08:12] LABS: BASO # 0.02 K/mm3 (0.0-2.0); BASO % 0.4 % (0.0-3.0); EOS # 0.1 (0.0-0.7); EOS % 1.9 % (1.5-5.0); GRAN # 3.14 (1.4-6.5); GRAN % 54.9 % (50.0-68.0); HEMOGLOBIN 9.1 g/dL (14.0-18.0); LYMPH # 2.1 (1.2-3.4); MEAN CELL VOLUME 97.1 fl (80.0-105.0); MEAN CORPUSCULAR HGB CONC 29.8 g/dl (31.0-37.0); MEAN PLATELET VOLUME 10.8 fl (7.0-11.0); MONO # 0.3 (0.1-0.6); MONO % 5.8 % (1.0-6.0); RBC 3.14 10^6/uL (3.5-6.1); RED CELL DISTRIBUTION WIDTH 19.1 % (11.5-14.5); WHITE BLOOD COUNT 5.7 10^3/uL (4.5-11.0)
[2018-05-04 08:18] LABS: ALB/GLOB RATIO 1.1 (1.1-1.8); ALBUMIN 3.5 g/dL (3.0-4.8); CALCIUM 8.2 mg/dL (8.4-10.5)
[2018-05-04 08:25] LABS: INR 1.09; PARTIAL THROMBOPLASTIN TIME 37.6 Seconds (25.1-36.5); PROTHROMBIN TIME 12.6 SECONDS (9.4-12.5)
[2018-05-04 08:27] LABS: TROPONIN I 0.07 ng/mL
--- NOTE | 2018-05-04 09:00 | CT ---
Date of service: 05/04/2018 PROCEDURE: CT HEAD WITHOUT CONTRAST. HISTORY: fall COMPARISON: CT head dated 03/10/2018 TECHNIQUE: Axial computed tomography images were obtained through the head/brain without intravenous contrast. Radiation dose: Total exam DLP = 929.42 mGy-cm. This CT exam was performed using one or more of the following dose reduction techniques: Automated exposure control, adjustment of the mA and/or kV according to patient size, and/or use of iterative reconstruction technique. FINDINGS: HEMORRHAGE: No intracranial hemorrhage. BRAIN: No mass effect or edema. Atrophy. Chronic microvascular ischemic changes. Chronic left basal ganglia lacunar infarctions. VENTRICLES: Unremarkable. No hydrocephalus. CALVARIUM: Unremarkable. PARANASAL SINUSES: Trace frontal and bilateral maxillary sinus mucosal thickening. MASTOID AIR CELLS: Unremarkable as visualized. No inflammatory changes. OTHER FINDINGS: None. IMPRESSION: No acute intracranial pathology. Age-related changes. No significant interval change.
--- NOTE | 2018-05-04 09:58 | RAD ---
Date of service: 05/04/2018 PROCEDURE: Radiographs of the pelvis. HISTORY: fall COMPARISON: Pelvis radiographs dated 03/11/2018 FINDINGS: BONES: Pelvic Bones: Diffuse osteopenia. Questionable sclerosis and linear lucency within the left S1 sacral ala. Hips: No acute fracture. Diffuse osteophytic and degenerative change JOINTS: Sacroiliac Joints: Unremarkable. Pubic Symphysis: Sclerotic OTHER FINDINGS: None. IMPRESSION: Diffuse osteopenia limits evaluation. Questionable sclerosis and linear lucency within the left S1 sacral ala for which acute fracture cannot be entirely excluded. If there is strong concern for sacral fracture, CT scan of the pelvis can be obtained further evaluation as clinically warranted.
--- NOTE | 2018-05-04 09:59 | RAD ---
Date of service: 05/04/2018 PROCEDURE: Radiographs of the right elbow. HISTORY: fall COMPARISON: No prior. FINDINGS: BONES: No acute fracture. JOINTS: Degenerative changes. SOFT TISSUES: Normal. JOINT EFFUSION: None. OTHER FINDINGS: None. IMPRESSION: No demonstrated fracture or dislocation. Degenerative changes.
--- NOTE | 2018-05-04 10:00 | RAD ---
Date of service: 05/04/2018 PROCEDURE: CHEST RADIOGRAPH, 1 VIEW HISTORY: fall COMPARISON: Chest radiograph dated 03/10/2018 FINDINGS: LUNGS: Stable chronic prominence of the bilateral interstitial markings with superimposed pulmonary vascular congestion not excluded. No focal consolidation. PLEURA: No pneumothorax or pleural fluid seen. CARDIOVASCULAR: Right subclavian access pacemaker redemonstrated. Aortic atherosclerotic calcifications. Cardiomediastinal silhouette stably enlarged. OSSEOUS STRUCTURES: Unchanged VISUALIZED UPPER ABDOMEN: Normal. OTHER FINDINGS: None. IMPRESSION: Stable chronic prominence of the bilateral interstitial markings with superimposed pulmonary vascular congestion not excluded. No focal consolidation or pleural effusion.
--- NOTE | 2018-05-04 10:58 | CT ---
Date of service: 05/04/2018 PROCEDURE: CT Pelvis without contrast HISTORY: possible sacral fracture COMPARISON: Pelvis radiograph performed earlier the same day. CT scan of the chest, abdomen pelvis dated 01/24/2018. TECHNIQUE: Contiguous axial images of the pelvis . No intravenous or oral contrast given. Coronal and sagittal reformats generated. Radiation dose: Total exam DLP = 874.1 mGy-cm. This CT exam was performed using one or more of the following dose reduction techniques: Automated exposure control, adjustment of the mA and/or kV according to patient size, and/or use of iterative reconstruction technique. FINDINGS: BLADDER: Unremarkable. No mass. REPRODUCTIVE ORGANS: Unremarkable. VISUALIZED BOWEL: Colonic diverticulosis. PERITONEUM: Fat containing umbilical hernia. Small right fat containing inguinal hernia.. No free fluid. No free air. LYMPH NODES: Unremarkable. No enlarged lymph nodes. BONES: Nondisplaced superior and inferior pubic rami fractures. No sacral fracture. Spinal degenerative changes. VASCULATURE: Aortic atherosclerotic calcification and mural plaque present. OTHER FINDINGS: None. IMPRESSION: Nondisplaced left superior and inferior pubic rami fractures. No sacral fracture.
[2018-05-04] MEDS ORDERED: Dextrose 50% SYRINGE Inj (50 ml) IV PRN (17:07)
--- NOTE | 2018-05-04 17:48 | CARD ---
APPROVED REPORT Date of service: 05/04/2018 EKG Measurement Heart [id number] <Conclusion> Ventricular paced rhythm Abnormal ECG
[2018-05-04] MEDS: Pantoprazole 40 mg EC Tab PO SCH (19:48)
[2018-05-04] MEDS: Omega-3-Acid Ethyl Esters 1 GM Cap PO SCH (19:49)
[2018-05-04] MEDS: Lidocaine 5% Patch TD SCH (19:49)
--- NOTE | 2018-05-04 21:18 | CP.PCM.CON ---
History of Present Illness - History of Present Illness History of Present Illness: Providing nephrology coverage for Dr. Thomas: 78 yo M w/ pmh of htn, dm, CHF s/p pacemaker, PAD, diabetic foot wounds, COPD and ESRD on HD (TTS at [facility], under Dr. Thomas), sent from [place] s/p fall; nephrology being consulted for ESRD care; Patient reports feeling well; denies any prodrome of dizziness or palpitations; had been eating well; denies any nausea/vomiting/diarrhea; in ED, CT done showing non-displaced left superior and inferior pubic rami fractures and hence patient admitted for further workup; Per outpatient HD unit, patient tends to have 3-4L fluid removed on HD; patient is anuric; denies any difficulty breathing; Review of Systems - Constitutional Constitutional: absent: Chills, Fever - EENT Nose/Mouth/Throat: absent: Sore Throat - Cardiovascular Cardiovascular: absent: Chest Pain - Respiratory Respiratory: absent: Dyspnea - Gastrointestinal Gastrointestinal: As Per HPI - Genitourinary Genitourinary: As Per HPI - Musculoskeletal Additional comments: denies any pain - Neurological Neurological: As Per HPI - Psychiatric Additional comments: some dementia reported; Past Patient History - Infectious Disease Hx of Infectious Diseases: None - Past Medical History & Family History Past Medical History?: Yes Pertinent Family History: unknown - Past Social History Smoking Status: Former Smoker - CARDIAC Hx Cardia Arrhythmia: Yes Hx Congestive Heart Failure: Yes Hx Hypertension: Yes (and hypotension) Other/Comment: 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 - PULMONARY Hx Respiratory Disorders: Yes (respiratory distress) Hx Pneumonia: Yes - NEUROLOGICAL Hx Neurological Disorder: No - HEENT Hx HEENT Problems: Yes (eyeglasses) - RENAL Hx Chronic Kidney Disease: Yes (esrd) Hx Dialysis: Yes ([facility]) Date of Last Dialysis Treatment: 02/08/18 - ENDOCRINE/METABOLIC Hx Endocrine Disorders: Yes (hypoparathyroidism) - HEMATOLOGICAL/ONCOLOGICAL Hx Blood Disorders: Yes (sepsis) Hx Anemia: Yes (blood transfusion) - INTEGUMENTARY Hx Dermatological Problems: Yes Other/Comment: diabetic foot ulcers multiple left foot, amputation and debridement of necrotic tissue 02/01/18, left 5th toe sutures intact, left foot al 4 toes have dry wounds anterior toes,and thick dry toenails dry flakey skin, skin discolorations both arms, small 0.3cm round scab rle, lle below knee old scar for "when I was a teenager." swelling and pain left foot with geoffrey dressing to foot - MUSCULOSKELETAL/RHEUMATOLOGICAL Hx Back Pain: Yes Hx Herniated Disk: Yes (lumbar spine) Hx Unsteady Gait: Yes (walker) - GASTROINTESTINAL Hx Gastrointestinal Disorders: Yes (obese) - GENITOURINARY/GYNECOLOGICAL Hx Genitourinary Disorders: Yes (oliguria) - PSYCHIATRIC Hx Psychophysiologic Disorder: No Hx Substance Use: No - SURGICAL HISTORY Hx Amputation: Yes (left ft 5th toe 02/01/18) Other/Comment: sriram av shunt - ANESTHESIA Hx Anesthesia Reactions: No Hx Malignant Hyperthermia: No Meds Home Medications: Home Medication List Medication Instructions Recorded Confirmed Type Memantine [Namenda] 10 mg PO BID #60 tab 05/05/18 Rx Allergies/Adverse Reactions: Allergies Allergy/AdvReac Type Severity Reaction Status Date / Time No Known Allergies Allergy Verified 05/04/18 06:13 - Medications Medications: Current Medications Acetaminophen (Tylenol 325mg Tab) 650 mg PO Q6 PRN PRN Reason: TEMP>=99.5F Acetaminophen (Tylenol 650 Mg Supp) 650 mg RC Q6H PRN PRN Reason: TEMP>=99.5F Aspirin (Aspirin) 325 mg PO DAILY [facility] Last Admin: 05/04/18 19:47 Dose: 325 mg Atorvastatin Calcium (Lipitor) 40 mg PO HS JERE Calcium Acetate (Phoslo) 667 mg PO WM [facility] Last Admin: 05/04/18 19:48 Dose: 667 mg Carvedilol (Coreg) 12.5 mg PO BID [facility] Last Admin: 05/04/18 19:48 Dose: 12.5 mg Dextrose (Dextrose 50% Inj) 0 ml IV STAT PRN; Protocol PRN Reason: Hypoglycemia Protocol Docusate Sodium (Colace) 100 mg PO Q8 JERE Donepezil HCl (Aricept) 10 mg PO HS JERE Gabapentin (Neurontin) 100 mg PO HS [facility]; Protocol Dextrose (Dextrose 5% In Water 1000 Ml) 1,000 mls @ 0 mls/hr IV .Q0M PRN; Protocol PRN Reason: Hypoglycemia Protocol Insulin Detemir (Levemir) 5 unit SC Q12 JERE Insulin Human Lispro (Humalog Low) 0 units SC AC JERE; Protocol Lidocaine (Lidoderm) 1 ea TD DAILY [facility] Last Admin: 05/04/18 19:49 Dose: 1 ea Memantine (Namenda) 10 mg PO Q12 [facility] Midodrine (Proamatine) 2.5 mg PO BID [facility] Last Admin: 05/04/18 19:49 Dose: 2.5 mg [id number] Ethyl Esters (Lovaza) 1 gm PO BID [facility] Last Admin: 05/04/18 19:49 Dose: 1 gm Ondansetron HCl (Zofran Inj) 4 mg IVP Q4H PRN PRN Reason: Nausea/Vomiting Pantoprazole Sodium (Protonix Ec Tab) 40 mg PO DAILY [facility] Last Admin: 05/04/18 19:48 Dose: 40 mg Quetiapine Fumarate (Seroquel) 25 mg PO HS PRN; Protocol PRN Reason: agitation/aggression Last Admin: 05/04/18 19:47 Dose: 25 mg Tamsulosin HCl (Flomax) 0.4 mg PO DAILY [facility] Last Admin: 05/04/18 19:47 Dose: 0.4 mg Physical Exam - Constitutional Appears: Non-toxic, No Acute Distress - Eye Exam Eye Exam: Normal appearance. absent: Scleral icterus - ENT Exam ENT Exam: Mucous Membranes Moist - Respiratory Exam Respiratory Exam: absent: Wheezes, Respiratory Distress Additional comments: some mild basal rales - Cardiovascular Exam Cardiovascular Exam: REGULAR RHYTHM, +S1, +S2. absent: Gallop, Rubs - GI/Abdominal Exam GI & Abdominal Exam: Soft. absent: Distended, Tenderness - Exam Exam: absent: Bladder Distension - Extremities Exam Additional comments: mild lower leg edema b/l; L arm AVF w/ good bruit; - Neurological Exam Neurological exam: Alert Additional comments: no resting tremor - Psychiatric Exam Additional comments: not agitated but gets upset on being questioned - Skin Skin Exam: Normal Color, Warm Results - Vital Signs Recent Vital Signs: Last Vital Signs Temp 98.2 F 05/04/18 06:19 Pulse 62 05/04/18 09:55 Resp 18 05/04/18 09:55 BP 132/56 L 05/04/18 19:48 Pulse Ox 99 05/04/18 09:55 - Labs Result Diagrams: 05/04/18 07:50 05/04/18 07:50 Labs: Laboratory Results - last 24 hr 05/04/18 05/04/18 05/04/18 07:50 07:50 07:50 WBC 5.7 D RBC 3.14 L Hgb 9.1 L Hct 30.5 L MCV 97.1 D MCH 29.0 MCHC 29.8 L RDW 19.1 H Plt Count 124 MPV 10.8 Gran % 54.9 Lymph % (Auto) 37.0 H Sunflower % (Auto) 5.8 Eos % (Auto) 1.9 Baso % (Auto) 0.4 Gran # 3.14 Lymph # (Auto) 2.1 Sunflower # (Auto) 0.3 Eos # (Auto) 0.1 Baso # (Auto) 0.02 PT 12.6 H INR 1.09 APTT 37.6 H Sodium 142 Potassium 4.2 Chloride 103 Carbon Dioxide 29 Anion Gap 15 BUN 63 H Creatinine 6.0 H Est GFR ( Amer) 11 Est GFR (Non-Af Amer) 9 POC Glucose (mg/dL) Random Glucose 168 H Calcium 8.2 L Magnesium 2.0 Total Bilirubin 0.4 AST 23 ALT 27 Alkaline Phosphatase 81 Lactate Dehydrogenase 488 Total Creatine Kinase 56 Troponin I 0.07 Total Protein 6.7 Albumin 3.5 Globulin 3.2 Albumin/Globulin Ratio 1.1 05/04/18 05/04/18 18:07 21:13 WBC RBC Hgb Hct MCV MCH MCHC RDW Plt Count MPV Gran % Lymph % (Auto) Sunflower % (Auto) Eos % (Auto) Baso % (Auto) Gran # Lymph # (Auto) Sunflower # (Auto) Eos # (Auto) Baso # (Auto) PT INR APTT Sodium Potassium Chloride Carbon Dioxide Anion Gap BUN Creatinine Est GFR ( Amer) Est GFR (Non-Af Amer) POC Glucose (mg/dL) 102 185 H Random Glucose Calcium Magnesium Total Bilirubin AST ALT Alkaline Phosphatase Lactate Dehydrogenase Total Creatine Kinase Troponin I Total Protein Albumin Globulin Albumin/Globulin Ratio - Imaging and Cardiology Chest x-ray Status: Image reviewed by me Additional comment: lungs clear Assessment & Plan (1) ESRD on hemodialysis Assessment and Plan: Stable volume and electrolyte status; CHF status with moderate pulm htn noted; dialyzing today per routine on higher potassium bath (to avoid hypokalemia) with UF goal of 3.5 L (seen on HD and tolerating well); next HD for Sunday (Sunday is holiday at all outpatient units); Status: Chronic (2) Hypertensive CKD, ESRD on dialysis Assessment and Plan: On coreg 12.5 mg bid; also on minimal dose of midodrine as outpatient; BP currently well controlled; consider switching coreg to metoprolol if patient is having periods of hypotension; Status: Chronic (3) Chronic kidney disease-mineral and bone disorder Assessment and Plan: Secondary hyperparathyoidism of CKD; corrected Ca at low end of normal; will give hectorol on HD if patient remains admitted; continue phoslo 1 tab w/ meals; Status: Chronic (4) Anemia in CKD (chronic kidney disease) Assessment and Plan: Hgb below goal for CKD (10-11g); receiving weekly aranesp at outpatient HD; will re-dose if patient remains admitted; Status: Acute
[2018-05-04] MEDS ORDERED: Influenza Vaccine 60 mcg/0.5 mL SYR (4YR UP) IM ONE (21:51)
[2018-05-04] MEDS ORDERED: Pneumococcal 23-Valent Vaccine IM ONE (21:51)
--- NOTE | 2018-05-04 22:10 | HP ---
DATE OF EXAM: 05/04/2018 HISTORY OF PRESENT ILLNESS: The patient is an 78-year-old male who was transferred from [facility]. According to the group home call, the patient fell out of the bed while transferring himself from the bed to the wheelchair and was found on the floor mat and the group home staff noted the patient to be found on the floor with elbow abrasion. The patient denies any loss of consciousness. Denies any syncope. The patient sustained an abrasion to the elbow. The patient was evaluated by the nurses in the group home, then the patient was sent to the [place] [facility] for evaluation. REVIEW OF SYSTEMS: A 14-system review was positive for fall and positive for elbow abrasion. CODE STATUS: Full code. LIVING WILL ADVANCE DIRECTIVE: None. ALLERGIES: NONE. Height is 5 feet 9 inches. Weight is 200. BMI is 29.5. CORRECTION MEDICATIONS: 1. Aricept 10 mg daily. 2. Aspirin 325 daily. 3. Colace 100 mg three times a day. 4. Coreg 12.5 twice a day. 5. Flomax 0.4 mg daily. 6. Lidoderm 5% patch to the affected area. 7. Lipitor 40 mg daily. 8. Lovaza 1 g twice a day. 9. Namenda 5 mg twice a day. 10. Neurontin 100 mg at bedtime. 11. PhosLo 667 mg three times a day. 12. ProAmatine 2.5 mg twice a day. 13. Protonix 40 mg daily. 14. Seroquel 25 mg at bedtime p.r.n. 15. Toujeo insulin 10 units at bedtime. SOCIAL HISTORY: Positive for former smoking. Denies alcohol. Denies drug use. OCCUPATIONAL HISTORY: Disabled, group home resident. FAMILY HISTORY: Diabetes and hypertension. PAST MEDICAL AND SURGICAL HISTORY: History of insulin-requiring diabetes mellitus, history of anemia, history of right upper chest pacemaker placement, history of constipation, history of prostatic hypertrophy, history of degenerative joint disease, history of hyperlipidemia, hypertriglyceridemia, history of diabetic neuropathy, history of secondary hyperparathyroidism secondary to end-stage renal disease, hemodialysis dependent, and history of delirium. The patient's past medical history is significant for history of former smoker, history of questionable congestive heart failure, history of hypertension, hypotension, history of sinus arrest, history of pacemaker implant, history of hyperparathyroidism, history of multiple diabetic foot ulcer and amputation, history of diabetic foot ulceration and diabetic foot amputation of the toes, history of lumbar disk disease, history of left fifth toe amputation, and history of left upper arm AV fistula insult. The patient's past medical history is significant for history of steal syndrome, history of oropharyngeal , history of dysphagia, history of dementia, history of gait dysfunction, history of deconditioning, history of encephalopathy with exacerbation of encephalopathy and exacerbation of dementia and delirium, history of hypoxemia, history of advanced dementia, history of hypovitaminosis D, history of cerebral cortical atrophy of the brain with ventriculomegaly with chronic microvascular ischemic disease of the brain and chronic left basal ganglia lacunar infarct, history of chronic maxillary sinusitis, history of left fifth toe osteomyelitis and amputation, history of possible drug-induced hypotension, history of vasculopathy of the lower extremity, history of systemic inflammatory response syndrome, history of left fifth toe Enterobacter cloacae and MRSA, diabetic foot ulceration and osteomyelitis, history of intermittent transfusion dependent anemia, history of cortical and cerebellar atrophy, history of encephalopathy with episodic confusion and disorientation, history of proteinuria, glycosuria, hematuria, pyuria, bacteriuria, history of pulmonary emphysema and atelectasis, history of left peroneal artery and left anterior tibial artery angioplasty, atherectomy, history of severe peripheral vascular disease of the lower extremity, history of methicillin-resistant Staphylococcus aureus and Enterobacter cloacae left fifth toe osteomyelitis, dry gangrene and diabetic foot ulcer, history of right-sided diastolic congestive heart failure with pulmonary hypertension, right ventricular systolic pressure of 54 mmHg, history of moderately dilated left and right atrium, history of moderate mitral annular calcification, history of moderate pulmonary hypertension, history of mild tricuspid, mild mitral regurgitation, history of pulmonary hypertension, history of left ventricular ejection fraction of 56%, history of [id number] oropharyngeal dysphagia resolved, history of poor compliance and noncompliance, history of end-stage renal disease, hemodialysis dependent three times a week via the left upper extremity AV fistula, history of permanent pacemaker implant, history of pneumonia, history of sepsis, history of left foot osteomyelitis, history of hypoxic respiratory failure, history of sick sinus syndrome, history of macroglossia, history of questionable sleep apnea, history of BiPAP requiring respiratory failure, history of obesity, history of snoring and possible sleep apnea, history of tonsillar hypertrophy and epiglottitis, history of osteopenia, history of emphysema, history of bilateral lower extremity peripheral vascular disease, history of left common femoral artery pseudoaneurysm, status post ultrasound-guided thrombin injection of the left mid femoral artery pseudoaneurysm, and history of incomplete right bundle-branch block. PHYSICAL EXAMINATION: GENERAL: The patient is seen in stretcher #5 in the emergency room. The patient is lying in the bed. The patient is awake, responsive, and alert. VITAL SIGNS: T-max 98.2, heart rate 77, 60, and 62, blood pressure 112/61 and 130/61, respirations 16, and O2 sat 92 to 98%. HEENT: The patient's head examination; normocephalic and atraumatic. HEENT examination shows pinkish conjunctivae. Anicteric sclerae. No oropharyngeal lesion. NECK: No neck rigidity. CHEST: Shows positive right upper chest pacemaker. Positive kyphosis. LUNGS: Shows no audible crackle, rales or wheezing. The patient has rhonchi in anterior lung [place]. CARDIOVASCULAR: S1 and S2, regular rhythm. Positive systolic murmur left sternal border, right second intercostal space, left second intercostal space. ABDOMEN: Soft. Positive bowel sounds. Obese. No palpable hepatosplenomegaly. GENITALIA: Male. RECTAL: Deferred. EXTREMITIES: Shows no pitting edema. No calf tenderness. No Homans' sign. Positive left upper extremity AV fistula. The patient is able to move upper and lower extremity without assistance. Gait examination is not tested. MUSCULOSKELETAL: Shows a body mass index of 29.5. Cranial nerve limited. DIAGNOSTIC DATA: On 05/04/2018; WBC 5.7, hemoglobin and hematocrit 9.1 and 30.5, and platelets 124. PT/PTT 12.6 and 37.6. Sodium 142, potassium 4.2, chloride 103, CO2 of 29, anion gap 15, BUN 63, creatinine 6, GFR 9, glucose 168, calcium 8.2, and magnesium 2. LFTs are normal. The patient's pelvic CT was reviewed. The patient's imaging studies all were reviewed, chest x-ray, elbow x-ray, CT head, pelvic x-rays and pelvic CAT scans were reviewed. The patient was seen and examined by the ER physician. The patient was seen and evaluated by the ER physician, Dr. Springer. The patient was initially being cleared for discharged till the CAT scan of the pelvic results came back abnormal. The patient was consulted in the emergency room by Dr. Pacheco for pelvic fracture. The patient also was advised to be admitted to the hospital because the patient missed his dialysis at [facility] today. So, the patient needs to be admitted. IMPRESSION AND PLAN: 1. Status post mechanical fall. 2. Nondisplaced left superior inferior pubic ramus fracture. 3. Colonic diverticulosis. 4. Fat-containing umbilical hernia. 5. Status post mechanical fall. 6. Elbow abrasion. 7. Right inguinal hernia, fat containing. 8. Degenerate joint disease of the spine. 9. Atherosclerotic calcification and mural plaque of the aorta. 10. Right upper chest pacemaker. 11. Chronic interstitial lung disease. 12. Degenerative joint disease of the right elbow. 13. Cerebral cortical atrophy of the brain with chronic microvascular ischemic disease of the brain. 14. Chronic left basal ganglia lacunar infarct. 15. Bilateral maxillary and frontal sinus mucosal thickening. 16. Diffuse osteopenia. 17. S1 sacral ala questionable sclerosis and linear lucency. 18. Diffuse osteophytic and degenerative joint disease of the hips. 19. Permanent pacemaker implant. 20. Dementia. 21. Gait dysfunction. 22. Constipation. 23. Prostatic hypertrophy. 24. End-stage renal disease hemodialysis dependent three times a week via the left upper extremity arteriovenous fistula. 25. Hyperlipidemia and hypertriglyceridemia. 26. Advanced dementia. 27. Diabetic neuropathy. 28. Secondary hyperparathyroidism. 29. Insulin-requiring diabetes mellitus. Plan at this time, the patient has been admitted as per the ER recommendation because the patient was not able to be evaluated by the Orthopedics in the emergency room and also the patient missed his dialysis at [facility]. The patient has been admitted by the ER physician with consultation Nephrology and Orthopedics ordered. Current medications; Aricept 10 mg at bedtime, aspirin 325 daily, Colace 100 mg three times a day, Coreg 12.5 mg twice a day, hypoglycemia protocol ordered, Flomax 0.4 mg daily, Humalog low-dose sliding scale coverage, Levemir 5 units every 12 hours because Toujeo is nonformulary, Lidoderm 5% patch to the affected area, Lipitor 40 mg daily, Lovaza 1 g twice a day, Namenda 10 mg every 12 hours or twice a day, Neurontin 100 mg at bedtime, PhosLo 667 mg three times a day with meals, ProAmatine 2.5 mg twice a day, Protonix 40 mg daily, Seroquel 25 mg at bedtime p.r.n., Tylenol p.r.n., Zofran 4 mg IV every 4 hours p.r.n., incentive spirometry, consistent carbohydrate diet, RAIZA stockings, and SCDs. Occupational therapy and physical therapy ordered. At present, the patient's further management will be dependent upon the patient's clinical condition, hemodynamic status and as per the patient response to therapeutic intervention, as per the patient's diagnostic test results and as per recommendation by all the physician involved in the care of the patient. At present, the patient was seen and evaluated in the emergency room. The patient will be admitted to [facility] for further evaluation and treatment and recommendation by Orthopedics and Nephrology. Once the patient is cleared for discharge by above, the patient will be considered for discharge. Dictated and electronically signed, not read. Oleg Whitman MD
[2018-05-04] MEDS: Insulin Detemir 100 units/ml Vial (Levemir) SC SCH (23:04)
[2018-05-04 23:27] VITALS: PULSE 60
[2018-05-05] MEDS ORDERED: Insulin Lispro (humaLOG) LOW Coverage SC SCH (07:30)
[2018-05-05 09:00] VITALS: RESP 20; TEMP 98.1; O2SAT 92
[2018-05-05] MEDS: Pantoprazole 40 mg EC Tab PO SCH (09:10)
[2018-05-05] MEDS: Omega-3-Acid Ethyl Esters 1 GM Cap PO SCH (09:10)
[2018-05-05] MEDS: Insulin Detemir 100 units/ml Vial (Levemir) SC SCH (09:12)
[2018-05-05] MEDS: Lidocaine 5% Patch TD SCH (09:14)
[2018-05-05 09:18] VITALS: BP 100/48
--- NOTE | 2018-05-05 10:31 | CON ---
DATE: 05/05/2018 ORTHOPEDIC CONSULT REPORT LOCATION: Room 567, bed 1. HISTORY OF PRESENT ILLNESS: The patient has a history of being admitted on 05/04/2018 after a fall at a half-way at [facility] on the fifth floor and he injured his pelvis. X-ray shows nondisplaced fracture of the left pubic and ischial ramus nondisplaced, considered stable as he can do bilateral leg lifts and straight leg raising. I cannot comprehend the need for therapy, so he has to keep being encouraged to move his legs so he does not get atrophy and weakness which are contributing to falling again. So we have to get strength in his quadriceps by doing therapy, straight leg raising quadriceps and he can put weight on that pelvic fracture because it is very stable. We will ask theraphy to have patient walk with a walker with protection. He can go back to [facility] and they have good rehab also there. FINAL DIAGNOSIS: Nondisplaced stable fracture of the ischial and pubic ramus that is stable and can be allowed to put weight on it in range of motion and ambulate with a walker with protection, and he can go back to [facility] orthopedically and to follow him there. They only stated it will take about 6 weeks to heal completely. Jose Pacheco DO MTDDorys
--- NOTE | 2018-05-06 01:07 | DS ---
HISTORY OF PRESENT ILLNESS: The patient is seen in room 567, bed 1. The patient was seen and evaluated by Nephrology and Orthopedics. The patient was cleared for discharge by both subspecialty. No surgical intervention was needed. Overnight nurse's notes were reviewed. No adverse events were documented. The patient received dialysis yesterday, tolerated dialysis without any issues and problems. The patient rested well. PHYSICAL EXAMINATION VITAL SIGNS: In the last 24 hours, T-max 98.7, heart rate 60, 62, 66 and 72, blood pressure ranging 100/48. 102/49, 98/42, 123/49, and 132/56, respiration 20, O2 sat . HEAD: Normocephalic, atraumatic. HEENT: Shows pinkish pale conjunctivae. Anicteric sclerae. No oropharyngeal lesion. No neck rigidity. CHEST: Kyphosis. LUNGS: Shows no audible crackle, rales or wheezing. CARDIOVASCULAR: S1, S2. Positive systolic murmur left sternal border, right second intercostal space, left second intercostal space. ABDOMEN: Soft. Positive bowel sounds, protuberant, no palpable hepatosplenomegaly noted. GENITALIA: Male. RECTAL: Deferred. EXTREMITY: Shows positive left upper extremity AV fistula. Lower extremity shows trace swelling of the lower extremity. No pitting edema. No calf tenderness. No Homans' sign. NEUROLOGIC: The patient is alert, awake, responsive, is able to move upper and lower extremity without assistance. Gait examination could not be tested. The patient is sitting up in the bed. MUSCULOSKELETAL: Shows a body mass index of 30. DIAGNOSTICS: None. Fingerstick blood sugar 85, 86, 185, 102. FINAL IMPRESSION, PLAN AND DISCHARGE DIAGNOSES: 1. Status post mechanical fall. 2. Nondisplaced stable fracture of the left pubic and ischium ramus nondisplaced, nonoperative. 3. Gait dysfunction. 4. Deconditioning. 5. Hypertensive chronic kidney disease. 6. Anemia of chronic kidney disease. 7. Hypotension. 8. Normocytic anemia and anemia of chronic disease. 9. Hyperglycemia with insulin-requiring diabetes mellitus. 10. Nondisplaced left superior and inferior pubic ramus fracture. 11. Colonic diverticulosis. 12. Elbow abrasion. 13. Fat-containing right inguinal hernia. 14. Degenerative joint disease of the spine. 15. Aortic atherosclerotic calcification and mural plaque. 16. Right upper chest pacemaker. 17. Chronic interstitial pulmonary disease. 18. Degenerative joint disease of the right elbow. 19. Cerebral cortical atrophy of the brain with chronic microvascular skin disease of the brain. 20. Chronic left basal ganglia lacunar infarct. 21. Bilateral maxillary and frontal sinus mucosal thickening. 22. S1 sacral ala questionable sclerosis and linear lucency. 23. Diffuse osteopenia and degenerative joint disease of the hips. 24. Permanent pacemaker. 25. End-stage renal disease, hemodialysis dependent three times a week via the left upper extremity AV fistula. 26. Hyperlipidemia and hypertriglyceridemia. 27. Advanced dementia. 28. Secondary hyperparathyroidism. 29. Constipation. 30. Prostatic hypertrophy. 31. Insulin-requiring diabetes mellitus. 32. Diabetic neuropathy. 33. History of delirium. PLAN: At this time, the patient is to be discharge back to shelter to [facility] under Dr. Whitman service. DISCHARGE MEDICATIONS: 1. Aspirin 325 mg daily. 2. Lipitor 40 mg daily. 3. PhosLo 667 mg three times a day. 4. Coreg 12.5 mg twice a day. 5. Colace 100 mg three times a day. 6. Aricept 10 mg at bedtime. 7. Neurontin 100 mg at bedtime. 8. Toujeo SoloStar 10 units at bedtime. 9. Lidoderm 5% patch to the affected area. 10. Namenda 10 mg twice a day. 11. ProAmatine 2.5 mg twice a day. 12. in a man ProAmatine is 2.5 mg twice a day. 13. Lovaza 1 g twice a day. 14. Protonix 40 mg daily. 15. Seroquel 25 mg at bedtime p.r.n. 16. Flomax 0.4 mg daily. The patient is seen and cleared by Orthopedics and Nephrology. The patient is discharged back to [facility] under Dr. Whitman service. Time spent discharge process 45 minutes. Dictated and electronically signed, not read. Signing off, Oleg Whitman MD
== END 2018-05-05 15:35 | DRG 291 ==
LOC: ED 06:08 → ERH 11:42 → 5RNO 18:00
PROVIDERS: ADMIT Internal Medicine; ATTEND Internal Medicine
DX: I50.9 Heart failure, unspecified (principal); F03.90 Unspecified dementia, unspecified severity, without behavioral disturbance, psychotic disturbance, mood disturbance, and anxiety; N18.6 End stage renal disease; S32.592A Other specified fracture of left pubis, initial encounter for closed fracture; I13.2 Hypertensive heart and chronic kidney disease with heart failure and with stage 5 chronic kidney disease, or end stage renal disease; N25.81 Secondary hyperparathyroidism of renal origin; J84.9 Interstitial pulmonary disease, unspecified; G45.9 Transient cerebral ischemic attack, unspecified; S50.311A Abrasion of right elbow, initial encounter; W06.XXXA Fall from bed, initial encounter; Y92.129 Unspecified place in nursing home as the place of occurrence of the external cause; E11.22 Type 2 diabetes mellitus with diabetic chronic kidney disease; D63.1 Anemia in chronic kidney disease; K57.30 Diverticulosis of large intestine without perforation or abscess without bleeding; K40.90 Unilateral inguinal hernia, without obstruction or gangrene, not specified as recurrent; M19.021 Primary osteoarthritis, right elbow; M47.9 Spondylosis, unspecified; M85.80 Other specified disorders of bone density and structure, unspecified site; N40.0 Benign prostatic hyperplasia without lower urinary tract symptoms; M16.0 Bilateral primary osteoarthritis of hip; E11.51 Type 2 diabetes mellitus with diabetic peripheral angiopathy without gangrene; Z79.4 Long term (current) use of insulin; Z79.899 Other long term (current) drug therapy; Z86.73 Personal history of transient ischemic attack (TIA), and cerebral infarction without residual deficits; K42.9 Umbilical hernia without obstruction or gangrene; K59.00 Constipation, unspecified; E11.40 Type 2 diabetes mellitus with diabetic neuropathy, unspecified; E11.65 Type 2 diabetes mellitus with hyperglycemia; E20.9 Hypoparathyroidism, unspecified; E78.5 Hyperlipidemia, unspecified; J32.0 Chronic maxillary sinusitis; J44.9 Chronic obstructive pulmonary disease, unspecified; I27.20 Pulmonary hypertension, unspecified; Z87.891 Personal history of nicotine dependence; Z87.01 Personal history of pneumonia (recurrent); Z95.0 Presence of cardiac pacemaker; Z99.2 Dependence on renal dialysis

== ENCOUNTER 2018-06-11 10:16 | Inpatient (IN) | payer MEDICARE, BC ==
[2018-06-11 10:33] VITALS: BMI 33.3
--- NOTE | 2018-06-11 10:48 | ED PDOC ---
Arrival/HPI - General Chief Complaint: Weakness/Neurological Deficit Time Seen by Provider: 06/11/18 10:28 Historian: Spouse - History of Present Illness Narrative History of Present Illness (Text): 06/11/18 10:48 78 year old male, hypertension, hyperlipidemia, advanced dementia, BPH, IDDM, diabetic neuropathy, PVD, ESRD on hemodialysis (M,W,F), pacemaker, TIA, CHF, and COPD, who presents to the Emergency department, accompanied by for evaluation of increased somnolence. states he has been lethargic all morning, which was similar to previous time when his blood pressure was low. She notes blood pressure of 80/40 and a fluctuating sugar level of 226 at 7:30am and 402 at 10:am. denies fever, however she did notice that his shirt was drenched in sweat in the morning. Of note, gave him all his medication this morning before arrival including aspirin 325mg, except his blood pressure medication. She denies headache, dizziness, chest pain, shortness of breath, dyspnea on exertion, cough, abdominal pain, nausea, vomiting, diarrhea, back pain, neck pain, or any other complaint. Time/Duration: Prior to Arrival Symptom Onset: Gradual Symptom Course: Unchanged Activities at Onset: Light Context: Home Past Medical History - Provider Review Nursing Documentation Reviewed: Yes - Infectious Disease Hx of Infectious Diseases: None - Cardiac Hx Cardiac Arrhythmia: Yes Hx Congestive Heart Failure: Yes Hx Hypertension: Yes (and hypotension) Other/Comment: 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 - Pulmonary Hx Respiratory Disorders: Yes (respiratory distress) Hx Pneumonia: Yes - Neurological Hx Neurological Disorder: No - HEENT Hx HEENT Disorder: Yes (eyeglasses) - Renal Hx Renal Disorder: Yes (esrd) Hx Dialysis: Yes ([facility] [place] [facility]) Date of Last Dialysis Treatment: 02/08/18 - Endocrine/Metabolic Hx Endocrine Disorders: Yes (hypoparathyroidism) - Hematological/Oncological Hx Blood Disorders: Yes (sepsis) Hx Anemia: Yes (blood transfusion) - Integumentary Hx Dermatological Disorder: Yes Other/Comment: diabetic foot ulcers multiple left foot, amputation and debride ment of necrotic tissue 02/01/18, left 5th toe sutures intact, left foot al 4 toes have dry wounds anterior toes,and thick dry toenails dry flakey skin, skin discolorations both arms, small 0.3cm round scab rle, lle below knee old scar for "when I was a teenager." swelling and pain left foot with geoffrey dressing to foot - Musculoskeletal/Rheumatological Hx Back Pain: Yes Hx Herniated Disk: Yes (lumbar spine) Hx Unsteady Gait: Yes (walker) - Gastrointestinal Hx Gastrointestinal Disorders: Yes (obese) - Genitourinary/Gynecological Hx Genitourinary Disorders: Yes (oliguria) - Psychiatric Hx Psychophysiologic Disorder: No Hx Substance Use: No - Surgical History Hx Amputation: Yes (left ft 5th toe 02/01/18) Other/Comment: sriram av shunt - Anesthesia Hx Anesthesia Reactions: No Hx Malignant Hyperthermia: No - Suicidal Assessment Feels Threatened In Home Enviroment: No Family/Social History - Physician Review Nursing Documentation Reviewed: Yes Family/Social History: No Known Family HX Smoking Status: Former Smoker Hx Alcohol Use: No Hx Substance Use: No Allergies/Home Meds Allergies/Adverse Reactions: Allergies No Known Allergies Allergy (Verified 06/11/18 10:32) Review of Systems - Physician Review All systems were reviewed & negative as marked: Yes - Review of Systems Constitutional: absent: Fevers Respiratory: absent: SOB, Cough Cardiovascular: absent: Chest Pain Gastrointestinal: absent: Abdominal Pain, Diarrhea, Nausea, Vomiting Musculoskeletal: absent: Back Pain, Neck Pain Neurological: absent: Headache, Dizziness Physical Exam Vital Signs Reviewed: Yes Vital Signs Temp Pulse Resp BP Pulse Ox 06/11/18 10:43 98.3 F 06/11/18 10:33 67 18 89/36 L 90 L Temperature: Afebrile Blood Pressure: Hypotensive Pulse: Regular Respiratory Rate: Normal Appearance: Positive for: Well-Appearing, Non-Toxic, Comfortable Pain Distress: None Mental Status: Positive for: other (sleepy but arousable, wakes up to verbal stimuli) Finger Stick Blood Glucose: 264 - Systems Exam Head: Present: Atraumatic, Normocephalic Pupils: Present: Pinpoint Extroacular Muscles: Present: EOMI Conjunctiva: Present: Normal Mouth: Present: Dry, Other (pink). No: Moist Mucous Membranes Neck: Present: Normal Range of Motion Respiratory/Chest: Present: Clear to Auscultation, Good Air Exchange. No: Respiratory Distress, Accessory Muscle Use Cardiovascular: Present: Regular Rate and Rhythm, Normal S1, S2. No: Murmurs Abdomen: No: Tenderness, Distention, Peritoneal Signs Back: Present: Normal Inspection Upper Extremity: Present: Other (dialysis fistula present left upper ectremity, positive bruee and thrill. ). No: Cyanosis, Edema Lower Extremity: Present: Other (healing wound 0.5cm on the dorsum of the great toe of the left foot and an abrasion noted to the second toe on the left foot, no streaking. Amputation noted to the 5th toe on the left foot, well healed. ). No: Edema Neurological: Present: GCS=15, CN II-XII Intact, Speech Normal Skin: Present: Warm, Dry, Normal Color. No: Rashes Psychiatric: Present: Other (sleepy but arousable, wakes up to verbal stimuli) Medical Decision Making ED Course and Treatment: 06/11/18 10:46 Impression: 78 year old male who presents to the emergency department for evaluation of increased somnolence. . Plan: -- VBG -- EKG -- Labs -- Chest X-ray -- Blood Culture -- Reassess and disposition Prior Visits: Notes and results from previous visits were reviewed. Progress Notes: 06/11/18 13:09 Reassessed patient, blood pressure is now 100/60. 06/11/18 13:[address] Whitman and accepted patient into his service. He request Dr. Daniel Navarro, resident consolidation accountant, and Dr. Duran the human performance consultant to evaluate the patient. 06/11/18 13:23 Placed calls to ICU for evaluation and to Dr. Daniel Navarro. 06/11/18 13:42 indicated Patient is DNR and would not any want any intervention, however does not have any written documentation. 06/11/18 13:50 Spoke to heart doctor, Dr. Deluca, who is coming to evaluate patient at bed side. 06/11/18 14:17 Dr. Deluca evaluated patient at bed side, he will not be accepting patient into his care, or ICU. He states patient is stable for admission to telemetry. 06/11/18 15:00 Dr. Navarro evaluated patient at bedside. - Lab Interpretations I have reviewed the lab results: Yes - RAD Interpretation Narrative RAD Interpretations (Text): 06/11/18 12:57 Chest X-ray reviewed, shows: IMPRESSION: No active disease. 06/11/18 13:[address] reviewed, shows: IMPRESSION: No acute intracranial findings Pharmacy Technician Assistant: Radiologist - EKG Interpretation EKG Interpretation (Text): 06/11/18 10:47 EKG reviewed, shows: paced at 65 bpm, similiar to ekg performed on 05/04/18. Interpreted by ED Physician: Yes Type: 12 lead EKG - Scribe Statement The provider has reviewed the documentation as recorded by the Scribe Otilia Patrick Provider Scribe Attestation: All medical record entries made by the Scribe were at my direction and personally dictated by me. I have reviewed the chart and agree that the record accurately reflects my personal performance of the history, physical exam, medical decision making, and the department course for this patient. I have also personally directed, reviewed, and agree with the discharge instructions and disposition. Disposition/Present on Arrival - Present on Arrival Any Indicators Present on Arrival: No History of DVT/PE: No History of Uncontrolled Diabetes: No Urinary Catheter: No History of Decub. Ulcer: No History Surgical Site Infection Following: None - Disposition Have Diagnosis and Disposition been Completed?: Yes Diagnosis: Sepsis, NSTEMI (non-ST elevated myocardial infarction), Hyperglycemia Disposition: HOSPITALIZED Disposition Time: 13:22 Patient Plan: Admission Patient Problems: Current Active Problems Problem Status Onset Hyperglycemia Acute NSTEMI (non-ST elevated myocardial infarction) Acute Sepsis Acute Condition: FAIR
[2018-06-11 11:34] LABS: VENOUS BLOOD GAS BASE EXCESS 7.2 mmol/L (0.0-2.0); VENOUS BLOOD GAS PO2 33 mm/Hg (30-55); VENOUS BLOOD PH 7.44 (7.32-7.43)
[2018-06-11] MEDS ORDERED: Sodium Chloride 0.9% 500 ML IV STA (11:41)
[2018-06-11 11:47] LABS: BASO # 0.02 K/mm3 (0.0-2.0); BASO % 0.2 % (0.0-3.0); EOS % 0.2 % (1.5-5.0); HEMOGLOBIN 10.2 g/dL (14.0-18.0); LYMPH # 2.1 (1.2-3.4); LYMPH % 20.7 % (22.0-35.0); MEAN CORPUSCULAR HEMOGLOBIN 29.7 pg (25.0-35.0); MEAN CORPUSCULAR HGB CONC 30.3 g/dl (31.0-37.0); MONO # 0.8 (0.1-0.6); MONO % 8.1 % (1.0-6.0); RBC 3.44 10^6/uL (3.5-6.1); RED CELL DISTRIBUTION WIDTH 16.4 % (11.5-14.5); WHITE BLOOD COUNT 10.3 10^3/uL (4.5-11.0)
[2018-06-11 11:55] LABS: ALB/GLOB RATIO 1.1 (1.1-1.8); ALBUMIN 3.8 g/dL (3.0-4.8); CALCIUM 8.8 mg/dL (8.4-10.5)
[2018-06-11 11:58] LABS: INR 1.35; PARTIAL THROMBOPLASTIN TIME 41.7 Seconds (26.9-38.3); PROTHROMBIN TIME 15.3 SECONDS (9.4-12.5)
[2018-06-11 12:12] LABS: TROPONIN I 4.17 ng/mL
--- NOTE | 2018-06-11 12:42 | RAD ---
Date of service: 06/11/2018 HISTORY: Sepsis Patient COMPARISON: 05/04/2018 FINDINGS: LUNGS: No active pulmonary disease. PLEURA: No significant pleural effusion identified, no pneumothorax apparent. CARDIOVASCULAR: There is atherosclerotic calcification of thoracic aorta Normal cardiac size. No congestive change. Permanent pacemaker. OSSEOUS STRUCTURES: No significant abnormalities. VISUALIZED UPPER ABDOMEN: Normal. OTHER FINDINGS: None. IMPRESSION: No active disease.
--- NOTE | 2018-06-11 13:14 | CT ---
Date of service: 06/11/2018 PROCEDURE: CT HEAD WITHOUT CONTRAST. HISTORY: ams COMPARISON: 05/04/2018 TECHNIQUE: Axial computed tomography images were obtained through the head/brain without intravenous contrast. Radiation dose: Total exam DLP = 995.34 mGy-cm. This CT exam was performed using one or more of the following dose reduction techniques: Automated exposure control, adjustment of the mA and/or kV according to patient size, and/or use of iterative reconstruction technique. FINDINGS: HEMORRHAGE: No intracranial hemorrhage. BRAIN: No mass effect or edema. Chronic microvascular changes in the periventricular white matter and basal ganglia. Moderate atrophy VENTRICLES: Unremarkable. No hydrocephalus. CALVARIUM: Unremarkable. PARANASAL SINUSES: Unremarkable as visualized. No significant inflammatory changes. MASTOID AIR CELLS: Unremarkable as visualized. No inflammatory changes. OTHER FINDINGS: None. IMPRESSION: No acute intracranial findings
[2018-06-11] MEDS ORDERED: Pantoprazole 40 mg EC Tab PO SCH (13:30)
--- NOTE | 2018-06-11 14:53 | CP.PCM.CON ---
History of Present Illness - History of Present Illness History of Present Illness: ICU EVAL: Indication: hypotension This is an 78M with CKD on HD MWF, hypertension, hyperlipidemia, advanced dementia, pacemaker, TIA, CHF, and COPD brought in by his for increased somnolence. He has been lethargic all morning. He has had these episodes before usually associated with post-HD hypontension. No reported fevers, n/v or chest pain. PMH as above allx NKDA fam hx HTN social hx unable to obtain Meds as per MAR Past Patient History - Infectious Disease Hx of Infectious Diseases: None - Past Medical History & Family History Past Medical History?: Yes - Past Social History Smoking Status: Former Smoker - CARDIAC Hx Cardia Arrhythmia: Yes Hx Congestive Heart Failure: Yes Hx Hypertension: Yes (and hypotension) Other/Comment: 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 - PULMONARY Hx Respiratory Disorders: Yes (respiratory distress) Hx Pneumonia: Yes - NEUROLOGICAL Hx Neurological Disorder: No - HEENT Hx HEENT Problems: Yes (eyeglasses) - RENAL Hx Chronic Kidney Disease: Yes (esrd) Hx Dialysis: Yes ([facility]) Date of Last Dialysis Treatment: 02/08/18 - ENDOCRINE/METABOLIC Hx Endocrine Disorders: Yes (hypoparathyroidism) - HEMATOLOGICAL/ONCOLOGICAL Hx Blood Disorders: Yes (sepsis) Hx Anemia: Yes (blood transfusion) - INTEGUMENTARY Hx Dermatological Problems: Yes Other/Comment: diabetic foot ulcers multiple left foot, amputation and debridement of necrotic tissue 02/01/18, left 5th toe sutures intact, left foot al 4 toes have dry wounds anterior toes,and thick dry toenails dry flakey skin, skin discolorations both arms, small 0.3cm round scab rle, lle below knee old scar for "when I was a teenager." swelling and pain left foot with geoffrey dressing to foot - MUSCULOSKELETAL/RHEUMATOLOGICAL Hx Back Pain: Yes Hx Herniated Disk: Yes (lumbar spine) Hx Unsteady Gait: Yes (walker) - GASTROINTESTINAL Hx Gastrointestinal Disorders: Yes (obese) - GENITOURINARY/GYNECOLOGICAL Hx Genitourinary Disorders: Yes (oliguria) - PSYCHIATRIC Hx Psychophysiologic Disorder: No Hx Substance Use: No - SURGICAL HISTORY Hx Amputation: Yes (left ft 5th toe 02/01/18) Other/Comment: sriram av shunt - ANESTHESIA Hx Anesthesia Reactions: No Hx Malignant Hyperthermia: No Meds Allergies/Adverse Reactions: Allergies Allergy/AdvReac Type Severity Reaction Status Date / Time No Known Allergies Allergy Verified 06/11/18 10:32 - Medications Medications: Current Medications Acetaminophen (Tylenol 325mg Tab) 650 mg PO Q6 PRN PRN Reason: TEMP>=99.5F Acetaminophen (Tylenol 650 Mg Supp) 650 mg RC Q6H PRN PRN Reason: TEMP>=99.5F Aspirin (Aspirin) 325 mg PO DAILY [facility] Atorvastatin Calcium (Lipitor) 40 mg PO HS [facility] Calcium Acetate (Phoslo) 667 mg PO TID [facility] Carvedilol (Coreg) 12.5 mg PO BID JERE Docusate Sodium (Colace) 100 mg PO TID [facility] Donepezil HCl (Aricept) 10 mg PO HS JERE Gabapentin (Neurontin) 100 mg PO HS JERE; Protocol Insulin Human Lispro (Humalog Med) 0 units SC AC JERE; Protocol Levalbuterol HCl (Xopenex) 0.63 mg IH [id number] [facility] Lidocaine (Lidoderm) 1 ea TD DAILY [facility] Memantine (Namenda) 10 mg PO BID [facility] Midodrine (Proamatine) 2.5 mg PO BID [facility] Non-Formulary Medication (Insulin Glargine,Hum.Rec.Anlog [Toujeo Max Solostar]) 10 unit SQ HS [facility] [id number] Ethyl Esters (Lovaza) 1 gm PO BID [facility] Ondansetron HCl (Zofran Inj) 4 mg IVP Q4H PRN PRN Reason: Nausea/Vomiting Pantoprazole Sodium (Protonix Ec Tab) 40 mg PO 0600 [facility] Quetiapine Fumarate (Seroquel) 25 mg PO HS PRN; Protocol PRN Reason: agitation/aggression Tamsulosin HCl (Flomax) 0.4 mg PO DAILY [facility] Physical Exam - Constitutional Appears: Confused, Chronically Ill - Head Exam Head Exam: ATRAUMATIC, NORMAL INSPECTION, NORMOCEPHALIC - Respiratory Exam Respiratory Exam: Clear to Auscultation Bilateral. absent: Accessory Muscle Use, Chest Wall Tenderness, Respiratory Distress, Stridor - Cardiovascular Exam Cardiovascular Exam: REGULAR RHYTHM, JVD, +S1, +S2 - GI/Abdominal Exam GI & Abdominal Exam: Normal Bowel Sounds, Soft. absent: Tenderness Results - Vital Signs Recent Vital Signs: Last Vital Signs Temp 99 F 06/11/18 12:00 Pulse 75 06/11/18 13:15 Resp 20 06/11/18 13:15 BP 122/48 L 06/11/18 13:15 Pulse Ox 98 06/11/18 13:15 - Labs Result Diagrams: 06/11/18 11:30 06/11/18 11:30 Labs: Laboratory Results - last 24 hr 06/11/18 06/11/18 06/11/18 10:25 10:41 11:30 WBC 10.3 D RBC 3.44 L Hgb 10.2 L Hct 33.7 L MCV 98.0 MCH 29.7 MCHC 30.3 L RDW 16.4 H Plt Count 155 MPV 11.0 Neut % (Auto) 70.8 H Lymph % (Auto) 20.7 L [place] % (Auto) 8.1 H Eos % (Auto) 0.2 L Baso % (Auto) 0.2 Lymph # (Auto) 2.1 [place] # (Auto) 0.8 H Eos # (Auto) 0.0 Baso # (Auto) 0.02 Absolute Neuts (auto) 7.26 H PT INR APTT pO2 33 VBG pH 7.44 H VBG pCO2 48.0 VBG HCO3 32.6 H VBG Total CO2 34.1 H VBG O2 Sat (Calc) 66.6 H VBG Base Excess 7.2 H VBG Potassium 4.1 Sodium 142.0 Chloride 103.0 Glucose 260 H Lactate 1.9 FiO2 21.0 Potassium Carbon Dioxide Anion Gap BUN Creatinine Est GFR ( Amer) Est GFR (Non-Af Amer) POC Glucose (mg/dL) 264 H Random Glucose Calcium Phosphorus Magnesium Total Bilirubin AST ALT Alkaline Phosphatase Troponin I NT-Pro-B Natriuret Pep Total Protein Albumin Globulin Albumin/Globulin Ratio Venous Blood Potassium 4.1 06/11/18 06/11/18 11:30 11:30 WBC RBC Hgb Hct MCV MCH MCHC RDW Plt Count MPV Neut % (Auto) Lymph % (Auto) [place] % (Auto) Eos % (Auto) Baso % (Auto) Lymph # (Auto) [place] # (Auto) Eos # (Auto) Baso # (Auto) Absolute Neuts (auto) PT 15.3 H INR 1.35 APTT 41.7 H pO2 VBG pH VBG pCO2 VBG HCO3 VBG Total CO2 VBG O2 Sat (Calc) VBG Base Excess VBG Potassium Sodium 142 Chloride 100 Glucose Lactate FiO2 Potassium 4.2 Carbon Dioxide 30 Anion Gap 17 BUN 57 H Creatinine 5.9 H Est GFR ( Amer) 11 Est GFR (Non-Af Amer) 9 POC Glucose (mg/dL) Random Glucose 241 H Calcium 8.8 Phosphorus 4.5 Magnesium 1.9 Total Bilirubin 0.6 AST 23 ALT 9 Alkaline Phosphatase 73 Troponin I 4.17 H* D NT-Pro-B Natriuret Pep 808941 H Total Protein 7.0 Albumin 3.8 Globulin 3.3 Albumin/Globulin Ratio 1.1 Venous Blood Potassium Assessment & Plan - Assessment and Plan (Free Text) Assessment: 78M ESRD on HD MWF, HTN TIA CHF COPD brought in with hypontension resolved with fluids. BP stabilized after 500cc bolus. I suspect he was volume depleted from his HD yesterday. His low BP could explain his elevated TNI. No chest pain at the moment and ST elevations on EKG. VBG shows alklemia, doubt he is retaining CO2 thus he is able to maintain his own airway At this time patient has responded to gentle IVF resusciation and does not need ICU level care I would also recommend: - f/u TNI and cardiac eval - brink-culture - palliative care eval - speech and swallow eval - ABG if patient becomes more somnolent Dispo: Recommend Tele Wilton Deluca MD ICU Attending
[2018-06-11] MEDS: Lidocaine 5% Patch TD SCH (15:06)
[2018-06-11 15:56] LABS: CK MB% 1.3 % (2.5-3.0); TROPONIN I 3.8 ng/mL
--- NOTE | 2018-06-11 16:35 | CP.PCM.HP ---
History of Present Illness - History of Present Illness History of Present Illness: H&P for Dr. Whitman's medical service Daniel Navarro PGY2 Chief complaint: Weakness and hypotension HPI: Patient is an 78 M with a past medical history of CKD on HD Sunday, hypertension, hyperlipidemia, advanced dementia, pacemaker, TIA, CHF, and COPD who presents 1 day after dialysis with complaints of weakness, confusion, and hypotension as per . History is limited to what endorsed due to patient being asleep and not willing to wake up to talk at the time. As per patient at times experiences hypotension and weakness after his dialysis session if too much fluid is removed. of patient states that after patient returned from his usual dialysis session he was feeling fine and was behaving as his normal self however the next morning, she noticed he was irritable and not in the best mood, as well as confused. When she checked his blood pressure it was noted to be 80s/40s which is what prompted patient's to call the ambulance. ROS limited due to patient's condition however patient states while half asleep that he feels "good." Social hx: former smoker, denies alcohol or drug abuse Family hx: DM and hypertension Surgical hx: left 5th toe amputation Allergies: NKDA Present on Admission - Present on Admission Any Indicators Present on Admission: No Review of Systems - Review of Systems Systems not reviewed;Unavailable: Uncooperative Past Patient History - Infectious Disease Hx of Infectious Diseases: None - Past Medical History & Family History Past Medical History?: Yes - Past Social History Smoking Status: Former Smoker - CARDIAC Hx Cardia Arrhythmia: Yes Hx Congestive Heart Failure: Yes Hx Hypertension: Yes (and hypotension) Other/Comment: 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 - PULMONARY Hx Respiratory Disorders: Yes (respiratory distress) Hx Pneumonia: Yes - NEUROLOGICAL Hx Neurological Disorder: No - HEENT Hx HEENT Problems: Yes (eyeglasses) - RENAL Hx Chronic Kidney Disease: Yes (esrd) Hx Dialysis: Yes ([facility] ) Date of Last Dialysis Treatment: 02/08/18 - ENDOCRINE/METABOLIC Hx Endocrine Disorders: Yes (hypoparathyroidism) - HEMATOLOGICAL/ONCOLOGICAL Hx Blood Disorders: Yes (sepsis) Hx Anemia: Yes (blood transfusion) - INTEGUMENTARY Hx Dermatological Problems: Yes Other/Comment: diabetic foot ulcers multiple left foot, amputation and debri davon of necrotic tissue 02/01/18, left 5th toe sutures intact, left foot al 4 toes have dry wounds anterior toes,and thick dry toenails dry flakey skin, skin discolorations both arms, small 0.3cm round scab rle, lle below knee old scar for "when I was a teenager." swelling and pain left foot with geoffrey dressing to foot - MUSCULOSKELETAL/RHEUMATOLOGICAL Hx Back Pain: Yes Hx Herniated Disk: Yes (lumbar spine) Hx Unsteady Gait: Yes (walker) - GASTROINTESTINAL Hx Gastrointestinal Disorders: Yes (obese) - GENITOURINARY/GYNECOLOGICAL Hx Genitourinary Disorders: Yes (oliguria) - PSYCHIATRIC Hx Psychophysiologic Disorder: No Hx Substance Use: No - SURGICAL HISTORY Hx Amputation: Yes (left ft 5th toe 02/01/18) Other/Comment: sriram av shunt - ANESTHESIA Hx Anesthesia Reactions: No Hx Malignant Hyperthermia: No Meds Allergies/Adverse Reactions: Allergies Allergy/AdvReac Type Severity Reaction Status Date / Time No Known Allergies Allergy Verified 06/11/18 10:32 Physical Exam - Constitutional Appears: Non-toxic, No Acute Distress - Head Exam Head Exam: ATRAUMATIC, NORMAL INSPECTION, NORMOCEPHALIC - Eye Exam Eye Exam: EOMI - ENT Exam ENT Exam: Mucous Membranes Moist - Neck Exam Neck exam: Positive for: Normal Inspection - Respiratory Exam Respiratory Exam: Clear to Auscultation Bilateral, NORMAL BREATHING PATTERN - Cardiovascular Exam Cardiovascular Exam: REGULAR RHYTHM, +S1, +S2 - GI/Abdominal Exam GI & Abdominal Exam: Normal Bowel Sounds, Soft - Extremities Exam Extremities exam: Positive for: normal inspection - Skin Skin Exam: Normal Color, Warm Results - Vital Signs Recent Vital Signs: Last Vital Signs Temp 99 F 06/11/18 12:00 Pulse 58 L 06/11/18 15:08 Resp 20 06/11/18 15:08 BP 110/43 L 06/11/18 15:08 Pulse Ox 96 06/11/18 15:08 - Labs Result Diagrams: 06/12/18 08:30 06/12/18 08:30 Labs: Laboratory Results - last 24 hr 06/11/18 06/11/18 06/11/18 10:25 10:41 11:30 WBC 10.3 D RBC 3.44 L Hgb 10.2 L Hct 33.7 L MCV 98.0 MCH 29.7 MCHC 30.3 L RDW 16.4 H Plt Count 155 MPV 11.0 Neut % (Auto) 70.8 H Lymph % (Auto) 20.7 L [place] % (Auto) 8.1 H Eos % (Auto) 0.2 L Baso % (Auto) 0.2 Lymph # (Auto) 2.1 [place] # (Auto) 0.8 H Eos # (Auto) 0.0 Baso # (Auto) 0.02 Absolute Neuts (auto) 7.26 H PT INR APTT pO2 33 VBG pH 7.44 H VBG pCO2 48.0 VBG HCO3 32.6 H VBG Total CO2 34.1 H VBG O2 Sat (Calc) 66.6 H VBG Base Excess 7.2 H VBG Potassium 4.1 Sodium 142.0 Chloride 103.0 Glucose 260 H Lactate 1.9 FiO2 21.0 Potassium Carbon Dioxide Anion Gap BUN Creatinine Est GFR ( Amer) Est GFR (Non-Af Amer) POC Glucose (mg/dL) 264 H Random Glucose Calcium Phosphorus Magnesium Total Bilirubin AST ALT Alkaline Phosphatase Total Creatine Kinase CK-MB (CK-2) CK-MB (CK-2) % Troponin I NT-Pro-B Natriuret Pep Total Protein Albumin Globulin Albumin/Globulin Ratio Venous Blood Potassium 4.1 06/11/18 06/11/18 06/11/18 11:30 11:30 15:00 WBC RBC Hgb Hct MCV MCH MCHC RDW Plt Count MPV Neut % (Auto) Lymph % (Auto) [place] % (Auto) Eos % (Auto) Baso % (Auto) Lymph # (Auto) [place] # (Auto) Eos # (Auto) Baso # (Auto) Absolute Neuts (auto) PT 15.3 H INR 1.35 APTT 41.7 H pO2 VBG pH VBG pCO2 VBG HCO3 VBG Total CO2 VBG O2 Sat (Calc) VBG Base Excess VBG Potassium Sodium 142 Chloride 100 Glucose Lactate FiO2 Potassium 4.2 Carbon Dioxide 30 Anion Gap 17 BUN 57 H Creatinine 5.9 H Est GFR ( Amer) 11 Est GFR (Non-Af Amer) 9 POC Glucose (mg/dL) Random Glucose 241 H Calcium 8.8 Phosphorus 4.5 Magnesium 1.9 Total Bilirubin 0.6 AST 23 ALT 9 Alkaline Phosphatase 73 Total Creatine Kinase 461 H CK-MB (CK-2) 6.0 H CK-MB (CK-2) % 1.3 L Troponin I 4.17 H* D 3.80 H* NT-Pro-B Natriuret Pep 418676 H Total Protein 7.0 Albumin 3.8 Globulin 3.3 Albumin/Globulin Ratio 1.1 Venous Blood Potassium Assessment & Plan - Assessment and Plan (Free Text) Plan: Elevated troponins -NSTEMI vs. hypotension vs. ESRD -Serial troponin -Serial EKGs -Lipid panel, TSH, hgA1c -Aspirin, lipitor, B-june DM -Insulin glargline -ISS ESRD -Nephrology consulted -on HD Sunday, Hypertension -Hold antihypertensive medications Hyperlipidemia -Continue lipitor Advanced dementia -Continue aricept CHF -Gentle fluid resuscitation -Continue coreg COPD -Xopenex JERE and PRN
--- NOTE | 2018-06-11 18:42 | CON ---
DATE: 06/11/2018 NEUROLOGY CONSULTATION CHIEF COMPLAINT: Altered mental status. HISTORY OF PRESENT ILLNESS: This is an 78-year-old man with history of chronic kidney disease on hemodialysis Sunday, Sunday, and Sunday, hypertension, hyperlipidemia, advanced cognitive impairment, pacemaker, TIA, seizure, COPD who was brought by after . He was lethargic all morning. This episode was before and usually associated with post hemodialysis. He has low systolic and diastolic blood pressures with 89/36 which is low. He was given fluid hydration. Follows simple commands . CAT scan of the head shows no acute intracranial abnormalities, generalized atrophy. Moving all extremities equally. PAST MEDICAL HISTORY: As above. ALLERGIES: NO KNOW DRUG ALLERGIES. SOCIAL HISTORY: No illicit drug use, smoking or EtOH. FAMILY HISTORY: Noncontributory. REVIEW OF SYSTEMS: A 14-review of system is negative except as per HPI. LABORATORY DATA: Sodium is 140, potassium 4.2, chloride 100, carbon dioxide 30, BUN 50, creatinine 5.0, random glucose is 141. PHYSICAL EXAMINATION GENERAL: Patient is sitting up in bed, lethargic. VITAL SIGNS: Temperature 99, pulse 86, blood pressure 100/60, respiratory rate 20, and oxygen saturation 97% by room air. HEENT: Atraumatic, normocephalic. PERRLA. Extraocular muscles intact. NECK: Supple. No JVD. No adenopathy. LUNGS: Clear to auscultation. No adventitious sounds. HEART: S1 and S2, normal rhythm. No murmurs, rubs, or gallops. ABDOMEN: Soft and nontender. Bowel sounds present. EXTREMITIES: No clubbing. No cyanosis. Peripheral pulses 2+ felt bilaterally. NEUROLOGIC: Patient is lethargic. Follows simple commands . Cranial nerves II through XII are intact. Motor exam, moves all extremities equally. Very cachectic looking, deconditioned. No pronator drift seen. Sensory exam, light touch and pinprick is intact. Deep tendon reflexes are 2+ throughout his knees and ankles. Coordination, gait deferred for now. IMPRESSION AND PLAN: Altered mental status secondary to transient cerebral hypoperfusion. This is a an 78-year-old man with history of end-stage renal disease on hemodialysis Sunday, Sunday, and Sunday, hypertension, transient ischemic attack, seizure, chronic obstructive pulmonary disease, hypotension resolved with fluids. He still has low systolic and diastolic blood pressure, altered mental status, secondary to transient cerebral hypoperfusion to the brain along with underlying mild dehydration and also with metabolic encephalopathy component. At this time, we recommend: 1. Adequate fluid hydration. 2. Nephrology consult to prevent increased amount of fluid, on hemodialysis. 3. Compression stockings. 4. PT/OT evaluation. Oscar Aggarwal MD
[2018-06-11] MEDS: Insulin Lispro (humaLOG) MEDIUM Coverage SC SCH (18:45)
[2018-06-11] MEDS: Omega-3-Acid Ethyl Esters 1 GM Cap PO SCH (18:56)
[2018-06-11] MEDS: Levalbuterol 1.25 MG/3 ML Inhal Soln UD IH SCH (19:18)
--- NOTE | 2018-06-11 20:19 | CARD ---
APPROVED REPORT Date of service: 06/11/2018 EKG Measurement Heart [id number] <Conclusion> Ventricular paced rhythm
[2018-06-11] MEDS: INSULIN GLARGINE HUM REC ANLOG 10 UNIT SQ SCH (22:21)
[2018-06-11 22:55] LABS: CK MB% 1.5 % (2.5-3.0); CK-MB 5.1 ng/mL (0.0-3.6); TROPONIN I 2.73 ng/mL
[2018-06-12] MEDS: Levalbuterol 1.25 MG/3 ML Inhal Soln UD IH SCH ×4 (01:10→19:22)
[2018-06-12] MEDS: Pantoprazole 40 mg EC Tab PO SCH (06:12)
[2018-06-12] MEDS: Insulin Lispro (humaLOG) MEDIUM Coverage SC SCH ×3 (08:30→18:29)
[2018-06-12 08:55] LABS: BASO # 0.02 K/mm3 (0.0-2.0); BASO % 0.2 % (0.0-3.0); EOS # 0.1 (0.0-0.7); EOS % 1.4 % (1.5-5.0); HEMOGLOBIN 9.8 g/dL (14.0-18.0); LYMPH # 2.8 (1.2-3.4); LYMPH % 33.3 % (22.0-35.0); MEAN CELL VOLUME 98.2 fl (80.0-105.0); MEAN CORPUSCULAR HEMOGLOBIN 29.3 pg (25.0-35.0); MEAN CORPUSCULAR HGB CONC 29.8 g/dl (31.0-37.0); MEAN PLATELET VOLUME 11.3 fl (7.0-11.0); MONO # 0.5 (0.1-0.6); MONO % 6.2 % (1.0-6.0); RBC 3.35 10^6/uL (3.5-6.1); RED CELL DISTRIBUTION WIDTH 16.4 % (11.5-14.5); WHITE BLOOD COUNT 8.3 10^3/uL (4.5-11.0)
[2018-06-12 08:57] LABS: ALB/GLOB RATIO 1.1 (1.1-1.8); ALBUMIN 3.5 g/dL (3.0-4.8); BILIRUBIN,DIRECT 0.4 mg/dL (0.0-0.4); CALCIUM 8.8 mg/dL (8.4-10.5); URIC ACID 6.7 mg/dL (3.5-8.5)
[2018-06-12 09:34] LABS: FREE T4 1.37 ng/dL (0.78-2.19)
--- NOTE | 2018-06-12 10:07 | CARD ---
APPROVED REPORT Date of service: 06/12/2018 EKG Measurement Heart [id number] <Conclusion> Ventricular paced rhythm
[2018-06-12] MEDS: Lidocaine 5% Patch TD SCH ×3 (10:20→16:55)
[2018-06-12] MEDS ORDERED: Iron Sucrose 100 mg/5 ml Inj IVP ONE (13:25)
[2018-06-12 14:24] LABS: FOLATE 13.4 ng/mL
--- NOTE | 2018-06-12 14:58 | PN ---
DATE: 06/12/2018 SUBJECTIVE: The patient is in room 263, bed 1. Overnight nurse's notes were reviewed. The patient was found to be episodically confused and disoriented. OBJECTIVE OVERNIGHT VITAL SIGNS: T-max 98.3. Telemetry shows paced rhythm to sinus rhythm, heart rate 62 to 74; blood pressure 123/39, 109/62; respiration 19, O2 sat 95%-96%. HEENT: Head is normocephalic, atraumatic. Eyes; examination shows pinkish pale conjunctivae. Anicteric sclerae. No oropharyngeal lesion. NECK: No neck rigidity. CHEST: Shows positive left upper chest pacemaker. Positive kyphosis. Questionable decreased breath sound bilaterally. No audible crackle, rales or wheezing. CARDIOVASCULAR: S1, S2, regular rhythm. Questionable soft systolic murmur left sternal border, right second intercostal space, left second intercostal space. ABDOMEN: Protuberant. Positive bowel sound. No palpable appreciable hepatosplenomegaly. GENITALIA: Male. RECTAL: Deferred. EXTREMITIES: Shows trace swelling of the lower extremity. Positive left upper extremity AV fistula noted. Positive thrill noted. MUSCULOSKELETAL: Shows an elevated body mass index. NEUROLOGIC: The patient is alert, awake, responsive. Gait examination is not tested. DIAGNOSTICS DATA: Morning CBC, CMP, LFTs, lipid panel, hemoglobin A1c, thyroid panel, B12, folate, RPR, all pending at this time, the patient's troponin peaked up to greater than 4. The patient's diagnostic labs from today pending. The patient seen by neurology, Dr. Aggarwal, recommendations reviewed. diabetic. IMPRESSION AND PLAN: 1. Hypotension probably secondary the to hemodialysis related hypovolemia, hypotension. 2. Possible cerebral hypoperfusion. 3. Acute cef-HX-cewwxqluy myocardial function with elevated troponin. 4. End-stage renal disease, hemodialysis dependent. 5. Anemia of chronic kidney disease. 6. Insulin-requiring diabetes mellitus. 7. History of hypotension. 8. Permanent pacemaker implant. 9. History of behavioral disorder. 11. Diabetic foot ulceration and diabetic foot disease. 12. Hypovolemia. 13. Anemia. 14. Encephalopathy. 15. History of dementia. 16. Gait dysfunction. 17. Deconditioning. PLAN: At this time. The patient's morning labs are still pending, which will be reviewed. The patient's EKGs ordered which will be reviewed. Current consultation Cardiology, Neurology and Nephrology... Case discussed with Cardiology. Cardiology to discuss with the family about possible cardiac catheterization and further cardiac intervention in collaboration with Nephrology with the timing of dialysis. The patient was seen by neurology recommendations reviewed. The patient will be continued. MEDICATIONS The patient will be continued on medications as per the MAR of today. The patient is on Coreg. The patient is on aspirin. The patient is on beta-blockers, statins. The patient's The patient's further management will be dependent upon the patient's clinical condition, hemodynamic status as per the patient response to therapeutic intervention as per the patient's diagnostic test results and as per recommendation by all the physician involved in the care of the patient. Dictated and electronically signed, not read. Oleg Whitman MD
--- NOTE | 2018-06-12 15:16 | CON ---
DATE OF CONSULTATION: 06/12/2018 REASON FOR CONSULTATION: Need for dialysis, altered mental status. HISTORY OF PRESENTING ILLNESS: An 78-year-old male, known to me from outpatient hemodialysis. The patient was brought to the emergency room yesterday because of altered mental status, lethargy, confusion. The patient had stable dialysis on Sunday. He went home. Subsequently noted him to be very lethargic. Hence, he was brought to the emergency room the following day. He was found to be hypotensive at home. His pressure was 80/40. No history of any fever, no chills. There is no history of any dizziness or lightheadedness. No shortness of breath. In the emergency room, he was found to be hypotensive, pressure was 89/36, heart rate was 67. He was afebrile. The patient was admitted because of confusion, weakness and hypotension. His initial blood work showed a WBC count of 10.3, hemoglobin of 10.2. Elevated troponin of 4.1. PAST MEDICAL/SURGICAL HISTORY: NIDDM, hypertension, hyperlipidemia, CHF, COPD, permanent pacemaker, advanced dementia, peripheral vascular disease, ESRD, anemia of chronic kidney disease. FAMILY HISTORY: Noncontributory. SOCIAL HISTORY: Ex-smoker, no alcohol use, no IV drug abuse. ALLERGIES: NO KNOWN DRUG ALLERGIES. MEDICATIONS AT HOME: Lipitor, insulin, Aricept, PhosLo, Namenda, Flomax, ProAmatine 2.5 b.i.d., Colace 100 t.i.d., Coreg 12.5 b.i.d.? REVIEW OF SYSTEMS: Not available as the patient is really not able to cooperate with systems review. PHYSICAL EXAMINATION: GENERAL: Morbidly obese, elderly male, seen in the dialysis unit. He is awake, he is alert. VITAL SIGNS: Blood pressure 123/39, heart rate 62, respiratory rate 20, temperature 98.3. HEENT: Normocephalic, atraumatic, positive pallor. NECK: Supple, no JVD. LUNGS: Bilateral equal entry, bilateral rhonchi, no rales. CARDIAC: S1 and S2, regular rate and rhythm, no murmur, no rub. ABDOMEN: Obese, distended, soft, nontender, bowel sounds present. EXTREMITIES: No lower extremity edema. INTAKE AND OUTPUT: Not charted. LABORATORY DATA: WBC 8.3, hemoglobin 9.8, hematocrit 33, platelets 152. Sodium 143, potassium 4.6, chloride 100, CO2 of 30, BUN 71, creatinine 7.6, glucose 84, calcium 8.8, phosphorus 6.3, magnesium 1.9. Troponin 2.7. CPK 336. ASSESSMENT: 1. Non-ST elevation myocardial infarction. 2. Hypotension. 3. Altered mental status/confusion. 4. Ljs-jehnzpi-zvtswabta diabetes mellitus. 5. Congestive heart failure, diastolic dysfunction. PLAN: 1. Cardiology evaluation with Dr. Whalen. 2. Monitor blood pressure closely. 3. Stable dialysis. 4. Will likely need cardiac cath? The patient had a cardiac cath in January. Yadira Fox MD
--- NOTE | 2018-06-12 15:23 | CON ---
DATE OF CONSULTATION: 06/12/2018 CARDIOLOGY CONSULTATION HISTORY: The patient is an 78-year-old male, who presents with diabetes mellitus, end-stage renal disease on hemodialysis, history of TIA, COPD, hypertension, and hyperlipidemia, who presents with generalized weakness. He was found to have an elevated troponin consistent with a non-STEMI. The patient denies chest pain, but is mildly confused. Social history and review of systems are not accurate. PHYSICAL EXAMINATION: VITAL SIGNS: Blood pressure is 123/39, heart rate is in the 60s. NECK: Negative JVD. LUNGS: Decreased breath sounds without rales. HEART: Reveal S1, S2. EXTREMITIES: Without edema. LABORATORY DATA: Laboratories reveal an EKG that has ventricular pace. Troponins peaked at 2.73 with a BUN and creatinine of 71 and 7.6, the hemoglobin is 9.8. IMPRESSION: 1. Non-ST elevation myocardial infarction 2. Coronary artery disease. 3. End-stage renal disease. 4. Diabetes mellitus. 5. Hypertension. 6. Hypercholesterolemia. 7. Dementia. 8. Mild confusion. PLAN: Given these findings, I did not feel the patient can give informed consent given his confusion. We will continue to treat his non-STEMI medically, which will include aspirin, beta-blockers, as well as anticoagulation. Yong Duran MD
[2018-06-12] MEDS: Omega-3-Acid Ethyl Esters 1 GM Cap PO SCH (17:12)
[2018-06-12] MEDS: Heparin25000 units/250ml 1/2NS 25,000 UNITS/250 ML BAG IV SCH (17:13)
[2018-06-12] MEDS: INSULIN GLARGINE HUM REC ANLOG 10 UNIT SQ SCH (23:33)
[2018-06-13] MEDS: Levalbuterol 1.25 MG/3 ML Inhal Soln UD IH SCH ×4 (01:02→20:13)
[2018-06-13] MEDS: Pantoprazole 40 mg EC Tab PO SCH (05:09)
[2018-06-13 07:29] LABS: BASO # 0.01 K/mm3 (0.0-2.0); BASO % 0.1 % (0.0-3.0); EOS # 0.2 (0.0-0.7); EOS % 2.3 % (1.5-5.0); HEMOGLOBIN 9.6 g/dL (14.0-18.0); MEAN CELL VOLUME 97.6 fl (80.0-105.0); MEAN CORPUSCULAR HEMOGLOBIN 29.1 pg (25.0-35.0); MEAN CORPUSCULAR HGB CONC 29.8 g/dl (31.0-37.0); MONO # 0.5 (0.1-0.6); MONO % 6.9 % (1.0-6.0); RBC 3.3 10^6/uL (3.5-6.1); RED CELL DISTRIBUTION WIDTH 16.2 % (11.5-14.5)
[2018-06-13] MEDS: Insulin Lispro (humaLOG) MEDIUM Coverage SC SCH ×3 (07:30→17:11)
[2018-06-13 07:47] LABS: ALB/GLOB RATIO 1.1 (1.1-1.8); ALBUMIN 3.6 g/dL (3.0-4.8); ALT/SGPT < 6 U/L (7-56); AST/SGOT 21 U/L (17-59); BILIRUBIN,DIRECT 0.5 mg/dL (0.0-0.4); BLOOD UREA NITROGEN 47 mg/dL (7-21); CALCIUM 8.4 mg/dL (8.4-10.5); GFR NON-AFRICAN AMERICAN 10
[2018-06-13] MEDS: Lidocaine 5% Patch TD SCH (09:27)
--- NOTE | 2018-06-13 10:06 | PN ---
DATE: 06/13/2018 SUBJECTIVE: The patient is seen sitting up in the bed in room 263, bed 1. The patient is alert, awake, responsive, does not appear to be in any distress.. Overnight nurse's notes were reviewed. No adverse events were documented. OBJECTIVE: VITAL SIGNS: T-max 97.7. Telemetry shows normal sinus rhythm, paced rhythm was noted. Blood pressure 103/49, , respiration 20, O2 sat 94%-96%. HEENT: Head examination normocephalic, atraumatic. HEENT examination shows pinkish pale conjunctivae. Anicteric sclerae. No oropharyngeal lesion. NECK: No neck rigidity. CHEST: Examination kyphosis. Positive left upper chest pacemaker noted. CARDIOVASCULAR: Shows S1 and S2, regular rhythm. Questionable soft systolic murmur left sternal border, right second intercostal space, left second intercostal space. ABDOMEN: Soft. Positive bowel sounds. Obese abdomen. GENITALIA: Male. RECTAL: Examination is deferred. EXTREMITIES: Shows positive SCDs. MUSCULOSKELETAL: Examination shows a body mass index of 32.3. NEUROLOGIC: The patient is alert, awake, responsive, is able to move upper and lower extremities without assistance. Gait examination not tested. DIAGNOSTICS From 06/13/2018, WBC 7.0, hemoglobin/hematocrit 9.6/32.2, platelet 150. PT/PTT 49.3. Sodium 139, potassium 4.4, chloride 98, CO2 of 30, anion gap 15, BUN 47, creatinine 5.7, GFR 12, glucose 109. Fructosamine is 341, calcium 8.4, phosphorus 4.9. LFTs are normal. Cholesterol level was noted. RPR is nonreactive. Microbiology, blood cultures are negative. IMPRESSION AND PLAN: 1. Acute non-ST elevation myocardial infarction with elevated troponin. 2. Coronary artery disease. 3. Uncontrolled diabetes mellitus with elevated fructosamine level. 4. Status post hypotension. 5. History of hypercholesteremia. 6. History of dementia. 7. Episodic encephalopathy and confusional state. 8.. Transient hypoxemia. 9. Gait dysfunction. 10. Morbid obesity. 11 Normocytic anemia. 12. Granulocytosis. 13. End-stage renal disease, hemodialysis dependent three times a week. 14. Bilateral lower extremity peripheral vascular disease. 15. Deconditioning. 16. Normocytic anemia. 17. Chronic microvascular ischemic disease of the brain and the basal ganglia and cerebral cortical atrophy of the brain. 18. Dementia. 19. Prostatic hypertrophy. 20. Diabetic neuropathy. 21. History of hypotension. PLAN: At this time, the patient was seen by Cardiology, recommendations noted, medical therapy advised. The patient has been ordered repeat labs. Current consultation Cardiology, Neurology and Nephrology. MEDICATIONS: Current medications Aricept 10 mg at bedtime, aspirin 325 mg p.o. daily, Colace 100 mg three times a day, Coreg 12.5 twice a day, Flomax 0.4 mg daily, the patient is presently on heparin drip as per Cardiology, Humalog medium dose sliding scale coverage with 10 units at bedtime, Lidoderm 5% patch to the affected area, Lipitor 40 mg daily, Lovaza 1 g twice a day, Namenda 10 mg twice a day, Neurontin 100 mg at bedtime, PhosLo 67 mg three times a day, midodrine 2.5 mg twice a day, Protonix 40 mg daily, Seroquel 25 mg at bedtime p.r.n., Tylenol 650 mg p.o. suppository every 6 hours p.r.n., the patient received a dose of IV Venofer 50 mg, the patient is on Xopenex nebulizer 0.63 every 6 hours, Zofran 4 mg IV every 4 hours p.r.n. The patient's Lovaza will be considered to be stopped. The patient's midodrine will be will be considered to be increased. Lovaza will be discontinued and midodrine will be increased. Midodrine will be increased to 2.5 mg three times a day, Lovaza will be discontinued. At present, the patient will be continued on the medical therapy for the non-ST elevation myocardial infarction. We will await further recommendations from Cardiology regarding further management. DISCHARGE DISPOSITION: The patient's has been updated by Cardiology about the patient's condition, diagnosis, treatment options and plan. Dictated and electronically signed, not read. Oleg Whitman MD
[2018-06-13 10:37] LABS: TROPONIN I 0.88 ng/mL
[2018-06-13] MEDS: Heparin25000 units/250ml 1/2NS 25,000 UNITS/250 ML BAG IV SCH ×2 (10:56→12:15)
--- NOTE | 2018-06-13 16:32 | PN ---
DATE: 06/13/2018 SUBJECTIVE: The patient appears comfortable in bed. He denies chest pain at this time. OBJECTIVE: VITAL SIGNS: Blood pressure 114/60, heart rate 72, temperature 97.3, respiration 20. HEENT: Pale conjunctivae. CHEST: Diminished breath sounds over the bases. HEART: S1, S2 regular. ABDOMEN: Soft. EXTREMITIES: 1+ pitting edema. LABORATORY DATA: Hemoglobin and hematocrit 9.6 and 32.2, white count and platelet count are within normal limits. Today's BUN and creatinine of 47 and 5.7 respectively. Troponin 0.88. Initial troponin was 4.17. ProBNP is 108,000. Echocardiograph study in January of last year revealed normal ejection fraction, mild mitral insufficiency and moderate pulmonary hypertension with grade 1 abnormal leg relaxation pattern. Head CT scan without contrast, no acute findings. Chest x-ray revealed bilateral alveolar infiltrate infectious/inflammatory versus CHF, a single lead ventricular pacemaker. EKG revealed ventricular paced rhythm, underlying rhythm is atrial fibrillation. ASSESSMENT: 1. Consider non-ST elevation myocardial infarction. 2. on hemodialysis. 3. Atrial fibrillation. 4. Mild anemia. 5. Diabetes mellitus and hypertension. RECOMMENDATIONS: Continue current aspirin 325 mg once a day, Coreg 12.5 mg twice a day, intravenous heparin and therapeutic regimen for atrial fibrillation. Continue Lipitor at 40 g once a day. PhosLo 1 tablet three times a day, Neurontin 100 mg daily, Seroquel 25 mg once a day, Xopenex inhaler every 6 hours p.r.n. and Zofran 4 mg intravenously every 4 hours p.r.n. Conservative medical approach. Alec Stanford MD
--- NOTE | 2018-06-13 18:54 | CARD ---
APPROVED REPORT Date of service: 06/13/2018 EKG Measurement Heart [id number] <Conclusion> Ventricular paced rhythm
--- NOTE | 2018-06-13 19:04 | PN ---
DATE: 06/13/2018 SUBJECTIVE: The patient is seen lying in bed. He is awake, he is alert, he is still somewhat confused. PHYSICAL EXAMINATION: GENERAL: Elderly male, lying in bed. VITAL SIGNS: Blood pressure 86/45, heart rate 64, respiratory rate 18, temperature 97.4. HEENT: Normocephalic, atraumatic, positive pallor. NECK: Supple, no JVD. LUNGS: Bilateral equal air entry, bilateral equal expansion, no rales. CARDIAC: S1, S2, regular rate and rhythm, no murmur, no rub. ABDOMEN: Obese, distended, soft, nontender, bowel sounds present. EXTREMITIES: Trace lower extremity edema. INTAKE AND OUTPUT: Not charted. LABORATORY DATA: WBC 7, hemoglobin 9.6, hematocrit 32, platelets 150. Sodium 139, potassium 4.4, chloride 98, CO2 30, BUN 47, creatinine 5.7, glucose 109, calcium 8.4, phosphorus 4.9, magnesium 1.9, troponin 0.88, albumin 3.6. Blood cultures no growth. CURRENT MEDICATIONS: Aricept, aspirin, Colace, Coreg 12.5 b.i.d., Flomax, Lipitor 40, Namenda 10 b.i.d., Neurontin, PhosLo, ProAmatine 2.528, Protonix, Seroquel, Tylenol, Xopenex, Zofran. ASSESSMENT: 1. Non-ST elevation myocardial infarction. 2. Profound hypotension. 3. Advanced dementia. 4. Altered mental status as confusion. 5. Non-insulin dependent diabetes mellitus. 6. Endstage renal disease. 7. Anemia of chronic kidney disease. PLAN: 1. Cardiology consult read, no plans for cardiac catheterization at this time because of altered mental status. 2. Increased ProAmatine to 5 t.i.d. 3. Continue IV heparin. 4. Unable to get beta-june because of hypotension. 5. Next dialysis treatment tomorrow. Yadira Fox MD
[2018-06-14] MEDS: INSULIN GLARGINE HUM REC ANLOG 10 UNIT SQ SCH ×2 (00:05→22:00)
[2018-06-14] MEDS: Levalbuterol 1.25 MG/3 ML Inhal Soln UD IH SCH ×4 (01:23→21:40)
[2018-06-14 04:36] LABS: BASO # 0.01 K/mm3 (0.0-2.0); BASO % 0.2 % (0.0-3.0); EOS # 0.2 (0.0-0.7); EOS % 2.3 % (1.5-5.0); HEMOGLOBIN 9.5 g/dL (14.0-18.0); LYMPH # 2.1 (1.2-3.4); LYMPH % 32.2 % (22.0-35.0); MEAN CELL VOLUME 97.5 fl (80.0-105.0); MEAN CORPUSCULAR HEMOGLOBIN 29.5 pg (25.0-35.0); MEAN CORPUSCULAR HGB CONC 30.3 g/dl (31.0-37.0); MEAN PLATELET VOLUME 10.3 fl (7.0-11.0); MONO # 0.5 (0.1-0.6); RBC 3.22 10^6/uL (3.5-6.1); WHITE BLOOD COUNT 6.4 10^3/uL (4.5-11.0)
[2018-06-14] MEDS: Heparin25000 units/250ml 1/2NS 25,000 UNITS/250 ML BAG IV SCH ×3 (04:48→22:52)
[2018-06-14] MEDS: Pantoprazole 40 mg EC Tab PO SCH (05:03)
[2018-06-14 05:35] LABS: ALBUMIN 3.5 g/dL (3.0-4.8); BILIRUBIN,DIRECT 0.5 mg/dL (0.0-0.4); CALCIUM 8.5 mg/dL (8.4-10.5); TROPONIN I 0.59 ng/mL
[2018-06-14] MEDS: Insulin Lispro (humaLOG) MEDIUM Coverage SC SCH ×3 (08:19→17:11)
--- NOTE | 2018-06-14 08:30 | CP.PCM.PN ---
Subjective - Date & Time of Evaluation Date of Evaluation: 06/14/18 Time of Evaluation: 07:45 - Subjective Subjective: (covering for Dr. Whitman) Patient is seen this morning. He is eating breakfast. He is confused, but denies chest pain. Objective - Vital Signs/Intake and Output Vital Signs (last 24 hours): Temp Pulse Resp BP Pulse Ox 97.8 F 64 20 138/59 L 98 06/14/18 06:00 06/14/18 06:00 06/14/18 06:00 06/14/18 06:00 06/14/18 06:00 Intake and Output: 06/14/18 06/14/18 06:59 18:59 Intake Total 1000 Output Total 2 Balance 998 - Medications Medications: Current Medications Acetaminophen (Tylenol 650 Mg Supp) 650 mg RC Q6H PRN PRN Reason: TEMP>=99.5F Acetaminophen (Tylenol 325mg Tab) 650 mg PO Q6 PRN PRN Reason: TEMP>=99.5F Last Admin: 06/12/18 16:56 Dose: 650 mg Aspirin (Aspirin) 325 mg PO DAILY [facility] Last Admin: 06/13/18 09:27 Dose: 325 mg Atorvastatin Calcium (Lipitor) 40 mg PO [facility] Last Admin: 06/13/18 21:36 Dose: 40 mg Calcium Acetate (Phoslo) 667 mg PO TID [facility] Last Admin: 06/13/18 17:09 Dose: 667 mg Carvedilol (Coreg) 12.5 mg PO BID [facility] Last Admin: 06/13/18 18:00 Dose: Not Given Docusate Sodium (Colace) 100 mg PO TID [facility] Last Admin: 06/13/18 17:10 Dose: 100 mg Donepezil HCl (Aricept) 10 mg PO [facility] Last Admin: 06/13/18 21:36 Dose: 10 mg Gabapentin (Neurontin) 100 mg PO [facility]; Protocol Last Admin: 06/13/18 21:36 Dose: 100 mg Heparin Sodium/Sodium Chloride (Heparin 52449 Units/250ml 1/2 Normal Saline) 25,000 units in 250 mls @ 11.235 mls/hr IV .[id number] [facility]; Protocol Last Admin: 06/14/18 04:48 Dose: 16 units/kg/hr, 14.979 mls/hr Insulin Human Lispro (Humalog Med) 0 units SC AC [facility]; Protocol Last Admin: 06/14/18 08:19 Dose: Not Given Levalbuterol HCl (Xopenex) 0.63 mg IH [id number] [facility] Last Admin: 06/14/18 08:08 Dose: 0.63 mg Lidocaine (Lidoderm) 1 ea TD DAILY [facility] Last Admin: 06/13/18 09:27 Dose: 1 ea Memantine (Namenda) 10 mg PO BID [facility] Last Admin: 06/13/18 17:12 Dose: 10 mg Midodrine (Proamatine) 5 mg PO Q8H [facility] Last Admin: 06/14/18 05:04 Dose: 5 mg Non-Formulary Medication (Insulin Glargine,Hum.Rec.Anlog [Tougarciao Bharat Solostar]) 10 unit SQ HS [facility] Last Admin: 06/14/18 00:05 Dose: Not Given Ondansetron HCl (Zofran Inj) 4 mg IVP Q4H PRN PRN Reason: Nausea/Vomiting Pantoprazole Sodium (Protonix Ec Tab) 40 mg PO 0600 [facility] Last Admin: 06/14/18 05:03 Dose: 40 mg Quetiapine Fumarate (Seroquel) 25 mg PO HS PRN; Protocol PRN Reason: agitation/aggression Last Admin: 06/13/18 21:36 Dose: 25 mg Tamsulosin HCl (Flomax) 0.4 mg PO DAILY [facility] Last Admin: 06/13/18 10:53 Dose: Not Given - Labs Labs: 06/14/18 04:10 06/14/18 04:10 PT 15.3 SECONDS (9.4-12.5) H 06/11/18 11:30 INR 1.35 06/11/18 11:30 APTT 59.6 Seconds (26.9-38.3) H 06/14/18 06:15 - Constitutional Appears: No Acute Distress - Head Exam Head Exam: ATRAUMATIC, NORMOCEPHALIC - Respiratory Exam Respiratory Exam: Decreased Breath Sounds, NORMAL BREATHING PATTERN - Cardiovascular Exam Cardiovascular Exam: +S1, +S2 - GI/Abdominal Exam GI & Abdominal Exam: Soft, Normal Bowel Sounds. 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
[2018-06-14] MEDS: Lidocaine 5% Patch TD SCH ×2 (08:31→11:10)
[2018-06-14 13:37] LABS: GLYCOMARK(R) 1.8 mcg/mL (7.3-36.6)
--- NOTE | 2018-06-14 18:16 | CP.PCM.PCO ---
Assessment/Plan Progress Note - Assessment/Plan Assessment (Free Text): Vicky Lee DO, PGY-2: House Doctor response to an agitated patient 78 year old male with past medical history of ESRD who was admitted for altered mental status and hypotension who became agitated after dialysis. Historically, he gets out of hand after dialysis and at night. He does not have an active infection based on his microbiology or labs; however, the patient did pull out Intravenous lines. At the time of my examination he is not oriented to person, place or time. He was visually hallucinating when I saw him in the room. Nurse requested for soft upper extremity restraints which were warranted given the patient was hallucinating and a bit agitated. He was swinging his arms and legs. I feel the patient would benefit from soft restraints given he is altered and has the capactiy to hurt himself. No medications necessary. I endorsed the case to the primary physician, Dr. Grewal. - Problems Patient Problems: Problem List (Active/Current) Problem Status Onset Code Hyperglycemia Acute R73.9 NSTEMI (non-ST elevated myocardial infarction) Acute I21.4 Sepsis Acute A41.9
--- NOTE | 2018-06-14 19:38 | PN ---
DATE: 06/14/2018 SUBJECTIVE: The patient is currently undergoing hemodialysis. He denies any chest pain or shortness of breath. PHYSICAL EXAMINATION: VITAL SIGNS: Blood pressure 138/59, heart rate 64, temperature 97.8, and respirations 20. HEENT: Normocephalic. CHEST: Diminished breath sounds over the bases. HEART: S1 and S2 regular. ABDOMEN: Soft. EXTREMITIES: 1+ pitting edema. LABORATORY DATA: Today's hemoglobin and hematocrit 9.5 and 31.4, white count and platelet count are within normal limits. Today's BUN and creatinine of 61 and 7.4 at 4 a.m. Troponin 0.59. ASSESSMENT: 1. Consider non-ST elevation myocardial infarction. 2. End-stage renal disease on hemodialysis. 3. Mild anemia. 4. Hypertension. 5. Diabetes mellitus. RECOMMENDATIONS: Resume intravenous heparin, as well as aspirin 5 mg every 8 hours, Xopenex inhaler every 6 hours, PhosLo 1 tablet t.i.d., Neurontin 100 mg daily, and Seroquel 25 mg daily. Alec Stanford MD
--- NOTE | 2018-06-14 21:01 | PN ---
DATE: 06/14/2018 SUBJECTIVE: The patient is seen in the dialysis unit. He is awake, but he is confused. He is talking unintelligibly. PHYSICAL EXAMINATION: GENERAL: Elderly male lying in bed. VITAL SIGNS: Blood pressure 138/59, heart rate 64, respiratory rate 18-20, and temperature 97.8. HEENT: Normocephalic and atraumatic. Positive pallor. NECK: Supple. No JVD. LUNGS: Bilateral equal air entry, bilateral rhonchi. No rales. CARDIAC: S1 and S2, regular rate and rhythm. No murmur. No rub. ABDOMEN: Obese, distended, soft, and nontender. Bowel sounds present. EXTREMITIES: No lower extremity edema. INTAKE AND OUTPUT: Ultrafiltration 2000 mL on dialysis. LABORATORY DATA: Hemoglobin 9.5. Sodium 142, potassium 4.2, chloride 102, CO2 of 28, BUN 61, creatinine 7.4, troponin 0.59, phosphorus 5.6, albumin 3.5, and intact PTH 118. Blood cultures, no growth. CURRENT MEDICATIONS: Aricept 10, aspirin, Colace, Coreg 12.5 b.i.d., Flomax, insulin, Lipitor 40, Namenda 10 b.i.d.?, Neurontin 100, PhosLo 667 t.i.d., ProAmatine 5 every 8 hours, Protonix, Seroquel, and Tylenol. ASSESSMENT: 1. Altered mental status, confusion. 2. Severe hypotension. 3. Non-ST elevation myocardial infarction. 4. Dementia. 5. End-stage renal disease. 6. Yiw-gimempm-vokiddrpt diabetes mellitus. 7. Anemia of chronic kidney disease. 8. Hyperphosphatemia. PLAN: 1. Stable dialysis. 2. Management of her non-ST elevation [place] as per Cardiology, no plans for cardiac cath? 3. Continue phosphate binders. 4. Continue ProAmatine five t.i.d. Yadira Fox MD
[2018-06-15] MEDS: Levalbuterol 1.25 MG/3 ML Inhal Soln UD IH SCH ×5 (01:51→19:55)
--- NOTE | 2018-06-15 05:08 | CP.PCM.PN ---
Subjective - Date & Time of Evaluation Date of Evaluation: 06/15/18 Time of Evaluation: 05:08 - Subjective Subjective: TBD Objective - Vital Signs/Intake and Output Vital Signs (last 24 hours): Temp Pulse Resp BP Pulse Ox 98.2 F 69 20 105/51 L 94 L 06/15/18 00:01 06/15/18 02:00 06/15/18 00:01 06/15/18 00:01 06/15/18 00:01 Intake and Output: 06/14/18 06/15/18 18:59 06:59 Intake Total 195 250 Balance 195 250 - Medications Medications: Current Medications Acetaminophen (Tylenol 650 Mg Supp) 650 mg RC Q6H PRN PRN Reason: TEMP>=99.5F Acetaminophen (Tylenol 325mg Tab) 650 mg PO Q6 PRN PRN Reason: TEMP>=99.5F Last Admin: 06/12/18 16:56 Dose: 650 mg Aspirin (Aspirin) 325 mg PO DAILY [facility] Last Admin: 06/14/18 11:09 Dose: Not Given Atorvastatin Calcium (Lipitor) 40 mg PO [facility] Last Admin: 06/14/18 22:42 Dose: 40 mg Calcium Acetate (Phoslo) 667 mg PO TID [facility] Last Admin: 06/14/18 18:34 Dose: Not Given Carvedilol (Coreg) 12.5 mg PO BID [facility] Last Admin: 06/14/18 17:15 Dose: Not Given Docusate Sodium (Colace) 100 mg PO TID [facility] Last Admin: 06/14/18 18:33 Dose: Not Given Donepezil HCl (Aricept) 10 mg PO [facility] Last Admin: 06/14/18 22:42 Dose: 10 mg Gabapentin (Neurontin) 100 mg PO [facility]; Protocol Last Admin: 06/14/18 22:00 Dose: Not Given Heparin Sodium/Sodium Chloride (Heparin 01953 Units/250ml 1/2 Normal Saline) 25,000 units in 250 mls @ 11.235 mls/hr IV .[id number] [facility]; Protocol Last Admin: 06/14/18 22:52 Dose: 16 units/kg/hr, 14.979 mls/hr Insulin Human Lispro (Humalog Med) 0 units SC [facility]; Protocol Last Admin: 06/14/18 17:11 Dose: Not Given Levalbuterol HCl (Xopenex) 0.63 mg IH [id number] [facility] Last Admin: 06/15/18 01:51 Dose: 0.63 mg Lidocaine (Lidoderm) 1 ea TD DAILY [facility] Last Admin: 06/14/18 11:10 Dose: Not Given Memantine (Namenda) 10 mg PO BID [facility] Last Admin: 06/14/18 18:34 Dose: Not Given Midodrine (Proamatine) 5 mg PO Q8H [facility] Last Admin: 06/14/18 22:42 Dose: 5 mg Non-Formulary Medication (Insulin Glargine,Hum.Rec.Anlog [Tourosibel Nicholson Solostar]) 10 unit SQ HS [facility] Last Admin: 06/14/18 22:00 Dose: Not Given Ondansetron HCl (Zofran Inj) 4 mg IVP Q4H PRN PRN Reason: Nausea/Vomiting Pantoprazole Sodium (Protonix Ec Tab) 40 mg PO 0600 [facility] Last Admin: 06/14/18 05:03 Dose: 40 mg Quetiapine Fumarate (Seroquel) 25 mg PO HS PRN; Protocol PRN Reason: agitation/aggression Last Admin: 06/13/18 21:36 Dose: 25 mg Tamsulosin HCl (Flomax) 0.4 mg PO DAILY [facility] Last Admin: 06/14/18 11:10 Dose: Not Given - Labs Labs: 06/14/18 04:10 06/14/18 04:10 PT 15.3 SECONDS (9.4-12.5) H 06/11/18 11:30 INR 1.35 06/11/18 11:30 APTT 59.6 Seconds (26.9-38.3) H 06/14/18 06:15
[2018-06-15] MEDS: Pantoprazole 40 mg EC Tab PO SCH (06:10)
[2018-06-15 07:28] LABS: BASO # 0.01 K/mm3 (0.0-2.0); BASO % 0.2 % (0.0-3.0); EOS # 0.2 (0.0-0.7); EOS % 3.4 % (1.5-5.0); HEMOGLOBIN 10.5 g/dL (14.0-18.0); LYMPH # 1.8 (1.2-3.4); LYMPH % 30.6 % (22.0-35.0); MEAN CELL VOLUME 96.1 fl (80.0-105.0); MEAN CORPUSCULAR HGB CONC 30.2 g/dl (31.0-37.0); MONO # 0.4 (0.1-0.6); MONO % 6.2 % (1.0-6.0); RBC 3.62 10^6/uL (3.5-6.1); RED CELL DISTRIBUTION WIDTH 15.4 % (11.5-14.5); WHITE BLOOD COUNT 5.9 10^3/uL (4.5-11.0)
[2018-06-15 08:01] LABS: TROPONIN I 0.43 ng/mL
[2018-06-15 08:29] LABS: ALB/GLOB RATIO 1.1 (1.1-1.8); ALBUMIN 3.7 g/dL (3.0-4.8); BILIRUBIN,DIRECT 0.4 mg/dL (0.0-0.4); CALCIUM 8.7 mg/dL (8.4-10.5)
[2018-06-15] MEDS: Lidocaine 5% Patch TD SCH (09:09)
[2018-06-15] MEDS: Insulin Lispro (humaLOG) MEDIUM Coverage SC SCH ×3 (09:10→17:00)
[2018-06-15] MEDS: Heparin25000 units/250ml 1/2NS 25,000 UNITS/250 ML BAG IV SCH (16:55)
[2018-06-15] MEDS: Dextrose 5%/0.45% NS 1,000 ML IV SCH (18:26)
--- NOTE | 2018-06-15 21:00 | PN ---
DATE: 06/15/2018 SUBJECTIVE: The patient is currently lethargic and he is on aspiration precaution. He is in atrial fibrillation with controlled heart rate. PHYSICAL EXAMINATION: VITAL SIGNS: Blood pressure 98/55, heart rate 62, temperature 98.2, respirations 18. HEENT: Pale conjunctivae. CHEST: Absent breath sounds over the bases. HEART: S1 and S2, regular. EXTREMITIES: 1+ pitting edema. LABORATORY DATA: Today's hemoglobin and hematocrit 10.5 and 34.8, white count and platelet count are within normal limits. Today's BUN and creatinine are 32 and 5.1 respectively. Troponin 0.43. The most recent PTT is 52.5 from this morning. ASSESSMENT: 1. Ief-MR-yvpbocjhh myocardial infarction. 2. End-stage renal disease, on hemodialysis. 3. Altered mental status. 4. Diabetes mellitus. 5. Hypertension. 6. History of single-chamber ventricular pacemaker placement. 7. Moderate pulmonary hypertension. RECOMMENDATIONS: Continue aspirin 325 mg once a day, Coreg 12.5 mg twice a day, discontinue intravenous heparin and start subcutaneous heparin 5000 units every 8 hours, continue ProAmatine 5 mg every 8 hours, Seroquel 25 mg once a day, Xopenex inhaler every 6 hours. Conservative medical approach is recommended. The patient is not a suitable candidate for invasive cardiac workup at least at this time. Alec Stanford MD
--- NOTE | 2018-06-15 23:09 | PN ---
DATE: 06/15/2018 SUBJECTIVE: The patient is seen lying in the bed in room 263, bed 1. Overnight nurse's notes were reviewed. The patient had agitated, restless behavior according to the nurses' note. The patient's house physician and the resident saw the patient. The patient became agitated after dialysis. The patient was found to be disoriented to person, place and time and visual hallucination was noted by the medical records assistant. The patient was found to be agitated. The patient was put on wrist restraints. The patient now is seen today in the morning. The patient still has wrist restraint and the patient is arousable, awake, responsive, alert, disoriented, confused. PHYSICAL EXAMINATION: VITAL SIGNS: In the last 12 to 24 hours, T-max is 98.2. Telemetry shows sinus rhythm, intermittent ventricular paced rhythm, heart rate 61, blood pressure is 116/60, 98/55, 145/62, 159/67, 105/51, 138/59, respiration 18, O2 sat 97% on 2 liters. HEENT: Head is normocephalic, atraumatic. HEENT examination shows pinkish pale conjunctivae. Anicteric sclerae. No oropharyngeal lesion. NECK: No neck rigidity. Soft carotid bruit. CHEST: Kyphosis. Positive left upper chest pacemaker noted. CARDIOPULMONARY: S1, S2, regular rhythm. Positive systolic murmur at left sternal border, right second intercostal space, left second intercostal space. ABDOMEN: Soft, protuberant. No palpable hepatosplenomegaly. GENITALIA: Male. RECTAL: Deferred. EXTREMITIES: Positive wrist restraints noted. Extremities shows positive left upper extremity AV fistula, positive thrill. The patient is able to move lower extremity without assistance. Gait examination is not tested. VASCULAR: Palpable decreased pulses. MUSCULOSKELETAL: Shows a body mass index of 32.3. DIAGNOSTICS: On 06/15/2018, WBC 5.9, hemoglobin/hematocrit 10.5, 34.8, platelets 139. Normal differential. PTT was 52.5. Sodium 139, potassium 3.8, chloride 100, CO2 of 29, anion gap 14, BUN 32, creatinine 5.1, GFR 11, glucose 85, calcium 8.7, phosphorus 4.0, magnesium 1.9. LFTs are normal. Troponin 0.43. Microbiology, blood cultures negative. The patient was noted by the nurses to have difficulty swallowing. The patient was seen by the speech and swallow evaluation. The patient was noted to have delayed cough and choking post swallow. Questionable esophageal issues were noted. IMPRESSION: 1. Questionable and possible behavioral disorder with episodic confusion, disorientation and agitation. 2. Visual hallucination. 3. Status post hypotension, now normotensive. 4. Advance underlying dementia. 5. Normocytic anemia with granulocytosis. 6. Acute non-ST elevation myocardial infarction with elevated troponin. 7. End-stage renal disease, hemodialysis dependent three times a week. 8. Insulin-requiring diabetes mellitus. 9. Acute non-ST elevation myocardial infarction with elevated troponin. 10. Secondary hyperparathyroidism with elevated PTH of 180. 11. Delayed cough with post swallow choking, questionable esophageal dysfunction. 12. Esophagitis with circumferential mucosal edema thickening seen at the lower cervical and upper mid thoracic esophagus. 13. Multiple nonspecific anterior middle mediastinal lymphadenopathy. 14. Solitary 1.7 cm middle mediastinal lymphadenopathy. 15. Pulmonary emphysema. 16. Permanent pacemaker implant. 17. Extensive atheromatous calcific plaques of the common carotid artery and carotid bulb. 18. Degenerative disk disease of the cervical spine with osteophytic scarring and degenerative arthritis. 19. Bilateral maxillary sinusitis. 20. Lower cervical esophagus and upper mid esophagitis. 21. Gait dysfunction. 22. Deconditioning. 23. Dementia. 24. Left lower lobe multiple pulmonary nodule and pneumonic infiltrate. 25. Mitral annulus calcification. 26. Diffuse esophagitis. 27. Middle mediastinal lymphadenopathy. 28. Gastritis. 29. Splenomegaly. 30. Multiple left lower lobe pulmonary nodules suspicious for metastases disease. 31. Associated pneumonic infiltrate. 32. Small left pleural effusion. 33. Permanent pacemaker implant. 34. Right upper chest pacemaker implant. 35. End-stage renal disease, hemodialysis dependent. 36. Advanced dementia. 37. Anemia of chronic disease. 38. Hyperphosphatemia. 39. Constipation. 40. Prostatic hypertrophy. 41. Hyperlipidemia. 42. Diabetic neuropathy. 43. Hypotension. PLAN: At this time, the patient's discharge, which was supposed to pick today has been canceled. The patient has been requested to be evaluated by Gastroenterology throat for choking issues.. The patient will be started on high-dose proton pump inhibitor for severe esophagitis of the lower cervical upper to mid thoracic esophagus. CURRENT CONSULTATION: Gastroenterology, ENT, Cardiology, Neurology, Nephrology. CURRENT MEDICATIONS: Aricept 10 mg daily, Ecotrin 325 daily, Colace 100 mg three times a day, Coreg 12.5 twice a day. The patient is started on IV fluid D5 half normal saline at 40 mL an hour. Flomax 0.4 mg daily, heparin 5000 subcutaneously every 8, Humalog medium dose sliding scale coverage a.c., 10 units at bedtime, Lidoderm 5% patch to the affected area, Lipitor 40 mg at bedtime, Namenda 10 mg twice a day, Neurontin 100 mg at bedtime, PhosLo 667 mg three times a day, ProAmatine 5 mg every 8, Protonix 40 mg IV every 12, Seroquel 25 mg at bedtime,Tylenol 650 mg p.o. suppository every 6 p.r.n., Xopenex nebulizer 0.63 mg every 6 hours [id number], Zofran 4 mg IV every 4 p.r.n. In addition, we are awaiting for the official result of the CT of the chest and the neck. The preliminary reports were reviewed. The patient has been on GI, DVT prophylaxis. The patient has been ordered physical therapy, occupational therapy. The patient's last seen by physical therapist on 06/14/2018. The patient was last evaluated by physical therapy was . After that, the patient was unable to be evaluated and treated by the physical therapy. Their recommendation was rehab. The patient's and the family met with the [employer] Super[employer]. The patient was denied by at [facility]. The patient's has declined rehab and prefers to take home with [facility]. The patient will be considered for discharge once after GI evaluation and ears, nose, and throat evaluation. Dictated and electronically signed, not read. Oleg Whitman MD
[2018-06-16] MEDS: INSULIN GLARGINE HUM REC ANLOG 10 UNIT SQ SCH ×2 (00:54→21:15)
[2018-06-16] MEDS: Levalbuterol 1.25 MG/3 ML Inhal Soln UD IH SCH ×4 (01:10→19:55)
[2018-06-16] MEDS: Insulin Lispro (humaLOG) MEDIUM Coverage SC SCH ×3 (07:30→17:28)
--- NOTE | 2018-06-16 08:36 | CP.PCM.PN ---
Subjective - Date & Time of Evaluation Date of Evaluation: 06/16/18 Time of Evaluation: 08:00 - Subjective Subjective: (covering for Dr. Whitman) Patient is seen this morning. He is lying in bed in room 263 bed 1. He is awake and alert and able to answer questions a little more clearly. Objective - Vital Signs/Intake and Output Vital Signs (last 24 hours): Temp Pulse Resp BP Pulse Ox 98.8 F 65 20 146/56 L 97 06/16/18 06:00 06/16/18 06:00 06/16/18 06:00 06/16/18 06:00 06/16/18 06:00 Intake and Output: 06/16/18 06/16/18 06:59 18:59 Intake Total 440 Balance 440 - Medications Medications: Current Medications Acetaminophen (Tylenol 650 Mg Supp) 650 mg RC Q6H PRN PRN Reason: TEMP>=99.5F Acetaminophen (Tylenol 325mg Tab) 650 mg PO Q6 PRN PRN Reason: TEMP>=99.5F Last Admin: 06/12/18 16:56 Dose: 650 mg Aspirin (Aspirin) 325 mg PO DAILY [facility] Last Admin: 06/15/18 09:09 Dose: 325 mg Atorvastatin Calcium (Lipitor) 40 mg PO HS [facility] Last Admin: 06/15/18 22:30 Dose: Not Given Calcium Acetate (Phoslo) 667 mg PO TID [facility] Last Admin: 06/15/18 17:03 Dose: Not Given Carvedilol (Coreg) 12.5 mg PO BID [facility] Last Admin: 06/15/18 22:30 Dose: Not Given Docusate Sodium (Colace) 100 mg PO TID [facility] Last Admin: 06/15/18 17:02 Dose: Not Given Donepezil HCl (Aricept) 10 mg PO HS [facility] Last Admin: 06/15/18 22:30 Dose: Not Given Gabapentin (Neurontin) 100 mg PO HS [facility]; Protocol Last Admin: 06/15/18 22:30 Dose: Not Given Heparin Sodium (Porcine) (Heparin) 5,000 units SC Q8 [facility]; Protocol Last Admin: 06/16/18 05:13 Dose: 5,000 units Dextrose/Sodium Chloride (Dextrose 5%/0.45% Ns 1000 Ml) 1,000 mls @ 40 mls/hr IV .Q24H [facility] Last Admin: 06/15/18 18:26 Dose: 40 mls/hr Insulin Human Lispro (Humalog Med) 0 units SC AC [facility]; Protocol Last Admin: 06/15/18 17:00 Dose: Not Given Levalbuterol HCl (Xopenex) 0.63 mg IH [id number] [facility] Last Admin: 06/16/18 08:11 Dose: 0.63 mg Lidocaine (Lidoderm) 1 ea TD DAILY [facility] Last Admin: 06/15/18 09:09 Dose: 1 ea Memantine (Namenda) 10 mg PO BID [facility] Last Admin: 06/15/18 17:02 Dose: Not Given Midodrine (Proamatine) 5 mg PO Q8H [facility] Last Admin: 06/16/18 06:37 Dose: Not Given Non-Formulary Medication (Insulin Glargine,Hum.Rec.Anlog [Toujeo Max Solostar]) 10 unit SQ [facility] Last Admin: 06/16/18 00:54 Dose: Not Given Ondansetron HCl (Zofran Inj) 4 mg IVP Q4H PRN PRN Reason: Nausea/Vomiting Pantoprazole Sodium (Protonix Inj) 40 mg IVP Q12 [facility] Last Admin: 06/15/18 21:16 Dose: 40 mg Quetiapine Fumarate (Seroquel) 25 mg PO [facility]; Protocol Last Admin: 06/15/18 22:30 Dose: Not Given Tamsulosin HCl (Flomax) 0.4 mg PO DAILY [facility] Last Admin: 06/15/18 09:09 Dose: 0.4 mg - Labs Labs: 06/15/18 07:00 06/15/18 07:00 PT 15.3 SECONDS (9.4-12.5) H 06/11/18 11:30 INR 1.35 06/11/18 11:30 APTT 52.5 Seconds (26.9-38.3) H 06/15/18 07:00 - Constitutional Appears: No Acute Distress - Head Exam Head Exam: ATRAUMATIC, NORMOCEPHALIC - Respiratory Exam Respiratory Exam: Clear to Ausculation Bilateral, NORMAL BREATHING PATTERN - Cardiovascular Exam Cardiovascular Exam: +S1, +S2 - GI/Abdominal Exam GI & Abdominal Exam: Soft, Normal Bowel Sounds. absent: Tenderness Additional comments: obese - Extremities Exam Additional comments: BL SCDs - Neurological Exam Neurological Exam: Alert, Awake Assessment and Plan - Assessment and Plan (Free Text) Assessment: Dysphagia Acute NSTEMI AMS CAD DMII Dementia ESRD on HD Plan: Patient with dysphagia. He is to be evaluated by ENT and Gastroenterology. continue Protonix IV q12 hours for suspected severe esophagitis. CT chest and neck have been done; report pending. continue ASA, Coreg and Lipitor for NV continue dialysis as per nephrology continue Aricept and Namenda for dementia
[2018-06-16] MEDS: Lidocaine 5% Patch TD SCH (09:54)
--- NOTE | 2018-06-16 10:06 | CT ---
Date of service: 06/15/2018 PROCEDURE: CT NECK WITHOUT CONTRAST HISTORY: DYSPHAGIA COMPARISON: 07/04/2017 CT TECHNIQUE: CT of the neck without intravenous contrast. Coronal and sagittal reformats generated. Radiation dose: Total exam DLP = 654.23 mGy-cm. This CT exam was performed using one or more of the following dose reduction techniques: Automated exposure control, adjustment of the mA and/or kV according to patient size, and/or use of iterative reconstruction technique. FINDINGS: NASOPHARYNX: Unremarkable. SUPRAHYOID NECK: Unremarkable oropharynx, oral cavity, parapharyngeal space and retropharyngeal space. INFRAHYOID NECK: Unremarkable larynx, hypopharynx, and supraglottic space. Vocal cords intact. There is mild mural thickening in the esophagus which could represent chronic esophagitis. This could also be seen on the previous exam MASS: None. GLANDS: Parotid and submandibular glands unremarkable. Normal size thyroid gland, without nodule. LYMPH NODES: Normal. No lymphadenopathy. CERVICAL SPINE: Multilevel disc degeneration aortic calcifications OTHER FINDINGS: The report concurs with the preliminary [employer] report IMPRESSION: There is mild mural thickening in the esophagus which could represent chronic esophagitis. This could also be seen on the previous exam
--- NOTE | 2018-06-16 10:11 | CT ---
Date of service: 06/15/2018 PROCEDURE: CT Chest without contrast HISTORY: DYSPHAGIA COMPARISON: 01/24/2018 TECHNIQUE: Contiguous axial images were obtained through the chest without intravenous contrast enhancement. Sagittal and coronal reconstructions were performed. Radiation dose: Total exam DLP = 1011.15 mGy-cm. This CT exam was performed using one or more of the following dose reduction techniques: Automated exposure control, adjustment of the mA and/or kV according to patient size, and/or use of iterative reconstruction technique. FINDINGS: LUNGS: Patchy areas of consolidation can be seen at the left lung base suspicious for pneumonia. Emphysematous changes are seen especially in the upper lobes. MEDIASTINUM: Unremarkable thoracic aorta. No aneurysm. Mild cardiomegaly. Aortic calcification. Mitral valve calcification. Main pulmonary artery unremarkable. No vascular congestion. Mild mediastinal adenopathy Aortic calcification. PLEURA: No pleural fluid. No pneumothorax. BONES: No fracture. No destructive lesion. UPPER ABDOMEN: Grossly unremarkable. OTHER FINDINGS: The report concurs with the preliminary [employer] report IMPRESSION: Patchy areas of consolidation can be seen at the left lung base suspicious for pneumonia. Emphysematous changes are seen especially in the upper lobes.
--- NOTE | 2018-06-16 12:33 | CP.PCM.CON ---
History of Present Illness - History of Present Illness History of Present Illness: CC: Dysphagia HPI: 78 y/o male admitted to [facility] with past medical hx of CKD on HD M//, hypertension, hyperlipidemia, advanced dementia, pasemaker, TIA, CHF and COPD kylieo presented 1 day after his dialysis on 06/11/18 withy complaints of weakness, confusion and hypotension as per . history is limited secondary to pt dementia condition. ENT has been asked to see the patient secondary to noted dysphagia. Nursing reports patient to have choking and coughing episodes after eating. Pt denies other ear nose and throat problems. Speech is somewhat garbled upon exam. Social hx: former smoker, denies alcohol or drug use Fam Hx: DM and hypertension Surgical Hx: left 5th toe amputaion All: NKDA Review of Systems - Constitutional Constitutional: As Per HPI - EENT Eyes: As Per HPI Ears: As Per HPI Nose/Mouth/Throat: As Per HPI - Cardiovascular Cardiovascular: As Per HPI - Respiratory Respiratory: As Per HPI - Gastrointestinal Gastrointestinal: As Per HPI - Genitourinary Genitourinary: As Per HPI - Reproductive: Male Reproductive:Male: As Per HPI - Musculoskeletal Musculoskeletal: As Per HPI - Integumentary Integumentary: As Per HPI - Neurological Neurological: As Per HPI - Psychiatric Psychiatric: As Per HPI - Endocrine Endocrine: As Per HPI - Hematologic/Lymphatic Hematologic: As Per HPI Past Patient History - Infectious Disease Hx of Infectious Diseases: None - Past Medical History & Family History Past Medical History?: Yes - Past Social History Smoking Status: Former Smoker - CARDIAC Hx Cardia Arrhythmia: Yes Hx Congestive Heart Failure: Yes Hx Hypertension: Yes (and hypotension) Other/Comment: 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 - PULMONARY Hx Respiratory Disorders: Yes (respiratory distress) Hx Pneumonia: Yes - NEUROLOGICAL Hx Neurological Disorder: No - HEENT Hx HEENT Problems: Yes (eyeglasses) - RENAL Hx Chronic Kidney Disease: Yes (esrd) Hx Dialysis: Yes ([facility] [place] w ) Date of Last Dialysis Treatment: 02/08/18 - ENDOCRINE/METABOLIC Hx Endocrine Disorders: Yes (hypoparathyroidism) - HEMATOLOGICAL/ONCOLOGICAL Hx Blood Disorders: Yes (sepsis) Hx Anemia: Yes (blood transfusion) - INTEGUMENTARY Hx Dermatological Problems: Yes Other/Comment: diabetic foot ulcers multiple left foot, amputation and debridement of necrotic tissue 02/01/18, left 5th toe sutures intact, left foot al 4 toes have dry wounds anterior toes,and thick dry toenails dry flakey skin, skin discolorations both arms, small 0.3cm round scab rle, lle below knee old scar for "when I was a teenager." swelling and pain left foot with geoffrey dressing to foot - MUSCULOSKELETAL/RHEUMATOLOGICAL Hx Back Pain: Yes Hx Herniated Disk: Yes (lumbar spine) Hx Unsteady Gait: Yes (walker) - GASTROINTESTINAL Hx Gastrointestinal Disorders: Yes (obese) - GENITOURINARY/GYNECOLOGICAL Hx Genitourinary Disorders: Yes (oliguria) - PSYCHIATRIC Hx Psychophysiologic Disorder: No Hx Substance Use: No - SURGICAL HISTORY Hx Amputation: Yes (left ft 5th toe 02/01/18) Other/Comment: sriram av shunt - ANESTHESIA Hx Anesthesia Reactions: No Hx Malignant Hyperthermia: No Meds Home Medications: Home Medication List Medication Instructions Recorded Confirmed Type Acetaminophen [Tylenol 325mg tab] 650 mg PO Q6 PRN #120 tab 06/15/18 Rx Aspirin 325 mg PO DAILY #30 tab 06/15/18 Rx Atorvastatin [Lipitor] 40 mg PO HS #30 tab 06/15/18 Rx Calcium Acetate [Phoslo] 667 mg PO TID #90 tab 06/15/18 Rx Carvedilol [Coreg] 12.5 mg PO BID #60 tab 06/15/18 Rx Docusate [Colace] 100 mg PO TID #30 cap 06/15/18 Rx Donepezil [Aricept] 10 mg PO HS #30 tab 06/15/18 Rx Gabapentin [Neurontin] 100 mg PO HS #30 cap 06/15/18 Rx Insulin Glargine,Hum.rec.anlog 10 unit SQ HS #1 insuln.pen 06/15/18 Rx [Toujeo Max Solostar] Levalbuterol [Xopenex] 0.63 mg IH [id number] #120 neb 06/15/18 Rx Lidocaine 5% [Lidoderm] 1 ea TD DAILY #30 patch 06/15/18 Rx Memantine [Namenda] 10 mg PO BID #60 tab 06/15/18 Rx Midodrine [Proamatine] 5 mg PO Q8H #90 tab 06/15/18 Rx Pantoprazole [Protonix EC Tab] 40 mg PO 0600 #30 ect 06/15/18 Rx QUEtiapine [Seroquel] 25 mg PO HS #15 tab 06/15/18 Rx Tamsulosin [Flomax] 0.4 mg PO DAILY #30 cap 06/15/18 Rx Allergies/Adverse Reactions: Allergies Allergy/AdvReac Type Severity Reaction Status Date / Time No Known Allergies Allergy Verified 06/11/18 10:32 - Medications Medications: Current Medications Acetaminophen (Tylenol 650 Mg Supp) 650 mg RC Q6H PRN PRN Reason: TEMP>=99.5F Acetaminophen (Tylenol 325mg Tab) 650 mg PO Q6 PRN PRN Reason: TEMP>=99.5F Last Admin: 06/12/18 16:56 Dose: 650 mg Aspirin (Aspirin) 325 mg PO DAILY [facility] Last Admin: 06/16/18 09:50 Dose: Not Given Atorvastatin Calcium (Lipitor) 40 mg PO [facility] Last Admin: 06/15/18 22:30 Dose: Not Given Calcium Acetate (Phoslo) 667 mg PO TID [facility] Last Admin: 06/16/18 09:51 Dose: Not Given Carvedilol (Coreg) 12.5 mg PO BID [facility] Last Admin: 06/16/18 09:50 Dose: Not Given Docusate Sodium (Colace) 100 mg PO TID [facility] Last Admin: 06/16/18 09:50 Dose: Not Given Donepezil HCl (Aricept) 10 mg PO [facility] Last Admin: 06/15/18 22:30 Dose: Not Given Gabapentin (Neurontin) 100 mg PO [facility]; Protocol Last Admin: 06/15/18 22:30 Dose: Not Given Heparin Sodium (Porcine) (Heparin) 5,000 units SC Q8 [facility]; Protocol Last Admin: 06/16/18 05:13 Dose: 5,000 units Dextrose/Sodium Chloride (Dextrose 5%/0.45% Ns 1000 Ml) 1,000 mls @ 40 mls/hr IV .Q24H [facility] Last Admin: 06/15/18 18:26 Dose: 40 mls/hr Insulin Human Lispro (Humalog Med) 0 units SC AC [facility]; Protocol Last Admin: 06/16/18 11:31 Dose: Not Given Levalbuterol HCl (Xopenex) 0.63 mg IH [id number] [facility] Last Admin: 06/16/18 08:11 Dose: 0.63 mg Lidocaine (Lidoderm) 1 ea TD DAILY [facility] Last Admin: 06/16/18 09:54 Dose: 1 ea Memantine (Namenda) 10 mg PO BID [facility] Last Admin: 06/16/18 09:51 Dose: Not Given Midodrine (Proamatine) 5 mg PO Q8H [facility] Last Admin: 06/16/18 06:37 Dose: Not Given Non-Formulary Medication (Insulin Glargine,Hum.Rec.Anlog [Toujeo Max Solostar]) 10 unit SQ [facility] Last Admin: 06/16/18 00:54 Dose: Not Given Ondansetron HCl (Zofran Inj) 4 mg IVP Q4H PRN PRN Reason: Nausea/Vomiting Pantoprazole Sodium (Protonix Inj) 40 mg IVP Q12 [facility] Last Admin: 06/16/18 09:53 Dose: 40 mg Quetiapine Fumarate (Seroquel) 25 mg PO HS [facility]; Protocol Last Admin: 06/15/18 22:30 Dose: Not Given Tamsulosin HCl (Flomax) 0.4 mg PO DAILY [facility] Last Admin: 06/16/18 09:51 Dose: Not Given Physical Exam - Constitutional Appears: Well, Non-toxic, No Acute Distress - Head Exam Head Exam: ATRAUMATIC, NORMAL INSPECTION - Eye Exam Eye Exam: EOMI, Normal appearance Pupil Exam: PERRL - ENT Exam ENT Exam: Mucous Membranes Moist, Normal Exam, Normal External Ear Exam, Normal Oropharynx, TM's Normal Bilaterally Additional comments: Procedure:Flexible Fiberoptic Laryngoscopy/mini Flexible Fiberoptic Eval Of Swallowing: FEES FFL performed for anatomy unsuitable for mirror exam After informed consent the nose was anesthetized with lidocaine afirin topical spray scope was inserted through right nares and advanced to nasopharynx-wnl, scope further advanced to supraglottic region findings: Supraglottis: wnl no masses/lesions Glottis: no masses /lesions wnl, airway patent and stable hypopharynx: no masses/wnl/no lesions vocal cord motion: wnl, good closure Pt was then tested with drinking apple juice. He did swallow well but had a choking episode after drinking the fluid. Next, applesauce was given to the patient. there was no residual food in the larynx after swallowing. He did not choke after eating. Pt tolerated the procedure well - Expanded ENT Exam Expanded Mouth exam: normal external inspection Teeth exam: edentulous Throat exam: Normal Inspection - Neck Exam Neck exam: Positive for: Normal Inspection. Negative for: Lymphadenopathy, Tenderness Results - Vital Signs Recent Vital Signs: Last Vital Signs Temp 98.8 F 06/16/18 06:00 Pulse 65 06/16/18 06:00 Resp 20 06/16/18 06:00 BP 146/56 L 06/16/18 06:00 Pulse Ox 97 06/16/18 06:00 - Labs Result Diagrams: 06/15/18 07:00 06/15/18 07:00 - Imaging and Cardiology CT scan - chest Status: Report reviewed by me (CT chest 06/15/18-patchy consilidation LLL- consistent with pneumonia, emphysema changes upper lobes) CT scan - head Status: Report reviewed by me (CT NECK: done 06/15/18 showed mild mural thickening in the esophagus which could represent esophagitis) Assessment & Plan (1) Hyperglycemia Status: Acute (2) NSTEMI (non-ST elevated myocardial infarction) Status: Acute (3) Sepsis Status: Acute (4) Acute pharyngitis due to other specified organisms Status: Acute (5) Altered mental status Status: Acute (6) Anemia in CKD (chronic kidney disease) Status: Acute (7) CHF (congestive heart failure) Status: Acute (8) CKD (chronic kidney disease) requiring chronic dialysis Status: Acute (9) Cough Status: Acute (10) Dementia Status: Acute (11) Diabetic foot infection Status: Acute (12) End stage renal disease Status: Acute (13) Essential hypertension Status: Acute (14) Fluid overload Status: Acute (15) Hypotension Status: Acute (16) Oropharyngeal candidiasis Status: Acute (17) Oropharyngeal dysphagia Status: Acute (18) Other voice and resonance disorders Status: Acute (19) Peripheral vascular disease Status: Acute (20) Pneumonia Status: Acute (21) Renal failure Status: Acute (22) Throat pain Status: Acute (23) Toe gangrene Status: Acute (24) Type 2 diabetes mellitus with diabetic nephropathy Status: Acute (25) Chronic kidney disease-mineral and bone disorder Status: Chronic (26) Hypertensive CKD, ESRD on dialysis Status: Chronic (27) TIA (transient ischemic attack) Status: Acute (28) Dementia Status: Acute - Assessment and Plan (Free Text) Plan: I reviewed speech therapy notes along with imaging. The patient has oropharyngeal and esophageal dysphagia origin multifactorial in nature. Pt has hx of TIA, dementia and Diabetes which all can potentially effect the patient's swallowing. The patient did well with applesauce trial. I recommend the patient having thickened liquids and puree diet. He is to work with speech to help with swallowing techniques (chin tuck and double swallow and post swallow cough). He is to be evaluated by GI. If patient unable to tolerate these conservative measures PEG to be considered. - Date & Time Date: 06/16/18 Time: 12:33
--- NOTE | 2018-06-16 14:47 | PN ---
DATE: 06/16/2018 SUBJECTIVE: The patient is currently oriented to place. He complains of bilateral sharp foot pain. No retrosternal chest pain. OBJECTIVE: VITAL SIGNS: Blood pressure 146/56, heart rate 65, temperature 98.8, respirations 20. HEENT: Normocephalic. CHEST: Clear. HEART: S1 and S2 regular. EXTREMITIES: No edema. LABORATORY DATA: Soft tissue neck CT scan, there is mild mural thickening esophagus, which could represent chronic esophagitis. Chest CT scan without contrast, patchy areas of consolidation in the left base suspicious for pneumonia, emphysematous changes in the upper lobe. ASSESSMENT: 1. Qys-CG-mbmzjybyg myocardial infarction. 2. End-stage renal disease on hemodialysis. 3. Improvement of altered mental status at this time. 4. Diabetes mellitus and hypertension. 5. History of ventricular pacemaker placement. The patient is currently in paced rhythm. 6. Moderate pulmonary hypertension. 7. Bilateral foot pain, rule out neuropathic pain versus gouty arthritis. RECOMMENDATIONS: Continue subcutaneous heparin 5000 units every 8 hours. Continue Xopenex inhaler, p.r.n. IV Zofran. Obtain serum uric acid. Alec Stanford MD
[2018-06-16] MEDS: Dextrose 5%/0.45% NS 1,000 ML IV SCH (17:31)
--- NOTE | 2018-06-16 23:54 | CON ---
DATE: 06/16/2018 GASTROENTEROLOGY CONSULTATION REQUESTING PHYSICIAN: Dr. Whitman I have been asked to see this 78-year-old male with multiple comorbidities including end-stage renal failure, on dialysis; diabetic foot ulcers; type 2 diabetes mellitus; COPD; advanced dementia; peripheral arterial disease; who comes to the hospital for altered mental status, lethargy and hypotension. In the emergency room, the patient was found to be hypotensive with blood pressure in the 80s systolic. I have been asked to see this patient for oropharyngeal dysphagia with cough shortly after swallowing and regurgitation. CT scan of the neck revealed nonspecific mural thickening of the esophagus. The patient is currently awake and alert. He denies any abdominal pain, shortness of breath, cough or chest pain. PAST MEDICAL HISTORY: As above. Again, he has a history of end-stage renal disease, on dialysis; peripheral arterial disease; diabetic foot ulcers; dementia; type 2 diabetes mellitus; hypertension; CHF; hyperlipidemia; COPD; arrhythmia requiring permanent pacemaker. PAST SURGICAL HISTORY: Notable for permanent pacemaker placement, foot surgery for foot ulcers. SOCIAL HISTORY: He is a former cigarette smoker, having quit years ago. He denies alcohol use. FAMILY HISTORY: Noncontributory. REVIEW OF SYSTEMS: Fourteen-point review of systems is notable for postprandial cough and regurgitation. MEDICATIONS AT HOME: Include Aricept, Namenda, Lipitor, insulin, PhosLo, Flomax, ProAmatine, Colace and Coreg. PHYSICAL EXAMINATION: GENERAL: Obese male lying in bed, awake, alert, in no acute distress. VITAL SIGNS: Reveal temperature of 98.6, blood pressure 138/59, heart rate of 61. HEENT: Reveals sclerae to be white. Conjunctivae pink. Oral mucosa reveals no lesions. NECK: Supple. CHEST: Reveals scattered rhonchi. HEART: Exam reveals regular rate and rhythm. ABDOMEN: Obese, soft, nontender. EXTREMITIES: Show multiple ulcers in the toes of his left foot. He does have an amputation of his left fifth toe. IMPRESSION: This is an 78-year-old male admitted to the hospital with altered mental status, hypotension, found to have positive troponins consistent with acute iji-HC-[id number] elevation myocardial infarction with oropharyngeal dysphagia. He has nonspecific mural thickening of the esophagus on soft tissue CT of the neck. The patient had ENT exam with Dr. Robles with a normal laryngoscopic exam and the patient had a trial of pureed liquids which he was able to tolerate. I gave the patient water and he was able to tolerate water without coughing or choking. He has intermittent oropharyngeal dysphagia but may be able to tolerate a pureed diet. He does have dementia and recent acute [id number] elevation myocardial infarction as well as end-stage renal disease. RECOMMENDATIONS: 1. We will request an esophagram. 2. We will repeat a formal swallowing evaluation, and based on the findings, an appropriate diet will be ordered. Thank you. Eamon Duff MD
[2018-06-17] MEDS: Levalbuterol 1.25 MG/3 ML Inhal Soln UD IH SCH ×3 (01:06→13:50)
[2018-06-17 06:30] VITALS: O2SAT 97
[2018-06-17] MEDS: Insulin Lispro (humaLOG) MEDIUM Coverage SC SCH ×3 (08:02→17:24)
--- NOTE | 2018-06-17 08:41 | PN ---
DATE: 06/15/2018 SUBJECTIVE: The patient is seen lying in bed. He is groggy. He is arousable. is at bedside. Earlier he had a swallowing eval, he failed, he choked. He is now n.p.o. PHYSICAL EXAMINATION: GENERAL: Elderly male lying in bed. VITAL SIGNS: Blood pressure 116/60, heart rate 61, respiratory rate 18, temperature 97. HEENT: Normocephalic, atraumatic, positive pallor. NECK: Supple, no JVD. LUNGS: Bilateral equal entry, bilateral equal expansion. CARDIAC: S1 and S2, regular rate and rhythm, no murmur, no rub. ABDOMEN: Obese, distended, soft, nontender, bowel sounds present. EXTREMITIES: No lower extremity edema. LABORATORY DATA: WBC 5.9, hemoglobin 10.5, hematocrit 35, platelets 139. Sodium 139, potassium 2.8, chloride 100, CO2 of 29, BUN 32, creatinine 5.1, glucose 85. Medication list reviewed. ASSESSMENT AND PLAN: 1. Altered mental status. 2. Hypotension. 3. Non-insulin dependent diabetes mellitus. 4. End-stage renal disease. 5. Dementia. 6. Status post non-ST elevation myocardial infarction. PLAN: 1. Start D5 half-normal saline at 40. 2. GI evaluation. 3. Conservative management for non-ST elevation OK. 4. Status post dialysis yesterday. 5. Continue ProAmatine. Yadira Fox MD
[2018-06-17] MEDS: Lidocaine 5% Patch TD SCH (09:21)
--- NOTE | 2018-06-17 09:55 | CP.PCM.DIS ---
Provider - Provider Date of Admission: 06/11/18 13:45 Attending physician: Oleg Whitman MD Consults: 06/11/18 14:40 Cardiology Consult Stat Comment: Consulting Provider: Yong Duran Consulting Physician: Yong Duran Reason for Consult: ??RI Neurology Consult Stat Comment: Consulting Provider: Oscar Aggarwal Consulting Physician: Oscar Aggarwal Reason for Consult: AMS 06/11/18 14:45 Diabetic Education Referral DAILY Comment: DIABETIC EDUCATION Physician Instructions: DIABETIC EDUCATION Reason For Exam: [facility] DM 06/11/18 23:16 Nephrology Consult Routine Comment: Consulting Provider: Dustin Thomas Consulting Physician: Dustin Thomas Reason for Consult: ESRDHDD 06/12/18 14:45 Diabetic Education Referral DAILY Comment: DIABETIC EDUCATION Physician Instructions: DIABETIC EDUCATION Reason For Exam: [facility] DM 06/13/18 14:45 Diabetic Education Referral DAILY Comment: DIABETIC EDUCATION Physician Instructions: DIABETIC EDUCATION Reason For Exam: [facility] DM 06/14/18 14:45 Diabetic Education Referral DAILY Comment: DIABETIC EDUCATION Physician Instructions: DIABETIC EDUCATION Reason For Exam: [facility] DM 06/15/18 14:01 Physician Consult Routine Comment: Consulting Provider: Eamon Duff Consulting Physician: Eamon Duff 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 Consult: 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 pt chokes/vomit after eating 06/15/18 14:25 Otolaryngology Consult Routine Consulting Provider: Geovanny Robles Consulting Physician: Geovanny Robles Reason for Consult: DYSPHAGIA 06/15/18 14:45 Diabetic Education Referral DAILY Comment: DIABETIC EDUCATION Physician Instructions: DIABETIC EDUCATION Reason For Exam: [facility] DM 06/16/18 14:45 Diabetic Education Referral DAILY Comment: DIABETIC EDUCATION Physician Instructions: DIABETIC EDUCATION Reason For Exam: [facility] DM 06/17/18 14:45 Diabetic Education Referral DAILY Comment: DIABETIC EDUCATION Physician Instructions: DIABETIC EDUCATION Reason For Exam: [facility] DM 06/18/18 14:45 Diabetic Education Referral DAILY Comment: DIABETIC EDUCATION Physician Instructions: DIABETIC EDUCATION Reason For Exam: [facility] DM 06/19/18 14:45 Diabetic Education Referral DAILY Comment: DIABETIC EDUCATION Physician Instructions: DIABETIC EDUCATION Reason For Exam: [facility] DM 06/20/18 14:45 Diabetic Education Referral DAILY Comment: DIABETIC EDUCATION Physician Instructions: DIABETIC EDUCATION Reason For Exam: [facility] DM 06/21/18 14:45 Diabetic Education Referral DAILY Comment: DIABETIC EDUCATION Physician Instructions: DIABETIC EDUCATION Reason For Exam: [facility] Time Spent in preparation of Discharge (in minutes): 30 Diagnosis - Discharge Diagnosis (1) Dementia Status: Acute (2) Altered mental status Status: Acute (3) Anemia in CKD (chronic kidney disease) Status: Acute (4) Dementia Status: Acute (5) End stage renal disease Status: Acute (6) Oropharyngeal dysphagia Status: Acute (7) Renal failure Status: Acute (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 Status: Acute (9) ESRD on hemodialysis Status: Chronic (10) Hypertensive CKD, ESRD on dialysis Status: Chronic Hospital Course - Lab Results Lab Results: Micro Results 06/11/18 12:00 Blood Blood Culture - Final NO GROWTH AFTER 5 DAYS 06/11/18 12:00 Blood Gram Stain - Final TEST NOT PERFORMED 06/11/18 11:30 Blood Blood Culture - Final NO GROWTH AFTER 5 DAYS 06/11/18 11:30 Blood Gram Stain - Final TEST NOT PERFORMED Most Recent Lab Values WBC 5.9 10^3/uL (4.5-11.0) 06/15/18 07:00 RBC 3.62 10^6/uL (3.5-6.1) 06/15/18 07:00 Hgb 10.5 g/dL (14.0-18.0) L 06/15/18 07:00 Hct 34.8 % (42.0-52.0) L 06/15/18 07:00 MCV 96.1 fl (80.0-105.0) 06/15/18 07:00 MCH 29.0 pg (25.0-35.0) 06/15/18 07:00 MCHC 30.2 g/dl (31.0-37.0) L 06/15/18 07:00 RDW 15.4 % (11.5-14.5) H 06/15/18 07:00 Plt Count 139 10^3/uL (120.0-450.0) 06/15/18 07:00 MPV 10.0 fl (7.0-11.0) 06/15/18 07:00 Neut % (Auto) 59.6 % (50.0-68.0) 06/15/18 07:00 Lymph % (Auto) 30.6 % (22.0-35.0) 06/15/18 07:00 [place] % (Auto) 6.2 % (1.0-6.0) H 06/15/18 07:00 Eos % (Auto) 3.4 % (1.5-5.0) 06/15/18 07:00 Baso % (Auto) 0.2 % (0.0-3.0) 06/15/18 07:00 Lymph # (Auto) 1.8 (1.2-3.4) 06/15/18 07:00 [place] # (Auto) 0.4 (0.1-0.6) 06/15/18 07:00 Eos # (Auto) 0.2 (0.0-0.7) 06/15/18 07:00 Baso # (Auto) 0.01 K/mm3 (0.0-2.0) 06/15/18 07:00 Absolute Neuts (auto) 3.49 (1.4-6.5) 06/15/18 07:00 PT 15.3 SECONDS (9.4-12.5) H 06/11/18 11:30 INR 1.35 06/11/18 11:30 APTT 52.5 Seconds (26.9-38.3) H 06/15/18 07:00 pO2 33 mm/Hg (30-55) 06/11/18 10:25 VBG pH 7.44 (7.32-7.43) H 06/11/18 10:25 VBG pCO2 48.0 (40-60) 06/11/18 10:25 VBG HCO3 32.6 mmol/l (21-28) H 06/11/18 10:25 VBG Total CO2 34.1 mmol.L (22-28) H 06/11/18 10:25 VBG O2 Sat (Calc) 66.6 % (40-65) H 06/11/18 10:25 VBG Base Excess 7.2 mmol/L (0.0-2.0) H 06/11/18 10:25 VBG Potassium 4.1 mmol/L (3.6-5.2) 06/11/18 10:25 Sodium 142.0 mmol/L (132-148) 06/11/18 10:25 Chloride 103.0 mmol/L (98-107) 06/11/18 10:25 Glucose 260 mg/dl (75-110) H 06/11/18 10:25 Lactate 1.9 mmol/L (0.7-2.1) 06/11/18 10:25 FiO2 21.0 % 06/11/18 10:25 Sodium 139 mmol/L (132-148) 06/15/18 07:00 Potassium 3.8 mmol/L (3.6-5.0) 06/15/18 07:00 Chloride 100 mmol/L (98-107) 06/15/18 07:00 Carbon Dioxide 29 mmol/L (21-33) 06/15/18 07:00 Anion Gap 14 (10-20) 06/15/18 07:00 BUN 32 mg/dL (7-21) H 06/15/18 07:00 Creatinine 5.1 mg/dl (0.8-1.5) H 06/15/18 07:00 Est GFR ( Amer) 13 06/15/18 07:00 Est GFR (Non-Af Amer) 11 06/15/18 07:00 POC Glucose (mg/dL) 94 mg/dL (65-110) 06/12/18 07:50 Random Glucose 85 mg/dL (70-110) 06/15/18 07:00 Hemoglobin A1c 6.4 % (4.2-6.5) 06/12/18 08:30 Fructosamine 341 umol/L (190-270) H 06/12/18 08:30 Uric Acid 6.9 mg/dL (3.5-8.5) 06/16/18 13:15 Calcium 8.7 mg/dL (8.4-10.5) 06/15/18 07:00 Phosphorus 4.0 mg/dL (2.5-4.5) 06/15/18 07:00 Magnesium 1.9 mg/dL (1.7-2.2) 06/15/18 07:00 Total Bilirubin 0.6 mg/dL (0.2-1.3) 06/15/18 07:00 Direct Bilirubin 0.4 mg/dL (0.0-0.4) 06/15/18 07:00 AST 19 U/L (17-59) 06/15/18 07:00 ALT 14 U/L (7-56) 06/15/18 07:00 Alkaline Phosphatase 85 U/L (38-126) 06/15/18 07:00 Total Creatine Kinase 125 U/L (35-230) 06/15/18 07:00 CK-MB (CK-2) 4.0 ng/mL (0.0-3.6) H 06/13/18 07:15 CK-MB (CK-2) % 1.5 % (2.5-3.0) L 06/11/18 22:15 Troponin I 0.43 ng/mL H* D 06/15/18 07:00 NT-Pro-B Natriuret Pep 210356 pg/mL (0-450) H 06/11/18 11:30 Total Protein 7.2 g/dL (5.8-8.3) 06/15/18 07:00 Albumin 3.7 g/dL (3.0-4.8) 06/15/18 07:00 Globulin 3.5 gm/dL 06/15/18 07:00 Albumin/Globulin Ratio 1.1 (1.1-1.8) 06/15/18 07:00 Triglycerides 92 mg/dL (35-160) 06/12/18 08:30 Cholesterol 97 mg/dL (130-200) L 06/12/18 08:30 LDL Cholesterol Direct 44 mg/dL (0-129) 06/12/18 08:30 HDL Cholesterol 27 mg/dL (29-60) L 06/12/18 08:30 Vitamin B12 427 pg/mL (239-931) 06/12/18 08:30 Folate 13.4 ng/mL 06/12/18 08:30 Free T4 1.37 ng/dL (0.78-2.19) 06/12/18 08:30 Thyroxine (T4) 6.0 ug/dL (5.5-11.0) 06/12/18 08:30 TSH 3rd Generation 1.48 mIU/mL (0.46-4.68) 06/12/18 08:30 PTH Intact Whole Molec 118 pg/mL (14-64) H 06/12/18 08:30 Venous Blood Potassium 4.1 mmol/L (3.6-5.2) 06/11/18 10:25 RPR Nonreactive (NONREACTIVE) 06/12/18 08:30 - Hospital Course Hospital Course: PHY-[address] J Carlos Dangelo, 78 M with PMH ESRD on HD MWF, HTN/HLD, advanced dementia, arrthymia s/p pacemaker, TIA, CHF, and COPD c/o AMS. In ED, he was hypotensive at 80s systolic. Per Neurology, his AMS is due to transient cerebral hypoperfusion. He needs to maintain adequate hydration. Nephrology was consulted to prevent fluid overload on HD. He had NSTEMI elected to medical management. Currently chest pain free, no diaphoresis, SOB, N/V/D/C. Pt is found to have Dysphagia. ENT recommendation of thickener. No procedure plan from ENT. Pt can follow up with GI outpatient for possible PEG placement Pt is now pending discharge, pending barrium swallow. If the study is normal, he can go [facility], upon GI clearance. He should maintain aspiration precaution, sit upright at meals and 2 hours after meal, on puree and nectar thickener. He should be on protonix for GERD symptoms. For his CAD/PAD, he should continue on ASA 325, Coreg, Lipitor For DM, A1C is 6.4. He is on ISSS with terminal block assembler insulin 10 HS. gabapentin is for DM neuropathy and lidoderm for chronic pain. FOr COPD, he is on xopenex q6 JERE. He will get augmentin PO for bronchitis. For orthostatic hypotension, he is on midodrine 5q8 For ESRD on HD, continue HD, phoslo, per nephro management For mood, continue Quetiatpne For BPH, continue Flomax For dementia, continue donepezil, memantine Discharge Exam - Head Exam Head Exam: ATRAUMATIC, NORMAL INSPECTION - Eye Exam Eye Exam: EOMI, Normal appearance, PERRL. absent: Scleral icterus Pupil Exam: NORMAL ACCOMODATION - ENT Exam ENT Exam: Mucous Membranes Moist - Neck Exam Additional comments: supple, no jvd - Respiratory Exam Respiratory Exam: Decreased Breath Sounds (lung bases), Clear to PA & Lateral, NORMAL BREATHING PATTERN. absent: Rales, Rhonchi, Wheezes - Cardiovascular Exam Cardiovascular Exam: REGULAR RHYTHM, +S1, +S2 - GI/Abdominal Exam GI & Abdominal Exam: Normal Bowel Sounds, Soft, Unremarkable. absent: Tenderness - Extremities Exam Extremities exam: normal capillary refill, pedal pulses present - Back Exam Back exam: absent: CVA tenderness (L), CVA tenderness (R) - Neurological Exam Neurological exam: Alert, Oriented x3 - Psychiatric Exam Psychiatric exam: Normal Affect, Normal Mood - Skin Skin Exam: Dry, Warm Discharge Plan - Discharge Medications Prescriptions: Levalbuterol [Xopenex] 0.63 mg IH [id number] #120 neb Acetaminophen [Tylenol 325mg tab] 650 mg PO Q6 PRN #120 tab PRN Reason: TEMP>=99.5F Amoxicillin/Clavulanate [Augmentin 875 MG-125 MG] 1 tab PO BID #20 tab Aspirin 325 mg PO DAILY #30 tab Atorvastatin [Lipitor] 40 mg PO HS #30 tab Calcium Acetate [Phoslo] 667 mg PO TID #90 tab Carvedilol [Coreg] 12.5 mg PO BID #60 tab Docusate [Colace] 100 mg PO TID #30 cap Donepezil [Aricept] 10 mg PO HS #30 tab Gabapentin [Neurontin] 100 mg PO HS #30 cap Insulin Glargine,Hum.rec.anlog [Toujeo Max Solostar] 10 unit SQ HS #1 insuln.pen Lidocaine 5% [Lidoderm] 1 ea TD DAILY #30 patch Memantine [Namenda] 10 mg PO BID #60 tab Midodrine [Proamatine] 5 mg PO Q8H #90 tab Pantoprazole [Protonix EC Tab] 40 mg PO 0600 #30 ect QUEtiapine [Seroquel] 25 mg PO HS #15 tab Starch [Instant Food Thickener] 1 packet PO AC 30 Days powder Tamsulosin [Flomax] 0.4 mg PO DAILY #30 cap - Follow Up Plan Condition: FAIR Disposition: HOME/ ROUTINE Instructions: Transient Ischemic Attack (DC), Sepsis, Adult (DC), Myocardial Infarction (DC) Additional Instructions: MAY DISCHARGE HOME AFTER CLEARED BY GI REFER TO [facility] UPON DISCHARGE FOLLOW UP WITHIN 1 WEEK DISCHARGE MEDS PER NEW SCRIPTS AND UPDATED AMBULATORY ORDERS Referrals: Oleg Whitman MD [Staff Provider] - 1 Week (MAY DISCHARGE HOME AFTER CLEARED BY GI REFER TO [facility] UPON DISCHARGE FOLLOW UP WITHIN 1 WEEK DISCHARGE MEDS PER NEW SCRIPTS AND UPDATED AMBULATORY ORDERS )
[2018-06-17] MEDS ORDERED: Barium Sulfate for Susp 96% w/w 176g Bottle PR ONE (11:18)
[2018-06-17 12:19] VITALS: RESP 18
--- NOTE | 2018-06-17 12:54 | RAD ---
Date of service: 06/17/2018 HISTORY: Dysphagia. COMPARISON: None. TECHNIQUE: Single contrast esophagram was performed. FINDINGS: Patient tolerated procedure well. ESOPHAGUS: Esophageal mucosa appeared preserved. No evidence of stricture or mass lesion. HIATAL HERNIA: None demonstrated. GASTROESOPHAGEAL REFLUX: Not demonstrated. OTHER FINDINGS: None. IMPRESSION: Unremarkable esophagram.
[2018-06-17] MEDS ORDERED: Doxercalciferol 4 mcg/2 ml Inj IV ONE (13:44)
[2018-06-17 13:56] LABS: HEMOGLOBIN 10.3 g/dL (14.0-18.0); MEAN CORPUSCULAR HEMOGLOBIN 29.3 pg (25.0-35.0); MEAN CORPUSCULAR HGB CONC 31.2 g/dl (31.0-37.0); MEAN PLATELET VOLUME 10.4 fl (7.0-11.0); RBC 3.51 10^6/uL (3.5-6.1); RED CELL DISTRIBUTION WIDTH 15.5 % (11.5-14.5); WHITE BLOOD COUNT 6.4 10^3/uL (4.5-11.0)
[2018-06-17 14:06] LABS: CALCIUM 8.4 mg/dL (8.4-10.5)
--- NOTE | 2018-06-17 15:03 | PN ---
DATE: 06/17/2018 SUBJECTIVE The patient is lying in bed, awake, alert. He is asking for something to eat. He has been n.p.o. PHYSICAL EXAMINATION: VITAL SIGNS: Reveal temperature of 98.5, blood pressure 164/69, heart rate is 63. HEENT: Reveal sclerae to be white. Oral mucosa is dry. NECK: Supple. CHEST: Reveal distant breath sounds. HEART: Exam reveals regular rate and rhythm. ABDOMEN: Soft, obese, nontender. No mass. EXTREMITIES: Show no edema. LABORATORY DATA: Reveal white blood cell count 5.9, hemoglobin 10.5. Chemistries reveal BUN 32, creatinine 5.1. IMPRESSION: An 78-year-old male admitted to the hospital with altered mental status, hypotension, positive troponins, end-stage renal disease, on hemodialysis, with oropharyngeal dysphagia. The patient was able to tolerate a pureed diet when evaluated by Ears, Nose, Throat. He was able to drink water for me yesterday without any aspiration. RECOMMENDATIONS: 1. We will request an esophagram. 2. We will start the patient on pureed diet with nectar-thick liquids. Eamon Duff MD
[2018-06-17 17:47] VITALS: BP 152/61; PULSE 60
[2018-06-17 17:51] VITALS: TEMP 98.7
--- NOTE | 2018-06-17 18:08 | PN ---
DATE: 06/17/2018 SUBJECTIVE: The patient is about to be started on hemodialysis in the dialysis unit. He denies chest pain. PHYSICAL EXAMINATION: VITAL SIGNS: Blood pressure 92/55, heart rate 64, temperature 97.8 and respiration 18. HEENT: Pale conjunctivae. CHEST: Absent breath sounds over the bases. HEART: S1 and S2, regular. ABDOMEN: Soft. EXTREMITIES: 1+ pitting edema. ASSESSMENT: 1. Non-ST elevation myocardial infarction. 2. End-stage renal disease, on hemodialysis. 3. Hypertension and diabetes mellitus. 4. Chronic atrial fibrillation. 5. Moderate pulmonary hypertension. RECOMMENDATIONS: Continue aspirin 81 mg once a day, Coreg 12.5 mg twice a day, subcutaneous heparin 5000 units every 8 hours, Neurontin 100 mg daily and PhosLo 1 tab q.i.d. Start Eliquis 2.5 mg twice a day. Alec Stanford MD
--- NOTE | 2018-06-17 18:16 | PN ---
DATE: 06/17/2018 SUBJECTIVE: The patient is seen in the dialysis unit. He is awake. He is alert. He is confused. He is complaining of pain in his feet. PHYSICAL EXAMINATION: GENERAL: Elderly male lying in bed in the dialysis unit. VITAL SIGNS: Blood pressure 92/55, heart rate 64, respiratory rate 18, and temperature 97.8. HEENT: Normocephalic and atraumatic. Positive pallor. NECK: Supple. No JVD. LUNGS: Bilateral equal air entry, bilateral rhonchi. No rales. CARDIAC: S1 and S2, regular rate and rhythm. No murmur. No rub. ABDOMEN: Obese, distended, soft, and nontender. Bowel sounds present. EXTREMITIES: No lower extremity edema. INTAKE AND OUTPUT: Not charted. LABORATORY DATA: WBC 6.4, hemoglobin 10, hematocrit 33, and platelets 142. Sodium 136, potassium 3.8, chloride 98, CO2 of 29, BUN 35, creatinine 5.6, glucose 104, calcium 8.4, and phosphorus 4.1. CURRENT MEDICATIONS: Aricept, Colace, Coreg 12.5 b.i.d., D5 half-normal saline at 40, Ecotrin, Eliquis 2.5 b.i.d., Flomax, lidocaine, Lipitor 40, Namenda 10 b.i.d., gabapentin, PhosLo, ProAmatine 5 every 8 hours, Protonix, Seroquel, Tylenol, and Xopenex. ASSESSMENT: 1. Non-ST elevation myocardial infarction. 2. Altered mental status. 3. Hypotension. 4. End-stage renal disease. 5. Noninsulin-dependent diabetes mellitus. 6. Anemia of chronic kidney disease. 7. Dementia. PLAN: 1. Continue antibiotics as per ID recommendations. 2. Continue ProAmatine. 3. Management of non-ST elevation [place] as per Cardiology. 4. Stable dialysis. 5. Limit pain medication. Yadira Fox MD
--- NOTE | 2018-06-17 21:52 | DS ---
HISTORY OF PRESENT ILLNESS: The patient is in 263, bed 1. Overnight nurse's notes were reviewed. The patient was seen by GI and ENT. The patient was cleared and the patient had fiberoptic laryngoscopy by ENT. No cause of oropharyngeal dysphagia was noted. The patient was given trial of liquid and ENT which the patient tolerated. PHYSICAL EXAMINATION: VITAL SIGNS: T-max 98.8. Telemetry shows sinus rhythm with T-wave ventricular paced rhythm, heart rate 60s to 70s. Blood pressure 150/75, 164/69, respiration 19, O2 sat 97%. HEENT: Head is normocephalic, atraumatic. HEENT examination shows pinkish pale conjunctivae. Anicteric sclerae. No oropharyngeal lesion. Possible macroglossia noted. NECK: No neck rigidity. CHEST: Kyphosis. Positive right upper chest pacemaker noted. Positive kyphosis noted. Positive rhonchi noted upper lung [place], left more than the right. CARDIOVASCULAR: S1, S2, regular rhythm, questionable systolic murmur at left sternal border, right second intercostal space, left second intercostal space. ABDOMEN: Soft, protuberant. Positive bowel sounds. No palpable organomegaly noted. GENITALIA: Male. RECTAL: Deferred. EXTREMITIES: Positive left upper extremity AV fistula, positive thrill. Lower extremity examination shows trace swelling of the ankles and feet. No pitting edema noted. MUSCULOSKELETAL: Shows elevated body mass index. NEUROLOGIC: The patient is alert, awake, responsive, episodic confusion, disoriented noted by the nurse during overnight last 24 to 48 hours. Gait examination is not tested. DIAGNOSTICS: Over the last 24 hours, WBC 5.9, hemoglobin/hematocrit 10.5, 34.8, platelet 139. Sodium 139, potassium 3.8, chloride 100, CO2 29, BUN 32, creatinine 5.1. Troponin 0.43. LFTs are okay. The patient's CT of the neck soft tissue and CT of the chest noted and reviewed. FINAL IMPRESSION, PLAN AND DISCHARGE DIAGNOSES: 1. Acute non-ST elevation myocardial infarction with elevated troponin for medical therapy as per Cardiology. 2. Episodic choking probably secondary to severe esophagitis and gastroesophageal reflux. 3. Cervical spine degenerative disk disease. 4. Left lower lobe questionable and possible pneumonia consolidation, possible chronic. 5. Upper lobe emphysema. 6. Mild mediastinal lymphadenopathy. 7. Normocytic anemia. 8. End-stage renal disease, hemodialysis dependent. 9. Acute non-ST elevation myocardial infarction with elevated troponin. 10. Insulin-requiring diabetes mellitus. 11. History of advanced dementia with encephalopathy. 12. Acute exacerbation of delirium. 13. Poor compliance. 14. Questionable behavioral disorders with episodic agitation. 15. Gait dysfunction. 16. Deconditioning. 17. Peripheral vascular disease of the lower extremity. 18. End-stage renal disease, hemodialysis dependent by the left upper extremity arteriovenous fistula three times a week. 19. Midodrine dependent hypotension. 20. Secondary hyperparathyroidism with hyperphosphatemia. 21. Macroglossia. 24. Delirium. 25. Noncompliance. The patient will be considered for discharge after cleared by Gastroenterology and after modified barium swallow is negative, which was ordered by Gastroenterology. We have spoken to the patient's . The patient's has also discussed the patient's discharge disposition with Compliance Paralegal. The patient is not eligible for rehab. The patient's has requested that she will take the patient home with visiting nurse, home health aide, home PT. Discharge medications are as per updated ambulatory orders, which will new scripts which will be given to the patient's upon discharge. The patient's has been advised to hold off the patient's all the antihypertensive medicine at this time because of hypotension. The patient's has been advised that the patient needs followup within [address] Whitman. The patient is to follow up with the dialysis center for dialysis three times a week. All the details have been discussed with the patient's during this hospitalization on multiple occasions. The patient's has been told about overall guarded to poor prognosis decompensated state and declining overall medical condition which she acknowledged understand. Time spent in the discharge process 45 minutes. Dictated and electronically signed, not read. Oleg Whitman MD
== END 2018-06-17 18:19 | disposition home or self-care (01) | DRG 280 ==
LOC: ED 10:16 → ERH 13:45 → 2RNO 17:17
PROVIDERS: ADMIT Internal Medicine; ATTEND Internal Medicine
DX: I21.4 Non-ST elevation (NSTEMI) myocardial infarction (principal); N18.6 End stage renal disease; G93.41 Metabolic encephalopathy; A41.9 Sepsis, unspecified organism; N25.81 Secondary hyperparathyroidism of renal origin; I13.2 Hypertensive heart and chronic kidney disease with heart failure and with stage 5 chronic kidney disease, or end stage renal disease; I50.30 Unspecified diastolic (congestive) heart failure; K21.0 Gastro-esophageal reflux disease with esophagitis; M50.30 Other cervical disc degeneration, unspecified cervical region; J43.9 Emphysema, unspecified; R59.0 Localized enlarged lymph nodes; E11.21 Type 2 diabetes mellitus with diabetic nephropathy; E11.51 Type 2 diabetes mellitus with diabetic peripheral angiopathy without gangrene; E11.621 Type 2 diabetes mellitus with foot ulcer; E11.65 Type 2 diabetes mellitus with hyperglycemia; E11.22 Type 2 diabetes mellitus with diabetic chronic kidney disease; I95.1 Orthostatic hypotension; E83.39 Other disorders of phosphorus metabolism; F03.90 Unspecified dementia, unspecified severity, without behavioral disturbance, psychotic disturbance, mood disturbance, and anxiety; D63.1 Anemia in chronic kidney disease; R13.12 Dysphagia, oropharyngeal phase; I45.5 Other specified heart block; E78.5 Hyperlipidemia, unspecified; E66.01 Morbid (severe) obesity due to excess calories; I25.10 Atherosclerotic heart disease of native coronary artery without angina pectoris; E78.00 Pure hypercholesterolemia, unspecified; E86.1 Hypovolemia; L97.529 Non-pressure chronic ulcer of other part of left foot with unspecified severity; I27.20 Pulmonary hypertension, unspecified; R44.1 Visual hallucinations; M19.90 Unspecified osteoarthritis, unspecified site; I48.2 Chronic atrial fibrillation; Z79.4 Long term (current) use of insulin; Z99.2 Dependence on renal dialysis; Q38.2 Macroglossia; Z91.19 Patient's noncompliance with other medical treatment and regimen; Z95.0 Presence of cardiac pacemaker; Z68.31 Body mass index [BMI] 31.0-31.9, adult; Z87.891 Personal history of nicotine dependence; Z89.422 Acquired absence of other left toe(s)

== ENCOUNTER 2018-08-08 12:06 | Observation (INO) | payer MEDICARE, BC ==
[2018-08-08 12:08] VITALS: BMI 32.5
--- NOTE | 2018-08-08 13:09 | ED PDOC ---
Arrival/HPI - General Chief Complaint: Medical Clearance Time Seen by Provider: 08/08/18 12:20 Historian: Patient, Other (Friend) - History of Present Illness Narrative History of Present Illness (Text): 08/08/18 12:20 Shakeel Dangelo is an 78 year old male, with a past medical history of ESRD on hemodialysis MWF, left upper extremity av fistula, hypertension, hyperlipidemia, dementia, pacemaker, TIA, CHF, COPD not on home oxygen, who presents to the emergency department with hypotensive episode today and chronic left foot pain. Patient's blood pressure recorded at home by nurse read 90/40's. Upon arrival, patient's blood pressure reads 127 / 53. Per friend at bedside, patient visited by research librarian yesterday, without any major changes. Friend is concerned that patient's blood pressure dropped due to stress about wound care. Patient and friend are unsure of recent antibiotics use. Patient's last dialysis yesterday. No headache or dizziness. No fevers, chills, night sweats, neck stiffness. No chest pain, shortness of breath, or cough. No abdominal pain, nausea, vomiting, or diarrhea. No dark or bloody stool, dysuria, hematuria. No back pain, neck pain. No other complaints. PMD: Dr. 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 - Pulmonary Hx Respiratory Disorders: Yes (respiratory distress) Hx Pneumonia: Yes - Neurological Hx Neurological Disorder: No - HEENT Hx HEENT Disorder: Yes (eyeglasses) - Renal Hx Renal Disorder: Yes (esrd) Hx Dialysis: Yes ([facility] f) Type of Dialysis Access: ANNA AV shunt Date of Last Dialysis Treatment: 08/07/18 - Endocrine/Metabolic Hx Endocrine Disorders: Yes (hypoparathyroidism) - Hematological/Oncological Hx Blood Disorders: Yes (sepsis) Hx Anemia: Yes (blood transfusion) - Integumentary Hx Dermatological Disorder: Yes Other/Comment: diabetic foot ulcers multiple left foot, amputation and debridement of necrotic tissue 02/01/18 - Musculoskeletal/Rheumatological Hx Back Pain: Yes Hx Herniated Disk: Yes (lumbar spine) Hx Unsteady Gait: Yes (walker) - Gastrointestinal Hx Gastrointestinal Disorders: Yes (obese) - Genitourinary/Gynecological Hx Genitourinary Disorders: Yes (oliguria) - Psychiatric Hx Psychophysiologic Disorder: No Hx Substance Use: No - Surgical History Hx Amputation: Yes (left ft 5th toe 02/01/18) Other/Comment: anna av shunt - Anesthesia Hx Anesthesia Reactions: No Hx Malignant Hyperthermia: No - Suicidal Assessment Feels Threatened In Home Enviroment: No Family/Social History - Physician Review Nursing Documentation Reviewed: Yes Family/Social History: Unknown Family HX Smoking Status: Former Smoker Hx Alcohol Use: No Hx Substance Use: No Allergies/Home Meds Allergies/Adverse Reactions: Allergies No Known Allergies Allergy (Verified 06/11/18 10:32) Review of Systems - Physician Review All systems were reviewed & negative as marked: Yes - Review of Systems Constitutional: absent: Fevers, Night Sweats, Other (chills) Respiratory: absent: SOB, Cough Cardiovascular: Other (hypotensive episode today). absent: Chest Pain Gastrointestinal: absent: Abdominal Pain, Diarrhea, Nausea, Vomiting, Hematochezia, Other (melena) Genitourinary Male: absent: Dysuria, Hematuria Musculoskeletal: Arthralgias (left foot pain, chronic). absent: Back Pain, Neck Pain, Other (neck stiffness) Neurological: absent: Headache, Dizziness Physical Exam Vital Signs Reviewed: Yes Vital Signs Temp Pulse Resp BP Pulse Ox 08/08/18 12:27 98.3 F 60 18 127/53 L 99 Temperature: Afebrile Blood Pressure: Normal Pulse: Regular Respiratory Rate: Normal Appearance: Positive for: Well-Appearing, Non-Toxic, Comfortable Pain Distress: None Mental Status: Positive for: Alert and Oriented X 3 - Systems Exam Head: Present: Atraumatic, Normocephalic Pupils: Present: PERRL Extroacular Muscles: Present: EOMI Conjunctiva: Present: Normal Mouth: Present: Moist Mucous Membranes Neck: Present: Normal Range of Motion. No: Meningeal Signs, MIDLINE TENDERNESS Respiratory/Chest: Present: Clear to Auscultation, Good Air Exchange. No: Respiratory Distress, Accessory Muscle Use, Wheezes, Rales, Rhonchi Cardiovascular: Present: Regular Rate and Rhythm, Normal S1, S2. No: Murmurs, Rub, Gallop Abdomen: Present: Normal Bowel Sounds. No: Tenderness, Distention, Peritoneal Signs, Rebound, Guarding Back: Present: Normal Inspection. No: CVA Tenderness, Midline Tenderness Upper Extremity: Present: Normal ROM, NORMAL PULSES, Neurovascularly Intact, Capillary Refill < 2s, Other (left upper extremity AV fistula; good bruit, good thrill, non erythematous, noncrepitant). No: Cyanosis, Edema Lower Extremity: Present: NORMAL PULSES, Normal ROM, Tenderness (left lower extremity tender to palpation. No ascending cellulitis), Neurovascularly Intact, Capillary Refill < 2 s, Other (Left foot 5th and 3rd digit amputation, good n/v status. No crepitus or erythema). No: Edema Neurological: Present: GCS=15, CN II-XII Intact, Speech Normal, Motor Func Grossly Intact, Normal Sensory Function Skin: Present: Warm, Dry, Normal Color. No: Rashes Psychiatric: Present: Alert, Oriented x 3, Normal Insight, Normal Concentration Medical Decision Making ED Course and Treatment: 08/08/18 12:20 Impression: Patient is an 78 year old male, with a past medical history of ESRD on hemodialysis MWF, left upper extremity av fistula, hypertension, hyperlipidemia, dementia, pacemaker, TIA, CHF, COPD not on home oxygen, who presents to the emergency department complaining of hypotensive episode today and chronic left foot pain. No headache or dizziness. No fevers, chills, night sweats, neck stiffness. No chest pain, shortness of breath, or cough. No nausea, vomiting, or diarrhea. No dark or bloody stool. On exam, AV fistula on left upper extremity with good bruit and thrill, is noncrepitant, non erythematous. Good n/v status to LLE foot no ascending cellulitis noted. Exam otherwise unremarkable. Plan: -- EKG -- VBG -- Labs -- Chest X-Ray 2V -- Left Foox X-Ray 3 Views -- Urinalysis -- Reassess and disposition Prior Visits: Notes and results from previous visits were reviewed. Progress Notes: 08/08/18 13:52 elevated lipase, mildly elevated lactic IVF ordered, pt in NAD no elevated WBC XRay Chest and LE largley unremarkable no signs of crepitus noted. Pt denies any abd pain: given dementia however will seek CT paged Dr. Whitman for likely obs: serial lactics likely req and well as monitoring of lipase, followup with CT 08/08/18 13:55 pt in NAD Discussed case with Dr. Whitman (PMD),endorsed: elevated lactic, lipase, pending ct abd pelv. Dr. Whitman agrees with ED management plan. Patient admitted to tele obs. 08/08/18 14:55 CT Abdomen unremarkable - RAD Interpretation Radiology Orders: 08/08/18 12:30 CHEST TWO VIEWS (PA/LAT) [RAD] Stat 08/08/18 12:37 FOOT LEFT 3 VIEWS ROUTINE [RAD] Stat - EKG Interpretation EKG Interpretation (Text): 08/08/18 12:47 Reviewed EKG, shows: Rate: 60 BPM Rhythm: V-Paced Interpretation: LBBB. No STEMI. Interpreted by ED Physician: Yes Type: 12 lead EKG - Scribe Statement The provider has reviewed the documentation as recorded by the Scribe Tor Walker All medical record entries made by the Scribe were at my direction and personally dictated by me. I have reviewed the chart and agree that the record accurately reflects my personal performance of the history, physical exam, medical decision making, and the department course for this patient. I have also personally directed, reviewed, and agree with the discharge instructions and disposition. Disposition/Present on Arrival - Present on Arrival Any Indicators Present on Arrival: No History of DVT/PE: No History of Uncontrolled Diabetes: No Urinary Catheter: No History of Decub. Ulcer: No History Surgical Site Infection Following: None - Disposition Have Diagnosis and Disposition been Completed?: No Diagnosis: Elevated lipase, Elevated lactic acid level Disposition: HOSPITALIZED Disposition Time: 13:52 Patient Problems: Current Active Problems Problem Status Onset Elevated lipase Acute Elevated lactic acid level Acute Condition: STABLE
[2018-08-08 13:10] LABS: VENOUS BLOOD GAS BASE EXCESS 4.3 mmol/L (0.0-2.0); VENOUS BLOOD GAS PO2 28 mm/Hg (30-55); VENOUS BLOOD PH 7.35 (7.32-7.43)
[2018-08-08 13:13] LABS: VENOUS BLOOD GAS BASE EXCESS 3.7 mmol/L (0.0-2.0); VENOUS BLOOD GAS PO2 25 mm/Hg (30-55); VENOUS BLOOD PH 7.36 (7.32-7.43)
[2018-08-08 13:16] LABS: BASO # 0.04 K/mm3 (0.0-2.0); BASO % 0.4 % (0.0-3.0); EOS # 0.2 (0.0-0.7); EOS % 1.9 % (1.5-5.0); LYMPH # 2.5 (1.2-3.4); LYMPH % 27.9 % (22.0-35.0); MEAN CELL VOLUME 93.9 fl (80.0-105.0); MEAN CORPUSCULAR HEMOGLOBIN 28.2 pg (25.0-35.0); MEAN PLATELET VOLUME 11.7 fl (7.0-11.0); MONO # 0.7 (0.1-0.6); MONO % 7.5 % (1.0-6.0); RBC 4.26 10^6/uL (3.5-6.1); WHITE BLOOD COUNT 8.9 10^3/uL (4.5-11.0)
[2018-08-08 13:23] LABS: ALB/GLOB RATIO 1.1 (1.1-1.8); ALBUMIN 4.3 g/dL (3.0-4.8); CALCIUM 8.9 mg/dL (8.4-10.5)
[2018-08-08 13:34] LABS: TROPONIN I 0.07 ng/mL
--- NOTE | 2018-08-08 13:48 | RAD ---
Date of service: 08/08/2018 PROCEDURE: Left Foot Radiographs. HISTORY: L foot infection COMPARISON: 01/24/2018 TECHNIQUE: 3 views obtained. FINDINGS: BONES: Previous amputation of the 5th toe and 3rd distal metatarsal. No acute findings JOINTS: Normal. SOFT TISSUES: Normal. OTHER FINDINGS: None. IMPRESSION: Previous amputation of the 5th toe and 3rd distal metatarsal. No acute findings
--- NOTE | 2018-08-08 13:49 | RAD ---
Date of service: 08/08/2018 HISTORY: hypotn COMPARISON: 06/11/2018 TECHNIQUE: Chest PA and lateral views FINDINGS: LUNGS: No active pulmonary disease. PLEURA: No significant pleural effusion identified. No pneumothorax apparent. CARDIOVASCULAR: Mild aortic calcification Mild cardiomegaly. No pulmonary vascular congestion. OSSEOUS STRUCTURES: No significant abnormalities. VISUALIZED UPPER ABDOMEN: Single lead pacemaker OTHER FINDINGS: None. IMPRESSION: No active disease.
[2018-08-08] MEDS ORDERED: Sodium Chloride 0.9% 500 ML IV SCH (14:00)
--- NOTE | 2018-08-08 14:58 | CT ---
Date of service: 08/08/2018 PROCEDURE: CT Abdomen and Pelvis without intravenous contrast HISTORY: elevated lipase, demented, hypotn earlier COMPARISON: None. TECHNIQUE: Without contrast.. Contrast dose: Radiation dose: Total exam DLP = 1286.88 mGy-cm. This CT exam was performed using one or more of the following dose reduction techniques: Automated exposure control, adjustment of the mA and/or kV according to patient size, and/or use of iterative reconstruction technique. FINDINGS: LOWER THORAX: Unremarkable. LIVER: Unremarkable. No gross lesion or ductal dilatation. GALLBLADDER AND BILE DUCTS: Unremarkable. PANCREAS: Unremarkable. No gross lesion or ductal dilatation. SPLEEN: Unremarkable. ADRENALS: Unremarkable. No mass. KIDNEYS AND URETERS: Unremarkable. No hydronephrosis. No solid mass. VASCULATURE: Unremarkable. No aortic aneurysm. Diffuse aortic calcification BOWEL: Unremarkable. No obstruction. No gross mural thickening. APPENDIX: Unremarkable. Normal appendix. PERITONEUM: Unremarkable. No free fluid. No free air. LYMPH NODES: Unremarkable. No enlarged lymph nodes. BLADDER: There is mural thickening in the bladder which may represent outlet obstruction or cystitis REPRODUCTIVE: Unremarkable. BONES: Multilevel disc degeneration OTHER FINDINGS: None. IMPRESSION: No acute intra-abdominal findings. Mural thickening in the urinary bladder
[2018-08-08 16:26] LABS: VENOUS BLOOD GAS BASE EXCESS 2.4 mmol/L (0.0-2.0); VENOUS BLOOD GAS PO2 49 mm/Hg (30-55); VENOUS BLOOD PH 7.32 (7.32-7.43)
--- NOTE | 2018-08-08 19:10 | CARD ---
APPROVED REPORT Date of service: 08/08/2018 EKG Measurement Heart [id number] <Conclusion> Ventricular paced rhythm with 1:1 capture Abnormal ECG
[2018-08-08] MEDS: Levalbuterol 0.63 MG/3 ML Inhal Soln UD IH SCH (19:40)
[2018-08-08] MEDS: Insulin Detemir 100 units/ml Vial (Levemir) SC SCH (22:43)
[2018-08-08] MEDS ORDERED: Influenza Vaccine 60 mcg/0.5 mL SYR (4YR UP) IM ONE (22:49)
[2018-08-08] MEDS ORDERED: Pneumococcal 23-Valent Vaccine IM ONE (22:49)
[2018-08-09] MEDS: Levalbuterol 0.63 MG/3 ML Inhal Soln UD IH SCH ×3 (00:59→13:13)
--- NOTE | 2018-08-09 03:33 | CP.PCM.HP ---
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 - PULMONARY Hx Respiratory Disorders: Yes (respiratory distress) Hx Pneumonia: Yes - NEUROLOGICAL Hx Neurological Disorder: Yes (NEUROPATHY BILATERAL LE) Hx Dementia: Yes Hx Transient Ischemic Attacks (TIA): Yes - HEENT Hx HEENT Problems: Yes (eyeglasses) - RENAL Hx Chronic Kidney Disease: Yes (esrd) Hx Dialysis: Yes ([facility]) Date of Last Dialysis Treatment: 08/07/18 - ENDOCRINE/METABOLIC Hx Endocrine Disorders: Yes (hypoparathyroidism) - HEMATOLOGICAL/ONCOLOGICAL Hx Blood Disorders: Yes (sepsis) Hx Anemia: Yes (blood transfusion) - INTEGUMENTARY Hx Dermatological Problems: Yes Other/Comment: diabetic foot ulcers multiple left foot, amputation and debridement of necrotic tissue 02/01/18 - MUSCULOSKELETAL/RHEUMATOLOGICAL Hx Falls: Yes - GASTROINTESTINAL Hx Gastrointestinal Disorders: Yes (obese) Other/Comment: CONSTIPATION,INCONTINENT - GENITOURINARY/GYNECOLOGICAL Hx Genitourinary Disorders: Yes (oliguria) Hx Prostate Problems: Yes (BPH) - PSYCHIATRIC Hx Substance Use: No - SURGICAL HISTORY Hx Surgeries: Yes Hx Amputation: Yes (left ft 5th toe 02/01/18,AMPUTATED ALL LEFT FOOT TOES.) Other/Comment: sriram av shunt - ANESTHESIA Hx Anesthesia Reactions: No Hx Malignant Hyperthermia: No Meds Allergies/Adverse Reactions: Allergies Allergy/AdvReac Type Severity Reaction Status Date / Time No Known Allergies Allergy Verified 08/08/18 20:15 Results - Vital Signs Recent Vital Signs: Last Vital Signs Temp 97.5 F L 08/09/18 00:01 Pulse 60 08/09/18 00:01 Resp 18 08/09/18 00:01 BP 104/54 L 08/09/18 00:01 Pulse Ox 94 L 08/09/18 00:01 - Labs Result Diagrams: 08/08/18 12:50 08/08/18 12:50 Labs: Laboratory Results - last 24 hr 08/08/18 08/08/18 08/08/18 12:50 12:50 12:55 WBC 8.9 D RBC 4.26 Hgb 12.0 L Hct 40.0 L MCV 93.9 MCH 28.2 MCHC 30.0 L RDW 16.0 H Plt Count 193 MPV 11.7 H Neut % (Auto) 62.3 Lymph % (Auto) 27.9 [place] % (Auto) 7.5 H Eos % (Auto) 1.9 Baso % (Auto) 0.4 Lymph # (Auto) 2.5 [place] # (Auto) 0.7 H Eos # (Auto) 0.2 Baso # (Auto) 0.04 Absolute Neuts (auto) 5.54 pO2 28 L VBG pH 7.35 VBG pCO2 57.0 VBG HCO3 31.5 H VBG Total CO2 VBG O2 Sat (Calc) 46.0 VBG Base Excess 4.3 H VBG Potassium Glucose Lactate FiO2 Crit Value Called To Crit Value Called By Blood Gas Notified Time Sodium 139 Potassium 5.1 H Chloride 93 L Carbon Dioxide 29 Anion Gap 22 H BUN 56 H Creatinine 5.6 H Est GFR ( Amer) 12 Est GFR (Non-Af Amer) 10 POC Glucose (mg/dL) Random Glucose 169 H Lactic Acid Calcium 8.9 Total Bilirubin 0.5 AST 19 ALT 11 Alkaline Phosphatase 89 Troponin I 0.07 D Total Protein 8.1 Albumin 4.3 Globulin 3.8 Albumin/Globulin Ratio 1.1 Lipase 532 H Venous Blood Potassium Blood Type Antibody Screen BBK History Checked 08/08/18 08/08/18 08/08/18 12:55 13:47 16:10 WBC RBC Hgb Hct MCV MCH MCHC RDW Plt Count MPV Neut % (Auto) Lymph % (Auto) [place] % (Auto) Eos % (Auto) Baso % (Auto) Lymph # (Auto) [place] # (Auto) Eos # (Auto) Baso # (Auto) Absolute Neuts (auto) pO2 25 L 49 VBG pH 7.36 7.32 VBG pCO2 54.0 58.0 VBG HCO3 30.5 H 29.9 H VBG Total CO2 32.2 H 31.7 H VBG O2 Sat (Calc) 41.3 82.9 H VBG Base Excess 3.7 H 2.4 H VBG Potassium 4.9 4.6 Glucose 177 H 249 H Lactate 2.2 H 2.2 H FiO2 21.0 21.0 Crit Value Called To Danae caballero Crit Value Called By Etq Blood Gas Notified Time 1625 Sodium 136.0 137.0 Potassium Chloride 95.0 L 97.0 L Carbon Dioxide Anion Gap BUN Creatinine Est GFR ( Amer) Est GFR (Non-Af Amer) POC Glucose (mg/dL) Random Glucose Lactic Acid Calcium Total Bilirubin AST ALT Alkaline Phosphatase Troponin I Total Protein Albumin Globulin Albumin/Globulin Ratio Lipase Venous Blood Potassium 4.9 4.6 Blood Type O POSITIVE Antibody Screen Negative BBK History Checked Patient has bt 08/08/18 08/08/18 08/08/18 17:03 21:02 21:02 WBC RBC Hgb Hct MCV MCH MCHC RDW Plt Count MPV Neut % (Auto) Lymph % (Auto) [place] % (Auto) Eos % (Auto) Baso % (Auto) Lymph # (Auto) [place] # (Auto) Eos # (Auto) Baso # (Auto) Absolute Neuts (auto) pO2 VBG pH VBG pCO2 VBG HCO3 VBG Total CO2 VBG O2 Sat (Calc) VBG Base Excess VBG Potassium Glucose Lactate FiO2 Crit Value Called To Crit Value Called By Blood Gas Notified Time Sodium Potassium Chloride Carbon Dioxide Anion Gap BUN Creatinine Est GFR ( Amer) Est GFR (Non-Af Amer) POC Glucose (mg/dL) 262 H Random Glucose Lactic Acid 1.4 Calcium Total Bilirubin AST ALT Alkaline Phosphatase Troponin I 0.06 Total Protein Albumin Globulin Albumin/Globulin Ratio Lipase Venous Blood Potassium Blood Type Antibody Screen BBK History Checked 08/08/18 21:58 WBC RBC Hgb Hct MCV MCH MCHC RDW Plt Count MPV Neut % (Auto) Lymph % (Auto) [place] % (Auto) Eos % (Auto) Baso % (Auto) Lymph # (Auto) [place] # (Auto) Eos # (Auto) Baso # (Auto) Absolute Neuts (auto) pO2 VBG pH VBG pCO2 VBG HCO3 VBG Total CO2 VBG O2 Sat (Calc) VBG Base Excess VBG Potassium Glucose Lactate FiO2 Crit Value Called To Crit Value Called By Blood Gas Notified Time Sodium Potassium Chloride Carbon Dioxide Anion Gap BUN Creatinine Est GFR ( Amer) Est GFR (Non-Af Amer) POC Glucose (mg/dL) 146 H Random Glucose Lactic Acid Calcium Total Bilirubin AST ALT Alkaline Phosphatase Troponin I Total Protein Albumin Globulin Albumin/Globulin Ratio Lipase Venous Blood Potassium Blood Type Antibody Screen BBK History Checked
[2018-08-09] MEDS ORDERED: Pantoprazole 40 mg EC Tab PO SCH (06:00)
[2018-08-09] MEDS ORDERED: Lidocaine 5% Patch TD SCH (10:00)
[2018-08-09 10:28] LABS: BASO # 0.03 K/mm3 (0.0-2.0); BASO % 0.4 % (0.0-3.0); EOS # 0.1 (0.0-0.7); EOS % 1.9 % (1.5-5.0); HEMOGLOBIN 10.3 g/dL (14.0-18.0); LYMPH # 2.1 (1.2-3.4); MEAN CELL VOLUME 92.1 fl (80.0-105.0); MEAN CORPUSCULAR HEMOGLOBIN 28.1 pg (25.0-35.0); MEAN CORPUSCULAR HGB CONC 30.5 g/dl (31.0-37.0); MEAN PLATELET VOLUME 11.7 fl (7.0-11.0); MONO # 0.6 (0.1-0.6); MONO % 7.9 % (1.0-6.0); RBC 3.67 10^6/uL (3.5-6.1); RED CELL DISTRIBUTION WIDTH 15.8 % (11.5-14.5)
[2018-08-09 10:36] LABS: ALB/GLOB RATIO 1.1 (1.1-1.8); ALBUMIN 3.5 g/dL (3.0-4.8); CALCIUM 8.5 mg/dL (8.4-10.5)
--- NOTE | 2018-08-09 10:56 | CP.PCM.CON ---
History of Present Illness - History of Present Illness History of Present Illness: Podiatry consult note for attending Dr. Rubin, 78 y/o male Patient with PMHx of IDDM, HTN, HLD, BPH, Dementia, GERD and ESRD, multiple sinus arrests and pacemaker placement November 2017 was seeen and evaluated at bedside for left deep tissue injury to the heel and necrotic wound to the tip of the left hallux. Patient was seen in dialysis, and was lethargic during evaluation. Patient is followed by Dr. Rubin in the wound care center. Unable to obtain any other information from the patient. PMHx: ESRD, IDDM, HLD, Dementia, BPH, HTN, GERD, multiple sinus arrests and pacemaker placement November 2017 PSHx: left UE AVF, left hand 5th digit amputation following ischemia from AVF complication, left third toe amputation 2016. Pacemaker placement November 2017. Allergies: N.K.D.A Social Hx: former tobacco user, denies EtOH or illicit drug use Review of Systems - Review of Systems All systems: reviewed and no additional remarkable complaints except Review of Systems: As per HPI 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 - PULMONARY Hx Respiratory Disorders: Yes (respiratory distress) Hx Pneumonia: Yes - NEUROLOGICAL Hx Neurological Disorder: Yes (NEUROPATHY BILATERAL LE) Hx Dementia: Yes Hx Transient Ischemic Attacks (TIA): Yes - HEENT Hx HEENT Problems: Yes (eyeglasses) - RENAL Hx Chronic Kidney Disease: Yes (esrd) Hx Dialysis: Yes ([facility] ) Date of Last Dialysis Treatment: 08/07/18 - ENDOCRINE/METABOLIC Hx Endocrine Disorders: Yes (hypoparathyroidism) - HEMATOLOGICAL/ONCOLOGICAL Hx Blood Disorders: Yes (sepsis) Hx Anemia: Yes (blood transfusion) - INTEGUMENTARY Hx Dermatological Problems: Yes Other/Comment: diabetic foot ulcers multiple left foot, amputation and debridement of necrotic tissue 02/01/18 - MUSCULOSKELETAL/RHEUMATOLOGICAL Hx Falls: Yes - GASTROINTESTINAL Hx Gastrointestinal Disorders: Yes (obese) Other/Comment: CONSTIPATION,INCONTINENT - GENITOURINARY/GYNECOLOGICAL Hx Genitourinary Disorders: Yes (oliguria) Hx Prostate Problems: Yes (BPH) - PSYCHIATRIC Hx Substance Use: No - SURGICAL HISTORY Hx Surgeries: Yes Hx Amputation: Yes (left ft 5th toe 02/01/18,AMPUTATED ALL LEFT FOOT TOES.) Other/Comment: sriram av shunt - ANESTHESIA Hx Anesthesia Reactions: No Hx Malignant Hyperthermia: No Meds Allergies/Adverse Reactions: Allergies Allergy/AdvReac Type Severity Reaction Status Date / Time No Known Allergies Allergy Verified 08/08/18 20:15 - Medications Medications: Current Medications Acetaminophen (Tylenol 325mg Tab) 650 mg PO Q6 PRN PRN Reason: TEMP>=99.5F Last Admin: 08/09/18 08:31 Dose: 650 mg Aspirin (Aspirin) 325 mg PO DAILY [facility] Atorvastatin Calcium (Lipitor) 40 mg PO HS [facility] Last Admin: 08/08/18 21:24 Dose: 40 mg Calcium Acetate (Phoslo) 667 mg PO TID [facility] Last Admin: 08/09/18 10:32 Dose: Not Given Carvedilol (Coreg) 12.5 mg PO BID [facility] Last Admin: 08/08/18 18:21 Dose: 12.5 mg Docusate Sodium (Colace) 100 mg PO TID [facility] Last Admin: 08/09/18 10:32 Dose: Not Given Donepezil HCl (Aricept) 10 mg PO HS [facility] Last Admin: 08/08/18 21:25 Dose: 10 mg Gabapentin (Neurontin) 100 mg PO HS [facility]; Protocol Last Admin: 08/08/18 21:24 Dose: 100 mg Insulin Detemir (Levemir) 5 unit SC Q12 [facility] Last Admin: 08/08/18 22:43 Dose: Not Given Levalbuterol HCl (Xopenex) 0.63 mg IH [id number] [facility] Last Admin: 08/09/18 07:34 Dose: 0.63 mg Lidocaine (Lidoderm) 1 ea TD DAILY [facility] Memantine (Namenda) 10 mg PO BID [facility] Last Admin: 08/08/18 18:22 Dose: 10 mg Midodrine (Proamatine) 10 mg PO Q8 [facility] Last Admin: 08/09/18 05:36 Dose: 10 mg Pantoprazole Sodium (Protonix Ec Tab) 40 mg PO 0600 [facility] Last Admin: 08/09/18 05:36 Dose: 40 mg Quetiapine Fumarate (Seroquel) 25 mg PO HS [facility]; Protocol Last Admin: 08/08/18 21:25 Dose: 25 mg Tamsulosin HCl (Flomax) 0.4 mg PO DAILY [facility] Physical Exam - Constitutional Appears: Well, Non-toxic, No Acute Distress - Head Exam Head Exam: ATRAUMATIC, NORMOCEPHALIC - Extremities Exam Additional comments: Bilateral LE focused Exam: Vasc: non-palpable DP and PT pulses, Cap refill time < 3 sec in all digits, skin temperature gradient: warm to cool from proximal to distal. Neuro: Protective sensation diminished. Gross sensation intact b/l. DERM: Necrotic ulcer on the dorsum of the left hallux nail bed measuring approximately 1.5 cm x 3 cm with wound bed completely necrotic, covered by dry black eschar, no active drainage, no malodor, no tunneling or tracking, no purulent drainage, No erythema noted at the dorsum of the left forefoot, no clinical signs of infection, deep tissue injury noted to the left heel, no active drainage, no malodor, no tunneling or tracking, no purulent drainage, No erythema noted at the dorsum of the left forefoot, no clinical signs of infection MSK: Pain on palpation to the left heel. - Neurological Exam Neurological exam: Alert, Oriented x3 - Psychiatric Exam Psychiatric exam: Normal Affect, Normal Mood Results - Vital Signs Recent Vital Signs: Last Vital Signs Temp 97.8 F 08/09/18 06:00 Pulse 61 08/09/18 06:00 Resp 20 08/09/18 06:00 BP 124/57 L 08/09/18 06:00 Pulse Ox 95 08/09/18 06:00 - Labs Result Diagrams: 08/09/18 10:00 08/09/18 10:00 Labs: Laboratory Results - last 24 hr 08/08/18 08/08/18 08/08/18 12:50 12:50 12:55 WBC 8.9 D RBC 4.26 Hgb 12.0 L Hct 40.0 L MCV 93.9 MCH 28.2 MCHC 30.0 L RDW 16.0 H Plt Count 193 MPV 11.7 H Neut % (Auto) 62.3 Lymph % (Auto) 27.9 [place] % (Auto) 7.5 H Eos % (Auto) 1.9 Baso % (Auto) 0.4 Lymph # (Auto) 2.5 [place] # (Auto) 0.7 H Eos # (Auto) 0.2 Baso # (Auto) 0.04 Absolute Neuts (auto) 5.54 pO2 28 L VBG pH 7.35 VBG pCO2 57.0 VBG HCO3 31.5 H VBG Total CO2 VBG O2 Sat (Calc) 46.0 VBG Base Excess 4.3 H VBG Potassium Glucose Lactate FiO2 Crit Value Called To Crit Value Called By Blood Gas Notified Time Sodium 139 Potassium 5.1 H Chloride 93 L Carbon Dioxide 29 Anion Gap 22 H BUN 56 H Creatinine 5.6 H Est GFR ( Amer) 12 Est GFR (Non-Af Amer) 10 POC Glucose (mg/dL) Random Glucose 169 H Lactic Acid Calcium 8.9 Phosphorus Magnesium Total Bilirubin 0.5 AST 19 ALT 11 Alkaline Phosphatase 89 Troponin I 0.07 D Total Protein 8.1 Albumin 4.3 Globulin 3.8 Albumin/Globulin Ratio 1.1 Lipase 532 H Venous Blood Potassium Blood Type Antibody Screen BBK History Checked 08/08/18 08/08/18 08/08/18 12:55 13:47 16:10 WBC RBC Hgb Hct MCV MCH MCHC RDW Plt Count MPV Neut % (Auto) Lymph % (Auto) [place] % (Auto) Eos % (Auto) Baso % (Auto) Lymph # (Auto) [place] # (Auto) Eos # (Auto) Baso # (Auto) Absolute Neuts (auto) pO2 25 L 49 VBG pH 7.36 7.32 VBG pCO2 54.0 58.0 VBG HCO3 30.5 H 29.9 H VBG Total CO2 32.2 H 31.7 H VBG O2 Sat (Calc) 41.3 82.9 H VBG Base Excess 3.7 H 2.4 H VBG Potassium 4.9 4.6 Glucose 177 H 249 H Lactate 2.2 H 2.2 H FiO2 21.0 21.0 Crit Value Called To Danae caballero Crit Value Called By Etq Blood Gas Notified Time 1625 Sodium 136.0 137.0 Potassium Chloride 95.0 L 97.0 L Carbon Dioxide Anion Gap BUN Creatinine Est GFR ( Amer) Est GFR (Non-Af Amer) POC Glucose (mg/dL) Random Glucose Lactic Acid Calcium Phosphorus Magnesium Total Bilirubin AST ALT Alkaline Phosphatase Troponin I Total Protein Albumin Globulin Albumin/Globulin Ratio Lipase Venous Blood Potassium 4.9 4.6 Blood Type O POSITIVE Antibody Screen Negative BBK History Checked Patient has bt 08/08/18 08/08/18 08/08/18 17:03 21:02 21:02 WBC RBC Hgb Hct MCV MCH MCHC RDW Plt Count MPV Neut % (Auto) Lymph % (Auto) [place] % (Auto) Eos % (Auto) Baso % (Auto) Lymph # (Auto) [place] # (Auto) Eos # (Auto) Baso # (Auto) Absolute Neuts (auto) pO2 VBG pH VBG pCO2 VBG HCO3 VBG Total CO2 VBG O2 Sat (Calc) VBG Base Excess VBG Potassium Glucose Lactate FiO2 Crit Value Called To Crit Value Called By Blood Gas Notified Time Sodium Potassium Chloride Carbon Dioxide Anion Gap BUN Creatinine Est GFR ( Amer) Est GFR (Non-Af Amer) POC Glucose (mg/dL) 262 H Random Glucose Lactic Acid 1.4 Calcium Phosphorus Magnesium Total Bilirubin AST ALT Alkaline Phosphatase Troponin I 0.06 Total Protein Albumin Globulin Albumin/Globulin Ratio Lipase Venous Blood Potassium Blood Type Antibody Screen BBK History Checked 08/08/18 08/09/18 08/09/18 21:58 07:32 10:00 WBC 7.0 D RBC 3.67 Hgb 10.3 L Hct 33.8 L MCV 92.1 MCH 28.1 MCHC 30.5 L RDW 15.8 H Plt Count 164 MPV 11.7 H Neut % (Auto) 59.8 Lymph % (Auto) 30.0 Kent % (Auto) 7.9 H Eos % (Auto) 1.9 Baso % (Auto) 0.4 Lymph # (Auto) 2.1 [place] # (Auto) 0.6 Eos # (Auto) 0.1 Baso # (Auto) 0.03 Absolute Neuts (auto) 4.16 pO2 VBG pH VBG pCO2 VBG HCO3 VBG Total CO2 VBG O2 Sat (Calc) VBG Base Excess VBG Potassium Glucose Lactate FiO2 Crit Value Called To Crit Value Called By Blood Gas Notified Time Sodium Potassium Chloride Carbon Dioxide Anion Gap BUN Creatinine Est GFR ( Amer) Est GFR (Non-Af Amer) POC Glucose (mg/dL) 146 H 82 Random Glucose Lactic Acid Calcium Phosphorus Magnesium Total Bilirubin AST ALT Alkaline Phosphatase Troponin I Total Protein Albumin Globulin Albumin/Globulin Ratio Lipase Venous Blood Potassium Blood Type Antibody Screen BBK History Checked 08/09/18 10:00 WBC RBC Hgb Hct MCV MCH MCHC RDW Plt Count MPV Neut % (Auto) Lymph % (Auto) Kent % (Auto) Eos % (Auto) Baso % (Auto) Lymph # (Auto) Kent # (Auto) Eos # (Auto) Baso # (Auto) Absolute Neuts (auto) pO2 VBG pH VBG pCO2 VBG HCO3 VBG Total CO2 VBG O2 Sat (Calc) VBG Base Excess VBG Potassium Glucose Lactate FiO2 Crit Value Called To Crit Value Called By Blood Gas Notified Time Sodium 139 Potassium 4.2 Chloride 96 L Carbon Dioxide 26 Anion Gap 22 H BUN 71 H Creatinine 7.3 H Est GFR ( Amer) 9 Est GFR (Non-Af Amer) 7 POC Glucose (mg/dL) Random Glucose 133 H Lactic Acid Calcium 8.5 Phosphorus 7.1 H Magnesium 1.9 Total Bilirubin 0.4 AST 15 L D ALT 15 Alkaline Phosphatase 73 Troponin I Total Protein 6.8 Albumin 3.5 Globulin 3.2 Albumin/Globulin Ratio 1.1 Lipase Venous Blood Potassium Blood Type Antibody Screen BBK History Checked Assessment & Plan - Assessment and Plan (Free Text) Assessment: 78 y/o male patient seen for left heel deep tissue injury and necrotic wound to the left hallux Plan: Patient seen and evaluated Plan discussed with Dr. Rubin Chart, labs and vitals reviewed- afebrile, absent leukocytosis Foot X-ray: no acute findings Unable to order MRI- patient has pacemaker Wounds dressed with xeroform, DSD Ordered Multipodus boots Continue medical management No plan for podiatric intervention at this time Podiatry will continue to follow patient while in house - Date & Time Date: 08/09/18 Time: 11:05
[2018-08-09] MEDS: Insulin Detemir 100 units/ml Vial (Levemir) SC SCH (11:31)
--- NOTE | 2018-08-09 15:32 | CP.PCM.PCO ---
Physician Communication Note - Physician Communication Note Physician Communication Note: Pt. seen in bed resting comfortable, denied fever, chills, foot pain,
--- NOTE | 2018-08-09 15:35 | CP.PCM.PCO ---
Additional Comments - Additional Comments Additional Comments: Pt admitted after hypotensive episode at home, and lactate 2.2, is orthostatic, blood cx pending, wound cx pending, ARt US left lower extremity pending. Noted to have right foot heel ulcer, currently dressed, per podiatry. PT eval pending.
--- NOTE | 2018-08-09 17:01 | CON ---
DATE OF CONSULTATION: 08/09/2018 REASON FOR CONSULTATION: Altered mental status, low blood pressure, ESRD. HISTORY OF PRESENTING ILLNESS: An 78-year-old male known to me from outpatient hemodialysis. The patient was brought to the emergency room by family because of low blood pressure at home, also complaining of left foot pain. As per the emergency room note, blood pressure was reported at 90/40 by the visiting nurse at home. His blood pressure was 127/53 at the time of presentation to the emergency room. There was no complaint of any abdominal pain, nausea or vomiting. No history of any chest pain, shortness of breath or cough. No other complaints. Currently, the patient is very irritable, cantankerous, denies any pain. He was found to be normotensive, afebrile in the emergency room. His blood work showed WBC count of 8.9. His lactic acid level was somewhat elevated.. The patient was admitted to rule out sepsis. PAST MEDICAL AND SURGICAL HISTORY: NIDDM, hypertension, ESRD, left upper extremity AV fistula, severe dementia, TIA, CHF, COPD. FAMILY HISTORY: Hypertension. SOCIAL HISTORY: Ex-smoker, no alcohol use, no IV drug abuse. ALLERGIES: NO KNOWN DRUG ALLERGIES. MEDICATIONS AT HOME: Included Flomax, Seroquel, Protonix, ProAmatine 5 t.i.d., Namenda 10 b.i.d., Xopenex, insulin, Aricept, Colace, Coreg 12.5 b.i.d.?, PhosLo, Lipitor, aspirin. REVIEW OF SYSTEMS: Currently, the patient's systems review is limited because the patient is not cooperative. PHYSICAL EXAMINATION: GENERAL: Obese, elderly male lying in bed in the dialysis unit. VITAL SIGNS: Blood pressure 124/57, heart rate 67, respiratory rate 18, temperature 98.3. HEENT: Normocephalic, atraumatic, positive pallor. NECK: Supple, no JVD. LUNGS: Bilateral equal air entry, bilateral equal expansion. CARDIAC: S1 and S2, regular rate rhythm, no murmur, no rub. ABDOMEN: Obese, distended, soft, nontender, bowel sounds present. EXTREMITIES: No lower extremity edema. INTAKE AND OUTPUT: Not charted. LABORATORY DATA: WBC 7, hemoglobin 10.3, hematocrit 34, platelets 164. Sodium 139, potassium 4.2, chloride 96, CO2 of 26, BUN 71, creatinine 7.3, glucose 133, calcium 8.5, phosphorus 7.1, magnesium 1.9, AST 15, ALT 15, albumin 3.5. Blood cultures, no growth so far. CT of the abdomen and pelvis without contrast, mural thickening in the bladder, no acute intra-abdominal findings. CURRENT MEDICATIONS: Aricept, aspirin, Colace, Coreg 12.5 b.i.d., Flomax 0.4, insulin, Lipitor, Namenda 10 b.i.d., Neurontin 100, PhosLo t.i.d., ProAmatine 10 t.i.d., Protonix, Seroquel. ASSESSMENT: 1. Altered mental status, history of advanced dementia., baseline. 2. Transient hypotension,? Currently pressure seems to be okay. 3. History of non-insulin dependant diabetes mellitus. 4. End-stage renal disease. 5. Anemia of chronic kidney disease. 6. Hyperphosphatemia/secondary hyperparathyroidism. PLAN: 1. Dialysis today. 2. Monitor fingersticks. 3. Follow up cultures. 4. Early discharge Yadira Fox MD
[2018-08-09 17:25] VITALS: BP 117/49
[2018-08-09 19:00] VITALS: PULSE 93; RESP 19; TEMP 97.5; O2SAT 96
== END 2018-08-09 19:50 | disposition home health service (06) ==
LOC: ED 12:06 → ERH 13:59 → 3RNO 15:42
PROVIDERS: ADMIT Internal Medicine; ATTEND Internal Medicine
DX: I95.9 Hypotension, unspecified (principal); E11.621 Type 2 diabetes mellitus with foot ulcer; L97.419 Non-pressure chronic ulcer of right heel and midfoot with unspecified severity; I13.2 Hypertensive heart and chronic kidney disease with heart failure and with stage 5 chronic kidney disease, or end stage renal disease; N18.6 End stage renal disease; I50.9 Heart failure, unspecified; E11.22 Type 2 diabetes mellitus with diabetic chronic kidney disease; N25.81 Secondary hyperparathyroidism of renal origin; D63.1 Anemia in chronic kidney disease; E78.00 Pure hypercholesterolemia, unspecified; F03.90 Unspecified dementia, unspecified severity, without behavioral disturbance, psychotic disturbance, mood disturbance, and anxiety; J44.9 Chronic obstructive pulmonary disease, unspecified; N40.0 Benign prostatic hyperplasia without lower urinary tract symptoms; E78.5 Hyperlipidemia, unspecified; K21.9 Gastro-esophageal reflux disease without esophagitis; Z87.891 Personal history of nicotine dependence; Z99.2 Dependence on renal dialysis; E83.39 Other disorders of phosphorus metabolism; G89.29 Other chronic pain; R41.82 Altered mental status, unspecified; Z86.73 Personal history of transient ischemic attack (TIA), and cerebral infarction without residual deficits; R74.8 Abnormal levels of other serum enzymes; Z79.4 Long term (current) use of insulin; Z89.422 Acquired absence of other left toe(s); Z95.0 Presence of cardiac pacemaker; Z87.01 Personal history of pneumonia (recurrent)
CPT/HCPCS: 36415; 71046; 73630; 74176; 80053; 82803; 82948; 83605; 83690; 83735; 84100; 84484; 85025; 86850; 86900; 87040; 93005; 94640; 99285; G0378; J7030